=== PATIENT | female | born 1935 | race Caucasian/White ===

== ENCOUNTER → 2017-09-21 | Outpatient (CLI) | payer MEDICARE, MEDICAID, SELFPAY | PROVIDERS: Visit Provider Internal Medicine | DX: R06.02 Shortness of breath (principal); R93.1 Abnormal findings on diagnostic imaging of heart and coronary circulation; I36.1 Nonrheumatic tricuspid (valve) insufficiency; I27.20 Pulmonary hypertension, unspecified; E11.9 Type 2 diabetes mellitus without complications; I10 Essential (primary) hypertension | CPT/HCPCS: 78452; 93017; A9502; J2785 ==

== ENCOUNTER 2017-09-26 12:00 | Inpatient (IN) | payer MEDICARE, MEDICAID, SELFPAY | END 2017-09-29 11:17 | disposition home or self-care (01) | DRG 243 | PROVIDERS: Admitting Provider Internal Medicine Adolescent Medicine; Emergency Provider Family Medicine; Family Provider Internal Medicine Adolescent Medicine; Visit Provider Internal Medicine Adolescent Medicine | DX: I49.5 Sick sinus syndrome (principal); N39.0 Urinary tract infection, site not specified; E11.22 Type 2 diabetes mellitus with diabetic chronic kidney disease; N18.3 Chronic kidney disease, stage 3 (moderate); I25.119 Atherosclerotic heart disease of native coronary artery with unspecified angina pectoris; B96.20 Unspecified Escherichia coli [E. coli] as the cause of diseases classified elsewhere; I12.9 Hypertensive chronic kidney disease with stage 1 through stage 4 chronic kidney disease, or unspecified chronic kidney disease; Z45.02 Encounter for adjustment and management of automatic implantable cardiac defibrillator; Z72.0 Tobacco use; Z79.4 Long term (current) use of insulin | CPT/HCPCS: 33208; 36415; 71010; 76000; 80048; 80053; 81001; 82550; 82553; 82962; 84436; 84443; 84479; 84484; 85025; 85347; 87086; 87088; 87186; 92928; 93005; 93041; 93458; 96365; 96367; 96375; 99152; 99285; C1725; C1769; C1785; C1876; C1898; C9600; J1644; J2405; Q9967 ==

== ENCOUNTER → 2018-01-03 12:51 | Outpatient (CLI) | payer MEDICARE, MEDICAID, SELFPAY ==
--- NOTE | 2018-01-03 13:06 | US_ITS ---
US Arterial Ankle Brachial Ind COMPARISON: None HISTORY: Hypertension breast pain both legs diabetes, claudication both legs TECHNIQUE: Segmental blood pressure evaluation and Doppler waveforms of both legs. FINDINGS: The blood pressure right arm is 168. Pressures right leg show the thigh be 177 calf to 10 posterior tibia 190 dorsalis pedis 166 and digital pressure 137. The right JAKY is 1.0. The left brachial pressure is 163. Pressures left leg show the thigh be to moderate calf 227 posterior tibial noncompressible dorsalis pedis 160 and digital pressure 144. The left JAKY is 0.95. IMPRESSION: Essentially normal ABIs bilaterally borderline low digital pressures and noncompressible left posterior tibial likely due to significant arterial sclerotic calcification compatible with patient's known diabetes
== END ==
PROVIDERS: PCP Internal Medicine Adolescent Medicine; Visit Provider Internal Medicine
DX: M79.604 Pain in right leg (principal); M79.605 Pain in left leg; I70.213 Atherosclerosis of native arteries of extremities with intermittent claudication, bilateral legs
CPT/HCPCS: 93922

== ENCOUNTER 2019-02-04 15:17 | Emergency (ER) | payer MEDICARE, MEDICAID, SELFPAY ==
[2019-02-04 15:17] VITALS: BP 82/47; PULSE 72; RESP 18; TEMP 36.6; O2SAT 99; BMI 26.5
--- NOTE | 2019-02-04 15:28 | CT_ITS ---
CT head/brain wo con HISTORY: ITS.REASON: sudden onset of dizziness ORDERING PHYSICIAN: Mark Magaña MD PATIENT AGE: 83 years COMPARISON: None TECHNIQUE: Axial images obtained without contrast. Brain and bone windows reviewed. All CT scans at the facility use one or more dose reduction, viz: automated exposure control, ma/kV adjustment per patient size (including targeted exams where dose is matched to indication, i.e. head), or iterative reconstruction technique. FINDINGS: No midline shift, mass effect, intracranial hemorrhage, hydrocephalus, or extra-axial fluid collection is evident. There is prominence of the supravermian cistern. There is a cavum septa pellucida present as a normal variant There are mild periventricular ischemic gliotic changes. The calvarium has an unremarkable appearance. No mastoid effusion. No sinus air-fluid levels.. IMPRESSION: No change with no acute intracranial findings. Please see above for details
--- NOTE | 2019-02-04 15:28 | XR_ITS ---
XR acute abdomen series HISTORY: ITS.REASON: dizzy and nausea ORDERING PHYSICIAN: Mark Magaña MD PATIENT AGE: 83 years COMPARISON: None TECHNIQUE: Upright view of the chest is performed along with upright and supine views of the abdomen and pelvis. FINDINGS: An upright view of the chest shows no acute cardiac or pulmonary pathology. The lungs are clear. Cardiac pacemaker is present from left subclavian approach. Nonspecific nonobstructive bowel gas pattern multiple calcifications are present in the left upper quadrant and in the left aspect pelvis. No free air. IMPRESSION: No acute finding
--- NOTE | 2019-02-04 15:30 | HMH.EDDIZZ ---
ED Disposition Clinical Impression: Pre-syncope, Coronary artery disease, Diabetes, Cardiogenic shock, Acute renal insufficiency, Anemia Disposition: Xfer Short-Term Hosp Condition on Discharge: Fair Referrals: Alexy Rivera MD [Primary Care Provider] - Forms: Transfer Record - ED - Critical Care Critical Care Time: No Attestation: On 02/04/19, the high probability of a clinically significant, sudden or life threatening deterioration of the following system(s) required my full and direct attention, intervention and personal management. The time I documented below is in addition to time spent performing reported procedures but includes the following listed in this critical care notation. Medical Decision Making - Thomas Inquiry Pt receiving controlled substance: No Thomas was queried for this patient: No Vital Signs: 02/04/19 15:17 02/04/19 16:17 02/04/19 16:30 Temperature 97.8 F Temperature Source Oral Pulse Rate [Left Radial] 72 70 65 Respiratory Rate 18 20 Blood Pressure [Right Arm] 82/47 L 69/41 L 73/39 L Blood Pressure Mean [Right Arm] 58 50 50 Blood Pressure Source [Right Arm] Automatic Cuff Automatic Cuff Blood Pressure Position [Right Arm] Sitting Sitting 02 Sat by Pulse Oximetry 99 99 93 L Oxygen Delivery Method Room Air Room Air 02/04/19 17:24 Temperature Temperature Source Pulse Rate [Left Radial] 70 Respiratory Rate Blood Pressure [Right Arm] 69/40 L Blood Pressure Mean [Right Arm] 49 Blood Pressure Source [Right Arm] Automatic Cuff Blood Pressure Position [Right Arm] Sitting 02 Sat by Pulse Oximetry 100 Oxygen Delivery Method Room Air - Lab Data Lab Results 02/04/19 15:23: WBC 9.3, RBC 3.60 L, Hgb 10.1 L, Hct 30.4 L, MCV 84.4, MCH 28.1, MCHC 33.3, RDW 14.7, Plt Count 216, MPV 7.3 L, Neut % (Auto) 69.6, Lymph % (Auto) 24.4, [place] % (Auto) 3.5, Eos % (Auto) 2.3, Baso % (Auto) 0.2, Neut # (Auto) 6.5, Lymph # (Auto) 2.3, [place] # (Auto) 0.3, Eos # (Auto) 0.2, Baso # (Auto) 0.0 02/04/19 15:23: Sodium 132 L, Potassium 4.6, Chloride 99, Carbon Dioxide 17 L, Anion Gap 20.6 H, BUN 43 H, Creatinine 2.32 H, Estimated Creat Clear 20, Estimated GFR 20 L, Est GFR ( Amer) 24 L, Glucose 225 H, Calcium 8.5, Magnesium 1.0 L, Total Bilirubin 0.2, AST 11 L, ALT 17, Alkaline Phosphatase 77, Total Creatine Kinase 32, CK-MB (CK-2) < 0.5, CK-MB (CK-2) Rel Index 1.6, Troponin I < 0.02, Total Protein 7.1, Albumin 3.5, Globulin 3.6 H, Albumin/Globulin Ratio 1.0 L, Lipase 21 L 02/04/19 15:23: B-Natriuretic Peptide 164 H 02/04/19 15:45: Urine Color Yellow, Urine Appearance Clear, Urine pH 5.5, Ur Specific [place] 1.020, Urine Protein Trace, Urine Glucose (UA) Negative, Urine Ketones Negative, Urine Blood Negative, Urine Nitrate Negative, Urine Bilirubin Negative, Urine Urobilinogen 0.2, Ur Leukocyte Esterase Trace, Urine WBC 10-20, Ur Squamous Epith Cells 3-5, Amorphous Sediment 1+, Urine Bacteria 2+ Result diagrams: 02/04/19 15:23 02/04/19 15:23 Orders (Tests/Meds): ED MEDICATIONS Generic Name Dose Route Start Last Admin Trade Name Freq PRN Reason Stop Dose Admin Sodium Chloride 1,000 mls @ 999 mls/hr 02/04/19 15:45 02/04/19 15:52 Sod Chlor 0.9% 1000ml Bag IV 02/04/19 16:45 999 mls/hr .Q1H1M VALENTINA Administration Sodium Chloride 1,000 mls @ 150 mls/hr 02/04/19 16:45 02/04/19 16:34 Sod Chlor 0.9% 1000ml Bag IV 03/06/19 16:44 150 mls/hr .Q6H40M VALENTINA Administration Sodium Chloride 1,000 mls @ 150 mls/hr 02/04/19 16:45 Sod Chlor 0.9% 1000ml Bag IV 03/06/19 16:44 .Q6H40M VALENTINA Norepinephrine Bitartrate 8 mg 258 mls @ 3.87 mls/hr 02/04/19 18:00 02/04/19 17:50 / Dextrose IV 03/06/19 17:59 2 mcg/min .Q24H VALENTINA 3.87 mls/hr Administration Protocol 2 MCG/MIN Magnesium Oxide 400 mg 02/04/19 21:00 Mag-Ox 400mg Tab PO 03/06/19 20:59 BID VALENTINA Discontinued Medications Generic Name Dose Route Start Last Admin Trade Name Freq PRN Reason
--- NOTE | 2019-02-04 15:33 | ED_ITS ---
ED Disposition Clinical Impression: Pre-syncope, Coronary artery disease, Diabetes, Cardiogenic shock, Acute renal insufficiency, Anemia Disposition: Xfer Short-Term Hosp Condition on Discharge: Fair Referrals: Alexy Rivera MD [Primary Care Provider] - Forms: Transfer Record - ED - Critical Care Critical Care Time: No Attestation: On 02/04/19, the high probability of a clinically significant, sudden or life threatening deterioration of the following system(s) required my full and direct attention, intervention and personal management. The time I documented below is in addition to time spent performing reported procedures but includes the following listed in this critical care notation. Medical Decision Making - Thomas Inquiry Pt receiving controlled substance: No Thomas was queried for this patient: No Vital Signs: 02/04/19 15:17 02/04/19 16:17 02/04/19 16:30 Temperature 97.8 F Temperature Source Oral Pulse Rate [Left Radial] 72 70 65 Respiratory Rate 18 20 Blood Pressure [Right Arm] 82/47 L 69/41 L 73/39 L Blood Pressure Mean [Right Arm] 58 50 50 Blood Pressure Source [Right Arm] Automatic Cuff Automatic Cuff Blood Pressure Position [Right Arm] Sitting Sitting 02 Sat by Pulse Oximetry 99 99 93 L Oxygen Delivery Method Room Air Room Air 02/04/19 17:24 Temperature Temperature Source Pulse Rate [Left Radial] 70 Respiratory Rate Blood Pressure [Right Arm] 69/40 L Blood Pressure Mean [Right Arm] 49 Blood Pressure Source [Right Arm] Automatic Cuff Blood Pressure Position [Right Arm] Sitting 02 Sat by Pulse Oximetry 100 Oxygen Delivery Method Room Air - Lab Data Lab Results 02/04/19 15:23: WBC 9.3, RBC 3.60 L, Hgb 10.1 L, Hct 30.4 L, MCV 84.4, MCH 28.1, MCHC 33.3, RDW 14.7, Plt Count 216, MPV 7.3 L, Neut % (Auto) 69.6, Lymph % (Auto) 24.4, [place] % (Auto) 3.5, Eos % (Auto) 2.3, Baso % (Auto) 0.2, Neut # (Auto) 6.5, Lymph # (Auto) 2.3, [place] # (Auto) 0.3, Eos # (Auto) 0.2, Baso # (Auto) 0.0 02/04/19 15:23: Sodium 132 L, Potassium 4.6, Chloride 99, Carbon Dioxide 17 L, Anion Gap 20.6 H, BUN 43 H, Creatinine 2.32 H, Estimated Creat Clear 20, Estimated GFR 20 L, Est GFR ( Amer) 24 L, Glucose 225 H, Calcium 8.5, Magnesium 1.0 L, Total Bilirubin 0.2, AST 11 L, ALT 17, Alkaline Phosphatase 77, Total Creatine Kinase 32, CK-MB (CK-2) < 0.5, CK-MB (CK-2) Rel Index 1.6, Troponin I < 0.02, Total Protein 7.1, Albumin 3.5, Globulin 3.6 H, Albumin/Globulin Ratio 1.0 L, Lipase 21 L 02/04/19 15:23: B-Natriuretic Peptide 164 H 02/04/19 15:45: Urine Color Yellow, Urine Appearance Clear, Urine pH 5.5, Ur Specific [place] 1.020, Urine Protein Trace, Urine Glucose (UA) Negative, Urine Ketones Negative, Urine Blood Negative, Urine Nitrate Negative, Urine Bilirubin Negative, Urine Urobilinogen 0.2, Ur Leukocyte Esterase Trace, Urine WBC 10-20, Ur Squamous Epith Cells 3-5, Amorphous Sediment 1+, Urine Bacteria 2+ Result diagrams: 02/04/19 15:23 02/04/19 15:23 Orders (Tests/Meds): ED MEDICATIONS Generic Name Dose Route Start Last Admin Trade Name Freq PRN Reason Stop Dose Admin Sodium Chloride 1,000 mls @ 999 mls/hr 02/04/19 15:45 02/04/19 15:52 Sod Chlor 0.9% 1000ml Bag IV 05
--- NOTE | 2019-02-04 15:34 | PC.NURSE ---
notified of pt having neck pain
--- NOTE | 2019-02-04 15:39 | CT_ITS ---
CT CERVICAL SPINE WITHOUT CONTRAST CT RECONSTRUCTIONS HISTORY:Dizziness and neck pain ORDERING PHYSICIAN: Mark Magaña MD PATIENT AGE: 83 years COMPARISON: None Technique: All CT scans at the facility use one or more dose reduction, viz: automated exposure control, ma/kV adjustment per patient size (including targeted exams where dose is matched to indication, i.e. head), or iterative reconstruction technique PROCEDURE: Axial spiral CT scanning performed of the cervical spine beginning at the base of the skull and continuing to the upper T-spine. 3-D multiplanar reconstruction with 3-D manipulation of volumetric data set in image rendering was completed by the radiologist and/or technologist with the supervision of the radiologist on independent workstation. FINDINGS: Normal alignment. No fracture or dislocation. C2-C3: Unremarkable. C3-C4: Degenerative disc disease. C4-C5: Degenerative disc. C5-C6: Degenerative disc disease with uncovertebral hypertrophic change with left foraminal narrowing. C6-C7: Unremarkable. C7-T1: Mild anterolisthesis of C7 with mild changes disease. There is slight decrease in height anteriorly at T1 and T3 unchanged from 09/14/18. There are fibrotic changes in the lung apices. IMPRESSION: Multilevel cervical spondylosis with degenerative changes as detailed above. No acute fracture.
[2019-02-04 15:44] LABS: Basophils % 0.2 % (0.1-2.0); Eosinophils # 0.2 K/mm3 (0.0-0.4); Eosinophils % 2.3 % (0.1-12.0); Hematocrit 30.4 % (37.0-47.0); Hemoglobin 10.1 g/dL (12.2-16.2); Lymphocytes # 2.3 K/mm3 (0.7-4.5); Lymphocytes % 24.4 % (10-50); Mean Corpuscular HGB Conc 33.3 g/dL (31.8-35.4); Mean Corpuscular Hemoglobin 28.1 pg (27.0-31.2); Mean Corpuscular Volume 84.4 fl (81-99); Mean Platelet Volume 7.3 fl (7.4-10.4); Monocytes # 0.3 K/mm3 (0.1-1.0); Monocytes % 3.5 % (1.7-9.3); Neutrophils # 6.5 K/mm3 (1.8-7.8); Neutrophils % 69.6 % (37.0-80.0); Platelet Count 216 K/mm3 (142-424); Red Cell Distribution Width 14.7 % (11.5-17.5); White Blood Count 9.3 K/mm3 (4.8-10.8)
[2019-02-04 15:50] LABS: Microscopic, Urine URINE MICROSCOPIC (MICROSCOPIC)
[2019-02-04 15:51] LABS: Appearance,Urine CLEAR (Clear); Bilirubin,Urine Negative (Negative); Blood, Urine Negative (Negative); Color,Urine YELLOW (Yellow); Glucose,Urine (UA) Negative (Negative); Ketones,Urine Negative (Negative); Leukocyte Esterase,Urine TRACE (Negative); Nitrate,Urine Negative (Negative); PH,Urine 5.5 (5.0-8.5); Protein,Urine TRACE (Negative); Urobilinogen,Urine 0.2 EU/dl (0.2)
[2019-02-04 16:02] LABS: Amorphous Sediment,Urine 1+ /lpf; Bacteria,Urine 2+ /lpf
[2019-02-04 16:06] LABS: Alanine Aminotransferase 17 U/L (12-78); Albumin Level 3.5 gm/dL (3.4-5.0); Alkaline Phosphatase 77 U/L (46-116); Anion Gap 20.6 mEq/L (5-15); Aspartate Amino Transferase 11 U/L (15-37); Bilirubin,Total 0.2 mg/dL (0.2-1.0); Blood Urea Nitrogen 43 mg/dL (7-18); Calcium 8.5 mg/dL (8.5-10.1); Carbon Dioxide 17 mmol/L (21.0-32.0); Chloride 99 mmol/L (98-107); Creatine Kinase 32 U/L (26-192); Creatinine Clearance Estimated 20 mL/min (50-200); Creatinine,Serum 2.32 mg/dL (0.55-1.02); Estimated Glomerular Filt Rate 20 ml/min (>60); GFR (African American) 24 ML/MIN (>60); Globulin 3.6 gm/dl (1.3-3.2); Glucose 225 mg/dL (74-106); Lipase 21 u/L (73-393); Potassium 4.6 mmoL/L (3.5-5.1); Sodium 132 mmol/L (136-145); Total Protein,Serum 7.1 gm/dL (6.4-8.2); Troponin I < 0.02 ng/ml (0.00-0.06)
[2019-02-04 16:07] LABS: CKMB Relative Index 1.6 U/L (0-4.0); Creatine Kinase MB < 0.5 ng/ml (0.0-3.6)
--- NOTE | 2019-02-04 16:08 | PC.NURSE ---
Pt returned from radiology.
--- NOTE | 2019-02-04 16:12 | PC.NURSE ---
aware of mag result
[2019-02-04 16:17] VITALS: BP 69/41; PULSE 70; RESP 20; O2SAT 99
[2019-02-04 16:30] VITALS: BP 73/39; PULSE 65; O2SAT 93
--- NOTE | 2019-02-04 16:39 | PC.NURSE ---
Dr. Magaña on phone with Dr. Keith.
--- NOTE | 2019-02-04 16:54 | PC.NURSE ---
Dr. Magaña is speaking to a MD at [facility].
--- NOTE | 2019-02-04 16:54 | PC.NURSE ---
Called [employer] to try to fly the patient. [place] the flight at 16[place]. [place] declined at 1653. RN aware. ER aware.
--- NOTE | 2019-02-04 16:59 | PC.NURSE ---
Called [employer] to try to transfer the patient. They declined.
--- NOTE | 2019-02-04 17:06 | PC.NURSE ---
Cassie notified to transfer patient to ER.
--- NOTE | 2019-02-04 17:08 | PC.NURSE ---
Called to try to transfer the patient. They declined the flight.
[2019-02-04 17:24] VITALS: BP 69/40; PULSE 70; O2SAT 100
--- NOTE | 2019-02-04 17:39 | PC.NURSE ---
ems at bedside for transfer. 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 pt is alert, responsive to voice, complaintof nausea and continued right neck pain and discomfort
--- NOTE | 2019-02-04 17:40 | PC.NURSE ---
Pt left with Fantasma URIBE and Bernice RN
--- NOTE | 2019-02-04 17:49 | PC.NURSE ---
MAgnesium unable to give due to pt vomiting
--- NOTE | 2019-02-04 18:03 | PC.NURSE ---
Dopamine drip increased by Zach HS to 27 ml hour.
[2019-02-04 18:06] VITALS: BP 72/36; PULSE 65; RESP 20; TEMP 36.6; O2SAT 98
[2019-02-08 15:20] LABS: POC Glucose,Bedside 235 (70-110)
== END 2019-02-04 18:09 | disposition short-term general hospital (02) ==
PROVIDERS: Emergency Provider Emergency Medicine; PCP Internal Medicine Adolescent Medicine
DX: R55 Syncope and collapse (principal); I25.10 Atherosclerotic heart disease of native coronary artery without angina pectoris; E11.9 Type 2 diabetes mellitus without complications; Z79.84 Long term (current) use of oral hypoglycemic drugs; N28.9 Disorder of kidney and ureter, unspecified; D64.9 Anemia, unspecified; E78.5 Hyperlipidemia, unspecified; I10 Essential (primary) hypertension; Z51.81 Encounter for therapeutic drug level monitoring; K21.9 Gastro-esophageal reflux disease without esophagitis
CPT/HCPCS: 70450; 72125; 74021; 80053; 81001; 82550; 82553; 82962; 83690; 83735; 83880; 84484; 85025; 87086; 93005; 96365; 96366; 96367; 96372; 96375; 99284; J2405

== ENCOUNTER → 2019-06-12 09:47 | Outpatient (CLI) | payer MEDICARE, MEDICAID, SELFPAY ==
--- NOTE | 2019-06-12 09:53 | US_ITS ---
APPROVED REPORT Exam Type: Lower Extremity Segmental Pressures Gerontological Nurse Practitioner: Lora Virk RDCS Indications Claudication: Rest Pain: Risk Factors Hypertension Hyperlipidemia Diabetes Pressures/Indices Right Indices Left Indices Brachial 154.00 mmHg Brachial 151.00 mmHg Low Thigh 186.00 mmHg 1.21 Low Thigh 164.00 mmHg 1.06 Calf 0.00 mmHg 0.00 Calf 198.00 mmHg 1.29 Ankle(PT) 175.00 mmHg 1.14 Ankle(PT) 244.00 mmHg 1.58 Ankle(DP) 173.00 mmHg 1.12 Ankle(DP) 214.00 mmHg 1.39 Digit 121.00 mmHg 0.79 Digit 139.00 mmHg 0.90 Findings R JAKY 1.14 L JAKY 1.6 R TBI .8 L TBI .9 WAVEFORMS NORMAL PULSES NORMAL RIGHT CALF NON COMPRESSABLE >254 Conclusion Elevated Left JAKY consistent with non compliant vessels Normal Rt JAKY Electronically signed by : Chalo Oh MD 06/16/2019 17:23:12
== END ==
PROVIDERS: PCP Internal Medicine Adolescent Medicine; Visit Provider Internal Medicine Critical Care Medicine
DX: I70.211 Atherosclerosis of native arteries of extremities with intermittent claudication, right leg (principal)
CPT/HCPCS: 93923

== ENCOUNTER 2020-11-09 18:03 | Emergency (ER) | payer MEDICARE, MEDICAID, SELFPAY ==
[2020-11-09 18:18] VITALS: BP 143/109; PULSE 119; RESP 18; TEMP 36.4; O2SAT 99; BMI 27.4
[2020-11-09 18:20] VITALS: BP 143/109; PULSE 119; RESP 18; TEMP 36.4; O2SAT 99; BMI 27.4
--- NOTE | 2020-11-09 18:21 | XR_ITS ---
PROCEDURE: XR SHOULDER RT MIN 2V Referring Doctor: Bill Aruna Patient Age:85Y CLINICAL INDICATION: pain right shoulder for several days COMPARISON: No exams were available for comparison FINDINGS: Right shoulder3 view: AP internal and external rotation along with Y-view performed. No acute fracture or dislocation at right shoulder. The humeral head and neck are intact. Satisfactory glenohumeral relationships. No dislocation. AC joint intact little if any degenerative change but diffuse demineralization noted. [place] right lung clear. Right scapula unremarkable. Degenerative changes the lower C-spine noted IMPRESSION: Right shoulder intact with no acute findings. Only question scant degenerative changes AC joint Incidental degenerative changes throughout lower C-spine noted Dictated by: Sandip Ruff MD 11/10/2020 09:15 Sandip Ruff MD in [place] 11/10/2020 09:15
--- NOTE | 2020-11-09 18:56 | HMH.EDUTC ---
[facility] [place] Impression: Right shoulder pain Qualifiers: Chronicity: acute Qualified Code(s): M25.511 - Pain in right shoulder Disposition: Home, Self-Care Condition on Discharge: Good Instructions: DI for Shoulder Pain Prescriptions: methylPREDNISolone [Medrol 4mg tab] 4 mg PO DIRECTED #21 tab Transmission Status: Pending to [facility] Tizanidine HCl [Zanaflex 4mg tablet] 4 mg PO TID PRN 10 Days #30 tab PRN Reason: Muscle Pain Transmission Status: Pending to [facility] Referrals: Alexy Rivera MD [Primary Care Provider] - Time of Disposition: 19:00 Medical Decision Making - Thomas Inquiry Pt receiving controlled substance: No Vital Signs: 11/09/20 18:18 11/09/20 18:20 Temperature 97.6 F 97.6 F Temperature Source Oral Oral Pulse Rate [Left Radial] 119 H 119 H Respiratory Rate 18 18 Blood Pressure [Left Arm] 143/109 H 143/109 H Blood Pressure Mean [Left Arm] 120 120 Blood Pressure Source [Left Arm] Automatic Cuff Automatic Cuff Blood Pressure Position [Left Arm] Sitting Sitting 02 Sat by Pulse Oximetry 99 99 Oxygen Delivery Method Room Air Room Air Orders (Tests/Meds): ED MEDICATIONS Discontinued Medications Generic Name Dose Route Start Last Admin Trade Name Freq PRN Reason Stop Dose Admin Methylprednisolone Acetate 40 mg 11/09/20 18:53 Methylprednisolone Acetate 40mg/Ml Vial IM 11/09/20 18:54 ONCE ONE Orphenadrine Citrate 30 mg 11/09/20 18:54 Orphenadrine Citrate 60mg/2ml Vial IM 11/09/20 18:55 ONCE ONE ORDERS Category Date Time Status XR shoulder RT min 2V Stat Exams 11/09/20 18:21 Taken - Radiology Data #1 Image(s): Shoulder Image Reviewed: Yes I reviewed the patient's radiology image Preliminary Findings: No Fracture [place] [facility] [place] - General Stated complaint: right shoulder pain Time Seen by Provider: 11/09/20 18:56 Mode of Arrival: Ambulatory Source of Information: Patient Limitations: No Limitations Description of Symptoms (Recalled from Triage Doc. by RN): Pt c/o R shoulder pain for approx 1 week. Pt denies injury. Pt reports has seen her pcp for pain twice with no improvement. HEENT Symptoms (Recalled from RN notes): No Resp Symptoms (Recalled from RN notes): No Skin Symptoms (Recalled from RN notes): No MS Symptoms (Recalled from RN notes): Yes Functional Status (Recalled from RN notes): WNL - History of Present Illness Provider Complaint: Patient complains of right shoulder pain. It has hurt for about 2 weeks. No injury. She states it feels like a toothache. If she squeezes it hard, she has increased pain but then the pain subsides. If she lets to, it hurts again. No numbness or tingling down her arm. Has tried Tylenol, NSAIDs, topical creams without relief. Onset (ago): week(s) (2) Location: right, upper extremity Quality: stabbing, aching Exacerbating factors: movement Associated symptoms: denies other symptoms Treatments prior to arrival: NSAID - Related Data Home Medications Medication Instructions Recorded Confirmed aspirin 81 mg tablet,delayed 81 mg PO QDAY 10/05/17 11/05/20 release atorvastatin 10 mg tablet 10 mg PO QDAY 10/05/17 11/05/20 bupropion HCl 150 mg 24 hr tablet, 150 mg PO QAM 10/05/17 11/05/20 extended release esomeprazole magnesium 40 mg 44.6 mg PO QDAY cap 10/05/17 11/05/20 capsule,delayed release gabapentin 100 mg capsule 100 mg PO QDAY 10/05/17 11/05/20 insulin aspart U-100 100 unit/mL 4 unit SUB-Q QDAY ml 10/05/17 11/05/20 subcutaneous solution insulin glargine 100 unit/mL (3 12 unit SUB-Q QDAY 10/05/17 11/05/20 mL) subcutaneous pen levothyroxine 25 mcg capsule 25 mcg PO QDAY cap 10/05/17 11/05/20 metformin 1,000 mg tablet 1,000 mg PO BID 10/05/17 11/05/20 oxybutynin chloride 5 mg tablet 5 mg PO DAILY tab 10/05/17 11/05/20 sertraline 100 mg tablet 100 mg PO QDAY 10/05/17 11/05/20 Docusate Sodium [Colace] 100 mg PO QDAY 05/25/1811/05
[2020-11-09 19:17] VITALS: BP 143/109; PULSE 119; RESP 18; TEMP 36.4; O2SAT 99
== END 2020-11-09 19:30 | disposition home or self-care (01) ==
PROVIDERS: Emergency Provider Physician Assistant; PCP Internal Medicine Adolescent Medicine
DX: M25.511 Pain in right shoulder (principal); K08.89 Other specified disorders of teeth and supporting structures; I25.10 Atherosclerotic heart disease of native coronary artery without angina pectoris; K21.9 Gastro-esophageal reflux disease without esophagitis; I10 Essential (primary) hypertension; I73.9 Peripheral vascular disease, unspecified; I48.91 Unspecified atrial fibrillation; Z79.899 Other long term (current) drug therapy
CPT/HCPCS: G0463; 73030; 96372; 99202; J1030

== ENCOUNTER → 2020-11-12 13:22 | Outpatient (CLI) | payer MEDICARE, MEDICAID, SELFPAY ==
--- NOTE | 2020-11-12 13:25 | CA_ITS ---
APPROVED REPORT EXAM: Comprehensive 2D, Doppler, and color-flow Echocardiogram Dump Truck Driver Off Highway: Jasmin Coates RT(R) Ht: 5 ft 3 in Wt: 156lbs BSA: 1.74 BP: 146/95 mmHg Indications: SOB, DM, HTN, hyperlipidemia, AFIB, CAD, PHTN, PAD, GERD 2D Dimensions LVOT 1.86 cm (M/F) 1.5-2.5 M-Mode Dimensions RVDd 3.23 cm (0.9-2.6) LA Diam 4.20 cm (1.9-4.0) LVDd 3.79 cm (3.5-5.7) Ao Diam 2.95 cm (2.0-3.7) LVDs 2.95 cm (3.5-5.7) IVSd 1.13 cm (0.6-1.1) PWd 0.81 cm (0.6-1.1) EF (Teich) 45.50% FS 22.20% EDV (Teich) 61.60 mL ESV (Teich) 33.60 mL Tricuspid Valve TR P. Velocity 215.00 cm/s RAP Estimate 15.00 mmHg RVSP 33.50 mmHg Left Ventricle Technically difficult study because of the patient fact in poor acoustic windows. Left atrium is moderately enlarged, left ventricle is mildly dilated, there is reduced left ventricular systolic function, visually estimated ejection fraction 40%, left ventricle is globally hypokinetic, Doppler evidence of raise left ventricular end-diastolic pressure. Right Ventricle Right atrium and right ventricle moderately enlarged, contractility of the right ventricle appears to be normal. Aortic Valve Aortic valve is minimally thickened and fibrosed. There is no aortic stenosis or aortic insufficiency. Mitral Valve Mitral valve leaflets are minimally thickened, there is no mitral stenosis, there is mild mitral regurgitation. Tricuspid Valve Tricuspid valve is grossly normal, there is moderate to severe tricuspid regurgitation, tricuspid regurgitation jet velocity is inadequate for calculation of the right ventricular systolic pressure. Pulmonic Valve Pulmonic valve is poorly visualized. Great Vessels Aortic root is normal size. Pericardium There is small pericardial effusion noted. Conclusion 1. Biatrial enlargement, normal left ventricular size, reduced left ventricular systolic function, visually estimated ejection fraction 40% left ventricle is globally hypokinetic, Doppler evidence of raise left ventricular end-diastolic pressure. 2. Moderately enlarged right ventricle with normal contractility. 3. Mild mitral and moderate to severe tricuspid regurgitation, tricuspid regurgitation jet velocity is inadequate for calculation of the right ventricular systolic pressure. 4. Small pericardial effusion noted. Electronically signed by : Luis Wylie, 11/12/2020 20:56:10
== END ==
PROVIDERS: PCP Internal Medicine Adolescent Medicine; Visit Provider Urology
DX: I10 Essential (primary) hypertension; I25.10 Atherosclerotic heart disease of native coronary artery without angina pectoris; I27.20 Pulmonary hypertension, unspecified; I48.91 Unspecified atrial fibrillation; I73.9 Peripheral vascular disease, unspecified; Z95.0 Presence of cardiac pacemaker; E78.49 Other hyperlipidemia
CPT/HCPCS: 93306

== ENCOUNTER 2020-11-18 10:13 | Observation (INO) | payer MEDICARE, MEDICAID, SELFPAY ==
[2020-11-18] VITALS (22 sets, daily range): BP systolic 116–182; BP diastolic 62–124; PULSE 80–137; RESP 19–26; TEMP 36.7–37.1; O2SAT 95–100; BMI 28.8
--- NOTE | 2020-11-18 10:20 | PC.NURSE ---
patient arrived to floor by wheelchair
--- NOTE | 2020-11-18 10:46 | HMH.PHAVTE ---
[facility] Pharmacy VTE Monitoring - Patient Demographics Admission date: 11/18/20 Report Date: 11/18/20 Time: 10:46 Allergies/Adverse Reactions: Patient Allergies No Known Allergies Allergy (Verified 11/18/20 09:32) Height: 1.6 m Weight: 73.737 kg - Prophylaxis VTE Prophylaxis Ordered?: Yes Types of VTE Prophylaxis: TEDS Knee High Location of Applied Device: Bilateral Lower Extremeties
--- NOTE | 2020-11-18 11:04 | CT_ITS ---
PROCEDURE: CT ANGIO CHEST CLINCIAL INDICATION: soa, rule out PE COMPARISON: CT CHESTWO CT chest wo con from 09/14/2018 TECHNIQUE: IV Contrast: 70ML Isovue 370 Axial images obtained with sagittal and coronal reformats. All CT scans at the facility use one or more dose reduction, viz: automated exposure control, ma/kV adjustment per patient size (including targeted exams where dose is matched to indication, i.e. head), or iterative reconstruction technique. FINDINGS: Pleural effusion and atelectasis at the inferior aspect of the right lower lobe. There is irregular thickening of the midportion right major fissure which could represent atelectasis, small amount of pleural fluid however follow-up imaging to confirm resolution is recommended. The remaining right and left lung loredo are clear. There is no pulmonary embolus. There is no suspicious of mediastinal adenopathy. There is reflux of contrast into the hepatic veins which can be associated with right heart failure. There is a small hiatal hernia. There is a moderate amount of free fluid in the upper abdomen. There is extensive edema in the upper abdominal superficial fat findings suggest anasarca. There are cystic lesions in the left kidney. There is complete fatty replacement of the pancreas. There is scattered atherosclerosis. There is exaggerated kyphosis of the upper spine and mild compression deformity of an upper thoracic vertebrae, old IMPRESSION: One. Negative for pulmonary embolus. Two. Moderate right pleural effusion with atelectasis, follow up to ensure resolution recommended. Three. Ascites/free fluid. Four. Suspected congestive heart failure and suggestive of anasarca. Dictated by: Rose Mallory MD 11/18/2020 15:53 Rose Mallory MD in [place] 11/18/2020 15:53
--- NOTE | 2020-11-18 11:23 | HMH.PNCARD ---
Subjective Date: 11/18/20 Time: 11:23 Principal diagnosis: afib with RVR, SOB Interval history: The patient was seen in cardiology clinic today. Note as follows Pt here for follow up on afib and echo. ECHO showed: 1. Biatrial enlargement, normal left ventricular size, reduced left ventricular systolic function, visually estimated ejection fraction 40% left ventricle is globally hypokinetic, Doppler evidence of raise left ventricular end-diastolic pressure. 2. Moderately enlarged right ventricle with normal contractility. 3. Mild mitral and moderate to severe tricuspid regurgitation, tricuspid regurgitation jet velocity is inadequate for calculation of the right ventricular systolic pressure. 4. Small pericardial effusion noted. CAD is present. [facility] 2018 Denies cp and pressure since last visit states that she feels her heart racing in her neck, she also complaints of neck and shoulder pain on the R side. She states her HR has not gotten any better since her last visit. She states she took her last bisoprolol last night and needs a refill. she states increasing the dose did not help with her palps and tachcyardia. SOB is present and worse since last visit, she is very sob with talking. she is unable to talk in complete sentences due to her SOB. this is worse with exertion. improves some with rest but does not completely resolve. BP is high today. Weight is stable. A-fib with RVR is present today. A/C with Eliquis. PPM in place and last D/L 11/05/2020 showed high v-rates. Battery 5-7 years.Pt had not had PPM checked for almost 2 years. PAD is present. LDL goal is < 55, LDL is not on file. Managed by PCP. pt is on a statin. EKG is Atrial fibrillation with rapid ventrciular response, rightward axis, low voltage QRS, cannot rule out anterior infarct, age undetermined, ST and T wave abnormality, consider inferolateral ischemia or digitalis effect, rate is 129 bpm. Due to her atrial fibrillation with RVR and severe dyspnea with minimal exertion and rest, will get her admitted today to the hospital with plans for rate control of afib with RVR with a cardizem drip. Discussed this with Dr. Keith, he recommends a cardizem drip and states she should tolerate this well even with EF 40% Will also obtain CTA of the chest to rule out a PE. Will get labs and serial troponins. Dr. Rivera aggreed to admit patient. RTC 1 week after hospital stay. Exam I & O for Last 24 hours: Intake & Output 11/15/20 11/16/20 11/17/20 11/18/20 23:59 23:59 23:59 23:59 Weight 162 lb 9 oz - Constitutional no acute distress, average body habitus - *Routine HEENT Exam Head: Present: normocephalic, atraumatic Eye: Present: EOMI, PERRL ENT: Present: mucous membranes moist - *Routine Neck Exam Present: supple, full ROM, normal carotid upstroke. Absent: JVD, carotid bruit, lymphadenopathy - *Routine Respiratory Exam Present: CTA bilaterally, other (labored breathing and tachypneic) - *Routine Cardiovascular Exam Present: Normal S1, Normal S2, tachycardia, irregularly irregular. Absent: murmur - *Routine Abdominal Exam Present: soft, normoactive bowel sounds. Absent: tenderness, distended - *Routine Extremities Exam Present: full ROM, pulses intact, normal capillary refill. Absent: cyanosis, clubbing, edema - *Routine Skin Exam Present: intact, warm. Absent: erythema, rash - *Routine Neurological Exam Present: alert, oriented X3, CN II-XII intact. Absent: sensory deficit, motor deficit - Routine Psychiatric Exam Present: normal affect, normal thought process Progress Note: A&P (1) Atrial fibrillation with RVR Status: Acute (2) SOB (shortness of breath) on exertion Status: Acute (3) HLD (hyperlipidemia) Status: Chronic (4) Cardiac pacemaker in situ Status: Chronic (5) HTN (hypertension) Status: Chronic (6) Pulmonary HTN Status: Chronic (7) Coronary artery disease Status: Chronic (8) Cardiomyopath
[2020-11-18 13:27] LABS: Basophils % 0.2 % (0.1-2.0); Eosinophils # 0.1 K/mm3 (0.0-0.4); Eosinophils % 0.5 % (0.1-12.0); Hematocrit 32.1 % (37.0-47.0); Hemoglobin 10.8 g/dL (12.2-16.2); Lymphocytes # 1.8 K/mm3 (0.7-4.5); Lymphocytes % 15.5 % (10-50); Mean Corpuscular HGB Conc 33.7 g/dL (31.8-35.4); Mean Corpuscular Hemoglobin 29.6 pg (27.0-31.2); Mean Corpuscular Volume 87.8 fl (81-99); Mean Platelet Volume 7.7 fl (7.4-10.4); Monocytes # 0.7 K/mm3 (0.1-1.0); Monocytes % 6.3 % (1.7-9.3); Neutrophils % 77.6 % (37.0-80.0); Platelet Count 218 K/mm3 (142-424); Red Blood Count 3.66 M/mm3 (4.20-5.40); Red Cell Distribution Width 15.6 % (11.5-17.5); White Blood Count 11.6 K/mm3 (4.8-10.8)
[2020-11-18 13:28] LABS: Chloride 109 mmol/L (98-107); Potassium 3.9 mmoL/L (3.5-5.1); Sodium 139 mmol/L (136-145)
[2020-11-18 13:30] LABS: Blood Urea Nitrogen 23 mg/dl (7-17); Creatinine Clearance Estimated 41 mL/min (50-200); Estimated Glomerular Filt Rate 43 ml/min (>60); GFR (African American) 52 ML/MIN (>60)
[2020-11-18 13:31] LABS: Alanine Aminotransferase 12 U/L (12-78); Albumin Level 3.7 g/dl (3.5-5.0); Alkaline Phosphatase 92 U/L (38-126); Anion Gap 10.9 mEq/L (5-15); Aspartate Amino Transferase 24 U/L (14-36); Bilirubin,Direct 0.3 mg/dl (0.0-0.4); Bilirubin,Indirect 0.9 mg/dL (0.0-0.9); Bilirubin,Total 1.2 mg/dl (0.2-1.3); Bilirubin,Unconjugated 0.9 mg/dL (0.0-1.1); Calcium 9.4 mg/dl (8.4-10.2); Carbon Dioxide 23 mmol/L (22.0-30.0); Glucose 82 mg/dl (74-100); Total Protein,Serum 6.6 g/dl (6.3-8.2)
[2020-11-18 13:32] LABS: Magnesium 1.4 mg/dl (1.6-2.3)
[2020-11-18 13:44] LABS: Troponin I < 0.01 ng/ml (0.00-0.034)
--- NOTE | 2020-11-18 13:58 | HMH.PHAINT ---
HOME MEDICATION LIST COMPLETED USING LISTS FROM HER HOME PHARMACY, CARDIOLOGY OFFICE AND DR SALES'S OFFICE. NURSE IS ALSO GOING TO CONFIRM WITH FAMILY.
[2020-11-18 14:02] LABS: Thyroid Stimulating Hormone 5.13 uIU/mL (0.465-4.68)
[2020-11-18 14:07] LABS: Free T4 (Free Thyroxine) 1.81 ng/dl (0.78-2.19)
--- NOTE | 2020-11-18 14:25 | PC.NURSE ---
1312 - J Victor Manuel notified that pt's HR continues to be in 120's. BP 148/107 Orders received to increased cardizem gtt to 20 mg/hr. Gtt titrated per orders.
--- NOTE | 2020-11-18 14:26 | PC.NURSE ---
CTA pushed back d/t not having IV access in AC. S BRANDYN Aaron obtained #20g in R upper forearm, verified w/ Niesha in CT that IV is acceptable for test @ 8554.
--- NOTE | 2020-11-18 15:04 | HMH.HP ---
*Admission Date: 11/18/20 *History of present illness: Chief Complaint: No weight change Here for test f/u Denies cp and pressure since last visit but states that she feels her heart racing in her neck, she also complaints of neck and shoulder pain on the R side. Denies dizziness and lightheadedness SOB is unchanged, she states that this is getting worse since last visit Denies swelling and numbness Daytime fatigue and weakness are present, she states that is very weak and tired, her energy level is low. She states that is not sleeping at night due to being so dyspnea. Above note per cardiology clinic, cardiology called me and asked to admit to my service. Plan will be to admit for Carolynn neff given her atrial fibrillation. Given her dyspnea we will also work-up for PE. Patient states that she feels better now that she is been admitted to hospital. [facility] History I have reviewed the patient's past medical history: Yes Medical History: Reports:: Coronary Artery Disease, Diabetes Mellitus Type 2, Gastroesophageal Reflux Disease(GERD), Hyperlipidemia, Hypertension, Internal Pacemaker Denies:: Cancer, Diabetes Mellitus Type 1, MRSA, Seizures *Have you ever received a pneumonia vaccine?: Yes *Have you received a flu vaccine this season?: Yes Other Medical History: Reports: Other. Denies: Blood Transfusion Reaction Other Surgeries: Yes: Cardiac Catheterization (01/28/18 1 stent), Pacemaker, Other Amputation: No Fractures: No - *Social History Smoking Status: Never smoker Alcohol Intake: never Alcohol Intake Frequency:: other *Occupational Status:: other Housing: house Household Members: spouse *Travel in the last 8 weeks: None Family Hx:: Heart Attack, Hypertension Review of Systems - Review of Systems Review of systems:: pertinent systems reviewed and negative unless documented below No GI or symptoms. Tachypnea, tachycardia noted. Meds Home Medications Medication Instructions Recorded Confirmed Type aspirin 81 mg tablet,delayed 81 mg PO DAILY 10/05/17 11/18/20 History release atorvastatin 10 mg tablet 10 mg PO HS 10/05/17 11/18/20 History bupropion HCl 150 mg 24 hr tablet, 150 mg PO DAILY 10/05/17 11/18/20 History extended release gabapentin 100 mg capsule 100 mg PO DAILY 10/05/17 11/18/20 History insulin aspart U-100 100 unit/mL 4 unit SUB-Q QDAY ml 10/05/17 11/18/20 History subcutaneous solution insulin glargine 100 unit/mL (3 15 unit SQ DAILY 10/05/17 11/18/20 History mL) subcutaneous pen metformin 1,000 mg tablet 1,000 mg PO BID 10/05/17 11/18/20 History oxybutynin chloride 5 mg tablet 5 mg PO DAILY tab 10/05/17 11/18/20 History sertraline 100 mg tablet 50 mg PO DAILY 10/05/17 11/18/20 History Docusate Sodium [Colace] 100 mg PO DAILY 05/25/18 11/18/20 History lisinopril 10 1 tab PO DAILY #90 tab 10/24/18 11/18/20 Rx mg-hydrochlorothiazide 12.5 mg tablet verapamil 240 mg 24 hr 240 mg PO DAILY cap 11/05/20 11/18/20 History capsule,extended release Tizanidine HCl [Zanaflex 4mg 4 mg PO TID PRN 10 Days #30 tab 11/09/20 11/18/20 Rx tablet] Apixaban [Eliquis] 5 mg PO BID 11/18/20 11/18/20 History Cetirizine HCl 5 mg PO DAILY 11/18/20 11/18/20 History Ferrous Sulfate [Ferrous Sulfate 325 mg PO DAILY 11/18/20 11/18/20 History 325mg Tab] Isosorbide Mononitrate [Imdur 30mg 30 mg PO DAILY 11/18/20 11/18/20 History ER tablet] Levothyroxine Sodium 50 mcg PO DAILY 11/18/20 11/18/20 History [Levothyroxine 50mcg (0.05mg) Tab] Mirabegron [Myrbetriq] 25 mg PO DAILY 11/18/20 11/18/20 History Mirtazapine 7.5 mg PO HS 11/18/20 11/18/20 History Omeprazole [Omeprazole 20mg 20 mg PO DAILY 11/18/20 11/18/20 History Capsule] bisoproloL fumarate [Bisoprolol 5 mg PO DAILY 11/18/20 11/18/20 History Fumarate] Allergies Allergy/AdvReac Type Severity Reaction Status Date / Time No Known Allergies Allergy Verified 11/18/20 09:32 Exam Vital signs and Labs for Last 24 Hour
[2020-11-18 18:08] LABS: Troponin I < 0.01 ng/ml (0.00-0.034)
--- NOTE | 2020-11-18 19:31 | PC.NURSE ---
Pt's HR consistently < 100, cardizem gtt titrated over time to 5 mls/hr. Pt made comment that her breathing is improved. Is currently on room air. Is A&O x4. Calls out appropriately. Lungs CTA. Abdomen soft, non-tender w/ active BS. Stress bladder incontinence noted. Skin clean, intact. Call baeza w/in reach.
[2020-11-18 23:53] LABS: Troponin I < 0.01 ng/ml (0.00-0.034)
[2020-11-19] VITALS (49 sets, daily range): BP systolic 64–149; BP diastolic 00–90; PULSE 70–102; RESP 14–22; TEMP 35.2–36.6; O2SAT 94–98; BMI 29.0
[2020-11-19 06:27] LABS: Basophils % 0.3 % (0.1-2.0); Eosinophils # 0.1 K/mm3 (0.0-0.4); Eosinophils % 1.5 % (0.1-12.0); Hematocrit 31.6 % (37.0-47.0); Hemoglobin 9.8 g/dL (12.2-16.2); Lymphocytes % 17.8 % (10-50); Mean Corpuscular HGB Conc 30.9 g/dL (31.8-35.4); Mean Corpuscular Hemoglobin 27.7 pg (27.0-31.2); Mean Corpuscular Volume 89.8 fl (81-99); Mean Platelet Volume 7.8 fl (7.4-10.4); Monocytes # 0.5 K/mm3 (0.1-1.0); Neutrophils # 3.8 K/mm3 (1.8-7.8); Neutrophils % 71.4 % (37.0-80.0); Platelet Count 155 K/mm3 (142-424); Red Blood Count 3.53 M/mm3 (4.20-5.40); Red Cell Distribution Width 15.6 % (11.5-17.5); White Blood Count 5.4 K/mm3 (4.8-10.8)
[2020-11-19 06:31] LABS: Chloride 110 mmol/L (98-107); Potassium 4.6 mmoL/L (3.5-5.1); Sodium 138 mmol/L (136-145)
[2020-11-19 06:34] LABS: Anion Gap 10.6 mEq/L (5-15); Blood Urea Nitrogen 23 mg/dl (7-17); Calcium 8.6 mg/dl (8.4-10.2); Carbon Dioxide 22 mmol/L (22.0-30.0); Cholesterol 87 mg/dl (140-200); Creatinine Clearance Estimated 38 mL/min (50-200); Estimated Glomerular Filt Rate 39 ml/min (>60); GFR (African American) 47 ML/MIN (>60); Glucose 201 mg/dl (74-100); Triglycerides 67 mg/dl (30-150); VLDL Cholesterol 13 mg/dL (0-40)
[2020-11-19 06:35] LABS: Chol/HDL Ratio 2.4 (1-3.5); HDL Cholesterol 36 mg/dl (40-60)
[2020-11-19 06:45] LABS: Direct LDL Cholesterol 36.01 mg/dL (100-129)
[2020-11-19 06:48] LABS: Troponin I < 0.01 ng/ml (0.00-0.034)
--- NOTE | 2020-11-19 07:23 | PC.NURSE ---
pT IS a&oX4 AND HAS AMBULATED TO THE BR 2X THIS SHIFT AND STAFF SBA AND TOLERATED WELL. PT IS ON ROOM AIR WITH SATS >94%. PT DENIES ANY SOA OR DYSPNEA. PT DID C/O SHOULDER PAIN THAT WAS PINPOINT TO TOP OF SHOULDER BLADE, MEDICATED WITH TYLENOL, KPAD AND NEW ORDER FOR ZANAFLEX THAT OFFERED GREAT RELIEF TO PT. ABD IS SOFT, NON-TENDER, WITH ACTIVE BS AND PT HAD LARGE BM AT THE BEGINNING OF THE SHIFT VIA BEDPAN.
--- NOTE | 2020-11-19 07:35 | HMH.PNCARD ---
Subjective Date: 11/19/20 Time: 07:35 Principal diagnosis: afib with RVR, SOB Interval history: 85-year-old white female sitting up in bed eating breakfast in no acute distress. States she feels significantly better than she did yesterday. Diltiazem drip has been weaned down to 5 mg/h overnight after additional bisoprolol given yesterday evening. Heart rate is now in the 80s with intermittent pacemaker capture as needed. CT of the chest was negative for pulmonary embolism but did show evidence of right pleural effusion, possible free fluid/anasarca and congestive heart failure. Troponins overnight were normal x4. Exam Vital signs and Labs for Last 24 Hours: Temp Pulse Resp BP Pulse Ox 97.9 F 72 18 111/80 96 11/19/20 00:00 11/19/20 06:30 11/19/20 06:00 11/19/20 06:30 11/19/20 06:30 Laboratory Results - last 24 hr 11/18/20 12:56: WBC 11.6 H, RBC 3.66 L, Hgb 10.8 L, Hct 32.1 L, MCV 87.8, MCH 29.6, MCHC 33.7, RDW 15.6, Plt Count 218, MPV 7.7, Neut % (Auto) 77.6, Lymph % (Auto) 15.5, [place] % (Auto) 6.3, Eos % (Auto) 0.5, Baso % (Auto) 0.2, Neut # (Auto) 9.0 H, Lymph # (Auto) 1.8, [place] # (Auto) 0.7, Eos # (Auto) 0.1, Baso # (Auto) 0.0 11/18/20 12:56: Sodium 139, Potassium 3.9, Chloride 109 H, Carbon Dioxide 23, Anion Gap 10.9, BUN 23 H, Creatinine 1.20 H, Estimated Creat Clear 41, Estimated GFR 43 L, Est GFR ( Amer) 52 L, Glucose 82, Calcium 9.4, Total Bilirubin 1.2, Direct Bilirubin 0.3, Conjugated Bilirubin 0.0, Indirect Bilirubin 0.9, Unconjugated Bilirubin 0.9, AST 24, ALT 12, Alkaline Phosphatase 92, Troponin I < 0.01, Total Protein 6.6, Albumin 3.7, TSH 5.13 H 11/18/20 12:56: Magnesium 1.4 L 11/18/20 12:56: Free T4 1.81 11/18/20 17:10: Troponin I < 0.01 11/18/20 23:14: Troponin I < 0.01 11/19/20 05:47: WBC 5.4 D, RBC 3.53 L, Hgb 9.8 L, Hct 31.6 L, MCV 89.8, MCH 27.7, MCHC 30.9 L, RDW 15.6, Plt Count 155 D, MPV 7.8, Neut % (Auto) 71.4, Lymph % (Auto) 17.8, [place] % (Auto) 9.0, Eos % (Auto) 1.5, Baso % (Auto) 0.3, Neut # (Auto) 3.8, Lymph # (Auto) 1.0, [place] # (Auto) 0.5, Eos # (Auto) 0.1, Baso # (Auto) 0.0 11/19/20 05:47: Sodium 138, Potassium 4.6, Chloride 110 H, Carbon Dioxide 22, Anion Gap 10.6, BUN 23 H, Creatinine 1.30 H, Estimated Creat Clear 38, Estimated GFR 39 L, Est GFR ( Amer) 47 L, Glucose 201 H D, Calcium 8.6, Troponin I < 0.01, Triglycerides 67, Cholesterol 87 L, LDL Cholesterol Direct 36.01 L, VLDL Cholesterol 13, HDL Cholesterol 36 L, Cholesterol/HDL Ratio 2.4 I & O for Last 24 hours: Intake & Output 11/16/20 11/17/20 11/18/20 11/19/20 11:59 11:59 11:59 11:59 Intake Total 940 / 940 Balance 940 / 940 Weight 162 lb 9 oz Microbiology Reports for the Last 24 Hours: Microbiology 11/18/20 10:50 Nasopharyngeal Coronavirus COVID-19 PCR - Final - *Routine Respiratory Exam Present: CTA bilaterally - *Routine Cardiovascular Exam Present: RRR Progress Note: A&P (1) Atrial fibrillation with RVR Status: Acute Assessment and plan: Patient appears to converted back to a sinus rhythm overnight. We will get an EKG to confirm. She has intermittent pacing noted. This atrial fibrillation was a relatively new diagnosis in the last month. Her [id number] score is at least 5 therefore she will need long-term anticoagulation. We will switch her to Xarelto 15 mg daily based on her lab work this admission. Will discontinue diltiazem drip and restart home medication verapamil but at a lower dose of 180 mg daily. Continue the increased dose of bisoprolol (5 mg twice daily). (2) SOB (shortness of breath) on exertion Status: Acute (3) HLD (hyperlipidemia) Status: Chronic (4) Cardiac pacemaker in situ Status: Chronic (5) HTN (hypertension) Status: Chronic (6) Pulmonary HTN Status: Chronic (7) Coronary artery disease Status: Chronic Assessment and plan: Cardiac cath from [address] Keith. No significant macrovascular disease noted.
--- NOTE | 2020-11-19 07:39 | ECG_ITS ---
APPROVED REPORT Exam: Resting ECG HR:80 bpm ECG Measurements Heart Rate 80 AXES QRSd 142 QRS -86 QT 458 T 96 QTc 528 Conclusion AV sequential or dual chamber electronic pacemaker Electronically signed by : Alexy Rivera, 11/19/2020 13:15:39
--- NOTE | 2020-11-19 08:20 | HMH.DCSUM ---
General - General Admission date:: 11/18/20 Discharge date: 11/19/20 HPI HPI: Chief Complaint: No weight change Here for test f/u Denies cp and pressure since last visit but states that she feels her heart racing in her neck, she also complaints of neck and shoulder pain on the R side. Denies dizziness and lightheadedness SOB is unchanged, she states that this is getting worse since last visit Denies swelling and numbness Daytime fatigue and weakness are present, she states that is very weak and tired, her energy level is low. She states that is not sleeping at night due to being so dyspnea. Above note per cardiology clinic, cardiology called me and asked to admit to my service. Plan will be to admit for Carolynn neff given her atrial fibrillation. Given her dyspnea we will also work-up for PE. Patient states that she feels better now that she is been admitted to hospital. Objective Vital signs: Temp Pulse Resp BP Pulse Ox 97.9 F 87 15 101/70 L 97 11/19/20 00:00 11/19/20 07:00 11/19/20 07:00 11/19/20 07:00 11/19/20 07:00 Results Labs on day of discharge: Labs from last 24 hours 11/19/20 11/19/20 11/18/20 05:47 05:47 23:14 WBC 5.4 D RBC 3.53 L Hgb 9.8 L Hct 31.6 L MCV 89.8 MCH 27.7 MCHC 30.9 L RDW 15.6 Plt Count 155 D MPV 7.8 Neut % (Auto) 71.4 Lymph % (Auto) 17.8 [place] % (Auto) 9.0 Eos % (Auto) 1.5 Baso % (Auto) 0.3 Neut # (Auto) 3.8 Lymph # (Auto) 1.0 [place] # (Auto) 0.5 Eos # (Auto) 0.1 Baso # (Auto) 0.0 Sodium 138 Potassium 4.6 Chloride 110 H Carbon Dioxide 22 Anion Gap 10.6 BUN 23 H Creatinine 1.30 H Estimated Creat Clear 38 Estimated GFR 39 L Est GFR ( Amer) 47 L Glucose 201 H D Calcium 8.6 Magnesium Total Bilirubin Direct Bilirubin Conjugated Bilirubin Indirect Bilirubin Unconjugated Bilirubin AST ALT Alkaline Phosphatase Troponin I < 0.01 < 0.01 Total Protein Albumin Triglycerides 67 Cholesterol 87 L LDL Cholesterol Direct 36.01 L VLDL Cholesterol 13 HDL Cholesterol 36 L Cholesterol/HDL Ratio 2.4 TSH Free T4 11/18/20 11/18/20 11/18/20 17:10 12:56 12:56 WBC RBC Hgb Hct MCV MCH MCHC RDW Plt Count MPV Neut % (Auto) Lymph % (Auto) [place] % (Auto) Eos % (Auto) Baso % (Auto) Neut # (Auto) Lymph # (Auto) [place] # (Auto) Eos # (Auto) Baso # (Auto) Sodium Potassium Chloride Carbon Dioxide Anion Gap BUN Creatinine Estimated Creat Clear Estimated GFR Est GFR ( Amer) Glucose Calcium Magnesium 1.4 L Total Bilirubin Direct Bilirubin Conjugated Bilirubin Indirect Bilirubin Unconjugated Bilirubin AST ALT Alkaline Phosphatase Troponin I < 0.01 Total Protein Albumin Triglycerides Cholesterol LDL Cholesterol Direct VLDL Cholesterol HDL Cholesterol Cholesterol/HDL Ratio TSH Free T4 1.81 11/18/20 11/18/20 12:56 12:56 WBC 11.6 H RBC 3.66 L Hgb 10.8 L Hct 32.1 L MCV 87.8 MCH 29.6 MCHC 33.7 RDW 15.6 Plt Count 218 MPV 7.7 Neut % (Auto) 77.6 Lymph % (Auto) 15.5 [place] % (Auto) 6.3 Eos % (Auto) 0.5 Baso % (Auto) 0.2 Neut # (Auto) 9.0 H Lymph # (Auto) 1.8 [place] # (Auto) 0.7 Eos # (Auto) 0.1 Baso # (Auto) 0.0 Sodium 139 Potassium 3.9 Chloride 109 H Carbon Dioxide 23 Anion Gap 10.9 BUN 23 H Creatinine 1.20 H Estimated Creat Clear 41 Estimated GFR 43 L Est GFR ( Amer) 52 L Glucose 82 Calcium 9.4 Magnesium Total Bilirubin 1.2 Direct Bilirubin 0.3 Conjugated Bilirubin 0.0 Indirect Bilirubin 0.9 Unconjugated Bilirubin 0.9 AST 24 ALT 12 Alkaline Phosphatase 92 Troponin I < 0.01 Total Protein 6.6 Albumin
--- NOTE | 2020-11-19 16:47 | HMH.ACPN2 ---
Internal Medicine - PN: Subj *Date: 11/19/20 *Time: 16:50 Interval history: Patient initially appeared well this morning. Was alert and oriented. Denied significant shortness of breath or chest pain. Continued to complain of right shoulder pain however that is quite bothersome to her and her daughter. Most prominent posterior right shoulder and right trapezius. Otherwise hemodynamically stable on rounds this morning, afebrile, tolerating oral medication regimen. Initially plan for discharge home until patient had event of significant hypotension about an hour and a half after receiving morning medications including verapamil and bisoprolol. Patient subsequently required 500 cc bolus of normal saline and maintenance fluids initiated 100 cc an hour. Blood pressure remained low with systolics in the 70s and 80s. Initiated on phenylephrine drip with significant improvement by mid afternoon. Patient's mentation back to normal. Currently in a paced rhythm on telemetry. Given improvement in mentation and stability in blood pressure, decision made to move forward with right shoulder injection as discussed on morning rounds. Daughter at bedside through multiple visits with the patient today Exam Vital signs and Labs for Last 24 Hours: Temp Pulse Resp BP Pulse Ox 97.9 F 70 16 92/60 L 96 11/19/20 00:00 11/19/20 16:00 11/19/20 12:00 11/19/20 12:00 11/19/20 12:00 Laboratory Results - last 24 hr 11/18/20 17:10: Troponin I < 0.01 11/18/20 23:14: Troponin I < 0.01 11/19/20 05:47: WBC 5.4 D, RBC 3.53 L, Hgb 9.8 L, Hct 31.6 L, MCV 89.8, MCH 27.7, MCHC 30.9 L, RDW 15.6, Plt Count 155 D, MPV 7.8, Neut % (Auto) 71.4, Lymph % (Auto) 17.8, [place] % (Auto) 9.0, Eos % (Auto) 1.5, Baso % (Auto) 0.3, Neut # (Auto) 3.8, Lymph # (Auto) 1.0, [place] # (Auto) 0.5, Eos # (Auto) 0.1, Baso # (Auto) 0.0 11/19/20 05:47: Sodium 138, Potassium 4.6, Chloride 110 H, Carbon Dioxide 22, Anion Gap 10.6, BUN 23 H, Creatinine 1.30 H, Estimated Creat Clear 38, Estimated GFR 39 L, Est GFR ( Amer) 47 L, Glucose 201 H D, Calcium 8.6, Troponin I < 0.01, Triglycerides 67, Cholesterol 87 L, LDL Cholesterol Direct 36.01 L, VLDL Cholesterol 13, HDL Cholesterol 36 L, Cholesterol/HDL Ratio 2.4 I & O for Last 24 hours: Intake & Output 11/16/20 11/17/20 11/18/20 11/19/20 23:59 23:59 23:59 23:59 Intake Total 940 / 940 240 / 240 Balance 940 / 940 240 / 240 Weight 73.737 kg 74.5 kg Microbiology Reports for the Last 24 Hours: Microbiology 11/18/20 10:50 Nasopharyngeal Coronavirus COVID-19 PCR - Final - Constitutional no acute distress, chronically ill appearing - *Routine HEENT Exam Head: Present: normocephalic Eye: Present: EOMI, PERRL ENT: Present: mucous membranes moist - *Routine Neck Exam Present: supple. Absent: lymphadenopathy - *Routine Respiratory Exam Present: CTA bilaterally. Absent: wheezes - *Routine Cardiovascular Exam Present: RRR Comments: Paced rhythm - *Routine Abdominal Exam Present: soft, normoactive bowel sounds, tenderness (Diffuse nonfocal) - *Routine Extremities Exam Present: edema (Trace bilateral lower extremity to knees). Absent: cyanosis, clubbing Comments: Right shoulder with positive empty can test, mild pain with external rotation of right shoulder. Tender to palpation with muscle spasm in right upper trapezius. - *Routine Skin Exam Present: warm. Absent: rash - *Routine Neurological Exam Present: alert, oriented X3 Assessment and Plan (1) Atrial fibrillation with RVR Status: Acute Category: Medical Code(s): I48.91 - Unspecified atrial fibrillation (2) SOB (shortness of breath) on exertion Status: Acute Category: Medical Code(s): R06.02 - Shortness of breath (3) HLD (hyperlipidemia) Status: Chronic Qualifiers: Hyperlipidemia type: mixed hyperlipidemia Qualified Code(s): E78.2 - Mixed hyperlipidemia Category: Medical Code(s): E78.5 - Hyperli
--- NOTE | 2020-11-19 16:47 | P.PCN_ITS ---
[facility] Procedure Note Procedure Note:: 85-year-old female with right shoulder pain secondary to arthritis and rotator cuff arthropathy. Verbal consent obtained for procedure. Discussed risks and benefits including infection, bleeding, pain. Improvement in pain, improve function/use of arm and shoulder. Posterior shoulder cleaned in usual sterile fashion with Betadine solution. Topical anesthetic using cold spray/ethyl chloride. Shoulder joint entered 1 cm below angle of acromion posterior right shoulder. Injected 40 mg triamcinolone with 3 cc 1% lidocaine without epinephrine into subacromion space. Patient tolerated the procedure well without any bleeding or other adverse events. Dressed with sterile bandage
--- NOTE | 2020-11-19 17:29 | PC.NURSE ---
around [id number] noticed that patient bp was starting to drip systolic was occasional 70-80s. notified yovani becerra and he instructed to give a 250ml bolus at that time. crystal rounded about 1345 and he instructed to give another bolus of 250ml ns and start a rate of 100ml/hr for maintenance. at 1500 bp started dropping even more and systolic got down to 60s systolic. at about 1530 it was 64/doppler. rectal temp at that time 96.2. and started vomiting patient a little more drowsy then earlier but still responsive. contacted yovani becerra instructed to give a phenylephrine 100mcg/min bolus to patient and then start the drip to maintain a systolic >100. earlier in shift new iv was placed 20 in l forearm and house placed a 20 in r ej. after giving the 100mcg for about 10 minutes bp increased to 80s. was able to currently have drip at 90mcg/minute. systolic is about [address] rojas rounded and checked on patient he did give a lidocaine/steroid shot in patient r shoulder. also stated patient could have zofran 4mg q8hr as needed for nausea. patient is now more awake and in good spirits. states to not give zanaflex and hold anything bp related. dr rojas also stated he was happy with a systolic greater than 65.
--- NOTE | 2020-11-19 18:25 | PC.NURSE ---
patient has been paced with no signs of afib since about 1100. has remained on room air. no shortness of breath except with pain. pain in shoulder has improved since injection from md. britany remains at 90mcg/min. will decrease as bp allows.
[2020-11-19 18:26] LABS: POC Glucose,Bedside 352 (70-110)
--- NOTE | 2020-11-19 18:54 | PC.NURSE ---
decreased phenylephrine to 80mcg/min
[2020-11-19 22:46] LABS: POC Glucose,Bedside 347 (70-110)
[2020-11-20] VITALS (34 sets, daily range): BP systolic 108–142; BP diastolic 60–94; PULSE 75–97; RESP 16–20; TEMP 36.2–37.3; O2SAT 94–100; BMI 29.2
[2020-11-20 06:13] LABS: Basophils % 0.3 % (0.1-2.0); Eosinophils # 0.1 K/mm3 (0.0-0.4); Eosinophils % 1.3 % (0.1-12.0); Hematocrit 33.5 % (37.0-47.0); Hemoglobin 10.3 g/dL (12.2-16.2); Lymphocytes # 1.2 K/mm3 (0.7-4.5); Mean Corpuscular HGB Conc 30.7 g/dL (31.8-35.4); Mean Corpuscular Hemoglobin 27.9 pg (27.0-31.2); Mean Corpuscular Volume 90.7 fl (81-99); Mean Platelet Volume 8.1 fl (7.4-10.4); Monocytes # 0.5 K/mm3 (0.1-1.0); Monocytes % 6.1 % (1.7-9.3); Neutrophils # 6.5 K/mm3 (1.8-7.8); Neutrophils % 78.3 % (37.0-80.0); Platelet Count 151 K/mm3 (142-424); Red Cell Distribution Width 15.5 % (11.5-17.5); White Blood Count 8.3 K/mm3 (4.8-10.8)
[2020-11-20 06:22] LABS: Chloride 110 mmol/L (98-107); Potassium 4.7 mmoL/L (3.5-5.1); Sodium 137 mmol/L (136-145)
[2020-11-20 06:24] LABS: Blood Urea Nitrogen 29 mg/dl (7-17); Creatinine Clearance Estimated 28 mL/min (50-200); Estimated Glomerular Filt Rate 27 ml/min (>60); GFR (African American) 33 ML/MIN (>60)
[2020-11-20 06:25] LABS: Anion Gap 14.7 mEq/L (5-15); Calcium 8.2 mg/dl (8.4-10.2); Carbon Dioxide 17 mmol/L (22.0-30.0); Glucose 210 mg/dl (74-100); Magnesium 1.4 mg/dl (1.6-2.3)
--- NOTE | 2020-11-20 06:38 | PC.NURSE ---
Late Entry- Phenylephrie gtt titration times as follows: 11/19/20 @1915 down to 70mcg/min (105ml/hr) @2000 down to 60mcg/mi (90ml/hr) @2100 down to 50mcg/min (75ml/hr) @2200 down to 40mcg/min (60ml/hr) 11/20/20 @0100 down to 30mcg/min (45ml/hr) @0300 down to 20mcg/min (30ml/hr) @0400 down to 10mcg/min (15ml/hr) Stopped gtt @ 0445 - ok'ed per Dr. Hylton, bonded structures repairer for Dr. Rivera. Also, if pt continues to have stable BP may be taken out of step-down status.
--- NOTE | 2020-11-20 06:44 | PC.NURSE ---
Pt has been A&Ox4 and has been up to side of bed and to the chair this shift. Pt's temp decreased as low as 94.7 and hypothermic measures were taken. Pt placed on ward paws and rectal temp re-checked q1 hr until pt reached goal temp of 98.6. Lungs CTA, continues on room air with sats >94%. BP has been elevated since phenylephrie gtt was d/c'ed and pt moved to sit in chair. IVF were also stopped as per Cardiology. Paced in tele with HR <100 t/o shift. TEDS in place to BLE. Call light within reach.
[2020-11-20 07:50] LABS: POC Glucose,Bedside 196 (70-110)
--- NOTE | 2020-11-20 08:36 | HMH.PNCARD ---
Subjective Date: 11/20/20 Time: 08:00 Principal diagnosis: afib with RVR, SOB Interval history: 85-year-old female admitted to [facility] with atrial fibrillation with RVR and hypertension. Patient does have PPM in place. Patient is resting quietly in bed. Patient stated she did get up to go to the restroom without any difficulty. Patient complains of right shoulder pain in which this is chronic. PCP did give patient an injection in the right shoulder last p.m. Patient stated pain had been resolved, until this morning. Will defer this pain to PCP. Patient is cardiac stable at this time patient noted to be in sinus rhythm with intermittent paced beats. Heart rate 80-100bpm. Patient had been on a Marlon drip yesterday due to sudden hypotension. Neodrip has been stopped. BP this morning 137/94. Patient has not had any blood pressure medications this a.m. Due to her ejection fraction of 40%, low-dose diuretics were started for acute congestive heart failure. Patient is placed on Xarelto 15 mg due to atrial fibrillation. Patient denies any bleeding noted. Creatinine noted to be elevated at 1.80 which is up from 1.30 yesterday. Discussed plan of care with Dr. Keith and Dr. Rivera. Recommend starting patient on calcium channel selam such as verapamil 180 mg once a day. Low-dose beta-selam such as bisoprolol to better control heart rate and blood pressure. Will have patient follow-up in cardiology clinic in 1 week or sooner if symptoms persist or become worse. Exam Vital signs and Labs for Last 24 Hours: Temp Pulse Resp BP Pulse Ox 98.4 F 97 H 17 137/94 H 95 11/20/20 06:00 11/20/20 08:00 11/20/20 06:00 11/20/20 06:30 11/20/20 06:30 Laboratory Results - last 24 hr 11/19/20 17:06: POC Glucose 352 H* 11/19/20 22:13: POC Glucose 347 H* 11/20/20 05:55: WBC 8.3 D, RBC 3.70 L, Hgb 10.3 L, Hct 33.5 L, MCV 90.7, MCH 27.9, MCHC 30.7 L, RDW 15.5, Plt Count 151, MPV 8.1, Neut % (Auto) 78.3, Lymph % (Auto) 14.0, Orange % (Auto) 6.1, Eos % (Auto) 1.3, Baso % (Auto) 0.3, Neut # (Auto) 6.5, Lymph # (Auto) 1.2, Orange # (Auto) 0.5, Eos # (Auto) 0.1, Baso # (Auto) 0.0 11/20/20 05:55: Sodium 137, Potassium 4.7, Chloride 110 H, Carbon Dioxide 17 L D, Anion Gap 14.7, BUN 29 H D, Creatinine 1.80 H D, Estimated Creat Clear 28, Estimated GFR 27 L, Est GFR ( Amer) 33 L D, Glucose 210 H, Calcium 8.2 L, Magnesium 1.4 L 11/20/20 07:42: POC Glucose 196 H I & O for Last 24 hours: Intake & Output 11/17/20 11/18/20 11/19/20 11/20/20 23:59 23:59 23:59 23:59 Intake Total 940 / 940 360 / 360 480 / 480 Balance 940 / 940 360 / 360 480 / 480 Weight 162 lb 9 oz 164 lb 3.91 oz - Constitutional no acute distress, average body habitus, cooperative - *Routine HEENT Exam Head: Present: normocephalic ENT: Present: mucous membranes moist - *Routine Neck Exam Present: supple, full ROM, normal carotid upstroke. Absent: JVD, carotid bruit, lymphadenopathy - Routine Chest/Breast/Axilla Exam Chest wall: Present: tenderness. Absent: mass, pacemaker - *Routine Respiratory Exam Present: accessory muscle use, CTA bilaterally. Absent: wheezes, crackles - *Routine Cardiovascular Exam Present: RRR, Normal S1, Normal S2. Absent: murmur, bradycardia, tachycardia - *Routine Abdominal Exam Present: soft, normoactive bowel sounds, tenderness. Absent: guarding, firm - *Routine Extremities Exam Present: full ROM, pulses intact, normal capillary refill. Absent: edema - *Routine Skin Exam Present: intact, dry, warm. Absent: erythema, lesions - *Routine Neurological Exam Present: alert, oriented X3, CN II-XII intact, moving all extremities, normal speech - Routine Psychiatric Exam Present: normal affect, normal thought process Progress Note: A&P (1) Atrial fibrillation with RVR Status: Acute (2) SOB (shortness of breath) on exertion Status: Acute (3) HLD (hyperlipidemia) Status: Chronic (4) Cardiac pacemaker
--- NOTE | 2020-11-20 08:50 | HMH.ACPN2 ---
Internal Medicine - PN: Subj *Date: 11/20/20 *Time: 08:50 Interval history: Patient feels patient felt well overnight, is off Marlon-Synephrine drip, blood pressure has been well controlled. She is awake, alert and pleasant. Shoulder is much better. Exam Vital signs and Labs for Last 24 Hours: Temp Pulse Resp BP Pulse Ox 98.4 F 97 H 17 137/94 H 95 11/20/20 06:00 11/20/20 08:00 11/20/20 06:00 11/20/20 06:30 11/20/20 06:30 Laboratory Results - last 24 hr 11/19/20 17:06: POC Glucose 352 H* 11/19/20 22:13: POC Glucose 347 H* 11/20/20 05:55: WBC 8.3 D, RBC 3.70 L, Hgb 10.3 L, Hct 33.5 L, MCV 90.7, MCH 27.9, MCHC 30.7 L, RDW 15.5, Plt Count 151, MPV 8.1, Neut % (Auto) 78.3, Lymph % (Auto) 14.0, [place] % (Auto) 6.1, Eos % (Auto) 1.3, Baso % (Auto) 0.3, Neut # (Auto) 6.5, Lymph # (Auto) 1.2, [place] # (Auto) 0.5, Eos # (Auto) 0.1, Baso # (Auto) 0.0 11/20/20 05:55: Sodium 137, Potassium 4.7, Chloride 110 H, Carbon Dioxide 17 L D, Anion Gap 14.7, BUN 29 H D, Creatinine 1.80 H D, Estimated Creat Clear 28, Estimated GFR 27 L, Est GFR ( Amer) 33 L D, Glucose 210 H, Calcium 8.2 L, Magnesium 1.4 L 11/20/20 07:42: POC Glucose 196 H I & O for Last 24 hours: Intake & Output 11/17/20 11/18/20 11/19/20 11/20/20 11:59 11:59 11:59 11:59 Intake Total 1180 / 1180 600 / 600 Balance 1180 / 1180 600 / 600 Weight 162 lb 9 oz 164 lb 3.91 oz Narrative: Patient's heart rate in slow A. fib with the low 80s. Blood pressure well controlled, she is alert, pleasant. Lungs clear, no murmurs. Abdomen soft and nontender. No ankle edema. Assessment and Plan (1) Atrial fibrillation with RVR Status: Acute Category: Medical Code(s): I48.91 - Unspecified atrial fibrillation (2) SOB (shortness of breath) on exertion Status: Acute Category: Medical Code(s): R06.02 - Shortness of breath (3) HLD (hyperlipidemia) Status: Chronic Qualifiers: Qualified Code(s): E78.2 - Mixed hyperlipidemia Category: Medical Code(s): E78.5 - Hyperlipidemia, unspecified (4) Cardiac pacemaker in situ Status: Chronic Category: Medical Code(s): Z95.0 - Presence of cardiac pacemaker (5) HTN (hypertension) Status: Chronic Qualifiers: Qualified Code(s): I10 - Essential (primary) hypertension Category: Medical Code(s): I10 - Essential (primary) hypertension (6) Pulmonary HTN Status: Chronic Category: Medical Code(s): I27.20 - Pulmonary hypertension, unspecified (7) Coronary artery disease Status: Chronic Qualifiers: Qualified Code(s): I25.10 - Atherosclerotic heart disease of [place] coronary artery without angina pectoris Category: Medical Code(s): I25.10 - Atherosclerotic heart disease of [place] coronary artery without angina pectoris (8) Cardiomyopathy Status: Acute Qualifiers: Qualified Code(s): I42.9 - Cardiomyopathy, unspecified Category: Medical Code(s): I42.9 - Cardiomyopathy, unspecified (9) CHF (congestive heart failure) Status: Acute Category: Medical Code(s): I50.9 - Heart failure, unspecified (10) Primary osteoarthritis of right shoulder Status: Acute Category: Medical Code(s): M19.011 - Primary osteoarthritis, right shoulder - Assessment and plan all Dx Assessment and Plan for all problems:: Patient responded well to IV Lasix and drip through the day yesterday. However has developed a slight acute kidney injury. Therefore, I will give her very modest fluids throughout the day today, start back on modified recommendations from cardiology with bisoprolol, verapamil and I will add digoxin. I feel that going back to the previous dose of bisoprolol which produced hypotension in this fragile female is probably not the best option and digoxin will give us some rate control without the potential for hypotension. However I would like her to stay today and watch her creatinine tomorrow, she will need to go home with home health.
[2020-11-20 11:30] LABS: POC Glucose,Bedside 178 (70-110)
--- NOTE | 2020-11-20 18:54 | PC.NURSE ---
No acute changes since taking over care for pt at 1500 approx.
--- NOTE | 2020-11-20 18:55 | PC.NURSE ---
VSS and pt transferred to room 212.
--- NOTE | 2020-11-20 19:09 | PC.NURSE ---
Did also update Betzy Castillo, at [facility] of status today.
[2020-11-20 20:44] LABS: POC Glucose,Bedside 226 (70-110)
[2020-11-21] VITALS (7 sets, daily range): BP systolic 148–158; BP diastolic 83–94; PULSE 60–105; RESP 16–20; TEMP 36.5–36.7; O2SAT 96–98; BMI 29.5
[2020-11-21 01:19] LABS: POC Glucose,Bedside 200 (70-110)
--- NOTE | 2020-11-21 02:47 | PC.NURSE ---
A&OX4. PT HAS TOLERATED RA WELL THROUGHOUT SHIFT. RESPIRATIONS REGULAR AND UNLABORED. LUNG SOUNDS BILATERALLY CLEAR. NO COUGH NOTED. ACTIVE BOWEL SOUNDS HEARD IN ALL 4 QUADRANTS. SOFT AND TENDER ABDOMEN. PT STATES IT IS NORMAL FOR HER ABDOMEN TO BE TENDER. NO BM NOTED THUS FAR. HAND OUTER DIAMETER GRINDER TOOL EQUAL. +2 PULSES NOTED THROUGHOUT. NO EDEMA NOTED. PT VOIDS PER BATHROOM WITH STANDBY ASSISTANCE. CLEAR YELLOW URINE NOTED.NO REPORTS OF PAIN THUS FAR. NO REPORTS OF NAUSEA. NS INFUSING AT 50ML/HR. PT MOVES INDEPENDENTLY IN THE BED. CALL LIGHT WITHIN REACH. BED IN LOWEST POSITION. VSS. WILL CONTINUE TO MONITOR.
[2020-11-21 05:15] LABS: POC Glucose,Bedside 193 (70-110)
--- NOTE | 2020-11-21 08:22 | P.PN_ITS ---
Subjective Date: 11/21/20 Time: 08:22 Principal diagnosis: afib with RVR, SOB Interval history: 85-year-old white female sitting in bedside chair in no acute distress. She is asking about going home. She denies any chest pain, pressure or tightness. Telemetry shows sinus rhythm with intermittent pacing. Exam Vital signs and Labs for Last 24 Hours: Temp Pulse Resp BP Pulse Ox 97.7 F 100 H 20 158/94 H 96 11/21/20 07:35 11/21/20 07:35 11/21/20 07:35 11/21/20 07:35 11/21/20 07:35 Laboratory Results - last 24 hr 11/20/20 11:19: POC Glucose 178 H 11/20/20 17:11: POC Glucose 200 H 11/20/20 20:02: POC Glucose 226 H 11/21/20 05:06: POC Glucose 193 H I & O for Last 24 hours: Intake & Output 11/18/20 11/19/20 11/20/20 11/21/20 11:59 11:59 11:59 11:59 Intake Total 1180 / 1180 600 / 600 2328 / 2328 Balance 1180 / 1180 600 / 600 2328 / 2328 Weight 162 lb 9 oz 164 lb 3.91 oz 165 lb 5.547 oz 166 lb 4 oz - Constitutional no acute distress - *Routine HEENT Exam Head: Present: normocephalic Eye: Present: EOMI, PERRL ENT: Present: mucous membranes moist - *Routine Neck Exam Present: supple. Absent: lymphadenopathy - *Routine Respiratory Exam Present: CTA bilaterally - *Routine Cardiovascular Exam Present: RRR - *Routine Abdominal Exam Present: soft, normoactive bowel sounds. Absent: tenderness - *Routine Extremities Exam Absent: cyanosis, clubbing, edema - *Routine Skin Exam Present: warm. Absent: rash - *Routine Neurological Exam Present: alert, oriented X3 Progress Note: A&P (1) Atrial fibrillation with RVR Status: Acute (2) SOB (shortness of breath) on exertion Status: Acute (3) HLD (hyperlipidemia) Status: Chronic (4) Cardiac pacemaker in situ Status: Chronic (5) HTN (hypertension) Status: Chronic (6) Pulmonary HTN Status: Chronic (7) Coronary artery disease Status: Chronic (8) Cardiomyopathy Status: Acute (9) CHF (congestive heart failure) Status: Acute (10) Primary osteoarthritis of right shoulder Status: Acute Assessment and Plan for All Diagnoses:: Cardiac status stable. Patient be discharged home with outpatient follow-up in 1 to 2 weeks. Agree with current regimen of bisoprolol 2.5 mg daily, verapamil 240 mg daily and digoxin 0.125 mg daily. She is on Xarelto 15 mg daily due to paroxysmal A. fib. Addition of Lasix and spironolactone for mild congestive heart failure and cardiomyopathy with EF of 40% felt likely due to the atrial fi brillation. Consider follow-up echocardiogram in 4 to 6 weeks.
[2020-11-21 11:17] LABS: POC Glucose,Bedside 189 (70-110)
[2020-11-21 11:19] LABS: Chloride 110 mmol/L (98-107); Sodium 136 mmol/L (136-145)
[2020-11-21 11:21] LABS: Potassium 5.2 mmoL/L (3.5-5.1)
[2020-11-21 11:22] LABS: Anion Gap 13.2 mEq/L (5-15); Blood Urea Nitrogen 35 mg/dl (7-17); Calcium 8.6 mg/dl (8.4-10.2); Carbon Dioxide 18 mmol/L (22.0-30.0); Creatinine Clearance Estimated 30 mL/min (50-200); Estimated Glomerular Filt Rate 29 ml/min (>60); GFR (African American) 35 ML/MIN (>60); Glucose 210 mg/dl (74-100)
--- NOTE | 2020-11-21 12:58 | HMH.DCSUM ---
General - General Admission date:: 11/18/20 Discharge date: 11/21/20 HPI HPI: *History of present illness: Chief Complaint: No weight change Here for test f/u Denies cp and pressure since last visit but states that she feels her heart racing in her neck, she also complaints of neck and shoulder pain on the R side. Denies dizziness and lightheadedness SOB is unchanged, she states that this is getting worse since last visit Denies swelling and numbness Daytime fatigue and weakness are present, she states that is very weak and tired, her energy level is low. She states that is not sleeping at night due to being so dyspnea. Above note per cardiology clinic, cardiology called me and asked to admit to my service. Plan will be to admit for Cardizem drip given her atrial fibrillation. Given her dyspnea we will also work-up for PE. Patient states that she feels better now that she is been admitted to hospital. Hospital Course Hospital Course: The patient was admitted to hospital, rate control was achieved with diltiazem drip and she was transitioned off of this without event, cardiology place her on higher dose beta selam and verapamil which unfortunately resulted in significant hypertension requiring a phenylephrine drip. This resolved her hypotension issues, and patient felt much better, and this was able to be weaned off yesterday morning. After reviewing her significant response to beta blockers I felt that increasing beta selam back to this dose would be unwise because of her overall frailty and I elected to pursue lower dose beta selam, lower dose for abdominal and digoxin for rate control. We held her over one day because of minimal creatinine elevation, this resolved today and patient felt great, normal vital signs, and was able to go home. We did recommend home health because of her frailty. I performed a [id number] encounter with this patient today that meets mandated requirements for home health certification for the medical conditions listed in the progress note above. This patient is homebound based on multiple medical problems including frequent falls, chronic pain and immobility. They require home health services for PT/OT evaluation, nursing care, medication management and further physician orders as indicated. The patient will be discharged home today. I will see her in one week, new prescriptions as noted, Objective Vital signs: Temp Pulse Resp BP Pulse Ox 97.8 F 105 H 20 154/90 H 96 11/21/20 10:39 11/21/20 10:39 11/21/20 10:39 11/21/20 10:39 11/21/20 10:39 no acute distress, chronically ill appearing - *Routine HEENT Exam Head: Present: normocephalic Eye: Present: EOMI, PERRL ENT: Present: mucous membranes moist - *Routine Neck Exam Present: supple - *Routine Respiratory Exam Present: CTA bilaterally - *Routine Cardiovascular Exam Present: Normal S1, irregular rhythm - *Routine Abdominal Exam Present: soft, normoactive bowel sounds. Absent: tenderness - *Routine Extremities Exam Absent: cyanosis, clubbing, edema - *Routine Skin Exam Present: warm. Absent: rash - Detailed Eye Exam Eyelids: Bilateral normal inspection Results Labs on day of discharge: Labs from last 24 hours 11/21/20 11/21/20 11/21/20 10:53 10:48 05:06 Sodium 136 Potassium 5.2 H Chloride 110 H Carbon Dioxide 18 L Anion Gap 13.2 BUN 35 H Creatinine 1.70 H Estimated Creat Clear 30 Estimated GFR 29 L Est GFR ( Amer) 35 L Glucose 210 H POC Glucose 189 H 193 H Calcium 8.6 11/20/20 11/20/20 20:02 17:11 Sodium Potassium Chloride Carbon Dioxide Anion Gap BUN Creatinine Estimated Creat Clear Estimated GFR Est GFR ( Amer) Glucose POC Glucose 226 H 200 H Calcium DS: Diagnosis - Discharge Diagnosis (1) Atrial fibrillation with RVR Status: Resolved (2) SOB (shortness of harmony
--- NOTE | 2020-11-21 13:48 | SW/DCPLANNER ---
SET UP HOME HEALTH SERVICES FOR THIS PATIENT: MS MORELOS CHOSE [facility] SINCE SHE HAS USED THEIR SERVICES IN THE PAST... SHE IS DISCHARGING HOME TODAY AND WILL BE FOLLOWED BY [facility].. DAUGHTER STATED SHE WILL BE STAYING WITH HER UNTIL SHE IS WELL ENOUGH TO STAY WITH HER SON ALONE...SHE WILL RECEIVE PT/OT USP AND MEDICATION MANAGEMENT...
--- NOTE | 2020-11-21 15:49 | PC.NURSE ---
THIS RN PROVIDED D/C INSTRUCTIONS TO PATIENT AND DAUGHTER. THIS RN EDUCATED PATIENT THE IMPORTANCE OF BLEEDING PRECAUTIONS AND EDUCATION ABOUT A-FIB. PATIENT AND DAUGHTER VERBALIZED AN UNDERSTANDING. NO NEW CONCERNS NOTED.
== END 2020-11-21 15:34 | disposition home health service (06) ==
PROVIDERS: Internal Medicine Adolescent Medicine; Nurse Practitioner Family; Admitting Provider Internal Medicine Adolescent Medicine; PCP Internal Medicine Adolescent Medicine; Visit Provider Internal Medicine Adolescent Medicine
DX: I48.91 Unspecified atrial fibrillation (principal); Z79.4 Long term (current) use of insulin; E11.9 Type 2 diabetes mellitus without complications; I25.10 Atherosclerotic heart disease of native coronary artery without angina pectoris; Z95.0 Presence of cardiac pacemaker; I27.20 Pulmonary hypertension, unspecified; I42.9 Cardiomyopathy, unspecified; I50.9 Heart failure, unspecified; M19.011 Primary osteoarthritis, right shoulder; I11.0 Hypertensive heart disease with heart failure
CPT/HCPCS: G0379; 20610; 36415; 71275; 80048; 80061; 80076; 82962; 83735; 84439; 84443; 84484; 85025; 93005; G0378; Q9967; U0003

== ENCOUNTER → 2020-11-25 14:03 | Outpatient (CLI) | payer MEDICARE, MEDICAID, SELFPAY ==
[2020-11-25 14:26] LABS: Hemoglobin A1C 7.6 % (4.0-6.0)
== END ==
PROVIDERS: Visit Provider Internal Medicine Adolescent Medicine
DX: I48.91 Unspecified atrial fibrillation (principal); E11.9 Type 2 diabetes mellitus without complications; Z79.4 Long term (current) use of insulin
CPT/HCPCS: 83036

== ENCOUNTER → 2020-12-30 17:40 | Outpatient (CLI) | payer MEDICARE, MEDICAID, SELFPAY ==
[2020-12-30 18:06] LABS: Basophils % 0.3 % (0.1-2.0); Eosinophils # 0.1 K/mm3 (0.0-0.4); Eosinophils % 0.8 % (0.1-12.0); Hematocrit 36.2 % (37.0-47.0); Hemoglobin 11.5 g/dL (12.2-16.2); Lymphocytes # 1.9 K/mm3 (0.7-4.5); Mean Corpuscular HGB Conc 31.7 g/dL (31.8-35.4); Mean Corpuscular Hemoglobin 28.2 pg (27.0-31.2); Mean Corpuscular Volume 88.8 fl (81-99); Mean Platelet Volume 8.8 fl (7.4-10.4); Monocytes # 0.5 K/mm3 (0.1-1.0); Monocytes % 5.5 % (1.7-9.3); Neutrophils # 6.5 K/mm3 (1.8-7.8); Neutrophils % 72.5 % (37.0-80.0); Platelet Count 142 K/mm3 (142-424); Red Blood Count 4.08 M/mm3 (4.20-5.40); Red Cell Distribution Width 16.6 % (11.5-17.5)
[2020-12-30 18:17] LABS: Alanine Aminotransferase 18 U/L (12-78); Albumin Level 4.1 g/dl (3.5-5.0); Albumin/Globulin Ratio 1.7 (1.1-1.8); Alkaline Phosphatase 123 U/L (38-126); Anion Gap 21.9 mEq/L (5-15); Aspartate Amino Transferase 24 U/L (14-36); Bilirubin,Total 0.5 mg/dl (0.2-1.3); Blood Urea Nitrogen 35 mg/dl (7-17); Calcium 9.7 mg/dl (8.4-10.2); Carbon Dioxide 16 mmol/L (22.0-30.0); Chloride 105 mmol/L (98-107); Estimated Glomerular Filt Rate 43 ml/min (>60); GFR (African American) 52 ML/MIN (>60); Globulin 2.4 g/dL (1.3-3.2); Glucose 125 mg/dl (74-100); Potassium 4.9 mmoL/L (3.5-5.1); Sodium 138 mmol/L (136-145); Total Protein,Serum 6.5 g/dl (6.3-8.2)
[2020-12-30 18:33] LABS: Free T4 (Free Thyroxine) 1.53 ng/dl (0.78-2.19)
[2020-12-30 18:47] LABS: Thyroid Stimulating Hormone 1.37 uIU/mL (0.465-4.68)
== END ==
PROVIDERS: Visit Provider Emergency Medicine
DX: E11.9 Type 2 diabetes mellitus without complications (principal); R55 Syncope and collapse; Z79.84 Long term (current) use of oral hypoglycemic drugs
CPT/HCPCS: 36415; 80053; 80162; 84439; 84443; 85025

== ENCOUNTER → 2021-01-20 17:21 | Outpatient (CLI) | payer MEDICARE, MEDICAID, SELFPAY ==
[2021-01-21 08:37] LABS: Chloride 105 mmol/L (98-107); Sodium 138 mmol/L (136-145)
[2021-01-21 08:38] LABS: Potassium 4.9 mmoL/L (3.5-5.1)
[2021-01-21 08:40] LABS: Blood Urea Nitrogen 21 mg/dl (7-17); Estimated Glomerular Filt Rate 47 ml/min (>60); GFR (African American) 57 ML/MIN (>60)
[2021-01-21 08:41] LABS: Anion Gap 13.9 mEq/L (5-15); Carbon Dioxide 24 mmol/L (22.0-30.0); Glucose 259 mg/dl (74-100)
== END ==
PROVIDERS: Visit Provider Emergency Medicine
DX: N28.9 Disorder of kidney and ureter, unspecified (principal)
CPT/HCPCS: 80048

== ENCOUNTER → 2021-02-12 12:45 | Outpatient (CLI) | payer MEDICARE, MEDICAID, SELFPAY ==
[2021-02-12 13:11] LABS: Basophils % 0.4 % (0.1-2.0); Eosinophils # 0.2 K/mm3 (0.0-0.4); Eosinophils % 2.4 % (0.1-12.0); Hematocrit 37.5 % (37.0-47.0); Hemoglobin 11.5 g/dL (12.2-16.2); Lymphocytes # 1.4 K/mm3 (0.7-4.5); Lymphocytes % 17.2 % (10-50); Mean Corpuscular HGB Conc 30.7 g/dL (31.8-35.4); Mean Corpuscular Hemoglobin 26.9 pg (27.0-31.2); Mean Corpuscular Volume 87.5 fl (81-99); Mean Platelet Volume 8.6 fl (7.4-10.4); Monocytes # 0.4 K/mm3 (0.1-1.0); Monocytes % 4.5 % (1.7-9.3); Neutrophils # 5.9 K/mm3 (1.8-7.8); Neutrophils % 75.5 % (37.0-80.0); Platelet Count 197 K/mm3 (142-424); Red Blood Count 4.29 M/mm3 (4.20-5.40); Red Cell Distribution Width 16.5 % (11.5-17.5); White Blood Count 7.9 K/mm3 (4.8-10.8)
[2021-02-12 13:34] LABS: Chloride 102 mmol/L (98-107); Potassium 4.2 mmoL/L (3.5-5.1); Sodium 136 mmol/L (136-145)
[2021-02-12 13:37] LABS: Anion Gap 16.2 mEq/L (5-15); Blood Urea Nitrogen 10 mg/dl (7-17); Calcium 9.3 mg/dl (8.4-10.2); Carbon Dioxide 22 mmol/L (22.0-30.0); Estimated Glomerular Filt Rate 60 ml/min (>60); GFR (African American) 72 ML/MIN (>60); Glucose 274 mg/dl (74-100)
== END ==
PROVIDERS: Urology; Visit Provider Nurse Practitioner Family
DX: I50.9 Heart failure, unspecified (principal); R06.00 Dyspnea, unspecified; R60.9 Edema, unspecified; I11.0 Hypertensive heart disease with heart failure; I25.10 Atherosclerotic heart disease of native coronary artery without angina pectoris; I73.9 Peripheral vascular disease, unspecified; I27.20 Pulmonary hypertension, unspecified; Z95.0 Presence of cardiac pacemaker; E78.5 Hyperlipidemia, unspecified
CPT/HCPCS: 36415; 80048; 85025

== ENCOUNTER 2021-02-23 12:57 | Observation (INO) | payer MEDICARE, MEDICAID, SELFPAY ==
[2021-02-23] VITALS (19 sets, daily range): BP systolic 121–149; BP diastolic 59–112; PULSE 85–132; RESP 18–22; TEMP 36.4–36.8; O2SAT 92–99; BMI 25.6; BMI 25.7; BMI 24.8
--- NOTE | 2021-02-23 13:08 | XR_ITS ---
PROCEDURE INFORMATION: Exam: XR Chest Exam date and time: 02/23/2021 1:08 PM Age: 85 years old Clinical indication: Cough; Prior surgery TECHNIQUE: Imaging protocol: XR of the chest. Views: 4 or more views. COMPARISON: CT ANGIO CHEST 02/23/2021 2:25 PM FINDINGS: Tubes, catheters and devices: Pacemaker with the generator on the left. Lungs: Unremarkable. No consolidation. Pleural spaces: Unremarkable. No pleural effusion. No pneumothorax. Heart/Mediastinum: Unremarkable. No cardiomegaly. Bones/joints: Unremarkable. IMPRESSION: No acute cardiopulmonary disease.
--- NOTE | 2021-02-23 13:08 | PC.NURSE ---
pt to CT
--- NOTE | 2021-02-23 13:09 | CT_ITS ---
PROCEDURE INFORMATION: Exam: CT Head Without Contrast Exam date and time: 02/23/2021 1:09 PM Age: 85 years old Clinical indication: Weakness, facial; Additional info: L facial droop, stroke protocol TECHNIQUE: Imaging protocol: Computed tomography of the head without contrast. 3D rendering (Not supervised by radiologist): MIP and/or 3D reconstructed images were created by the technologist. Radiation optimization: All CT scans at this facility use at least one of these dose optimization techniques: automated exposure control; mA and/or kV adjustment per patient size (includes targeted exams where dose is matched to clinical indication); or iterative reconstruction. Other technique: STROKE PROTOCOL was implemented. COMPARISON: HEADWO CT head/brain wo con 02/04/2019 3:48 PM FINDINGS: Brain: No acute changes. No hemorrhage or evidence of acute ischemia. No edema. No mass or mass effect. The sulci are again noted to be prominent over the convexities. Cerebral ventricles: Mild prominence of the ventricular system secondary to volume loss is again noted. Again noted is a cavum septum pellucidum and cavum vergae. Otherwise, no acute change. Bones/joints: Unremarkable. No acute fracture. Paranasal sinuses: Visualized sinuses are unremarkable. No fluid levels. Mastoid air cells: Visualized mastoid air cells are well aerated. Soft tissues: Unremarkable. IMPRESSION: 1. No acute intracranial changes. 2. Generalized cerebral atrophy. ASSESSMENT: ASPECTS ([place] Stroke Program Early CT Score) is 10.
--- NOTE | 2021-02-23 13:10 | CT_ITS ---
PROCEDURE INFORMATION: Exam: CTA Chest With Contrast Exam date and time: 02/23/2021 1:10 PM Age: 85 years old Clinical indication: Cough; Prior surgery TECHNIQUE: Imaging protocol: Computed tomographic angiography of the chest with contrast. 3D rendering (Not supervised by radiologist): MIP and/or 3D reconstructed images were created by the technologist. Radiation optimization: All CT scans at this facility use at least one of these dose optimization techniques: automated exposure control; mA and/or kV adjustment per patient size (includes targeted exams where dose is matched to clinical indication); or iterative reconstruction. Contrast material: ISOVUE; Contrast volume: 70 ml; Contrast route: INTRAVENOUS (IV); COMPARISON: CT ANGIO CHEST 11/18/2020 3:03 PM FINDINGS: Pulmonary arteries: Normal. No pulmonary emboli. Aorta: Unremarkable. No aortic aneurysm. No aortic dissection. Lungs: Unremarkable. No consolidation. No masses. Pleural spaces: Small right pleural effusion which is smaller compared to the prior study. Heart: Unremarkable. No cardiomegaly. No pericardial effusion. Lymph nodes: Unremarkable. No enlarged lymph nodes. Bones/joints: Unremarkable. No acute fracture. Soft tissues: Unremarkable. IMPRESSION: 1. Small right pleural effusion. 2. No other acute cardiopulmonary disease. No pulmonary embolus.
--- NOTE | 2021-02-23 13:22 | PC.NURSE ---
pt return from CT
--- NOTE | 2021-02-23 13:27 | PC.NURSE ---
Dr Solano speaking with AD.
--- NOTE | 2021-02-23 13:29 | HMH.EDGENADL ---
ED Disposition Clinical Impression: Hyperglycemia due to diabetes mellitus, Lactic acidosis, Viral gastroenteritis Disposition: Admitted As Inpatient Condition on Discharge: Fair - Critical Care Critical Care Time: No Attestation: On 02/23/21, the high probability of a clinically significant, sudden or life threatening deterioration of the following system(s) required my full and direct attention, intervention and personal management. The time I documented below is in addition to time spent performing reported procedures but includes the following listed in this critical care notation. Medical Decision Making - Medical Records Medical records reviewed: Yes: I reviewed the patient's medical records. - Thomas Inquiry Pt receiving controlled substance: Yes Thomas was queried for this patient: Yes Risks and benefits of using a controlled substance: were not discussed with pt by me Vital Signs: 02/23/21 12:59 02/23/21 13:37 02/23/21 15:01 Pulse Rate 85 118 H Pulse Rate [Left Radial] 97 H Respiratory Rate 22 18 Blood Pressure 130/82 148/75 H Blood Pressure [Left Arm] 135/59 L Blood Pressure Mean [Left Arm] 84 Blood Pressure Source Automatic Cuff Blood Pressure Source [Left Arm] Automatic Cuff Blood Pressure Position Sitting Sitting Blood Pressure Position [Left Arm] Sitting 02 Sat by Pulse Oximetry 99 97 96 Oxygen Delivery Method Room Air Room Air Room Air 02/23/21 15:31 02/23/21 16:01 02/23/21 16:34 Pulse Rate 100 H 110 H 120 H Pulse Rate [Left Radial] Respiratory Rate 20 Blood Pressure 131/99 H 149/91 H 146/99 H Blood Pressure [Left Arm] Blood Pressure Mean [Left Arm] Blood Pressure Source Blood Pressure Source [Left Arm] Blood Pressure Position Blood Pressure Position [Left Arm] 02 Sat by Pulse Oximetry 94 L 95 Oxygen Delivery Method Room Air Room Air - Lab Data Lab results reviewed: Yes: I reviewed the patient's lab results. Lab Results 02/23/21 13:43: WBC 13.6 H, RBC 5.04, Hgb 13.4, Hct 42.3, MCV 84.0, MCH 26.5 L, MCHC 31.6 L, RDW 16.2, Plt Count 207, MPV 8.0, Neut % (Auto) 76.3, Lymph % (Auto) 18.0, Gray % (Auto) 3.5, Eos % (Auto) 1.4, Baso % (Auto) 0.8, Neut # (Auto) 10.4 H, Lymph # (Auto) 2.5, Gray # (Auto) 0.5, Eos # (Auto) 0.2, Baso # (Auto) 0.1 02/23/21 13:43: PT 11.9, INR 1.01 02/23/21 13:43: Sodium 132 L, Potassium 4.5, Chloride 97 L, Carbon Dioxide 16 L, Anion Gap 23.5 H, BUN 18 H, Creatinine 0.90, Estimated Creat Clear 46, Estimated GFR 60, Est GFR ( Amer) 72, Glucose 487 H*, Calcium 9.2, Total Bilirubin 1.2, AST 37 H, ALT 24, Alkaline Phosphatase 146 H, Total Protein 6.8, Albumin 4.1, Globulin 2.7, Albumin/Globulin Ratio 1.5, Lipase 11 L 02/23/21 13:43: Lactate 6.9 H 02/23/21 15:14: VBG pH 7.37, VBG pCO2 32.9 L, VBG pO2 65.9 H, VBG HCO3 18.5 L, VBG Total CO2 19.6 L, VBG O2 Saturation 92.0 H, VBG Base Excess -6.8 L 02/23/21 16:20: POC Glucose 460 H* Result diagrams: 02/23/21 13:43 02/23/21 13:43 Orders (Tests/Meds): ED MEDICATIONS Generic Name Dose Route Start Last Admin Trade Name Freq PRN Reason Stop Dose Admin Sodium Chloride 1,000 mls @ 999 mls/hr 02/23/21 16:30 Sod Chlor 0.9% 1000ml Bag IV 02/23/21 17:30 .Q1H1M VALENTINA Morphine Sulfate 4 mg 02/23/21 13:37 02/23/21 14:23 Morphine 4mg/Ml Syringe IV 03/25/21 13:36 4 mg Q2HP PRN Administration Moderate Pain Discontinued Medications Generic Name Dose Route Start Last Admin Trade Name Freq PRN Reason Stop Dose Admin Sodium Chloride 1,000 mls @ 999 mls/hr 02/23/21 14:15 02/23/21 14:32 Sod Chlor 0.9% 1000ml Bag IV 02/23/21 15:15 999 mls/hr .Q1H1M VALENTINA Administration Insulin Human Lispro 10 unit 02/23/21 16:41 02/23/21 16:46 Humalog 100 Units/Ml 3ml Vial (Ssi) SQ 02/23/21 16:42 10 unit ONCE ONE Administration Insulin Lispro Protam/Lispro Human 10 unit 02/23/21 16:30 Humalog Mix 75/25 3ml Flexpen SQ 02/23/21 16:31 ONCE ONE
[2021-02-23 13:54] LABS: Basophils # 0.1 K/mm3 (0-0.2); Basophils % 0.8 % (0.1-2.0); Eosinophils # 0.2 K/mm3 (0.0-0.4); Eosinophils % 1.4 % (0.1-12.0); Hematocrit 42.3 % (37.0-47.0); Hemoglobin 13.4 g/dL (12.2-16.2); Lymphocytes # 2.5 K/mm3 (0.7-4.5); Mean Corpuscular HGB Conc 31.6 g/dL (31.8-35.4); Mean Corpuscular Hemoglobin 26.5 pg (27.0-31.2); Monocytes # 0.5 K/mm3 (0.1-1.0); Monocytes % 3.5 % (1.7-9.3); Neutrophils # 10.4 K/mm3 (1.8-7.8); Neutrophils % 76.3 % (37.0-80.0); Platelet Count 207 K/mm3 (142-424); Red Blood Count 5.04 M/mm3 (4.20-5.40); Red Cell Distribution Width 16.2 % (11.5-17.5); White Blood Count 13.6 K/mm3 (4.8-10.8)
[2021-02-23 13:58] LABS: Chloride 97 mmol/L (98-107)
[2021-02-23 13:59] LABS: Potassium 4.5 mmoL/L (3.5-5.1); Sodium 132 mmol/L (136-145)
[2021-02-23 14:01] LABS: Alanine Aminotransferase 24 U/L (12-78); Alkaline Phosphatase 146 U/L (38-126); Anion Gap 23.5 mEq/L (5-15); Aspartate Amino Transferase 37 U/L (14-36); Bilirubin,Total 1.2 mg/dl (0.2-1.3); Blood Urea Nitrogen 18 mg/dl (7-17); Calcium 9.2 mg/dl (8.4-10.2); Carbon Dioxide 16 mmol/L (22.0-30.0); Creatinine Clearance Estimated 46 mL/min (50-200); Estimated Glomerular Filt Rate 60 ml/min (>60); GFR (African American) 72 ML/MIN (>60); Lipase 11 U/L (23-300)
[2021-02-23 14:02] LABS: Albumin Level 4.1 g/dl (3.5-5.0); Albumin/Globulin Ratio 1.5 (1.1-1.8); Globulin 2.7 g/dL (1.3-3.2); Glucose 487 mg/dl (74-100); Total Protein,Serum 6.8 g/dl (6.3-8.2)
[2021-02-23 14:03] LABS: Lactic Acid 6.9 mmol/L (0.7-2.1)
--- NOTE | 2021-02-23 14:05 | PC.NURSE ---
notified ER of critical lactic and glucose levels
--- NOTE | 2021-02-23 14:06 | ECG_ITS ---
APPROVED REPORT Exam: Resting ECG HR:83 bpm ECG Measurements Heart Rate 83 AXES QRSd 78 QRS 62 QT 404 T 243 QTc 474 Conclusion Demand pacemaker, interpretation is based on intrinsic rhythm Atrial fibrillation with premature ventricular or aberrantly conducted complexes ST & T wave abnormality, old changes Prolonged QT Abnormal ECG Electronically signed by : Alexy Rivera, 03/01/2021 07:41:47
[2021-02-23 14:21] LABS: INR 1.01 (0.9-1.1); Prothrombin Time 11.9 seconds (10.1-12.5)
--- NOTE | 2021-02-23 14:22 | PC.NURSE ---
pt to CT
--- NOTE | 2021-02-23 15:00 | CT_ITS ---
PROCEDURE INFORMATION: Exam: CT Abdomen And Pelvis With Contrast Exam date and time: 02/23/2021 1:08 PM Age: 85 years old Clinical indication: Nausea and vomiting and other: Diarrhea; Generalized; Patient HX: Severe abdominal pain, nausea, vomiting, and diarrhea. Acute onset around 9am this morning. ; Additional info: Left sided weakness, abd pain TECHNIQUE: Imaging protocol: Computed tomography of the abdomen and pelvis with contrast. Radiation optimization: All CT scans at this facility use at least one of these dose optimization techniques: automated exposure control; mA and/or kV adjustment per patient size (includes targeted exams where dose is matched to clinical indication); or iterative reconstruction. Contrast material: ISOVUE; Contrast volume: 75 ml; Contrast route: IV; COMPARISON: CR AAS XR acute abdomen series 02/04/2019 4:07 PM FINDINGS: Pleural spaces: Small right pleural effusion. Liver: Mild diffuse fatty infiltration. No focal lesions. Gallbladder and bile ducts: Normal. No calcified stones. No ductal dilation. Pancreas: Normal. No ductal dilation. Spleen: Normal. No splenomegaly. Adrenal glands: Normal. No mass. Kidneys and ureters: Simple renal cortical cysts measuring up to 3 cm. Otherwise, unremarkable. No stones or hydronephrosis. Stomach and bowel: Diverticula of the descending and sigmoid colon. No associated inflammatory changes. The remaining intestine is unremarkable. No other inflammatory change. No obstruction. Appendix: No evidence of appendicitis. Intraperitoneal space: Unremarkable. No free air. No significant fluid collection. 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 Lymph nodes: Unremarkable. No enlarged lymph nodes. Urinary bladder: Unremarkable as visualized. Reproductive: Unremarkable as visualized. Bones/joints: Unremarkable. No acute fracture. Soft tissues: Unremarkable. IMPRESSION: 1. Colonic diverticular disease without diverticulitis. 2. No other acute findings in the abdomen or pelvis. 3. Small right pleural effusion. COMMENTS: Consistent with the [employer]'s Incidental Findings Committee white paper (J Am Laura Radiol 2018): Any incidental renal lesion less than 1 cm or classified as too small to characterize, or any incidental cystic renal lesion characterized as simple-appearing, is likely benign. No follow-up imaging is recommended for these lesions per consensus recommendations based on imaging criteria.
[2021-02-23 15:26] LABS: VBG Base Excess -6.8 mmol/L (-2.4-2.3); VBG HCO3 18.5 mmol/L (23-30); VBG PCO2 32.9 mmol/L (35-51); VBG PH 7.37 mmol/L (7.31-7.41); VBG PO2 65.9 mmol/L (28-40); VBG Total CO2 19.6 mmol/L (23-27)
--- NOTE | 2021-02-23 15:45 | PC.NURSE ---
per radiology they area having difficulty getting pts ct scans sent to [facility], states she is working on it and will keep us updated on getting them sent and resulted. ER MD is aware of delay
[2021-02-23 15:58] LABS: Adenovirus,PCR Not Detected (NotDetected); Bordetella Pertussis Not Detected (NotDetected); Chlamydophila Pneumoniae, PCR Not Detected (NotDetected); Coronavirus 19, PCR Not Detected (NotDetected); Coronavirus 229E Not Detected (NotDetected); Coronavirus NL63 Not Detected (NotDetected); Coronavirus OC43 Not Detected (NotDetected); Coronovirus HKU1,PCR Not Detected (NotDetected); Human Metapneumovirus Not Detected (NotDetected); Influenza A, PCR Not Detected (NotDetected); Influenza AH1, 2009 Not Detected (NotDetected); Influenza AH1, PCR Not Detected (NotDetected); Influenza AH3,PCR Not Detected (NotDetected); Influenza B, PCR Not Detected (NotDetected); Mycoplasma Pneumoniae, PCR Not Detected (NotDetected); Parainfluenza 1, PCR Not Detected (NotDetected); Parainfluenza 2, PCR Not Detected (NotDetected); Parainfluenza 3, PCR Not Detected (NotDetected); Parainfluenza 4, PCR Not Detected (NotDetected); Respiratory Syncytial Virus Not Detected (NotDetected); Rhinovirus/Enterovirus Not Detected (NotDetected)
--- NOTE | 2021-02-23 16:17 | PC.NURSE ---
batching operator paging dr. pastor who is loss control consultant for dr. aviles
--- NOTE | 2021-02-23 16:18 | PC.NURSE ---
BRENNEN ZAYAS speaking with Dr Corbett
--- NOTE | 2021-02-23 16:22 | PC.NURSE ---
fsbs 460
[2021-02-23 16:30] LABS: POC Glucose,Bedside 460 (70-110)
--- NOTE | 2021-02-23 17:05 | PC.NURSE ---
pt eating ice chips at this time
--- NOTE | 2021-02-23 17:21 | PC.NURSE ---
report called to BRANDYN Pugh on second floor
--- NOTE | 2021-02-23 17:33 | ECG_ITS ---
APPROVED REPORT Exam: Resting ECG HR:131 bpm ECG Measurements Heart Rate 131 AXES QRSd 94 QRS 40 QT 368 T 239 QTc 543 Conclusion Atrial fibrillation with rapid ventricular response Late r wave progression ST & T wave abnormality, unchanged from prior Abnormal ECG Electronically signed by : Alexy Rivera, 03/01/2021 07:41:18
[2021-02-23 17:38] LABS: POC Glucose,Bedside 453 (70-110)
--- NOTE | 2021-02-23 17:38 | PC.NURSE ---
notified ER MD of pt heart rate 110-130s, bp 149/102, EKG obtained per ER MD order
[2021-02-23 17:46] LABS: Reflex Lactic Add Lactic Reflex
--- NOTE | 2021-02-23 18:04 | PC.NURSE ---
Pt placed on O2 @ 2L per NC r/t SaO2 87% on RA sat pt up in bed instructed pt to take deep breaths SaO2 92% on 2L per NC ER gave verbal order for portable chest xray-notified rad of xray order
--- NOTE | 2021-02-23 18:05 | XR_ITS ---
PROCEDURE INFORMATION: Exam: XR Chest Exam date and time: 02/23/2021 6:05 PM Age: 85 years old Clinical indication: Shortness of breath; Prior surgery; Surgery date: 6+ months; Surgery type: Pacemaker; Patient HX: Low o2; Additional info: Low sao2 TECHNIQUE: Imaging protocol: XR of the chest. Views: 1 view. COMPARISON: CR XR CHEST AP 02/23/2021 2:41 PM FINDINGS: Tubes, catheters and devices: Dual chamber cardiac pacemaker in place. Lungs: Chronic appearing interstitial lung markings bilaterally. No acute airspace consolidation. Pleural spaces: Unremarkable. No pleural effusion. No pneumothorax. Heart/Mediastinum: Unremarkable. No cardiomegaly. Bones/joints: Unremarkable. IMPRESSION: No acute findings.
--- NOTE | 2021-02-23 18:31 | PC.NURSE ---
ER gave verbal order for Metoprolol 5mg IV ER at speaking with pt
[2021-02-23 18:46] LABS: Lactic Acid Follow Up (RFLX 1) 4.5 mmol/L (0.7-2.1)
--- NOTE | 2021-02-23 18:48 | PC.NURSE ---
updated report given to Lexy,RN on second floor, notified her pt is ready to be transferred to second floor now. I have placed an order in computer for secured entrance monitor for pt for admission orders. Notified Lexy of this secured entrance monitor order.
[2021-02-23 19:05] LABS: Acetone, Serum (Rapid) None Detected (None Detect)
--- NOTE | 2021-02-23 19:49 | PC.NURSE ---
pt arrived to floor via stretcher
--- NOTE | 2021-02-23 20:26 | PC.NURSE ---
pt unable to identify medications. states she uses clinic pharmacy.
[2021-02-23 20:28] LABS: Reflex Lactic (2 hrs) Add Lactic Reflex
[2021-02-23 21:21] LABS: Lactic Acid Follow up (RFLX 2) 3.8 mmol/L (0.7-2.1)
[2021-02-23 21:43] LABS: Microscopic, Urine URINE MICROSCOPIC (MICROSCOPIC)
[2021-02-23 21:45] LABS: Appearance,Urine SL CLOUDY (Clear); Bilirubin,Urine Negative (Negative); Blood, Urine 3+ (Negative); Color,Urine YELLOW (Yellow); Glucose,Urine (UA) 3+ (Negative); Ketones,Urine TRACE (Negative); Leukocyte Esterase,Urine TRACE (Negative); Nitrate,Urine Negative (Negative); Protein,Urine 1+ (Negative)
[2021-02-23 21:51] LABS: Bacteria,Urine Trace /lpf; RBC,Urine TNTC #/hpf (0-3); WBC,Urine 20-50 #/hpf (0-3)
[2021-02-24] VITALS (10 sets, daily range): BP systolic 91–123; BP diastolic 56–69; PULSE 60–120; RESP 16–20; TEMP 36.4–37; O2SAT 93–97; BMI 25.0
--- NOTE | 2021-02-24 03:19 | PC.NURSE ---
pt admitted with hyperglycemia and lactic acidosis. pt has a diarrhea panel ordered but has had no bm since arrival to floor. incontinent of urine. alert and oriented. iv patent. telemetry in place and reads uncontrolled afib with frequent PVC's ( at time 3-4 beat runs). pt is asymptomatic and sleeping at this time. pt ate dinner on arrival to floor without difficulty. family at bedside. no complaints voiced. call light in reach. will continue to monitor
[2021-02-24 03:56] LABS: POC Glucose,Bedside 330 (70-110)
--- NOTE | 2021-02-24 04:00 | PC.NURSE ---
pt alert and oriented. afib with pacer on telemetry. 2LNC in use. slept intermittently this shift. family at bedside. pt ate dinner on arrival to floor and had no difficulty or complaints. no n/v/d. diarrhea panel ordered but has not had a bm since arrival to floor. call light in reach. will continue to monitor pt condition
[2021-02-24 05:47] LABS: Lactic Acid 1.5 mmol/L (0.7-2.1)
[2021-02-24 05:48] LABS: Alanine Aminotransferase 17 U/L (12-78); Albumin Level 3.2 g/dl (3.5-5.0); Albumin/Globulin Ratio 1.3 (1.1-1.8); Alkaline Phosphatase 93 U/L (38-126); Anion Gap 11.5 mEq/L (5-15); Aspartate Amino Transferase 48 U/L (14-36); Bilirubin,Total 0.9 mg/dl (0.2-1.3); Blood Urea Nitrogen 19 mg/dl (7-17); Carbon Dioxide 20 mmol/L (22.0-30.0); Chloride 104 mmol/L (98-107); Creatinine Clearance Estimated 43 mL/min (50-200); Estimated Glomerular Filt Rate 69 ml/min (>60); GFR (African American) 83 ML/MIN (>60); Globulin 2.5 g/dL (1.3-3.2); Glucose 265 mg/dl (74-100); Potassium 4.5 mmoL/L (3.5-5.1); Sodium 131 mmol/L (136-145); Total Protein,Serum 5.7 g/dl (6.3-8.2)
[2021-02-24 05:54] LABS: Calcium 7.9 mg/dl (8.4-10.2)
[2021-02-24 05:56] LABS: Basophils % 0.4 % (0.1-2.0); Eosinophils % 0.4 % (0.1-12.0); Hematocrit 35.9 % (37.0-47.0); Lymphocytes # 1.1 K/mm3 (0.7-4.5); Lymphocytes % 12.7 % (10-50); Mean Corpuscular HGB Conc 32.1 g/dL (31.8-35.4); Mean Corpuscular Hemoglobin 26.8 pg (27.0-31.2); Mean Corpuscular Volume 83.4 fl (81-99); Monocytes # 0.5 K/mm3 (0.1-1.0); Monocytes % 5.2 % (1.7-9.3); Neutrophils # 7.1 K/mm3 (1.8-7.8); Neutrophils % 81.3 % (37.0-80.0); Platelet Count 122 K/mm3 (142-424); Red Blood Count 4.31 M/mm3 (4.20-5.40); Red Cell Distribution Width 16.2 % (11.5-17.5); White Blood Count 8.8 K/mm3 (4.8-10.8)
[2021-02-24 05:58] LABS: POC Glucose,Bedside 267 (70-110)
[2021-02-24 06:00] LABS: Hemoglobin 11.5 g/dL (12.2-16.2)
--- NOTE | 2021-02-24 06:35 | PC.NURSE ---
pt states she doesn't use home o2. room air obtained and o2 sat 90%. removed o2 at this time
--- NOTE | 2021-02-24 07:51 | HMH.PHAVTE ---
[facility] Pharmacy VTE Monitoring - Patient Demographics Admission date: 02/23/21 Report Date: 02/24/21 Time: 07:51 Allergies/Adverse Reactions: Patient Allergies No Known Allergies Allergy (Verified 02/18/21 10:39) Height: 1.6 m Weight: 64.212 kg Patient Problems: Current Active Problems Hyperglycemia due to diabetes mellitus (Acute) Lactic acidosis (Acute) Viral gastroenteritis (Acute) - VTE Risk Labs: VTE Related Lab Results Hgb 11.5 g/dL (12.2-16.2) L D 02/24/21 05:33 Hct 35.9 % (37.0-47.0) L 02/24/21 05:33 Plt Count 122 K/mm3 (142-424) L D 02/24/21 05:33 PT 11.9 seconds (10.1-12.5) 02/23/21 13:43 INR 1.01 (0.9-1.1) 02/23/21 13:43 BUN 19 mg/dl (7-17) H 02/24/21 05:33 Creatinine 0.80 mg/dl (0.52-1.04) 02/24/21 05:33 Estimated Creat Clear 43 mL/min (50-200) 02/24/21 05:33 Was VTE Risk Assessment Performed: Yes VTE Score: 2 VTE Risk Level: Very Low Risk - Prophylaxis VTE Prophylaxis Ordered?: Yes Types of VTE Prophylaxis: TEDS Knee High Location of Applied Device: Bilateral Lower Extremeties
--- NOTE | 2021-02-24 09:09 | HMH.HP ---
*Admission Date: 02/23/21 *Chief complaint: abd pain *History of present illness: 85 yr old female Patient was brought in by her son via PV for headache, nausea, vomiting, left-sided facial droop. Patient states that yesterday she called son to inform him she had a horrible headache. Patient states she was vomiting with the headache and then noticed a left-sided facial droop which is different from usual. Patient states abdominal tenderness. Patient admitted for further work up, elevated lactic acid,glucose. Pt ct head and abd neg. will monitor mental status and labs. [facility] History I have reviewed the patient's past medical history: Yes Medical History: Reports:: Atrial Fibrillation, Cardiomyopathy, Congestive Heart Failure, Coronary Artery Disease, Gastroesophageal Reflux Disease(GERD), Hyperlipidemia, Hypertension, Internal Pacemaker, Peripheral Artery Disease Denies:: Cancer, Diabetes Mellitus Type 1, Diabetes Mellitus Type 2, MRSA, Seizures *Have you ever received a pneumonia vaccine?: Yes *Have you received a flu vaccine this season?: Yes Other Medical History: Reports: Anemia, Arthritis, Other. Denies: Blood Transfusion Reaction Laterality Cases: Bilateral: Tonsillectomy Other Surgeries: Yes: Appendectomy, Cardiac Catheterization (01/28/18 1 stent), Cholecystectomy, Colonoscopy, Hysterectomy-Total, Pacemaker, Other Amputation: No Fractures: Yes (l ankle) - *Social History Smoking Status: Never smoker Alcohol Intake: never Alcohol Intake Frequency:: other *Occupational Status:: retired Housing: house Household Members: children *Travel in the last 8 weeks: None Family Hx:: No significant family history Review of Systems - Review of Systems Review of systems:: pertinent systems reviewed and negative unless documented below - Constitutional Reports fatigue, Reports lack of energy, Denies body ache(s), Denies fever(s) - Eyes Denies blurry vision - ENT Denies bleeding gums - *Cardiovascular Denies chest pain with activity, Denies generalized swelling - *Respiratory Reports cough, Denies chest congestion, Denies excessive phlegm production - *Gastrointestinal Reports abdominal pain, Reports nausea, Reports vomiting, Denies bloating, Denies loose stools - *Genitourinary Denies urinary incontinence - *Musculoskeletal Denies joint pain - Integumentary/Breasts Denies change in hair, Denies rash - *Neurologic Reports headache(s), Denies abnormal movements, Denies dizziness - Psychiatric Denies anxiety - Endocrine Denies excessive sweating - Hematologic/Lymphatic Denies easy bruising - Allergic/Immunologic Denies itchy eyes Meds Home Medications Medication Instructions Recorded Confirmed Type aspirin 81 mg tablet,delayed 81 mg PO DAILY 10/05/17 02/18/21 History release atorvastatin 10 mg tablet 10 mg PO HS 10/05/17 02/18/21 History sertraline 100 mg tablet 50 mg PO DAILY 10/05/17 02/18/21 History Docusate Sodium [Colace] 100 mg PO DAILY 05/25/18 02/18/21 History Cetirizine HCl 5 mg PO DAILY 11/18/20 02/18/21 History Ferrous Sulfate [Ferrous Sulfate 325 mg PO DAILY 11/18/20 02/18/21 History 325mg Tablet] Isosorbide Mononitrate [Imdur 30mg 30 mg PO DAILY 11/18/20 02/18/21 History ER tablet] Levothyroxine Sodium 50 mcg PO DAILY 11/18/20 02/18/21 History [Levothyroxine 50mcg (0.05mg) Tab] Mirabegron [Myrbetriq] 25 mg PO DAILY 11/18/20 02/18/21 History Mirtazapine 7.5 mg PO HS 11/18/20 02/18/21 History Omeprazole [Omeprazole 20mg 20 mg PO DAILY 11/18/20 02/18/21 History Capsule] buPROPion HCL [Wellbutrin XL] 150 mg PO DAILY 11/19/20 02/18/21 History Digoxin [Digoxin 0.125mg Tablet] 125 mcg PO DAILY #30 tab 11/21/20 02/18/21 Rx Rivaroxaban [Xarelto 15mg tablet] 15 mg PO QPMWM 1 Days #30 tab 11/21/20 02/18/21 Rx bisoprolol fumarate 5 mg tablet 2.5 mg PO DAILY tab 12/30/20 02/18/21 History insulin glargine 100 unit/mL (3 15 unit SQ HS ml 12/30/20 02/18/21 History mL) subcutan
--- NOTE | 2021-02-24 09:22 | HMH.PHAINT ---
MEDICATION RECONCILIATION COMPLETED ON PATIENT USING EXTERNAL FILL HISTORY FROM PHARMACY, LIST FROM CARDIOLOGY OFFICE, AND PHONE CALL TO CLINIC PHARMACY. -PINO RIBERAD
[2021-02-24 10:59] LABS: POC Glucose,Bedside 221 (70-110)
--- NOTE | 2021-02-24 15:17 | PC.NURSE ---
No acute changes. Remains on room air. Paced on tely. Mehran assist to bathroom, has been continent of B&B this shift. Pt reports having a BM this AM. Voiding w/o difficulty. Family remain @ bedside. Encouraged to sit up in chair today. No complaints voiced. Call felisha w/in reach.
[2021-02-24 16:58] LABS: POC Glucose,Bedside 221 (70-110)
[2021-02-24 20:27] LABS: POC Glucose,Bedside 229 (70-110)
[2021-02-25] VITALS: PULSE 70
[2021-02-25 04:00] VITALS: BP 98/48; PULSE 70; PULSE 74; RESP 17; TEMP 36.4; O2SAT 94
--- NOTE | 2021-02-25 04:21 | PC.NURSE ---
alert and oriented. sat up in chair at start of shift. had a shower. iv patent. vss. pt states no complaints. bed alarm set at this time. standby assist with ambulation. will continue to monitor
[2021-02-25 04:59] VITALS: BMI 25.0
[2021-02-25 06:08] LABS: POC Glucose,Bedside 147 (70-110)
[2021-02-25 06:30] LABS: Basophils % 0.4 % (0.1-2.0); Eosinophils # 0.1 K/mm3 (0.0-0.4); Eosinophils % 1.2 % (0.1-12.0); Hematocrit 37.6 % (37.0-47.0); Hemoglobin 11.9 g/dL (12.2-16.2); Lymphocytes # 1.7 K/mm3 (0.7-4.5); Lymphocytes % 20.1 % (10-50); Mean Corpuscular HGB Conc 31.6 g/dL (31.8-35.4); Mean Corpuscular Volume 85.6 fl (81-99); Mean Platelet Volume 8.5 fl (7.4-10.4); Monocytes # 0.4 K/mm3 (0.1-1.0); Monocytes % 4.9 % (1.7-9.3); Neutrophils # 6.1 K/mm3 (1.8-7.8); Neutrophils % 73.4 % (37.0-80.0); Platelet Count 115 K/mm3 (142-424); Red Blood Count 4.39 M/mm3 (4.20-5.40); Red Cell Distribution Width 16.8 % (11.5-17.5); White Blood Count 8.2 K/mm3 (4.8-10.8)
[2021-02-25 06:37] LABS: Anion Gap 12.7 mEq/L (5-15); Blood Urea Nitrogen 27 mg/dl (7-17); Calcium 8.5 mg/dl (8.4-10.2); Carbon Dioxide 22 mmol/L (22.0-30.0); Chloride 105 mmol/L (98-107); Creatinine Clearance Estimated 36 mL/min (50-200); Estimated Glomerular Filt Rate 43 ml/min (>60); GFR (African American) 52 ML/MIN (>60); Glucose 141 mg/dl (74-100); Potassium 4.7 mmoL/L (3.5-5.1); Sodium 135 mmol/L (136-145)
[2021-02-25 07:56] VITALS: BP 111/66; PULSE 85; RESP 18; TEMP 36.6; O2SAT 95
[2021-02-25 08:00] VITALS: PULSE 80
[2021-02-25 08:29] VITALS: PULSE 85
--- NOTE | 2021-02-25 08:51 | P.PN_ITS ---
Internal Medicine - PN: Subj *Date: 02/25/21 *Time: 08:51 Exam Vital signs and Labs for Last 24 Hours: Temp Pulse Resp BP Pulse Ox 97.8 F 85 18 111/66 95 02/25/21 07:56 02/25/21 08:29 02/25/21 07:56 02/25/21 07:56 02/25/21 07:56 Laboratory Results - last 24 hr 02/24/21 10:38: POC Glucose 221 H 02/24/21 16:43: POC Glucose 221 H 02/24/21 20:05: POC Glucose 229 H 02/25/21 05:51: POC Glucose 147 H 02/25/21 05:54: WBC 8.2, RBC 4.39, Hgb 11.9 L, Hct 37.6, MCV 85.6, MCH 27.0, MCHC 31.6 L, RDW 16.8, Plt Count 115 L, MPV 8.5, Neut % (Auto) 73.4, Lymph % ( Auto) 20.1, [place] % (Auto) 4.9, Eos % (Auto) 1.2, Baso % (Auto) 0.4, Neut # (Auto) 6.1, Lymph # (Auto) 1.7, [place] # (Auto) 0.4, Eos # (Auto) 0.1, Baso # (Auto) 0.0 02/25/21 05:54: Sodium 135 L, Potassium 4.7, Chloride 105, Carbon Dioxide 22, Anion Gap 12.7, BUN 27 H D, Creatinine 1.20 H D, Estimated Creat Clear 36, Estimated GFR 43 L, Est GFR ( Amer) 52 L D, Glucose 141 H, Calcium 8.5 I & O for Last 24 hours: Intake & Output 02/22/21 02/23/21 02/24/21 02/25/21 23:59 23:59 23:59 23:59 Intake Total 420 / 540 1330 / 1330 360 / 360 Balance 420 / 540 1330 / 1330 360 / 360 Weight 140 lb 3 oz 141 lb 1.533 oz 141 lb 8 oz Microbiology Reports for the Last 24 Hours: Microbiology 02/23/21 21:30 Urine,Catheterized Urine Culture - Preliminary NO GROWTH AFTER 24 HOURS Assessment and Plan (1) Hyperglycemia due to diabetes mellitus Status: Acute Category: Medical Code(s): E11.65 - Type 2 diabetes mellitus with hyperglycemia (2) Lactic acidosis Status: Acute Category: Medical Code(s): E87.2 - Acidosis (3) Viral gastroenteritis Status: Acute Category: Medical Code(s): A08.4 - Viral intestinal infection, unspecified (4) Acute renal insufficiency Status: Acute Category: Medical Code(s): N28.9 - Disorder of kidney and ureter, unspecified
--- NOTE | 2021-02-25 09:44 | CA_ITS ---
APPROVED REPORT EXAM: Comprehensive 2D, Doppler, and color-flow Echocardiogram Silverware Cleaner: Aleja Short, RCS, RVS Ht: 5 ft 3 in Wt: 141lbs BSA: 1.67 BP: 111/66 mmHg Indications: SOA, CAD, severe TR ,HTN, HLD, murmurs 2D Dimensions IVSd 1.10 cm LVEF (Visual) 68.90 % PWd 0.89 cm LA Volume 53.40 mL LVDd 4.25 cm LA Volume Index 32.00 mL/m2 (M/F) 16-34 LVDs 2.62 cm LVOT 1.72 cm (M/F) 1.5-2.5 M-Mode Dimensions RVDd 4.10 cm (0.9-2.6) LA Diam 4.31 cm (1.9-4.0) LVDd 4.22 cm (3.5-5.7) Ao Diam 3.03 cm (2.0-3.7) LVDs 2.85 cm (3.5-5.7) IVSd 0.91 cm (0.6-1.1) PWd 0.80 cm (0.6-1.1) EF (Teich) 56.90% EPSs 0.69 cm FS 29.50% EDV (Teich) 71.70 mL TAPSE 2.04 (<1.7) ESV (Teich) 30.90 mL LV Diastology E Decel Time 177.00 (160-240 msec) E/A Ratio 5.05 MED E' 16.30 (< 7 cm/sec) E'/MED E' Ratio 5.09 (>14) LAT E' 11.70 (<10 cm/sec) LAT A' 2.80 cm/s E/LAT E' Ratio 7.09 (>14) Aortic Valve LVOT Max 65.00 (70-110 cm/s) LVOT VTI 9.99 cm AoV Peak Baljit. 93.00 (50-130 cm/s) AO Peak GR. 3.50 mmHg AO Mean GR. 2.00 (<5 mmHg) AO VTI 17.44 (18-25 cm) [place] (VTI) 1.33 (2.5-4.5 cm2) Mitral Valve MV A Velocity 16.00 (40-130 cm/s) E/A Ratio 5.05 MV Decel. Time 177.00 (160-240 ms) Pulmonary Valve PV Peak Velocity 61.00 (50-150 cm/s) Tricuspid Valve TR P. Velocity 246.00 cm/s RAP Estimate 10.00 mmHg RVSP 34.20 mmHg Left Ventricle Left atrium is moderately enlarged, left ventricle is mildly dilated, there is severe his left ventricular systolic function, visually estimated ejection fraction approximately 30%, there is marked hypokinesis involving the mid to distal septum, anterior, and anterior apical wall. Diastolic parameters are inconclusive. Right Ventricle Right atrium and right ventricle are moderately enlarged, contractility of the right ventricle is normal. Aortic Valve Aortic valve is minimally thickened and fibrosed, there is no aortic stenosis or aortic insufficiency. Mitral Valve Mitral valve leaflets are minimally thickened, there is no mitral stenosis, there is mild mitral regurgitation. Tricuspid Valve Tricuspid annulus is dilated, tricuspid valve leaflets are minimally thickened, there is moderate to severe tricuspid regurgitation, calculated right ventricular systolic pressure is 34 mmHg. Pulmonic Valve Pulmonic valve is poorly visualized. Great Vessels Aortic root is normal size. Pericardium No significant pericardial effusion noted. Conclusion 1. Moderate biatrial enlargement, mildly dilated left ventricle, severe reduced left ventricular systolic function, visually estimated ejection fraction 30% with multiple segmental wall motion abnormality described above, diastolic parameters are inconclusive. 2. Moderately enlarged right ventricle with normal contractility. 3. Mild mitral and moderate to severe tricuspid regurgitation, calculated right ventricular systolic pressure 34 mmHg. 4. No significant pericardial effusion noted, inferior vena cava is not well visualized. Electronically signed by : Luis Wylie, 02/25/2021 19:16:55
[2021-02-25 11:46] LABS: POC Glucose,Bedside 215 (70-110)
[2021-02-25 12:00] VITALS: BP 94/60; PULSE 76; PULSE 80; RESP 19; O2SAT 94
[2021-02-25 12:29] LABS: POC Glucose,Bedside 204 (70-110)
--- NOTE | 2021-02-25 14:12 | HMH.DCSUM ---
General - General Admission date:: 02/23/21 Discharge date: 02/25/21 HPI HPI: 85 yr old female Patient was brought in by her son via PV for headache, nausea, vomiting, left-sided facial droop. Patient states that yesterday she called son to inform him she had a horrible headache. Patient states she was vomiting with the headache and then noticed a left-sided facial droop which is different from usual. Patient states abdominal tenderness. Patient admitted for further work up, elevated lactic acid,glucose. Pt ct head and abd neg. will monitor mental status and labs. Hospital Course Hospital Course: 85 yr old female Patient was brought in by her son via PV for headache, nausea, vomiting, left-sided facial droop. Patient states that yesterday she called son to inform him she had a horrible headache. Patient states she was vomiting with the headache and then noticed a left-sided facial droop which is different from usual. Patient states abdominal tenderness. Patient admitted for further work up, elevated lactic acid,glucose. Head CT: FINDINGS: Brain: No acute changes. No hemorrhage or evidence of acute ischemia. No edema. No mass or mass effect. The sulci are again noted to be prominent over the convexities. Cerebral ventricles: Mild prominence of the ventricular system secondary to volume loss is again noted. Again noted is a cavum septum pellucidum and cavum vergae. Otherwise, no acute change. Bones/joints: Unremarkable. No acute fracture. Paranasal sinuses: Visualized sinuses are unremarkable. No fluid levels. Mastoid air cells: Visualized mastoid air cells are well aerated. Soft tissues: Unremarkable. IMPRESSION: 1. No acute intracranial changes. 2. Generalized cerebral atrophy. ASSESSMENT: ASPECTS ([place] Stroke Program Early CT Score) is 10. Electronically signed by Armando Warner MD 02/23/21 Chest CTA: FINDINGS: Pulmonary arteries: Normal. No pulmonary emboli. Aorta: Unremarkable. No aortic aneurysm. No aortic dissection. Lungs: Unremarkable. No consolidation. No masses. Pleural spaces: Small right pleural effusion which is smaller compared to the prior study. Heart: Unremarkable. No cardiomegaly. No pericardial effusion. Lymph nodes: Unremarkable. No enlarged lymph nodes. Bones/joints: Unremarkable. No acute fracture. Soft tissues: Unremarkable. IMPRESSION: 1. Small right pleural effusion. 2. No other acute cardiopulmonary disease. No pulmonary embolus. Electronically signed by Armando Warner MD 02/23/21 Abd/Pelvis CTA: FINDINGS: Pleural spaces: Small right pleural effusion. Liver: Mild diffuse fatty infiltration. No focal lesions. Gallbladder and bile ducts: Normal. No calcified stones. No ductal dilation. Pancreas: Normal. No ductal dilation. Spleen: Normal. No splenomegaly. Adrenal glands: Normal. No mass. Kidneys and ureters: Simple renal cortical cysts measuring up to 3 cm. Otherwise, unremarkable. No stones or hydronephrosis. Stomach and bowel: Diverticula of the descending and sigmoid colon. No associated inflammatory changes. The remaining intestine is unremarkable. No other inflammatory change. No obstruction. Appendix: No evidence of appendicitis. Intraperitoneal space: Unremarkable. No free air. No significant fluid collection. 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 Lymph nodes: Unremarkable. No enlarged lymph nodes. Urinary bladder: Unremarkable as visualized. Reproductive: Unremarkable as visualized. Bones/joints: Unremarkable. No acute fracture. Soft tissues: Unremarkable. IMPRESSION: 1. Colonic diverticular disease without diverticulitis. 2. No other acute findings in the abdomen or pelvis. 3. Small right pleural effusion. Electronically signed by Armando Warner MD 02/25/21 ECHO: Conclusion 1. Moderate biatrial enlargement, mildly dilated left ventricle,
[2021-03-17 11:50] LABS: POC Glucose,Bedside 434 (70-110)
== END 2021-02-25 15:38 | disposition home or self-care (01) ==
LOC: ER 13:19 → 2ND 17:10
PROVIDERS: Nurse Practitioner Family; Admitting Provider Family Medicine; Emergency Provider Emergency Medicine; PCP Emergency Medicine; Visit Provider Emergency Medicine
DX: E11.65 Type 2 diabetes mellitus with hyperglycemia (principal); E87.2 Acidosis; A08.4 Viral intestinal infection, unspecified; N28.9 Disorder of kidney and ureter, unspecified; Z79.4 Long term (current) use of insulin; Z79.82 Long term (current) use of aspirin; I25.10 Atherosclerotic heart disease of native coronary artery without angina pectoris; Z95.5 Presence of coronary angioplasty implant and graft; M19.90 Unspecified osteoarthritis, unspecified site; E78.5 Hyperlipidemia, unspecified; K21.9 Gastro-esophageal reflux disease without esophagitis; I11.0 Hypertensive heart disease with heart failure; I50.9 Heart failure, unspecified; R29.810 Facial weakness; Z95.0 Presence of cardiac pacemaker; R51.9 Headache, unspecified
CPT/HCPCS: 36415; 70450; 71045; 71275; 74177; 80048; 80053; 81001; 82009; 82803; 82962; 83605; 83690; 85025; 85610; 87086; 87581; 87633; 87798; 93005; 93306; 96365; 96366; 96375; 96376; 97161; 99284; G0378; J2405; Q9967

== ENCOUNTER 2021-04-22 19:54 | Observation (INO) | payer MEDICARE, MEDICAID, SELFPAY ==
[2021-04-22 20:01] VITALS: BP 116/70; PULSE 71; RESP 18; TEMP 37.1; O2SAT 99
--- NOTE | 2021-04-22 20:06 | ECG_ITS ---
APPROVED REPORT Exam: Resting ECG HR:70 bpm ECG Measurements Heart Rate 70 AXES OH 160 P 92 QRSd 54 QRS 0 QT 304 T 97 QTc 328 Conclusion Electronic atrial pacemaker Abnormal ECG Electronically signed by : Alexy Rivera, 04/24/2021 14:30:53
--- NOTE | 2021-04-22 20:06 | CT_ITS ---
PROCEDURE INFORMATION: Exam: CT Abdomen And Pelvis With Contrast Exam date and time: 04/22/2021 8:06 PM Age: 85 years old Clinical indication: Nausea; Prior surgery; Additional info: Acute incontinence of bowel and bladder TECHNIQUE: Imaging protocol: Computed tomography of the abdomen and pelvis with contrast. Radiation optimization: All CT scans at this facility use at least one of these dose optimization techniques: automated exposure control; mA and/or kV adjustment per patient size (includes targeted exams where dose is matched to clinical indication); or iterative reconstruction. Contrast material: ISOVUE; Contrast volume: 75 ml; Contrast route: IV; COMPARISON: CT ANGIO CHEST 02/23/2021 2:25 PM FINDINGS: Pleural spaces: Moderate right and trace left pleural effusions with associated streaky basilar airspace opacities. Heart: Mild cardiomegaly. 8 mm pericardial effusion best appreciated on coronal projection. Partially visualized cardiac pacing wires. Mediastinal space: Small hiatal hernia. Liver: Normal. No mass. Gallbladder and bile ducts: Gallbladder is not visualized. Pancreas: Fatty atrophy of the pancreas. Spleen: No splenomegaly. Adrenal glands: No mass. Kidneys and ureters: Renal cysts measuring up to 3.1 cm. No hydronephrosis. Stomach and bowel: Diffuse wall thickening of the colon with adjacent inflammatory stranding. Diverticulosis coli. Appendix: No evidence of appendicitis. Intraperitoneal space: No free air. Trace ascites. Vasculature: Calcified atherosclerosis. No aneurysm. Lymph nodes: No enlarged lymph nodes. Urinary bladder: No acute abnormality. Reproductive: 17 mm hyperdense structure within the region of the left adnexa. Bones/joints: Degenerative changes of the spine. No fracture. Soft tissues: No soft tissue swelling. IMPRESSION: 1. Diffuse wall thickening of the colon with adjacent inflammatory stranding compatible with colitis. 2. 17 mm hyperdense structure within the region of the left adnexa which is indeterminate but may be residual ovarian tissue. Correlation. 3. Diverticulosis coli. 4. Moderate right and trace left pleural effusions with associated streaky basilar airspace opacities which may be on the basis atelectasis or pneumonia. 5. Mild cardiomegaly with small pericardial effusion. 6. Small hiatal hernia. COMMENTS: Consistent with the [employer]'s Incidental Findings Committee white paper (J Am Laura Radiol 2018): Any incidental renal lesion less than 1 cm or classified as too small to characterize, or any incidental cystic renal lesion characterized as simple-appearing, is likely benign. No follow-up imaging is recommended for these lesions per consensus recommendations based on imaging criteria.
--- NOTE | 2021-04-22 20:06 | XR_ITS ---
PROCEDURE INFORMATION: Exam: XR Chest Exam date and time: 04/22/2021 8:06 PM Age: 85 years old Clinical indication: Other: Weakness; Prior surgery; Additional info: Change in continence TECHNIQUE: Imaging protocol: XR of the chest. Views: 2 views. COMPARISON: CR XR CHEST PORTABLE 02/23/2021 6:12 PM FINDINGS: Tubes, catheters and devices: Cardiac pacing device in the left chest wall. Lungs: Streaky basilar airspace opacities. Interstitial coarsening. No lobar consolidation. Pleural spaces: Moderate right and trace left pleural effusions. Heart/Mediastinum: Stable cardiomegaly. Bones/joints: Degenerative changes of the shoulders. IMPRESSION: Cardiomegaly with effusions and streaky basilar airspace opacities and mild interstitial coarsening. Follow-up to radiographic clearance is recommended.
--- NOTE | 2021-04-22 20:15 | HMH.EDNVD ---
ED Disposition Clinical Impression: Colitis, Cardiac pacemaker in situ CHF (congestive heart failure) Qualifiers: Heart failure type: unspecified Heart failure chronicity: acute on chronic Qualified Code(s): I50.9 - Heart failure, unspecified Disposition: Admitted as Observation Condition on Discharge: Good Instructions: DI for Acute Abdominal Pain Referrals: Marcel Hylton MD [Primary Care Provider] - - Critical Care Critical Care Time: No Attestation: On 04/22/21, the high probability of a clinically significant, sudden or life threatening deterioration of the following system(s) required my full and direct attention, intervention and personal management. The time I documented below is in addition to time spent performing reported procedures but includes the following listed in this critical care notation. Medical Decision Making - Medical Records Medical records reviewed: Yes: I reviewed the patient's medical records. - Thomas Inquiry Pt receiving controlled substance: No Vital Signs: 04/22/21 20:01 Temperature 98.7 F Temperature Source Oral Pulse Rate [Right Brachial] 71 Respiratory Rate 18 Blood Pressure [Right Arm] 116/70 Blood Pressure Mean [Right Arm] 85 Blood Pressure Source [Right Arm] Automatic Cuff Blood Pressure Position [Right Arm] Sitting 02 Sat by Pulse Oximetry 99 Oxygen Delivery Method Room Air - Lab Data Lab results reviewed: Yes: I reviewed the patient's lab results. Lab Results 04/22/21 20:12: WBC 12.5 H, RBC 4.68, Hgb 13.0, Hct 39.8, MCV 85.2, MCH 27.8, MCHC 32.6, RDW 17.4, Plt Count 175, MPV 8.2, Neut % (Auto) 85.0 H, Lymph % (Auto) 9.4 L, [place] % (Auto) 3.9, Eos % (Auto) 1.2, Baso % (Auto) 0.4, Neut # (Auto) 10.6 H, Lymph # (Auto) 1.2, [place] # (Auto) 0.5, Eos # (Auto) 0.2, Baso # (Auto) 0.1 04/22/21 20:12: Sodium 137, Potassium 3.5, Chloride 94 L, Carbon Dioxide 30, Anion Gap 16.5 H, BUN 15, Creatinine 0.90, Estimated Creat Clear 53, Estimated GFR 60, Est GFR ( Amer) 72, Glucose 172 H, Calcium 8.7, Total Bilirubin 1.4 H, AST 28, ALT 18, Alkaline Phosphatase 112, Troponin I 0.03, Total Protein 6.9, Albumin 3.9, Globulin 3.0, Albumin/Globulin Ratio 1.3, Amylase 33, Lipase < 10 L 04/22/21 20:12: C-Reactive Protein 37.9 H, NT-Pro-B Natriuret Pep 8290 H 04/22/21 20:12: ESR 21 04/22/21 20:12: Procalcitonin 0.089 04/22/21 20:41: SARS-CoV-2 (PCR) Not detected, Influenza A Untype (PCR) Not detected, Influenza Type B (PCR) Not detected Result diagrams: 04/22/21 20:12 04/22/21 20:12 Orders (Tests/Meds): ED MEDICATIONS Generic Name Dose Route Start Last Admin Trade Name Freq PRN Reason Stop Dose Admin Sodium Chloride 1,000 mls @ 999 mls/hr 04/22/21 20:45 04/22/21 20:45 Sod Chlor 0.9% 1000ml Bag IV 04/22/21 21:45 999 mls/hr .Q1H1M VALENTINA Administration Discontinued Medications Generic Name Dose Route Start Last Admin Trade Name Freq PRN Reason Stop Dose Admin Iopamidol 75 ml 04/22/21 21:15 04/22/21 21:16 Iopamidol-370 (76%);100ml Bottle IV 04/22/21 21:16 75 ml ONCE ONE Administration Sodium Chloride 10 ml 04/22/21 21:15 04/22/21 21:16 Sodium Chloride 0.9% 10ml Syr (Rad Only) IV 04/22/21 21:16 10 ml ONCE ONE Administration ORDERS Category Date Time Status Complete Blood Count Auto Diff Stat Lab 04/22/21 20:12 Results Diarrhea 6-11 Panel, Cdiff PCR Stat Lab 04/22/21 20:09 Ordered Troponin I Q3H Lab 04/22/21 23:15 Ordered Troponin I Q3H Lab 04/23/21 02:15 Ordered Urinalysis and Microscopic Stat Lab 04/22/21 20:09 Ordered - Radiology Data #1 Image(s): Chest Image Reviewed: Yes I reviewed the patient's radiology image Preliminary Findings: Abnormal (see report ) - CT Data CT Scan: Abdomen, Pelvis Time Received: 21:[address] Reviewed: Yes: I have viewed the radiologist's interpretation Preliminary Findings: Abnormal (colitis ) - ECG Data Tracing #1 Arrhythmias present: other (pacemaker ) [employer] [facility]
[2021-04-22 20:21] LABS: Basophils # 0.1 K/mm3 (0-0.2); Basophils % 0.4 % (0.1-2.0); Eosinophils # 0.2 K/mm3 (0.0-0.4); Eosinophils % 1.2 % (0.1-12.0); Hematocrit 39.8 % (37.0-47.0); Lymphocytes # 1.2 K/mm3 (0.7-4.5); Lymphocytes % 9.4 % (10-50); Mean Corpuscular HGB Conc 32.6 g/dL (31.8-35.4); Mean Corpuscular Hemoglobin 27.8 pg (27.0-31.2); Mean Corpuscular Volume 85.2 fl (81-99); Mean Platelet Volume 8.2 fl (7.4-10.4); Monocytes # 0.5 K/mm3 (0.1-1.0); Monocytes % 3.9 % (1.7-9.3); Neutrophils # 10.6 K/mm3 (1.8-7.8); Platelet Count 175 K/mm3 (142-424); Red Blood Count 4.68 M/mm3 (4.20-5.40); Red Cell Distribution Width 17.4 % (11.5-17.5); White Blood Count 12.5 K/mm3 (4.8-10.8)
[2021-04-22 20:25] LABS: MANUAL DIFFERENTIAL MANUAL DIFFERENTIAL (MANUAL DIFF)
[2021-04-22 20:30] LABS: Alanine Aminotransferase 18 U/L (12-78); Albumin Level 3.9 g/dl (3.5-5.0); Albumin/Globulin Ratio 1.3 (1.1-1.8); Alkaline Phosphatase 112 U/L (38-126); Amylase 33 U/L (30-110); Anion Gap 16.5 mEq/L (5-15); Aspartate Amino Transferase 28 U/L (14-36); Bilirubin,Total 1.4 mg/dl (0.2-1.3); Blood Urea Nitrogen 15 mg/dl (7-17); Calcium 8.7 mg/dl (8.4-10.2); Carbon Dioxide 30 mmol/L (22.0-30.0); Chloride 94 mmol/L (98-107); Creatinine Clearance Estimated 53 mL/min (50-200); Estimated Glomerular Filt Rate 60 ml/min (>60); GFR (African American) 72 ML/MIN (>60); Glucose 172 mg/dl (74-100); Potassium 3.5 mmoL/L (3.5-5.1); Sodium 137 mmol/L (136-145); Total Protein,Serum 6.9 g/dl (6.3-8.2)
[2021-04-22 20:32] LABS: Lipase < 10 U/L (23-300)
[2021-04-22 20:35] LABS: C-Reactive Protein 37.9 mg/L (0-4)
[2021-04-22 20:39] LABS: NT Pro Brain Natriuretic Pep. 8290 pg/mL (0-450)
[2021-04-22 20:42] LABS: Troponin I 0.03 ng/ml (0.00-0.034)
[2021-04-22 20:44] LABS: Coronavirus 19, PCR Not Detected (NotDetected); Influenza A, PCR Not Detected (NotDetected); Influenza B, PCR Not Detected (NotDetected)
[2021-04-22 20:49] LABS: Procalcitonin 0.089 ng/mL (0.0-2.0)
[2021-04-22 21:06] LABS: Erythrocyte Sedimentation Rate 21 mm/hr (0-30)
[2021-04-22 21:59] LABS: Eosinophils % 1 % (0-3); Hypochromasia 1+; Lymphocytes % 6 % (10-50); Monocytes % 7 % (2-9); Neutrophils % 86 % (42-76); Platelet Estimate Normal; Total Cells Counted 100
[2021-04-22 22:31] VITALS: BP 132/81; PULSE 115; RESP 18; TEMP 36.6; O2SAT 98
--- NOTE | 2021-04-22 22:45 | PC.NURSE ---
patient up to floor via wheelchair
[2021-04-22 23:17] VITALS: BP 136/74; PULSE 65; RESP 20; TEMP 37; O2SAT 98
[2021-04-22 23:18] VITALS: BMI 24.6
[2021-04-22 23:34] LABS: Microscopic, Urine URINE MICROSCOPIC (MICROSCOPIC)
[2021-04-22 23:35] LABS: Appearance,Urine CLEAR (Clear); Bilirubin,Urine Negative (Negative); Blood, Urine Negative (Negative); Color,Urine YELLOW (Yellow); Glucose,Urine (UA) Negative (Negative); Ketones,Urine Negative (Negative); Leukocyte Esterase,Urine Negative (Negative); Nitrate,Urine Negative (Negative); Protein,Urine Negative (Negative); Urobilinogen,Urine 0.2 EU/dl (0.2)
[2021-04-22 23:46] LABS: Troponin I 0.03 ng/ml (0.00-0.034)
[2021-04-22 23:46] LABS: Squamous Epithelial Cell,Urine Occasional #/hpf (0-5)
[2021-04-23] VITALS (8 sets, daily range): BP systolic 121–142; BP diastolic 63–78; PULSE 70–72; RESP 16–18; TEMP 36.4–37; O2SAT 95–97; BMI 25.1; BMI 25.2
[2021-04-23 02:45] LABS: Troponin I 0.03 ng/ml (0.00-0.034)
--- NOTE | 2021-04-23 04:30 | PC.NURSE ---
patient having difficulty sleeping this shift. Only 1 episode of uncontrolled bowel movement upon arrival to room from ED. Call light within reach, bed at lowest level for safety, no s/s of acute distress noted at this time; will continue to monitor.
[2021-04-23 06:09] LABS: POC Glucose,Bedside 127 (70-110)
[2021-04-23 07:10] LABS: Blood Urea Nitrogen 13 mg/dl (7-17); Carbon Dioxide 32 mmol/L (22.0-30.0); Chloride 99 mmol/L (98-107); Creatinine Clearance Estimated 45 mL/min (50-200); Estimated Glomerular Filt Rate 69 ml/min (>60); GFR (African American) 83 ML/MIN (>60); Glucose 116 mg/dl (74-100); Magnesium 1.1 mg/dl (1.6-2.3); Sodium 137 mmol/L (136-145)
[2021-04-23 07:21] LABS: Basophils % 0.3 % (0.1-2.0); Eosinophils # 0.1 K/mm3 (0.0-0.4); Eosinophils % 1.2 % (0.1-12.0); Hematocrit 35.6 % (37.0-47.0); Lymphocytes % 14.1 % (10-50); Mean Corpuscular HGB Conc 32.5 g/dL (31.8-35.4); Mean Corpuscular Hemoglobin 27.4 pg (27.0-31.2); Mean Corpuscular Volume 84.1 fl (81-99); Mean Platelet Volume 8.1 fl (7.4-10.4); Monocytes # 0.4 K/mm3 (0.1-1.0); Neutrophils # 5.4 K/mm3 (1.8-7.8); Neutrophils % 78.4 % (37.0-80.0); Platelet Count 109 K/mm3 (142-424); Red Blood Count 4.23 M/mm3 (4.20-5.40); Red Cell Distribution Width 17.2 % (11.5-17.5); White Blood Count 6.9 K/mm3 (4.8-10.8)
--- NOTE | 2021-04-23 07:31 | HMH.PHAVTE ---
[facility] Pharmacy VTE Monitoring - Patient Demographics Admission date: 04/22/21 Report Date: 04/23/21 Time: 07:31 Allergies/Adverse Reactions: Patient Allergies No Known Allergies Allergy (Verified 03/28/21 15:24) Height: 1.63 m Weight: 66.706 kg Patient Problems: Current Active Problems CHF (congestive heart failure) (Chronic) Colitis (Acute) Cardiac pacemaker in situ (Chronic) - VTE Risk Labs: VTE Related Lab Results Hgb 13.0 g/dL (12.2-16.2) 04/22/21 20:12 Hct 35.6 % (37.0-47.0) L 04/23/21 05:29 Plt Count 109 K/mm3 (142-424) L D 04/23/21 05:29 BUN 13 mg/dl (7-17) 04/23/21 05:29 Creatinine 0.80 mg/dl (0.52-1.04) 04/23/21 05:29 Estimated Creat Clear 45 mL/min (50-200) 04/23/21 05:29 Was VTE Risk Assessment Performed: Yes VTE Score: 4 VTE Risk Level: Low Risk - Prophylaxis VTE Prophylaxis Ordered?: Yes Types of VTE Prophylaxis: TEDS Knee High Location of Applied Device: Bilateral Lower Extremeties
[2021-04-23 07:36] LABS: Hemoglobin 11.4 g/dL (12.2-16.2)
[2021-04-23 07:37] LABS: Calcium 7.7 mg/dl (8.4-10.2)
--- NOTE | 2021-04-23 08:00 | CA_ITS ---
APPROVED REPORT EXAM: Comprehensive 2D, Doppler, and color-flow Echocardiogram Advanced Developer: Pretty Mcguire CRT Ht: 5 ft 4 in Wt: 147lbs BSA: 1.72 BP: 116/70 mmHg Indications: Pacer, colitis, afib, CM, CAD, GERD, PAD, stent, CHF, SOB 2D Dimensions LVOT 1.67 cm (M/F) 1.5-2.5 M-Mode Dimensions RVDd 3.97 cm (0.9-2.6) LA Diam 3.95 cm (1.9-4.0) LVDd 3.86 cm (3.5-5.7) Ao Diam 3.52 cm (2.0-3.7) LVDs 2.59 cm (3.5-5.7) IVSd 1.36 cm (0.6-1.1) PWd 0.90 cm (0.6-1.1) EF (Teich) 62.10% FS 32.90% EDV (Teich) 64.30 mL ESV (Teich) 24.40 mL Tricuspid Valve TR P. Velocity 261.00 cm/s RAP Estimate 10.00 mmHg RVSP 37.20 mmHg Left Ventricle Left atrium is moderately enlarged, left ventricle is normal size, mild concentric left ventricular hypertrophy, visually estimated ejection fraction 55% with no regional wall motion abnormality. Diastolic parameters are inconclusive. Right Ventricle Right atrium and right ventricle moderately enlarged with normal contractility. Aortic Valve Aortic valve is minimally thickened and fibrosed, there is no aortic stenosis or aortic insufficiency. Mitral Valve Mitral valve leaflets are minimally thickened, there is mild mitral regurgitation. Tricuspid Valve Tricuspid valve grossly normal, there is moderate tricuspid regurgitation, calculated right ventricular systolic pressure 37 mmHg. Pulmonic Valve Pulmonic valve is poorly visualized. Great Vessels Aortic root is normal size. Inferior vena cava is mildly dilated without significant inspiratory collapse. Pericardium No significant pericardial effusion noted. Conclusion 1. Biatrial enlargement, normal left ventricular size, mild concentric left ventricular hypertrophy, visually estimated ejection fraction 55% with no regional wall motion abnormality, diastolic parameters are inconclusive. 2. Moderately enlarged right ventricle with normal contractility. 3. Mild mitral and moderate tricuspid regurgitation, calculated right ventricular systolic pressure 37 mmHg. 4. No significant pericardial effusion noted, inferior vena cava is mildly dilated without significant inspiratory collapse. Electronically signed by : Luis Wylie, 04/24/2021 13:59:09
--- NOTE | 2021-04-23 08:27 | HMH.ACPN2 ---
Internal Medicine - PN: Subj *Date: 04/23/21 *Time: 08:27 Interval history: pt presents with urinary urgency/incontinent episodes that are just there before I can stop them and states her stool is like water and just comes out regardless of trying to make it to the bathroom. slightly nauseated, no other significant complaints. pt with episodes of urinary incont and loose stool w/o blood or fever - no rash - does have abd pain -diffuse nausea, diarrhea, abdominal pain Exam Vital signs and Labs for Last 24 Hours: Temp Pulse Resp BP Pulse Ox 97.8 F 71 18 127/63 96 04/23/21 04:01 04/23/21 04:01 04/23/21 04:01 04/23/21 04:01 04/23/21 04:01 Laboratory Results - last 24 hr 04/22/21 20:12: WBC 12.5 H, RBC 4.68, Hgb 13.0, Hct 39.8, MCV 85.2, MCH 27.8, MCHC 32.6, RDW 17.4, Plt Count 175, MPV 8.2, Neut % (Auto) 85.0 H, Lymph % (Auto) 9.4 L, [place] % (Auto) 3.9, Eos % (Auto) 1.2, Baso % (Auto) 0.4, Neut # (Auto) 10.6 H, Lymph # (Auto) 1.2, [place] # (Auto) 0.5, Eos # (Auto) 0.2, Baso # (Auto) 0.1, Total Counted 100, Neutrophils % (Manual) 86 H, Lymphocytes % (Manual) 6 L, Monocytes % (Manual) 7, Eosinophils % (Manual) 1, Platelet Estimate Normal, Hypochromasia 1+ 04/22/21 20:12: Sodium 137, Potassium 3.5, Chloride 94 L, Carbon Dioxide 30, Anion Gap 16.5 H, BUN 15, Creatinine 0.90, Estimated Creat Clear 53, Estimated GFR 60, Est GFR ( Amer) 72, Glucose 172 H, Calcium 8.7, Total Bilirubin 1.4 H, AST 28, ALT 18, Alkaline Phosphatase 112, Troponin I 0.03, Total Protein 6.9, Albumin 3.9, Globulin 3.0, Albumin/Globulin Ratio 1.3, Amylase 33, Lipase < 10 L 04/22/21 20:12: C-Reactive Protein 37.9 H, NT-Pro-B Natriuret Pep 8290 H 04/22/21 20:12: ESR 21 04/22/21 20:12: Procalcitonin 0.089 04/22/21 20:21: Digoxin 2.10 H* 04/22/21 20:41: SARS-CoV-2 (PCR) Not detected, Influenza A Untype (PCR) Not detected, Influenza Type B (PCR) Not detected 04/22/21 23:15: Troponin I 0.03 04/22/21 23:25: Urine Color Yellow, Urine Appearance Clear, Urine pH 8.0, Ur Specific [place] 1.010, Urine Protein Negative, Urine Glucose (UA) Negative, Urine Ketones Negative, Urine Blood Negative, Urine Nitrate Negative, Urine Bilirubin Negative, Urine Urobilinogen 0.2, Ur Leukocyte Esterase Negative, Urine RBC None, Urine WBC None, Ur Squamous Epith Cells Occasional, Urine Bacteria None 04/23/21 02:15: Troponin I 0.03 04/23/21 05:29: WBC 6.9 D, RBC 4.23, Hgb 11.4 L D, Hct 35.6 L, MCV 84.1, MCH 27.4, MCHC 32.5, RDW 17.2, Plt Count 109 L D, MPV 8.1, Neut % (Auto) 78.4, Lymph % (Auto) 14.1, [place] % (Auto) 6.0, Eos % (Auto) 1.2, Baso % (Auto) 0.3, Neut # (Auto) 5.4, Lymph # (Auto) 1.0, [place] # (Auto) 0.4, Eos # (Auto) 0.1, Baso # (Auto) 0.0 04/23/21 05:29: Sodium 137, Potassium 3.0 L, Chloride 99, Carbon Dioxide 32 H, Anion Gap 9.0, BUN 13, Creatinine 0.80, Estimated Creat Clear 45, Estimated GFR 69, Est GFR ( Amer) 83, Glucose 116 H D, Calcium 7.7 L D, Magnesium 1.1 L 04/23/21 05:50: POC Glucose 127 H I & O for Last 24 hours: Intake & Output 04/20/21 04/21/21 04/22/21 04/23/21 23:59 23:59 23:59 23:59 Intake Total 600 / 600 Output Total 550 / 550 Balance 50 / 50 Weight 144 lb 8 oz 147 lb 1 oz - Constitutional no acute distress - *Routine HEENT Exam Head: Present: normocephalic Eye: Present: EOMI ENT: Present: mucous membranes moist - *Routine Neck Exam Present: trachea midline. Absent: tracheal deviation - *Routine Respiratory Exam Present: CTA bilaterally. Absent: accessory muscle use - *Routine Cardiovascular Exam Present: RRR - *Routine Abdominal Exam Present: soft, normoactive bowel sounds, tenderness. Absent: firm - *Routine Extremities Exam Present: full ROM, pulses intact. Absent: cyanosis, clubbing, edema, calf tenderness - *Routine Skin Exam Present: intact, dry, warm. Absent: cyanosis, erythema - *Routine Neurological Exam Present: alert, oriented X3. Absent: motor deficit, pronator drift - [place]
--- NOTE | 2021-04-23 08:36 | HMH.HP ---
*Admission Date: 04/22/21 *Chief complaint: Abdominal Pain *History of present illness: 85-year-old female patient presented to the [facility] ED with complaints of liquid watery-like stools, nausea and diffuse abdominal pain. She reports for several days she has had an increased number of stools Lab work in the emergency department revealed white blood cell count 12.5, hemoglobin and hematocrit stable Electrolytes are within normal CRP 37.9, ESR 21 BNP 8290 04/22/21 CXR: IMPRESSION: Cardiomegaly with effusions and streaky basilar airspace opacities and mild interstitial coarsening. Follow-up to radiographic clearance is recommended. Electronically signed by Elvin Lizarraga MD 04/22/21 Abd/Pelvis CT: FINDINGS: Pleural spaces: Moderate right and trace left pleural effusions with associated streaky basilar airspace opacities. Heart: Mild cardiomegaly. 8 mm pericardial effusion best appreciated on coronal projection. Partially visualized cardiac pacing wires. Mediastinal space: Small hiatal hernia. Liver: Normal. No mass. Gallbladder and bile ducts: Gallbladder is not visualized. Pancreas: Fatty atrophy of the pancreas. Spleen: No splenomegaly. Adrenal glands: No mass. Kidneys and ureters: Renal cysts measuring up to 3.1 cm. No hydronephrosis. Stomach and bowel: Diffuse wall thickening of the colon with adjacent inflammatory stranding. Diverticulosis coli. Appendix: No evidence of appendicitis. Intraperitoneal space: No free air. Trace ascites. Vasculature: Calcified atherosclerosis. No aneurysm. Lymph nodes: No enlarged lymph nodes. Urinary bladder: No acute abnormality. Reproductive: 17 mm hyperdense structure within the region of the left adnexa. Bones/joints: Degenerative changes of the spine. No fracture. Soft tissues: No soft tissue swelling. IMPRESSION: 1. Diffuse wall thickening of the colon with adjacent inflammatory stranding compatible with colitis. 2. 17 mm hyperdense structure within the region of the left adnexa which is indeterminate but may be residual ovarian tissue. Correlation. 3. Diverticulosis coli. 4. Moderate right and trace left pleural effusions with associated streaky basilar airspace opacities which may be on the basis atelectasis or pneumonia. 5. Mild cardiomegaly with small pericardial effusion. 6. Small hiatal hernia. [facility] History I have reviewed the patient's past medical history: Yes Medical History: Reports:: Atrial Fibrillation, Cardiomyopathy, Congestive Heart Failure, Coronary Artery Disease, Diabetes Mellitus Type 2, Gastroesophageal Reflux Disease(GERD), Hyperlipidemia, Hypertension, Internal Pacemaker, Peripheral Artery Disease Denies:: Cancer, Diabetes Mellitus Type 1, MRSA, Seizures *Have you ever received a pneumonia vaccine?: No *Have you received a flu vaccine this season?: Yes Other Medical History: Reports: Anemia, Arthritis, Cataracts (Eddie. cataract sx.), Other. Denies: Blood Transfusion Reaction Laterality Cases: Bilateral: Tonsillectomy Other Surgeries: Yes: Appendectomy, Cardiac Catheterization (01/28/18 1 stent), Cholecystectomy, Colonoscopy, Hysterectomy-Total, Pacemaker, Other Amputation: No Fractures: No - *Social History Last grade of school completed: 7th or 8th Smoking Status: Never smoker Alcohol Intake: never Alcohol Intake Frequency:: other *Occupational Status:: retired Housing: house Household Members: children *Travel in the last 8 weeks: None Family Hx:: Cancer Review of Systems - Review of Systems Review of systems:: pertinent systems reviewed and negative unless documented below - Constitutional Reports fatigue, Reports weakness, Denies weight gain - Eyes Denies blurry vision, Denies double vision - ENT Denies abnormal hearing, Denies facial pain - *Cardiovascular Denies chest pain, Denies shortness of breath - *Respiratory Denies chest congestion,
--- NOTE | 2021-04-23 10:03 | HMH.CNCARD ---
History of Present Illness Consult date: 04/23/21 Requesting physician: Marcel Hylton Consult reason: congestive heart failure Chief complaint: diarrhea History of present illness: This is an 85-year-old white female who presented to the emergency department with complaints of diarrhea, nausea and diffuse abdominal pain. The patient states that her symptoms started about 2 or 3 days ago. She states that she had an increased number of stools and then they turned to a liquid watery stool. This was associated with nausea and severe, diffuse abdominal pain. She states that she is also had some urinary urgency and incontinence as well. She states that she just has the urge to urinate before she can even stop it. She states that her biggest issue has been the diarrhea. She states that her diarrhea bowel movements would just not stop and that is why she decided to come into the emergency department. She denies any chest pain or pressure. She states that she does have shortness of breath especially with exertion. This is probably a little bit worse than normal. It is associated with bilateral lower extremity edema. She denies any fever, chills, vomiting. Her shortness of breath is associated with orthopnea at times. [facility] History I have reviewed the patient's past medical history: Yes Medical History: Reports:: Atrial Fibrillation, Cardiomyopathy, Congestive Heart Failure, Coronary Artery Disease, Diabetes Mellitus Type 2, Gastroesophageal Reflux Disease(GERD), Hyperlipidemia, Hypertension, Internal Pacemaker, Peripheral Artery Disease Denies:: Cancer, Diabetes Mellitus Type 1, MRSA, Seizures *Have you ever received a pneumonia vaccine?: No *Have you received a flu vaccine this season?: Yes Other Medical History: Reports: Anemia, Arthritis, Cataracts (Eddie. cataract sx.), Other. Denies: Blood Transfusion Reaction Laterality Cases: Bilateral: Tonsillectomy Other Surgeries: Yes: Appendectomy, Cardiac Catheterization (01/28/18 1 stent), Cholecystectomy, Colonoscopy, Hysterectomy-Total, Pacemaker, Other Amputation: No Fractures: No - *Social History Last grade of school completed: 7th or 8th Smoking Status: Never smoker Alcohol Intake: never Alcohol Intake Frequency:: other *Occupational Status:: retired Housing: house Household Members: children *Travel in the last 8 weeks: None Family Hx:: Cancer Meds Home Medications Medication Instructions Recorded Confirmed Type aspirin 81 mg tablet,delayed 81 mg PO DAILY 10/05/17 04/22/21 History release atorvastatin 10 mg tablet 10 mg PO HS 10/05/17 04/22/21 History sertraline 100 mg tablet 50 mg PO DAILY 10/05/17 04/22/21 History Cetirizine HCl 5 mg PO DAILY 11/18/20 04/22/21 History Ferrous Sulfate [Ferrous Sulfate 325 mg PO DAILY 11/18/20 04/22/21 History 325mg Tablet] Isosorbide Mononitrate [Imdur 30mg 30 mg PO DAILY 11/18/20 04/22/21 History ER tablet] Levothyroxine Sodium 50 mcg PO DAILY 11/18/20 04/22/21 History [Levothyroxine 50mcg (0.05mg) Tab] Mirabegron [Myrbetriq] 25 mg PO DAILY 11/18/20 04/22/21 History Mirtazapine 7.5 mg PO HS 11/18/20 04/22/21 History insulin glargine 100 unit/mL (3 15 unit SQ HS ml 12/30/20 04/22/21 History mL) subcutaneous pen Digoxin [Digoxin 0.125mg Tablet] 125 mcg PO DAILY 02/24/21 04/22/21 History Furosemide [Furosemide 40MG tAB*] 40 mg PO DAILY 02/24/21 04/22/21 History Rivaroxaban [Xarelto 15mg tablet] 15 mg PO HS 02/24/21 04/22/21 History Verapamil HCl [Verapamil Sr] 180 mg PO DAILY 02/24/21 04/22/21 History bisoproloL fumarate [Bisoprolol 5 mg PO DAILY 02/24/21 04/22/21 History Fumarate] ondansetron HCL [Zofran 4mg Tab*] 4 mg PO TIDP PRN #20 tab 02/25/21 03/28/21 Rx metformin 500 mg tablet 500 mg PO DAILY 30 Days #30 tab 03/24/21 04/22/21 Rx ondansetron 4 mg disintegrating 4 mg PO Q8H #30 tab 04/01/21 04/22/21 Rx tablet Allergies Allergy/AdvReac Type Severity Reaction Status Date / Time No Known Allergies Allergy Verifi
--- NOTE | 2021-04-23 10:46 | HMH.PHAINT ---
MEDICATION RECONCILIATION COMPLETED ON PATIENT USING EXTERNAL FILL HISTORY FROM PHARMACY AND LIST FORM PCP OFFICE. -PINO RIBERAD
[2021-04-23 11:19] LABS: POC Glucose,Bedside 126 (70-110)
--- NOTE | 2021-04-23 12:49 | PC.NURSE ---
PT IS SITTING UP IN THE CHAIR. PT IS ABLE TO AMBULATE TO THE BATHROOM WITH 1 ASSIST. TOLERATED TAKING A SHOWER THIS SHIFT WITH MINIMAL ASSISTANCE. PT HAS TOLERATED CLEAR LIQUIDS. DIET ADVANCED TO FULL LIQUID. LUNG SOUNDS CLEAR. ABDOMEN SOFT/TENDERNESS NOTED IN THE LLQ. SKIN C/D/I. PURWICK IN PLACE. VSS. WILL CONTINUE TO MONITOR.
[2021-04-23 13:22] LABS: Adenovirus F 40/41, stool Not Detected (NotDetected); Astrovirus Not Detected (NotDetected); Campylobacter Not Detected (NotDetected); Clostridium Difficile A/B, PCR Not Detected (NotDetected); Cryptosporidium Not Detected (NotDetected); Cyclospora Cayetanesis Not Detected (NotDetected); Entamoeba histolytica Not Detected (NotDetected); Enteroaggregative E coli Not Detected (NotDetected); Enteropathogenic E coli Not Detected (NotDetected); Giardia lamblia Not Detected (NotDetected); Norovirus Not Detected (NotDetected); Plesimonas Shigalloides, PCR Not Detected (NotDetected); Rotavirus A Not Detected (NotDetected); Salmonella, PCR Not Detected (NotDetected); Sapovirus Not Detected (NotDetected); Shigella Enterovasive E coli Not Detected (NotDetected); Vibrio Cholerae Not Detected (NotDetected); Vibrio, PCR Not Detected (NotDetected); Yersinia Entercolitica, PCR Not Detected (NotDetected)
--- NOTE | 2021-04-23 13:44 | DIET.NUTRFU ---
Addendum entered by Leonor Grullon 04/28/21 14:46: PO intakes 50%, no edema noted, BG slightly increased over past couple days- avg. 200. Diarrhea continues, slightly worsened, K low. Glucerna removed from diet order as it may worsen diarrhea, bland low fiber diet encouraged. She continues on cardiac diet. Addendum entered by Leonor Grullon 04/25/21 14:22: Pt doing okay nutritionally, PO intakes 50%. BG moderate- avg. 160, weight stable, K low. She states she is still just scared to eat too much at once, states she did this this morning and got sick after breakfast. She likes glucerna, increased to BID and snacks between meals (small frequent meals) encouraged. She continues with diarrhea with blood. Diet edu/counseling for N/V/D provided, bland low fat/fiber diet encouraged. She continues on cardiac diet with sugar free beverages/desserts and soft modifications. Original Note: Pt states she is feeling moderately better than admission. She tolerated clears well and advanced to fulls for dinner. Glucerna on diet order daily, pt may also have Breeze by request/RN offer if BG<200. She has not had diarrhea today, was having severe diarrhea prior to admission. BUN and Electrolytes are WNL. She is receiving cautious fluids and being cautiously diuresed. She does have 2-3+ edema. Pt with moderately controlled DM with last A1C 7.6. Will continue full liquid diet without sugar/cho restrictions at this time dt poor intakes, diarrhea, and BG moderate- avg. 125. Will advance to ADA/low sodium diet as tolerated. Pt has been provided diet edu/counseling for colitis, diverticulosis, hiatal hernia, DM, and CHF. Will continue to monitor and provide MNT t/o stay.
[2021-04-23 15:36] LABS: Enterotoxigenic E coli Detected (NotDetected); Shiga-like toxin E coli Detected (NotDetected)
[2021-04-23 16:46] LABS: POC Glucose,Bedside 163 (70-110)
[2021-04-23 21:15] LABS: POC Glucose,Bedside 133 (70-110)
[2021-04-24] VITALS (9 sets, daily range): BP systolic 111–128; BP diastolic 54–70; PULSE 69–94; RESP 16–18; TEMP 36.4–36.8; O2SAT 95–98; BMI 24.9
--- NOTE | 2021-04-24 05:10 | PC.NURSE ---
Patient had an uneventful night. Call light within reach, bed at lowest level for safety, no s/s of acute distress noted at this time; will continue to monitor.
[2021-04-24 06:37] LABS: Basophils # 0.1 K/mm3 (0-0.2); Basophils % 0.9 % (0.1-2.0); Eosinophils # 0.1 K/mm3 (0.0-0.4); Eosinophils % 1.1 % (0.1-12.0); Hematocrit 36.7 % (37.0-47.0); Lymphocytes # 0.8 K/mm3 (0.7-4.5); Lymphocytes % 8.5 % (10-50); Mean Corpuscular HGB Conc 32.6 g/dL (31.8-35.4); Mean Corpuscular Hemoglobin 27.9 pg (27.0-31.2); Mean Corpuscular Volume 85.6 fl (81-99); Mean Platelet Volume 8.3 fl (7.4-10.4); Monocytes # 0.7 K/mm3 (0.1-1.0); Monocytes % 7.4 % (1.7-9.3); Neutrophils # 7.4 K/mm3 (1.8-7.8); Neutrophils % 82.1 % (37.0-80.0); Platelet Count 120 K/mm3 (142-424); Red Blood Count 4.29 M/mm3 (4.20-5.40); Red Cell Distribution Width 17.5 % (11.5-17.5)
[2021-04-24 06:46] LABS: POC Glucose,Bedside 160 (70-110)
[2021-04-24 06:52] LABS: Chol/HDL Ratio 3.4 (1-3.5); Cholesterol 67 mg/dl (140-200); HDL Cholesterol 20 mg/dl (40-60); Triglycerides 76 mg/dl (30-150); VLDL Cholesterol 15 mg/dL (0-40)
[2021-04-24 06:55] LABS: Anion Gap 12.1 mEq/L (5-15); Blood Urea Nitrogen 13 mg/dl (7-17); Calcium 7.3 mg/dl (8.4-10.2); Carbon Dioxide 27 mmol/L (22.0-30.0); Chloride 101 mmol/L (98-107); Creatinine Clearance Estimated 45 mL/min (50-200); Estimated Glomerular Filt Rate 69 ml/min (>60); GFR (African American) 83 ML/MIN (>60); Glucose 140 mg/dl (74-100); Potassium 3.1 mmoL/L (3.5-5.1); Sodium 137 mmol/L (136-145)
[2021-04-24 07:03] LABS: Direct LDL Cholesterol 30.63 mg/dL (100-129)
--- NOTE | 2021-04-24 09:23 | HMH.PNCARD ---
Subjective Date: 04/24/21 Time: 09:20 Principal diagnosis: chf Interval history: This is an 85-year-old white female who presented to the emergency department with complaints of diarrhea, nausea and diffuse abdominal pain. The patient was found to have colitis and continues to have diarrhea but she states that this has improved somewhat. She was also complaining of shortness of breath and lower extremity edema which she states has been going on for quite some time. The patient was in an acute exacerbation of congestive heart failure. Her preliminary echocardiogram shows she has a normal ejection fraction. This morning she states that her edema has resolved since getting Lasix yesterday. She states her shortness of breath has essentially resolved as well and she is feeling much better. She denies any fever, chills, nausea, vomiting, PND or orthopnea. She denies any chest pain or pressure. Exam Vital signs and Labs for Last 24 Hours: Temp Pulse Resp BP Pulse Ox 97.6 F 70 17 112/54 L 97 04/24/21 07:44 04/24/21 07:44 04/24/21 07:44 04/24/21 07:44 04/24/21 07:44 Laboratory Results - last 24 hr 04/23/21 10:49: POC Glucose 126 H 04/23/21 13:04: Stl Aeromonas (PCR) Not detected, Stl C. cayetanensis PCR Not detected, Stool Rotavirus (PCR) Not detected, Stl Adenov F 40/41 PCR Not detected, Stool Astrovirus (PCR) Not detected, Stool Campylobacter PCR Not detected, Stl C.difficile Tox PCR Not detected, Stool Cryptosporidium PCR Not detected, Stl E.coli Shiga Tox PCR Detected A, Stool E coli O157 PCR Not detected, Stl Enterotoxigenic E PCR Detected A, Stool EPEC (PCR) Not detected, Stool EAEC (PCR) Not detected, Stl E. histolytica PCR Not detected, Stool Giardia Lamblia PCR Not detected, Stool Salmonella PCR Not detected, Stool Sapovirus (PCR) Not detected, Stl P. shigelloides PCR Not detected, Stl Shigella/EIEC PCR Not detected, St Y.enterocolitica PCR Not detected, Stool Vibrio (PCR) Not detected, Stl Vibrio cholerae PCR Not detected, Stl Norovirus GI/GII PCR Not detected 04/23/21 16:27: POC Glucose 163 H 04/23/21 20:30: POC Glucose 133 H 04/24/21 05:49: WBC 9.0 D, RBC 4.29, Hgb 12.0 L, Hct 36.7 L, MCV 85.6, MCH 27.9, MCHC 32.6, RDW 17.5, Plt Count 120 L, MPV 8.3, Neut % (Auto) 82.1 H, Lymph % (Auto) 8.5 L, [place] % (Auto) 7.4, Eos % (Auto) 1.1, Baso % (Auto) 0.9, Neut # (Auto) 7.4, Lymph # (Auto) 0.8, [place] # (Auto) 0.7, Eos # (Auto) 0.1, Baso # (Auto) 0.1 04/24/21 05:49: Sodium 137, Potassium 3.1 L, Chloride 101, Carbon Dioxide 27, Anion Gap 12.1, BUN 13, Creatinine 0.80, Estimated Creat Clear 45, Estimated GFR 69, Est GFR ( Amer) 83, Glucose 140 H, Calcium 7.3 L 04/24/21 05:49: Triglycerides 76, Cholesterol 67 L, LDL Cholesterol Direct 30.63 L, VLDL Cholesterol 15, HDL Cholesterol 20 L, Cholesterol/HDL Ratio 3.4 04/24/21 06:30: POC Glucose 160 H I & O for Last 24 hours: Intake & Output 04/21/21 04/22/21 04/23/21 04/24/21 23:59 23:59 23:59 23:59 Intake Total 1080 / 1080 360 / 360 Output Total 1550 / 1550 400 / 400 Balance -470 / -470 -40 / -40 Weight 144 lb 8 oz 147 lb 11.355 oz 146 lb Narrative: Telemetry strip is V pacing with a rate of 70. - Constitutional no acute distress, average body habitus - *Routine HEENT Exam Head: Present: normocephalic, atraumatic Eye: Present: EOMI, PERRL ENT: Present: mucous membranes moist - *Routine Neck Exam Present: supple, full ROM, normal carotid upstroke. Absent: JVD, carotid bruit, lymphadenopathy - *Routine Respiratory Exam Present: CTA bilaterally - *Routine Cardiovascular Exam Present: RRR, Normal S1, Normal S2, murmur - *Routine Abdominal Exam Present: soft, normoactive bowel sounds, tenderness. Absent: distended, rebound - *Routine Extremities Exam Present: full ROM, pulses intact, normal capillary refill. Absent: cyanosis, clubbing, edema - *Routine Skin Exam Present: intact, warm. Absent: erythema, rash - *Routine Neurological Exam Present: a
[2021-04-24 11:33] LABS: POC Glucose,Bedside 159 (70-110)
--- NOTE | 2021-04-24 13:29 | HMH.ACPN2 ---
Internal Medicine - PN: Subj *Date: 04/24/21 *Time: 08:00 Interval history: pt sitting up in chair stating she feels hungry and wants to eat. Pt states she is feeling better Exam Vital signs and Labs for Last 24 Hours: Temp Pulse Resp BP Pulse Ox 97.5 F L 94 H 18 111/63 97 04/24/21 11:38 04/24/21 11:38 04/24/21 11:38 04/24/21 11:38 04/24/21 11:38 Laboratory Results - last 24 hr 04/23/21 13:04: Stl Aeromonas (PCR) Not detected, Stl C. cayetanensis PCR Not detected, Stool Rotavirus (PCR) Not detected, Stl Adenov F 40/41 PCR Not detected, Stool Astrovirus (PCR) Not detected, Stool Campylobacter PCR Not detected, Stl C.difficile Tox PCR Not detected, Stool Cryptosporidium PCR Not detected, Stl E.coli Shiga Tox PCR Detected A, Stool E coli O157 PCR Not detected, Stl Enterotoxigenic E PCR Detected A, Stool EPEC (PCR) Not detected, Stool EAEC (PCR) Not detected, Stl E. histolytica PCR Not detected, Stool Giardia Lamblia PCR Not detected, Stool Salmonella PCR Not detected, Stool Sapovirus (PCR) Not detected, Stl P. shigelloides PCR Not detected, Stl Shigella/EIEC PCR Not detected, St Y.enterocolitica PCR Not detected, Stool Vibrio (PCR) Not detected, Stl Vibrio cholerae PCR Not detected, Stl Norovirus GI/GII PCR Not detected 04/23/21 16:27: POC Glucose 163 H 04/23/21 20:30: POC Glucose 133 H 04/24/21 05:49: WBC 9.0 D, RBC 4.29, Hgb 12.0 L, Hct 36.7 L, MCV 85.6, MCH 27.9, MCHC 32.6, RDW 17.5, Plt Count 120 L, MPV 8.3, Neut % (Auto) 82.1 H, Lymph % (Auto) 8.5 L, [place] % (Auto) 7.4, Eos % (Auto) 1.1, Baso % (Auto) 0.9, Neut # (Auto) 7.4, Lymph # (Auto) 0.8, [place] # (Auto) 0.7, Eos # (Auto) 0.1, Baso # (Auto) 0.1 04/24/21 05:49: Sodium 137, Potassium 3.1 L, Chloride 101, Carbon Dioxide 27, Anion Gap 12.1, BUN 13, Creatinine 0.80, Estimated Creat Clear 45, Estimated GFR 69, Est GFR ( Amer) 83, Glucose 140 H, Calcium 7.3 L 04/24/21 05:49: Triglycerides 76, Cholesterol 67 L, LDL Cholesterol Direct 30.63 L, VLDL Cholesterol 15, HDL Cholesterol 20 L, Cholesterol/HDL Ratio 3.4 04/24/21 06:30: POC Glucose 160 H 04/24/21 11:26: POC Glucose 159 H I & O for Last 24 hours: Intake & Output 04/22/21 04/23/21 04/24/21 04/25/21 11:59 11:59 11:59 11:59 Intake Total 600 / 600 840 / 840 Output Total 550 / 550 1400 / 1400 Balance 50 / 50 -560 / -560 Weight 147 lb 1 oz 146 lb - Constitutional no acute distress - *Routine HEENT Exam Head: Present: normocephalic Eye: Present: PERRL ENT: Present: mucous membranes moist - *Routine Neck Exam Present: supple. Absent: lymphadenopathy - *Routine Respiratory Exam Present: CTA bilaterally - *Routine Cardiovascular Exam Present: RRR - *Routine Abdominal Exam Present: soft, normoactive bowel sounds, tenderness - *Routine Extremities Exam Absent: cyanosis, clubbing, edema - *Routine Skin Exam Present: warm. Absent: rash - *Routine Neurological Exam Present: alert, oriented X3 - Routine Psychiatric Exam Present: normal affect Assessment and Plan (1) CHF (congestive heart failure) Status: Chronic Qualifiers: Heart failure type: diastolic Heart failure chronicity: acute on chronic Qualified Code(s): I50.33 - Acute on chronic diastolic (congestive) heart failure Category: Medical Code(s): I50.9 - Heart failure, unspecified (2) Digitalis toxicity Status: Acute Category: Medical Code(s): T46.0X1A - Poisoning by cardiac-stimulant glycosides and drugs of similar action, accidental (unintentional), initial encounter (3) Edema Status: Acute Category: Medical Code(s): R60.9 - Edema, unspecified (4) SOB (shortness of breath) Status: Acute Category: Medical Code(s): R06.02 - Shortness of breath (5) Colitis Status: Acute Category: Medical Code(s): K52.9 - Noninfective gastroenteritis and colitis, unspecified (6) HLD (hyperlipidemia) Status: Chronic Qualifiers: Category: Medical Code(s): E78.5 - Hyperlipidemia,
--- NOTE | 2021-04-24 17:29 | PC.NURSE ---
PT IS RESTING IN BED. NO COMPLAINTS OF DISCOMFORT. PT HAS BEEN AMBULATING TO THE BATHROOM WITH 1 ASSIST. TOLERATED SHOWER THIS SHIFT WITH MINIMAL ASSISTANCE. LUNG SOUNDS CLEAR. ABDOMEN SOFT WITH MINIMAL TENDERNESS. ACTIVE BOWEL SOUNDS. PT CONTINUES TO HAVE LOOSE STOOLS. VSS. WILL CONTINUE TO MONITOR.
[2021-04-24 18:22] LABS: POC Glucose,Bedside 192 (70-110)
[2021-04-24 20:55] LABS: POC Glucose,Bedside 157 (70-110)
[2021-04-25] VITALS (8 sets, daily range): BP systolic 117–131; BP diastolic 53–69; PULSE 70–82; RESP 16–18; TEMP 36.5–36.8; O2SAT 92–98; BMI 24.2
--- NOTE | 2021-04-25 03:31 | PC.NURSE ---
Patient is A&Ox4. NO complaints of pain but is restless. Multiple loose bowel movements this shift. Small amount of bright red blood noted, but pt states she has a hx of hemorrhoids and is irritated from multiple loose stools. VSS. Blood sugars elevated, sliding scale insulin administered. No further concerns voiced to RN.
[2021-04-25 05:43] LABS: Basophils % 0.3 % (0.1-2.0); Eosinophils # 0.1 K/mm3 (0.0-0.4); Eosinophils % 0.8 % (0.1-12.0); Hematocrit 38.9 % (37.0-47.0); Hemoglobin 12.6 g/dL (12.2-16.2); Lymphocytes # 1.2 K/mm3 (0.7-4.5); Lymphocytes % 10.3 % (10-50); Mean Corpuscular HGB Conc 32.4 g/dL (31.8-35.4); Mean Corpuscular Hemoglobin 27.7 pg (27.0-31.2); Mean Corpuscular Volume 85.6 fl (81-99); Mean Platelet Volume 8.1 fl (7.4-10.4); Monocytes # 0.6 K/mm3 (0.1-1.0); Monocytes % 5.4 % (1.7-9.3); Neutrophils # 9.3 K/mm3 (1.8-7.8); Neutrophils % 83.3 % (37.0-80.0); Platelet Count 137 K/mm3 (142-424); Red Blood Count 4.55 M/mm3 (4.20-5.40); Red Cell Distribution Width 17.4 % (11.5-17.5); White Blood Count 11.1 K/mm3 (4.8-10.8)
[2021-04-25 05:46] LABS: Chloride 102 mmol/L (98-107); Sodium 136 mmol/L (136-145)
[2021-04-25 05:46] LABS: POC Glucose,Bedside 194 (70-110)
[2021-04-25 05:49] LABS: Anion Gap 11.5 mEq/L (5-15); Blood Urea Nitrogen 14 mg/dl (7-17); Carbon Dioxide 25 mmol/L (22.0-30.0); Creatinine Clearance Estimated 45 mL/min (50-200); Estimated Glomerular Filt Rate 60 ml/min (>60); GFR (African American) 72 ML/MIN (>60)
[2021-04-25 05:50] LABS: Calcium 7.6 mg/dl (8.4-10.2); Glucose 168 mg/dl (74-100)
[2021-04-25 05:53] LABS: Potassium 2.5 mmoL/L (3.5-5.1)
[2021-04-25 11:38] LABS: POC Glucose,Bedside 140 (70-110)
--- NOTE | 2021-04-25 13:55 | HMH.ACPN2 ---
Internal Medicine - PN: Subj *Date: 04/25/21 *Time: 09:15 Interval history: pt laying in bed states she is feeling better, last pm had 5 diarrhea stools was able to eat and drink and tolerate well but not to long after eating she had to go to bathroom. low K+,increase wbc Exam Vital signs and Labs for Last 24 Hours: Temp Pulse Resp BP Pulse Ox 97.9 F 71 16 129/69 98 04/25/21 12:00 04/25/21 12:00 04/25/21 12:00 04/25/21 12:00 04/25/21 12:00 Laboratory Results - last 24 hr 04/24/21 16:14: POC Glucose 192 H 04/24/21 20:41: POC Glucose 157 H 04/25/21 05:20: WBC 11.1 H, RBC 4.55, Hgb 12.6, Hct 38.9, MCV 85.6, MCH 27.7, MCHC 32.4, RDW 17.4, Plt Count 137 L, MPV 8.1, Neut % (Auto) 83.3 H, Lymph % (Auto) 10.3, [place] % (Auto) 5.4, Eos % (Auto) 0.8, Baso % (Auto) 0.3, Neut # (Auto) 9.3 H, Lymph # (Auto) 1.2, [place] # (Auto) 0.6, Eos # (Auto) 0.1, Baso # (Auto) 0.0 04/25/21 05:20: Sodium 136, Potassium 2.5 L*, Chloride 102, Carbon Dioxide 25, Anion Gap 11.5, BUN 14, Creatinine 0.90, Estimated Creat Clear 45, Estimated GFR 60, Est GFR ( Amer) 72, Glucose 168 H, Calcium 7.6 L 04/25/21 05:25: POC Glucose 194 H 04/25/21 11:28: POC Glucose 140 H I & O for Last 24 hours: Intake & Output 04/23/21 04/24/21 04/25/21 04/26/21 11:59 11:59 11:59 11:59 Intake Total 600 / 600 840 / 840 720 / 720 120 / 120 Output Total 550 / 550 1400 / 1400 654 / 654 Balance 50 / 50 -560 / -560 66 / 66 120 / 120 Weight 147 lb 1 oz 146 lb 142 lb - Constitutional no acute distress - *Routine HEENT Exam Head: Present: normocephalic Eye: Present: PERRL ENT: Present: mucous membranes moist - *Routine Neck Exam Present: supple. Absent: lymphadenopathy - *Routine Respiratory Exam Present: CTA bilaterally - *Routine Cardiovascular Exam Present: RRR - *Routine Abdominal Exam Present: soft, normoactive bowel sounds. Absent: tenderness - *Routine Extremities Exam Present: normal capillary refill. Absent: cyanosis, clubbing, edema - *Routine Skin Exam Present: warm. Absent: rash - *Routine Neurological Exam Present: alert, oriented X3 - Routine Psychiatric Exam Present: normal affect Assessment and Plan (1) CHF (congestive heart failure) Status: Chronic Qualifiers: Heart failure type: diastolic Heart failure chronicity: acute on chronic Qualified Code(s): I50.33 - Acute on chronic diastolic (congestive) heart failure Category: Medical Code(s): I50.9 - Heart failure, unspecified (2) Digitalis toxicity Status: Acute Category: Medical Code(s): T46.0X1A - Poisoning by cardiac-stimulant glycosides and drugs of similar action, accidental (unintentional), initial encounter (3) Edema Status: Acute Category: Medical Code(s): R60.9 - Edema, unspecified (4) SOB (shortness of breath) Status: Acute Category: Medical Code(s): R06.02 - Shortness of breath (5) Colitis Status: Acute Category: Medical Code(s): K52.9 - Noninfective gastroenteritis and colitis, unspecified (6) HLD (hyperlipidemia) Status: Chronic Qualifiers: Category: Medical Code(s): E78.5 - Hyperlipidemia, unspecified (7) Cardiac pacemaker in situ Status: Chronic Category: Medical Code(s): Z95.0 - Presence of cardiac pacemaker (8) HTN (hypertension) Status: Chronic Category: Medical Code(s): I10 - Essential (primary) hypertension (9) Pulmonary HTN Status: Chronic Category: Medical Code(s): I27.20 - Pulmonary hypertension, unspecified (10) Coronary artery disease Status: Chronic Qualifiers: Category: Medical Code(s): I25.10 - Atherosclerotic heart disease of [place] coronary artery without angina pectoris (11) Leukocytosis Status: Acute Category: Medical Code(s): D72.829 - Elevated white blood cell count, unspecified (12) Diabetes Status: Acute Qualifiers: Category: Medical Code(s): E11.9 - Type 2 diabetes mellitus without complications
[2021-04-25 17:01] LABS: POC Glucose,Bedside 160 (70-110)
--- NOTE | 2021-04-25 17:14 | PC.NURSE ---
Pt has been pleasant and cooperative this shift. A&O X4. No complaints of pain. Pt has complained of nausea X1 today and received Zofran per MAR with favorable results. No vomiting. Appetite is fair and pt eats about half of every meal. Pt is on room air with sats. >90%. Lungs CTA. No edema noted. Skin is C/D/I. Pt ambulates with stand-by assistance to/from the BSC and throughout the room. Abdomen is soft and non-tender. Pt voids clear, yellow urine without issue. Pt has had 6 moderate, loose, brown stools this shift with blood noted. FSBS results have been 140 and 160. 20 G peripheral IV in the RT AC is patent and SL. VSS. Call light within reach. Will continue to monitor.
[2021-04-25 22:27] LABS: POC Glucose,Bedside 204 (70-110)
[2021-04-26] VITALS (7 sets, daily range): BP systolic 99–116; BP diastolic 53–66; PULSE 70–73; RESP 14–17; TEMP 36.4–36.8; O2SAT 93–97; BMI 24.0
[2021-04-26 06:01] LABS: POC Glucose,Bedside 163 (70-110)
--- NOTE | 2021-04-26 06:22 | PC.NURSE ---
Patient had an uneventful night this shift. No s/s of acute distress noted at this time, call light within reach, bed at lowest level for safety; will continue to monitor.
[2021-04-26 06:48] LABS: Basophils % 0.3 % (0.1-2.0); Eosinophils # 0.1 K/mm3 (0.0-0.4); Eosinophils % 0.9 % (0.1-12.0); Hematocrit 36.2 % (37.0-47.0); Hemoglobin 11.8 g/dL (12.2-16.2); Lymphocytes # 1.2 K/mm3 (0.7-4.5); Lymphocytes % 14.4 % (10-50); Mean Corpuscular HGB Conc 32.6 g/dL (31.8-35.4); Mean Corpuscular Hemoglobin 27.9 pg (27.0-31.2); Mean Corpuscular Volume 85.5 fl (81-99); Mean Platelet Volume 8.1 fl (7.4-10.4); Monocytes # 0.4 K/mm3 (0.1-1.0); Neutrophils # 6.4 K/mm3 (1.8-7.8); Neutrophils % 79.4 % (37.0-80.0); Platelet Count 116 K/mm3 (142-424); Red Blood Count 4.23 M/mm3 (4.20-5.40); Red Cell Distribution Width 17.3 % (11.5-17.5); White Blood Count 8.1 K/mm3 (4.8-10.8)
[2021-04-26 06:55] LABS: Anion Gap 11.6 mEq/L (5-15); Blood Urea Nitrogen 17 mg/dl (7-17); Calcium 7.6 mg/dl (8.4-10.2); Carbon Dioxide 26 mmol/L (22.0-30.0); Chloride 104 mmol/L (98-107); Creatinine Clearance Estimated 43 mL/min (50-200); Estimated Glomerular Filt Rate 53 ml/min (>60); GFR (African American) 64 ML/MIN (>60); Glucose 143 mg/dl (74-100); Sodium 139 mmol/L (136-145)
[2021-04-26 07:00] LABS: Potassium 2.6 mmoL/L (3.5-5.1)
--- NOTE | 2021-04-26 10:32 | HMH.ACPN ---
Internal Medicine - PN: Subj *Date: 04/26/21 *Time: 10:32 Exam Vital signs and Labs for Last 24 Hours: Temp Pulse Resp BP Pulse Ox 97.6 F 70 16 109/53 L 93 L 04/26/21 08:00 04/26/21 08:00 04/26/21 08:00 04/26/21 08:00 04/26/21 08:00 Laboratory Results - last 24 hr 04/25/21 11:28: POC Glucose 140 H 04/25/21 16:48: POC Glucose 160 H 04/25/21 20:48: POC Glucose 204 H 04/26/21 05:39: POC Glucose 163 H 04/26/21 06:28: WBC 8.1 D, RBC 4.23, Hgb 11.8 L, Hct 36.2 L, MCV 85.5, MCH 27.9, MCHC 32.6, RDW 17.3, Plt Count 116 L, MPV 8.1, Neut % (Auto) 79.4, Lymph % (Auto) 14.4, [place] % (Auto) 5.0, Eos % (Auto) 0.9, Baso % (Auto) 0.3, Neut # (Auto) 6.4, Lymph # (Auto) 1.2, [place] # (Auto) 0.4, Eos # (Auto) 0.1, Baso # (Auto) 0.0 04/26/21 06:28: Sodium 139, Potassium 2.6 L*, Chloride 104, Carbon Dioxide 26, Anion Gap 11.6, BUN 17, Creatinine 1.00, Estimated Creat Clear 43, Estimated GFR 53 L, Est GFR ( Amer) 64, Glucose 143 H, Calcium 7.6 L I & O for Last 24 hours: Intake & Output 04/23/21 04/24/21 04/25/21 04/26/21 23:59 23:59 23:59 23:59 Intake Total 1080 / 1080 840 / 840 700 / 700 120 / 120 Output Total 1550 / 1550 1052 / 1052 2 / 2 Balance -470 / -470 -212 / -212 698 / 698 120 / 120 Weight 67 kg 66.224 kg 64.41 kg 63.701 kg Assessment and Plan (1) CHF (congestive heart failure) Status: Chronic Qualifiers: Heart failure type: diastolic Heart failure chronicity: acute on chronic Qualified Code(s): I50.33 - Acute on chronic diastolic (congestive) heart failure Category: Medical Code(s): I50.9 - Heart failure, unspecified (2) Digitalis toxicity Status: Acute Category: Medical Code(s): T46.0X1A - Poisoning by cardiac-stimulant glycosides and drugs of similar action, accidental (unintentional), initial encounter (3) Edema Status: Acute Category: Medical Code(s): R60.9 - Edema, unspecified (4) SOB (shortness of breath) Status: Acute Category: Medical Code(s): R06.02 - Shortness of breath (5) Colitis Status: Acute Category: Medical Code(s): K52.9 - Noninfective gastroenteritis and colitis, unspecified (6) HLD (hyperlipidemia) Status: Chronic Qualifiers: Category: Medical Code(s): E78.5 - Hyperlipidemia, unspecified (7) Cardiac pacemaker in situ Status: Chronic Category: Medical Code(s): Z95.0 - Presence of cardiac pacemaker (8) HTN (hypertension) Status: Chronic Category: Medical Code(s): I10 - Essential (primary) hypertension (9) Pulmonary HTN Status: Chronic Category: Medical Code(s): I27.20 - Pulmonary hypertension, unspecified (10) Coronary artery disease Status: Chronic Qualifiers: Category: Medical Code(s): I25.10 - Atherosclerotic heart disease of [place] coronary artery without angina pectoris (11) Leukocytosis Status: Acute Category: Medical Code(s): D72.829 - Elevated white blood cell count, unspecified (12) Diabetes Status: Acute Qualifiers: Category: Medical Code(s): E11.9 - Type 2 diabetes mellitus without complications (13) Hypokalemia Status: Acute Category: Medical Code(s): E87.6 - Hypokalemia (14) 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otoxigenic Escherichia coli infection Status: Acute Category: Medical Code(s): A04.1 - Enterotoxigenic Escherichia coli infection The patient's infection will respond to the chosen ABx?: Yes Is the patient receiving the right drug, dose, and route?: Yes Could a more targeted ABx be ordered?: No (CONT ABX. DIARRHEA CONT. WBC DECREASED.)
--- NOTE | 2021-04-26 10:44 | HMH.ACPN2 ---
Internal Medicine - PN: Subj *Date: 04/26/21 *Time: 08:30 Interval history: pt states still having numerous stools. K+ still low this am. Exam Vital signs and Labs for Last 24 Hours: Temp Pulse Resp BP Pulse Ox 97.6 F 70 16 109/53 L 93 L 04/26/21 08:00 04/26/21 08:00 04/26/21 08:00 04/26/21 08:00 04/26/21 08:00 Laboratory Results - last 24 hr 04/25/21 11:28: POC Glucose 140 H 04/25/21 16:48: POC Glucose 160 H 04/25/21 20:48: POC Glucose 204 H 04/26/21 05:39: POC Glucose 163 H 04/26/21 06:28: WBC 8.1 D, RBC 4.23, Hgb 11.8 L, Hct 36.2 L, MCV 85.5, MCH 27.9, MCHC 32.6, RDW 17.3, Plt Count 116 L, MPV 8.1, Neut % (Auto) 79.4, Lymph % (Auto) 14.4, [place] % (Auto) 5.0, Eos % (Auto) 0.9, Baso % (Auto) 0.3, Neut # (Auto) 6.4, Lymph # (Auto) 1.2, [place] # (Auto) 0.4, Eos # (Auto) 0.1, Baso # (Auto) 0.0 04/26/21 06:28: Sodium 139, Potassium 2.6 L*, Chloride 104, Carbon Dioxide 26, Anion Gap 11.6, BUN 17, Creatinine 1.00, Estimated Creat Clear 43, Estimated GFR 53 L, Est GFR ( Amer) 64, Glucose 143 H, Calcium 7.6 L I & O for Last 24 hours: Intake & Output 04/23/21 04/24/21 04/25/21 04/26/21 11:59 11:59 11:59 11:59 Intake Total 600 / 600 840 / 840 720 / 720 580 / 580 Output Total 550 / 550 1400 / 1400 654 / 654 Balance 50 / 50 -560 / -560 66 / 66 580 / 580 Weight 147 lb 1 oz 146 lb 142 lb 140 lb 7 oz - Constitutional no acute distress - *Routine HEENT Exam Head: Present: normocephalic Eye: Present: PERRL ENT: Present: mucous membranes moist - *Routine Neck Exam Present: supple. Absent: lymphadenopathy - *Routine Respiratory Exam Present: CTA bilaterally - *Routine Cardiovascular Exam Present: RRR - *Routine Abdominal Exam Present: soft, normoactive bowel sounds. Absent: tenderness - *Routine Extremities Exam Present: normal capillary refill. Absent: cyanosis, clubbing, edema - *Routine Skin Exam Present: warm. Absent: rash - *Routine Neurological Exam Present: alert, oriented X3 - Routine Psychiatric Exam Present: normal affect Assessment and Plan (1) CHF (congestive heart failure) Status: Chronic Qualifiers: Heart failure type: diastolic Heart failure chronicity: acute on chronic Qualified Code(s): I50.33 - Acute on chronic diastolic (congestive) heart failure Category: Medical Code(s): I50.9 - Heart failure, unspecified (2) Digitalis toxicity Status: Acute Category: Medical Code(s): T46.0X1A - Poisoning by cardiac-stimulant glycosides and drugs of similar action, accidental (unintentional), initial encounter (3) Edema Status: Acute Category: Medical Code(s): R60.9 - Edema, unspecified (4) SOB (shortness of breath) Status: Acute Category: Medical Code(s): R06.02 - Shortness of breath (5) Colitis Status: Acute Category: Medical Code(s): K52.9 - Noninfective gastroenteritis and colitis, unspecified (6) HLD (hyperlipidemia) Status: Chronic Qualifiers: Category: Medical Code(s): E78.5 - Hyperlipidemia, unspecified (7) Cardiac pacemaker in situ Status: Chronic Category: Medical Code(s): Z95.0 - Presence of cardiac pacemaker (8) HTN (hypertension) Status: Chronic Category: Medical Code(s): I10 - Essential (primary) hypertension (9) Pulmonary HTN Status: Chronic Category: Medical Code(s): I27.20 - Pulmonary hypertension, unspecified (10) Coronary artery disease Status: Chronic Qualifiers: Category: Medical Code(s): I25.10 - Atherosclerotic heart disease of [place] coronary artery without angina pectoris (11) Leukocytosis Status: Acute Category: Medical Code(s): D72.829 - Elevated white blood cell count, unspecified (12) Diabetes Status: Acute Qualifiers: Category: Medical Code(s): E11.9 - Type 2 diabetes mellitus without complications (13) Hypokalemia Status: Acute Category: Medical Code(s): E87.6 - Hypokalemia (14) 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 with confirmat
[2021-04-26 11:47] LABS: POC Glucose,Bedside 167 (70-110)
[2021-04-26 17:41] LABS: POC Glucose,Bedside 170 (70-110)
--- NOTE | 2021-04-26 18:33 | PC.NURSE ---
Pt has been pleasant and cooperative this shift. A&O X4. No complaints of pain. No N/V. Appetite is good and pt eats about 75% of every meal. Pt is on room air with sats. >90%. Lungs CTA. No edema noted. Telemetry reveals a Paced rhythm. Skin is C/D/I. Pt ambulates with stand-by assistance to/from the bathroom and throughout the room. Abdomen is soft and non-tender. Pt voids clear, yellow urine without issue. Pt has had 3 small, loose, brown stools this shift. FSBS results have been 167 and 170. 20 G peripheral IV in the RT AC is patent and SL. VSS. Call light within reach. Will continue to monitor.
[2021-04-26 21:31] LABS: POC Glucose,Bedside 224 (70-110)
[2021-04-27] VITALS (7 sets, daily range): BP systolic 105–129; BP diastolic 59–76; PULSE 64–80; RESP 15–17; TEMP 36.3–36.8; O2SAT 96–97; BMI 23.9
--- NOTE | 2021-04-27 03:28 | PC.NURSE ---
Pt A&O. no acute changes overnight. Lungs CTA, on room air. Bowel sounds x4, abd soft and nontender. Pt has had 3 loose stool this shift. IV patent, SL. VSS, call light in reach, no concerns at this time.
[2021-04-27 05:45] LABS: POC Glucose,Bedside 196 (70-110)
[2021-04-27 06:57] LABS: Basophils % 0.3 % (0.1-2.0); Eosinophils # 0.1 K/mm3 (0.0-0.4); Eosinophils % 0.9 % (0.1-12.0); Hematocrit 35.3 % (37.0-47.0); Hemoglobin 11.5 g/dL (12.2-16.2); Lymphocytes # 1.1 K/mm3 (0.7-4.5); Lymphocytes % 16.2 % (10-50); Mean Corpuscular HGB Conc 32.6 g/dL (31.8-35.4); Mean Corpuscular Hemoglobin 27.5 pg (27.0-31.2); Mean Corpuscular Volume 84.4 fl (81-99); Mean Platelet Volume 8.3 fl (7.4-10.4); Monocytes # 0.4 K/mm3 (0.1-1.0); Monocytes % 5.1 % (1.7-9.3); Neutrophils # 5.3 K/mm3 (1.8-7.8); Neutrophils % 77.5 % (37.0-80.0); Platelet Count 122 K/mm3 (142-424); Red Blood Count 4.18 M/mm3 (4.20-5.40); Red Cell Distribution Width 17.2 % (11.5-17.5); White Blood Count 6.8 K/mm3 (4.8-10.8)
[2021-04-27 07:08] LABS: Anion Gap 11.4 mEq/L (5-15); Blood Urea Nitrogen 17 mg/dl (7-17); Calcium 7.9 mg/dl (8.4-10.2); Carbon Dioxide 24 mmol/L (22.0-30.0); Chloride 106 mmol/L (98-107); Creatinine Clearance Estimated 43 mL/min (50-200); Estimated Glomerular Filt Rate 53 ml/min (>60); GFR (African American) 64 ML/MIN (>60); Glucose 142 mg/dl (74-100); Sodium 139 mmol/L (136-145)
[2021-04-27 07:11] LABS: Potassium 2.4 mmoL/L (3.5-5.1)
--- NOTE | 2021-04-27 10:22 | HMH.ACPN2 ---
Internal Medicine - PN: Subj *Date: 04/28/21 *Time: 08:59 Interval history: doing better with diarrhea - low k Exam Vital signs and Labs for Last 24 Hours: Temp Pulse Resp BP Pulse Ox 97.9 F 69 16 111/64 97 04/27/21 08:00 04/27/21 08:00 04/27/21 08:00 04/27/21 08:00 04/27/21 08:00 Laboratory Results - last 24 hr 04/26/21 11:28: POC Glucose 167 H 04/26/21 17:30: POC Glucose 170 H 04/26/21 21:13: POC Glucose 224 H 04/27/21 05:30: POC Glucose 196 H 04/27/21 06:35: WBC 6.8, RBC 4.18 L, Hgb 11.5 L, Hct 35.3 L, MCV 84.4, MCH 27.5, MCHC 32.6, RDW 17.2, Plt Count 122 L, MPV 8.3, Neut % (Auto) 77.5, Lymph % (Auto) 16.2, Cook % (Auto) 5.1, Eos % (Auto) 0.9, Baso % (Auto) 0.3, Neut # (Auto) 5.3, Lymph # (Auto) 1.1, Cook # (Auto) 0.4, Eos # (Auto) 0.1, Baso # (Auto) 0.0 04/27/21 06:35: Sodium 139, Potassium 2.4 L*, Chloride 106, Carbon Dioxide 24, Anion Gap 11.4, BUN 17, Creatinine 1.00, Estimated Creat Clear 43, Estimated GFR 53 L, Est GFR ( Amer) 64, Glucose 142 H, Calcium 7.9 L I & O for Last 24 hours: Intake & Output 04/24/21 04/25/21 04/26/21 04/27/21 11:59 11:59 11:59 11:59 Intake Total 840 / 840 720 / 720 580 / 580 600 / 600 Output Total 1400 / 1400 654 / 654 Balance -560 / -560 66 / 66 580 / 580 600 / 600 Weight 146 lb 142 lb 140 lb 7 oz 140 lb 2 oz - Constitutional no acute distress - *Routine HEENT Exam Head: Present: normocephalic Eye: Present: EOMI, PERRL ENT: Present: mucous membranes dry - *Routine Neck Exam Absent: JVD - *Routine Respiratory Exam Present: decreased breath sounds - *Routine Cardiovascular Exam Present: RRR - *Routine Abdominal Exam Present: soft - *Routine Extremities Exam Absent: calf tenderness - *Routine Skin Exam Present: intact - *Routine Neurological Exam Present: alert, CN II-XII intact - Routine Psychiatric Exam Present: normal affect Assessment and Plan (1) CHF (congestive heart failure) Status: Chronic Qualifiers: Heart failure type: diastolic Heart failure chronicity: acute on chronic Qualified Code(s): I50.33 - Acute on chronic diastolic (congestive) heart failure Category: Medical Code(s): I50.9 - Heart failure, unspecified (2) Digitalis toxicity Status: Acute Category: Medical Code(s): T46.0X1A - Poisoning by cardiac-stimulant glycosides and drugs of similar action, accidental (unintentional), initial encounter (3) Edema Status: Acute Category: Medical Code(s): R60.9 - Edema, unspecified (4) SOB (shortness of breath) Status: Acute Category: Medical Code(s): R06.02 - Shortness of breath (5) Colitis Status: Acute Category: Medical Code(s): K52.9 - Noninfective gastroenteritis and colitis, unspecified (6) HLD (hyperlipidemia) Status: Chronic Qualifiers: Category: Medical Code(s): E78.5 - Hyperlipidemia, unspecified (7) Cardiac pacemaker in situ Status: Chronic Category: Medical Code(s): Z95.0 - Presence of cardiac pacemaker (8) HTN (hypertension) Status: Chronic Category: Medical Code(s): I10 - Essential (primary) hypertension (9) Pulmonary HTN Status: Chronic Category: Medical Code(s): I27.20 - Pulmonary hypertension, unspecified (10) Coronary artery disease Status: Chronic Qualifiers: Category: Medical Code(s): I25.10 - Atherosclerotic heart disease of [place] coronary artery without angina pectoris (11) Leukocytosis Status: Acute Category: Medical Code(s): D72.829 - Elevated white blood cell count, unspecified (12) Diabetes Status: Acute Qualifiers: Category: Medical Code(s): E11.9 - Type 2 diabetes mellitus without complications (13) Hypokalemia Status: Acute Category: Medical Code(s): E87.6 - Hypokalemia (14) 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
[2021-04-27 11:51] LABS: POC Glucose,Bedside 162 (70-110)
--- NOTE | 2021-04-27 16:48 | PC.NURSE ---
Pt has been pleasant and cooperative this shift. A&O X4. No complaints of pain. No N/V. Appetite is good and pt eats about 75% of every meal. Pt is on room air with sats. >90%. Lungs CTA. No edema noted. Telemetry reveals a Paced rhythm. Skin is C/D/I. Pt ambulates with stand-by assistance to/from the bathroom and throughout the room. Abdomen is soft and non-tender. Pt voids clear, yellow urine without issue. Pt has had 1 small, loose, brown stool this shift. FSBS results have been 162 and 231. 20 G peripheral IV in the RT AC is patent and SL. VSS. Call light within reach. Will continue to monitor.
[2021-04-27 16:49] LABS: POC Glucose,Bedside 231 (70-110)
[2021-04-27 20:45] LABS: POC Glucose,Bedside 234 (70-110)
[2021-04-28] VITALS: BP 105/68; PULSE 64; PULSE 72; RESP 16; TEMP 36.7; O2SAT 96
--- NOTE | 2021-04-28 03:46 | PC.NURSE ---
No acute changes overnight. A&O x4, no c/o pain this shift. Pt has had 5 loose bowel movements. PT c/o nausea once through the night, zofran given per mar with desired effect. IV patent. VSS, call light in reach, no concerns at this time.
[2021-04-28 04:00] VITALS: BP 105/63; PULSE 73; RESP 17; TEMP 36.6; O2SAT 99
[2021-04-28 06:02] LABS: POC Glucose,Bedside 256 (70-110)
[2021-04-28 06:03] VITALS: BMI 23.7
[2021-04-28 06:16] LABS: Basophils % 0.2 % (0.1-2.0); Eosinophils # 0.1 K/mm3 (0.0-0.4); Eosinophils % 0.8 % (0.1-12.0); Hematocrit 36.8 % (37.0-47.0); Hemoglobin 11.3 g/dL (12.2-16.2); Lymphocytes # 0.9 K/mm3 (0.7-4.5); Lymphocytes % 12.4 % (10-50); Mean Corpuscular HGB Conc 30.7 g/dL (31.8-35.4); Mean Corpuscular Hemoglobin 26.8 pg (27.0-31.2); Mean Corpuscular Volume 87.3 fl (81-99); Mean Platelet Volume 8.3 fl (7.4-10.4); Monocytes # 0.5 K/mm3 (0.1-1.0); Monocytes % 6.9 % (1.7-9.3); Neutrophils # 5.4 K/mm3 (1.8-7.8); Neutrophils % 79.7 % (37.0-80.0); Platelet Count 112 K/mm3 (142-424); Red Blood Count 4.22 M/mm3 (4.20-5.40); Red Cell Distribution Width 16.8 % (11.5-17.5); White Blood Count 6.8 K/mm3 (4.8-10.8)
[2021-04-28 06:58] LABS: Anion Gap 13.3 mEq/L (5-15); Blood Urea Nitrogen 19 mg/dl (7-17); Calcium 7.8 mg/dl (8.4-10.2); Carbon Dioxide 20 mmol/L (22.0-30.0); Chloride 109 mmol/L (98-107); Creatinine Clearance Estimated 42 mL/min (50-200); Estimated Glomerular Filt Rate 53 ml/min (>60); GFR (African American) 64 ML/MIN (>60); Glucose 241 mg/dl (74-100); Potassium 3.3 mmoL/L (3.5-5.1); Sodium 139 mmol/L (136-145)
[2021-04-28 08:00] VITALS: BP 110/69; PULSE 74; RESP 15; TEMP 36.8; O2SAT 97
--- NOTE | 2021-04-28 10:44 | SW/DCPLANNER ---
Addendum entered by Marycruz Clancy 04/29/21 11:18: Noa with [facility] has confirmed that patient information/order has been reviewed and services will begin this week. Original Note: I spoke with this patient this morning regarding discharge plans. Patient stated that she resides at home with her child. Patient stated that her family is with her 26/04. Patient stated that she has used home health services from [facility] in the past. Patient plans to return home at time of discharge: not interested in placement at time of discharge. Patient is willing to have home health services ordered at time of discharge. I will continue to follow up with patient until medically stable for discharge.
[2021-04-28 16:00] VITALS: BP 151/56; PULSE 79; RESP 16; TEMP 36.4; O2SAT 100
--- NOTE | 2021-04-28 16:12 | HMH.OTEV ---
OT Inpatient Evaluation Rehab OT IP Evaluation Start: 04/28/21 13:39 Freq: ONCE Status: Complete Protocol: Document 04/28/21 15:40 PRACHI (Rec: 04/28/21 16:09 PRACHI [id number]) Rehab OT IP Assessment Subjective History Admission Date: 04/22/21 *Chief complaint: Abdominal Pain *History of present illness: 85-year-old female patient presented to the [facility] ED with complaints of liquid watery- like stools, nausea and diffuse abdominal pain. She reports for several days she has had an increased number of stools Lab work in the emergency department revealed white blood cell count 12.5, hemoglobin and hematocrit stable. PMH: Atrial Fibrillation, Cardiomyopathy, Congestive Heart Failure, Coronary Artery Disease, Diabetes Mellitus Type 2, Gastroesophageal Reflux Disease(GERD), Hyperlipidemia, Hypertension, Internal Pacemaker, Peripheral Artery Disease Electrolytes are within normal Pelvic CT scan 1. Diffuse wall thickening of the colon with adjacent inflammatory stranding compatible with colitis. 2. 17 mm hyperdense structure within the region of the left adnexa which is indeterminate but may be residual ovarian tissue. Correlation. 3. Diverticulosis coli. 4. Moderate right and trace left pleural effusions with associated streaky basilar airspace opacities which may be on the basis atelectasis or
--- NOTE | 2021-04-28 16:24 | HMH.ACPN2 ---
Internal Medicine - PN: Subj *Date: 04/28/21 *Time: 21:19 Interval history: improved and has better k - Exam Vital signs and Labs for Last 24 Hours: Temp Pulse Resp BP Pulse Ox 97.5 F L 79 16 151/56 H 100 04/28/21 16:00 04/28/21 16:00 04/28/21 16:00 04/28/21 16:00 04/28/21 16:00 Laboratory Results - last 24 hr 04/27/21 16:38: POC Glucose 231 H 04/27/21 19:42: POC Glucose 234 H 04/28/21 05:47: WBC 6.8, RBC 4.22, Hgb 11.3 L, Hct 36.8 L, MCV 87.3, MCH 26.8 L, MCHC 30.7 L, RDW 16.8, Plt Count 112 L, MPV 8.3, Neut % (Auto) 79.7, Lymph % (Auto) 12.4, Bond % (Auto) 6.9, Eos % (Auto) 0.8, Baso % (Auto) 0.2, Neut # (Auto) 5.4, Lymph # (Auto) 0.9, Bond # (Auto) 0.5, Eos # (Auto) 0.1, Baso # (Auto) 0.0 04/28/21 05:47: Sodium 139, Potassium 3.3 L D, Chloride 109 H, Carbon Dioxide 20 L, Anion Gap 13.3, BUN 19 H, Creatinine 1.00, Estimated Creat Clear 42, Estimated GFR 53 L, Est GFR ( Amer) 64, Glucose 241 H D, Calcium 7.8 L 04/28/21 05:49: POC Glucose 256 H I & O for Last 24 hours: Intake & Output 04/26/21 04/27/21 04/28/21 04/29/21 11:59 11:59 11:59 11:59 Intake Total 580 / 580 600 / 600 1080 / 1080 240 / 240 Balance 580 / 580 600 / 600 1080 / 1080 240 / 240 Weight 140 lb 7 oz 140 lb 2 oz 138 lb 12.8 oz - Constitutional no acute distress - *Routine HEENT Exam Head: Present: normocephalic Eye: Present: EOMI, PERRL ENT: Present: mucous membranes dry - *Routine Neck Exam Present: supple. Absent: JVD - *Routine Respiratory Exam Present: CTA bilaterally - *Routine Cardiovascular Exam Present: RRR, murmur - *Routine Abdominal Exam Present: soft. Absent: tenderness - *Routine Extremities Exam Absent: calf tenderness - *Routine Skin Exam Present: intact - *Routine Neurological Exam Present: alert, CN II-XII intact - Routine Psychiatric Exam Present: normal affect Assessment and Plan (1) CHF (congestive heart failure) Status: Chronic Qualifiers: Heart failure type: diastolic Heart failure chronicity: acute on chronic Qualified Code(s): I50.33 - Acute on chronic diastolic (congestive) heart failure Category: Medical Code(s): I50.9 - Heart failure, unspecified (2) Digitalis toxicity Status: Acute Category: Medical Code(s): T46.0X1A - Poisoning by cardiac-stimulant glycosides and drugs of similar action, accidental (unintentional), initial encounter (3) Edema Status: Acute Category: Medical Code(s): R60.9 - Edema, unspecified (4) SOB (shortness of breath) Status: Acute Category: Medical Code(s): R06.02 - Shortness of breath (5) Colitis Status: Acute Category: Medical Code(s): K52.9 - Noninfective gastroenteritis and colitis, unspecified (6) HLD (hyperlipidemia) Status: Chronic Qualifiers: Category: Medical Code(s): E78.5 - Hyperlipidemia, unspecified (7) Cardiac pacemaker in situ Status: Chronic Category: Medical Code(s): Z95.0 - Presence of cardiac pacemaker (8) HTN (hypertension) Status: Chronic Category: Medical Code(s): I10 - Essential (primary) hypertension (9) Pulmonary HTN Status: Chronic Category: Medical Code(s): I27.20 - Pulmonary hypertension, unspecified (10) Coronary artery disease Status: Chronic Qualifiers: Category: Medical Code(s): I25.10 - Atherosclerotic heart disease of [place] coronary artery without angina pectoris (11) Leukocytosis Status: Acute Category: Medical Code(s): D72.829 - Elevated white blood cell count, unspecified (12) Diabetes Status: Acute Qualifiers: Category: Medical Code(s): E11.9 - Type 2 diabetes mellitus without complications (13) Hypokalemia Status: Acute Category: Medical Code(s): E87.6 - Hypokalemia (14) 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
--- NOTE | 2021-04-28 16:34 | PC.NURSE ---
PT IS SITTING UP IN THE CHAIR. NO COMPLAINTS OF DISCOMFORT. AMBULATED TO THE BATHROOM WITH 1 ASSIST. PT/OT EVAL THIS SHIFT. EATING AND DRINKING WELL. LUNG SOUNDS CLEAR. ABDOMEN SOFT/NON TENDER WITH ACTIVE BOWEL SOUNDS. MILD SWELLING NOTED TO BLE. NEW IV ACCESS TO THE LFA. VSS. WILL CONTINUE TO MONITOR.
[2021-04-28 17:37] LABS: POC Glucose,Bedside 200 (70-110)
[2021-04-28 17:48] LABS: POC Glucose,Bedside 273 (70-110)
[2021-04-28 19:50] VITALS: BP 117/70; PULSE 73; RESP 18; TEMP 36.3; O2SAT 97
[2021-04-29 01:00] LABS: POC Glucose,Bedside 192 (70-110)
[2021-04-29 03:30] VITALS: BP 106/50; PULSE 70; RESP 18; TEMP 36.4; O2SAT 98
--- NOTE | 2021-04-29 03:47 | PC.NURSE ---
No acute changes overnight. Pt rested well this shift. on room air. Able to ambulate to BR with walker and stand by assist. VSS. call light in reach, no concerns at this time.
[2021-04-29 05:13] VITALS: BMI 23.4
[2021-04-29 06:37] LABS: POC Glucose,Bedside 152 (70-110)
[2021-04-29 07:31] LABS: Basophils % 0.3 % (0.1-2.0); Eosinophils # 0.1 K/mm3 (0.0-0.4); Eosinophils % 0.9 % (0.1-12.0); Hematocrit 38.8 % (37.0-47.0); Hemoglobin 11.5 g/dL (12.2-16.2); Lymphocytes # 1.1 K/mm3 (0.7-4.5); Lymphocytes % 17.9 % (10-50); Mean Corpuscular HGB Conc 29.6 g/dL (31.8-35.4); Mean Corpuscular Hemoglobin 26.5 pg (27.0-31.2); Mean Corpuscular Volume 89.6 fl (81-99); Mean Platelet Volume 7.9 fl (7.4-10.4); Monocytes # 0.4 K/mm3 (0.1-1.0); Monocytes % 5.8 % (1.7-9.3); Neutrophils # 4.8 K/mm3 (1.8-7.8); Neutrophils % 75.2 % (37.0-80.0); Platelet Count 101 K/mm3 (142-424); Red Blood Count 4.33 M/mm3 (4.20-5.40); White Blood Count 6.3 K/mm3 (4.8-10.8)
[2021-04-29 08:00] VITALS: BP 125/67; PULSE 82; PULSE 87; RESP 19; TEMP 36.7; O2SAT 99
[2021-04-29 08:03] LABS: Blood Urea Nitrogen 20 mg/dl (7-17); Carbon Dioxide 21 mmol/L (22.0-30.0); Chloride 110 mmol/L (98-107); Creatinine Clearance Estimated 42 mL/min (50-200); Estimated Glomerular Filt Rate 53 ml/min (>60); GFR (African American) 64 ML/MIN (>60); Glucose 144 mg/dl (74-100); Sodium 142 mmol/L (136-145)
--- NOTE | 2021-04-29 08:34 | HMH.PTEV ---
Physical Therapy Evaluation Rehab PT IP Evaluation Start: 04/28/21 13:39 Freq: ONCE Status: Active Protocol: Document 04/29/21 08:31 KI (Rec: 04/29/21 08:33 PHOMARSHA [id number]) Subjective/History History History 85 yowf adm to [facility] with colitis. She reports she lives with family, 4 steps to enter the home, and is independent with all mobility using her RW . Subjective Subjective Pt has no c/o this am. Rehab PT IP Eval Objective Appearance Patient Behavior Appropriate Patient Orientation Person,Place,Time Difficulty following instructions none Speech Pattern Clear Ambulation Patient Able to Ambulate Yes Ambulation Observation IP General Gait Pattern Observation No Deviations/Normal Ambulation Distance (feet) 75 Ambulation Assistive Device Rolling Walker Ambulation Ability Supervision/Stand by Balance Ability to Arise Able, uses arms to help Sitting Balance Steady, safe Standing Balance Steady, wide stance Dynamic Sitting Balance Ability Good Dynamic Standing Balance Ability Good Transfers Bed Transfer Ability Supervision/Stand by Chair Transfer Ability Supervision/Stand by Sit to Stand Bed Transfer Ability Supervision/Stand by Sit to Stand Chair Transfer Ability Supervision/Stand by ROM All Extremities PT ROM Status WFL MMT All Extremities PT MMT WFL Rehab PT IP prob,goals,plan Problems Date of Evaluation: 04/29/21 Discharge Plan PT Discharge Plan Pt presents at baseline for all mobility at this time, no current inpatient therapy needs. Recommend home health therapy once medically ready for D/C. G -code Required No Eval Complexity Eval Charge Codes 84015 - Moderate Complexity PHYSICIAN CERTIFICATION: I certify the specified therapy services for Kareen Mallory are required, authorized, and reviewed every 30 days.
--- NOTE | 2021-04-29 11:17 | HMH.DCSUM ---
General - General Admission date:: 04/22/21 Discharge date: 04/29/21 HPI HPI: 85-year-old female patient presented to the [facility] ED with complaints of liquid watery-like stools, nausea and diffuse abdominal pain. She reports for several days she has had an increased number of stools Lab work in the emergency department revealed white blood cell count 12.5, hemoglobin and hematocrit stable Electrolytes are within normal CRP 37.9, ESR 21 BNP 8290 04/22/21 CXR: IMPRESSION: Cardiomegaly with effusions and streaky basilar airspace opacities and mild interstitial coarsening. Follow-up to radiographic clearance is recommended. Electronically signed by Elvin Lizarraga MD 04/22/21 Abd/Pelvis CT: FINDINGS: Pleural spaces: Moderate right and trace left pleural effusions with associated streaky basilar airspace opacities. Heart: Mild cardiomegaly. 8 mm pericardial effusion best appreciated on coronal projection. Partially visualized cardiac pacing wires. Mediastinal space: Small hiatal hernia. Liver: Normal. No mass. Gallbladder and bile ducts: Gallbladder is not visualized. Pancreas: Fatty atrophy of the pancreas. Spleen: No splenomegaly. Adrenal glands: No mass. Kidneys and ureters: Renal cysts measuring up to 3.1 cm. No hydronephrosis. Stomach and bowel: Diffuse wall thickening of the colon with adjacent inflammatory stranding. Diverticulosis coli. Appendix: No evidence of appendicitis. Intraperitoneal space: No free air. Trace ascites. Vasculature: Calcified atherosclerosis. No aneurysm. Lymph nodes: No enlarged lymph nodes. Urinary bladder: No acute abnormality. Reproductive: 17 mm hyperdense structure within the region of the left adnexa. Bones/joints: Degenerative changes of the spine. No fracture. Soft tissues: No soft tissue swelling. IMPRESSION: 1. Diffuse wall thickening of the colon with adjacent inflammatory stranding compatible with colitis. 2. 17 mm hyperdense structure within the region of the left adnexa which is indeterminate but may be residual ovarian tissue. Correlation. 3. Diverticulosis coli. 4. Moderate right and trace left pleural effusions with associated streaky basilar airspace opacities which may be on the basis atelectasis or pneumonia. 5. Mild cardiomegaly with small pericardial effusion. 6. Small hiatal hernia. Hospital Course Hospital Course: 85-year-old female patient presented to the [facility] ED with complaints of liquid watery-like stools, nausea and diffuse abdominal pain. She reports for several days she has had an increased number of stools Lab work in the emergency department revealed white blood cell count 12.5, hemoglobin and hematocrit stable Electrolytes are within normal CRP 37.9, ESR 21 BNP 8290 04/22/21 CXR:
== END 2021-04-29 12:00 | disposition home or self-care (01) ==
LOC: ER 22:02 → 2ND 22:11
PROVIDERS: Nurse Practitioner Family; Admitting Provider Emergency Medicine; Emergency Provider Emergency Medicine; PCP Emergency Medicine; Visit Provider Emergency Medicine
DX: K52.9 Noninfective gastroenteritis and colitis, unspecified (principal); Z20.822 Contact with and (suspected) exposure to COVID-19; E87.6 Hypokalemia; I27.20 Pulmonary hypertension, unspecified; I25.10 Atherosclerotic heart disease of native coronary artery without angina pectoris; E11.51 Type 2 diabetes mellitus with diabetic peripheral angiopathy without gangrene; E78.5 Hyperlipidemia, unspecified; M19.90 Unspecified osteoarthritis, unspecified site; T46.0X5A Adverse effect of cardiac-stimulant glycosides and drugs of similar action, initial encounter; Z95.0 Presence of cardiac pacemaker; I48.91 Unspecified atrial fibrillation; D72.829 Elevated white blood cell count, unspecified; B96.20 Unspecified Escherichia coli [E. coli] as the cause of diseases classified elsewhere; D61.818 Other pancytopenia; I11.0 Hypertensive heart disease with heart failure; I50.33 Acute on chronic diastolic (congestive) heart failure
CPT/HCPCS: 36415; 71046; 74177; 80048; 80053; 80061; 80162; 81001; 82150; 82962; 83690; 83735; 83880; 84145; 84484; 85007; 85025; 85651; 86140; 87506; 93005; 93308; 96365; 97110; 97162; 97165; 99283; G0378; J1956; J2405; Q9967; U0003

== ENCOUNTER → 2021-05-14 18:12 | Outpatient (CLI) | payer MEDICARE, MEDICAID, SELFPAY | PROVIDERS: Visit Provider Emergency Medicine | DX: R82.90 Unspecified abnormal findings in urine (principal) | CPT/HCPCS: 87086 ==

== ENCOUNTER 2021-05-24 19:20 | Emergency (ER) | payer MEDICARE, MEDICAID, SELFPAY ==
[2021-05-24 19:32] VITALS: BP 116/73; PULSE 79; RESP 16; TEMP 36.7; O2SAT 99; BMI 23.2
[2021-05-24 20:00] VITALS: BP 116/73; PULSE 79; RESP 16; TEMP 36.7; O2SAT 99; BMI 23.2
[2021-05-24 20:18] LABS: Adenovirus,PCR Not Detected (NotDetected); Bordetella Pertussis Not Detected (NotDetected); Chlamydophila Pneumoniae, PCR Not Detected (NotDetected); Coronavirus 19, PCR Not Detected (NotDetected); Coronavirus 229E Not Detected (NotDetected); Coronavirus NL63 Not Detected (NotDetected); Coronavirus OC43 Not Detected (NotDetected); Coronovirus HKU1,PCR Not Detected (NotDetected); Human Metapneumovirus Not Detected (NotDetected); Influenza A, PCR Not Detected (NotDetected); Influenza AH1, 2009 Not Detected (NotDetected); Influenza AH1, PCR Not Detected (NotDetected); Influenza AH3,PCR Not Detected (NotDetected); Influenza B, PCR Not Detected (NotDetected); Mycoplasma Pneumoniae, PCR Not Detected (NotDetected); Parainfluenza 1, PCR Not Detected (NotDetected); Parainfluenza 2, PCR Not Detected (NotDetected); Parainfluenza 3, PCR Not Detected (NotDetected); Parainfluenza 4, PCR Not Detected (NotDetected); Rhinovirus/Enterovirus Not Detected (NotDetected)
--- NOTE | 2021-05-24 20:27 | HMH.EDUTC ---
[facility] Disposition Clinical Impression: Strep throat Disposition: Home, Self-Care Condition on Discharge: Good Instructions: Strep Throat, DI for Strep Throat, DI for Constipation Additional Instructions: *Monitor Temp, Over the counter Motrin or Tylenol as directed/as needed Tylenol every 4 hours and Motrin every 6 hours (as long as your family doctor has told you that you can take it) for fever or pain. and straight to ER if unable to lower temp less than 101.0 after medication given *Warm salt water gargles may help to soothe the throat *Throat Lozenges *Warm fluids like tea with honey may help to soothe the throat *Sleep elevated *Humidifier/Vaporizer *If you did not take Penicillin shot or was unable to, start taking antibiotic immediately and make sure that you take it for the FULL length of time although you should start to feel better in 24-48 hours *change toothbrush and toothpaste 24-48 hours after starting to take antibiotics so you do not reinfect yourself Monitor Temp. Tylenol and/or Ibuprofen as needed. ER if fever is no less than 101 despite alternating Tylenol and Ibuprofen * Encourage fluids, water, Gatorade, powerade, pedialyte if infant/toddler/or child *Cold fluids, popsicles and ice cream may feel good on his throat Follow up IMMEDIATELY for new or worsening symptoms or no Noticeable improvement over the next 48-72 hours. 911 for difficulty breathing or swallowing You were tested for today for COVID19 your test result should be back in the next 24-48 hours, you may call to the [facility] to see if your test results are back in the next 48 hours [phone] [facility] hours are 9am-9pm You was given a handout with instructions for Self Quarantine and Self isolation for while you wait on test results and what to do if they are positive If you are positive the Health Dept will be contacting you also Make sure to take your Vitamins Vit. C Vit D and Zinc if you can take them Prescriptions: Amoxicillin [Amoxicillin 500mg Cap] 500 mg PO BID 10 Days #20 cap Transmission Status: Received by [facility] Referrals: Marcel Hylton MD [Primary Care Provider] - As needed Time of Disposition: 21:10 Medical Decision Making - Thomas Inquiry Pt receiving controlled substance: No Thomas was queried for this patient: No Vital Signs: 05/24/21 19:32 05/24/21 20:00 05/24/21 21:03 Temperature 98.1 F 98.1 F 98.1 F Temperature Source Oral Oral Pulse Rate 79 Pulse Rate [Right] 79 79 Respiratory Rate 16 16 16 Blood Pressure 116/73 Blood Pressure [Right Arm] 116/73 116/73 Blood Pressure Mean [Right Arm] 87 87 Blood Pressure Source [Right Arm] Automatic Cuff Blood Pressure Position [Right Arm] Sitting 02 Sat by Pulse Oximetry 99 99 Oxygen Delivery Method Room Air - Lab Data Lab results reviewed: Yes: I reviewed the patient's lab results. Lab Results 05/24/21 20:43: Strep Scn Rapid Clinic Positive A Orders (Tests/Meds): ED MEDICATIONS Discontinued Medications Generic Name Dose Route Start Last Admin Trade Name Freq PRN Reason Stop Dose Admin Amoxicillin 500 mg 05/24/21 21:10 Amoxicillin 500mg Capsule PO 05/24/21 21:11 ONCE ONE ORDERS Category Date Time Status Full Resp Panel w/COVID ([facility]) Routine Lab 05/24/21 20:16 Received Medical Decision Narrative: Ordered KUB to check for constipation and Radiology advised it would be a little while that was tied up and patient declined state that she didnt want to wait for it Due to patient age discussed medications with pharmacy due to patient age and H and patient and daughter state that she has taken Amoxicillin in the past without reaction or complications [facility] HPI - General Stated complaint: congested, cough, stomach, sore throat, Time Seen by Provider: 05/24/21 20:20 Mode of Arrival: Ambulatory Source of Information: Patient, Relative Limitations: No Limitations Description of Symptoms (Recalled from [facility]
[2021-05-24 20:58] LABS: UTC Strep Screen (Rapid) Positive (Negative)
[2021-05-24 21:03] VITALS: BP 116/73; PULSE 79; RESP 16; TEMP 36.7; O2SAT 99
[2021-05-25 00:43] LABS: Respiratory Syncytial Virus Detected (NotDetected)
== END 2021-05-24 21:20 | disposition home or self-care (01) ==
PROVIDERS: Emergency Provider Nurse Practitioner; PCP Emergency Medicine
DX: J02.0 Streptococcal pharyngitis (principal)
CPT/HCPCS: 87581; 87633; 87798; 87880; 99203; G0463

== ENCOUNTER → 2021-05-26 09:07 | Outpatient (CLI) | payer MEDICARE, MEDICAID, SELFPAY ==
--- NOTE | 2021-05-26 09:07 | FL_ITS ---
PROCEDURE: FL UPPER GI SMALL BOWEL CLINICAL INDICATION: colitis COMPARISON: CT CT ABDOMEN PELVIS W CON from 04/22/2021 FINDINGS: Fluoroscopy time: 1.39 minutes. 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 There is a wide-mouth mid esophageal diverticulum. Small hiatal hernia noted. The stomach and duodenum have an unremarkable appearance. No mass or ulcer is evident. Small bowel has an unremarkable appearance. No obstructing lesions or mucosal abnormalities. Terminal ileum is unremarkable. IMPRESSION: 1. Midesophageal diverticulum. 2. Small hiatal hernia 3. Otherwise unremarkable upper GI and small-bowel follow-through Dictated by: Chalo Oh MD 05/26/2021 12:05 Chalo Oh MD in [place] 05/26/2021 12:05
== END ==
PROVIDERS: PCP Emergency Medicine; Visit Provider Emergency Medicine
DX: K52.9 Noninfective gastroenteritis and colitis, unspecified (principal)
CPT/HCPCS: 74246; 74248

== ENCOUNTER → 2021-07-16 13:44 | Outpatient (CLI) | payer MEDICARE, MEDICAID, SELFPAY | PROVIDERS: Visit Provider Nurse Practitioner Family | DX: N39.0 Urinary tract infection, site not specified (principal); R57.0 Cardiogenic shock; B96.20 Unspecified Escherichia coli [E. coli] as the cause of diseases classified elsewhere | CPT/HCPCS: 87086; 87088; 87186 ==

== ENCOUNTER → 2021-08-01 13:19 | Outpatient (CLI) | payer MEDICARE, MEDICAID, SELFPAY ==
[2021-08-01 14:50] LABS: Chloride 93 mmol/L (98-107); Sodium 132 mmol/L (136-145)
[2021-08-01 14:53] LABS: Blood Urea Nitrogen 36 mg/dl (7-17); Estimated Glomerular Filt Rate 43 ml/min (>60); GFR (African American) 52 ML/MIN (>60)
[2021-08-01 14:54] LABS: Calcium 9.5 mg/dl (8.4-10.2); Carbon Dioxide 28 mmol/L (22.0-30.0)
[2021-08-01 15:53] LABS: Glucose 424 mg/dl (74-100)
== END ==
PROVIDERS: Visit Provider Emergency Medicine
DX: R82.90 Unspecified abnormal findings in urine (principal); N28.9 Disorder of kidney and ureter, unspecified; B96.20 Unspecified Escherichia coli [E. coli] as the cause of diseases classified elsewhere
CPT/HCPCS: 80048; 87086; 87088; 87186

== ENCOUNTER 2021-08-18 12:28 | Observation (INO) | payer MEDICARE, MEDICAID, SELFPAY ==
[2021-08-18] VITALS (10 sets, daily range): BP systolic 109–159; BP diastolic 63–84; PULSE 70–72; RESP 15–18; TEMP 36.5–37.1; O2SAT 95–99; BMI 21.7; BMI 20.9
--- NOTE | 2021-08-18 12:49 | ECG_ITS ---
APPROVED REPORT Exam: Resting ECG HR:70 bpm ECG Measurements Heart Rate 70 AXES QRSd 174 QRS -85 QT 404 T 100 QTc 436 Conclusion AV sequential or dual chamber electronic pacemaker Electronically signed by : Alexy Rivera MD 08/19/2021 22:11:21
--- NOTE | 2021-08-18 13:19 | XR_ITS ---
PROCEDURE: XR CHEST PORTABLE CLINICAL HISTORY: cough COMPARISON: CT CT ANGIO CHEST from 02/23/2021 CR XR CHEST PORTABLE from 02/23/2021 CR XR CHEST AP from 02/23/2021 CR XR CHEST 2V from 04/22/2021 FINDINGS: Normal heart size. Bipolar pacemaker is present from left subclavian approach. The lungs are clear without infiltrates, suspicious nodules, or pleural effusions. No acute bony abnormalities. IMPRESSION: No acute findings. Dictated by: Chalo Oh MD 08/18/2021 15:13 Chalo Oh MD in OV 08/18/2021 15:13
--- NOTE | 2021-08-18 13:19 | HMH.EDWEAK ---
ED Disposition Clinical Impression: Hyperkalemia, Acute kidney injury DKA (diabetic ketoacidosis) Qualifiers: Diabetes mellitus type: type 1 Diabetes mellitus complication detail: without coma Qualified Code(s): E10.10 - Type 1 diabetes mellitus with ketoacidosis without coma Disposition: Admitted As Inpatient Condition on Discharge: Fair Referrals: Marcel Hylton MD [Primary Care Provider] - - Critical Care Critical Care Time: No Attestation: On 08/18/21, the high probability of a clinically significant, sudden or life threatening deterioration of the following system(s) required my full and direct attention, intervention and personal management. The time I documented below is in addition to time spent performing reported procedures but includes the following listed in this critical care notation. Medical Decision Making - Medical Records Medical records reviewed: Yes: I reviewed the patient's medical records. - Thomas Inquiry Pt receiving controlled substance: No Vital Signs: 08/18/21 12:30 08/18/21 13:01 08/18/21 13:30 Temperature 98.7 F Temperature Source Oral Pulse Rate 70 70 Pulse Rate [Left Radial] 70 Respiratory Rate 18 Blood Pressure 112/65 121/69 Blood Pressure [Right Arm] 132/67 Blood Pressure Mean 79 86 Blood Pressure Mean [Right Arm] 88 Blood Pressure Source [Right Arm] Automatic Cuff Blood Pressure Position [Right Arm] Sitting 02 Sat by Pulse Oximetry 97 96 95 Oxygen Delivery Method Room Air - Lab Data Lab Results 08/18/21 12:57: WBC 13.3 H, RBC 4.75, Hgb 12.7, Hct 40.2, MCV 84.7, MCH 26.7 L, MCHC 31.5 L, RDW 16.1, Plt Count 240, MPV 8.0, Neut % (Auto) 80.7 H, Lymph % (Auto) 14.0, [place] % (Auto) 4.7, Eos % (Auto) 0.3, Baso % (Auto) 0.3, Neut # (Auto) 10.8 H, Lymph # (Auto) 1.9, [place] # (Auto) 0.6, Eos # (Auto) 0.0, Baso # (Auto) 0.0 08/18/21 12:57: Sodium 124 L, Potassium 6.7 H*, Chloride 89 L, Carbon Dioxide 24, Anion Gap 17.7 H, BUN 72 H, Creatinine 1.30 H, Estimated Creat Clear 28, Estimated GFR 39 L, Est GFR ( Amer) 47 L, Glucose 624 H*, Calcium 10.1, Total Bilirubin 0.6, AST 36, ALT 22, Alkaline Phosphatase 139 H, Troponin I 0.02, Total Protein 7.5, Albumin 4.3, Globulin 3.2, Albumin/Globulin Ratio 1.3, Lipase 28, TSH 2.87 08/18/21 12:57: Acetone Level None detected 08/18/21 14:03: VBG pH 7.34, VBG pCO2 43.8, VBG pO2 44.1 H, VBG HCO3 22.9 L, VBG Total CO2 24.2, VBG O2 Saturation 76.3 H, VBG Base Excess -2.9 L 08/18/21 14:04: Urine Color Yellow, Urine Appearance Clear, Urine pH 6.0, Ur Specific Leigh 1.015, Urine Protein Negative, Urine Glucose (UA) 3+, Urine Ketones Negative, Urine Blood Trace-i, Urine Nitrate Negative, Urine Bilirubin Negative, Urine Urobilinogen 0.2, Ur Leukocyte Esterase 1+ A Result diagrams: 08/18/21 12:57 08/18/21 12:57 Orders (Tests/Meds): ED MEDICATIONS Generic Name Dose Route Start Last Admin Trade Name Freq PRN Reason Stop Dose Admin Sodium Chloride 1,000 mls @ 999 mls/hr 08/18/21 14:15 08/18/21 14:27 Sod Chlor 0.9% 1000ml Bag IV 08/18/21 15:15 999 mls/hr .Q1H1M VALENTINA Administration Discontinued Medications Generic Name Dose Route Start Last Admin Trade Name Freq PRN Reason Stop Dose Admin Calcium Gluconate 1,000 mg/ 35 mls @ 100 mls/hr 08/18/21 14:04 08/18/21 14:25 Sodium Chloride IV 08/18/21 14:24 100 mls/hr ONCE ONE Administration Insulin Human Regular 10 unit 08/18/21 14:04 08/18/21 14:28 Insulin Human Regular 100 Units/Ml 10ml Vial IVP 08/18/21 14:05 10 unit ONCE ONE Administration ORDERS Category Date Time Status XR chest portable Stat Exams 08/18/21 13:19 Taken Rapid PCR Covid and Flu A/B Stat Lab 08/18/21 14:42 Received Troponin I Q3H Lab 08/18/21 16:30 Ordered Troponin I Q3H Lab 08/18/21 19:30 Ordered Urinalysis and Microscopic Stat Lab 08/18/21 14:04 Results Urine Culture Stat Micro 08/18/21 14:04 Received - Radiology Data #1 Image(s): Gonzalez
[2021-08-18 13:39] LABS: Basophils % 0.3 % (0.1-2.0); Eosinophils % 0.3 % (0.1-12.0); Hematocrit 40.2 % (37.0-47.0); Hemoglobin 12.7 g/dL (12.2-16.2); Lymphocytes # 1.9 K/mm3 (0.7-4.5); Mean Corpuscular HGB Conc 31.5 g/dL (31.8-35.4); Mean Corpuscular Hemoglobin 26.7 pg (27.0-31.2); Mean Corpuscular Volume 84.7 fl (81-99); Monocytes # 0.6 K/mm3 (0.1-1.0); Monocytes % 4.7 % (1.7-9.3); Neutrophils # 10.8 K/mm3 (1.8-7.8); Neutrophils % 80.7 % (37.0-80.0); Platelet Count 240 K/mm3 (142-424); Red Blood Count 4.75 M/mm3 (4.20-5.40); Red Cell Distribution Width 16.1 % (11.5-17.5); White Blood Count 13.3 K/mm3 (4.8-10.8)
[2021-08-18 13:44] LABS: Chloride 89 mmol/L (98-107); Sodium 124 mmol/L (136-145)
[2021-08-18 13:46] LABS: Alanine Aminotransferase 22 U/L (12-78); Aspartate Amino Transferase 36 U/L (14-36); Blood Urea Nitrogen 72 mg/dl (7-17); Creatinine Clearance Estimated 28 mL/min (50-200); Estimated Glomerular Filt Rate 39 ml/min (>60); GFR (African American) 47 ML/MIN (>60)
[2021-08-18 13:47] LABS: Albumin Level 4.3 g/dl (3.5-5.0); Albumin/Globulin Ratio 1.3 (1.1-1.8); Alkaline Phosphatase 139 U/L (38-126); Anion Gap 17.7 mEq/L (5-15); Bilirubin,Total 0.6 mg/dl (0.2-1.3); Calcium 10.1 mg/dl (8.4-10.2); Carbon Dioxide 24 mmol/L (22.0-30.0); Globulin 3.2 g/dL (1.3-3.2); Lipase 28 U/L (23-300); Total Protein,Serum 7.5 g/dl (6.3-8.2)
[2021-08-18 13:58] LABS: Potassium 6.7 mmoL/L (3.5-5.1)
[2021-08-18 13:59] LABS: Glucose 624 mg/dl (74-100); Troponin I 0.02 ng/ml (0.00-0.034)
--- NOTE | 2021-08-18 13:59 | PC.NURSE ---
Leslie from lab called criticals on patient. Verified and repeated back of Potassium 6.7 and glucose 624
[2021-08-18 14:15] LABS: VBG Base Excess -2.9 mmol/L (-2.4-2.3); VBG HCO3 22.9 mmol/L (23-30); VBG Oxygen Saturation 76.3 % (50-70); VBG PCO2 43.8 mmol/L (35-51); VBG PH 7.34 mmol/L (7.31-7.41); VBG PO2 44.1 mmol/L (28-40); VBG Total CO2 24.2 mmol/L (23-27)
[2021-08-18 14:16] LABS: Microscopic, Urine URINE MICROSCOPIC (MICROSCOPIC)
[2021-08-18 14:17] LABS: Acetone, Serum (Rapid) None Detected (None Detect)
[2021-08-18 14:18] LABS: Thyroid Stimulating Hormone 2.87 uIU/mL (0.465-4.68)
[2021-08-18 14:42] LABS: Appearance,Urine CLEAR (Clear); Bilirubin,Urine Negative (Negative); Blood, Urine TRACE-I (Negative); Color,Urine YELLOW (Yellow); Glucose,Urine (UA) 3+ (Negative); Ketones,Urine Negative (Negative); Leukocyte Esterase,Urine 1+ (Negative); Nitrate,Urine Negative (Negative); Protein,Urine Negative (Negative); Specific Gravity, Urine 1.015 (1.005-1.030); Urobilinogen,Urine 0.2 EU/dl (0.2)
[2021-08-18 14:45] LABS: Coronavirus 19, PCR Not Detected (NotDetected); Influenza A, PCR Not Detected (NotDetected); Influenza B, PCR Not Detected (NotDetected)
[2021-08-18 15:05] LABS: Bacteria,Urine 1+ /lpf; WBC,Urine 20-50 #/hpf (0-3); Yeast,Urine 3+ /lpf
--- NOTE | 2021-08-18 15:36 | HMH.PHAVTE ---
[facility] VTE Monitoring - Patient Demographics Admission date: 08/18/21 Report Date: 08/18/21 Time: 15:36 Allergies/Adverse Reactions: Patient Allergies No Known Allergies Allergy (Verified 08/08/21 13:06) Height: 1.6 m Weight: 55.792 kg Patient Problems: Current Active Problems DKA (diabetic ketoacidosis) (Acute) Acute kidney injury (Acute) Hyperkalemia (Acute) - VTE Risk Labs: VTE Related Lab Results Hgb 12.7 g/dL (12.2-16.2) 08/18/21 12:57 Hct 40.2 % (37.0-47.0) 08/18/21 12:57 Plt Count 240 K/mm3 (142-424) 08/18/21 12:57 BUN 72 mg/dl (7-17) H 08/18/21 12:57 Creatinine 1.30 mg/dl (0.52-1.04) H 08/18/21 12:57 Estimated Creat Clear 28 mL/min (50-200) 08/18/21 12:57 - Prophylaxis VTE Prophylaxis Ordered?: Yes Types of VTE Prophylaxis: TEDS Knee High, Pharmacological Pharmacologic Type: Other (XARELTO)
--- NOTE | 2021-08-18 15:36 | PC.NURSE ---
report called to Ana AHUMADA
[2021-08-18 15:51] LABS: Chloride 95 mmol/L (98-107); Sodium 128 mmol/L (136-145)
[2021-08-18 15:54] LABS: Blood Urea Nitrogen 67 mg/dl (7-17); Creatinine Clearance Estimated 34 mL/min (50-200); Estimated Glomerular Filt Rate 47 ml/min (>60); GFR (African American) 57 ML/MIN (>60)
[2021-08-18 15:55] LABS: Calcium 9.6 mg/dl (8.4-10.2); Carbon Dioxide 23 mmol/L (22.0-30.0); Glucose 357 mg/dl (74-100); Glucose,Random 357 mg/dL (74-100)
[2021-08-18 17:13] LABS: Troponin I 0.02 ng/ml (0.00-0.034)
[2021-08-18 17:56] LABS: POC Glucose,Bedside 340 (70-110)
[2021-08-18 17:56] LABS: POC Glucose,Bedside 385 (70-110)
--- NOTE | 2021-08-18 19:02 | PC.NURSE ---
Pt is alert and oriented x4. Lungs are clear, bowel sounds active x4. She has scattered bruising and small scabs to body. Pt says this is normal for her. Insulin gtt started and verified w/Ana Brenner RN. She remains on RA. Teds to BLE. She is paced on telemetry. She has no questions or concerns at this time.
[2021-08-18 19:05] LABS: POC Glucose,Bedside 227 (70-110)
[2021-08-18 19:05] LABS: POC Glucose,Bedside 337 (70-110)
[2021-08-18 19:39] LABS: Chloride 96 mmol/L (98-107); Potassium 5.2 mmoL/L (3.5-5.1); Sodium 129 mmol/L (136-145)
[2021-08-18 19:42] LABS: Blood Urea Nitrogen 64 mg/dl (7-17); Creatinine Clearance Estimated 32 mL/min (50-200); Estimated Glomerular Filt Rate 47 ml/min (>60); GFR (African American) 57 ML/MIN (>60)
[2021-08-18 19:43] LABS: Anion Gap 16.2 mEq/L (5-15); Calcium 9.7 mg/dl (8.4-10.2); Carbon Dioxide 22 mmol/L (22.0-30.0); Glucose 193 mg/dl (74-100)
[2021-08-18 19:59] LABS: Troponin I 0.02 ng/ml (0.00-0.034)
[2021-08-19] VITALS (9 sets, daily range): BP systolic 104–132; BP diastolic 54–70; PULSE 70–72; RESP 15–24; TEMP 36.2–36.9; O2SAT 96–98; BMI 21.8
[2021-08-19 00:07] LABS: POC Glucose,Bedside 232 (70-110)
[2021-08-19 00:13] LABS: Chloride 98 mmol/L (98-107); Sodium 129 mmol/L (136-145)
[2021-08-19 00:16] LABS: Blood Urea Nitrogen 65 mg/dl (7-17); Carbon Dioxide 20 mmol/L (22.0-30.0); Creatinine Clearance Estimated 35 mL/min (50-200); Estimated Glomerular Filt Rate 53 ml/min (>60); GFR (African American) 64 ML/MIN (>60)
[2021-08-19 00:17] LABS: Calcium 9.2 mg/dl (8.4-10.2); Glucose 217 mg/dl (74-100)
--- NOTE | 2021-08-19 03:13 | PC.NURSE ---
MD Corbett notified at beginning of shift that fsbs was 143.Current labs notified including, no acetone detected, Kt level, BUN, creatinine, anion gap. New orders received. DC Insulin gtt. NS 0.9% NS @ 100. Lantus 10 units once. Low intensity SS ACHS. MD Pimentel called for update on pt at 2010. Updated him on pt condition and New orders placed by MD Corbett. Pt has rested well and states she feels better. Pt ate some soup early in shift. No complaints voiced. Pt turned and repositioned. Bed bath given. Purewick in place due to incontinence. Will continue to monitor.
[2021-08-19 05:09] LABS: POC Glucose,Bedside 192 (70-110)
[2021-08-19 06:25] LABS: Basophils # 0.1 K/mm3 (0-0.2); Basophils % 0.5 % (0.1-2.0); Eosinophils # 0.1 K/mm3 (0.0-0.4); Eosinophils % 0.5 % (0.1-12.0); Hematocrit 33.4 % (37.0-47.0); Mean Corpuscular HGB Conc 32.9 g/dL (31.8-35.4); Mean Corpuscular Hemoglobin 26.8 pg (27.0-31.2); Mean Corpuscular Volume 81.4 fl (81-99); Mean Platelet Volume 7.8 fl (7.4-10.4); Monocytes # 0.5 K/mm3 (0.1-1.0); Monocytes % 4.8 % (1.7-9.3); Neutrophils # 7.8 K/mm3 (1.8-7.8); Neutrophils % 75.1 % (37.0-80.0); Platelet Count 169 K/mm3 (142-424); Red Cell Distribution Width 16.5 % (11.5-17.5); White Blood Count 10.4 K/mm3 (4.8-10.8)
[2021-08-19 06:34] LABS: Alanine Aminotransferase 20 U/L (12-78); Albumin Level 3.5 g/dl (3.5-5.0); Albumin/Globulin Ratio 1.2 (1.1-1.8); Alkaline Phosphatase 93 U/L (38-126); Anion Gap 10.2 mEq/L (5-15); Aspartate Amino Transferase 39 U/L (14-36); Bilirubin,Total 0.4 mg/dl (0.2-1.3); Blood Urea Nitrogen 59 mg/dl (7-17); Calcium 9.1 mg/dl (8.4-10.2); Carbon Dioxide 25 mmol/L (22.0-30.0); Chloride 101 mmol/L (98-107); Creatinine Clearance Estimated 37 mL/min (50-200); Estimated Glomerular Filt Rate 53 ml/min (>60); GFR (African American) 64 ML/MIN (>60); Globulin 2.9 g/dL (1.3-3.2); Glucose 172 mg/dl (74-100); Potassium 5.2 mmoL/L (3.5-5.1); Sodium 131 mmol/L (136-145); Total Protein,Serum 6.4 g/dl (6.3-8.2)
--- NOTE | 2021-08-19 09:37 | HMH.PHAINT ---
MEDICATION RECONCILIATION COMPLETED ON PATIENT USING EXTERNAL FILL HISTORY FROM PHARMACY AND LIST FROM PCP OFFICE. -PINO RIBERAD
--- NOTE | 2021-08-19 10:00 | HMH.HP ---
*Admission Date: 08/18/21 *Chief complaint: Weakness *History of present illness: 86-year-old female presented to the emergency department with some generalized weakness. The patient is accompanied by family member who provides history. Apparently the patient has just had some generalized weakness for the last week or so. She has been treated for a urinary tract infection. However she feels like she just has no energy. She is having difficulty getting out of bed. She complains of some fatigue and full body myalgias. Patient is not having any associated headache or change in vision. No focal weakness. No chest pain or difficulty breathing. Denies abdominal pain or vomiting. No diarrhea. No fevers or chills. The emergency room lab work revealed white blood cell count 13.3 Blood glucose 624, Sodium 129, potassium 6.0, UA revealed 1+ leukocytes and 1+ bacteria Insulin gtt started 08/18/21 CXR: IMPRESSION: No acute findings Dictated by: Chalo Oh MD Insulin gtt stopped during night, no acetone detected This morning white blood cell count 10.4 Sodium 131, potassium 5.2, blood glucose is 172 She will be started on Rocephin IV [facility] History I have reviewed the patient's past medical history: Yes Medical History: Reports:: Arrhythmia, Atrial Fibrillation, Cardiomyopathy, Congestive Heart Failure, Coronary Artery Disease, Diabetes Mellitus Type 2, Gastroesophageal Reflux Disease(GERD), Hyperlipidemia, Hypertension, Internal Pacemaker, Peripheral Artery Disease Denies:: Cancer, Diabetes Mellitus Type 1, MRSA, Seizures *Have you ever received a pneumonia vaccine?: Yes *Have you received a flu vaccine this season?: Yes Other Medical History: Reports: Anemia, Arthritis, Cataracts, Other. Denies: Blood Transfusion Reaction Laterality Cases: Bilateral: Tonsillectomy Other Surgeries: Yes: Appendectomy, Cardiac Catheterization (01/28/18 1 stent), Cholecystectomy, Colonoscopy, EGD, Hysterectomy-Total, Pacemaker, Other Amputation: No Fractures: No - *Social History Smoking Status: Never smoker Alcohol Intake: never Alcohol Intake Frequency:: other *Occupational Status:: retired Housing: house Household Members: children *Travel in the last 8 weeks: None Family Hx:: Cancer Review of Systems - Review of Systems Review of systems:: pertinent systems reviewed and negative unless documented below - Constitutional Reports fatigue, Reports weakness, Denies increased appetite - Eyes Denies itchy eyes - ENT Denies change in voice, Denies sore throat - *Cardiovascular Denies chest pain, Denies chest pain with activity, Denies shortness of breath - *Respiratory Denies change in phlegm color, Denies shortness of breath - *Gastrointestinal Denies abdominal pain, Denies change in bowel habits - *Musculoskeletal Reports abnormal walking, Reports muscle weakness - Integumentary/Breasts Denies change in hair, Denies yellowing of the skin - *Neurologic Reports weakness, Denies abnormal speech, Denies headache(s) - Psychiatric Denies anxiety, Denies difficulty concentrating - Endocrine Denies heat intolerance, Denies increased thirst - Hematologic/Lymphatic Denies easy bruising, Denies enlarged lymph nodes - Allergic/Immunologic Denies itchy eyes, Denies tongue swelling Meds Home Medications Medication Instructions Recorded Confirmed Type aspirin 81 mg tablet,delayed 81 mg PO HS 10/05/17 08/18/21 History release atorvastatin 10 mg tablet 10 mg PO HS 10/05/17 08/18/21 History sertraline 100 mg tablet 50 mg PO DAILY 10/05/17 08/18/21 History Mirabegron [Myrbetriq] 25 mg PO HS 11/18/20 08/18/21 History Mirtazapine 7.5 mg PO HS 11/18/20 08/18/21 History Digoxin [Digoxin 0.125mg Tablet] 125 mcg PO DAILY 02/24/21 08/18/21 History Rivaroxaban [Xarelto 15mg tablet] 15 mg PO QPMWITHMEAL 02/24/21 08/18/21 History verapamil 180 mg 24 hr 180 mg PO DAILY #90 cap 07/17/21 08/18/21 Rx capsule,ext
--- NOTE | 2021-08-19 11:07 | HMH.PTEV ---
Physical Therapy Evaluation Rehab PT IP Evaluation Start: 08/19/21 09:40 Freq: ONCE Status: Active Protocol: Document 08/19/21 10:51 PWNEELAM (Rec: 08/19/21 11:06 PWNEELAM [id number]) Subjective/History History History This is the initial evaluation for Kareen Mallory. Pt is an 86 y /o female admitted to [facility] for progressive generalized weakness and possibility for DKA. Pt was supine in bed upon arrival. - note done by Yajaira Quinn, SPT Subjective Subjective Pt reports that she was living at home in a house with her son before this current admission to [facility]. Pt reports that her daughter watches her during the day and her son watches her during the evenings. She states she used a walker to get around small distances. Pt reports last fall occured in April 2021 but has not fallen since. Pt states her family members cook , clean, and help her get to the bathroom most days. Rehab PT IP Eval Objective Appearance Patient Behavior Appropriate,Cooperative Patient Orientation Situation Difficulty following instructions none Speech Pattern Clear,Appropriate,Coherent Ambulation Patient Able to Ambulate No Balance Ability to Arise Able, uses arms to help Sitting Balance Steady, safe Standing Balance Narrow stance w/o support Dynamic Sitting Balance Ability Fair Dynamic Standing Balance Ability Poor Transfers Bed Transfer Ability Moderate x 2 (50% assist) Sit to Stand Bed Transfer Ability Moderate x 2 (50% assist) Rehab PT IP prob,goals,plan Problems Date of Evaluation: 08/19/21 PT IP Problems Bed Mobility,Transfers,Gait, Balance,Self care,Safety Rehab Potential Rehab Potential Fair Equipment Needs Assistive Devices Rolling / Wheeled Walker Plan PT Intervention Plan Bed Mobility,Transfers,Gait, Balance,Self care,Safety, Therapeutic Exercise PT Plan Frequency BID Duration LOS Discharge Goals Bed Transfer Ability Moderate x 2 (50% assist) Sit to Stand Chair Tra
--- NOTE | 2021-08-19 11:27 | HMH.OTEV ---
OT Inpatient Evaluation Rehab OT IP Evaluation Start: 08/19/21 09:40 Freq: ONCE Status: Complete Protocol: Document 08/19/21 11:20 [facility] (Rec: 08/19/21 11:27 [facility] [id number]) Rehab OT IP Assessment Subjective History Pt oriented x 2 on arrival. Pt was admitted via ED on via ED due to hyperkalemia (Acute kidney injury). Pt has a past medical history of Arrhythmia, Atrial Fibrillation, Cardiomyopathy, Congestive Heart Failure, Coronary Artery Disease, Diabetes Mellitus Type 2, Gastroesophageal Reflux Disease(GERD), Hyperlipidemia, Hypertension, Internal Pacemaker, Peripheral Artery Disease. Pt reports prior to being in the hospital she lived with her son. Her daughter would assist her all day every day and her son would assist her at night. She required assistance with lower body dressing and bathing. Pt also was dependent upon family to complete cleaning and cooking (IADLS). Pt did use walker in order to do short transfers. Subjective I want to go back home. Pt required mod assist x 2 to complete bed mobility to go from supine to sitting at eob. Pt stood from eob with mod assist x 2 with significant posterior lean. Pt required mod assist x 2 to complete bed mobility and go from sitting to supine. Objective Patient Orientation Person,Birthday Upper Extremity Gross ROM Min Limitation <25% Shoulder ROM Limitations Muscle Weakness Elbow ROM Limitations Muscle Weakness Wrist Limitations of Range of Motion Muscle Weakness Bed Mobility bed mobility-scooting,bed mobility - supine/sit,bed mobility - rolling Assist Level Moderate x 2 (50% assist) Rehab OT IP prob,goals,plan Problems Date of Evaluation:
--- NOTE | 2021-08-19 11:54 | SW/DCPLANNER ---
Addendum entered by Marycruz Clancy 08/21/21 11:09: Romelia with [facility] has stated that services will begin tomorrow for this patient. Addendum entered by Marycruz Clancy 08/21/21 09:31: This patient will discharge home today. I will set patient up with home health services thru [facility]. I will follow up w/ Romelia from [facility] once patient information is reviewed. Original Note: I spoke with this patient and her daughter regarding discharge plans. Daughter stated that someone is with patient /7. I spoke with patient/family regarding PT/OT evaluation and recommendation for short term placement once medically stable for discharge. Daughter stated they would prefer to return home with 24/7 care and home health services. I will continue to follow up with this patient regarding discharge plans. Patient was previously established with [facility]. Discharge date is unknown at this time.
[2021-08-19 12:18] LABS: POC Glucose,Bedside 247 (70-110)
[2021-08-19 17:27] LABS: POC Glucose,Bedside 333 (70-110)
[2021-08-19 19:12] LABS: Chloride 96 mmol/L (98-107); Sodium 128 mmol/L (136-145)
[2021-08-19 19:16] LABS: Blood Urea Nitrogen 54 mg/dl (7-17); Calcium 8.9 mg/dl (8.4-10.2); Carbon Dioxide 21 mmol/L (22.0-30.0); Creatinine Clearance Estimated 34 mL/min (50-200); Estimated Glomerular Filt Rate 47 ml/min (>60); GFR (African American) 57 ML/MIN (>60); Glucose 351 mg/dl (74-100)
[2021-08-19 20:34] LABS: POC Glucose,Bedside 341 (70-110)
[2021-08-20] VITALS (7 sets, daily range): BP systolic 101–126; BP diastolic 53–81; PULSE 70–77; RESP 14–18; TEMP 36.7–36.9; O2SAT 98–100; BMI 21.8; BMI 21.9
[2021-08-20 07:20] LABS: Basophils % 0.4 % (0.1-2.0); Eosinophils # 0.1 K/mm3 (0.0-0.4); Eosinophils % 1.1 % (0.1-12.0); Hematocrit 34.4 % (37.0-47.0); Hemoglobin 11.1 g/dL (12.2-16.2); Lymphocytes # 2.4 K/mm3 (0.7-4.5); Lymphocytes % 23.9 % (10-50); Mean Corpuscular HGB Conc 32.3 g/dL (31.8-35.4); Mean Corpuscular Hemoglobin 26.4 pg (27.0-31.2); Mean Corpuscular Volume 81.6 fl (81-99); Mean Platelet Volume 8.4 fl (7.4-10.4); Monocytes # 0.5 K/mm3 (0.1-1.0); Monocytes % 5.2 % (1.7-9.3); Neutrophils % 69.4 % (37.0-80.0); Platelet Count 153 K/mm3 (142-424); Red Blood Count 4.21 M/mm3 (4.20-5.40); Red Cell Distribution Width 16.2 % (11.5-17.5); White Blood Count 10.1 K/mm3 (4.8-10.8)
--- NOTE | 2021-08-20 09:37 | HMH.CNCARD ---
History of Present Illness Consult date: 08/20/21 Requesting physician: Marcel Hylton Consult reason: known to you Chief complaint: Weakness, Hyperkalemia, UTI Additional Medical History:: 1. CAD A. [facility], 09/23/2017, [place] to Circ. Hyperdynamic EF. Normal LVEDP. Mild to moderate CAD of remaining vessels. B. [facility], 01/2018, ANGIOGRAPHIC RESULTS: 1. The left main artery has a distal smooth 10% stenosis 2. The left anterior descending artery has proximal 20% stenosis followed by 50% stenoses after the first septal twister frame tender and first diagonal artery. This extends throughout most of the mid segment. The first septal twister frame tender is a large vessel and has an ostial 80-90% stenosis while the first diagonal artery is 2 mm in diameter and has an ostial 80-90% stenosis. The second diagonal artery is 2 mm in diameter and has an ostial 90% stenosis 3. The circumflex artery is a dominant vessel and has proximal 30 and 40% stenoses followed by mid vessel stent which is widely patent with excellent distal and proximal transitioning. 4. The right coronary artery is a codominant vessel and has proximal 10-20% stenoses with mild diffuse vascular ectasia. The posterior descending artery has proximal 30% and mid vessel 20% stenoses 5. The BARTON ventriculogram reveals normal 65% 6. The left ventricular end-diastolic pressure 10 mmHg\ 7. The suprarenal and infrarenal abdominal aorta is mildly calcified with no stenosis greater than 10%. The mesenteric and renal arteries are normal 8. The bilateral common internal and external iliac arteries are normal. The bilateral common femoral arteries are normal. The bilateral profunda femoris arteries are normal. The bilateral superficial femoral arteries have mild 10% stenoses and bilateral 20% stenoses in the proximal popliteal artery. 9. The right distal vessels have three-vessel runoff 10. The left anterior posterior tibialis arteries are patent while the peroneal artery appears to be physiologically occluded in its proximal third IMPRESSION: 1. Coronary artery disease as described above 2. Normal ejection fraction 3. Normal left ventricular end-diastolic pressure 4. Peripheral artery disease as described above PLAN: 1. At this time I recommend medical management for the LAD disease and diagonal disease. 2. Aggressive factor modification LDL less than 55 3. Standard therapy for ischemic heart disease 4. Medical management for peripheral artery disease Dictated By:Elvin Keith MD 2. HTN A. Echo, 04/2021, 1. Biatrial enlargement, normal left ventricular size, mild concentric left ventricular hypertrophy, visually estimated ejection fraction 55% with no regional wall motion abnormality, diastolic parameters are inconclusive. 2. Moderately enlarged right ventricle with normal contractility. 3. Mild mitral and moderate tricuspid regurgitation, calculated right ventricular systolic pressure 37 mmHg. 4. No significant pericardial effusion noted, inferior vena cava is mildly dilated without significant inspiratory collapse. Electronically signed by : Luis Wylie, 04/24/2021 13:59:09 3. IDDM 4. History of CVA 5. Hypothyroidism, on replacement 6. UTI with Hyperkalemia and DKA, 08/19/2021 7. History of syncope with bradycardia, 09/2017 A. [place] dual-chamber pacemaker implanted 09/28/2017 8. Hyperlipidemia A. LDL 30, 04/2021 9. GERD 10. PAF, 11/2020 A. CHADS-VASC score of 5 B. Xarelto therapy C. Cardiomyopathy with EF of 30-40% by echo which improved to 55% with maintenance of NSR. History of present illness: 86-year-old female presented to the emergency department with some generalized weakness. The patient is accompanied by family member who provides history. Apparently the patient has just had some generalized weakness for the last week or so. She has been treated for a urinary tract infection. However she feels l
--- NOTE | 2021-08-20 09:41 | P.PN_ITS ---
Internal Medicine - PN: Subj *Date: 08/20/21 *Time: 08:40 Interval history: pt laying in bed states doing better Exam Vital signs and Labs for Last 24 Hours: Temp Pulse Resp BP Pulse Ox 98.1 F 70 16 126/81 98 08/20/21 08:00 08/20/21 08:15 08/20/21 08:00 08/20/21 08:00 08/20/21 08:00 Laboratory Results - last 24 hr 08/19/21 11:41: POC Glucose 247 H 08/19/21 17:17: POC Glucose 333 H* 08/19/21 18:15: Sodium 128 L, Potassium 5.0, Chloride 96 L, Carbon Dioxide 21 L, Anion Gap 16.0 H, BUN 54 H, Creatinine 1.10 H, Estimated Creat Clear 34, Estimated GFR 47 L, Est GFR ( Amer) 57 L, Glucose 351 H D, Calcium 8.9 08/19/21 20:26: POC Glucose 341 H* 08/20/21 06:53: WBC 10.1, RBC 4.21, Hgb 11.1 L, Hct 34.4 L, MCV 81.6, MCH 26.4 L , MCHC 32.3, RDW 16.2, Plt Count 153, MPV 8.4, Neut % (Auto) 69.4, Lymph % (Auto) 23.9, [place] % (Auto) 5.2, Eos % (Auto) 1.1, Baso % (Auto) 0.4, Neut # (Auto) 7.0, Lymph # (Auto) 2.4, [place] # (Auto) 0.5, Eos # (Auto) 0.1, Baso # (Auto) 0.0 I & O for Last 24 hours: Intake & Output 08/17/21 08/18/21 08/19/21 08/20/21 11:59 11:59 11:59 11:59 Intake Total 480 / 480 480 / 480 Output Total 600 / 600 2049 Balance -120 / -120 -1570 / -1570 Weight 123 lb 3 oz 123 lb 2 oz Microbiology Reports for the Last 24 Hours: Microbiology 08/18/21 14:04 Urine,Clean Catch Urine Culture - Preliminary NO GROWTH AFTER 24 HOURS - Constitutional no acute distress - *Routine HEENT Exam Head: Present: normocephalic Eye: Present: PERRL ENT: Present: mucous membranes moist - *Routine Neck Exam Present: supple. Absent: lymphadenopathy - *Routine Respiratory Exam Present: decreased breath sounds, rhonchi - *Routine Cardiovascular Exam Present: RRR, murmur - *Routine Abdominal Exam Present: soft, normoactive bowel sounds. Absent: tenderness - *Routine Extremities Exam Present: normal capillary refill. Absent: cyanosis, clubbing, edema - *Routine Skin Exam Present: warm. Absent: rash - *Routine Neurological Exam Present: alert, oriented X3 Assessment and Plan (1) DKA (diabetic ketoacidosis) Status: Acute Qualifiers: Qualified Code(s): E10.10 - Type 1 diabetes mellitus with ketoacidosis without coma Category: Medical Code(s): E11.10 - Type 2 diabetes mellitus with ketoacidosis without coma (2) Hyperkalemia Status: Acute Category: Medical Code(s): E87.5 - Hyperkalemia (3) Acute renal insufficiency Status: Acute Category: Medical Code(s): N28.9 - Disorder of kidney and ureter, unspecified (4) Lactic acidosis Status: Acute Category: Medical Code(s): E87.2 - Acidosis (5) Urinary tract infection Status: Acute Qualifiers: Qualified Code(s): N30.00 - Acute cystitis without hematuria Category: Medical Code(s): N39.0 - Urinary tract infection, site not specified - Assessment and plan all Dx Assessment and Plan for all problems:: rounded with dr aviles all orders per dr aviles add 70/30 insulin and have nursing educate pt cardiology consult- due to elevated bun
[2021-08-20 09:46] LABS: Anion Gap 13.2 mEq/L (5-15); Blood Urea Nitrogen 53 mg/dl (7-17); Calcium 8.8 mg/dl (8.4-10.2); Carbon Dioxide 22 mmol/L (22.0-30.0); Chloride 100 mmol/L (98-107); Creatinine Clearance Estimated 34 mL/min (50-200); Estimated Glomerular Filt Rate 47 ml/min (>60); GFR (African American) 57 ML/MIN (>60); Glucose 271 mg/dl (74-100); Potassium 5.2 mmoL/L (3.5-5.1); Sodium 130 mmol/L (136-145)
[2021-08-20 11:05] LABS: POC Glucose,Bedside 332 (70-110)
[2021-08-21 04:00] VITALS: BP 108/64; PULSE 71; TEMP 36.7; O2SAT 99
--- NOTE | 2021-08-21 04:22 | PC.NURSE ---
PATIENT HAS BEEN PLEASANT THIS SHIFT. NO ACUTE CHANGES. DENIES S/S OF HYPERGLYCEMIA. STAGE 2 PRESSURE AREA ON LEFT BUTTOCKS UNCHANGED SINCE PREVIOUS ASSESSMENT. MEASURES APPROXIMATELY 20MM IN DIAMETER. NO DRAINAGE NOTED. BARRIER CREAM IN PLACE. PT TURNED Q2H OR AT REQUEST IF MORE FREQUENT. HOURLY CHECKS FOR VOIDS/BOWEL MOVEMENT SINCE PT IS INCONTINENT. PT REPORTS NO PAIN. PT DECLINED TO HAVE DRESSING ON THE IV IN HER LEFT A/C CHANGED STATING THAT SHE DID NOT WANT TO HAVE TO BE STUCK AGAIN IF IV CAME OUT. IV REMAINS PATENT BUT DOES HAVE SOME BLOOD PRESENT UNDER DRESSING. CALL LIGHT IN REACH. PATIENT IS CLEAN AND DRY AND TURNED TO LEFT HIP.
[2021-08-21 06:53] LABS: POC Glucose,Bedside 389 (70-110)
[2021-08-21 06:53] LABS: POC Glucose,Bedside 208 (70-110)
[2021-08-21 06:53] LABS: POC Glucose,Bedside 436 (70-110)
[2021-08-21 07:46] LABS: Basophils % 0.4 % (0.1-2.0); Eosinophils # 0.1 K/mm3 (0.0-0.4); Eosinophils % 1.6 % (0.1-12.0); Hematocrit 33.4 % (37.0-47.0); Hemoglobin 10.6 g/dL (12.2-16.2); Lymphocytes # 1.9 K/mm3 (0.7-4.5); Lymphocytes % 21.5 % (10-50); Mean Corpuscular HGB Conc 31.9 g/dL (31.8-35.4); Mean Corpuscular Hemoglobin 26.6 pg (27.0-31.2); Mean Corpuscular Volume 83.6 fl (81-99); Mean Platelet Volume 7.8 fl (7.4-10.4); Monocytes # 0.4 K/mm3 (0.1-1.0); Monocytes % 4.5 % (1.7-9.3); Neutrophils # 6.4 K/mm3 (1.8-7.8); Neutrophils % 71.9 % (37.0-80.0); Platelet Count 160 K/mm3 (142-424); Red Blood Count 3.99 M/mm3 (4.20-5.40); Red Cell Distribution Width 16.5 % (11.5-17.5); White Blood Count 8.8 K/mm3 (4.8-10.8)
[2021-08-21 08:15] LABS: Anion Gap 12.6 mEq/L (5-15); Blood Urea Nitrogen 37 mg/dl (7-17); Calcium 8.7 mg/dl (8.4-10.2); Carbon Dioxide 22 mmol/L (22.0-30.0); Chloride 105 mmol/L (98-107); Creatinine Clearance Estimated 37 mL/min (50-200); Estimated Glomerular Filt Rate 60 ml/min (>60); GFR (African American) 72 ML/MIN (>60); Glucose 181 mg/dl (74-100); Potassium 4.6 mmoL/L (3.5-5.1); Sodium 135 mmol/L (136-145)
--- NOTE | 2021-08-21 08:25 | PC.NURSE ---
Pt's daughter called to check on her status. States she will be up here later to visit.
[2021-08-21 08:30] VITALS: BP 117/62; PULSE 69; RESP 17; TEMP 36.5; O2SAT 97
--- NOTE | 2021-08-21 08:53 | PC.NURSE ---
Physical Therapy at [facility] to see pt.
[2021-08-21 09:00] VITALS: O2SAT 97
[2021-08-21 09:13] VITALS: PULSE 69
--- NOTE | 2021-08-21 09:13 | HMH.DCSUM ---
General - General Admission date:: 08/18/21 Discharge date: 08/21/21 HPI HPI: 86-year-old female presented to the emergency department with some generalized weakness. The patient is accompanied by family member who provides history. Apparently the patient has just had some generalized weakness for the last week or so. She has been treated for a urinary tract infection. However she feels like she just has no energy. She is having difficulty getting out of bed. She complains of some fatigue and full body myalgias. Patient is not having any associated headache or change in vision. No focal weakness. No chest pain or difficulty breathing. Denies abdominal pain or vomiting. No diarrhea. No fevers or chills. The emergency room lab work revealed white blood cell count 13.3 Blood glucose 624, Sodium 129, potassium 6.0, UA revealed 1+ leukocytes and 1+ bacteria Insulin gtt started 08/18/21 CXR: IMPRESSION: No acute findings Dictated by: Chalo Oh MD Insulin gtt stopped during night, no acetone detected This morning white blood cell count 10.4 Sodium 131, potassium 5.2, blood glucose is 172 She will be started on Rocephin IV Hospital Course Hospital Course: 86-year-old female presented to the emergency department with some generalized weakness. The patient is accompanied by family member who provides history. Apparently the patient has just had some generalized weakness for the last week or so. She has been treated for a urinary tract infection. However she feels like she just has no energy. She is having difficulty getting out of bed. She complains of some fatigue and full body myalgias. Patient is not having any associated headache or change in vision. No focal weakness. No chest pain or difficulty breathing. Denies abdominal pain or vomiting. No diarrhea. No fevers or chills. The emergency room lab work revealed white blood cell count 13.3 Blood glucose 624, Sodium 129, potassium 6.0, UA revealed 1+ leukocytes and 1+ bacteria Insulin gtt started 08/18/21 CXR: IMPRESSION: No acute findings Dictated by: Chalo Oh MD Insulin gtt stopped during night night of admission, no acetone detected she was restarted on her home regimen for her diabetes and insulin 70/30 was added she was educated on proper use. Blood sugar has decreased she denies any nausea/vomiting. Cardiology has seen and recommends: 1. Weakness related to UTI/DKA with associated hyperkalemia noted on admission labs. Potassium this AM has returned to normal. Patient is being treated for UTI. We will reduce her spironolactone from 50 mg twice daily to 25 mg once daily. She will need a BMP one week after discharge home. 2. Coronary artery disease, clinically stable 3. Paced rhythm with pacemaker download last month showing battery life of 5-7 years. 4. Peripheral arterial disease, continue medical therapy 5. Hypertension, controlled 6. Hyperlipidemia, continue statin therapy 7. Mild hyponatremia likely secondary to dilution effect 8. History of CHF secondary to cardiomyopathy related to atrial fibrillation. Most recent echocardiogram in April of this year showed EF of 55%. Troponins are normal this admission and chest x-ray shows no evidence of congestive heart failure. 9. History of paroxysmal atrial fibrillation, currently AV pacing and patient is on Xarelto therapy. Continue bisoprolol, verapamil and digoxin therapy. 86-year-old female patient sitting up in bed tolerating breast fist without any difficulties. She reports she feels good during the night blood glucose this morning is 181 she was educated on the use of insulin 70/30 pens and family will be educated as well upon discharge. Discharge home was discussed with patient she is anxious to return home and reports she has multiple family members to care for her at home. PLAN: 1. We will discharge home today 2. Received instru
[2021-08-22 15:36] LABS: POC Glucose,Bedside 265 (70-110)
== END 2021-08-21 11:40 | disposition home or self-care (01) ==
LOC: ER 14:56 → 2ND 15:24 → OB 08-20 16:08
PROVIDERS: Nurse Practitioner Family; Admitting Provider Family Medicine; Emergency Provider Emergency Medicine; PCP Emergency Medicine; Visit Provider Family Medicine
DX: E11.10 Type 2 diabetes mellitus with ketoacidosis without coma (principal); Z20.822 Contact with and (suspected) exposure to COVID-19; N39.0 Urinary tract infection, site not specified; E87.5 Hyperkalemia; I48.0 Paroxysmal atrial fibrillation; Z79.01 Long term (current) use of anticoagulants; I42.9 Cardiomyopathy, unspecified; I50.9 Heart failure, unspecified; I11.0 Hypertensive heart disease with heart failure; Z95.5 Presence of coronary angioplasty implant and graft; Z79.4 Long term (current) use of insulin
CPT/HCPCS: G0378; 36415; 71045; 80048; 80053; 80162; 81001; 82009; 82803; 82947; 82962; 83690; 84443; 84484; 85025; 87086; 93005; 96365; 96367; 96375; 97110; 97161; 97166; 97530; 97535; 99284; C9803; U0003; U0005

== ENCOUNTER 2021-08-25 22:15 | Observation (INO) | payer MEDICARE, MEDICAID, SELFPAY ==
[2021-08-25 22:16] VITALS: BP 126/59; PULSE 71; RESP 18; TEMP 36.7; O2SAT 99; BMI 20.9
[2021-08-25 22:39] LABS: Basophils # 0.1 K/mm3 (0-0.2); Basophils % 0.6 % (0.1-2.0); Eosinophils # 0.2 K/mm3 (0.0-0.4); Eosinophils % 1.4 % (0.1-12.0); Hematocrit 35.4 % (37.0-47.0); Hemoglobin 11.5 g/dL (12.2-16.2); Lymphocytes # 2.4 K/mm3 (0.7-4.5); Lymphocytes % 21.6 % (10-50); Mean Corpuscular HGB Conc 32.3 g/dL (31.8-35.4); Mean Corpuscular Hemoglobin 26.5 pg (27.0-31.2); Mean Corpuscular Volume 81.9 fl (81-99); Mean Platelet Volume 8.1 fl (7.4-10.4); Monocytes # 0.5 K/mm3 (0.1-1.0); Monocytes % 4.1 % (1.7-9.3); Neutrophils % 72.3 % (37.0-80.0); Platelet Count 250 K/mm3 (142-424); Red Blood Count 4.32 M/mm3 (4.20-5.40); Red Cell Distribution Width 16.8 % (11.5-17.5); White Blood Count 11.1 K/mm3 (4.8-10.8)
[2021-08-25 22:48] LABS: Chloride 92 mmol/L (98-107); Sodium 127 mmol/L (136-145)
[2021-08-25 22:51] LABS: Alanine Aminotransferase 26 U/L (12-78); Alkaline Phosphatase 144 U/L (38-126); Anion Gap 18.2 mEq/L (5-15); Aspartate Amino Transferase 47 U/L (14-36); Bilirubin,Total 0.3 mg/dl (0.2-1.3); Blood Urea Nitrogen 49 mg/dl (7-17); Carbon Dioxide 23 mmol/L (22.0-30.0); Creatinine Clearance Estimated 24 mL/min (50-200); Estimated Glomerular Filt Rate 33 ml/min (>60); GFR (African American) 40 ML/MIN (>60)
[2021-08-25 22:52] LABS: Albumin Level 4.3 g/dl (3.5-5.0); Albumin/Globulin Ratio 1.4 (1.1-1.8); Calcium 9.9 mg/dl (8.4-10.2); Glucose 369 mg/dl (74-100); Total Protein,Serum 7.3 g/dl (6.3-8.2)
[2021-08-25 22:54] LABS: Acetone, Serum (Rapid) None Detected (None Detect)
[2021-08-25 22:55] LABS: Potassium 6.2 mmoL/L (3.5-5.1)
--- NOTE | 2021-08-25 22:56 | HMH.EDGENADL ---
ED Disposition Clinical Impression: Acute kidney injury, Hyperglycemia due to diabetes mellitus, Hyperglycemia without ketosis, Hyperkalemia Atrial fibrillation Qualifiers: Atrial fibrillation type: unspecified chronic Qualified Code(s): I48.20 - Chronic atrial fibrillation, unspecified Disposition: Admitted as Observation Condition on Discharge: Good - Critical Care Critical Care Time: No Attestation: On 08/25/21, the high probability of a clinically significant, sudden or life threatening deterioration of the following system(s) required my full and direct attention, intervention and personal management. The time I documented below is in addition to time spent performing reported procedures but includes the following listed in this critical care notation. Medical Decision Making - Medical Records Medical records reviewed: Yes: I reviewed the patient's medical records. - Thomas Inquiry Pt receiving controlled substance: No Vital Signs: 08/25/21 22:16 08/25/21 23:00 Temperature 98.0 F Temperature Source Oral Pulse Rate 70 Pulse Rate [Right] 71 Respiratory Rate 18 Blood Pressure 126/61 Blood Pressure [Right Arm] 126/59 L Blood Pressure Mean [Right Arm] 81 02 Sat by Pulse Oximetry 99 98 Oxygen Delivery Method Room Air - Lab Data Lab results reviewed: Yes: I reviewed the patient's lab results. Lab Results 08/25/21 22:30: WBC 11.1 H, RBC 4.32, Hgb 11.5 L, Hct 35.4 L, MCV 81.9, MCH 26.5 L, MCHC 32.3, RDW 16.8, Plt Count 250, MPV 8.1, Neut % (Auto) 72.3, Lymph % (Auto) 21.6, [place] % (Auto) 4.1, Eos % (Auto) 1.4, Baso % (Auto) 0.6, Neut # (Auto) 8.0 H, Lymph # (Auto) 2.4, [place] # (Auto) 0.5, Eos # (Auto) 0.2, Baso # (Auto) 0.1, ESR 75 H 08/25/21 22:30: Sodium 127 L, Potassium 6.2 H*, Chloride 92 L, Carbon Dioxide 23, Anion Gap 18.2 H, BUN 49 H, Creatinine 1.50 H, Estimated Creat Clear 24, Estimated GFR 33 L, Est GFR ( Amer) 40 L, Glucose 369 H, Calcium 9.9, Total Bilirubin 0.3, AST 47 H, ALT 26, Alkaline Phosphatase 144 H, C-Reactive Protein 2.8, Total Protein 7.3, Albumin 4.3, Globulin 3.0, Albumin/Globulin Ratio 1.4 08/25/21 22:30: Acetone Level None detected 08/25/21 22:58: Urine Color Yellow, Urine Appearance Clear, Urine pH 6.0, Ur Specific [place] 1.015, Urine Protein Negative, Urine Glucose (UA) 2+, Urine Ketones Negative, Urine Blood 2+, Urine Nitrate Negative, Urine Bilirubin Negative, Urine Urobilinogen 0.2, Ur Leukocyte Esterase Trace, Urine RBC 3-5, Urine WBC 3-5, Urine Bacteria 1+, Urine Mucus 1+ 08/25/21 23:00: Lactate 1.9 08/25/21 23:00: Potassium 5.7 H Result diagrams: 08/25/21 22:30 08/25/21 23:00 Orders (Tests/Meds): ED MEDICATIONS Generic Name Dose Route Start Last Admin Trade Name Rufino PRN Reason Stop Dose Admin Sodium Chloride 1,000 mls @ 999 mls/hr 08/25/21 22:45 08/25/21 22:33 Sod Chlor 0.9% 1000ml Bag IV 08/25/21 23:45 999 mls/hr .[id number] VALENTINA Administration ORDERS Category Date Time Status DIG [Digoxin] Stat Lab 08/25/21 23:00 Received Rapid PCR Covid and Flu A/B Stat Lab 08/25/21 23:56 Received Blood Culture Stat Micro 08/25/21 23:00 Received Medical Decision Narrative: will admit for ivf and adjust meds and treat hyperkalemia General Adult HPI - General Chief complaint: Hyper/Hypoglycemia Stated complaint: sugar high Time Seen by Provider: 08/25/21 22:56 Mode of Arrival: Ambulatory Source of Information: Patient, Medical Record Limitations: No Limitations Description of Symptoms (Recalled from ER Triage Doc. by RN): pt c/o high blood sugar and blurry vision that started today - History of Present Illness HPI narrative: elevated glu and not feeling well - no fever or chest pain Onset (ago): hour(s) Severity: moderate Associated symptoms: weakness Treatments prior to arrival: none - Related Data Home Medications Medication Instructions Recorded Confirmed aspirin 81 mg tablet,delayed 81 mg PO HS 10/05/17 08/25/21 rel
[2021-08-25 22:57] LABS: C-Reactive Protein 2.8 mg/L (0-4)
--- NOTE | 2021-08-25 22:57 | PC.NURSE ---
notified stefan of critical potassium 6.2
[2021-08-25 23:00] VITALS: BP 126/61; PULSE 70; O2SAT 98
[2021-08-25 23:04] LABS: Microscopic, Urine URINE MICROSCOPIC (MICROSCOPIC)
[2021-08-25 23:09] LABS: Appearance,Urine CLEAR (Clear); Bilirubin,Urine Negative (Negative); Blood, Urine 2+ (Negative); Color,Urine YELLOW (Yellow); Glucose,Urine (UA) 2+ (Negative); Ketones,Urine Negative (Negative); Leukocyte Esterase,Urine TRACE (Negative); Nitrate,Urine Negative (Negative); Protein,Urine Negative (Negative); Specific Gravity, Urine 1.015 (1.005-1.030); Urobilinogen,Urine 0.2 EU/dl (0.2)
[2021-08-25 23:10] LABS: Erythrocyte Sedimentation Rate 75 mm/hr (0-30)
[2021-08-25 23:20] LABS: Potassium 5.7 mmoL/L (3.5-5.1)
[2021-08-25 23:24] LABS: Lactic Acid 1.9 mmol/L (0.7-2.1)
[2021-08-25 23:25] LABS: Bacteria,Urine 1+ /lpf; Mucus,Urine 1+ /lpf
[2021-08-25 23:30] VITALS: BP 119/79; PULSE 70; O2SAT 97
--- NOTE | 2021-08-25 23:55 | PC.NURSE ---
House notified of need for bed assignment at this time
[2021-08-26] VITALS: BP 112/59; PULSE 70; O2SAT 97
[2021-08-26 00:01] VITALS: BMI 20.8
[2021-08-26 00:01] LABS: Coronavirus 19, PCR Not Detected (NotDetected); Influenza A, PCR Not Detected (NotDetected); Influenza B, PCR Not Detected (NotDetected)
--- NOTE | 2021-08-26 00:26 | ECG_ITS ---
APPROVED REPORT Exam: Resting ECG HR:70 bpm ECG Measurements Heart Rate 70 AXES QRSd 84 QRS 19 QT 338 T -80 QTc 365 Conclusion Electronic atrial pacemaker Abnormal ECG Electronically signed by : Alexy Rivera MD 08/26/2021 20:03:28
[2021-08-26 00:31] VITALS: BP 117/60; PULSE 63; O2SAT 100
[2021-08-26 00:56] VITALS: BP 117/60; PULSE 63; RESP 18; TEMP 36.7; O2SAT 100
--- NOTE | 2021-08-26 01:11 | PC.NURSE ---
pt arrived to floor via wheelchair
[2021-08-26 01:27] VITALS: PULSE 70
[2021-08-26 04:00] VITALS: PULSE 70
[2021-08-26 07:21] LABS: Eosinophils # 0.1 K/mm3 (0.0-0.4); Red Cell Distribution Width 16.8 % (11.5-17.5)
--- NOTE | 2021-08-26 07:35 | HMH.PHAVTE ---
[facility] Pharmacy VTE Monitoring - Patient Demographics Admission date: 08/25/21 Report Date: 08/26/21 Time: 07:35 Allergies/Adverse Reactions: Patient Allergies No Known Allergies Allergy (Verified 08/08/21 13:06) Height: 1.6 m Weight: 53.3 kg Patient Problems: Current Active Problems Acute kidney injury (Acute) Hyperglycemia without ketosis (Acute) Hyperkalemia (Acute) Hyperglycemia due to diabetes mellitus (Acute) Atrial fibrillation (Chronic) - VTE Risk Labs: VTE Related Lab Results Hgb 11.5 g/dL (12.2-16.2) L 08/25/21 22:30 Hct 35.4 % (37.0-47.0) L 08/25/21 22:30 Plt Count 250 K/mm3 (142-424) 08/25/21 22:30 BUN 49 mg/dl (7-17) H 08/25/21 22:30 Creatinine 1.50 mg/dl (0.52-1.04) H 08/25/21 22:30 Estimated Creat Clear 24 mL/min (50-200) 08/25/21 22:30 Was VTE Risk Assessment Performed: No VTE Score: 1 VTE Risk Level: Very Low Risk Clinical Trial Participant: No - Prophylaxis VTE Prophylaxis Ordered?: Yes Types of VTE Prophylaxis: TEDS Knee High, Pharmacological (XARELTO)
[2021-08-26 07:38] LABS: Anion Gap 8.3 mEq/L (5-15); Blood Urea Nitrogen 37 mg/dl (7-17); Calcium 8.4 mg/dl (8.4-10.2); Carbon Dioxide 25 mmol/L (22.0-30.0); Chloride 104 mmol/L (98-107); Creatinine Clearance Estimated 35 mL/min (50-200); Estimated Glomerular Filt Rate 53 ml/min (>60); GFR (African American) 64 ML/MIN (>60); Glucose 185 mg/dl (74-100); Magnesium 1.4 mg/dl (1.6-2.3); Potassium 4.3 mmoL/L (3.5-5.1); Sodium 133 mmol/L (136-145)
[2021-08-26 07:41] LABS: Basophils % 0.4 % (0.1-2.0); Eosinophils % 1.6 % (0.1-12.0); Hematocrit 28.6 % (37.0-47.0); Lymphocytes # 1.6 K/mm3 (0.7-4.5); Lymphocytes % 25.1 % (10-50); Mean Corpuscular HGB Conc 32.9 g/dL (31.8-35.4); Mean Corpuscular Hemoglobin 26.9 pg (27.0-31.2); Mean Corpuscular Volume 81.8 fl (81-99); Mean Platelet Volume 8.1 fl (7.4-10.4); Monocytes # 0.4 K/mm3 (0.1-1.0); Monocytes % 5.9 % (1.7-9.3); Neutrophils # 4.4 K/mm3 (1.8-7.8); Platelet Count 184 K/mm3 (142-424); White Blood Count 6.5 K/mm3 (4.8-10.8)
[2021-08-26 07:43] LABS: Hemoglobin 9.4 g/dL (12.2-16.2)
[2021-08-26 08:00] VITALS: BP 100/51; PULSE 70; RESP 16; TEMP 36.4; O2SAT 98
--- NOTE | 2021-08-26 08:34 | HMH.HPDC ---
General - General Admission date:: 08/26/21 Discharge date: 08/26/21 *Admission Date: 08/25/21 *Chief complaint: Elevated BG and Blurry Vision *History of present illness: 86-year-old female patient presented to the [facility] emergency department with reports of high blood sugar and blurry vision started earlier in the day. Patient recently admitted for DKA and discharged with changes to her insulin medication which she reports she has been using instruction. Her medication was also adjusted for CHF. Lab work in the emergency room revealed sodium 127, potassium 5.7, BUN 49, creatinine 1.5 and blood glucose of 369 In the emergency department she did receive 1 L of normal saline and was admitted to the floor for observation [facility] History I have reviewed the patient's past medical history: Yes Medical History: Reports:: Arrhythmia, Atrial Fibrillation, Cardiomyopathy, Congestive Heart Failure, Coronary Artery Disease, Diabetes Mellitus Type 2, Gastroesophageal Reflux Disease(GERD), Hyperlipidemia, Hypertension, Internal Pacemaker, Peripheral Artery Disease Denies:: Cancer, Diabetes Mellitus Type 1, MRSA, Seizures *Have you ever received a pneumonia vaccine?: Yes *Have you received a flu vaccine this season?: Yes Other Medical History: Reports: Anemia, Arthritis, Cataracts, Other. Denies: Blood Transfusion Reaction Laterality Cases: Bilateral: Tonsillectomy Other Surgeries: Yes: Appendectomy, Cardiac Catheterization (01/28/18 1 stent), Cholecystectomy, Colonoscopy, EGD, Hysterectomy-Total, Pacemaker, Other Amputation: No Fractures: No - *Social History Smoking Status: Never smoker Alcohol Intake: never Alcohol Intake Frequency:: other *Occupational Status:: retired Housing: house Household Members: children *Travel in the last 8 weeks: None Family Hx:: No significant family history Review of Systems - Review of Systems Review of systems:: pertinent systems reviewed and negative unless documented below - Constitutional Reports lack of energy, Denies fever(s) - Eyes Reports blurry vision, Reports change in vision, Denies discharge - ENT Reports hearing loss, Denies dizziness, Denies difficulty swallowing - *Cardiovascular Denies chest pain, Denies shortness of breath - *Respiratory Denies chest congestion, Denies cough - *Gastrointestinal Denies abdominal pain, Denies change in stools - *Neurologic Reports weakness, Denies headache(s), Denies seizure-like activity - Psychiatric Denies anxiety - Endocrine Denies cold intolerance, Denies rapid, pounding, or irregular heartbeat - Hematologic/Lymphatic Denies easy bleeding, Denies enlarged lymph nodes - Allergic/Immunologic Denies GI upset with certain foods, Denies throat swelling Exam Vital signs and Labs for Last 24 Hours: Temp Pulse Resp BP Pulse Ox 97.5 F L 70 16 100/51 L 98 08/26/21 08:00 08/26/21 08:00 08/26/21 08:00 08/26/21 08:00 08/26/21 08:00 Laboratory Results - last 24 hr 08/25/21 22:30: WBC 11.1 H, RBC 4.32, Hgb 11.5 L, Hct 35.4 L, MCV 81.9, MCH 26.5 L, MCHC 32.3, RDW 16.8, Plt Count 250, MPV 8.1, Neut % (Auto) 72.3, Lymph % (Auto) 21.6, [place] % (Auto) 4.1, Eos % (Auto) 1.4, Baso % (Auto) 0.6, Neut # (Auto) 8.0 H, Lymph # (Auto) 2.4, [place] # (Auto) 0.5, Eos # (Auto) 0.2, Baso # (Auto) 0.1, ESR 75 H 08/25/21 22:30: Sodium 127 L, Potassium 6.2 H*, Chloride 92 L, Carbon Dioxide 23, Anion Gap 18.2 H, BUN 49 H, Creatinine 1.50 H, Estimated Creat Clear 24, Estimated GFR 33 L, Est GFR ( Amer) 40 L, Glucose 369 H, Calcium 9.9, Total Bilirubin 0.3, AST 47 H, ALT 26, Alkaline Phosphatase 144 H, C-Reactive Protein 2.8, Total Protein 7.3, Albumin 4.3, Globulin 3.0, Albumin/Globulin Ratio 1.4 08/25/21 22:30: Acetone Level None detected 08/25/21 22:58: Urine Color Yellow, Urine Appearance Clear, Urine pH 6.0, Ur Specific [place] 1.015, Urine Protein Negative, Urine Glucose (UA) 2+, Urine Ketones Negative, Urine Blo
--- NOTE | 2021-08-26 10:04 | SW/DCPLANNER ---
I have attempted to contact this patient regarding discharge plans: no answer at this time. Patient recently discharged from hospital and home health services were set up.
--- NOTE | 2021-08-26 10:25 | PC.NURSE ---
Patient ready for discharge to home.
[2021-08-27 05:03] LABS: POC Glucose,Bedside 293 (70-110)
[2021-08-29 05:30] LABS: POC Glucose,Bedside 386 (70-110)
== END 2021-08-26 11:25 | disposition home or self-care (01) ==
LOC: ER 22:32 → 2ND 08-26 00:24
PROVIDERS: Admitting Provider Emergency Medicine; Emergency Provider Emergency Medicine; PCP Emergency Medicine; Visit Provider Emergency Medicine
DX: E87.5 Hyperkalemia (principal); N17.9 Acute kidney failure, unspecified; Z20.822 Contact with and (suspected) exposure to COVID-19; E11.9 Type 2 diabetes mellitus without complications; I48.91 Unspecified atrial fibrillation; I42.9 Cardiomyopathy, unspecified; I50.9 Heart failure, unspecified; I11.0 Hypertensive heart disease with heart failure; I25.10 Atherosclerotic heart disease of native coronary artery without angina pectoris; Z95.0 Presence of cardiac pacemaker; Z79.899 Other long term (current) drug therapy; Z79.4 Long term (current) use of insulin
CPT/HCPCS: G0378; 36415; 80048; 80053; 80162; 81001; 82009; 82962; 83605; 83735; 84132; 85025; 85651; 86140; 87040; 93005; 96365; 96366; 99285; C9803; U0003; U0005

== ENCOUNTER → 2021-09-02 10:25 | Outpatient (CLI) | payer MEDICARE, SELFPAY ==
[2021-09-02 14:00] LABS: Hemoglobin A1C 12.4 % (4.0-6.0)
== END ==
PROVIDERS: Visit Provider Emergency Medicine
DX: E11.9 Type 2 diabetes mellitus without complications (principal); Z79.4 Long term (current) use of insulin
CPT/HCPCS: 36415; 83036

== ENCOUNTER 2021-09-19 23:02 | Emergency (ER) | payer MEDICARE, SELFPAY ==
[2021-09-19 23:01] VITALS: BP 136/60; PULSE 70; RESP 18; TEMP 37.1; O2SAT 99; BMI 20.9
--- NOTE | 2021-09-19 23:02 | ECG_ITS ---
APPROVED REPORT Exam: Resting ECG HR:70 bpm ECG Measurements Heart Rate 70 AXES QRSd 88 QRS 19 QT 342 T -59 QTc 369 Conclusion Electronic atrial pacemaker Nonspecific T wave abnormality Abnormal ECG Electronically signed by : Alexy Rivera MD 09/20/2021 06:12:27
--- NOTE | 2021-09-19 23:12 | XR_ITS ---
PROCEDURE INFORMATION: Exam: XR Chest Exam date and time: 09/19/2021 11:12 PM Age: 86 years old Clinical indication: Patient HX: Slight chest pain, left arm pain starting tonight , lasted 30 minutes TECHNIQUE: Imaging protocol: XR of the chest. Views: 2 views. COMPARISON: CR XR CHEST PORTABLE 08/18/2021 1:30 PM FINDINGS: Tubes, catheters and devices: There is a left dual lead transvenous pacer with distal leads in the right atrium and right ventricle. Lungs: Unremarkable. No consolidation. Pleural spaces: Unremarkable. No pleural effusion. No pneumothorax. Heart/Mediastinum: Unremarkable. No cardiomegaly. Bones/joints: There are degenerative changes noted within the thoracic spine. No evidence of occult fracture. Levoconvex lumbar scoliosis. There is osteopenia of visualized bones. IMPRESSION: No evidence of acute intrathoracic disease.
[2021-09-19 23:21] LABS: Basophils % 0.4 % (0.1-2.0); Eosinophils # 0.5 K/mm3 (0.0-0.4); Eosinophils % 4.9 % (0.1-12.0); Lymphocytes % 21.3 % (10-50); Mean Corpuscular HGB Conc 32.8 g/dL (31.8-35.4); Mean Corpuscular Hemoglobin 25.5 pg (27.0-31.2); Mean Corpuscular Volume 77.8 fl (81-99); Monocytes # 0.5 K/mm3 (0.1-1.0); Monocytes % 5.3 % (1.7-9.3); Neutrophils # 6.5 K/mm3 (1.8-7.8); Neutrophils % 68.1 % (37.0-80.0); Platelet Count 332 K/mm3 (142-424); Red Blood Count 3.52 M/mm3 (4.20-5.40); Red Cell Distribution Width 16.2 % (11.5-17.5); White Blood Count 9.5 K/mm3 (4.8-10.8)
[2021-09-19 23:22] LABS: Hematocrit 27.3 % (37.0-47.0)
[2021-09-19 23:29] LABS: Alanine Aminotransferase 19 U/L (12-78); Albumin Level 3.8 g/dl (3.5-5.0); Alkaline Phosphatase 140 U/L (38-126); Anion Gap 13.6 mEq/L (5-15); Aspartate Amino Transferase 32 U/L (14-36); Bilirubin,Direct 0.2 mg/dl (0.0-0.4); Bilirubin,Indirect 0.1 mg/dL (0.0-0.9); Bilirubin,Total 0.3 mg/dl (0.2-1.3); Bilirubin,Unconjugated 0.1 mg/dL (0.0-1.1); Blood Urea Nitrogen 25 mg/dl (7-17); Calcium 9.5 mg/dl (8.4-10.2); Carbon Dioxide 29 mmol/L (22.0-30.0); Chloride 94 mmol/L (98-107); Creatinine Clearance Estimated 35 mL/min (50-200); Estimated Glomerular Filt Rate 60 ml/min (>60); GFR (African American) 72 ML/MIN (>60); Glucose 301 mg/dl (74-100); Potassium 4.6 mmoL/L (3.5-5.1); Sodium 132 mmol/L (136-145); Total Protein,Serum 6.7 g/dl (6.3-8.2)
[2021-09-19 23:30] VITALS: BP 115/51; PULSE 70; RESP 13; O2SAT 96
[2021-09-19 23:48] LABS: Troponin I < 0.01 ng/ml (0.00-0.034)
[2021-09-20] VITALS (9 sets, daily range): BP systolic 113–122; BP diastolic 47–53; PULSE 69–71; RESP 11–18; TEMP 36.6; O2SAT 94–98
--- NOTE | 2021-09-20 00:33 | HMH.EDGENADL ---
ED Disposition Clinical Impression: Angina at rest, Hyperglycemia due to diabetes mellitus Disposition: Home, Self-Care Condition on Discharge: Good Instructions: DI for Chest Pain Additional Instructions: resume meds and see card wednesday Referrals: Marcel Hylton MD [Primary Care Provider] - - Critical Care Critical Care Time: No Attestation: On 09/19/21, the high probability of a clinically significant, sudden or life threatening deterioration of the following system(s) required my full and direct attention, intervention and personal management. The time I documented below is in addition to time spent performing reported procedures but includes the following listed in this critical care notation. Medical Decision Making - Medical Records Medical records reviewed: Yes: I reviewed the patient's medical records. - Thomas Inquiry Pt receiving controlled substance: No Vital Signs: 09/19/21 23:01 09/19/21 23:30 09/20/21 00:00 Temperature 98.7 F Temperature Source Oral Pulse Rate 70 70 Pulse Rate [Right Radial] 70 Respiratory Rate 18 13 13 Blood Pressure 115/51 L 117/52 L Blood Pressure [Right Arm] 136/60 Blood Pressure Mean [Right Arm] 85 Blood Pressure Source [Right Arm] Automatic Cuff Blood Pressure Position [Right Arm] Sitting 02 Sat by Pulse Oximetry 99 96 96 Oxygen Delivery Method Room Air Room Air Room Air 09/20/21 00:30 09/20/21 01:00 09/20/21 02:00 Temperature Temperature Source Pulse Rate 70 69 70 Pulse Rate [Right Radial] Respiratory Rate 11 L 12 14 Blood Pressure 115/48 L 115/47 L 116/51 L Blood Pressure [Right Arm] Blood Pressure Mean [Right Arm] Blood Pressure Source [Right Arm] Blood Pressure Position [Right Arm] 02 Sat by Pulse Oximetry 96 97 94 L Oxygen Delivery Method Room Air Room Air 09/20/21 02:30 09/20/21 03:00 09/20/21 03:30 Temperature Temperature Source Pulse Rate 70 70 70 Pulse Rate [Right Radial] Respiratory Rate 15 15 14 Blood Pressure 116/51 L 113/49 L 115/49 L Blood Pressure [Right Arm] Blood Pressure Mean [Right Arm] Blood Pressure Source [Right Arm] Blood Pressure Position [Right Arm] 02 Sat by Pulse Oximetry 96 98 97 Oxygen Delivery Method 09/20/21 04:00 Temperature Temperature Source Pulse Rate 71 Pulse Rate [Right Radial] Respiratory Rate 14 Blood Pressure 117/49 L Blood Pressure [Right Arm] Blood Pressure Mean [Right Arm] Blood Pressure Source [Right Arm] Blood Pressure Position [Right Arm] 02 Sat by Pulse Oximetry 97 Oxygen Delivery Method - Lab Data Lab results reviewed: Yes: I reviewed the patient's lab results. Lab Results 09/19/21 23:13: WBC 9.5, RBC 3.52 L, Hgb 9.0 L, Hct 27.3 L, MCV 77.8 L, MCH 25.5 L, MCHC 32.8, RDW 16.2, Plt Count 332, MPV 8.0, Neut % (Auto) 68.1, Lymph % (Auto) 21.3, [place] % (Auto) 5.3, Eos % (Auto) 4.9, Baso % (Auto) 0.4, Neut # (Auto) 6.5, Lymph # (Auto) 2.0, [place] # (Auto) 0.5, Eos # (Auto) 0.5 H, Baso # (Auto) 0.0 09/19/21 23:13: Sodium 132 L, Potassium 4.6, Chloride 94 L, Carbon Dioxide 29, Anion Gap 13.6, BUN 25 H, Creatinine 0.90, Estimated Creat Clear 35, Estimated GFR 60, Est GFR ( Amer) 72, Glucose 301 H, Calcium 9.5, Total Bilirubin 0.3, Direct Bilirubin 0.2, Conjugated Bilirubin 0.0, Indirect Bilirubin 0.1, Unconjugated Bilirubin 0.1, AST 32, ALT 19, Alkaline Phosphatase 140 H, Troponin I < 0.01, Total Protein 6.7, Albumin 3.8 09/20/21 01:55: Troponin I < 0.01 Result diagrams: 09/19/21 23:13 09/19/21 23:13 Orders (Tests/Meds): ORDERS Category Date Time Status Digoxin Stat Lab 09/20/21 04:47 Ordered Troponin I Q3H Lab 09/20/21 05:15 Ordered - Radiology Data #1 Image(s): Chest Image Reviewed: Yes I have reviewed radiologist's interpretation Preliminary Findings: Normal/NAD - ECG Data Tracing #1 Normal Sinus Rhythm: Yes Ischemic changes: non-specific ST-T wave changes Medical Decision Narra
[2021-09-20 02:25] LABS: Troponin I < 0.01 ng/ml (0.00-0.034)
== END 2021-09-20 05:21 | disposition home or self-care (01) ==
PROVIDERS: Emergency Provider Emergency Medicine; PCP Emergency Medicine
DX: I20.8 Other forms of angina pectoris (principal); E11.65 Type 2 diabetes mellitus with hyperglycemia; E78.5 Hyperlipidemia, unspecified; I10 Essential (primary) hypertension; I25.10 Atherosclerotic heart disease of native coronary artery without angina pectoris; I50.9 Heart failure, unspecified; I48.91 Unspecified atrial fibrillation; K21.9 Gastro-esophageal reflux disease without esophagitis
CPT/HCPCS: 71046; 80048; 80076; 80162; 84484; 85025; 93005; 99283

== ENCOUNTER → 2021-09-24 17:17 | Outpatient (CLI) | payer MEDICARE, SELFPAY | PROVIDERS: Visit Provider Emergency Medicine | DX: E11.10 Type 2 diabetes mellitus with ketoacidosis without coma (principal); Z79.4 Long term (current) use of insulin; B96.20 Unspecified Escherichia coli [E. coli] as the cause of diseases classified elsewhere | CPT/HCPCS: 87086; 87088; 87186 ==

== ENCOUNTER 2021-09-27 15:58 | Emergency (ER) | payer MEDICARE, SELFPAY ==
[2021-09-27] VITALS (11 sets, daily range): BP systolic 116–125; BP diastolic 50–53; PULSE 68–80; RESP 16–22; TEMP 36.8–37.1; O2SAT 89–100; BMI 20.9
--- NOTE | 2021-09-27 16:34 | XR_ITS ---
PROCEDURE INFORMATION: Exam: XR Chest Exam date and time: 09/27/2021 4:34 PM Age: 86 years old Clinical indication: Shortness of breath; Additional info: SOB TECHNIQUE: Imaging protocol: XR of the chest. Views: 1 view. COMPARISON: CR XR CHEST 2V 09/19/2021 11:30 PM FINDINGS: Tubes, catheters and devices: Dual chamber pacemaker/cardioverter in appropriate position with lead tips in the right atrium and right ventricle. Airway: Patent Lungs: COPD/emphysema is appreciated. Prominence of the pulmonary vasculature. No acute interstitial or airspace disease. Pleural spaces: Unremarkable. No pleural effusion. No pneumothorax. Heart/Mediastinum: The heart is mildly enlarged. Bones/joints: No acute skeletal abnormality or aggressive osseous lesion. IMPRESSION: NEGATIVE FOR ACUTE THORACIC PATHOLOGY.
[2021-09-27 16:45] LABS: POC Glucose,Bedside 480 (70-110)
[2021-09-27 17:08] LABS: Coronavirus 19, PCR Not Detected (NotDetected); Influenza A, PCR Not Detected (NotDetected); Influenza B, PCR Not Detected (NotDetected)
[2021-09-27 17:17] LABS: Alanine Aminotransferase 17 U/L (12-78); Albumin Level 3.7 g/dl (3.5-5.0); Albumin/Globulin Ratio 1.3 (1.1-1.8); Alkaline Phosphatase 128 U/L (38-126); Anion Gap 12.7 mEq/L (5-15); Aspartate Amino Transferase 29 U/L (14-36); Basophils # 0.1 K/mm3 (0-0.2); Basophils % 0.6 % (0.1-2.0); Bilirubin,Total 0.5 mg/dl (0.2-1.3); Blood Urea Nitrogen 30 mg/dl (7-17); Calcium 9.3 mg/dl (8.4-10.2); Carbon Dioxide 26 mmol/L (22.0-30.0); Chloride 98 mmol/L (98-107); Creatinine Clearance Estimated 27 mL/min (50-200); Eosinophils # 0.4 K/mm3 (0.0-0.4); Eosinophils % 4.2 % (0.1-12.0); Estimated Glomerular Filt Rate 39 ml/min (>60); GFR (African American) 47 ML/MIN (>60); Globulin 2.8 g/dL (1.3-3.2); Hematocrit 26.5 % (37.0-47.0); Lymphocytes # 1.3 K/mm3 (0.7-4.5); Lymphocytes % 14.4 % (10-50); Mean Corpuscular HGB Conc 30.4 g/dL (31.8-35.4); Mean Corpuscular Hemoglobin 24.8 pg (27.0-31.2); Mean Corpuscular Volume 81.5 fl (81-99); Monocytes # 0.5 K/mm3 (0.1-1.0); Monocytes % 5.2 % (1.7-9.3); Neutrophils # 6.7 K/mm3 (1.8-7.8); Neutrophils % 75.5 % (37.0-80.0); Platelet Count 298 K/mm3 (142-424); Potassium 4.7 mmoL/L (3.5-5.1); Red Blood Count 3.25 M/mm3 (4.20-5.40); Red Cell Distribution Width 17.6 % (11.5-17.5); Sodium 132 mmol/L (136-145); Total Protein,Serum 6.5 g/dl (6.3-8.2); White Blood Count 8.9 K/mm3 (4.8-10.8)
[2021-09-27 17:19] LABS: VBG Base Excess -2.8 mmol/L (-2.4-2.3); VBG HCO3 22.3 mmol/L (23-30); VBG Oxygen Saturation 74.8 % (50-70); VBG PCO2 38.9 mmol/L (35-51); VBG PH 7.38 mmol/L (7.31-7.41); VBG Total CO2 23.5 mmol/L (23-27)
[2021-09-27 17:21] LABS: Glucose 446 mg/dl (74-100)
[2021-09-27 17:27] LABS: Lactic Acid 2.6 mmol/L (0.7-2.1)
[2021-09-27 17:36] LABS: Acetone, Serum (Rapid) None Detected (None Detect)
--- NOTE | 2021-09-27 18:24 | HMH.EDGENADL ---
ED Disposition Clinical Impression: Hyperglycemia Urinary tract infection Qualifiers: Urinary tract infection type: acute cystitis Hematuria presence: with hematuria Qualified Code(s): N30.01 - Acute cystitis with hematuria Disposition: Home, Self-Care Condition on Discharge: Good Instructions: DI for Hyperglycemia -- Adult, DI for Urinary Tract Infection (UTI) Additional Instructions: Stop taking Levaquin. Start taking Omnicef tomorrow. Call Dr. Hylton's office on Wednesday morning to report on your condition and arrange follow-up. Return to the emergency department if worsening. Prescriptions: Cefdinir [Omnicef 300mg Capsule] 300 mg PO BID #20 cap Transmission Status: Pending to [facility] Referrals: Marcel Hylton MD [Primary Care Provider] - - Critical Care Critical Care Time: No Attestation: On 09/27/21, the high probability of a clinically significant, sudden or life threatening deterioration of the following system(s) required my full and direct attention, intervention and personal management. The time I documented below is in addition to time spent performing reported procedures but includes the following listed in this critical care notation. Medical Decision Making - Medical Records Medical records reviewed: Yes: I reviewed the patient's medical records. MR Comment: Seen in ER on 09/19/2021 for angina and hyperglycemia. Emergency note reviewed. Follow-up with primary care provider on 09/24/2021 in the office. Note reviewed. She had a urine analysis done and treated for UTI. Culture sent. Culture results showed gram-negative rods 10-20,000 colonies on preliminary result. - Thomas Inquiry Pt receiving controlled substance: No Vital Signs: 09/27/21 15:59 09/27/21 16:30 09/27/21 17:30 Temperature 98.7 F Temperature Source Oral Pulse Rate Pulse Rate [Radial] 68 70 70 Respiratory Rate 16 20 Blood Pressure Blood Pressure [Right Arm] 125/50 L 125/50 L Blood Pressure Mean Blood Pressure Mean [Right Arm] 75 75 Blood Pressure Source [Right Arm] Automatic Cuff Blood Pressure Position [Right Arm] Sitting Supine 02 Sat by Pulse Oximetry 98 100 96 Oxygen Delivery Method Room Air Room Air Room Air 09/27/21 18:07 09/27/21 18:15 09/27/21 18:30 Temperature Temperature Source Pulse Rate 70 70 Pulse Rate [Radial] 70 Respiratory Rate Blood Pressure Blood Pressure [Right Arm] Blood Pressure Mean Blood Pressure Mean [Right Arm] Blood Pressure Source [Right Arm] Blood Pressure Position [Right Arm] 02 Sat by Pulse Oximetry 96 97 95 Oxygen Delivery Method Room Air 09/27/21 18:42 09/27/21 18:49 Temperature Temperature Source Pulse Rate 70 80 Pulse Rate [Radial] Respiratory Rate Blood Pressure 120/53 L Blood Pressure [Right Arm] Blood Pressure Mean 93 Blood Pressure Mean [Right Arm] Blood Pressure Source [Right Arm] Blood Pressure Position [Right Arm] 02 Sat by Pulse Oximetry 98 89 L Oxygen Delivery Method - Lab Data Lab Results 09/27/21 16:34: VBG pH 7.38, VBG pCO2 38.9, VBG pO2 42.0 H, VBG HCO3 22.3 L, VBG Total CO2 23.5, VBG O2 Saturation 74.8 H, VBG Base Excess -2.8 L 09/27/21 16:38: POC Glucose 480 H* 09/27/21 16:56: WBC 8.9, RBC 3.25 L, Hgb 8.0 L, Hct 26.5 L, MCV 81.5, MCH 24.8 L, MCHC 30.4 L, RDW 17.6 H, Plt Count 298, MPV 9.0, Neut % (Auto) 75.5, Lymph % (Auto) 14.4, [place] % (Auto) 5.2, Eos % (Auto) 4.2, Baso % (Auto) 0.6, Neut # (Auto) 6.7, Lymph # (Auto) 1.3, [place] # (Auto) 0.5, Eos # (Auto) 0.4, Baso # (Auto) 0.1 09/27/21 16:56: Sodium 132 L, Potassium 4.7, Chloride 98, Carbon Dioxide 26, Anion Gap 12.7, BUN 30 H, Creatinine 1.30 H, Estimated Creat Clear 27, Estimated GFR 39 L, Est GFR ( Amer) 47 L, Glucose 446 H*, Calcium 9.3, Total Bilirubin 0.5, AST 29, ALT 17, Alkaline Phosphatase 128 H, Total Protein 6.5, Albumin 3.7, Globulin 2.8, Albumin/Globulin Ratio 1.3 09/27/21 16:56: Acetone Level No
[2021-09-27 18:45] LABS: POC Glucose,Bedside 396 (70-110)
[2021-09-27 18:59] LABS: Microscopic, Urine URINE MICROSCOPIC (MICROSCOPIC)
[2021-09-27 19:06] LABS: Appearance,Urine SL CLOUDY (Clear); Bilirubin,Urine Negative (Negative); Blood, Urine 1+ (Negative); Color,Urine YELLOW (Yellow); Glucose,Urine (UA) 3+ (Negative); Ketones,Urine Negative (Negative); Leukocyte Esterase,Urine 2+ (Negative); Nitrate,Urine Negative (Negative); Protein,Urine Negative (Negative); Urobilinogen,Urine 0.2 EU/dl (0.2)
[2021-09-27 19:19] LABS: Bacteria,Urine 1+ /lpf; Squamous Epithelial Cell,Urine Occasional #/hpf (0-5); WBC,Urine 50-100 #/hpf (0-3)
[2021-09-27 20:32] LABS: POC Glucose,Bedside 269 (70-110)
[2021-09-27 21:10] LABS: Reflex Lactic Add Lactic Reflex
[2021-09-27 21:55] LABS: Lactic Acid Follow Up (RFLX 1) 1.3 mmol/L (0.7-2.1)
== END 2021-09-27 21:52 | disposition home or self-care (01) ==
PROVIDERS: Emergency Provider Emergency Medicine; PCP Emergency Medicine
DX: N30.01 Acute cystitis with hematuria (principal); E11.65 Type 2 diabetes mellitus with hyperglycemia; K21.9 Gastro-esophageal reflux disease without esophagitis; E78.5 Hyperlipidemia, unspecified; I10 Essential (primary) hypertension; Z95.0 Presence of cardiac pacemaker; Z79.899 Other long term (current) drug therapy
CPT/HCPCS: 36415; 71045; 80053; 81001; 82009; 82803; 82962; 83605; 85025; 87086; 96367; 96374; 96375; 99282; C9803; U0003; U0005

== ENCOUNTER 2021-11-01 15:42 | Inpatient (IN) | payer MEDICARE, MEDICAID, SELFPAY ==
[2021-11-01] VITALS (29 sets, daily range): BP systolic 106–135; BP diastolic 45–71; PULSE 68–78; RESP 12–19; TEMP 36.5–37.3; O2SAT 94–100; BMI 20.9; BMI 22.8
--- NOTE | 2021-11-01 15:46 | XR_ITS ---
PROCEDURE INFORMATION: Exam: XR Chest Exam date and time: 11/01/2021 3:46 PM Age: 86 years old Clinical indication: Cough TECHNIQUE: Imaging protocol: XR of the chest. Views: 1 view. COMPARISON: CR XR CHEST PORTABLE 09/27/2021 4:43 PM FINDINGS: Tubes, catheters and devices: Transvenous pacemaker leads in the heart Lungs: Hyperexpanded lung loredo consistent with COPD Pleural spaces: Unremarkable. No pleural effusion. No pneumothorax. Heart/Mediastinum: Unremarkable. No cardiomegaly. Bones/joints: Unremarkable. IMPRESSION: Hyperexpanded lung [place] consistent with COPD
[2021-11-01 16:02] LABS: Eosinophils # 0.1 K/mm3 (0.0-0.4); Lymphocytes # 1.5 K/mm3 (0.7-4.5); Monocytes # 0.4 K/mm3 (0.1-1.0)
[2021-11-01 16:05] LABS: Chloride 99 mmol/L (98-107); Potassium 4.9 mmoL/L (3.5-5.1); Sodium 132 mmol/L (136-145)
[2021-11-01 16:05] LABS: VBG Base Excess -5.7 mmol/L (-2.4-2.3); VBG HCO3 19.2 mmol/L (23-30); VBG Oxygen Saturation 97.3 % (50-70); VBG PCO2 32.3 mmol/L (35-51); VBG PH 7.39 mmol/L (7.31-7.41); VBG PO2 121.6 mmol/L (28-40); VBG Total CO2 20.2 mmol/L (23-27)
[2021-11-01 16:08] LABS: Alanine Aminotransferase 19 U/L (12-78); Albumin Level 3.8 g/dl (3.5-5.0); Albumin/Globulin Ratio 1.4 (1.1-1.8); Alkaline Phosphatase 111 U/L (38-126); Anion Gap 16.9 mEq/L (5-15); Aspartate Amino Transferase 28 U/L (14-36); Bilirubin,Total 0.5 mg/dl (0.2-1.3); Blood Urea Nitrogen 39 mg/dl (7-17); Calcium 8.8 mg/dl (8.4-10.2); Carbon Dioxide 21 mmol/L (22.0-30.0); Creatinine Clearance Estimated 27 mL/min (50-200); Estimated Glomerular Filt Rate 39 ml/min (>60); GFR (African American) 47 ML/MIN (>60); Globulin 2.8 g/dL (1.3-3.2); Glucose 395 mg/dl (74-100); Total Protein,Serum 6.6 g/dl (6.3-8.2)
[2021-11-01 16:09] LABS: Basophils % 0.5 % (0.1-2.0); Eosinophils % 0.9 % (0.1-12.0); Lymphocytes % 16.1 % (10-50); Mean Corpuscular HGB Conc 30.5 g/dL (31.8-35.4); Mean Corpuscular Hemoglobin 21.3 pg (27.0-31.2); Mean Corpuscular Volume 69.7 fl (81-99); Mean Platelet Volume 9.9 fl (7.4-10.4); Monocytes % 4.1 % (1.7-9.3); Neutrophils # 7.3 K/mm3 (1.8-7.8); Neutrophils % 78.4 % (37.0-80.0); Platelet Count 287 K/mm3 (142-424); Red Blood Count 2.05 M/mm3 (4.20-5.40); Red Cell Distribution Width 18.9 % (11.5-17.5); White Blood Count 9.3 K/mm3 (4.8-10.8)
[2021-11-01 16:10] LABS: Hemoglobin 4.4 g/dL (12.2-16.2)
[2021-11-01 16:11] LABS: Hematocrit 14.3 % (37.0-47.0)
--- NOTE | 2021-11-01 16:11 | PC.NURSE ---
Hayden called from lab to inform of Hgb of 4.4 and Hct of 14.3. notified.
[2021-11-01 16:14] LABS: Lactic Acid 3.8 mmol/L (0.7-2.1)
--- NOTE | 2021-11-01 16:19 | CT_ITS ---
PROCEDURE INFORMATION: Exam: CT Abdomen And Pelvis With Contrast Exam date and time: 11/01/2021 4:19 PM Age: 86 years old Clinical indication: Abdominal pain; Tenderness; Lower; Prior surgery; Surgery date: 6+ months; Surgery type: Hysterectomy, appendectomy, cholecysectomy TECHNIQUE: Imaging protocol: Computed tomography of the abdomen and pelvis with contrast. Radiation optimization: All CT scans at this facility use at least one of these dose optimization techniques: automated exposure control; mA and/or kV adjustment per patient size (includes targeted exams where dose is matched to clinical indication); or iterative reconstruction. Contrast material: ISOVUE; Contrast volume: 75 ml; Contrast route: IV; COMPARISON: CT ABDOMEN PELVIS W CON 04/22/2021 8:52 PM FINDINGS: Tubes, catheters and devices: Transvenous pacemaker lead in the right ventricle Lungs: Bibasilar atelectasis Pleural spaces: Moderate right pleural effusion. Liver: Normal. No mass. Gallbladder and bile ducts: Cholecystectomy. Mild Intra hepatic ductal dilatation The common duct is prominent. It measures 12 millimeters. This may be due to post cholecystectomy state and elderly status. However, if biliary obstruction is suspected clinically, recommend further evaluation Pancreas: Pancreatic atrophy Spleen: Normal. No splenomegaly. Adrenal glands: Normal. No mass. Kidneys and ureters: Multiple simple cysts in the left kidney. . No follow-up imaging recommended . Stomach and bowel: Diverticulosis of the rectosigmoid. No diverticulitis. Appendix: Appendectomy Intraperitoneal space: Unremarkable. No free air. No significant fluid collection. Vasculature: Unremarkable. No abdominal aortic aneurysm. Lymph nodes: Unremarkable. No enlarged lymph nodes. Urinary bladder: Unremarkable as visualized. Reproductive: Surgical resection of the uterus Bones/joints: Unremarkable. No acute fracture. Soft tissues: Unremarkable. IMPRESSION: Moderate right pleural effusion COMMENTS: Consistent with the [employer]'s Incidental Findings Committee white paper (J Am Laura Radiol 2018): Any incidental renal lesion less than 1 cm or classified as too small to characterize, or any incidental cystic renal lesion characterized as simple-appearing, is likely benign. No follow-up imaging is recommended for these lesions per consensus recommendations based on imaging criteria. The all
[2021-11-01 16:44] LABS: Microscopic, Urine URINE MICROSCOPIC (MICROSCOPIC)
[2021-11-01 16:48] LABS: Appearance,Urine SL CLOUDY (Clear); Bilirubin,Urine Negative (Negative); Blood, Urine Negative (Negative); Color,Urine YELLOW (Yellow); Glucose,Urine (UA) TRACE (Negative); Ketones,Urine Negative (Negative); Leukocyte Esterase,Urine 1+ (Negative); Nitrate,Urine Negative (Negative); Protein,Urine Negative (Negative); Specific Gravity, Urine 1.015 (1.005-1.030); Urobilinogen,Urine 0.2 EU/dl (0.2)
[2021-11-01 16:55] LABS: Bacteria,Urine 1+ /lpf; WBC,Urine 20-50 #/hpf (0-3)
--- NOTE | 2021-11-01 17:22 | PC.NURSE ---
has been paged
--- NOTE | 2021-11-01 17:24 | PC.NURSE ---
on the phone with .
--- NOTE | 2021-11-01 17:27 | PC.NURSE ---
House was called for admission.
--- NOTE | 2021-11-01 17:32 | HMH.EDGENADL ---
ED Disposition Clinical Impression: Anemia Disposition: Home, Self-Care Condition on Discharge: Good Referrals: Marcel Hylton MD [Primary Care Provider] - - Critical Care Critical Care Time: No Attestation: On 11/01/21, the high probability of a clinically significant, sudden or life threatening deterioration of the following system(s) required my full and direct attention, intervention and personal management. The time I documented below is in addition to time spent performing reported procedures but includes the following listed in this critical care notation. Medical Decision Making - Medical Records Medical records reviewed: Yes: I reviewed the patient's medical records. - Thomas Inquiry Pt receiving controlled substance: No Thomas was queried for this patient: No Vital Signs: 11/01/21 15:43 11/01/21 16:30 11/01/21 17:00 Temperature 98.9 F Temperature Source Oral Pulse Rate 70 70 Pulse Rate [Radial] 70 Respiratory Rate 16 19 15 Blood Pressure 106/45 L 122/52 L Blood Pressure [Right Arm] 107/52 L Blood Pressure Mean 72 75 Blood Pressure Mean [Right Arm] 70 Blood Pressure Position [Right Arm] Sitting 02 Sat by Pulse Oximetry 98 100 100 Oxygen Delivery Method Room Air - Lab Data Lab results reviewed: Yes: I reviewed the patient's lab results. Lab Results 11/01/21 15:45: VBG pH 7.39, VBG pCO2 32.3 L, VBG pO2 121.6 H, VBG HCO3 19.2 L, VBG Total CO2 20.2 L, VBG O2 Saturation 97.3 H, VBG Base Excess -5.7 L 11/01/21 15:50: WBC 9.3, RBC 2.05 L, Hgb 4.4 L*, Hct 14.3 L*, MCV 69.7 L, MCH 21.3 L, MCHC 30.5 L, RDW 18.9 H, Plt Count 287, MPV 9.9, Neut % (Auto) 78.4, Lymph % (Auto) 16.1, [place] % (Auto) 4.1, Eos % (Auto) 0.9, Baso % (Auto) 0.5, Neut # (Auto) 7.3, Lymph # (Auto) 1.5, [place] # (Auto) 0.4, Eos # (Auto) 0.1, Baso # (Auto) 0.0 11/01/21 15:50: Sodium 132 L, Potassium 4.9, Chloride 99, Carbon Dioxide 21 L, Anion Gap 16.9 H, BUN 39 H, Creatinine 1.30 H, Estimated Creat Clear 27, Estimated GFR 39 L, Est GFR ( Amer) 47 L, Glucose 395 H, Calcium 8.8, Total Bilirubin 0.5, AST 28, ALT 19, Alkaline Phosphatase 111, Total Protein 6.6, Albumin 3.8, Globulin 2.8, Albumin/Globulin Ratio 1.4 11/01/21 15:50: Lactate 3.8 H 11/01/21 16:28: Blood Type O Positive, Antibody Screen Negative, Crossmatch (AHG) See Detail 11/01/21 16:38: Urine Color Yellow, Urine Appearance Sl cloudy, Urine pH 6.0, Ur Specific [place] 1.015, Urine Protein Negative, Urine Glucose (UA) Trace, Urine Ketones Negative, Urine Blood Negative, Urine Nitrate Negative, Urine Bilirubin Negative, Urine Urobilinogen 0.2, Ur Leukocyte Esterase 1+ A, Urine WBC 20-50, Ur Squamous Epith Cells 3-5, Urine Bacteria 1+ Result diagrams: 11/01/21 15:50 11/01/21 15:50 Orders (Tests/Meds): ED MEDICATIONS Generic Name Dose Route Start Last Admin Trade Name Rufino PRN Reason Stop Dose Admin Acetaminophen 650 mg 11/01/21 17:27 Acetaminophen 325mg Tab PO 12/01/21 17:26 Q4HP PRN Fever or Mild Pain Hydrocodone Bitart/Acetaminophen 1 tab 11/01/21 17:27 Hydrocodone/Apap 5/325 Mg Tablet PO 12/01/21 17:26 Q4HP PRN Mild to Moderate Pain Sodium Chloride 250 mls @ 25 mls/hr 11/01/21 16:15 Sod Chlor 0.9% 250ml Bag IV 11/02/21 16:14 .Q10H VALENTINA Lactated Ringer's 1,000 mls @ 999 mls/hr 11/01/21 16:30 11/01/21 16:31 Lactated Ringer's 1000 Ml Bag IV 11/01/21 17:30 999 mls/hr .Q1H1M VALENTINA Administration Ceftriaxone Sodium 1 gm/ 50 mls @ 100 mls/hr 11/01/21 17:30 Sodium Chloride IV 11/15/21 17:29 Q24H VALENTINA Insulin Human Lispro 0 unit 11/01/21 17:30 Humalog 100 Units/Ml 3ml Vial (Ssi) SQ 12/01/21 17:29 Q6H VALENTINA Protocol Sodium Chloride 10 ml 11/01/21 16:56 11/01/21 16:57 Sodium Chloride 0.9% 10ml Syr (Rad Only) IV 12/01/21 16:55 10 ml NEEDED PRN Administration Maintain IV Site Discontinued Medications Generic Name Dose Route Start Last Admin Trade
[2021-11-01 17:46] LABS: Acetone, Serum (Rapid) None Detected (None Detect)
[2021-11-01 17:48] LABS: Coronavirus 19, PCR Not Detected (NotDetected); Influenza A, PCR Not Detected (NotDetected); Influenza B, PCR Not Detected (NotDetected)
--- NOTE | 2021-11-01 18:00 | PC.NURSE ---
pt's family updated on plan of care
[2021-11-01 18:15] LABS: Lactic Acid 3.1 mmol/L (0.7-2.1)
--- NOTE | 2021-11-01 18:37 | PC.NURSE ---
report called to floor
[2021-11-01 18:47] LABS: POC Glucose,Bedside 320 (70-110)
--- NOTE | 2021-11-01 19:26 | PC.NURSE ---
patient up to floor via stretcher @ this time
[2021-11-01 22:08] LABS: Reflex Lactic Add Lactic Reflex
[2021-11-01 22:56] LABS: Hemoglobin 7.7 g/dL (12.2-16.2); Lactic Acid Follow Up (RFLX 1) 1.8 mmol/L (0.7-2.1)
[2021-11-01 22:57] LABS: Hematocrit 24.2 % (37.0-47.0)
[2021-11-02] VITALS (15 sets, daily range): BP systolic 105–127; BP diastolic 42–65; PULSE 69–74; RESP 16–19; TEMP 36.3–36.9; O2SAT 93–96; BMI 22.8
[2021-11-02 00:10] LABS: POC Glucose,Bedside 276 (70-110)
--- NOTE | 2021-11-02 03:30 | PC.NURSE ---
[address] aviles in ER to clarify blood order, states to give 3rd unit of prbc's, stated goal is for hgb above 8
[2021-11-02 06:12] LABS: Basophils % 0.5 % (0.1-2.0); Eosinophils # 0.1 K/mm3 (0.0-0.4); Hemoglobin 8.9 g/dL (12.2-16.2); Lymphocytes # 1.4 K/mm3 (0.7-4.5); Lymphocytes % 19.7 % (10-50); Mean Corpuscular HGB Conc 32.3 g/dL (31.8-35.4); Mean Corpuscular Volume 77.5 fl (81-99); Mean Platelet Volume 9.9 fl (7.4-10.4); Monocytes # 0.5 K/mm3 (0.1-1.0); Monocytes % 6.5 % (1.7-9.3); Neutrophils # 5.2 K/mm3 (1.8-7.8); Neutrophils % 71.4 % (37.0-80.0); Platelet Count 210 K/mm3 (142-424); Red Blood Count 3.57 M/mm3 (4.20-5.40); Red Cell Distribution Width 20.2 % (11.5-17.5); White Blood Count 7.3 K/mm3 (4.8-10.8)
[2021-11-02 06:13] LABS: Hematocrit 27.6 % (37.0-47.0)
[2021-11-02 06:18] LABS: POC Glucose,Bedside 279 (70-110)
--- NOTE | 2021-11-02 08:26 | HMH.PHAINT ---
verified pt home meds with fill hx from pharmacy
--- NOTE | 2021-11-02 09:15 | HMH.HP ---
*Admission Date: 11/01/21 *Chief complaint: weakness *History of present illness: this patient presented to the ed - per squad with c/o generalized weakness, states blood sugar at home was over 500. pt's family called squad. pt denies any nausea, vomiting, diarrhea Patient is a 86-year-old female with past medical history of Atrial fibrillation, PAD, CHF, insulin-dependent diabetes presenting to the ED with hyperglycemia. Patient states that for the past 2 days she has been feeling unwell. Patient states that she has been feeling very weak, has not been able to get around as much. Family has been checking her blood sugars which have been elevated. Today fingerstick at home was in the 500s and EMS was called. With EMS fingerstick was very high and patient was brought to the ED for further care. Patient states that other than weakness she has not been having any other symptoms. She denies any abdominal pain, nausea, vomiting. She denies any blood in her stool, dark tarry stool. She denies any chest pain, shortness of breath. pt is 86-year-old with past medical history of insulin-dependent diabetes, PD, CHF, atrial fibrillation with a pacemaker presenting to the ED with hyperglycemia. Patient is awake, alert, not in acute distress. Patient is medically stable, afebrile. Patient's fingerstick is 432 here. Physical exam is remarkable for suprapubic tenderness with guarding. Differential includes but is not limited to ischemia, DKA, cystitis, pyelonephritis, diverticulosis, diverticulitis. Given this a CBC, CMP, VBG, lactate, UA, CT abdomen pelvis, chest x-ray is performed. Patient's lab work is remarkable for hemoglobin of 4.4, hematocrit of 14. CMP remarkable for a blood glucose of 398, anion gap of 16, creatinine of 1.3. Patient is hyperglycemic but anion gas is not significantly elevated. She is given 1 L IV fluids, as point I do not believe the patient needs to be started on the DKA protocol. Patient is typed and crossed for 2 units of packed red blood cells. She is given 1 unit of packed red blood cells. Her CT abdomen pelvis is remarkable for diverticulosis. Her UA is remarkable for leukocyte esterase, white blood cells, bacteria. She is treated with ceftriaxone. She is discussed with the admitting team and admitted to the hospital for further care and management. [facility] History I have reviewed the patient's past medical history: Yes Medical History: Reports:: Arrhythmia, Atrial Fibrillation, Cardiomyopathy, Congestive Heart Failure, Coronary Artery Disease, Diabetes Mellitus Type 2, Gastroesophageal Reflux Disease(GERD), Hyperlipidemia, Hypertension, Internal Pacemaker, Peripheral Artery Disease Denies:: Cancer, Diabetes Mellitus Type 1, MRSA, Seizures *Have you ever received a pneumonia vaccine?: No *Have you received a flu vaccine this season?: Yes Other Medical History: Reports: Anemia, Arthritis, Cataracts, Other. Denies: Blood Transfusion Reaction Laterality Cases: Bilateral: Tonsillectomy Other Surgeries: Yes: Appendectomy, Cardiac Catheterization (01/28/18 1 stent), Cholecystectomy, Colonoscopy, EGD, Hysterectomy-Total, Pacemaker, Other Amputation: No Fractures: No - *Social History Smoking Status: Never smoker Alcohol Intake: never Alcohol Intake Frequency:: other *Occupational Status:: retired Housing: house Household Members: children *Travel in the last 8 weeks: None Family Hx:: No significant family history Review of Systems - Review of Systems Review of systems:: pertinent systems reviewed and negative unless documented below - Constitutional Reports weakness, Denies fever(s) - Eyes Denies change in vision - ENT Reports dry mouth - *Cardiovascular Reports shortness of breath, Denies chest pain at rest - *Respiratory Denies cough - *Gastrointestinal Denies abdominal pain, Denies bright, red blood in stools, Denies black, tarry stools - *Genitourinary Denies blood in urine - *Musculoskeletal Denie
--- NOTE | 2021-11-02 10:08 | P.CONPHA_ITS ---
[facility] Pharmacy VTE Monitoring - Patient Demographics Admission date: 11/01/21 Report Date: 11/02/21 Time: 10:09 Allergies/Adverse Reactions: Patient Allergies No Known Allergies Allergy (Verified 09/24/21 15:25) Height: 1.6 m Weight: 58.423 kg Patient Problems: Current Active Problems Anemia (Acute) - VTE Risk Labs: VTE Related Lab Results Hgb 8.9 g/dL (12.2-16.2) L D 11/02/21 05:59 Hct 27.6 % (37.0-47.0) L 11/02/21 05:59 Plt Count 210 K/mm3 (142-424) D 11/02/21 05:59 BUN 39 mg/dl (7-17) H 11/01/21 15:50 Creatinine 1.30 mg/dl (0.52-1.04) H 11/01/21 15:50 Estimated Creat Clear 27 mL/min (50-200) 11/01/21 15:50 Was VTE Risk Assessment Performed: Yes VTE Score: 3 VTE Risk Level: Low Risk - Prophylaxis VTE Prophylaxis Ordered?: Yes Types of VTE Prophylaxis: TEDS Knee High Location of Applied Device: Bilateral Lower Extremeties
[2021-11-02 19:13] LABS: POC Glucose,Bedside 379 (70-110)
[2021-11-02 22:44] LABS: POC Glucose,Bedside 383 (70-110)
[2021-11-03] VITALS (7 sets, daily range): BP systolic 126–137; BP diastolic 58–77; PULSE 69–75; RESP 12–19; TEMP 36.4–37.1; O2SAT 96–97; BMI 24.1
[2021-11-03 00:37] LABS: POC Glucose,Bedside 258 (70-110)
[2021-11-03 06:40] LABS: POC Glucose,Bedside 335 (70-110)
[2021-11-03 08:56] LABS: Basophils # 0.1 K/mm3 (0-0.2); Basophils % 0.7 % (0.1-2.0); Eosinophils # 0.3 K/mm3 (0.0-0.4); Eosinophils % 3.5 % (0.1-12.0); Hematocrit 30.6 % (37.0-47.0); Hemoglobin 9.6 g/dL (12.2-16.2); Lymphocytes # 1.4 K/mm3 (0.7-4.5); Lymphocytes % 15.9 % (10-50); Mean Corpuscular HGB Conc 31.4 g/dL (31.8-35.4); Mean Corpuscular Hemoglobin 24.7 pg (27.0-31.2); Mean Corpuscular Volume 78.8 fl (81-99); Mean Platelet Volume 8.4 fl (7.4-10.4); Monocytes # 0.4 K/mm3 (0.1-1.0); Monocytes % 4.4 % (1.7-9.3); Neutrophils # 6.4 K/mm3 (1.8-7.8); Neutrophils % 75.6 % (37.0-80.0); Platelet Count 230 K/mm3 (142-424); Red Blood Count 3.88 M/mm3 (4.20-5.40); Red Cell Distribution Width 20.3 % (11.5-17.5); White Blood Count 8.5 K/mm3 (4.8-10.8)
[2021-11-03 09:10] LABS: Anion Gap 12.2 mEq/L (5-15); Blood Urea Nitrogen 23 mg/dl (7-17); Calcium 8.6 mg/dl (8.4-10.2); Carbon Dioxide 24 mmol/L (22.0-30.0); Chloride 105 mmol/L (98-107); Creatinine Clearance Estimated 37 mL/min (50-200); Estimated Glomerular Filt Rate 47 ml/min (>60); GFR (African American) 57 ML/MIN (>60); Glucose 260 mg/dl (74-100); Potassium 4.2 mmoL/L (3.5-5.1); Sodium 137 mmol/L (136-145)
--- NOTE | 2021-11-03 09:15 | HMH.ACPN2 ---
Internal Medicine - PN: Subj *Date: 11/03/21 *Time: 08:45 Interval history: pt states she feels good today, states she has not noticed any bleeding Exam Vital signs and Labs for Last 24 Hours: Temp Pulse Resp BP Pulse Ox 97.5 F L 75 16 137/61 97 11/03/21 07:48 11/03/21 07:48 11/03/21 07:48 11/03/21 07:48 11/03/21 07:48 Laboratory Results - last 24 hr 11/02/21 11:49: POC Glucose 258 H 11/02/21 16:32: POC Glucose 379 H* 11/02/21 21:30: POC Glucose 383 H* 11/03/21 06:25: POC Glucose 335 H* 11/03/21 08:45: WBC 8.5, RBC 3.88 L, Hgb 9.6 L, Hct 30.6 L, MCV 78.8 L, MCH 24.7 L, MCHC 31.4 L, RDW 20.3 H, Plt Count 230, MPV 8.4, Neut % (Auto) 75.6, Lymph % (Auto) 15.9, [place] % (Auto) 4.4, Eos % (Auto) 3.5, Baso % (Auto) 0.7, Neut # (Auto) 6.4, Lymph # (Auto) 1.4, [place] # (Auto) 0.4, Eos # (Auto) 0.3, Baso # (Auto) 0.1 I & O for Last 24 hours: Intake & Output 10/31/21 11/01/21 11/02/21 11/03/21 11:59 11:59 11:59 11:59 Intake Total 1030 / 1030 420 / 420 Output Total 300 / 300 1200 / 1200 Balance 730 / 730 -780 / -780 Weight 128 lb 12.8 oz 136 lb 4.8 oz Microbiology Reports for the Last 24 Hours: Microbiology 11/01/21 16:38 Urine,Clean Catch Urine Culture - Preliminary - Constitutional no acute distress, thin - *Routine HEENT Exam Head: Present: normocephalic Eye: Present: PERRL ENT: Present: mucous membranes moist - *Routine Neck Exam Present: supple. Absent: lymphadenopathy - *Routine Respiratory Exam Present: CTA bilaterally - *Routine Cardiovascular Exam Present: RRR - *Routine Abdominal Exam Present: soft, normoactive bowel sounds. Absent: tenderness - *Routine Extremities Exam Present: normal capillary refill. Absent: cyanosis, clubbing, edema - *Routine Skin Exam Present: warm. Absent: rash - *Routine Neurological Exam Present: alert, oriented X3 Assessment and Plan (1) Acute blood loss anemia (ABLA) Status: Acute Category: Medical Code(s): D62 - Acute posthemorrhagic anemia (2) Diabetes Status: Acute Qualifiers: Diabetes mellitus type: type 2 Diabetes mellitus extermination supervisor insulin use: with fpc use Diabetes mellitus complication status: with other specified complication Qualified Code(s): E11.69 - Type 2 diabetes mellitus with other specified complication; Z79.4 - extermination supervisor (current) use of insulin Category: Medical Code(s): E11.9 - Type 2 diabetes mellitus without complications (3) Urinary tract infection Status: Acute Qualifiers: Urinary tract infection type: acute cystitis Hematuria presence: with hematuria Qualified Code(s): N30.01 - Acute cystitis with hematuria Category: Medical Code(s): N39.0 - Urinary tract infection, site not specified (4) Renal insufficiency Status: Acute Category: Medical Code(s): N28.9 - Disorder of kidney and ureter, unspecified - Assessment and plan all Dx Assessment and Plan for all problems:: rounded with dr aviles all orders per dr aviles surgery consult for poss egd and colonoscopy
--- NOTE | 2021-11-03 10:58 | HMH.GSCON ---
*Admission Date: 11/01/21 *Reason for consult:: Anemia *History of present illness: Patient is an 86-year-old female with multiple medical conditions including, but not limited to, chronic renal insufficiency, diabetes mellitus, history of cardiogenic shock, congestive heart failure, coronary artery disease, atrial fibrillation, sick sinus syndrome with cardiac pacemaker, pulmonary hypertension on Xarelto. She had been having some generalized weakness and elevated blood sugars at home. She was brought to the emergency department a couple days ago by EMS with weakness and elevated blood glucose. She denied blood in her stool or symptoms consistent with melena. Physical examination in the emergency department revealed some suprapubic tenderness. Blood work revealed hemoglobin of 4.4 with hematocrit of 14. Patient was admitted for inpatient management a couple days ago. She did have a CT scan done which was remarkable for diverticulosis and moderate-sized right pleural effusion. She had been transfused 3 units packed red blood cells with most recent hemoglobin of 9.6. Surgical consultation was ordered today. Of note, I had seen the patient in the office a few months ago for possible colonoscopy. Due to the fact that the patient had enterotoxigenic E. coli in April I had plan for repeat stool diarrhea panel and possible colonoscopy. She did not follow-up at that time. She did have colonoscopy [place] [address] Christiano Beverly which revealed 15 mm polyp and diverticulosis. Dr. Beverly did repeat colonoscopy in 2001 when she had a couple polyps and diverticulosis. Dr. Golden did a colonoscopy in 2004 for rectal bleeding which reportedly only revealed diverticulosis. Patient denies symptoms of hematochezia or melena. Of note, the patient previously had laryngoscopy with esophageal dilatation by Dr. Mcginnis in 2004 and 2005. She states that based on what she was told she could not undergo another esophagoscopy interestingly. Review of Systems - Review of Systems Review of systems:: pertinent systems reviewed and negative unless documented below - *Neurologic Reports weakness, Denies seizure-like activity [facility] History I have reviewed the patient's past medical history: Yes Medical History: Reports:: Arrhythmia, Atrial Fibrillation, Cardiomyopathy, Congestive Heart Failure, Coronary Artery Disease, Diabetes Mellitus Type 2, Gastroesophageal Reflux Disease(GERD), Hyperlipidemia, Hypertension, Internal Pacemaker, Peripheral Artery Disease Denies:: Cancer, Diabetes Mellitus Type 1, MRSA, Seizures *Have you ever received a pneumonia vaccine?: No *Have you received a flu vaccine this season?: Yes Other Medical History: Reports: Anemia, Arthritis, Cataracts, Other. Denies: Blood Transfusion Reaction Laterality Cases: Bilateral: Tonsillectomy Other Surgeries: Yes: Appendectomy, Cardiac Catheterization (01/28/18 1 stent), Cholecystectomy, Colonoscopy, EGD, Hysterectomy-Total, Pacemaker, Other Amputation: No Fractures: No - *Social History Smoking Status: Never smoker Alcohol Intake: never Alcohol Intake Frequency:: other *Occupational Status:: retired Housing: house Household Members: children *Travel in the last 8 weeks: None Family Hx:: No significant family history Meds Home Medications Medication Instructions Recorded Confirmed Type aspirin 81 mg tablet,delayed 81 mg PO HS 10/05/17 11/01/21 History release atorvastatin 10 mg tablet 10 mg PO HS 10/05/17 11/01/21 History sertraline 100 mg tablet 50 mg PO DAILY 10/05/17 11/01/21 History Mirabegron [Myrbetriq] 25 mg PO HS 11/18/20 11/01/21 History Mirtazapine 7.5 mg PO HS 11/18/20 11/01/21 History Rivaroxaban [Xarelto 15mg tablet] 15 mg PO QPMWITHMEAL 02/24/21 11/01/21 History isosorbide mononitrate 30 mg 30 mg PO DAILY 07/29/21 11/01/21 History tablet,extended release 24 hr Cyanocobalamin (Vitamin B-12) 2,500 mcg SL BID 08/18/21 11/01/21 History [Vitamin B-12] Multivitamin/Iron/Folic Ac
[2021-11-03 16:39] LABS: POC Glucose,Bedside 302 (70-110)
--- NOTE | 2021-11-03 17:16 | PC.NURSE ---
1716-Shift Re-assessment: pt resting in bed at this time, pt recieved bed bath on bsc and jasper well, vss, pt has had no c/o pain or soa t/o shift, pt voiding w/out difficulty, pt has not had BM this shift to collect specimen as ordered, LS CTA, hrr, bs+x4, pt appetite been adequate this shift, IV x2 to left AC and hand-both saline locked-flushes easily, pt a&ox4 t/o shift, vss, pt stable-will continue to monitor
[2021-11-04 02:50] LABS: POC Glucose,Bedside 466 (70-110)
[2021-11-04 02:50] LABS: POC Glucose,Bedside 276 (70-110)
[2021-11-04 02:50] LABS: POC Glucose,Bedside 286 (70-110)
[2021-11-04 03:01] LABS: Occult Blood,Stool Positive (Negative)
[2021-11-04 05:00] VITALS: BP 112/58; PULSE 70; RESP 14; TEMP 36.8; O2SAT 96; BMI 23.3
--- NOTE | 2021-11-04 06:38 | HMH.GSPN ---
Subjective Narrative: Patient without complaints. Bowels did move last night. Patient unsure if there was blood in bowels or melena. Stool occult positive. Progress Note: A&P (1) Acute blood loss anemia (ABLA) Status: Acute (2) Diabetes Status: Acute (3) Urinary tract infection Status: Acute (4) Renal insufficiency Status: Acute Assessment and Plan for All Diagnoses:: Patient has stated that she had previously been told she could not undergo endoscopy. Upper GI ordered. This is unable to be done until tomorrow. If hemoglobin stable patient may actually be able to undergo outpatient work-up for anemia including hernandez endoscopy. Exam Vital signs and Labs for Last 24 Hours: Temp Pulse Resp BP Pulse Ox 98.3 F 70 14 112/58 L 96 11/04/21 05:00 11/04/21 05:00 11/04/21 05:00 11/04/21 05:00 11/04/21 05:00 Laboratory Results - last 24 hr 11/03/21 06:25: POC Glucose 335 H* 11/03/21 08:45: WBC 8.5, RBC 3.88 L, Hgb 9.6 L, Hct 30.6 L, MCV 78.8 L, MCH 24.7 L, MCHC 31.4 L, RDW 20.3 H, Plt Count 230, MPV 8.4, Neut % (Auto) 75.6, Lymph % (Auto) 15.9, [place] % (Auto) 4.4, Eos % (Auto) 3.5, Baso % (Auto) 0.7, Neut # (Auto) 6.4, Lymph # (Auto) 1.4, [place] # (Auto) 0.4, Eos # (Auto) 0.3, Baso # (Auto) 0.1 11/03/21 08:45: Sodium 137, Potassium 4.2, Chloride 105, Carbon Dioxide 24, Anion Gap 12.2, BUN 23 H D, Creatinine 1.10 H, Estimated Creat Clear 37, Estimated GFR 47 L, Est GFR ( Amer) 57 L D, Glucose 260 H, Calcium 8.6 11/03/21 11:51: POC Glucose 302 H* 11/03/21 19:16: POC Glucose 466 H* 11/03/21 21:32: POC Glucose 286 H 11/03/21 23:00: POC Glucose 276 H 11/04/21 01:57: Stool Occult Blood Positive A I & O for Last 24 hours: Intake & Output 11/01/21 11/02/21 11/03/21 11/04/21 11:59 11:59 11:59 11:59 Intake Total 1030 / 1030 420 / 420 360 / 360 Output Total 300 / 300 1200 / 1200 1002 / 1002 Balance 730 / 730 -780 / -780 -642 / -642 Weight 128 lb 12.8 oz 136 lb 4.8 oz 131 lb 12.8 oz Microbiology Reports for the Last 24 Hours: Microbiology 11/01/21 16:38 Urine,Clean Catch Urine Culture - Preliminary - *Routine Abdominal Exam Present: soft
[2021-11-04 07:23] LABS: POC Glucose,Bedside 231 (70-110)
[2021-11-04 07:56] LABS: Basophils % 0.3 % (0.1-2.0); Eosinophils # 0.3 K/mm3 (0.0-0.4); Eosinophils % 4.5 % (0.1-12.0); Hematocrit 28.8 % (37.0-47.0); Hemoglobin 9.1 g/dL (12.2-16.2); Lymphocytes # 1.5 K/mm3 (0.7-4.5); Lymphocytes % 20.2 % (10-50); Mean Corpuscular HGB Conc 31.5 g/dL (31.8-35.4); Mean Corpuscular Hemoglobin 24.7 pg (27.0-31.2); Mean Corpuscular Volume 78.3 fl (81-99); Mean Platelet Volume 8.6 fl (7.4-10.4); Monocytes # 0.3 K/mm3 (0.1-1.0); Monocytes % 4.2 % (1.7-9.3); Neutrophils # 5.4 K/mm3 (1.8-7.8); Neutrophils % 70.7 % (37.0-80.0); Platelet Count 246 K/mm3 (142-424); Red Blood Count 3.67 M/mm3 (4.20-5.40); Red Cell Distribution Width 20.9 % (11.5-17.5); White Blood Count 7.6 K/mm3 (4.8-10.8)
[2021-11-04 08:00] VITALS: BP 129/53; PULSE 70; RESP 18; TEMP 36.8; O2SAT 98
[2021-11-04 08:05] LABS: Chloride 105 mmol/L (98-107); Sodium 136 mmol/L (136-145)
[2021-11-04 08:06] LABS: Potassium 4.2 mmoL/L (3.5-5.1)
[2021-11-04 08:08] LABS: Blood Urea Nitrogen 22 mg/dl (7-17); Creatinine Clearance Estimated 36 mL/min (50-200); Estimated Glomerular Filt Rate 47 ml/min (>60); GFR (African American) 57 ML/MIN (>60)
[2021-11-04 08:09] LABS: Anion Gap 11.2 mEq/L (5-15); Calcium 8.8 mg/dl (8.4-10.2); Carbon Dioxide 24 mmol/L (22.0-30.0); Glucose 179 mg/dl (74-100)
[2021-11-04 08:24] VITALS: PULSE 70
--- NOTE | 2021-11-04 09:50 | SW/DCPLANNER ---
I spoke with this patient this AM regarding discharge plans. Patient stated that she resides at home with her daughter and family is present 26/04. I explained the option of setting up home health at discharge: patient stated that she has used home health in the past and does not feel like she needs their services at this time. Patient could potentially discharge later today.
--- NOTE | 2021-11-04 11:33 | HMH.PTEV ---
Physical Therapy Evaluation Rehab PT IP Evaluation Start: 11/04/21 08:44 Freq: .once Status: Active Protocol: Document 11/04/21 11:31 PHOMARSHA (Rec: 11/04/21 11:33 PHORASHVIN [id number]) Subjective/History History History 86 yowf adm to [facility] with anemia , now S/P transfusion. She reports she has 24 hr assist at home and is independent with all mobility using her RW , no steps to enter the home. Subjective Subjective Pt with no c/o this am. Rehab PT IP Eval Objective Appearance Patient Behavior Appropriate Patient Orientation Person,Place,Time Difficulty following instructions none Speech Pattern Clear Ambulation Patient Able to Ambulate Yes Ambulation Observation IP General Gait Pattern Observation No Deviations/Normal Ambulation Distance (feet) 40 Ambulation Assistive Device Rolling Walker Ambulation Ability Independent Balance Ability to Arise Able, uses arms to help Sitting Balance Steady, safe Standing Balance Steady, wide stance Dynamic Sitting Balance Ability Normal Dynamic Standing Balance Ability Good Transfers Bed Transfer Ability Independent Chair Transfer Ability Independent Sit to Stand Bed Transfer Ability Independent Sit to Stand Chair Transfer Ability Independent Rehab PT IP prob,goals,plan Problems Date of Evaluation: 11/04/21 Discharge Plan PT Discharge Plan Pt is currently at baseline for all mobility and has no inpatient therapy needs at this time. She is appropriate to return home once medically stable. G -code Required No Eval Complexity Eval Charge Codes 44379 - Moderate Complexity PHYSICIAN CERTIFICATION: I certify the specified therapy services for Kareen Mallory are required, authorized, and reviewed every 30 days.
--- NOTE | 2021-11-04 12:00 | PC.NURSE ---
1200-pt up to chair at this time, family at beside, pt jasper well
--- NOTE | 2021-11-04 12:06 | PC.NURSE ---
late entry: 1113-Redd, physical therapy at bedside
--- NOTE | 2021-11-04 13:45 | HMH.OTEV ---
OT Inpatient Evaluation Rehab OT IP Evaluation Start: 11/04/21 08:45 Freq: ONCE Status: Complete Protocol: [facility] (Rec: 11/04/21 13:45 [facility] [id number]) Rehab OT IP Assessment Subjective History Pt oriented x 3 on arrival. Pt agreeable to engage in therapy evaluation. Pt was admitted via ED on 11/01/21 due to Anemia/weakness. The following information was copied from history and physical report by physician: this patient presented to the ed - per squad with c/o generalized weakness, states blood sugar at home was over 500. pt's family called squad. pt denies any nausea, vomiting, diarrhea Patient is a 86-year-old female with past medical history of Atrial fibrillation , PAD, CHF, insulin-dependent diabetes presenting to the ED with hyperglycemia. Patient states that for the past 2 days she has been feeling unwell. Patient states that she has been feeling very weak , has not been able to get around as much. Family has been checking her blood sugars which have been elevated. Today fingerstick at home was in the 500s and EMS was called . With EMS fingerstick was very high and patient was brought to the ED for further care. Patient states that other than weakness she has not been having any other symptoms. She denies any abdominal pain, nausea, vomiting. She denies any blood in her stool, dark tarry stool. She denies any chest pain, shortness of breath. pt is 86-year-old with past medical history of insulin- dependent diabetes, PD, CHF,
--- NOTE | 2021-11-04 14:31 | HMH.DCSUM ---
General - General Admission date:: 11/01/21 Discharge date: 11/04/21 HPI HPI: this patient presented to the ed - per squad with c/o generalized weakness, states blood sugar at home was over 500. pt's family called squad. pt denies any nausea, vomiting, diarrhea Patient is a 86-year-old female with past medical history of Atrial fibrillation, PAD, CHF, insulin-dependent diabetes presenting to the ED with hyperglycemia. Patient states that for the past 2 days she has been feeling unwell. Patient states that she has been feeling very weak, has not been able to get around as much. Family has been checking her blood sugars which have been elevated. Today fingerstick at home was in the 500s and EMS was called. With EMS fingerstick was very high and patient was brought to the ED for further care. Patient states that other than weakness she has not been having any other symptoms. She denies any abdominal pain, nausea, vomiting. She denies any blood in her stool, dark tarry stool. She denies any chest pain, shortness of breath. pt is 86-year-old with past medical history of insulin-dependent diabetes, PD, CHF, atrial fibrillation with a pacemaker presenting to the ED with hyperglycemia. Patient is awake, alert, not in acute distress. Patient is medically stable, afebrile. Patient's fingerstick is 432 here. Physical exam is remarkable for suprapubic tenderness with guarding. Differential includes but is not limited to ischemia, DKA, cystitis, pyelonephritis, diverticulosis, diverticulitis. Given this a CBC, CMP, VBG, lactate, UA, CT abdomen pelvis, chest x-ray is performed. Patient's lab work is remarkable for hemoglobin of 4.4, hematocrit of 14. CMP remarkable for a blood glucose of 398, anion gap of 16, creatinine of 1.3. Patient is hyperglycemic but anion gas is not significantly elevated. She is given 1 L IV fluids, as point I do not believe the patient needs to be started on the DKA protocol. Patient is typed and crossed for 2 units of packed red blood cells. She is given 1 unit of packed red blood cells. Her CT abdomen pelvis is remarkable for diverticulosis. Her UA is remarkable for leukocyte esterase, white blood cells, bacteria. She is treated with ceftriaxone. She is discussed with the admitting team and admitted to the hospital for further care and management. Hospital Course Hospital Course: Abnormal Lab Results 11/03/21 11:51: POC Glucose 302 H* 11/03/21 19:16: POC Glucose 466 H* 11/03/21 21:32: POC Glucose 286 H 11/03/21 23:00: POC Glucose 276 H 11/04/21 01:57: Stool Occult Blood Positive A 11/04/21 06:23: POC Glucose 231 H 11/04/21 06:44: RBC 3.67 L, Hgb 9.1 L, Hct 28.8 L, MCV 78.3 L, MCH 24.7 L, MCHC 31.5 L, RDW 20.9 H 11/04/21 06:44: BUN 22 H, Creatinine 1.10 H, Estimated GFR 47 L, Est GFR ( Amer) 57 L, Glucose 179 H D Microbiology 11/01/21 16:38 Urine,Clean Catch Urine Culture - Final Multiple organisms, suggests contamination. Ordering Physician: Regan Salguero MD Date of Service: 11/01/21 Procedure(s): XR chest portable Accession Number(s): [id number] cc: Deisy Gama MD; Marcel Hylton MD~ PROCEDURE INFORMATION: Exam: XR Chest Exam date and time: 11/01/2021 3:46 PM Age: 86 years old Clinical indication: Cough TECHNIQUE: Imaging protocol: XR of the chest. Views: 1 view. COMPARISON: CR XR CHEST PORTABLE 09/27/2021 4:43 PM FINDINGS: Tubes, catheters and devices: Transvenous pacemaker leads in the heart Lungs: Hyperexpanded lung loredo consistent with COPD Pleural spaces: Unremarkable. No pleural effusion. No pneumothorax. Heart/Mediastinum: Unremarkable. No cardiomegaly. Bones/joints: Unremarkable. IMPRESSION: Hyperexpanded lung [place] consistent with COPD Ordering Physician: Regan Salguero MD Date of Service: 11/01/21 Procedure(s): CT abdomen pelvis w con Accession Number(s): [id number] cc: Deisy Gama
--- NOTE | 2021-11-04 15:19 | PC.NURSE ---
[id number] Miguel contacted at this time regarding how long patient needs to hold Xarelto for upon discharge. Myriam ordered for the patient to hold Xarelto until 11/13/21 when she will see Dr. Bermudez for follow up appointment, notified & instructed pt of orders at this time
--- NOTE | 2021-11-04 16:13 | HMH.PHAINT ---
DISCHARGE COUNSELING PROVIDED. PT IS DIRECTED TO HOLD XARELTO UNTIL APPOINTMENT WITH DR BYRD (SURGEON) ON 11/13/21 PER PETE LIPSCOMB APRN
[2021-11-05 12:06] LABS: POC Glucose,Bedside 262 (70-110)
[2021-12-22 13:45] LABS: POC Glucose,Bedside 439 (70-110)
== END 2021-11-04 15:30 | disposition home or self-care (01) | DRG 812 ==
LOC: ER 15:55 → 2ND 17:38
PROVIDERS: Nurse Practitioner Family; Admitting Provider Internal Medicine Adolescent Medicine; Emergency Provider Emergency Medicine; PCP Emergency Medicine; Visit Provider Emergency Medicine
DX: D62 Acute posthemorrhagic anemia (principal); I42.9 Cardiomyopathy, unspecified; E11.65 Type 2 diabetes mellitus with hyperglycemia; I48.91 Unspecified atrial fibrillation; I11.0 Hypertensive heart disease with heart failure; I50.9 Heart failure, unspecified; I25.10 Atherosclerotic heart disease of native coronary artery without angina pectoris; Z95.0 Presence of cardiac pacemaker; K21.9 Gastro-esophageal reflux disease without esophagitis; E11.51 Type 2 diabetes mellitus with diabetic peripheral angiopathy without gangrene; Z95.5 Presence of coronary angioplasty implant and graft; Z79.4 Long term (current) use of insulin; E78.5 Hyperlipidemia, unspecified; Z20.822 Contact with and (suspected) exposure to COVID-19
CPT/HCPCS: 36415; 71045; 74177; 80048; 80053; 81001; 82009; 82272; 82803; 82962; 83605; 85014; 85018; 85025; 86850; 87086; 96365; 96375; 97162; 97166; 99284; C9803; G0328; J0696; P9016; Q9967; U0003; U0005

== ENCOUNTER → 2021-11-05 08:24 | Outpatient (CLI) | payer MEDICARE, MEDICAID, SELFPAY ==
--- NOTE | 2021-11-05 08:56 | FL_ITS ---
FINAL REPORT CLINICAL HISTORY: . FINDINGS: UPPER GI WITH SBFT HISTORY: Anemia PROCEDURE: The patient ingested barium. Effervescent crystals were also administered. Spot and overhead films were obtained. Additional barium was administered for a SBFT. Fluoroscopy time: 1.02 minutes. 20 radiographs were obtained. FINDINGS: No esophageal stricture is identified. There is a small Zenker's diverticulum. There is a moderate sized traction diverticulum of the midesophagus. There is a small hiatal hernia. Gastroesophageal reflux was demonstrated to the thoracic inlet. The stomach has a normal appearance. The stomach empties appropriately. Duodenum is unremarkable. Small bowel loops are normal in caliber. There is normal transition time to the colon. No mucosal abnormality is identified of the bowel. IMPRESSION: Esophageal diverticuli as above. Small sliding-type hiatal hernia with gastroesophageal reflux. Normal small bowel follow-through. Films reviewed , interpreted and dictated by Dr. Gutierrez. Transcribed by Sandip Riddle PA-C. Reviewed, Interpreted and Dictated by Jerod Gutierrez III, MD Transcribed by RENNY Wolfe Authenticated by Jerod Gutierrez III, MD on 11/05/2021 12:38:13 PM [facility]
== END ==
PROVIDERS: PCP Emergency Medicine; Visit Provider Surgery
DX: D64.9 Anemia, unspecified (principal)
CPT/HCPCS: 74246; 74248

== ENCOUNTER → 2021-11-17 13:51 | Outpatient (CLI) | payer MEDICARE, MEDICAID, SELFPAY ==
[2021-11-17 14:17] LABS: Hematocrit 30.2 % (37.0-47.0); Hemoglobin 9.4 g/dL (12.2-16.2)
== END ==
PROVIDERS: PCP Emergency Medicine; Visit Provider Surgery
DX: D64.9 Anemia, unspecified (principal)
CPT/HCPCS: 36415; 85014; 85018

== ENCOUNTER → 2021-12-02 07:15 | Outpatient (CLI) | payer MEDICARE, MEDICAID, SELFPAY ==
--- NOTE | 2021-12-02 | CA_ITS ---
APPROVED REPORT Exam: Pharmacologic Technologist: Abril Meek Ht: 5 ft 3 in Wt: 126 lbs BSA: 1.59 m2 HR: 70 bpm BP: 142/65 mmHg Indications: CArdiac CLEARANCE Medical History Medications: Omeprazole,,,,, Levothyroxine,,,,, Aspirin,,,,, Verapamil,,,,, Lasix,,,,, Zoloft,,,,, INSULIN,,,,, Lipitor,,,,, Digoxin,,,,, BisOPROLOL,,,,, Imdur,,,,, Mirtazapine,,,,, Stress Test Details Test: LEXISCAN HR Resting HR: 80 bpm Max Heart Rate (APMHR): 136.070590 bpm Max HR Achieved: 80 bpm Target HR (85% APMHR): 115.587791 bpm % of APMHR: 58.82 Recovery HR: 70 bpm BP Resting BP: 142.0/65.0 mmHg Max BP: 142.0/65.0 mmHg Recovery BP: 132.0/48.0 mmHg ECG Resting ECG: A-V sequential paced rhythm with occassional [place] QRS complex Clinical Exercise duration: 04:00 min Highest Stage Achieved: Stress ECG Conclusion Symptoms: Mild shortness of air and malaise. No chest pain. Arrhythmias/Ectopy: Periods of her [place] rhythm during and after Lexiscan stress. ST-T Changes: No significant changes. Conclusion: Non-diagnostic Lexiscan stress. Myoview images reported separately. Test Summary RECOVERY 05:00 . . 70 . 132/ 48 . . REST 04:16 . . 80 . 142/ 65 . . Stage 1 . . . . . . . Myoview Injected Stage 1 01:00 . . 70 . . . . Stage 2 01:00 . . 73 . . . . Stage 3 01:00 . . 70 . 131/ 52 . . Stage 4 01:00 . . 72 . 128/ 50 . Stop exercise at 04:00 RECOVERY 01:00 . . 70 . 125/ 51 . . RECOVERY 02:00 . . 70 . 117/ 56 . . RECOVERY 03:00 . . 70 . 117/ 56 . . RECOVERY 04:00 . . 70 . 132/ 51 . . RECOVERY 05:00 . . 70 . 132/ 48 . . RECOVERY 05:14 . . 70 . 132/ 48 . . Electronically signed by : Luis Wylie MD 12/02/2021 19:21:13
--- NOTE | 2021-12-02 07:16 | NM_ITS ---
APPROVED REPORT Exam: Nuclear Stress Test Indication: CAD, Chest pain, SOB, Fatigue, Pacemaker, HTN, DM Patient Location: Outpatient Stress Tech: Abril Meek NM Tech:Hannah Reid, ARRT, RT (R)(N) Ht: 5 ft 3 in Wt: 126 lbs Bra Size: B HR: 80 bpm BP: 142/65 mmHg BSA: 1.59 m2 BMI: 22.3 History: CAD, Chest pain, SOB, Fatigue, Pacemaker, HTN, DM Procedure: Patient received a 0.4 mg of intravenous Lexiscan, resting heart rate 80 bpm, resting blood pressure 142/65 mmHg, with Lexiscan maximum heart rate achived was 80 bpm which is Less than 85 % of the maximum predicted heart rate and blood pressure was 142/65 mmHg. With Lexiscan, patient denied any complaint of chest pain. Electrocardiogram Resting electrocardiogram showed electronically paced rhythm, with Lexiscan there is less than 1.[address] segment depression noted from the baseline EKG. The EKG portion of the Lexiscan is nondiagnostic. Cardiac Stress and Resting SPECT Images: Cardiac Stress and Resting SPECT images were obtained using technetium 99m Myoview 32.8 mCi stress and 10.49 mCi at rest. Patient unable to lay on stomach for prone images. Gated SPECT for analysis of segmental wall motion and calculation of the ejection fraction also done. Cardiac stress and resting SPECT images show uniform myocardial activity without segmental perfusion abnormality, computer derived ejection fraction is 63% with no regional wall motion abnormality, right ventricle is mildly enlarged with normal contractility. Conclusion: 1. The EKG portion of the Lexiscan is nondiagnostic. 2. No scintigraphic evidence of reversible ischemia seen, compared right ejection fraction 63% with no regional wall motion abnormality, right ventricle is mildly enlarged with normal contractility. 3. Normal Lexiscan Myoview study. Electronically signed by : Luis Wylie MD 12/02/2021 19:32:50
--- NOTE | 2021-12-02 08:28 | HMH.ITSHM ---
Current Home Medications as stated by this patient Kareen Mallory or housing management representative. []SERTRALINE ONDANSETRON ISOSORBIDE INSULIN DOCUSATE BISOPROLOL ATORVASTATIN ASA VERAPAMIL XARELTO OMEPRAZOLE MULTIVITAMIN MIRTAZAPINE MIRABEGRON LEVOTHYROXINE FUROSEMIDE FLUTICASONE DIGOXIN VITAMIN B12 CETIRIZINE
== END ==
PROVIDERS: PCP Emergency Medicine; Visit Provider Nurse Practitioner Family
DX: E78.2 Mixed hyperlipidemia (principal); I11.0 Hypertensive heart disease with heart failure; I25.10 Atherosclerotic heart disease of native coronary artery without angina pectoris; I27.20 Pulmonary hypertension, unspecified; I42.9 Cardiomyopathy, unspecified; I48.20 Chronic atrial fibrillation, unspecified; I50.32 Chronic diastolic (congestive) heart failure
CPT/HCPCS: 78452; 93017; A9502; J2785

== ENCOUNTER → 2021-12-31 11:49 | Outpatient (CLI) | payer MEDICARE, MEDICAID, SELFPAY ==
[2021-12-31 12:26] LABS: Basophils % 0.5 % (0.1-2.0); Eosinophils # 0.4 K/mm3 (0.0-0.4); Eosinophils % 5.9 % (0.1-12.0); Hematocrit 31.5 % (37.0-47.0); Hemoglobin 10.4 g/dL (12.2-16.2); Lymphocytes # 1.3 K/mm3 (0.7-4.5); Lymphocytes % 18.2 % (10-50); Mean Corpuscular Hemoglobin 24.3 pg (27.0-31.2); Mean Corpuscular Volume 73.8 fl (81-99); Mean Platelet Volume 9.4 fl (7.4-10.4); Monocytes # 0.3 K/mm3 (0.1-1.0); Monocytes % 3.9 % (1.7-9.3); Neutrophils # 5.3 K/mm3 (1.8-7.8); Neutrophils % 71.4 % (37.0-80.0); Platelet Count 246 K/mm3 (142-424); Red Blood Count 4.27 M/mm3 (4.20-5.40); Red Cell Distribution Width 20.8 % (11.5-17.5); White Blood Count 7.4 K/mm3 (4.8-10.8)
== END ==
PROVIDERS: PCP Emergency Medicine; Visit Provider Emergency Medicine
DX: E11.10 Type 2 diabetes mellitus with ketoacidosis without coma (principal); R19.5 Other fecal abnormalities; Z01.812 Encounter for preprocedural laboratory examination; Z11.52 Encounter for screening for COVID-19; Z12.11 Encounter for screening for malignant neoplasm of colon; Z79.4 Long term (current) use of insulin
CPT/HCPCS: 36415; 85025; C9803; U0003; U0005

== ENCOUNTER 2022-01-02 09:11 | Day surgery (SDC) | payer MEDICARE, MEDICAID, SELFPAY ==
[2021-12-30 09:24] VITALS: BMI 22.3
[2022-01-02] VITALS (8 sets, daily range): BP systolic 114–138; BP diastolic 57–78; PULSE 65–71; RESP 18; TEMP 36.4–36.6; O2SAT 99–100
--- NOTE | 2022-01-02 10:11 | HMH.GSHP ---
HPI HPI: Patient is an 86-year-old female who presents for colonoscopy. She had a recent inpatient hospitalization and surgical consultation. She has multiple medical conditions including, but not limited to, chronic renal insufficiency, diabetes mellitus, history of cardiogenic shock, congestive heart failure, coronary artery disease, atrial fibrillation, sick sinus syndrome with cardiac pacemaker, pulmonary hypertension on Xarelto. She had been having some generalized weakness and elevated blood sugars at home. She was brought to the emergency department on 11/01/21 by EMS with weakness and elevated blood glucose. She denied blood in her stool or symptoms consistent with melena. Physical examination in the emergency department revealed some suprapubic tenderness. Blood work revealed hemoglobin of 4.4 with hematocrit of 14. She did have a CT scan done which was remarkable for diverticulosis and moderate-sized right pleural effusion. She had been transfused 3 units packed red blood cells. Of note, I had seen the patient in the office a few months ago for possible colonoscopy. Due to the fact that the patient had enterotoxigenic E. coli in April I had plan for repeat stool diarrhea panel and possible colonoscopy. She did not follow-up at that time. She did have colon[place] [address] Christiano Beverly which revealed 15 mm polyp and diverticulosis. Dr. Beverly did repeat colonoscopy in 2001 when she had a couple polyps and diverticulosis. Dr. Golden did a colonoscopy in 2004 for rectal bleeding which reportedly only revealed diverticulosis. Patient denies symptoms of hematochezia or melena. Of note, the patient previously had laryngoscopy with esophageal dilatation by Dr. Mcginnis in 2004 and 2005. She states that based on what she was told she could not undergo another esophagoscopy interestingly. I had her undergo an upper GI with small bowel follow-through as an inpatient. This reveals Zenker's diverticulum and mid esophageal traction diverticulum with a small hiatal hernia. [facility] History I have reviewed the patient's past medical history: Yes Medical History: Reports:: Arrhythmia, Atrial Fibrillation, Cardiomyopathy, Congestive Heart Failure, Coronary Artery Disease, Diabetes Mellitus Type 2, Gastroesophageal Reflux Disease(GERD), Hyperlipidemia, Hypertension, Internal Pacemaker, Peripheral Artery Disease Denies:: Cancer, Diabetes Mellitus Type 1, MRSA, Seizures *Have you ever received a pneumonia vaccine?: No *Have you received a flu vaccine this season?: Yes Other Medical History: Reports: Anemia, Arthritis, Cataracts, Other. Denies: Blood Transfusion Reaction Laterality Cases: Bilateral: Cataract, Tonsillectomy Other Surgeries: Yes: Appendectomy, Cardiac Catheterization (01/28/18 1 stent), Cholecystectomy, Colonoscopy, EGD, Hysterectomy-Total, Pacemaker, Other Amputation: No Fractures: No - *Social History Last grade of school completed: 7th or 8th Smoking Status: Never smoker Alcohol Intake: never Alcohol Intake Frequency:: other *Occupational Status:: disabled Housing: house Household Members: family *Travel in the last 8 weeks: None Family Hx:: Cancer, Diabetes Review of Systems - Review of Systems Review of systems:: pertinent systems reviewed and negative unless documented below Meds Home Medications Medication Instructions Recorded Confirmed Type aspirin 81 mg tablet,delayed 81 mg PO HS 10/05/17 01/02/22 History release atorvastatin 10 mg tablet 10 mg PO HS 10/05/17 01/02/22 History sertraline 100 mg tablet 50 mg PO DAILY 10/05/17 01/02/22 History Mirabegron [Myrbetriq] 25 mg PO HS 11/18/20 01/02/22 History Mirtazapine 7.5 mg PO HS 11/18/20 01/02/22 History isosorbide mononitrate 30 mg 30 mg PO DAILY 07/29/21 01/02/22 History tablet,extended release 24 hr Cyanocobalamin (Vitamin B-12) 2,500 mcg SL BID 08/18/21 01/02/22 History [Vitamin B-12] Multivitamin/Iron/Folic Acid 1 each PO DAILY 08/18/21 01/02/22 H
--- NOTE | 2022-01-02 10:20 | P.PN_ITS ---
[facility] Anesthesia Checklist - Patient Identification Patient Identification: Arm Band, Verbal (Name & ) - Structural Data Admitted From: Home Planned Operative Procedure/s: Colonoscopy Consent for Planned Operative Procedure(s) Verified: Yes Verified Documents: Surgical Consent - Additional verifications Anesthesia Reactions: No Hx Blood Transfusions: Yes Blood Transfusion Reaction: No - Airway Assessment C-Spine Mobility Assessed: Yes TMJ Mobility Assessed: Yes Dentition: Dentures-good fit - Neurological Assessment Level of Consciousness: Awake, Alert, Appropriate - Anesthesia Plan Anesthesia Risk discussed: Yes ASA Class: III Anesthesia Type: MAC [facility] History I have reviewed the patient's past medical history: Yes Medical History: Reports:: Arrhythmia, Atrial Fibrillation, Cardiomyopathy, Congestive Heart Failure, Coronary Artery Disease, Diabetes Mellitus Type 2, Gastroesophageal Reflux Disease(GERD), Hyperlipidemia, Hypertension, Internal Pacemaker, Peripheral Artery Disease Denies:: Cancer, Diabetes Mellitus Type 1, MRSA, Seizures *Have you ever received a pneumonia vaccine?: No *Have you received a flu vaccine this season?: Yes Other Medical History: Reports: Anemia, Arthritis, Cataracts, Other. Denies: Blood Transfusion Reaction Anesthesia experience/problems:: none Laterality Cases: Bilateral: Cataract, Tonsillectomy Other Surgeries: Yes: Appendectomy, Cardiac Catheterization (01/28/18 1 stent), Cholecystectomy, Colonoscopy, EGD, Hysterectomy-Total, Pacemaker, Other Amputation: No Fractures: No - *Social History Last grade of school completed: 7th or 8th Smoking Status: Never smoker Alcohol Intake: never Alcohol Intake Frequency:: other Substance Use Type: denies use *Occupational Status:: disabled Housing: house Household Members: family *Travel in the last 8 weeks: None Family Hx:: Cancer, Diabetes
--- NOTE | 2022-01-02 11:55 | HMH.SCOPE ---
- Procedure: Date: 01/02/22 Patient Date of :: 1935 Procedure Performed:: Total colonoscopy with numerous polypectomy using snare, and biopsy forceps Indications:: Patient is an 86-year-old female who presents for colonoscopy. She had a recent inpatient hospitalization and surgical consultation. She has multiple medical conditions including, but not limited to, chronic renal insufficiency, diabetes mellitus, history of cardiogenic shock, congestive heart failure, coronary artery disease, atrial fibrillation, sick sinus syndrome with cardiac pacemaker, pulmonary hypertension on Xarelto. She had been having some generalized weakness and elevated blood sugars at home. She was brought to the emergency department on 11/01/21 by EMS with weakness and elevated blood glucose. She denied blood in her stool or symptoms consistent with melena. Physical examination in the emergency department revealed some suprapubic tenderness. Blood work revealed hemoglobin of 4.4 with hematocrit of 14. She did have a CT scan done which was remarkable for diverticulosis and moderate-sized right pleural effusion. She had been transfused 3 units packed red blood cells. Of note, I had seen the patient in the office a few months ago for possible colonoscopy. Due to the fact that the patient had enterotoxigenic E. coli in April I had plan for repeat stool diarrhea panel and possible colonoscopy. She did not follow-up at that time. She did have colonoscopy in [address] Christiano Beverly which revealed 15 mm polyp and diverticulosis. Dr. Beverly did repeat colonoscopy in 2001 when she had a couple polyps and diverticulosis. Dr. Golden did a colonoscopy in 2004 for rectal bleeding which reportedly only revealed diverticulosis. Patient denies symptoms of hematochezia or melena. Of note, the patient previously had laryngoscopy with esophageal dilatation by Dr. Mcginnis in 2004 and 2005. She states that based on what she was told she could not undergo another esophagoscopy interestingly. I had her undergo an upper GI with small bowel follow-through as an inpatient. This reveals Zenker's diverticulum and mid esophageal traction diverticulum with a small hiatal hernia. Of note, her recent hemoglobin was 10.4. She has been eating a healthier iron rich diet. Performing Provider:: Jerdo Bermudez MD Referring Provider:: Elmer Hylton MD Sedation:: MAC sedation Procedure:: Patient was taken to endoscopy procedure room. She was positioned in lateral decubitus position. Adequate intravenous sedation was achieved with anesthesia titration of propofol. Variable stiffness Olympus colonoscope was inserted via the anus. It was advanced to the cecum with some minor difficulty due to significant redundancy and floppiness of the colon. Ileocecal valve and appendiceal orifice were identified. There was a nonbleeding AVM in the cecum. Please note that upon advancement of the colonoscope there was a small polyp removed with cold snare at the hepatic flexure. In the cecum there was a tiny diminutive polyp in the periappendiceal location removed with biopsy forceps. There was additional flat sessile polyp within the cecum removed with cutting snare. In the ascending colon there was a couple of moderate-sized polyps removed with biopsy and cold snare. There was some minor oozing from the snare polypectomy site and residual polyp was removed with hot biopsy and Hemoclip x2 was deployed for hemostasis. In the proximal transverse colon there were a couple of moderate sized polyps removed with hot snare. In the mid transverse colon there were 3 moderate-sized polyps removed with hot snare. Hemoclip x2 was placed at the polypectomy site that revealed some minor oozing. In the descending colon there was a tiny polyp removed with biopsy forceps. Proximal sigmoid colon there was a moderate polyp removed with hot snare. In the distal sigmoid colon there is a small polyp removed wi
[2022-07-02 10:58] LABS: POC Glucose,Bedside 90 (70-110)
== END 2022-01-02 13:40 | disposition home or self-care (01) ==
LOC: OUTP 09:14
PROVIDERS: PCP Emergency Medicine; Visit Provider Surgery
PROC: 0DJD8ZZ Inspection of Lower Intestinal Tract, Via Natural or Artificial Opening Endoscopic (ICD-10-PCS; principal; 2022-01-02 10:30)
DX: Q27.39 Arteriovenous malformation, other site (principal); Z86.010 Personal history of colon polyps; K63.5 Polyp of colon; K57.30 Diverticulosis of large intestine without perforation or abscess without bleeding; D64.9 Anemia, unspecified; I73.9 Peripheral vascular disease, unspecified; E78.5 Hyperlipidemia, unspecified; I11.0 Hypertensive heart disease with heart failure; I48.91 Unspecified atrial fibrillation; I42.9 Cardiomyopathy, unspecified; I50.9 Heart failure, unspecified; I25.10 Atherosclerotic heart disease of native coronary artery without angina pectoris; E11.9 Type 2 diabetes mellitus without complications; K21.9 Gastro-esophageal reflux disease without esophagitis
CPT/HCPCS: 45380; 45385; 82962; 88305; J2704

== ENCOUNTER → 2022-01-20 11:55 | Outpatient (CLI) | payer MEDICARE, MEDICAID, SELFPAY ==
[2022-01-20 18:49] LABS: Basophils # 0.1 K/mm3 (0-0.2); Basophils % 0.6 % (0.1-2.0); Eosinophils # 0.5 K/mm3 (0.0-0.4); Eosinophils % 5.6 % (0.1-12.0); Hematocrit 33.3 % (37.0-47.0); Hemoglobin 10.7 g/dL (12.2-16.2); Lymphocytes # 1.5 K/mm3 (0.7-4.5); Lymphocytes % 17.8 % (10-50); Mean Corpuscular HGB Conc 32.2 g/dL (31.8-35.4); Mean Corpuscular Hemoglobin 24.8 pg (27.0-31.2); Mean Corpuscular Volume 76.8 fl (81-99); Mean Platelet Volume 8.5 fl (7.4-10.4); Monocytes # 0.4 K/mm3 (0.1-1.0); Monocytes % 4.9 % (1.7-9.3); Neutrophils # 6.2 K/mm3 (1.8-7.8); Platelet Count 274 K/mm3 (142-424); Red Blood Count 4.33 M/mm3 (4.20-5.40); Red Cell Distribution Width 20.6 % (11.5-17.5); White Blood Count 8.7 K/mm3 (4.8-10.8)
[2022-01-20 19:20] LABS: Anion Gap 17.4 mEq/L (5-15); Blood Urea Nitrogen 22 mg/dl (7-17); Calcium 10.1 mg/dl (8.4-10.2); Carbon Dioxide 27 mmol/L (22.0-30.0); Chloride 102 mmol/L (98-107); Estimated Glomerular Filt Rate 39 ml/min (>60); GFR (African American) 47 ML/MIN (>60); Glucose 158 mg/dl (74-100); Potassium 5.4 mmoL/L (3.5-5.1); Sodium 141 mmol/L (136-145)
== END ==
PROVIDERS: PCP Emergency Medicine; Visit Provider Emergency Medicine
DX: R42 Dizziness and giddiness (principal)
CPT/HCPCS: 80048; 85025

== ENCOUNTER → 2022-01-22 16:34 | Outpatient (CLI) | payer MEDICARE, MEDICAID, SELFPAY | PROVIDERS: PCP Emergency Medicine; Visit Provider Emergency Medicine | DX: R53.83 Other fatigue (principal) | CPT/HCPCS: 87086 ==

== ENCOUNTER → 2022-04-22 06:18 | Outpatient (CLI) | payer MEDICARE, MEDICAID, SELFPAY ==
[2022-04-21 20:34] LABS: Basophils % 0.5 % (0.1-2.0); Eosinophils # 0.3 K/mm3 (0.0-0.4); Eosinophils % 4.1 % (0.1-12.0); Hematocrit 31.1 % (37.0-47.0); Hemoglobin 10.1 g/dL (12.2-16.2); Lymphocytes # 1.3 K/mm3 (0.7-4.5); Lymphocytes % 17.1 % (10-50); Mean Corpuscular HGB Conc 32.6 g/dL (31.8-35.4); Mean Corpuscular Volume 76.7 fl (81-99); Mean Platelet Volume 7.8 fl (7.4-10.4); Monocytes # 0.4 K/mm3 (0.1-1.0); Monocytes % 5.3 % (1.7-9.3); Neutrophils # 5.6 K/mm3 (1.8-7.8); Neutrophils % 72.9 % (37.0-80.0); Platelet Count 226 K/mm3 (142-424); Red Blood Count 4.05 M/mm3 (4.20-5.40); Red Cell Distribution Width 15.4 % (11.5-17.5); White Blood Count 7.7 K/mm3 (4.8-10.8)
[2022-04-21 20:35] LABS: Amphetamine/Metha Screen,Urine Negative ng/ml (<1000); Barbiturates Screen,Urine Negative ng/ml (<200)
[2022-04-21 20:36] LABS: Benzodiazepines Screen,Urine Negative ng/ml (<200)
[2022-04-21 20:37] LABS: Cannabinoid Screen,Urine Negative ng/ml (<50); Cocaine Screen,Urine Negative ng/ml (<300)
[2022-04-21 20:38] LABS: Methadone Screen,Urine Negative ng/ml (<300)
[2022-04-21 20:39] LABS: Opiate Screen,Urine Negative ng/ml (<300); Phencyclidine Screen,Urine Negative ng/ml (<25)
[2022-04-21 21:02] LABS: Alanine Aminotransferase 20 U/L (12-78); Albumin/Globulin Ratio 1.3 (1.1-1.8); Alkaline Phosphatase 128 U/L (38-126); Anion Gap 14.7 mEq/L (5-15); Aspartate Amino Transferase 33 U/L (14-36); Bilirubin,Total 0.3 mg/dl (0.2-1.3); Blood Urea Nitrogen 20 mg/dl (7-17); Calcium 9.6 mg/dl (8.4-10.2); Carbon Dioxide 28 mmol/L (22.0-30.0); Chloride 101 mmol/L (98-107); Chol/HDL Ratio 3.3 (1-3.5); Cholesterol 111 mg/dl (140-200); Estimated Glomerular Filt Rate 47 ml/min (>60); GFR (African American) 57 ML/MIN (>60); Glucose 196 mg/dl (74-100); HDL Cholesterol 34 mg/dl (40-60); Potassium 4.7 mmoL/L (3.5-5.1); Sodium 139 mmol/L (136-145); Triglycerides 129 mg/dl (30-150); VLDL Cholesterol 26 mg/dL (0-40)
[2022-04-21 21:14] LABS: Direct LDL Cholesterol 50.13 mg/dL (100-129)
[2022-04-21 21:17] LABS: Free T4 (Free Thyroxine) 1.43 ng/dl (0.78-2.19)
[2022-04-21 21:18] LABS: Hemoglobin A1C 9.5 % (4.0-6.0)
[2022-04-30 02:25] LABS: 1,25 Dihydroxy Vitamin D 26 pg/mL (.); 1,25-Dihydroxy, Vitamin D-2 <10 pg/mL (.); 1,25-Dihydroxy, Vitamin D-3 25 pg/mL (.)
== END ==
PROVIDERS: PCP Emergency Medicine; Visit Provider Emergency Medicine
DX: N28.9 Disorder of kidney and ureter, unspecified (principal); R35.0 Frequency of micturition; E11.10 Type 2 diabetes mellitus with ketoacidosis without coma; R82.90 Unspecified abnormal findings in urine; M25.511 Pain in right shoulder; Z79.4 Long term (current) use of insulin
CPT/HCPCS: 80053; 80061; 80305; 82652; 83036; 84439; 84443; 85025; 87086

== ENCOUNTER 2022-06-05 21:24 | Observation (INO) | payer MEDICARE, MEDICAID, SELFPAY ==
[2022-06-05 21:24] VITALS: BP 118/64; PULSE 70; RESP 18; TEMP 36.9; O2SAT 100; BMI 21.6
--- NOTE | 2022-06-05 21:33 | CT_ITS ---
PROCEDURE INFORMATION: Exam: CT Abdomen And Pelvis With Contrast Exam date and time: 06/05/2022 10:10 PM Age: 86 years old Clinical indication: Abdominal pain; Generalized TECHNIQUE: Imaging protocol: Computed tomography of the abdomen and pelvis with contrast. Radiation optimization: All CT scans at this facility use at least one of these dose optimization techniques: automated exposure control; mA and/or kV adjustment per patient size (includes targeted exams where dose is matched to clinical indication); or iterative reconstruction. Contrast material: ISOVUE; Contrast volume: 75 ml; Contrast route: IV; COMPARISON: CT ABDOMEN PELVIS W CON 11/01/2021 4:44 PM FINDINGS: Diaphragm: Small hiatal hernia. Liver: Normal. No mass. Gallbladder and bile ducts: No calcified stones. No ductal dilation. Pancreas: Atrophic pancreas. Spleen: No splenomegaly. Adrenal glands: No mass. Kidneys and ureters: Renal cysts measuring up to 2.8 cm. No hydronephrosis. Stomach and bowel: Diverticulosis coli without evidence for diverticulitis. Suspect mild rectal wall thickening. Appendix: No evidence of appendicitis. Intraperitoneal space: No free air. No significant fluid collection. Vasculature: Calcified atherosclerosis. No aneurysm. Lymph nodes: No enlarged lymph nodes. Urinary bladder: No acute abnormality. Reproductive: No acute abnormality. Bones/joints: S shaped curvature of the spine. No fracture. Soft tissues: No soft tissue swelling. IMPRESSION: 1. Small hiatal hernia. 2. Diverticulosis coli without evidence for diverticulitis. 3. Suspect mild rectal wall thickening which is nonspecific and may be infectious/inflammatory however malignancy should be clinically excluded. 4. Other chronic and incidental findings described above.
[2022-06-05 21:41] LABS: Coronavirus 19, PCR Not Detected (NotDetected); Influenza A, PCR Not Detected (NotDetected); Influenza B, PCR Not Detected (NotDetected)
[2022-06-05 21:41] LABS: Basophils % 0.2 % (0.1-2.0); Eosinophils # 0.1 K/mm3 (0.0-0.4); Eosinophils % 0.6 % (0.1-12.0); Hematocrit 31.3 % (37.0-47.0); Lymphocytes # 0.9 K/mm3 (0.7-4.5); Lymphocytes % 6.4 % (10-50); Mean Corpuscular HGB Conc 31.8 g/dL (31.8-35.4); Mean Corpuscular Hemoglobin 25.3 pg (27.0-31.2); Mean Corpuscular Volume 79.5 fl (81-99); Mean Platelet Volume 7.6 fl (7.4-10.4); Monocytes # 0.4 K/mm3 (0.1-1.0); Monocytes % 2.7 % (1.7-9.3); Neutrophils # 13.2 K/mm3 (1.8-7.8); Neutrophils % 90.1 % (37.0-80.0); Platelet Count 251 K/mm3 (142-424); Red Blood Count 3.94 M/mm3 (4.20-5.40); Red Cell Distribution Width 16.7 % (11.5-17.5); White Blood Count 14.7 K/mm3 (4.8-10.8)
--- NOTE | 2022-06-05 21:44 | HMH.EDABDPAI ---
Discharge Plan Disposition Patient Disposition: Admitted as Observation Chief Complaint: Abdominal Pain Prescriptions Prescriptions: No Action aspirin [Adult Low Dose Aspirin] 81 mg tablet,delayed release (DR/EC) 81 mg PO HS atorvastatin 10 mg tablet 10 mg PO HS levofloxacin 500 mg tablet 500 mg PO DAILY 5 Days Qty: 5 0RF cetirizine 10 mg tablet See Rx Instructions .Route .COMPLEX 90 Days Qty: 90 0RF Rx Instructions: TAKE ONE TABLET BY MOUTH EVERY DAY AT BEDTIME digoxin 125 mcg (0.125 mg) tablet 125 mcg PO DAILY Qty: 90 0RF Rx Instructions: 125 mcg PO; docusate sodium 100 mg capsule 100 mg PO HS Qty: 30 3RF fluticasone propionate 50 mcg/actuation spray,suspension 1 spray INTRANASAL DAILY Qty: 16 0RF Rx Instructions: administer into each nostril furosemide 40 mg tablet See Rx Instructions .ROUTE .COMPLEX Qty: 30 5RF Dose Instruction: TAKE 1/2 TABLET BY MOUTH DAILY Rx Instructions: TAKE 1/2 TABLET BY MOUTH DAILY isosorbide mononitrate 30 mg tablet extended release 24 hr See Rx Instructions .ROUTE .COMPLEX Qty: 90 3RF Dose Instruction: TAKE ONE TABLET BY MOUTH EVERY MORNING FOR heart Rx Instructions: TAKE ONE TABLET BY MOUTH EVERY MORNING FOR heart levothyroxine 50 mcg tablet 50 mcg PO DAILY Qty: 90 0RF Rx Instructions: TAKE ONE TABLET BY MOUTH EVERY DAY FOR THYROID omeprazole 40 mg capsule,delayed release(DR/EC) 40 mg PO DAILY 90 Days Qty: 90 0RF Rx Instructions: TAKE ONE CAPSULE BY MOUTH EVERY DAY ondansetron HCl 4 mg tablet 4 mg PO TID PRN (Reason: Nausea/vomiting) 90 Days Qty: 270 0RF verapamil 180 mg capsule,ext rel. pellets 24 hr See Rx Instructions .ROUTE .COMPLEX Qty: 90 1RF Dose Instruction: TAKE ONE CAPSULE BY MOUTH EVERY DAY FOR heart rate Rx Instructions: TAKE ONE CAPSULE BY MOUTH EVERY DAY FOR heart rate (DME) Easy Touch Test Strip Strip See Rx Instructions .Route Qty: 100 2RF Rx Instructions: Check sugar twice daily or As directed insulin glargine 100 unit/mL (3 mL) insulin pen 32 unit SQ HS Qty: 15 3RF insulin lispro protamin-lispro 100 unit/mL (75-25) insulin pen 12 unit SQ BID Qty: 15 3RF (DME) pen needle, diabetic [Advocate Pen Needle] 31 gauge x 3/16 needle See Rx Instructions .ROUTE .COMPLEX Qty: 100 12RF Dose Instruction: USE FOR insulin injection THREE TIMES DAILY DIRECTED Rx Instructions: USE FOR insulin injection THREE TIMES DAILY DIRECTED sertraline 100 mg tablet See Rx Instructions .ROUTE .COMPLEX Qty: 90 0RF Dose Instruction: TAKE 1/2 TABLET BY MOUTH EVERY DAY FOR mood Rx Instructions: TAKE 1/2 TABLET BY MOUTH EVERY DAY FOR mood mirtazapine 7.5 mg tablet See Rx Instructions .ROUTE .COMPLEX Qty: 90 0RF Dose Instruction: TAKE ONE TABLET BY MOUTH EVERY DAY AT BEDTIME FOR SLEEP Rx Instructions: TAKE ONE TABLET BY MOUTH EVERY DAY AT BEDTIME FOR SLEEP mirabegron 25 MG tablet extended release 24 hr 25 mg PO HS Label Comments: TAKE ONE TABLET BY MOUTH EVERY DAY cyanocobalamin (vitamin B-12) 2,500 MCG tablet, sublingual 2,500 mcg SL BID [id number] acid 1 EACH tablet 1 each PO DAILY bisoprolol fumarate 5 MG tablet 5 mg PO DAILY peg 3350-electrolytes 4,000 ML recon soln 240 ml PO Q10M Rx Instructions: until fecal effluent is clear Discharge ED Provider: Marcel Hylton Abdominal Pain HPI General Chief Complaint: Abdominal Pain Stated Complaint: abd pain Time Seen by Provider: 06/05/22 21:44 Mode of Arrival: EMS Source of Information: Patient, Relative and Medical Record Limitations: No Limitations Description of Symptoms (Recalled from ER Triage Doc. by RN): Pt reports abdominal pain and N/V starting today not long after eating [employer] today. She describes abd pain as a cramping . Last BM was this
[2022-06-05 21:45] LABS: MANUAL DIFFERENTIAL MANUAL DIFFERENTIAL (MANUAL DIFF)
[2022-06-05 21:46] LABS: Chloride 102 mmol/L (98-107)
[2022-06-05 21:47] LABS: Potassium 3.9 mmoL/L (3.5-5.1); Sodium 140 mmol/L (136-145)
[2022-06-05 21:50] LABS: Alanine Aminotransferase 25 U/L (12-78); Albumin Level 4.2 g/dl (3.5-5.0); Albumin/Globulin Ratio 1.3 (1.1-1.8); Alkaline Phosphatase 147 U/L (38-126); Amylase 54 U/L (30-110); Anion Gap 15.9 mEq/L (5-15); Aspartate Amino Transferase 41 U/L (14-36); Blood Urea Nitrogen 27 mg/dl (7-17); Calcium 9.6 mg/dl (8.4-10.2); Carbon Dioxide 26 mmol/L (22.0-30.0); Creatinine Clearance Estimated 30 mL/min (50-200); Estimated Glomerular Filt Rate 43 ml/min (>60); GFR (African American) 52 ML/MIN (>60); Globulin 3.3 g/dL (1.3-3.2); Glucose 179 mg/dl (74-100); Total Protein,Serum 7.5 g/dl (6.3-8.2)
[2022-06-05 22:00] LABS: Anisocytosis 1+; Hypochromasia 1+; Lymphocytes % 7 % (10-50); Microcytosis 2+; Monocytes % 1 % (2-9); Neutrophils % 83 % (42-76); Platelet Estimate Normal; Total Cells Counted 100
[2022-06-05 22:02] LABS: Bilirubin,Total 0.1 mg/dl (0.2-1.3); Lipase < 10 U/L (23-300)
[2022-06-05 22:04] LABS: C-Reactive Protein 4.3 mg/L (0-4)
[2022-06-05 22:09] LABS: Erythrocyte Sedimentation Rate 103 mm/hr (0-30)
[2022-06-05 22:13] LABS: Microscopic, Urine URINE MICROSCOPIC (MICROSCOPIC)
[2022-06-05 22:15] LABS: Appearance,Urine CLEAR (Clear); Bilirubin,Urine Negative (Negative); Blood, Urine Negative (Negative); Color,Urine YELLOW (Yellow); Glucose,Urine (UA) Negative (Negative); Ketones,Urine Negative (Negative); Leukocyte Esterase,Urine 1+ (Negative); Nitrate,Urine Negative (Negative); PH,Urine 5.5 (5.0-8.5); Protein,Urine Negative (Negative); Specific Gravity, Urine 1.015 (1.005-1.030); Urobilinogen,Urine 0.2 EU/dl (0.2)
[2022-06-05 22:35] LABS: Bacteria,Urine 3+ /lpf; RBC,Urine Occasional #/hpf (0-3)
[2022-06-05 22:43] LABS: Procalcitonin 0.108 ng/mL (0.0-2.0)
--- NOTE | 2022-06-06 00:17 | PC.NURSE ---
PATIENT ADMITTED OBSERVATION TO [address] HANLEY WITH DX OF GASTROENTERITIS.
[2022-06-06 00:29] LABS: Acetone, Serum (Rapid) None Detected (None Detect)
[2022-06-06 00:30] VITALS: BP 140/70; PULSE 81; O2SAT 99
[2022-06-06 01:14] VITALS: BP 140/70; PULSE 79; RESP 18; TEMP 36.6; O2SAT 98
[2022-06-06 01:33] VITALS: O2SAT 96
--- NOTE | 2022-06-06 01:33 | PC.NURSE ---
PT ARRIVED TO FLOOR VIA W/C @ [id number]
[2022-06-06 01:44] VITALS: BP 136/58; PULSE 83; RESP 20; TEMP 37.7; O2SAT 96; BMI 21.8
[2022-06-06 04:00] VITALS: BP 102/62; PULSE 73; RESP 18; TEMP 36.8; O2SAT 95
--- NOTE | 2022-06-06 04:12 | PC.NURSE ---
Addendum entered by Anne-Marie Neely, RNA 06/06/22 04:30: Pt is RONY FS, first check at 0600. Original Note: Pt is alert and oriented x4, pt has had no complaints since arriving to floor. Pt has had no nausea or vomiting, no bowel movement this shift. Pt used BSC with 2 assist and roberto care was provided. Pt O2 sat >90% on RA, lung sounds clear, abdomen soft and nontender, bowel sounds active. Pt daughter was at bedside for admission, and left after getting pt comfortable. Pt is NPO, tolerating well. Bed alarm is on, call light in reach and functioning.
[2022-06-06 06:27] LABS: POC Glucose,Bedside 209 (70-110)
[2022-06-06 07:57] LABS: Chloride 106 mmol/L (98-107); Potassium 3.6 mmoL/L (3.5-5.1); Sodium 140 mmol/L (136-145)
[2022-06-06 07:59] VITALS: BP 109/48; PULSE 73; RESP 16; TEMP 36.6; O2SAT 100
[2022-06-06 08:00] LABS: Anion Gap 12.6 mEq/L (5-15); Basophils % 0.2 % (0.1-2.0); Blood Urea Nitrogen 22 mg/dl (7-17); Carbon Dioxide 25 mmol/L (22.0-30.0); Creatinine Clearance Estimated 37 mL/min (50-200); Eosinophils % 0.2 % (0.1-12.0); Estimated Glomerular Filt Rate 53 ml/min (>60); GFR (African American) 64 ML/MIN (>60); Glucose 190 mg/dl (74-100); Hematocrit 24.2 % (37.0-47.0); Lymphocytes # 1.2 K/mm3 (0.7-4.5); Lymphocytes % 13.3 % (10-50); Mean Corpuscular HGB Conc 31.4 g/dL (31.8-35.4); Mean Corpuscular Volume 79.7 fl (81-99); Mean Platelet Volume 8.2 fl (7.4-10.4); Monocytes # 0.3 K/mm3 (0.1-1.0); Monocytes % 3.4 % (1.7-9.3); Neutrophils # 7.7 K/mm3 (1.8-7.8); Neutrophils % 82.9 % (37.0-80.0); Platelet Count 162 K/mm3 (142-424); Red Blood Count 3.04 M/mm3 (4.20-5.40); Red Cell Distribution Width 16.8 % (11.5-17.5); White Blood Count 9.3 K/mm3 (4.8-10.8)
[2022-06-06 08:02] LABS: Hemoglobin 7.6 g/dL (12.2-16.2)
[2022-06-06 08:03] LABS: Lipase < 10 U/L (23-300)
--- NOTE | 2022-06-06 09:57 | HMH.PHAINT1 ---
Pharmacy Intervention Comments: MEDICATION RECONCILIATION COMPLETE USING LIST FROM MOST RECENT MD OFFICE VISIT (05/2022) AND EXTERNAL PHARMACY FILL HISTORY.
--- NOTE | 2022-06-06 10:02 | P.CONPHA_ITS ---
[facility] Pharmacy VTE Monitoring Patient Demographics Admission date: 06/06/22 Report Date: 06/06/22 Time: 10:03 Patient Allergies methylprednisolone Allergy (Mild, Verified 04/21/22 12:53) Elevated glucose Height: 1.6 m Weight: 55.973 kg Current Active Problems (Updated 06/06/22 @ 02:18 by NEHA Rao) Gastritis (Acute) VTE Risk Labs: VTE Related Lab Results Hgb 7.6 g/dL (12.2-16.2) L D 06/06/22 06:41 Hct 24.2 % (37.0-47.0) L 06/06/22 06:41 Plt Count 162 K/mm3 (142-424) D 06/06/22 06:41 BUN 22 mg/dl (7-17) H 06/06/22 06:41 Creatinine 1.00 mg/dl (0.52-1.04) 06/06/22 06:41 Estimated Creat Clear 37 mL/min (50-200) 06/06/22 06:41 Was VTE Risk Assessment Performed: Yes VTE Score: 9 VTE Risk Level: Moderate Risk Clinical Trial Participant: No Prophylaxis VTE Prophylaxis Ordered?: Yes Types of VTE Prophylaxis: TEDS Knee High Location of Applied Device: Bilateral Lower Extremeties
--- NOTE | 2022-06-06 10:09 | PC.NURSE ---
paged electronic installer regarding pt lab work
[2022-06-06 11:49] LABS: POC Glucose,Bedside 178 (70-110)
--- NOTE | 2022-06-06 12:41 | EXP.HPDC ---
General Admission date:: 06/06/22 Discharge date: 06/06/22 *Admission Date: 06/06/22 *Chief complaint: gastroenteritis *History of present illness: Patient is an 86-year-old white female, admitted for observation through the emergency room with gastroenteritis. She relays eating at the [facility] with GI features arising subsequently. Her work-up included labs and CT of the abdomen. No acute findings were noted. Patient has had fairly recent EGD and colonoscopy. Equivocal changes in the rectal wall were noted. Patient has had no symptoms of bleeding by upper or lower sources. [facility] Medical History (Updated 06/06/22 @ 12:49 by Trevor Pimentel MD) Arrhythmia Arthritis Atrial fibrillation Atrial fibrillation with RVR Diabetes mellitus, type 2 Dyspnea Fatigue History of anemia History of cataract History of gastroesophageal reflux (GERD) History of left heart catheterization (LHC) History of pacemaker SOB (shortness of breath) on exertion Surgical History (Updated 06/06/22 @ 02:18 by NEHA Rao) History of appendectomy History of cholecystectomy History of colonoscopy History of esophagogastroduodenoscopy (EGD) History of hysterectomy Hx of tonsillectomy Family History (Updated 06/06/22 @ 02:18 by NEHA Rao) Other No significant family history Social History (Updated 06/06/22 @ 02:18 by NEHA Rao) Smoking Status: Never smoker second hand exposure: No alcohol intake: never substance use type: denies use current occupational status: disabled Travel in the last 8 weeks: None household members: family housing: house caffeine: No Review of Systems Constitutional Constitutional: Reports lethargy Eyes Eyes: Reports other ENT Ears, Nose, Mouth, and Throat: Reports system reviewed and no additional complaints, except as documented *Cardiovascular Cardiovascular: Reports system reviewed and no additional complaints, except as documented *Respiratory Respiratory: Reports system reviewed and no additional complaints, except as documented *Gastrointestinal Gastrointestinal: Reports belching, Reports bloating, Denies coffee ground emesis, Reports cramping, Denies hematemesis, Denies hematochezia, Denies melena, Reports nausea and Denies tenesmus *Genitourinary Genitourinary: Reports system reviewed and no additional complaints, except as documented and Reports other Comments: history of uti *Musculoskeletal Musculoskeletal: Reports system reviewed and no additional complaints, except as documented Integumentary/Breasts Skin/Breast: Reports system reviewed and no additional complaints, except as documented *Neurologic Neurologic: Reports system reviewed and no additional complaints, except as documented Psychiatric Psychiatric: Reports system reviewed and no additional complaints, except as documented Endocrine Endocrine: Reports system reviewed and no additional complaints, except as documented Exam Data for Last 24 hours Vital signs and Labs for Last 24 Hours: Temp Pulse Resp BP Pulse Ox 97.8 F 73 16 109/48 L 100 06/06/22 07:59 06/06/22 07:59 06/06/22 07:59 06/06/22 07:59 06/06/22 07:59 Laboratory Results - last 24 hr 06/05/22 21:30: WBC 14.7 H, RBC 3.94 L, Hgb 10.0 L, Hct 31.3 L, MCV 79.5 L, MCH 25.3 L, MCHC 31.8, RDW 16.7, Plt Count 251, MPV 7.6, Neut % (Auto) 90.1 H, Lymph % (Auto) 6.4 L, [place] % (Auto) 2.7, Eos % (Auto) 0.6, Baso % (Auto) 0.2, Neut # (Auto) 13.2 H, Lymph # (Auto) 0.9, [place] # (Auto) 0.4, Eos # (Auto) 0.1, Baso # (Auto) 0.0, Total Counted 100, Neutrophils % (Manual) 83 H, Band Neutrophils % 9.0 H, Lymphocytes % (Manual) 7 L, Monocytes % (Manual) 1 L, Platelet Estimate Normal, Hypochromasia 1+, Anisocytosis 1+, Microcytosis 2+, ESR 103 H 06/05/22 21:30: Sodium 140, Potassium 3.9, Chloride 102, Carbon Dioxide 26, Anion Gap 15.9 H, BUN 27 H, Creatinine 1.20 H, Estimated Creat Clear 30, Estimated GFR 43 L, Est GFR ( Am
--- NOTE | 2022-06-06 13:39 | HMH.PHAINT1 ---
Pharmacy Intervention Comments: DISCHARGE MEDICATION COUNSELING PROVIDED. DISCUSSED BACTRIM AND ZOFRAN PRESCRIPTIONS. WATCH FOR N/V/D, ELEVATED BLOOD POTASSIUM, RASH, SUN SENSITIVITY WITH BACTRIM. DISCUSSED THE NEW PRESCRIPTION FOR ZOFRAN. PATIENT VERBALIZED NO QUESTIONS AT THIS TIME.
[2022-06-06 14:50] LABS: Adenovirus F 40/41, stool Not Detected (NotDetected); Astrovirus Not Detected (NotDetected); Campylobacter Not Detected (NotDetected); Clostridium Difficile A/B, PCR Not Detected (NotDetected); Cryptosporidium Not Detected (NotDetected); Cyclospora Cayetanesis Not Detected (NotDetected); Entamoeba histolytica Not Detected (NotDetected); Enteroaggregative E coli Not Detected (NotDetected); Enteropathogenic E coli Not Detected (NotDetected); Enterotoxigenic E coli Not Detected (NotDetected); Giardia lamblia Not Detected (NotDetected); Norovirus Not Detected (NotDetected); Plesimonas Shigalloides, PCR Not Detected (NotDetected); Rotavirus A Not Detected (NotDetected); Salmonella, PCR Not Detected (NotDetected); Sapovirus Not Detected (NotDetected); Shiga-like toxin E coli Not Detected (NotDetected); Shigella Enterovasive E coli Not Detected (NotDetected); Vibrio Cholerae Not Detected (NotDetected); Vibrio, PCR Not Detected (NotDetected); Yersinia Entercolitica, PCR Not Detected (NotDetected)
--- NOTE | 2022-06-06 16:09 | PC.NURSE ---
pt prescriptions called in to [facility] for package pick up due to clinic being closed.
--- NOTE | 2022-06-06 16:27 | PC.NURSE ---
pt is being discahrged from [facility] via private car. IV was discontinued. pt took all belongings with her. voiced understanding of discharge educaiton as well as follow up appts. has tolerated po intake well. no c/o pain ,diarrhea, or vomiting.
--- NOTE | 2022-06-10 14:22 | CARE MANAGER ---
Attempted to contact patient related to hospital discharge. Unable to reach patient and no VM option.
== END 2022-06-06 16:35 | disposition home or self-care (01) ==
LOC: ER 21:30 → 2ND 06-06 00:20
PROVIDERS: Admitting Provider Emergency Medicine; Emergency Provider Emergency Medicine; PCP Emergency Medicine; Visit Provider Emergency Medicine
DX: K52.9 Noninfective gastroenteritis and colitis, unspecified (principal); N30.01 Acute cystitis with hematuria; I25.118 Atherosclerotic heart disease of native coronary artery with other forms of angina pectoris; I10 Essential (primary) hypertension; Z95.0 Presence of cardiac pacemaker; E11.69 Type 2 diabetes mellitus with other specified complication; Z79.4 Long term (current) use of insulin; D64.9 Anemia, unspecified; A08.4 Viral intestinal infection, unspecified; R53.83 Other fatigue; Z79.899 Other long term (current) drug therapy; I48.91 Unspecified atrial fibrillation; Z20.822 Contact with and (suspected) exposure to COVID-19
CPT/HCPCS: G0378; 36415; 74177; 80048; 80053; 81001; 82009; 82150; 82962; 83690; 84145; 85007; 85025; 85651; 86140; 87086; 87507; 99285; C9803; J0696; J2405; Q9967; U0003; U0005

== ENCOUNTER → 2022-06-15 07:01 | Outpatient (CLI) | payer MEDICARE, MEDICAID, SELFPAY ==
[2022-06-15 19:20] LABS: Basophils # 0.1 K/mm3 (0-0.2); Basophils % 0.7 % (0.1-2.0); Eosinophils # 0.1 K/mm3 (0.0-0.4); Eosinophils % 1.3 % (0.1-12.0); Hematocrit 32.5 % (37.0-47.0); Hemoglobin 10.4 g/dL (12.2-16.2); Lymphocytes # 1.8 K/mm3 (0.7-4.5); Lymphocytes % 17.5 % (10-50); Mean Corpuscular HGB Conc 32.1 g/dL (31.8-35.4); Mean Corpuscular Hemoglobin 25.5 pg (27.0-31.2); Mean Corpuscular Volume 79.5 fl (81-99); Mean Platelet Volume 8.2 fl (7.4-10.4); Monocytes # 0.5 K/mm3 (0.1-1.0); Monocytes % 4.6 % (1.7-9.3); Neutrophils # 7.9 K/mm3 (1.8-7.8); Neutrophils % 75.9 % (37.0-80.0); Platelet Count 324 K/mm3 (142-424); Red Blood Count 4.09 M/mm3 (4.20-5.40); Red Cell Distribution Width 16.7 % (11.5-17.5); White Blood Count 10.4 K/mm3 (4.8-10.8)
== END ==
PROVIDERS: PCP Emergency Medicine; Visit Provider Emergency Medicine
DX: R53.1 Weakness (principal)
CPT/HCPCS: 85025

== ENCOUNTER → 2022-09-11 18:19 | Outpatient (CLI) | payer MEDICARE, MEDICAID, SELFPAY | PROVIDERS: PCP Emergency Medicine; Visit Provider Emergency Medicine | DX: R82.90 Unspecified abnormal findings in urine (principal) | CPT/HCPCS: 87086 ==

== ENCOUNTER → 2022-10-12 13:59 | Outpatient (CLI) | payer MEDICARE, MEDICAID, SELFPAY ==
[2022-10-12 15:56] LABS: Basophils % 0.3 % (0.1-2.0); Eosinophils # 0.3 K/mm3 (0.0-0.4); Eosinophils % 3.2 % (0.1-12.0); Hematocrit 29.5 % (37.0-47.0); Hemoglobin 9.5 g/dL (12.2-16.2); Lymphocytes # 1.5 K/mm3 (0.7-4.5); Lymphocytes % 14.9 % (10-50); Mean Corpuscular HGB Conc 32.2 g/dL (31.8-35.4); Mean Corpuscular Volume 77.7 fl (81-99); Mean Platelet Volume 7.7 fl (7.4-10.4); Monocytes # 0.4 K/mm3 (0.1-1.0); Monocytes % 4.1 % (1.7-9.3); Neutrophils # 7.7 K/mm3 (1.8-7.8); Neutrophils % 77.5 % (37.0-80.0); Platelet Count 230 K/mm3 (142-424); Red Cell Distribution Width 17.2 % (11.5-17.5); White Blood Count 9.9 K/mm3 (4.8-10.8)
[2022-10-12 16:29] LABS: Alanine Aminotransferase 24 U/L (12-78); Albumin Level 4.1 g/dl (3.5-5.0); Albumin/Globulin Ratio 1.4 (1.1-1.8); Alkaline Phosphatase 114 U/L (38-126); Anion Gap 16.8 mEq/L (5-15); Aspartate Amino Transferase 30 U/L (14-36); Bilirubin,Total 0.5 mg/dl (0.2-1.3); Blood Urea Nitrogen 30 mg/dl (7-17); Calcium 9.2 mg/dl (8.4-10.2); Carbon Dioxide 26 mmol/L (22.0-30.0); Chloride 98 mmol/L (98-107); Estimated Glomerular Filt Rate 43 ml/min (>60); GFR (African American) 52 ML/MIN (>60); Glucose 385 mg/dl (74-100); Potassium 4.8 mmoL/L (3.5-5.1); Sodium 136 mmol/L (136-145); Total Protein,Serum 7.1 g/dl (6.3-8.2)
== END ==
PROVIDERS: PCP Emergency Medicine; Visit Provider Emergency Medicine
DX: R53.83 Other fatigue (principal)
CPT/HCPCS: 80053; 85025; 87086

== ENCOUNTER → 2023-01-04 17:57 | Outpatient (CLI) | payer MEDICARE, MEDICAID, SELFPAY ==
[2023-01-04 18:29] LABS: Anion Gap 16.7 mEq/L (5-15); Calcium 9.4 mg/dl (8.4-10.2); Carbon Dioxide 27 mmol/L (22.0-30.0); Chloride 100 mmol/L (98-107); Glucose 174 mg/dl (74-100); Potassium 4.7 mmoL/L (3.5-5.1); Sodium 139 mmol/L (136-145)
[2023-01-04 18:49] LABS: Basophils % 0.4 % (0.1-2.0); Eosinophils # 0.4 K/mm3 (0.0-0.4); Hematocrit 32.4 % (37.0-47.0); Hemoglobin 9.7 g/dL (12.2-16.2); Lymphocytes # 1.4 K/mm3 (0.7-4.5); Lymphocytes % 16.1 % (10-50); Mean Corpuscular Hemoglobin 22.9 pg (27.0-31.2); Mean Corpuscular Volume 76.4 fl (81-99); Mean Platelet Volume 6.8 fl (7.4-10.4); Monocytes # 0.4 K/mm3 (0.1-1.0); Monocytes % 4.8 % (1.7-9.3); Neutrophils # 6.7 K/mm3 (1.8-7.8); Neutrophils % 74.8 % (37.0-80.0); Platelet Count 239 K/mm3 (142-424); Red Blood Count 4.23 M/mm3 (4.20-5.40); Red Cell Distribution Width 16.3 % (11.5-17.5)
[2023-01-04 21:15] LABS: Blood Urea Nitrogen 30 mg/dl (7-17); Estimated Glomerular Filt Rate 43 ml/min (>60); GFR (African American) 52 ML/MIN (>60)
== END ==
PROVIDERS: PCP Emergency Medicine; Visit Provider Emergency Medicine
DX: I25.118 Atherosclerotic heart disease of native coronary artery with other forms of angina pectoris (principal); R53.83 Other fatigue
CPT/HCPCS: 80048; 85025; 87086

== ENCOUNTER → 2023-07-27 11:14 | Outpatient (CLI) | payer MEDICARE, MEDICAID, SELFPAY | PROVIDERS: PCP Emergency Medicine; Visit Provider Emergency Medicine | DX: R53.83 Other fatigue (principal) ==

== ENCOUNTER → 2023-07-27 16:50 | Outpatient (CLI) | payer MEDICARE, MEDICAID, SELFPAY ==
[2023-07-27 19:07] LABS: Basophils % 0.2 % (0.1-2.0); Eosinophils # 0.3 K/mm3 (0.0-0.4); Eosinophils % 2.7 % (0.1-12.0); Hemoglobin 10.3 g/dL (12.2-16.2); Lymphocytes # 1.7 K/mm3 (0.7-4.5); Lymphocytes % 16.8 % (10-50); Mean Corpuscular HGB Conc 33.2 g/dL (31.8-35.4); Mean Corpuscular Hemoglobin 25.3 pg (27.0-31.2); Mean Corpuscular Volume 76.3 fl (81-99); Monocytes # 0.4 K/mm3 (0.1-1.0); Monocytes % 4.3 % (1.7-9.3); Neutrophils # 7.6 K/mm3 (1.8-7.8); Platelet Count 256 K/mm3 (142-424); Red Blood Count 4.06 M/mm3 (4.20-5.40); Red Cell Distribution Width 16.3 % (11.5-17.5)
[2023-07-27 19:16] LABS: Alanine Aminotransferase 20 U/L (12-78); Albumin Level 4.3 g/dl (3.5-5.0); Albumin/Globulin Ratio 1.4 (1.1-1.8); Alkaline Phosphatase 127 U/L (38-126); Anion Gap 17.9 mEq/L (5-15); Aspartate Amino Transferase 35 U/L (14-36); Bilirubin,Total 0.4 mg/dl (0.2-1.3); Blood Urea Nitrogen 25 mg/dl (7-17); Calcium 9.7 mg/dl (8.4-10.2); Carbon Dioxide 27 mmol/L (22.0-30.0); Chloride 100 mmol/L (98-107); Estimated Glomerular Filt Rate 43 ml/min (>60); GFR (African American) 52 ML/MIN (>60); Globulin 3.1 g/dL (1.3-3.2); Glucose 127 mg/dl (74-100); Potassium 4.9 mmoL/L (3.5-5.1); Sodium 140 mmol/L (136-145); Total Protein,Serum 7.4 g/dl (6.3-8.2)
[2023-07-27 20:55] LABS: Hemoglobin A1C 9.2 % (4.0-6.0)
== END ==
PROVIDERS: PCP Emergency Medicine; Visit Provider Emergency Medicine
DX: R53.83 Other fatigue (principal); I25.118 Atherosclerotic heart disease of native coronary artery with other forms of angina pectoris; E11.69 Type 2 diabetes mellitus with other specified complication; Z79.4 Long term (current) use of insulin
CPT/HCPCS: 80053; 83036; 85025; 87086

== ENCOUNTER → 2023-08-23 08:37 | Outpatient (CLI) | payer MEDICARE, MEDICAID, SELFPAY ==
[2023-08-23 18:51] LABS: Basophils % 0.2 % (0.1-2.0); Eosinophils # 0.2 K/mm3 (0.0-0.4); Eosinophils % 2.5 % (0.1-12.0); Hematocrit 32.9 % (37.0-47.0); Hemoglobin 10.9 g/dL (12.2-16.2); Lymphocytes # 1.5 K/mm3 (0.7-4.5); Lymphocytes % 15.8 % (10-50); Mean Corpuscular HGB Conc 33.1 g/dL (31.8-35.4); Mean Corpuscular Hemoglobin 25.3 pg (27.0-31.2); Mean Corpuscular Volume 76.4 fl (81-99); Mean Platelet Volume 8.5 fl (7.4-10.4); Monocytes # 0.4 K/mm3 (0.1-1.0); Neutrophils # 7.6 K/mm3 (1.8-7.8); Neutrophils % 77.5 % (37.0-80.0); Platelet Count 220 K/mm3 (142-424); Red Cell Distribution Width 16.6 % (11.5-17.5); White Blood Count 9.8 K/mm3 (4.8-10.8)
[2023-08-23 18:54] LABS: Alanine Aminotransferase 23 U/L (12-78); Albumin Level 4.4 g/dl (3.5-5.0); Albumin/Globulin Ratio 1.4 (1.1-1.8); Alkaline Phosphatase 136 U/L (38-126); Anion Gap 20.3 mEq/L (5-15); Aspartate Amino Transferase 31 U/L (14-36); Bilirubin,Total 0.5 mg/dl (0.2-1.3); Blood Urea Nitrogen 30 mg/dl (7-17); Calcium 9.8 mg/dl (8.4-10.2); Carbon Dioxide 25 mmol/L (22.0-30.0); Chloride 98 mmol/L (98-107); Estimated Glomerular Filt Rate 43 ml/min (>60); GFR (African American) 52 ML/MIN (>60); Globulin 3.1 g/dL (1.3-3.2); Glucose 211 mg/dl (74-100); Potassium 5.3 mmoL/L (3.5-5.1); Sodium 138 mmol/L (136-145); Total Protein,Serum 7.5 g/dl (6.3-8.2)
[2023-08-23 19:25] LABS: Thyroid Stimulating Hormone 2.59 uIU/mL (0.465-4.68)
== END ==
PROVIDERS: PCP Emergency Medicine; Visit Provider Emergency Medicine
DX: R53.83 Other fatigue (principal); E11.69 Type 2 diabetes mellitus with other specified complication; Z79.4 Long term (current) use of insulin; B96.89 Other specified bacterial agents as the cause of diseases classified elsewhere
CPT/HCPCS: 80053; 83036; 84443; 85025; 87086

== ENCOUNTER 2023-09-02 08:35 | Emergency (ER) | payer MEDICARE, MEDICAID, SELFPAY ==
[2023-09-02] VITALS (7 sets, daily range): BP systolic 108–131; BP diastolic 53–62; PULSE 70–78; RESP 16–20; TEMP 36.5; O2SAT 94–98; BMI 23.9
--- NOTE | 2023-09-02 08:39 | CT_ITS ---
FINAL REPORT TECHNIQUE: After the administration of intravenous contrast, axial images were obtained through the abdomen and pelvis by computed tomography. The study was performed with techniques to keep radiation dose as low as reasonably achievable, (ALARA). Individual dose reduction techniques using automated exposure control or adjustment of mA and/or kV according to the patient's size were employed. CLINICAL HISTORY: lower abd pain, nvd FINDINGS: Abdomen: There are mild chronic changes at the bases. The liver parenchyma is homogeneous. There is borderline splenomegaly. The pancreas is atrophic. The adrenals appear unremarkable. There is a benign-appearing cyst in the left kidney measuring 3.1 cm. The aorta is normal in caliber. There is no free fluid or adenopathy. Pelvis: The appendix is not identified. Fluid is seen throughout loops of large and small bowel. Fluid is seen in the colon. There is extensive proximal sigmoid diverticulosis. The urinary bladder is unremarkable. There is no free fluid or adenopathy. IMPRESSION: Fluid-filled loops of large and small bowel, may be related to underlying enteritis. Extensive sigmoid diverticulosis. Reviewed, Interpreted and Dictated by Tremayne Morelos MD Transcribed by Neda Francisco Authenticated and [facility]
--- NOTE | 2023-09-02 08:41 | HMH.EDGENADL ---
Discharge Plan Disposition Patient Disposition: Home, Self-Care Prescriptions Prescriptions: New ondansetron 4 mg tablet,disintegrating 4 mg PO Q6H PRN (Reason: nausea and vomiting) 5 Days Qty: 20 0RF No Action aspirin [Adult Low Dose Aspirin] 81 mg tablet,delayed release (DR/EC) 81 mg PO HS verapamil 120 mg capsule,ext rel. pellets 24 hr 120 mg PO DAILY Qty: 30 2RF loratadine [Claritin] 10 mg tablet 10 mg PO DAILY Qty: 10 0RF insulin glargine [Lantus Solostar U-100 Insulin] 100 unit/mL (3 mL) insulin pen 16 unit SQ HS insulin lispro protamin-lispro 100 unit/mL (75-25) insulin pen 18 unit SQ BID diclofenac sodium 3 % gel 1 applic topical BID Qty: 100 0RF omeprazole 40 mg capsule,delayed release(DR/EC) See Rx Instructions .ROUTE .COMPLEX Qty: 90 2RF Dose Instruction: TAKE ONE CAPSULE BY MOUTH EVERY DAY Rx Instructions: TAKE ONE CAPSULE BY MOUTH EVERY DAY levothyroxine 50 mcg tablet See Rx Instructions .ROUTE .COMPLEX Qty: 90 2RF Dose Instruction: TAKE ONE TABLET BY MOUTH EVERY DAY Rx Instructions: TAKE ONE TABLET BY MOUTH EVERY DAY Myrbetriq 25 mg tablet extended release 24 hr See Rx Instructions .ROUTE .COMPLEX Qty: 60 3RF Dose Instruction: TAKE ONE TABLET BY MOUTH EVERY DAY FOR BLADDER Rx Instructions: TAKE ONE TABLET BY MOUTH EVERY DAY FOR BLADDER atorvastatin 10 mg tablet See Rx Instructions .ROUTE .COMPLEX Qty: 90 1RF Dose Instruction: TAKE ONE TABLET BY MOUTH EVERY DAY FOR CHOLESTEROL Rx Instructions: TAKE ONE TABLET BY MOUTH EVERY DAY FOR CHOLESTEROL fluticasone propionate 50 mcg/actuation spray,suspension 1 spray INTRANASAL DAILY Qty: 16 2RF bisoprolol fumarate 5 mg tablet See Rx Instructions .ROUTE .COMPLEX Qty: 90 1RF Dose Instruction: TAKE ONE TABLET BY MOUTH EVERY DAY FOR high blood pressure Rx Instructions: TAKE ONE TABLET BY MOUTH EVERY DAY FOR high blood pressure digoxin 125 mcg (0.125 mg) tablet See Rx Instructions .ROUTE .COMPLEX Qty: 90 0RF Dose Instruction: TAKE ONE TABLET BY MOUTH EVERY DAY FOR heart rhythm Rx Instructions: TAKE ONE TABLET BY MOUTH EVERY DAY FOR heart rhythm (DME) FreeStyle Kai 2 [place] Misc See Rx Instructions .Route Qty: 1 3RF Rx Instructions: As directed or BID (DME) FreeStyle Kai 2 Sensor Kit See Rx Instructions .ROUTE .COMPLEX Qty: 1 0RF Dose Instruction: USE DIRECTED Rx Instructions: USE DIRECTED (DME) FreeStyle Precision Marlon Strips Strip See Rx Instructions .Route Qty: 50 2RF Rx Instructions: As directed or bid docusate sodium 100 mg capsule See Rx Instructions .ROUTE .COMPLEX Qty: 90 0RF Dose Instruction: TAKE ONE CAPSULE BY MOUTH EVERY DAY AT BEDTIME FOR constipation Rx Instructions: TAKE ONE CAPSULE BY MOUTH EVERY DAY AT BEDTIME FOR constipation (DME) FreeStyle Test Strip See Rx Instructions .Route Qty: 100 1RF Rx Instructions: As directed Xarelto 15 mg tablet See Rx Instructions .ROUTE .COMPLEX Qty: 90 0RF Dose Instruction: TAKE ONE TABLET BY MOUTH EVERY DAY IN THE EVENING --TAKE WITH FOOD-- Rx Instructions: TAKE ONE TABLET BY MOUTH EVERY DAY IN THE EVENING --TAKE WITH FOOD-- sertraline 100 mg tablet See Rx Instructions .ROUTE .COMPLEX Qty: 90 2RF Dose Instruction: TAKE 1/2 TABLET BY MOUTH EVERY DAY FOR mood Rx Instructions: TAKE 1 TABLET BY MOUTH EVERY DAY FOR mood (DME) pen needle, diabetic [Advocate Pen Needle] 31 gauge x 3/16 needle See Rx Instructions .ROUTE .COMPLEX Qty: 100 1RF Dose Instruction: USE FOR insulin injections THREE TIMES DAILY OR DIRECTED Rx Instructions: USE FOR insulin injections THREE TIMES DAILY OR DIRECTED cetirizine 10 mg tablet See Rx Instructions .ROUTE .COMPLEX Qty: 90 0RF Dose Instruction: TAKE ONE TABLET BY MOUTH
[2023-09-02 08:59] LABS: Basophils % 0.1 % (0.1-2.0); Eosinophils # 0.2 K/mm3 (0.0-0.4); Eosinophils % 1.4 % (0.1-12.0); Hematocrit 35.7 % (37.0-47.0); Hemoglobin 11.5 g/dL (12.2-16.2); Lymphocytes # 1.1 K/mm3 (0.7-4.5); Lymphocytes % 9.8 % (10-50); Mean Corpuscular HGB Conc 32.3 g/dL (31.8-35.4); Mean Corpuscular Volume 77.6 fl (81-99); Mean Platelet Volume 7.8 fl (7.4-10.4); Monocytes # 0.5 K/mm3 (0.1-1.0); Monocytes % 4.1 % (1.7-9.3); Neutrophils # 9.2 K/mm3 (1.8-7.8); Neutrophils % 84.6 % (37.0-80.0); Platelet Count 233 K/mm3 (142-424); Red Blood Count 4.59 M/mm3 (4.20-5.40); Red Cell Distribution Width 16.9 % (11.5-17.5); White Blood Count 10.9 K/mm3 (4.8-10.8)
[2023-09-02 08:59] LABS: Coronavirus 19, PCR Not Detected (NotDetected); Influenza A, PCR Not Detected (NotDetected); Influenza B, PCR Not Detected (NotDetected)
[2023-09-02 09:21] LABS: Alanine Aminotransferase 34 U/L (12-78); Albumin Level 4.6 g/dl (3.5-5.0); Albumin/Globulin Ratio 1.3 (1.1-1.8); Alkaline Phosphatase 135 U/L (38-126); Anion Gap 17.1 mEq/L (5-15); Aspartate Amino Transferase 54 U/L (14-36); Bilirubin,Total 0.6 mg/dl (0.2-1.3); Blood Urea Nitrogen 36 mg/dl (7-17); Calcium 9.3 mg/dl (8.4-10.2); Carbon Dioxide 23 mmol/L (22.0-30.0); Chloride 100 mmol/L (98-107); Creatinine Clearance Estimated 28 mL/min (50-200); Estimated Glomerular Filt Rate 36 ml/min (>60); GFR (African American) 43 ML/MIN (>60); Globulin 3.6 g/dL (1.3-3.2); Glucose 320 mg/dl (74-100); Potassium 5.1 mmoL/L (3.5-5.1); Sodium 135 mmol/L (136-145); Total Protein,Serum 8.2 g/dl (6.3-8.2)
[2023-09-02 10:40] LABS: Magnesium 1.6 mg/dl (1.6-2.3); Phosphorous 3.5 mg/dl (2.5-4.5)
== END 2023-09-02 11:49 | disposition home or self-care (01) ==
PROVIDERS: Emergency Provider Student in an Organized Health Care Education/Training Program
DX: R11.2 Nausea with vomiting, unspecified (principal); R19.7 Diarrhea, unspecified; E11.9 Type 2 diabetes mellitus without complications; I48.0 Paroxysmal atrial fibrillation; N18.9 Chronic kidney disease, unspecified; Z95.0 Presence of cardiac pacemaker; Z79.4 Long term (current) use of insulin; Z79.01 Long term (current) use of anticoagulants; I25.119 Atherosclerotic heart disease of native coronary artery with unspecified angina pectoris; I11.9 Hypertensive heart disease without heart failure; R10.817 Generalized abdominal tenderness
CPT/HCPCS: 74177; 80053; 83735; 84100; 85025; 87636; 96374; 99284; J2405; Q9967

== ENCOUNTER → 2023-09-17 11:43 | Outpatient (CLI) | payer MEDICARE, MEDICAID, SELFPAY ==
--- NOTE | 2023-09-17 | CA_ITS ---
APPROVED REPORT Exam: Pharmacologic Technologist: Ibis Ruby, Ht: 5 ft 3 in Wt: 125 lbs BSA: 1.58 m2 HR: 70 bpm BP: 136/58 mmHg Rhythm: NSR and intermittent V-paced rhythm Medical History Medical History: Hyperlipidemia, Diabetes Medications: Omeprazole,,,,, Aspirin,,,,, Atorvastatin,,,,, Flonase,,,,, Digoxin,,,,, LoraTADINE,,,,, BisOPROLOL Fumarate,,,,, Vit B12,,,,, Sertraline,,,,, CetIRIZINE,,,,, DOcusate Sodium,,,,, RIvaROXABAN,,,,, Allergies: METHYLPREDNISOLONE Cardiac Risk Factors: Hyperlipidemia, Diabetes Stress Test Details Test: LEXISCAN HR Resting HR: 72 bpm Max Heart Rate (APMHR): 134 bpm Max HR Achieved: 80 bpm Target HR (85% APMHR): 114 bpm % of APMHR: 60 Recovery HR: 70 bpm BP Resting BP: 136/58 mmHg Max BP: 136/58 mmHg Recovery BP: 136.0/53.0 mmHg ECG Resting ECG: NSR with T-wave changes in inferolateral leads, intermittently V-paced Stress ECG: No significant ST changes Arrhythmia: None Clinical Exercise duration: 04:02 min Highest Stage Achieved: Exercise capacity: 1.0 METs Stress ECG Conclusion PT HAD MILD HEAD AND STOMACH DISCOMFORT NO CP NO SIGNIFICANT ST CHANGES NON-DIAGNOSTIC LEXISCAN STRESS DUE TO INTERMITTENT V. PACED RHYTHM MYOVIEW IMAGES REPORTED SEPARATELY Test Summary REST 08:17 . . 72 . 136/ 58 . . Stage 1 01:00 . . 70 . . . . Stage 2 01:00 . . 70 . . . . Stage 3 01:00 . . 70 . 131/ 51 . . Stage 4 01:00 . . 70 . 130/ 55 . . Stage 4 01:02 . . 70 . 130/ 55 . Stop exercise at 04:02 RECOVERY 01:00 . . 70 . . . . RECOVERY 02:00 . . 70 . 126/ 54 . . RECOVERY 03:00 . . 70 . 135/ 53 . . RECOVERY 03:29 . . 70 . 135/ 53 . . Electronically signed by : Erica Harris MD 09/19/2023 19:58:34
--- NOTE | 2023-09-17 11:44 | NM_ITS ---
APPROVED REPORT Exam: Nuclear Stress Test Indication: chest pain..soa..fatigue Patient Location: Outpatient Stress Tech: Maria Elena CARLOS Tech:Nancy HansenABIODUN RT(R)(N) Ht: 5 ft 3 in Wt: 125 lbs Bra Size: medium HR: 72 bpm BP: 136/58 mmHg BSA: 1.58 m2 TID: 1.09 BMI: 22.1 History: chest pain..soa..fatigue Procedure: Patient received 0.4 mg of intravenous Lexiscan, resting heart rate 72 bpm, resting blood pressure 136/58 mmHg, with Lexiscan maximum heart rate achieved was 80 bpm which is 85 % of the maximum predicted heart rate and blood pressure was 136/58 mmHg. With Lexiscan, patient denied any complaint of chest pain. The patient was not able to lay on her abdomen for prone images. Cardiac Stress and Resting SPECT Images: Cardiac Stress and Resting SPECT images were obtained using technetium 99m Myoview 31.8 mCi stress and 10.50 mCi at rest. The patient was unable to lie on her abdomen. Therefore, prone stress imaging could not be performed. This may affect the diagnostic interpretation of the study findings. Resting and stress imaging in supine positions demonstrate a large-sized, moderate, reversible perfusion defect in the inferior LV wall from the base and extending distaslly towards the inferoapical LV wall. The LV apex is also involved. Gated imaging demonstrates normal global LV systolic function. There is mild hypokinesis of the LV apex. LVEF is calculated at 64%. Conclusion: Large-sized, moderate, reversible perfusion defect in the inferior LV wall from the base and extending distaslly towards the inferoapical LV wall. The LV apex is also involved. Findings are suggestive of reversible ischemia. Gated imaging demonstrates normal global LV systolic function. There is mild hypokinesis of the LV apex. LVEF is calculated at 64%. Electronically signed by : Erica Harris MD 09/19/2023 20:01:17
--- NOTE | 2023-09-17 14:18 | CA_ITS ---
APPROVED REPORT EXAM: Comprehensive 2D, Doppler, and color-flow Echocardiogram Business Solutions Architect: Jasmin Coates RT(R) Ht: 5 ft 3 in Wt: 125lbs BSA: 1.58 BP: 107/54 mmHg Indications: AFIB, CAD, pacemaker, CM, CHF, HTN, fatigue, HLD 2D Dimensions Left Atrium 3.93 cm F: 2.7 - 3.8 LVEF (Drew's) 59.60 % F: 54 - 74 LVOT 1.86 cm (M/F) 1.5-2.5 LV Volume 63.40 mL F: 46 - 106 LV Volume Index 39.9 mL/m2 F: 29 - 61 LA Volume 31.50 mL LA Volume Index 19.81 mL/m2 (M/F) 16-34 EF AP4 48.40 % EF AP2 67.9 % EF BP 59.6 % GL Strain -13.3 % M-Mode Dimensions RVDd 2.75 cm (0.9-2.6) LVDd 4.58 cm (3.5-5.7) Ao Diam 2.71 cm (2.0-3.7) LVDs 3.58 cm (3.5-5.7) IVSd 0.57 cm (0.6-1.1) PWd 0.64 cm (0.6-1.1) EF (Teich) 44.20% FS 21.80% EDV (Teich) 96.30 mL ESV (Teich) 53.70 mL LV Diastology E Decel Time 150 (160-240 msec) E/A Ratio 1.7 MED E' 10.0 (>= 7 cm/sec) E'/MED E' Ratio 9.45 (<= 14) LAT E' 8.3 (>= 10 cm/sec) E/LAT E' Ratio 11.39 (<= 14) Mitral Valve MV E Max Baljit. 95.0 (40-130 cm/s) MV A Velocity 57.0 (40-130 cm/s) E/A Ratio 1.66 MV Decel. Time 150 (160-240 ms) Tricuspid Valve TR P. Velocity 305.00 cm/s RAP Estimate 10.00 mmHg RVSP 47.30 mmHg Left Ventricle The left ventricle is normal size. The left ventricular systolic function is normal. The left ventricular ejection fraction is within the normal range. There is normal left ventricular wall thickness. There is normal LV segmental wall motion. Grade 2 diastolic dysfunction is present. LVEF is 60%. Right Ventricle Right ventricle is mild to moderately dilated. The right ventricular systolic function is normal. A device lead is present in the right ventricle. Atria Left atrium is mildly dilated. Right atrium is mildly dilated. There is no Doppler evidence of interatrial shunt. Aortic Valve The aortic valve is mildly thickened. There is no aortic valvular stenosis. Trace aortic regurgitation. Mitral Valve The mitral valve leaflets are mildly thickened. No evidence of mitral valve stenosis. Mild mitral regurgitation. Tricuspid Valve The tricuspid valve leaflets are thin and pliable. There is no tricuspid valve stenosis. Moderate to severe tricuspid regurgitation. RVSP is 35-40 mmHg. Pulmonic Valve The pulmonary valve is normal in structure. Trace pulmonic regurgitation. Great Vessels The aortic root is normal in size. The ascending aorta is normal in size. IVC is normal in size and collapses >50% with inspiration. Pericardium There is no pericardial effusion. Other Information Study Quality: Fair Conclusion Normal biventricular systolic function. Grade 2 diastolic dysfunction. Mild to moderate RV dilation. Mild biatrial dilation. Mild MR. Moderate to severe TR. Elevated RVSP 35-40 mmHg. Electronically signed by : Erica Harris MD 09/19/2023 19:24:36
== END ==
PROVIDERS: Visit Provider Nurse Practitioner
DX: I25.10 Atherosclerotic heart disease of native coronary artery without angina pectoris (principal); I42.9 Cardiomyopathy, unspecified; I48.0 Paroxysmal atrial fibrillation; I50.9 Heart failure, unspecified; I73.9 Peripheral vascular disease, unspecified; R07.89 Other chest pain; R53.83 Other fatigue; Z95.0 Presence of cardiac pacemaker; E78.5 Hyperlipidemia, unspecified
CPT/HCPCS: 78452; 93017; 93018; 93306; A9502; J2785

== ENCOUNTER 2023-09-22 13:45 | Observation (INO) | payer MEDICARE, MEDICAID, SELFPAY ==
[2023-09-22] VITALS (18 sets, daily range): BP systolic 116–149; BP diastolic 52–71; PULSE 70–75; RESP 13–20; O2SAT 90–97; BMI 22.1
--- NOTE | 2023-09-22 07:12 | IR_ITS ---
APPROVED REPORT Patient Location: Outpatient Mgmt Consultant: ABIODUN Gonzalez RT (R) PROCEDURES Selective coronary angiogram Drug-eluting stent deployment to the ostial proximal dominant right coronary Intravascular lithotripsy to the distal right coronary artery Intravascular lithotripsy to the posterior descending artery Drug-eluting stent deployment to the posterior descending artery INDICATION Coronary artery disease, Angina pectoris, Abnormal Myoview with inferior ischemia, Calcified coronary artery, Informed consent was obtained prior to the procedure. COMPLICATIONS NONE Estimated Blood Loss: LESS THAN 10 ML TECHNIQUE One percent lidocaine used to anesthetize the right anterior aspect of the wrist. The right radial artery was accessed via the Seldinger technique. A 6 Polish sheath was placed in the right radial artery. 2.5 mg of Verapamil, 800 mcg of nitroglycerin, 1mg Lidocaine and 5000 U Heparin were given through the arterial sheath. The papa catheter was also used to perform left heart catheterization, left ventriculogram and selective coronary angiogram. At the end the diagnostic angiogram therapeutic heparin was administered giving a therapeutic ACT and the catheter was used to intubate the right coronary artery followed by Choice PT extra-support wire placed into the posterior descending artery. A 4 mm x 26 mm Cecilio frontier stent was placed in the ostial segment and proximal segment and deployed at 18 [place]. A 4.5 x 20 mm balloon was deployed at 20 and 24 [place] to post dilate. A 2 mm compliant balloon was used to predilate the posterior descending artery followed by 2.5 x 12 mm noncompliant balloon used to predilate the calcified posterior descending artery. Shockwave balloon was finally advanced only after there was dilatation with the above balloons due to inability to deliver the shockwave. The shockwave balloon was deployed at 4, 5 and 8 [place] and all 80 pulsations were delivered to the distal right coronary artery and posterior descending artery. Following this a 2.5 x 22 mm [place] frontier stent was deployed in the distal right coronary extending in the posterior descending artery and deployed at 24 [place]. FARTUN-3 flow was present before and after the procedure. After achieving excellent angiographic results the apparatus was removed the sheath was removed hemostasis was achieved using TR banding patient was transferred to the postop putting in stable condition ANGIOGRAPHIC RESULTS The left main artery Is an ostial proximal 20% stenosis The left anterior descending artery Has proximal calcified 60% stenosis with long mid vessel 50% stenoses. The LAD is a small caliber vessel. First diagonal artery has proximal 50% calcified stenosis The circumflex artery Is nondominant yet still large and has proximal 30% calcified stenoses and gives rise to 2 large obtuse marginal arteries The right coronary artery Is a large dominant vessel and has ostial eccentric 60% stenosis with mid vessel 40 to 50% stenoses distal 30% stenosis and a calcified concentric 90% stenosis in the proximal large posterior sending artery The [place] ventriculogram reveals Was not performed The left ventricular end-diastolic pressure Not measured IMPRESSION Critical calcific disease in the proximal posterior descending artery with successful intravascular lithotripsy followed by drug-eluting stenting Severe disease in an ostial proximal dominant right coronary with successful stenting reducing the stenosis to 0% with 1 drug-eluting stent Persistent moderate stenosis throughout the proximal and mid small caliber LAD PLAN 1. Dual antiplatelet therapy 2. Risk factor modification 3. Cardiac rehabilitation 4. Avoidance of tobacco products 5. LDL less than 55 to be achieved with high intensity statin Electronically signed by : Elvin Keith MD 09/22/2023 12:59:43
[2023-09-22 09:40] LABS: Chloride 101 mmol/L (98-107); Potassium 4.8 mmoL/L (3.5-5.1); Sodium 139 mmol/L (136-145)
[2023-09-22 09:43] LABS: Anion Gap 16.8 mEq/L (5-15); Blood Urea Nitrogen 27 mg/dl (7-17); Carbon Dioxide 26 mmol/L (22.0-30.0); Creatinine Clearance Estimated 30 mL/min (50-200); Estimated Glomerular Filt Rate 43 ml/min (>60); GFR (African American) 52 ML/MIN (>60)
[2023-09-22 09:44] LABS: Calcium 9.5 mg/dl (8.4-10.2); Glucose 232 mg/dl (74-100)
[2023-09-22 10:06] LABS: Basophils % 0.2 % (0.1-2.0); Eosinophils # 0.3 K/mm3 (0.0-0.4); Eosinophils % 3.9 % (0.1-12.0); Hematocrit 32.6 % (37.0-47.0); Hemoglobin 10.8 g/dL (12.2-16.2); Lymphocytes # 1.5 K/mm3 (0.7-4.5); Lymphocytes % 18.3 % (10-50); Mean Corpuscular HGB Conc 33.1 g/dL (31.8-35.4); Mean Corpuscular Hemoglobin 25.5 pg (27.0-31.2); Mean Platelet Volume 7.2 fl (7.4-10.4); Monocytes # 0.3 K/mm3 (0.1-1.0); Monocytes % 4.1 % (1.7-9.3); Neutrophils # 5.9 K/mm3 (1.8-7.8); Neutrophils % 73.5 % (37.0-80.0); Platelet Count 187 K/mm3 (142-424); Red Blood Count 4.24 M/mm3 (4.20-5.40); Red Cell Distribution Width 16.4 % (11.5-17.5)
[2023-09-22] MEDS: HEPARIN 1,000 UNITS/ML 10ML VIAL (CATH LAB) 10000 UNIT IV (11:55)
[2023-09-22] MEDS: VERAPAMIL 2.5MG/ML 2ML VIAL 2.5 MG IV (11:55)
[2023-09-22] MEDS: NITROGLYCERIN 800MCG/8ML SYR (CATH LAB) 800 MCG IA (11:55)
[2023-09-22] MEDS: diphenhydrAMINE 50MG/ML VIAL 50 MG IV (11:55)
[2023-09-22] MEDS: 0.9 % SODIUM CHLORIDE 500 ML 25 ML IV (11:56)
[2023-09-22] MEDS: LIDOCAINE 1% 10ML MDV 20 ML IJ (11:56)
[2023-09-22] MEDS: HEPARIN 1,000 UNITS/500ML NS (CATH LAB) 3000 UNIT IV (11:56)
[2023-09-22] MEDS: MIDAZOLAM HCL 1MG/1ML 5ML VIAL 1 MG IV (12:02)
[2023-09-22] MEDS: FENTANYL 100MCG/2ML VIAL 50 MCG IV (12:02)
[2023-09-22 13:23] LABS: CATHL Activated Clotting Time 227 SEC (74-125)
[2023-09-22] MEDS: IOPAMIDOL-370 (76%);100ML BOTTLE 150 ML IV (13:27)
--- NOTE | 2023-09-22 14:29 | PC.NURSE ---
arrived by jameser from [employer]
--- NOTE | 2023-09-22 17:58 | EXP.HP ---
History of Present Illness *Admission Date: 09/22/23 *Reason for visit:: Cardiac cath *History of present illness: Patient is a 88-year-old female with past medical history of CAD hypertension sick sinus syndrome paroxysmal atrial fibrillation who presented to hospital for cardiac cath procedure on elective basis. Patient was admitted to hospital for observation. At time of my evaluation patient denies chest pain shortness of breath nausea vomiting diarrhea constipation dysuria fevers chills dizziness lightheadedness. [facility] Disclaimer: The information contained in this section may have been updated after the patient was seen, as this information can be updated by other users. 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 antigen is unknown, or is not H7 Edema Enterotoxigenic Escherichia coli infection Fatigue Gastritis History of anemia History of cataract History of gastroesophageal reflux (GERD) History of left heart catheterization (LHC) History of pacemaker Hyperkalemia Hypokalemia Hypotension Lactic acidosis Leg pain, bilateral Leukocytosis Palpitations Pancytopenia Pre-syncope Renal insufficiency Right shoulder pain SOB (shortness of breath) SOB (shortness of breath) on exertion Strep throat Surgical History History of appendectomy History of cholecystectomy History of colonoscopy History of esophagogastroduodenoscopy (EGD) History of hysterectomy Hx of tonsillectomy Family History Other No significant family history Social History (Updated 09/22/23 @ 14:18 by Shelly Oneal RN) Smoking Status: Never smoker second hand exposure: No alcohol intake: never substance use type: denies use current occupational status: disabled Travel in the last 8 weeks: Inside the [place] household members: family housing: house caffeine: No Review of Systems Review of Systems Review of systems (narrative): as per [facility] Meds Home Medications and Allergies Home Medications Medication Instructions Recorded Confirmed Type aspirin 81 mg tablet,delayed 81 mg PO HS CAD 10/05/17 09/20/23 History release (Adult Low Dose Aspirin) cyanocobalamin (vitamin B-12) 2,500 mcg sublingual BID Supplement 08/18/21 09/20/23 History 2,500 mcg sublingual tablet multivitamin-ferrous 1 each PO DAILY Supplement 08/18/21 09/20/23 History fumarate-folic acid 18 mg-400 mcg tablet levothyroxine 50 mcg tablet See Rx Instructions .Route 10/26/22 09/20/23 Rx .COMPLEX #90 tabs omeprazole 40 mg capsule,delayed See Rx Instructions .Route 10/26/22 09/20/23 Rx release .COMPLEX #90 caps atorvastatin 10 mg tablet See Rx Instructions .Route 05/18/23 09/20/23 Rx .COMPLEX #90 tabs fluticasone propionate 50 1 spray intranasal DAILY Allergy 07/10/23 09/20/23 Rx mcg/actuation nasal symptoms #16 grams spray,suspension bisoprolol fumarate 5 mg tablet See Rx Instructions .Route 07/19/23 09/20/23 Rx .COMPLEX #90 tabs digoxin 125 mcg (0.125 mg) tablet See Rx Instructions .Route 07/21/23 09/20/23 Rx .COMPLEX #90 tabs loratadine 10 mg tablet (Claritin) 10 mg PO DAILY #10 tabs 07/27/23 09/20/23 Rx verapamil 120 mg 24 hr 120 mg PO DAILY #30 caps 07/27/23 09/20/23 Rx capsule,extended release blood sugar diagnostic (FreeStyle #50 ea 08/18/23 09/20/23 Rx Precision Marlon Strips) docusate sodium 100 mg capsule See Rx Instructions .Route 08/18/23 09/20/23 Rx .COMPLEX constipation #90 caps blood sugar diagnostic (FreeStyle #100 ea 08/19/23 09/20/23 Rx Test strips) insulin lispro protamine-lispro 18 unit SQ BID 08/23/23 09/20/23 History 100 unit/mL (75-25) subcutaneous pen cetirizine 10 mg tablet See Rx Instructions .Route 08/31/23 09/20/23 Rx .COMPLEX #90 tabs pen needle, diabetic 31 gauge x #100 ea 08/31/23 09/20/23 Rx 3/16 (Advocate Pen Needle) rivaroxaban 15 mg tablet (Xarelto) See Rx Instructions .Route 08/31/23 09/20/23 Rx .COMPLEX #90 tabs sertraline 100 mg tablet See Rx Instructions .Route 08/31/23 09/20/23 Rx .COMPLEX #90 tabs ondansetron 4 mg disintegrating 4 mg PO Q6H PRN nausea and 09/02/23 09/20/23 Rx tablet vomiting 5 days #20 tabs diclofenac sodium 3 % topical gel 1 applic topical BID #100 grams 09/17/23 09/20/23 Rx flash glucose scanning reader #1 ea 09/17/23 09/20/23 Rx (FreeStyle Kai 2 [place]) flash glucose sensor (FreeStyle #1 kit 09/17/23 09/20/23 Rx Kai 2 Sensor kit) insulin glargine 100 unit/mL (3 See Rx Instructions .Route 09/17/23 09/20/23 Rx mL) subcutaneous pen (Lantus .COMPLEX #15 mL Solostar U-100 Insulin) mirabegron 25 mg tablet,extended See Rx Instructions .Route 09/17/23 09/20/23 Rx release 24 hr (Myrbetriq) .COMPLEX #60 tabs empagliflozin 10 mg tablet 10 mg PO DAILY #30 tabs 09/20/23 09/20/23 Rx (Jardiance) clopidogrel 75 mg tablet (Plavix) 75 mg PO DAILY #30 tabs 09/22/23 Rx New Prescriptions to Start Prescriptions: clopidogrel [Plavix] Elvin Keith Allergies Allergy/AdvReac Type Severity Reaction Status Date / Time methylprednisolone Allergy Mild Elevated Verified 09/20/23 14:01 glucose Exam Data for Last 24 hours Vital signs and Labs for Last 24 Hours: Pulse Resp BP Pulse Ox O2 Del Method 70 20 127/64 95 Room Air 09/22/23 16:00 09/22/23 14:00 09/22/23 14:00 09/22/23 14:00 09/22/23 14:00 Laboratory Results - last 24 hr 09/22/23 09:30: WBC 8.0, RBC 4.24, Hgb 10.8 L, Hct 32.6 L, MCV 77.0 L, MCH 25.5 L, MCHC 33.1, RDW 16.4, Plt Count 187, MPV 7.2 L, Neut % (Auto) 73.5, Lymph % (Auto) 18.3, [place] % (Auto) 4.1, Eos % (Auto) 3.9, Baso % (Auto) 0.2, Neut # (Auto) 5.9, Lymph # (Auto) 1.5, [place] # (Auto) 0.3, Eos # (Auto) 0.3, Baso # (Auto) 0.0, Sodium 139, Potassium 4.8, Chloride 101, Carbon Dioxide 26, Anion Gap 16.8 H, BUN 27 H, Creatinine 1.20 H, Estimated Creat Clear 30, Estimated GFR 43 L, Est GFR ( Amer) 52 L, Glucose 232 H, Calcium 9.5 09/22/23 13:20: Activated Clotting Time 227 H* I & O for Last 24 hours: Intake & Output 09/19/23 09/20/23 09/21/23 09/22/23 23:59 23:59 23:59 23:59 Intake Total 240 / 240 Balance 240 / 240 Weight 56.699 kg Constitutional Constitutional: no acute distress *Routine HEENT Exam Head: Present normocephalic Eye: Present EOMI and PERRL ENT: Present mucous membranes moist *Routine Neck Exam Neck: Present supple; Absent lymphadenopathy *Routine Respiratory Exam Respiratory: Present CTA bilaterally *Routine Cardiovascular Exam Cardiovascular: Present RRR *Routine Abdominal Exam Abdominal: Present soft and normoactive bowel sounds; Absent tenderness *Routine Rectal Exam Rectal:: deferred *Routine Genitalia Exam Genitalia:: deferred *Routine Extremities Exam Extremities: Absent cyanosis, clubbing or edema *Routine Skin Exam Skin: Present warm; Absent rash *Routine Neurological Exam Neurological: Present alert and oriented X3 Assessment and Plan *Assessment and plan (1) Coronary artery disease: Status: Chronic Qualifiers: Coronary Disease-Associated Artery/Lesion type: [place] artery [place] vs. transplanted heart: [place] heart Associated angina: with other forms of angina Qualified Code(s): I25.118 - Atherosclerotic heart disease of [place] coronary artery with other forms of angina pectoris Category: Medical Code(s): I25.10 - Atherosclerotic heart disease of [place] coronary artery without angina pectoris (2) HTN (hypertension): Status: Chronic Qualifiers: Hypertension type: primary hypertension Qualified Code(s): I10 - Essential (primary) hypertension Category: Medical Code(s): I10 - Essential (primary) hypertension (3) HLD (hyperlipidemia): Status: Chronic Qualifiers: Hyperlipidemia type: mixed hyperlipidemia Qualified Code(s): E78.2 - Mixed hyperlipidemia Category: Medical Code(s): E78.5 - Hyperlipidemia, unspecified (4) Diabetes: Status: Acute Qualifiers: Diabetes mellitus complication status: with other specified complication Diabetes mellitus usp insulin use: with intermodal customer service use Diabetes mellitus type: type 2 Qualified Code(s): E11.69 - Type 2 diabetes mellitus with other specified complication; Z79.4 - alf (current) use of insulin Category: Medical Code(s): E11.9 - Type 2 diabetes mellitus without complications Plan Patient is a 88-year-old female with past medical history of CAD hypertension sick sinus syndrome paroxysmal atrial fibrillation who presented to hospital for cardiac cath procedure on elective basis. Patient was admitted to hospital for observation. At time of my evaluation patient denies chest pain shortness of breath nausea vomiting diarrhea constipation dysuria fevers chills dizziness lightheadedness. Assessment CAD s/p cardiac cath Hypertension Hyperlipidemia Paroxysmal atrial fibrillation Diabetes mellitus Plan Monitor on cardiac telemetry restart aspirin, Plavix Consult cardiology Insulin sliding scale Resume home Xarelto, verapamil DVT prophylaxis-on Xarelto
--- NOTE | 2023-09-22 18:57 | PC.NURSE ---
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 Patient A&Ox4 VSS and has no c/o chest pain at this time.
[2023-09-22 20:47] LABS: POC Glucose,Bedside 241 (70-110)
[2023-09-22] MEDS: humaLOG 100 UNITS/ML 3ML VIAL (SSI) SQ (21:04)
[2023-09-22] MEDS: INSULIN GLARGINE 100 UNITS/ML 10ML VIAL 10 UNIT SQ (21:05)
[2023-09-23] VITALS: BP 122/51; PULSE 70; RESP 18; TEMP 36.7; O2SAT 93
[2023-09-23 04:00] VITALS: BP 103/60; PULSE 70; RESP 18; TEMP 36.7; O2SAT 96; BMI 23.6
[2023-09-23 05:28] LABS: POC Glucose,Bedside 306 (70-110)
[2023-09-23 06:10] LABS: Basophils % 0.2 % (0.1-2.0); Eosinophils # 0.2 K/mm3 (0.0-0.4); Eosinophils % 2.6 % (0.1-12.0); Hematocrit 29.4 % (37.0-47.0); Lymphocytes # 1.6 K/mm3 (0.7-4.5); Lymphocytes % 21.3 % (10-50); Mean Corpuscular Hemoglobin 25.1 pg (27.0-31.2); Mean Platelet Volume 7.9 fl (7.4-10.4); Monocytes # 0.3 K/mm3 (0.1-1.0); Monocytes % 4.2 % (1.7-9.3); Neutrophils # 5.2 K/mm3 (1.8-7.8); Neutrophils % 71.6 % (37.0-80.0); Platelet Count 177 K/mm3 (142-424); Red Blood Count 3.87 M/mm3 (4.20-5.40); Red Cell Distribution Width 17.3 % (11.5-17.5); White Blood Count 7.3 K/mm3 (4.8-10.8)
[2023-09-23 06:14] LABS: Chloride 103 mmol/L (98-107); Potassium 4.2 mmoL/L (3.5-5.1); Sodium 137 mmol/L (136-145)
[2023-09-23 06:17] LABS: Blood Urea Nitrogen 26 mg/dl (7-17); Creatinine Clearance Estimated 26 mL/min (50-200); Estimated Glomerular Filt Rate 33 ml/min (>60); GFR (African American) 40 ML/MIN (>60)
[2023-09-23 06:18] LABS: Anion Gap 12.2 mEq/L (5-15); Calcium 8.6 mg/dl (8.4-10.2); Carbon Dioxide 26 mmol/L (22.0-30.0); Glucose 183 mg/dl (74-100)
[2023-09-23 06:19] LABS: Hemoglobin 9.7 g/dL (12.2-16.2)
[2023-09-23] MEDS: humaLOG 100 UNITS/ML 3ML VIAL (SSI) SQ ×2 (06:40→11:51)
[2023-09-23 08:00] VITALS: BP 124/63; PULSE 70; RESP 18; TEMP 36.4; O2SAT 95; O2SAT 96
[2023-09-23] MEDS: ASPIRIN EC 81MG TABLET 81 MG PO (08:04)
--- NOTE | 2023-09-23 10:26 | HMH.PHAINT1 ---
Pharmacy Intervention Comments: Verified home med list with patient and patient's daughter at bedside and with external pharmacy list.
[2023-09-23 11:35] VITALS: BP 130/57; PULSE 71; RESP 18; TEMP 36.6; O2SAT 96
[2023-09-23 11:35] LABS: POC Glucose,Bedside 187 (70-110)
[2023-09-23 12:00] VITALS: PULSE 70
[2023-09-23] MEDS: 0.9 % SODIUM CHLORIDE 1000ML 500 ML 250 ML IV (12:49)
--- NOTE | 2023-09-23 14:58 | EXP.CARD.CON ---
History of Present Illness History of Present Illness Consult date: 09/23/23 Requesting physician: Pauline Bruce Consult reason: known to you Chief complaint: renal monitoring post LHC History of present illness: 88-year-old white female with known CAD. Recent abnormal stress imaging and chest pain. Left heart cath yesterday with successful stenting of PDA and RCA. Extensive contrast so she was kept overnight for observation for contrast-induced nephropathy. Baseline creatinine 1.2, elevated to 1.5. Today she reports no symptoms and feels at her baseline. [facility] Disclaimer: The information contained in this section may have been updated after the patient was seen, as this information can be updated by other users. 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 antigen is unknown, or is not H7 Edema Enterotoxigenic Escherichia coli infection Fatigue Gastritis History of anemia History of cataract History of gastroesophageal reflux (GERD) History of left heart catheterization (LHC) History of pacemaker Hyperkalemia Hypokalemia Hypotension Lactic acidosis Leg pain, bilateral Leukocytosis Palpitations Pancytopenia Pre-syncope Renal insufficiency Right shoulder pain SOB (shortness of breath) SOB (shortness of breath) on exertion Strep throat Surgical History History of appendectomy History of cholecystectomy History of colonoscopy History of esophagogastroduodenoscopy (EGD) History of hysterectomy Hx of tonsillectomy Family History Other No significant family history Social History Smoking Status: Never smoker second hand exposure: No alcohol intake: never substance use type: denies use current occupational status: disabled Travel in the last 8 weeks: [place] the [place] household members: family housing: house caffeine: No Review of Systems Constitutional Constitutional: Denies fatigue and Denies weakness Eyes Eyes: Denies loss of vision ENT Ears, Nose, Mouth, and Throat: Denies hearing loss and Denies vertigo *Cardiovascular Cardiovascular: Denies chest pain, Denies dyspnea and Denies syncope *Respiratory Respiratory: Denies cough and Denies dyspnea *Gastrointestinal Gastrointestinal: Denies change in stool character, Denies nausea and Denies vomiting *Musculoskeletal Musculoskeletal: Denies muscle weakness Integumentary/Breasts Skin/Breast: Denies changing lesions *Neurologic Neurologic: Denies loss of vision, Denies syncope, Denies vertigo and Denies weakness Endocrine Endocrine: Denies fatigue Exam Data for Last 24 hours Vital signs and Labs for Last 24 Hours: Temp Pulse Resp BP Pulse Ox O2 Del Method 97.8 F 70 18 130/57 L 96 Room Air 09/23/23 11:35 09/23/23 12:00 09/23/23 11:35 09/23/23 11:35 09/23/23 11:35 09/23/23 14:49 Laboratory Results - last 24 hr 09/22/23 20:33: POC Glucose 241 H 09/23/23 05:22: POC Glucose 306 H* 09/23/23 05:50: WBC 7.3, RBC 3.87 L, Hgb 9.7 L D, Hct 29.4 L, MCV 76.0 L, MCH 25.1 L, MCHC 33.0, RDW 17.3, Plt Count 177, MPV 7.9, Neut % (Auto) 71.6, Lymph % (Auto) 21.3, [place] % (Auto) 4.2, Eos % (Auto) 2.6, Baso % (Auto) 0.2, Neut # (Auto) 5.2, Lymph # (Auto) 1.6, [place] # (Auto) 0.3, Eos # (Auto) 0.2, Baso # (Auto) 0.0, Sodium 137, Potassium 4.2, Chloride 103, Carbon Dioxide 26, Anion Gap 12.2, BUN 26 H, Creatinine 1.50 H D, Estimated Creat Clear 26, Estimated GFR 33 L, Est GFR ( Amer) 40 L D, Glucose 183 H D, Calcium 8.6 09/23/23 11:24: POC Glucose 187 H I & O for Last 24 hours: Intake & Output 09/20/23 09/21/23 09/22/23 09/23/23 23:59 23:59 23:59 23:59 Intake Total 240 / 240 630 / 630 Output Total 0 / 0 0 / 0 Balance 240 / 240 630 / 630 Weight 125 lb 133 lb 9 oz Constitutional Constitutional: no acute distress and cooperative *Routine HEENT Exam Eye: Present PERRL *Routine Respiratory Exam Respiratory: Present CTA bilaterally; Absent accessory muscle use, wheezes or crackles *Routine Cardiovascular Exam Cardiovascular: Present RRR, Normal S1 and Normal S2; Absent murmur, gallop or rubs Comments: Right radial access site normal on inspection and palpation *Routine Abdominal Exam Abdominal: Present soft; Absent tenderness *Routine Extremities Exam Extremities: Present pulses intact; Absent cyanosis or edema *Routine Skin Exam Skin: Present intact; Absent erythema or wounds *Routine Neurological Exam Neurological: Present alert and oriented X3 Routine Psychiatric Exam Psychiatric: Present cooperative Meds Home Medications and Allergies Home Medications Medication Instructions Recorded Confirmed Type cyanocobalamin (vitamin B-12) 2,500 mcg sublingual BID Supplement 08/18/21 09/23/23 History 2,500 mcg sublingual tablet multivitamin-ferrous 1 each PO DAILY Supplement 08/18/21 09/23/23 History fumarate-folic acid 18 mg-400 mcg tablet fluticasone propionate 50 1 spray intranasal DAILY Allergy 07/10/23 09/23/23 Rx mcg/actuation nasal symptoms #16 grams spray,suspension insulin lispro protamine-lispro 15 unit SQ BID Diabetes 08/23/23 09/23/23 History 100 unit/mL (75-25) subcutaneous pen isosorbide mononitrate 30 mg 15 mg PO ONCE Chest Pain 09/22/23 09/23/23 History tablet,extended release 24 hr aspirin 81 mg tablet,delayed 81 mg PO HS CAD 30 days #0 tabs 09/23/23 09/23/23 Rx release (Adult Low Dose Aspirin) atorvastatin 40 mg tablet 40 mg PO DAILY #30 tabs 09/23/23 Rx bisoprolol fumarate 5 mg tablet 5 mg PO DAILY High Blood Pressure 09/23/23 09/23/23 History cetirizine 10 mg tablet 10 mg PO DAILY Allergy Symptoms 09/23/23 09/23/23 History clopidogrel 75 mg tablet (Plavix) 75 mg PO DAILY #30 tabs 09/23/23 Rx digoxin 125 mcg (0.125 mg) tablet 125 mcg PO DAILY Heart Rhythm 09/23/23 09/23/23 History docusate sodium 100 mg capsule 100 mg PO DAILY Constipation 09/23/23 09/23/23 History empagliflozin 10 mg tablet 10 mg PO DAILY Heart Disease 09/23/23 09/23/23 History (Jardiance) insulin glargine 100 unit/mL (3 33 unit SQ DAILY Diabetes 09/23/23 09/23/23 History mL) subcutaneous pen (Lantus Solostar U-100 Insulin) levothyroxine 50 mcg tablet 50 mcg PO DAILY HYPOTHYROIDISM 09/23/23 09/23/23 History mirabegron 25 mg tablet,extended 25 mg PO DAILY URINARY SYMPTOMS 09/23/23 09/23/23 History release 24 hr (Myrbetriq) omeprazole 40 mg capsule,delayed 40 mg PO DAILY Acid Reflux 09/23/23 09/23/23 History release ondansetron 4 mg disintegrating 4 mg PO Q6H PRN Nausea And Vomiting 09/23/23 09/23/23 History tablet rivaroxaban 15 mg tablet (Xarelto) 15 mg PO QPMWITHMEAL Blood Thinner 09/23/23 09/23/23 History sertraline 100 mg tablet 100 mg PO DAILY mood 09/23/23 09/23/23 History verapamil 120 mg 24 hr 120 mg PO DAILY High Blood Pressure 09/23/23 09/23/23 History capsule,extended release New Prescriptions to Start Prescriptions: atorvastatin Teo,Irfan clopidogrel [Plavix] TeoIrfan Allergies Allergy/AdvReac Type Severity Reaction Status Date / Time methylprednisolone Allergy Mild Elevated Verified 09/20/23 14:01 glucose Assessment and Plan *Assessment and plan (1) Coronary artery disease: Status: Chronic Qualifiers: Coronary Disease-Associated Artery/Lesion type: [place] artery [place] vs. transplanted heart: [place] heart Associated angina: with other forms of angina Qualified Code(s): I25.118 - Atherosclerotic heart disease of [place] coronary artery with other forms of angina pectoris Category: Medical Code(s): I25.10 - Atherosclerotic heart disease of [place] coronary artery without angina pectoris (2) CKD (chronic kidney disease) stage 3, GFR 30-59 ml/min: Status: Acute Category: Medical Code(s): N18.30 - Chronic kidney disease, stage 3 unspecified (3) PAF (paroxysmal atrial fibrillation): Status: Acute Category: Medical Code(s): I48.0 - Paroxysmal atrial fibrillation Plan CAD s/p successful PCI to PDA, RCA 09/22 - CCS = 0 - Cont DAPT, BB, Statin CKD-3 - baseline 1.2, elevated to 1.5 today - give 500mL NS over 2 hours then ok to DC home. Repeat labs 1 week PAF - SR here - cont home meds CV stable for DC after fluids
--- NOTE | 2023-09-24 11:36 | CARE MANAGER ---
Contacted patient related to hospital discharge. She states she is doing well. She denies questions or concerns. She is aware of her follow up appointments but is going to call [facility] to reschedule her appt with Dana and I transferred her to cardiology to reschedule her cardiology appt. She has her new medications. BRANDYN Lockett
--- NOTE | 2023-10-07 19:20 | P.DS_ITS ---
General Admission date:: 09/22/23 Discharge date: 09/23/23 HPI HPI HPI: Patient is a 88-year-old female with past medical history of CAD hypertension sick sinus syndrome paroxysmal atrial fibrillation who presented to hospital for cardiac cath procedure on elective basis. Patient was admitted to hospital for observation. At time of my evaluation patient denies chest pain shortness of breath nausea vomiting diarrhea constipation dysuria fevers chills dizziness lightheadedness. Hospital Course Hospital Course Hospital Course: Patient was seen and evaluated at the bedside on the day of discharge. Patient is stable for discharge. Patient wishes to be discharged. All patient questions were answered and patient was given time to ask questions. Patient was discharged in stable condition. Patient understands that she can return to ER in case of any sudden changes in health. Total time spent on DC - 38 mins Patient is a 88-year-old female with past medical history of CAD hypertension sick sinus syndrome paroxysmal atrial fibrillation who presented to hospital for cardiac cath procedure on elective basis. Patient was admitted to hospital for observation. At time of my evaluation patient denies chest pain shortness of breath nausea vomiting diarrhea constipation dysuria fevers chills dizziness lightheadedness. Assessment CAD s/p cardiac cath Hypertension Hyperlipidemia Paroxysmal atrial fibrillation Diabetes mellitus ok to dc per cardiology, prescriptions sent Exam Data for Last 24 hours Vital signs and Labs for Last 24 Hours: Temp Pulse Resp BP Pulse Ox O2 Del Method 97.8 F 70 18 130/57 L 96 Room Air 09/23/23 11:35 09/23/23 12:00 09/23/23 11:35 09/23/23 11:35 09/23/23 11:35 09/23/23 14:49 I & O for Last 24 hours: Intake & Output 09/20/23 09/21/23 09/22/23 09/23/23 23:59 23:59 23:59 23:59 Intake Total 240 / 240 630 / 630 Output Total 0 / 0 0 / 0 Balance 240 / 240 630 / 630 Weight 125 lb 133 lb 9 oz Constitutional Constitutional: no acute distress and cooperative *Routine HEENT Exam Eye: Present PERRL *Routine Respiratory Exam Respiratory: Present CTA bilaterally; Absent accessory muscle use, wheezes or crackles *Routine Cardiovascular Exam Cardiovascular: Present RRR, Normal S1 and Normal S2; Absent murmur, gallop or rubs *Routine Abdominal Exam Abdominal: Present soft; Absent tenderness *Routine Extremities Exam Extremities: Present pulses intact; Absent cyanosis or edema *Routine Skin Exam Skin: Present intact; Absent erythema or wounds *Routine Neurological Exam Neurological: Present alert and oriented X3 Routine Psychiatric Exam Psychiatric: Present cooperative DS: Diagnosis Discharge Diagnosis (1) Coronary artery disease: Status: Chronic Code(s): I25.10 - Atherosclerotic heart disease of [place] coronary artery without angina pectoris Qualifiers: Associated angina: with other forms of angina Coronary Disease- Associated Artery/Lesion type: [place] artery [place] vs. transplanted heart: [place] heart Qualified Code(s): I25.118 - Atherosclerotic heart disease of [place] coronary artery with other forms of angina pectoris (2) CKD (chronic kidney disease) stage 3, GFR 30-59 ml/min: Status: Acute Code(s): N18.30 - Chronic kidney disease, stage 3 unspecified (3) PAF (paroxysmal atrial fibrillation): Status: Acute Code(s): I48.0 - Paroxysmal atrial fibrillation Meds Home Medications and Allergies Home Medications Medication Instructions Recorded Confirmed Type cyanocobalamin (vitamin B-12) 2,500 mcg sublingual BID Supplement 08/18/21 10/06/23 History 2,500 mcg sublingual tablet multivitamin-ferrous 1 each PO DAILY Supplement 08/18/21 10/06/23 History fumarate-folic acid 18 mg-400 mcg tablet fluticasone propionate 50 1 spray intranasal DAILY Allergy 07/10/23 10/06/23 Rx mcg/actuation nasal symptoms #16 grams spray,suspension insulin lispro protamine-lispro 15 unit SQ BID Diabetes 08/23/23 10/06/23 History 100 unit/mL (75-25) subcutaneous pen isosorbide mononitrate 30 mg 15 mg PO ONCE Chest Pain 09/22/23 10/06/23 History tablet,extended release 24 hr cetirizine 10 mg tablet 10 mg PO DAILY Allergy Symptoms 09/23/23 10/06/23 History digoxin 125 mcg (0.125 mg) tablet 125 mcg PO DAILY Heart Rhythm 09/23/23 10/06/23 History docusate sodium 100 mg capsule 100 mg PO DAILY Constipation 09/23/23 10/06/23 History insulin glargine 100 unit/mL (3 33 unit SQ DAILY Diabetes 09/23/23 10/06/23 History mL) subcutaneous pen (Lantus Solostar U-100 Insulin) levothyroxine 50 mcg tablet 50 mcg PO DAILY HYPOTHYROIDISM 09/23/23 10/06/23 History mirabegron 25 mg tablet,extended 25 mg PO DAILY URINARY SYMPTOMS 09/23/23 10/06/23 History release 24 hr (Myrbetriq) rivaroxaban 15 mg tablet (Xarelto) 15 mg PO QPMWITHMEAL Blood Thinner 09/23/23 10/06/23 History sertraline 100 mg tablet 100 mg PO DAILY mood 09/23/23 10/06/23 History verapamil 120 mg 24 hr 120 mg PO DAILY High Blood Pressure 09/23/23 10/06/23 History capsule,extended release aspirin 81 mg tablet,delayed 81 mg PO HS CAD 30 days #90 tabs 10/06/23 10/06/23 Rx release (Adult Low Dose Aspirin) atorvastatin 40 mg tablet 40 mg PO DAILY #30 tabs 10/06/23 10/06/23 Rx bisoprolol fumarate 5 mg tablet 5 mg PO DAILY High Blood Pressure 10/06/23 10/06/23 Rx #90 tabs clopidogrel 75 mg tablet (Plavix) 75 mg PO DAILY #30 tabs 10/06/23 10/06/23 Rx empagliflozin 10 mg tablet 10 mg PO DAILY Heart Disease #90 10/06/23 10/06/23 Rx (Jardiance) tabs omeprazole 40 mg capsule,delayed 40 mg PO DAILY Acid Reflux #90 caps 10/06/23 Rx release ondansetron 4 mg disintegrating 4 mg PO Q6H PRN Nausea And 10/06/23 Rx tablet Vomiting #30 tabs ranolazine 500 mg tablet,extended 500 mg PO BID #60 tabs 10/06/23 10/06/23 Rx release,12 hr New Prescriptions to Start Prescriptions: Allergies Allergy/AdvReac Type Severity Reaction Status Date / Time methylprednisolone Allergy Mild Elevated Verified 10/06/23 13:36 glucose Discharge Plan Disposition Patient Disposition: Home, Self-Care Condition: Good Follow up Plan Follow up with: Dana Munoz APRN [Nurse Practitioner] - 09/30/23 9:45 am Elvin Keith MD [Staff Physician] - 10/06/23 10:15 am Prescriptions/Medication Reconciliation: Continued insulin lispro protamin-lispro 100 unit/mL (75-25) insulin pen 15 unit SQ BID fluticasone propionate 50 mcg/actuation spray,suspension 1 spray INTRANASAL DAILY Qty: 16 2RF cyanocobalamin (vitamin B-12) 2,500 MCG tablet, sublingual 2,500 mcg SL BID sdvtxqicisjc-ebre-prtpl acid 1 EACH tablet 1 each PO DAILY isosorbide mononitrate 30 mg tablet extended release 24 hr 15 mg PO ONCE Patient Comments: TAKE ONE TABLET BY MOUTH EVERY DAY FOR CHEST pain cetirizine 10 mg tablet 10 mg PO DAILY sertraline 100 mg tablet 100 mg PO DAILY Rx Instructions: TAKE 1 TABLET BY MOUTH EVERY DAY FOR mood levothyroxine 50 mcg tablet 50 mcg PO DAILY docusate sodium 100 mg capsule 100 mg PO DAILY digoxin 125 mcg (0.125 mg) tablet 125 mcg PO DAILY insulin glargine [Lantus Solostar U-100 Insulin] 100 unit/mL (3 mL) insulin pen 33 unit SQ DAILY Rx Instructions: INJECT 33 UNITS SUBCUTANEOUSLY EVERY DAY AT BEDTIME FOR DIABETES Xarelto 15 mg tablet 15 mg PO QPMWITHMEAL Myrbetriq 25 mg tablet extended release 24 hr 25 mg PO DAILY verapamil 120 mg capsule,ext rel. pellets 24 hr 120 mg PO DAILY Discontinued aspirin [Adult Low Dose Aspirin] 81 mg tablet,delayed release (DR/EC) 81 mg PO HS atorvastatin 10 mg tablet 10 mg PO DAILY No Action aspirin [Adult Low Dose Aspirin] 81 mg tablet,delayed release (DR/EC) 81 mg PO HS 30 Days Qty: 90 4RF atorvastatin 40 mg tablet 40 mg PO DAILY Qty: 30 0RF bisoprolol fumarate 5 mg tablet 5 mg PO DAILY Qty: 90 4RF clopidogrel [Plavix] 75 mg tablet 75 mg PO DAILY Qty: 30 0RF Jardiance 10 mg tablet 10 mg PO DAILY Qty: 90 0RF ranolazine 500 mg tablet extended release 12 hr 500 mg PO BID Qty: 60 2RF omeprazole 40 mg capsule,delayed release(DR/EC) 40 mg PO DAILY Qty: 90 0RF ondansetron 4 mg tablet,disintegrating 4 mg PO Q6H PRN (Reason: Nausea And Vomiting) Qty: 30 0RF Problem Reconciliation Problems Reviewed?: Yes Patient Discharge Instructions Patient Instructions: DI for Cardiac Catheterization, DI for Surgical Site Infection, DI for Moderate Sedation, DI for Post-Surgical Bleeding Providers Primary Care Provider: Richard Gutiérrezit Provider: Pauline Bruce Attending Provider: Pauline Bruce
== END 2023-09-23 15:20 | disposition home or self-care (01) ==
LOC: 2ND 13:45
PROVIDERS: Internal Medicine; Admitting Provider Internal Medicine; PCP Internal Medicine; Visit Provider Internal Medicine
DX: E78.5 Hyperlipidemia, unspecified (principal); I42.9 Cardiomyopathy, unspecified; I48.0 Paroxysmal atrial fibrillation; I50.9 Heart failure, unspecified; I73.9 Peripheral vascular disease, unspecified; R53.83 Other fatigue; R94.39 Abnormal result of other cardiovascular function study; Z95.0 Presence of cardiac pacemaker; I25.118 Atherosclerotic heart disease of native coronary artery with other forms of angina pectoris; I13.0 Hypertensive heart and chronic kidney disease with heart failure and stage 1 through stage 4 chronic kidney disease, or unspecified chronic kidney disease; E78.2 Mixed hyperlipidemia; E11.22 Type 2 diabetes mellitus with diabetic chronic kidney disease; Z79.4 Long term (current) use of insulin; N18.30 Chronic kidney disease, stage 3 unspecified; I49.5 Sick sinus syndrome; Z79.01 Long term (current) use of anticoagulants
CPT/HCPCS: 36415; 80048; 82962; 85025; 85347; 92928; 92972; 99152; 99153; C1725; C1761; C1769; C1874; C1876; C9600; G0378; J1644; Q9967

== ENCOUNTER 2023-10-11 23:28 | Outpatient (CLI) | payer MEDICARE, MEDICAID, SELFPAY ==
[2023-10-11 19:45] LABS: Basophils % 0.2 % (0.1-2.0); Eosinophils # 0.2 K/mm3 (0.0-0.4); Eosinophils % 1.6 % (0.1-12.0); Hematocrit 32.7 % (37.0-47.0); Hemoglobin 10.5 g/dL (12.2-16.2); Lymphocytes # 1.5 K/mm3 (0.7-4.5); Lymphocytes % 14.3 % (10-50); Mean Corpuscular HGB Conc 32.1 g/dL (31.8-35.4); Mean Corpuscular Hemoglobin 24.5 pg (27.0-31.2); Mean Corpuscular Volume 76.4 fl (81-99); Mean Platelet Volume 8.4 fl (7.4-10.4); Monocytes # 0.4 K/mm3 (0.1-1.0); Monocytes % 3.7 % (1.7-9.3); Neutrophils # 8.2 K/mm3 (1.8-7.8); Neutrophils % 80.2 % (37.0-80.0); Platelet Count 216 K/mm3 (142-424); Red Blood Count 4.28 M/mm3 (4.20-5.40); Red Cell Distribution Width 17.3 % (11.5-17.5); White Blood Count 10.2 K/mm3 (4.8-10.8)
[2023-10-11 21:16] LABS: Folate > 20.00 ng/mL; Vitamin B12 > 1000 pg/mL (239-931)
[2023-10-11 21:57] LABS: Ferritin 9.54 ng/ml (11.1-264)
[2023-10-13 18:21] LABS: Peripheral Smear Review Scanned Result
== END 2023-10-11 23:59 ==
LOC: LAB.DROPOF 23:30
PROVIDERS: PCP Internal Medicine; Visit Provider Internal Medicine
DX: D64.9 Anemia, unspecified (principal); R53.1 Weakness
CPT/HCPCS: 82607; 82728; 82746; 85025

== ENCOUNTER 2023-11-26 12:18 | Emergency (ER) | payer MEDICARE, MEDICAID, SELFPAY ==
[2023-11-26 12:19] VITALS: BP 139/65; PULSE 70; RESP 18; TEMP 36.8; O2SAT 96; BMI 22.3
--- NOTE | 2023-11-26 12:29 | ECG_ITS ---
APPROVED REPORT Exam: Resting ECG HR:69 bpm ECG Measurements Heart Rate 69 AXES IA 277 P -51 QRSd 116 QRS 67 QT 401 T 45 QTc 421 Conclusion ELECTRONIC ATRIAL PACEMAKER MODERATE INTRAVENTRICULAR CONDUCTION DELAY [110+ ms QRS DURATION] ABNORMAL RHYTHM ECG UNCONFIRMED REPORT Electronically signed by : Alexy Rivera MD 11/27/2023 12:37:00
[2023-11-26 12:47] LABS: Coronavirus 19, PCR Not Detected (NotDetected); Influenza A, PCR Not Detected (NotDetected); Influenza B, PCR Not Detected (NotDetected)
[2023-11-26 13:00] VITALS: BP 135/63; PULSE 70; O2SAT 97
[2023-11-26] MEDS: OXYMETAZOLINE NASAL SPRAY 0.05% 15ML NS (13:12)
[2023-11-26 13:30] VITALS: BP 132/62; PULSE 70; RESP 16; O2SAT 96
--- NOTE | 2023-11-26 13:34 | ED_ITS ---
Discharge Plan Disposition Patient Disposition: Home, Self-Care Condition: Good Prescriptions Prescriptions: New epfcvjsglkuwwbr-cpfzwsptn-AV [Bromfed DM] 2-30-10 mg/5 mL syrup 5 ml PO Q6H PRN (Reason: cold symptoms) Qty: 118 0RF No Action aspirin [Adult Low Dose Aspirin] 81 mg tablet,delayed release (DR/EC) 81 mg PO HS 30 Days Qty: 90 4RF Jardiance 10 mg tablet 20 mg PO DAILY 30 Days Qty: 60 2RF ranolazine 1,000 mg tablet extended release 12 hr 1,000 mg PO BID 90 Days Qty: 180 2RF fluticasone propionate 50 mcg/actuation spray,suspension 1 spray INTRANASAL DAILY Qty: 16 2RF omeprazole 40 mg capsule,delayed release(DR/EC) 40 mg PO DAILY Qty: 90 0RF ondansetron 4 mg tablet,disintegrating 4 mg PO Q6H PRN (Reason: Nausea And Vomiting) Qty: 30 0RF (DME) FreeStyle Kai 14 Day Sensor Kit See Rx Instructions .Route Qty: 2 4RF Rx Instructions: As directed or bid insulin lispro protamin-lispro 100 unit/mL (75-25) insulin pen 15 unit SQ DAILY Qty: 15 0RF levothyroxine 50 mcg tablet See Rx Instructions .ROUTE .COMPLEX Qty: 90 2RF Dose Instruction: TAKE ONE TABLET BY MOUTH EVERY DAY Rx Instructions: TAKE ONE TABLET BY MOUTH EVERY DAY verapamil 120 mg capsule,ext rel. pellets 24 hr 120 mg PO DAILY Qty: 90 0RF insulin glargine [Lantus Solostar U-100 Insulin] 100 unit/mL (3 mL) insulin pen See Rx Instructions .ROUTE .COMPLEX Qty: 15 0RF Dose Instruction: INJECT 38 UNITS SUBCUTANEOUSLY EVERY DAY AT BEDTIME FOR DIABETES Rx Instructions: INJECT 38 UNITS SUBCUTANEOUSLY EVERY DAY AT BEDTIME FOR DIABETES clopidogrel [Plavix] 75 mg tablet 75 mg PO DAILY Qty: 30 0RF docusate sodium 100 mg capsule 100 mg PO DAILY Qty: 90 0RF atorvastatin 40 mg tablet 40 mg PO DAILY Qty: 30 0RF ferrous gluconate 324 mg (38 mg iron) tablet 324 mg PO DAILY 60 Days Qty: 60 2RF cetirizine 10 mg tablet See Rx Instructions .ROUTE .COMPLEX Qty: 90 0RF Dose Instruction: TAKE ONE TABLET BY MOUTH EVERY DAY AT BEDTIME FOR ALLERGIES Rx Instructions: TAKE ONE TABLET BY MOUTH EVERY DAY AT BEDTIME FOR ALLERGIES Xarelto 15 mg tablet See Rx Instructions .ROUTE .COMPLEX Qty: 90 0RF Dose Instruction: TAKE ONE TABLET BY MOUTH EVERY EVENING --TAKE WITH FOOD-- Rx Instructions: TAKE ONE TABLET BY MOUTH EVERY EVENING --TAKE WITH FOOD-- cyanocobalamin (vitamin B-12) 2,500 MCG tablet, sublingual 2,500 mcg SL BID twwjbcloijvm-jgxc-boyzi acid 1 EACH tablet 1 each PO DAILY isosorbide mononitrate 30 mg tablet extended release 24 hr 15 mg PO ONCE Patient Comments: TAKE ONE TABLET BY MOUTH EVERY DAY FOR CHEST pain Myrbetriq 25 mg tablet extended release 24 hr 25 mg PO DAILY Referrals Follow up/Referrals: Richard Gutiérrez DO [Primary Care Provider] - See instructions Activity Restrictions/Add. Instructions Additional Instructions/Restrictions: You were evaluated in the emergency department today. I recommend using Afrin in the setting of acute bleeding. Humidify your air with a vaporizer at home, and also I recommend using Vaseline to moisten your nose. Follow-up closely with your primary care provider. You may also benefit from follow-up with ENT. Clinical Impressions Clinical Impression: Viral URI with cough, Epistaxis Instructions Patient Instructions: DI for Viral Upper Respiratory Infection -- Adult, DI for Nosebleed Discharge ED Provider: Miley Mccallum General Adult HPI General Chief complaint: Upper Respiratory Infection Stated complaint: bloody nose, congestion Time Seen by Provider: 11/26/23 12:45 Mode of Arrival: Wheelchair Source of Information: Patient Limitations: No Limitations Description of Symptoms (Recalled from ER Triage Doc. by RN): PT REPORTS NONPRODUCTIVE COUGH, CONGESTION, AND NOSEBLEEDS FOR THE LAST 2-3 DAYS, BLEEDING IS CONTROLLED AT THIS TIME IN HER NOSE, DENIES SOB, CP, FEVER. OR ANY OTHER SYM PTOMS History of Present Illness HPI narrative: This patient is an 88-year-old female with a history of atrial fibrillation on Xarelto, CKD, type 2 diabetes, anemia, and hypothyroidism presenting to the emergency department for evaluation with concern for intermittent epistaxis from both sides of the nose, cough, and congestion for the last 2 to 3 days. She is not currently having any bleeding at this time. She denies any other concerns, such as fevers, chills, chest pain, shortness of breath, vision changes, or other concerns. She has been checking her blood pressure at home and it has been fine. Related Data Home Medications Medication Instructions Recorded Confirmed cyanocobalamin (vitamin B-12) 2,500 mcg sublingual BID Supplement 08/18/21 11/18/23 2,500 mcg sublingual tablet multivitamin-ferrous 1 each PO DAILY Supplement 08/18/21 11/18/23 fumarate-folic acid 18 mg-400 mcg tablet isosorbide mononitrate 30 mg 15 mg PO ONCE Chest Pain 09/22/23 11/18/23 tablet,extended release 24 hr mirabegron 25 mg tablet,extended 25 mg PO DAILY URINARY SYMPTOMS 09/23/23 11/18/23 release 24 hr (Myrbetriq) Previous Rx's Medication Instructions Recorded fluticasone propionate 50 1 spray intranasal DAILY Allergy 07/10/23 mcg/actuation nasal symptoms #16 grams spray,suspension aspirin 81 mg tablet,delayed 81 mg PO HS CAD 30 days #90 tabs 10/06/23 release (Adult Low Dose Aspirin) omeprazole 40 mg capsule,delayed 40 mg PO DAILY Acid Reflux #90 caps 10/06/23 release ondansetron 4 mg disintegrating 4 mg PO Q6H PRN Nausea And 10/06/23 tablet Vomiting #30 tabs flash glucose sensor (FreeStyle #2 ea 10/11/23 Kai 14 Day Sensor kit) empagliflozin 10 mg tablet 20 mg PO DAILY Heart Disease 30 10/13/23 (Jardiance) days #60 tabs insulin lispro protamine-lispro 15 unit (0.15 mL) SQ DAILY #15 mL 10/14/23 100 unit/mL (75-25) subcutaneous pen levothyroxine 50 mcg tablet See Rx Instructions .Route 10/18/23 .COMPLEX #90 tabs verapamil 120 mg 24 hr 120 mg PO DAILY High Blood 10/20/23 capsule,extended release Pressure #90 caps insulin glargine 100 unit/mL (3 See Rx Instructions .Route 10/26/23 mL) subcutaneous pen (Lantus .COMPLEX #15 mL Solostar U-100 Insulin) atorvastatin 40 mg tablet 40 mg PO DAILY #30 tabs 11/08/23 clopidogrel 75 mg tablet (Plavix) 75 mg PO DAILY #30 tabs 11/08/23 docusate sodium 100 mg capsule 100 mg PO DAILY Constipation #90 11/08/23 caps ferrous gluconate 324 mg (38 mg 324 mg PO DAILY 60 days #60 tabs 11/08/23 iron) tablet cetirizine 10 mg tablet See Rx Instructions .Route 11/17/23 .COMPLEX #90 tabs rivaroxaban 15 mg tablet (Xarelto) See Rx Instructions .Route 11/17/23 .COMPLEX #90 tabs ranolazine 1,000 mg 1,000 mg PO BID 90 days #180 tabs 11/18/23 tablet,extended release,12 hr kogkmztprniubmv-yhrkdckofukahaq-MD 5 ml PO Q6H PRN cold symptoms #118 11/26/23 2 mg-30 mg-10 mg/5 mL oral syrup mL (Bromfed DM) Allergies Allergy/AdvReac Type Severity Reaction Status Date / Time methylprednisolone Allergy Mild Elevated Verified 11/26/23 12:34 glucose [facility] Disclaimer: The information contained in this section may have been updated after the patie nt was seen, as this information can be updated by other users. 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 antigen is unknown, or is not H7 Edema Enterotoxigenic Escherichia coli infection Fatigue Fatigue Gastritis Gastroenteritis History of anemia History of cataract History of gastroesophageal reflux (GERD) History of left heart catheterization (LHC) History of pacemaker HLD (hyperlipidemia) HTN (hypertension) Hyperglycemia Hyperglycemia due to diabetes mellitus Hyperglycemia without ketosis Hyperkalemia Hypokalemia Hypotension Lactic acidosis Lactose intolerance Leg pain, bilateral Leukocytosis Nausea vomiting and diarrhea PAF (paroxysmal atrial fibrillation) Palpitations Pancytopenia Peripheral arterial disease Pre-syncope Primary osteoarthritis of right shoulder Pulmonary HTN Renal insufficiency Right shoulder pain SOB (shortness of breath) SOB (shortness of breath) on exertion SSS (sick sinus syndrome) Strep throat Urinary tract infection Viral gastroenteritis Surgical History History of appendectomy History of cholecystectomy History of colonoscopy History of esophagogastroduodenoscopy (EGD) History of hysterectomy Hx of tonsillectomy Family History Other No significant family history Social History Smoking Status: Never smoker second hand exposure: No alcohol intake: never substance use type: denies use current occupational status: disabled Travel in the last 8 weeks: Inside the [place] household members: family housing: house caffeine: No ROS Obtained: Yes All systems reviewed & no additional complaints except as documented Physical Exam General General appearance: alert and in no apparent distress Head Head exam: atraumatic and normocephalic Eye Eye exam: Present normal appearance, PERRL and EOMI ENT ENT exam: Present normal oropharynx, mucous membranes moist, normal external ear exam and other (dried blood both nares) Neck Neck exam: Present normal inspection, full ROM and trachea midline; Absent tenderness Chest Chest inspection: Present normal inspection and symmetric chest wall rise; Absent tenderness Respiratory Respiratory exam: Present normal lung sounds bilaterally; Absent respiratory distress, wheezes, stridor or accessory muscle use Cardiovascular Cardiovascular exam: Present regular rate and normal rhythm Abdominal Exam Abdominal exam: Present soft; Absent distention, tenderness or guarding Extremities Exam Extremities exam: Present normal inspection, full ROM and normal capillary refill; Absent tenderness or edema Back Exam Back exam: Present normal inspection and full ROM; Absent tenderness Neurological Exam Neurological exam: Present alert, oriented X3, CN II-XII intact and normal gait; Absent motor sensory deficit Psychiatric Psychiatric exam: Present normal affect and normal mood Skin Skin exam: Present warm and dry Medical Decision Making Medical Records Medical records reviewed: Yes I reviewed the patient's medical records. Thomas Inquiry Pt receiving controlled substance: No Vital Signs: 11/26/23 12:19 11/26/23 13:00 11/26/23 13:30 Temperature 98.3 F Temperature Source Oral Pulse Rate 70 70 Pulse Rate [Left Radial] 70 Respiratory Rate 18 16 Blood Pressure 135/63 132/62 Blood Pressure [Right Arm] 139/65 Blood Pressure Mean 103 Blood Pressure Mean [Right Arm] 89 Blood Pressure Source Blood Pressure Source [Right Arm] Automatic Cuff Blood Pressure Position Blood Pressure Position [Right Arm] Sitting 02 Sat by Pulse Oximetry 96 97 96 Oxygen Delivery Method Room Air Room Air 11/26/23 14:04 11/26/23 14:30 11/26/23 15:12 Temperature 97.9 F Temperature Source Oral Pulse Rate 70 70 70 Pulse Rate [Left Radial] Respiratory Rate 18 16 Blood Pressure 127/56 L 128/63 117/77 Blood Pressure [Right Arm] Blood Pressure Mean 93 Blood Pressure Mean [Right Arm] Blood Pressure Source Automatic Cuff Blood Pressure Source [Right Arm] Blood Pressure Position Sitting Blood Pressure Position [Right Arm] 02 Sat by Pulse Oximetry 95 94 L Oxygen Delivery Method Room Air Room Air Lab Data Lab results reviewed: Yes I reviewed the patient's lab results. Lab Results 11/26/23 12:32: SARS-CoV-2 (PCR) Not detected, Influenza A Untype (PCR) Not dete cted, Influenza Type B (PCR) Not detected 11/26/23 13:25: WBC 6.1, RBC 3.88 L, Hgb 10.5 L, Hct 33.7 L, MCV 86.9, MCH 27.1, MCHC 31.2 L, RDW 18.7 H, Plt Count 195, MPV 8.3, Neut % (Auto) 71.0, Lymph % (Auto) 21.8, [place] % (Auto) 4.6, Eos % (Auto) 2.4, Baso % (Auto) 0.1, Neut # (Auto) 4.4, Lymph # (Auto) 1.3, [place] # (Auto) 0.3, Eos # (Auto) 0.2, Baso # (Auto) 0.0, PT 16.9 H, INR 1.61 H, APTT 34.1 H, Sodium 137, Potassium 4.9, Chloride 106, Carbon Dioxide 27, Anion Gap 8.9, BUN 31 H, Creatinine 1.30 H, Estimated Creat Clear 28, Estimated GFR 39 L, Est GFR ( Amer) 47 L, Glucose 134 H, Calcium 9.1, Total Bilirubin 0.6, AST 43 H, ALT 17, Alkaline Phosphatase 81, Total Protein 7.1, Albumin 4.0, Globulin 3.1, Albumin/Globulin Ratio 1.3 11/26/23 13:25 11/26/23 13:25 Orders (Tests/Meds): ED MEDICATIONS Discontinued Medications Generic Name Dose Route Start Last Admin Trade Name Rufino PRN Reason Stop Dose Admin Oxymetazoline HCl 1 ml 11/26/23 13:00 11/26/23 13:12 Oxymetazoline Nasal [place] 0.05% 15ml NS 11/26/23 13:01 1 ml ONCE ONE Administration ORDERS Category Date Time Status Activated Partial Thrombo Time Stat Lab 11/26/23 13:25 Completed Complete Blood Count Auto Diff Stat Lab 11/26/23 13:25 Completed Comprehensive Metabolic Panel Stat Lab 11/26/23 13:25 Completed Prothrombin Time INR Stat Lab 11/26/23 13:25 Completed Rapid PCR Covid and Flu A/B Stat Lab 11/26/23 12:32 Completed ECG initial [place] Routine Y 11/26/23 12:29 Completed ECG Data Tracing #1: I reviewed this ECG and interpreted as documented below: Atrially paced rhythm at [address] changes concerning for ischemia. Intraventricular conduction delay noted. ECG initial impression date: 11/26/23 ECG initial impression time: 12:31 Medical Decision Narrative: In summary, this patient is a 88-year-old female presenting to the Emergency Department for evaluation of epistaxis, cough, congestion. Differential diagnoses considered include but are not limited to viral syndrome, allergic rhinitis, sinusitis, posterior nosebleed, anterior nosebleed, nasal polyp coagulopathy, hypertensive urgency. Ruling out the most morbid conditions drove assessment. On exam, the patient is well-appearing with reassuring vital signs on cardiac telemetry. blood pressure slightly elevated but not acutely concerning. She is not having bleeding at this time, and cardiopulmonary exam is normal. Workup included CBC, CMP, and coags. Patient was provided with Afrin to use at home as needed for epistaxis. She is also given instructions for humidification as well as lubrication with Vaseline. On reassessment, patient is resting comfortably. She has had no recurrence of epistaxis. Labs do not demonstrate any acutely concerning abnormalities. Given this, feel that she is appropriate for discharge with instructions for outpatient follow-up and supportive management. She was given prescription for Bromfed for URI symptoms, and she was discharged in stable condition after all questions were answered. Critical Care Critical Care Time Critical Care Time: No
[2023-11-26 13:39] LABS: Basophils % 0.1 % (0.1-2.0); Eosinophils # 0.2 K/mm3 (0.0-0.4); Eosinophils % 2.4 % (0.1-12.0); Hematocrit 33.7 % (37.0-47.0); Hemoglobin 10.5 g/dL (12.2-16.2); Lymphocytes # 1.3 K/mm3 (0.7-4.5); Lymphocytes % 21.8 % (10-50); Mean Corpuscular HGB Conc 31.2 g/dL (31.8-35.4); Mean Corpuscular Hemoglobin 27.1 pg (27.0-31.2); Mean Corpuscular Volume 86.9 fl (81-99); Mean Platelet Volume 8.3 fl (7.4-10.4); Monocytes # 0.3 K/mm3 (0.1-1.0); Monocytes % 4.6 % (1.7-9.3); Neutrophils # 4.4 K/mm3 (1.8-7.8); Platelet Count 195 K/mm3 (142-424); Red Blood Count 3.88 M/mm3 (4.20-5.40); Red Cell Distribution Width 18.7 % (11.5-17.5); White Blood Count 6.1 K/mm3 (4.8-10.8)
[2023-11-26 13:41] LABS: Chloride 106 mmol/L (98-107); Potassium 4.9 mmoL/L (3.5-5.1); Sodium 137 mmol/L (136-145)
[2023-11-26 13:43] LABS: Blood Urea Nitrogen 31 mg/dl (7-17); Creatinine Clearance Estimated 28 mL/min (50-200); Estimated Glomerular Filt Rate 39 ml/min (>60); GFR (African American) 47 ML/MIN (>60)
[2023-11-26 13:44] LABS: Alanine Aminotransferase 17 U/L (12-78); Albumin/Globulin Ratio 1.3 (1.1-1.8); Alkaline Phosphatase 81 U/L (38-126); Anion Gap 8.9 mEq/L (5-15); Aspartate Amino Transferase 43 U/L (14-36); Bilirubin,Total 0.6 mg/dl (0.2-1.3); Calcium 9.1 mg/dl (8.4-10.2); Carbon Dioxide 27 mmol/L (22.0-30.0); Globulin 3.1 g/dL (1.3-3.2); Glucose 134 mg/dl (74-100); Total Protein,Serum 7.1 g/dl (6.3-8.2)
[2023-11-26 14:04] VITALS: BP 127/56; PULSE 70; O2SAT 95
[2023-11-26 14:30] VITALS: BP 128/63; PULSE 70; RESP 18; O2SAT 94
[2023-11-26 14:45] LABS: Activated Partial Thrombo Time 34.1 seconds (22.8-30.6); INR 1.61 (0.9-1.1); Prothrombin Time 16.9 seconds (10.1-12.5)
[2023-11-26 15:12] VITALS: BP 117/77; PULSE 70; RESP 16; TEMP 36.6; O2SAT 97
== END 2023-11-26 15:22 | disposition home or self-care (01) ==
PROVIDERS: Emergency Provider Emergency Medicine; PCP Internal Medicine
DX: J06.9 Acute upper respiratory infection, unspecified (principal); R04.0 Epistaxis; R05.9 Cough, unspecified; R09.81 Nasal congestion; I48.91 Unspecified atrial fibrillation; E11.22 Type 2 diabetes mellitus with diabetic chronic kidney disease; N18.30 Chronic kidney disease, stage 3 unspecified; E03.9 Hypothyroidism, unspecified; I25.119 Atherosclerotic heart disease of native coronary artery with unspecified angina pectoris; I42.9 Cardiomyopathy, unspecified; I13.0 Hypertensive heart and chronic kidney disease with heart failure and stage 1 through stage 4 chronic kidney disease, or unspecified chronic kidney disease; I50.9 Heart failure, unspecified; E78.5 Hyperlipidemia, unspecified; E11.51 Type 2 diabetes mellitus with diabetic peripheral angiopathy without gangrene; Z95.0 Presence of cardiac pacemaker
CPT/HCPCS: 80053; 85025; 85610; 85730; 87636; 93005; 99285

== ENCOUNTER 2023-11-30 18:32 | Outpatient (CLI) | payer MEDICARE, MEDICAID, SELFPAY | END 2023-11-30 23:59 | LOC: LAB.DROPOF 18:32 | PROVIDERS: PCP Physician Assistant; Visit Provider Physician Assistant | DX: N39.0 Urinary tract infection, site not specified (principal); B96.29 Other Escherichia coli [E. coli] as the cause of diseases classified elsewhere; B96.89 Other specified bacterial agents as the cause of diseases classified elsewhere | CPT/HCPCS: 87086 ==

== ENCOUNTER 2024-01-23 16:44 | Emergency (ER) | payer MEDICARE, MEDICAID, SELFPAY ==
[2024-01-23 16:45] VITALS: BP 119/76; PULSE 106; RESP 18; TEMP 36.8; O2SAT 95; BMI 23.9
--- NOTE | 2024-01-23 17:05 | ED_ITS ---
<Statement entered by Clarence Hanks MD - 01/24/24 00:39> I was consulted by the MARIANN, and we discussed the complexity of the problems being addressed. I approved the treatment and management plan for this patient's care in the emergency department, thus performing a substantive portion of the medical decision making. Clarence Hanks MD Discharge Plan Disposition Patient Disposition: Home, Self-Care Condition: Good Prescriptions Prescriptions: No Action aspirin [Adult Low Dose Aspirin] 81 mg tablet,delayed release (DR/EC) 81 mg PO HS 30 Days Qty: 90 4RF promethazine-DM 6.25-15 mg/5 mL syrup 2.5 ml PO Q6H PRN (Reason: cough) Qty: 120 0RF Jardiance 10 mg tablet 20 mg PO DAILY 30 Days Qty: 60 2RF nitroglycerin 0.4 mg tablet, sublingual 0.4 mg sublingual Q5M PRN (Reason: chest pain) Qty: 30 3RF Rx Instructions: do not exceed 3 doses per episode insulin glargine [Lantus Solostar U-100 Insulin] 100 unit/mL (3 mL) insulin pen 15 unit SQ BID 60 Days Qty: 18 4RF bisoprolol fumarate 5 mg tablet 2.5 mg PO DAILY Qty: 30 2RF ondansetron 4 mg tablet,disintegrating 4 mg PO Q6H PRN (Reason: Nausea And Vomiting) Qty: 30 0RF levothyroxine 50 mcg tablet See Rx Instructions .ROUTE .COMPLEX Qty: 90 2RF Dose Instruction: TAKE ONE TABLET BY MOUTH EVERY DAY Rx Instructions: TAKE ONE TABLET BY MOUTH EVERY DAY docusate sodium 100 mg capsule 100 mg PO DAILY Qty: 90 0RF ferrous gluconate 324 mg (38 mg iron) tablet 324 mg PO DAILY 60 Days Qty: 60 2RF cetirizine 10 mg tablet See Rx Instructions .ROUTE .COMPLEX Qty: 90 0RF Dose Instruction: TAKE ONE TABLET BY MOUTH EVERY DAY AT BEDTIME FOR ALLERGIES Rx Instructions: TAKE ONE TABLET BY MOUTH EVERY DAY AT BEDTIME FOR ALLERGIES Xarelto 15 mg tablet See Rx Instructions .ROUTE .COMPLEX Qty: 90 0RF Dose Instruction: TAKE ONE TABLET BY MOUTH EVERY EVENING --TAKE WITH FOOD-- Rx Instructions: TAKE ONE TABLET BY MOUTH EVERY EVENING --TAKE WITH FOOD-- (DME) FreeStyle Kai 14 Day Sensor Kit See Rx Instructions .Route Qty: 2 4RF Rx Instructions: As directed atorvastatin 40 mg tablet See Rx Instructions .ROUTE .COMPLEX Qty: 90 0RF Dose Instruction: TAKE ONE TABLET BY MOUTH EVERY DAY Rx Instructions: TAKE ONE TABLET BY MOUTH EVERY DAY furosemide 20 mg tablet 20 mg PO Q OTHER DAY Qty: 30 4RF fluticasone propionate 50 mcg/actuation spray,suspension See Rx Instructions .ROUTE .COMPLEX Qty: 16 2RF Dose Instruction: instill 1 SPRAY IN EACH NOSTRIL DAILY FOR ALLERGY symptoms Rx Instructions: instill 1 SPRAY IN EACH NOSTRIL DAILY FOR ALLERGY symptoms clopidogrel 75 mg tablet See Rx Instructions .ROUTE .COMPLEX Qty: 30 0RF Dose Instruction: TAKE ONE TABLET BY MOUTH EVERY DAY Rx Instructions: TAKE ONE TABLET BY MOUTH EVERY DAY verapamil 120 mg capsule,ext rel. pellets 24 hr 120 mg PO DAILY Qty: 90 0RF omeprazole 40 mg capsule,delayed release(DR/EC) 40 mg PO DAILY Qty: 90 0RF sertraline 100 mg tablet 100 mg PO DAILY Qty: 90 0RF cyanocobalamin (vitamin B-12) 2,500 MCG tablet, sublingual 2,500 mcg SL BID hfasngvozjph-boxd-dbwcd acid 1 EACH tablet 1 each PO DAILY azbhgoxckrcsvgj-iqefeetpw-SB [Bromfed DM] 2-30-10 mg/5 mL syrup 5 ml PO Q6H PRN (Reason: cold symptoms) Qty: 118 0RF Myrbetriq 25 mg tablet extended release 24 hr 25 mg PO DAILY Referrals Follow up/Referrals: Gonzalo Rendon DO [Staff Physician] - See instructions Richard Gutiérrez DO [Primary Care Provider] - See instructions Activity Restrictions/Add. Instructions Additional Instructions/Restrictions: Follow-up with your PCP in 1 week or as needed. I have referred you to orthopedics, please call in the morning to make an appointment. Return to ER for any worsening signs and symptoms as needed Clinical Impressions Clinical Impression: Acute shoulder pain Qualifiers: Laterality: right Qualified Code(s): M25.511 - Pain in right shoulder Discharge ED Provider: Clarence Hanks General Adult HPI General Chief complaint: Extremity Injury, Upper Stated complaint: RT shoulder Time Seen by Provider: 01/23/24 17:05 Mode of Arrival: Wheelchair Source of Information: Patient Limitations: No Limitations Description of Symptoms (Recalled from ER Triage Doc. by RN): Patient reports right shoulder pain that started last night. No injury. States she took tylenol last night with no relief. History of Present Illness HPI narrative: Patient presents for evaluation of right shoulder pain. Patient states that she has had shoulder pain since last night that began suddenly and is unchanged and nonradiating. She points to the AC area as the locus of her pain. She denies trauma or injury. It began before she went to sleep. She denies chest pain shortness of breath fever chills hemoptysis hematochezia melena nausea vomiting diarrhea. Related Data Home Medications Medication Instructions Recorded Confirmed cyanocobalamin (vitamin B-12) 2,500 mcg sublingual BID Supplement 08/18/21 01/20/24 2,500 mcg sublingual tablet multivitamin-ferrous 1 each PO DAILY Supplement 08/18/21 01/20/24 fumarate-folic acid 18 mg-400 mcg tablet mirabegron 25 mg tablet,extended 25 mg PO DAILY URINARY SYMPTOMS 09/23/23 01/20/24 release 24 hr (Myrbetriq) Previous Rx's Medication Instructions Recorded aspirin 81 mg tablet,delayed 81 mg PO HS CAD 30 days #90 tabs 10/06/23 release (Adult Low Dose Aspirin) ondansetron 4 mg disintegrating 4 mg PO Q6H PRN Nausea And 10/06/23 tablet Vomiting #30 tabs empagliflozin 10 mg tablet 20 mg (2 x 10 mg) PO DAILY Heart 10/13/23 (Jardiance) Disease 30 days #60 tabs levothyroxine 50 mcg tablet See Rx Instructions .Route 10/18/23 .COMPLEX #90 tabs docusate sodium 100 mg capsule 100 mg PO DAILY Constipation #90 11/08/23 caps ferrous gluconate 324 mg (38 mg 324 mg PO DAILY 60 days #60 tabs 11/08/23 iron) tablet cetirizine 10 mg tablet See Rx Instructions .Route 11/17/23 .COMPLEX #90 tabs rivaroxaban 15 mg tablet (Xarelto) See Rx Instructions .Route 11/17/23 .COMPLEX #90 tabs zijrzzwqynldowt-gowoipdievyueia-KC 5 ml PO Q6H PRN cold symptoms #118 11/26/23 2 mg-30 mg-10 mg/5 mL oral syrup mL (Bromfed DM) promethazine-DM 6.25 mg-15 mg/5 mL 2.5 ml PO Q6H PRN cough #120 mL 11/30/23 oral syrup flash glucose sensor (FreeStyle #2 ea 12/06/23 Kai 14 Day Sensor kit) atorvastatin 40 mg tablet See Rx Instructions .Route 12/13/23 .COMPLEX #90 tabs nitroglycerin 0.4 mg sublingual 0.4 mg sublingual Q5M PRN chest 12/20/23 tablet pain #30 tabs furosemide 20 mg tablet 20 mg PO Q OTHER DAY #30 tabs 12/22/23 insulin glargine 100 unit/mL (3 15 unit (0.15 mL) SQ BID 60 days 12/24/23 mL) subcutaneous pen (Lantus #18 mL Solostar U-100 Insulin) clopidogrel 75 mg tablet See Rx Instructions .Route 01/13/24 .COMPLEX #30 tabs fluticasone propionate 50 See Rx Instructions .Route 01/13/24 mcg/actuation nasal .COMPLEX #16 grams spray,suspension omeprazole 40 mg capsule,delayed 40 mg PO DAILY Acid Reflux #90 caps 01/13/24 release verapamil 120 mg 24 hr 120 mg PO DAILY High Blood 01/13/24 capsule,extended release Pressure #90 caps sertraline 100 mg tablet 100 mg PO DAILY depressed #90 tabs 01/14/24 bisoprolol fumarate 5 mg tablet 2.5 mg (1/2 x 5 mg) PO DAILY #30 01/20/24 tabs Allergies Allergy/AdvReac Type Severity Reaction Status Date / Time methylprednisolone Allergy Mild Elevated Verified 01/20/24 13:54 glucose [facility] Disclaimer: The information contained in this section may have been updated after the patient was seen, as this information can be updated by other users. Medical History HLD (hyperlipidemia) Will continue with current therapy. Coronary artery disease Patient follows with cardiology on a regular basis. CKD (chronic kidney disease) stage 3, GFR 30-59 ml/min Atypical angina Abnormal cardiovascular stress test Nausea vomiting and diarrhea Atypical chest pain Fatigue Gastroenteritis Arthritis History of anemia History of gastroesophageal reflux (GERD) Diabetes mellitus, type 2 History of cataract Arrhythmia History of pacemaker History of left heart catheterization (LHC) Gastritis Acute blood loss anemia (ABLA) Hyperglycemia Angina at rest Hyperglycemia without ketosis PAF (paroxysmal atrial fibrillation) Acute kidney injury DKA (diabetic ketoacidosis) Dyspnea Lactose intolerance Strep throat Pancytopenia 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 Patient is following with cardiology. Hyperkalemia Renal insufficiency Urinary tract infection Anemia We need to check a CBC at her next visit. Acute renal insufficiency Cardiogenic shock Diabetes Pre-syncope Contusion of sternum Fatigue SOB (shortness of breath) on exertion Leg pain, bilateral Angina pectoris Cardiac pacemaker in situ will check labs SSS (sick sinus syndrome) HTN (hypertension) Pulmonary HTN Chest wall pain following surgery Report soreness r/t post op pacemaker Surgical History History of esophagogastroduodenoscopy (EGD) Hx of tonsillectomy History of colonoscopy History of hysterectomy History of appendectomy History of cholecystectomy Family History Other No significant family history Social History Smoking Status: Never smoker second hand exposure: No alcohol intake: never substance use type: denies use current occupational status: disabled Travel in the last 8 weeks: Inside the [place] household members: family housing: house caffeine: No ROS Obtained: Yes Systems reviewed as appropriate & no additional complaints except as documented Physical Exam General General appearance: alert and in no apparent distress Head Head exam: atraumatic and normal inspection Eye Eye exam: Present normal appearance and EOMI ENT ENT exam: Present normal exam and normal oropharynx Neck Neck exam: Present normal inspection and full ROM; Absent tenderness Respiratory Respiratory exam: Present normal lung sounds bilaterally Cardiovascular Cardiovascular exam: Present regular rate and normal rhythm Neurological Exam Neurological exam: Present alert and oriented X3 Other Other exam information: Patient has full range of motion in all 4 extremities and they are all intact grossly to exam. In the right upper extremity specifically patient has no crepitus about the shoulder joint and again has full range of motion without pain being able to be elicited on palpation. Patient is neurovascularly intact distally in the right upper extremity. It is tender to palpation underneath the acromioclavicular joint. There is no crepitus deformity edema fluctuance noted. Medical Decision Making Medical Records Medical records reviewed: Yes I reviewed the patient's medical records. Thomas Inquiry Pt receiving controlled substance: No Vital Signs: 01/23/24 16:45 01/23/24 18:00 Temperature 98.2 F Temperature Source Oral Pulse Rate 107 H Pulse Rate [Radial] 106 H Respiratory Rate 18 Blood Pressure 116/77 Blood Pressure [Right Arm] 119/76 Blood Pressure Mean [Right Arm] 90 Blood Pressure Source [Right Arm] Automatic Cuff Blood Pressure Position [Right Arm] Sitting 02 Sat by Pulse Oximetry 95 98 Oxygen Delivery Method Room Air Room Air Orders (Tests/Meds): ED MEDICATIONS Discontinued Medications Generic Name Dose Route Start Last Admin Trade Name Freq PRN Reason Stop Dose Admin Acetaminophen 1,000 mg 01/23/24 17:15 01/23/24 17:24 Acetaminophen 500mg Tab PO 01/23/24 17:16 1,000 mg ONCE ONE Administration Ketorolac Tromethamine 30 mg 01/23/24 17:15 01/23/24 17:25 Ketorolac 30mg/Ml Vial IM 01/23/24 17:16 30 mg ONCE ONE Administration Lidocaine 1 each 01/23/24 17:15 01/23/24 17:24 Lidocaine 5% Transdermal Patch TP 01/23/24 17:16 1 each ONCE ONE Administration ORDERS Category Date Time Status Shoulder XR right miminum 2 views [XR shoulder RT min Exams 01/23/24 17:08 Completed 2V] Stat Medical Decision Narrative: In summary patient is a 88-year-old female who presents to the emergency department for evaluation of right shoulder pain. Patient is hemodynamically stable upon arrival, febrile. Physical exam is remarkable for tenderness to palpation at the acromioclavicular joint of the right shoulder. There is no crepitus no reduction in range of motion and patient is neurovascularly intact distally in the right upper extremity.. Differential diagnosis includes impingement syndrome, bursitis, osteoarthritis, labrum tear etc.,. Initial wor kup will be conducted with plain film x-rays. Initial interventions include Toradol Tylenol. Initial workup reviewed by me shows no acute processes on her plain film x-rays via my informal interpretation. Upon repeat evaluation patient had acceptable resolution of her symptoms and thus he is appropriate for discharge with follow-up with Dr. Rendon. [facility] Critical Care Critical Care Time Critical Care Time: No
--- NOTE | 2024-01-23 17:08 | XR_ITS ---
PROCEDURE INFORMATION: Exam: XR Right Shoulder Exam date and time: 01/23/2024 5:20 PM Age: 88 years old Clinical indication: Pain; Shoulder; Right; Additional info: Acute right shoulder pain, no known injury TECHNIQUE: Imaging protocol: Radiologic exam of the right shoulder. Views: 2 or more views. COMPARISON: CR XR SHOULDER RT MIN 2V 11/09/2020 6:26 PM FINDINGS: Bones/joints: There is no evidence of acute fracture or dislocation. Mild degenerative changes involve the AC joint with mild joint space narrowing. Soft tissues: No significant soft tissue edema. No subcutaneous emphysema or radiopaque foreign bodies. The thoracic spine demonstrates mild degenerative changes at multiple levels. IMPRESSION: No acute posttraumatic osseous injury.
[2024-01-23] MEDS: ACETAMINOPHEN 500MG TAB 1000 MG PO (17:24)
[2024-01-23] MEDS: LIDOCAINE 5% TRANSDERMAL PATCH 1 EACH TP (17:24)
[2024-01-23] MEDS: KETOROLAC 30MG/ML VIAL 30 MG IM (17:25)
--- NOTE | 2024-01-23 17:28 | PC.NURSE ---
GONE FOR XRAYS
[2024-01-23 18:00] VITALS: BP 116/77; PULSE 107; O2SAT 98
--- NOTE | 2024-01-23 18:35 | PC.NURSE ---
DR JARAMILLO AT BEDSIDE
[2024-01-23 18:47] VITALS: BP 110/70; PULSE 70; RESP 20; TEMP 36.7; O2SAT 98
== END 2024-01-23 18:49 | disposition home or self-care (01) ==
PROVIDERS: Emergency Provider Emergency Medicine; PCP Internal Medicine
DX: M25.511 Pain in right shoulder (principal)
CPT/HCPCS: 73030; 96372; 99283

== ENCOUNTER 2024-01-24 16:55 | Observation (INO) | payer MEDICARE, MEDICAID, SELFPAY ==
[2024-01-24] VITALS (12 sets, daily range): BP systolic 123–140; BP diastolic 76–97; PULSE 75–94; RESP 12–19; TEMP 36.8; O2SAT 95–100; BMI 23.9; BMI 25.1
[2024-01-24] MEDS: ACETAMINOPHEN 500MG TAB 1000 MG PO (17:12)
[2024-01-24] MEDS: METHOCARBAMOL 500MG TABLET 500 MG PO (17:12)
[2024-01-24] MEDS: KETOROLAC 30MG/ML VIAL 30 MG IM (17:13)
[2024-01-24] MEDS: LIDOCAINE 5% TRANSDERMAL PATCH 1 EACH TP (17:13)
--- NOTE | 2024-01-24 17:38 | CT_ITS ---
PROCEDURE INFORMATION: Exam: CTA Chest With Contrast Exam date and time: 01/24/2024 7:21 PM Age: 88 years old Clinical indication: Chest wall pain; Additional info: Severe R upper back/neck/shoulder pain, no trauma TECHNIQUE: Imaging protocol: Computed tomographic angiography of the chest with contrast. Exam focused on the arteries. 3D rendering (Not supervised by radiologist): MIP and/or 3D reconstructed images were created by the technologist. Radiation optimization: All CT scans at this facility use at least one of these dose optimization techniques: automated exposure control; mA and/or kV adjustment per patient size (includes targeted exams where dose is matched to clinical indication); or iterative reconstruction. Contrast material: ISOVUE 370; Contrast volume: 80 ml; Contrast route: INTRAVENOUS (IV); COMPARISON: CT ANGIO CHEST 02/23/2021 2:25 PM FINDINGS: Tubes, catheters and devices: Cardiac pacemaker in place. Pulmonary arteries: Normal. No pulmonary emboli. Aorta: Unremarkable. No aortic aneurysm. No aortic dissection. Lungs: Unremarkable. No consolidation. No masses. Pleural spaces: Small right pleural effusion. No pneumothorax. Heart: Reflux of contrast into the IVC and hepatic veins as well as right atrial enlargement compatible with right heart failure. Lymph nodes: Small calcified bilateral hilar and right paratracheal mediastinal lymph nodes. Bones/joints: Moderate degenerative disc changes and multilevel anterior osteophyte formation throughout the thoracic spine. Accentuated kyphosis of the upper thoracic spine. No vertebral body compression or acute fracture. Soft tissues: Unremarkable. IMPRESSION: 1. No evidence of pulmonary embolus, aortic aneurysm or dissection. 2. Right adrenal enlargement with signs of the right heart failure. 3. Small right pleural effusion. No active pulmonary infiltrate.
--- NOTE | 2024-01-24 17:38 | CT_ITS ---
PROCEDURE INFORMATION: Exam: CT Cervical Spine Without Contrast Exam date and time: 01/24/2024 7:15 PM Age: 88 years old Clinical indication: Neck pain; Additional info: Pain from neck rad to R shoulder, neg XR TECHNIQUE: Imaging protocol: Computed tomography of the cervical spine without contrast. Radiation optimization: All CT scans at this facility use at least one of these dose optimization techniques: automated exposure control; mA and/or kV adjustment per patient size (includes targeted exams where dose is matched to clinical indication); or iterative reconstruction. COMPARISON: CT ANGIO CHEST 02/23/2021 2:25 PM FINDINGS: Bones/joints: Osseous alignment is normal. No acute fracture or subluxation. Significant degenerative changes of the atlantodental joint. Severe multilevel bilateral facet arthropathy. Moderate multilevel degenerative disc changes. Lungs: Lung apices are normal. Vasculature: Moderate atherosclerotic calcification in the right carotid arteries. Soft tissues: Unremarkable. IMPRESSION: No acute fracture. Degenerative changes as noted.
--- NOTE | 2024-01-24 17:38 | CT_ITS ---
PROCEDURE INFORMATION: Exam: CT Thoracic Spine Without Contrast Exam date and time: 01/24/2024 7:18 PM Age: 88 years old Clinical indication: Pain in thoracic spine; Additional info: Pain from neck rad to R shoulder, neg XR TECHNIQUE: Imaging protocol: Computed tomography of the thoracic spine without contrast. Radiation optimization: All CT scans at this facility use at least one of these dose optimization techniques: automated exposure control; mA and/or kV adjustment per patient size (includes targeted exams where dose is matched to clinical indication); or iterative reconstruction. COMPARISON: CT CERVICAL SPINE WO CON 01/24/2024 7:15 PM FINDINGS: Bones/joints: Accentuated kyphosis of the upper thoracic spine. Moderate multilevel degenerative disc changes and anterior osteophyte formation. No vertebral body compression or acute fracture. Mild rightward convexity of the thoracic spine. Soft tissues: Unremarkable. Pleural spaces: Small right pleural effusion. IMPRESSION: No acute abnormality of the thoracic spine. Degenerative changes as noted.
--- NOTE | 2024-01-24 17:40 | HMH.EDGENADL ---
Discharge Plan Disposition Patient Disposition: Admitted Condition: Fair Clinical Impressions Clinical Impression: THANH (acute kidney injury), Acute hyperkalemia, Pleural effusion, Acute exacerbation of CHF (congestive heart failure), Aneurysm of splenic artery Discharge ED Provider: Miley Mccallum General Adult HPI General Chief complaint: PAIN Stated complaint: RT shoulder pain Time Seen by Provider: 01/24/24 16:59 Mode of Arrival: Wheelchair Source of Information: Patient and Relative Limitations: No Limitations Description of Symptoms (Recalled from ER Triage Doc. by RN): pt presents to ED with c/o continued right shoulder pain. pt was seen in ED yesterday and had follow up appoitment with pcp for right shoulder pain. referral was made to ortho for pt but she has not yet made appt with them. pt reports pain is continued and she just need some relief . History of Present Illness HPI narrative: This patient is a 88-year-old female with history of left shoulder pain that resolved after cortisone injections presenting with right shoulder pain. Patient also has history of CAD, hypertension, hyperlipidemia, CKD, and type 2 diabetes. She notes that she has had atraumatic shoulder pain for the last few days. It came on suddenly and she had severe pain in her right upper back/shoulder/neck. She cannot think of any injuries or sleeping on it wrong. It does not change with any sort of movement or positioning, she states it is just always there. She is evaluated here yesterday for similar symptoms and x-rays were obtained which were negative. Patient was discharged home with instructions for supportive management after pain had improved with Toradol, Tylenol, and a lidocaine patch. She followed up with her primary care provider as well who noted they were going to send her to physical therapy, MRI, and referred to Ortho. She presents now because the pain is still severe. Related Data Home Medications Medication Instructions Recorded Confirmed cyanocobalamin (vitamin B-12) 5,000 mcg sublingual DAILY 08/18/21 01/24/24 2,500 mcg sublingual tablet Supplement multivitamin-ferrous 1 each PO DAILY Supplement 08/18/21 01/24/24 fumarate-folic acid 18 mg-400 mcg tablet mirabegron 25 mg tablet,extended 25 mg PO HS URINARY SYMPTOMS 09/23/23 01/24/24 release 24 hr (Myrbetriq) atorvastatin 40 mg tablet 40 mg PO HS 01/24/24 01/24/24 bisoprolol fumarate 5 mg tablet 2.5 mg PO HS 01/24/24 01/24/24 urkxuhtghqwiavr-vfqwupsewavfnpp-GD 5 ml PO Q6 PRN Cold Symptoms 01/24/24 01/24/24 2 mg-30 mg-10 mg/5 mL oral syrup (Bromfed DM) cetirizine 10 mg tablet 10 mg PO HS 01/24/24 01/24/24 clopidogrel 75 mg tablet 75 mg PO DAILY 01/24/24 01/24/24 docusate sodium 100 mg capsule 100 mg PO HS Constipation 01/24/24 01/24/24 fluticasone propionate 50 1 spray intranasal DAILY 01/24/24 01/24/24 mcg/actuation nasal spray,suspension levothyroxine 50 mcg tablet 50 mcg PO HS 01/24/24 01/24/24 meloxicam 7.5 mg tablet 7.5 mg PO DAILY 01/24/24 01/24/24 meloxicam 7.5 mg tablet 7.5 mg PO DAILY shoulder pain 01/24/24 01/24/24 rivaroxaban 15 mg tablet (Xarelto) 15 mg PO HS 01/24/24 01/24/24 verapamil 120 mg 24 hr 120 mg PO HS High Blood Pressure 01/24/24 01/24/24 capsule,extended release Previous Rx's Medication Instructions Recorded aspirin 81 mg tablet,delayed 81 mg PO HS CAD 30 days #90 tabs 10/06/23 release (Adult Low Dose Aspirin) ondansetron 4 mg disintegrating 4 mg PO Q6H PRN Nausea And 10/06/23 tablet Vomiting #30 tabs empagliflozin 10 mg tablet 20 mg (2 x 10 mg) PO DAILY Heart 10/13/23 (Jardiance) Disease 30 days #60 tabs ferrous gluconate 324 mg (38 mg 324 mg PO DAILY 60 days #60 tabs 11/08/23 iron) tablet promethazine-DM 6.25 mg-15 mg/5 mL 2.5 ml PO Q6H PRN cough #120 mL 11/30/23 oral syrup flash glucose sensor (FreeStyle #2 ea 12/06/23 Kai 14 Day Sensor kit) nitroglycerin 0.4 mg sublingual 0.4 mg sublingual Q5M PRN chest 12/20/23 tablet pain #30 tabs furosemide 20 mg tablet 20 mg PO Q OTHER DAY #30 tabs 12/22/23 insulin glargine 100 unit/mL (3 15 unit (0.15 mL) SQ BID 60 days 12/24/23 mL) subcutaneous pen (Lantus #18 mL Solostar U-100 Insulin) omeprazole 40 mg capsule,delayed 40 mg PO DAILY Acid Reflux #90 caps 01/13/24 release sertraline 100 mg tablet 100 mg PO DAILY depressed #90 tabs 01/14/24 Allergies Allergy/AdvReac Type Severity Reaction Status Date / Time methylprednisolone Allergy Mild Elevated Verified 01/24/24 10:54 glucose [facility] Disclaimer: The information contained in this section may have been updated after the patient was seen, as this information can be updated by other users. Medical History (Updated 01/24/24 @ 21:45 by Kierra Reveles RN) Seasonal allergies Hyperlipemia Hypertension CKD (chronic kidney disease) stage 3, GFR 30-59 ml/min Atypical angina Abnormal cardiovascular stress test Nausea vomiting and diarrhea Atypical chest pain Fatigue Gastroenteritis Arthritis History of anemia History of gastroesophageal reflux (GERD) Diabetes mellitus, type 2 History of cataract Arrhythmia History of pacemaker History of left heart catheterization (LHC) Gastritis Acute blood loss anemia (ABLA) Hyperglycemia Angina at rest Hyperglycemia without ketosis PAF (paroxysmal atrial fibrillation) Acute kidney injury DKA (diabetic ketoacidosis) Dyspnea Lactose intolerance Strep throat Pancytopenia 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 antigen is unknown, or is not H7 Hypokalemia Hypotension Digitalis toxicity Edema SOB (shortness of breath) Leukocytosis Colitis Viral gastroenteritis Lactic acidosis Hyperglycemia due to diabetes mellitus Palpitations Primary osteoarthritis of right shoulder CHF (congestive heart failure) Cardiomyopathy Atrial fibrillation with RVR Right shoulder pain Peripheral arterial disease Atrial fibrillation Hyperkalemia Renal insufficiency Urinary tract infection Anemia Acute renal insufficiency Cardiogenic shock Diabetes Pre-syncope Contusion of sternum Fatigue SOB (shortness of breath) on exertion Leg pain, bilateral HLD (hyperlipidemia) Angina pectoris Cardiac pacemaker in situ SSS (sick sinus syndrome) HTN (hypertension) Pulmonary HTN Chest wall pain following surgery Coronary artery disease Surgical History History of esophagogastroduodenoscopy (EGD) Hx of tonsillectomy History of colonoscopy History of hysterectomy History of appendectomy History of cholecystectomy Family History Other No significant family history Social History Smoking Status: Never smoker second hand exposure: No alcohol intake: never substance use type: denies use current occupational status: disabled Travel in the last 8 weeks: Inside the [place] household members: family housing: house caffeine: No ROS Obtained: Yes All systems reviewed & no additional complaints except as documented Physical Exam General General appearance: alert and in no apparent distress Head Head exam: atraumatic and normocephalic Eye Eye exam: Present normal appearance, PERRL and EOMI ENT ENT exam: Present normal exam, normal oropharynx, mucous membranes moist and normal external ear exam Neck Neck exam: Present normal inspection, full ROM and trachea midline; Absent tenderness Chest Chest inspection: Present normal inspection and symmetric chest wall rise; Absent tenderness Respiratory Respiratory exam: Present normal lung sounds bilaterally; Absent respiratory distress, wheezes, stridor or accessory muscle use Cardiovascular Cardiovascular exam: Present regular rate and normal rhythm Abdominal Exam Abdominal exam: Present soft; Absent distention, tenderness or guarding Extremities Exam Extremities exam: Present normal inspection, full ROM and normal capillary refill; Absent tenderness or edema Back Exam Back exam: Present normal inspection and full ROM; Absent tenderness Neurological Exam Neurological exam: Present alert, oriented X3, CN II-XII intact and normal gait; Absent motor sensory deficit Psychiatric Psychiatric exam: Present normal affect and normal mood Skin Skin exam: Present warm and dry Medical Decision Making Medical Records Medical records reviewed: Yes I reviewed the patient's medical records. Thomas Inquiry Pt receiving controlled substance: No Vital Signs: 01/24/24 16:56 01/24/24 17:01 01/24/24 17:19 Temperature 98.2 F Temperature Source Oral Pulse Rate 88 88 Pulse Rate [Left Radial] 88 Respiratory Rate 13 Blood Pressure 128/88 124/78 Blood Pressure [Right Arm] 128/88 Blood Pressure Mean Blood Pressure Mean [Right Arm] 101 Blood Pressure Source Blood Pressure Source [Right Arm] Blood Pressure Position 02 Sat by Pulse Oximetry 98 98 97 Oxygen Delivery Method Room Air 01/24/24 17:50 01/24/24 18:00 01/24/24 18:46 Temperature Temperature Source Pulse Rate 86 84 75 Pulse Rate [Left Radial] Respiratory Rate 19 13 18 Blood Pressure 132/77 130/82 123/78 Blood Pressure [Right Arm] Blood Pressure Mean Blood Pressure Mean [Right Arm] Blood Pressure Source Blood Pressure Source [Right Arm] Blood Pressure Position 02 Sat by Pulse Oximetry 96 97 95 Oxygen Delivery Method Room Air Room Air 01/24/24 19:00 01/24/24 19:30 01/24/24 20:00 Temperature Temperature Source Pulse Rate 81 85 77 Pulse Rate [Left Radial] Respiratory Rate 12 14 14 Blood Pressure 129/76 140/90 140/91 H Blood Pressure [Right Arm] Blood Pressure Mean 88 106 99 Blood Pressure Mean [Right Arm] Blood Pressure Source Blood Pressure Source [Right Arm] Blood Pressure Position 02 Sat by Pulse Oximetry 98 96 98 Oxygen Delivery Method Room Air Room Air Room Air 01/24/24 20:30 01/24/24 21:00 01/24/24 21:00 Temperature 98.3 F Temperature Source Oral Pulse Rate 88 86 Pulse Rate [Left Radial] 94 H Respiratory Rate 16 14 17 Blood Pressure 135/97 H 128/88 Blood Pressure [Right Arm] 135/90 Blood Pressure Mean 108 98 Blood Pressure Mean [Right Arm] 105 Blood Pressure Source Blood Pressure Source [Right Arm] Automatic Cuff Blood Pressure Position 02 Sat by Pulse Oximetry 98 99 96 Oxygen Delivery Method Room Air Room Air 01/24/24 21:05 Temperature 98.2 F Temperature Source Oral Pulse Rate 84 Pulse Rate [Left Radial] Respiratory Rate 16 Blood Pressure 135/97 H Blood Pressure [Right Arm] Blood Pressure Mean Blood Pressure Mean [Right Arm] Blood Pressure Source Automatic Cuff Blood Pressure Source [Right Arm] Blood Pressure Position Sitting 02 Sat by Pulse Oximetry Oxygen Delivery Method Room Air Lab Data Lab results reviewed: Yes I reviewed the patient's lab results. Lab Results 01/24/24 17:50: WBC 6.6, RBC 4.02 L, Hgb 11.6 L, Hct 37.5, MCV 93.3, MCH 28.7, MCHC 30.8 L, RDW 15.6, Plt Count 142, MPV 9.1, Neut % (Auto) 90.8 H, Lymph % (Auto) 6.9 L, [place] % (Auto) 1.3 L, Eos % (Auto) 0.9, Baso % (Auto) 0.1, Neut # (Auto) 6.0, Lymph # (Auto) 0.5 L, [place] # (Auto) 0.1, Eos # (Auto) 0.1, Baso # (Auto) 0.0, Total Counted 100, Neutrophils % (Manual) 91 H, Lymphocytes % (Manual) 9 L, Platelet Estimate Normal, Hypochromasia 1+, Acanthocytes (Spur) 1+, Sodium 133 L, Potassium 6.3 H*, Chloride 101, Carbon Dioxide 23, Anion Gap 15.3 H, BUN 70 H, Creatinine 1.90 H, Estimated Creat Clear 21, Estimated GFR 25 L, Est GFR ( Amer) 30 L, Glucose 383 H, Calcium 8.8, Total Bilirubin 0.6, AST 43 H, ALT 37, Alkaline Phosphatase 154 H, Troponin I < 0.01, NT-Pro-B Natriuret Pep 5500 H, Total Protein 6.4, Albumin 3.8, Globulin 2.6, Albumin/Globulin Ratio 1.5, Lipase 20 L 01/24/24 19:45: Urine Color Yellow, Urine Appearance Clear, Urine pH 6.0, Ur Specific [place] 1.010, Urine Protein Negative, Urine Glucose (UA) 3+, Urine Ketones Negative, Urine Blood Negative, Urine Nitrate Negative, Urine Bilirubin Negative, Urine Urobilinogen 0.2, Ur Leukocyte Esterase Negative, Urine RBC None, Urine WBC Occasional, Ur Squamous Epith Cells 5-10, Urine Bacteria None 01/24/24 20:50: Troponin I < 0.01 01/24/24 17:50 01/24/24 22:44 Orders (Tests/Meds): ED MEDICATIONS Generic Name Dose Route Start Last Admin Trade Name Javierq PRN Reason Stop Dose Admin Acetaminophen 650 mg 01/24/24 20:59 Acetaminophen 325mg Tab PO 02/23/24 20:58 Q4HP PRN Fever or Mild Pain (1-3) Al Hydrox/Mg Hydrox/Simethicone 30 ml 01/24/24 20:59 Aluminum/Magnesium/Simethicone 30ml Udc PO 02/23/24 20:58 QIDP PRN Dyspepsia Aspirin 81 mg 01/24/24 23:00 Aspirin Ec 81mg Tablet PO 02/23/24 22:59 HS [facility] Atorvastatin Calcium 40 mg 01/24/24 23:00 Atorvastatin 40mg Tablet PO 02/23/24 22:59 HS [facility] Bisoprolol Fumarate 2.5 mg 01/24/24 23:15 Bisoprolol 5mg Tablet PO 02/23/24 23:14 HS [facility] Clopidogrel Bisulfate 75 mg 01/25/24 09:00 Clopidogrel 75mg Tab PO 02/24/24 08:59 DAILY [facility] Docusate Sodium 100 mg 01/24/24 23:15 Docusate Sodium 100 Mg Capsule PO 02/23/24 23:14 HS [facility] Fluticasone Propionate 1 spray 01/25/24 09:00 Fluticasone Prop 50mcg Nasal [place] 16gm NS 02/24/24 08:59 DAILY [facility] Furosemide 20 mg 01/24/24 22:45 Furosemide 20mg Tablet PO 02/23/24 22:44 Q OTHER DAY [facility] Furosemide 40 mg 01/24/24 22:40 Furosemide 40mg/4ml Vial IV 01/24/24 22:41 ONCE ONE Insulin Glargine 15 unit 01/24/24 22:45 Insulin Glargine 100 Units/Ml 3ml Flexpen SQ 02/23/24 22:44 BID [facility] Levothyroxine Sodium 50 mcg 01/24/24 23:15 Levothyroxine 50mcg (0.05mg) Tab PO 02/23/24 23:14 HS [facility] Lidocaine 1 each 01/24/24 21:15 Lidocaine 5% Transdermal Patch TP 02/23/24 21:14 Q24H [facility] Morphine Sulfate 2 mg 01/24/24 20:59 Morphine 2mg/Ml Syringe IV 02/23/24 20:58 Q2HP PRN Severe Pain (7-10) Non-Formulary Medication 25 mg 01/25/24 21:00 Mirabegron [Myrbetriq] PO 02/24/24 20:59 HS [facility] Ondansetron HCl 4 mg 01/24/24 20:59 Ondansetron 4mg/2ml Vial IV 02/23/24 20:58 Q8HP PRN Nausea Pantoprazole Sodium 40 mg 01/24/24 21:00 Pantoprazole 40mg Tablet PO 02/23/24 20:59 DAILY [facility] Rivaroxaban 15 mg 01/24/24 23:15 Rivaroxaban 15mg Tablet PO 02/23/24 23:14 HS [facility] Sertraline HCl 100 mg 01/25/24 09:00 Sertraline 100mg Tablet PO 02/24/24 08:59 DAILY [facility] Verapamil HCl 120 mg 01/24/24 23:15 Verapamil Sr 120mg Tablet PO 02/23/24 23:14 HS [facility] Discontinued Medications Generic Name Dose Route Start Last Admin Trade Name Rufino PRN Reason Stop Dose Admin Acetaminophen 1,000 mg 01/24/24 17:08 01/24/24 17:12 Acetaminophen 500mg Tab PO 01/24/24 17:09 1,000 mg ONCE ONE Administration Lactated Ringer's 1,000 mls @ 999 mls/hr 01/24/24 19:03 01/24/24 19:10 Lactated Ringer's 1000 Ml Bag IV 01/24/24 20:03 999 mls/hr .Q1H1M ONE Administration Lactated Ringer's 1,000 mls @ 999 mls/hr 01/24/24 19:06 01/24/24 19:12 Lactated Ringer's 1000 Ml Bag IV 01/24/24 20:06 Not Given .Q1H1M ONE Iopamidol 80 ml 01/24/24 19:22 01/24/24 19:29 Iopamidol-370 (76%);100ml Bottle IV 01/24/24 19:23 80 ml ONCE ONE Administration Ketorolac Tromethamine 30 mg 01/24/24 17:08 01/24/24 17:13 Ketorolac 30mg/Ml Vial IM 01/24/24 17:09 30 mg ONCE ONE Administration Lidocaine 1 each 01/24/24 17:08 01/24/24 17:13 Lidocaine 5% Transdermal Patch TP 01/24/24 17:09 1 each ONCE ONE Administration Methocarbamol 500 mg 01/24/24 17:08 01/24/24 17:12 Methocarbamol 500mg Tablet PO 01/24/24 17:09 500 mg ONCE ONE Administration Morphine Sulfate 4 mg 01/24/24 20:42 01/24/24 20:49 Morphine 4mg/Ml Syringe IV 01/24/24 20:43 4 mg ONCE ONE Administration Sodium Chloride 10 ml 01/24/24 19:22 01/24/24 19:29 Sodium Chloride 0.9% 10ml Syr (Rad Only) IV 01/24/24 19:23 10 ml ONCE ONE Administration Sodium Chloride 50 ml 01/24/24 19:22 01/24/24 19:29 0.9 % Sodium Chloride 50 Ml Vial IV 01/24/24 19:23 50 ml ONCE ONE Administration ORDERS Category Date Time Status CT angio abdomen pelvis Stat Cat Scan 01/24/24 19:[address] angio chest PE protocol Stat Cat Scan 01/24/24 17:[address] cervical spine wo con Stat Cat Scan 01/24/24 17:[address] thoracic spine wo con Stat Cat Scan 01/24/24 17:38 Completed Complete Blood Count Auto Diff AMLAB Lab 01/25/24 06:00 Ordered Complete Blood Count Auto Diff Stat Lab 01/24/24 17:50 Completed Comprehensive Metabolic Panel AMLAB Lab 01/25/24 06:00 Ordered Comprehensive Metabolic Panel Stat Lab 01/24/24 17:50 Completed Lipase Stat Lab 01/24/24 17:50 Completed Magnesium AMLAB Lab 01/25/24 06:00 Ordered NT Pro Brain Natriuretic Pep. Stat Lab 01/24/24 17:50 Completed Troponin I Q3H Lab 01/24/24 20:50 Completed Troponin I Q3H Lab 01/24/24 22:44 Received Troponin I Stat Lab 01/24/24 17:50 Completed UA [Urinalysis and Microscopic] Stat Lab 01/24/24 19:45 Completed ECG Data Tracing #1: I reviewed this ECG and interpreted as documented below: Atrial fibrillation with a ventricular rate of 83 bpm. PVC noted. No acute ST changes concerning for ischemia. Nonspecific ST/T wave changes. ECG initial impression date: 01/24/24 ECG initial impression time: 17:50 Medical Decision Narrative: In summary, this patient is a 88-year-old female presenting to the Emergency Department for evaluation of atraumatic right upper back/shoulder pain. Differential diagnoses considered include but are not limited to musculoskeletal strain/sprain, osteoarthritis, rotator cuff injury, cervical radiculopathy, thoracic referred pain, atypical presentation of ACS, vascular pathology. Ruling out the most morbid conditions drove assessment. It should be noted patient's history includes extensive cardiac disease which may not be at goal therapy. This complicates all aspects of care by increasing patient's risk for morbidity. I reviewed patient's past medical records and noted evaluation here yesterday for similar symptoms, at which point x-rays of the right shoulder were negative. On exam, the patient is nontoxic-appearing with reassuring vital signs on cardiac telemetry. Her upper extremity is neurovascularly intact and she has no appreciable bony tenderness. Her pain does not change with any sort of range of motion, and she does have intact range of motion of her right shoulder. She does not have any abdominal pain/tenderness that would suggest that this is referred pain, however she continues to have severe pain despite Intermatic management as an outpatient and multiple evaluations both in the ED and by her primary care. Workup included CBC, CMP, lipase, troponin, EKG, CT C/T-spine, CTA of the chest. She was given IM Toradol, oral Tylenol, oral Robaxin, and a topical Lidoderm patch for symptomatic improvement. Please demonstrate that the patient has an THANH with hyperkalemia. No significant EKG changes related to hyperkalemia. Bolus of IV fluids was ordered to help minimize risk of contrast-induced nephropathy in the setting of THANH, as I feel contrasted scans are important to rule out vascular pathology. Given her THANH as well as the pain, which could actually be referred pain from kidney if it is causing diaphragmatic irritation potentially, CT abdomen/pelvis was also added as well as UA. I independently interpreted CT scans prior to the radiologist read and noted no effusion as well as ascites. Patient has a stable splenic artery aneurysm without change. Please see their read for final interpretation. On reassessment, patient has continued pain that is uncontrolled. Given this, she was given a dose of IV morphine. It is still possible that this pain could be musculoskeletal, however could be referred pain from her pleural effusion, which is likely due to CHF in the setting of her cardiac dysfunction in the past. Given her lab derangements, I feel that she would benefit from admission for further evaluation and management. Patient was admitted after interactive discussion with the hospitalist. Critical Care Critical Care Time Critical Care Time: No
--- NOTE | 2024-01-24 17:47 | ECG_ITS ---
APPROVED REPORT Exam: Resting ECG HR:83 bpm ECG Measurements Heart Rate 83 AXES QRSd 102 QRS 91 QT 390 T -17 QTc 430 Conclusion ATRIAL FIBRILLATION BORDERLINE RIGHT AXIS DEVIATION [QRS AXIS > 90] LOW QRS VOLTAGE IN PRECORDIAL LEADS [QRS DEFLECTION < 1.0 mV IN CHEST LEADS] MINIMAL ST DEPRESSION [0.025+ mV ST DEPRESSION] ABNORMAL QRS-T ANGLE [QRS-T AXIS DIFFERENCE > 60] Electronically signed by : JENNYFER DICKSON, 01/24/2024 23:54:34
[2024-01-24 18:01] LABS: Basophils % 0.1 % (0.1-2.0); Eosinophils # 0.1 K/mm3 (0.0-0.4); Eosinophils % 0.9 % (0.1-12.0); Hematocrit 37.5 % (37.0-47.0); Hemoglobin 11.6 g/dL (12.2-16.2); Lymphocytes # 0.5 K/mm3 (0.7-4.5); Lymphocytes % 6.9 % (10-50); Mean Corpuscular HGB Conc 30.8 g/dL (31.8-35.4); Mean Corpuscular Hemoglobin 28.7 pg (27.0-31.2); Mean Corpuscular Volume 93.3 fl (81-99); Mean Platelet Volume 9.1 fl (7.4-10.4); Monocytes # 0.1 K/mm3 (0.1-1.0); Monocytes % 1.3 % (1.7-9.3); Neutrophils % 90.8 % (37.0-80.0); Platelet Count 142 K/mm3 (142-424); Red Blood Count 4.02 M/mm3 (4.20-5.40); Red Cell Distribution Width 15.6 % (11.5-17.5); White Blood Count 6.6 K/mm3 (4.8-10.8)
[2024-01-24 18:05] LABS: Chloride 101 mmol/L (98-107); Sodium 133 mmol/L (136-145)
[2024-01-24 18:08] LABS: Alanine Aminotransferase 37 U/L (12-78); Albumin Level 3.8 g/dl (3.5-5.0); Albumin/Globulin Ratio 1.5 (1.1-1.8); Alkaline Phosphatase 154 U/L (38-126); Aspartate Amino Transferase 43 U/L (14-36); Bilirubin,Total 0.6 mg/dl (0.2-1.3); Blood Urea Nitrogen 70 mg/dl (7-17); Calcium 8.8 mg/dl (8.4-10.2); Carbon Dioxide 23 mmol/L (22.0-30.0); Creatinine Clearance Estimated 21 mL/min (50-200); Estimated Glomerular Filt Rate 25 ml/min (>60); GFR (African American) 30 ML/MIN (>60); Globulin 2.6 g/dL (1.3-3.2); Glucose 383 mg/dl (74-100); Lipase 20 U/L (23-300); Total Protein,Serum 6.4 g/dl (6.3-8.2)
--- NOTE | 2024-01-24 18:47 | PC.NURSE ---
ROUNDED ON PT. WARM BLANKET PROVIDED. CALL LIGHT REMAINS WITHIN REACH
[2024-01-24 18:51] LABS: MANUAL DIFFERENTIAL MANUAL DIFFERENTIAL (MANUAL DIFF)
--- NOTE | 2024-01-24 18:51 | PC.NURSE ---
CT SCANS DELAYED DUE TO WAITING ON LAB RESULTS
[2024-01-24 18:57] LABS: Anion Gap 15.3 mEq/L (5-15); Troponin I < 0.01 ng/ml (0.00-0.034)
[2024-01-24 18:58] LABS: Potassium 6.3 mmoL/L (3.5-5.1)
--- NOTE | 2024-01-24 19:00 | PC.NURSE ---
Soraida from the lab called a Critical lab value for the pt. Potassium level is 6.3. and RN notified. CR
--- NOTE | 2024-01-24 19:05 | CT_ITS ---
PROCEDURE INFORMATION: Exam: CTA Abdomen and Pelvis With Contrast Exam date and time: 01/24/2024 7:21 PM Age: 88 years old Clinical indication: Abdominal pain; Generalized; Additional info: R shoulder pain, severe back pain TECHNIQUE: Imaging protocol: Computed tomographic angiography of the abdomen and pelvis with contrast. Exam focused on the arteries. 3D rendering (Not supervised by radiologist): MIP and/or 3D reconstructed images were created by the technologist. Radiation optimization: All CT scans at this facility use at least one of these dose optimization techniques: automated exposure control; mA and/or kV adjustment per patient size (includes targeted exams where dose is matched to clinical indication); or iterative reconstruction. Contrast material: ISOVUE 370; Contrast volume: 80 ml; Contrast route: INTRAVENOUS (IV); COMPARISON: CT ABDOMEN PELVIS W CON 09/02/2023 10:35 AM FINDINGS: Aorta: Dense atherosclerotic calcification throughout the aorta and its branches. No evidence of aneurysm or dissection. Celiac trunk and mesenteric arteries: No occlusion or significant stenosis. Stable 14 mm splenic artery aneurysm. Renal arteries: No occlusion or significant stenosis. Right iliac arteries: No occlusion or significant stenosis. Left iliac arteries: No occlusion or significant stenosis. Veins: Retroaortic left renal vein. Liver: No mass. Diffuse fatty change of the liver noted. Reflux of contrast into the IVC and hepatic veins compatible with an element of right heart failure. Gallbladder and bile ducts: Gallbladder is not visualized, possibly surgically absent. Pancreas: Unremarkable. No mass. No ductal dilation. Spleen: Unremarkable. No splenomegaly. Adrenal glands: Unremarkable. No mass. Kidneys and ureters: Stable 3.5 cm cortical cyst of the left kidney. Right kidney appears normal. No urolithiasis or hydronephrosis. Stomach and bowel: Significant diverticulosis throughout the distal colon. No bowel wall thickening or evidence of bowel obstruction. Mild diffuse bowel wall edema. Appendix: No evidence of appendicitis. Intraperitoneal space: Mild diffuse mesenteric/omental edema. Minimal scattered free fluid throughout the abdomen and pelvis. No free air. Lymph nodes: Unremarkable. No enlarged lymph nodes. Urinary bladder: Unremarkable. No mass. Reproductive: Uterus is surgically absent. No adnexal abnormality. Bones/joints: No acute fracture. Soft tissues: Unremarkable. IMPRESSION: 1. No evidence of aortic aneurysm or dissection. Significant atherosclerotic changes noted and stable 14 mm splenic artery aneurysm noted. 2. Mild findings of anasarca including minimal ascites, diffuse bowel wall edema and mild diffuse mesenteric/omental edema. This may be due to underlying liver disease and/or congestive heart failure
[2024-01-24] MEDS: LACTATED RINGERS 1000ML 1,000 ML 999 ML IV (19:10)
[2024-01-24 19:11] LABS: Lymphocytes % 9 % (10-50); Neutrophils % 91 % (42-76); Platelet Estimate Normal; Total Cells Counted 100
[2024-01-24 19:12] LABS: Acanthocytes 1+; Hypochromasia 1+
--- NOTE | 2024-01-24 19:15 | PC.NURSE ---
Pt transported to CT
[2024-01-24] MEDS: IOPAMIDOL-370 (76%);100ML BOTTLE 80 ML IV (19:29)
[2024-01-24] MEDS: 0.9 % SODIUM CHLORIDE 50 ML VIAL IV (19:29)
[2024-01-24] MEDS: SODIUM CHLORIDE 0.9% 10ML SYR (RAD ONLY) 10 ML IV (19:29)
--- NOTE | 2024-01-24 19:31 | HMH.ITSTN ---
GFR results were overrode for the use of contrast media by the Physician on a risk vs. benefit situation with this patient.
--- NOTE | 2024-01-24 19:45 | PC.NURSE ---
pt assisted to BSC, UA obtained, pillow blanket provided, family at bedside no other needs at this time
[2024-01-24 19:46] LABS: Microscopic, Urine URINE MICROSCOPIC (MICROSCOPIC)
[2024-01-24 19:54] LABS: Appearance,Urine CLEAR (Clear); Bilirubin,Urine Negative (Negative); Blood, Urine Negative (Negative); Color,Urine YELLOW (Yellow); Glucose,Urine (UA) 3+ (Negative); Ketones,Urine Negative (Negative); Leukocyte Esterase,Urine Negative (Negative); Nitrate,Urine Negative (Negative); Protein,Urine Negative (Negative); Urobilinogen,Urine 0.2 EU/dl (0.2)
[2024-01-24 20:05] LABS: WBC,Urine Occasional #/hpf (0-3)
--- NOTE | 2024-01-24 20:47 | PC.NURSE ---
Patient assigned room 210.
[2024-01-24] MEDS: MORPHINE 4MG/ML SYRINGE 4 MG IV (20:49)
[2024-01-24 20:56] LABS: NT Pro Brain Natriuretic Pep. 5500 pg/mL (0-450)
--- NOTE | 2024-01-24 20:58 | EXP.HP ---
History of Present Illness *Admission Date: 01/24/24 *Reason for visit:: Right shoulder pain *History of present illness: This is a 88-year-old female with PMHx of IDDM, CKD, CAD, Afib, pacemaker in situ, Grade II diastolic dysfunction and left shoulder pain that resolved after cortisone injections presented with right shoulder pain. She noted that pain started on Wednesday, no history of trauma. ED evaluation at that time included negative xray. Pain came on suddenly and she had severe pain in her right upper back/shoulder/neck Patient was discharged home with instructions for supportive management after pain had improved with Toradol, Tylenol, and a lidocaine patch. She followed up with her primary care provider as well who noted they were going to send her to physical therapy, MRI, and referred to Ortho. and started pn meloxican. She presents now because the pain is still severe. admitted for further treatment. [facility] Disclaimer: The information contained in this section may have been updated after the patient was seen, as this information can be updated by other users. Medical History (Updated 01/25/24 @ 03:13 by Adonis Downey APRN) CKD (chronic kidney disease) stage 3, GFR 30-59 ml/min Seasonal allergies Hyperlipemia Hypertension Atypical angina Abnormal cardiovascular stress test Nausea vomiting and diarrhea Atypical chest pain Fatigue Gastroenteritis Arthritis History of anemia History of gastroesophageal reflux (GERD) Diabetes mellitus, type 2 History of cataract Arrhythmia History of pacemaker History of left heart catheterization (LHC) Gastritis Acute blood loss anemia (ABLA) Hyperglycemia Angina at rest Hyperglycemia without ketosis PAF (paroxysmal atrial fibrillation) Acute kidney injury DKA (diabetic ketoacidosis) Dyspnea Lactose intolerance Strep throat Pancytopenia 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 antigen is unknown, or is not H7 Hypokalemia Hypotension Digitalis toxicity Edema SOB (shortness of breath) Leukocytosis Colitis Viral gastroenteritis Lactic acidosis Hyperglycemia due to diabetes mellitus Palpitations Primary osteoarthritis of right shoulder CHF (congestive heart failure) Cardiomyopathy Atrial fibrillation with RVR Right shoulder pain Peripheral arterial disease Atrial fibrillation Hyperkalemia Renal insufficiency Urinary tract infection Anemia Acute renal insufficiency Cardiogenic shock Diabetes Pre-syncope Contusion of sternum Fatigue SOB (shortness of breath) on exertion Leg pain, bilateral HLD (hyperlipidemia) Angina pectoris Cardiac pacemaker in situ SSS (sick sinus syndrome) HTN (hypertension) Pulmonary HTN Chest wall pain following surgery Coronary artery disease Surgical History History of esophagogastroduodenoscopy (EGD) Hx of tonsillectomy History of colonoscopy History of hysterectomy History of appendectomy History of cholecystectomy Family History Other No significant family history Social History Smoking Status: Never smoker second hand exposure: No alcohol intake: never substance use type: denies use current occupational status: disabled Travel in the last 8 weeks: Inside the [place] household members: family housing: house caffeine: No Review of Systems Review of Systems Review of systems:: pertinent systems reviewed and negative unless documented below Meds Home Medications and Allergies Home Medications Medication Instructions Recorded Confirmed Type cyanocobalamin (vitamin B-12) 2,500 mcg sublingual BID 08/18/21 01/25/24 History 2,500 mcg sublingual tablet multivitamin-ferrous 1 each PO DAILY Supplement 08/18/21 01/24/24 History fumarate-folic acid 18 mg-400 mcg tablet mirabegron 25 mg tablet,extended 25 mg PO HS 09/23/23 01/24/24 History release 24 hr (Myrbetriq) ondansetron 4 mg disintegrating 4 mg PO Q6H PRN Nausea And 10/06/23 01/24/24 Rx tablet Vomiting #30 tabs ferrous gluconate 324 mg (38 mg 324 mg PO DAILY 60 days #60 tabs 11/08/23 01/24/24 Rx iron) tablet flash glucose sensor (FreeStyle #2 ea 12/06/23 01/24/24 Rx Kia 14 Day Sensor kit) nitroglycerin 0.4 mg sublingual 0.4 mg sublingual Q5M PRN chest 12/20/23 01/24/24 Rx tablet pain #30 tabs furosemide 20 mg tablet 20 mg PO Q OTHER DAY #30 tabs 12/22/23 01/24/24 Rx insulin glargine 100 unit/mL (3 15 unit (0.15 mL) SQ BID 60 days 12/24/23 01/25/24 Rx mL) subcutaneous pen (Lantus #18 mL Solostar U-100 Insulin) omeprazole 40 mg capsule,delayed 40 mg PO DAILY Acid Reflux #90 caps 01/13/24 01/24/24 Rx release sertraline 100 mg tablet 100 mg PO DAILY depressed #90 tabs 01/14/24 01/24/24 Rx atorvastatin 40 mg tablet 40 mg PO HS 01/24/24 01/24/24 History bisoprolol fumarate 5 mg tablet 2.5 mg PO HS 01/24/24 01/24/24 History cetirizine 10 mg tablet 10 mg PO HS 01/24/24 01/24/24 History clopidogrel 75 mg tablet 75 mg PO DAILY 01/24/24 01/24/24 History docusate sodium 100 mg capsule 100 mg PO HS Constipation 01/24/24 01/24/24 History fluticasone propionate 50 1 spray intranasal DAILY 01/24/24 01/24/24 History mcg/actuation nasal spray,suspension levothyroxine 50 mcg tablet 50 mcg PO HS 01/24/24 01/24/24 History rivaroxaban 15 mg tablet (Xarelto) 15 mg PO HS 01/24/24 01/24/24 History verapamil 120 mg 24 hr 120 mg PO HS 01/24/24 01/24/24 History capsule,extended release aspirin 81 mg tablet,delayed 81 mg PO HS 01/25/24 01/25/24 History release empagliflozin 10 mg tablet 20 mg PO DAILY 01/25/24 01/24/24 History (Jardiance) isosorbide mononitrate 30 mg 15 mg PO DAILY 01/25/24 01/25/24 History tablet,extended release 24 hr New Prescriptions to Start Prescriptions: Allergies Allergy/AdvReac Type Severity Reaction Status Date / Time methylprednisolone Allergy Mild Elevated Verified 01/24/24 10:54 glucose Exam Data for Last 24 hours Vital signs and Labs for Last 24 Hours: Temp Pulse Resp BP Pulse Ox O2 Del Method 98.2 F 75 18 123/78 95 Room Air 01/24/24 16:56 01/24/24 18:46 01/24/24 18:46 01/24/24 18:46 01/24/24 18:46 01/24/24 18:46 Laboratory Results - last 24 hr 01/24/24 17:50: WBC 6.6, RBC 4.02 L, Hgb 11.6 L, Hct 37.5, MCV 93.3, MCH 28.7, MCHC 30.8 L, RDW 15.6, Plt Count 142, MPV 9.1, Neut % (Auto) 90.8 H, Lymph % (Auto) 6.9 L, [place] % (Auto) 1.3 L, Eos % (Auto) 0.9, Baso % (Auto) 0.1, Neut # (Auto) 6.0, Lymph # (Auto) 0.5 L, [place]ion # (Auto) 0.1, Eos # (Auto) 0.1, Baso # (Auto) 0.0, Total Counted 100, Neutrophils % (Manual) 91 H, Lymphocytes % (Manual) 9 L, Platelet Estimate Normal, Hypochromasia 1+, Acanthocytes (Spur) 1+, Sodium 133 L, Potassium 6.3 H*, Chloride 101, Carbon Dioxide 23, Anion Gap 15.3 H, BUN 70 H, Creatinine 1.90 H, Estimated Creat Clear 21, Estimated GFR 25 L, Est GFR ( Amer) 30 L, Glucose 383 H, Calcium 8.8, Total Bilirubin 0.6, AST 43 H, ALT 37, Alkaline Phosphatase 154 H, Troponin I < 0.01, Total Protein 6.4, Albumin 3.8, Globulin 2.6, Albumin/Globulin Ratio 1.5, Lipase 20 L 01/24/24 19:45: Urine Color Yellow, Urine Appearance Clear, Urine pH 6.0, Ur Specific Harmony 1.010, Urine Protein Negative, Urine Glucose (UA) 3+, Urine Ketones Negative, Urine Blood Negative, Urine Nitrate Negative, Urine Bilirubin Negative, Urine Urobilinogen 0.2, Ur Leukocyte Esterase Negative, Urine RBC None, Urine WBC Occasional, Ur Squamous Epith Cells 5-10, Urine Bacteria None Pulse Resp BP Pulse Ox O2 Del Method 70 20 127/64 95 Room Air 09/22/23 16:00 09/22/23 14:00 09/22/23 14:00 09/22/23 14:00 09/22/23 14:00 Laboratory Results - last 24 hr 09/22/23 09:30: WBC 8.0, RBC 4.24, Hgb 10.8 L, Hct 32.6 L, MCV 77.0 L, MCH 25.5 L, MCHC 33.1, RDW 16.4, Plt Count 187, MPV 7.2 L, Neut % (Auto) 73.5, Lymph % (Auto) 18.3, Irion % (Auto) 4.1, Eos % (Auto) 3.9, Baso % (Auto) 0.2, Neut # (Auto) 5.9, Lymph # (Auto) 1.5, Irion # (Auto) 0.3, Eos # (Auto) 0.3, Baso # (Auto) 0.0, Sodium 139, Potassium 4.8, Chloride 101, Carbon Dioxide 26, Anion Gap 16.8 H, BUN 27 H, Creatinine 1.20 H, Estimated Creat Clear 30, Estimated GFR 43 L, Est GFR ( Amer) 52 L, Glucose 232 H, Calcium 9.5 09/22/23 13:20: Activated Clotting Time 227 H* I & O for Last 24 hours: Intake & Output 01/21/24 01/22/24 01/23/24 01/24/24 23:59 23:59 23:59 23:59 Weight 61.235 kg Intake & Output 09/19/23 09/20/23 09/21/23 09/22/23 23:59 23:59 23:59 23:59 Intake Total 240 / 240 Balance 240 / 240 Weight 56.699 kg Constitutional Constitutional: no acute distress *Routine HEENT Exam Head: Present normocephalic Eye: Present EOMI and PERRL ENT: Present mucous membranes moist *Routine Neck Exam Neck: Present supple; Absent lymphadenopathy *Routine Respiratory Exam Respiratory: Present CTA bilaterally *Routine Cardiovascular Exam Cardiovascular: Present RRR *Routine Abdominal Exam Abdominal: Present soft and normoactive bowel sounds; Absent tenderness *Routine Rectal Exam Rectal:: deferred *Routine Genitalia Exam Genitalia:: deferred *Routine Extremities Exam Extremities: Absent cyanosis, clubbing or edema *Routine Skin Exam Skin: Present warm; Absent rash *Routine Neurological Exam Neurological: Present alert and oriented X3 H&P: Result Imaging and Cardiology EKG: Status: image reviewed by me, Preliminary report and final report CT scan - abdomen: Status: image reviewed by me, Preliminary report and final report CT scan - chest: Status: image reviewed by me, Preliminary report and final report Shoulder X ray : Status: image reviewed by me, Preliminary report and final report Assessment and Plan *Assessment and plan (1) THANH (acute kidney injury): Status: Acute Category: Medical Code(s): N17.9 - Acute kidney failure, unspecified (2) Acute hyperkalemia: Status: Acute Category: Medical Code(s): E87.5 - Hyperkalemia (3) Left shoulder pain: Status: Acute Qualifiers: Chronicity: acute Qualified Code(s): M25.512 - Pain in left shoulder Category: Medical Code(s): M25.512 - Pain in left shoulder (4) Pleural effusion: Status: Acute Category: Medical Code(s): J90 - Pleural effusion, not elsewhere classified (5) Acute exacerbation of CHF (congestive heart failure): Status: Acute Qualifiers: Heart failure type: right-sided Qualified Code(s): I50.813 - Acute on chronic right heart failure Category: Medical Code(s): I50.9 - Heart failure, unspecified (6) Aneurysm of splenic artery: Status: Acute Category: Medical Code(s): I72.8 - Aneurysm of other specified arteries (7) CKD (chronic kidney disease) stage 3, GFR 30-59 ml/min: Status: Acute Qualifiers: Chronic kidney disease stage 3 subtype: stage 3a (GFR 45-59) Qualified Code(s): N18.31 - Chronic kidney disease, stage 3a Category: Medical Code(s): N18.30 - Chronic kidney disease, stage 3 unspecified (8) Coronary artery disease: Problem Comment: Patient follows with cardiology on a regular basis. Status: Acute Qualifiers: Associated angina: with other forms of angina Coronary Disease-Associated Artery/Lesion type: [place] artery [place] vs. transplanted heart: [place] heart Qualified Code(s): I25.118 - Atherosclerotic heart disease of [place] coronary artery with other forms of angina pectoris Category: Medical Code(s): I25.10 - Atherosclerotic heart disease of [place] coronary artery without angina pectoris (9) Atrial fibrillation: Problem Comment: Patient was regular rate and rhythm today. Patient is following with cardiology. Status: Acute Qualifiers: Atrial fibrillation type: unspecified chronic Qualified Code(s): I48.20 - Chronic atrial fibrillation, unspecified Category: Medical Code(s): I48.91 - Unspecified atrial fibrillation (10) Diabetes mellitus type 2 in nonobese: Problem Comment: Changes to be made in her insulin last visit seem to work quite well. Will check an A1c today although its only been a month. I do not expect it to have changed that much however in discussions with both Kareen and her daughter it was agreed that we should not seek tight control of her blood sugars at this time. Status: Acute Category: Medical Code(s): E11.9 - Type 2 diabetes mellitus without complications Plan 88-year-old female with PMHx of IDDM, CKD, CAD, Afib, pacemaker in situ, Grade II diastolic dysfunction and left shoulder pain that resolved after cortisone injections presented with right shoulder pain. on arrival patient presented with non toxic appearance, labs work showed increased creatinine above her baseline, with hyperkalemia. No EKG changes, CT of abdomnen concern for ascites and right pleural effusion. discretional bolus given. tylenol, robaxin and toradol given. Discussed with ED. Agreed for admission. Plan: -Acute on chronic kidney injury, prerenal likely secondary to NSAID treatment for rigth shoulder pain: Hyperkalemia: Intractable right shoulder pain: Admit patient start cardiac monitoring monitor renal output Gentle IV hydration. @50ml/hr 2L boluses given at ED. lasix 40mg one time given Avoid nephrotoxic medication. NSAID pain management tylenol lidocaine topical and morphine repeat CMP to assess K - Suspected worsened CHF. right pleural effusion: ascites: Cardiology consulted ECHO ordered. Last back on 2022 showed grade II diastolic dysfunction with preserved EF lasix 20mg BID patient on home lasix 20mg was every other day. with eGFR less than 30, higher dose may be required. -Aneurism of the splenic: incidental findings. patient does not c/o abdominal pain. does not seen to be correlated with right shoulder pain. continue monitoring Optimize BP Afib, and CAD, Pacemaker: resume home regimen IDDM: accucheck before meal home lantus 15U BID last A1c 8.3. may need adjust sliding scale On Plavix and Xarelto. On protonix Full code Rounded on patient after nurse practitioner. Personally examined and interviewed patient. Agree with exam findings and care plan as documented.
[2024-01-24 21:52] LABS: Troponin I < 0.01 ng/ml (0.00-0.034)
[2024-01-24 23:13] LABS: Alanine Aminotransferase 47 U/L (12-78); Albumin Level 3.6 g/dl (3.5-5.0); Albumin/Globulin Ratio 1.3 (1.1-1.8); Alkaline Phosphatase 146 U/L (38-126); Anion Gap 13.9 mEq/L (5-15); Aspartate Amino Transferase 69 U/L (14-36); Bilirubin,Total 0.5 mg/dl (0.2-1.3); Blood Urea Nitrogen 61 mg/dl (7-17); Calcium 8.9 mg/dl (8.4-10.2); Carbon Dioxide 22 mmol/L (22.0-30.0); Chloride 104 mmol/L (98-107); Creatinine Clearance Estimated 21 mL/min (50-200); Estimated Glomerular Filt Rate 24 ml/min (>60); GFR (African American) 29 ML/MIN (>60); Globulin 2.7 g/dL (1.3-3.2); Glucose 260 mg/dl (74-100); Potassium 5.9 mmoL/L (3.5-5.1); Sodium 134 mmol/L (136-145); Total Protein,Serum 6.3 g/dl (6.3-8.2)
[2024-01-24] MEDS: VERAPAMIL SR 120MG TABLET 120 MG PO (23:49)
[2024-01-24] MEDS: DOCUSATE SODIUM 100 MG CAPSULE PO (23:50)
[2024-01-24] MEDS: BISOPROLOL 5MG TABLET 2.5 MG PO (23:50)
[2024-01-24] MEDS: PANTOPRAZOLE 40MG TABLET 40 MG PO (23:50)
[2024-01-24] MEDS: RIVAROXABAN 15MG TABLET 15 MG PO (23:51)
[2024-01-24] MEDS: ASPIRIN EC 81MG TABLET 81 MG PO (23:51)
[2024-01-24] MEDS: LEVOTHYROXINE 50MCG (0.05MG) TAB 50 MCG PO (23:51)
[2024-01-24] MEDS: ATORVASTATIN 40MG TABLET 40 MG PO (23:51)
[2024-01-24 23:52] LABS: Troponin I < 0.01 ng/ml (0.00-0.034)
[2024-01-24] MEDS: FUROSEMIDE 40MG/4ML VIAL 40 MG IV (23:52)
[2024-01-24] MEDS: INSULIN GLARGINE 100 UNITS/ML 3ML FLEXPEN 15 UNIT SQ (23:56)
[2024-01-25] VITALS (9 sets, daily range): BP systolic 101–121; BP diastolic 53–69; PULSE 70–104; RESP 16–18; TEMP 36.3–36.8; O2SAT 93–99; BMI 25.1
--- NOTE | 2024-01-25 03:07 | CA_ITS ---
APPROVED REPORT EXAM: Comprehensive 2D, Doppler, and color-flow Echocardiogram Presser Hand: Aleja Short, IRAM, RVS Ht: 5 ft 2 in Wt: 141lbs BSA: 1.65 BP: 123/78 mmHg Indications: heart failure,Afib, CM,Pacer, Murmur,phtn 2D Dimensions Left Atrium 3.70 cm LA Volume 62.10 mL LA Volume Index 37.035580 mL/m2 (M/F) 16-34 M-Mode Dimensions RVDd 4.01 cm (0.9-2.6) LA Diam 4.23 cm (1.9-4.0) LVDd 3.50 cm (3.5-5.7) LVDs 2.61 cm (3.5-5.7) IVSd 0.79 cm (0.6-1.1) PWd 0.93 cm (0.6-1.1) EF (Teich) 57.90% EPSs 0.72 cm FS 29.80% EDV (Teich) 58.90 mL TAPSE 1.51 (<1.7) ESV (Teich) 24.80 mL LV Diastology E Decel Time 217 (160-240 msec) E/A Ratio 4.05 MED A' 2.90 cm/s LAT A' 2.80 cm/s Aortic Valve [place] Index 0.37 cm2/m2 AoV Peak Baljit. 153.0 (50-130 cm/s) AO Peak GR. 9.40 mmHg AO Mean GR. 4.70 (<5 mmHg) AO VTI 35.9 (18-25 cm) [place] (VTI) 0.62 (2.5-4.5 cm2) Mitral Valve MV A Velocity 23.0 (40-130 cm/s) E/A Ratio 4.05 MV Mean Gr. 1.20 (<2mmHg) Pulmonary Valve TN End VMAX 147.0 cm/s Tricuspid Valve TR P. Velocity 208.00 cm/s RAP Estimate 15.00 mmHg RVSP 32.30 mmHg Left Ventricle The left ventricle is normal size. The left ventricular systolic function is normal. The left ventricular ejection fraction is within the normal range. There is normal left ventricular wall thickness. The septum is asynchronous. Diastolic function is indeterminate. LVEF is 55%. Right Ventricle The right ventricle is severely dilated. Right ventricle is mildly hypokinetic. Atria Left atrium is moderately dilated. Right atrium is severely dilated. There is no Doppler evidence of interatrial shunt. Aortic Valve Aortic valve is mildly thickened. There is no aortic valvular stenosis. Trace aortic regurgitation. Mitral Valve The mitral valve leaflets are mildly thickened. No evidence of mitral valve stenosis. Mild mitral regurgitation. Tricuspid Valve The tricuspid valve leaflets are thin and pliable. Severe tricuspid regurgitation. RVSP is inaccurate in the setting of severe TR. Pulmonic Valve The pulmonary valve is normal in structure. Mild pulmonic regurgitation. Great Vessels The aortic root is normal in size. The ascending aorta is not well-visualized. IVC is normal in size and collapses >50% with inspiration. Pericardium There is no pericardial effusion. Other Information Study Quality: Fair Conclusion Normal LV systolic function. Asynchronous septum. Severe RV dilation with mild reduction in RV function. Biatrial dilation. Mild MR. Severe TR. Electronically signed by : Erica Harris MD 01/26/2024 11:35:29
[2024-01-25 06:38] LABS: Chloride 105 mmol/L (98-107)
[2024-01-25 06:39] LABS: Sodium 136 mmol/L (136-145)
[2024-01-25 06:41] LABS: Alanine Aminotransferase 55 U/L (12-78); Alkaline Phosphatase 128 U/L (38-126); Aspartate Amino Transferase 78 U/L (14-36); Bilirubin,Total 0.5 mg/dl (0.2-1.3); Blood Urea Nitrogen 63 mg/dl (7-17); Carbon Dioxide 25 mmol/L (22.0-30.0); Creatinine Clearance Estimated 21 mL/min (50-200); Estimated Glomerular Filt Rate 24 ml/min (>60); GFR (African American) 29 ML/MIN (>60)
[2024-01-25 06:42] LABS: Albumin Level 3.4 g/dl (3.5-5.0); Albumin/Globulin Ratio 1.4 (1.1-1.8); Calcium 8.8 mg/dl (8.4-10.2); Globulin 2.5 g/dL (1.3-3.2); Glucose 208 mg/dl (74-100); Magnesium 2.1 mg/dl (1.6-2.3); Total Protein,Serum 5.9 g/dl (6.3-8.2)
[2024-01-25 06:43] LABS: Basophils % 0.2 % (0.1-2.0); Eosinophils % 0.2 % (0.1-12.0); Hematocrit 34.2 % (37.0-47.0); Hemoglobin 10.6 g/dL (12.2-16.2); Lymphocytes # 0.8 K/mm3 (0.7-4.5); Lymphocytes % 12.6 % (10-50); Mean Corpuscular HGB Conc 31.1 g/dL (31.8-35.4); Mean Corpuscular Hemoglobin 27.6 pg (27.0-31.2); Mean Corpuscular Volume 88.8 fl (81-99); Mean Platelet Volume 8.4 fl (7.4-10.4); Monocytes # 0.3 K/mm3 (0.1-1.0); Monocytes % 4.9 % (1.7-9.3); Neutrophils # 5.5 K/mm3 (1.8-7.8); Neutrophils % 82.1 % (37.0-80.0); Platelet Count 136 K/mm3 (142-424); Red Blood Count 3.85 M/mm3 (4.20-5.40); Red Cell Distribution Width 15.7 % (11.5-17.5); White Blood Count 6.7 K/mm3 (4.8-10.8)
--- NOTE | 2024-01-25 08:07 | HMH.PHAINT1 ---
Pharmacy Intervention Comments: HOME MEDICATION LIST VERIFIED VIA CLINIC PHARMACY AND PHYSICAN NOTES
[2024-01-25] MEDS: CLOPIDOGREL 75MG TAB 75 MG PO (08:12)
[2024-01-25] MEDS: FLUTICASONE PROP 50MCG NASAL SPRAY 16GM 1 SPRAY NS (08:12)
[2024-01-25] MEDS: FUROSEMIDE 20MG TABLET 20 MG PO (08:12)
[2024-01-25] MEDS: SERTRALINE 100MG TABLET 100 MG PO (08:12)
[2024-01-25] MEDS: INSULIN GLARGINE 100 UNITS/ML 3ML FLEXPEN 15 UNIT SQ ×2 (08:19→17:52)
[2024-01-25 08:30] LABS: POC Glucose,Bedside 206 (70-110)
--- NOTE | 2024-01-25 10:19 | P.CONCA_ITS ---
History of Present Illness History of Present Illness Consult date: 01/25/24 Requesting physician: Armando Greer Consult reason: congestive heart failure and known to you Chief complaint: right shoulder pain, HFpEF, CKD Additional Medical History:: 1. CAD A. SIERRA to circumflex, 09/2017 B. LHC and LE runoff, 01/28/2018, moderate LAD and severe disease of 2 mm first and second diagonal arteries, medical therapy recommended. Lower extremity runoff with mild disease only. C. Lexiscan Myoview 08/2023, large size moderate reversible perfusion defect in the inferior LV wall. EF 64% D. LHC, 09/22/2023, Lithotripsy with 2 SIERRA placed to RCA and PDA. Persistent moderate proximal to mid LAD stenosis relegated to medical therapy 2. Pulmonary hypertension 3. Hypertension A. Echocardiogram, 08/2023, normal BiV systolic function, grade 2 DD, mild to moderate RV dilatation, mild biatrial dilatation, mild MR, moderate to severe TR, RVSP 35-40 mmHg. 4. Pacemaker in situ for sick sinus syndrome, 09/28/2017 5. Atrial fibrillation, newly diagnosed 11/2020 A. anticoagulation started for [id number] score of 5 6. Cardiomyopathy A. Echocardiogram, 11/2020, EF 40% with global hypokinesis. Moderate RV e nlargement with normal contractility. Mild MR and moderate to severe TR. B. Echo, 04/2021, EF 55%, mild conc LVH, mod RV enlargement, mild MR, mod TR, RVSP 37 mm Hg 7. HFpEF A. Hospitalized in 2020 8. IDDM 9. History of CVA 10. Hypothyroidism, on replacement 11. Hyperlipidemia 12. GERD A. History of laryngoscopy with esophageal dilatation, Dr. Mcginnis, 2004 and 2005 13. History of melena with hemoglobin of 4.4, 11/2021 A. Colonoscopy 01/2022, Dr. Bermudez, 13 polyps removed some greater than 1 cm in size. Nonbleeding AVM in the cecum. Pandiverticulosis most pronounced in the sigmoid colon. 14. PAD by lower extremity angiogram, 2017 15. Right shoulder discomfort, recurrent 16. 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 She noted that pain started on Wednesday, no history of trauma. ED evaluation at that time included negative xray. Pain came on suddenly and she had severe pain in her right upper back/shoulder/neck Patient was discharged home with instructions for supportive management after pain had improved with Toradol, Tylenol, and a lidocaine patch. She followed up with her primary care provider as well who noted they were going to send her to physical therapy, MRI, and referred to Ortho. and started pn meloxican. She presents now because the pain is still severe. admitted for further treatment. The above per Elbert Downey APRN for the hospitalist service Cardiology consulted for commenting on possible exacerbation of HFpEF and worse enrique CKD. Patient denies any chest pain, pressure or tightness. No significant shortness of breath or lower extremity edema. Her main complaint is right shoulder discomfort as noted above. BNP noted to be 5500 CTA of the chest was negative for pulmonary embolus, aortic aneurysm or dissection. Right atrium enlargement with signs of right heart failure. Small right pleural effusion noted. No active pulmonary infiltrate noted. CTA of abdomen pelvis, 01/24/2024, no evidence of aortic aneurysm or dissection. 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 Findings of anasarca including minimal ascites, diffuse bowel edema and mild diffuse mesenteric/omental edema noted possibly due to underlying liver disease and/or CHF Patient's renal function/creatinine has recently increased from 1.3-2.0 without identifiable cause. Patient denies any significant antibiotic use or NSAID use outside of what is referenced above. [facility] Disclaimer: The information contained in this section may have been updated after the patient was seen, as this information can be updated by other users. Medical History (Updated 01/25/24 @ 03:13 by Adonis Downey APRN) CKD (chronic kidney disease) stage 3, GFR 30-59 ml/min Seasonal allergies Hyperlipemia Hypertension Atypical angina Abnormal cardiovascular stress test Nausea vomiting and diarrhea Atypical chest pain Fatigue Gastroenteritis Arthritis History of anemia History of gastroesophageal reflux (GERD) Diabetes mellitus, type 2 History of cataract Arrhythmia History of pacemaker History of left heart catheterization (LHC) Gastritis Acute blood loss anemia (ABLA) Hyperglycemia Angina at rest Hyperglycemia without ketosis PAF (paroxysmal atrial fibrillation) Acute kidney injury DKA (diabetic ketoacidosis) Dyspnea Lactose intolerance Strep throat Pancytopenia 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 antigen is unknown, or is not H7 Hypokalemia Hypotension Digitalis toxicity Edema SOB (shortness of breath) Leukocytosis Colitis Viral gastroenteritis Lactic acidosis Hyperglycemia due to diabetes mellitus Palpitations Primary osteoarthritis of right shoulder CHF (congestive heart failure) Cardiomyopathy Atrial fibrillation with RVR Right shoulder pain Peripheral arterial disease Atrial fibrillation Hyperkalemia Renal insufficiency Urinary tract infection Anemia Acute renal insufficiency Cardiogenic shock Diabetes Pre-syncope Contusion of sternum Fatigue SOB (shortness of breath) on exertion Leg pain, bilateral HLD (hyperlipidemia) Angina pectoris Cardiac pacemaker in situ SSS (sick sinus syndrome) HTN (hypertension) Pulmonary HTN Chest wall pain following surgery Coronary artery disease Surgical History History of esophagogastroduodenoscopy (EGD) Hx of tonsillectomy History of colonoscopy History of hysterectomy History of appendectomy History of cholecystectomy Family History Other No significant family history Social History Smoking Status: Never smoker second hand exposure: No alcohol intake: never substance use type: denies use current occupational status: disabled Travel in the last 8 weeks: Inside the [place] household members: family housing: house caffeine: No Review of Systems Review of Systems Review of systems:: pertinent systems reviewed and negative unless documented below *Cardiovascular Cardiovascular: Denies chest pain and Denies dyspnea *Respiratory Respiratory: Denies dyspnea *Musculoskeletal Musculoskeletal: Reports arthralgias Exam Data for Last 24 hours Vital signs and Labs for Last 24 Hours: Temp Pulse Resp BP Pulse Ox O2 Del Method 97.4 F L 82 18 102/54 L 98 Room Air 01/25/24 08:00 01/25/24 08:00 01/25/24 08:00 01/25/24 08:00 01/25/24 08:00 01/25/24 09:00 Laboratory Results - last 24 hr 01/24/24 17:50: WBC 6.6, RBC 4.02 L, Hgb 11.6 L, Hct 37.5, MCV 93.3, MCH 28.7, MCHC 30.8 L, RDW 15.6, Plt Count 142, MPV 9.1, Neut % (Auto) 90.8 H, Lymph % (Auto) 6.9 L, Har[place] % (Auto) 1.3 L, Eos % (Auto) 0.9, Baso % (Auto) 0.1, Neut # (Auto) 6.0, Lymph # (Auto) 0.5 L, [place]ney # (Auto) 0.1, Eos # (Auto) 0.1, Baso # (Auto) 0.0, Total Counted 100, Neutrophils % (Manual) 91 H, Lymphocytes % (Manual) 9 L, Platelet Estimate Normal, Hypochromasia 1+, Acanthocytes (Spur) 1+, Sodium 133 L, Potassium 6.3 H*, Chloride 101, Carbon Dioxide 23, Anion Gap 15.3 H, BUN 70 H, Creatinine 1.90 H, Estimated Creat Clear 21, Estimated GFR 25 L, Est GFR ( Amer) 30 L, Glucose 383 H, Calcium 8.8, Total Bilirubin 0.6, AST 43 H, ALT 37, Alkaline Phosphatase 154 H, Troponin I < 0.01, NT-Pro-B Natriuret Pep 5500 H, Total Protein 6.4, Albumin 3.8, Globulin 2.6, Albumin/Globulin Ratio 1.5, Lipase 20 L 01/24/24 19:45: Urine Color Yellow, Urine Appearance Clear, Urine pH 6.0, Ur Specific [place] 1.010, Urine Protein Negative, Urine Glucose (UA) 3+, Urine Ketones Negative, Urine Blood Negative, Urine Nitrate Negative, Urine Bilirubin Negative, Urine Urobilinogen 0.2, Ur Leukocyte Esterase Negative, Urine RBC None, Urine WBC Occasional, Ur Squamous Epith Cells 5-10, Urine Bacteria None 01/24/24 20:50: Troponin I < 0.01 01/24/24 22:44: Sodium 134 L, Potassium 5.9 H, Chloride 104, Carbon Dioxide 22, Anion Gap 13.9, BUN 61 H, Creatinine 2.00 H, Estimated Creat Clear 21, Estimated GFR 24 L, Est GFR ( Amer) 29 L, Glucose 260 H D, Calcium 8.9, Total Bilirubin 0.5, AST 69 H D, ALT 47 D, Alkaline Phosphatase 146 H, Troponin I < 0.01, Total Protein 6.3, Albumin 3.6, Globulin 2.7, Albumin/Globulin Ratio 1.3 01/25/24 05:48: WBC 6.7, RBC 3.85 L, Hgb 10.6 L, Hct 34.2 L, MCV 88.8, MCH 27.6, MCHC 31.1 L, RDW 15.7, Plt Count 136 L, MPV 8.4, Neut % (Auto) 82.1 H, Lymph % (Auto) 12.6, [place] % (Auto) 4.9, Eos % (Auto) 0.2, Baso % (Auto) 0.2, Neut # (Aut o) 5.5, Lymph # (Auto) 0.8, Harney # (Auto) 0.3, Eos # (Auto) 0.0, Baso # (Auto) 0.0, Sodium 136, Potassium 5.0, Chloride 105, Carbon Dioxide 25, Anion Gap 11.0, BUN 63 H, Creatinine 2.00 H, Estimated Creat Clear 21, Estimated GFR 24 L, Est GFR ( Amer) 29 L, Glucose 208 H, Calcium 8.8, Magnesium 2.1, Total Bilirubin 0.5, AST 78 H, ALT 55, Alkaline Phosphatase 128 H, Total Protein 5.9 L , Albumin 3.4 L, Globulin 2.5, Albumin/Globulin Ratio 1.4 01/25/24 08:10: POC Glucose 206 H I & O for Last 24 hours: Intake & Output 01/22/24 01/23/24 01/24/24 01/25/24 11:59 11:59 11:59 11:59 Intake Total 340 / 340 Output Total 500 / 500 Balance -160 / -160 Weight 141 lb 14.4 oz Constitutional Constitutional: no acute distress *Routine Respiratory Exam Respiratory: Present CTA bilaterally *Routine Cardiovascular Exam Cardiovascular: Present RRR and murmur; Absent gallop or rubs *Routine Extremities Exam Extremities: Absent edema *Routine Neurological Exam Neurological: Present alert, oriented X3 and CN II-XII intact Meds Home Medications and Allergies Home Medications Medication Instructions Recorded Confirmed Type cyanocobalamin (vitamin B-12) 2,500 mcg sublingual BID 08/18/21 01/25/24 History 2,500 mcg sublingual tablet multivitamin-ferrous 1 each PO DAILY Supplement 08/18/21 01/24/24 History fumarate-folic acid 18 mg-400 mcg tablet mirabegron 25 mg tablet,extended 25 mg PO HS 09/23/23 01/24/24 History release 24 hr (Myrbetriq) ondansetron 4 mg disintegrating 4 mg PO Q6H PRN Nausea And 10/06/23 01/24/24 Rx tablet Vomiting #30 tabs ferrous gluconate 324 mg (38 mg 324 mg PO DAILY 60 days #60 tabs 11/08/23 01/24/24 Rx iron) tablet flash glucose sensor (FreeStyle #2 ea 12/06/23 01/24/24 Rx Kai 14 Day Sensor kit) nitroglycerin 0.4 mg sublingual 0.4 mg sublingual Q5M PRN chest 12/20/23 01/24/24 Rx tablet pain #30 tabs furosemide 20 mg tablet 20 mg PO Q OTHER DAY #30 tabs 12/22/23 01/24/24 Rx insulin glargine 100 unit/mL (3 15 unit (0.15 mL) SQ BID 60 days 12/24/23 01/25/24 Rx mL) subcutaneous pen (Lantus #18 mL Solostar U-100 Insulin) omeprazole 40 mg capsule,delayed 40 mg PO DAILY Acid Reflux #90 caps 01/13/24 01/24/24 Rx release sertraline 100 mg tablet 100 mg PO DAILY depressed #90 tabs 01/14/24 01/24/24 Rx atorvastatin 40 mg tablet 40 mg PO HS 01/24/24 01/24/24 History bisoprolol fumarate 5 mg tablet 2.5 mg PO HS 01/24/24 01/24/24 History cetirizine 10 mg tablet 10 mg PO HS 01/24/24 01/24/24 History clopidogrel 75 mg tablet 75 mg PO DAILY 01/24/24 01/24/24 History docusate sodium 100 mg capsule 100 mg PO HS Constipation 01/24/24 01/24/24 History fluticasone propionate 50 1 spray intranasal DAILY 01/24/24 01/24/24 History mcg/actuation nasal spray,suspension levothyroxine 50 mcg tablet 50 mcg PO HS 01/24/24 01/24/24 History rivaroxaban 15 mg tablet (Xarelto) 15 mg PO HS 01/24/24 01/24/24 History verapamil 120 mg 24 hr 120 mg PO HS 01/24/24 01/24/24 History capsule,extended release aspirin 81 mg tablet,delayed 81 mg PO HS 01/25/24 01/25/24 History release empagliflozin 10 mg tablet 20 mg PO DAILY 01/25/24 01/24/24 History (Jardiance) isosorbide mononitrate 30 mg 15 mg PO DAILY 01/25/24 01/25/24 History tablet,extended release 24 hr New Prescriptions to Start Prescriptions: Allergies Allergy/AdvReac Type Severity Reaction Status Date / Time methylprednisolone Allergy Mild Elevated Verified 01/24/24 10:54 glucose Assessment and Plan *Assessment and plan (1) Right shoulder pain: Status: Acute Qualifiers: Chronicity: acute Qualified Code(s): M25.511 - Pain in right shoulder Category: Medical Code(s): M25.511 - Pain in right shoulder (2) Anemia: Problem Comment: We need to check a CBC at her next visit. Status: Acute Qualifiers: Anemia type: unspecified type Qualified Code(s): D64.9 - Anemia, unspecified Category: Medical Code(s): D64.9 - Anemia, unspecified (3) Coronary artery disease: Problem Comment: Patient follows with cardiology on a regular basis. Status: Acute Qualifiers: Associated angina: with other forms of angina Coronary Disease- Associated Artery/Lesion type: [place] artery [place] vs. transplanted heart: [place] heart Qualified Code(s): I25.118 - Atherosclerotic heart disease of [place] coronary artery with other forms of angina pectoris Category: Medical Code(s): I25.10 - Atherosclerotic heart disease of [place] coronary artery without angina pectoris (4) HLD (hyperlipidemia): Problem Comment: Will continue with current therapy. Status: Acute Qualifiers: Hyperlipidemia type: mixed hyperlipidemia Qualified Code(s): E78.2 - Mixed hyperlipidemia Category: Medical Code(s): E78.5 - Hyperlipidemia, unspecified (5) History of coronary artery stent placement: Status: Acute Category: Surgical Code(s): Z95.5 - Presence of coronary angioplasty implant and graft Plan 1. Right shoulder pain -defer to Ortho as outpatient -OK to hold Xarelto for 2 days in order to have injection 2. Acute on chronic CKD -hold diuretics -outpatient referral to Nephrology 3. HFpEF -clinically stable -echo pending -continue bisoprolol, jardiance and verapamil -hold diuretics due to worsening CKD 4. CAD, clinically stable -stop ASA -continue plavix 5. SSS/Pacer in situ -continue Xarelto -EKG shows atrial fibrillation with controlled ventricular response with intermittent pacing capture 6. Chronic anemia -Continue PPI therapy -Hemoglobin stable around 10.5 7. Hypothyroidism -Continue replacement 8. Diabetes mellitus -Defer to hospital Clinically stable from a cardiac standpoint. Monitor renal status possibly discharge home later today or tomorrow Home medication recommendations: Plavix 75 mg daily Bisoprolol 2.5 mg daily Xarelto 15 mg daily Verapamil 120 mg Atorvastatin 40 mg Jardiance 20 mg daily Hold Lasix for 1 week Stop aspirin and isosorbide Follow-up in our office next week with BMP We will arrange for outpatient nephrology referral
[2024-01-25 12:21] LABS: POC Glucose,Bedside 188 (70-110)
[2024-01-25] MEDS: MORPHINE 2MG/ML SYRINGE 2 MG IV ×2 (13:23→17:55)
--- NOTE | 2024-01-25 13:45 | HMH.PTEV ---
Physical Therapy Evaluation Rehab PT IP Evaluation Start: 01/25/24 10:59 Freq: ONCE Status: Active Protocol: Document 01/25/24 13:30 MARTHA (Rec: 01/25/24 13:35 MARTHA [email or web address]) Subjective/History History History Per H&P: This is a 88-year-old female with PMHx of IDDM, CKD, CAD, Afib, pacemaker in situ, Grade II diastolic dysfunction and left shoulder pain that resolved after cortisone injections presented with right shoulder pain. She noted that pain started on Wednesday, no history of trauma. ED evaluation at that time included negative xray. Pain came on suddenly and she had severe pain in her right upper back/shoulder/neck Patient was discharged home with instructions for supportive management after pain had improved with Toradol, Tylenol , and a lidocaine patch. She followed up with her primary care provider as well who noted they were going to send her to physical therapy, MRI, and referred to Ortho. and started pn meloxican. She presents now because the pain is still severe. admitted for further treatment. Subjective Subjective PLOF per pt report: Lives with children who rotate care so pt can have 24 hour support. Lives in single story home with no steps. Uses rollator for modified IND ambulation. New diagnosis of cancer in past 12 No months? Rehab PT IP Eval Objective Appearance Patient Behavior Appropriate,Cooperative Patient Orientation Person,Place,Birthday, Situation Difficulty following instructions none Speech Pattern Clear Ambulation Patient Able to Ambulate Yes Ambulation Observation IP General Gait Pattern Observation Wide Based Gait Ambulation Distance (feet) 8 Ambulation Assistive Device None Ambulation Ability Contact Guard/Hand Hold, Minimal x 1 (25% assist) Balance Ability to Arise Able, uses arms to help Sitting Balance Steady, safe Standing Balance Unsteady Transfers Bed Transfer Ability Minimal x 1 (25% assist) Sit to Stand Bed Transfer Ability Contact Guard/Hand Hold Rehab PT IP prob,goals,plan Problems Date of Evaluation: 01/25/24 PT IP Problems Bed Mobility,Transfers,Gait, Balance,Safety Rehab Potential Rehab Potential Good Equipment Needs Assistive Devices Rolling / Wheeled Walker Plan PT Intervention Plan Transfers,Gait,Balance,Safety, Therapeutic Exercise Other Intervention Plan 1-2 times PT Plan Frequency Daily Duration LOS Discharge Goals Bed Transfer Ability Supervision/Stand by Sit to Stand Chair Transfer Ability Supervision/Stand by Ambulation Assistive Device Rolling Walker Ambulation Distance (feet) 20 Discharge Plan PT Discharge Plan Initial physical therapy evaluation performed. Patient presents below baseline at this time in functional mobility, transfers, gait, and strength. Pt would benefit from skilled PT while at [facility] to prevent further functional decline and maximize safety with mobility. Pt safe to d/c home when deemed medically necessary with care by family d/t current level of mobility, home set-up, and family support. PT recommending home health PT services to address deficits. If family is unable to provide 24 hour care like pt reports, pt would benefit from short term rehab placement. Eval Complexity Eval Charge Codes 41943 - Moderate Complexity PHYSICIAN CERTIFICATION: I certify the specified therapy services for Kareen Mallory are required, authorized, and reviewed every 30 days.
--- NOTE | 2024-01-25 13:47 | HMH.OTEV ---
OT Inpatient Evaluation Rehab OT IP Evaluation Start: 01/25/24 10:59 Freq: ONCE Status: Active Protocol: Document 01/25/24 13:33 [facility] (Rec: 01/25/24 13:46 [facility] [email or web address]) Rehab OT IP Assessment Subjective History Pt is oriented x 3 on arrival. Pt agreeable to engage in therapy evaluation; daugther present and supportive. Pt admitted on 01/24/24 due to THANH , shoulder pain, hyperkalemia, and new heart failure. History and physical: This is a 88-year-old female with PMHx of IDDM, CKD, CAD, Afib, pacemaker in situ, Grade II diastolic dysfunction and left shoulder pain that resolved after cortisone injections presented with right shoulder pain. She noted that pain started on Wednesday, no history of trauma. ED evaluation at that time included negative xray. Pain came on suddenly and she had severe pain in her right upper back/shoulder/neck Patient was discharged home with instructions for supportive management after pain had improved with Toradol, Tylenol , and a lidocaine patch. She followed up with her primary care provider as well who noted they were going to send her to physical therapy, MRI, and referred to Ortho. and started pn meloxican. She presents now because the pain is still severe. admitted for further treatment. Subjective My family helps me. Prior to being in the hospital , pt lived at home. Pt claims normally her son stays every night with her and her two daugthers come to sit with her throughout the day. Pt reports she is normally independent with dressing, sponge bathing, and feeding. However, she is dependent upon family for completion of all IADLs. Pt does use a rollator during functional transfers; no steps in her home. Objective Patient Orientation Person,Place,Birthday Right Upper Extremity Gross ROM WFL Left Upper Extremity Gross ROM WFL Bed Mobility bed mobility-scooting,bed mobility - supine/sit Assist Level Minimal x 1 (25% assist) Transfer Training Sit/Stand Transfer Assist Level Minimal x 2 (25% assist) Rehab OT IP prob,goals,plan Problems Date of Evaluation: 01/25/24 OT IP Problems Bed Mobility,Transfers,Balance ,Self care,Safety Rehab Potential Rehab Potential Good Equipment Needs Assistive Devices Rolling / Wheeled Walker Plan OT intervention Plan Bed Mobility,Transfers,Balance ,Self care,Safety,Therapeutic Exercise OT Plan Frequency Daily Duration LOS Discharge Goals Bed Mobility Ability Standby Assistance Sit to Stand Chair Transfer Ability Minimal x 1 (25% assist) Chair Transfer Ability Minimal x 1 (25% assist) Chair Transfer Technique Sit to/from Ambulatory Chair Transfer Assistive Devices Rolling Walker Feeding Ability Assist with Tray Set Up Lower Body Dressing Ability Minimal Assistance Upper Body Dressing Ability Standby Assistance Bathing Ability Minimal Assistance Performing Toilet Hygiene Ability Minimal Assistance Overall Commode/Toilet Transfer Ability Contact Guard Commode/Toilet Transfer Technique Sit to/from Ambulatory Commode/Toilet Transfer Assistive Grab Bars Devices Oral Care Assist Standby Assistance Decrease in Endurance No Discharge Plan OT Discharge Plan Pt will continue to be seen for OT services while at [facility]. Pt appears to be close to her baseline with functional transfers and ADL independence . Pt can return home with family if they are able to provide 24/7 assist temporarily. If she returns home, therapist recommends OT evaluation. If family is unable to provide 24/7 care, pt would benefit from short term rehab at [facility] for continued skilled therapy. Eval Complexity Eval Charge Codes 70872 - Moderate Complexity PHYSICIAN CERTIFICATION: I certify the specified therapy services for Kareen Mallory are required, authorized, and reviewed every 30 days.
--- NOTE | 2024-01-25 16:14 | PC.NURSE ---
no acute changes since previous assessment. medicated x1 for shoulder pain per mar with good effectiveness.
[2024-01-25 19:43] LABS: Blood Urea Nitrogen 66 mg/dl (7-17); Carbon Dioxide 26 mmol/L (22.0-30.0); Chloride 103 mmol/L (98-107); Creatinine Clearance Estimated 20 mL/min (50-200); Sodium 137 mmol/L (136-145)
[2024-01-25 19:44] LABS: Calcium 8.9 mg/dl (8.4-10.2); Estimated Glomerular Filt Rate 22 ml/min (>60); GFR (African American) 27 ML/MIN (>60); Glucose 257 mg/dl (74-100)
[2024-01-25] MEDS: PAT OWN MED ***ATORVASTATIN 40MG 40 MG PO (20:44)
[2024-01-25] MEDS: BISOPROLOL 5 MG 2.5 MG PO (20:45)
[2024-01-25] MEDS: DOCUSATE SODIUM 100 MG PO (20:45)
[2024-01-25] MEDS: PAT OWN MED ***LEVOTHYROXINE 50MCG 50 MCG PO (20:46)
[2024-01-25] MEDS: MIRABEGRON 25 MG 25 EACH PO (20:46)
[2024-01-25] MEDS: PANTOPRAZOLE 40MG TABLET 40 MG PO (20:56)
[2024-01-25 21:06] LABS: POC Glucose,Bedside 218 (70-110)
--- NOTE | 2024-01-25 21:40 | EXP.ACUTE.PN ---
Subjective *Date: 01/25/24 *Time: 21:41 Interval history: Continues to complain of shoulder pain. Denies any chest pain, shortness of breath, nausea or vomiting. Stable on room air. Kidney function still abnormal on morning labs. Family at bedside. Medical Exam Vital signs and Labs for Last 24 Hours: Vital Signs Temp Pulse Pulse Resp BP Pulse Ox O2 Del Method 01/25/24 21:03 Room Air 01/25/24 20:50 104 H 101/58 L Room Air 01/25/24 20:00 98.1 F 70 16 109/69 L 99 Room Air 01/25/24 18:58 Room Air 01/25/24 17:00 Room Air 01/25/24 16:00 80 01/25/24 16:00 97.9 F 96 H 16 113/58 L 98 Room Air 01/25/24 15:00 Room Air 01/25/24 13:00 Room Air 01/25/24 12:00 80 01/25/24 11:52 97.8 F 95 H 18 113/53 L 93 L Room Air 01/25/24 11:00 Room Air 01/25/24 09:00 Room Air 01/25/24 08:00 80 01/25/24 08:00 Room Air 01/25/24 08:00 97.4 F L 82 18 102/54 L 98 Room Air 01/25/24 07:00 Room Air 01/25/24 05:00 Room Air 01/25/24 04:00 92 H 01/25/24 04:00 97.6 F 83 16 105/58 L 97 Room Air 01/25/24 03:00 Room Air 01/25/24 01:00 Room Air 01/25/24 00:03 90 121/67 01/25/24 00:00 80 01/25/24 00:00 98.3 F 90 16 120/58 L 98 01/24/24 23:00 Room Air 01/24/24 23:00 Room Air Intake and Output 01/25/24 01/25/24 01/25/24 07:59 15:59 23:59 Intake Total 220 / 1170 290 / 1170 660 / 1170 Output Total 500 / 1550 0 / 1550 1050 / 1550 Balance -280 / -380 290 / -380 -390 / -380 Intake: Intake, Oral Amount 220 / 1170 290 / 1170 660 / 1170 Output: Output, Urine Amount 500 / 1550 0 / 1550 1050 / 1550 Other: Number of Unmeasured Voids 0 0 0 Weight 64.365 kg Patient Weight 01/25/24 23:59 Weight 64.365 kg Laboratory Results - last 24 hr 01/24/24 20:50: Troponin I < 0.01 01/24/24 22:44: Sodium 134 L, Potassium 5.9 H, Chloride 104, Carbon Dioxide 22, Anion Gap 13.9, BUN 61 H, Creatinine 2.00 H, Estimated Creat Clear 21, Estimated GFR 24 L, Est GFR ( Amer) 29 L, Glucose 260 H D, Calcium 8.9, Total Bilirubin 0.5, AST 69 H D, ALT 47 D, Alkaline Phosphatase 146 H, Troponin I < 0.01, Total Protein 6.3, Albumin 3.6, Globulin 2.7, Albumin/Globulin Ratio 1.3 01/25/24 05:48: WBC 6.7, RBC 3.85 L, Hgb 10.6 L, Hct 34.2 L, MCV 88.8, MCH 27.6, MCHC 31.1 L, RDW 15.7, Plt Count 136 L, MPV 8.4, Neut % (Auto) 82.1 H, Lymph % (Auto) 12.6, [place] % (Auto) 4.9, Eos % (Auto) 0.2, Baso % (Auto) 0.2, Neut # (Auto) 5.5, Lymph # (Auto) 0.8, [place] # (Auto) 0.3, Eos # (Auto) 0.0, Baso # (Auto) 0.0, Sodium 136, Potassium 5.0, Chloride 105, Carbon Dioxide 25, Anion Gap 11.0, BUN 63 H, Creatinine 2.00 H, Estimated Creat Clear 21, Estimated GFR 24 L, Est GFR ( Amer) 29 L, Glucose 208 H, Calcium 8.8, Magnesium 2.1, Total Bilirubin 0.5, AST 78 H, ALT 55, Alkaline Phosphatase 128 H, Total Protein 5.9 L, Albumin 3.4 L, Globulin 2.5, Albumin/Globulin Ratio 1.4 01/25/24 08:10: POC Glucose 206 H 01/25/24 12:14: POC Glucose 188 H 01/25/24 19:18: Sodium 137, Potassium 5.0, Chloride 103, Carbon Dioxide 26, Anion Gap 13.0, BUN 66 H, Creatinine 2.10 H, Estimated Creat Clear 20, Estimated GFR 22 L, Est GFR ( Amer) 27 L, Glucose 257 H D, Calcium 8.9 01/25/24 20:39: POC Glucose 218 H I & O for Labs for Last 24 Hours: Intake & Output 01/22/24 01/23/24 01/24/24 01/25/24 23:59 23:59 23:59 23:59 Intake Total 1170 / 1170 Output Total 1550 / 1550 Balance -380 / -380 Weight 64.365 kg 64.365 kg Constitutional: Present no acute distress, average body habitus, chronically ill appearing and cooperative Head: Present atraumatic and normocephalic ENT: Present normal exam Neck: Present normal inspection Respiratory: Present normal respiratory effort; Absent rhonchi, wheezes or crackles Cardiac: Present Reg Rate and Rhythm GI: Present soft and normal bowel sounds; Absent distention or tenderness Extremities: Present normal inspection and full ROM; Absent edema Skin: Present intact; Absent erythema Neuro: Present Grossly Intact, alert, awake and moves all extremities Assessment and Plan *Assessment and plan (1) THANH (acute kidney injury): Status: Acute Category: Medical Code(s): N17.9 - Acute kidney failure, unspecified (2) Acute hyperkalemia: Status: Acute Category: Medical Code(s): E87.5 - Hyperkalemia (3) Left shoulder pain: Status: Acute Qualifiers: Chronicity: acute Qualified Code(s): M25.512 - Pain in left shoulder Category: Medical Code(s): M25.512 - Pain in left shoulder (4) Pleural effusion: Status: Acute Category: Medical Code(s): J90 - Pleural effusion, not elsewhere classified (5) Acute exacerbation of CHF (congestive heart failure): Status: Acute Qualifiers: Heart failure type: right-sided Qualified Code(s): I50.813 - Acute on chronic right heart failure Category: Medical Code(s): I50.9 - Heart failure, unspecified (6) Aneurysm of splenic artery: Status: Acute Category: Medical Code(s): I72.8 - Aneurysm of other specified arteries (7) CKD (chronic kidney disease) stage 3, GFR 30-59 ml/min: Status: Acute Qualifiers: Chronic kidney disease stage 3 subtype: stage 3a (GFR 45-59) Qualified Code(s): N18.31 - Chronic kidney disease, stage 3a Category: Medical Code(s): N18.30 - Chronic kidney disease, stage 3 unspecified (8) Coronary artery disease: Problem Comment: Patient follows with cardiology on a regular basis. Status: Acute Qualifiers: Coronary Disease-Associated Artery/Lesion type: [place] artery [place] vs. transplanted heart: [place] heart Associated angina: with other forms of angina Qualified Code(s): I25.118 - Atherosclerotic heart disease of [place] coronary artery with other forms of angina pectoris Category: Medical Code(s): I25.10 - Atherosclerotic heart disease of [place] coronary artery without angina pectoris (9) Atrial fibrillation: Problem Comment: Patient was regular rate and rhythm today. Patient is following with cardiology. Status: Acute Qualifiers: Atrial fibrillation type: unspecified chronic Qualified Code(s): I48.20 - Chronic atrial fibrillation, unspecified Category: Medical Code(s): I48.91 - Unspecified atrial fibrillation (10) Diabetes mellitus type 2 in nonobese: Problem Comment: Changes to be made in her insulin last visit seem to work quite well. Will check an A1c today although its only been a month. I do not expect it to have changed that much however in discussions with both Kareen and her daughter it was agreed that we should not seek tight control of her blood sugars at this time. Status: Acute Category: Medical Code(s): E11.9 - Type 2 diabetes mellitus without complications Plan 88-year-old female with PMHx of IDDM, CKD, CAD, Afib, pacemaker in situ, Grade II diastolic dysfunction and left shoulder pain that resolved after cortisone injections presented with right shoulder pain. on arrival patient presented with non toxic appearance, labs work showed increased creatinine above her baseline, with hyperkalemia. No EKG changes, CT of abdomnen concern for ascites and right pleural effusion. Patient received bolus in the ER. Subsequently received diuresis. Kidney function remains abnormal this morning on labs. Cardiology consulted and assisting with care. Continues to require inpatient management for monitoring of improvement in kidney function. Unable to inject right shoulder today as she is on triple therapy with aspirin, Plavix, and Xarelto. Has appointment later this week with her PCP. Will hold Xarelto. Problems addressed as follows: -Acute on chronic kidney injury, prerenal likely secondary to NSAID treatment for right shoulder pain: Hyperkalemia: Potassium improved in the morning around 5. Magnesium 2.1. Kidney function still abnormal with BUN 63, creatinine 2. Baseline 3. Repeat BMP this afternoon. Repeat CMP, CBC, magnesium ordered for the morning. Avoiding NSAIDs. Chart review shows she received multiple doses of Toradol over the past few days as IM or IV for her shoulder pain Discontinue Lasix Tolerating p.o. fluids Intractable right shoulder pain: Continue Tylenol, lidocaine patch. Discussed injection, holding at this time due to triple therapy with aspirin, Plavix, Xarelto. Defer to appointment with PCP later this week - Suspected worsened CHF. right pleural effusion: ascites: Cardiology consulted, discussed case this morning, appreciate their recommendations. Hold Lasix in the setting of THANH ECHO ordered. Last back on 2022 showed grade II diastolic dysfunction with preserved EF Appears clinically dry on exam -Aneurism of the splenic Aa: incidental findings. patient does not c/o abdominal pain. does not seem to be correlated with right shoulder pain. continue monitoring Optimize BP A-fib Hyperlipidemia CAD - continue Plavix 75 mg daily. Discontinue aspirin. Holding Xarelto at this time upcoming joint injection. Resume after injection - Continue bisoprolol 2.5 mg nightly -Continue Jardiance 20 mg daily, continue isosorbide 15 mg daily -Continue Lipitor 40 mg nightly IDDM: accucheck before meal home lantus 15U BID last A1c 8.3. Goal A1c less than 8 sliding scale On Plavix and Xarelto On protonix Full code
[2024-01-25] MEDS: LACTATED RINGERS 100 ML IV (22:26)
[2024-01-26] VITALS (10 sets, daily range): BP systolic 96–111; BP diastolic 51–65; PULSE 79–114; RESP 16–18; TEMP 36.5–37; O2SAT 96–98; BMI 25.9
[2024-01-26 01:59] LABS: POC Glucose,Bedside 190 (70-110)
[2024-01-26 06:43] LABS: Chloride 107 mmol/L (98-107); Potassium 4.4 mmoL/L (3.5-5.1); Sodium 141 mmol/L (136-145)
[2024-01-26 06:45] LABS: Alanine Aminotransferase 43 U/L (12-78); Aspartate Amino Transferase 46 U/L (14-36); Blood Urea Nitrogen 64 mg/dl (7-17); Creatinine Clearance Estimated 22 mL/min (50-200); Estimated Glomerular Filt Rate 25 ml/min (>60); GFR (African American) 30 ML/MIN (>60)
[2024-01-26 06:46] LABS: Albumin Level 3.3 g/dl (3.5-5.0); Albumin/Globulin Ratio 1.3 (1.1-1.8); Alkaline Phosphatase 111 U/L (38-126); Anion Gap 10.4 mEq/L (5-15); Bilirubin,Total 0.4 mg/dl (0.2-1.3); Calcium 8.9 mg/dl (8.4-10.2); Carbon Dioxide 28 mmol/L (22.0-30.0); Globulin 2.5 g/dL (1.3-3.2); Glucose 79 mg/dl (74-100); Total Protein,Serum 5.8 g/dl (6.3-8.2)
[2024-01-26 06:49] LABS: POC Glucose,Bedside 78 (70-110)
[2024-01-26 06:53] LABS: Basophils % 0.6 % (0.1-2.0); Eosinophils # 0.1 K/mm3 (0.0-0.4); Eosinophils % 1.3 % (0.1-12.0); Hemoglobin 10.8 g/dL (12.2-16.2); Lymphocytes # 1.6 K/mm3 (0.7-4.5); Lymphocytes % 28.4 % (10-50); Mean Corpuscular HGB Conc 31.8 g/dL (31.8-35.4); Mean Corpuscular Hemoglobin 28.3 pg (27.0-31.2); Mean Corpuscular Volume 88.8 fl (81-99); Mean Platelet Volume 7.9 fl (7.4-10.4); Monocytes # 0.3 K/mm3 (0.1-1.0); Monocytes % 4.9 % (1.7-9.3); Neutrophils # 3.7 K/mm3 (1.8-7.8); Neutrophils % 64.8 % (37.0-80.0); Platelet Count 149 K/mm3 (142-424); Red Blood Count 3.83 M/mm3 (4.20-5.40); Red Cell Distribution Width 15.8 % (11.5-17.5); White Blood Count 5.7 K/mm3 (4.8-10.8)
[2024-01-26] MEDS: MORPHINE 2MG/ML SYRINGE 2 MG IV ×3 (07:57→22:17)
[2024-01-26] MEDS: PAT OWN MED ***CLOPIDOGREL 75MG 75 MG PO (08:02)
[2024-01-26] MEDS: SERTRALINE 100 MG PO (08:03)
[2024-01-26] MEDS: FLUTICASONE PROP 50MCG NASAL SPRAY 16GM 1 SPRAY NS (08:03)
[2024-01-26] MEDS: INSULIN GLARGINE 100 UNITS/ML 3ML FLEXPEN 15 UNIT SQ ×2 (08:04→18:03)
[2024-01-26] MEDS: LORATADINE 10MG TABLET 10 MG PO (08:07)
[2024-01-26 08:18] LABS: POC Glucose,Bedside 110 (70-110)
--- NOTE | 2024-01-26 08:54 | P.PN_ITS ---
Subjective Subjective Date: 01/26/24 Time: 08:54 Principal diagnosis: Right shoulder pain, HFpEF Interval history: 88-year-old white female in bed. Still complains of right shoulder discomfort. Denies any chest pain. Relates some abdominal swelling and constipation. Exam Data for Last 24 hours Vital signs and Labs for Last 24 Hours: Temp Pulse Resp BP Pulse Ox O2 Del Method 98.1 F 93 H 18 111/59 L 98 Room Air 01/26/24 07:31 01/26/24 07:31 01/26/24 07:31 01/26/24 07:31 01/26/24 07:31 01/26/24 07:31 Laboratory Results - last 24 hr 01/25/24 12:14: POC Glucose 188 H 01/25/24 16:35: POC Glucose 190 H 01/25/24 19:18: Sodium 137, Potassium 5.0, Chloride 103, Carbon Dioxide 26, Anion Gap 13.0, BUN 66 H, Creatinine 2.10 H, Estimated Creat Clear 20, Estimated GFR 22 L, Est GFR ( Amer) 27 L, Glucose 257 H D, Calcium 8.9 01/25/24 20:39: POC Glucose 218 H 01/26/24 05:42: WBC 5.7, RBC 3.83 L, Hgb 10.8 L, Hct 34.0 L, MCV 88.8, MCH 28.3, MCHC 31.8, RDW 15.8, Plt Count 149, MPV 7.9, Neut % (Auto) 64.8, Lymph % (Auto) 28.4, [place] % (Auto) 4.9, Eos % (Auto) 1.3, Baso % (Auto) 0.6, Neut # (Auto) 3.7, Lymph # (Auto) 1.6, [place] # (Auto) 0.3, Eos # (Auto) 0.1, Baso # (Auto) 0.0, Sodium 141, Potassium 4.4, Chloride 107, Carbon Dioxide 28, Anion Gap 10.4, BUN 64 H, Creatinine 1.90 H, Estimated Creat Clear 22, Estimated GFR 25 L, Est GFR ( Amer) 30 L, Glucose 79 D, Calcium 8.9, Magnesium 2.0, Total Bilirubin 0.4, AST 46 H D, ALT 43, Alkaline Phosphatase 111, Total Protein 5.8 L, Albumin 3.3 L, Globulin 2.5, Albumin/Globulin Ratio 1.3 01/26/24 06:36: POC Glucose 78 01/26/24 08:00: POC Glucose 110 I & O for Last 24 hours: Intake & Output 01/23/24 01/24/24 01/25/24 01/26/24 11:59 11:59 11:59 11:59 Intake Total 340 / 340 2160 / 2160 Output Total 500 / 500 1850 / 1850 Balance -160 / -160 310 / 310 Weight 141 lb 14.4 oz 146 lb 6.4 oz *Routine Cardiovascular Exam Cardiovascular: Present irregularly irregular *Routine Abdominal Exam Abdominal: Present distended Progress Note: A&P Assessment and plan (1) Right shoulder pain: Status: Acute (2) THANH (acute kidney injury): Status: Acute (3) Acute hyperkalemia: Status: Acute (4) Pleural effusion: Status: Acute (5) Acute exacerbation of CHF (congestive heart failure): Status: Acute (6) Aneurysm of splenic artery: Status: Acute (7) CKD (chronic kidney disease) stage 3, GFR 30-59 ml/min: Status: Acute (8) Coronary artery disease: Problem details: Patient follows with cardiology on a regular basis. Status: Acute (9) Atrial fibrillation: Problem details: Patient was regular rate and rhythm today. Patient is following with cardiology. Status: Acute (10) Diabetes mellitus type 2 in nonobese: Problem details: Changes to be made in her insulin last visit seem to work quite well. Will check an A1c today although its only been a month. I do not expect it to have changed that much however in discussions with both Kareen and her daughter it was agreed that we should not seek tight control of her blood sugars at this time. Status: Acute Assessment and Plan Assessment and Plan for All Diagnoses:: 1. Right shoulder pain -defer to Ortho as outpatient -OK to hold Xarelto for 2 days in order to have injection 2. Acute on chronic CKD -hold diuretics -outpatient referral to Nephrology -Creatinine mildly improved down to 1.9 with BUN of 64 and GFR 25 3. HFpEF -clinically stable -echo pending -continue bisoprolol, jardiance and verapamil -hold diuretics due to worsening CKD 4. CAD, clinically stable -stop ASA -continue plavix 5. SSS/Pacer in situ -continue Xarelto -EKG shows atrial fibrillation with controlled ventricular response with intermittent pacing capture 6. Chronic anemia -Continue PPI therapy -Hemoglobin stable around 10.5 7. Hypothyroidism -Continue replacement 8. Diabetes mellitus -Defer to hospital Clinically stable from a cardiac standpoint. Home medication recommendations: Plavix 75 mg daily Bisoprolol 2.5 mg daily Xarelto 15 mg daily Verapamil 120 mg Atorvastatin 40 mg Jardiance 20 mg daily Hold Lasix for 1 week Stop aspirin and isosorbide Follow-up in our office next week with BMP We will arrange for outpatient nephrology referral
[2024-01-26] MEDS: SENNOSIDES 8.6MG/DOCUSATE 50MG TABLET 1 TAB PO ×2 (11:15→20:44)
[2024-01-26 11:26] LABS: POC Glucose,Bedside 125 (70-110)
[2024-01-26 14:41] LABS: Anion Gap 12.3 mEq/L (5-15); Blood Urea Nitrogen 60 mg/dl (7-17); Calcium 8.9 mg/dl (8.4-10.2); Carbon Dioxide 26 mmol/L (22.0-30.0); Chloride 106 mmol/L (98-107); Creatinine Clearance Estimated 19 mL/min (50-200); Estimated Glomerular Filt Rate 21 ml/min (>60); GFR (African American) 26 ML/MIN (>60); Glucose 156 mg/dl (74-100); Potassium 4.3 mmoL/L (3.5-5.1); Sodium 140 mmol/L (136-145)
--- NOTE | 2024-01-26 16:32 | CARE MANAGER ---
Addendum entered by Tess Lang RN 01/27/24 12:09: Patient discharging today, Tania with [facility] notified. Addendum entered by Marycruz Clancy 01/27/24 10:32: Patient information/order will be faxed to [facility] today. Patient will discharge this afternoon. Original Note: Spoke with patient regarding discharge planning. Patient and family requested services. Patient Choice signed for [facility]. Referral faxed and per Tania, services will start tomorrow.
[2024-01-26 18:11] LABS: POC Glucose,Bedside 227 (70-110)
--- NOTE | 2024-01-26 18:39 | EXP.ACUTE.PN ---
Subjective *Date: 01/26/24 *Time: 23:02 Interval history: Patient tolerating p.o. intake. Complaints not having had a bowel movement this morning. Has not had a bowel movement in a couple days. Stable on room air. No fever overnight. Making good urine. Denies any dysuria. Denies any chest pain or shortness of breath. Continues to complain of right shoulder pain. Medical Exam Vital signs and Labs for Last 24 Hours: Vital Signs Temp Pulse Pulse Resp BP Pulse Ox O2 Del Method 01/26/24 18:15 Room Air 01/26/24 17:00 Room Air 01/26/24 16:00 80 01/26/24 16:00 97.8 F 114 H 17 96/64 L 98 Room Air 01/26/24 15:00 Room Air 01/26/24 13:00 Room Air 01/26/24 12:00 100 H 01/26/24 11:22 97.9 F 89 16 106/65 L 98 Room Air 01/26/24 11:00 Room Air 01/26/24 09:00 Room Air 01/26/24 08:00 100 H 01/26/24 08:00 Room Air 01/26/24 07:31 98.1 F 93 H 18 111/59 L 98 Room Air 01/26/24 07:00 Room Air 01/26/24 05:00 Room Air 01/26/24 04:00 79 01/26/24 04:00 98.6 F 93 H 16 96/56 L 97 Room Air 01/26/24 03:00 Room Air 01/26/24 01:00 Room Air 01/26/24 00:00 97.7 F 87 16 102/53 L 96 Room Air 01/26/24 00:00 97 H 01/25/24 23:00 Room Air 01/25/24 21:03 Room Air 01/25/24 21:00 Room Air 01/25/24 20:50 104 H 101/58 L Room Air 01/25/24 20:00 104 H 01/25/24 20:00 98.1 F 70 16 109/69 L 99 Room Air 01/25/24 18:58 Room Air Intake and Output 01/26/24 01/26/24 01/26/24 07:59 15:59 23:59 Intake Total 970 / 1330 360 / 1330 Output Total 800 / 800 0 / 800 Balance 170 / 530 360 / 530 Intake: Intake, Oral Amount 220 / 580 360 / 580 Intake, Total IV Amount 750 / 750 Lactated Ringers 1000ML 750 ml 750 / 750 @ 100 mls/hr IV .[id number] [facility] Rx# :[id number] Output: Output, Urine Amount 800 / 800 0 / 800 Other: Number of Unmeasured Voids 0 0 Weight 66.406 kg Patient Weight 01/26/24 23:59 Weight 66.406 kg Laboratory Results - last 24 hr 01/25/24 16:35: POC Glucose 190 H 01/25/24 19:18: Sodium 137, Potassium 5.0, Chloride 103, Carbon Dioxide 26, Anion Gap 13.0, BUN 66 H, Creatinine 2.10 H, Estimated Creat Clear 20, Estimated GFR 22 L, Est GFR ( Amer) 27 L, Glucose 257 H D, Calcium 8.9 01/25/24 20:39: POC Glucose 218 H 01/26/24 05:42: WBC 5.7, RBC 3.83 L, Hgb 10.8 L, Hct 34.0 L, MCV 88.8, MCH 28.3, MCHC 31.8, RDW 15.8, Plt Count 149, MPV 7.9, Neut % (Auto) 64.8, Lymph % (Auto) 28.4, [place] % (Auto) 4.9, Eos % (Auto) 1.3, Baso % (Auto) 0.6, Neut # (Auto) 3.7, Lymph # (Auto) 1.6, [place] # (Auto) 0.3, Eos # (Auto) 0.1, Baso # (Auto) 0.0, Sodium 141, Potassium 4.4, Chloride 107, Carbon Dioxide 28, Anion Gap 10.4, BUN 64 H, Creatinine 1.90 H, Estimated Creat Clear 22, Estimated GFR 25 L, Est GFR ( Amer) 30 L, Glucose 79 D, Calcium 8.9, Magnesium 2.0, Total Bilirubin 0.4, AST 46 H D, ALT 43, Alkaline Phosphatase 111, Total Protein 5.8 L, Albumin 3.3 L, Globulin 2.5, Albumin/Globulin Ratio 1.3 01/26/24 06:36: POC Glucose 78 01/26/24 08:00: POC Glucose 110 01/26/24 11:17: POC Glucose 125 H 01/26/24 14:20: Sodium 140, Potassium 4.3, Chloride 106, Carbon Dioxide 26, Anion Gap 12.3, BUN 60 H, Creatinine 2.20 H, Estimated Creat Clear 19, Estimated GFR 21 L, Est GFR ( Amer) 26 L, Glucose 156 H D, Calcium 8.9 01/26/24 18:02: POC Glucose 227 H I & O for Labs for Last 24 Hours: Intake & Output 01/23/24 01/24/24 01/25/24 01/26/24 23:59 23:59 23:59 23:59 Intake Total 1170 / 1170 1330 / 1330 Output Total 1550 / 1550 800 / 800 Balance -380 / -380 530 / 530 Weight 64.365 kg 64.365 kg 66.406 kg Constitutional: Present no acute distress, average body habitus, chronically ill appearing and cooperative Head: Present atraumatic and normocephalic ENT: Present normal exam Neck: Present normal inspection Respiratory: Present normal respiratory effort; Absent rhonchi, wheezes or crackles Cardiac: Present Reg Rate and Rhythm GI: Present soft and normal bowel sounds; Absent distention or tenderness Extremities: Present normal inspection and full ROM; Absent edema Skin: Present intact; Absent erythema Neuro: Present Grossly Intact, alert, awake and moves all extremities Assessment and Plan *Assessment and plan (1) THANH (acute kidney injury): Status: Acute Category: Medical Code(s): N17.9 - Acute kidney failure, unspecified (2) Acute hyperkalemia: Status: Acute Category: Medical Code(s): E87.5 - Hyperkalemia (3) Pleural effusion: Status: Acute Category: Medical Code(s): J90 - Pleural effusion, not elsewhere classified (4) Right shoulder pain: Status: Acute Qualifiers: Chronicity: acute Qualified Code(s): M25.511 - Pain in right shoulder Category: Medical Code(s): M25.511 - Pain in right shoulder (5) Acute exacerbation of CHF (congestive heart failure): Status: Acute Qualifiers: Heart failure type: right-sided Qualified Code(s): I50.813 - Acute on chronic right heart failure Category: Medical Code(s): I50.9 - Heart failure, unspecified (6) Aneurysm of splenic artery: Status: Acute Category: Medical Code(s): I72.8 - Aneurysm of other specified arteries (7) CKD (chronic kidney disease) stage 3, GFR 30-59 ml/min: Status: Acute Qualifiers: Chronic kidney disease stage 3 subtype: stage 3a (GFR 45-59) Qualified Code(s): N18.31 - Chronic kidney disease, stage 3a Category: Medical Code(s): N18.30 - Chronic kidney disease, stage 3 unspecified (8) Coronary artery disease: Problem Comment: Patient follows with cardiology on a regular basis. Status: Acute Qualifiers: Coronary Disease-Associated Artery/Lesion type: [place] artery [place] vs. transplanted heart: [place] heart Associated angina: with other forms of angina Qualified Code(s): I25.118 - Atherosclerotic heart disease of [place] coronary artery with other forms of angina pectoris Category: Medical Code(s): I25.10 - Atherosclerotic heart disease of [place] coronary artery without angina pectoris (9) Atrial fibrillation: Problem Comment: Patient was regular rate and rhythm today. Patient is following with cardiology. Status: Acute Qualifiers: Atrial fibrillation type: unspecified chronic Qualified Code(s): I48.20 - Chronic atrial fibrillation, unspecified Category: Medical Code(s): I48.91 - Unspecified atrial fibrillation (10) Diabetes mellitus type 2 in nonobese: Problem Comment: Changes to be made in her insulin last visit seem to work quite well. Will check an A1c today although its only been a month. I do not expect it to have changed that much however in discussions with both Kareen and her daughter it was agreed that we should not seek tight control of her blood sugars at this time. Status: Acute Category: Medical Code(s): E11.9 - Type 2 diabetes mellitus without complications Plan 88-year-old female with PMHx of IDDM, CKD, CAD, Afib, pacemaker in situ, Grade II diastolic dysfunction and left shoulder pain that resolved after cortisone injections presented with right shoulder pain. on arrival patient presented with non toxic appearance, labs work showed increased creatinine above her baseline, with hyperkalemia. No EKG changes, CT of abdomnen concern for ascites and right pleural effusion. Patient received bolus in the ER. Subsequently received diuresis. Kidney function remains abnormal this morning on labs. Cardiology consulted and assisting with care. Continues to require inpatient management for monitoring of improvement in kidney function. Unable to inject right shoulder today as she is on triple therapy with aspirin, Plavix, and Xarelto. Has appointment later this week with her PCP. Continue holding Xarelto. Kidney function better today. Monitor for 24 hours. Making adequate urine however. Problems addressed as follows: -Acute on chronic kidney injury, prerenal likely secondary to NSAID treatment for right shoulder pain: Hyperkalemia: Potassium normal at 4.4. Magnesium 2.0. BUN 64 and creatinine 1.9 on morning labs. Repeat BMP this afternoon. Repeat CMP, CBC, magnesium ordered for the morning. Avoiding NSAIDs. Chart review shows she received multiple doses of Toradol over the past few days as IM or IV for her shoulder pain We will administer an additional liter of LR today Tolerating p.o. fluids Intractable right shoulder pain: Continue Tylenol, lidocaine patch. Discussed injection, holding at this time due to triple therapy with aspirin, Plavix, Xarelto. Defer to appointment with PCP later this week - Suspected worsened CHF. right pleural effusion: ascites: Cardiology consulted, discussed case this morning, appreciate their recommendations. Hold Lasix in the setting of THANH ECHO ordered. Last back on 2022 showed grade II diastolic dysfunction with preserved EF Appears euvolemic on exam -Aneurism of the splenic Aa: incidental findings. patient does not c/o abdominal pain. does not seem to be correlated with right shoulder pain. continue monitoring Optimize BP A-fib Hyperlipidemia CAD - continue Plavix 75 mg daily. Discontinue aspirin. Holding Xarelto at this time upcoming joint injection. Resume after injection - Continue bisoprolol 2.5 mg nightly -Continue Jardiance 20 mg daily, continue isosorbide 15 mg daily -Continue Lipitor 40 mg nightly IDDM: accucheck before meal home lantus 15U BID last A1c 8.3. Goal A1c less than 8 sliding scale On Plavix and Xarelto On protonix Full code
[2024-01-26] MEDS: LACTATED RINGERS 1000ML 1,000 ML 125 ML IV (20:40)
[2024-01-26] MEDS: MIRABEGRON 25 MG 25 EACH PO (20:42)
[2024-01-26] MEDS: PANTOPRAZOLE 40MG TABLET 40 MG PO (20:43)
[2024-01-26] MEDS: DOCUSATE SODIUM 100 MG PO (20:43)
[2024-01-26] MEDS: PAT OWN MED ***ATORVASTATIN 40MG 40 MG PO (20:43)
[2024-01-26] MEDS: PAT OWN MED ***LEVOTHYROXINE 50MCG 50 MCG PO (20:44)
[2024-01-26] MEDS: MINERAL OIL ENEMA 133ML 133 ML RC (20:47)
[2024-01-26 21:26] LABS: POC Glucose,Bedside 213 (70-110)
[2024-01-26] MEDS: BISOPROLOL 5 MG 2.5 MG PO (22:17)
[2024-01-27] VITALS: BP 88/55; PULSE 104; PULSE 85; RESP 18; TEMP 36.7; O2SAT 96
[2024-01-27 02:01] VITALS: BP 100/58; PULSE 108
[2024-01-27 04:00] VITALS: BMI 26.2
[2024-01-27 04:10] VITALS: PULSE 99
[2024-01-27 04:18] VITALS: BP 108/52; PULSE 100
[2024-01-27] MEDS: MORPHINE 2MG/ML SYRINGE 2 MG IV ×2 (04:19→08:44)
[2024-01-27 05:52] LABS: POC Glucose,Bedside 71 (70-110)
[2024-01-27 07:32] LABS: Basophils % 0.2 % (0.1-2.0); Eosinophils # 0.1 K/mm3 (0.0-0.4); Eosinophils % 1.4 % (0.1-12.0); Hematocrit 36.2 % (37.0-47.0); Hemoglobin 11.1 g/dL (12.2-16.2); Lymphocytes # 0.9 K/mm3 (0.7-4.5); Lymphocytes % 16.6 % (10-50); Mean Corpuscular HGB Conc 30.6 g/dL (31.8-35.4); Mean Corpuscular Volume 91.8 fl (81-99); Mean Platelet Volume 8.8 fl (7.4-10.4); Monocytes # 0.3 K/mm3 (0.1-1.0); Monocytes % 6.1 % (1.7-9.3); Neutrophils # 4.2 K/mm3 (1.8-7.8); Neutrophils % 75.6 % (37.0-80.0); Platelet Count 106 K/mm3 (142-424); Red Blood Count 3.95 M/mm3 (4.20-5.40); Red Cell Distribution Width 15.7 % (11.5-17.5); White Blood Count 5.5 K/mm3 (4.8-10.8)
[2024-01-27 07:47] VITALS: BP 117/68; PULSE 95; RESP 18; TEMP 36.7; O2SAT 99
[2024-01-27] MEDS: INSULIN GLARGINE 100 UNITS/ML 3ML FLEXPEN 15 UNIT SQ (08:42)
[2024-01-27] MEDS: FLUTICASONE PROP 50MCG NASAL SPRAY 16GM 1 SPRAY NS (08:50)
[2024-01-27] MEDS: PAT OWN MED ***CLOPIDOGREL 75MG 75 MG PO (08:50)
[2024-01-27] MEDS: SERTRALINE 100 MG PO (08:51)
[2024-01-27 08:55] LABS: Chloride 113 mmol/L (98-107); Potassium 4.3 mmoL/L (3.5-5.1); Sodium 142 mmol/L (136-145)
[2024-01-27] MEDS: SENNOSIDES 8.6MG/DOCUSATE 50MG TABLET 1 TAB PO (08:55)
[2024-01-27] MEDS: LORATADINE 10MG TABLET 10 MG PO (08:55)
[2024-01-27 08:58] LABS: Alanine Aminotransferase 35 U/L (12-78); Albumin Level 3.5 g/dl (3.5-5.0); Albumin/Globulin Ratio 1.4 (1.1-1.8); Alkaline Phosphatase 109 U/L (38-126); Anion Gap 11.3 mEq/L (5-15); Aspartate Amino Transferase 38 U/L (14-36); Bilirubin,Total 0.4 mg/dl (0.2-1.3); Blood Urea Nitrogen 52 mg/dl (7-17); Calcium 8.8 mg/dl (8.4-10.2); Carbon Dioxide 22 mmol/L (22.0-30.0); Creatinine Clearance Estimated 27 mL/min (50-200); Estimated Glomerular Filt Rate 31 ml/min (>60); GFR (African American) 37 ML/MIN (>60); Globulin 2.5 g/dL (1.3-3.2); Glucose 66 mg/dl (74-100)
[2024-01-27 09:51] VITALS: BMI 26.2
--- NOTE | 2024-01-27 13:50 | EXP.DC.SUM ---
General Admission date:: 01/24/24 Discharge date: 01/27/24 HPI HPI HPI: This is a 88-year-old female with PMHx of IDDM, CKD, CAD, Afib, pacemaker in situ, Grade II diastolic dysfunction and left shoulder pain that resolved after cortisone injections presented with right shoulder pain. She noted that pain started on Wednesday, no history of trauma. ED evaluation at that time included negative xray. Pain came on suddenly and she had severe pain in her right upper back/shoulder/neck Patient was discharged home with instructions for supportive management after pain had improved with Toradol, Tylenol, and a lidocaine patch. She followed up with her primary care provider as well who noted they were going to send her to physical therapy, MRI, and referred to Ortho. and started pn meloxican. She presents now because the pain is still severe. admitted for further treatment. Hospital Course Hospital Course Hospital Course: 88-year-old female with PMHx of IDDM, CKD, CAD, Afib, pacemaker in situ, Grade II diastolic dysfunction and left shoulder pain that resolved after cortisone injections presented with right shoulder pain. on arrival patient presented with non toxic appearance, labs work showed increased creatinine above her baseline, with hyperkalemia. No EKG changes, CT of abdomnen concern for ascites and right pleural effusion. Patient received bolus in the ER. Subsequently received diuresis. Kidney function remains abnormal this morning on labs. Cardiology consulted and assisting with care. Continues to require inpatient management for monitoring of improvement in kidney function. Unable to inject right shoulder today as she is on triple therapy with aspirin, Plavix, and Xarelto. Has appointment later this week with her PCP. Continue holding Xarelto. Slow improvement in kidney function. Improving by day of discharge. Making adequate urine. Stable to discharge home. Problems addressed as follows: -Acute on chronic kidney injury, prerenal likely secondary to NSAID treatment for right shoulder pain: Hyperkalemia: Presented with elevated creatinine and abnormal electrolytes. Creatinine showed gradual improvement with gentle IV and p.o. fluids. BUN 52 and creatinine 1.6 on morning of discharge. Improved from peak of 2.3. Electrolytes normalized by day of discharge. Recommend avoiding NSAIDs. Would avoid Toradol in the future. Recommend repeat labs in 1 week to monitor for normalization of kidney function. Intractable right shoulder pain: Continue Tylenol, lidocaine patch. Discussed injection, holding at this time due to triple therapy with aspirin, Plavix, Xarelto. Defer to appointment with PCP - Suspected worsened CHF. right pleural effusion: ascites: Cardiology consulted, recommended holding Lasix in setting of THANH. Echo ordered as appears to show preserved ejection fraction. Consistent with previous echo showing diastolic dysfunction. Patient euvolemic during stay. 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 patient does not c/o abdominal pain. Recommend repeat imaging in 3 to 6 months. Optimize BP A-fib Hyperlipidemia CAD - continue Plavix 75 mg daily. Discontinue aspirin. Holding Xarelto at this time upcoming joint injection. Resume after injection. Continue bisoprolol 2.5 mg nightly. Continue Jardiance 20 mg daily, continue isosorbide 15 mg daily. Continue Lipitor 40 mg nightly IDDM: last A1c 8.3. Goal A1c less than 8. Continue home diabetes regimen. Glucose control during admission. Exam Data for Last 24 hours Vital signs and Labs for Last 24 Hours: Temp Pulse Resp BP Pulse Ox O2 Del Method 97.9 F 89 16 106/65 L 98 Room Air 01/26/24 11:22 01/26/24 11:22 01/26/24 11:22 01/26/24 11:22 01/26/24 11:22 01/26/24 11:22 Laboratory Results - last 24 hr 01/25/24 12:14: POC Glucose 188 H 01/25/24 16:35: POC Glucose 190 H 01/25/24 19:18: Sodium 137, Potassium 5.0, Chloride 103, Carbon Dioxide 26, Anion Gap 13.0, BUN 66 H, Creatinine 2.10 H, Estimated Creat Clear 20, Estimated GFR 22 L, Est GFR ( Amer) 27 L, Glucose 257 H D, Calcium 8.9 01/25/24 20:39: POC Glucose 218 H 01/26/24 05:42: WBC 5.7, RBC 3.83 L, Hgb 10.8 L, Hct 34.0 L, MCV 88.8, MCH 28.3, MCHC 31.8, RDW 15.8, Plt Count 149, MPV 7.9, Neut % (Auto) 64.8, Lymph % (Auto) 28.4, [place] % (Auto) 4.9, Eos % (Auto) 1.3, Baso % (Auto) 0.6, Neut # (Auto) 3.7, Lymph # (Auto) 1.6, Winston # (Auto) 0.3, Eos # (Auto) 0.1, Baso # (Auto) 0.0, Sodium 141, Potassium 4.4, Chloride 107, Carbon Dioxide 28, Anion Gap 10.4, BUN 64 H, Creatinine 1.90 H, Estimated Creat Clear 22, Estimated GFR 25 L, Est GFR ( Amer) 30 L, Glucose 79 D, Calcium 8.9, Magnesium 2.0, Total Bilirubin 0.4, AST 46 H D, ALT 43, Alkaline Phosphatase 111, Total Protein 5.8 L, Albumin 3.3 L, Globulin 2.5, Albumin/Globulin Ratio 1.3 01/26/24 06:36: POC Glucose 78 01/26/24 08:00: POC Glucose 110 01/26/24 11:17: POC Glucose 125 H I & O for Last 24 hours: Intake & Output 01/23/24 01/24/24 01/25/24 01/26/24 23:59 23:59 23:59 23:59 Intake Total 1170 / 1170 1330 / 1330 Output Total 1550 / 1550 800 / 800 Balance -380 / -380 530 / 530 Weight 64.365 kg 64.365 kg 66.406 kg Constitutional Constitutional: no acute distress, average body habitus, chronically ill appearing and cooperative *Routine HEENT Exam Head: Present normocephalic Eye: Present EOMI and PERRL ENT: Present mucous membranes moist Comments: nystagmus *Routine Neck Exam Neck: Present supple; Absent lymphadenopathy *Routine Respiratory Exam Respiratory: Present CTA bilaterally; Absent rhonchi, wheezes or crackles *Routine Cardiovascular Exam Cardiovascular: Present RRR *Routine Abdominal Exam Abdominal: Present soft, normoactive bowel sounds and distended (mild); Absent tenderness *Routine Rectal Exam Patient deferred: visual exam *Routine Exam Patient deferred: external exam *Routine Extremities Exam Extremities: Absent cyanosis, clubbing or edema Comments: right shoulder pain with Movement *Routine Skin Exam Skin: Present warm; Absent rash *Routine Neurological Exam Neurological: Present alert, oriented X3 and moving all extremities; Absent altered mental status Results Data Completed and Pending Labs on day of discharge: Labs from last 24 hours 01/26/24 01/26/2401/25/24 11:17 08:00 06:36 WBC RBC Hgb Hct MCV MCH MCHC RDW Plt Count MPV Neut % (Auto) Lymph % (Auto) Winston % (Auto) Eos % (Auto) Baso % (Auto) Neut # (Auto) Lymph # (Auto) Winston # (Auto) Eos # (Auto) Baso # (Auto) Sodium Potassium Chloride Carbon Dioxide Anion Gap BUN Creatinine Estimated Creat Clear Estimated GFR Est GFR ( Amer) Glucose POC Glucose 125 H 110 78 Calcium Magnesium Total Bilirubin AST ALT Alkaline Phosphatase Total Protein Albumin Globulin Albumin/Globulin Ratio 01/26/24 01/25/24 01/25/24 05:42 20:39 19:18 WBC 5.7 RBC 3.83 L Hgb 10.8 L Hct 34.0 L MCV 88.8 MCH 28.3 MCHC 31.8 RDW 15.8 Plt Count 149 MPV 7.9 Neut % (Auto) 64.8 Lymph % (Auto) 28.4 Winston % (Auto) 4.9 Eos % (Auto) 1.3 Baso % (Auto) 0.6 Neut # (Auto) 3.7 Lymph # (Auto) 1.6 Winston # (Auto) 0.3 Eos # (Auto) 0.1 Baso # (Auto) 0.0 Sodium 141 137 Potassium 4.4 5.0 Chloride 107 103 Carbon Dioxide 28 26 Anion Gap 10.4 13.0 BUN 64 H 66 H Creatinine 1.90 H 2.10 H Estimated Creat Clear 22 20 Estimated GFR 25 L 22 L Est GFR ( Amer) 30 L 27 L Glucose 79 D 257 H D POC Glucose 218 H Calcium 8.9 8.9 Magnesium 2.0 Total Bilirubin 0.4 AST 46 H D ALT 43 Alkaline Phosphatase 111 Total Protein 5.8 L Albumin 3.3 L Globulin 2.5 Albumin/Globulin Ratio 1.3 01/25/24 01/25/24 16:35 12:14 WBC RBC Hgb Hct MCV MCH MCHC RDW Plt Count MPV Neut % (Auto) Lymph % (Auto) Winston % (Auto) Eos % (Auto) Baso % (Auto) Neut # (Auto) Lymph # (Auto) Winston # (Auto) Eos # (Auto) Baso # (Auto) Sodium Potassium Chloride Carbon Dioxide Anion Gap BUN Creatinine Estimated Creat Clear Estimated GFR Est GFR ( Amer) Glucose POC Glucose 190 H 188 H Calcium Magnesium Total Bilirubin AST ALT Alkaline Phosphatase Total Protein Albumin Globulin Albumin/Globulin Ratio DS: Diagnosis Discharge Diagnosis (1) Right shoulder pain: Status: Acute Code(s): M25.511 - Pain in right shoulder Qualifiers: Chronicity: acute Qualified Code(s): M25.511 - Pain in right shoulder (2) THANH (acute kidney injury): Status: Acute Code(s): N17.9 - Acute kidney failure, unspecified (3) Acute hyperkalemia: Status: Acute Code(s): E87.5 - Hyperkalemia (4) Pleural effusion: Status: Acute Code(s): J90 - Pleural effusion, not elsewhere classified (5) Acute exacerbation of CHF (congestive heart failure): Status: Acute Code(s): I50.9 - Heart failure, unspecified Qualifiers: Heart failure type: right-sided Qualified Code(s): I50.813 - Acute on chronic right heart failure (6) Aneurysm of splenic artery: Status: Acute Code(s): I72.8 - Aneurysm of other specified arteries (7) CKD (chronic kidney disease) stage 3, GFR 30-59 ml/min: Status: Acute Code(s): N18.30 - Chronic kidney disease, stage 3 unspecified Qualifiers: Chronic kidney disease stage 3 subtype: stage 3a (GFR 45-59) Qualified Code(s): N18.31 - Chronic kidney disease, stage 3a (8) Coronary artery disease: Status: Acute Code(s): I25.10 - Atherosclerotic heart disease of [place] coronary artery without angina pectoris Qualifiers: Associated angina: with other forms of angina Coronary Disease-Associated Artery/Lesion type: [place] artery [place] vs. transplanted heart: [place] heart Qualified Code(s): I25.118 - Atherosclerotic heart disease of [place] coronary artery with other forms of angina pectoris Problem details: Patient follows with cardiology on a regular basis. (9) Atrial fibrillation: Status: Acute Code(s): I48.91 - Unspecified atrial fibrillation Qualifiers: Atrial fibrillation type: unspecified chronic Qualified Code(s): I48.20 - Chronic atrial fibrillation, unspecified Problem details: Patient was regular rate and rhythm today. Patient is following with cardiology. (10) Diabetes mellitus type 2 in nonobese: Status: Acute Code(s): E11.9 - Type 2 diabetes mellitus without complications Problem details: Changes to be made in her insulin last visit seem to work quite well. Will check an A1c today although its only been a month. I do not expect it to have changed that much however in discussions with both Kareen and her daughter it was agreed that we should not seek tight control of her blood sugars at this time. Meds Home Medications and Allergies Home Medications Medication Instructions Recorded Confirmed Type cyanocobalamin (vitamin B-12) 2,500 mcg sublingual BID 08/18/21 01/27/24 History 2,500 mcg sublingual tablet multivitamin-ferrous 1 each PO DAILY Supplement 08/18/21 01/27/24 History fumarate-folic acid 18 mg-400 mcg tablet mirabegron 25 mg tablet,extended 25 mg PO HS 09/23/23 01/27/24 History release 24 hr (Myrbetriq) ondansetron 4 mg disintegrating 4 mg PO Q6H PRN Nausea And 10/06/23 01/27/24 Rx tablet Vomiting #30 tabs ferrous gluconate 324 mg (38 mg 324 mg PO DAILY 60 days #60 tabs 11/08/23 01/27/24 Rx iron) tablet flash glucose sensor (FreeStyle #2 ea 12/06/23 01/27/24 Rx Kai 14 Day Sensor kit) nitroglycerin 0.4 mg sublingual 0.4 mg sublingual Q5M PRN chest 12/20/23 01/27/24 Rx tablet pain #30 tabs insulin glargine 100 unit/mL (3 15 unit (0.15 mL) SQ BID 60 days 12/24/23 01/27/24 Rx mL) subcutaneous pen (Lantus #18 mL Solostar U-100 Insulin) omeprazole 40 mg capsule,delayed 40 mg PO DAILY Acid Reflux #90 caps 01/13/24 01/27/24 Rx release sertraline 100 mg tablet 100 mg PO DAILY depressed #90 tabs 01/14/24 01/27/24 Rx atorvastatin 40 mg tablet 40 mg PO HS 01/24/24 01/27/24 History bisoprolol fumarate 5 mg tablet 2.5 mg PO HS 01/24/24 01/27/24 History cetirizine 10 mg tablet 10 mg PO HS 01/24/24 01/27/24 History clopidogrel 75 mg tablet 75 mg PO DAILY 01/24/24 01/27/24 History fluticasone propionate 50 1 spray intranasal DAILY 01/24/24 01/27/24 History mcg/actuation nasal spray,suspension levothyroxine 50 mcg tablet 50 mcg PO HS 01/24/24 01/27/24 History rivaroxaban 15 mg tablet (Xarelto) 15 mg PO HS 01/24/24 01/27/24 History verapamil 120 mg 24 hr 120 mg PO HS 01/24/24 01/27/24 History capsule,extended release empagliflozin 10 mg tablet 20 mg PO DAILY 01/25/24 01/27/24 History (Jardiance) isosorbide mononitrate 30 mg 15 mg PO DAILY 01/25/24 01/27/24 History tablet,extended release 24 hr lidocaine 5 % topical patch 1 patch topical Q24H 30 days #30 ea 01/26/24 01/27/24 Rx sennosides 8.6 mg-docusate sodium 1 tab PO BID PRN Constipation 10 01/26/24 01/27/24 Rx 50 mg tablet (Stimulant Laxative days #20 tabs Plus) docusate sodium 100 mg capsule 100 mg PO DAILY 01/27/24 01/27/24 History meloxicam 7.5 mg tablet 7.5 mg PO DAILY 01/27/24 01/27/24 History New Prescriptions to Start Prescriptions: Armando Rodriguez sennosides-docusate sodium [Stimulant Laxative Plus] Armando Greer Allergies Allergy/AdvReac Type Severity Reaction Status Date / Time methylprednisolone Allergy Mild Elevated Verified 01/27/24 13:26 glucose Discharge Plan Disposition Patient Disposition: Home Health Service Condition: Fair Discharge Order Discharge Orders: Discharge Order (Routine); Ordered 01/27/24 Ordered By: Armando Greer Follow up Plan Follow up with: Miguel Diamond MD [Referring] - 05/04/24 2:00 pm Richard Gutiérrez DO [Primary Care Provider] - 01/27/24 1:15 pm Prescriptions/Medication Reconciliation: New lidocaine 5 % Adhesive Patch,Medicated 1 patch topical Q24H 30 Days Qty: 30 0RF sennosides-docusate sodium [Stimulant Laxative Plus] 8.6-50 mg Tablet 1 tab PO BID PRN (Reason: Constipation) 10 Days Qty: 20 0RF Continued nitroglycerin 0.4 mg tablet, sublingual 0.4 mg sublingual Q5M PRN (Reason: chest pain) Qty: 30 3RF Rx Instructions: do not exceed 3 doses per episode insulin glargine [Lantus Solostar U-100 Insulin] 100 unit/mL (3 mL) insulin pen 15 unit SQ BID 60 Days Qty: 18 4RF ondansetron 4 mg tablet,disintegrating 4 mg PO Q6H PRN (Reason: Nausea And Vomiting) Qty: 30 0RF ferrous gluconate 324 mg (38 mg iron) tablet 324 mg PO DAILY 60 Days Qty: 60 2RF omeprazole 40 mg capsule,delayed release(DR/EC) 40 mg PO DAILY Qty: 90 0RF sertraline 100 mg tablet 100 mg PO DAILY Qty: 90 0RF cyanocobalamin (vitamin B-12) 2,500 MCG tablet, sublingual 2,500 mcg sublingual BID [id number] acid 1 EACH tablet 1 each PO DAILY cetirizine 10 mg Tablet 10 mg PO HS atorvastatin 40 mg tablet 40 mg PO HS Rx Instructions: TAKE ONE TABLET BY MOUTH EVERY DAY bisoprolol fumarate 5 mg tablet 2.5 mg PO HS levothyroxine 50 mcg tablet 50 mcg PO HS Rx Instructions: PATIENT TAKES AT BEDTIME AT HOME. fluticasone propionate 50 mcg/actuation spray,suspension 1 spray intranasal DAILY Rx Instructions: instill 1 SPRAY IN EACH NOSTRIL DAILY FOR ALLERGY symptoms verapamil 120 mg capsule,ext rel. pellets 24 hr 120 mg PO HS clopidogrel 75 mg tablet 75 mg PO DAILY Rx Instructions: TAKE ONE TABLET BY MOUTH EVERY DAY isosorbide mononitrate 30 mg tablet extended release 24 hr 15 mg PO DAILY Patient Comments: TAKE 1/2 TABLET BY MOUTH EVERY DAY FOR CHEST pain Jardiance 10 mg tablet 20 mg PO DAILY Myrbetriq 25 mg tablet extended release 24 hr 25 mg PO HS Held Xarelto 15 mg tablet 15 mg PO HS Hold Instructions: resume after shoulder injection Rx Instructions: TAKE ONE TABLET BY MOUTH EVERY EVENING --TAKE WITH FOOD-- Discontinued furosemide 20 mg tablet 20 mg PO Q OTHER DAY Qty: 30 4RF docusate sodium 100 mg capsule 100 mg PO HS aspirin 81 mg tablet,delayed release (DR/EC) 81 mg PO HS Patient Comments: TAKE ONE TABLET BY MOUTH EVERY DAY AT BEDTIME No Action meloxicam 7.5 mg tablet 7.5 mg PO DAILY Patient Comments: TAKE ONE TABLET BY MOUTH EVERY DAY NEEDED FOR shoulder pain --TAKE WITH FOOD-- docusate sodium 100 mg capsule 100 mg PO DAILY Patient Comments: TAKE ONE CAPSULE BY MOUTH EVERY DAY FOR CONSTIPATION (DME) FreeStyle Kai 14 Day Sensor Kit See Rx Instructions .Route Qty: 2 4RF Rx Instructions: As directed Problem Reconciliation Problems Reviewed?: Yes Patient Discharge Instructions ACTIVITY: Ambulate as tolerated DIET: continue same diet Patient Instructions: Carbohydrate-Counting Diet, DI for Heart Failure, DI for Hyperkalemia, DI for Acute Kidney Injury Providers Primary Care Provider: Richard Gutiérrez Admit Provider: Pauline Bruce Attending Provider: Pauline Bruce
== END 2024-01-27 12:57 | disposition home health service (06) ==
LOC: ER 21:43 → 2ND 21:55
PROVIDERS: Internal Medicine Adolescent Medicine; Nurse Practitioner Family; Admitting Provider Internal Medicine; Emergency Provider Emergency Medicine; PCP Internal Medicine; Visit Provider Internal Medicine
DX: N17.9 Acute kidney failure, unspecified (principal); E87.5 Hyperkalemia; M25.512 Pain in left shoulder; J90 Pleural effusion, not elsewhere classified; I50.813 Acute on chronic right heart failure; I72.8 Aneurysm of other specified arteries; N18.31 Chronic kidney disease, stage 3a; I25.118 Atherosclerotic heart disease of native coronary artery with other forms of angina pectoris; I48.20 Chronic atrial fibrillation, unspecified; M25.511 Pain in right shoulder; D64.9 Anemia, unspecified; E78.2 Mixed hyperlipidemia; Z95.5 Presence of coronary angioplasty implant and graft; Z95.0 Presence of cardiac pacemaker; E11.22 Type 2 diabetes mellitus with diabetic chronic kidney disease; I12.9 Hypertensive chronic kidney disease with stage 1 through stage 4 chronic kidney disease, or unspecified chronic kidney disease; N18.9 Chronic kidney disease, unspecified; M19.90 Unspecified osteoarthritis, unspecified site; I27.20 Pulmonary hypertension, unspecified
CPT/HCPCS: 36415; 71275; 72125; 72128; 74174; 80048; 80053; 81001; 82962; 83690; 83735; 83880; 84484; 85007; 85025; 93005; 93306; 97110; 97116; 97162; 97166; 97530; 99285; G0378; Q9967

== ENCOUNTER 2024-01-29 20:02 | Emergency (ER) | payer MEDICARE, MEDICAID, SELFPAY ==
[2024-01-29 20:04] VITALS: BP 114/78; PULSE 109; RESP 20; TEMP 36.9; O2SAT 98; BMI 27.3
--- NOTE | 2024-01-29 20:21 | ECG_ITS ---
APPROVED REPORT Exam: Resting ECG HR:98 bpm ECG Measurements Heart Rate 98 AXES QRSd 94 QRS 84 QT 348 T -41 QTc 403 Conclusion ATRIAL FIBRILLATION LOW QRS VOLTAGE [QRS DEFLECTION < 0.5/1.0 mV IN LIMB/CHEST LEADS] MINIMAL ST DEPRESSION [0.025+ mV ST DEPRESSION] ABNORMAL QRS-T ANGLE [QRS-T AXIS DIFFERENCE > 60] No significant changes noted from prior EKG Electronically signed by : JENNYFER DICKSON, 01/30/2024 00:02:33
--- NOTE | 2024-01-29 20:21 | XR_ITS ---
PROCEDURE INFORMATION: Exam: XR Chest Exam date and time: 01/29/2024 8:19 PM Age: 88 years old Clinical indication: Shortness of breath; Additional info: R shoulder pain, swelling TECHNIQUE: Imaging protocol: Radiologic exam of the chest. Views: 1 view. COMPARISON: CT ANGIO CHEST PE PROTOCOL 01/24/2024 7:21 PM FINDINGS: Tubes, catheters and devices: Dual lead pacemaker device is identified. Lungs: The lungs are clear. Pleural spaces: There is no evidence for pneumothorax. Heart/Mediastinum: Unremarkable. No cardiomegaly. Bones/joints: Unremarkable. IMPRESSION: 1. The lungs are clear. 2. There is no evidence for pneumothorax.
[2024-01-29 20:30] VITALS: BP 126/84; PULSE 103; RESP 16; O2SAT 98
[2024-01-29 20:45] LABS: Basophils # 0.1 K/mm3 (0-0.2); Basophils % 0.9 % (0.1-2.0); Eosinophils # 0.2 K/mm3 (0.0-0.4); Eosinophils % 2.9 % (0.1-12.0); Hematocrit 33.7 % (37.0-47.0); Hemoglobin 10.8 g/dL (12.2-16.2); Lymphocytes # 1.3 K/mm3 (0.7-4.5); Lymphocytes % 21.6 % (10-50); Mean Corpuscular Hemoglobin 28.7 pg (27.0-31.2); Mean Corpuscular Volume 89.9 fl (81-99); Mean Platelet Volume 8.4 fl (7.4-10.4); Monocytes # 0.3 K/mm3 (0.1-1.0); Monocytes % 5.1 % (1.7-9.3); Neutrophils # 4.1 K/mm3 (1.8-7.8); Neutrophils % 69.4 % (37.0-80.0); Platelet Count 163 K/mm3 (142-424); Red Blood Count 3.75 M/mm3 (4.20-5.40); Red Cell Distribution Width 15.6 % (11.5-17.5); White Blood Count 5.9 K/mm3 (4.8-10.8)
[2024-01-29 20:46] LABS: Chloride 107 mmol/L (98-107); Potassium 4.8 mmoL/L (3.5-5.1); Sodium 137 mmol/L (136-145)
[2024-01-29 20:49] LABS: Alanine Aminotransferase 28 U/L (12-78); Albumin Level 3.5 g/dl (3.5-5.0); Albumin/Globulin Ratio 1.4 (1.1-1.8); Alkaline Phosphatase 113 U/L (38-126); Anion Gap 9.8 mEq/L (5-15); Aspartate Amino Transferase 32 U/L (14-36); Bilirubin,Total 0.4 mg/dl (0.2-1.3); Blood Urea Nitrogen 42 mg/dl (7-17); Calcium 8.8 mg/dl (8.4-10.2); Carbon Dioxide 25 mmol/L (22.0-30.0); Creatinine Clearance Estimated 30 mL/min (50-200); Estimated Glomerular Filt Rate 33 ml/min (>60); GFR (African American) 40 ML/MIN (>60); Globulin 2.5 g/dL (1.3-3.2); Glucose 193 mg/dl (74-100)
[2024-01-29 20:59] LABS: NT Pro Brain Natriuretic Pep. 4250 pg/mL (0-450)
[2024-01-29 21:00] VITALS: BP 110/74; PULSE 88; RESP 14; O2SAT 99
--- NOTE | 2024-01-29 21:01 | ED_ITS ---
Discharge Plan Disposition Patient Disposition: Home, Self-Care Condition: Good Prescriptions Prescriptions: No Action meloxicam 7.5 mg tablet 7.5 mg PO DAILY Patient Comments: TAKE ONE TABLET BY MOUTH EVERY DAY NEEDED FOR shoulder pain --TAKE WITH FOOD-- docusate sodium 100 mg capsule 100 mg PO DAILY Patient Comments: TAKE ONE CAPSULE BY MOUTH EVERY DAY FOR CONSTIPATION nitroglycerin 0.4 mg tablet, sublingual 0.4 mg sublingual Q5M PRN (Reason: chest pain) Qty: 30 3RF Rx Instructions: do not exceed 3 doses per episode insulin glargine [Lantus Solostar U-100 Insulin] 100 unit/mL (3 mL) insulin pen 15 unit SQ BID 60 Days Qty: 18 4RF ondansetron 4 mg tablet,disintegrating 4 mg PO Q6H PRN (Reason: Nausea And Vomiting) Qty: 30 0RF ferrous gluconate 324 mg (38 mg iron) tablet 324 mg PO DAILY 60 Days Qty: 60 2RF (DME) FreeStyle Kai 14 Day Sensor Kit See Rx Instructions .Route Qty: 2 4RF Rx Instructions: As directed omeprazole 40 mg capsule,delayed release(DR/EC) 40 mg PO DAILY Qty: 90 0RF sertraline 100 mg tablet 100 mg PO DAILY Qty: 90 0RF cyanocobalamin (vitamin B-12) 2,500 MCG tablet, sublingual 2,500 mcg sublingual BID [id number] acid 1 EACH tablet 1 each PO DAILY cetirizine 10 mg Tablet 10 mg PO HS atorvastatin 40 mg tablet 40 mg PO HS Rx Instructions: TAKE ONE TABLET BY MOUTH EVERY DAY bisoprolol fumarate 5 mg tablet 2.5 mg PO HS levothyroxine 50 mcg tablet 50 mcg PO HS Rx Instructions: PATIENT TAKES AT BEDTIME AT HOME. fluticasone propionate 50 mcg/actuation spray,suspension 1 spray intranasal DAILY Rx Instructions: instill 1 SPRAY IN EACH NOSTRIL DAILY FOR ALLERGY symptoms verapamil 120 mg capsule,ext rel. pellets 24 hr 120 mg PO HS Xarelto 15 mg tablet 15 mg PO HS Hold Instructions: resume after shoulder injection Rx Instructions: TAKE ONE TABLET BY MOUTH EVERY EVENING --TAKE WITH FOOD-- clopidogrel 75 mg tablet 75 mg PO DAILY Rx Instructions: TAKE ONE TABLET BY MOUTH EVERY DAY isosorbide mononitrate 30 mg tablet extended release 24 hr 15 mg PO DAILY Patient Comments: TAKE 1/2 TABLET BY MOUTH EVERY DAY FOR CHEST pain Jardiance 10 mg tablet 20 mg PO DAILY lidocaine 5 % Adhesive Patch,Medicated 1 patch topical Q24H 30 Days Qty: 30 0RF sennosides-docusate sodium [Stimulant Laxative Plus] 8.6-50 mg Tablet 1 tab PO BID PRN (Reason: Constipation) 10 Days Qty: 20 0RF Myrbetriq 25 mg tablet extended release 24 hr 25 mg PO HS Referrals Follow up/Referrals: Richard Gutiérrez DO [Primary Care Provider] - See instructions Activity Restrictions/Add. Instructions Additional Instructions/Restrictions: You were evaluated in the emergency department today. Continue taking your fluid pill at home as instructed by cardiology. Continue taking Tylenol and using her lidocaine patches at home. Follow-up closely with your primary care provider as well as your microbiology lab manager and orthopedist. Return to the emergency department for new or worsening symptoms. Clinical Impressions Clinical Impression: Bilateral leg edema, Chronic pain in right shoulder Instructions Patient Instructions: DI for Shoulder Pain, DI for Peripheral Edema -- Bilateral Discharge ED Provider: Miley Mccallum General Adult HPI General Chief complaint: Extremity Problem,Nontraumatic Stated complaint: Swelling and fluid in feet and legs Time Seen by Provider: 01/29/24 20:08 Mode of Arrival: Wheelchair Source of Information: Patient Limitations: No Limitations Description of Symptoms (Recalled from ER Triage Doc. by RN): 88 F presents from home with her son who reports she was dc from [facility] on . Since she has been home she has noted increased swelling to her BLE up to her abdomen. Her son reports her belly looks like she's . Patient reports chronic pain issues, no fever, chills, chest pain or shortness of breath. Patient has 4+ Edema to BLE and noted swelling to her abdomen. History of Present Illness HPI narrative: This patient is an 88-year-old female with a history of CAD status post stenting, hypertension, hyperlipidemia, atrial fibrillation, CHF, CKD, and recent admission for volume overload and chronic right shoulder pain presenting with concern for continued right shoulder pain, lower extremity edema, and abdominal wall edema. Patient reports that she was discharged home on and was not discharged on any diuretics, as they were holding that because of her poor kidney function. She called her microbiology lab manager and noted that she is having increased welling, so they stated that she should restart her diuresis. She has taken 1 Lasix at home, but she still swollen. She also complains that her right shoulder has still been hurting. She has already received an injection by her primary care provider and is scheduled to follow-up outpatient with orthopedics, but her shoulder is still bothering her. She has had negative x-ray and CT scan of the shoulder thus far in the ED. Related Data Home Medications Medication Instructions Recorded Confirmed cyanocobalamin (vitamin B-12) 2,500 mcg sublingual BID 08/18/21 01/29/24 2,500 mcg sublingual tablet multivitamin-ferrous 1 each PO DAILY Supplement 08/18/21 01/29/24 fumarate-folic acid 18 mg-400 mcg tablet mirabegron 25 mg tablet,extended 25 mg PO HS 09/23/23 01/29/24 release 24 hr (Myrbetriq) atorvastatin 40 mg tablet 40 mg PO HS 01/24/24 01/29/24 bisoprolol fumarate 5 mg tablet 2.5 mg PO HS 01/24/24 01/29/24 cetirizine 10 mg tablet 10 mg PO HS 01/24/24 01/29/24 clopidogrel 75 mg tablet 75 mg PO DAILY 01/24/24 01/29/24 fluticasone propionate 50 1 spray intranasal DAILY 01/24/24 01/29/24 mcg/actuation nasal spray,suspension levothyroxine 50 mcg tablet 50 mcg PO HS 01/24/24 01/29/24 rivaroxaban 15 mg tablet (Xarelto) 15 mg PO HS 01/24/24 01/29/24 verapamil 120 mg 24 hr 120 mg PO HS 01/24/24 01/29/24 capsule,extended release empagliflozin 10 mg tablet 20 mg PO DAILY 01/25/24 01/29/24 (Jardiance) isosorbide mononitrate 30 mg 15 mg PO DAILY 01/25/24 01/29/24 tablet,extended release 24 hr docusate sodium 100 mg capsule 100 mg PO DAILY 01/27/24 01/29/24 meloxicam 7.5 mg tablet 7.5 mg PO DAILY 01/27/24 01/29/24 Previous Rx's Medication Instructions Recorded ondansetron 4 mg disintegrating 4 mg PO Q6H PRN Nausea And 10/06/23 tablet Vomiting #30 tabs ferrous gluconate 324 mg (38 mg 324 mg PO DAILY 60 days #60 tabs 11/08/23 iron) tablet flash glucose sensor (FreeStyle #2 ea 12/06/23 Kai 14 Day Sensor kit) nitroglycerin 0.4 mg sublingual 0.4 mg sublingual Q5M PRN chest 12/20/23 tablet pain #30 tabs insulin glargine 100 unit/mL (3 15 unit (0.15 mL) SQ BID 60 days 12/24/23 mL) subcutaneous pen (Lantus #18 mL Solostar U-100 Insulin) omeprazole 40 mg capsule,delayed 40 mg PO DAILY Acid Reflux #90 caps 01/13/24 release sertraline 100 mg tablet 100 mg PO DAILY depressed #90 tabs 01/14/24 lidocaine 5 % topical patch 1 patch topical Q24H 30 days #30 ea 01/26/24 sennosides 8.6 mg-docusate sodium 1 tab PO BID PRN Constipation 10 01/26/24 50 mg tablet (Stimulant Laxative days #20 tabs Plus) Allergies Allergy/AdvReac Type Severity Reaction Status Date / Time methylprednisolone Allergy Mild Elevated Verified 01/27/24 13:26 glucose [facility] Disclaimer: The information contained in this section may have been updated after the patient was seen, as this information can be updated by other users. Medical History CKD (chronic kidney disease) stage 3, GFR 30-59 ml/min Seasonal allergies Hyperlipemia Hypertension Atypical angina Abnormal cardiovascular stress test Nausea vomiting and diarrhea Atypical chest pain Fatigue Gastroenteritis Arthritis History of anemia History of gastroesophageal reflux (GERD) Diabetes mellitus, type 2 History of cataract Arrhythmia History of pacemaker History of left heart catheterization (LHC) Gastritis Acute blood loss anemia (ABLA) Hyperglycemia Angina at rest Hyperglycemia without ketosis PAF (paroxysmal atrial fibrillation) Acute kidney injury DKA (diabetic ketoacidosis) Dyspnea Lactose intolerance Strep throat Pancytopenia 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 Patient is following with cardiology. Hyperkalemia Renal insufficiency Urinary tract infection Anemia We need to check a CBC at her next visit. Acute renal insufficiency Cardiogenic shock Diabetes Pre-syncope Contusion of sternum Fatigue SOB (shortness of breath) on exertion Leg pain, bilateral HLD (hyperlipidemia) Will continue with current therapy. Angina pectoris Cardiac pacemaker in situ will check labs SSS (sick sinus syndrome) HTN (hypertension) Pulmonary HTN Chest wall pain following surgery Report soreness r/t post op pacemaker Coronary artery disease Patient follows with cardiology on a regular basis. Surgical History History of esophagogastroduodenoscopy (EGD) Hx of tonsillectomy History of colonoscopy History of hysterectomy History of appendectomy History of cholecystectomy Family History Other No significant family history Social History Smoking Status: Never smoker second hand exposure: No alcohol intake: never substance use type: denies use current occupational status: disabled Travel in the last 8 weeks: Inside the [place] household members: family housing: house caffeine: No ROS Obtained: Yes All systems reviewed & no additional complaints except as documented Physical Exam General General appearance: alert and in no apparent distress Head Head exam: atraumatic and normocephalic Eye Eye exam: Present normal appearance, PERRL and EOMI ENT ENT exam: Present normal exam, normal oropharynx, mucous membranes moist and normal external ear exam Neck Neck exam: Present normal inspection, full ROM and trachea midline; Absent tenderness Chest Chest inspection: Present normal inspection and symmetric chest wall rise; Absent tenderness Respiratory Respiratory exam: Present normal lung sounds bilaterally; Absent respiratory distress, wheezes, stridor or accessory muscle use Cardiovascular Cardiovascular exam: Present regular rate and normal rhythm Abdominal Exam Abdominal exam: Present soft; Absent distention, tenderness or guarding Extremities Exam Extremities exam: Present full ROM, normal capillary refill and edema; Absent tenderness Back Exam Back exam: Present normal inspection and full ROM; Absent tenderness Neurological Exam Neurological exam: Present alert, oriented X3, CN II-XII intact and normal gait; Absent motor sensory deficit Psychiatric Psychiatric exam: Present normal affect and normal mood Skin Skin exam: Present warm and dry Medical Decision Making Medical Records Medical records reviewed: Yes I reviewed the patient's medical records. Thomas Inquiry Pt receiving controlled substance: No Vital Signs: 01/29/24 20:04 01/29/24 20:30 01/29/24 21:00 Temperature 98.4 F Temperature Source Oral Pulse Rate 103 H 88 Pulse Rate [Apical] 109 H Respiratory Rate 20 16 14 Blood Pressure 126/84 110/74 Blood Pressure [Right Arm] 114/78 Blood Pressure Mean 97 Blood Pressure Mean [Right Arm] 90 Blood Pressure Source Blood Pressure Source [Right Arm] Automatic Cuff Blood Pressure Position Blood Pressure Position [Right Arm] Sitting 02 Sat by Pulse Oximetry 98 98 99 Oxygen Delivery Method Room Air Room Air Room Air 01/29/24 21:57 Temperature 98.3 F Temperature Source Oral Pulse Rate 92 H Pulse Rate [Apical] Respiratory Rate 16 Blood Pressure 111/74 Blood Pressure [Right Arm] Blood Pressure Mean Blood Pressure Mean [Right Arm] Blood Pressure Source Automatic Cuff Blood Pressure Source [Right Arm] Blood Pressure Position Sitting Blood Pressure Position [Right Arm] 02 Sat by Pulse Oximetry Oxygen Delivery Method Room Air Lab Data Lab results reviewed: Yes I reviewed the patient's lab results. Lab Results 01/29/24 20:31: WBC 5.9, RBC 3.75 L, Hgb 10.8 L, Hct 33.7 L, MCV 89.9, MCH 28.7, MCHC 32.0, RDW 15.6, Plt Count 163 D, MPV 8.4, Neut % (Auto) 69.4, Lymph % (Auto) 21.6, White % (Auto) 5.1, Eos % (Auto) 2.9, Baso % (Auto) 0.9, Neut # (Auto) 4.1, Lymph # (Auto) 1.3, White # (Auto) 0.3, Eos # (Auto) 0.2, Baso # (Auto) 0.1, Sodium 137, Potassium 4.8, Chloride 107, Carbon Dioxide 25, Anion Gap 9.8, BUN 42 H, Creatinine 1.50 H, Estimated Creat Clear 30, Estimated GFR 33 L, Est GFR ( Amer) 40 L, Glucose 193 H, Calcium 8.8, Total Bilirubin 0.4, AST 32, ALT 28, Alkaline Phosphatase 113, NT-Pro-B Natriuret Pep 4250 H, Total Protein 6.0 L, Albumin 3.5, Globulin 2.5, Albumin/Globulin Ratio 1.4 01/29/24 20:31 01/29/24 20:31 Orders (Tests/Meds): ED MEDICATIONS Discontinued Medications Generic Name Dose Route Start Last Admin Trade Name Javierq PRN Reason Stop Dose Admin Oxycodone HCl 5 mg 01/29/24 21:39 01/29/24 21:43 Oxycodone 5mg Immediate Release Tablet PO 01/29/24 21:40 5 mg ONCE ONE Administration ORDERS Category Date Time Status XR chest portable Stat Exams 01/29/24 20:21 Completed Complete Blood Count Auto Diff Stat Lab 01/29/24 20:31 Completed Comprehensive Metabolic Panel Stat Lab 01/29/24 20:31 Completed NT Pro Brain Natriuretic Pep. Stat Lab 01/29/24 20:31 Completed ECG Data Tracing #1: I reviewed this ECG and interpreted as documented below: Atrial fibrillation with a ventricular rate of [address] changes concerning for ischemia. PVC noted. No significant changes noted from prior EKG. ECG initial impression date: 01/29/24 ECG initial impression time: 20:36 Medical Decision Narrative: In summary, this patient is a 88-year-old female presenting to the Emergency Department for evaluation of chronic right shoulder pain as well as bilateral lower extremity edema. Differential diagnoses considered include but are not limited to acute on chronic CHF, THANH, shoulder osteoarthritis, worsening pleural effusion. Ruling out the most morbid conditions drove assessment. I reviewed patient's past medical records and noted previous admission as per HPI. I actually admitted her at that time. Workup included CBC, CMP, BNP, chest x-ray, EKG. She was given oral oxycodone for symptomatic improvement of her shoulder pain. I independently interpreted x-ray prior to the radiologist read and noted no significant changes noted with no obvious volume overload. Please see their read for final interpretation. Labs were obtained that demonstrated improvement in her kidney function as well as improvement in her BNP.. On reassessment, patient is resting company with reassuring vital signs on cardiac telemetry. She actually is looking better than she was when she was recently admitted, and her labs are much better. Given this, I do not see a reason to admit her in the hospital today. Advised that they continue with close outpatient follow-up and gave strict return precautions. They expressed understanding and agreement. The patient was discharged after all questions were answered with very strict return precautions and instructions for close outpatient follow-up. Critical Care Critical Care Time Critical Care Time: No
[2024-01-29] MEDS: OXYCODONE 5MG IMMEDIATE RELEASE TABLET 5 MG PO (21:43)
[2024-01-29 21:57] VITALS: BP 111/74; PULSE 92; RESP 16; TEMP 36.8; O2SAT 97
== END 2024-01-29 21:57 | disposition home or self-care (01) ==
PROVIDERS: Emergency Provider Emergency Medicine; PCP Internal Medicine
DX: R60.0 Localized edema (principal); M25.511 Pain in right shoulder; G89.29 Other chronic pain; Z95.5 Presence of coronary angioplasty implant and graft; Z79.01 Long term (current) use of anticoagulants; I48.0 Paroxysmal atrial fibrillation; N18.30 Chronic kidney disease, stage 3 unspecified; I11.0 Hypertensive heart disease with heart failure; I50.9 Heart failure, unspecified; K21.9 Gastro-esophageal reflux disease without esophagitis; E11.22 Type 2 diabetes mellitus with diabetic chronic kidney disease; I25.119 Atherosclerotic heart disease of native coronary artery with unspecified angina pectoris; Z79.4 Long term (current) use of insulin; Z79.84 Long term (current) use of oral hypoglycemic drugs
CPT/HCPCS: 71045; 80053; 83880; 85025; 93005; 99284

== ENCOUNTER 2024-02-09 15:44 | Outpatient (CLI) | payer MEDICARE, MEDICAID, SELFPAY ==
[2024-02-09 16:08] LABS: Chloride 103 mmol/L (98-107); Sodium 139 mmol/L (136-145)
[2024-02-09 16:11] LABS: Alanine Aminotransferase 22 U/L (12-78); Albumin Level 3.7 g/dl (3.5-5.0); Albumin/Globulin Ratio 1.5 (1.1-1.8); Alkaline Phosphatase 98 U/L (38-126); Aspartate Amino Transferase 32 U/L (14-36); Bilirubin,Total 0.7 mg/dl (0.2-1.3); Blood Urea Nitrogen 38 mg/dl (7-17); Carbon Dioxide 27 mmol/L (22.0-30.0); Estimated Glomerular Filt Rate 28 ml/min (>60); GFR (African American) 34 ML/MIN (>60); Globulin 2.5 g/dL (1.3-3.2); Total Protein,Serum 6.2 g/dl (6.3-8.2)
[2024-02-09 16:12] LABS: Calcium 8.9 mg/dl (8.4-10.2); Glucose 222 mg/dl (74-100)
[2024-02-09 16:21] LABS: NT Pro Brain Natriuretic Pep. 2720 pg/mL (0-450)
== END 2024-02-09 23:59 | disposition home or self-care (01) ==
LOC: RAD 15:46
PROVIDERS: PCP Internal Medicine; Visit Provider Family Medicine
DX: I50.9 Heart failure, unspecified (principal); R79.89 Other specified abnormal findings of blood chemistry
CPT/HCPCS: 36415; 80053; 83880

== ENCOUNTER 2024-02-11 18:00 | Outpatient (CLI) | payer MEDICARE, MEDICAID, SELFPAY ==
[2024-02-11 18:34] LABS: Basophils % 0.4 % (0.1-2.0); Eosinophils # 0.1 K/mm3 (0.0-0.4); Hematocrit 35.6 % (37.0-47.0); Hemoglobin 10.7 g/dL (12.2-16.2); Lymphocytes % 15.9 % (10-50); Mean Corpuscular Hemoglobin 27.6 pg (27.0-31.2); Mean Corpuscular Volume 92.1 fl (81-99); Monocytes # 0.3 K/mm3 (0.1-1.0); Monocytes % 4.4 % (1.7-9.3); Neutrophils # 5.1 K/mm3 (1.8-7.8); Neutrophils % 77.3 % (37.0-80.0); Platelet Count 143 K/mm3 (142-424); Red Blood Count 3.87 M/mm3 (4.20-5.40); Red Cell Distribution Width 16.5 % (11.5-17.5); White Blood Count 6.6 K/mm3 (4.8-10.8)
[2024-02-11 18:48] LABS: Alanine Aminotransferase 19 U/L (12-78); Albumin/Globulin Ratio 1.5 (1.1-1.8); Alkaline Phosphatase 99 U/L (38-126); Anion Gap 15.6 mEq/L (5-15); Aspartate Amino Transferase 32 U/L (14-36); Bilirubin,Direct 0.3 mg/dl (0.0-0.4); Bilirubin,Indirect 0.4 mg/dL (0.0-0.9); Bilirubin,Total 0.7 mg/dl (0.2-1.3); Bilirubin,Unconjugated 0.4 mg/dL (0.0-1.1); Blood Urea Nitrogen 39 mg/dl (7-17); Calcium 9.1 mg/dl (8.4-10.2); Carbon Dioxide 30 mmol/L (22.0-30.0); Chloride 98 mmol/L (98-107); Estimated Glomerular Filt Rate 31 ml/min (>60); GFR (African American) 37 ML/MIN (>60); Globulin 2.6 g/dL (1.3-3.2); Glucose 133 mg/dl (74-100); Potassium 4.6 mmoL/L (3.5-5.1); Sodium 139 mmol/L (136-145); Total Protein,Serum 6.6 g/dl (6.3-8.2)
[2024-02-11 18:59] LABS: NT Pro Brain Natriuretic Pep. 2390 pg/mL (0-450)
== END 2024-02-11 23:59 | disposition home or self-care (01) ==
LOC: LAB.DROPOF 02-12 09:00
PROVIDERS: PCP Family Medicine; Visit Provider Family Medicine
DX: N18.31 Chronic kidney disease, stage 3a (principal); I50.9 Heart failure, unspecified; I25.10 Atherosclerotic heart disease of native coronary artery without angina pectoris; R06.02 Shortness of breath
CPT/HCPCS: 80053; 80076; 83880; 85025

== ENCOUNTER 2024-02-14 10:09 | Outpatient (CLI) | payer MEDICARE, MEDICAID, SELFPAY ==
--- NOTE | 2024-02-14 10:10 | US_ITS ---
FINAL REPORT CLINICAL HISTORY: ascites COMPARISON: None FINDINGS: Sonographic images of the abdomen were obtained. The liver has a nodular contour and a coarse appearance consistent with cirrhosis. The gallbladder has been surgically resected. Mild ascites is present. The common hepatic duct measures 9 mm, which is likely secondary to post cholecystectomy change. The pancreas is poorly seen secondary to overlying bowel gas. The spleen is at the upper limits of normal measuring 12.7 cm in craniocaudal dimension. The right kidney measures 9.6 in length. The left kidney measures 10.6 in length. There are 2 cysts present in the left kidney, the largest measuring 3.6 cm. There is no evidence of hydronephrosis. The aorta has an unremarkable appearance. Limited images of the inferior vena cava are unremarkable. The portal vein is within normal limits measuring 13 mm in diameter. IMPRESSION: Nodular contour and coarsened appearance of the liver consistent with cirrhosis. Mild ascites. Spleen at the upper limits of normal measuring 12.7 cm. Reviewed, Interpreted and Dictated by Jerod Gutierrez III, MD Transcribed by Ora Brunson Authenticated and . [facility]
== END 2024-02-14 23:59 | disposition home or self-care (01) ==
LOC: RAD 10:10
PROVIDERS: PCP Family Medicine; Visit Provider Family Medicine
DX: R18.8 Other ascites (principal)
CPT/HCPCS: 76700

== ENCOUNTER 2024-02-17 09:59 | Outpatient (CLI) | payer MEDICARE, MEDICAID, SELFPAY | END 2024-02-17 23:59 | disposition home or self-care (01) | LOC: LAB.DROPOF 09:59 | PROVIDERS: PCP Internal Medicine; Visit Provider Internal Medicine | DX: N39.0 Urinary tract infection, site not specified (principal) | CPT/HCPCS: 87086 ==

== ENCOUNTER 2024-03-30 15:02 | Observation (INO) | payer MEDICARE, MEDICAID, SELFPAY ==
[2024-03-30] VITALS (9 sets, daily range): BP systolic 105–125; BP diastolic 67–81; PULSE 88–111; RESP 15–20; TEMP 36.4–36.7; O2SAT 96–100; BMI 25.8; BMI 26.5
--- NOTE | 2024-03-30 15:05 | ED_ITS ---
<Statement entered by Zion Ramos MD - 03/30/24 23:00> I was consulted by the MARIANN, and we discussed the complexity of the problems being addressed. I approved the treatment and management plan for this patient's care in the emergency department, thus performing a substantive portion of the medical decision making. Zion Ramos MD, [place], FACEP Discharge Plan Disposition Patient Disposition: Admitted Condition: Fair Prescriptions Prescriptions: No Action docusate sodium 100 mg capsule 100 mg PO DAILY Patient Comments: TAKE ONE CAPSULE BY MOUTH EVERY DAY FOR CONSTIPATION bumetanide 1 mg tablet 1 mg PO DAILY Qty: 30 2RF (DME) pen needle, diabetic [BD Ultra-Fine Mini Pen Needle] 31 gauge x 3/16 needle See Rx Instructions .ROUTE .MEDSUPPLY Qty: 1200 Patient Comments: USE as directed TWICE DAILY with insulin Rx Instructions: As directed oxycodone 5 mg tablet 2.5 mg PO Q8H PRN (Reason: pain in shoulder) Qty: 30 0RF nitroglycerin 0.4 mg tablet, sublingual 0.4 mg sublingual Q5M PRN (Reason: chest pain) Qty: 30 3RF Rx Instructions: do not exceed 3 doses per episode insulin glargine [Lantus Solostar U-100 Insulin] 100 unit/mL (3 mL) insulin pen 15 unit SQ BID 60 Days Qty: 18 4RF Xarelto 15 mg tablet 15 mg PO HS Qty: 30 3RF Hold Instructions: resume after shoulder injection Rx Instructions: TAKE ONE TABLET BY MOUTH EVERY EVENING --TAKE WITH FOOD-- ondansetron 4 mg tablet,disintegrating See Rx Instructions .ROUTE .COMPLEX Qty: 30 0RF Dose Instruction: DISSOLVE ONE TABLET in MOUTH EVERY 6 HOURS NEEDED FOR NAUSEA AND VOMITING Rx Instructions: DISSOLVE ONE TABLET in MOUTH EVERY 6 HOURS NEEDED FOR NAUSEA AND VOMITING ferrous gluconate 324 mg (38 mg iron) tablet 324 mg PO DAILY 60 Days Qty: 60 2RF (DME) FreeStyle Kai 14 Day Sensor Kit See Rx Instructions .Route Qty: 2 4RF Rx Instructions: As directed omeprazole 40 mg capsule,delayed release(DR/EC) 40 mg PO DAILY Qty: 90 0RF sertraline 100 mg tablet 100 mg PO DAILY Qty: 90 0RF clopidogrel 75 mg tablet See Rx Instructions .ROUTE .COMPLEX Qty: 30 0RF Dose Instruction: TAKE ONE TABLET BY MOUTH EVERY DAY Rx Instructions: TAKE ONE TABLET BY MOUTH EVERY DAY cetirizine 10 mg tablet See Rx Instructions .ROUTE .COMPLEX Qty: 90 0RF Dose Instruction: TAKE ONE TABLET BY MOUTH EVERY DAY AT BEDTIME FOR ALLERGIES Rx Instructions: TAKE ONE TABLET BY MOUTH EVERY DAY AT BEDTIME FOR ALLERGIES Jardiance 10 mg tablet See Rx Instructions .ROUTE .COMPLEX Qty: 60 0RF Dose Instruction: TAKE TWO TABLETS BY MOUTH EVERY DAY FOR heart disease Rx Instructions: TAKE TWO TABLETS BY MOUTH EVERY DAY FOR heart disease atorvastatin 40 mg tablet See Rx Instructions .ROUTE .COMPLEX Qty: 90 0RF Dose Instruction: TAKE ONE TABLET BY MOUTH EVERY DAY Rx Instructions: TAKE ONE TABLET BY MOUTH EVERY DAY (DME) pen needle, diabetic [BD Ultra-Fine Short Pen Needle] 31 gauge x 5/16 needle See Rx Instructions .ROUTE Rx Instructions: As directed or bid No. 5 cyanocobalamin (vitamin B-12) 2,500 MCG tablet, sublingual 2,500 mcg sublingual BID lhnygvqjcehd-ianf-qrdov acid 1 EACH tablet 1 each PO DAILY bisoprolol fumarate 5 mg tablet 2.5 mg PO HS levothyroxine 50 mcg tablet 50 mcg PO HS Rx Instructions: PATIENT TAKES AT BEDTIME AT HOME. fluticasone propionate 50 mcg/actuation spray,suspension 1 spray intranasal DAILY Rx Instructions: instill 1 SPRAY IN EACH NOSTRIL DAILY FOR ALLERGY symptoms verapamil 120 mg capsule,ext rel. pellets 24 hr 120 mg PO HS isosorbide mononitrate 30 mg tablet extended release 24 hr 15 mg PO DAILY Patient Comments: TAKE 1/2 TABLET BY MOUTH EVERY DAY FOR CHEST pain lidocaine 5 % Adhesive Patch,Medicated 1 patch topical Q24H 30 Days Qty: 30 0RF Myrbetriq 25 mg tablet extended release 24 hr 25 mg PO HS Referrals Follow up/Referrals: Richard Gutiérrez DO [Primary Care Provider] - See instructions Clinical Impressions Clinical Impression: Acute on chronic congestive heart failure, Pleural effusion, Abdominal ascites, Anasarca Discharge ED Provider: Zion Ramos General Adult HPI General Chief complaint: Shortness of Breath/Dyspnea Stated complaint: Brock refferal for fluid on stomach Time Seen by Provider: 03/30/24 15:05 History of Present Illness HPI narrative: Patient presents at the behest of her PCP for fluid on my belly . Patient has a working diagnosis of cirrhosis with ascites most recently diagnosed in January of this year because of ascites and anasarca. Patient has had 1 paracentesis with minimal drainage according to the patient. That happened during an admission in January however patient has not been referred to hepatology for further characterization of her liver disease. Last labs done by her PCP were in February. Patient states that she has exercise intolerance, dyspnea on exertion even at rest, orthopnea, and feels like that she cannot breathe at the moment due to how tight my belly is. They called her PCP who told her to come to the emergency department for evaluation. Patient currently denies chest pain fever chills hemoptysis hematochezia melena nausea vomiting diarrhea. She does not know how much she weighs or if she is gaining weight recently. Related Data Home Medications Medication Instructions Recorded Confirmed cyanocobalamin (vitamin B-12) 2,500 mcg sublingual BID 08/18/21 03/01/24 2,500 mcg sublingual tablet multivitamin-ferrous 1 each PO DAILY Supplement 08/18/21 03/01/24 fumarate-folic acid 18 mg-400 mcg tablet mirabegron 25 mg tablet,extended 25 mg PO HS 09/23/23 03/01/24 release 24 hr (Myrbetriq) bisoprolol fumarate 5 mg tablet 2.5 mg PO HS 01/24/24 03/01/24 fluticasone propionate 50 1 spray intranasal DAILY 01/24/24 03/01/24 mcg/actuation nasal spray,suspension levothyroxine 50 mcg tablet 50 mcg PO HS 01/24/24 03/01/24 verapamil 120 mg 24 hr 120 mg PO HS 01/24/24 03/01/24 capsule,extended release isosorbide mononitrate 30 mg 15 mg PO DAILY 01/25/24 03/01/24 tablet,extended release 24 hr docusate sodium 100 mg capsule 100 mg PO DAILY 01/27/24 03/01/24 pen needle, diabetic 31 gauge x 03/17/2402/16 (BD Ultra-Fine Short Pen Needle) pen needle, diabetic 31 gauge x #1,200 ea 03/22/24 03/22/2412/17 (BD Ultra-Fine Mini Pen Needle) Previous Rx's Medication Instructions Recorded ferrous gluconate 324 mg (38 mg 324 mg PO DAILY 60 days #60 tabs 11/08/23 iron) tablet flash glucose sensor (FreeStyle #2 ea 12/06/23 Kai 14 Day Sensor kit) nitroglycerin 0.4 mg sublingual 0.4 mg sublingual Q5M PRN chest 12/20/23 tablet pain #30 tabs insulin glargine 100 unit/mL (3 15 unit (0.15 mL) SQ BID 60 days 12/24/23 mL) subcutaneous pen (Lantus #18 mL Solostar U-100 Insulin) omeprazole 40 mg capsule,delayed 40 mg PO DAILY Acid Reflux #90 caps 01/13/24 release sertraline 100 mg tablet 100 mg PO DAILY depressed #90 tabs 01/14/24 lidocaine 5 % topical patch 1 patch topical Q24H 30 days #30 ea 01/26/24 rivaroxaban 15 mg tablet (Xarelto) 15 mg PO HS #30 tabs 02/11/24 clopidogrel 75 mg tablet See Rx Instructions .Route 02/14/24 .COMPLEX #30 tabs bumetanide 1 mg tablet 1 mg PO DAILY #30 tabs 02/16/24 ondansetron 4 mg disintegrating See Rx Instructions .Route 03/01/24 tablet .COMPLEX #30 tabs cetirizine 10 mg tablet See Rx Instructions .Route 03/02/24 .COMPLEX #90 tabs empagliflozin 10 mg tablet See Rx Instructions .Route 03/06/24 (Jardiance) .COMPLEX #60 tabs atorvastatin 40 mg tablet See Rx Instructions .Route 03/07/24 .COMPLEX #90 tabs oxycodone 5 mg tablet 2.5 mg (1/2 x 5 mg) PO Q8H PRN 03/22/24 pain in shoulder #30 tabs Allergies Allergy/AdvReac Type Severity Reaction Status Date / Time methylprednisolone Allergy Mild Elevated Verified 03/22/24 13:17 glucose [facility] Disclaimer: The information contained in this section may have been updated after the patient was seen, as this information can be updated by other users. Medical History Seasonal allergies Hyperlipemia Hypertension Atypical angina Abnormal cardiovascular stress test Nausea vomiting and diarrhea Atypical chest pain Fatigue Gastroenteritis Arthritis History of anemia History of gastroesophageal reflux (GERD) Diabetes mellitus, type 2 History of cataract Arrhythmia History of pacemaker History of left heart catheterization (LHC) Gastritis Acute blood loss anemia (ABLA) Hyperglycemia Angina at rest Hyperglycemia without ketosis PAF (paroxysmal atrial fibrillation) Acute kidney injury DKA (diabetic ketoacidosis) Dyspnea Lactose intolerance Strep throat Pancytopenia 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 Patient is following with cardiology. Hyperkalemia Renal insufficiency Urinary tract infection Anemia We need to check a CBC at her next visit. Acute renal insufficiency Cardiogenic shock Diabetes Pre-syncope Contusion of sternum Fatigue SOB (shortness of breath) on exertion Leg pain, bilateral HLD (hyperlipidemia) Will continue with current therapy for now. Angina pectoris Cardiac pacemaker in situ will check labs SSS (sick sinus syndrome) HTN (hypertension) Pulmonary HTN Chest wall pain following surgery Report soreness r/t post op pacemaker Coronary artery disease Patient follows with cardiology on a regular basis. Surgical History History of esophagogastroduodenoscopy (EGD) Hx of tonsillectomy History of colonoscopy History of hysterectomy History of appendectomy History of cholecystectomy Family History Other No significant family history Social History Smoking Status: Never smoker second hand exposure: No alcohol intake: never substance use type: denies use current occupational status: disabled Travel in the last 8 weeks: Inside the [place] household members: family housing: house caffeine: No ROS Obtained: Yes Systems reviewed as appropriate & no additional complaints except as documented Physical Exam General General appearance: alert and in no apparent distress Respiratory Respiratory exam: Absent normal lung sounds bilaterally (Diminished breath sounds in the right base), respiratory distress, wheezes, stridor or accessory muscle use Cardiovascular Cardiovascular exam: Present tachycardia and +S2 Abdominal Exam Abdominal exam: Present distention (Patient's abdomen is taut and tender to palpation diffusely but no rebound or guarding or rigidity. Bowel sounds are normal active.), tenderness and normal bowel sounds; Absent guarding, rebound or rigidity Extremities Exam Extremities exam: Present normal inspection, full ROM and edema (Trace bilateral lower extremity edema) Neurological Exam Neurological exam: Present alert, oriented X3 and CN II-XII intact Skin Skin exam: Present warm, dry and other (Patient has several areas of ecchymosis from her insulin shots) Medical Decision Making Medical Records Medical records reviewed: Yes I reviewed the patient's medical records. Thomas Inquiry Pt receiving controlled substance: No Vital Signs: 03/30/24 15:03 03/30/24 15:07 03/30/24 15:30 Temperature 97.6 F Temperature Source Oral Pulse Rate 88 88 Pulse Rate [Left Radial] 111 H Respiratory Rate 15 Blood Pressure 117/81 124/68 Blood Pressure [Right Arm] 117/81 Blood Pressure Mean [Right Arm] 93 02 Sat by Pulse Oximetry 99 96 97 Oxygen Delivery Method Room Air Room Air Room Air Lab Data Lab results reviewed: Yes I reviewed the patient's lab results. Lab Results 03/30/24 15:15: WBC 5.8, RBC 4.08 L, Hgb 11.1 L, Hct 35.5 L, MCV 87.0, MCH 27.2, MCHC 31.3 L, RDW 16.2, Plt Count 134 L, MPV 7.8, Neut % (Auto) 74.1, Lymph % (Auto) 17.9, [place] % (Auto) 5.7, Eos % (Auto) 2.0, Baso % (Auto) 0.3, Neut # (Auto) 4.3, Lymph # (Auto) 1.0, [place] # (Auto) 0.3, Eos # (Auto) 0.1, Baso # (Auto) 0.0, PT 16.7 H, INR 1.56 H, Sodium 140, Potassium 4.0, Chloride 98, C arbon Dioxide 31 H, Anion Gap 15.0, BUN 29 H, Creatinine 1.60 H, Estimated Creat Clear 26, Estimated GFR 31 L, Est GFR ( Amer) 37 L, Glucose 148 H, Calcium 9.0, Magnesium 1.9, Total Bilirubin 1.0, AST 44 H, ALT 30, Alkaline Phosphatase 110, Ammonia < 9 L, NT-Pro-B Natriuret Pep 2620 H, Total Protein 7.0, Albumin 4.1, Globulin 2.9, Albumin/Globulin Ratio 1.4, Lipase 21 L 03/30/24 15:19: VBG pH 7.36, VBG pCO2 48.4, VBG pO2 35.9, VBG HCO3 26.9, VBG Total CO2 28.4 H, VBG O2 Saturation 61.0, VBG Base Excess 1.5, VBG Lactic Acid 2.7 H 03/30/24 15:25: Blood Type O Positive, Antibody Screen Negative 03/30/24 15:15 03/30/24 15:15 Orders (Tests/Meds): ORDERS Category Date Time Status Type and Screen Stat BBK 03/30/24 15:[address] abdomen pelvis wo con Stat Cat Scan 03/30/24 15:[address] chest wo con Stat Cat Scan 03/30/24 15:34 Taken POCUS Point of Care (ER Only) Stat Exams 03/30/24 15:18 Ordered Ammonia Stat Lab 03/30/24 15:15 Completed BNP [NT Pro Brain Natriuretic Pep.] Stat Lab 03/30/24 15:15 Completed CBC w/Auto Diff [Complete Blood Count Auto Diff] Stat Lab 03/30/24 15:15 Completed CMP [Comprehensive Metabolic Panel] Stat Lab 03/30/24 15:15 Completed INR [Prothrombin Time INR] Stat Lab 03/30/24 15:15 Completed Lipase Stat Lab 03/30/24 15:15 Completed Magnesium Stat Lab 03/30/24 15:15 Completed UA [Urinalysis and Microscopic] Stat Lab 03/30/24 16:07 Received VBG [Venous Blood Gas] Stat RT 03/30/24 15:19 Completed Medical Decision Narrative: In summary patient is a 88-year-old female who presents to the emergency department for evaluation of fluid on my belly . Patient is normotensive tachycardic with an O2 sat of 99 on room air breathing 15 times a minute upon arrival, afebrile. Physical exam is remarkable for diminished breath sounds on the right with no respiratory distress or accessory muscle use, a taut diffusely tender abdomen to palpation but normal bowel sounds and bilateral lower extremity trace edema. Differential diagnosis includes CHF exacerbation versus decompensated liver disease versus pleural effusion versus renal failure etc. Initial workup will be conducted with POCUS, hematologic labs, urinalysis, CT scan chest abdomen pelvis. Initial interventions include push dose of Lasix 80. Initial workup reviewed by me and my informal interpretation of her imaging shows a significant right-sided pleural effusion minimal ascites and anasarca prior to radiology read. Hematologic labs show an elevated NT proBNP and INR of 1.5 lactic acid of 2.7 creatinine 1.6 which appears to be her baseline with a GFR of 31 which also appears to be her baseline and NT proBNP of 2620 and the remainder of her hematologic labs are nonactionable. Upon repeat evaluation had an interactive discussion with the patient about being admitted to the hospital for which she was agreeable.. Given this I had interactive discussion with hospital medicine who is agreed for admission and further evaluation and care Critical Care Critical Care Time Critical Care Time: No
[2024-03-30 15:24] LABS: Lactate Venous 2.7 mmol/L (0.4-2.0); VBG Base Excess 1.5 mmol/L (-2.4-2.3); VBG HCO3 26.9 mmol/L (23-30); VBG PCO2 48.4 mmol/L (35-51); VBG PH 7.36 mmol/L (7.31-7.41); VBG PO2 35.9 mmol/L (28-40); VBG Total CO2 28.4 mmol/L (23-27)
[2024-03-30 15:30] LABS: Basophils % 0.3 % (0.1-2.0); Eosinophils # 0.1 K/mm3 (0.0-0.4); Hematocrit 35.5 % (37.0-47.0); Hemoglobin 11.1 g/dL (12.2-16.2); Lymphocytes % 17.9 % (10-50); Mean Corpuscular HGB Conc 31.3 g/dL (31.8-35.4); Mean Corpuscular Hemoglobin 27.2 pg (27.0-31.2); Mean Platelet Volume 7.8 fl (7.4-10.4); Monocytes # 0.3 K/mm3 (0.1-1.0); Monocytes % 5.7 % (1.7-9.3); Neutrophils # 4.3 K/mm3 (1.8-7.8); Neutrophils % 74.1 % (37.0-80.0); Platelet Count 134 K/mm3 (142-424); Red Blood Count 4.08 M/mm3 (4.20-5.40); Red Cell Distribution Width 16.2 % (11.5-17.5); White Blood Count 5.8 K/mm3 (4.8-10.8)
[2024-03-30 15:32] LABS: Chloride 98 mmol/L (98-107); Sodium 140 mmol/L (136-145)
--- NOTE | 2024-03-30 15:34 | CT_ITS ---
FINAL REPORT TECHNIQUE: Axial images through the chest were performed by computed tomography. This study was performed with techniques to keep radiation doses as low as reasonably achievable, (ALARA). Individualized dose reduction techniques using automated exposure control or adjustment of mA and/or kV according to the patient's size were employed. CLINICAL HISTORY: pyrexia, lung cancer COMPARISON: CTA of the chest 01/24/2024 FINDINGS: CT CHEST without contrast COMPARISON: CTA of the chest 01/24/2024 FINDINGS: There is severe right lower lobe atelectasis. The left lung is unremarkable. There is a moderate right effusion which contributes to the severe right lower lobe atelectasis. No adenopathy or mass lesion is present . IMPRESSION: Severe right lower lobe atelectasis with a moderate right pleural effusion contributing to the atelectasis. The left lung is unremarkable. Reviewed, Interpreted and Dictated by Alessandro Burrell MD Transcribed by Ora Brunson Authenticated and [facility]
--- NOTE | 2024-03-30 15:34 | CT_ITS ---
FINAL REPORT TECHNIQUE: Noncontrast CT exam of the abdomen and pelvis. This study was performed with techniques to keep radiation doses as low as reasonably achievable (ALARA). Individualized dose reduction techniques using automated exposure control or adjustment of mA and/or kV according to the patient''s size were employed. CLINICAL HISTORY: acute abd pain COMPARISON: CTA of the abdomen and pelvis dated 01/24/2024 FINDINGS: Abdomen: Severe right lower lobe atelectasis and a moderate right pleural effusion are present, as described on the chest CT of the same date. Liver, pancreas and adrenal glands have a normal CT appearance in their limited unenhanced state. 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 There is extrahepatic mild biliary ductal dilatation, and would correlate with LFTs. A small amount of ascites is present in the upper quadrants bilaterally. There is no evidence of obstruction or free air in the abdomen. The kidneys show no stone disease or obstruction. There is a hypodense left renal mass, likely a renal cyst. No ureteral stones are present. Pelvis: No distal ureteral stones are seen. Mild ascites is present in the pelvis. There is mild fecal impaction in the rectal vault. Severe sigmoid diverticulosis is present. Bladder is mildly distended. No fluid collection or adenopathy is seen. IMPRESSION: Small amount of ascites is present in the pelvis and abdomen. No evidence of obstruction or free air is seen. Reviewed, Interpreted and Dictated by Alessandro Burrell MD Transcribed by Ora Brunson Authenticated and [facility]
[2024-03-30 15:35] LABS: Alanine Aminotransferase 30 U/L (12-78); Albumin Level 4.1 g/dl (3.5-5.0); Albumin/Globulin Ratio 1.4 (1.1-1.8); Alkaline Phosphatase 110 U/L (38-126); Aspartate Amino Transferase 44 U/L (14-36); Blood Urea Nitrogen 29 mg/dl (7-17); Carbon Dioxide 31 mmol/L (22.0-30.0); Creatinine Clearance Estimated 26 mL/min (50-200); Estimated Glomerular Filt Rate 31 ml/min (>60); GFR (African American) 37 ML/MIN (>60); Globulin 2.9 g/dL (1.3-3.2); Glucose 148 mg/dl (74-100); Lipase 21 U/L (23-300)
[2024-03-30 15:36] LABS: INR 1.56 (0.9-1.1); Magnesium 1.9 mg/dl (1.6-2.3); Prothrombin Time 16.7 seconds (10.1-12.5)
[2024-03-30 15:44] LABS: Ammonia < 9 umol/L (9-30)
[2024-03-30 16:02] LABS: NT Pro Brain Natriuretic Pep. 2620 pg/mL (0-450)
[2024-03-30 16:12] LABS: Microscopic, Urine URINE MICROSCOPIC (MICROSCOPIC)
--- NOTE | 2024-03-30 16:20 | PC.NURSE ---
speaking to hospitalist
--- NOTE | 2024-03-30 16:28 | PC.NURSE ---
GENOVEVA PEREZ SPEAKING WITH DR MCKEON
[2024-03-30 16:31] LABS: Appearance,Urine CLEAR (Clear); Bilirubin,Urine Negative (Negative); Blood, Urine Negative (Negative); Color,Urine YELLOW (Yellow); Glucose,Urine (UA) 3+ (Negative); Ketones,Urine Negative (Negative); Leukocyte Esterase,Urine TRACE (Negative); Nitrate,Urine Negative (Negative); PH,Urine 6.5 (5.0-8.5); Protein,Urine Negative (Negative); Urobilinogen,Urine 0.2 EU/dl (0.2)
[2024-03-30] MEDS: FUROSEMIDE 100MG/10ML VIAL 80 MG IV (16:42)
[2024-03-30 16:43] LABS: Squamous Epithelial Cell,Urine Occasional #/hpf (0-5); WBC,Urine Occasional #/hpf (0-3)
--- NOTE | 2024-03-30 16:55 | PC.NURSE ---
report called to parker on second floor
[2024-03-30 19:24] LABS: Reflex Lactic Add Lactic Reflex
[2024-03-30 20:21] LABS: Lactic Acid Follow Up (RFLX 1) 1.2 mmol/L (0.7-2.1)
[2024-03-30 20:48] LABS: POC Glucose,Bedside 120 (70-110)
--- NOTE | 2024-03-30 21:55 | EXP.HP ---
History of Present Illness *Admission Date: 03/30/24 *History of present illness: This is a 88-year-old female with PMHx of IDDM, CKD, CAD, Afib, pacemaker in situ, Grade II diastolic dysfunction, with recent diagnosis of cirrhosis with ascites and anasarca back in January of this year. Patient was referred by PCP for evaluation. Patient has had 1 paracentesis with minimal drainage according to the patient. That happened during an admission in January however patient has not been referred to hepatology for further characterization of her liver disease. Last labs done by her PCP were in February. Patient states that she has exercise intolerance, dyspnea on exertion even at rest, orthopnea, and feels like that she cannot breathe at the moment due to how tight my belly is. History also obtained form daughter at bedside. They called her PCP who told her to come to the emergency department for evaluation. Patient currently denies chest pain fever chills hemoptysis hematochezia melena nausea vomiting diarrhea. She does not know how much she weighs or if she is gaining weight recently. Admitted for further management. [facility] Disclaimer: The information contained in this section may have been updated after the patient was seen, as this information can be updated by other users. Medical History Seasonal allergies Hyperlipemia Hypertension Atypical angina Abnormal cardiovascular stress test Nausea vomiting and diarrhea Atypical chest pain Fatigue Gastroenteritis Arthritis History of anemia History of gastroesophageal reflux (GERD) Diabetes mellitus, type 2 History of cataract Arrhythmia History of pacemaker History of left heart catheterization (LHC) Gastritis Acute blood loss anemia (ABLA) Hyperglycemia Angina at rest Hyperglycemia without ketosis PAF (paroxysmal atrial fibrillation) Acute kidney injury DKA (diabetic ketoacidosis) Dyspnea Lactose intolerance Strep throat Pancytopenia 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 Patient is following with cardiology. Hyperkalemia Renal insufficiency Urinary tract infection Anemia We need to check a CBC at her next visit. Acute renal insufficiency Cardiogenic shock Diabetes Pre-syncope Contusion of sternum Fatigue SOB (shortness of breath) on exertion Leg pain, bilateral HLD (hyperlipidemia) Will continue with current therapy for now. Angina pectoris Cardiac pacemaker in situ will check labs SSS (sick sinus syndrome) HTN (hypertension) Pulmonary HTN Chest wall pain following surgery Report soreness r/t post op pacemaker Coronary artery disease Patient follows with cardiology on a regular basis. Surgical History History of esophagogastroduodenoscopy (EGD) Hx of tonsillectomy History of colonoscopy History of hysterectomy History of appendectomy History of cholecystectomy Family History Other No significant family history Social History (Updated 03/30/24 @ 18:41 by Mauricio Alonso RN) Smoking Status: Never smoker second hand exposure: No alcohol intake: never substance use type: denies use current occupational status: disabled Travel in the last 8 weeks: Inside the [place] household members: family housing: house caffeine: No Review of Systems Review of Systems Review of systems:: pertinent systems reviewed and negative unless documented below Meds Home Medications and Allergies Home Medications Medication Instructions Recorded Confirmed Type cyanocobalamin (vitamin B-12) 2,500 mcg sublingual BID 08/18/21 03/30/24 History 2,500 mcg sublingual tablet multivitamin-ferrous 1 each PO DAILY Supplement 08/18/21 03/30/24 History fumarate-folic acid 18 mg-400 mcg tablet mirabegron 25 mg tablet,extended 25 mg PO HS 09/23/23 03/30/24 History release 24 hr (Myrbetriq) ferrous gluconate 324 mg (38 mg 324 mg PO DAILY 60 days #60 tabs 11/08/23 03/30/24 Rx iron) tablet flash glucose sensor (FreeStyle #2 ea 12/06/23 03/30/24 Rx Kai 14 Day Sensor kit) nitroglycerin 0.4 mg sublingual 0.4 mg sublingual Q5M PRN chest 12/20/23 03/30/24 Rx tablet pain #30 tabs insulin glargine 100 unit/mL (3 15 unit (0.15 mL) SQ BID 60 days 12/24/23 03/30/24 Rx mL) subcutaneous pen (Lantus #18 mL Solostar U-100 Insulin) sertraline 100 mg tablet 100 mg PO DAILY depressed #90 tabs 01/14/24 03/30/24 Rx bisoprolol fumarate 5 mg tablet 2.5 mg PO HS 01/24/24 03/30/24 History fluticasone propionate 50 1 spray intranasal DAILY 01/24/24 03/30/24 History mcg/actuation nasal spray,suspension levothyroxine 50 mcg tablet 50 mcg PO HS 01/24/24 03/30/24 History verapamil 120 mg 24 hr 120 mg PO HS 01/24/24 03/30/24 History capsule,extended release isosorbide mononitrate 30 mg 15 mg PO DAILY 01/25/24 03/30/24 History tablet,extended release 24 hr lidocaine 5 % topical patch 1 patch topical Q24H 30 days #30 ea 01/26/24 03/30/24 Rx docusate sodium 100 mg capsule 100 mg PO DAILY 01/27/24 03/30/24 History rivaroxaban 15 mg tablet (Xarelto) 15 mg PO HS #30 tabs 02/11/24 03/30/24 Rx clopidogrel 75 mg tablet See Rx Instructions .Route 02/14/24 03/30/24 Rx .COMPLEX #30 tabs bumetanide 1 mg tablet 1 mg PO DAILY #30 tabs 02/16/24 03/30/24 Rx cetirizine 10 mg tablet See Rx Instructions .Route 03/02/24 03/30/24 Rx .COMPLEX #90 tabs empagliflozin 10 mg tablet See Rx Instructions .Route 03/06/24 03/30/24 Rx (Jardiance) .COMPLEX #60 tabs atorvastatin 40 mg tablet See Rx Instructions .Route 03/07/24 03/30/24 Rx .COMPLEX #90 tabs pen needle, diabetic 31 gauge x 03/17/24 03/30/24 History 5/16 (BD Ultra-Fine Short Pen Needle) oxycodone 5 mg tablet 2.5 mg (1/2 x 5 mg) PO Q8H PRN 03/22/24 03/30/24 Rx pain in shoulder #30 tabs pen needle, diabetic 31 gauge x #1,200 ea 03/22/24 03/30/24 History 3/16 (BD Ultra-Fine Mini Pen Needle) omeprazole 40 mg capsule,delayed 40 mg PO DAILY 03/30/24 03/30/24 History release New Prescriptions to Start Prescriptions: Allergies Allergy/AdvReac Type Severity Reaction Status Date / Time methylprednisolone Allergy Mild Elevated Verified 03/22/24 13:17 glucose Exam Data for Last 24 hours Vital signs and Labs for Last 24 Hours: Temp Pulse Resp BP Pulse Ox O2 Del Method 97.9 F 110 H 16 105/67 L 96 Room Air 03/30/24 19:57 03/30/24 19:57 03/30/24 19:57 03/30/24 19:57 03/30/24 19:57 03/30/24 19:57 Laboratory Results - last 24 hr 03/30/24 15:15: WBC 5.8, RBC 4.08 L, Hgb 11.1 L, Hct 35.5 L, MCV 87.0, MCH 27.2, MCHC 31.3 L, RDW 16.2, Plt Count 134 L, MPV 7.8, Neut % (Auto) 74.1, Lymph % (Auto) 17.9, [place] % (Auto) 5.7, Eos % (Auto) 2.0, Baso % (Auto) 0.3, Neut # (Auto) 4.3, Lymph # (Auto) 1.0, [place] # (Auto) 0.3, Eos # (Auto) 0.1, Baso # (Auto) 0.0, PT 16.7 H, INR 1.56 H, Sodium 140, Potassium 4.0, Chloride 98, Carbon Dioxide 31 H, Anion Gap 15.0, BUN 29 H, Creatinine 1.60 H, Estimated Creat Clear 26, Estimated GFR 31 L, Est GFR ( Amer) 37 L, Glucose 148 H, Calcium 9.0, Magnesium 1.9, Total Bilirubin 1.0, AST 44 H, ALT 30, Alkaline Phosphatase 110, Ammonia < 9 L, NT-Pro-B Natriuret Pep 2620 H, Total Protein 7.0, Albumin 4.1, Globulin 2.9, Albumin/Globulin Ratio 1.4, Lipase 21 L 03/30/24 15:19: VBG pH 7.36, VBG pCO2 48.4, VBG pO2 35.9, VBG HCO3 26.9, VBG Total CO2 28.4 H, VBG O2 Saturation 61.0, VBG Base Excess 1.5, VBG Lactic Acid 2.7 H 03/30/24 15:25: Blood Type O Positive, Antibody Screen Negative 03/30/24 16:07: Urine Color Yellow, Urine Appearance Clear, Urine pH 6.5, Ur Specific [place] 1.010, Urine Protein Negative, Urine Glucose (UA) 3+, Urine Ketones Negative, Urine Blood Negative, Urine Nitrate Negative, Urine Bilirubin Negative, Urine Urobilinogen 0.2, Ur Leukocyte Esterase Trace, Urine RBC None, Urine WBC Occasional, Ur Squamous Epith Cells Occasional, Urine Bacteria None 03/30/24 19:39: Lactate 1.2 03/30/24 20:31: POC Glucose 120 H Pulse Resp BP Pulse Ox O2 Del Method 70 20 127/64 95 Room Air 09/22/23 16:00 09/22/23 14:00 09/22/23 14:00 09/22/23 14:00 09/22/23 14:00 Laboratory Results - last 24 hr 09/22/23 09:30: WBC 8.0, RBC 4.24, Hgb 10.8 L, Hct 32.6 L, MCV 77.0 L, MCH 25.5 L, MCHC 33.1, RDW 16.4, Plt Count 187, MPV 7.2 L, Neut % (Auto) 73.5, Lymph % (Auto) 18.3, [place] % (Auto) 4.1, Eos % (Auto) 3.9, Baso % (Auto) 0.2, Neut # (Auto) 5.9, Lymph # (Auto) 1.5, [place] # (Auto) 0.3, Eos # (Auto) 0.3, Baso # (Auto) 0.0, Sodium 139, Potassium 4.8, Chloride 101, Carbon Dioxide 26, Anion Gap 16.8 H, BUN 27 H, Creatinine 1.20 H, Estimated Creat Clear 30, Estimated GFR 43 L, Est GFR ( Amer) 52 L, Glucose 232 H, Calcium 9.5 09/22/23 13:20: Activated Clotting Time 227 H* I & O for Last 24 hours: Intake & Output 03/27/24 03/28/24 03/29/24 03/30/24 23:59 23:59 23:59 23:59 Intake Total 360 / 360 Output Total 0 / 0 Balance 360 / 360 Weight 68.039 kg Intake & Output 09/19/23 09/20/23 09/21/23 09/22/23 23:59 23:59 23:59 23:59 Intake Total 240 / 240 Balance 240 / 240 Weight 56.699 kg Constitutional Constitutional: no acute distress *Routine HEENT Exam Head: Present normocephalic Eye: Present EOMI and PERRL ENT: Present mucous membranes moist *Routine Neck Exam Neck: Present supple; Absent lymphadenopathy *Routine Respiratory Exam Respiratory: Present CTA bilaterally *Routine Cardiovascular Exam Cardiovascular: Present RRR *Routine Abdominal Exam Abdominal: Present soft and normoactive bowel sounds; Absent tenderness *Routine Rectal Exam Rectal:: deferred *Routine Genitalia Exam Genitalia:: deferred *Routine Extremities Exam Extremities: Absent cyanosis, clubbing or edema *Routine Skin Exam Skin: Present warm; Absent rash *Routine Neurological Exam Neurological: Present alert and oriented X3 H&P: Result Imaging and Cardiology EKG: Status: image reviewed by me, Preliminary report and final report CT scan - abdomen: Status: image reviewed by me, Preliminary report and final report CT scan - chest: Status: image reviewed by me, Preliminary report and final report CT scan - pelvis: Status: image reviewed by me, Preliminary report and final report Assessment and Plan *Assessment and plan (1) Acute on chronic congestive heart failure: Status: Acute Qualifiers: Heart failure type: unspecified Qualified Code(s): I50.9 - Heart failure, unspecified Category: Medical Code(s): I50.9 - Heart failure, unspecified (2) Pleural effusion: Status: Acute Category: Medical Code(s): J90 - Pleural effusion, not elsewhere classified (3) Abdominal ascites: Status: Acute Qualifiers: Ascites type: other type Qualified Code(s): R18.8 - Other ascites Category: Medical Code(s): R18.8 - Other ascites (4) Cirrhosis of liver: Status: Acute Qualifiers: Ascites presence: unspecified Hepatic cirrhosis type: unspecified hepatic cirrhosis Qualified Code(s): K74.60 - Unspecified cirrhosis of liver Category: Medical Code(s): K74.60 - Unspecified cirrhosis of liver (5) CKD (chronic kidney disease) stage 3, GFR 30-59 ml/min: Status: Deleted Qualifiers: Chronic kidney disease stage 3 subtype: stage 3a (GFR 45-59) Qualified Code(s): N18.31 - Chronic kidney disease, stage 3a Category: Medical Code(s): N18.30 - Chronic kidney disease, stage 3 unspecified (6) Aneurysm of splenic artery: Status: Acute Category: Medical Code(s): I72.8 - Aneurysm of other specified arteries (7) Coronary artery disease: Problem Comment: Patient follows with cardiology on a regular basis. Status: Acute Qualifiers: Associated angina: with other forms of angina Coronary Disease-Associated Artery/Lesion type: [place] artery [place] vs. transplanted heart: [place] heart Qualified Code(s): I25.118 - Atherosclerotic heart disease of [place] coronary artery with other forms of angina pectoris Category: Medical Code(s): I25.10 - Atherosclerotic heart disease of [place] coronary artery without angina pectoris (8) Atrial fibrillation: Status: Acute Qualifiers: Atrial fibrillation type: unspecified chronic Qualified Code(s): I48.20 - Chronic atrial fibrillation, unspecified Category: Medical Code(s): I48.91 - Unspecified atrial fibrillation (9) Diabetes mellitus type 2 in nonobese: Status: Acute Category: Medical Code(s): E11.9 - Type 2 diabetes mellitus without complications Plan 88-year-old female with PMHx of IDDM, CKD, CAD, Afib, pacemaker in situ, Grade II diastolic dysfunction, with recent diagnosis of cirrhosis with ascites and anasarca back in January of this year. Patient was referred by PCP for evaluation. On arrival patient visible in respiratory difficult. IV Lasix [address] of the chest shows for right pleural effusion. There is of the labs was reviewed. Discussed with the ED for admission. I agree for inpatient management. Plan as follow: - Suspected worsened CHF. right pleural effusion: ascites: Cardiology consulted, appreciate their recommendations. 80 mg IVP lasix given at ED. patient has been irregularly on and off diuretic due to kidneys functions ECHO showed grade II diastolic dysfunction with preserved EF Appears euvolemic on exam. Breathing ok on RA monitor strict I/Os -Cirrhosis of the liver? was only radiologically diagnosed (US of the abdomen) Aneurism of the splenic: continue monitoring mild ascitis found on pelvis and upper quadrant Condition to rule out worsening decompensation of the Cirrhosis of the liver with hepatopulmonar syndrome. CT of the abdomen reviewed. concerned for constipation and non infected diverticulitis on bowel regimen Docusate BID patient might need out patient f/u with GI for cirrhosis work up A-fib Hyperlipidemia CAD - continue Plavix 75 mg daily. - Continue bisoprolol 2.5 mg nightly -Continue Jardiance 20 mg daily, continue isosorbide 15 mg daily -Continue Lipitor 40 mg nightly IDDM: accucheck before meal home lantus 15U BID last A1c 8.3. Goal A1c less than 8 sliding scale On Plavix and Xarelto On protonix Full code
[2024-03-30] MEDS: OXYCODONE 5MG IMMEDIATE RELEASE TABLET 2.5 MG PO (23:16)
[2024-03-30] MEDS: INSULIN GLARGINE 100 UNITS/ML 3ML FLEXPEN 15 UNIT SQ (23:18)
--- NOTE | 2024-03-31 03:59 | PC.NURSE ---
A/O X 4. PATIENT HAS RESTED WELL AFTER PAIN MED FOR CHRONIC RIGHT SHOULDER PAIN AT 2316. FAMILY MEMBER AT BEDSIDE. 02 SAT 96% ON ROOM AIR. PATIENT REPORTS SOA WITH EXERTION . HOB ELEVATED 35 DEGREES FOR COMFORT. HR IRREG-IRREG (PMH A FIB). 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 BREATH SOUNDS DIMINISHED. NO COUGH NOTED. HAS PACEMAKER. HOME MEDS LOCKED IN DRAWER.
[2024-03-31 04:00] VITALS: BP 98/60; PULSE 76; RESP 16; TEMP 36.6; O2SAT 98; BMI 26.2
[2024-03-31 05:44] LABS: POC Glucose,Bedside 82 (70-110)
[2024-03-31 06:52] LABS: Chloride 99 mmol/L (98-107); Sodium 139 mmol/L (136-145)
[2024-03-31 06:55] LABS: Anion Gap 11.9 mEq/L (5-15); Blood Urea Nitrogen 27 mg/dl (7-17); Carbon Dioxide 31 mmol/L (22.0-30.0); Creatinine Clearance Estimated 31 mL/min (50-200); Estimated Glomerular Filt Rate 36 ml/min (>60); GFR (African American) 43 ML/MIN (>60)
[2024-03-31 06:56] LABS: Calcium 8.6 mg/dl (8.4-10.2); Glucose 70 mg/dl (74-100)
[2024-03-31 07:03] LABS: Potassium 2.9 mmoL/L (3.5-5.1)
--- NOTE | 2024-03-31 07:44 | HMH.PHAINT1 ---
Pharmacy Intervention Comments: HOME MEDICATION LIST VERIFIED USING LIST FROM OUTPATIENT PHARMACY
[2024-03-31 07:57] VITALS: BP 103/53; PULSE 74; RESP 16; TEMP 36.5; O2SAT 99
[2024-03-31] MEDS: ISOSORBIDE MONO 30MG TAB.ER.24H 15 MG PO (08:25)
[2024-03-31] MEDS: FLUTICASONE PROP 50MCG NASAL SPRAY 16GM 1 SPRAY NS (08:25)
[2024-03-31] MEDS: SERTRALINE 100MG TABLET 100 MG PO (08:26)
[2024-03-31] MEDS: DOCUSATE SODIUM 100 MG CAPSULE PO (08:26)
[2024-03-31] MEDS: EMPAGLIFLOZIN 10MG TABLET 20 MG PO (08:26)
[2024-03-31] MEDS: CLOPIDOGREL 75MG TAB 75 MG PO (08:26)
[2024-03-31] MEDS: LEVOTHYROXINE 50MCG (0.05MG) TAB 50 MCG PO (08:26)
[2024-03-31] MEDS: FERROUS SULFATE 325MG TABLET 325 MG PO (08:26)
[2024-03-31 09:23] LABS: POC Glucose,Bedside 199 (70-110)
[2024-03-31] MEDS: INSULIN GLARGINE 100 UNITS/ML 3ML FLEXPEN 15 UNIT SQ ×2 (09:30→20:45)
[2024-03-31 09:37] LABS: Basophils % 0.4 % (0.1-2.0); Eosinophils # 0.1 K/mm3 (0.0-0.4); Eosinophils % 1.9 % (0.1-12.0); Hematocrit 32.2 % (37.0-47.0); Hemoglobin 10.1 g/dL (12.2-16.2); Lymphocytes # 1.2 K/mm3 (0.7-4.5); Lymphocytes % 24.1 % (10-50); Mean Corpuscular HGB Conc 31.4 g/dL (31.8-35.4); Mean Platelet Volume 7.7 fl (7.4-10.4); Monocytes # 0.3 K/mm3 (0.1-1.0); Monocytes % 6.4 % (1.7-9.3); Neutrophils # 3.3 K/mm3 (1.8-7.8); Neutrophils % 67.2 % (37.0-80.0); Platelet Count 114 K/mm3 (142-424); Red Blood Count 3.74 M/mm3 (4.20-5.40); Red Cell Distribution Width 16.2 % (11.5-17.5); White Blood Count 4.9 K/mm3 (4.8-10.8)
--- NOTE | 2024-03-31 10:20 | EXP.CARD.CON ---
History of Present Illness History of Present Illness Consult date: 03/31/24 Requesting physician: Pauline Bruce Chief complaint: edema History of present illness: This is an 88-year-old white female who presented to the emergency department as directed by her primary care provider for evaluation. She has a past medical history of coronary artery disease, atrial fibrillation, chronic kidney disease, diabetes mellitus, and HFpEF. The patient states that she had been having worsening abdominal edema and shortness of breath. Her shortness of breath was associated with orthopnea. She states that she felt like her belly was really tight. She denied any chest pain or pressure. She denied any lower extremity edema. She denies any fever, chills, nausea, vomiting, diarrhea. The patient reports that she called her primary care provider's office to tell her about the worsening shortness of breath and tightness in her belly, and she was instructed to go to the emergency department. The patient was admitted to the hospital due to a moderate right pleural effusion and elevated BNP. [facility] Disclaimer: The information contained in this section may have been updated after the patient was seen, as this information can be updated by other users. Medical History (Updated 03/31/24 @ 10:24 by Emily Lantigua APRN) Chronic Kidney Disease Acute on chronic heart failure with preserved ejection fraction (HFpEF) Seasonal allergies Hyperlipemia Hypertension Atypical angina Abnormal cardiovascular stress test Nausea vomiting and diarrhea Atypical chest pain Fatigue Gastroenteritis Arthritis History of anemia History of gastroesophageal reflux (GERD) Diabetes mellitus, type 2 History of cataract Arrhythmia History of pacemaker History of left heart catheterization (LHC) Gastritis Acute blood loss anemia (ABLA) Hyperglycemia Angina at rest Hyperglycemia without ketosis PAF (paroxysmal atrial fibrillation) Acute kidney injury DKA (diabetic ketoacidosis) Dyspnea Lactose intolerance Strep throat Pancytopenia 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 antigen is unknown, or is not H7 Hypokalemia Hypotension Digitalis toxicity Edema SOB (shortness of breath) Leukocytosis Colitis Viral gastroenteritis Lactic acidosis Hyperglycemia due to diabetes mellitus Palpitations Primary osteoarthritis of right shoulder CHF (congestive heart failure) Cardiomyopathy Atrial fibrillation with RVR Right shoulder pain Peripheral arterial disease Atrial fibrillation Hyperkalemia Renal insufficiency Urinary tract infection Anemia Acute renal insufficiency Cardiogenic shock Diabetes Pre-syncope Contusion of sternum Fatigue SOB (shortness of breath) on exertion Leg pain, bilateral HLD (hyperlipidemia) Angina pectoris Cardiac pacemaker in situ SSS (sick sinus syndrome) HTN (hypertension) Pulmonary HTN Chest wall pain following surgery Coronary artery disease Surgical History History of esophagogastroduodenoscopy (EGD) Hx of tonsillectomy History of colonoscopy History of hysterectomy History of appendectomy History of cholecystectomy Family History Other No significant family history Social History (Updated 03/30/24 @ 18:41 by Mauricio Alonso RN) Smoking Status: Never smoker second hand exposure: No alcohol intake: never substance use type: denies use current occupational status: disabled Travel in the last 8 weeks: Inside the [place] household members: family housing: house caffeine: No Review of Systems Review of Systems Review of systems:: pertinent systems reviewed and negative unless documented below Constitutional Constitutional: Reports system reviewed and no additional complaints, except as documented Eyes Eyes: Reports system reviewed and no additional complaints, except as documented ENT Ears, Nose, Mouth, and Throat: Reports system reviewed and no additional complaints, except as documented *Cardiovascular Cardiovascular: Reports system reviewed and no additional complaints, except as documented, Denies chest pain, Reports dyspnea, Reports dyspnea on exertion and Reports orthopnea *Respiratory Respiratory: Reports system reviewed and no additional complaints, except as documented, Reports cough, Reports dyspnea and Reports dyspnea on exertion *Gastrointestinal Gastrointestinal: Reports system reviewed and no additional complaints, except as documented *Genitourinary Genitourinary: Reports system reviewed and no additional complaints, except as documented *Musculoskeletal Musculoskeletal: Reports system reviewed and no additional complaints, except as documented Integumentary/Breasts Skin/Breast: Reports system reviewed and no additional complaints, except as documented *Neurologic Neurologic: Reports system reviewed and no additional complaints, except as documented Psychiatric Psychiatric: Reports system reviewed and no additional complaints, except as documented Endocrine Endocrine: Reports system reviewed and no additional complaints, except as documented Hematologic/Lymphatic Hematologic/Lymphatic: Reports system reviewed and no additional complaints, except as documented Allergic/Immunologic Allergic/Immunologic: Reports system reviewed and no additional complaints, except as documented Exam Data for Last 24 hours Vital signs and Labs for Last 24 Hours: Temp Pulse Resp BP Pulse Ox O2 Del Method 97.7 F 74 16 103/53 L 99 Room Air 03/31/24 07:57 03/31/24 07:57 03/31/24 07:57 03/31/24 07:57 03/31/24 07:57 03/31/24 09:38 Laboratory Results - last 24 hr 03/30/24 15:15: WBC 5.8, RBC 4.08 L, Hgb 11.1 L, Hct 35.5 L, MCV 87.0, MCH 27.2, MCHC 31.3 L, RDW 16.2, Plt Count 134 L, MPV 7.8, Neut % (Auto) 74.1, Lymph % (Auto) 17.9, [place] % (Auto) 5.7, Eos % (Auto) 2.0, Baso % (Auto) 0.3, Neut # (Auto) 4.3, Lymph # (Auto) 1.0, [place] # (Auto) 0.3, Eos # (Auto) 0.1, Baso # (Auto) 0.0, PT 16.7 H, INR 1.56 H, Sodium 140, Potassium 4.0, Chloride 98, Carbon Dioxide 31 H, Anion Gap 15.0, BUN 29 H, Creatinine 1.60 H, Estimated Creat Clear 26, Estimated GFR 31 L, Est GFR ( Amer) 37 L, Glucose 148 H, Calcium 9.0, Magnesium 1.9, Total Bilirubin 1.0, AST 44 H, ALT 30, Alkaline Phosphatase 110, Ammonia < 9 L, NT-Pro-B Natriuret Pep 2620 H, Total Protein 7.0, Albumin 4.1, Globulin 2.9, Albumin/Globulin Ratio 1.4, Lipase 21 L 03/30/24 15:19: VBG pH 7.36, VBG pCO2 48.4, VBG pO2 35.9, VBG HCO3 26.9, VBG Total CO2 28.4 H, VBG O2 Saturation 61.0, VBG Base Excess 1.5, VBG Lactic Acid 2.7 H 03/30/24 15:25: Blood Type O Positive, Antibody Screen Negative 03/30/24 16:07: Urine Color Yellow, Urine Appearance Clear, Urine pH 6.5, Ur Specific [place] 1.010, Urine Protein Negative, Urine Glucose (UA) 3+, Urine Ketones Negative, Urine Blood Negative, Urine Nitrate Negative, Urine Bilirubin Negative, Urine Urobilinogen 0.2, Ur Leukocyte Esterase Trace, Urine RBC None, Urine WBC Occasional, Ur Squamous Epith Cells Occasional, Urine Bacteria None 03/30/24 19:39: Lactate 1.2 03/30/24 20:31: POC Glucose 120 H 03/31/24 05:36: POC Glucose 82 03/31/24 05:53: WBC 4.9, RBC 3.74 L, Hgb 10.1 L, Hct 32.2 L, MCV 86.0, MCH 27.0, MCHC 31.4 L, RDW 16.2, Plt Count 114 L, MPV 7.7, Neut % (Auto) 67.2, Lymph % (Auto) 24.1, [place] % (Auto) 6.4, Eos % (Auto) 1.9, Baso % (Auto) 0.4, Neut # (Auto) 3.3, Lymph # (Auto) 1.2, [place] # (Auto) 0.3, Eos # (Auto) 0.1, Baso # (Auto) 0.0, Sodium 139, Potassium 2.9 L* D, Chloride 99, Carbon Dioxide 31 H, Anion Gap 11.9, BUN 27 H, Creatinine 1.40 H, Estimated Creat Clear 31, Estimated GFR 36 L, Est GFR ( Amer) 43 L, Glucose 70 L D, Calcium 8.6 03/31/24 09:16: POC Glucose 199 H I & O for Last 24 hours: Intake & Output 03/28/24 03/29/24 03/30/24 03/31/24 23:59 23:59 23:59 23:59 Intake Total 360 / 804 924 / 924 Output Total 0 / 0 600 / 600 Balance 360 / 804 324 / 324 Weight 150 lb 147 lb 12.8 oz Constitutional Constitutional: no acute distress and average body habitus *Routine HEENT Exam Head: Present normocephalic and atraumatic ENT: Present mucous membranes moist *Routine Neck Exam Neck: Present supple, full ROM and normal carotid upstroke; Absent JVD, carotid bruit or lymphadenopathy *Routine Respiratory Exam Respiratory: Present wheezes, normal respiratory effort, able to speak in complete sentences and symmetric chest movement *Routine Cardiovascular Exam Cardiovascular: Present RRR, Normal S1 and Normal S2; Absent murmur or gallop *Routine Abdominal Exam Abdominal: Present soft, normoactive bowel sounds and distended; Absent tenderness or organomegaly *Routine Extremities Exam Extremities: Present full ROM, pulses intact and normal capillary refill; Absent cyanosis, clubbing or edema *Routine Skin Exam Skin: Present intact and warm; Absent erythema *Routine Neurological Exam Neurological: Present alert, oriented X3 and CN II-XII intact; Absent sensory deficit or motor deficit Routine Psychiatric Exam Psychiatric: Present normal affect Meds Home Medications and Allergies Home Medications Medication Instructions Recorded Confirmed Type cyanocobalamin (vitamin B-12) 2,500 mcg sublingual BID 08/18/21 03/30/24 History 2,500 mcg sublingual tablet multivitamin-ferrous 1 each PO DAILY Supplement 08/18/21 03/30/24 History fumarate-folic acid 18 mg-400 mcg tablet mirabegron 25 mg tablet,extended 25 mg PO HS 09/23/23 03/30/24 History release 24 hr (Myrbetriq) ferrous gluconate 324 mg (38 mg 324 mg PO DAILY 60 days #60 tabs 11/08/23 03/30/24 Rx iron) tablet flash glucose sensor (FreeStyle #2 ea 12/06/23 03/30/24 Rx Kai 14 Day Sensor kit) nitroglycerin 0.4 mg sublingual 0.4 mg sublingual Q5M PRN chest 12/20/23 03/30/24 Rx tablet pain #30 tabs insulin glargine 100 unit/mL (3 15 unit (0.15 mL) SQ BID 60 days 12/24/23 03/30/24 Rx mL) subcutaneous pen (Lantus #18 mL Solostar U-100 Insulin) sertraline 100 mg tablet 100 mg PO DAILY depressed #90 tabs 01/14/24 03/30/24 Rx bisoprolol fumarate 5 mg tablet 2.5 mg PO HS 01/24/24 03/30/24 History fluticasone propionate 50 1 spray intranasal DAILY 01/24/24 03/30/24 History mcg/actuation nasal spray,suspension levothyroxine 50 mcg tablet 50 mcg PO HS 01/24/24 03/30/24 History verapamil 120 mg 24 hr 120 mg PO HS 01/24/24 03/30/24 History capsule,extended release isosorbide mononitrate 30 mg 15 mg PO DAILY 01/25/24 03/30/24 History tablet,extended release 24 hr lidocaine 5 % topical patch 1 patch topical Q24H 30 days #30 ea 01/26/24 03/30/24 Rx docusate sodium 100 mg capsule 100 mg PO DAILY 01/27/24 03/30/24 History rivaroxaban 15 mg tablet (Xarelto) 15 mg PO HS #30 tabs 02/11/24 03/30/24 Rx bumetanide 1 mg tablet 1 mg PO DAILY #30 tabs 02/16/24 03/30/24 Rx pen needle, diabetic 31 gauge x 03/17/24 03/30/24 History 5/16 (BD Ultra-Fine Short Pen Needle) oxycodone 5 mg tablet 2.5 mg (1/2 x 5 mg) PO Q8H PRN 03/22/24 03/30/24 Rx pain in shoulder #30 tabs pen needle, diabetic 31 gauge x #1,200 ea 03/22/24 03/30/24 History 3/16 (BD Ultra-Fine Mini Pen Needle) omeprazole 40 mg capsule,delayed 40 mg PO DAILY 03/30/24 03/30/24 History release atorvastatin 40 mg tablet 40 mg PO HS 03/31/24 03/31/24 History cetirizine 10 mg tablet 10 mg PO HS 03/31/24 03/31/24 History clopidogrel 75 mg tablet 75 mg PO DAILY 03/31/24 03/31/24 History empagliflozin 10 mg tablet 20 mg PO DAILY 03/31/24 03/31/24 History (Jardiance) New Prescriptions to Start Prescriptions: Allergies Allergy/AdvReac Type Severity Reaction Status Date / Time methylprednisolone Allergy Mild Elevated Verified 03/22/24 13:17 glucose Assessment and Plan *Assessment and plan (1) Anasarca: Status: Acute Category: Medical Code(s): R60.1 - Generalized edema (2) Abdominal ascites: Status: Acute Qualifiers: Ascites type: other type Qualified Code(s): R18.8 - Other ascites Category: Medical Code(s): R18.8 - Other ascites (3) Pleural effusion: Status: Acute Category: Medical Code(s): J90 - Pleural effusion, not elsewhere classified (4) Acute on chronic heart failure with preserved ejection fraction (HFpEF): Status: Acute Category: Medical Code(s): I50.33 - Acute on chronic diastolic (congestive) heart failure (5) Cirrhosis of liver: Status: Acute Qualifiers: Hepatic cirrhosis type: unspecified hepatic cirrhosis Ascites presence: unspecified Qualified Code(s): K74.60 - Unspecified cirrhosis of liver Category: Medical Code(s): K74.60 - Unspecified cirrhosis of liver (6) Splenomegaly: Status: Acute Category: Medical Code(s): R16.1 - Splenomegaly, not elsewhere classified (7) Aneurysm of splenic artery: Status: Acute Category: Medical Code(s): I72.8 - Aneurysm of other specified arteries (8) History of coronary artery stent placement: Status: Acute Category: Surgical Code(s): Z95.5 - Presence of coronary angioplasty implant and graft (9) Coronary artery disease: Problem Comment: Patient follows with cardiology on a regular basis. Status: Acute Qualifiers: Coronary Disease-Associated Artery/Lesion type: [place] artery [place] vs. transplanted heart: [place] heart Associated angina: with other forms of angina Qualified Code(s): I25.118 - Atherosclerotic heart disease of [place] coronary artery with other forms of angina pectoris Category: Medical Code(s): I25.10 - Atherosclerotic heart disease of [place] coronary artery without angina pectoris (10) HLD (hyperlipidemia): Status: Acute Qualifiers: Hyperlipidemia type: mixed hyperlipidemia Qualified Code(s): E78.2 - Mixed hyperlipidemia Category: Medical Code(s): E78.5 - Hyperlipidemia, unspecified (11) Diabetes mellitus type 2 in nonobese: Status: Acute Category: Medical Code(s): E11.9 - Type 2 diabetes mellitus without complications (12) Chronic Kidney Disease: Status: Acute Qualifiers: Chronic kidney disease stage: unspecified stage Qualified Code(s): N18.9 - Chronic kidney disease, unspecified Category: Medical Code(s): N18.9 - Chronic kidney disease, unspecified Plan Plan: 1. The patient was admitted to the hospital due to acute on chronic HFpEF. She was found to have right lower lobe atelectasis with moderate right pleural effusion. Will continue with IV diuresis with Bumex 1 mg IV twice daily. 2. The patient does have a history of anasarca and ascites from cirrhosis of the liver. She has not seen GI. She will need a GI referral on an outpatient basis for management of her cirrhosis of the liver and ascites. 3. Coronary artery disease is present. She does have a history of coronary stenting. Continue Plavix. Continue isosorbide. 4. Her blood pressure is well-controlled. Continue verapamil and metoprolol. 5. Her LDL goal is less than 55. She is on a statin. Will get a liver and lipid panel in the morning. 6. The patient does have a history of paroxysmal atrial fibrillation. Continue Xarelto for long-term anticoagulation. 7. The patient does have permanent pacemaker in place. This is followed in cardiology clinic. 8. The patient does have chronic kidney disease. Her creatinine is better and down to 1.4 today. Will continue to follow her renal function closely. 9. The patient is hypokalemic. She will need replacement of her potassium today. Will give her potassium chloride 40 mEq x 3 doses today. 10. Previous echo shows a normal ejection fraction with severe TR. As mentioned above she will need aggressive diuresis. 11. Continue Jardiance and bisoprolol for HFpEF. 11. Further recommendations will be made pending the patient's response to treatment. Thank you for the opportunity to participate in the care of this patient. All recommendations and orders are per Dr. Harris.
[2024-03-31] MEDS: BUMETANIDE 1MG/4ML VIAL 1 MG IV ×2 (10:51→16:28)
[2024-03-31] MEDS: POTASSIUM CHLORIDE 20MEQ TAB 40 MEQ PO ×2 (10:51→20:45)
[2024-03-31] MEDS: SPIRONOLACTONE 25MG TABLET 25 MG PO (10:52)
[2024-03-31] MEDS: KCl 10mEq/100ml 100 ML 100 MEQ IV ×3 (11:33→15:19)
[2024-03-31 12:10] VITALS: BMI 26.2
[2024-03-31 16:00] VITALS: BP 111/87; PULSE 114; RESP 16; TEMP 36.6; O2SAT 98
[2024-03-31] MEDS: RIVAROXABAN 15 MG PO (16:28)
[2024-03-31] MEDS: MULTIVITAMIN TABLET 1 EACH PO (16:28)
[2024-03-31 16:39] LABS: POC Glucose,Bedside 120 (70-110)
--- NOTE | 2024-03-31 17:02 | EXP.PN ---
Subjective *Date: 03/31/24 *Time: 17:02 Interval history: seen at bedside, breathing is better, denied CP, N/V, no SOB at rest Exam Data for Last 24 hours Vital signs and Labs for Last 24 Hours: Temp Pulse Resp BP Pulse Ox O2 Del Method 98 F 114 H 16 111/87 98 Room Air 03/31/24 16:00 03/31/24 16:00 03/31/24 16:00 03/31/24 16:00 03/31/24 16:00 03/31/24 16:35 Laboratory Results - last 24 hr 03/30/24 19:39: Lactate 1.2 03/30/24 20:31: POC Glucose 120 H 03/31/24 05:36: POC Glucose 82 03/31/24 05:53: WBC 4.9, RBC 3.74 L, Hgb 10.1 L, Hct 32.2 L, MCV 86.0, MCH 27.0, MCHC 31.4 L, RDW 16.2, Plt Count 114 L, MPV 7.7, Neut % (Auto) 67.2, Lymph % (Auto) 24.1, [place] % (Auto) 6.4, Eos % (Auto) 1.9, Baso % (Auto) 0.4, Neut # (Auto) 3.3, Lymph # (Auto) 1.2, [place] # (Auto) 0.3, Eos # (Auto) 0.1, Baso # (Auto) 0.0, Sodium 139, Potassium 2.9 L* D, Chloride 99, Carbon Dioxide 31 H, Anion Gap 11.9, BUN 27 H, Creatinine 1.40 H, Estimated Creat Clear 31, Estimated GFR 36 L, Est GFR ( Amer) 43 L, Glucose 70 L D, Calcium 8.6 03/31/24 09:16: POC Glucose 199 H 03/31/24 16:27: POC Glucose 120 H I & O for Last 24 hours: Intake & Output 03/28/24 03/29/24 03/30/24 03/31/24 23:59 23:59 23:59 23:59 Intake Total 360 / 804 1344 / 1344 Output Total 0 / 0 600 / 600 Balance 360 / 804 744 / 744 Weight 68.039 kg 67.04 kg Constitutional Constitutional: no acute distress *Routine HEENT Exam Head: Present normocephalic Eye: Present EOMI and PERRL ENT: Present mucous membranes moist *Routine Neck Exam Neck: Present supple; Absent lymphadenopathy *Routine Respiratory Exam Respiratory: Present CTA bilaterally *Routine Cardiovascular Exam Cardiovascular: Present RRR *Routine Abdominal Exam Abdominal: Present soft and normoactive bowel sounds; Absent tenderness *Routine Extremities Exam Extremities: Absent cyanosis, clubbing or edema *Routine Skin Exam Skin: Present warm; Absent rash *Routine Neurological Exam Neurological: Present alert and oriented X3 Assessment and Plan *Assessment and plan (1) Anasarca: Status: Acute Category: Medical Code(s): R60.1 - Generalized edema (2) Abdominal ascites: Status: Acute Qualifiers: Ascites type: other type Qualified Code(s): R18.8 - Other ascites Category: Medical Code(s): R18.8 - Other ascites (3) Pleural effusion: Status: Acute Category: Medical Code(s): J90 - Pleural effusion, not elsewhere classified (4) Acute on chronic heart failure with preserved ejection fraction (HFpEF): Status: Acute Category: Medical Code(s): I50.33 - Acute on chronic diastolic (congestive) heart failure (5) Cirrhosis of liver: Status: Acute Qualifiers: Hepatic cirrhosis type: unspecified hepatic cirrhosis Ascites presence: unspecified Qualified Code(s): K74.60 - Unspecified cirrhosis of liver Category: Medical Code(s): K74.60 - Unspecified cirrhosis of liver (6) Splenomegaly: Status: Acute Category: Medical Code(s): R16.1 - Splenomegaly, not elsewhere classified (7) Aneurysm of splenic artery: Status: Acute Category: Medical Code(s): I72.8 - Aneurysm of other specified arteries (8) History of coronary artery stent placement: Status: Acute Category: Surgical Code(s): Z95.5 - Presence of coronary angioplasty implant and graft (9) Coronary artery disease: Problem Comment: Patient follows with cardiology on a regular basis. Status: Acute Qualifiers: Coronary Disease-Associated Artery/Lesion type: [place] artery [place] vs. transplanted heart: [place] heart Associated angina: with other forms of angina Qualified Code(s): I25.118 - Atherosclerotic heart disease of [place] coronary artery with other forms of angina pectoris Category: Medical Code(s): I25.10 - Atherosclerotic heart disease of [place] coronary artery without angina pectoris (10) HLD (hyperlipidemia): Status: Acute Qualifiers: Hyperlipidemia type: mixed hyperlipidemia Qualified Code(s): E78.2 - Mixed hyperlipidemia Category: Medical Code(s): E78.5 - Hyperlipidemia, unspecified (11) Diabetes mellitus type 2 in nonobese: Status: Acute Category: Medical Code(s): E11.9 - Type 2 diabetes mellitus without complications (12) Chronic Kidney Disease: Status: Acute Qualifiers: Chronic kidney disease stage: unspecified stage Qualified Code(s): N18.9 - Chronic kidney disease, unspecified Category: Medical Code(s): N18.9 - Chronic kidney disease, unspecified (13) Acute on chronic congestive heart failure: Status: Acute Qualifiers: Heart failure type: unspecified Qualified Code(s): I50.9 - Heart failure, unspecified Category: Medical Code(s): I50.9 - Heart failure, unspecified (14) CKD (chronic kidney disease) stage 3, GFR 30-59 ml/min: Status: Deleted Qualifiers: Chronic kidney disease stage 3 subtype: stage 3a (GFR 45-59) Qualified Code(s): N18.31 - Chronic kidney disease, stage 3a Category: Medical Code(s): N18.30 - Chronic kidney disease, stage 3 unspecified (15) Atrial fibrillation: Status: Acute Qualifiers: Atrial fibrillation type: unspecified chronic Qualified Code(s): I48.20 - Chronic atrial fibrillation, unspecified Category: Medical Code(s): I48.91 - Unspecified atrial fibrillation Plan 88-year-old female with PMHx of IDDM, CKD, CAD, Afib, pacemaker in situ, Grade II diastolic dysfunction, with recent diagnosis of cirrhosis with ascites and anasarca back in January of this year. Patient was referred by PCP for evaluation. On arrival patient visible in respiratory difficult. IV Lasix [address] of the chest shows for right pleural effusion. There is of the labs was reviewed. Discussed with the ED for admission. I agree for inpatient management. Plan as follow: - Acute CHF, Anasarca, right pleural effusion, ascites: Cardiology consulted, appreciate their recommendations. continue IV Lasix Echo ordered daily weight and strict Is and O2s -Cirrhosis of the liver? was only radiologically diagnosed (US of the abdomen) Aneurism of the splenic: CT of the abdomen reviewed. concerned for constipation on bowel regimen Docusate BID patient might need out patient f/u with GI for cirrhosis work up A-fib Hyperlipidemia CAD - continue Plavix 75 mg daily. - Continue bisoprolol 2.5 mg nightly -Continue Jardiance 20 mg daily, continue isosorbide 15 mg daily -Continue Lipitor 40 mg nightly IDDM: accucheck before meal home lantus 15U BID sliding scale On Plavix and Xarelto On protonix Full code continue IV lasix, monitor BMP and Cr, daily weights, disucussed with cardiology and family at bedside, no plan for paracentesis for now
--- NOTE | 2024-03-31 17:06 | PC.NURSE ---
Aox 4, 90's on ra, up with assist times one, 3 runs of potassium today K of 2.9, 20g R AC sl.
[2024-03-31 20:00] VITALS: BP 107/69; PULSE 117; RESP 18; TEMP 36.6; O2SAT 96
[2024-03-31 20:08] LABS: POC Glucose,Bedside 181 (70-110)
[2024-03-31 20:10] VITALS: PULSE 111
--- NOTE | 2024-03-31 20:20 | PC.NURSE ---
PATIENTS HR IRREGULAR AND TACHYCARDIC AT 118/MIN. DENIES CHEST PAIN OR DISCOMFORT. DENIES SOA AT THIS TIME. ASH FRANCISCO APRN NOTIFIED. ORDER RECEIVED FOR 12 LEAD EKG AND CONTINOUS CARDIAC MONITORING.
--- NOTE | 2024-03-31 20:22 | ECG_ITS ---
APPROVED REPORT Exam: Resting ECG HR:105 bpm ECG Measurements Heart Rate 105 AXES QRSd 93 QRS -31 QT 333 T 143 QTc 394 Conclusion ATRIAL FIBRILLATION WITH RAPID VENTRICULAR RESPONSE LEFT AXIS DEVIATION [QRS AXIS < -30] ST DEVIATION AND MODERATE T-WAVE ABNORMALITY, CONSIDER LATERAL ISCHEMIA [-0.1+ mV T-WAVE IN I/aVL/V5/V6] ABNORMAL ECG UNCONFIRMED REPORT Electronically signed by : WENDI GRAHAM, 04/01/2024 06:50:15
[2024-03-31] MEDS: PAT OWN MED ***ATORVASTATIN 40MG 40 MG PO (20:43)
[2024-03-31] MEDS: BISOPROLOL 5 MG 2.5 MG PO (20:43)
[2024-03-31] MEDS: DOCUSATE SODIUM 100 MG PO (20:43)
[2024-03-31] MEDS: LIDOCAINE 5% TRANSDERMAL PATCH 1 EACH TP (21:31)
--- NOTE | 2024-03-31 23:22 | PC.NURSE ---
2320 PATIENT HAVING FREQUENT PVCs AND 6-8 BEAT RUNS OF V-TACH. ASYMPTOMATIC. E Q UICHACHA, AORN NOTIFIED AND CMP ORDERED STAT.
[2024-03-31 23:56] LABS: Alanine Aminotransferase 23 U/L (12-78); Albumin Level 3.5 g/dl (3.5-5.0); Albumin/Globulin Ratio 1.3 (1.1-1.8); Alkaline Phosphatase 102 U/L (38-126); Anion Gap 13.1 mEq/L (5-15); Aspartate Amino Transferase 42 U/L (14-36); Bilirubin,Total 0.7 mg/dl (0.2-1.3); Blood Urea Nitrogen 31 mg/dl (7-17); Calcium 8.6 mg/dl (8.4-10.2); Carbon Dioxide 29 mmol/L (22.0-30.0); Chloride 99 mmol/L (98-107); Creatinine Clearance Estimated 25 mL/min (50-200); Estimated Glomerular Filt Rate 28 ml/min (>60); GFR (African American) 34 ML/MIN (>60); Globulin 2.7 g/dL (1.3-3.2); Glucose 134 mg/dl (74-100); Magnesium 1.8 mg/dl (1.6-2.3); Potassium 4.1 mmoL/L (3.5-5.1); Sodium 137 mmol/L (136-145); Total Protein,Serum 6.2 g/dl (6.3-8.2)
[2024-04-01] VITALS: BP 105/68; PULSE 106; PULSE 108; RESP 16; TEMP 36.4; O2SAT 96
--- NOTE | 2024-04-01 00:14 | PC.NURSE ---
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 AFTER PACING SEQUENCE TURNED ON IT WAS FOUND THAT THE PVC s WERE ACTUALLY PACED BEATS.
[2024-04-01 04:00] VITALS: BP 100/51; PULSE 75; PULSE 85; RESP 16; TEMP 36.6; O2SAT 97; BMI 26.3
--- NOTE | 2024-04-01 05:14 | PC.NURSE ---
PATIENT CONTINUES TO HAVE AFIB INTERMITTANT WITH PACED BEATS. NO FURTHER EPISODES OF RVR. DENIES PAIN OR DISCOMFORT. FAMILY MEMBER AT BEDSIDE. VITAL SIGNS STABLE.
--- NOTE | 2024-04-01 05:38 | PC.NURSE ---
BLOOD SUGAR 78 PER PATIENTS GLUCOSE MONITOR JAYESH.
[2024-04-01] MEDS: PAT OWN MED ***LEVOTHYROXINE 50MCG 50 MCG PO (06:07)
[2024-04-01 06:57] LABS: Basophils % 0.4 % (0.1-2.0); Eosinophils # 0.1 K/mm3 (0.0-0.4); Eosinophils % 1.6 % (0.1-12.0); Hematocrit 34.4 % (37.0-47.0); Hemoglobin 10.6 g/dL (12.2-16.2); Lymphocytes # 0.9 K/mm3 (0.7-4.5); Lymphocytes % 17.7 % (10-50); Mean Corpuscular HGB Conc 30.9 g/dL (31.8-35.4); Mean Corpuscular Hemoglobin 26.7 pg (27.0-31.2); Mean Corpuscular Volume 86.4 fl (81-99); Mean Platelet Volume 8.5 fl (7.4-10.4); Monocytes # 0.3 K/mm3 (0.1-1.0); Monocytes % 5.9 % (1.7-9.3); Neutrophils # 3.9 K/mm3 (1.8-7.8); Neutrophils % 74.4 % (37.0-80.0); Platelet Count 126 K/mm3 (142-424); Red Blood Count 3.98 M/mm3 (4.20-5.40); Red Cell Distribution Width 16.7 % (11.5-17.5); White Blood Count 5.2 K/mm3 (4.8-10.8)
[2024-04-01 07:02] LABS: Chloride 102 mmol/L (98-107); Potassium 4.7 mmoL/L (3.5-5.1); Sodium 140 mmol/L (136-145)
[2024-04-01 07:05] LABS: Anion Gap 14.7 mEq/L (5-15); Blood Urea Nitrogen 28 mg/dl (7-17); Calcium 9.1 mg/dl (8.4-10.2); Carbon Dioxide 28 mmol/L (22.0-30.0); Creatinine Clearance Estimated 25 mL/min (50-200); Estimated Glomerular Filt Rate 28 ml/min (>60); GFR (African American) 34 ML/MIN (>60); Glucose 103 mg/dl (74-100)
[2024-04-01 07:14] LABS: Magnesium 1.8 mg/dl (1.6-2.3)
[2024-04-01 08:00] VITALS: BP 100/70; PULSE 70; PULSE 93; RESP 17; TEMP 36.5; O2SAT 99
[2024-04-01] MEDS: PAT OWN MED ***CLOPIDOGREL 75MG 75 MG PO (08:10)
[2024-04-01] MEDS: DOCUSATE SODIUM 100 MG PO (08:10)
[2024-04-01] MEDS: BUMETANIDE 1MG/4ML VIAL 1 MG IV (08:10)
[2024-04-01] MEDS: PAT OWN MED ***FERROUS SULFATE 325MG 325 MG PO (08:11)
[2024-04-01] MEDS: FLUTICASONE PROP 50MCG NASAL SPRAY 16GM 1 SPRAY NS (08:11)
[2024-04-01] MEDS: INSULIN GLARGINE 100 UNITS/ML 3ML FLEXPEN 15 UNIT SQ (08:11)
[2024-04-01] MEDS: ISOSORBIDE MONO 30MG TAB.ER.24H 15 MG PO (08:12)
[2024-04-01] MEDS: SPIRONOLACTONE 25MG TABLET 25 MG PO (08:12)
[2024-04-01] MEDS: POTASSIUM CHLORIDE 20MEQ TAB 40 MEQ PO (08:12)
[2024-04-01] MEDS: SERTRALINE 100 MG PO (08:12)
[2024-04-01 10:31] LABS: Alanine Aminotransferase 25 U/L (12-78); Albumin Level 3.8 g/dl (3.5-5.0); Alkaline Phosphatase 104 U/L (38-126); Aspartate Amino Transferase 42 U/L (14-36); Bilirubin,Direct 0.1 mg/dl (0.0-0.4); Bilirubin,Indirect 0.8 mg/dL (0.0-0.9); Bilirubin,Total 0.9 mg/dl (0.2-1.3); Bilirubin,Unconjugated 0.7 mg/dL (0.0-1.1); Chol/HDL Ratio 2.4 (1-3.5); Cholesterol 66 mg/dl (140-200); HDL Cholesterol 28 mg/dl (40-60); Total Protein,Serum 6.7 g/dl (6.3-8.2); Triglycerides 52 mg/dl (30-150); VLDL Cholesterol 10 mg/dL (0-40)
[2024-04-01 10:52] LABS: Direct LDL Cholesterol < 30.00 mg/dL (100-129)
[2024-04-01 11:46] VITALS: BP 101/55; PULSE 91; RESP 19; TEMP 36.6; O2SAT 97
--- NOTE | 2024-04-01 12:07 | P.DS_ITS ---
General Admission date:: 03/30/24 Discharge date: 04/01/24 HPI HPI HPI: This is a 88-year-old female with PMHx of IDDM, CKD, CAD, Afib, pacemaker in situ, Grade II diastolic dysfunction, with recent diagnosis of cirrhosis with ascites and anasarca back in January of this year. Patient was referred by PCP for evaluation. Patient has had 1 paracentesis with minimal drainage according to the patient. That happened during an admission in January however patient has not been referred to hepatology for further characterization of her liver disease. Last labs done by her PCP were in February. Patient states that she has exercise intolerance, dyspnea on exertion even at rest, orthopnea, and feels like that she cannot breathe at the moment due to how tight my belly is. History also obtained form daughter at bedside. They called her PCP who told her to come to the emergency department for evaluation. Patient currently denies chest pain fever chills hemoptysis hematochezia melena nausea vomiting diarrhea. She does not know how much she weighs or if she is gaining weight recently. Admitted for further management. Hospital Course Hospital Course Hospital Course: 88-year-old female with PMHx of IDDM, CKD, CAD, Afib, pacemaker in situ, Grade II diastolic dysfunction, with recent diagnosis of cirrhosis with ascites and anasarca back in January of this year. Patient was referred by PCP for evaluation. - Acute CHF, Anasarca, right pleural effusion, ascites: - improved after diuresis, plan is to switch to oral bumex and DC with follow up with cardiology -Cirrhosis of the liver? was only radiologically diagnosed (US of the abdomen) Aneurism of the splenic: CT of the abdomen reviewed. concerned for constipation on bowel regimen Docusate BID patient might need out patient f/u with GI for cirrhosis work up as outpatient On the date of discharge, the patient reported feeling stable. The patient was found not to be in any acute distress, and no new abnormalities on physical examination. Further, the patient expressed appropriate understanding of, and agreement with, the discharge recommendations, medications, and plan. Exam Data for Last 24 hours Vital signs and Labs for Last 24 Hours: Temp Pulse Resp BP Pulse Ox O2 Del Method 98 F 91 H 19 101/55 L 97 Room Air 04/01/24 11:46 04/01/24 11:46 04/01/24 11:46 04/01/24 11:46 04/01/24 11:46 04/01/24 11:46 Laboratory Results - last 24 hr 03/31/24 16:27: POC Glucose 120 H 03/31/24 19:55: POC Glucose 181 H 03/31/24 23:35: Sodium 137, Potassium 4.1 D, Chloride 99, Carbon Dioxide 29, Anion Gap 13.1, BUN 31 H, Creatinine 1.70 H D, Estimated Creat Clear 25, Estimated GFR 28 L, Est GFR ( Amer) 34 L D, Glucose 134 H D, Calcium 8.6, Magnesium 1.8, Total Bilirubin 0.7, AST 42 H, ALT 23, Alkaline Phosphatase 102, Total Protein 6.2 L, Albumin 3.5 D, Globulin 2.7, Albumin/Globulin Ratio 1.3 04/01/24 06:30: Total Bilirubin 0.9, Direct Bilirubin 0.1, Conjugated Bilirubin 0.0, Indirect Bilirubin 0.8, Unconjugated Bilirubin 0.7, AST 42 H, ALT 25, Alkaline Phosphatase 104, Total Protein 6.7, Albumin 3.8, Triglycerides 52, Cholesterol 66 L, LDL Cholesterol Direct < 30.00 L, VLDL Cholesterol 10, HDL Cholesterol 28 L, Cholesterol/HDL Ratio 2.4 04/01/24 06:35: WBC 5.2, RBC 3.98 L, Hgb 10.6 L, Hct 34.4 L, MCV 86.4, MCH 26.7 L, MCHC 30.9 L, RDW 16.7, Plt Count 126 L, MPV 8.5, Neut % (Auto) 74.4, Lymph % (Auto) 17.7, [place] % (Auto) 5.9, Eos % (Auto) 1.6, Baso % (Auto) 0.4, Neut # (Auto) 3.9, Lymph # (Auto) 0.9, [place] # (Auto) 0.3, Eos # (Auto) 0.1, Baso # (Auto) 0.0, Sodium 140, Potassium 4.7, Chloride 102, Carbon Dioxide 28, Anion Gap 14.7, BUN 28 H, Creatinine 1.70 H, Estimated Creat Clear 25, Estimated GFR 28 L, Est GFR ( Amer) 34 L, Glucose 103 H D, Calcium 9.1, Magnesium 1.8 I & O for Last 24 hours: Intake & Output 03/29/24 03/30/24 03/31/24 04/01/24 23:59 23:59 23:59 23:59 Intake Total 360 / 804 1704 / 2064 600 / 600 Output Total 0 / 0 2200 / 2200 950 / 950 Balance 360 / 804 -496 / -136 -350 / -350 Weight 68.039 kg 67.04 kg 67.358 kg Constitutional Constitutional: no acute distress *Routine HEENT Exam Head: Present normocephalic Eye: Present EOMI and PERRL ENT: Present mucous membranes moist *Routine Neck Exam Neck: Present supple; Absent lymphadenopathy *Routine Respiratory Exam Respiratory: Present CTA bilaterally *Routine Cardiovascular Exam Cardiovascular: Present RRR *Routine Abdominal Exam Abdominal: Present soft and normoactive bowel sounds; Absent tenderness *Routine Extremities Exam Extremities: Absent cyanosis, clubbing or edema *Routine Skin Exam Skin: Present warm; Absent rash *Routine Neurological Exam Neurological: Present alert and oriented X3 Results Data Completed and Pending Labs on day of discharge: Labs from last 24 hours 04/01/24 04/01/24 03/31/24 06:35 06:30 23:35 WBC 5.2 RBC 3.98 L Hgb 10.6 L Hct 34.4 L MCV 86.4 MCH 26.7 L MCHC 30.9 L RDW 16.7 Plt Count 126 L MPV 8.5 Neut % (Auto) 74.4 Lymph % (Auto) 17.7 [place] % (Auto) 5.9 Eos % (Auto) 1.6 Baso % (Auto) 0.4 Neut # (Auto) 3.9 Lymph # (Auto) 0.9 [place] # (Auto) 0.3 Eos # (Auto) 0.1 Baso # (Auto) 0.0 Sodium 140 137 Potassium 4.7 4.1 D Chloride 102 99 Carbon Dioxide 28 29 Anion Gap 14.7 13.1 BUN 28 H 31 H Creatinine 1.70 H 1.70 H D Estimated Creat Clear 25 25 Estimated GFR 28 L 28 L Est GFR ( Amer) 34 L 34 L D Glucose 103 H D 134 H D POC Glucose Calcium 9.1 8.6 Magnesium 1.8 1.8 Total Bilirubin 0.9 0.7 Direct Bilirubin 0.1 Conjugated Bilirubin 0.0 Indirect Bilirubin 0.8 Unconjugated Bilirubin 0.7 AST 42 H 42 H ALT 25 23 Alkaline Phosphatase 104 102 Total Protein 6.7 6.2 L Albumin 3.8 3.5 D Globulin 2.7 Albumin/Globulin Ratio 1.3 Triglycerides 52 Cholesterol 66 L LDL Cholesterol Direct < 30.00 L VLDL Cholesterol 10 HDL Cholesterol 28 L Cholesterol/HDL Ratio 2.4 03/31/24 03/31/24 19:55 16:27 WBC RBC Hgb Hct MCV MCH MCHC RDW Plt Count MPV Neut % (Auto) Lymph % (Auto) [place] % (Auto) Eos % (Auto) Baso % (Auto) Neut # (Auto) Lymph # (Auto) [place] # (Auto) Eos # (Auto) Baso # (Auto) Sodium Potassium Chloride Carbon Dioxide Anion Gap BUN Creatinine Estimated Creat Clear Estimated GFR Est GFR ( Amer) Glucose POC Glucose 181 H 120 H Calcium Magnesium Total Bilirubin Direct Bilirubin Conjugated Bilirubin Indirect Bilirubin Unconjugated Bilirubin AST ALT Alkaline Phosphatase Total Protein Albumin Globulin Albumin/Globulin Ratio Triglycerides Cholesterol LDL Cholesterol Direct VLDL Cholesterol HDL Cholesterol Cholesterol/HDL Ratio DS: Diagnosis Discharge Diagnosis (1) Anasarca: Status: Acute Code(s): R60.1 - Generalized edema (2) Abdominal ascites: Status: Acute Code(s): R18.8 - Other ascites Qualifiers: Ascites type: other type Qualified Code(s): R18.8 - Other ascites (3) Pleural effusion: Status: Acute Code(s): J90 - Pleural effusion, not elsewhere classified (4) Acute on chronic heart failure with preserved ejection fraction (HFpEF): Status: Acute Code(s): I50.33 - Acute on chronic diastolic (congestive) heart failure (5) Cirrhosis of liver: Status: Acute Code(s): K74.60 - Unspecified cirrhosis of liver Qualifiers: Ascites presence: unspecified Hepatic cirrhosis type: unspecified hepatic cirrhosis Qualified Code(s): K74.60 - Unspecified cirrhosis of liver (6) Splenomegaly: Status: Acute Code(s): R16.1 - Splenomegaly, not elsewhere classified (7) Aneurysm of splenic artery: Status: Acute Code(s): I72.8 - Aneurysm of other specified arteries (8) History of coronary artery stent placement: Status: Acute Code(s): Z95.5 - Presence of coronary angioplasty implant and graft (9) Coronary artery disease: Status: Acute Code(s): I25.10 - Atherosclerotic heart disease of [place] coronary artery without angina pectoris Qualifiers: Associated angina: with other forms of angina Coronary Disease- Associated Artery/Lesion type: [place] artery [place] vs. transplanted heart: [place] heart Qualified Code(s): I25.118 - Atherosclerotic heart disease of [place] coronary artery with other forms of angina pectoris Problem details: Patient follows with cardiology on a regular basis. (10) HLD (hyperlipidemia): Status: Acute Code(s): E78.5 - Hyperlipidemia, unspecified Qualifiers: Hyperlipidemia type: mixed hyperlipidemia Qualified Code(s): E78.2 - Mixed hyperlipidemia (11) Diabetes mellitus type 2 in nonobese: Status: Acute Code(s): E11.9 - Type 2 diabetes mellitus without complications (12) Chronic Kidney Disease: Status: Acute Code(s): N18.9 - Chronic kidney disease, unspecified Qualifiers: Chronic kidney disease stage: unspecified stage Qualified Code(s): N18.9 - Chronic kidney disease, unspecified (13) Acute on chronic congestive heart failure: Status: Acute Code(s): I50.9 - Heart failure, unspecified Qualifiers: Heart failure type: unspecified Qualified Code(s): I50.9 - Heart failure, unspecified (14) CKD (chronic kidney disease) stage 3, GFR 30-59 ml/min: Status: Deleted Code(s): N18.30 - Chronic kidney disease, stage 3 unspecified Qualifiers: Chronic kidney disease stage 3 subtype: stage 3a (GFR 45-59) Qualified Code(s): N18.31 - Chronic kidney disease, stage 3a (15) Atrial fibrillation: Status: Acute Code(s): I48.91 - Unspecified atrial fibrillation Qualifiers: Atrial fibrillation type: unspecified chronic Qualified Code(s): I48.20 - Chronic atrial fibrillation, unspecified Meds Home Medications and Allergies Home Medications Medication Instructions Recorded Confirmed Type cyanocobalamin (vitamin B-12) 2,500 mcg sublingual BID 08/18/21 03/30/24 History 2,500 mcg sublingual tablet multivitamin-ferrous 1 each PO DAILY Supplement 08/18/21 03/30/24 History fumarate-folic acid 18 mg-400 mcg tablet mirabegron 25 mg tablet,extended 25 mg PO HS 09/23/23 03/30/24 History release 24 hr (Myrbetriq) ferrous gluconate 324 mg (38 mg 324 mg PO DAILY 60 days #60 tabs 11/08/23 03/30/24 Rx iron) tablet flash glucose sensor (FreeStyle #2 ea 12/06/23 03/30/24 Rx Kai 14 Day Sensor kit) nitroglycerin 0.4 mg sublingual 0.4 mg sublingual Q5M PRN chest 12/20/23 03/30/24 Rx tablet pain #30 tabs insulin glargine 100 unit/mL (3 15 unit (0.15 mL) SQ BID 60 days 12/24/23 03/30/24 Rx mL) subcutaneous pen (Lantus #18 mL Solostar U-100 Insulin) sertraline 100 mg tablet 100 mg PO DAILY depressed #90 tabs 01/14/24 03/30/24 Rx bisoprolol fumarate 5 mg tablet 2.5 mg PO HS 01/24/24 03/30/24 History fluticasone propionate 50 1 spray intranasal DAILY 01/24/24 03/30/24 History mcg/actuation nasal spray,suspension levothyroxine 50 mcg tablet 50 mcg PO HS 01/24/24 03/30/24 History verapamil 120 mg 24 hr 120 mg PO HS 01/24/24 03/30/24 History capsule,extended release isosorbide mononitrate 30 mg 15 mg PO DAILY 01/25/24 03/30/24 History tablet,extended release 24 hr lidocaine 5 % topical patch 1 patch topical Q24H 30 days #30 ea 01/26/24 03/30/24 Rx docusate sodium 100 mg capsule 100 mg PO DAILY 01/27/24 03/30/24 History rivaroxaban 15 mg tablet (Xarelto) 15 mg PO HS #30 tabs 02/11/24 03/30/24 Rx bumetanide 1 mg tablet 1 mg PO DAILY #30 tabs 02/16/24 03/30/24 Rx pen needle, diabetic 31 gauge x 03/17/24 03/30/24 History 5/16 (BD Ultra-Fine Short Pen Needle) oxycodone 5 mg tablet 2.5 mg (1/2 x 5 mg) PO Q8H PRN 03/22/24 03/30/24 Rx pain in shoulder #30 tabs pen needle, diabetic 31 gauge x #1,200 ea 03/22/24 03/30/24 History 3/16 (BD Ultra-Fine Mini Pen Needle) omeprazole 40 mg capsule,delayed 40 mg PO DAILY 03/30/24 03/30/24 History release atorvastatin 40 mg tablet 40 mg PO HS 03/31/24 03/31/24 History cetirizine 10 mg tablet 10 mg PO HS 03/31/24 03/31/24 History clopidogrel 75 mg tablet 75 mg PO DAILY 03/31/24 03/31/24 History empagliflozin 10 mg tablet 20 mg PO DAILY 03/31/24 03/31/24 History (Jardiance) New Prescriptions to Start Prescriptions: Allergies Allergy/AdvReac Type Severity Reaction Status Date / Time methylprednisolone Allergy Mild Elevated Verified 03/22/24 13:17 glucose Discharge Plan Disposition Patient Disposition: Home, Self-Care Condition: Good Follow up Plan Follow up with: Richard Gutiérrez DO [Primary Care Provider] - 1 week Prescriptions/Medication Reconciliation: Continued docusate sodium 100 mg capsule 100 mg PO DAILY Patient Comments: TAKE ONE CAPSULE BY MOUTH EVERY DAY FOR CONSTIPATION bumetanide 1 mg tablet 1 mg PO DAILY Qty: 30 2RF (DME) pen needle, diabetic [BD Ultra-Fine Mini Pen Needle] 31 gauge x 3/16 needle See Rx Instructions .ROUTE .MEDSUPPLY Qty: 1200 Patient Comments: USE as directed TWICE DAILY with insulin Rx Instructions: As directed oxycodone 5 mg tablet 2.5 mg PO Q8H PRN (Reason: pain in shoulder) Qty: 30 0RF nitroglycerin 0.4 mg tablet, sublingual 0.4 mg sublingual Q5M PRN (Reason: chest pain) Qty: 30 3RF Rx Instructions: do not exceed 3 doses per episode insulin glargine [Lantus Solostar U-100 Insulin] 100 unit/mL (3 mL) insulin pen 15 unit SQ BID 60 Days Qty: 18 4RF Xarelto 15 mg tablet 15 mg PO HS Qty: 30 3RF Hold Instructions: resume after shoulder injection Rx Instructions: TAKE ONE TABLET BY MOUTH EVERY EVENING --TAKE WITH FOOD-- ferrous gluconate 324 mg (38 mg iron) tablet 324 mg PO DAILY 60 Days Qty: 60 2RF (DME) FreeStyle Kai 14 Day Sensor Kit See Rx Instructions .Route Qty: 2 4RF Rx Instructions: As directed sertraline 100 mg tablet 100 mg PO DAILY Qty: 90 0RF (DME) pen needle, diabetic [BD Ultra-Fine Short Pen Needle] 31 gauge x 5/16 needle See Rx Instructions .ROUTE Rx Instructions: As directed or bid No. 5 cyanocobalamin (vitamin B-12) 2,500 MCG tablet, sublingual 2,500 mcg sublingual BID [id number] acid 1 EACH tablet 1 each PO DAILY bisoprolol fumarate 5 mg tablet 2.5 mg PO HS levothyroxine 50 mcg tablet 50 mcg PO HS Rx Instructions: PATIENT TAKES AT BEDTIME AT HOME. fluticasone propionate 50 mcg/actuation spray,suspension 1 spray intranasal DAILY Rx Instructions: instill 1 SPRAY IN EACH NOSTRIL DAILY FOR ALLERGY symptoms verapamil 120 mg capsule,ext rel. pellets 24 hr 120 mg PO HS isosorbide mononitrate 30 mg tablet extended release 24 hr 15 mg PO DAILY Patient Comments: TAKE 1/2 TABLET BY MOUTH EVERY DAY FOR CHEST pain lidocaine 5 % Adhesive Patch,Medicated 1 patch topical Q24H 30 Days Qty: 30 0RF mirabegron [Myrbetriq] 25 mg tablet extended release 24 hr 25 mg PO HS omeprazole 40 mg Capsule,Delayed Release(Dr/Ec) 40 mg PO DAILY atorvastatin 40 mg tablet 40 mg PO HS Patient Comments: TAKE ONE TABLET BY MOUTH EVERY DAY clopidogrel 75 mg tablet 75 mg PO DAILY Jardiance 10 mg tablet 20 mg PO DAILY Patient Comments: TAKE TWO TABLETS BY MOUTH EVERY DAY FOR heart disease cetirizine 10 mg tablet 10 mg PO HS Rx Instructions: TAKE ONE TABLET BY MOUTH EVERY DAY AT BEDTIME FOR ALLERGIES Problem Reconciliation Problems Reviewed?: Yes Patient Discharge Instructions ACTIVITY: Ambulate as tolerated DIET: continue same diet and low salt diet Patient Instructions: DI for Heart Failure, DI for Pleural Effusion Providers Primary Care Provider: Richard Gutiérrez Admit Provider: Pauline Bruce Attending Provider: Pauline Bruce
--- NOTE | 2024-04-04 13:32 | CARE MANAGER ---
Contacted patient related to hospital discharge. She states she feels better. She denies any questions or concerns and has made her follow up appointments for next week. BRANDYN Duvall
== END 2024-04-01 12:55 | disposition home or self-care (01) ==
LOC: ER 16:21 → 2ND 16:38
PROVIDERS: Nurse Practitioner Family; Physician Assistant; Admitting Provider Internal Medicine; Emergency Provider Student in an Organized Health Care Education/Training Program; PCP Internal Medicine; Visit Provider Internal Medicine
DX: I13.0 Hypertensive heart and chronic kidney disease with heart failure and stage 1 through stage 4 chronic kidney disease, or unspecified chronic kidney disease; R18.8 Other ascites; K74.60 Unspecified cirrhosis of liver; N18.31 Chronic kidney disease, stage 3a; I72.8 Aneurysm of other specified arteries; I25.118 Atherosclerotic heart disease of native coronary artery with other forms of angina pectoris; I48.20 Chronic atrial fibrillation, unspecified; R60.1 Generalized edema; I50.33 Acute on chronic diastolic (congestive) heart failure; R16.1 Splenomegaly, not elsewhere classified; Z95.5 Presence of coronary angioplasty implant and graft; E78.2 Mixed hyperlipidemia; E11.22 Type 2 diabetes mellitus with diabetic chronic kidney disease; Z79.4 Long term (current) use of insulin; E78.5 Hyperlipidemia, unspecified; Z79.01 Long term (current) use of anticoagulants; Z95.0 Presence of cardiac pacemaker; I42.9 Cardiomyopathy, unspecified
CPT/HCPCS: 36415; 71250; 74176; 80048; 80053; 80061; 80076; 81001; 82140; 82803; 82962; 83605; 83690; 83735; 83880; 85025; 85610; 86850; 93005; 99285; G0378; J1940; J3480

== ENCOUNTER 2024-05-15 12:11 | Outpatient (CLI) | payer MEDICARE, MEDICAID, SELFPAY | END 2024-05-15 23:59 | disposition home or self-care (01) | LOC: LAB.DROPOF 05-16 14:56 | PROVIDERS: PCP Internal Medicine; Visit Provider Internal Medicine | DX: N39.0 Urinary tract infection, site not specified (principal) | CPT/HCPCS: 87086; 87186 ==

== ENCOUNTER 2024-05-24 19:00 | Emergency (ER) | payer MEDICARE, MEDICAID, SELFPAY ==
--- NOTE | 2024-05-24 | ECG_ITS ---
APPROVED REPORT Exam: Resting ECG HR:106 bpm ECG Measurements Heart Rate 106 AXES QRSd 98 QRS 114 QT 343 T -72 QTc 405 Conclusion A-fib RVR. T wave inversions V5, V6, 2, 3, aVF without reciprocal change Electronically signed by : MANUEL LUBIN, 05/26/2024 23:21:42
--- NOTE | 2024-05-24 19:11 | HMH.EDGENADL ---
Discharge Plan Disposition Patient Disposition: Home, Self-Care Condition: Good Prescriptions Prescriptions: No Action (DME) pen needle, diabetic [BD Ultra-Fine Mini Pen Needle] 31 gauge x 3/16 needle See Rx Instructions .ROUTE .MEDSUPPLY Qty: 1200 Patient Comments: USE as directed TWICE DAILY with insulin Rx Instructions: As directed oxycodone 5 mg tablet 2.5 mg PO Q8H PRN (Reason: pain in shoulder) Qty: 30 0RF sulfamethoxazole-trimethoprim [Bactrim] 400-80 mg tablet 1 tab PO BID 10 Days Qty: 20 0RF insulin glargine [Lantus Solostar U-100 Insulin] 100 unit/mL (3 mL) insulin pen 11 unit SQ BID 60 Days Qty: 13.2 4RF Rx Instructions: 13 IU sq in AM, then 11 IU sq in PM nitroglycerin 0.4 mg tablet, sublingual 0.4 mg sublingual Q5M PRN (Reason: chest pain) Qty: 30 3RF Rx Instructions: do not exceed 3 doses per episode Xarelto 15 mg tablet 15 mg PO HS Qty: 30 3RF Rx Instructions: TAKE ONE TABLET BY MOUTH EVERY EVENING --TAKE WITH FOOD-- ferrous gluconate 324 mg (38 mg iron) tablet 324 mg PO DAILY 60 Days Qty: 60 2RF (DME) pen needle, diabetic [BD Ultra-Fine Short Pen Needle] 31 gauge x 5/16 needle See Rx Instructions .Route Rx Instructions: As directed or bid No. 5 (DME) [facility] [place] [facility] [place] Instructions .ROUTE .COMPLEX Qty: 1 3RF Dose Instruction: USE DIRECTED FOR continuous glucose monitoring (OR TWICE DAILY) Rx Instructions: USE DIRECTED FOR continuous glucose monitoring (OR TWICE DAILY) omeprazole 40 mg capsule,delayed release(DR/EC) See Rx Instructions .ROUTE .COMPLEX Qty: 90 0RF Dose Instruction: TAKE ONE CAPSULE BY MOUTH EVERY DAY Rx Instructions: TAKE ONE CAPSULE BY MOUTH EVERY DAY verapamil 120 mg capsule,ext rel. pellets 24 hr See Rx Instructions .ROUTE .COMPLEX Qty: 90 0RF Dose Instruction: TAKE ONE CAPSULE BY MOUTH EVERY DAY Rx Instructions: TAKE ONE CAPSULE BY MOUTH EVERY DAY sertraline 100 mg tablet See Rx Instructions .ROUTE .COMPLEX Qty: 90 0RF Dose Instruction: TAKE ONE TABLET BY MOUTH EVERY DAY Rx Instructions: TAKE ONE TABLET BY MOUTH EVERY DAY docusate sodium 100 mg capsule See Rx Instructions .ROUTE .COMPLEX Qty: 90 1RF Dose Instruction: TAKE ONE CAPSULE BY MOUTH EVERY DAY FOR CONSTIPATION Rx Instructions: TAKE ONE CAPSULE BY MOUTH EVERY DAY FOR CONSTIPATION mirabegron [Myrbetriq] 25 mg tablet extended release 24 hr See Rx Instructions .ROUTE .COMPLEX Qty: 60 3RF Dose Instruction: TAKE ONE TABLET BY MOUTH EVERY DAY FOR BLADDER Rx Instructions: TAKE ONE TABLET BY MOUTH EVERY DAY FOR BLADDER mecobalamin (vitamin B12) 5,000 mcg tablet,chewable 5,000 mcg PO DAILY Qty: 90 0RF bumetanide 1 mg tablet See Rx Instructions .ROUTE .COMPLEX Qty: 90 2RF Dose Instruction: TAKE ONE TABLET BY MOUTH EVERY DAY Rx Instructions: TAKE ONE TABLET BY MOUTH EVERY DAY ondansetron 4 mg tablet,disintegrating See Rx Instructions .ROUTE .COMPLEX Qty: 120 0RF Dose Instruction: DISSOLVE ONE TABLET in MOUTH EVERY 6 HOURS FOR NAUSEA AND VOMITING Rx Instructions: DISSOLVE ONE TABLET in MOUTH EVERY 6 HOURS FOR NAUSEA AND VOMITING rcxencvixzqn-bdvy-cuukn acid 1 EACH tablet 1 each PO DAILY bisoprolol fumarate 5 mg tablet 2.5 mg PO HS levothyroxine 50 mcg tablet 50 mcg PO HS Rx Instructions: PATIENT TAKES AT BEDTIME AT HOME. fluticasone propionate 50 mcg/actuation spray,suspension 1 spray intranasal DAILY Rx Instructions: instill 1 SPRAY IN EACH NOSTRIL DAILY FOR ALLERGY symptoms isosorbide mononitrate 30 mg tablet extended release 24 hr 15 mg PO DAILY Patient Comments: TAKE 1/2 TABLET BY MOUTH EVERY DAY FOR CHEST pain lidocaine 5 % Adhesive Patch,Medicated 1 patch topical Q24H 30 Days Qty: 30 0RF atorvastatin 40 mg tablet 40 mg PO HS Patient Comments: TAKE ONE TABLET BY MOUTH EVERY DAY clopidogrel 75 mg tablet 75 mg PO DAILY Jardiance 10 mg tablet 20 mg PO DAILY Patient Comments: TAKE TWO TABLETS BY MOUTH EVERY DAY FOR heart disease cetirizine 10 mg tablet 10 mg PO HS Rx Instructions: TAKE ONE TABLET BY MOUTH EVERY DAY AT BEDTIME FOR ALLERGIES Referrals Follow up/Referrals: Jeremiah Olivares [Referring] - See instructions (Chronic and worsening ascites) Richard Gutiérrez DO [Primary Care Provider] - See instructions Connie Bates MD [Physician] - See instructions (Chronic right pleural effusion, evaluate for diagnostic thoracentesis.) Activity Restrictions/Add. Instructions Additional Instructions/Restrictions: Please follow-up with your PCP within 48 hours for recheck. I referred you both to pulmonology and gastroenterology. Please call in the morning to schedule an appointment. Return to ER for any worsening signs or symptoms as needed. Clinical Impressions Clinical Impression: Pleural effusion, Ascites Abdominal pain Qualifiers: Abdominal location: left upper quadrant Qualified Code(s): R10.12 - Left upper quadrant pain Instructions Patient Instructions: DI for Acute Abdominal Pain Print Language Print Language: Slovenian Discharge ED Provider: Steven Hernandez General Adult HPI <RENNY Harvey - Last Filed: 05/24/24 21:22> General Chief complaint: Abdominal Pain Stated complaint: left side pain Time Seen by Provider: 05/24/24 19:04 History of Present Illness HPI narrative: Patient presents for evaluation of left thoracicoabdominal pain. Patient has a past medical history of CHF with a known right pleural effusion, history of cirrhosis and ascites. Patient reports that she has had increasing pain under my rib cage on the left side has gotten worse acutely today. She denies any fever chills hemoptysis hematochezia melena nausea vomiting diarrhea. Related Data Home Medications ?Medication ?Instructions ?Recorded ?Confirmed multivitamin-ferrous 1 each PO DAILY Supplement 08/18/21 05/15/24 fumarate-folic acid 18 mg-400 mcg tablet bisoprolol fumarate 5 mg tablet 2.5 mg PO HS 01/24/24 05/15/24 fluticasone propionate 50 1 spray intranasal DAILY 01/24/24 05/15/24 mcg/actuation nasal spray,suspension levothyroxine 50 mcg tablet 50 mcg PO HS 01/24/24 05/15/24 isosorbide mononitrate 30 mg 15 mg PO DAILY 01/25/24 05/15/24 tablet,extended release 24 hr pen needle, diabetic 31 gauge x 03/17/24 05/15/2402/16 (BD Ultra-Fine Short Pen Needle) pen needle, diabetic 31 gauge x #1,200 ea 03/22/24 05/15/2412/17 (BD Ultra-Fine Mini Pen Needle) atorvastatin 40 mg tablet 40 mg PO HS 03/31/24 05/15/24 cetirizine 10 mg tablet 10 mg PO HS 06/28/24 08/12/24 clopidogrel 75 mg tablet 75 mg PO DAILY 03/31/24 05/15/24 empagliflozin 10 mg tablet 20 mg PO DAILY 03/31/24 05/15/24 (Jardiance) Previous Rx's ?Medication ?Instructions ?Recorded ferrous gluconate 324 mg (38 mg 324 mg PO DAILY 60 days #60 tabs 11/08/23 iron) tablet nitroglycerin 0.4 mg sublingual 0.4 mg sublingual Q5M PRN chest 12/20/23 tablet pain #30 tabs lidocaine 5 % topical patch 1 patch topical Q24H 30 days #30 ea 01/26/24 rivaroxaban 15 mg tablet (Xarelto) 15 mg PO HS #30 tabs 02/11/24 oxycodone 5 mg tablet 2.5 mg (1/2 x 5 mg) PO Q8H PRN 03/22/24 pain in shoulder #30 tabs flash glucose scanning reader #1 ea 04/03/24 (FreeBegunyle Kai 2 [place]) omeprazole 40 mg capsule,delayed See Rx Instructions .Route 04/10/24 release .COMPLEX #90 caps verapamil 120 mg 24 hr See Rx Instructions .Route 04/10/24 capsule,extended release .COMPLEX #90 caps sertraline 100 mg tablet See Rx Instructions .Route 04/14/24 .COMPLEX #90 tabs docusate sodium 100 mg capsule See Rx Instructions .Route 04/24/24 .COMPLEX #90 caps mirabegron 25 mg tablet,extended See Rx Instructions .Route 05/02/24 release 24 hr (Myrbetriq) .COMPLEX #60 tabs insulin glargine 100 unit/mL (3 11 unit (0.11 mL) SQ BID 60 days 05/15/24 mL) subcutaneous pen (Lantus #13.2 mL Solostar U-100 Insulin) sulfamethoxazole 400 1 tab PO BID 10 days #20 tabs 05/15/24 mg-trimethoprim 80 mg tablet (Bactrim) mecobalamin (vitamin B12) 5,000 5,000 mcg PO DAILY vitamin B12 05/18/24 mcg chewable tablet deficiency #90 tabs bumetanide 1 mg tablet See Rx Instructions .Route 05/22/24 .COMPLEX #90 tabs ondansetron 4 mg disintegrating See Rx Instructions .Route 05/23/24 tablet .COMPLEX #120 ea Allergies Allergy/AdvReac Type Severity Reaction Status Date / Time methylprednisolone Allergy Mild Elevated Verified 05/15/24 13:26 glucose [facility] <RENNY Harvey - Last Filed: 05/24/24 21:22> [facility] Disclaimer: The information contained in this section may have been updated after the patient was seen, as this information can be updated by other users. Medical History Chronic Kidney Disease Acute on chronic heart failure with preserved ejection fraction (HFpEF) Seasonal allergies Hyperlipemia Hypertension Atypical angina Abnormal cardiovascular stress test Nausea vomiting and diarrhea Atypical chest pain Fatigue Gastroenteritis Arthritis History of anemia History of gastroesophageal reflux (GERD) Diabetes mellitus, type 2 History of cataract Arrhythmia History of pacemaker History of left heart catheterization (LHC) Gastritis Acute blood loss anemia (ABLA) Hyperglycemia Angina at rest Hyperglycemia without ketosis PAF (paroxysmal atrial fibrillation) Acute kidney injury DKA (diabetic ketoacidosis) Dyspnea Lactose intolerance Strep throat Pancytopenia 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 Acute renal insufficiency Cardiogenic shock Diabetes Pre-syncope Contusion of sternum Fatigue SOB (shortness of breath) on exertion Leg pain, bilateral HLD (hyperlipidemia) Angina pectoris Cardiac pacemaker in situ will check labs SSS (sick sinus syndrome) HTN (hypertension) Pulmonary HTN Chest wall pain following surgery Report soreness r/t post op pacemaker Coronary artery disease Surgical History History of esophagogastroduodenoscopy (EGD) Hx of tonsillectomy History of colonoscopy History of hysterectomy History of appendectomy History of cholecystectomy Family History Other No significant family history Social History Smoking Status: Unknown if ever smoked second hand exposure: No alcohol intake: never substance use type: denies use current occupational status: disabled Travel in the last 8 weeks: Inside the [place] household members: family housing: house caffeine: No <RENNY Harvey - Last Filed: 05/24/24 21:22> ROS Obtained: Yes Systems reviewed as appropriate & no additional complaints except as documented Physical Exam <RENNY Harvey - Last Filed: 05/24/24 21:22> General General appearance: alert and in no apparent distress Head Head exam: atraumatic and normal inspection Eye Eye exam: Present normal appearance, PERRL and EOMI ENT ENT exam: Present normal exam, normal oropharynx and mucous membranes moist Neck Neck exam: Present normal inspection, full ROM and trachea midline; Absent lymphadenopathy Chest Chest inspection: Present normal inspection and symmetric chest wall rise Respiratory Respiratory exam: Present normal lung sounds bilaterally; Absent accessory muscle use Cardiovascular Cardiovascular exam: Present regular rate, normal rhythm, normal heart sounds, +S1 and +S2 Abdominal Exam Abdominal exam: Present soft and normal bowel sounds; Absent tenderness, guarding or rebound Extremities Exam Extremities exam: Present normal inspection and full ROM Neurological Exam Neurological exam: Present alert, oriented X3 and CN II-XII intact Psychiatric Psychiatric exam: Present normal affect and normal mood Skin Skin exam: Present warm, dry and normal color Lymphatic Lymphatic Findings: no adenopathy Medical Decision Making <RENNY Harvey - Last Filed: 05/24/24 21:22> Medical Records Medical records reviewed: Yes I reviewed the patient's medical records. Thomas Inquiry Pt receiving controlled substance: No Vital Signs: 05/24/24 19:14 05/24/24 19:30 05/24/24 21:35 Temperature 98.3 F 97.8 F Temperature Source Oral Pulse Rate 93 H 129 H Pulse Rate [Right Brachial] 100 H Respiratory Rate 20 14 18 Blood Pressure 129/90 131/84 Blood Pressure [Right Arm] 130/83 Blood Pressure Mean 102 Blood Pressure Mean [Right Arm] 98 Blood Pressure Source [Right Arm] Automatic Cuff Blood Pressure Position [Right Arm] Sitting 02 Sat by Pulse Oximetry 99 98 Oxygen Delivery Method Room Air Room Air Room Air Lab Data Lab results reviewed: Yes I reviewed the patient's lab results. Lab Results 05/24/24 19:27: WBC 5.8, RBC 4.22, Hgb 11.2 L, Hct 36.9 L, MCV 87.4, MCH 26.6 L, MCHC 30.4 L, RDW 17.6 H, Plt Count 140 L, MPV 7.9, Neut % (Auto) 72.8, Lymph % (Auto) 18.5, Bath % (Auto) 5.8, Eos % (Auto) 1.6, Baso % (Auto) 1.3, Neut # (Auto) 4.2, Lymph # (Auto) 1.1, Bath # (Auto) 0.3, Eos # (Auto) 0.1, Baso # (Auto) 0.1, PT 14.1 H, INR 1.29 H, Sodium 137, Potassium 4.5, Chloride 105, Carbon Dioxide 22, Anion Gap 14.5, BUN 36 H, Creatinine 1.60 H, Estimated Creat Clear 25, Estimated GFR 31 L, Est GFR ( Amer) 37 L, Glucose 168 H, Calcium 8.7, Magnesium 2.2, Total Bilirubin 0.8, AST 57 H, ALT 29, Alkaline Phosphatase 165 H, NT-Pro-B Natriuret Pep 4150 H, Total Protein 6.9, Albumin 4.1, Globulin 2.8, Albumin/Globulin Ratio 1.5, Lipase 26, Procalcitonin 0.054 05/24/24 19:27 05/24/24 19:27 Orders (Tests/Meds): ED MEDICATIONS Discontinued Medications Generic Name Dose Route Start Last Admin Trade Name Freq PRN Reason Stop Dose Admin Acetaminophen 1,000 mg 05/24/24 19:15 05/24/24 19:57 Acetaminophen 1,000mg/100ml Vial IV 05/24/24 19:16 1,000 mg ONCE ONE Administration Ketorolac Tromethamine 15 mg 05/24/24 19:15 05/24/24 19:57 Ketorolac 30mg/Ml Vial IV 05/24/24 19:16 15 mg ONCE ONE Administration ORDERS Category Date Time Status CT abdomen pelvis wo con Stat Cat Scan 05/24/24 19:[address] chest wo con Stat Cat Scan 05/24/24 19:16 Completed BNP [NT Pro Brain Natriuretic Pep.] Stat Lab 05/24/24 19:27 Completed CBC w/Auto Diff [Complete Blood Count Auto Diff] Stat Lab 05/24/24 19:27 Completed CMP [Comprehensive Metabolic Panel] Stat Lab 05/24/24 19:27 Completed INR [Prothrombin Time INR] Stat Lab 05/24/24 19:27 Completed Lipase Stat Lab 05/24/24 19:27 Completed Magnesium Stat Lab 05/24/24 19:27 Completed Procalcitonin Stat Lab 05/24/24 19:27 Completed Medical Decision Narrative: In summary patient is a 88-year-old female who presents to the emergency department for evaluation of left rectal abdominal pain. Patient is hemodynamically stable upon arrival, afebrile. Physical exam is remarkable for tenderness to palpation at the left lower costal border/left upper abdomen. No rebound or guarding or rigidity. Abdomen is slightly distended and tense but bowel sounds are normal active.. Differential diagnosis includes ascites versus pneumonia versus pleural effusion etc. Initial workup will be conducted with CT of the chest abdomen pelvis without contrast, hematologic labs.. Initial interventions include crystalloid bolus Tylenol Toradol only. Initial workup reviewed by me shows that her hematologic labs are stable and nonactionable. My informal interpretation of her CT scans shows slightly larger right pleural effusion but not significantly different than previous and significant ascites without any evidence of acute intra-abdominal pathology.. Upon repeat evaluation had complete resolution of her discomfort after initial intervention. Given this I had interactive discussion with patient and family members about options, inpatient versus outpatient management and the findings. Patient has never had a diagnostic thoracentesis or paracentesis. Via patient directed decision making and discharge patient will be discharged with close follow-up with her PCP and referral to both gastroenterology and pulmonology for further evaluation for possible diagnostic workup as it will have to be arranged that she is currently on Xarelto.. <Steven Hernandez MD - Last Filed: 05/24/24 21:44> Vital Signs: 05/24/24 19:14 05/24/24 19:30 05/24/24 21:35 Temperature 98.3 F 97.8 F Temperature Source Oral Pulse Rate 93 H 129 H Pulse Rate [Right Brachial] 100 H Respiratory Rate 20 14 18 Blood Pressure 129/90 131/84 Blood Pressure [Right Arm] 130/83 Blood Pressure Mean 102 Blood Pressure Mean [Right Arm] 98 Blood Pressure Source [Right Arm] Automatic Cuff Blood Pressure Position [Right Arm] Sitting 02 Sat by Pulse Oximetry 99 98 Oxygen Delivery Method Room Air Room Air Room Air Lab Data Lab Results 05/24/24 19:27: WBC 5.8, RBC 4.22, Hgb 11.2 L, Hct 36.9 L, MCV 87.4, MCH 26.6 L, MCHC 30.4 L, RDW 17.6 H, Plt Count 140 L, MPV 7.9, Neut % (Auto) 72.8, Lymph % (Auto) 18.5, Bath % (Auto) 5.8, Eos % (Auto) 1.6, Baso % (Auto) 1.3, Neut # (Auto) 4.2, Lymph # (Auto) 1.1, Bath # (Auto) 0.3, Eos # (Auto) 0.1, Baso # (Auto) 0.1, PT 14.1 H, INR 1.29 H, Sodium 137, Potassium 4.5, Chloride 105, Carbon Dioxide 22, Anion Gap 14.5, BUN 36 H, Creatinine 1.60 H, Estimated Creat Clear 25, Estimated GFR 31 L, Est GFR ( Amer) 37 L, Glucose 168 H, Calcium 8.7, Magnesium 2.2, Total Bilirubin 0.8, AST 57 H, ALT 29, Alkaline Phosphatase 165 H, NT-Pro-B Natriuret Pep 4150 H, Total Protein 6.9, Albumin 4.1, Globulin 2.8, Albumin/Globulin Ratio 1.5, Lipase 26, Procalcitonin 0.054 Orders (Tests/Meds): ED MEDICATIONS Discontinued Medications Generic Name Dose Route Start Last Admin Trade Name Freq PRN Reason Stop Dose Admin Acetaminophen 1,000 mg 05/24/24 19:15 05/24/24 19:57 Acetaminophen 1,000mg/100ml Vial IV 05/24/24 19:16 1,000 mg ONCE ONE Administration Ketorolac Tromethamine 15 mg 05/24/24 19:15 05/24/24 19:57 Ketorolac 30mg/Ml Vial IV 05/24/24 19:16 15 mg ONCE ONE Administration ORDERS Category Date Time Status CT abdomen pelvis wo con Stat Cat Scan 05/24/24 19:[address] chest wo con Stat Cat Scan 05/24/24 19:16 Completed BNP [NT Pro Brain Natriuretic Pep.] Stat Lab 05/24/24 19:27 Completed CBC w/Auto Diff [Complete Blood Count Auto Diff] Stat Lab 05/24/24 19:27 Completed CMP [Comprehensive Metabolic Panel] Stat Lab 05/24/24 19:27 Completed INR [Prothrombin Time INR] Stat Lab 05/24/24 19:27 Completed Lipase Stat Lab 05/24/24 19:27 Completed Magnesium Stat Lab 05/24/24 19:27 Completed Procalcitonin Stat Lab 05/24/24 19:27 Completed ECG Data Tracing #1: I reviewed this ECG and interpreted as documented below: (A-fib RVR 106 bpm. QRS 98, QTc 405. Patient does have T wave inversions in 2 3 aVF, these appear to be chronic on reevaluation of previous EKGs. No acute ischemic change.) Medical Decision Narrative: In summary patient is a 88-year-old female who presents to the emergency department for evaluation of left rectal abdominal pain. Patient is hemodynamically stable upon arrival, afebrile. Physical exam is remarkable for tenderness to palpation at the left lower costal border/left upper abdomen. No rebound or guarding or rigidity. Abdomen is slightly distended and tense but bowel sounds are normal active.. Differential diagnosis includes ascites versus pneumonia versus pleural effusion etc. Initial workup will be conducted with CT of the chest abdomen pelvis without contrast, hematologic labs.. Initial interventions include crystalloid bolus Tylenol Toradol only. Initial workup reviewed by me shows that her hematologic labs are stable and nonactionable. My informal interpretation of her CT scans shows slightly larger right pleural effusion but not significantly different than previous and significant ascites without any evidence of acute intra-abdominal pathology.. Upon repeat evaluation had complete resolution of her discomfort after initial intervention. Given this I had interactive discussion with patient and family members about options, inpatient versus outpatient management and the findings. Patient has never had a diagnostic thoracentesis or paracentesis. Via patient directed decision making and discharge patient will be discharged with close follow-up with her PCP and referral to both gastroenterology and pulmonology for further evaluation for possible diagnostic workup as it will have to be arranged that she is currently on Xarelto.. I was consulted by the MARIANN, and we discussed the complexity of the problems being addressed. I approved the treatment and management plan for this patient's care in the Emergency Department, thus performing a substantive portion of the medical decision making. Steven Hernandez MD Critical Care <RENNY Harvey - Last Filed: 05/24/24 21:22> Critical Care Time Critical Care Time: No
[2024-05-24 19:14] VITALS: BP 130/83; PULSE 100; RESP 20; TEMP 36.8; O2SAT 99; BMI 24.7
--- NOTE | 2024-05-24 19:15 | CT_ITS ---
PROCEDURE INFORMATION: Exam: CT Abdomen And Pelvis Without Contrast Exam date and time: 05/24/2024 8:09 PM Age: 88 years old Clinical indication: Abdominal pain; Acute; Additional info: Acute abd pain TECHNIQUE: Imaging protocol: Computed tomography of the abdomen and pelvis without contrast. Radiation optimization: All CT scans at this facility use at least one of these dose optimization techniques: automated exposure control; mA and/or kV adjustment per patient size (includes targeted exams where dose is matched to clinical indication); or iterative reconstruction. COMPARISON: CT ABDOMEN PELVIS WO CON 03/30/2024 3:57 PM FINDINGS: Diaphragm: Small hiatal hernia. Liver: Normal. No mass. Gallbladder and biliary ducts: Normal. No calcified stones. No ductal dilation. Pancreas: Severe pancreatic atrophy. Spleen: Calcified granulomas in the spleen. No splenomegaly. Adrenal glands: Normal. No mass. Kidneys and ureters: 3.5 cm cyst in the upper pole of the left kidney is unchanged. No urinary tract calculi or hydronephrosis. Stomach and bowel: Severe distal colonic diverticulosis. Moderate fecal material throughout the colon. No dilated bowel loops. Appendix: The appendix is not identified. Intraperitoneal space: Increased moderate ascites. Vasculature: Mild/moderate atherosclerotic disease. No abdominal aortic aneurysm. 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 Lymph nodes: Unremarkable. No enlarged lymph nodes. Urinary bladder: Unremarkable as visualized. Reproductive: Status post hysterectomy. No adnexal masses. Bones/joints: Mild lumbar spine levoscoliosis with mild multilevel degenerative change. Mild degenerative change of the bilateral hips and sacroiliac joints. Osteopenia. Soft tissues: Mild anasarca. IMPRESSION: 1. Increased moderate ascites. 2. Severe distal colonic diverticulosis.
--- NOTE | 2024-05-24 19:16 | CT_ITS ---
PROCEDURE INFORMATION: Exam: CT Chest Without Contrast; Diagnostic Exam date and time: 05/24/2024 8:06 PM Age: 88 years old Clinical indication: Pain; Chest pressure; Additional info: Left thoracicoabdominal pain, TECHNIQUE: Imaging protocol: Diagnostic computed tomography of the chest without contrast. Radiation optimization: All CT scans at this facility use at least one of these dose optimization techniques: automated exposure control; mA and/or kV adjustment per patient size (includes targeted exams where dose is matched to clinical indication); or iterative reconstruction. COMPARISON: CT CHEST WO CON 03/30/2024 3:57 PM FINDINGS: Tubes, catheters and devices: Left chest wall pacemaker in place. Lungs: Unchanged right lower lobe compressive atelectasis. Mild dependent atelectasis in the left lower lobe. Unchanged 5 mm noncalcified nodule in the lingula. Pleural spaces: Unchanged small/moderate right pleural effusion. No left pleural effusion. Heart: Mild cardiomegaly. Pacer leads terminate in the right atrium and right ventricle. Coronary arteries: Severe coronary artery calcification. Lymph nodes: Calcified mediastinal and bilateral hilar lymph nodes. No adenopathy. Vasculature: Mild thoracic aortic atherosclerotic disease without aneurysm. Bones/joints: Unchanged mild loss of height of T1, T2, T3, and T4 with upper thoracic spine kyphosis. Unchanged old sternal fracture. Soft tissues: Mild anasarca. IMPRESSION: 1. Unchanged small/moderate right pleural effusion with right lower lobe compressive atelectasis. 2. No new abnormality in the chest.
[2024-05-24 19:30] VITALS: BP 129/90; PULSE 93; RESP 14; O2SAT 98
[2024-05-24 19:42] LABS: Basophils # 0.1 K/mm3 (0-0.2); Basophils % 1.3 % (0.1-2.0); Eosinophils # 0.1 K/mm3 (0.0-0.4); Eosinophils % 1.6 % (0.1-12.0); Hematocrit 36.9 % (37.0-47.0); Hemoglobin 11.2 g/dL (12.2-16.2); Lymphocytes # 1.1 K/mm3 (0.7-4.5); Lymphocytes % 18.5 % (10-50); Mean Corpuscular HGB Conc 30.4 g/dL (31.8-35.4); Mean Corpuscular Hemoglobin 26.6 pg (27.0-31.2); Mean Corpuscular Volume 87.4 fl (81-99); Mean Platelet Volume 7.9 fl (7.4-10.4); Monocytes # 0.3 K/mm3 (0.1-1.0); Monocytes % 5.8 % (1.7-9.3); Neutrophils # 4.2 K/mm3 (1.8-7.8); Neutrophils % 72.8 % (37.0-80.0); Platelet Count 140 K/mm3 (142-424); Red Blood Count 4.22 M/mm3 (4.20-5.40); Red Cell Distribution Width 17.6 % (11.5-17.5); White Blood Count 5.8 K/mm3 (4.8-10.8)
[2024-05-24 19:47] LABS: INR 1.29 (0.9-1.1); Prothrombin Time 14.1 seconds (10.1-12.5)
[2024-05-24] MEDS: KETOROLAC 30MG/ML VIAL 15 MG IV (19:57)
[2024-05-24] MEDS: ACETAMINOPHEN 1,000MG/100ML VIAL 1000 MG IV (19:57)
[2024-05-24 20:03] LABS: Anion Gap 14.5 mEq/L (5-15); Blood Urea Nitrogen 36 mg/dl (7-17); Carbon Dioxide 22 mmol/L (22.0-30.0); Chloride 105 mmol/L (98-107); Creatinine Clearance Estimated 25 mL/min (50-200); Estimated Glomerular Filt Rate 31 ml/min (>60); GFR (African American) 37 ML/MIN (>60); Potassium 4.5 mmoL/L (3.5-5.1); Sodium 137 mmol/L (136-145)
[2024-05-24 20:04] LABS: Alanine Aminotransferase 29 U/L (12-78); Albumin Level 4.1 g/dl (3.5-5.0); Albumin/Globulin Ratio 1.5 (1.1-1.8); Alkaline Phosphatase 165 U/L (38-126); Aspartate Amino Transferase 57 U/L (14-36); Bilirubin,Total 0.8 mg/dl (0.2-1.3); Calcium 8.7 mg/dl (8.4-10.2); Globulin 2.8 g/dL (1.3-3.2); Glucose 168 mg/dl (74-100); Lipase 26 U/L (23-300); Magnesium 2.2 mg/dl (1.6-2.3); NT Pro Brain Natriuretic Pep. 4150 pg/mL (0-450); Total Protein,Serum 6.9 g/dl (6.3-8.2)
[2024-05-24 20:29] LABS: Procalcitonin 0.054 ng/mL (0.0-2.0)
[2024-05-24 21:35] VITALS: BP 131/84; PULSE 129; RESP 18; TEMP 36.6; O2SAT 98
== END 2024-05-24 21:36 | disposition home or self-care (01) ==
PROVIDERS: Physician Assistant; Emergency Provider Emergency Medicine; PCP Internal Medicine
DX: R10.12 Left upper quadrant pain (principal); J90 Pleural effusion, not elsewhere classified; R18.8 Other ascites; I11.0 Hypertensive heart disease with heart failure; I50.9 Heart failure, unspecified; E11.22 Type 2 diabetes mellitus with diabetic chronic kidney disease; I12.9 Hypertensive chronic kidney disease with stage 1 through stage 4 chronic kidney disease, or unspecified chronic kidney disease; N18.9 Chronic kidney disease, unspecified; Z79.4 Long term (current) use of insulin; Z79.84 Long term (current) use of oral hypoglycemic drugs
CPT/HCPCS: 71250; 74176; 80053; 83690; 83735; 83880; 84145; 85025; 85610; 93005; 96374; 96375; 99285; J0131; J1885

== ENCOUNTER 2024-06-07 10:30 | Outpatient (CLI) | payer MEDICARE, MEDICAID, SELFPAY ==
--- NOTE | 2024-06-07 10:31 | US_ITS ---
FINAL REPORT CLINICAL HISTORY: ASCITES - EMORY LAWSON - LT SIDE -- 1800 ML REMOVED FINDINGS: ULTRASOUND-GUIDED PARACENTESIS HISTORY: Ascites, cirrhosis. ATTENDING PHYSICIAN: Dr. Gutierrez PHYSICIAN COSTUMER: Soraida Mcneil PA-C TECHNIQUE: Informed consent was obtained from the patient. A time-out procedure was performed prior to beginning. Appropriate pocket was localized for drainage. The patient was prepped and draped in a routine sterile fashion. Local anesthesia was achieved with 1% lidocaine. Using imaging guidance with images acquired, an 18-gauge sheath needle was directed into the peritoneal fluid. Approximately 1.8 liters of clear yellow fluid was aspirated. 50 mL of fluid was sent to the lab for analysis. The patient tolerated the procedure well and left the department in good condition. Ultrasound guidance was utilized for this procedure. IMPRESSION: Successful ultrasound guided therapeutic paracentesis as above. Reviewed, Interpreted and Dictated by Jerod Gutierrez III, MD Transcribed by Soraida Mcneil PA-C Authenticated and [facility]
[2024-06-07 13:09] LABS: Alanine Aminotransferase 20 U/L (12-78); Albumin Level 3.7 g/dl (3.5-5.0); Albumin/Globulin Ratio 1.2 (1.1-1.8); Alkaline Phosphatase 91 U/L (38-126); Aspartate Amino Transferase 58 U/L (14-36); Bilirubin,Total 1.3 mg/dl (0.2-1.3); Blood Urea Nitrogen 27 mg/dl (7-17); Calcium 8.9 mg/dl (8.4-10.2); Carbon Dioxide 25 mmol/L (22.0-30.0); Chloride 103 mmol/L (98-107); Estimated Glomerular Filt Rate 43 ml/min (>60); GFR (African American) 52 ML/MIN (>60); Globulin 3.2 g/dL (1.3-3.2); Glucose 128 mg/dl (74-100); Lactate Dehydrogenase 413 U/L (313-618); Sodium 136 mmol/L (136-145); Total Protein,Serum 6.9 g/dl (6.3-8.2)
[2024-06-07 14:38] LABS: Appearance,Body Fld. Bloody; Source, Body Fld. Paracentesis Fluid; Volume,Body Fld. 1800 mL
[2024-06-07 14:39] LABS: Polynuclear WBC,Body Fluid 6 %; RBC,Body Fluid 20 cells/uL (< 10 X 10^3); TNC,Body Fluid 403 cells/uL (< 1000)
[2024-06-07 14:43] LABS: Mononuclear WBCs,Body Fluid 94 %
[2024-06-09 11:13] LABS: Albumin, Body Fluid 2.3 g/dL (Not Estab.); LD, Body Fluid 120 IU/L (.); Protein, Body Fluid 3.7 g/dL (.)
== END 2024-06-07 23:59 | disposition home or self-care (01) ==
LOC: RAD 10:31
PROVIDERS: PCP Internal Medicine; Visit Provider Internal Medicine Pulmonary Disease
DX: R18.8 Other ascites (principal); J90 Pleural effusion, not elsewhere classified
CPT/HCPCS: 36415; 49083; 80053; 82042; 83615; 84155; 87070; 87205; 88112; 88305; 89051

== ENCOUNTER 2024-06-12 10:02 | Outpatient (CLI) | payer MEDICARE, MEDICAID, SELFPAY ==
[2024-06-12 20:50] LABS: HIV (1&2) Antibody Rapid NONREACTIVE (NONREACTIVE)
[2024-06-14 05:10] LABS: HBsAg Screen Negative (Negative); HCV Ab Non Reactive (Non Reactive); Hep A Ab, IGM Negative (Negative); Hep B Core Ab, IgM Negative (Negative)
== END 2024-06-12 23:59 | disposition home or self-care (01) ==
LOC: LAB.DROPOF 06-13 10:03
PROVIDERS: PCP Internal Medicine; Visit Provider Internal Medicine
DX: K74.60 Unspecified cirrhosis of liver (principal)
CPT/HCPCS: 80074; 86803; 87389

== ENCOUNTER 2024-06-23 08:37 | Outpatient (CLI) | payer MEDICARE, MEDICAID, SELFPAY ==
--- NOTE | 2024-06-23 08:41 | US_ITS ---
FINAL REPORT CLINICAL HISTORY: ASCITES -- YEISON LAWSON -- PT DID NOT HAVE ENOUGH FLUID TO DRAIN TODAY FINDINGS: A single view of the abdomen was obtained. There is a small pocket of fluid noted in the left lower quadrant. IMPRESSION: Small pocket of fluid in the left lower quadrant. Reviewed, Interpreted and Dictated by Tremayne Morelos MD Transcribed by Niesha Horn Authenticated and [facility]
== END 2024-06-23 23:59 | disposition home or self-care (01) ==
LOC: RAD 08:37
PROVIDERS: PCP Internal Medicine; Visit Provider Nurse Practitioner
DX: R18.8 Other ascites (principal)
CPT/HCPCS: 76705

== ENCOUNTER 2024-07-28 08:43 | Outpatient (CLI) | payer MEDICARE, MEDICAID, SELFPAY ==
--- NOTE | 2024-07-28 08:46 | US_ITS ---
FINAL REPORT CLINICAL HISTORY: ACITIES-- LLQ-- 1600 ML-- FAIZAN LAWSON FINDINGS: ULTRASOUND-GUIDED PARACENTESIS HISTORY: Ascites ATTENDING PHYSICIAN: Dr. Gutierrez PHYSICIAN RETAIL ADVISOR: Faizan Lovelace PA-C FINDINGS: After informed consent was obtained and timeout procedure performed, fluid was localized in the left lower quadrant under ultrasound guidance and marked on the skin appropriately. The patient was then prepped and draped in the usual sterile fashion and the skin was anesthetized with 1% lidocaine. An ultrasound guided paracentesis was then performed using a Turkel needle. Approximately 1.6 liters of clear yellow fluid was removed. The patient tolerated the procedure well and there were no immediate complications. IMPRESSION: Ultrasound guided left lower quadrant paracentesis as discussed above. Films reviewed , interpreted and dictated by Dr. Gutierrez. Transcribed by Sandip Riddle PA-C. Reviewed, Interpreted and Dictated by Jerod Gutierrez III, MD Transcribed by RENNY Wolfe Authenticated and [facility]
== END 2024-07-28 23:59 | disposition home or self-care (01) ==
LOC: RAD 08:43
PROVIDERS: PCP Internal Medicine; Visit Provider Internal Medicine
DX: R18.8 Other ascites (principal); K74.60 Unspecified cirrhosis of liver
CPT/HCPCS: 49083

== ENCOUNTER 2024-08-13 00:12 | Emergency (ER) | payer MEDICARE, MEDICAID, SELFPAY ==
[2024-08-13 00:12] VITALS: BP 122/84; PULSE 81; RESP 18; TEMP 36.2; O2SAT 98; BMI 26.9
[2024-08-13 00:17] VITALS: PULSE 68; O2SAT 97
[2024-08-13] MEDS: OXYMETAZOLINE NASAL SPRAY 0.05% 15ML NS (00:25)
[2024-08-13 00:30] VITALS: BP 108/75; PULSE 74; O2SAT 98
[2024-08-13 00:49] LABS: Basophils # 0.1 K/mm3 (0-0.2); Basophils % 0.8 % (0.1-2.0); Eosinophils # 0.1 K/mm3 (0.0-0.4); Eosinophils % 2.4 % (0.1-12.0); Hematocrit 33.3 % (37.0-47.0); Hemoglobin 11.1 g/dL (12.2-16.2); Lymphocytes # 1.1 K/mm3 (0.7-4.5); Lymphocytes % 17.7 % (10-50); Mean Corpuscular HGB Conc 33.4 g/dL (31.8-35.4); Mean Corpuscular Hemoglobin 27.4 pg (27.0-31.2); Mean Corpuscular Volume 82.1 fl (81-99); Monocytes # 0.3 K/mm3 (0.1-1.0); Monocytes % 5.7 % (1.7-9.3); Neutrophils # 4.4 K/mm3 (1.8-7.8); Neutrophils % 73.4 % (37.0-80.0); Platelet Count 150 K/mm3 (142-424); Red Blood Count 4.06 M/mm3 (4.20-5.40); Red Cell Distribution Width 17.1 % (11.5-17.5)
--- NOTE | 2024-08-13 00:49 | ED_ITS ---
Discharge Plan Disposition Patient Disposition: Home, Self-Care Condition: Good Prescriptions Prescriptions: No Action (DME) pen needle, diabetic [BD Ultra-Fine Mini Pen Needle] 31 gauge x 3/16 needle See Rx Instructions .ROUTE .MEDSUPPLY Qty: 1200 Patient Comments: USE as directed TWICE DAILY with insulin Rx Instructions: As directed insulin glargine [Lantus Solostar U-100 Insulin] 100 unit/mL (3 mL) insulin pen 11 unit SQ BID 60 Days Qty: 13.2 4RF Rx Instructions: 13 IU sq in AM, then 11 IU sq in PM nitroglycerin 0.4 mg tablet, sublingual 0.4 mg sublingual Q5M PRN (Reason: chest pain) Qty: 30 3RF Rx Instructions: do not exceed 3 doses per episode ondansetron 4 mg tablet,disintegrating 16 mg PO Q6H PRN (Reason: nausea and vomiting) Qty: 120 3RF ferrous gluconate 324 mg (38 mg iron) tablet 324 mg PO DAILY 60 Days Qty: 60 2RF (DME) pen needle, diabetic [BD Ultra-Fine Short Pen Needle] 31 gauge x 5/16 needle See Rx Instructions .Route Rx Instructions: As directed or bid No. 5 mirabegron [Myrbetriq] 25 mg tablet extended release 24 hr See Rx Instructions .ROUTE .COMPLEX Qty: 60 3RF Dose Instruction: TAKE ONE TABLET BY MOUTH EVERY DAY FOR BLADDER Rx Instructions: TAKE ONE TABLET BY MOUTH EVERY DAY FOR BLADDER mecobalamin (vitamin B12) 5,000 mcg tablet,chewable 5,000 mcg PO DAILY Qty: 90 0RF bumetanide 1 mg tablet See Rx Instructions .ROUTE .COMPLEX Qty: 90 2RF Dose Instruction: TAKE ONE TABLET BY MOUTH EVERY DAY Rx Instructions: TAKE ONE TABLET BY MOUTH EVERY DAY cetirizine 10 mg tablet See Rx Instructions .ROUTE .COMPLEX Qty: 90 0RF Dose Instruction: TAKE ONE TABLET BY MOUTH EVERY DAY AT BEDTIME FOR ALLERGIES Rx Instructions: TAKE ONE TABLET BY MOUTH EVERY DAY AT BEDTIME FOR ALLERGIES Jardiance 10 mg tablet 20 mg PO DAILY 90 Days Qty: 180 0RF lactulose [Constulose] 10 gram/15 mL solution 10 g PO DAILY bisoprolol fumarate 5 mg tablet 2.5 mg PO HS Qty: 30 5RF omeprazole 40 mg capsule,delayed release(DR/EC) See Rx Instructions .ROUTE .COMPLEX Qty: 90 0RF Dose Instruction: TAKE ONE CAPSULE BY MOUTH EVERY DAY Rx Instructions: TAKE ONE CAPSULE BY MOUTH EVERY DAY verapamil 120 mg capsule,ext rel. pellets 24 hr See Rx Instructions .ROUTE .COMPLEX Qty: 90 0RF Dose Instruction: TAKE ONE CAPSULE BY MOUTH EVERY DAY Rx Instructions: TAKE ONE CAPSULE BY MOUTH EVERY DAY levothyroxine 50 mcg tablet See Rx Instructions .ROUTE .COMPLEX Qty: 90 0RF Dose Instruction: TAKE ONE TABLET BY MOUTH EVERY DAY Rx Instructions: TAKE ONE TABLET BY MOUTH EVERY DAY sertraline 100 mg tablet See Rx Instructions .ROUTE .COMPLEX Qty: 90 0RF Dose Instruction: TAKE ONE TABLET BY MOUTH EVERY DAY Rx Instructions: TAKE ONE TABLET BY MOUTH EVERY DAY clopidogrel 75 mg tablet 75 mg PO DAILY Qty: 90 0RF Xarelto 15 mg tablet See Rx Instructions .ROUTE .COMPLEX Qty: 90 3RF Dose Instruction: TAKE ONE TABLET BY MOUTH EVERY NIGHT AT BEDTIME --TAKE WITH FOOD-- Rx Instructions: TAKE ONE TABLET BY MOUTH EVERY NIGHT AT BEDTIME --TAKE WITH FOOD-- oxycodone 5 mg tablet 2.5 mg PO Q4-6H PRN (Reason: pain) Qty: 60 0RF ondansetron HCl 8 mg tablet See Rx Instructions .ROUTE .COMPLEX Qty: 20 0RF Dose Instruction: TAKE ONE TABLET BY MOUTH EVERY TWELVE HOURS NEEDED FOR NAUSEA AND VOMITING Rx Instructions: TAKE ONE TABLET BY MOUTH EVERY TWELVE HOURS NEEDED FOR NAUSEA AND VOMITING (DME) FreeStyle Kai 2 Sensor Kit See Rx Instructions .ROUTE .COMPLEX Qty: 1 2RF Dose Instruction: USE DIRECTED Rx Instructions: USE DIRECTED vfvbtotmzuah-xkew-utlqa acid 1 EACH tablet 1 each PO DAILY fluticasone propionate 50 mcg/actuation spray,suspension 1 spray intranasal DAILY Rx Instructions: instill 1 SPRAY IN EACH NOSTRIL DAILY FOR ALLERGY symptoms isosorbide mononitrate 30 mg tablet extended release 24 hr 15 mg PO DAILY Patient Comments: TAKE 1/2 TABLET BY MOUTH EVERY DAY FOR CHEST pain lidocaine 5 % Adhesive Patch,Medicated 1 patch topical Q24H 30 Days Qty: 30 0RF atorvastatin 40 mg tablet 40 mg PO HS Patient Comments: TAKE ONE TABLET BY MOUTH EVERY DAY Referrals Follow up/Referrals: Richard Gutiérrez DO [Primary Care Provider] - See instructions (Recheck for recent ER visit for epistaxis, re-check coag labs) Activity Restrictions/Add. Instructions Additional Instructions/Restrictions: You were evaluated in the ER and are appropriate for discharge at this time. Continue home medications as prescribed. If you have nosebleed again, blow your nose and to use the provided nasal decongestant spray (oxymetazoline) 1 spray in each nostril. Then hold pressure for 30 minutes. If this does not stop your bleeding, come to the ER. Do not use this medication more than 3 days in a row. I also recommend that you use an vyok-stm-wbfbigj saline nasal spray in the nose multiple times a day to keep the nose from cracking and bleeding. You can also try having a humidifier in your bedroom to prevent dry air. Follow-up with your primary care doctor for reevaluation in 2 to 3 days. Return to the ER with new, worsening, or otherwise concerning symptoms. Clinical Impressions Clinical Impression: Epistaxis Instructions Patient Instructions: DI for Nosebleed Print Language Print Language: Thai Discharge ED Provider: Juan C Lim General Adult HPI General Chief complaint: Epistaxis Stated complaint: Nose Bleed Time Seen by Provider: 08/13/24 00:21 Mode of Arrival: EMS Source of Information: Patient Limitations: No Limitations Description of Symptoms (Recalled from ER Triage Doc. by RN): Patient developed a nosebleed around 11:20pm tonight. States she is on xarelto and plavix. Denies injury, sneezing etc before nose began bleeding. History of Present Illness HPI narrative: 89-year-old female presents to the ER for epistaxis. Reportedly she developed nosebleed around 11:20 PM. Patient takes Xarelto and Plavix. Patient denies any injury or obvious cause of the bleeding. Patient does have a history of chronic pain, CKD, HFpEF, diabetes. She states she has never had a nosebleed like this before. She attempted holding pressure at home without success. EMS reports they held pressure for approximately 20 minutes and while the bleeding slowed, it did not stop. Patient presented to the ER for further evaluation. Patient states she has mild nausea but no other associated symptoms. She states she is nauseous from the blood that ran down her throat earlier. Patient denies vomiting or abdominal pain, no headache or dizziness, no numbness, tingling, weakness, or any other associated symptoms. No weakness or shortness of breath, no chest pain patient denies being ill recently. Related Data Home Medications ?Medication ?Instructions ?Recorded ?Confirmed multivitamin-ferrous 1 each PO DAILY Supplement 08/18/21 07/18/24 fumarate-folic acid 18 mg-400 mcg tablet fluticasone propionate 50 1 spray intranasal DAILY 01/24/24 07/18/24 mcg/actuation nasal spray,suspension isosorbide mononitrate 30 mg 15 mg PO DAILY 01/25/24 07/18/24 tablet,extended release 24 hr pen needle, diabetic 31 gauge x 03/17/24 07/18/2402/16 (BD Ultra-Fine Short Pen Needle) pen needle, diabetic 31 gauge x #1,200 ea 03/22/24 07/18/2412/17 (BD Ultra-Fine Mini Pen Needle) atorvastatin 40 mg tablet 40 mg PO HS 03/31/24 07/18/24 lactulose 10 gram/15 mL oral 10 g PO DAILY 06/27/24 07/18/24 solution (Constulose) Previous Rx's ?Medication ?Instructions ?Recorded ferrous gluconate 324 mg (38 mg 324 mg PO DAILY 60 days #60 tabs 11/08/23 iron) tablet nitroglycerin 0.4 mg sublingual 0.4 mg sublingual Q5M PRN chest 12/20/23 tablet pain #30 tabs lidocaine 5 % topical patch 1 patch topical Q24H 30 days #30 ea 01/26/24 mirabegron 25 mg tablet,extended See Rx Instructions .Route 05/02/24 release 24 hr (Myrbetriq) .COMPLEX #60 tabs insulin glargine 100 unit/mL (3 11 unit (0.11 mL) SQ BID 60 days 05/15/24 mL) subcutaneous pen (Lantus #13.2 mL Solostar U-100 Insulin) mecobalamin (vitamin B12) 5,000 5,000 mcg PO DAILY vitamin B12 05/18/24 mcg chewable tablet deficiency #90 tabs bumetanide 1 mg tablet See Rx Instructions .Route 05/22/24 .COMPLEX #90 tabs cetirizine 10 mg tablet See Rx Instructions .Route 05/29/24 .COMPLEX #90 tabs empagliflozin 10 mg tablet 20 mg (2 x 10 mg) PO DAILY 90 days 06/02/24 (Jardiance) #180 tabs ondansetron 4 mg disintegrating 16 mg (4 x 4 mg) PO Q6H PRN nausea 06/12/24 tablet and vomiting #120 ea bisoprolol fumarate 5 mg tablet 2.5 mg (1/2 x 5 mg) PO HS #30 tabs 06/29/24 levothyroxine 50 mcg tablet See Rx Instructions .Route 07/07/24 .COMPLEX #90 tabs omeprazole 40 mg capsule,delayed See Rx Instructions .Route 07/07/24 release .COMPLEX #90 caps verapamil 120 mg 24 hr See Rx Instructions .Route 07/07/24 capsule,extended release .COMPLEX #90 caps sertraline 100 mg tablet See Rx Instructions .Route 07/13/24 .COMPLEX #90 tabs clopidogrel 75 mg tablet 75 mg PO DAILY heart stents #90 07/18/24 tabs rivaroxaban 15 mg tablet (Xarelto) See Rx Instructions .Route 07/28/24 .COMPLEX #90 tabs ondansetron HCl 8 mg tablet See Rx Instructions .Route 07/31/24 .COMPLEX #20 tabs oxycodone 5 mg tablet 2.5 mg (1/2 x 5 mg) PO Q4-6H PRN 07/31/24 pain #60 tabs flash glucose sensor (FreeStyle #1 kit 08/01/24 Kai 2 Sensor kit) Allergies Allergy/AdvReac Type Severity Reaction Status Date / Time methylprednisolone Allergy Mild Elevated Verified 07/18/24 13:12 glucose [facility] Disclaimer: The information contained in this section may have been updated after the patient was seen, as this information can be updated by other users. Medical History Chronic Kidney Disease Acute on chronic heart failure with preserved ejection fraction (HFpEF) Seasonal allergies Hyperlipemia Hypertension Atypical angina Abnormal cardiovascular stress test Nausea vomiting and diarrhea Atypical chest pain Fatigue Gastroenteritis Arthritis History of anemia History of gastroesophageal reflux (GERD) Diabetes mellitus, type 2 History of cataract Arrhythmia History of pacemaker History of left heart catheterization (LHC) Gastritis Acute blood loss anemia (ABLA) Hyperglycemia Angina at rest Hyperglycemia without ketosis PAF (paroxysmal atrial fibrillation) Acute kidney injury DKA (diabetic ketoacidosis) Dyspnea Lactose intolerance Strep throat Pancytopenia 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 antigen is unknown, or is not H7 Hypokalemia Hypotension Digitalis toxicity Edema SOB (shortness of breath) Leukocytosis Colitis Viral gastroenteritis Lactic acidosis Hyperglycemia due to diabetes mellitus Palpitations Primary osteoarthritis of right shoulder CHF (congestive heart failure) Cardiomyopathy Atrial fibrillation with RVR Right shoulder pain Peripheral arterial disease Atrial fibrillation Hyperkalemia Renal insufficiency Urinary tract infection Anemia Acute renal insufficiency Cardiogenic shock Diabetes Pre-syncope Contusion of sternum Fatigue SOB (shortness of breath) on exertion Leg pain, bilateral HLD (hyperlipidemia) Angina pectoris Cardiac pacemaker in situ will check labs SSS (sick sinus syndrome) HTN (hypertension) Pulmonary HTN Chest wall pain following surgery Report soreness r/t post op pacemaker Coronary artery disease Surgical History History of esophagogastroduodenoscopy (EGD) Hx of tonsillectomy History of colonoscopy History of hysterectomy History of appendectomy History of cholecystectomy Family History Other No significant family history Social History Smoking Status: Never smoker second hand exposure: No alcohol intake: never substance use type: denies use current occupational status: disabled Travel in the last 8 weeks: None household members: family housing: house caffeine: No Other Medical History Have you received the Flu Vaccine for this season: No Have you received the Pneumonia Vaccine: Yes ROS Obtained: Yes Systems reviewed as appropriate & no additional complaints except as documented ROS per HPI Physical Exam General General appearance: alert and in no apparent distress Head Head exam: atraumatic and normocephalic Eye Eye exam: Present PERRL and EOMI ENT ENT exam: Present mucous membranes moist and other (Patient has blood in bilateral naris as well as dried blood in the oropharynx, no active bleeding appreciated from the nares or down the back of the throat) Neck Neck exam: Present normal inspection and full ROM Chest Chest inspection: Present symmetric chest wall rise Respiratory Respiratory exam: Present normal lung sounds bilaterally; Absent respiratory distress, wheezes or stridor Cardiovascular Cardiovascular exam: Present regular rate and normal rhythm Abdominal Exam Abdominal exam: Present soft; Absent distention or tenderness Extremities Exam Extremities exam: Present full ROM Neurological Exam Neurological exam: Present alert and oriented X3; Absent motor sensory deficit Psychiatric Psychiatric exam: Present normal affect and normal mood Skin Skin exam: Present warm and dry Medical Decision Making Medical Records Screening: Per USPSTF and CDC recommendations, given the prevalence of disease in our region, it is our hospital?s policy to screen for HIV and viral Hepatitis for all patients aged 18 and over and those with ongoing risk factors. Thomas Inquiry Pt receiving controlled substance: No Vital Signs: 08/13/24 00:12 08/13/24 00:17 08/13/24 00:30 Temperature 97.2 F L Temperature Source Temporal Artery Scan Pulse Rate 68 74 Pulse Rate [Right Radial] 81 Respiratory Rate 18 Blood Pressure 108/75 L Blood Pressure [Right Arm] 122/84 Blood Pressure Mean [Right Arm] 96 Blood Pressure Source [Right Arm] Automatic Cuff Blood Pressure Position [Right Arm] Supine 02 Sat by Pulse Oximetry 98 97 98 Oxygen Delivery Method Room Air 08/13/24 01:00 Temperature Temperature Source Pulse Rate 80 Pulse Rate [Right Radial] Respiratory Rate Blood Pressure 108/54 L Blood Pressure [Right Arm] Blood Pressure Mean [Right Arm] Blood Pressure Source [Right Arm] Blood Pressure Position [Right Arm] 02 Sat by Pulse Oximetry 96 Oxygen Delivery Method Lab Data Lab Results 08/13/24 00:40: WBC 6.0, RBC 4.06 L, Hgb 11.1 L, Hct 33.3 L, MCV 82.1, MCH 27.4, MCHC 33.4, RDW 17.1, Plt Count 150, MPV 9.0, Neut % (Auto) 73.4, Lymph % (Auto) 17.7, [place] % (Auto) 5.7, Eos % (Auto) 2.4, Baso % (Auto) 0.8, Neut # (Auto) 4.4, Lymph # (Auto) 1.1, [place] # (Auto) 0.3, Eos # (Auto) 0.1, Baso # (Auto) 0.1, PT 23.0 H, INR 2.22 H, APTT 43.6 H 08/13/24 00:40 Orders (Tests/Meds): ED MEDICATIONS Discontinued Medications Generic Name Dose Route Start Last Admin Trade Name Freq PRN Reason Stop Dose Admin Ondansetron HCl 4 mg 08/13/24 00:50 08/13/24 00:51 Ondansetron 4mg Odt SL 08/13/24 00:51 4 mg ONCE ONE Administration Oxymetazoline HCl 1 ml 08/13/24 00:22 08/13/24 00:25 Oxymetazoline Nasal Arabi 0.05% 15ml NS 08/13/24 00:23 1 ml ONCE ONE Administration ORDERS Category Date Time Status CBC w/Auto Diff [Complete Blood Count Auto Diff] Stat Lab 08/13/24 00:40 Completed PT INR [Prothrombin Time INR] Stat Lab 08/13/24 00:40 Completed PTT [Activated Partial Thrombo Time] Stat Lab 08/13/24 00:40 Completed Medical Decision Narrative: In summary, this 89-year-old female with comorbidities as described in HPI on Xarelto and Plavix presents to the emergency department today with nosebleed. On initial evaluation patient is hemodynamically stable, afebrile, on exam patient's bleeding has actually stopped, based on exam I believe it was likely an anterior nosebleed though on my differential was also posterior nosebleed, coagulopathy, anemia. Patient does not have any symptoms from being anemic, but likely has coagulopathy due to her dual anticoagulation. Patient received oxymetazoline administered by me in the bilateral naris to help with vasoconstriction and prevent any rebleeding. Basic hematologic labs were ordered. Labs were reviewed demonstrating mild anemia stable from prior based on my review of previous labs, PT/INR and APTT elevated likely related to anticoagulation use, however they are elevated above what they have been previously. This can be evaluated outpatient. Patient has not had any additional bleeding after monitoring in the ER for approximately 1 hour. She continues to be stable with no rebleeding and is appropriate for discharge. Oxymetazoline spray that was administered in the ER was provided to the patient with explicit instructions given verbally to her and her son at bedside as well as written in the discharge instructions for use if needed. Patient was given instructions on symptomatic management, follow up instructions, and return precautions for the emergency department. Patient indicated understanding and was discharged in stable condition. Critical Care Critical Care Time Critical Care Time: No
[2024-08-13] MEDS: ONDANSETRON 4MG ODT 4 MG SL (00:51)
[2024-08-13 01:00] VITALS: BP 108/54; PULSE 80; O2SAT 96
[2024-08-13 01:00] LABS: Activated Partial Thrombo Time 43.6 seconds (22.8-30.6); INR 2.22 (0.9-1.1)
[2024-08-13 01:39] VITALS: BP 108/72; PULSE 70; RESP 18; TEMP 36.6; O2SAT 98
== END 2024-08-13 01:41 | disposition home or self-care (01) ==
PROVIDERS: Emergency Provider Emergency Medicine; PCP Internal Medicine
DX: R04.0 Epistaxis (principal)
CPT/HCPCS: 85025; 85610; 85730; 99283; Q0162

== ENCOUNTER 2024-08-22 14:18 | Outpatient (CLI) | payer MEDICARE, MEDICAID, SELFPAY ==
[2024-08-22 15:00] LABS: Ammonia 20 umol/L (9-30)
[2024-08-23 08:21] LABS: AFP, Tumor Marker <1.8 ng/mL (0.0-8.7)
[2024-08-23 14:13] LABS: Anti-Centromere B Antibodies <0.2 AI (0.0-0.9); Anti-DNA (DS) Ab Qn <1 IU/mL (0-9); Anti-Jo-1 <0.2 AI (0.0-0.9); Anti-Smith Antibody <0.2 AI (0.0-0.9); Antichromatin Antibodies <0.2 AI (0.0-0.9); Antiscleroderma-70 Antibodies <0.2 AI (0.0-0.9); RNP Antibodies <0.2 AI (0.0-0.9); Sjogren's Anti-SS-A <0.2 AI (0.0-0.9); Sjogren's Anti-SS-B <0.2 AI (0.0-0.9)
[2024-08-23 15:33] LABS: Actin (Smooth Muscle) Antibody 6 Units (0-19); Mitochondrial (M2) Antibody <20.0 Units (0.0-20.0)
[2024-08-25 04:20] LABS: ALT (SGPT) P5P 13 IU/L (0-40); AST (SGOT) P5P 32 IU/L (0-40); Alpha 2-Macroglobulins, Qn 184 mg/dL (110-276); Apolipoprotein A-1 90 mg/dL (114-214); Bilirubin, Total 0.7 mg/dL (0.0-1.2); Cholesterol, Total 72 mg/dL (100-199); Fibrosis Score 0.52 (0.00-0.21); GGT 51 IU/L (0-60); Glucose 201 mg/dL (70-99); Haptoglobin 253 mg/dL (41-333); NASH Score 0.84 (0.00-0.25); Steatosis Score 0.86 (0.00-0.40); Triglycerides 97 mg/dL (0-149)
[2024-08-25 20:40] LABS: Alpha-1-Antitrypsin 248 mg/dL (101-187)
== END 2024-08-22 23:59 | disposition home or self-care (01) ==
LOC: LAB 14:19
PROVIDERS: PCP Internal Medicine; Visit Provider Internal Medicine Gastroenterology
DX: K74.60 Unspecified cirrhosis of liver (principal); R18.8 Other ascites; R94.5 Abnormal results of liver function studies; K72.10 Chronic hepatic failure without coma
CPT/HCPCS: 82103; 82104; 82105; 82140; 86225; 86235; 86255; 86256

== ENCOUNTER 2024-08-27 13:54 | Emergency (ER) | payer MEDICARE, MEDICAID, SELFPAY ==
[2024-08-27 13:54] VITALS: BP 134/83; PULSE 116; RESP 18; TEMP 36.9; O2SAT 98; BMI 28.0
--- NOTE | 2024-08-27 14:09 | CT_ITS ---
PROCEDURE INFORMATION: Exam: CT Head Without Contrast Exam date and time: 08/27/2024 2:19 PM Age: 89 years old Clinical indication: Injury or trauma; Additional info: Fall, hit head, on xarelto TECHNIQUE: Imaging protocol: Computed tomography of the head without contrast. Total images: 283 Radiation optimization: All CT scans at this facility use at least one of these dose optimization techniques: automated exposure control; mA and/or kV adjustment per patient size (includes targeted exams where dose is matched to clinical indication); or iterative reconstruction. COMPARISON: CT HEAD/BRAIN WO CON 02/23/2021 FINDINGS: Brain: Age-related atrophy and chronic white matter ischemic changes, with no evidence of an acute intracranial abnormality. Old lacunar infarctions noted within the right caudate nucleus and left thalamus. Cerebral ventricles: The ventricular system demonstrates mild diffuse enlargement. Paranasal sinuses: Visualized sinuses are unremarkable. No fluid levels. Mastoid air cells: Visualized mastoid air cells are well aerated. Nasal cavity: Septum variants are present. Bones: Unremarkable. No acute fracture. Soft tissues: Posterior soft tissue hematoma on the right. IMPRESSION: 1. Age-related atrophy and chronic white matter ischemic changes, with no evidence of an acute intracranial abnormality. 2. Posterior soft tissue hematoma on the right.
--- NOTE | 2024-08-27 14:09 | XR_ITS ---
PROCEDURE INFORMATION: Exam: XR Chest Exam date and time: 08/27/2024 2:18 PM Age: 89 years old Clinical indication: Injury or trauma; Fall; Blunt trauma (contusions or hematomas) TECHNIQUE: Imaging protocol: Radiologic exam of the chest. Views: 1 view. Total images: 1 COMPARISON: CT CHEST WO CON 05/24/2024 8:06 PM FINDINGS: Tubes, catheters and devices: A pacemaker device is present, its leads in appropriate position. Lungs: Bilateral hyperinflation is present. Atelectatic and/or early infiltrative changes noted within the right lower lobe. Pleural spaces: Unremarkable. No pleural effusion. No pneumothorax. Heart/Mediastinum: Heart demonstrates mild diffuse enlargement. Bones/joints: Unremarkable. IMPRESSION: 1. Mild cardiomegaly. 2. Bilateral hyperinflation is present. 3. Atelectatic and/or early infiltrative changes noted within the right lower lobe.
--- NOTE | 2024-08-27 14:09 | XR_ITS ---
PROCEDURE INFORMATION: Exam: XR Pelvis Exam date and time: 08/27/2024 2:18 PM Age: 89 years old Clinical indication: Injury or trauma; Fall; Blunt trauma (contusions or hematomas); Bilateral; Hip and pelvic region TECHNIQUE: Imaging protocol: Radiologic exam of the pelvis. Views: 1 or 2 view. Total images: 1 COMPARISON: CT ABDOMEN PELVIS WO CON 05/24/2024 8:09 PM FINDINGS: Bones/joints: Bones are osteopenic. Degenerative changes of both hips. No evidence of acute fracture or dislocation. Soft tissues: Unremarkable. Vasculature: Mild atherosclerotic disease. IMPRESSION: 1. Bones are osteopenic. 2. Degenerative changes of both hips. 3. No evidence of acute fracture or dislocation.
--- NOTE | 2024-08-27 14:09 | CT_ITS ---
PROCEDURE INFORMATION: Exam: CT Cervical Spine Without Contrast Exam date and time: 08/27/2024 2:19 PM Age: 89 years old Clinical indication: Injury or trauma; Additional info: Fall head injury TECHNIQUE: Imaging protocol: Computed tomography of the cervical spine without contrast. Total images: 326 Radiation optimization: All CT scans at this facility use at least one of these dose optimization techniques: automated exposure control; mA and/or kV adjustment per patient size (includes targeted exams where dose is matched to clinical indication); or iterative reconstruction. COMPARISON: CT CERVICAL SPINE WO CON 01/24/2024 7:15 PM FINDINGS: Bones: The cervical spine demonstrates mild degenerative changes at multiple levels. No evidence of acute fracture. Prevertebral and retropharyngeal spaces: Prevertebral soft tissues are within normal limits. Lungs: Lung apices are normal. Soft tissues: Unremarkable. IMPRESSION: 1. The cervical spine demonstrates mild degenerative changes at multiple levels. 2. No evidence of acute fracture. 3. Prevertebral soft tissues are within normal limits.
[2024-08-27 14:30] VITALS: BP 131/81; PULSE 102; O2SAT 96
[2024-08-27 15:00] VITALS: BP 117/76; PULSE 114; O2SAT 95
--- NOTE | 2024-08-27 15:18 | ED_ITS ---
<Statement entered by Zion Ramos MD - 08/28/24 14:39> I was consulted by the MARIANN, and we discussed the complexity of the problems being addressed. I approved the treatment and management plan for this patient's care in the emergency department, thus performing a substantive portion of the medical decision making. Zion Ramos MD, [place], FACEP Discharge Plan Prescriptions Prescriptions: No Action (DME) pen needle, diabetic [BD Ultra-Fine Mini Pen Needle] 31 gauge x 3/16 needle See Rx Instructions .ROUTE .MEDSUPPLY Qty: 1200 Patient Comments: USE as directed TWICE DAILY with insulin Rx Instructions: As directed insulin glargine [Lantus Solostar U-100 Insulin] 100 unit/mL (3 mL) insulin pen 11 unit SQ BID 60 Days Qty: 13.2 4RF Rx Instructions: 13 IU sq in AM, then 11 IU sq in PM spironolactone 50 mg tablet 50 mg PO DAILY Qty: 30 2RF Rx Instructions: Please take 1 tablet p.o. daily nitroglycerin 0.4 mg tablet, sublingual 0.4 mg sublingual Q5M PRN (Reason: chest pain) Qty: 30 3RF Rx Instructions: do not exceed 3 doses per episode ferrous gluconate 324 mg (38 mg iron) tablet 324 mg PO DAILY 60 Days Qty: 60 2RF (DME) pen needle, diabetic [BD Ultra-Fine Short Pen Needle] 31 gauge x 5/16 needle See Rx Instructions .Route Rx Instructions: As directed or bid No. 5 mirabegron [Myrbetriq] 25 mg tablet extended release 24 hr See Rx Instructions .ROUTE .COMPLEX Qty: 60 3RF Dose Instruction: TAKE ONE TABLET BY MOUTH EVERY DAY FOR BLADDER Rx Instructions: TAKE ONE TABLET BY MOUTH EVERY DAY FOR BLADDER mecobalamin (vitamin B12) 5,000 mcg tablet,chewable 5,000 mcg PO DAILY Qty: 90 0RF bumetanide 1 mg tablet See Rx Instructions .ROUTE .COMPLEX Qty: 90 2RF Dose Instruction: TAKE ONE TABLET BY MOUTH EVERY DAY Rx Instructions: TAKE ONE TABLET BY MOUTH EVERY DAY cetirizine 10 mg tablet See Rx Instructions .ROUTE .COMPLEX Qty: 90 0RF Dose Instruction: TAKE ONE TABLET BY MOUTH EVERY DAY AT BEDTIME FOR ALLERGIES Rx Instructions: TAKE ONE TABLET BY MOUTH EVERY DAY AT BEDTIME FOR ALLERGIES Jardiance 10 mg tablet 20 mg PO DAILY 90 Days Qty: 180 0RF lactulose [Constulose] 10 gram/15 mL solution 10 g PO DAILY bisoprolol fumarate 5 mg tablet 2.5 mg PO HS Qty: 30 5RF verapamil 120 mg capsule,ext rel. pellets 24 hr See Rx Instructions .ROUTE .COMPLEX Qty: 90 0RF Dose Instruction: TAKE ONE CAPSULE BY MOUTH EVERY DAY Rx Instructions: TAKE ONE CAPSULE BY MOUTH EVERY DAY levothyroxine 50 mcg tablet See Rx Instructions .ROUTE .COMPLEX Qty: 90 0RF Dose Instruction: TAKE ONE TABLET BY MOUTH EVERY DAY Rx Instructions: TAKE ONE TABLET BY MOUTH EVERY DAY sertraline 100 mg tablet See Rx Instructions .ROUTE .COMPLEX Qty: 90 0RF Dose Instruction: TAKE ONE TABLET BY MOUTH EVERY DAY Rx Instructions: TAKE ONE TABLET BY MOUTH EVERY DAY clopidogrel 75 mg tablet 75 mg PO DAILY Qty: 90 0RF Xarelto 15 mg tablet See Rx Instructions .ROUTE .COMPLEX Qty: 90 3RF Dose Instruction: TAKE ONE TABLET BY MOUTH EVERY NIGHT AT BEDTIME --TAKE WITH FOOD-- Rx Instructions: TAKE ONE TABLET BY MOUTH EVERY NIGHT AT BEDTIME --TAKE WITH FOOD-- oxycodone 5 mg tablet 2.5 mg PO Q4-6H PRN (Reason: pain) Qty: 60 0RF (DME) FreeStyle Kai 2 Sensor Kit See Rx Instructions .ROUTE .COMPLEX Qty: 1 2RF Dose Instruction: USE DIRECTED Rx Instructions: USE DIRECTED omeprazole 40 mg capsule,delayed release(DR/EC) See Rx Instructions .ROUTE .COMPLEX Qty: 90 0RF Dose Instruction: TAKE ONE CAPSULE BY MOUTH EVERY DAY Rx Instructions: TAKE ONE CAPSULE BY MOUTH EVERY DAY ondansetron HCl 8 mg tablet See Rx Instructions .ROUTE .COMPLEX Qty: 90 0RF Dose Instruction: TAKE ONE TABLET BY MOUTH EVERY 12 HOURS NEEDED FOR NAUSEA/VOMITING Rx Instructions: TAKE ONE TABLET BY MOUTH EVERY 12 HOURS NEEDED FOR NAUSEA/VOMITING rvnxrlgihnap-ousv-mvljr acid 1 EACH tablet 1 each PO DAILY fluticasone propionate 50 mcg/actuation spray,suspension 1 spray intranasal DAILY Rx Instructions: instill 1 SPRAY IN EACH NOSTRIL DAILY FOR ALLERGY symptoms isosorbide mononitrate 30 mg tablet extended release 24 hr 15 mg PO DAILY Patient Comments: TAKE 1/2 TABLET BY MOUTH EVERY DAY FOR CHEST pain atorvastatin 40 mg tablet 40 mg PO HS Patient Comments: TAKE ONE TABLET BY MOUTH EVERY DAY Referrals Follow up/Referrals: Richard Gutiérrez DO [Primary Care Provider] - See instructions Activity Restrictions/Add. Instructions Additional Instructions/Restrictions: Follow up with your PCP this week. Return to ER for increase pain, confusion or vomiting. Clinical Impressions Clinical Impression: Fall, Contusion of head Instructions Patient Instructions: Closed Head Injury Print Language Print Language: Slovenian Discharge ED Provider: Zion Ramos General Adult HPI General Chief complaint: Fall Stated complaint: fall Time Seen by Provider: 08/27/24 13:57 Mode of Arrival: EMS Source of Information: Patient Limitations: No Limitations Description of Symptoms (Recalled from ER Triage Doc. by RN): pt fell hit back side of head. pt on blood thinners History of Present Illness HPI narrative: Patient presents after a fall. Patient reports that she turned to put the milk in the fridge and fell back hitting her head. Denies LOC/N/V. She does c/o headache. She does take Xarelto. Patient denies any hip or back pain. MD complaint: fall, headache Onset (ago): unknown (just prior to arrival ) Location: head Radiation: non-radiation Severity: moderate Consistency: constant Relieving factors: none Exacerbating factors: none Associated symptoms: denies other symptoms Treatments prior to arrival: none Related Data Home Medications ?Medication ?Instructions ?Recorded ?Confirmed multivitamin-ferrous 1 each PO DAILY Supplement 08/18/21 08/22/24 fumarate-folic acid 18 mg-400 mcg tablet fluticasone propionate 50 1 spray intranasal DAILY 01/24/24 08/22/24 mcg/actuation nasal spray,suspension isosorbide mononitrate 30 mg 15 mg PO DAILY 01/25/24 08/22/24 tablet,extended release 24 hr pen needle, diabetic 31 gauge x 03/17/24 08/22/24 5/16 (BD Ultra-Fine Short Pen Needle) pen needle, diabetic 31 gauge x #1,200 ea 03/22/24 08/22/24 3/16 (BD Ultra-Fine Mini Pen Needle) atorvastatin 40 mg tablet 40 mg PO HS 03/31/24 08/22/24 lactulose 10 gram/15 mL oral 10 g PO DAILY 06/27/24 08/22/24 solution (Constulose) Previous Rx's ?Medication ?Instructions ?Recorded ferrous gluconate 324 mg (38 mg 324 mg PO DAILY 60 days #60 tabs 11/08/23 iron) tablet nitroglycerin 0.4 mg sublingual 0.4 mg sublingual Q5M PRN chest 12/20/23 tablet pain #30 tabs mirabegron 25 mg tablet,extended See Rx Instructions .Route 05/02/24 release 24 hr (Myrbetriq) .COMPLEX #60 tabs insulin glargine 100 unit/mL (3 11 unit (0.11 mL) SQ BID 60 days 05/15/24 mL) subcutaneous pen (Lantus #13.2 mL Solostar U-100 Insulin) mecobalamin (vitamin B12) 5,000 5,000 mcg PO DAILY vitamin B12 05/18/24 mcg chewable tablet deficiency #90 tabs bumetanide 1 mg tablet See Rx Instructions .Route 05/22/24 .COMPLEX #90 tabs cetirizine 10 mg tablet See Rx Instructions .Route 05/29/24 .COMPLEX #90 tabs empagliflozin 10 mg tablet 20 mg (2 x 10 mg) PO DAILY 90 days 06/02/24 (Jardiance) #180 tabs bisoprolol fumarate 5 mg tablet 2.5 mg (1/2 x 5 mg) PO HS #30 tabs 06/29/24 levothyroxine 50 mcg tablet See Rx Instructions .Route 07/07/24 .COMPLEX #90 tabs verapamil 120 mg 24 hr See Rx Instructions .Route 07/07/24 capsule,extended release .COMPLEX #90 caps sertraline 100 mg tablet See Rx Instructions .Route 07/13/24 .COMPLEX #90 tabs clopidogrel 75 mg tablet 75 mg PO DAILY heart stents #90 07/18/24 tabs rivaroxaban 15 mg tablet (Xarelto) See Rx Instructions .Route 07/28/24 .COMPLEX #90 tabs oxycodone 5 mg tablet 2.5 mg (1/2 x 5 mg) PO Q4-6H PRN 07/31/24 pain #60 tabs flash glucose sensor (FreeStyle #1 kit 08/16/24 Kai 2 Sensor kit) omeprazole 40 mg capsule,delayed See Rx Instructions .Route 08/17/24 release .COMPLEX #90 caps spironolactone 50 mg tablet 50 mg PO DAILY #30 tabs 08/22/24 ondansetron HCl 8 mg tablet See Rx Instructions .Route 08/23/24 .COMPLEX nausea and vomiting #90 tabs Allergies Allergy/AdvReac Type Severity Reaction Status Date / Time methylprednisolone Allergy Mild Elevated Verified 08/22/24 12:58 glucose [facility] Disclaimer: The information contained in this section may have been updated after the patient was seen, as this information can be updated by other users. Medical History Chronic Kidney Disease Acute on chronic heart failure with preserved ejection fraction (HFpEF) Seasonal allergies Hyperlipemia Hypertension Atypical angina Abnormal cardiovascular stress test Nausea vomiting and diarrhea Atypical chest pain Fatigue Gastroenteritis Arthritis History of anemia History of gastroesophageal reflux (GERD) Diabetes mellitus, type 2 History of cataract Arrhythmia History of pacemaker History of left heart catheterization (LHC) Gastritis Acute blood loss anemia (ABLA) Hyperglycemia Angina at rest Hyperglycemia without ketosis PAF (paroxysmal atrial fibrillation) Acute kidney injury DKA (diabetic ketoacidosis) Dyspnea Lactose intolerance Strep throat Pancytopenia 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 antigen is unknown, or is not H7 Hypokalemia Hypotension Digitalis toxicity Edema SOB (shortness of breath) Leukocytosis Colitis Viral gastroenteritis Lactic acidosis Hyperglycemia due to diabetes mellitus Palpitations Primary osteoarthritis of right shoulder CHF (congestive heart failure) Cardiomyopathy Atrial fibrillation with RVR Right shoulder pain Peripheral arterial disease Atrial fibrillation Hyperkalemia Renal insufficiency Urinary tract infection Anemia Acute renal insufficiency Cardiogenic shock Diabetes Pre-syncope Contusion of sternum Fatigue SOB (shortness of breath) on exertion Leg pain, bilateral HLD (hyperlipidemia) Angina pectoris Cardiac pacemaker in situ will check labs SSS (sick sinus syndrome) HTN (hypertension) Pulmonary HTN Chest wall pain following surgery Report soreness r/t post op pacemaker Coronary artery disease Surgical History History of esophagogastroduodenoscopy (EGD) Hx of tonsillectomy History of colonoscopy History of hysterectomy History of appendectomy History of cholecystectomy Family History Other No significant family history Social History (Updated 08/27/24 @ 15:27 by RENNY Hernandez) Smoking Status: Unknown if ever smoked second hand exposure: No alcohol intake: never substance use type: denies use current occupational status: disabled Travel in the last 8 weeks: None household members: family housing: house caffeine: No Other Medical History Have you received the Flu Vaccine for this season: No Have you received the Pneumonia Vaccine: No ROS Obtained: Yes All systems reviewed & no additional complaints except as documented Physical Exam General General appearance: alert and in no apparent distress Head Head exam: atraumatic, normocephalic and other (contusion to occipital scalp ) Eye Eye exam: Present normal appearance and other (Chronic nystagmus, Left eye stays closed, 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 ) ENT ENT exam: Present TM's normal bilaterally Chest Chest inspection: Present symmetric chest wall rise Respiratory Respiratory exam: Present normal lung sounds bilaterally; Absent wheezes or stridor Cardiovascular Cardiovascular exam: Present regular rate and normal rhythm; Absent systolic murmur Abdominal Exam Abdominal exam: Present soft, normal bowel sounds and ascites; Absent guarding or rigidity Extremities Exam Extremities exam: Present full ROM Back Exam Comment: Right upper back contusion noted, no midline spine tenderness Neurological Exam Neurological exam: Present alert and oriented X3 Psychiatric Psychiatric exam: Present normal affect and normal mood Skin Skin exam: Present warm, dry and intact Medical Decision Making Medical Records Screening: Per USPSTF and CDC recommendations, given the prevalence of disease in our region, it is our hospital?s policy to screen for HIV and viral Hepatitis for all patients aged 18 and over and those with ongoing risk factors. Thomas Inquiry Pt receiving controlled substance: No Vital Signs: 08/27/24 13:54 08/27/24 14:30 08/27/24 15:00 Temperature 98.4 F Temperature Source Oral Pulse Rate 102 H 114 H Pulse Rate [Right Radial] 116 H Respiratory Rate 18 Blood Pressure 131/81 117/76 Blood Pressure [Right Arm] 134/83 Blood Pressure Mean [Right Arm] 100 Blood Pressure Source Blood Pressure Position 02 Sat by Pulse Oximetry 98 96 95 Oxygen Delivery Method Room Air Room Air Room Air 08/27/24 15:27 08/27/24 15:30 Temperature 98.5 F Temperature Source Oral Pulse Rate 103 H 87 Pulse Rate [Right Radial] Respiratory Rate 16 Blood Pressure 117/76 118/72 Blood Pressure [Right Arm] Blood Pressure Mean [Right Arm] Blood Pressure Source Automatic Cuff Blood Pressure Position Sitting 02 Sat by Pulse Oximetry 92 L Oxygen Delivery Method Room Air Room Air Orders (Tests/Meds): ORDERS Category Date Time Status CT cervical spine wo con Stat Cat Scan 08/27/24 14:[address] head/brain wo con Stat Cat Scan 08/27/24 14:09 Completed Chest XR -- portable [XR chest portable] Stat Exams 08/27/24 14:09 Completed XR pelvis 1-2V Stat Exams 08/27/24 14:09 Completed Radiology Data #1: Image(s): Chest (IMPRESSION: 1. Mild cardiomegaly. 2. Bilateral hyperinflation is present. 3. Atelectatic and/or early infiltrative changes noted within the right lower lobe. ) #2: Image(s): Pelvis (Negative for fracture ) CT Data CT Scan: Head (IMPRESSION: 1. Age-related atrophy and chronic white matter ischemic changes, with no evidence of an acute intracranial abnormality. 2. Posterior soft tissue hematoma on the right. ) and C-Spine (IMPRESSION: 1. The cervical spine demonstrates mild degenerative changes at multiple levels. 2. No evidence of acute fracture. 3. Prevertebral soft tissues are within normal limits. ) Time Received: 15:26 Medical Decision Narrative: Patient presents after a fall hitting her head. This was a mechanical fall. In summary patient is a 89-year-old who presents the emergency department for evaluation of fall with head injury. Patient is slightly tachycardic upon arrival, afebrile. Contusion noted to occipital scalp as well as right upper back. Differential diagnosis includes intracranial hemorrhage, cervical spine fracture, rib fracture, pneumothorax, scalp contusion, pelvic fracture. Initial workup will be conducted with CT brain and C-spine, chest x-ray, pelvic x-ray. Tachycardia resolved upon reevaluation. Given this patient is appropriate for discharge with strict return precautions. She is agreeable to plan. I informally interpreted the patient's chest x-ray and pelvic x-ray which were normal. Critical Care Critical Care Time Critical Care Time: No
[2024-08-27 15:27] VITALS: BP 117/76; PULSE 103; RESP 16; TEMP 36.9; O2SAT 99
[2024-08-27 15:30] VITALS: BP 118/72; PULSE 87; O2SAT 92
== END 2024-08-27 15:38 | disposition home or self-care (01) ==
PROVIDERS: Emergency Provider Student in an Organized Health Care Education/Training Program; PCP Internal Medicine
DX: S00.93XA Contusion of unspecified part of head, initial encounter (principal); R51.9 Headache, unspecified; S09.90XA Unspecified injury of head, initial encounter; W01.198A Fall on same level from slipping, tripping and stumbling with subsequent striking against other object, initial encounter; Y93.89 Activity, other specified; Y92.000 Kitchen of unspecified non-institutional (private) residence as the place of occurrence of the external cause
CPT/HCPCS: 70450; 71045; 72125; 72170; 99284

== ENCOUNTER 2024-09-05 09:35 | Outpatient (CLI) | payer MEDICARE, MEDICAID, SELFPAY ==
--- NOTE | 2024-09-05 09:38 | US_ITS ---
FINAL REPORT CLINICAL HISTORY: CIRRHOSIS OF LIVER/ASCITES - RT SIDE - FAIZAN LAWSON -- 3350 ML REMOVED FINDINGS: ULTRASOUND-GUIDED PARACENTESIS HISTORY:Ascites ATTENDING PHYSICIAN: Dr. Gutierrez PHYSICIAN ELECT[employer]ICAL EQUIPMENT ASSEMBLER: Faizan Lovelace PA-C FINDINGS: After informed consent was obtained and timeout procedure performed, fluid was localized in the right lower quadrant under ultrasound guidance and marked on the skin appropriately. The patient was then prepped and draped in the usual sterile fashion and the skin was anesthetized with 1% lidocaine. An ultrasound guided paracentesis was then performed using a Turkel needle. Approximately 3.35 liters of fluid was removed. No fluid was sent to lab. The patient tolerated the procedure well and there were no immediate complications. IMPRESSION: Ultrasound guided right lower quadrant paracentesis as discussed above. Films reviewed , interpreted and dictated by Dr. Gutierrez Transcribed by Faizan Lovelace PA-C. Reviewed, Interpreted and Dictated by Jerod Gutierrez III, MD Transcribed by RENNY Feng Authenticated and [facility]
== END 2024-09-05 23:59 | disposition home or self-care (01) ==
LOC: RAD 09:36
PROVIDERS: PCP Internal Medicine; Visit Provider Internal Medicine
DX: R18.8 Other ascites (principal); K74.60 Unspecified cirrhosis of liver
CPT/HCPCS: 49083

== ENCOUNTER 2024-10-12 15:18 | Inpatient (IN) | payer MEDICARE, MEDICAID, SELFPAY ==
[2024-10-12 15:14] VITALS: BP 105/67; PULSE 110; RESP 20; TEMP 36.6; O2SAT 93; BMI 24.2
--- NOTE | 2024-10-12 15:22 | XR_ITS ---
FINAL REPORT CLINICAL HISTORY: fall, left hip injury FINDINGS: Left hip Three views were obtained. There is an oblique intertrochanteric fracture of the proximal left femur with mild displacement. The femoral head is properly located. There is mild to moderate hip joint space narrowing. IMPRESSION: Fracture as above. Reviewed, Interpreted and Dictated by Tremayne Morelos MD Transcribed by Neda Francisco Authenticated and [facility]
--- NOTE | 2024-10-12 15:24 | HMH.EDGENADL ---
Discharge Plan Disposition Patient Disposition: Admitted Prescriptions Prescriptions: No Action spironolactone 50 mg tablet 50 mg PO DAILY Qty: 30 2RF Rx Instructions: Please take 1 tablet p.o. daily nitroglycerin 0.4 mg tablet, sublingual 0.4 mg sublingual Q5M PRN (Reason: chest pain) Qty: 30 3RF Rx Instructions: do not exceed 3 doses per episode bumetanide 1 mg tablet See Rx Instructions .ROUTE .COMPLEX Qty: 90 2RF Dose Instruction: TAKE ONE TABLET BY MOUTH EVERY DAY Rx Instructions: TAKE ONE TABLET BY MOUTH EVERY DAY Jardiance 10 mg tablet 20 mg PO DAILY 90 Days Qty: 180 3RF atorvastatin 40 mg tablet 40 mg PO HS 90 Days Qty: 90 3RF ondansetron HCl 8 mg tablet 8 mg PO Q8H PRN (Reason: nausea and vomiting) 60 Days Qty: 90 4RF oxycodone 5 mg tablet 2.5 mg PO Q4-6H PRN (Reason: pain) Qty: 90 0RF (DME) pen needle, diabetic [BD Ultra-Fine Short Pen Needle] 31 gauge x 5/16 needle See Rx Instructions .Route Rx Instructions: As directed or bid No. 5 mirabegron [Myrbetriq] 25 mg tablet extended release 24 hr See Rx Instructions .ROUTE .COMPLEX Qty: 60 3RF Dose Instruction: TAKE ONE TABLET BY MOUTH EVERY DAY FOR BLADDER Rx Instructions: TAKE ONE TABLET BY MOUTH EVERY DAY FOR BLADDER mecobalamin (vitamin B12) 5,000 mcg tablet,chewable 5,000 mcg PO DAILY Qty: 90 0RF bisoprolol fumarate 5 mg tablet 2.5 mg PO HS Qty: 30 5RF sertraline 100 mg tablet See Rx Instructions .ROUTE .COMPLEX Qty: 90 0RF Dose Instruction: TAKE ONE TABLET BY MOUTH EVERY DAY Rx Instructions: TAKE ONE TABLET BY MOUTH EVERY DAY clopidogrel 75 mg tablet 75 mg PO DAILY Qty: 90 0RF Xarelto 15 mg tablet See Rx Instructions .ROUTE .COMPLEX Qty: 90 3RF Dose Instruction: TAKE ONE TABLET BY MOUTH EVERY NIGHT AT BEDTIME --TAKE WITH FOOD-- Rx Instructions: TAKE ONE TABLET BY MOUTH EVERY NIGHT AT BEDTIME --TAKE WITH FOOD-- (DME) FreeStyle Kai 2 Sensor Kit See Rx Instructions .ROUTE .COMPLEX Qty: 1 2RF Dose Instruction: USE DIRECTED Rx Instructions: USE DIRECTED omeprazole 40 mg capsule,delayed release(DR/EC) See Rx Instructions .ROUTE .COMPLEX Qty: 90 0RF Dose Instruction: TAKE ONE CAPSULE BY MOUTH EVERY DAY Rx Instructions: TAKE ONE CAPSULE BY MOUTH EVERY DAY cetirizine 10 mg tablet See Rx Instructions .ROUTE .COMPLEX Qty: 90 0RF Dose Instruction: TAKE ONE TABLET BY MOUTH AT BEDTIME FOR ALLERGIES Rx Instructions: TAKE ONE TABLET BY MOUTH AT BEDTIME FOR ALLERGIES ferrous gluconate 324 mg (38 mg iron) tablet See Rx Instructions .ROUTE .COMPLEX Qty: 90 0RF Dose Instruction: TAKE ONE TABLET BY MOUTH ONCE A DAY Rx Instructions: TAKE ONE TABLET BY MOUTH ONCE A DAY docusate sodium 100 mg capsule See Rx Instructions .ROUTE .COMPLEX Qty: 90 0RF Dose Instruction: TAKE ONE CAPSULE BY MOUTH ONCE A DAY Rx Instructions: TAKE ONE CAPSULE BY MOUTH ONCE A DAY insulin glargine [Lantus Solostar U-100 Insulin] 100 unit/mL (3 mL) insulin pen 11 unit SQ BID 60 Days Qty: 13.2 4RF Rx Instructions: 13 IU sq in AM, then 11 IU sq in PM levothyroxine 50 mcg tablet See Rx Instructions .ROUTE .COMPLEX Qty: 90 0RF Dose Instruction: TAKE ONE TABLET BY MOUTH EVERY DAY Rx Instructions: TAKE ONE TABLET BY MOUTH EVERY DAY verapamil 120 mg capsule,ext rel. pellets 24 hr See Rx Instructions .ROUTE .COMPLEX Qty: 90 0RF Dose Instruction: TAKE ONE CAPSULE BY MOUTH EVERY DAY Rx Instructions: TAKE ONE CAPSULE BY MOUTH EVERY DAY (DME) pen needle, diabetic [BD Ultra-Fine Mini Pen Needle] 31 gauge x 3/16 needle See Rx Instructions .ROUTE .MEDSUPPLY Qty: 1200 3RF Patient Comments: USE as directed TWICE DAILY with insulin Rx Instructions: As directed [id number] acid 1 EACH tablet 1 each PO DAILY fluticasone propionate 50 mcg/actuation spray,suspension 1 spray intranasal DAILY Rx Instructions: instill 1 SPRAY IN EACH NOSTRIL DAILY FOR ALLERGY symptoms isosorbide mononitrate 30 mg tablet extended release 24 hr 15 mg PO DAILY Patient Comments: TAKE 1/2 TABLET BY MOUTH EVERY DAY FOR CHEST pain Referrals Follow up/Referrals: Provider,Referral, MD [Referring] - See instructions Clinical Impressions Clinical Impression: Closed fracture of left hip Print Language Print Language: Jamaican Discharge ED Provider: Zion Ramos General Adult HPI General Chief complaint: Fall Stated complaint: L hip pain Time Seen by Provider: 10/12/24 15:19 Mode of Arrival: EMS Source of Information: Patient and EMS Limitations: No Limitations Description of Symptoms (Recalled from ER Triage Doc. by RN): left hip from a fall. rotated. on blood thinner. History of Present Illness HPI narrative: Patient is an 89-year-old with numerous comorbidities who presents today with a left hip injury after mechanical fall. She states she did not have any syncopal episodes had no chest pain shortness of breath etc. Significant pain in her left hip has been unable to walk since that time. She received 100 mcg of fentanyl by EMS prehospital states she feels significantly better. She had no difficulty with movement or sensation injury. She denies injuries elsewhere she denies any head neck chest abdomen pelvis or other long bone pain. Related Data Home Medications ?Medication ?Instructions ?Recorded ?Confirmed multivitamin-ferrous 1 each PO DAILY Supplement 08/18/21 09/04/24 fumarate-folic acid 18 mg-400 mcg tablet fluticasone propionate 50 1 spray intranasal DAILY 01/24/24 09/04/24 mcg/actuation nasal spray,suspension isosorbide mononitrate 30 mg 15 mg PO DAILY 01/25/24 09/04/24 tablet,extended release 24 hr pen needle, diabetic 31 gauge x 03/17/24 09/04/2402/16 (BD Ultra-Fine Short Pen Needle) Previous Rx's ?Medication ?Instructions ?Recorded nitroglycerin 0.4 mg sublingual 0.4 mg sublingual Q5M PRN chest 12/20/23 tablet pain #30 tabs mirabegron 25 mg tablet,extended See Rx Instructions .Route 05/02/24 release 24 hr (Myrbetriq) .COMPLEX #60 tabs mecobalamin (vitamin B12) 5,000 5,000 mcg PO DAILY vitamin B12 05/18/24 mcg chewable tablet deficiency #90 tabs bisoprolol fumarate 5 mg tablet 2.5 mg (1/2 x 5 mg) PO HS #30 tabs 06/29/24 sertraline 100 mg tablet See Rx Instructions .Route 07/13/24 .COMPLEX #90 tabs clopidogrel 75 mg tablet 75 mg PO DAILY heart stents #90 07/18/24 tabs rivaroxaban 15 mg tablet (Xarelto) See Rx Instructions .Route 07/28/24 .COMPLEX #90 tabs flash glucose sensor (FreeStyle #1 kit 08/16/24 Kai 2 Sensor kit) spironolactone 50 mg tablet 50 mg PO DAILY #30 tabs 08/22/24 atorvastatin 40 mg tablet 40 mg PO HS 90 days #90 tabs 09/04/24 bumetanide 1 mg tablet See Rx Instructions .Route 09/04/24 .COMPLEX #90 tabs empagliflozin 10 mg tablet 20 mg (2 x 10 mg) PO DAILY 90 days 09/04/24 (Jardiance) #180 tabs ondansetron HCl 8 mg tablet 8 mg PO Q8H PRN nausea and 09/04/24 vomiting 60 days #90 tabs oxycodone 5 mg tablet 2.5 mg (1/2 x 5 mg) PO Q4-6H PRN 09/05/24 pain #90 tabs omeprazole 40 mg capsule,delayed See Rx Instructions .Route 10/02/24 release .COMPLEX #90 caps cetirizine 10 mg tablet See Rx Instructions .Route 10/05/24 .COMPLEX #90 tabs docusate sodium 100 mg capsule See Rx Instructions .Route 10/06/24 .COMPLEX #90 caps ferrous gluconate 324 mg (38 mg See Rx Instructions .Route 10/06/24 iron) tablet .COMPLEX #90 tabs insulin glargine 100 unit/mL (3 11 unit (0.11 mL) SQ BID 60 days 10/06/24 mL) subcutaneous pen (Lantus #13.2 mL Solostar U-100 Insulin) levothyroxine 50 mcg tablet See Rx Instructions .Route 10/06/24 .COMPLEX #90 tabs verapamil 120 mg 24 hr See Rx Instructions .Route 10/06/24 capsule,extended release .COMPLEX #90 caps pen needle, diabetic 31 gauge x #1,200 ea 10/09/24/16 (BD Ultra-Fine Mini Pen Needle) Allergies Allergy/AdvReac Type Severity Reaction Status Date / Time methylprednisolone Allergy Mild Elevated Verified 09/04/24 13:49 glucose [facility] Disclaimer: The information contained in this section may have been updated after the patient was seen, as this information can be updated by other users. Medical History Chronic Kidney Disease Acute on chronic heart failure with preserved ejection fraction (HFpEF) Seasonal allergies Hyperlipemia Hypertension Atypical angina Abnormal cardiovascular stress test Nausea vomiting and diarrhea Atypical chest pain Fatigue Gastroenteritis Arthritis History of anemia History of gastroesophageal reflux (GERD) Diabetes mellitus, type 2 History of cataract Arrhythmia History of pacemaker History of left heart catheterization (LHC) Gastritis Acute blood loss anemia (ABLA) Hyperglycemia Angina at rest Hyperglycemia without ketosis PAF (paroxysmal atrial fibrillation) Acute kidney injury DKA (diabetic ketoacidosis) Dyspnea Lactose intolerance Strep throat Pancytopenia 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 antigen is unknown, or is not H7 Hypokalemia Hypotension Digitalis toxicity Edema SOB (shortness of breath) Leukocytosis Colitis Viral gastroenteritis Lactic acidosis Hyperglycemia due to diabetes mellitus Palpitations Primary osteoarthritis of right shoulder CHF (congestive heart failure) Cardiomyopathy Atrial fibrillation with RVR Right shoulder pain Peripheral arterial disease Atrial fibrillation Hyperkalemia Renal insufficiency Urinary tract infection Anemia Acute renal insufficiency Cardiogenic shock Diabetes Pre-syncope Contusion of sternum Fatigue SOB (shortness of breath) on exertion Leg pain, bilateral HLD (hyperlipidemia) Angina pectoris Cardiac pacemaker in situ will check labs SSS (sick sinus syndrome) HTN (hypertension) Pulmonary HTN Chest wall pain following surgery Report soreness r/t post op pacemaker Coronary artery disease Surgical History History of esophagogastroduodenoscopy (EGD) Hx of tonsillectomy History of colonoscopy History of hysterectomy History of appendectomy History of cholecystectomy Family History Other No significant family history Social History Smoking Status: Never smoker second hand exposure: No alcohol intake: never substance use type: denies use current occupational status: disabled Travel in the last 8 weeks: None household members: family housing: house caffeine: No Have you lived/traveled outside [place] in past 30 days?: No Contact w/someone who lives/traveled outside US past 30 days?: No Exposure to someone with infectious disease in past 14 days?: No Do you have a fever (greater than 100.4 F or 38 C)?: No Have you tested positive for COVID-19: No Exposed to someone with COVID-19 in past 14 days?: No Do you have a sore throat?: No Do you have a cough?: No Do you have any weakness?: No Do you have any diarrhea?: No Are you experiencing any unusual bleeding?: No Do you have any muscle aches/pain?: No Do you have any abdominal pain?: No Are you experiencing loss of taste or smell?: No Other Medical History Have you received the Flu Vaccine for this season: No Have you received the Pneumonia Vaccine: Yes ROS Obtained: Yes All systems reviewed & no additional complaints except as documented Physical Exam General General appearance: alert and in no apparent distress Head Head exam: atraumatic and normocephalic Neck Neck exam: Present full ROM; Absent tenderness Chest Chest inspection: Present normal inspection; Absent tenderness Respiratory Respiratory exam: Present normal lung sounds bilaterally; Absent respiratory distress Cardiovascular Cardiovascular exam: Present regular rate and normal rhythm Abdominal Exam Abdominal exam: Present soft; Absent distention or tenderness Extremities Exam Extremities exam: Present other (Left hip shortened and externally rotated significant pain over the left greater trochanter region neurovascular intact distal to the injury) Neurological Exam Neurological exam: Present alert and oriented X3 Medical Decision Making Medical Records Screening: Per USPSTF and CDC recommendations, given the prevalence of disease in our region, it is our hospital?s policy to screen for HIV and viral Hepatitis for all patients aged 18 and over and those with ongoing risk factors. Thomas Inquiry Pt receiving controlled substance: No Vital Signs: 10/12/24 15:14 10/12/24 15:30 Temperature 97.9 F Temperature Source Oral Pulse Rate 89 Pulse Rate [Right] 110 H Respiratory Rate 20 20 Blood Pressure 114/70 Blood Pressure [Right Arm] 105/67 L Blood Pressure Mean 86 Blood Pressure Mean [Right Arm] 79 02 Sat by Pulse Oximetry 93 L 98 Oxygen Delivery Method Room Air Lab Data Lab results reviewed: Yes I reviewed the patient's lab results. Lab Results 10/12/24 15:18: WBC 8.4, RBC 3.45 L, Hgb 8.7 L, Hct 27.6 L, MCV 80.0 L, MCH 25.2 L, MCHC 31.5 L, RDW 16.8, Plt Count 198, MPV 10.6 H, Neut % (Auto) 70.6, Lymph % (Auto) 18.4, [place] % (Auto) 8.9, Eos % (Auto) 1.2, Baso % (Auto) 0.2, Neut # (Auto) 5.9, Lymph # (Auto) 1.5, [place] # (Auto) 0.7, Eos # (Auto) 0.1, Baso # (Auto) 0.0, PT 13.4 H, INR 1.22 H, APTT 26.7, Sodium 132 L, Potassium 5.8 H, Chloride 96 L, Carbon Dioxide 24, Anion Gap 17.8 H, BUN 77 H, Creatinine 1.60 H, Estimated Creat Clear 22, Estimated GFR 30 L, Est GFR ( Amer) 37 L, Glucose 298 H, Calcium 9.2, Total Bilirubin 0.8, AST 48 H, ALT 21, Alkaline Phosphatase 134 H, Total Protein 6.7, Albumin 4.2, Globulin 2.5, Albumin/Globulin Ratio 1.7 10/12/24 15:18 10/12/24 15:18 Orders (Tests/Meds): ED MEDICATIONS Discontinued Medications Generic Name Dose Route Start Last Admin Trade Name Javierq PRN Reason Stop Dose Admin Morphine Sulfate 4 mg 10/12/24 15:45 10/12/24 15:54 Morphine 4mg/Ml Syringe IV 10/12/24 15:46 4 mg ONCE ONE Administration ORDERS Category Date Time Status Hip XR left minimum 2 views [XR hip LT 2-3V w/pelvis] Exams 10/12/24 15:22 Taken Stat CBC w/Auto Diff [Complete Blood Count Auto Diff] Stat Lab 10/12/24 15:18 Completed CMP [Comprehensive Metabolic Panel] Stat Lab 10/12/24 15:18 Completed PT/PTT Stat Lab 10/12/24 15:18 Completed Medical Decision Narrative: 89-year-old with significant comorbidities presents today with what appears to be a hip fracture versus dislocation. Will get a plain from the pelvis and the left hip and reassess. Preoperative labs and EKG performed as well as anticipation of the operating room. She has a very high risk regardless of the healthcare system taking care of her. I will discuss the case with our orthopedic surgeon after initial plain films are performed. Left hip and pelvis x-ray performed which I personally interpreted which shows a left intertrochanteric hip fracture. She has extensive comorbidities including heart failure and is at baseline chronic kidney disease with a creatinine of 1.6 at its baseline she also has cirrhosis with no significant ascites. She is almost from a surgical standpoint. I discussed the case with Dr. Rendon as well as Dr. Greer who are all agreed to keep the patient here. Patient and family are aware of the risks of surgery and would like to proceed with surgical intervention. Patient was admitted to hospital medicine for further evaluation and management. Critical Care Critical Care Time Critical Care Time: Yes Attestation: On 10/12/24, the high probability of a clinically significant, sudden or life threatening deterioration of the following system(s) required my full and direct attention, intervention and personal management. The time I documented below is in addition to time spent performing reported procedures but includes the following listed in this critical care notation. Total Time Total Critical Care Time: 35
[2024-10-12 15:30] VITALS: BP 114/70; PULSE 89; RESP 20; O2SAT 98
[2024-10-12 15:31] LABS: Basophils % 0.2 % (0.1-2.0); Eosinophils # 0.1 K/mm3 (0.0-0.4); Eosinophils % 1.2 % (0.1-12.0); Hematocrit 27.6 % (37.0-47.0); Hemoglobin 8.7 g/dL (12.2-16.2); Lymphocytes # 1.5 K/mm3 (0.7-4.5); Lymphocytes % 18.4 % (10-50); Mean Corpuscular HGB Conc 31.5 g/dL (31.8-35.4); Mean Corpuscular Hemoglobin 25.2 pg (27.0-31.2); Mean Platelet Volume 10.6 fl (7.4-10.4); Monocytes # 0.7 K/mm3 (0.1-1.0); Monocytes % 8.9 % (1.7-9.3); Neutrophils # 5.9 K/mm3 (1.8-7.8); Neutrophils % 70.6 % (37.0-80.0); Platelet Count 198 K/mm3 (142-424); Red Blood Count 3.45 M/mm3 (4.20-5.40); Red Cell Distribution Width 16.8 % (11.5-17.5); White Blood Count 8.4 K/mm3 (4.8-10.8)
[2024-10-12 15:42] LABS: Activated Partial Thrombo Time 26.7 seconds (22.8-30.6); INR 1.22 (0.9-1.1); Prothrombin Time 13.4 seconds (10.1-12.5)
[2024-10-12 15:47] LABS: Chloride 96 mmol/L (98-107)
[2024-10-12 15:48] LABS: Albumin Level 4.2 g/dl (3.5-5.0); Potassium 5.8 mmoL/L (3.5-5.1); Sodium 132 mmol/L (136-145)
[2024-10-12 15:51] LABS: Alanine Aminotransferase 21 U/L (12-78); Albumin/Globulin Ratio 1.7 (1.1-1.8); Alkaline Phosphatase 134 U/L (38-126); Anion Gap 17.8 mEq/L (5-15); Aspartate Amino Transferase 48 U/L (14-36); Bilirubin,Total 0.8 mg/dl (0.2-1.3); Blood Urea Nitrogen 77 mg/dl (7-17); Carbon Dioxide 24 mmol/L (22.0-30.0); Creatinine Clearance Estimated 22 mL/min (50-200); Estimated Glomerular Filt Rate 30 ml/min (>60); GFR (African American) 37 ML/MIN (>60); Globulin 2.5 g/dL (1.3-3.2); Total Protein,Serum 6.7 g/dl (6.3-8.2)
[2024-10-12 15:52] LABS: Calcium 9.2 mg/dl (8.4-10.2); Glucose 298 mg/dl (74-100)
[2024-10-12] MEDS: MORPHINE 4MG/ML SYRINGE 4 MG IV (15:54)
--- NOTE | 2024-10-12 15:57 | ECG_ITS ---
APPROVED REPORT Exam: Resting ECG HR:95 bpm ECG Measurements Heart Rate 95 AXES QRSd 105 QRS 87 QT 355 T -76 QTc 408 Conclusion ATRIAL FIBRILLATION INDETERMINATE AXIS ST DEVIATION AND MODERATE T-WAVE ABNORMALITY, CONSIDER INFERIOR ISCHEMIA [-0.1+ mV T-WAVE IN II/aVF] ABNORMAL ECG UNCONFIRMED REPORT Electronically signed by : Armando Ramos, 10/12/2024 23:16:33
--- NOTE | 2024-10-12 16:19 | EXP.HP ---
History of Present Illness *Admission Date: 10/12/24 *Reason for visit:: Fall, left hip pain *History of present illness: Ms. Mallory is an 89-year-old female with past medical history of insulin-dependent diabetes, CKD 3, CAD, A-fib, pacemaker in situ, heart failure with preserved ejection fraction, cirrhosis with ascites, who presented after a mechanical fall from standing height at home today. States she did not pass out, hit her head, or lose consciousness. She said she was grabbing her blouse when she tripped and fell backwards. Had onset of left hip pain. Was brought to the ER via EMS due to inability to walk. Received fentanyl and transit prior to presentation to the hospital. Left leg shorter than right leg on presentation. Workup in the ER with stable chronic conditions but found to have left intertrochanteric fracture. Case discussed with orthopedics, recommends admission and holding of anticoagulation prior to surgery. Medicine consulted for admission and preoperative risk stratification. Upon arrival to the floor, patient is at baseline mentation. Family helps supplement history. Daughter and son at bedside. She denies fever, shortness of breath, chills, nausea or vomiting, diarrhea, confusion. Just complaining of pain in her hip. [facility] Disclaimer: The information contained in this section may have been updated after the patient was seen, as this information can be updated by other users. Medical History Chronic Kidney Disease Acute on chronic heart failure with preserved ejection fraction (HFpEF) Seasonal allergies Hyperlipemia Hypertension Atypical angina Abnormal cardiovascular stress test Nausea vomiting and diarrhea Atypical chest pain Fatigue Gastroenteritis Arthritis History of anemia History of gastroesophageal reflux (GERD) Diabetes mellitus, type 2 History of cataract Arrhythmia History of pacemaker History of left heart catheterization (LHC) Gastritis Acute blood loss anemia (ABLA) Hyperglycemia Angina at rest Hyperglycemia without ketosis PAF (paroxysmal atrial fibrillation) Acute kidney injury DKA (diabetic ketoacidosis) Dyspnea Lactose intolerance Strep throat Pancytopenia 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 antigen is unknown, or is not H7 Hypokalemia Hypotension Digitalis toxicity Edema SOB (shortness of breath) Leukocytosis Colitis Viral gastroenteritis Lactic acidosis Hyperglycemia due to diabetes mellitus Palpitations Primary osteoarthritis of right shoulder CHF (congestive heart failure) Cardiomyopathy Atrial fibrillation with RVR Right shoulder pain Peripheral arterial disease Atrial fibrillation Hyperkalemia Renal insufficiency Urinary tract infection Anemia Acute renal insufficiency Cardiogenic shock Diabetes Pre-syncope Contusion of sternum Fatigue SOB (shortness of breath) on exertion Leg pain, bilateral HLD (hyperlipidemia) Angina pectoris Cardiac pacemaker in situ SSS (sick sinus syndrome) HTN (hypertension) Pulmonary HTN Chest wall pain following surgery Coronary artery disease Surgical History History of esophagogastroduodenoscopy (EGD) Hx of tonsillectomy History of colonoscopy History of hysterectomy History of appendectomy History of cholecystectomy Family History Other Family history of cancer No significant family history Social History Smoking Status: Never smoker second hand exposure: No alcohol intake: never substance use type: denies use current occupational status: disabled Travel in the last 8 weeks: None household members: family housing: house caffeine: No Have you lived/traveled outside [place] in past 30 days?: No Contact w/someone who lives/traveled outside US past 30 days?: No Exposure to someone with infectious disease in past 14 days?: No Do you have a fever (greater than 100.4 F or 38 C)?: No Have you tested positive for COVID-19: No Exposed to someone with COVID-19 in past 14 days?: No Do you have a sore throat?: No Do you have a cough?: No Do you have any weakness?: No Do you have any diarrhea?: No Are you experiencing any unusual bleeding?: No Do you have any muscle aches/pain?: No Do you have any abdominal pain?: No Are you experiencing loss of taste or smell?: No Other Medical History Have you received the Flu Vaccine for this season: No Have you received the Pneumonia Vaccine: Yes Review of Systems Review of Systems Review of systems (narrative): 14 point review of systems performed, pertinent positives and negatives as per HPI Meds Home Medications and Allergies Home Medications ?Medication ?Instructions ?Recorded ?Confirmed ?Type multivitamin-ferrous 1 each PO DAILY Supplement 08/18/21 10/12/24 History fumarate-folic acid 18 mg-400 mcg tablet nitroglycerin 0.4 mg sublingual 0.4 mg sublingual Q5M PRN chest 12/20/23 10/12/24 Rx tablet pain #30 tabs fluticasone propionate 50 1 spray intranasal DAILY 01/24/24 10/12/24 History mcg/actuation nasal spray,suspension isosorbide mononitrate 30 mg 15 mg PO DAILY 01/25/24 10/12/24 History tablet,extended release 24 hr pen needle, diabetic 31 gauge x 03/17/24 09/04/24 History 5/16 (BD Ultra-Fine Short Pen Needle) mirabegron 25 mg tablet,extended See Rx Instructions .Route 05/02/24 10/12/24 Rx release 24 hr (Myrbetriq) .COMPLEX #60 tabs mecobalamin (vitamin B12) 5,000 5,000 mcg PO DAILY vitamin B12 05/18/24 10/12/24 Rx mcg chewable tablet deficiency #90 tabs bisoprolol fumarate 5 mg tablet 2.5 mg (1/2 x 5 mg) PO HS #30 tabs 06/29/24 10/12/24 Rx sertraline 100 mg tablet See Rx Instructions .Route 07/13/24 10/12/24 Rx .COMPLEX #90 tabs clopidogrel 75 mg tablet 75 mg PO DAILY heart stents #90 07/18/24 10/12/24 Rx tabs rivaroxaban 15 mg tablet (Xarelto) See Rx Instructions .Route 07/28/24 10/12/24 Rx .COMPLEX #90 tabs flash glucose sensor (FreeStyle #1 kit 08/16/24 09/04/24 Rx Kai 2 Sensor kit) spironolactone 50 mg tablet 50 mg PO DAILY #30 tabs 08/22/24 09/04/24 Rx atorvastatin 40 mg tablet 40 mg PO HS 90 days #90 tabs 09/04/24 10/12/24 Rx bumetanide 1 mg tablet See Rx Instructions .Route 09/04/24 10/12/24 Rx .COMPLEX #90 tabs empagliflozin 10 mg tablet 20 mg (2 x 10 mg) PO DAILY 90 days 09/04/24 10/12/24 Rx (Jardiance) #180 tabs ondansetron HCl 8 mg tablet 8 mg PO Q8H PRN nausea and 09/04/24 10/12/24 Rx vomiting 60 days #90 tabs oxycodone 5 mg tablet 2.5 mg (1/2 x 5 mg) PO Q4-6H PRN 09/05/24 10/12/24 Rx pain #90 tabs omeprazole 40 mg capsule,delayed See Rx Instructions .Route 10/02/24 10/12/24 Rx release .COMPLEX #90 caps cetirizine 10 mg tablet See Rx Instructions .Route 10/05/24 10/12/24 Rx .COMPLEX #90 tabs docusate sodium 100 mg capsule See Rx Instructions .Route 10/06/24 10/12/24 Rx .COMPLEX #90 caps ferrous gluconate 324 mg (38 mg See Rx Instructions .Route 10/06/24 10/12/24 Rx iron) tablet .COMPLEX #90 tabs insulin glargine 100 unit/mL (3 11 unit (0.11 mL) SQ BID 60 days 10/06/24 10/12/24 Rx mL) subcutaneous pen (Lantus #13.2 mL Solostar U-100 Insulin) levothyroxine 50 mcg tablet See Rx Instructions .Route 10/06/24 10/12/24 Rx .COMPLEX #90 tabs verapamil 120 mg 24 hr See Rx Instructions .Route 10/06/24 10/12/24 Rx capsule,extended release .COMPLEX #90 caps pen needle, diabetic 31 gauge x #1,200 ea 10/09/24 Rx 3/16 (BD Ultra-Fine Mini Pen Needle) lidocaine 5 % topical patch 1 patch topical DAILY 10/12/24 10/12/24 History New Prescriptions to Start Prescriptions: Allergies Allergy/AdvReac Type Severity Reaction Status Date / Time methylprednisolone Allergy Mild Elevated Verified 09/04/24 13:49 glucose Exam Data for Last 24 hours Vital signs and Labs for Last 24 Hours: Temp Pulse Resp BP Pulse Ox O2 Del Method 97.9 F 89 20 114/70 98 Room Air 10/12/24 15:14 10/12/24 15:30 10/12/24 15:30 10/12/24 15:30 10/12/24 15:30 10/12/24 15:14 Laboratory Results - last 24 hr 10/12/24 15:18: WBC 8.4, RBC 3.45 L, Hgb 8.7 L, Hct 27.6 L, MCV 80.0 L, MCH 25.2 L, MCHC 31.5 L, RDW 16.8, Plt Count 198, MPV 10.6 H, Neut % (Auto) 70.6, Lymph % (Auto) 18.4, Cass % (Auto) 8.9, Eos % (Auto) 1.2, Baso % (Auto) 0.2, Neut # (Auto) 5.9, Lymph # (Auto) 1.5, Cass # (Auto) 0.7, Eos # (Auto) 0.1, Baso # (Auto) 0.0, PT 13.4 H, INR 1.22 H, APTT 26.7, Sodium 132 L, Potassium 5.8 H, Chloride 96 L, Carbon Dioxide 24, Anion Gap 17.8 H, BUN 77 H, Creatinine 1.60 H, Estimated Creat Clear 22, Estimated GFR 30 L, Est GFR ( Amer) 37 L, Glucose 298 H, Calcium 9.2, Total Bilirubin 0.8, AST 48 H, ALT 21, Alkaline Phosphatase 134 H, Total Protein 6.7, Albumin 4.2, Globulin 2.5, Albumin/Globulin Ratio 1.7 I & O for Last 24 hours: Intake & Output 10/09/24 10/10/24 10/11/24 10/12/24 23:59 23:59 23:59 23:59 Weight 56.245 kg Constitutional Constitutional: no acute distress, average body habitus, chronically ill appearing and cooperative *Routine HEENT Exam Head: Present normocephalic Eye: Present EOMI ENT: Present mucous membranes moist Comments: Does not make eye contact, visually impaired *Routine Neck Exam Neck: Present supple; Absent lymphadenopathy *Routine Respiratory Exam Respiratory: Present CTA bilaterally; Absent rhonchi, wheezes or crackles *Routine Cardiovascular Exam Cardiovascular: Present irregularly irregular *Routine Abdominal Exam Abdominal: Present soft and normoactive bowel sounds; Absent tenderness *Routine Rectal Exam Rectal:: deferred *Routine Genitalia Exam Genitalia:: deferred *Routine Extremities Exam Extremities: Absent cyanosis, clubbing or edema Comments: Left leg shorter and externally rotated compared to right. Neurovascularly intact in feet *Routine Skin Exam Skin: Present intact and warm; Absent rash *Routine Neurological Exam Neurological: Present alert, oriented X3 and moving all extremities; Absent altered mental status Assessment and Plan *Assessment and plan (1) Intertrochanteric fracture of left hip: Status: Acute Qualifiers: Encounter type: initial encounter Fracture alignment: displaced Fracture type: closed Qualified Code(s): S72.142A - Displaced intertrochanteric fracture of left femur, initial encounter for closed fracture Category: Medical Code(s): S72.142A - Displaced intertrochanteric fracture of left femur, initial encounter for closed fracture (2) Closed fracture of left hip: Status: Acute Category: Medical Code(s): S72.002A - Fracture of unspecified part of neck of left femur, initial encounter for closed fracture (3) Fall: Status: Acute Category: Medical Code(s): W19.XXXA - Unspecified fall, initial encounter (4) Cirrhosis: Status: Acute Qualifiers: Ascites presence: with ascites Hepatic cirrhosis type: unspecified hepatic cirrhosis Qualified Code(s): K74.60 - Unspecified cirrhosis of liver; R18.8 - Other ascites Category: Medical Code(s): K74.60 - Unspecified cirrhosis of liver (5) Chronic Kidney Disease: Status: Acute Qualifiers: Chronic kidney disease stage: unspecified stage Qualified Code(s): N18.9 - Chronic kidney disease, unspecified Category: Medical Code(s): N18.9 - Chronic kidney disease, unspecified (6) Acute on chronic heart failure with preserved ejection fraction (HFpEF): Status: Acute Category: Medical Code(s): I50.33 - Acute on chronic diastolic (congestive) heart failure (7) Chronic kidney disease (CKD) stage G3b/A2, moderately decreased glomerular filtration rate (GFR) between 30-44 mL/min/1.73 square meter and albuminuria creatinine ratio between 30-299 mg/g: Status: Acute Category: Medical Code(s): N18.32 - Chronic kidney disease, stage 3b (8) Frail elderly: Status: Acute Category: Medical Code(s): R54 - Age-related physical debility (9) Diabetes mellitus type 2 in nonobese: Status: Acute Category: Medical Code(s): E11.9 - Type 2 diabetes mellitus without complications (10) Polypharmacy: Status: Acute Category: Medical Code(s): Z79.899 - 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 transplanted heart: [place] heart Qualified Code(s): I25.118 - Atherosclerotic heart disease of [place] coronary artery with other forms of angina pectoris Category: Medical Code(s): I25.10 - Atherosclerotic heart disease of [place] coronary artery without angina pectoris (12) Atrial fibrillation: Status: Acute Qualifiers: Atrial fibrillation type: unspecified chronic Qualified Code(s): I48.20 - Chronic atrial fibrillation, unspecified Category: Medical Code(s): I48.91 - Unspecified atrial fibrillation (13) Anemia: Status: Acute Qualifiers: Anemia type: unspecified type Qualified Code(s): D64.9 - Anemia, unspecified Category: Medical Code(s): D64.9 - Anemia, unspecified (14) Acute on chronic congestive heart failure: Status: Acute Qualifiers: Heart failure type: unspecified Qualified Code(s): I50.9 - Heart failure, unspecified Category: Medical Code(s): I50.9 - Heart failure, unspecified (15) Pleural effusion: Status: Acute Category: Medical Code(s): J90 - Pleural effusion, not elsewhere classified (16) Abdominal ascites: Status: Acute Qualifiers: Ascites type: other type Qualified Code(s): R18.8 - Other ascites Category: Medical Code(s): R18.8 - Other ascites (17) Cirrhosis of liver: Status: Acute Qualifiers: Hepatic cirrhosis type: unspecified hepatic cirrhosis Ascites presence: unspecified Qualified Code(s): K74.60 - Unspecified cirrhosis of liver Category: Medical Code(s): K74.60 - Unspecified cirrhosis of liver (18) CKD (chronic kidney disease) stage 3, GFR 30-59 ml/min: Status: Deleted Qualifiers: Chronic kidney disease stage 3 subtype: stage 3a (GFR 45-59) Qualified Code(s): N18.31 - Chronic kidney disease, stage 3a Category: Medical Code(s): N18.30 - Chronic kidney disease, stage 3 unspecified (19) Aneurysm of splenic artery: Status: Acute Category: Medical Code(s): I72.8 - Aneurysm of other specified arteries Plan 89-year-old female with PMHx of IDDM, CKD, CAD, Afib, pacemaker in situ, heart failure preserved ejection fraction, recent diagnosis of cirrhosis with ascites and anasarca 10 months ago. Presented to the ER after a fall. Found to have left hip fracture. Discussed case with ER physician, request admission for medical optimization and surgery. Orthopedics consulted. I agreed to admit for further care. Holding anticoagulation. Will need to wait 48 to 72 hours prior to surgery. Requiring inpatient management. Problems addressed as follows: Left intertrochanteric fracture of femur Hip pain Fall - Orthopedics consulted, discussed case with orthopedics, recommend surgery on Wednesday after holding anticoagulation for at least 48 to 72 hours - Patient is elevated risk for intermediate risk procedure (hip surgery). Without surgery, patient will be in constant pain and have no chance of meaningful recovery or ambulation. Family wants to take risk of surgery and give patient a chance for stable hip and ambulation again. Given her comorbidities, would benefit from epidural rather than general sedation due to lower risk. Will obtain preoperative EKG for baseline. -PT and OT consult for after surgery. Patient may necessitate placement. Further management pending their recommendations and surgical fixation of hip HFpEF Patient does not appear to be in exacerbation at this time. Last echo performed in January 2024. Shows normal LV function. Severe RV dilation with severe TR. ECHO showed grade II diastolic dysfunction with preserved EF Appears euvolemic on exam. Breathing ok on RA monitor strict I/Os Cirrhosis of the liver Aneurism of the splenic: Recurring ascites Most recent paracentesis performed 1 month ago on 09/06. Removed approximately 3-1/2 L of fluid. BUN elevated at 77, creatinine 1.6. Slight elevation from baseline with BUN in the 40s and creatinine 1.2-1.4. Bilirubin normal at 0.8, AST 48, ALT 21, alkaline phosphatase 134. Patient has SUMMERS score of F2-bridging fibrosis Child Krueger B on bowel regimen Docusate BID Follows with GI. A-fib Hyperlipidemia CAD -Holding Plavix and Xarelto. - Continue bisoprolol 2.5 mg nightly -Continue Jardiance 20 mg daily, continue isosorbide 15 mg daily -Holding Lipitor 40 mg nightly IDDM: accucheck before meal home lantus 11 units BID last A1c 7.9, 3 months ago. Goal A1c less than 8. Repeat A1c ordered sliding scale insulin with meals and at bedtime DNR/DNI Holding Xarelto and Plavix. Will reevaluate Lovenox in the morning Cardiac diet, n.p.o. Wednesday night pending surgery Wednesday
[2024-10-12 17:08] VITALS: BP 107/72; PULSE 103; RESP 18; TEMP 36.5; O2SAT 99
--- NOTE | 2024-10-12 17:09 | P.CONS_ITS ---
History of Present Illness *Admission Date: 10/12/24 *Reason for visit:: Head fracture *History of present illness: 89-year-old female with significant medical comorbidities suffered a fall resulting in left hip fracture admitted to hospitalist orthopedics consulted regarding definitive treatment options for hip fracture. Of note patient is on Xarelto [facility] Disclaimer: The information contained in this section may have been updated after the patient was seen, as this information can be updated by other users. Medical History Chronic Kidney Disease Acute on chronic heart failure with preserved ejection fraction (HFpEF) Seasonal allergies Hyperlipemia Hypertension Atypical angina Abnormal cardiovascular stress test Nausea vomiting and diarrhea Atypical chest pain Fatigue Gastroenteritis Arthritis History of anemia History of gastroesophageal reflux (GERD) Diabetes mellitus, type 2 History of cataract Arrhythmia History of pacemaker History of left heart catheterization (LHC) Gastritis Acute blood loss anemia (ABLA) Hyperglycemia Angina at rest Hyperglycemia without ketosis PAF (paroxysmal atrial fibrillation) Acute kidney injury DKA (diabetic ketoacidosis) Dyspnea Lactose intolerance Strep throat Pancytopenia 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 antigen is unknown, or is not H7 Hypokalemia Hypotension Digitalis toxicity Edema SOB (shortness of breath) Leukocytosis Colitis Viral gastroenteritis Lactic acidosis Hyperglycemia due to diabetes mellitus Palpitations Primary osteoarthritis of right shoulder CHF (congestive heart failure) Cardiomyopathy Atrial fibrillation with RVR Right shoulder pain Peripheral arterial disease Atrial fibrillation Hyperkalemia Renal insufficiency Urinary tract infection Anemia Acute renal insufficiency Cardiogenic shock Diabetes Pre-syncope Contusion of sternum Fatigue SOB (shortness of breath) on exertion Leg pain, bilateral HLD (hyperlipidemia) Angina pectoris Cardiac pacemaker in situ will check labs SSS (sick sinus syndrome) HTN (hypertension) Pulmonary HTN Chest wall pain following surgery Report soreness r/t post op pacemaker Coronary artery disease Surgical History History of esophagogastroduodenoscopy (EGD) Hx of tonsillectomy History of colonoscopy History of hysterectomy History of appendectomy History of cholecystectomy Family History Other No significant family history Social History Smoking Status: Never smoker second hand exposure: No alcohol intake: never substance use type: denies use current occupational status: disabled Travel in the last 8 weeks: None household members: family housing: house caffeine: No Have you lived/traveled outside [place] in past 30 days?: No Contact w/someone who lives/traveled outside US past 30 days?: No Exposure to someone with infectious disease in past 14 days?: No Do you have a fever (greater than 100.4 F or 38 C)?: No Have you tested positive for COVID-19: No Exposed to someone with COVID-19 in past 14 days?: No Do you have a sore throat?: No Do you have a cough?: No Do you have any weakness?: No Do you have any diarrhea?: No Are you experiencing any unusual bleeding?: No Do you have any muscle aches/pain?: No Do you have any abdominal pain?: No Are you experiencing loss of taste or smell?: No Meds Home Medications and Allergies Home Medications ?Medication ?Instructions ?Recorded ?Confirmed ?Type multivitamin-ferrous 1 each PO DAILY Supplement 08/18/21 09/04/24 History fumarate-folic acid 18 mg-400 mcg tablet nitroglycerin 0.4 mg sublingual 0.4 mg sublingual Q5M PRN chest 12/20/23 09/04/24 Rx tablet pain #30 tabs fluticasone propionate 50 1 spray intranasal DAILY 01/24/24 09/04/24 History mcg/actuation nasal spray,suspension isosorbide mononitrate 30 mg 15 mg PO DAILY 01/25/24 09/04/24 History tablet,extended release 24 hr pen needle, diabetic 31 gauge x 03/17/24 09/04/24 History 5/16 (BD Ultra-Fine Short Pen Needle) mirabegron 25 mg tablet,extended See Rx Instructions .Route 05/02/24 09/04/24 Rx release 24 hr (Myrbetriq) .COMPLEX #60 tabs mecobalamin (vitamin B12) 5,000 5,000 mcg PO DAILY vitamin B12 05/18/24 09/04/24 Rx mcg chewable tablet deficiency #90 tabs bisoprolol fumarate 5 mg tablet 2.5 mg (1/2 x 5 mg) PO HS #30 tabs 06/29/24 09/04/24 Rx sertraline 100 mg tablet See Rx Instructions .Route 07/13/24 09/04/24 Rx .COMPLEX #90 tabs clopidogrel 75 mg tablet 75 mg PO DAILY heart stents #90 07/18/24 09/04/24 Rx tabs rivaroxaban 15 mg tablet (Xarelto) See Rx Instructions .Route 07/28/24 09/04/24 Rx .COMPLEX #90 tabs flash glucose sensor (FreeStyle #1 kit 08/16/24 09/04/24 Rx Kai 2 Sensor kit) spironolactone 50 mg tablet 50 mg PO DAILY #30 tabs 08/22/24 09/04/24 Rx atorvastatin 40 mg tablet 40 mg PO HS 90 days #90 tabs 09/04/24 09/04/24 Rx bumetanide 1 mg tablet See Rx Instructions .Route 09/04/24 09/04/24 Rx .COMPLEX #90 tabs empagliflozin 10 mg tablet 20 mg (2 x 10 mg) PO DAILY 90 days 09/04/24 09/04/24 Rx (Jardiance) #180 tabs ondansetron HCl 8 mg tablet 8 mg PO Q8H PRN nausea and 09/04/24 09/04/24 Rx vomiting 60 days #90 tabs oxycodone 5 mg tablet 2.5 mg (1/2 x 5 mg) PO Q4-6H PRN 09/05/24 09/05/24 Rx pain #90 tabs omeprazole 40 mg capsule,delayed See Rx Instructions .Route 10/02/24 Rx release .COMPLEX #90 caps cetirizine 10 mg tablet See Rx Instructions .Route 10/05/24 Rx .COMPLEX #90 tabs docusate sodium 100 mg capsule See Rx Instructions .Route 10/06/24 Rx .COMPLEX #90 caps ferrous gluconate 324 mg (38 mg See Rx Instructions .Route 10/06/24 Rx iron) tablet .COMPLEX #90 tabs insulin glargine 100 unit/mL (3 11 unit (0.11 mL) SQ BID 60 days 10/06/24 Rx mL) subcutaneous pen (Lantus #13.2 mL Solostar U-100 Insulin) levothyroxine 50 mcg tablet See Rx Instructions .Route 10/06/24 Rx .COMPLEX #90 tabs verapamil 120 mg 24 hr See Rx Instructions .Route 10/06/24 Rx capsule,extended release .COMPLEX #90 caps pen needle, diabetic 31 gauge x #1,200 ea 10/09/24 Rx 3/16 (BD Ultra-Fine Mini Pen Needle) New Prescriptions to Start Prescriptions: Allergies Allergy/AdvReac Type Severity Reaction Status Date / Time methylprednisolone Allergy Mild Elevated Verified 09/04/24 13:49 glucose Ortho Exam (Inpt) Vital signs and Labs for Last 24 Hours: Temp Pulse Resp BP Pulse Ox O2 Del Method 97.7 F 103 H 18 107/72 L 98 Room Air 10/12/24 17:08 10/12/24 17:08 10/12/24 17:08 10/12/24 17:08 10/12/24 15:30 10/12/24 17:08 Laboratory Results - last 24 hr 10/12/24 15:18: WBC 8.4, RBC 3.45 L, Hgb 8.7 L, Hct 27.6 L, MCV 80.0 L, MCH 25.2 L, MCHC 31.5 L, RDW 16.8, Plt Count 198, MPV 10.6 H, Neut % (Auto) 70.6, Lymph % (Auto) 18.4, [place] % (Auto) 8.9, Eos % (Auto) 1.2, Baso % (Auto) 0.2, Neut # (Auto) 5.9, Lymph # (Auto) 1.5, [place] # (Auto) 0.7, Eos # (Auto) 0.1, Baso # (Auto) 0.0, PT 13.4 H, INR 1.22 H, APTT 26.7, Sodium 132 L, Potassium 5.8 H, C hloride 96 L, Carbon Dioxide 24, Anion Gap 17.8 H, BUN 77 H, Creatinine 1.60 H, Estimated Creat Clear 22, Estimated GFR 30 L, Est GFR ( Amer) 37 L, G lucose 298 H, Calcium 9.2, Total Bilirubin 0.8, AST 48 H, ALT 21, Alkaline Phosphatase 134 H, Total Protein 6.7, Albumin 4.2, Globulin 2.5, Albumin/Globulin Ratio 1.7 I & O for Labs for Last 24 Hours: Intake & Output 10/09/24 10/10/24 10/11/24 10/12/24 23:59 23:59 23:59 23:59 Weight 124 lb Additional findings:: Left hip: Slightly shortened and externally rotated. Pain with any attempt for active range of motion. Left hip x-rays reveal intertrochanteric hip fracture on the left side Results Labs 10/12/24 15:18 10/12/24 15:18 Labs: Abnormal lab results 10/12/24 Range/Units 15:18 RBC 3.45 L (4.20-5.40) M/mm3 Hgb 8.7 L (12.2-16.2) g/dL Hct 27.6 L (37.0-47.0) % MCV 80.0 L (81-99) fl MCH 25.2 L (27.0-31.2) pg MCHC 31.5 L (31.8-35.4) g/dL MPV 10.6 H (7.4-10.4) fl PT 13.4 H (10.1-12.5) seconds INR 1.22 H (0.9-1.1) Sodium 132 L (136-145) mmol/L Potassium 5.8 H (3.5-5.1) mmoL/L Chloride 96 L (98-107) mmol/L Anion Gap 17.8 H (5-15) mEq/L BUN 77 H (7-17) mg/dl Creatinine 1.60 H (0.52-1.04) mg/dl Estimated GFR 30 L (>60) ml/min Est GFR ( Amer) 37 L (>60) ML/MIN Glucose 298 H (74-100) mg/dl AST 48 H (14-36) U/L Alkaline Phosphatase 134 H (38-126) U/L H & H 10/12/24 Range/Units 15:18 Hgb 8.7 L (12.2-16.2) g/dL Hct 27.6 L (37.0-47.0) % Coagulation 10/12/24 Range/Units 15:18 INR 1.22 H (0.9-1.1) All other labs normal. Assessment and Plan *Assessment and plan (1) Intertrochanteric fracture of left hip: Status: Acute Qualifiers: Encounter type: initial encounter Fracture type: closed Fracture alignment: displaced Qualified Code(s): S72.142A - Displaced intertrochanteric fracture of left femur, initial encounter for closed fracture Category: Medical Code(s): S72.142A - Displaced intertrochanteric fracture of left femur, initial encounter for closed fracture Plan Had a discussion with the patient and her daughter. She has a intertrochanteric hip fracture and is on anticoagulants with Xarelto. We will admit her to the hospital team. Plan on surgical intervention on Wednesday which will allow her to be off Xarelto long enough which would allow for spinal anesthesia if indicated. Given patient's significant medical comorbidities we will allow the Xarelto to be out of the system prior to proceeding with surgery to decrease the chance of transfusion need and open the possibility of spinal anesthesia. PROPOSED SURGERY: Cephalomedullary nailing left proximal femur the risks and benefits of the proposed surgery were discussed in depth with the patient. Potential complications including inherent risk of anesthesia, infection, neurovascular damage, DVT, and rare but real potential loss of limb or life were all reviewed. Patient voices understanding and seems to understand to my satisfaction and wishes to proceed with surgery. I gave them adequate time to ask any questions they have pertaining to this surgery and answered all of them to the best of my ability. I gave them no guarantees in regards to outcomes of this surgery.
[2024-10-12 17:16] VITALS: BP 111/62; PULSE 94; RESP 16; TEMP 36.4; O2SAT 98; BMI 24.7
[2024-10-12] MEDS: OXYCODONE 5MG IMMEDIATE RELEASE TABLET 5 MG PO (19:36)
[2024-10-12] MEDS: humaLOG 100 UNITS/ML 10ML VIAL (SSI) SUBCUT (20:33)
[2024-10-12] MEDS: BISOPROLOL 5MG TABLET 2.5 MG PO (20:33)
[2024-10-12] MEDS: INSULIN GLARGINE 100 UNITS/ML 3ML FLEXPEN 11 UNIT SUBCUT (20:34)
[2024-10-12] MEDS: HYDROMORPHONE 2MG/ML SYRINGE 0.5 MG IV ×2 (20:43→23:50)
[2024-10-12 23:25] VITALS: BP 133/87; PULSE 99; RESP 16; TEMP 36.8; O2SAT 91
[2024-10-13 04:00] VITALS: BP 106/59; PULSE 111; RESP 16; TEMP 36.5; O2SAT 97; BMI 25.3
[2024-10-13] MEDS: HYDROMORPHONE 2MG/ML SYRINGE 0.5 MG IV ×5 (04:26→15:33)
--- NOTE | 2024-10-13 05:54 | PC.NURSE ---
Alert and oriented. Daughter at the bedside throughout night, so no bed alarm on due to patient being bedbound and able to call out. Patient complained of pain throughout night, treated per dec. PO medication did not relieve any pain for patient. Left hip tender, patient does not move much in bed. Room air. Purewick in place. Call light in reach.
[2024-10-13] MEDS: LEVOTHYROXINE 50MCG (0.05MG) TAB 50 MCG PO (06:11)
[2024-10-13] MEDS: humaLOG 100 UNITS/ML 10ML VIAL (SSI) SUBCUT ×4 (06:17→21:27)
[2024-10-13 06:33] LABS: Basophils % 0.3 % (0.1-2.0); Eosinophils # 0.1 K/mm3 (0.0-0.4); Eosinophils % 1.1 % (0.1-12.0); Hematocrit 28.3 % (37.0-47.0); Hemoglobin 8.9 g/dL (12.2-16.2); Lymphocytes # 1.3 K/mm3 (0.7-4.5); Mean Corpuscular HGB Conc 31.4 g/dL (31.8-35.4); Mean Corpuscular Hemoglobin 25.6 pg (27.0-31.2); Mean Corpuscular Volume 81.3 fl (81-99); Mean Platelet Volume 10.2 fl (7.4-10.4); Monocytes # 1.1 K/mm3 (0.1-1.0); Monocytes % 10.7 % (1.7-9.3); Neutrophils # 7.5 K/mm3 (1.8-7.8); Neutrophils % 74.5 % (37.0-80.0); Platelet Count 189 K/mm3 (142-424); Red Blood Count 3.48 M/mm3 (4.20-5.40); Red Cell Distribution Width 16.8 % (11.5-17.5)
[2024-10-13 06:49] LABS: Alanine Aminotransferase 21 U/L (12-78); Albumin Level 4.1 g/dl (3.5-5.0); Albumin/Globulin Ratio 1.4 (1.1-1.8); Alkaline Phosphatase 118 U/L (38-126); Anion Gap 13.7 mEq/L (5-15); Aspartate Amino Transferase 37 U/L (14-36); Bilirubin,Total 0.7 mg/dl (0.2-1.3); Blood Urea Nitrogen 72 mg/dl (7-17); Calcium 9.5 mg/dl (8.4-10.2); Carbon Dioxide 27 mmol/L (22.0-30.0); Chloride 98 mmol/L (98-107); Creatinine Clearance Estimated 20 mL/min (50-200); Estimated Glomerular Filt Rate 27 ml/min (>60); GFR (African American) 32 ML/MIN (>60); Globulin 2.9 g/dL (1.3-3.2); Glucose 119 mg/dl (74-100); Magnesium 2.2 mg/dl (1.6-2.3); Potassium 4.7 mmoL/L (3.5-5.1); Sodium 134 mmol/L (136-145)
[2024-10-13 07:49] LABS: 25-OH Vitamin D, Total 50.5 ng/mL (30-100)
[2024-10-13 08:00] VITALS: BP 109/46; PULSE 112; RESP 20; TEMP 36.4; O2SAT 94
[2024-10-13 08:52] LABS: Hemoglobin A1C 9.7 % (4.0-6.0)
--- NOTE | 2024-10-13 09:00 | HMH.PHAINT1 ---
Pharmacy Intervention Comments: VERIFIED MEDICATIONS WITH OUTPATIENT PHARMACY AND CONFIRMED WITH PATIENT.
[2024-10-13] MEDS: ERGOCALCIFEROL 50,000 UNITS (1.25MG) CAPSULE 50000 UNIT PO (09:56)
[2024-10-13] MEDS: BUMETANIDE 1 MG TABLET PO (09:56)
[2024-10-13] MEDS: EMPAGLIFLOZIN 10MG TABLET 20 MG PO (09:56)
[2024-10-13] MEDS: ISOSORBIDE MONO 30MG TAB.ER.24H 15 MG PO (09:57)
[2024-10-13] MEDS: ONDANSETRON 4MG/2ML VIAL 4 MG IV ×2 (09:57→11:27)
[2024-10-13] MEDS: SENNOSIDES 8.6MG/DOCUSATE 50MG TABLET 1 TAB PO (09:57)
[2024-10-13] MEDS: VERAPAMIL SR 120MG TABLET 120 MG PO (09:57)
[2024-10-13] MEDS: SERTRALINE 100MG TABLET 100 MG PO (09:57)
[2024-10-13] MEDS: INSULIN GLARGINE 100 UNITS/ML 3ML FLEXPEN 11 UNIT SUBCUT ×2 (09:58→21:26)
[2024-10-13 11:15] LABS: POC Glucose,Bedside 205 (70-110)
[2024-10-13 11:33] VITALS: BMI 25.1
--- NOTE | 2024-10-13 11:41 | P.PN_ITS ---
Subjective *Date: 10/13/24 *Time: 18:04 Interval history: Patient feeling okay this morning other than nausea. Resumed her Zofran regimen. Takes it 3 times a day at home scheduled. No bowel movement since admission. Requiring pain meds regularly due to hip pain. Afebrile. On room air. Medical Exam Vital signs and Labs for Last 24 Hours: Vital Signs Temp Pulse Pulse Resp BP BP Pulse Ox 10/13/24 08:00 97.6 F 112 H 20 109/46 L 94 L 10/13/24 06:50 10/13/24 04:37 10/13/24 04:00 97.7 F 111 H 16 106/59 L 97 10/13/24 03:00 10/13/24 00:49 10/12/24 23:25 98.2 F 99 H 16 133/87 91 L 10/12/24 23:00 10/12/24 21:00 10/12/24 20:00 10/12/24 18:54 10/12/24 17:16 97.6 F 94 H 16 111/62 98 10/12/24 17:08 97.7 F 103 H 18 107/72 L 10/12/24 17:00 10/12/24 16:43 10/12/24 15:30 89 20 114/70 98 10/12/24 15:14 97.9 F 110 H 20 105/67 L 93 L O2 Del Method 10/13/24 08:00 Room Air 10/13/24 06:50 Room Air 10/13/24 04:37 Room Air 10/13/24 04:00 Room Air 10/13/24 03:00 Room Air 10/13/24 00:49 Room Air 10/12/24 23:25 Room Air 10/12/24 23:00 Room Air 10/12/24 21:00 Room Air 10/12/24 20:00 Room Air 10/12/24 18:54 Room Air 10/12/24 17:16 Room Air 10/12/24 17:08 Room Air 10/12/24 17:00 Room Air 10/12/24 16:43 Room Air 10/12/24 15:30 10/12/24 15:14 Room Air Intake and Output 10/12/24 10/13/24 10/13/24 23:59 07:59 15:59 Intake Total 180 / 420 240 / 420 Output Total 0 / 0 600 / 1025 425 / 1025 Balance 0 / 180 -420 / -605 -185 / -605 Intake: Intake, Oral Amount 180 / 420 240 / 420 Output: Output, Urine Amount 0 / 0 600 / 1025 425 / 1025 Other: Number of Unmeasured Voids 0 0 Weight 57.153 kg 58.604 kg 58 kg Patient Weight 10/13/24 23:59 Weight 58 kg Laboratory Results - last 24 hr 10/12/24 15:18: WBC 8.4, RBC 3.45 L, Hgb 8.7 L, Hct 27.6 L, MCV 80.0 L, MCH 25.2 L, MCHC 31.5 L, RDW 16.8, Plt Count 198, MPV 10.6 H, Neut % (Auto) 70.6, Lymph % (Auto) 18.4, [place] % (Auto) 8.9, Eos % (Auto) 1.2, Baso % (Auto) 0.2, Neut # (Auto) 5.9, Lymph # (Auto) 1.5, [place] # (Auto) 0.7, Eos # (Auto) 0.1, Baso # (Auto) 0.0, PT 13.4 H, INR 1.22 H, APTT 26.7, Sodium 132 L, Potassium 5.8 H, Chloride 96 L, Carbon Dioxide 24, Anion Gap 17.8 H, BUN 77 H, Creatinine 1.60 H, Estimated Creat Clear 22, Estimated GFR 30 L, Est GFR ( Amer) 37 L, Glucose 298 H, Calcium 9.2, Total Bilirubin 0.8, AST 48 H, ALT 21, Alkaline Phosphatase 134 H, Total Protein 6.7, Albumin 4.2, Globulin 2.5, Albumin/Globulin Ratio 1.7 10/13/24 06:00: WBC 10.0, RBC 3.48 L, Hgb 8.9 L, Hct 28.3 L, MCV 81.3, MCH 25.6 L, MCHC 31.4 L, RDW 16.8, Plt Count 189, MPV 10.2, Neut % (Auto) 74.5, Lymph % (Auto) 13.0, [place] % (Auto) 10.7 H, Eos % (Auto) 1.1, Baso % (Auto) 0.3, Neut # (Auto) 7.5, Lymph # (Auto) 1.3, [place] # (Auto) 1.1 H, Eos # (Auto) 0.1, Baso # (Auto) 0.0, Sodium 134 L, Potassium 4.7, Chloride 98, Carbon Dioxide 27, Anion Gap 13.7, BUN 72 H, Creatinine 1.80 H, Estimated Creat Clear 20, Estimated GFR 27 L, Est GFR ( Amer) 32 L, Glucose 119 H D, Hemoglobin A1c 9.7 H, Calcium 9.5, Magnesium 2.2, Total Bilirubin 0.7, AST 37 H, ALT 21, Alkaline Phosphatase 118, Total Protein 7.0, Albumin 4.1, Globulin 2.9, Albumin/Globulin Ratio 1.4, 25-OH Vitamin D Total 50.5 10/13/24 11:05: POC Glucose 205 H I & O for Labs for Last 24 Hours: Intake & Output 10/10/24 10/11/24 10/12/24 10/13/24 23:59 23:59 23:59 23:59 Intake Total 420 / 420 Output Total 0 / 0 1025 / 1025 Balance 0 / 180 -605 / -605 Weight 57.153 kg 58 kg Constitutional: Present no acute distress, thin, chronically ill appearing and cooperative Head: Present atraumatic and normocephalic ENT: Present normal exam Neck: Present normal inspection Respiratory: Present normal respiratory effort; Absent rhonchi, wheezes or crackles Cardiac: Present Reg Rate and Rhythm GI: Present soft and normal bowel sounds; Absent distention or tenderness Extremities: Absent normal inspection, full ROM or edema Comment:: Left leg shorter and externally rotated compared to right Skin: Present intact; Absent erythema Neuro: Present Grossly Intact, alert, awake and moves all extremities Assessment and Plan *Assessment and plan (1) Intertrochanteric fracture of left hip: Status: Acute Qualifiers: Encounter type: initial encounter Fracture alignment: displaced Fracture type: closed Qualified Code(s): S72.142A - Displaced intertrochanteric fracture of left femur, initial encounter for closed fracture Category: Medical Code(s): S72.142A - Displaced intertrochanteric fracture of left femur, initial encounter for closed fracture (2) Closed fracture of left hip: Status: Acute Category: Medical Code(s): S72.002A - Fracture of unspecified part of neck of left femur, initial encounter for closed fracture (3) Fall: Status: Acute Category: Medical Code(s): W19.XXXA - Unspecified fall, initial encounter (4) Cirrhosis: Status: Acute Qualifiers: Ascites presence: with ascites Hepatic cirrhosis type: unspecified hepatic cirrhosis Qualified Code(s): K74.60 - Unspecified cirrhosis of liver; R18.8 - Other ascites Category: Medical Code(s): K74.60 - Unspecified cirrhosis of liver (5) Chronic Kidney Disease: Status: Acute Qualifiers: Chronic kidney disease stage: unspecified stage Qualified Code(s): N18.9 - Chronic kidney disease, unspecified Category: Medical Code(s): N18.9 - Chronic kidney disease, unspecified (6) Acute on chronic heart failure with preserved ejection fraction (HFpEF): Status: Acute Category: Medical Code(s): I50.33 - Acute on chronic diastolic (congestive) heart failure (7) Chronic kidney disease (CKD) stage G3b/A2, moderately decreased glomerular filtration rate (GFR) between 30-44 mL/min/1.73 square meter and albuminuria creatinine ratio between 30-299 mg/g: Status: Acute Category: Medical Code(s): N18.32 - Chronic kidney disease, stage 3b (8) Frail elderly: Status: Acute Category: Medical Code(s): R54 - Age-related physical debility (9) Diabetes mellitus type 2 in nonobese: Status: Acute Category: Medical Code(s): E11.9 - Type 2 diabetes mellitus without complications (10) Polypharmacy: Status: Acute Category: Medical Code(s): Z79.899 - Other director long term care (current) drug therapy (11) Coronary artery disease: Status: Acute Qualifiers: Associated angina: with other forms of angina Coronary Disease- Associated Artery/Lesion type: [place] artery [place] vs. transplanted heart: [place] heart Qualified Code(s): I25.118 - Atherosclerotic heart disease of [place] coronary artery with other forms of angina pectoris Category: Medical Code(s): I25.10 - Atherosclerotic heart disease of [place] coronary artery without angina pectoris (12) Atrial fibrillation: Status: Acute Qualifiers: Atrial fibrillation type: unspecified chronic Qualified Code(s): I48.20 - Chronic atrial fibrillation, unspecified Category: Medical Code(s): I48.91 - Unspecified atrial fibrillation (13) Anemia: Status: Acute Qualifiers: Anemia type: unspecified type Qualified Code(s): D64.9 - Anemia, unspecified Category: Medical Code(s): D64.9 - Anemia, unspecified (14) Acute on chronic congestive heart failure: Status: Acute Qualifiers: Heart failure type: unspecified Qualified Code(s): I50.9 - Heart failure, unspecified Category: Medical Code(s): I50.9 - Heart failure, unspecified (15) Pleural effusion: Status: Acute Category: Medical Code(s): J90 - Pleural effusion, not elsewhere classified (16) Abdominal ascites: Status: Acute Qualifiers: Ascites type: other type Qualified Code(s): R18.8 - Other ascites Category: Medical Code(s): R18.8 - Other ascites (17) Cirrhosis of liver: Status: Acute Qualifiers: Ascites presence: unspecified Hepatic cirrhosis type: unspecified hepatic cirrhosis Qualified Code(s): K74.60 - Unspecified cirrhosis of liver Category: Medical Code(s): K74.60 - Unspecified cirrhosis of liver (18) CKD (chronic kidney disease) stage 3, GFR 30-59 ml/min: Status: Deleted Qualifiers: Chronic kidney disease stage 3 subtype: stage 3a (GFR 45-59) Qualified Code(s): N18.31 - Chronic kidney disease, stage 3a Category: Medical Code(s): N18.30 - Chronic kidney disease, stage 3 unspecified (19) Aneurysm of splenic artery: Status: Acute Category: Medical Code(s): I72.8 - Aneurysm of other specified arteries Plan 89-year-old female with PMHx of IDDM, CKD, CAD, Afib, pacemaker in situ, heart failure preserved ejection fraction, recent diagnosis of cirrhosis with ascites and anasarca 10 months ago. Presented to the ER after a fall. Found to have left hip fracture. Discussed case with ER physician, request admission for medical optimization and surgery. Orthopedics consulted. I agreed to admit for further care. Holding anticoagulation. Will need to wait 48 to 72 hours prior to surgery. Requiring inpatient management. Stable today. Continues to await surgery on Wednesday. Having some nausea. Problems addressed as follows: Left intertrochanteric fracture of femur Hip pain Fall - Orthopedics consulted, discussed case with orthopedics, recommend surgery on Wednesday after holding anticoagulation for at least 72 hours - Patient is elevated risk for intermediate risk procedure (hip surgery). Without surgery, patient will be in constant pain and have no chance of meaningful recovery or ambulation. Family wants to take risk of surgery and give patient a chance for stable hip and ambulation again. Given her comorbidities, would benefit from epidural rather than general sedation due to lower risk. Will obtain preoperative EKG for baseline. -PT and OT consult for after surgery. Patient will likely necessitate placement. Further management pending their recommendations and surgical fixation of hip -Transition to oxycodone 7.5 milligrams every 4 hours. Encouraged to hold on Dilaudid. Having some confusion, concern for toxicity from opiates. High risk for decompensation and complications along with toxicity. Monitoring closely. -Zofran 8 mg every 6 hours as needed for nausea secondary to pain and pain meds along with chronic nausea -LR to 125 cc an hour for 1 L. Poor p.o. intake due to nausea HFpEF A-fib Hyperlipidemia CAD -Holding Plavix and Xarelto. - Patient does not appear to be in exacerbation at this time. Last echo performed in January 2024. Shows normal LV function. Severe RV dilation with severe TR. ECHO showed grade II diastolic dysfunction with preserved EF Continue bisoprolol 2.5 mg nightly, Bumex 1 mg daily, Jardiance 20 mg daily, isosorbide mononitrate 15 mg daily Cirrhosis of the liver Aneurism of the splenic: Recurring ascites Most recent paracentesis performed 1 month ago on 09/06. Removed approximately 3-1/2 L of fluid. BUN 72, creatinine 1.8. Slight elevation from baseline with BUN in the 40s and creatinine 1.2-1.4. Potassium 4.7, magnesium 2.2. Repeat CBC, CMP, magnesium ordered for the morning. Patient has SUMMERS score of F2-bridging fibrosis Child Krueger B on bowel regimen Docusate BID Follows with GI. IDDM: accucheck before meal Glucose 119 on morning labs home lantus 11 units BID last A1c 7.9, 3 months ago. Goal A1c less than 8. Repeat A1c 9.7 this morning. sliding scale insulin with meals and at bedtime DNR/DNI Holding Xarelto and Plavix. Will reevaluate Lovenox in the morning Cardiac diet, n.p.o. Wednesday night pending surgery Wednesday
[2024-10-13 16:00] VITALS: BP 88/58; PULSE 102; RESP 16; TEMP 36.6; O2SAT 93
[2024-10-13 16:49] LABS: POC Glucose,Bedside 235 (70-110)
[2024-10-13] MEDS: LACTATED RINGERS 1000ML 1,000 ML 125 ML IV (17:41)
[2024-10-13] MEDS: OXYCODONE 5MG IMMEDIATE RELEASE TABLET 7.5 MG PO (17:42)
[2024-10-13] MEDS: ONDANSETRON 4MG/2ML VIAL 8 MG IV (17:43)
[2024-10-13 18:12] LABS: Ammonia < 9 umol/L (9-30)
[2024-10-13 20:00] VITALS: BP 85/51; PULSE 82; RESP 16; TEMP 36.5; O2SAT 96
--- NOTE | 2024-10-13 20:45 | PC.NURSE ---
Raiza AHUMADA notified of vitals
[2024-10-13] MEDS: LACTULOSE 20GM/30ML UDC 10 GM PO (21:20)
[2024-10-13] MEDS: ACETAMINOPHEN 1,000MG/100ML VIAL 1000 MG IV (21:22)
[2024-10-13] MEDS: PANTOPRAZOLE 40MG TABLET 40 MG PO (21:22)
[2024-10-13] MEDS: PROCHLORPERAZINE 10MG/2ML VIAL 5 MG IV (21:34)
[2024-10-14] VITALS: BP 82/48; PULSE 81; RESP 16; TEMP 36.7; O2SAT 96
--- NOTE | 2024-10-14 00:15 | PC.NURSE ---
Zion Hernandez APRN notified regarding Pt BP remaining low (82/48). Daughter at bedside continues to use pt call light to inform staff that pt is in pain. Pt admits to pain upon waking up to allow this RN to assess her pain. This nurse did attempt to educate daughter and pt that we are using caution in giving excessive pain meds to pt in concerns for pt decreasing BP. Mary agreed to come to bedside and talk to pt and daughter.
[2024-10-14] MEDS: METHOCARBAMOL 500MG TABLET 500 MG PO (00:33)
[2024-10-14] MEDS: LACTATED RINGERS 1000ML 1,000 ML 125 ML IV (03:54)
[2024-10-14 04:00] VITALS: BP 98/53; PULSE 74; RESP 16; TEMP 36.6; O2SAT 98; BMI 26.4
[2024-10-14] MEDS: ACETAMINOPHEN 1,000MG/100ML VIAL 1000 MG IV (04:37)
[2024-10-14 04:45] LABS: POC Glucose,Bedside 276 (70-110)
[2024-10-14] MEDS: LIDOCAINE 5% TRANSDERMAL PATCH 1 EACH TP (05:08)
[2024-10-14] MEDS: humaLOG 100 UNITS/ML 10ML VIAL (SSI) SUBCUT ×4 (05:31→21:36)
[2024-10-14 05:35] LABS: POC Glucose,Bedside 281 (70-110)
[2024-10-14] MEDS: LEVOTHYROXINE 50MCG (0.05MG) TAB 50 MCG PO (06:46)
[2024-10-14 07:05] LABS: Basophils % 0.1 % (0.1-2.0); Hematocrit 24.6 % (37.0-47.0); Hemoglobin 7.7 g/dL (12.2-16.2); Lymphocytes # 1.2 K/mm3 (0.7-4.5); Lymphocytes % 11.2 % (10-50); Mean Corpuscular HGB Conc 31.3 g/dL (31.8-35.4); Mean Corpuscular Hemoglobin 25.7 pg (27.0-31.2); Mean Platelet Volume 9.9 fl (7.4-10.4); Monocytes # 0.9 K/mm3 (0.1-1.0); Monocytes % 9.1 % (1.7-9.3); Neutrophils # 8.1 K/mm3 (1.8-7.8); Platelet Count 156 K/mm3 (142-424); Red Cell Distribution Width 17.1 % (11.5-17.5); White Blood Count 10.3 K/mm3 (4.8-10.8)
[2024-10-14 07:27] LABS: Albumin Level 3.7 g/dl (3.5-5.0); Chloride 94 mmol/L (98-107)
[2024-10-14 07:28] LABS: Sodium 127 mmol/L (136-145)
[2024-10-14 07:30] LABS: Carbon Dioxide 21 mmol/L (22.0-30.0); Creatinine Clearance Estimated 17 mL/min (50-200); Estimated Glomerular Filt Rate 20 ml/min (>60); GFR (African American) 24 ML/MIN (>60)
[2024-10-14 07:31] LABS: Alanine Aminotransferase 31 U/L (12-78); Albumin/Globulin Ratio 1.4 (1.1-1.8); Alkaline Phosphatase 117 U/L (38-126); Aspartate Amino Transferase 51 U/L (14-36); Bilirubin,Total 0.9 mg/dl (0.2-1.3); Calcium 9.5 mg/dl (8.4-10.2); Globulin 2.6 g/dL (1.3-3.2); Glucose 176 mg/dl (74-100); Total Protein,Serum 6.3 g/dl (6.3-8.2)
[2024-10-14 07:45] LABS: Blood Urea Nitrogen 87 mg/dl (7-17)
--- NOTE | 2024-10-14 07:50 | ECG_ITS ---
APPROVED REPORT Exam: Resting ECG HR:77 bpm ECG Measurements Heart Rate 77 AXES QRSd 94 QRS 63 QT 366 T -54 QTc 398 Conclusion ATRIAL FIBRILLATION MINIMAL ST DEPRESSION [0.025+ mV ST DEPRESSION] ABNORMAL QRS-T ANGLE [QRS-T AXIS DIFFERENCE > 60] ABNORMAL ECG UNCONFIRMED REPORT Electronically signed by : Alexy Rivera MD 10/16/2024 13:39:19
[2024-10-14 08:00] VITALS: BP 87/54; PULSE 88; RESP 16; TEMP 36.4; O2SAT 91
[2024-10-14] MEDS: SERTRALINE 100MG TABLET 100 MG PO (08:58)
[2024-10-14] MEDS: ENOXAPARIN 30MG/0.3ML SYRINGE 30 MG SUBCUT (08:59)
[2024-10-14] MEDS: LACTULOSE 20GM/30ML UDC 10 GM PO ×4 (08:59→21:37)
[2024-10-14] MEDS: SENNOSIDES 8.6MG/DOCUSATE 50MG TABLET 1 TAB PO (08:59)
[2024-10-14] MEDS: INSULIN GLARGINE 100 UNITS/ML 3ML FLEXPEN 11 UNIT SUBCUT ×2 (09:04→21:37)
[2024-10-14] MEDS: OXYCODONE 5MG IMMEDIATE RELEASE TABLET 5 MG PO ×4 (10:29→22:12)
[2024-10-14 11:14] LABS: POC Glucose,Bedside 231 (70-110)
[2024-10-14 11:56] LABS: Potassium 6.1 mmoL/L (3.5-5.1)
[2024-10-14] MEDS: ONDANSETRON 4MG/2ML VIAL 8 MG IV (12:26)
--- NOTE | 2024-10-14 15:38 | XR_ITS ---
PROCEDURE INFORMATION: Exam: XR Chest Exam date and time: 10/14/2024 3:53 PM Age: 89 years old Clinical indication: Other: Eval for effusion TECHNIQUE: Imaging protocol: Radiologic exam of the chest. Views: 1 view. COMPARISON: CR XR CHEST PORTABLE 08/27/2024 2:18 PM FINDINGS: Tubes, catheters and devices: Left chest pacemaker device is demonstrated. Lungs: Linear density identified within bilateral lungs. The lungs appear otherwise clear. Pleural spaces: No pleural effusion. No pneumothorax. Heart/Mediastinum: Coronary arterial stent identified. Coronary arterial calcifications are demonstrated. The cardiac silhouette appears borderline prominent. Vasculature: Mild atherosclerotic calcification demonstrated within the aorta. Bones/joints: Diffusely decreased bone density. Generalized bony degenerative changes. IMPRESSION: 1. Linear bilateral chest pulmonary atelectasis, or scarring. 2. Borderline prominence of the cardiac silhouette. 3. Degenerative and postsurgical changes are demonstrated, as described above.
[2024-10-14 15:49] VITALS: BP 103/57; PULSE 79; RESP 17; TEMP 36.2; O2SAT 96
[2024-10-14] MEDS: MIDODRINE HCL 5 MG TABLET PO ×2 (15:58→21:37)
[2024-10-14 16:41] LABS: POC Glucose,Bedside 256 (70-110)
--- NOTE | 2024-10-14 17:19 | EXP.ACUTE.PN ---
Subjective *Date: 10/14/24 *Time: 20:36 Interval history: Patient's blood pressure soft overnight. Still having significant pain in left hip. Family at bedside, discussed goals with pain control. Explained difficulty in controlling pain/taking it away versus effect on blood pressure and keeping her alert and interactive. Patient states understanding. Goal is to decrease pain and keep it controlled but not take it away completely. Afebrile this morning. Alert and interactive on exam. Discussed possible side effects of pain meds including confusion and respiratory depression. Explained to patient that I would like to decrease risk for causing more problems than benefit. Will try nonpharmacologic modalities today including lidocaine and ice. Nausea improved today but still present. Medical Exam Vital signs and Labs for Last 24 Hours: Vital Signs Temp Pulse Resp BP Pulse Ox O2 Del Method 10/14/24 15:49 97.2 F L 79 17 103/57 L 96 Room Air 10/14/24 15:00 Room Air 10/14/24 13:00 Room Air 10/14/24 11:00 Room Air 10/14/24 09:00 Room Air 10/14/24 08:59 Room Air 10/14/24 08:00 97.6 F 88 16 87/54 L 91 L Room Air 10/14/24 05:00 Room Air 10/14/24 04:00 97.9 F 74 16 98/53 L 98 Room Air 10/14/24 03:00 Room Air 10/14/24 01:00 Room Air 10/14/24 00:00 98.1 F 81 16 82/48 L 96 Room Air 10/13/24 23:00 Room Air 10/13/24 21:00 Room Air 10/13/24 20:00 Room Air 10/13/24 20:00 97.7 F 82 16 85/51 L 96 Room Air 10/13/24 19:00 Room Air Intake and Output 10/14/24 10/14/24 10/14/24 07:59 15:59 23:59 Intake Total 2289 / 2889 600 / 2889 Output Total 125 / 125 Balance 2164 / 2764 600 / 2764 Intake: Intake, Oral Amount 240 / 840 600 / 840 Intake, Total IV Amount 2048 / 2048 Lactated Ringers 1000ML 1,000 2048 / 2048 ml @ 125 mls/hr IV .Q8H ONE Rx# :[id number] Output: Output, Urine Amount 125 / 125 Other: Weight 61.054 kg Patient Weight 10/14/24 23:59 Weight 61.054 kg Laboratory Results - last 24 hr 10/13/24 17:50: Ammonia < 9 L 10/13/24 21:26: POC Glucose 276 H 10/14/24 05:28: POC Glucose 281 H 10/14/24 06:31: WBC 10.3, RBC 3.00 L, Hgb 7.7 L, Hct 24.6 L, MCV 82.0, MCH 25.7 L, MCHC 31.3 L, RDW 17.1, Plt Count 156, MPV 9.9, Neut % (Auto) 79.0, Lymph % (Auto) 11.2, [place] % (Auto) 9.1, Eos % (Auto) 0.0 L, Baso % (Auto) 0.1, Neut # (Auto) 8.1 H, Lymph # (Auto) 1.2, [place] # (Auto) 0.9, Eos # (Auto) 0.0, Baso # (Auto) 0.0, Sodium 127 L, Potassium 6.0 H D, Chloride 94 L, Carbon Dioxide 21 L, Anion Gap 18.0 H, BUN 87 H, Creatinine 2.30 H D, Estimated Creat Clear 17, Estimated GFR 20 L, Est GFR ( Amer) 24 L D, Glucose 176 H, Calcium 9.5, Magnesium 2.0, Total Bilirubin 0.9, AST 51 H D, ALT 31 D, Alkaline Phosphatase 117, Total Protein 6.3, Albumin 3.7, Globulin 2.6, Albumin/Globulin Ratio 1.4 10/14/24 08:25: Blood Type O Positive, Antibody Screen Negative, Crossmatch (AHG) See Detail 10/14/24 10:51: POC Glucose 231 H 10/14/24 11:30: Potassium 6.1 H* 10/14/24 16:32: POC Glucose 256 H I & O for Labs for Last 24 Hours: Intake & Output 10/11/24 10/12/24 10/13/24 10/14/24 23:59 23:59 23:59 23:59 Intake Total 900 / 1815 2889 / 2889 Output Total 0 / 0 1475 / 1475 125 / 125 Balance 0 / 180 -575 / 340 2764 / 2764 Weight 57.153 kg 58 kg 61.054 kg Constitutional: Present no acute distress, thin, chronically ill appearing and cooperative Head: Present atraumatic and normocephalic ENT: Present normal exam Neck: Present normal inspection Respiratory: Present normal respiratory effort; Absent rhonchi, wheezes or crackles Cardiac: Present Reg Rate and Rhythm GI: Present soft and normal bowel sounds; Absent distention or tenderness Extremities: Absent normal inspection, full ROM or edema Comment:: Left leg shorter and externally rotated compared to right; bruising over left hip, tender to palpation Skin: Present intact; Absent erythema Neuro: Present Grossly Intact, alert, awake and moves all extremities Comment:: Oriented to self and place Assessment and Plan *Assessment and plan (1) Intertrochanteric fracture of left hip: Status: Acute Qualifiers: Encounter type: initial encounter Fracture alignment: displaced Fracture type: closed Qualified Code(s): S72.142A - Displaced intertrochanteric fracture of left femur, initial encounter for closed fracture Category: Medical Code(s): S72.142A - Displaced intertrochanteric fracture of left femur, initial encounter for closed fracture (2) Closed fracture of left hip: Status: Acute Category: Medical Code(s): S72.002A - Fracture of unspecified part of neck of left femur, initial encounter for closed fracture (3) Fall: Status: Acute Category: Medical Code(s): W19.XXXA - Unspecified fall, initial encounter (4) Cirrhosis: Status: Acute Qualifiers: Ascites presence: with ascites Hepatic cirrhosis type: unspecified hepatic cirrhosis Qualified Code(s): K74.60 - Unspecified cirrhosis of liver; R18.8 - Other ascites Category: Medical Code(s): K74.60 - Unspecified cirrhosis of liver (5) THANH (acute kidney injury): Status: Acute Category: Medical Code(s): N17.9 - Acute kidney failure, unspecified (6) Chronic Kidney Disease: Status: Acute Qualifiers: Chronic kidney disease stage: unspecified stage Qualified Code(s): N18.9 - Chronic kidney disease, unspecified Category: Medical Code(s): N18.9 - Chronic kidney disease, unspecified (7) Acute on chronic heart failure with preserved ejection fraction (HFpEF): Status: Acute Category: Medical Code(s): I50.33 - Acute on chronic diastolic (congestive) heart failure (8) Chronic kidney disease (CKD) stage G3b/A2, moderately decreased glomerular filtration rate (GFR) between 30-44 mL/min/1.73 square meter and albuminuria creatinine ratio between 30-299 mg/g: Status: Acute Category: Medical Code(s): N18.32 - Chronic kidney disease, stage 3b (9) Frail elderly: Status: Acute Category: Medical Code(s): R54 - Age-related physical debility (10) Diabetes mellitus type 2 in nonobese: Status: Acute Category: Medical Code(s): E11.9 - Type 2 diabetes mellitus without complications (11) Polypharmacy: Status: Acute Category: Medical Code(s): Z79.899 - Other immigration attorney (current) drug therapy (12) Coronary artery disease: Status: Acute Qualifiers: Associated angina: with other forms of angina Coronary Disease-Associated Artery/Lesion type: [place] artery [place] vs. transplanted heart: [place] heart Qualified Code(s): I25.118 - Atherosclerotic heart disease of [place] coronary artery with other forms of angina pectoris Category: Medical Code(s): I25.10 - Atherosclerotic heart disease of [place] coronary artery without angina pectoris (13) Atrial fibrillation: Status: Acute Qualifiers: Atrial fibrillation type: unspecified chronic Qualified Code(s): I48.20 - Chronic atrial fibrillation, unspecified Category: Medical Code(s): I48.91 - Unspecified atrial fibrillation (14) Anemia: Status: Acute Qualifiers: Anemia type: unspecified type Qualified Code(s): D64.9 - Anemia, unspecified Category: Medical Code(s): D64.9 - Anemia, unspecified (15) Acute on chronic congestive heart failure: Status: Acute Qualifiers: Heart failure type: unspecified Qualified Code(s): I50.9 - Heart failure, unspecified Category: Medical Code(s): I50.9 - Heart failure, unspecified (16) Pleural effusion: Status: Acute Category: Medical Code(s): J90 - Pleural effusion, not elsewhere classified (17) Abdominal ascites: Status: Acute Qualifiers: Ascites type: other type Qualified Code(s): R18.8 - Other ascites Category: Medical Code(s): R18.8 - Other ascites (18) Cirrhosis of liver: Status: Acute Qualifiers: Ascites presence: unspecified Hepatic cirrhosis type: unspecified hepatic cirrhosis Qualified Code(s): K74.60 - Unspecified cirrhosis of liver Category: Medical Code(s): K74.60 - Unspecified cirrhosis of liver (19) CKD (chronic kidney disease) stage 3, GFR 30-59 ml/min: Status: Deleted Qualifiers: Chronic kidney disease stage 3 subtype: stage 3a (GFR 45-59) Qualified Code(s): N18.31 - Chronic kidney disease, stage 3a Category: Medical Code(s): N18.30 - Chronic kidney disease, stage 3 unspecified (20) Aneurysm of splenic artery: Status: Acute Category: Medical Code(s): I72.8 - Aneurysm of other specified arteries Plan 89-year-old female with PMHx of IDDM, CKD, CAD, Afib, pacemaker in situ, heart failure preserved ejection fraction, recent diagnosis of cirrhosis with ascites and anasarca 10 months ago. Presented to the ER after a fall. Found to have left hip fracture. Discussed case with ER physician, request admission for medical optimization and surgery. Orthopedics consulted. I agreed to admit for further care. Holding anticoagulation. Will need to wait 48 to 72 hours prior to surgery. Requiring inpatient management. Blood pressure soft, initiated midodrine. Seeing negative trend in kidney function. Continuing to await surgery for Wednesday once patient is stable for nerve block. Nausea improved today. Problems addressed as follows: Left intertrochanteric fracture of femur Hip pain Fall - Orthopedics consulted, discussed case with orthopedics, continue to recommend surgery on Wednesday after holding anticoagulation for at least 72 hours - Patient is elevated risk for intermediate risk procedure (hip surgery). Without surgery, patient will be in constant pain and have no chance of meaningful recovery or ambulation, she would surely be a hospice patient. Family wants to take risk of surgery and give patient a chance for stable hip and ambulation again. Given her comorbidities, would benefit from epidural rather than general sedation due to lower risk. Will obtain preoperative EKG for baseline. -PT and OT consult for after surgery. Patient will likely necessitate placement. Further management pending their recommendations and surgical fixation of hip -Continue oxycodone 5 mg every 4 hours. Discontinue Dilaudid. Patient having some confusion. Counseled on expectations for pain control goals. Concern for some toxicity, continues to require close monitoring. -Zofran 8 mg every 6 hours as needed for nausea secondary to pain and pain meds along with chronic nausea HFpEF A-fib Hyperlipidemia CAD -Holding Plavix and Xarelto. - Patient does not appear to be in exacerbation at this time. Last echo performed in January 2024. Shows normal LV function. Severe RV dilation with severe TR. ECHO showed grade II diastolic dysfunction with preserved EF -Caution with fluids. Patient hypotensive however. Administering additional 500 cc of NS over 2 hours today. Initiate midodrine 5 mg 3 times a day to maintain MAP greater than 65. -Discontinue bisoprolol, Jardiance, isosorbide. Will hold on diuresis and consider again tomorrow Acute on chronic anemia. Hemoglobin dropped to 7.7, transfusion threshold hemoglobin less than 7. Typed and crossed for 2 units today given continued trickle down. Repeat H&H this afternoon to evaluate for possible transfusion today Cirrhosis of the liver Aneurism of the splenic: Recurring ascites Most recent paracentesis performed 1 month ago on 09/06. Removed approximately 3-1/2 L of fluid. BUN increased to 87, creatinine 2.3. Potassium up to 6. Monitoring closely with repeat level this afternoon. EKG obtained, no T wave abnormalities. Will hold on treatment as patient has not had a bowel movement in 2 days. Lokelma would be contraindicated right now. Repeat potassium level ordered for noon and again at 6 PM. Monitor for improvement with fluids. Repeat CBC, CMP, magnesium ordered for the morning. Patient has SUMMERS score of F2-bridging fibrosis Child Krueger B on bowel regimen Docusate BID Follows with GI. IDDM: accucheck before meal Glucose 176 on morning labs home lantus 11 units BID last A1c 7.9, 3 months ago. Goal A1c less than 8. Repeat A1c 9.7 this morning. sliding scale insulin with meals and at bedtime DNR/DNI Holding Xarelto and Plavix. Will reevaluate Lovenox in the morning Cardiac diet, n.p.o. Wednesday night pending surgery Wednesday
[2024-10-14 18:26] LABS: Hemoglobin 8.2 g/dL (12.2-16.2)
[2024-10-14 18:51] LABS: Anion Gap 18.7 mEq/L (5-15); Calcium 9.3 mg/dl (8.4-10.2); Carbon Dioxide 20 mmol/L (22.0-30.0); Chloride 92 mmol/L (98-107); Creatinine Clearance Estimated 15 mL/min (50-200); Estimated Glomerular Filt Rate 17 ml/min (>60); GFR (African American) 21 ML/MIN (>60); Glucose 215 mg/dl (74-100); Potassium 5.7 mmoL/L (3.5-5.1); Sodium 125 mmol/L (136-145)
[2024-10-14 18:53] LABS: Blood Urea Nitrogen 93 mg/dl (7-17)
[2024-10-14 20:00] VITALS: BP 107/46; PULSE 93; RESP 16; TEMP 36.3; O2SAT 100
[2024-10-14] MEDS: MINERAL OIL ENEMA 133ML 133 ML RC (20:17)
[2024-10-14] MEDS: 0.9 % SODIUM CHLORIDE 1000ML 500 ML 250 ML IV (20:18)
[2024-10-14] MEDS: PANTOPRAZOLE 40MG TABLET 40 MG PO (21:37)
[2024-10-15] MEDS: METHOCARBAMOL 500MG TABLET 500 MG PO ×2 (01:37→11:52)
[2024-10-15] MEDS: OXYCODONE 5MG IMMEDIATE RELEASE TABLET 5 MG PO ×4 (03:37→21:42)
[2024-10-15 04:00] VITALS: BP 105/57; PULSE 100; RESP 16; TEMP 36.6; O2SAT 98; BMI 26.2
--- NOTE | 2024-10-15 04:35 | PC.NURSE ---
89 yo fe pt is A/O X 3. She is bedfast and requires 2 assist with turning and repositioning. Pt continues to report high levels of pain but able to rest at times with use of oxycodone. Pt was given Mineral Oil Fleets enema with no results. Also administered 500 ml bolus of IVF per order. She has been able to tolerate diet. FSBS was 203 at 2100. Daughter has remained at bedside.
[2024-10-15] MEDS: LEVOTHYROXINE 50MCG (0.05MG) TAB 50 MCG PO (06:21)
[2024-10-15 06:26] LABS: POC Glucose,Bedside 137 (70-110)
[2024-10-15 07:56] VITALS: BP 130/71; PULSE 116; RESP 16; TEMP 37.2; O2SAT 100
[2024-10-15 08:17] LABS: Basophils % 0.1 % (0.1-2.0); Hematocrit 24.5 % (37.0-47.0); Hemoglobin 7.9 g/dL (12.2-16.2); Lymphocytes # 0.8 K/mm3 (0.7-4.5); Lymphocytes % 7.4 % (10-50); Mean Corpuscular HGB Conc 32.2 g/dL (31.8-35.4); Mean Corpuscular Hemoglobin 25.8 pg (27.0-31.2); Mean Corpuscular Volume 80.1 fl (81-99); Mean Platelet Volume 10.5 fl (7.4-10.4); Monocytes # 1.1 K/mm3 (0.1-1.0); Monocytes % 10.7 % (1.7-9.3); Neutrophils # 8.6 K/mm3 (1.8-7.8); Neutrophils % 81.2 % (37.0-80.0); Platelet Count 176 K/mm3 (142-424); Red Blood Count 3.06 M/mm3 (4.20-5.40); Red Cell Distribution Width 17.3 % (11.5-17.5); White Blood Count 10.6 K/mm3 (4.8-10.8)
[2024-10-15 08:31] LABS: Albumin Level 3.7 g/dl (3.5-5.0); Chloride 94 mmol/L (98-107); Potassium 5.2 mmoL/L (3.5-5.1); Sodium 126 mmol/L (136-145)
[2024-10-15 08:33] LABS: Creatinine Clearance Estimated 17 mL/min (50-200); Estimated Glomerular Filt Rate 21 ml/min (>60); GFR (African American) 26 ML/MIN (>60)
[2024-10-15 08:34] LABS: Alanine Aminotransferase 35 U/L (12-78); Albumin/Globulin Ratio 1.3 (1.1-1.8); Alkaline Phosphatase 127 U/L (38-126); Anion Gap 17.2 mEq/L (5-15); Aspartate Amino Transferase 61 U/L (14-36); Calcium 9.3 mg/dl (8.4-10.2); Carbon Dioxide 20 mmol/L (22.0-30.0); Globulin 2.8 g/dL (1.3-3.2); Glucose 108 mg/dl (74-100); Total Protein,Serum 6.5 g/dl (6.3-8.2)
[2024-10-15 08:50] LABS: Blood Urea Nitrogen 90 mg/dl (7-17)
[2024-10-15 09:14] LABS: Magnesium 2.2 mg/dl (1.6-2.3)
[2024-10-15] MEDS: MIDODRINE HCL 5 MG TABLET PO ×3 (09:18→21:12)
[2024-10-15] MEDS: LACTULOSE 20GM/30ML UDC 10 GM PO ×4 (09:18→21:11)
[2024-10-15] MEDS: SERTRALINE 100MG TABLET 100 MG PO (09:18)
[2024-10-15] MEDS: INSULIN GLARGINE 100 UNITS/ML 3ML FLEXPEN 11 UNIT SUBCUT ×2 (09:18→21:11)
[2024-10-15] MEDS: SENNOSIDES 8.6MG/DOCUSATE 50MG TABLET 1 TAB PO (09:18)
[2024-10-15] MEDS: LIDOCAINE 5% TRANSDERMAL PATCH 1 EACH TP (09:19)
[2024-10-15] MEDS: 0.9 % SODIUM CHLORIDE 1000ML 500 ML 250 ML IV (11:27)
[2024-10-15] MEDS: METOPROLOL TARTRATE 25MG TABLET 25 MG PO (11:41)
[2024-10-15] MEDS: BISACODYL 10MG SUPP 10 MG RC (11:42)
[2024-10-15 11:45] LABS: POC Glucose,Bedside 185 (70-110)
[2024-10-15] MEDS: humaLOG 100 UNITS/ML 10ML VIAL (SSI) SUBCUT ×3 (11:52→21:07)
[2024-10-15 12:00] VITALS: BP 93/64; PULSE 109; PULSE 110; RESP 17; TEMP 36.7; O2SAT 94
--- NOTE | 2024-10-15 15:54 | EXP.ACUTE.PN ---
Subjective *Date: 10/15/24 *Time: 16:09 Interval history: Appears comfortable this morning. Stable on room air. Denies any chest pain or shortness of breath. Heart rate increasing today. Has not had her bisoprolol or verapamil since admission due to low blood pressure. Somewhat better p.o. intake this morning. Still no bowel movement. Medical Exam Vital signs and Labs for Last 24 Hours: Vital Signs Temp Pulse Resp BP Pulse Ox O2 Del Method 10/15/24 15:00 Room Air 10/15/24 13:00 Room Air 10/15/24 12:00 98.1 F 109 H 17 93/64 L 94 L 10/15/24 11:00 Room Air 10/15/24 09:18 Room Air 10/15/24 09:00 Room Air 10/15/24 07:56 98.9 F 116 H 16 130/71 100 Room Air 10/15/24 06:47 Room Air 10/15/24 05:00 Room Air 10/15/24 04:00 97.8 F 100 H 16 105/57 L 98 Room Air 10/15/24 03:00 Room Air 10/15/24 01:00 Room Air 10/14/24 23:00 Room Air 10/14/24 21:00 Room Air 10/14/24 20:00 100 Room Air 10/14/24 20:00 97.3 F L 93 H 16 107/46 L 100 Room Air 10/14/24 18:31 Room Air 10/14/24 17:00 Room Air Intake and Output 10/14/24 10/15/24 10/15/24 23:59 07:59 15:59 Intake Total 480 / 3969 600 / 1050 450 / 1050 Output Total 550 / 550 Balance 480 / 3844 50 / 500 450 / 500 Intake: Intake, Oral Amount 480 / 1420 100 / 550 450 / 550 Intake, Total IV Amount 500 / 500 0.9 % Sodium Chloride 1000ML 500 / 500 500 ml @ 250 mls/hr IV .Q2H ONE Rx#:[id number] Output: Output, Urine Amount 550 / 550 Other: Weight 60.736 kg Patient Weight 10/15/24 23:59 Weight 60.736 kg Laboratory Results - last 24 hr 10/14/24 16:32: POC Glucose 256 H 10/14/24 18:05: Hgb 8.2 L, Hct 26.0 L, Sodium 125 L, Potassium 5.7 H, Chloride 92 L, Carbon Dioxide 20 L, Anion Gap 18.7 H, BUN 93 H, Creatinine 2.60 H, Estimated Creat Clear 15, Estimated GFR 17 L*, Est GFR ( Amer) 21 L, Glucose 215 H D, Calcium 9.3 10/15/24 06:18: POC Glucose 137 H 10/15/24 08:00: WBC 10.6, RBC 3.06 L, Hgb 7.9 L, Hct 24.5 L, MCV 80.1 L, MCH 25.8 L, MCHC 32.2, RDW 17.3, Plt Count 176, MPV 10.5 H, Neut % (Auto) 81.2 H, Lymph % (Auto) 7.4 L, [place] % (Auto) 10.7 H, Eos % (Auto) 0.0 L, Baso % (Auto) 0.1, Neut # (Auto) 8.6 H, Lymph # (Auto) 0.8, [place] # (Auto) 1.1 H, Eos # (Auto) 0.0, Baso # (Auto) 0.0, Sodium 126 L, Potassium 5.2 H, Chloride 94 L, Carbon Dioxide 20 L, Anion Gap 17.2 H, BUN 90 H, Creatinine 2.20 H, Estimated Creat Clear 17, Estimated GFR 21 L, Est GFR ( Amer) 26 L D, Glucose 108 H D, Calcium 9.3, Magnesium 2.2, Total Bilirubin 1.0, AST 61 H, ALT 35, Alkaline Phosphatase 127 H, Total Protein 6.5, Albumin 3.7, Globulin 2.8, Albumin/Globulin Ratio 1.3 10/15/24 11:33: POC Glucose 185 H I & O for Labs for Last 24 Hours: Intake & Output 10/12/24 10/13/24 10/14/24 10/15/24 23:59 23:59 23:59 23:59 Intake Total 900 / 1815 3369 / 3969 1050 / 1050 Output Total 0 / 0 1475 / 1475 125 / 125 550 / 550 Balance 0 / 180 -575 / 340 3244 / 3844 500 / 500 Weight 57.153 kg 58 kg 61.054 kg 60.736 kg Constitutional: Present no acute distress, thin, chronically ill appearing and cooperative Head: Present atraumatic and normocephalic ENT: Present normal exam Neck: Present normal inspection Respiratory: Present normal respiratory effort; Absent rhonchi, wheezes or crackles Cardiac: Present Reg Rate and Rhythm GI: Present soft and normal bowel sounds; Absent distention or tenderness Extremities: Absent normal inspection, full ROM or edema Comment:: Left leg shorter and externally rotated compared to right; bruising over left hip, tender to palpation Skin: Present intact; Absent erythema Neuro: Present Grossly Intact, alert, awake and moves all extremities Comment:: Oriented to self and place Assessment and Plan *Assessment and plan (1) Intertrochanteric fracture of left hip: Status: Acute Qualifiers: Encounter type: initial encounter Fracture alignment: displaced Fracture type: closed Qualified Code(s): S72.142A - Displaced intertrochanteric fracture of left femur, initial encounter for closed fracture Category: Medical Code(s): S72.142A - Displaced intertrochanteric fracture of left femur, initial encounter for closed fracture (2) Closed fracture of left hip: Status: Acute Category: Medical Code(s): S72.002A - Fracture of unspecified part of neck of left femur, initial encounter for closed fracture (3) Fall: Status: Acute Category: Medical Code(s): W19.XXXA - Unspecified fall, initial encounter (4) Cirrhosis: Status: Acute Qualifiers: Ascites presence: with ascites Hepatic cirrhosis type: unspecified hepatic cirrhosis Qualified Code(s): K74.60 - Unspecified cirrhosis of liver; R18.8 - Other ascites Category: Medical Code(s): K74.60 - Unspecified cirrhosis of liver (5) THANH (acute kidney injury): Status: Acute Category: Medical Code(s): N17.9 - Acute kidney failure, unspecified (6) Acute on chronic heart failure with preserved ejection fraction (HFpEF): Status: Acute Category: Medical Code(s): I50.33 - Acute on chronic diastolic (congestive) heart failure (7) Frail elderly: Status: Acute Category: Medical Code(s): R54 - Age-related physical debility (8) Diabetes mellitus type 2 in nonobese: Status: Acute Category: Medical Code(s): E11.9 - Type 2 diabetes mellitus without complications (9) Polypharmacy: Status: Acute Category: Medical Code(s): Z79.899 - Other usp (current) drug therapy (10) Coronary artery disease: Status: Acute Qualifiers: Associated angina: with other forms of angina Coronary Disease-Associated Artery/Lesion type: [place] artery [place] vs. transplanted heart: [place] heart Qualified Code(s): I25.118 - Atherosclerotic heart disease of [place] coronary artery with other forms of angina pectoris Category: Medical Code(s): I25.10 - Atherosclerotic heart disease of [place] coronary artery without angina pectoris (11) Atrial fibrillation: Status: Acute Qualifiers: Atrial fibrillation type: unspecified chronic Qualified Code(s): I48.20 - Chronic atrial fibrillation, unspecified Category: Medical Code(s): I48.91 - Unspecified atrial fibrillation (12) Anemia: Status: Acute Qualifiers: Anemia type: unspecified type Qualified Code(s): D64.9 - Anemia, unspecified Category: Medical Code(s): D64.9 - Anemia, unspecified (13) Pleural effusion: Status: Acute Category: Medical Code(s): J90 - Pleural effusion, not elsewhere classified (14) Abdominal ascites: Status: Acute Qualifiers: Ascites type: other type Qualified Code(s): R18.8 - Other ascites Category: Medical Code(s): R18.8 - Other ascites (15) CKD (chronic kidney disease) stage 3, GFR 30-59 ml/min: Status: Deleted Qualifiers: Chronic kidney disease stage 3 subtype: stage 3a (GFR 45-59) Qualified Code(s): N18.31 - Chronic kidney disease, stage 3a Category: Medical Code(s): N18.30 - Chronic kidney disease, stage 3 unspecified (16) Aneurysm of splenic artery: Status: Acute Category: Medical Code(s): I72.8 - Aneurysm of other specified arteries Plan 89-year-old female with PMHx of IDDM, CKD, CAD, Afib, pacemaker in situ, heart failure preserved ejection fraction, recent diagnosis of cirrhosis with ascites and anasarca 10 months ago. Presented to the ER after a fall. Found to have left hip fracture. Discussed case with ER physician, request admission for medical optimization and surgery. Orthopedics consulted. I agreed to admit for further care. Holding anticoagulation. Will need to wait 48 to 72 hours prior to surgery. Requiring inpatient management. Has had some improvement in blood pressure since initiating midodrine. Labs relatively stable today. Pain stable. Awaiting surgical intervention on Wednesday. Problems addressed as follows: Left intertrochanteric fracture of femur Hip pain Fall - Orthopedics consulted, surgery planned for tomorrow morning. - Patient is elevated risk for intermediate risk procedure (hip surgery). Without surgery, patient will be in constant pain and have no chance of meaningful recovery or ambulation, she would surely be a hospice patient. Family wants to take risk of surgery and give patient a chance for stable hip and ambulation again. Given her comorbidities, would benefit from epidural rather than general sedation due to lower risk. Will obtain preoperative EKG for baseline. -PT and OT consult for after surgery. Patient will likely necessitate placement. Further management pending their recommendations and surgical fixation of hip -Continue oxycodone 5 mg every 4 hours. Discontinue Dilaudid. Patient having some confusion. Counseled on expectations for pain control goals. Concern for some toxicity, continues to require close monitoring. -Zofran 8 mg every 6 hours as needed for nausea secondary to pain and pain meds along with chronic nausea HFpEF A-fib Hyperlipidemia CAD -Holding Plavix and Xarelto. - Patient does not appear to be in exacerbation at this time. Last echo performed in January 2024. Shows normal LV function. Severe RV dilation with severe TR. ECHO showed grade II diastolic dysfunction with preserved EF -Caution with fluids. Tolerating midodrine 5 mg 3 times a day with improvement in blood pressure. Administer additional 500 cc NS over 2 hours this morning. -Initiate metoprolol due to tachycardia. Given 25 mg tartrate this morning. Will increase to 50 mg metoprolol to tartrate this evenin -Discontinue bisoprolol, Jardiance, isosorbide. Will hold on diuresis and consider again tomorrow Acute on chronic anemia. - Hemoglobin stable at 7.9 today.infusion threshold hemoglobin less than 7. Typed and crossed for 2 units, repeat CBC in the morning Cirrhosis of the liver Aneurism of the splenic: Recurring ascites Most recent paracentesis performed 6wks ago on 09/06. Removed approximately 3-1/2 L of fluid. BUN 90. Creatinine stable at 2.2. Potassium better at 5.2. Magnesium 2.2. Repeat CBC, CMP, magnesium ordered for the morning. Patient has SUMMERS score of F2-bridging fibrosis; Child Krueger B Constipation: On bowel regimen Docusate BID, lactulose 4 times a day. Enema administered yesterday, suppository today. Patient still has not had a bowel movement IDDM: accucheck before meal Glucose 108 this morning. home lantus 11 units BID last A1c 7.9, 3 months ago. Goal A1c less than 8. Repeat A1c 9.7 this admission. sliding scale insulin with meals and at bedtime DNR/DNI Holding Xarelto and Plavix. Will reevaluate Lovenox in the morning Cardiac diet, n.p.o. Wednesday night pending surgery Wednesday
[2024-10-15 16:00] VITALS: BP 105/57; PULSE 110; PULSE 117; RESP 16; TEMP 36.6; O2SAT 97
[2024-10-15 16:25] LABS: POC Glucose,Bedside 197 (70-110)
[2024-10-15] MEDS: METOPROLOL TARTRATE 5MG/5ML VIAL 5 MG IV (16:25)
--- NOTE | 2024-10-15 17:15 | P.PN_ITS ---
Subjective Patient reports: no new complaints and still having pain Exam Data for Last 24 hours Vital signs and Labs for Last 24 Hours: Temp Pulse Resp BP Pulse Ox O2 Del Method 98 F 117 H 16 105/57 L 97 Room Air 10/15/24 16:00 10/15/24 16:00 10/15/24 16:00 10/15/24 16:00 10/15/24 16:00 10/15/24 16:00 Laboratory Results - last 24 hr 10/14/24 18:05: Hgb 8.2 L, Hct 26.0 L, Sodium 125 L, Potassium 5.7 H, Chloride 92 L, Carbon Dioxide 20 L, Anion Gap 18.7 H, BUN 93 H, Creatinine 2.60 H, Estimated Creat Clear 15, Estimated GFR 17 L*, Est GFR ( Amer) 21 L, Glucose 215 H D, Calcium 9.3 10/15/24 06:18: POC Glucose 137 H 10/15/24 08:00: WBC 10.6, RBC 3.06 L, Hgb 7.9 L, Hct 24.5 L, MCV 80.1 L, MCH 25.8 L, MCHC 32.2, RDW 17.3, Plt Count 176, MPV 10.5 H, Neut % (Auto) 81.2 H, Lymph % (Auto) 7.4 L, [place] % (Auto) 10.7 H, Eos % (Auto) 0.0 L, Baso % (Auto) 0.1, Neut # (Auto) 8.6 H, Lymph # (Auto) 0.8, [place] # (Auto) 1.1 H, Eos # (Auto) 0.0, Baso # (Auto) 0.0, Sodium 126 L, Potassium 5.2 H, Chloride 94 L, Carbon Dioxide 20 L, Anion Gap 17.2 H, BUN 90 H, Creatinine 2.20 H, Estimated Creat Clear 17, Estimated GFR 21 L, Est GFR ( Amer) 26 L D, Glucose 108 H D, Calcium 9.3, Magnesium 2.2, Total Bilirubin 1.0, AST 61 H, ALT 35, Alkaline Phosphatase 127 H, Total Protein 6.5, Albumin 3.7, Globulin 2.8, Albumin/Globulin Ratio 1.3 10/15/24 11:33: POC Glucose 185 H 10/15/24 16:16: POC Glucose 197 H I & O for Last 24 hours: Intake & Output 10/12/24 10/13/24 10/14/24 10/15/24 23:59 23:59 23:59 23:59 Intake Total 900 / 1815 3369 / 3969 1050 / 1050 Output Total 0 / 0 1475 / 1475 125 / 125 550 / 550 Balance 0 / 180 -575 / 340 3244 / 3844 500 / 500 Weight 57.153 kg 58 kg 61.054 kg 60.736 kg Detailed Lower Extremity Exam Comments: L hip: No erythema, ecchymosis. + Edema, thigh SNT. +NVID with +2 DP, SILT at 1st DWS/PA, + motor EHL/FHL/GS/TA. Calves SNT. Progress Note: A&P Assessment and plan (1) Intertrochanteric fracture of left hip: Status: Acute Assessment and plan: Patient to undergo L TFN on 10/16/24 as add-on with Dr. Rendon. NPO after MN ordered. T&S within 3 days. Ancef 1g cyber systems operations specialist to OR for 10/16/23 PM- weight <70kg. Pain control PRN. Ice to L hip PRN. Monitor NV status. FUrther care per medical team appreciated. (2) Closed fracture of left hip: Status: Acute (3) Fall: Status: Acute (4) Cirrhosis: Status: Acute (5) THANH (acute kidney injury): Status: Acute (6) Acute on chronic heart failure with preserved ejection fraction (HFpEF): Status: Acute (7) Frail elderly: Status: Acute (8) Diabetes mellitus type 2 in nonobese: Status: Acute (9) Polypharmacy: Status: Acute (10) Coronary artery disease: Status: Acute (11) Atrial fibrillation: Status: Acute (12) Anemia: Status: Acute (13) Pleural effusion: Status: Acute (14) Abdominal ascites: Status: Acute (15) CKD (chronic kidney disease) stage 3, GFR 30-59 ml/min: Status: Deleted (16) Aneurysm of splenic artery: Status: Acute
[2024-10-15 20:00] VITALS: BP 109/60; PULSE 110; PULSE 115; RESP 16; TEMP 36.4; O2SAT 97
[2024-10-15] MEDS: PANTOPRAZOLE 40MG TABLET 40 MG PO (21:12)
[2024-10-15] MEDS: METOPROLOL TARTRATE 50MG TABLET 50 MG PO (21:12)
[2024-10-15 21:27] LABS: POC Glucose,Bedside 215 (70-110)
[2024-10-16] VITALS (22 sets, daily range): BP systolic 91–117; BP diastolic 46–80; PULSE 65–121; RESP 14–19; TEMP 36.2–37.2; O2SAT 95–100; BMI 26.9
[2024-10-16] MEDS: OXYCODONE 5MG IMMEDIATE RELEASE TABLET 5 MG PO ×2 (02:26→18:26)
--- NOTE | 2024-10-16 05:35 | PC.NURSE ---
89 yo fe pt is A/O X 3. Daughter has remained at pts bedside throughout the night. pt continues to report pain to hip area but reports oxycodone as effective. Noted pt has been able to sleep some through the shift. Pt tolerating diet but has been NPO since MN with plans for hip repair . Pt has not had BM this shift but has good BS and is passing gas. FSBS was 215 at 9 pm. She is still in A fib per telemetry HR 100 at 4 am. She has denied any chest pain or SOA.
[2024-10-16] MEDS: humaLOG 100 UNITS/ML 10ML VIAL (SSI) SUBCUT ×4 (06:06→21:05)
[2024-10-16 06:17] LABS: POC Glucose,Bedside 171 (70-110)
[2024-10-16 06:44] LABS: Alanine Aminotransferase 34 U/L (12-78); Albumin Level 3.4 g/dl (3.5-5.0); Albumin/Globulin Ratio 1.2 (1.1-1.8); Alkaline Phosphatase 140 U/L (38-126); Anion Gap 17.9 mEq/L (5-15); Aspartate Amino Transferase 56 U/L (14-36); Bilirubin,Total 0.8 mg/dl (0.2-1.3); Calcium 8.9 mg/dl (8.4-10.2); Carbon Dioxide 19 mmol/L (22.0-30.0); Chloride 97 mmol/L (98-107); Creatinine Clearance Estimated 20 mL/min (50-200); Estimated Glomerular Filt Rate 25 ml/min (>60); GFR (African American) 30 ML/MIN (>60); Globulin 2.8 g/dL (1.3-3.2); Glucose 146 mg/dl (74-100); Potassium 4.9 mmoL/L (3.5-5.1); Sodium 129 mmol/L (136-145); Total Protein,Serum 6.2 g/dl (6.3-8.2)
[2024-10-16 06:45] LABS: Blood Urea Nitrogen 87 mg/dl (7-17)
[2024-10-16] MEDS: METOPROLOL TARTRATE 50MG TABLET 50 MG PO ×2 (08:45→21:05)
[2024-10-16] MEDS: MIDODRINE HCL 5 MG TABLET PO ×3 (08:45→21:05)
[2024-10-16] MEDS: SERTRALINE 100MG TABLET 100 MG PO (08:45)
--- NOTE | 2024-10-16 09:00 | P.PNANES_ITS ---
[facility] Disclaimer: The information contained in this section may have been updated after the patient was seen, as this information can be updated by other users. Medical History Chronic Kidney Disease Acute on chronic heart failure with preserved ejection fraction (HFpEF) Seasonal allergies Hyperlipemia Hypertension Atypical angina Abnormal cardiovascular stress test Nausea vomiting and diarrhea Atypical chest pain Fatigue Gastroenteritis Arthritis History of anemia History of gastroesophageal reflux (GERD) Diabetes mellitus, type 2 History of cataract Arrhythmia History of pacemaker History of left heart catheterization (LHC) Gastritis Acute blood loss anemia (ABLA) Hyperglycemia Angina at rest Hyperglycemia without ketosis PAF (paroxysmal atrial fibrillation) Acute kidney injury DKA (diabetic ketoacidosis) Dyspnea Lactose intolerance Strep throat Pancytopenia 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 antigen is unknown, or is not H7 Hypokalemia Hypotension Digitalis toxicity Edema SOB (shortness of breath) Leukocytosis Colitis Viral gastroenteritis Lactic acidosis Hyperglycemia due to diabetes mellitus Palpitations Primary osteoarthritis of right shoulder CHF (congestive heart failure) Cardiomyopathy Atrial fibrillation with RVR Right shoulder pain Peripheral arterial disease Atrial fibrillation Hyperkalemia Renal insufficiency Urinary tract infection Anemia Acute renal insufficiency Cardiogenic shock Diabetes Pre-syncope Contusion of sternum Fatigue SOB (shortness of breath) on exertion Leg pain, bilateral HLD (hyperlipidemia) Angina pectoris Cardiac pacemaker in situ SSS (sick sinus syndrome) HTN (hypertension) Pulmonary HTN Chest wall pain following surgery Coronary artery disease Surgical History History of esophagogastroduodenoscopy (EGD) Hx of tonsillectomy History of colonoscopy History of hysterectomy History of appendectomy History of cholecystectomy Family History Other Family history of cancer No significant family history Social History Smoking Status: Never smoker second hand exposure: No alcohol intake: never substance use type: denies use current occupational status: disabled Travel in the last 8 weeks: None household members: family housing: house caffeine: No Have you lived/traveled outside [place] in past 30 days?: No Contact w/someone who lives/traveled outside US past 30 days?: No Exposure to someone with infectious disease in past 14 days?: No Do you have a fever (greater than 100.4 F or 38 C)?: No Have you tested positive for COVID-19: No Exposed to someone with COVID-19 in past 14 days?: No Do you have a sore throat?: No Do you have a cough?: No Do you have any weakness?: No Do you have any diarrhea?: No Are you experiencing any unusual bleeding?: No Do you have any muscle aches/pain?: No Do you have any abdominal pain?: No Are you experiencing loss of taste or smell?: No [facility] Anesthesia Checklist Patient Identification Patient Identification: Arm Band and Verbal (Name & ) Structural Data Admitted From: Inpatient Planned Operative Procedure/s: TFN Consent for Planned Operative Procedure(s) Verified: Yes Verified Documents: Surgical Consent and History and Physical NPO Status Verified Time NPO: 00:00 Additional verifications Anesthesia Reactions: No Hx Blood Transfusions: Yes Blood Transfusion Reaction: No Airway Assessment Mallampati Score:: Class IV C-Spine Mobility Assessed: Yes TMJ Mobility Assessed: Yes Dentition: Edentulous Neurological Assessment Level of Consciousness: Awake Hx Seizures: No Numbness or tingling in extremities: No Anesthesia Plan Anesthesia Risk discussed: Yes Anesthesia Plan: Verified ASA Class: IV Anesthesia Type: MAC w/Spinal
[2024-10-16] MEDS: CEFAZOLIN SODIUM 1 GM in 0.9 % SODIUM CHLORIDE 50 ML IV (09:15)
--- NOTE | 2024-10-16 10:44 | EXP.OP.NOTE ---
Date of procedure: 10/16/24 Pre-op Diagnosis:: Left intertrochanteric hip fracture Post-op Diagnosis:: Same Procedure performed:: Cephalomedullary nailing left proximal femur Surgeon:: Gonzalo Rendon DO TAB CARD PRESS OPERATOR:: Armando Donnelly Anesthesia: spinal Estimated blood loss (mL): 50 Clinical Note:: [employer] TFN cephalomedullary nail 11 mm with 85 mm helical blade Operative findings:: See dictation Operative note:: Patient is identified preoperatively. Left hip was marked yes my initials. Then transferred operative suite. Given spinal anesthesia. Then placed on the fracture table. Within the fracture table the operative leg was placed inline traction with the fracture table opposite leg in the semilithotomy position but all bony prominences well-padded. X-ray was brought into identify the fracture intertrochanteric area of the hip. Using x-ray guidance reduction was performed through the fracture table with traction and internal rotation to allow for proper reduction of the hip. Once this reduction was performed the hip was prepped and draped in normal sterile fashion. Once prepped and draped final operative timeout performed to identify proper patient procedure and extremity. Everyone involved in the case agreed. There were no counter indications to beginning. She did receive preoperative antibiotics. Marking pen was used to maggie plan incision 2 fingerbreadths above the greater trochanter. Incision was made through skin IT band dissection was taken down to the tip of the greater trochanter which was palpated and the opening guidewire was placed on the tip of the greater trochanter. Using x-ray guidance the opening guidewire was placed down through the tip of the greater trochanter down through the canal of the femur. Once this was I identified on the x-ray the opening reamer with protective sleeve was utilized for opening reaming proximally followed by the short 11 mm TFN nail. This was placed over the guidewire and down into the femur. The x-ray was used to show proper depth of the nail. Guidewire was utilized for the guidance of the helical blade this was viewed on the AP and lateral views to be in the center center position it was drilled and the proper depth was utilized that measured 87 therefore a size 85 screw was selected. Lateral cortex reamer was used followed by the step reamer set at 85 mm. And then the helical blade was impacted into place under direct visualization. It was then locked into place and the jig was removed. Attention was then brought to the distal locking screw bicortical screw was drilled and visualized measured and placed then removed the guide took pictures in the AP lateral views to confirm proper reduction and placement of the nail. Once confirmed irrigation wound performed. IT band closed with 0 Vicryl. Subcutaneous with 0 Vicryl 2-0 Vicryl and surgical clips in the skin for closure. Patient waken anesthesia taken recovery stable condition Condition: stable Disposition: PACU Complications:: None apparent
--- NOTE | 2024-10-16 10:47 | XR_ITS ---
FINAL REPORT CLINICAL HISTORY: TFN- Cephalomedullary Nailing in OR 1.1 min 16.38 mGy FINDINGS: FLUOROSCOPY LESS THAN 1 HOUR HISTORY: Fluoroscopy guidance. Fluoroscopic guidance was provided for left hip cephalomedullary nailing in the OR. 3 spot films were obtained. A total of 1.1 minutes of fluoroscopy time were used. Total DAP: 16.38 mGy IMPRESSION: As above. Reviewed, Interpreted and Dictated by Alessandro Burrell MD Transcribed by Angela Post Authenticated and [facility]
--- NOTE | 2024-10-16 11:13 | EXP.ANES.I ---
[facility] Anesthesia Record Part I Anesthesia Record I Intake, IV Amount: 850 Hydration: Adequate Estimated blood loss (mL): 100 Urine output (mL): 300 Blood Products used (#): none Blood Pressure: 109/62 SaO2: 100 Pulse Rate: 80 Airway Patency: Patent Respiratory Rate: 16 Temperature: 97.2 F Patient is:: Drowsy and Stable Stable to PACU at:: 11:05
[2024-10-16 12:26] LABS: POC Glucose,Bedside 158 (70-110)
[2024-10-16] MEDS: LACTULOSE 20GM/30ML UDC 10 GM PO ×3 (12:34→21:05)
[2024-10-16] MEDS: SENNOSIDES 8.6MG/DOCUSATE 50MG TABLET 1 TAB PO (12:35)
[2024-10-16] MEDS: INSULIN GLARGINE 100 UNITS/ML 3ML FLEXPEN 11 UNIT SUBCUT ×2 (12:35→21:04)
--- NOTE | 2024-10-16 13:47 | HMH.PTEV ---
Physical Therapy Evaluation Rehab PT IP Evaluation Start: 10/16/24 10:50 Freq: ONCE Status: Active Protocol: Document 10/16/24 13:45 MARTHA (Rec: 10/16/24 13:47 MARTHA [id number]) Subjective/History History History Pt is an 89 y/o female who presents s/p cephalomedullary nailing left proximal femur . Subjective Subjective Pt and family provided hx. Pt was IND with short amb distances using rollator. Pt required some assistance with ADLs. Pt lives with her brother. New diagnosis of cancer in past 12 No months? Rehab PT IP Eval Objective Appearance Patient Behavior Appropriate,Cooperative Patient Orientation Person,Situation Difficulty following instructions mild Speech Pattern Clear Ambulation Patient Able to Ambulate No Balance Ability to Arise Unable Transfers Bed Transfer Ability Maximum x 2 (75% assist) Rehab PT IP prob,goals,plan Problems Date of Evaluation: 10/16/24 PT IP Problems Bed Mobility,Transfers,Gait, Balance,Self care,Safety Equipment Needs Assistive Devices Rolling / Wheeled Walker Plan PT Intervention Plan Bed Mobility,Transfers,Gait, Balance,Self care,Safety, Therapeutic Exercise Other Intervention Plan 1-2 times PT Plan Frequency Daily Duration LOS Discharge Goals Bed Transfer Ability Moderate x 1 (50% assist) Sit to Stand Chair Transfer Ability Moderate x 2 (50% assist) Discharge Plan PT Discharge Plan Initial physical therapy evaluation performed. Patient presents below baseline at this time in functional mobility, transfers, and strength. Pt not safe to return home at this time d/t current level of functional mobility. PT recommending short-term rehabilitation stay upon d/c from [facility]. Pt would benefit from skilled PT while at [facility] to prevent further functional decline and maximize safety with mobility. Eval Complexity Eval Charge Codes 88499 - Moderate Complexity PHYSICIAN CERTIFICATION: I certify the specified therapy services for Kareen Mallory are required, authorized, and reviewed every 30 days.
--- NOTE | 2024-10-16 13:56 | SW/DCPLANNER ---
Addendum entered by [facility] 10/18/24 10:40: Patient will discharge to [facility] level of care today. Addendum entered by [facility] 10/17/24 13:11: Per Remberto patient is approved for SNF level of care per insurance starting tomorrow 10/18/24. I will update MD and patient/family. Addendum entered by [facility] 10/17/24 11:39: Per Remberto patiño/ Syed Araujo precert will be started today. Addendum entered by [facility] 10/17/24 10:35: Remberto patiño/ Syed Araujo will be at bedside this AM to evaluate patient and speak w/ family. Addendum entered by [facility] 10/16/24 15:33: Tiff Araujo is currently reviewing patient information. Original Note: I spoke w/ this patient and her daughter regarding plans once medically stable for discharge. PT/OT evaluated patient today and recommended SNF level of care. Patient is agreeable to placement and prefers [facility]. I did discuss w/ patient and daughter other facilities in case [facility] can not accept. Per daughter she will discuss this w/ other family members. I will fax information to Tiff Araujo today. Discharge date is unknown at this time.
--- NOTE | 2024-10-16 14:05 | HMH.OTEV ---
OT Inpatient Evaluation Rehab OT IP Evaluation Start: 10/16/24 11:05 Freq: ONCE Status: Active Protocol: Document 10/16/24 14:00 [facility] (Rec: 10/16/24 14:05 [facility] [id number]) Rehab OT IP Assessment Subjective History Pt oriented x 1 on arrival. Pt agreeable to engage in therapy evaluation after MAX verbal prompts for encouragement. Family present . Pt admitted on 10/12/24 due to Left intertrochanteric hip fracture. Pt required a Cephalomedullary nailing left proximal femur on 10/16/24. History and physical report: Ms. Mallory is an 89-year-old female with past medical history of insulin-dependent diabetes, CKD 3, CAD, A-fib, pacemaker in situ, heart failure with preserved ejection fraction, cirrhosis with ascites, who presented after a mechanical fall from standing height at home today. States she did not pass out, hit her head, or lose consciousness. She said she was grabbing her blouse when she tripped and fell backwards . Had onset of left hip pain. Was brought to the ER via EMS due to inability to walk. Received fentanyl and transit prior to presentation to the hospital. Left leg shorter than right leg on presentation . Workup in the ER with stable chronic conditions but found to have left intertrochanteric fracture. Case discussed with orthopedics, recommends admission and holding of anticoagulation prior to surgery. Medicine consulted for admission and preoperative risk stratification. Subjective Pt and family provided hx. Pt was IND with short transfer distances using rollator. Pt was independent with dressing and feeding. She required assistance with bathing. Pt was dependent upon family for completion of all IADLS. Pt lives with her son. Objective Patient Orientation Person Right Upper Extremity Gross ROM Min Limitation <25% Left Upper Extremity Gross ROM Min Limitation <25% Shoulder ROM Limitations Muscle Weakness Elbow ROM Limitations Muscle Weakness Wrist Limitations of Range of Motion Muscle Weakness Bed Mobility bed mobility-scooting,bed mobility - supine/sit Assist Level Maximum x 2 (75% assist) Rehab OT IP prob,goals,plan Problems Date of Evaluation: 10/16/24 OT IP Problems Bed Mobility,Transfers,Balance ,Self care,Safety Rehab Potential Rehab Potential Good Equipment Needs Assistive Devices Rolling / Wheeled Walker Plan OT intervention Plan Bed Mobility,Transfers,Balance ,Self care,Safety,Therapeutic Exercise OT Plan Frequency Daily Duration LOS Discharge Goals Bed Mobility Ability Assistance x1 Sit to Stand Chair Transfer Ability Maximum x 1 (75% assist) Chair Transfer Ability Maximum x 1 (75% assist) Chair Transfer Technique Stand Pivot Chair Transfer Assistive Devices Rolling Walker Lower Body Dressing Ability Moderate Assistance Upper Body Dressing Ability Minimal Assistance Bathing Ability Maximum Assistance Performing Toilet Hygiene Ability Maximum Assistance Overall Commode/Toilet Transfer Ability Moderate Assistance,Maximum Assistance Commode/Toilet Transfer Technique Sit to/from Ambulatory Discharge Plan OT Discharge Plan Pt will continue to be seen for OT services while at [facility]. Pt would benefit most from short term rehab at SNF following hospital stay. Continued skilled therapy is important in order for patient to improve strength, safety, endurance, ADL independence, ad functional transfers to reach PLOF. Eval Complexity Eval Charge Codes 36812 - Moderate Complexity PHYSICIAN CERTIFICATION: I certify the specified therapy services for Kareen Mallory are required, authorized, and reviewed every 30 days.
--- NOTE | 2024-10-16 14:21 | P.PNANES_ITS ---
[facility] Anesthesia Record Part II Anesthesia Record Part II Discharge Time: 11:35 Destination: Medical Surgical Department PACU nurse assessment reviewed?: Yes Patient Condition:: Good Anesthesia Complications:: None Swallowing reflex intact?: Yes Airway Patency: Patent Cyanosis?: No Blood Pressure: 101/56 SaO2: 100 Respiratory Rate: 17 Pulse Rate: 86 Temperature: 99 F Mental Status: Alert & Oriented Pain level:: 0 Nausea and/or vomitting:: None Intake, IV Amount: 0 Hydration: Adequate
--- NOTE | 2024-10-16 14:33 | P.PNANES_ITS ---
[facility] Anesthesia Record Part I Anesthesia Record I Intake, IV Amount: 700 Hydration: Adequate Estimated blood loss (mL): 200 Urine output (mL): 300 Blood Products used (#): none Blood Pressure: 129/83 SaO2: 98 Pulse Rate: 78 Airway Patency: Patent Respiratory Rate: 16 Temperature: 98 F Patient is:: Drowsy and Stable Stable to PACU at:: 14:16
--- NOTE | 2024-10-16 14:48 | EXP.SURG.PN ---
Subjective Narrative: Patient seen, sitting comfrotably in bed. No complaints of pain, spinal still in effect. Exam Data for Last 24 hours Vital signs and Labs for Last 24 Hours: Temp Pulse Resp BP Pulse Ox O2 Del Method O2 Flow Rate 98 F 78 16 129/83 98 Room Air 2 10/16/24 14:35 10/16/24 14:35 10/16/24 14:35 10/16/24 14:35 10/16/24 11:45 10/16/24 11:45 10/16/24 04:00 Laboratory Results - last 24 hr 10/15/24 16:16: POC Glucose 197 H 10/15/24 21:05: POC Glucose 215 H 10/16/24 05:59: Sodium 129 L, Potassium 4.9, Chloride 97 L, Carbon Dioxide 19 L, Anion Gap 17.9 H, BUN 87 H, Creatinine 1.90 H, Estimated Creat Clear 20, Estimated GFR 25 L, Est GFR ( Amer) 30 L, Glucose 146 H D, Calcium 8.9, Total Bilirubin 0.8, AST 56 H, ALT 34, Alkaline Phosphatase 140 H, Total Protein 6.2 L, Albumin 3.4 L, Globulin 2.8, Albumin/Globulin Ratio 1.2 10/16/24 06:05: POC Glucose 171 H 10/16/24 11:49: POC Glucose 158 H I & O for Last 24 hours: Intake & Output 10/13/24 10/14/24 10/15/24 10/16/24 23:59 23:59 23:59 23:59 Intake Total 900 / 1815 3369 / 3969 1050 / 1050 1550 / 1550 Output Total 1475 / 1475 125 / 125 850 / 850 0 / 0 Balance -575 / 340 3244 / 3844 200 / 200 1550 / 1550 Weight 58 kg 61.054 kg 60.736 kg 62.233 kg Detailed Lower Extremity Exam Comments: L hip: Dressing C/D/I. + ecchy. + Edema, thigh SNT. +NVID with +2 DP. Spinal still in effect. Calves SNT. Progress Note: A&P Assessment and plan (1) Intertrochanteric fracture of left hip: Status: Acute Assessment and plan: Patient POD#0 s/p L TFN on 10/16/[address] Rendon. Pain control PRN. Ice to L hip PRN. PT OT: WBAT to LLE with RW. Monitor NV status. Ancef x 24h. FUrther care per medical team appreciated. (2) Closed fracture of left hip: Status: Acute (3) Fall: Status: Acute (4) Cirrhosis: Status: Acute (5) THANH (acute kidney injury): Status: Acute (6) Acute on chronic heart failure with preserved ejection fraction (HFpEF): Status: Acute (7) Frail elderly: Status: Acute (8) Diabetes mellitus type 2 in nonobese: Status: Acute (9) Polypharmacy: Status: Acute (10) Coronary artery disease: Status: Acute (11) Atrial fibrillation: Status: Acute (12) Anemia: Status: Acute (13) Pleural effusion: Status: Acute (14) Abdominal ascites: Status: Acute (15) CKD (chronic kidney disease) stage 3, GFR 30-59 ml/min: Status: Deleted (16) Aneurysm of splenic artery: Status: Acute
[2024-10-16] MEDS: HYDROCODONE/APAP 5/325 MG TABLET 1 TAB PO ×2 (14:50→23:16)
[2024-10-16 15:48] LABS: Microscopic,Cath URINE MICROSCOPIC (MICROSCOPIC)
[2024-10-16 15:57] LABS: Appearance,Urine/Cath CLEAR (Clear); Bilirubin,Cath Negative (Negative); Blood, Urine/Cath Negative (Negative); Color,Urine/Cath YELLOW (Yellow); Glucose,Urine/Cath (UA) 2+ (Negative); Ketones,Urine/Cath Negative (Negative); Leukocyte Esterase,Cath Negative (Negative); Nitrate,Cath Negative (Negative); Protein,Urine/Cath Negative (Negative); Specific Gravity, Urine/Cath 1.015 (1.005-1.030); Urobilinogen,Cath 0.2 EU/dl (0.2)
[2024-10-16 16:33] LABS: RBC,Urine/Cath Occasional # /hpf (0-3)
[2024-10-16 16:34] LABS: Bacteria,Urine/Cath TRACE /lpf
[2024-10-16 18:29] LABS: POC Glucose,Bedside 222 (70-110)
--- NOTE | 2024-10-16 19:13 | PC.NURSE ---
pt went to OR today. Pain is managed with PO medications
[2024-10-16] MEDS: PANTOPRAZOLE 40MG TABLET 40 MG PO (21:05)
[2024-10-16 21:07] LABS: POC Glucose,Bedside 219 (70-110)
--- NOTE | 2024-10-16 21:15 | EXP.ACUTE.PN ---
Subjective *Date: 10/16/24 *Time: 23:22 Interval history: Patient seen before surgery today, appears comfortable. Stable on room air. Finally had small bowel movement this morning. Medical Exam Vital signs and Labs for Last 24 Hours: Vital Signs Temp Pulse Pulse Resp BP BP Pulse Ox 10/16/24 20:00 98.0 F 94 H 19 101/63 L 98 10/16/24 18:30 65 16 96/75 L 99 10/16/24 17:30 95 H 16 98/60 L 99 10/16/24 16:30 105 H 18 92/65 L 98 10/16/24 16:00 80 10/16/24 15:30 115 H 16 117/80 99 10/16/24 14:30 110 H 16 102/57 L 98 10/16/24 14:22 17 10/16/24 14:00 99 H 14 91/57 L 100 10/16/24 13:30 98 H 14 96/53 L 100 10/16/24 13:00 106 H 18 96/63 L 100 10/16/24 12:30 121 H 14 117/51 L 99 10/16/24 12:15 100 H 16 98/57 L 99 10/16/24 12:00 88 18 96/51 L 97 10/16/24 12:00 90 10/16/24 11:45 99 F 79 16 96/56 L 98 10/16/24 11:35 86 17 101/56 L 100 10/16/24 11:25 85 17 91/47 L 99 10/16/24 11:15 97.2 F L 80 16 109/62 L 10/16/24 11:15 90 17 99/53 L 99 10/16/24 11:05 97.8 F 80 16 109/62 L 99 10/16/24 08:00 100 H 10/16/24 08:00 98.1 F 86 16 106/46 L 98 10/16/24 06:53 10/16/24 05:00 10/16/24 04:00 98.1 F 104 H 18 100/49 L 95 10/16/24 04:00 100 H 10/16/24 03:00 10/16/24 01:00 10/16/24 00:00 110 H 10/15/24 23:00 O2 Del Method O2 Flow Rate 10/16/24 20:00 Nasal Cannula 10/16/24 18:30 Room Air 10/16/24 17:30 Room Air 10/16/24 16:30 Room Air 10/16/24 16:00 10/16/24 15:30 Room Air 10/16/24 14:30 Room Air 10/16/24 14:22 10/16/24 14:00 Room Air 10/16/24 13:30 Room Air 10/16/24 13:00 Room Air 10/16/24 12:30 Room Air 10/16/24 12:15 Room Air 10/16/24 12:00 Room Air 10/16/24 12:00 10/16/24 11:45 Room Air 10/16/24 11:35 Room Air 10/16/24 11:25 Room Air 10/16/24 11:15 10/16/24 11:15 Room Air 10/16/24 11:05 Room Air 10/16/24 08:00 10/16/24 08:00 Room Air 10/16/24 06:53 Room Air 10/16/24 05:00 Room Air 10/16/24 04:00 Nasal Cannula 2 10/16/24 04:00 10/16/24 03:00 Room Air 10/16/24 01:00 Room Air 10/16/24 00:00 10/15/24 23:00 Room Air Intake and Output 10/16/24 10/16/24 10/16/24 07:59 15:59 23:59 Intake Total 970 / 1210 240 / 1210 Output Total 0 / 0 Balance 0 / 1210 970 / 1210 240 / 1210 Intake: Intake, Oral Amount 120 / 360 240 / 360 Intake, Total IV Amount 850 / 850 Output: Output, Urine Amount 0 / 0 Other: Number of Unmeasured Voids 1 Weight 62.233 kg Patient Weight 10/16/24 23:59 Weight 62.233 kg Laboratory Results - last 24 hr 10/15/24 21:05: POC Glucose 215 H 10/16/24 05:59: Sodium 129 L, Potassium 4.9, Chloride 97 L, Carbon Dioxide 19 L, Anion Gap 17.9 H, BUN 87 H, Creatinine 1.90 H, Estimated Creat Clear 20, Estimated GFR 25 L, Est GFR ( Amer) 30 L, Glucose 146 H D, Calcium 8.9, Total Bilirubin 0.8, AST 56 H, ALT 34, Alkaline Phosphatase 140 H, Total Protein 6.2 L, Albumin 3.4 L, Globulin 2.8, Albumin/Globulin Ratio 1.2 10/16/24 06:05: POC Glucose 171 H 10/16/24 09:40: Urine Color Yellow, Urine Appearance Clear, Urine pH 6.0, Ur Specific [place] 1.015, Urine Protein Negative, Urine Glucose (UA) 2+, Urine Ketones Negative, Urine Blood Negative, Urine Nitrate Negative, Urine Bilirubin Negative, Urine Urobilinogen 0.2, Ur Leukocyte Esterase Negative, Urine RBC Occasional, Urine WBC 3-5, Ur Squamous Epith Cells 3-5, Urine Bacteria Trace 10/16/24 11:49: POC Glucose 158 H 10/16/24 18:20: POC Glucose 222 H 10/16/24 20:58: POC Glucose 219 H I & O for Labs for Last 24 Hours: Intake & Output 10/13/24 10/14/24 10/15/24 10/16/24 23:59 23:59 23:59 23:59 Intake Total 900 / 1815 3369 / 3969 1050 / 1050 1210 / 1210 Output Total 1475 / 1475 125 / 125 850 / 850 0 / 0 Balance -575 / 340 3244 / 3844 200 / 200 1210 / 1210 Weight 58 kg 61.054 kg 60.736 kg 62.233 kg Constitutional: Present no acute distress, thin, chronically ill appearing and cooperative Head: Present atraumatic and normocephalic ENT: Present normal exam Neck: Present normal inspection Respiratory: Present normal respiratory effort; Absent rhonchi, wheezes or crackles Cardiac: Present Reg Rate and Rhythm GI: Present soft and normal bowel sounds; Absent distention or tenderness Extremities: Absent normal inspection, full ROM or edema Comment:: Left leg shorter and externally rotated compared to right; bruising over left hip, tender to palpation Skin: Present intact; Absent erythema Neuro: Present Grossly Intact, alert, awake and moves all extremities Comment:: Oriented to self and place Assessment and Plan *Assessment and plan (1) Intertrochanteric fracture of left hip: Status: Acute Qualifiers: Encounter type: initial encounter Fracture alignment: displaced Fracture type: closed Qualified Code(s): S72.142A - Displaced intertrochanteric fracture of left femur, initial encounter for closed fracture Category: Medical Code(s): S72.142A - Displaced intertrochanteric fracture of left femur, initial encounter for closed fracture (2) Closed fracture of left hip: Status: Acute Category: Medical Code(s): S72.002A - Fracture of unspecified part of neck of left femur, initial encounter for closed fracture (3) Fall: Status: Acute Category: Medical Code(s): W19.XXXA - Unspecified fall, initial encounter (4) Cirrhosis: Status: Acute Qualifiers: Ascites presence: with ascites Hepatic cirrhosis type: unspecified hepatic cirrhosis Qualified Code(s): K74.60 - Unspecified cirrhosis of liver; R18.8 - Other ascites Category: Medical Code(s): K74.60 - Unspecified cirrhosis of liver (5) THANH (acute kidney injury): Status: Acute Category: Medical Code(s): N17.9 - Acute kidney failure, unspecified (6) Acute on chronic heart failure with preserved ejection fraction (HFpEF): Status: Acute Category: Medical Code(s): I50.33 - Acute on chronic diastolic (congestive) heart failure (7) Frail elderly: Status: Acute Category: Medical Code(s): R54 - Age-related physical debility (8) Diabetes mellitus type 2 in nonobese: Status: Acute Category: Medical Code(s): E11.9 - Type 2 diabetes mellitus without complications (9) Polypharmacy: Status: Acute Category: Medical Code(s): Z79.899 - Other terminal makeup operator (current) drug therapy (10) Coronary artery disease: Status: Acute Qualifiers: Associated angina: with other forms of angina Coronary Disease-Associated Artery/Lesion type: [place] artery [place] vs. transplanted heart: [place] heart Qualified Code(s): I25.118 - Atherosclerotic heart disease of [place] coronary artery with other forms of angina pectoris Category: Medical Code(s): I25.10 - Atherosclerotic heart disease of [place] coronary artery without angina pectoris (11) Atrial fibrillation: Status: Acute Qualifiers: Atrial fibrillation type: unspecified chronic Qualified Code(s): I48.20 - Chronic atrial fibrillation, unspecified Category: Medical Code(s): I48.91 - Unspecified atrial fibrillation (12) Anemia: Status: Acute Qualifiers: Anemia type: unspecified type Qualified Code(s): D64.9 - Anemia, unspecified Category: Medical Code(s): D64.9 - Anemia, unspecified (13) Pleural effusion: Status: Acute Category: Medical Code(s): J90 - Pleural effusion, not elsewhere classified (14) Abdominal ascites: Status: Acute Qualifiers: Ascites type: other type Qualified Code(s): R18.8 - Other ascites Category: Medical Code(s): R18.8 - Other ascites (15) CKD (chronic kidney disease) stage 3, GFR 30-59 ml/min: Status: Deleted Qualifiers: Chronic kidney disease stage 3 subtype: stage 3a (GFR 45-59) Qualified Code(s): N18.31 - Chronic kidney disease, stage 3a Category: Medical Code(s): N18.30 - Chronic kidney disease, stage 3 unspecified (16) Aneurysm of splenic artery: Status: Acute Category: Medical Code(s): I72.8 - Aneurysm of other specified arteries (17) Severe protein-calorie malnutrition: Status: Acute Category: Medical Code(s): E43 - Unspecified severe protein-calorie malnutrition Plan 89-year-old female with PMHx of IDDM, CKD, CAD, Afib, pacemaker in situ, heart failure preserved ejection fraction, recent diagnosis of cirrhosis with ascites and anasarca 10 months ago. Presented to the ER after a fall. Found to have left hip fracture. Discussed case with ER physician, request admission for medical optimization and surgery. Orthopedics consulted. I agreed to admit for further care. Holding anticoagulation. Will need to wait 48 to 72 hours prior to surgery. Requiring inpatient management. Has had some improvement in blood pressure since initiating midodrine. Labs relatively stable today. Pain stable. Going for surgery today. Problems addressed as follows: Left intertrochanteric fracture of femur Hip pain Fall - Orthopedics consulted, after discussion today, decision made to proceed with elective major surgery With cephalomedullary nailing of left proximal femur. Patient has multiple risk factors including her heart failure, cirrhosis, CKD 4 -Orthopedics recommends weightbearing as tolerated. - Patient is elevated risk for intermediate risk procedure (hip surgery). Without surgery, patient will be in constant pain and have no chance of meaningful recovery or ambulation, she would surely be a hospice patient. Family wants to take risk of surgery and give patient a chance for stable hip and ambulation again. Given her comorbidities, would benefit from epidural rather than general sedation due to lower risk. Will obtain preoperative EKG for baseline. -PT and OT consult with recommendation for SNF. Case management to assist with placement. -Continue oxycodone 5 mg every 4 hours. Monitor for toxicity. Continue ice pack. -Zofran 8 mg every 6 hours as needed for nausea secondary to pain and pain meds along with chronic nausea HFpEF A-fib Hyperlipidemia CAD -Holding Plavix and Xarelto. - Patient does not appear to be in exacerbation at this time. Last echo performed in January 2024. Shows normal LV function. Severe RV dilation with severe TR. ECHO showed grade II diastolic dysfunction with preserved EF -Caution with fluids. Tolerating midodrine 5 mg 3 times a day with improvement in blood pressure. -Continue metoprolol tartrate 50 mg twice daily, rate better controlled -Discontinue bisoprolol, Jardiance, isosorbide. Will hold on diuresis and consider again tomorrow Acute on chronic anemia. - transfusion threshold hemoglobin less than 7. Typed and crossed for 2 units, repeat CBC in the morning Cirrhosis of the liver Aneurism of the splenic: Recurring ascites Most recent paracentesis performed 6wks ago on 09/06. Removed approximately 3-1/2 L of fluid. BUN 87, creatinine 1.9. Potassium 4.9. Sodium 129. Repeat CBC, CMP, magnesium ordered for the morning. Patient has SUMMERS score of F2-bridging fibrosis; Child Krueger B Constipation: On bowel regimen Docusate BID, lactulose 4 times a day. Enema administered yesterday, suppository today. Small bowel movement this morning. IDDM: accucheck before meal Glucose 146 this morning. home lantus 11 units BID last A1c 7.9, 3 months ago. Goal A1c less than 8. Repeat A1c 9.7 this admission. sliding scale insulin with meals and at bedtime DNR/DNI Holding Xarelto and Plavix. Cardiac diet
[2024-10-17] VITALS (7 sets, daily range): BP systolic 93–102; BP diastolic 45–66; PULSE 70–111; RESP 16–20; TEMP 35.8–36.7; O2SAT 91–99; BMI 27.1
[2024-10-17 06:02] LABS: POC Glucose,Bedside 141 (70-110)
[2024-10-17 06:16] LABS: Basophils % 0.2 % (0.1-2.0); Eosinophils # 0.1 K/mm3 (0.0-0.4); Eosinophils % 0.5 % (0.1-12.0); Hematocrit 23.8 % (37.0-47.0); Hemoglobin 7.7 g/dL (12.2-16.2); Lymphocytes # 0.9 K/mm3 (0.7-4.5); Mean Corpuscular HGB Conc 32.4 g/dL (31.8-35.4); Mean Corpuscular Hemoglobin 25.6 pg (27.0-31.2); Mean Corpuscular Volume 79.1 fl (81-99); Mean Platelet Volume 9.5 fl (7.4-10.4); Monocytes # 1.3 K/mm3 (0.1-1.0); Monocytes % 12.3 % (1.7-9.3); Neutrophils # 8.1 K/mm3 (1.8-7.8); Neutrophils % 77.4 % (37.0-80.0); Platelet Count 184 K/mm3 (142-424); Red Blood Count 3.01 M/mm3 (4.20-5.40); White Blood Count 10.5 K/mm3 (4.8-10.8)
[2024-10-17] MEDS: LEVOTHYROXINE 50MCG (0.05MG) TAB 50 MCG PO (06:16)
[2024-10-17] MEDS: HYDROCODONE/APAP 5/325 MG TABLET 1 TAB PO ×2 (06:16→13:14)
[2024-10-17 06:30] LABS: Alanine Aminotransferase 30 U/L (12-78); Albumin Level 3.2 g/dl (3.5-5.0); Albumin/Globulin Ratio 1.1 (1.1-1.8); Alkaline Phosphatase 140 U/L (38-126); Anion Gap 16.8 mEq/L (5-15); Aspartate Amino Transferase 54 U/L (14-36); Bilirubin,Total 0.9 mg/dl (0.2-1.3); Calcium 9.1 mg/dl (8.4-10.2); Carbon Dioxide 20 mmol/L (22.0-30.0); Chloride 99 mmol/L (98-107); Creatinine Clearance Estimated 22 mL/min (50-200); Estimated Glomerular Filt Rate 27 ml/min (>60); GFR (African American) 32 ML/MIN (>60); Globulin 2.8 g/dL (1.3-3.2); Glucose 110 mg/dl (74-100); Magnesium 2.6 mg/dl (1.6-2.3); Potassium 4.8 mmoL/L (3.5-5.1); Sodium 131 mmol/L (136-145)
[2024-10-17 07:50] LABS: Blood Urea Nitrogen 92 mg/dl (7-17)
[2024-10-17] MEDS: SERTRALINE 100MG TABLET 100 MG PO (08:49)
[2024-10-17] MEDS: INSULIN GLARGINE 100 UNITS/ML 3ML FLEXPEN 11 UNIT SUBCUT ×2 (08:49→21:50)
[2024-10-17] MEDS: SENNOSIDES 8.6MG/DOCUSATE 50MG TABLET 1 TAB PO (08:49)
[2024-10-17] MEDS: OXYCODONE 5MG IMMEDIATE RELEASE TABLET 5 MG PO ×3 (08:49→22:02)
[2024-10-17] MEDS: METOPROLOL TARTRATE 50MG TABLET 50 MG PO ×2 (08:49→21:00)
[2024-10-17] MEDS: MIDODRINE HCL 5 MG TABLET PO ×3 (08:49→21:00)
[2024-10-17] MEDS: LACTULOSE 20GM/30ML UDC 10 GM PO ×4 (08:50→21:00)
[2024-10-17] MEDS: ONDANSETRON 4MG/2ML VIAL 8 MG IV ×3 (09:21→21:51)
[2024-10-17] MEDS: humaLOG 100 UNITS/ML 10ML VIAL (SSI) SUBCUT ×3 (11:48→21:49)
[2024-10-17 11:51] LABS: POC Glucose,Bedside 192 (70-110)
--- NOTE | 2024-10-17 12:50 | EXP.SURG.PN ---
Subjective Narrative: Patient seen, sitting comfortably in bed. No complaints of pain while seated, but states it hurts too much to walk on it with PT. Exam Data for Last 24 hours Vital signs and Labs for Last 24 Hours: Temp Pulse Resp BP Pulse Ox O2 Del Method O2 Flow Rate 98.1 F 76 20 101/51 L 98 Room Air 2 10/17/24 12:00 10/17/24 12:00 10/17/24 12:00 10/17/24 12:00 10/17/24 12:00 10/17/24 12:00 10/16/24 04:00 Laboratory Results - last 24 hr 10/14/24 08:25: Crossmatch (AHG) See Detail 10/16/24 09:40: Urine Color Yellow, Urine Appearance Clear, Urine pH 6.0, Ur Specific [place] 1.015, Urine Protein Negative, Urine Glucose (UA) 2+, Urine Ketones Negative, Urine Blood Negative, Urine Nitrate Negative, Urine Bilirubin Negative, Urine Urobilinogen 0.2, Ur Leukocyte Esterase Negative, Urine RBC Occasional, Urine WBC 3-5, Ur Squamous Epith Cells 3-5, Urine Bacteria Trace 10/16/24 18:20: POC Glucose 222 H 10/16/24 20:58: POC Glucose 219 H 10/17/24 05:55: POC Glucose 141 H 10/17/24 06:06: WBC 10.5, RBC 3.01 L, Hgb 7.7 L, Hct 23.8 L, MCV 79.1 L, MCH 25.6 L, MCHC 32.4, RDW 17.0, Plt Count 184, MPV 9.5, Neut % (Auto) 77.4, Lymph % (Auto) 9.0 L, [place] % (Auto) 12.3 H, Eos % (Auto) 0.5, Baso % (Auto) 0.2, Neut # (Auto) 8.1 H, Lymph # (Auto) 0.9, [place] # (Auto) 1.3 H, Eos # (Auto) 0.1, Baso # (Auto) 0.0, Sodium 131 L, Potassium 4.8, Chloride 99, Carbon Dioxide 20 L, Anion Gap 16.8 H, BUN 92 H, Creatinine 1.80 H, Estimated Creat Clear 22, Estimated GFR 27 L, Est GFR ( Amer) 32 L, Glucose 110 H, Calcium 9.1, Magnesium 2.6 H D, Total Bilirubin 0.9, AST 54 H, ALT 30, Alkaline Phosphatase 140 H, Total Protein 6.0 L, Albumin 3.2 L, Globulin 2.8, Albumin/Globulin Ratio 1.1 10/17/24 11:38: POC Glucose 192 H I & O for Last 24 hours: Intake & Output 10/14/24 10/15/24 10/16/24 10/17/24 23:59 23:59 23:59 23:59 Intake Total 3369 / 3969 1050 / 1050 1210 / 1210 240 / 240 Output Total 125 / 125 850 / 850 800 / 800 Balance 3244 / 3844 200 / 200 410 / 410 240 / 240 Weight 61.054 kg 60.736 kg 62.233 kg 62.641 kg Detailed Lower Extremity Exam Comments: L hip: Dressing C/D/I. + ecchy. + Edema, thigh SNT. +NVID with +2 DP. SILT 1st DWS/PA. +EHL/FHL/GS/TA. Calves SNT. Progress Note: A&P Assessment and plan (1) Intertrochanteric fracture of left hip: Status: Acute Assessment and plan: Patient POD#1 s/p L TFN on 10/16/[address] Rendon. Pain control PRN. Ice to L hip PRN. PT OT: WBAT to LLE with RW. Monitor NV status. FUrther care per medical team appreciated. (2) Closed fracture of left hip: Status: Acute (3) Fall: Status: Acute (4) Cirrhosis: Status: Acute (5) THANH (acute kidney injury): Status: Acute (6) Acute on chronic heart failure with preserved ejection fraction (HFpEF): Status: Acute (7) Frail elderly: Status: Acute (8) Diabetes mellitus type 2 in nonobese: Status: Acute (9) Polypharmacy: Status: Acute (10) Coronary artery disease: Status: Acute (11) Atrial fibrillation: Status: Acute (12) Anemia: Status: Acute (13) Pleural effusion: Status: Acute (14) Abdominal ascites: Status: Acute (15) CKD (chronic kidney disease) stage 3, GFR 30-59 ml/min: Status: Deleted (16) Aneurysm of splenic artery: Status: Acute (17) Severe protein-calorie malnutrition: Status: Acute
--- NOTE | 2024-10-17 13:26 | EXP.ACUTE.PN ---
Subjective *Date: 10/17/24 *Time: 17:37 Interval history: Patient doing well this morning. Appears more comfortable than yesterday. Quite fatigued due to pain medications. Will discontinue muscle relaxer, no longer having spasms since hip has been fixed. Tolerating p.o. intake. No bowel movement today. Stable on room air. Complains of some mild nausea but no emesis. Medical Exam Vital signs and Labs for Last 24 Hours: Vital Signs Temp Pulse Pulse Resp BP Pulse Ox O2 Del Method 10/17/24 12:00 98.1 F 76 20 101/51 L 98 Room Air 10/17/24 08:00 90 10/17/24 08:00 97.9 F 87 18 93/53 L 98 Room Air 10/17/24 06:34 Room Air 10/17/24 05:00 Room Air 10/17/24 04:00 90 10/17/24 03:46 98.1 F 100 H 19 96/66 L 95 Room Air 10/17/24 03:00 Room Air 10/17/24 01:00 Room Air 10/17/24 00:00 90 10/17/24 00:00 98.1 F 111 H 17 102/45 L 91 L Room Air 10/16/24 23:00 Room Air 10/16/24 21:05 Room Air 10/16/24 21:00 Room Air 10/16/24 20:00 90 10/16/24 20:00 98.0 F 94 H 19 101/63 L 98 Nasal Cannula 10/16/24 18:30 65 16 96/75 L 99 Room Air 10/16/24 17:30 95 H 16 98/60 L 99 Room Air 10/16/24 16:30 105 H 18 92/65 L 98 Room Air 10/16/24 16:00 80 10/16/24 15:30 115 H 16 117/80 99 Room Air 10/16/24 14:30 110 H 16 102/57 L 98 Room Air 10/16/24 14:22 17 10/16/24 14:00 99 H 14 91/57 L 100 Room Air 10/16/24 13:30 98 H 14 96/53 L 100 Room Air Intake and Output 10/16/24 10/17/24 10/17/24 23:59 07:59 15:59 Intake Total 240 / 1210 240 / 240 Output Total 800 / 800 Balance -560 / 410 240 / 240 Intake: Intake, Oral Amount 240 / 360 240 / 240 Output: Output, Urine Amount 800 / 800 Other: Number of Unmeasured Voids 0 Number of Bowel Movements 2 Weight 62.641 kg Patient Weight 10/17/24 23:59 Weight 62.641 kg Laboratory Results - last 24 hr 10/14/24 08:25: Crossmatch (AHG) See Detail 10/16/24 09:40: Urine Color Yellow, Urine Appearance Clear, Urine pH 6.0, Ur Specific [place] 1.015, Urine Protein Negative, Urine Glucose (UA) 2+, Urine Ketones Negative, Urine Blood Negative, Urine Nitrate Negative, Urine Bilirubin Negative, Urine Urobilinogen 0.2, Ur Leukocyte Esterase Negative, Urine RBC Occasional, Urine WBC 3-5, Ur Squamous Epith Cells 3-5, Urine Bacteria Trace 10/16/24 18:20: POC Glucose 222 H 10/16/24 20:58: POC Glucose 219 H 10/17/24 05:55: POC Glucose 141 H 10/17/24 06:06: WBC 10.5, RBC 3.01 L, Hgb 7.7 L, Hct 23.8 L, MCV 79.1 L, MCH 25.6 L, MCHC 32.4, RDW 17.0, Plt Count 184, MPV 9.5, Neut % (Auto) 77.4, Lymph % (Auto) 9.0 L, [place] % (Auto) 12.3 H, Eos % (Auto) 0.5, Baso % (Auto) 0.2, Neut # (Auto) 8.1 H, Lymph # (Auto) 0.9, [place] # (Auto) 1.3 H, Eos # (Auto) 0.1, Baso # (Auto) 0.0, Sodium 131 L, Potassium 4.8, Chloride 99, Carbon Dioxide 20 L, Anion Gap 16.8 H, BUN 92 H, Creatinine 1.80 H, Estimated Creat Clear 22, Estimated GFR 27 L, Est GFR ( Amer) 32 L, Glucose 110 H, Calcium 9.1, Magnesium 2.6 H D, Total Bilirubin 0.9, AST 54 H, ALT 30, Alkaline Phosphatase 140 H, Total Protein 6.0 L, Albumin 3.2 L, Globulin 2.8, Albumin/Globulin Ratio 1.1 10/17/24 11:38: POC Glucose 192 H I & O for Labs for Last 24 Hours: Intake & Output 10/14/24 10/15/24 10/16/24 10/17/24 23:59 23:59 23:59 23:59 Intake Total 3369 / 3969 1050 / 1050 1210 / 1210 240 / 240 Output Total 125 / 125 850 / 850 800 / 800 Balance 3244 / 3844 200 / 200 410 / 410 240 / 240 Weight 61.054 kg 60.736 kg 62.233 kg 62.641 kg Constitutional: Present no acute distress, thin, chronically ill appearing and cooperative Head: Present atraumatic and normocephalic ENT: Present normal exam Neck: Present normal inspection Respiratory: Present normal respiratory effort; Absent rhonchi, wheezes or crackles Cardiac: Present Reg Rate and Rhythm GI: Present soft and normal bowel sounds; Absent distention or tenderness Extremities: Present normal inspection; Absent full ROM or edema Comment:: Legs equal length, bandage clean dry and intact over left hip. Skin: Present intact; Absent erythema Neuro: Present Grossly Intact, alert, awake and moves all extremities Comment:: Oriented to self and place Assessment and Plan *Assessment and plan (1) Intertrochanteric fracture of left hip: Status: Acute Qualifiers: Encounter type: initial encounter Fracture type: closed Fracture alignment: displaced Qualified Code(s): S72.142A - Displaced intertrochanteric fracture of left femur, initial encounter for closed fracture Category: Medical Code(s): S72.142A - Displaced intertrochanteric fracture of left femur, initial encounter for closed fracture (2) Closed fracture of left hip: Status: Acute Category: Medical Code(s): S72.002A - Fracture of unspecified part of neck of left femur, initial encounter for closed fracture (3) Fall: Status: Acute Category: Medical Code(s): W19.XXXA - Unspecified fall, initial encounter (4) Cirrhosis: Status: Acute Qualifiers: Hepatic cirrhosis type: unspecified hepatic cirrhosis Ascites presence: with ascites Qualified Code(s): K74.60 - Unspecified cirrhosis of liver; R18.8 - Other ascites Category: Medical Code(s): K74.60 - Unspecified cirrhosis of liver (5) THANH (acute kidney injury): Status: Acute Category: Medical Code(s): N17.9 - Acute kidney failure, unspecified (6) Acute on chronic heart failure with preserved ejection fraction (HFpEF): Status: Acute Category: Medical Code(s): I50.33 - Acute on chronic diastolic (congestive) heart failure (7) Frail elderly: Status: Acute Category: Medical Code(s): R54 - Age-related physical debility (8) Diabetes mellitus type 2 in nonobese: Status: Acute Category: Medical Code(s): E11.9 - Type 2 diabetes mellitus without complications (9) Polypharmacy: Status: Acute Category: Medical Code(s): Z79.899 - Other long winder tender (current) drug therapy (10) Coronary artery disease: Status: Acute Qualifiers: Coronary Disease-Associated Artery/Lesion type: [place] artery [place] vs. transplanted heart: [place] heart Associated angina: with other forms of angina Qualified Code(s): I25.118 - Atherosclerotic heart disease of [place] coronary artery with other forms of angina pectoris Category: Medical Code(s): I25.10 - Atherosclerotic heart disease of [place] coronary artery without angina pectoris (11) Atrial fibrillation: Status: Acute Qualifiers: Atrial fibrillation type: unspecified chronic Qualified Code(s): I48.20 - Chronic atrial fibrillation, unspecified Category: Medical Code(s): I48.91 - Unspecified atrial fibrillation (12) Anemia: Status: Acute Qualifiers: Anemia type: unspecified type Qualified Code(s): D64.9 - Anemia, unspecified Category: Medical Code(s): D64.9 - Anemia, unspecified (13) Pleural effusion: Status: Acute Category: Medical Code(s): J90 - Pleural effusion, not elsewhere classified (14) Abdominal ascites: Status: Acute Qualifiers: Ascites type: other type Qualified Code(s): R18.8 - Other ascites Category: Medical Code(s): R18.8 - Other ascites (15) CKD (chronic kidney disease) stage 3, GFR 30-59 ml/min: Status: Deleted Qualifiers: Chronic kidney disease stage 3 subtype: stage 3a (GFR 45-59) Qualified Code(s): N18.31 - Chronic kidney disease, stage 3a Category: Medical Code(s): N18.30 - Chronic kidney disease, stage 3 unspecified (16) Aneurysm of splenic artery: Status: Acute Category: Medical Code(s): I72.8 - Aneurysm of other specified arteries (17) Severe protein-calorie malnutrition: Status: Acute Category: Medical Code(s): E43 - Unspecified severe protein-calorie malnutrition Plan 89-year-old female with PMHx of IDDM, CKD, CAD, Afib, pacemaker in situ, heart failure preserved ejection fraction, recent diagnosis of cirrhosis with ascites and anasarca 10 months ago. Presented to the ER after a fall. Found to have left hip fracture. Discussed case with ER physician, request admission for medical optimization and surgery. Orthopedics consulted. I agreed to admit for further care. Taken for surgery yesterday. Tolerated well. Therapy evaluated, needs placement. Awaiting approval for rehab. Problems addressed as follows: Left intertrochanteric fracture of femur Hip pain Fall - Orthopedics consulted, patient tolerated procedure well. Taken for cephalomedullary nailing of left proximal femur yesterday, tolerated well. Okay to resume Xarelto and Plavix. -Orthopedics recommends weightbearing as tolerated. -PT and OT consult with recommendation for SNF. Accepted to [facility] for the morning. ase management to assist with placement. -Continue oxycodone 5 mg every 4 hours. Discontinue methocarbamol and Dilaudid. Continue ice pack. -Zofran 8 mg every 6 hours as needed for nausea secondary to pain and pain meds along with chronic nausea HFpEF A-fib Hyperlipidemia CAD -Okay to resume Plavix in the morning and Xarelto tonight. - Patient does not appear to be in exacerbation at this time. Last echo performed in January 2024. Shows normal LV function. Severe RV dilation with severe TR. ECHO showed grade II diastolic dysfunction with preserved EF -Caution with fluids. Tolerating midodrine 5 mg 3 times a day with improvement in blood pressure. -Continue metoprolol tartrate 50 mg twice daily, rate better controlled -Discontinued bisoprolol, Jardiance, isosorbide. Will hold on diuresis and consider again tomorrow Acute on chronic anemia. - transfusion threshold hemoglobin less than 7. Typed and crossed for 2 units, repeat CBC in the morning. Hemoglobin stable at 7.7 today, white count 10.5. Cirrhosis of the liver Aneurism of the splenic: Recurring ascites Most recent paracentesis performed 6wks ago on 09/06. Removed approximately 3-1/2 L of fluid. BUN 92, creatinine 1.8. Repeat CBC, CMP, magnesium ordered for the morning. Patient has SUMMERS score of F2-bridging fibrosis; Child Krueger B Constipation: On bowel regimen Docusate BID, lactulose 4 times a day. Small bowel movement yesterday. Will get patient up to bedside commode IDDM: accucheck before meal Glucose 110 this morning. home lantus 11 units BID last A1c 7.9, 3 months ago. Goal A1c less than 8. Repeat A1c 9.7 this admission. sliding scale insulin with meals and at bedtime DNR/DNI Resume Xarelto Cardiac diet
[2024-10-17 16:29] LABS: POC Glucose,Bedside 248 (70-110)
--- NOTE | 2024-10-17 17:27 | PC.NURSE ---
Patient's pain continues to be managed with po pain medication, arizmendi catheter removed this AM and patient able to void afterwards.
[2024-10-17] MEDS: RIVAROXABAN 15MG TABLET 15 MG PO (21:00)
[2024-10-17] MEDS: PANTOPRAZOLE 40MG TABLET 40 MG PO (21:00)
[2024-10-17 23:14] LABS: POC Glucose,Bedside 231 (70-110)
[2024-10-18] VITALS (17 sets, daily range): BP systolic 90–112; BP diastolic 50–72; PULSE 70–95; RESP 15–18; TEMP 36.2–37; O2SAT 95–100; BMI 26.9
--- NOTE | 2024-10-18 03:59 | PC.NURSE ---
Patient is alert and oriented. Patient was noticed to be quite fatigued and soft-spoken this shift. She was observed to have eyes closed, respirations even and unlabored on room air, and no apparent distress for the majority of the night. Her daughter has remained at the bedside this shift. During the beginning of the shift, the patient complained of feeling nauseous after receiving her scheduled medications. Zofran was given per DEC and relief was reported. Patient was also given oxycodone once per DEC thus far for severe, generalized pain. Upon palpation of her abdomen, it was firm but non-tender. Patient's skin has been slightly cool to the touch overall; warm blankets were supplied. Auscultation of her bowels were within normal findings, but patient has not had a bowel movement in days. Diminished lungs sounds and an irregular heart rate was heard during auscultation as well. Patient has been running afib on telemetry. A purewick has remained in place this shift; urine was emptied and documented accordingly. Urine appearance dark yellow and clear. Patient had a little bit of swelling in her bilateral lower extremities; both legs have remained elevated on pillows this shift. Patient has refused to be turned in bed; she stated that she just wants to rest and is comfortable in her current position (supine). Nystagmus of the eyes noted. Patient has remained in the bed this shift per weakness. ACHS glucose fingersticks performed. At this time, the patient is resting in bed without any further complaints. Call light within reach.
[2024-10-18] MEDS: OXYCODONE 5MG IMMEDIATE RELEASE TABLET 5 MG PO ×3 (05:25→19:56)
[2024-10-18 05:57] LABS: POC Glucose,Bedside 187 (70-110)
--- NOTE | 2024-10-18 06:41 | PC.NURSE ---
Patient had a large bowel movement this morning.
[2024-10-18] MEDS: LEVOTHYROXINE 50MCG (0.05MG) TAB 50 MCG PO (06:43)
[2024-10-18] MEDS: humaLOG 100 UNITS/ML 10ML VIAL (SSI) SUBCUT ×3 (06:43→16:21)
[2024-10-18] MEDS: ONDANSETRON 4MG/2ML VIAL 8 MG IV ×2 (07:05→14:19)
[2024-10-18 07:32] LABS: Basophils % 0.2 % (0.1-2.0); Eosinophils # 0.2 K/mm3 (0.0-0.4); Eosinophils % 1.4 % (0.1-12.0); Hematocrit 26.3 % (37.0-47.0); Mean Corpuscular HGB Conc 30.4 g/dL (31.8-35.4); Mean Corpuscular Hemoglobin 24.6 pg (27.0-31.2); Mean Corpuscular Volume 80.9 fl (81-99); Mean Platelet Volume 9.9 fl (7.4-10.4); Monocytes # 1.3 K/mm3 (0.1-1.0); Monocytes % 10.8 % (1.7-9.3); Neutrophils # 9.4 K/mm3 (1.8-7.8); Neutrophils % 78.7 % (37.0-80.0); Platelet Count 201 K/mm3 (142-424); Red Blood Count 3.25 M/mm3 (4.20-5.40); Red Cell Distribution Width 17.2 % (11.5-17.5); White Blood Count 11.9 K/mm3 (4.8-10.8)
[2024-10-18 07:51] LABS: Alanine Aminotransferase 32 U/L (12-78); Albumin Level 3.6 g/dl (3.5-5.0); Albumin/Globulin Ratio 1.3 (1.1-1.8); Alkaline Phosphatase 163 U/L (38-126); Anion Gap 17.2 mEq/L (5-15); Aspartate Amino Transferase 59 U/L (14-36); Bilirubin,Total 0.9 mg/dl (0.2-1.3); Calcium 9.2 mg/dl (8.4-10.2); Carbon Dioxide 19 mmol/L (22.0-30.0); Chloride 96 mmol/L (98-107); Creatinine Clearance Estimated 22 mL/min (50-200); Estimated Glomerular Filt Rate 27 ml/min (>60); GFR (African American) 32 ML/MIN (>60); Globulin 2.7 g/dL (1.3-3.2); Glucose 168 mg/dl (74-100); Potassium 5.2 mmoL/L (3.5-5.1); Sodium 127 mmol/L (136-145); Total Protein,Serum 6.3 g/dl (6.3-8.2)
[2024-10-18 08:03] LABS: Blood Urea Nitrogen 91 mg/dl (7-17)
[2024-10-18 08:05] LABS: Magnesium 2.5 mg/dl (1.6-2.3)
[2024-10-18] MEDS: HYDROCODONE/APAP 5/325 MG TABLET 1 TAB PO (09:52)
[2024-10-18] MEDS: MIDODRINE HCL 5 MG TABLET PO ×2 (09:53→12:56)
[2024-10-18] MEDS: METOPROLOL TARTRATE 50MG TABLET 50 MG PO (09:53)
[2024-10-18] MEDS: CLOPIDOGREL 75MG TAB 75 MG PO (09:53)
[2024-10-18] MEDS: SERTRALINE 100MG TABLET 100 MG PO (09:54)
[2024-10-18] MEDS: LACTULOSE 20GM/30ML UDC 10 GM PO ×2 (09:54→12:56)
[2024-10-18] MEDS: SENNOSIDES 8.6MG/DOCUSATE 50MG TABLET 1 TAB PO (09:54)
[2024-10-18] MEDS: LIDOCAINE 5% TRANSDERMAL PATCH 1 EACH TP (09:55)
[2024-10-18] MEDS: INSULIN GLARGINE 100 UNITS/ML 3ML FLEXPEN 11 UNIT SUBCUT (10:01)
[2024-10-18 10:08] LABS: POC Glucose,Bedside 202 (70-110)
[2024-10-18 12:08] LABS: POC Glucose,Bedside 234 (70-110)
[2024-10-18] MEDS: IRON SUCROSE COMPLEX 200 MG in 0.9 % SODIUM CHLORIDE 100 ML 220 MG IV (12:55)
--- NOTE | 2024-10-18 13:28 | EXP.DC.SUM ---
General Admission date:: 10/12/24 HPI HPI HPI: Ms. Mallory is an 89-year-old female with past medical history of insulin-dependent diabetes, CKD 3, CAD, A-fib, pacemaker in situ, heart failure with preserved ejection fraction, cirrhosis with ascites, who presented after a mechanical fall from standing height at home today. States she did not pass out, hit her head, or lose consciousness. She said she was grabbing her blouse when she tripped and fell backwards. Had onset of left hip pain. Was brought to the ER via EMS due to inability to walk. Received fentanyl and transit prior to presentation to the hospital. Left leg shorter than right leg on presentation. Workup in the ER with stable chronic conditions but found to have left intertrochanteric fracture. Case discussed with orthopedics, recommends admission and holding of anticoagulation prior to surgery. Medicine consulted for admission and preoperative risk stratification. Upon arrival to the floor, patient is at baseline mentation. Family helps supplement history. Daughter and son at bedside. She denies fever, shortness of breath, chills, nausea or vomiting, diarrhea, confusion. Just complaining of pain in her hip. Hospital Course Hospital Course Hospital Course: 89-year-old female with PMHx of IDDM, CKD, CAD, Afib, pacemaker in situ, heart failure preserved ejection fraction, recent diagnosis of cirrhosis with ascites and anasarca 10 months ago. Presented to the ER after a fall. Found to have left hip fracture. Discussed case with ER physician, request admission for medical optimization and surgery. Orthopedics consulted. I agreed to admit for further care. Taken for surgery yesterday. Tolerated well. Therapy evaluated, needs placement. Awaiting approval for rehab. Problems addressed as follows: Left intertrochanteric fracture of femur Hip pain Fall - Orthopedics consulted, patient tolerated procedure well. Taken for cephalomedullary nailing of left proximal femur yesterday, tolerated well. Okay to resume Xarelto and Plavix. - Orthopedics recommends weightbearing as tolerated. -PT and OT consult with recommendation for SNF. Graciously accepted to [facility]. - Continue oxycodone 5 mg every 4 hours. Discontinue methocarbamol and Dilaudid. Continue ice pack. - Zofran 8 mg every 6 hours as needed for nausea secondary to pain and pain meds along with chronic nausea HFpEF A-fib Hyperlipidemia CAD -Okay to resume Plavix in the morning and Xarelto. - Patient does not appear to be in exacerbation at this time. Last echo performed in January 2024. Shows normal LV function. Severe RV dilation with severe TR. ECHO showed grade II diastolic dysfunction with preserved EF -Caution with fluids. Tolerating midodrine 5 mg 3 times a day with improvement in blood pressure. -Continue metoprolol tartrate 50 mg twice daily, rate better controlled -Discontinued bisoprolol, Jardiance, isosorbide. Will hold on diuresis and consider again tomorrow. ? Resume Bumex as needed for leg edema. Acute on chronic anemia #Iron deficiency anemia #CKD stage IV - Hemoglobin 8.0 today. Given 1 unit PRBC with a history of CAD and soft pressures. No signs of bleeding. ? Started sodium bicarb 350mg twice daily for CKD. ? Started ferrous sulfate for iron deficiency anemia Cirrhosis of the liver Aneurism of the splenic: Recurring ascites Most recent paracentesis performed 6wks ago on 09/06. Removed approximately 3-1/2 L of fluid. BUN 92, creatinine 1.8. Patient has SUMMERS score of F2-bridging fibrosis; Child Krueger B Constipation: On bowel regimen Docusate BID, lactulose 4 times a day. Small bowel movement yesterday. Will get patient up to bedside commode IDDM: last A1c 7.9, 3 months ago. Goal A1c less than 8. Repeat A1c 9.7 this admission. Continue Lantus 20 units nightly Exam Data for Last 24 hours Vital signs and Labs for Last 24 Hours: Temp Pulse Resp BP Pulse Ox O2 Del Method O2 Flow Rate 97.6 F 95 H 15 95/61 L 96 Room Air 2 10/18/24 12:00 10/18/24 12:00 10/18/24 12:00 10/18/24 12:00 10/18/24 12:00 10/18/24 12:00 10/16/24 04:00 Laboratory Results - last 24 hr 10/17/24 16:21: POC Glucose 248 H 10/17/24 21:12: POC Glucose 231 H 10/18/24 05:30: POC Glucose 187 H 10/18/24 07:15: WBC 11.9 H, RBC 3.25 L, Hgb 8.0 L, Hct 26.3 L, MCV 80.9 L, MCH 24.6 L, MCHC 30.4 L, RDW 17.2, Plt Count 201, MPV 9.9, Neut % (Auto) 78.7, Lymph % (Auto) 8.0 L, Blount % (Auto) 10.8 H, Eos % (Auto) 1.4, Baso % (Auto) 0.2, Neut # (Auto) 9.4 H, Lymph # (Auto) 1.0, Blount # (Auto) 1.3 H, Eos # (Auto) 0.2, Baso # (Auto) 0.0, Sodium 127 L, Potassium 5.2 H, Chloride 96 L, Carbon Dioxide 19 L, Anion Gap 17.2 H, BUN 91 H, Creatinine 1.80 H, Estimated Creat Clear 22, Estimated GFR 27 L, Est GFR ( Amer) 32 L, Glucose 168 H, Calcium 9.2, Magnesium 2.5 H, Total Bilirubin 0.9, AST 59 H, ALT 32, Alkaline Phosphatase 163 H, Total Protein 6.3, Albumin 3.6 D, Globulin 2.7, Albumin/Globulin Ratio 1.3 10/18/24 09:56: POC Glucose 202 H 10/18/24 11:58: POC Glucose 234 H I & O for Last 24 hours: Intake & Output 10/15/24 10/16/24 10/17/24 10/18/24 23:59 23:59 23:59 23:59 Intake Total 1050 / 1050 1210 / 1210 720 / 960 240 / 240 Output Total 850 / 850 800 / 800 325 / 325 50 / 50 Balance 200 / 200 410 / 410 395 / 635 190 / 190 Weight 60.736 kg 62.233 kg 62.641 kg 62.369 kg Constitutional Comments: Constitutional: Present no acute distress, thin, chronically ill appearing and cooperative Head: Present atraumatic and normocephalic ENT: Present normal exam Neck: Present normal inspection Respiratory: Present normal respiratory effort; Absent rhonchi, wheezes or crackles Cardiac: Present Reg Rate and Rhythm GI: Present soft and normal bowel sounds; Absent distention or tenderness Extremities: Present normal inspection; Absent full ROM or edema Comment:: Legs equal length, bandage clean dry and intact over left hip. Skin: Present intact; Absent erythema Neuro: Present Grossly Intact, alert, awake and moves all extremities Comment:: Oriented to self and place Results Data Completed and Pending Labs on day of discharge: Labs from last 24 hours 10/18/24 10/18/24 10/18/24 11:58 09:56 07:15 WBC 11.9 H RBC 3.25 L Hgb 8.0 L Hct 26.3 L MCV 80.9 L MCH 24.6 L MCHC 30.4 L RDW 17.2 Plt Count 201 MPV 9.9 Neut % (Auto) 78.7 Lymph % (Auto) 8.0 L Blount % (Auto) 10.8 H Eos % (Auto) 1.4 Baso % (Auto) 0.2 Neut # (Auto) 9.4 H Lymph # (Auto) 1.0 Blount # (Auto) 1.3 H Eos # (Auto) 0.2 Baso # (Auto) 0.0 Sodium 127 L Potassium 5.2 H Chloride 96 L Carbon Dioxide 19 L Anion Gap 17.2 H BUN 91 H Creatinine 1.80 H Estimated Creat Clear 22 Estimated GFR 27 L Est GFR ( Amer) 32 L Glucose 168 H POC Glucose 234 H 202 H Calcium 9.2 Magnesium 2.5 H Total Bilirubin 0.9 AST 59 H ALT 32 Alkaline Phosphatase 163 H Total Protein 6.3 Albumin 3.6 D Globulin 2.7 Albumin/Globulin Ratio 1.3 10/18/24 10/17/24 10/17/24 05:30 21:12 16:21 WBC RBC Hgb Hct MCV MCH MCHC RDW Plt Count MPV Neut % (Auto) Lymph % (Auto) Blount % (Auto) Eos % (Auto) Baso % (Auto) Neut # (Auto) Lymph # (Auto) Blount # (Auto) Eos # (Auto) Baso # (Auto) Sodium Potassium Chloride Carbon Dioxide Anion Gap BUN Creatinine Estimated Creat Clear Estimated GFR Est GFR ( Amer) Glucose POC Glucose 187 H 231 H 248 H Calcium Magnesium Total Bilirubin AST ALT Alkaline Phosphatase Total Protein Albumin Globulin Albumin/Globulin Ratio DS: Diagnosis Discharge Diagnosis (1) Intertrochanteric fracture of left hip: Status: Acute Code(s): S72.142A - Displaced intertrochanteric fracture of left femur, initial encounter for closed fracture Qualifiers: Encounter type: initial encounter Fracture alignment: displaced Fracture type: closed Qualified Code(s): S72.142A - Displaced intertrochanteric fracture of left femur, initial encounter for closed fracture (2) Closed fracture of left hip: Status: Acute Code(s): S72.002A - Fracture of unspecified part of neck of left femur, initial encounter for closed fracture (3) Fall: Status: Acute Code(s): W19.XXXA - Unspecified fall, initial encounter (4) Cirrhosis: Status: Acute Code(s): K74.60 - Unspecified cirrhosis of liver Qualifiers: Ascites presence: with ascites Hepatic cirrhosis type: unspecified hepatic cirrhosis Qualified Code(s): K74.60 - Unspecified cirrhosis of liver; R18.8 - Other ascites (5) THANH (acute kidney injury): Status: Acute Code(s): N17.9 - Acute kidney failure, unspecified (6) Acute on chronic heart failure with preserved ejection fraction (HFpEF): Status: Acute Code(s): I50.33 - Acute on chronic diastolic (congestive) heart failure (7) Frail elderly: Status: Acute Code(s): R54 - Age-related physical debility (8) Diabetes mellitus type 2 in nonobese: Status: Acute Code(s): E11.9 - Type 2 diabetes mellitus without complications (9) Polypharmacy: Status: Acute Code(s): Z79.899 - Other intermodal customer service (current) drug therapy (10) Coronary artery disease: Status: Acute Code(s): I25.10 - Atherosclerotic heart disease of [place] coronary artery without angina pectoris Qualifiers: Associated angina: with other forms of angina Coronary Disease-Associated Artery/Lesion type: [place] artery [place] vs. transplanted heart: [place] heart Qualified Code(s): I25.118 - Atherosclerotic heart disease of [place] coronary artery with other forms of angina pectoris (11) Atrial fibrillation: Status: Acute Code(s): I48.91 - Unspecified atrial fibrillation Qualifiers: Atrial fibrillation type: unspecified chronic Qualified Code(s): I48.20 - Chronic atrial fibrillation, unspecified (12) Anemia: Status: Acute Code(s): D64.9 - Anemia, unspecified Qualifiers: Anemia type: unspecified type Qualified Code(s): D64.9 - Anemia, unspecified (13) Pleural effusion: Status: Acute Code(s): J90 - Pleural effusion, not elsewhere classified (14) Abdominal ascites: Status: Acute Code(s): R18.8 - Other ascites Qualifiers: Ascites type: other type Qualified Code(s): R18.8 - Other ascites (15) Aneurysm of splenic artery: Status: Acute Code(s): I72.8 - Aneurysm of other specified arteries (16) Severe protein-calorie malnutrition: Status: Acute Code(s): E43 - Unspecified severe protein-calorie malnutrition Meds Home Medications and Allergies Home Medications ?Medication ?Instructions ?Recorded ?Confirmed ?Type multivitamin-ferrous 1 each PO DAILY 08/18/21 10/18/24 History fumarate-folic acid 18 mg-400 mcg tablet nitroglycerin 0.4 mg sublingual 0.4 mg sublingual Q5M PRN chest 12/20/23 10/13/24 Rx tablet pain #30 tabs pen needle, diabetic 31 gauge x 03/17/24 10/13/24 History 5/16 (BD Ultra-Fine Short Pen Needle) mecobalamin (vitamin B12) 5,000 5,000 mcg PO DAILY vitamin B12 05/18/24 10/18/24 Rx mcg chewable tablet deficiency #90 tabs clopidogrel 75 mg tablet 75 mg PO DAILY heart stents #90 07/18/24 10/18/24 Rx tabs flash glucose sensor (FreeStyle #1 kit 08/16/24 10/13/24 Rx Kai 2 Sensor kit) atorvastatin 40 mg tablet 40 mg PO HS 90 days #90 tabs 09/04/24 10/13/24 Rx ondansetron HCl 8 mg tablet 8 mg PO Q8H PRN nausea and 09/04/24 10/13/24 Rx vomiting 60 days #90 tabs oxycodone 5 mg tablet 2.5 mg (1/2 x 5 mg) PO Q4-6H PRN 09/05/24 10/13/24 Rx pain #90 tabs pen needle, diabetic 31 gauge x #1,200 ea 10/09/24 10/13/24 Rx 3/16 (BD Ultra-Fine Mini Pen Needle) levothyroxine 50 mcg tablet 50 mcg PO DAILY 10/13/24 10/13/24 History mirabegron 25 mg tablet,extended 25 mg PO DAILY 10/13/24 10/13/24 History release 24 hr (Myrbetriq) omeprazole 40 mg capsule,delayed 40 mg PO DAILY 10/13/24 10/18/24 History release rivaroxaban 15 mg tablet (Xarelto) 15 mg PO HS 10/13/24 10/13/24 History sertraline 100 mg tablet 100 mg PO DAILY 10/13/24 10/13/24 History ferrous gluconate 324 mg (38 mg 324 mg PO BID 30 days #0 tabs 10/18/24 10/13/24 Rx iron) tablet hydrocodone 5 mg-acetaminophen 325 1 tab PO Q4HP PRN Moderate To 10/18/24 Rx mg tablet Severe Pain (4-10) 3 days #18 tabs insulin glargine 100 unit/mL (3 20 unit (0.2 mL) SQ DAILY 60 days 10/18/24 10/13/24 Rx mL) subcutaneous pen (Lantus #13.2 mL Solostar U-100 Insulin) lactulose 20 gram/30 mL oral 10 g (15 mL) PO BID 30 days #900 mL 10/18/24 Rx solution metoprolol tartrate 50 mg tablet 25 mg (1/2 x 50 mg) PO BID 30 days 10/18/24 Rx #30 tabs midodrine 5 mg tablet 5 mg PO TID 30 days #90 tabs 10/18/24 Rx polyethylene glycol 3350 17 17 g PO DAILY #510 grams 10/18/24 Rx gram/dose oral powder (Miralax) sodium bicarbonate 325 mg tablet 325 mg PO BID 30 days #60 tabs 10/18/24 Rx New Prescriptions to Start Prescriptions: hydrocodone-acetaminophen Richard Munoz lactulose Richard Munoz metoprolol tartrate Richard Munoz midodrine Richard Munoz polyethylene glycol 3350 [Miralax] Richard Munoz sodium bicarbonate Richard Munoz Allergies Allergy/AdvReac Type Severity Reaction Status Date / Time methylprednisolone Allergy Mild Elevated Verified 09/04/24 13:49 glucose Discharge Plan Disposition Patient Disposition: [facility]F Condition: Fair Discharge Order Discharge Orders: Discharge Order (Routine); Ordered 10/18/24 Ordered By: Richard Munoz Follow up Plan Follow up with: Gonzalo Rendon DO [Staff Physician] - 10/23/24 Prescriptions/Medication Reconciliation: New midodrine 5 mg Tablet 5 mg PO TID 30 Days Qty: 90 0RF lactulose 20 gram/30 mL Solution 10 g PO BID 30 Days Qty: 900 0RF metoprolol tartrate 50 mg Tablet 25 mg PO BID 30 Days Qty: 30 0RF polyethylene glycol 3350 [Miralax] 17 gram/dose powder 17 g PO DAILY Qty: 510 0RF sodium bicarbonate 325 mg tablet 325 mg PO BID 30 Days Qty: 60 0RF hydrocodone-acetaminophen 5-325 mg Tablet 1 tab PO Q4HP PRN (Reason: Moderate To Severe Pain (4-10)) 3 Days Qty: 18 0RF Continued nitroglycerin 0.4 mg tablet, sublingual 0.4 mg sublingual Q5M PRN (Reason: chest pain) Qty: 30 3RF Rx Instructions: do not exceed 3 doses per episode atorvastatin 40 mg tablet 40 mg PO HS 90 Days Qty: 90 3RF ondansetron HCl 8 mg tablet 8 mg PO Q8H PRN (Reason: nausea and vomiting) 60 Days Qty: 90 4RF oxycodone 5 mg tablet 2.5 mg PO Q4-6H PRN (Reason: pain) Qty: 90 0RF (DME) pen needle, diabetic [BD Ultra-Fine Short Pen Needle] 31 gauge x 5/16 needle See Rx Instructions .Route Rx Instructions: As directed or bid No. 5 mecobalamin (vitamin B12) 5,000 mcg tablet,chewable 5,000 mcg PO DAILY Qty: 90 0RF clopidogrel 75 mg tablet 75 mg PO DAILY Qty: 90 0RF (DME) FreeStyle Kai 2 Sensor Kit See Rx Instructions .ROUTE .COMPLEX Qty: 1 2RF Dose Instruction: USE DIRECTED Rx Instructions: USE DIRECTED (DME) pen needle, diabetic [BD Ultra-Fine Mini Pen Needle] 31 gauge x 3/16 needle See Rx Instructions .ROUTE .MEDSUPPLY Qty: 1200 3RF Patient Comments: USE as directed TWICE DAILY with insulin Rx Instructions: As directed lnpkqyakhmgb-wgqh-rohst acid 1 EACH tablet 1 each PO DAILY sertraline 100 mg tablet 100 mg PO DAILY Patient Comments: TAKE ONE TABLET BY MOUTH EVERY DAY omeprazole 40 mg capsule,delayed release(DR/EC) 40 mg PO DAILY Patient Comments: TAKE ONE CAPSULE BY MOUTH EVERY DAY levothyroxine 50 mcg tablet 50 mcg PO DAILY Xarelto 15 mg tablet 15 mg PO HS Patient Comments: TAKE ONE TABLET BY MOUTH EVERY NIGHT AT BEDTIME --TAKE WITH FOOD-- mirabegron [Myrbetriq] 25 mg tablet extended release 24 hr 25 mg PO DAILY Patient Comments: TAKE ONE TABLET BY MOUTH EVERY DAY FOR BLADDER Changed ferrous gluconate 324 mg (38 mg iron) tablet 324 mg PO BID 30 Days Qty: 0 0RF insulin glargine [Lantus Solostar U-100 Insulin] 100 unit/mL (3 mL) insulin pen 20 unit SQ DAILY 60 Days Qty: 13.2 4RF Rx Instructions: 13 IU sq in AM, then 11 IU sq in PM Discontinued spironolactone 50 mg tablet 50 mg PO DAILY Qty: 30 2RF Rx Instructions: Please take 1 tablet p.o. daily Jardiance 10 mg tablet 20 mg PO DAILY 90 Days Qty: 180 3RF bisoprolol fumarate 5 mg tablet 2.5 mg PO HS Qty: 30 5RF cetirizine 10 mg tablet 10 mg PO HS bumetanide 1 mg tablet 1 mg PO DAILY Patient Comments: TAKE ONE TABLET BY MOUTH EVERY DAY verapamil 120 mg capsule,ext rel. pellets 24 hr 120 mg PO DAILY docusate sodium 100 mg capsule 100 mg PO DAILY Problem Reconciliation Problems Reviewed?: Yes Patient Discharge Instructions Patient Instructions: High-Calorie, High-Protein Diet, DI for Hip Replacement, DI for Surgical Site Infection, Catheter-Associated Urinary Tract Infection, NCM High-Calorie High-Protein Diet, WM High Calorie High Protein Diet Recipes, High-Protein Diet Foods List Print Language: Jamaican Providers Primary Care Provider: Richard Gutiérrez Admit Provider: Armando Greer Attending Provider: Armando Greer
--- NOTE | 2024-10-18 14:15 | HMH.PHAINT1 ---
Pharmacy Intervention Comments: PATIENT UNABLE TO COMMUNICATE. DISCUSSED NEW MEDICATIONS, CHANGED MEDICATIONS, AND DISCONTINUED MEDICATIONS WITH PATIENT'S FAMILY PRIOR TO DISCHARGE. PROVIDED MEDICATION COUNSELING. PATIENT'S FAMILY VERBALIZED UNDERSTANDING.
[2024-10-18] MEDS: 0.9 % SODIUM CHLORIDE 1000ML 500 ML IV (15:14)
--- NOTE | 2024-10-18 16:41 | P.PN_ITS ---
Subjective *Date: 10/19/24 *Time: 08:54 Interval history: C/o pain, medicated with pain mes. Sleepy,but comfrtable appearng. No other complaints. Denies paresthesias, Cp, SOB. Ortho Exam (Inpt) Vital signs and Labs for Last 24 Hours: Temp Pulse Resp BP Pulse Ox O2 Del Method O2 Flow Rate 97.4 F L 77 18 98/55 L 96 Room Air 2 10/18/24 16:10 10/18/24 16:10 10/18/24 16:10 10/18/24 16:10 10/18/24 16:10 10/18/24 15:55 10/16/24 04:00 Laboratory Results - last 24 hr 10/17/24 21:12: POC Glucose 231 H 10/18/24 05:30: POC Glucose 187 H 10/18/24 07:15: WBC 11.9 H, RBC 3.25 L, Hgb 8.0 L, Hct 26.3 L, MCV 80.9 L, MCH 24.6 L, MCHC 30.4 L, RDW 17.2, Plt Count 201, MPV 9.9, Neut % (Auto) 78.7, Lymph % (Auto) 8.0 L, [place] % (Auto) 10.8 H, Eos % (Auto) 1.4, Baso % (Auto) 0.2, Neut # (Auto) 9.4 H, Lymph # (Auto) 1.0, [place] # (Auto) 1.3 H, Eos # (Auto) 0.2, Baso # (Auto) 0.0, Sodium 127 L, Potassium 5.2 H, Chloride 96 L, Carbon Dioxide 19 L, Anion Gap 17.2 H, BUN 91 H, Creatinine 1.80 H, Estimated Creat Clear 22, Estimated GFR 27 L, Est GFR ( Amer) 32 L, Glucose 168 H, Calcium 9.2, Magnesium 2.5 H, Total Bilirubin 0.9, AST 59 H, ALT 32, Alkaline Phosphatase 163 H, Total Protein 6.3, Albumin 3.6 D, Globulin 2.7, Albumin/Globulin Ratio 1.3 10/18/24 09:56: POC Glucose 202 H 10/18/24 11:58: POC Glucose 234 H 10/18/24 13:55: Blood Type O Positive, Antibody Screen Negative, Crossmatch (AHG) See Detail I & O for Labs for Last 24 Hours: Intake & Output 10/15/24 10/16/24 10/17/24 10/18/24 23:59 23:59 23:59 23:59 Intake Total 1050 / 1050 1210 / 1210 720 / 960 510 / 510 Output Total 850 / 850 800 / 800 325 / 325 50 / 50 Balance 200 / 200 410 / 410 395 / 635 460 / 460 Weight 60.736 kg 62.233 kg 62.641 kg 62.369 kg Additional findings:: L hip: Dressing C/D/I. NVID with <2 sec cap refill. + EHL/FHL/GS/TA. +SILT 1st DWS/PA. Calves and thigh SNT. Assessment and Plan *Assessment and plan (1) Intertrochanteric fracture of left hip: Status: Acute Qualifiers: Encounter type: initial encounter Fracture alignment: displaced Fracture type: closed Qualified Code(s): S72.142A - Displaced intertrochanteric fracture of left femur, initial encounter for closed fracture Category: Medical Code(s): S72.142A - Displaced intertrochanteric fracture of left femur, initial encounter for closed fracture Plan WBAT to LLE with RW for ambulation Pain control Ice to L hip PRN pain Further care per medical team appreciated. F/u in office 10/31/24 for erin out and post-op followup.
[2024-10-18 20:01] LABS: POC Glucose,Bedside 230 (70-110)
--- NOTE | 2024-10-18 20:23 | PC.NURSE ---
Pt D/C off floor via EMS to [place] @20:27
== END 2024-10-18 20:27 | DRG 480 ==
LOC: ER 16:16 → 2ND 16:31
PROVIDERS: Orthopaedic Surgery; Admitting Provider Internal Medicine Adolescent Medicine; Emergency Provider Student in an Organized Health Care Education/Training Program; PCP Internal Medicine; Visit Provider Internal Medicine Adolescent Medicine
PROC: 0QH736Z Insertion of Intramedullary Internal Fixation Device into Left Upper Femur, Percutaneous Approach (ICD-10-PCS; principal; 2024-10-16 09:00)
DX: S72.142A Displaced intertrochanteric fracture of left femur, initial encounter for closed fracture (principal); E43 Unspecified severe protein-calorie malnutrition; N18.4 Chronic kidney disease, stage 4 (severe); I48.20 Chronic atrial fibrillation, unspecified; I50.32 Chronic diastolic (congestive) heart failure; I13.0 Hypertensive heart and chronic kidney disease with heart failure and stage 1 through stage 4 chronic kidney disease, or unspecified chronic kidney disease; E11.22 Type 2 diabetes mellitus with diabetic chronic kidney disease; W01.0XXA Fall on same level from slipping, tripping and stumbling without subsequent striking against object, initial encounter; D63.1 Anemia in chronic kidney disease; K74.60 Unspecified cirrhosis of liver; I25.118 Atherosclerotic heart disease of native coronary artery with other forms of angina pectoris; Z79.4 Long term (current) use of insulin; Z79.01 Long term (current) use of anticoagulants; Z79.899 Other long term (current) drug therapy; Z95.0 Presence of cardiac pacemaker; Z68.27 Body mass index [BMI] 27.0-27.9, adult; I72.8 Aneurysm of other specified arteries
CPT/HCPCS: 36415; 71045; 73502; 76000; 80048; 80053; 81001; 82140; 82306; 82962; 83036; 83735; 84132; 85014; 85018; 85025; 85610; 85730; 86850; 93005; 97110; 97162; 97166; 97530; 99291; C1713; C1769; C1776; J0131; J0690; J0780; J1171; J1650; J1756; J2270; J2405; J7030; J7120; P9016

== ENCOUNTER 2024-10-31 09:10 | Outpatient (CLI) | payer MEDICARE, MEDICAID, SELFPAY ==
--- NOTE | 2024-10-31 09:14 | XR_ITS ---
FINAL REPORT CLINICAL HISTORY: lt hip pain COMPARISON: 10/12/2024 FINDINGS: LEFT HIP: 3 views of the left hip were obtained. There has been interval placement of an intramedullary zan in the proximal left femur. There is a compression screw securing an intertrochanteric fracture. The fracture fragments are in near anatomic alignment. The bones are osteopenic. IMPRESSION: Postsurgical changes as above. Osteopenia. Reviewed, Interpreted and Dictated by Tremayne Morelos MD Transcribed by Christina Cassidy Authenticated and [facility]
== END 2024-10-31 23:59 | disposition home or self-care (01) ==
LOC: RAD 09:11
PROVIDERS: PCP Internal Medicine; Visit Provider Orthopaedic Surgery
DX: M25.552 Pain in left hip (principal); S72.002A Fracture of unspecified part of neck of left femur, initial encounter for closed fracture
CPT/HCPCS: 73502

== ENCOUNTER 2024-12-19 11:31 | Outpatient (CLI) | payer OTHER, SELFPAY ==
--- NOTE | 2024-12-19 11:45 | XR_ITS ---
FINAL REPORT CLINICAL HISTORY: Left hip fx COMPARISON: 10/31/2024 FINDINGS: LEFT HIP 2 views of the left hip are obtained. There is no acute fracture or dislocation. There is ORIF of an intertrochanteric left femoral fracture. Dynamic compression screw and intramedullary zan are stable. Visualized joint spaces are normally aligned. There is no acute soft tissue abnormality. IMPRESSION: Stable, comminuted proximal left femoral fracture with ORIF changes. Reviewed, Interpreted and Dictated by Alessandro Burrell MD Transcribed by Niesha Horn Authenticated and [facility]
== END 2024-12-19 23:59 | disposition home or self-care (01) ==
LOC: RAD 11:41
PROVIDERS: PCP Internal Medicine; Visit Provider Orthopaedic Surgery
DX: M25.552 Pain in left hip (principal); S72.142A Displaced intertrochanteric fracture of left femur, initial encounter for closed fracture
CPT/HCPCS: 73502

== ENCOUNTER 2025-01-12 07:09 | Outpatient (CLI) | payer OTHER, SELFPAY ==
[2025-01-12 07:32] LABS: Chloride 99 mmol/L (98-107); Potassium 3.5 mmoL/L (3.5-5.1); Sodium 138 mmol/L (136-145)
[2025-01-12 07:33] LABS: Basophils % 0.4 % (0.1-2.0); Eosinophils # 0.2 K/mm3 (0.0-0.4); Eosinophils % 3.9 % (0.1-12.0); Hematocrit 30.2 % (37.0-47.0); Hemoglobin 9.4 g/dL (12.2-16.2); Lymphocytes # 0.7 K/mm3 (0.7-4.5); Lymphocytes % 15.8 % (10-50); Mean Corpuscular HGB Conc 31.1 g/dL (31.8-35.4); Mean Corpuscular Hemoglobin 26.1 pg (27.0-31.2); Mean Corpuscular Volume 83.9 fl (81-99); Mean Platelet Volume 10.3 fl (7.4-10.4); Monocytes # 0.5 K/mm3 (0.1-1.0); Monocytes % 11.6 % (1.7-9.3); Neutrophils # 3.1 K/mm3 (1.8-7.8); Neutrophils % 68.1 % (37.0-80.0); Nucleated Red Blood Cells # 0 10^3/uL; Nucleated Red Blood Cells % 0 %; Platelet Count 111 K/mm3 (142-424); Red Cell Distribution Width-SD 62.2 fL; White Blood Count 4.6 K/mm3 (4.8-10.8)
[2025-01-12 07:34] LABS: Blood Urea Nitrogen 29 mg/dl (7-17); Estimated Glomerular Filt Rate 47 ml/min (>60); GFR (African American) 57 ML/MIN (>60)
[2025-01-12 07:35] LABS: Alanine Aminotransferase 11 U/L (12-78); Albumin/Globulin Ratio 0.9 (1.1-1.8); Alkaline Phosphatase 139 U/L (38-126); Anion Gap 10.5 mEq/L (5-15); Aspartate Amino Transferase 30 U/L (14-36); Calcium 8.9 mg/dl (8.4-10.2); Carbon Dioxide 32 mmol/L (22.0-30.0); Globulin 3.2 g/dL (1.3-3.2); Glucose 84 mg/dl (74-100); Total Protein,Serum 6.2 g/dl (6.3-8.2)
== END 2025-01-12 23:59 | disposition home or self-care (01) ==
PROVIDERS: PCP Family Medicine; Visit Provider Family Medicine
DX: D64.9 Anemia, unspecified (principal); K74.60 Unspecified cirrhosis of liver
CPT/HCPCS: 36415; 80053; 85025

== ENCOUNTER 2025-01-17 08:38 | Observation (INO) | payer MEDICARE, SELFPAY ==
[2025-01-17] VITALS (14 sets, daily range): BP systolic 97–126; BP diastolic 61–82; PULSE 81–125; RESP 12–20; TEMP 36.6–36.9; O2SAT 90–99; BMI 25.4; BMI 25.9
--- NOTE | 2025-01-17 08:35 | ECG_ITS ---
APPROVED REPORT Exam: Resting ECG HR:108 bpm ECG Measurements Heart Rate 108 AXES QRSd 94 QRS 123 QT 324 T -26 QTc 388 Conclusion atrial fibrillation, T wave inversion III, AvF, PVC present, no MARYANN or STD Electronically signed by : Amaya Velasquez, 01/17/2025 09:52:28
--- NOTE | 2025-01-17 08:43 | ED_ITS ---
Discharge Plan Disposition Chief Complaint: Shortness of Breath/Dyspnea Prescriptions Prescriptions: No Action nitroglycerin 0.4 mg tablet, sublingual 0.4 mg sublingual Q5M PRN (Reason: chest pain) Qty: 30 3RF Rx Instructions: do not exceed 3 doses per episode atorvastatin 40 mg tablet 40 mg PO HS 90 Days Qty: 90 3RF ondansetron HCl 8 mg tablet 8 mg PO Q8H PRN (Reason: nausea and vomiting) 60 Days Qty: 90 4RF (DME) pen needle, diabetic [BD Ultra-Fine Short Pen Needle] 31 gauge x 5/16 needle See Rx Instructions .Route Rx Instructions: As directed or bid No. 5 mecobalamin (vitamin B12) 5,000 mcg tablet,chewable 5,000 mcg PO DAILY Qty: 90 0RF clopidogrel 75 mg tablet 75 mg PO DAILY Qty: 90 0RF (DME) FreeStyle Kai 2 Sensor Kit See Rx Instructions .ROUTE .COMPLEX Qty: 1 2RF Dose Instruction: USE DIRECTED Rx Instructions: USE DIRECTED (DME) pen needle, diabetic [BD Ultra-Fine Mini Pen Needle] 31 gauge x 3/16 needle See Rx Instructions .ROUTE .MEDSUPPLY Qty: 1200 3RF Patient Comments: USE as directed TWICE DAILY with insulin Rx Instructions: As directed insulin lispro [Humalog KwikPen Insulin] 100 unit/mL insulin pen 1 sliding scale dose SQ TID Qty: 15 4RF insulin glargine [Lantus Solostar U-100 Insulin] 100 unit/mL (3 mL) insulin pen 15 unit SQ BID 60 Days Qty: 18 4RF furosemide [Lasix] 40 mg tablet 40 mg PO DAILY Qty: 30 2RF metolazone 5 mg tablet 5 mg PO DAILY Qty: 30 3RF potassium chloride 20 mEq tablet extended release 20 meq PO DAILY Qty: 30 2RF ofloxacin 0.3 % drops 2 drp Eye-Left QID 7 Days Qty: 10 0RF dexamethasone 0.1 % drops,suspension 1 drp Eye-Left BID 3 Days Qty: 5 0RF hydrocodone-acetaminophen 7.5-325 mg tablet 1 tab PO QID PRN (Reason: pain) Qty: 120 0RF Breztri Aerosphere 160-9-4.8 mcg/actuation HFA aerosol inhaler 2 inh inhalation BID Qty: 10.7 2RF krkbptvapkno-drje-dbgav acid 1 EACH tablet 1 each PO DAILY sertraline 100 mg tablet 100 mg PO DAILY Patient Comments: TAKE ONE TABLET BY MOUTH EVERY DAY omeprazole 40 mg capsule,delayed release(DR/EC) 40 mg PO DAILY Patient Comments: TAKE ONE CAPSULE BY MOUTH EVERY DAY levothyroxine 50 mcg tablet 50 mcg PO DAILY Xarelto 15 mg tablet 15 mg PO HS Patient Comments: TAKE ONE TABLET BY MOUTH EVERY NIGHT AT BEDTIME --TAKE WITH FOOD-- mirabegron [Myrbetriq] 25 mg tablet extended release 24 hr 25 mg PO DAILY Patient Comments: TAKE ONE TABLET BY MOUTH EVERY DAY FOR BLADDER lactulose 20 gram/30 mL Solution 10 g PO BID 30 Days Qty: 900 0RF metoprolol tartrate 50 mg Tablet 25 mg PO BID 30 Days Qty: 30 0RF polyethylene glycol 3350 [Miralax] 17 gram/dose powder 17 g PO DAILY Qty: 510 0RF sodium bicarbonate 325 mg tablet 325 mg PO BID 30 Days Qty: 60 0RF ferrous gluconate 324 mg (38 mg iron) tablet 324 mg PO BID 30 Days Qty: 0 0RF Referrals Follow up/Referrals: Alexy Richardson MD [Primary Care Provider] - See instructions Print Language Print Language: Latvian Discharge ED Provider: Amaya Velasquez General Adult HPI General Chief complaint: Shortness of Breath/Dyspnea Stated complaint: SOA Time Seen by Provider: 01/17/25 08:43 Mode of Arrival: EMS Source of Information: Patient and EMS Description of Symptoms (Recalled from ER Triage Doc. by RN): Reports cough and shortness of breath for 3 days. [facility] Given an Albuterol neb treatment [facility] the [facility] and a duo neb enroute by EMS. History of Present Illness HPI narrative: Patient is a 89-year-old with past medical history significant for COPD cirrhosis CKD atrial fibrillation coronary artery disease hyperlipidemia and recent ORIF of the hip presents to the emergency department with difficulty breathing. Patient has had a nonproductive cough for the last 3 days with shortness of breath no chest pain. Positive orthopnea weight gain and increased swelling of her abdomen and lower extremities. Patient has been taking her Lasix daily. No chest pain or abdominal pain fevers or chills. Patient was saturating 84% at her rehabilitation facility does not wear oxygen at baseline. Of note patient has been off of her Xarelto for the last 3 days Related Data Home Medications ?Medication ?Instructions ?Recorded ?Confirmed multivitamin-ferrous 1 each PO DAILY 08/18/21 01/09/25 fumarate-folic acid 18 mg-400 mcg tablet pen needle, diabetic 31 gauge x 03/17/24 01/09/2502/16 (BD Ultra-Fine Short Pen Needle) levothyroxine 50 mcg tablet 50 mcg PO DAILY 10/13/24 01/09/25 mirabegron 25 mg tablet,extended 25 mg PO DAILY 10/13/24 01/09/25 release 24 hr (Myrbetriq) omeprazole 40 mg capsule,delayed 40 mg PO DAILY 10/13/24 01/09/25 release rivaroxaban 15 mg tablet (Xarelto) 15 mg PO HS 10/13/24 01/09/25 sertraline 100 mg tablet 100 mg PO DAILY 10/13/24 01/09/25 Previous Rx's ?Medication ?Instructions ?Recorded nitroglycerin 0.4 mg sublingual 0.4 mg sublingual Q5M PRN chest 12/20/23 tablet pain #30 tabs mecobalamin (vitamin B12) 5,000 5,000 mcg PO DAILY vitamin B12 05/18/24 mcg chewable tablet deficiency #90 tabs clopidogrel 75 mg tablet 75 mg PO DAILY heart stents #90 07/18/24 tabs flash glucose sensor (FreeStyle #1 kit 08/16/24 Kai 2 Sensor kit) atorvastatin 40 mg tablet 40 mg PO HS 90 days #90 tabs 09/04/24 ondansetron HCl 8 mg tablet 8 mg PO Q8H PRN nausea and 09/04/24 vomiting 60 days #90 tabs pen needle, diabetic 31 gauge x #1,200 ea 10/09/24 3 (BD Ultra-Fine Mini Pen Needle) ferrous gluconate 324 mg (38 mg 324 mg PO BID 30 days #0 tabs 10/18/24 iron) tablet lactulose 20 gram/30 mL oral 10 g (15 mL) PO BID 30 days #900 mL 10/18/24 solution metoprolol tartrate 50 mg tablet 25 mg (1/2 x 50 mg) PO BID 30 days 10/18/24 #30 tabs polyethylene glycol 3350 17 17 g PO DAILY #510 grams 10/18/24 gram/dose oral powder (Miralax) sodium bicarbonate 325 mg tablet 325 mg PO BID 30 days #60 tabs 10/18/24 insulin glargine 100 unit/mL (3 15 unit (0.15 mL) SQ BID 60 days 11/14/24 mL) subcutaneous pen (Lantus #18 mL Solostar U-100 Insulin) insulin lispro 100 unit/mL 1 sliding scale dose SQ TID #15 mL 11/14/24 subcutaneous pen (Humalog KwikPen (U-100) Insulin) furosemide 40 mg tablet (Lasix) 40 mg PO DAILY #30 tabs 11/21/24 metolazone 5 mg tablet 5 mg PO DAILY #30 tabs 11/21/24 potassium chloride 20 mEq 20 meq PO DAILY #30 tabs 11/21/24 tablet,extended release ofloxacin 0.3 % eye drops 2 drp Eye-Left QID 7 days #10 mL 11/28/24 dexamethasone 0.1 % eye 1 drp Eye-Left BID 3 days #5 mL 12/12/24 drops,suspension hydrocodone 7.5 mg-acetaminophen 1 tab PO QID PRN pain #120 tabs 12/18/24 325 mg tablet budesonide 160 mcg-glycopyr 9 2 inh inhalation BID #10.7 grams 01/16/25 mcg-formot 4.8 mcg/actuation HFA inhaler (Breztri Aerosphere) Allergies Allergy/AdvReac Type Severity Reaction Status Date / Time methylprednisolone Allergy Mild Elevated Verified 01/09/25 14:36 glucose [facility] Disclaimer: The information contained in this section may have been updated after the patient was seen, as this information can be updated by other users. 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 Anemia Cardiac pacemaker in situ SSS (sick sinus syndrome) Coronary artery disease Surgical History Closed intertrochanteric fracture of left hip (~10/2024) History of esophagogastroduodenoscopy (EGD) Hx of tonsillectomy History of colonoscopy History of hysterectomy History of appendectomy History of cholecystectomy Family History Other Family history of cancer No significant family history Social History Smoking Status: Unknown if ever smoked second hand exposure: No alcohol intake: never substance use type: denies use current occupational status: disabled Travel in the last 8 weeks: None household members: family housing: house caffeine: No Have you lived/traveled outside [place] in past 30 days?: No Contact w/someone who lives/traveled outside US past 30 days?: No Exposure to someone with infectious disease in past 14 days?: No Do you have a fever (greater than 100.4 F or 38 C)?: No Have you tested positive for COVID-19: No Exposed to someone with COVID-19 in past 14 days?: No Do you have a sore throat?: No Do you have a cough?: No Do you have any weakness?: No Do you have any diarrhea?: No Are you experiencing any unusual bleeding?: No Do you have any muscle aches/pain?: No Do you have any abdominal pain?: No Are you experiencing loss of taste or smell?: No Other Medical History Have you received the Flu Vaccine for this season: No Have you received the Pneumonia Vaccine: No ROS Obtained: Yes All systems reviewed & no additional complaints except as documented Physical Exam General General appearance: alert Eye Eye exam: Present normal appearance; Absent jaundice ENT ENT exam: Present normal oropharynx and mucous membranes moist Chest Chest inspection: Present normal inspection and symmetric chest wall rise Respiratory Respiratory exam: Present other (Crackles bilaterally); Absent respiratory distress or wheezes Cardiovascular Cardiovascular exam: Present tachycardia, irregular rhythm and other (Bilateral 3+ pitting edema to the knees) Abdominal Exam Abdominal exam: Present soft and distention; Absent tenderness Neurological Exam Neurological exam: Present alert and oriented X3 Medical Decision Making Medical Records Screening: Per USPSTF and CDC recommendations, given the prevalence of disease in our region, it is our hospital?s policy to screen for HIV and viral Hepatitis for all patients aged 18 and over and those with ongoing risk factors. Thomas Inquiry Pt receiving controlled substance: No Vital Signs: 01/17/25 08:38 01/17/25 09:00 01/17/25 09:31 Temperature 98.5 F Temperature Source Oral Pulse Rate 115 H 102 H Pulse Rate [Radial] 91 H Respiratory Rate 20 20 18 Blood Pressure 122/75 109/64 L Blood Pressure [Right Arm] 126/75 Blood Pressure Mean [Right Arm] 92 Blood Pressure Source [Right Arm] Automatic Cuff Blood Pressure Position [Right Arm] Sitting 02 Sat by Pulse Oximetry 97 96 94 L Oxygen Delivery Method Room Air Room Air Room Air 01/17/25 10:30 01/17/25 11:00 Temperature Temperature Source Pulse Rate 125 H 81 Pulse Rate [Radial] Respiratory Rate 17 12 Blood Pressure 114/76 97/61 L Blood Pressure [Right Arm] Blood Pressure Mean [Right Arm] Blood Pressure Source [Right Arm] Blood Pressure Position [Right Arm] 02 Sat by Pulse Oximetry 93 L 90 L Oxygen Delivery Method Room Air Room Air Lab Data Lab Results 01/17/25 08:40: WBC 8.4, RBC 4.00 L, Hgb 10.6 L, Hct 33.7 L, MCV 84.3, MCH 26.5 L, MCHC 31.5 L, RDW 19.8 H, Plt Count 124 L, MPV 9.3, Neut % (Auto) 78.8, Lymph % (Auto) 11.4, [place] % (Auto) 8.0, Eos % (Auto) 1.2, Baso % (Auto) 0.2, Neut # (Auto) 6.6, Lymph # (Auto) 1.0, [place] # (Auto) 0.7, Eos # (Auto) 0.1, Baso # (Auto) 0.0, PT 15.2 H, INR 1.40 H, Sodium 138, Potassium 4.3, Chloride 98, C arbon Dioxide 31 H, Anion Gap 13.3, BUN 32 H, Creatinine 1.20 H, Estimated Creat Clear 34, Estimated GFR 42 L, Est GFR ( Amer) 51 L, Glucose 118 H, Calcium 9.1, Magnesium 1.5 L, Total Bilirubin 1.7 H, AST 34, ALT 13, Alkaline Phosphatase 146 H, Troponin I < 0.01, Total Protein 7.5, Albumin 3.8, Globulin 3.7 H, Albumin/Globulin Ratio 1.0 L 01/17/25 08:49: NT-Pro-B Natriuret Pep 3490 H 01/17/25 08:40 01/17/25 08:40 Orders (Tests/Meds): ED MEDICATIONS Discontinued Medications Generic Name Dose Route Start Last Admin Trade Name Freq PRN Reason Stop Dose Admin Furosemide 40 mg 01/17/25 11:22 01/17/25 11:29 Furosemide 40mg/4ml Vial IV 01/17/25 11:23 40 mg ONCE ONE Administration Furosemide 80 mg 01/17/25 11:40 Furosemide 100mg/10ml Vial IV 01/17/25 11:41 ONCE ONE Magnesium Sulfate 2 gm in 50 mls @ 50 mls/hr 01/17/25 09:44 01/17/25 10:34 Magnesium Sulfate 2gm/50ml Premix IV 01/17/25 10:43 50 mls/hr ONCE ONE Administration Iopamidol 70 ml 01/17/25 10:08 01/17/25 10:09 Iopamidol-370 (76%);100ml Bottle IV 01/17/25 10:09 70 ml ONCE ONE Administration Sodium Chloride 40 ml 01/17/25 10:08 01/17/25 10:09 0.9 % Sodium Chloride 50 Ml Vial IV 01/17/25 10:09 40 ml ONCE ONE Administration Sodium Chloride 10 ml 01/17/25 10:08 01/17/25 10:09 Sodium Chloride 0.9% 10ml Syr (Rad Only) IV 01/17/25 10:09 10 ml ONCE ONE Administration ORDERS Category Date Time Status CT angio chest PE protocol Stat Cat Scan 01/17/25 08:48 Completed POCUS Point of Care (ER Only) Stat Exams 01/17/25 08:48 Completed XR chest portable Stat Exams 01/17/25 08:48 Completed Complete Blood Count Auto Diff AMLAB Lab 01/18/25 06:00 Ordered Complete Blood Count Auto Diff Stat Lab 01/17/25 08:40 Completed Comprehensive Metabolic Panel AMLAB Lab 01/18/25 06:00 Ordered Comprehensive Metabolic Panel Stat Lab 01/17/25 08:40 Completed Magnesium AMLAB Lab 01/18/25 06:00 Ordered Magnesium Stat Lab 01/17/25 08:40 Completed NT Pro Brain Natriuretic Pep. Stat Lab 01/17/25 08:49 Completed Procalcitonin Stat Lab 01/17/25 08:49 Received Prothrombin Time INR Stat Lab 01/17/25 08:40 Completed Troponin I Q3H Lab 01/17/25 12:00 Ordered Troponin I Q3H Lab 01/17/25 15:00 Ordered Troponin I Stat Lab 01/17/25 08:40 Completed Medical Decision Narrative: In summary, this 89-year-old female presents to the emergency department today with shortness of. On initial evaluation patient is tachycardic in A-fib RVR ranging from 100-120, normotensive, afebrile, saturating 95% on room air in no acute distress. Differential diagnosis includes but is not limited to heart failure exacerbation COPD exacerbation PE pneumonia viral syndrome decompensated cirrhosis. Based on these concerns, I ordered CBC CMP BNP troponin EKG viral respiratory panel chest x-ray CT PE procalcitonin magnesium PT/INR. ECG personally interpreted demonstrates atrial fibrillation rates of 110, PVC noted no ST elevation ST depressions, T wave inversions in leads III and aVF. Prior to arrival patient received DuoNeb and albuterol neb. Patient has no wheezing on exam more concern for pulmonary edema. Patient received 2 g magnseium and 40 IV lasix for treatment. Labs personally reviewed demonstrate stable anemia, hypomagnesemia, MELD 14, elevated BNP XR personally interpreted demonstrates bilateral pleural effusions and pulmonary edema. No cough or leukocytosis so lower suspicion for PNA. CT imaging personally interpreted demonstrate no saddle PE I had an interactive discussion with Hospital medicine with recommendations to admit to their service. On reassessment pt saturating 90% on RA, will begin diuresis. Procedures Limited Ultrasound Indication:: Shortness of breath Views:: Parasternal long parasternal short axis apical four-chamber Findings:: Limited Cardiac Ultrasound Indication: Shortness of breath Identified cardiac views: Parasternal long axis parasternal short axis apical four-chamber Findings: -Cardiac activity present -Gross wall motion abnormal -Pericardial effusion absent -Right heart strain absent Impression: - Right heart strain present decreased EF Images saved to permanent archive The study was technically adequate CPT: 22130 This study was performed by me, and I personally interpreted all images/videos. Based on my clinical judgement, these images were adequate and did necessitate further imaging. Critical Care Critical Care Time Critical Care Time: No
--- NOTE | 2025-01-17 08:48 | CT_ITS ---
FINAL REPORT TECHNIQUE: Axial imaging of the chest is obtained after the administration of contrast. 3-D MIP reformatted images were also obtained and reviewed per PE protocol. This study was performed with techniques to keep radiation doses as low as reasonably achievable (ALARA). Individualized dose reduction techniques using automated exposure control or adjustment of mA and/or kV according to the patient's size were employed. CLINICAL HISTORY: soa, recent surgery COMPARISON: CT chest 05/24/2024 FINDINGS: The pulmonary arteries are well filled. There is no evidence of pulmonary embolus. Timing of the contrast bolus precludes evaluation for aortic dissection. The heart size is enlarged, and has increased in size since the prior CT of 05/24/2024. There is no mediastinal, hilar, or axillary lymphadenopathy. There is worsening of posterior right upper lobe and right lower lobe airspace disease since the prior exam. Atelectasis is favored, however pneumonia is not excluded. There are several small nodules present in the right lung apex, which are stable, likely apical scarring. The right pleural effusion has increased in size since the prior CT. No left pleural effusion or significant pericardial effusion is identified. A small amount of ascites is noted in the upper abdomen, along with a previously described splenic artery aneurysm. There is diffuse body wall edema, consistent with worsening anasarca. No acute osseous abnormality. Several thoracic compression fractures are stable since the prior CT. IMPRESSION: No evidence of pulmonary embolism. This exam is nondiagnostic for aortic dissection. The heart size has enlarged, since the prior CT. The right pleural effusion has increased in size as well as diffuse body wall changes of anasarca. Worsening posterior right upper lobe and right lower lobe airspace disease. Atelectasis is favored, however pneumonia is not excluded. Reviewed, Interpreted and Dictated by Jacqueline Medina MD Transcribed by Ora Brunson Authenticated and [facility]
--- NOTE | 2025-01-17 08:48 | XR_ITS ---
FINAL REPORT CLINICAL HISTORY: soa COMPARISON: 10/14/2024 FINDINGS: A portable view of the chest was obtained. Cardiac and mediastinal silhouettes are within normal limits. There is no change in the left-sided pacemaker. There is new right basilar opacity and right effusion, favor pneumonia. There is no pneumothorax.. IMPRESSION: New right basilar opacity and effusion, favor pneumonia. Recommend continued follow-up to resolution. Reviewed, Interpreted and Dictated by Jacqueline Medina MD Transcribed by eNda Francisco Authenticated and [facility]
[2025-01-17 09:01] LABS: Basophils % 0.2 % (0.1-2.0); Eosinophils # 0.1 K/mm3 (0.0-0.4); Eosinophils % 1.2 % (0.1-12.0); Hematocrit 33.7 % (37.0-47.0); Hemoglobin 10.6 g/dL (12.2-16.2); Lymphocytes % 11.4 % (10-50); Mean Corpuscular HGB Conc 31.5 g/dL (31.8-35.4); Mean Corpuscular Hemoglobin 26.5 pg (27.0-31.2); Mean Corpuscular Volume 84.3 fl (81-99); Mean Platelet Volume 9.3 fl (7.4-10.4); Monocytes # 0.7 K/mm3 (0.1-1.0); Neutrophils # 6.6 K/mm3 (1.8-7.8); Neutrophils % 78.8 % (37.0-80.0); Nucleated Red Blood Cells # 0 10^3/uL; Nucleated Red Blood Cells % 0 %; Platelet Count 124 K/mm3 (142-424); Red Cell Distribution Width 19.8 % (11.5-17.5); Red Cell Distribution Width-SD 61.4 fL; White Blood Count 8.4 K/mm3 (4.8-10.8)
[2025-01-17 09:13] LABS: Prothrombin Time 15.2 seconds (10.1-12.5)
[2025-01-17 09:15] LABS: Albumin Level 3.8 g/dl (3.5-5.0); Chloride 98 mmol/L (98-107); Sodium 138 mmol/L (136-145)
[2025-01-17 09:16] LABS: Potassium 4.3 mmoL/L (3.5-5.1)
[2025-01-17 09:18] LABS: Alanine Aminotransferase 13 U/L (12-78); Alkaline Phosphatase 146 U/L (38-126); Anion Gap 13.3 mEq/L (5-15); Aspartate Amino Transferase 34 U/L (14-36); Bilirubin,Total 1.7 mg/dl (0.2-1.3); Blood Urea Nitrogen 32 mg/dl (7-17); Carbon Dioxide 31 mmol/L (22.0-30.0); Creatinine Clearance Estimated 34 mL/min (50-200); Estimated Glomerular Filt Rate 42 ml/min (>60); GFR (African American) 51 ML/MIN (>60)
[2025-01-17 09:19] LABS: Calcium 9.1 mg/dl (8.4-10.2); Globulin 3.7 g/dL (1.3-3.2); Glucose 118 mg/dl (74-100); Magnesium 1.5 mg/dl (1.6-2.3); Total Protein,Serum 7.5 g/dl (6.3-8.2)
[2025-01-17 09:40] LABS: Troponin I < 0.01 ng/ml (0.00-0.034)
--- NOTE | 2025-01-17 09:59 | PC.NURSE ---
PT GONE TO CT VIA STRETCHER
[2025-01-17] MEDS: SODIUM CHLORIDE 0.9% 10ML SYR (RAD ONLY) 10 ML IV (10:09)
[2025-01-17] MEDS: IOPAMIDOL-370 (76%);100ML BOTTLE 70 ML IV (10:09)
[2025-01-17] MEDS: 0.9 % SODIUM CHLORIDE 50 ML VIAL 40 ML IV (10:09)
--- NOTE | 2025-01-17 10:31 | PC.NURSE ---
purewick placed at this time
[2025-01-17] MEDS: MAGNESIUM SULFATE IN WATER 2 GM/50 ML PIGGYBACK IV ×2 (10:34→18:31)
--- NOTE | 2025-01-17 11:09 | PC.NURSE ---
I rounded on the pt. no new complaints at this time. no needs voiced. call baeza in reach.
[2025-01-17] MEDS: FUROSEMIDE 40MG/4ML VIAL 40 MG IV (11:29)
--- NOTE | 2025-01-17 11:33 | PC.NURSE ---
I rounded on the pt. Family is bedside with her. no needs voiced. no new complaints. call baeza in reach.
--- NOTE | 2025-01-17 11:41 | PC.NURSE ---
call made to housekeeping/laundry for admission
--- NOTE | 2025-01-17 11:42 | EXP.HP ---
History of Present Illness *Admission Date: 01/17/25 *Reason for visit:: Dyspnea *History of present illness: Ms. Mallory is an 89-year-old female with past medical history of insulin-dependent diabetes, CKD 3, CAD, A-fib, pacemaker in situ, heart failure with preserved ejection fraction, cirrhosis with ascites. He presented to the ED due to worsening shortness of breath. Has been residing at [facility] since October. Broke her hip in October after a fall, was at [facility] for short period of time and transition to [facility] for further care. Was recently resumed on her diuretics over the past week due to worsening edema. Has had adjustments to her fluid regimen over the past several months due to THANH and changing fluid status. Was satting 84% on room air at the longterm today. Brought to the ED and found to have respiratory distress. Chest imaging showing worsening right-sided effusion. Elevated BNP. Initiated on diuretics and medicine consulted for further management. On arrival to the floor, patient was evaluated and found to have mild respiratory distress but stable on room air at this time. Responding well to diuretics. Received a total of 120 mg IV Lasix in the ED. Family at bedside is very adamant that patient's medication regimen not be changed and expressed concern about previous adjustments at admissions over the past year. Seem to have limited understanding about patient's tenuous status and need to adjust medications occasionally. States she has been on a stable regimen but also reports that she has recently had diuretics resumed in the past week due to worsening volume status. Patient appears comfortable and is pleasant on exam. She is alert and oriented x 4. Denies any chest pain. Does complain of some mild abdominal discomfort but no nausea or vomiting. Family help supplement history [facility] Disclaimer: The information contained in this section may have been updated after the patient was seen, as this information can be updated by other users. Medical History (Updated 01/17/25 @ 18:00 by Armando Greer MD) Acute on chronic heart failure with preserved ejection fraction (HFpEF) COPD (chronic obstructive pulmonary disease) Major depressive disorder with single episode Heart failure Myocardial infarct, old Pacemaker Hypothyroid Fall Chronic Kidney Disease Splenomegaly Cirrhosis of liver Ascites Seasonal allergies Hyperlipemia Hypertension Aneurysm of splenic artery Acute hyperkalemia Arthritis History of gastroesophageal reflux (GERD) Diabetes mellitus, type 2 History of cataract History of left heart catheterization (LHC) Gastritis PAF (paroxysmal atrial fibrillation) DKA (diabetic ketoacidosis) Lactose intolerance 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 Anemia Cardiac pacemaker in situ SSS (sick sinus syndrome) Coronary artery disease Surgical History Hx of cardiac cath Closed intertrochanteric fracture of left hip (~10/2024) History of esophagogastroduodenoscopy (EGD) Hx of tonsillectomy History of colonoscopy History of hysterectomy History of appendectomy History of cholecystectomy Family History Other Family history of cancer Social History (Updated 01/17/25 @ 13:57 by Nga Kline RN) Smoking Status: Unknown if ever smoked second hand exposure: No alcohol intake: never substance use type: denies use current occupational status: disabled Travel in the last 8 weeks: None household members: family housing: house caffeine: No Have you lived/traveled outside US in past 30 days?: No Contact w/someone who lives/traveled outside US past 30 days?: No Exposure to someone with infectious disease in past 14 days?: No Do you have a fever (greater than 100.4 F or 38 C)?: No Have you tested positive for COVID-19: No Exposed to someone with COVID-19 in past 14 days?: No Do you have a sore throat?: No Do you have a cough?: No Do you have any weakness?: No Are you experiencing any nausea/vomitting?: No Do you have any diarrhea?: No Are you experiencing any unusual bleeding?: No Do you have any muscle aches/pain?: No Do you have any abdominal pain?: No Are you experiencing loss of taste or smell?: No Other Medical History Have you received the Flu Vaccine for this season: No Have you received the Pneumonia Vaccine: No Meds Home Medications and Allergies Home Medications ?Medication ?Instructions ?Recorded ?Confirmed ?Type multivitamin-ferrous 1 each PO DAILY 08/18/21 01/17/25 History fumarate-folic acid 18 mg-400 mcg tablet nitroglycerin 0.4 mg sublingual 0.4 mg sublingual Q5M PRN chest 12/20/23 01/17/25 Rx tablet pain #30 tabs atorvastatin 40 mg tablet 40 mg PO HS 90 days #90 tabs 09/04/24 01/17/25 Rx levothyroxine 50 mcg tablet 50 mcg PO DAILY 10/13/24 01/17/25 History mirabegron 25 mg tablet,extended 25 mg PO DAILY 10/13/24 01/17/25 History release 24 hr (Myrbetriq) omeprazole 40 mg capsule,delayed 40 mg PO DAILY 10/13/24 01/17/25 History release rivaroxaban 15 mg tablet (Xarelto) 15 mg PO HS 10/13/24 01/17/25 History sertraline 100 mg tablet 100 mg PO DAILY 10/13/24 01/17/25 History ferrous gluconate 324 mg (38 mg 324 mg PO BID 30 days #0 tabs 10/18/24 01/17/25 Rx iron) tablet lactulose 20 gram/30 mL oral 10 g (15 mL) PO BID 30 days #900 mL 10/18/24 01/17/25 Rx solution metoprolol tartrate 50 mg tablet 25 mg (1/2 x 50 mg) PO BID 30 days 10/18/24 01/17/25 Rx #30 tabs polyethylene glycol 3350 17 17 g PO DAILY #510 grams 10/18/24 01/17/25 Rx gram/dose oral powder (Miralax) sodium bicarbonate 325 mg tablet 325 mg PO BID 30 days #60 tabs 10/18/24 01/17/25 Rx insulin glargine 100 unit/mL (3 15 unit (0.15 mL) SQ BID 60 days 11/14/24 01/17/25 Rx mL) subcutaneous pen (Lantus #18 mL Solostar U-100 Insulin) furosemide 40 mg tablet (Lasix) 40 mg PO DAILY #30 tabs 11/21/24 01/17/25 Rx hydrocodone 7.5 mg-acetaminophen 1 tab PO QID PRN pain #120 tabs 12/18/24 01/17/25 Rx 325 mg tablet budesonide 160 mcg-glycopyr 9 2 inh inhalation BID #10.7 grams 01/16/25 01/17/25 Rx mcg-formot 4.8 mcg/actuation HFA inhaler (Breztri Aerosphere) artificial tears solution eye drops 1 drp ophthalmic (eye) TID 01/17/25 01/17/25 History clopidogrel 75 mg tablet 75 mg PO DAILY 01/17/25 01/17/25 History fluticasone propionate 50 1 spray intranasal DAILY 01/17/25 01/17/25 History mcg/actuation nasal spray,suspension insulin lispro 100 unit/mL 0 sliding scale dose SQ TID 01/17/25 01/17/25 History subcutaneous pen (Humalog KwikPen (U-100) Insulin) lidocaine 4 % topical patch 1 patch topical DAILY 01/17/25 01/17/25 History (Lidocaine Pain Relief) mecobalamin (vitamin B12) 5,000 5,000 mcg PO DAILY 01/17/25 01/17/25 History mcg chewable tablet metolazone 5 mg tablet 5 mg PO DAILY 01/17/25 01/17/25 History ondansetron HCl 4 mg tablet 4 mg PO Q6HP PRN Nausea And 01/17/25 01/17/25 History Vomiting potassium chloride 10 mEq 20 meq PO DAILY 01/17/25 01/17/25 History capsule,extended release spironolactone 25 mg tablet 25 mg PO DAILY 01/17/25 01/17/25 History New Prescriptions to Start Prescriptions: Allergies Allergy/AdvReac Type Severity Reaction Status Date / Time methylprednisolone AdvReac Mild Elevated Verified 01/17/25 14:07 glucose Exam Data for Last 24 hours Vital signs and Labs for Last 24 Hours: Temp Pulse Resp BP Pulse Ox O2 Del Method 98.5 F 81 12 97/61 L 90 L Room Air 01/17/25 08:38 01/17/25 11:00 01/17/25 11:00 01/17/25 11:00 01/17/25 11:00 01/17/25 11:00 Laboratory Results - last 24 hr 01/17/25 08:40: WBC 8.4, RBC 4.00 L, Hgb 10.6 L, Hct 33.7 L, MCV 84.3, MCH 26.5 L, MCHC 31.5 L, RDW 19.8 H, Plt Count 124 L, MPV 9.3, Neut % (Auto) 78.8, Lymph % (Auto) 11.4, Mills % (Auto) 8.0, Eos % (Auto) 1.2, Baso % (Auto) 0.2, Neut # (Auto) 6.6, Lymph # (Auto) 1.0, Mills # (Auto) 0.7, Eos # (Auto) 0.1, Baso # (Auto) 0.0, PT 15.2 H, INR 1.40 H, Sodium 138, Potassium 4.3, Chloride 98, Carbon Dioxide 31 H, Anion Gap 13.3, BUN 32 H, Creatinine 1.20 H, Estimated Creat Clear 34, Estimated GFR 42 L, Est GFR ( Amer) 51 L, Glucose 118 H, Calcium 9.1, Magnesium 1.5 L, Total Bilirubin 1.7 H, AST 34, ALT 13, Alkaline Phosphatase 146 H, Troponin I < 0.01, Total Protein 7.5, Albumin 3.8, Globulin 3.7 H, Albumin/Globulin Ratio 1.0 L I & O for Last 24 hours: Intake & Output 01/14/25 01/15/25 01/16/25 01/17/25 23:59 23:59 23:59 23:59 Weight 65.317 kg Constitutional Constitutional: mild distress, average body habitus, chronically ill appearing and cooperative *Routine HEENT Exam Head: Present normocephalic Eye: Present EOMI ENT: Present mucous membranes moist Comments: Does not make eye contact, visually impaired *Routine Neck Exam Neck: Present supple; Absent lymphadenopathy *Routine Respiratory Exam Respiratory: Present crackles (Bases bilaterally) and diminished air movement (worse on right.); Absent rhonchi or wheezes *Routine Cardiovascular Exam Cardiovascular: Present irregularly irregular *Routine Abdominal Exam Abdominal: Present soft, normoactive bowel sounds and distended (Mild, not tight); Absent tenderness, rebound or guarding *Routine Rectal Exam Rectal:: deferred *Routine Genitalia Exam Genitalia:: deferred *Routine Extremities Exam Extremities: Present edema (2+ to thigh); Absent cyanosis or clubbing *Routine Skin Exam Skin: Present intact and warm; Absent rash *Routine Neurological Exam Neurological: Present alert, oriented X3 and moving all extremities; Absent altered mental status Assessment and Plan *Assessment and plan (1) Acute on chronic heart failure with preserved ejection fraction (HFpEF): Status: Acute Category: Medical Code(s): I50.33 - Acute on chronic diastolic (congestive) heart failure (2) COPD (chronic obstructive pulmonary disease): Status: Acute Category: Medical Code(s): J44.9 - Chronic obstructive pulmonary disease, unspecified (3) Severe protein-calorie malnutrition: Status: Acute Category: Medical Code(s): E43 - Unspecified severe protein-calorie malnutrition (4) Cirrhosis: Status: Acute Qualifiers: Ascites presence: with ascites Hepatic cirrhosis type: unspecified hepatic cirrhosis Qualified Code(s): K74.60 - Unspecified cirrhosis of liver; R18.8 - Other ascites Category: Medical Code(s): K74.60 - Unspecified cirrhosis of liver (5) Ascites: Status: Acute Category: Medical Code(s): R18.8 - Other ascites (6) Pleural effusion: Status: Acute Category: Medical Code(s): J90 - Pleural effusion, not elsewhere classified (7) Atrial fibrillation: Status: Acute Qualifiers: Atrial fibrillation type: unspecified chronic Qualified Code(s): I48.20 - Chronic atrial fibrillation, unspecified Category: Medical Code(s): I48.91 - Unspecified atrial fibrillation (8) Diabetes mellitus, type 2: Status: Acute Category: Medical Code(s): E11.9 - Type 2 diabetes mellitus without complications Plan 89-year-old female with PMHx of IDDM, CKD, CAD, Afib, pacemaker in situ, heart failure preserved ejection fraction, cirrhosis with ascites and anasarca. She presented to the ER with worsening shortness of breath. Imaging concerning for volume overload with increased right sided effusion. Elevated BNP. Hypoxic initially on arrival. Discussed case with ER physician, request admission for diuresis and further management of acute on chronic HFpEF. I agreed to admit for further care. Family at bedside. Family very concerned about medication adjustments. Has not been placed in the past with adjustments to medications. Expressed their desire to address the problem at hand with her volume/fluid overload but not make any other changes. Explained that we would be very cautious about changes and communicate thoroughly before making changes. They stated comfort with this plan. Necessitating inpatient care. Close monitoring of output. Problems addressed as follows: Acute on chronic HFpEF A-fib Hyperlipidemia CAD -Aggressive diuresis. Received 120 mg Lasix in the ED. Having good urine output at this time. Strict ins and outs - Kidney function essentially baseline with BUN 32, creatinine 1.2. Potassium 4.3. Magnesium 1.5. Will replace per protocol. BNP elevated at 3490. -Transition Lasix to oral for the morning, 80 mg twice daily. Increase spironolactone to 50 mg daily - Repeat CBC, CMP, magnesium ordered for the morning - Review of chart with Last echo performed in January 2024. Shows normal LV function. Severe RV dilation with severe TR. ECHO showed grade II diastolic dysfunction with preserved EF - Continue metoprolol tartrate 25 mg twice daily for rate control. - Continue Xarelto 15 mg nightly Chronic anemia. - Hemoglobin better than previous at 10.6. Platelets 124. No indication for transfusion. Threshold hemoglobin less than 7 Cirrhosis of the liver Aneurism of the splenic: Recurring ascites - Intermittent paracenteses since last admission. -No indication for paracentesis at this time. Scheduled for outpatient ultrasound and possible paracentesis next week. Monitor for improvement with diuresis. - Patient has SUMMERS score of F2-bridging fibrosis; Child Krueger B Hypothyroid: Continue levothyroxine 50 mcg daily, repeat TSH ordered for the morning IDDM: accucheck before meal Continue home Lantus 15 units twice daily last A1c 9.7 in October, repeat ordered for the morning. sliding scale insulin with meals and at bedtime DNR/DNI Resume Xarelto Cardiac diet
[2025-01-17 11:47] LABS: NT Pro Brain Natriuretic Pep. 3490 pg/mL (0-450)
[2025-01-17 11:55] LABS: Procalcitonin 0.073 ng/mL (0.0-2.0)
[2025-01-17] MEDS: FUROSEMIDE 100MG/10ML VIAL 80 MG IV (11:55)
--- NOTE | 2025-01-17 12:00 | PC.NURSE ---
Pt tba, family updated on POC.
--- NOTE | 2025-01-17 12:21 | PC.NURSE ---
Report called to BRANDYN Luna @ [id number]. Room is being cleaned @ this time.
[2025-01-17 12:31] LABS: Troponin I < 0.01 ng/ml (0.00-0.034)
--- NOTE | 2025-01-17 12:57 | PC.NURSE ---
Called to check on the status of the pts room, it is drying at this time per Raiza.
--- NOTE | 2025-01-17 13:16 | PC.NURSE ---
Pt transported to floor via stretcher by med/surg staff @ this time
--- NOTE | 2025-01-17 13:16 | PC.NURSE ---
Pt transported to floor via stretcher by floor staff.
--- NOTE | 2025-01-17 13:19 | PC.NURSE ---
arrived by stretcher from ED
--- NOTE | 2025-01-17 14:52 | P.CONPHA_ITS ---
Pharmacy Intervention Comments: home medication list verified using list from senior care
--- NOTE | 2025-01-17 14:52 | HMH.PHAINT1 ---
Pharmacy Intervention Comments: home medication list verified using list from care home
[2025-01-17 16:05] LABS: Troponin I < 0.01 ng/ml (0.00-0.034)
--- NOTE | 2025-01-17 16:39 | ECG_ITS ---
APPROVED REPORT Exam: Resting ECG HR:104 bpm ECG Measurements Heart Rate 104 AXES QRSd 90 QRS 87 QT 323 T -45 QTc 383 Conclusion ATRIAL FIBRILLATION WITH RAPID VENTRICULAR RESPONSE MINIMAL ST DEPRESSION [0.025+ mV ST DEPRESSION] ABNORMAL QRS-T ANGLE [QRS-T AXIS DIFFERENCE > 60] ABNORMAL ECG UNCONFIRMED REPORT Electronically signed by : Alexy Rivera MD 01/18/2025 08:42:03
[2025-01-17] MEDS: MULTIVITAMIN TABLET 1 EACH PO (17:21)
[2025-01-17] MEDS: RIVAROXABAN 15MG TABLET 15 MG PO (17:21)
--- NOTE | 2025-01-17 17:46 | PC.NURSE ---
pt resting supine in bed with family at bedside. daughter very involved in patient care and POC decision making. pt tolerating RA with sats >90%. pt is a.fib rvr on tele- hospitalist aware. diuretics given per mar with increased output. see i &o. purewick in place. DNR signed and on the chart per pt wishes. pt has no complaints of pain at this time. no needs expressed. call light within reach. bed in low and locked position.
[2025-01-17] MEDS: PANTOPRAZOLE 40MG TABLET 40 MG PO (20:02)
[2025-01-17] MEDS: SODIUM BICARBONATE 650MG TABLET 325 MG PO (20:03)
[2025-01-17] MEDS: FERROUS SULFATE 325MG TABLET 325 MG PO (20:03)
[2025-01-17] MEDS: LACTULOSE 20GM/30ML UDC 10 GM PO (20:04)
[2025-01-17] MEDS: METOPROLOL TARTRATE 50MG TABLET 25 MG PO (20:08)
[2025-01-17] MEDS: INSULIN GLARGINE 100 UNITS/ML 3ML FLEXPEN 15 UNIT SUBCUT (20:09)
[2025-01-17] MEDS: ARTIFICIAL TEARS SOLN 15ML BOTTLE OP (20:09)
[2025-01-17] MEDS: ATORVASTATIN 40MG TABLET 40 MG PO (20:11)
[2025-01-17] MEDS: humaLOG 100 UNITS/ML 10ML VIAL (SSI) SUBCUT (20:11)
[2025-01-17 20:14] LABS: POC Glucose,Bedside 202 (70-110)
[2025-01-17] MEDS: LEVALBUTEROL 1.25MG/3ML NEB 1.25 MG IH (21:33)
[2025-01-18] VITALS (9 sets, daily range): BP systolic 96–156; BP diastolic 51–99; PULSE 100–134; RESP 16–20; TEMP 36.4–37.5; O2SAT 93–99; BMI 25.7
--- NOTE | 2025-01-18 02:29 | PC.NURSE ---
Pt AOx4. 97% on room air. Pt reported coughing and SOA earlier in shift, received one time breathing treatment. Pt resting in bed with eyes closed. Respirations even and unlabored. Continuous pulse ox. Bed is low, locked, and call light is in reach.
[2025-01-18 05:00] LABS: POC Glucose,Bedside 192 (70-110)
[2025-01-18] MEDS: humaLOG 100 UNITS/ML 10ML VIAL (SSI) SUBCUT ×3 (05:24→20:56)
[2025-01-18] MEDS: LEVOTHYROXINE 50MCG (0.05MG) TAB 50 MCG PO (06:06)
[2025-01-18 06:57] LABS: Basophils % 0.3 % (0.1-2.0); Eosinophils # 0.1 K/mm3 (0.0-0.4); Eosinophils % 0.8 % (0.1-12.0); Hematocrit 31.7 % (37.0-47.0); Lymphocytes # 0.6 K/mm3 (0.7-4.5); Mean Corpuscular HGB Conc 31.5 g/dL (31.8-35.4); Mean Corpuscular Hemoglobin 26.2 pg (27.0-31.2); Mean Platelet Volume 9.7 fl (7.4-10.4); Monocytes # 0.6 K/mm3 (0.1-1.0); Monocytes % 9.2 % (1.7-9.3); Neutrophils # 4.9 K/mm3 (1.8-7.8); Neutrophils % 79.4 % (37.0-80.0); Nucleated Red Blood Cells # 0 10^3/uL; Nucleated Red Blood Cells % 0 %; Platelet Count 112 K/mm3 (142-424); Red Blood Count 3.82 M/mm3 (4.20-5.40); Red Cell Distribution Width 19.9 % (11.5-17.5); Red Cell Distribution Width-SD 59.8 fL; White Blood Count 6.2 K/mm3 (4.8-10.8)
[2025-01-18 07:10] LABS: Albumin Level 3.6 g/dl (3.5-5.0); Chloride 94 mmol/L (98-107); Sodium 135 mmol/L (136-145)
[2025-01-18 07:11] LABS: Potassium 4.1 mmoL/L (3.5-5.1)
[2025-01-18 07:13] LABS: Alanine Aminotransferase 14 U/L (12-78); Alkaline Phosphatase 149 U/L (38-126); Anion Gap 17.1 mEq/L (5-15); Aspartate Amino Transferase 45 U/L (14-36); Bilirubin,Total 1.3 mg/dl (0.2-1.3); Blood Urea Nitrogen 33 mg/dl (7-17); Carbon Dioxide 28 mmol/L (22.0-30.0); Creatinine Clearance Estimated 38 mL/min (50-200); Estimated Glomerular Filt Rate 47 ml/min (>60); GFR (African American) 57 ML/MIN (>60); Globulin 3.6 g/dL (1.3-3.2); Total Protein,Serum 7.2 g/dl (6.3-8.2)
[2025-01-18 07:14] LABS: Calcium 8.9 mg/dl (8.4-10.2); Glucose 139 mg/dl (74-100); Magnesium 2.1 mg/dl (1.6-2.3)
[2025-01-18 07:43] LABS: Thyroid Stimulating Hormone 3.37 uIU/mL (0.465-4.68)
--- NOTE | 2025-01-18 07:57 | SW/DCPLANNER ---
Patient currently resides at [facility] level of care. I will continue to follow up w/ Trin[facility] until patient is medically stable for discharge. Discharge date is unknown at this time.
--- NOTE | 2025-01-18 08:41 | EXP.ACUTE.PN ---
Subjective *Date: 01/18/25 *Time: 18:26 Interval history: Showing good response to diuresis. -2 L since admitted. Stable on room air. No nausea or vomiting. Patient feels better. More alert today. Family at bedside and updated of plan. Continues to remain in A-fib, discussed increasing her metoprolol today. Patient family amenable. Medical Exam Vital signs and Labs for Last 24 Hours: Vital Signs Temp Pulse Pulse Resp BP BP Pulse Ox 01/18/25 06:25 01/18/25 05:00 01/18/25 04:00 98.3 F 125 H 18 156/99 H 98 01/18/25 04:00 100 H 01/18/25 03:00 01/18/25 01:00 01/18/25 00:00 100 H 01/18/25 00:00 97.9 F 116 H 17 107/66 L 93 L 01/17/25 23:00 01/17/25 21:34 105 H 01/17/25 21:34 106 H 01/17/25 21:00 01/17/25 20:00 110 H 01/17/25 20:00 98.3 F 124 H 18 107/70 L 97 01/17/25 20:00 01/17/25 18:42 01/17/25 17:00 01/17/25 16:47 90 01/17/25 16:00 97.8 F 118 H 18 116/72 99 01/17/25 15:00 01/17/25 13:18 98.0 F 98 H 20 118/61 93 L 01/17/25 13:14 98 F 97 H 19 118/61 01/17/25 13:00 01/17/25 12:30 120 H 20 105/64 L 96 01/17/25 12:22 01/17/25 12:01 102 H 17 120/82 95 01/17/25 11:30 93 H 12 100/62 L 94 L 01/17/25 11:00 81 12 97/61 L 90 L 01/17/25 10:30 125 H 17 114/76 93 L 01/17/25 09:31 102 H 18 109/64 L 94 L 01/17/25 09:00 115 H 20 122/75 96 O2 Del Method O2 Flow Rate 01/18/25 06:25 Room Air 01/18/25 05:00 Room Air 04/17/25 04:00 Room Air 01/18/25 04:00 01/18/25 03:00 Room Air 01/18/25 01:00 Room Air 01/18/25 00:00 01/18/25 00:00 Room Air 01/17/25 23:00 Room Air 01/17/25 21:34 01/17/25 21:34 01/17/25 21:00 Room Air 01/17/25 20:00 01/17/25 20:00 Room Air 01/17/25 20:00 Room Air 01/17/25 18:42 Room Air 01/17/25 17:00 Room Air 01/17/25 16:47 01/17/25 16:00 Room Air 01/17/25 15:00 Room Air 01/17/25 13:18 Room Air 01/17/25 13:14 Room Air 01/17/25 13:00 Nasal Cannula 2 01/17/25 12:30 Room Air 01/17/25 12:22 Room Air 01/17/25 12:01 Room Air 01/17/25 11:30 Room Air 01/17/25 11:00 Room Air 01/17/25 10:30 Room Air 01/17/25 09:31 Room Air 01/17/25 09:00 Room Air Intake and Output 01/17/25 01/18/25 01/18/25 23:59 07:59 15:59 Intake Total 270 / 750 Output Total 850 / 2300 1000 / 1000 Balance -580 / -1550 -1000 / -1000 Intake: Intake, Oral Amount 270 / 750 Output: Output, Urine Amount 850 / 2300 1000 / 1000 Other: Number of Unmeasured Voids 0 1 Weight 65.952 kg Patient Weight 01/18/25 23:59 Weight 65.952 kg Laboratory Results - last 24 hr 01/17/25 08:40: WBC 8.4, RBC 4.00 L, Hgb 10.6 L, Hct 33.7 L, MCV 84.3, MCH 26.5 L, MCHC 31.5 L, RDW 19.8 H, Plt Count 124 L, MPV 9.3, Neut % (Auto) 78.8, Lymph % (Auto) 11.4, [place] % (Auto) 8.0, Eos % (Auto) 1.2, Baso % (Auto) 0.2, Neut # (Auto) 6.6, Lymph # (Auto) 1.0, [place] # (Auto) 0.7, Eos # (Auto) 0.1, Baso # (Auto) 0.0, PT 15.2 H, INR 1.40 H, Sodium 138, Potassium 4.3, Chloride 98, Carbon Dioxide 31 H, Anion Gap 13.3, BUN 32 H, Creatinine 1.20 H, Estimated Creat Clear 34, Estimated GFR 42 L, Est GFR ( Amer) 51 L, Glucose 118 H, Calcium 9.1, Magnesium 1.5 L, Total Bilirubin 1.7 H, AST 34, ALT 13, Alkaline Phosphatase 146 H, Troponin I < 0.01, Total Protein 7.5, Albumin 3.8, Globulin 3.7 H, Albumin/Globulin Ratio 1.0 L 01/17/25 08:49: NT-Pro-B Natriuret Pep 3490 H, Procalcitonin 0.073 01/17/25 11:55: Troponin I < 0.01 01/17/25 15:05: Troponin I < 0.01 01/17/25 19:49: POC Glucose 202 H 01/18/25 04:54: POC Glucose 192 H 01/18/25 06:24: WBC 6.2 D, RBC 3.82 L, Hgb 10.0 L, Hct 31.7 L, MCV 83.0, MCH 26.2 L, MCHC 31.5 L, RDW 19.9 H, Plt Count 112 L, MPV 9.7, Neut % (Auto) 79.4, Lymph % (Auto) 10.0, [place] % (Auto) 9.2, Eos % (Auto) 0.8, Baso % (Auto) 0.3, Neut # (Auto) 4.9, Lymph # (Auto) 0.6 L, [place] # (Auto) 0.6, Eos # (Auto) 0.1, Baso # (Auto) 0.0, Sodium 135 L, Potassium 4.1, Chloride 94 L, Carbon Dioxide 28, Anion Gap 17.1 H, BUN 33 H, Creatinine 1.10 H, Estimated Creat Clear 38, Estimated GFR 47 L, Est GFR ( Amer) 57 L, Glucose 139 H, Calcium 8.9, Magnesium 2.1 D, Total Bilirubin 1.3, AST 45 H D, ALT 14, Alkaline Phosphatase 149 H, Total Protein 7.2, Albumin 3.6, Globulin 3.6 H, Albumin/Globulin Ratio 1.0 L, TSH 3.37 I & O for Labs for Last 24 Hours: Intake & Output 01/15/25 01/16/25 01/17/25 01/18/25 23:59 23:59 23:59 23:59 Intake Total 750 / 750 Output Total 1700 / 2300 1000 / 1000 Balance -950 / -1550 -1000 / -1000 Weight 66.366 kg 65.952 kg Constitutional: Present no acute distress, average body habitus, chronically ill appearing and cooperative Head: Present atraumatic and normocephalic ENT: Present normal exam Neck: Present normal inspection Respiratory: Present normal respiratory effort; Absent rhonchi, wheezes or crackles Cardiac: Present Tachycardia Comment:: Irregularly irregular GI: Present soft and normal bowel sounds; Absent distention or tenderness Extremities: Present normal inspection, full ROM and edema (1+ in bilateral lower extremities) Skin: Present intact; Absent erythema Neuro: Present Grossly Intact, alert, awake, oriented x 3 and moves all extremities Comment:: Vision impaired Assessment and Plan *Assessment and plan (1) Acute on chronic heart failure with preserved ejection fraction (HFpEF): Status: Acute Category: Medical Code(s): I50.33 - Acute on chronic diastolic (congestive) heart failure (2) COPD (chronic obstructive pulmonary disease): Status: Acute Category: Medical Code(s): J44.9 - Chronic obstructive pulmonary disease, unspecified (3) Severe protein-calorie malnutrition: Status: Acute Category: Medical Code(s): E43 - Unspecified severe protein-calorie malnutrition (4) Cirrhosis: Status: Acute Qualifiers: Hepatic cirrhosis type: unspecified hepatic cirrhosis Ascites presence: with ascites Qualified Code(s): K74.60 - Unspecified cirrhosis of liver; R18.8 - Other ascites Category: Medical Code(s): K74.60 - Unspecified cirrhosis of liver (5) Ascites: Status: Acute Category: Medical Code(s): R18.8 - Other ascites (6) Pleural effusion: Status: Acute Category: Medical Code(s): J90 - Pleural effusion, not elsewhere classified (7) Atrial fibrillation: Status: Acute Qualifiers: Atrial fibrillation type: unspecified chronic Qualified Code(s): I48.20 - Chronic atrial fibrillation, unspecified Category: Medical Code(s): I48.91 - Unspecified atrial fibrillation (8) Diabetes mellitus, type 2: Status: Acute Category: Medical Code(s): E11.9 - Type 2 diabetes mellitus without complications Plan 89-year-old female with PMHx of IDDM, CKD, CAD, Afib, pacemaker in situ, heart failure preserved ejection fraction, cirrhosis with ascites and anasarca. She presented to the ER with worsening shortness of breath. Imaging concerning for volume overload with increased right sided effusion. Elevated BNP. Hypoxic initially on arrival. Discussed case with ER physician, request admission for diuresis and further management of acute on chronic HFpEF. I agreed to admit for further care. Family at bedside. Family very concerned about medication adjustments. Has not been placed in the past with adjustments to medications. Expressed their desire to address the problem at hand with her volume/fluid overload but not make any other changes. Explained that we would be very cautious about changes and communicate thoroughly before making changes. They stated comfort with this plan. Necessitating inpatient care. Showing improvement with diuresis. -2 L since admission. Continue close monitoring. Anticipate discharge in the next day or 2. Problems addressed as follows: Acute on chronic HFpEF A-fib Hyperlipidemia CAD -Aggressive diuresis. Received 120 mg Lasix in the ED. Having good urine output at this time. Strict ins and outs - Continue Lasix 80 mg orally twice daily. Continue spironolactone 50mg daily -Kidney function remained stable with BUN 33, creatinine 1.1. Potassium 4.1, magnesium 2.1. Repeat CBC, CMP, magnesium ordered for the morning. -Stable on room air, goal sats greater 90%. - Review of chart with Last echo performed in January 2024. Shows normal LV function. Severe RV dilation with severe TR. ECHO showed grade II diastolic dysfunction with preserved EF - Increase metoprolol to tartrate to 37.5 mg twice daily due to heart rate in the 120s and 130s. - Continue Xarelto 15 mg nightly Chronic anemia. - Hemoglobin stable at 10. Platelets 112. No indication for transfusion. Threshold hemoglobin less than 7 Cirrhosis of the liver Aneurism of the splenic: Recurring ascites - Intermittent paracenteses since last admission. -No indication for paracentesis at this time. Scheduled for outpatient ultrasound and possible paracentesis next week. Monitor for improvement with diuresis. - Patient has SUMMERS score of F2-bridging fibrosis; Child Krueger B Hypothyroid: Continue levothyroxine 50 mcg daily, repeat TSH ordered for the morning IDDM: accucheck before meal; morning glucose 139 Continue home Lantus 15 units twice daily last A1c 9.7 in October, repeat ordered for the morning. sliding scale insulin with meals and at bedtime DNR/DNI Xarelto Cardiac diet
[2025-01-18] MEDS: FLUTICASONE PROP 50MCG NASAL SPRAY 16GM 1 SPRAY NS (08:45)
[2025-01-18] MEDS: FERROUS SULFATE 325MG TABLET 325 MG PO ×2 (08:45→20:57)
[2025-01-18] MEDS: CLOPIDOGREL 75MG TAB 75 MG PO (08:45)
[2025-01-18] MEDS: LACTULOSE 20GM/30ML UDC 10 GM PO ×2 (08:46→20:56)
[2025-01-18] MEDS: LIDOCAINE 5% TRANSDERMAL PATCH 1 EACH TD (08:46)
[2025-01-18] MEDS: INSULIN GLARGINE 100 UNITS/ML 3ML FLEXPEN 15 UNIT SUBCUT ×2 (08:46→20:56)
[2025-01-18] MEDS: METOPROLOL TARTRATE 50MG TABLET 25 MG PO (08:47)
[2025-01-18] MEDS: POLYETHYLENE GLYCOL 3350 238GM POWDER 17 GM PO (08:48)
[2025-01-18] MEDS: ARTIFICIAL TEARS SOLN 15ML BOTTLE OP ×3 (08:49→21:02)
[2025-01-18] MEDS: SODIUM BICARBONATE 650MG TABLET 325 MG PO ×2 (08:50→20:57)
[2025-01-18] MEDS: POTASSIUM CHLORIDE 10MEQ CAPSULE.ER 20 MEQ PO (08:50)
[2025-01-18] MEDS: SERTRALINE 100MG TABLET 100 MG PO (08:50)
[2025-01-18] MEDS: FUROSEMIDE 80 MG TABLET PO ×2 (08:51→17:06)
[2025-01-18] MEDS: SPIRONOLACTONE 25MG TABLET 50 MG PO (08:51)
[2025-01-18 09:14] LABS: Hemoglobin A1C 7.1 % (4.0-6.0)
[2025-01-18] MEDS: ONDANSETRON 4MG ODT 4 MG SL (09:59)
[2025-01-18 11:31] LABS: POC Glucose,Bedside 147 (70-110)
--- NOTE | 2025-01-18 12:00 | [facility]H.PTEV ---
Physical Therapy Evaluation Rehab PT IP Evaluation Start: 01/17/25 14:04 Freq: ONCE Status: Active Protocol: Document 01/18/25 09:10 KI (Rec: 01/18/25 12:00 KI [id number]) Subjective/History History History Ms. Mallory is an 89-year-old female with past medical history of insulin-dependent diabetes, CKD 3, CAD, A-fib, pacemaker in situ, heart failure with preserved ejection fraction, cirrhosis with ascites. Patient fell and broke her hip in October and has been residing at [facility] since. Pt was admitted to the hospital for diuresis and acute on chronic HFpEF. Prior to admission, patient has had limited ambulation mobility since her fall. Subjective Subjective Patient presented supine with nsg providing medication. Patient had a possible family member in the room. Patient was willing to participate in therapy to attempt ambulation. Patient was left seated in bedside chair with call light and personal items in reach. [facility] How much help from another person do you currently need... Turning from your back to your side A little while in a flat bed without using bedrails? Moving from lying on back to sitting on A little the side of a flat bed without using bedrails? Moving to and from a bed to a chair ( A little including a wheelchair)? Standing up from a chair using your arms A little ? (e.g., wheelchair, bedside chair) Walking in hospital room? A lot Climbing 3-5 steps with a railing? A lot Mobility Score 16 Mobility Level [facility] Mobility Calculator Mobility 5 Stand (1 or more minutes) Rehab PT IP Eval Objective Appearance Patient Behavior Appropriate,Cooperative Patient Orientation Person,Place,Time Difficulty following instructions none Speech Pattern Clear,Appropriate Ambulation Patient Able to Ambulate Yes Ambulation Observation IP General Gait Pattern Observation Shuffling Step Ambulation Distance (feet) 1 Ambulation Assistive Device Rolling Walker Ambulation Ability Minimal x 1 (25% assist) Balance Ability to Arise Able, uses arms to help Sitting Balance Steady, safe Standing Balance Steady, wide stance Dynamic Sitting Balance Ability Normal Dynamic Standing Balance Ability Good Transfers Bed Transfer Ability Moderate x 1 (50% assist) Chair Transfer Ability Minimal x 1 (25% assist) Sit to Stand Bed Transfer Ability Minimal x 1 (25% assist) Sit to Stand Chair Transfer Ability Minimal x 1 (25% assist) Rehab PT IP prob,goals,plan Problems Date of Evaluation: 01/18/25 PT IP Problems Bed Mobility,Transfers,Gait, Balance Rehab Potential Rehab Potential Good Equipment Needs Assistive Devices Rolling / Wheeled Walker Plan PT Intervention Plan Bed Mobility,Transfers,Gait, Balance,Therapeutic Exercise PT Plan Frequency Daily Duration LOS Discharge Goals Bed Transfer Ability Contact Guard/Hand Hold Sit to Stand Chair Transfer Ability Contact Guard/Hand Hold Ambulation Assistive Device Rolling Walker Ambulation Distance (feet) 5 Discharge Plan PT Discharge Plan Patient is currently most appropriate to discharge to a rehab facility in order to return to PLOF. Patient will benefit from skilled acute therapy in order to improve LE strength, mobility, and transfer ability in order to return pt to PLOF with walking household distances and all ADLs, and decrease caregiver burden. Eval Complexity Eval Charge Codes 21402 - High Complexity PHYSICIAN CERTIFICATION: I certify the specified therapy services for Kareen Mallory are required, authorized, and reviewed every 30 days.
--- NOTE | 2025-01-18 13:14 | PC.NURSE ---
canoe maker @ bedside
[2025-01-18] MEDS: IPRATROPIUM BROMIDE 0.5 MG/2.5ML SOLUTION IH ×2 (14:12→20:42)
[2025-01-18] MEDS: LEVALBUTEROL 1.25MG/3ML NEB 1.25 MG IH ×2 (14:12→20:42)
[2025-01-18 16:05] LABS: POC Glucose,Bedside 259 (70-110)
[2025-01-18] MEDS: MULTIVITAMIN TABLET 1 EACH PO (17:06)
[2025-01-18] MEDS: RIVAROXABAN 15MG TABLET 15 MG PO (17:06)
[2025-01-18 20:53] LABS: POC Glucose,Bedside 327 (70-110)
[2025-01-18] MEDS: ATORVASTATIN 40MG TABLET 40 MG PO (20:57)
[2025-01-18] MEDS: PANTOPRAZOLE 40MG TABLET 40 MG PO (20:57)
[2025-01-18] MEDS: METOPROLOL TARTRATE 25MG TABLET 37.5 MG PO (20:58)
[2025-01-19] VITALS: BP 103/50; PULSE 118; RESP 14; TEMP 36.9; O2SAT 94
[2025-01-19 04:00] VITALS: BP 109/60; PULSE 130; RESP 16; TEMP 36.8; O2SAT 93; BMI 25.0
--- NOTE | 2025-01-19 05:01 | PC.NURSE ---
Family at bedside. V/s ox4. Pt's HR monitored, and treated per MAR(a-fib RVR-provider aware). Blood glucose monitored. No acute events to report. Plan of care ongoing.
[2025-01-19] MEDS: IPRATROPIUM BROMIDE 0.5 MG/2.5ML SOLUTION IH ×2 (06:09→10:00)
[2025-01-19] MEDS: LEVALBUTEROL 1.25MG/3ML NEB 1.25 MG IH ×2 (06:09→10:00)
[2025-01-19 06:10] VITALS: PULSE 129; PULSE 132; O2SAT 90
[2025-01-19 06:32] LABS: POC Glucose,Bedside 186 (70-110)
[2025-01-19] MEDS: LEVOTHYROXINE 50MCG (0.05MG) TAB 50 MCG PO (06:39)
[2025-01-19] MEDS: humaLOG 100 UNITS/ML 10ML VIAL (SSI) SUBCUT ×2 (06:39→11:20)
[2025-01-19 06:48] LABS: Albumin Level 3.6 g/dl (3.5-5.0); Chloride 94 mmol/L (98-107)
[2025-01-19 06:49] LABS: Basophils % 0.3 % (0.1-2.0); Eosinophils # 0.1 K/mm3 (0.0-0.4); Hematocrit 30.9 % (37.0-47.0); Lymphocytes # 0.8 K/mm3 (0.7-4.5); Lymphocytes % 11.1 % (10-50); Mean Corpuscular HGB Conc 32.4 g/dL (31.8-35.4); Mean Corpuscular Hemoglobin 26.6 pg (27.0-31.2); Mean Corpuscular Volume 82.2 fl (81-99); Mean Platelet Volume 10.5 fl (7.4-10.4); Monocytes # 0.8 K/mm3 (0.1-1.0); Monocytes % 10.9 % (1.7-9.3); Neutrophils # 5.6 K/mm3 (1.8-7.8); Neutrophils % 76.4 % (37.0-80.0); Nucleated Red Blood Cells # 0 10^3/uL; Nucleated Red Blood Cells % 0 %; Platelet Count 149 K/mm3 (142-424); Potassium 4.1 mmoL/L (3.5-5.1); Red Blood Count 3.76 M/mm3 (4.20-5.40); Red Cell Distribution Width 19.7 % (11.5-17.5); Red Cell Distribution Width-SD 58.7 fL; Sodium 136 mmol/L (136-145); White Blood Count 7.3 K/mm3 (4.8-10.8)
[2025-01-19 06:51] LABS: Alanine Aminotransferase 14 U/L (12-78); Anion Gap 14.1 mEq/L (5-15); Aspartate Amino Transferase 39 U/L (14-36); Blood Urea Nitrogen 32 mg/dl (7-17); Carbon Dioxide 32 mmol/L (22.0-30.0); Creatinine Clearance Estimated 31 mL/min (50-200); Estimated Glomerular Filt Rate 39 ml/min (>60); GFR (African American) 47 ML/MIN (>60); Globulin 3.6 g/dL (1.3-3.2); Total Protein,Serum 7.2 g/dl (6.3-8.2)
[2025-01-19 06:52] LABS: Alkaline Phosphatase 170 U/L (38-126); Bilirubin,Total 1.2 mg/dl (0.2-1.3); Calcium 9.2 mg/dl (8.4-10.2); Glucose 146 mg/dl (74-100); Magnesium 1.8 mg/dl (1.6-2.3)
--- NOTE | 2025-01-19 07:12 | EXP.DC.SUM ---
General Admission date:: 01/17/25 Discharge date: 01/19/25 HPI HPI HPI: Ms. Mallory is an 89-year-old female with past medical history of insulin-dependent diabetes, CKD 3, CAD, A-fib, pacemaker in situ, heart failure with preserved ejection fraction, cirrhosis with ascites. He presented to the ED due to worsening shortness of breath. Has been residing at [facility] since October. Broke her hip in October after a fall, was at [facility] for short period of time and transition to [facility] for further care. Was recently resumed on her diuretics over the past week due to worsening edema. Has had adjustments to her fluid regimen over the past several months due to THANH and changing fluid status. Was satting 84% on room air at the group home today. Brought to the ED and found to have respiratory distress. Chest imaging showing worsening right-sided effusion. Elevated BNP. Initiated on diuretics and medicine consulted for further management. On arrival to the floor, patient was evaluated and found to have mild respiratory distress but stable on room air at this time. Responding well to diuretics. Received a total of 120 mg IV Lasix in the ED. Family at bedside is very adamant that patient's medication regimen not be changed and expressed concern about previous adjustments at admissions over the past year. Seem to have limited understanding about patient's tenuous status and need to adjust medications occasionally. States she has been on a stable regimen but also reports that she has recently had diuretics resumed in the past week due to worsening volume status. Patient appears comfortable and is pleasant on exam. She is alert and oriented x 4. Denies any chest pain. Does complain of some mild abdominal discomfort but no nausea or vomiting. Family help supplement history Hospital Course Hospital Course Hospital Course: 89-year-old female with PMHx of IDDM, CKD, CAD, Afib, pacemaker in situ, heart failure preserved ejection fraction, cirrhosis with ascites and anasarca. She presented to the ER with worsening shortness of breath. Imaging concerning for volume overload with increased right sided effusion. Elevated BNP. Hypoxic initially on arrival. Discussed case with ER physician, request admission for diuresis and further management of acute on chronic HFpEF. I agreed to admit for further care. Family at bedside. Family very concerned about medication adjustments. Has not been placed in the past with adjustments to medications. Expressed their desire to address the problem at hand with her volume/fluid overload but not make any other changes. Explained that we would be very cautious about changes and communicate thoroughly before making changes. They stated comfort with this plan. Necessitated ACQUISITION CONSULTANT care. Responded well to diuresis. Remained stable on room air. Adjustments made to diuretic regimen and rate controlling regimen. Stable at this time to discharge back to [facility] for further management. Problems addressed as follows: Acute on chronic HFpEF A-fib Hyperlipidemia CAD - Initiated on aggressive diuresis due to volume overload and effusion on chest imaging. Started on Lasix IV twice daily along with spironolactone. Had good response with negative over 2 L during admission. Transition to oral Lasix since lactic. Will can sinew to Lasix grams p.o. no twice daily, continue with low-salt 5 g, continue spironolactone 50 mg daily at discharge for edema and ascites management. Electrolytes remained stable with magnesium 1.8, potassium 4.1 on day of discharge. Kidney function at baseline BUN 32, creatinine 1.3. Needs repeat labs in 1 week with CBC, CMP, magnesium. - Review of chart with Last echo performed in January 2024. Shows normal LV function. Severe RV dilation with severe TR. ECHO showed grade II diastolic dysfunction with preserved EF - Rate uncontrolled during this visit. Heart rate up to the 130s and 140s at times. In A-fib. Increased metoprolol to 50 mg twice daily for improved rate control after discussion with family. Continue Xarelto 15 mg nightly for anticoagulation. Chronic anemia: Hemoglobin stable at 10. Platelets 149. No indication for transfusion. Threshold hemoglobin less than 7 Cirrhosis of the liver Aneurism of the splenic: Recurring ascites - Intermittent paracenteses since last admission. No indication for paracentesis at this time. Scheduled for outpatient ultrasound and possible paracentesis next week. Evaluated abdomen with bedside ultrasound on morning of discharge, has a small amount of ascites but no large pocket that would be safe to go after. Anticipate will have improved management of ascites and volume status with diuretics. Okay from my perspective to cancel appointment for next week for ultrasound and paracentesis. 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 Continue home Lantus 15 units twice daily. A1c 9.7 in October, better controlled this visit at 7.1. Currently tolerating regimen she is on. No adjustments Total time spent on discharge 40 minutes in counseling, documentation, chart review, and direct care with patient. Exam Data for Last 24 hours Vital signs and Labs for Last 24 Hours: Temp Pulse Resp BP Pulse Ox O2 Del Method O2 Flow Rate 98.2 F 129 H 16 109/60 L 90 L Room Air 2 01/19/25 04:00 01/19/25 06:10 01/19/25 04:00 01/19/25 04:00 01/19/25 06:10 01/19/25 06:33 01/17/25 13:00 Laboratory Results - last 24 hr 01/18/25 06:24: Sodium 135 L, Potassium 4.1, Chloride 94 L, Carbon Dioxide 28, Anion Gap 17.1 H, BUN 33 H, Creatinine 1.10 H, Estimated Creat Clear 38, Estimated GFR 47 L, Est GFR ( Amer) 57 L, Glucose 139 H, Hemoglobin A1c 7.1 H D, Calcium 8.9, Magnesium 2.1 D, Total Bilirubin 1.3, AST 45 H D, ALT 14, Alkaline Phosphatase 149 H, Total Protein 7.2, Albumin 3.6, Globulin 3.6 H, Albumin/Globulin Ratio 1.0 L, TSH 3.37 01/18/25 11:17: POC Glucose 147 H 01/18/25 15:56: POC Glucose 259 H 01/18/25 20:46: POC Glucose 327 H* 01/19/25 05:27: WBC 7.3, RBC 3.76 L, Hgb 10.0 L, Hct 30.9 L, MCV 82.2, MCH 26.6 L, MCHC 32.4, RDW 19.7 H, Plt Count 149 D, MPV 10.5 H, Neut % (Auto) 76.4, Lymph % (Auto) 11.1, [place] % (Auto) 10.9 H, Eos % (Auto) 1.0, Baso % (Auto) 0.3, Neut # (Auto) 5.6, Lymph # (Auto) 0.8, [place] # (Auto) 0.8, Eos # (Auto) 0.1, Baso # (Auto) 0.0, Sodium 136, Potassium 4.1, Chloride 94 L, Carbon Dioxide 32 H, Anion Gap 14.1, BUN 32 H, Creatinine 1.30 H, Estimated Creat Clear 31, Estimated GFR 39 L, Est GFR ( Amer) 47 L, Glucose 146 H, Calcium 9.2, Magnesium 1.8 D, Total Bilirubin 1.2, AST 39 H, ALT 14, Alkaline Phosphatase 170 H, Total Protein 7.2, Albumin 3.6, Globulin 3.6 H, Albumin/Globulin Ratio 1.0 L 01/19/25 06:17: POC Glucose 186 H I & O for Last 24 hours: Intake & Output 01/16/25 01/17/25 01/18/25 01/19/25 23:59 23:59 23:59 23:59 Intake Total 750 / 750 1480 / 1600 120 / 120 Output Total 1700 / 2300 1900 / 1900 650 / 650 Balance -950 / -1550 -420 / -300 -530 / -530 Weight 66.366 kg 65.95 kg 63.957 kg Constitutional Constitutional: no acute distress, average body habitus, chronically ill appearing and cooperative *Routine HEENT Exam Head: Present normocephalic Eye: Present EOMI and PERRL ENT: Present mucous membranes moist Comments: nystagmus *Routine Neck Exam Neck: Present supple; Absent lymphadenopathy *Routine Respiratory Exam Respiratory: Present CTA bilaterally and diminished air movement (in bases); Absent rhonchi, wheezes or crackles *Routine Cardiovascular Exam Cardiovascular: Present irregularly irregular *Routine Abdominal Exam Abdominal: Present soft, normoactive bowel sounds and distended (mild); Absent tenderness, rebound or guarding *Routine Rectal Exam Patient deferred: visual exam *Routine Exam Patient deferred: external exam *Routine Extremities Exam Extremities: Present edema (1+ in BLE); Absent cyanosis or clubbing *Routine Skin Exam Skin: Present intact and warm; Absent rash *Routine Neurological Exam Neurological: Present alert, oriented X3 and moving all extremities; Absent altered mental status Comments: visually impaired Results Data Completed and Pending Labs on day of discharge: Labs from last 24 hours 01/19/25 01/19/25 01/18/25 06:17 05:27 20:46 WBC 7.3 RBC 3.76 L Hgb 10.0 L Hct 30.9 L MCV 82.2 MCH 26.6 L MCHC 32.4 RDW 19.7 H Plt Count 149 D MPV 10.5 H Neut % (Auto) 76.4 Lymph % (Auto) 11.1 [place] % (Auto) 10.9 H Eos % (Auto) 1.0 Baso % (Auto) 0.3 Neut # (Auto) 5.6 Lymph # (Auto) 0.8 [place] # (Auto) 0.8 Eos # (Auto) 0.1 Baso # (Auto) 0.0 Sodium 136 Potassium 4.1 Chloride 94 L Carbon Dioxide 32 H Anion Gap 14.1 BUN 32 H Creatinine 1.30 H Estimated Creat Clear 31 Estimated GFR 39 L Est GFR ( Amer) 47 L Glucose 146 H POC Glucose 186 H 327 H* Hemoglobin A1c Calcium 9.2 Magnesium 1.8 D Total Bilirubin 1.2 AST 39 H ALT 14 Alkaline Phosphatase 170 H Total Protein 7.2 Albumin 3.6 Globulin 3.6 H Albumin/Globulin Ratio 1.0 L TSH 01/18/25 01/18/25 01/18/25 15:56 11:17 06:24 WBC RBC Hgb Hct MCV MCH MCHC RDW Plt Count MPV Neut % (Auto) Lymph % (Auto) [place] % (Auto) Eos % (Auto) Baso % (Auto) Neut # (Auto) Lymph # (Auto) [place] # (Auto) Eos # (Auto) Baso # (Auto) Sodium 135 L Potassium 4.1 Chloride 94 L Carbon Dioxide 28 Anion Gap 17.1 H BUN 33 H Creatinine 1.10 H Estimated Creat Clear 38 Estimated GFR 47 L Est GFR ( Amer) 57 L Glucose 139 H POC Glucose 259 H 147 H Hemoglobin A1c 7.1 H D Calcium 8.9 Magnesium 2.1 D Total Bilirubin 1.3 AST 45 H D ALT 14 Alkaline Phosphatase 149 H Total Protein 7.2 Albumin 3.6 Globulin 3.6 H Albumin/Globulin Ratio 1.0 L TSH 3.37 DS: Diagnosis Discharge Diagnosis (1) Acute on chronic heart failure with preserved ejection fraction (HFpEF): Status: Acute Code(s): I50.33 - Acute on chronic diastolic (congestive) heart failure (2) COPD (chronic obstructive pulmonary disease): Status: Acute Code(s): J44.9 - Chronic obstructive pulmonary disease, unspecified (3) Severe protein-calorie malnutrition: Status: Acute Code(s): E43 - Unspecified severe protein-calorie malnutrition (4) Cirrhosis: Status: Acute Code(s): K74.60 - Unspecified cirrhosis of liver Qualifiers: Ascites presence: with ascites Hepatic cirrhosis type: unspecified hepatic cirrhosis Qualified Code(s): K74.60 - Unspecified cirrhosis of liver; R18.8 - Other ascites (5) Ascites: Status: Acute Code(s): R18.8 - Other ascites (6) Pleural effusion: Status: Acute Code(s): J90 - Pleural effusion, not elsewhere classified (7) Atrial fibrillation: Status: Acute Code(s): I48.91 - Unspecified atrial fibrillation Qualifiers: Atrial fibrillation type: unspecified chronic Qualified Code(s): I48.20 - Chronic atrial fibrillation, unspecified (8) Diabetes mellitus, type 2: Status: Acute Code(s): E11.9 - Type 2 diabetes mellitus without complications Meds Home Medications and Allergies Home Medications ?Medication ?Instructions ?Recorded ?Confirmed ?Type multivitamin-ferrous 1 each PO DAILY 08/18/21 01/17/25 History fumarate-folic acid 18 mg-400 mcg tablet nitroglycerin 0.4 mg sublingual 0.4 mg sublingual Q5M PRN chest 12/20/23 01/17/25 Rx tablet pain #30 tabs atorvastatin 40 mg tablet 40 mg PO HS 90 days #90 tabs 09/04/24 01/17/25 Rx levothyroxine 50 mcg tablet 50 mcg PO DAILY 10/13/24 01/17/25 History mirabegron 25 mg tablet,extended 25 mg PO DAILY 10/13/24 01/17/25 History release 24 hr (Myrbetriq) omeprazole 40 mg capsule,delayed 40 mg PO DAILY 10/13/24 01/17/25 History release rivaroxaban 15 mg tablet (Xarelto) 15 mg PO HS 10/13/24 01/17/25 History sertraline 100 mg tablet 100 mg PO DAILY 10/13/24 01/17/25 History ferrous gluconate 324 mg (38 mg 324 mg PO BID 30 days #0 tabs 10/18/24 01/17/25 Rx iron) tablet lactulose 20 gram/30 mL oral 10 g (15 mL) PO BID 30 days #900 mL 10/18/24 01/17/25 Rx solution polyethylene glycol 3350 17 17 g PO DAILY #510 grams 10/18/24 01/17/25 Rx gram/dose oral powder (Miralax) sodium bicarbonate 325 mg tablet 325 mg PO BID 30 days #60 tabs 10/18/24 01/17/25 Rx insulin glargine 100 unit/mL (3 15 unit (0.15 mL) SQ BID 60 days 11/14/24 01/17/25 Rx mL) subcutaneous pen (Lantus #18 mL Solostar U-100 Insulin) hydrocodone 7.5 mg-acetaminophen 1 tab PO QID PRN pain #120 tabs 12/18/24 01/17/25 Rx 325 mg tablet budesonide 160 mcg-glycopyr 9 2 inh inhalation BID #10.7 grams 01/16/25 01/17/25 Rx mcg-formot 4.8 mcg/actuation HFA inhaler (Breztri Aerosphere) artificial tears solution eye drops 1 drp ophthalmic (eye) TID 01/17/25 01/17/25 History clopidogrel 75 mg tablet 75 mg PO DAILY 01/17/25 01/17/25 History fluticasone propionate 50 1 spray intranasal DAILY 01/17/25 01/17/25 History mcg/actuation nasal spray,suspension insulin lispro 100 unit/mL 0 sliding scale dose SQ TID 01/17/25 01/17/25 History subcutaneous pen (Humalog KwikPen (U-100) Insulin) lidocaine 4 % topical patch 1 patch topical DAILY 01/17/25 01/17/25 History (Lidocaine Pain Relief) mecobalamin (vitamin B12) 5,000 5,000 mcg PO DAILY 01/17/25 01/17/25 History mcg chewable tablet metolazone 5 mg tablet 5 mg PO DAILY 01/17/25 01/17/25 History ondansetron HCl 4 mg tablet 4 mg PO Q6HP PRN Nausea And 01/17/25 01/17/25 History Vomiting potassium chloride 10 mEq 20 meq PO DAILY 01/17/25 01/17/25 History capsule,extended release furosemide 40 mg tablet (Lasix) 40 mg PO BIDL 30 days #60 tabs 01/19/25 Rx metoprolol tartrate 50 mg tablet 50 mg PO BID 30 days #60 tabs 01/19/25 Rx spironolactone 25 mg tablet 50 mg (2 x 25 mg) PO DAILY 30 days 01/19/25 Rx #60 tabs New Prescriptions to Start Prescriptions: furosemide [Lasix] Armando Greer metoprolol tartrate Armando Greer spironolactone Armando Greer Allergies Allergy/AdvReac Type Severity Reaction Status Date / Time methylprednisolone AdvReac Mild Elevated Verified 01/17/25 14:07 glucose Discharge Plan Disposition Patient Disposition: Xfer Intermediate Care Fac Condition: Fair Discharge Order Discharge Orders: Discharge Order (Routine); Ordered 01/19/25 Ordered By: Armando Greer Follow up Plan Follow up with: Alexy Richardson MD [Primary Care Provider] - Enter time for follow up (will see at [facility]) Prescriptions/Medication Reconciliation: New spironolactone 25 mg Tablet 50 mg PO DAILY 30 Days Qty: 60 0RF metoprolol tartrate 50 mg tablet 50 mg PO BID 30 Days Qty: 60 0RF Continued nitroglycerin 0.4 mg tablet, sublingual 0.4 mg sublingual Q5M PRN (Reason: chest pain) Qty: 30 3RF Rx Instructions: do not exceed 3 doses per episode atorvastatin 40 mg tablet 40 mg PO HS 90 Days Qty: 90 3RF insulin glargine [Lantus Solostar U-100 Insulin] 100 unit/mL (3 mL) insulin pen 15 unit SQ BID 60 Days Qty: 18 4RF hydrocodone-acetaminophen 7.5-325 mg tablet 1 tab PO QID PRN (Reason: pain) Qty: 120 0RF Breztri Aerosphere 160-9-4.8 mcg/actuation HFA aerosol inhaler 2 inh inhalation BID Qty: 10.7 2RF euxzaagwzfgd-udld-ptepv acid 1 EACH tablet 1 each PO DAILY sertraline 100 mg tablet 100 mg PO DAILY Patient Comments: TAKE ONE TABLET BY MOUTH EVERY DAY omeprazole 40 mg capsule,delayed release(DR/EC) 40 mg PO DAILY Patient Comments: TAKE ONE CAPSULE BY MOUTH EVERY DAY levothyroxine 50 mcg tablet 50 mcg PO DAILY Xarelto 15 mg tablet 15 mg PO HS Patient Comments: TAKE ONE TABLET BY MOUTH EVERY NIGHT AT BEDTIME --TAKE WITH FOOD-- mirabegron [Myrbetriq] 25 mg tablet extended release 24 hr 25 mg PO DAILY Patient Comments: TAKE ONE TABLET BY MOUTH EVERY DAY FOR BLADDER lactulose 20 gram/30 mL Solution 10 g PO BID 30 Days Qty: 900 0RF polyethylene glycol 3350 [Miralax] 17 gram/dose powder 17 g PO DAILY Qty: 510 0RF sodium bicarbonate 325 mg tablet 325 mg PO BID 30 Days Qty: 60 0RF ferrous gluconate 324 mg (38 mg iron) tablet 324 mg PO BID 30 Days Qty: 0 0RF lidocaine [Lidocaine Pain Relief] 4 % Adhesive Patch,Medicated 1 patch TOPICAL DAILY artificial tears solution Drops 1 drp OPHTHALMIC (EYE) TID metolazone 5 mg Tablet 5 mg PO DAILY ondansetron HCl 4 mg tablet 4 mg PO Q6HP PRN (Reason: Nausea And Vomiting) fluticasone propionate 50 mcg/actuation spray,suspension 1 spray INTRANASAL DAILY potassium chloride 10 mEq capsule, extended release 20 meq PO DAILY clopidogrel 75 mg tablet 75 mg PO DAILY insulin lispro [Humalog KwikPen Insulin] 100 unit/mL insulin pen 0 sliding scale dose SQ TID mecobalamin (vitamin B12) 5,000 mcg tablet,chewable 5,000 mcg PO DAILY Changed furosemide [Lasix] 40 mg tablet 40 mg PO BIDL 30 Days Qty: 60 2RF Discontinued metoprolol tartrate 50 mg Tablet 25 mg PO BID 30 Days Qty: 30 0RF spironolactone 25 mg Tablet 25 mg PO DAILY Problem Reconciliation Problems Reviewed?: Yes Patient Discharge Instructions ACTIVITY: Continue current activity DIET: continue same diet Patient Instructions: Congestive Heart Failure (Alternative Therapy), Heart Failure, Ascites, DI for Heart Failure Exacerbations, Stop Light COPD, Stop Light Heart Failure Print Language: Kinyarwanda Providers Primary Care Provider: Alexy Richardson Admit Provider: Armando Greer Attending Provider: Armando Greer
[2025-01-19 08:00] VITALS: BP 122/74; PULSE 133; RESP 18; TEMP 36.8; O2SAT 94
[2025-01-19] MEDS: CLOPIDOGREL 75MG TAB 75 MG PO (09:03)
[2025-01-19] MEDS: FERROUS SULFATE 325MG TABLET 325 MG PO (09:04)
[2025-01-19] MEDS: FLUTICASONE PROP 50MCG NASAL SPRAY 16GM 1 SPRAY NS (09:04)
[2025-01-19] MEDS: INSULIN GLARGINE 100 UNITS/ML 3ML FLEXPEN 15 UNIT SUBCUT (09:07)
[2025-01-19] MEDS: FUROSEMIDE 80 MG TABLET PO (09:07)
[2025-01-19] MEDS: LIDOCAINE 5% TRANSDERMAL PATCH 1 EACH TD (09:08)
[2025-01-19] MEDS: METOPROLOL TARTRATE 25MG TABLET 50 MG PO (09:11)
[2025-01-19] MEDS: LACTULOSE 20GM/30ML UDC 10 GM PO (09:11)
[2025-01-19] MEDS: POLYETHYLENE GLYCOL 3350 17 GM PACKET PO (09:11)
[2025-01-19] MEDS: ARTIFICIAL TEARS SOLN 15ML BOTTLE OP (09:12)
[2025-01-19] MEDS: SERTRALINE 100MG TABLET 100 MG PO (09:12)
[2025-01-19] MEDS: SODIUM BICARBONATE 650MG TABLET 325 MG PO (09:13)
[2025-01-19] MEDS: SPIRONOLACTONE 25MG TABLET 50 MG PO (09:13)
[2025-01-19] MEDS: POTASSIUM CHLORIDE 10MEQ CAPSULE.ER 20 MEQ PO (09:13)
[2025-01-19 10:01] VITALS: PULSE 128; PULSE 130; O2SAT 96
--- NOTE | 2025-01-19 10:25 | PC.NURSE ---
Report called to Yesenia @ [facility] @ [id number]
--- NOTE | 2025-01-19 10:37 | PC.NURSE ---
EMS contacted for transportation @ 1030. One squad is currently out for a transfer @ this time, but will relay message about need.
--- NOTE | 2025-01-19 13:07 | PC.NURSE ---
Called EMS @ this time to get an update on status of transport. Staff states that the transport truck is still not back from [place], but should be soon. Family updated on POC.
== END 2025-01-19 13:26 ==
LOC: ER 08:52 → 2ND 12:16
PROVIDERS: Admitting Provider Internal Medicine Adolescent Medicine; Emergency Provider Student in an Organized Health Care Education/Training Program; PCP Family Medicine; Visit Provider Internal Medicine Adolescent Medicine
DX: I13.0 Hypertensive heart and chronic kidney disease with heart failure and stage 1 through stage 4 chronic kidney disease, or unspecified chronic kidney disease (principal); I50.33 Acute on chronic diastolic (congestive) heart failure; J44.9 Chronic obstructive pulmonary disease, unspecified; E43 Unspecified severe protein-calorie malnutrition; K74.60 Unspecified cirrhosis of liver; R18.8 Other ascites; J90 Pleural effusion, not elsewhere classified; I48.0 Paroxysmal atrial fibrillation; E11.22 Type 2 diabetes mellitus with diabetic chronic kidney disease; Z68.25 Body mass index [BMI] 25.0-25.9, adult; Z79.01 Long term (current) use of anticoagulants; Z79.4 Long term (current) use of insulin; Z88.8 Allergy status to other drugs, medicaments and biological substances; I49.5 Sick sinus syndrome; Z95.0 Presence of cardiac pacemaker; N18.30 Chronic kidney disease, stage 3 unspecified; E03.9 Hypothyroidism, unspecified; E78.5 Hyperlipidemia, unspecified; D64.9 Anemia, unspecified; Z87.81 Personal history of (healed) traumatic fracture
CPT/HCPCS: 36415; 71045; 71275; 80053; 82962; 83036; 83735; 83880; 84145; 84443; 84484; 85025; 85610; 93005; 94640; 97163; 99285; G0378; J1938; J3475; J7614; J7644; Q0162; Q9967

== ENCOUNTER 2025-01-29 07:48 | Outpatient (CLI) | payer MEDICARE, SELFPAY ==
[2025-01-29 09:25] LABS: Anion Gap 11.9 mEq/L (5-15); Blood Urea Nitrogen 43 mg/dl (7-17); Calcium 8.6 mg/dl (8.4-10.2); Carbon Dioxide 32 mmol/L (22.0-30.0); Chloride 98 mmol/L (98-107); Estimated Glomerular Filt Rate 33 ml/min (>60); GFR (African American) 40 ML/MIN (>60); Glucose 96 mg/dl (74-100); Potassium 3.9 mmoL/L (3.5-5.1); Sodium 138 mmol/L (136-145)
== END 2025-01-29 23:59 | disposition home or self-care (01) ==
PROVIDERS: PCP Family Medicine; Visit Provider Family Medicine
DX: I11.0 Hypertensive heart disease with heart failure (principal); I50.33 Acute on chronic diastolic (congestive) heart failure
CPT/HCPCS: 36415; 80048

== ENCOUNTER 2025-01-30 12:53 | Outpatient (CLI) | payer MEDICARE, SELFPAY ==
--- NOTE | 2025-01-30 12:57 | XR_ITS ---
FINAL REPORT CLINICAL HISTORY: LT hip pain COMPARISON: None FINDINGS: LEFT HIP: Two views of the left hip demonstrate an intramedullary zan and compression screw bridging the proximal left femur. The lesser trochanter exists as a free fragment and is mildly medially displaced. There is no acute fracture or dislocation. The joint spaces appear normal. No soft tissue abnormality is seen. IMPRESSION: No acute bony abnormality. Reviewed, Interpreted and Dictated by Tremayne Morelos MD Transcribed by Angela Post Authenticated and [facility]
== END 2025-01-30 23:59 | disposition home or self-care (01) ==
LOC: RAD 12:54
PROVIDERS: PCP Family Medicine; Visit Provider Orthopaedic Surgery
DX: M25.552 Pain in left hip (principal); S72.142A Displaced intertrochanteric fracture of left femur, initial encounter for closed fracture
CPT/HCPCS: 73502

== ENCOUNTER 2025-02-10 08:44 | Outpatient (CLI) | payer MEDICARE, SELFPAY ==
[2025-02-10 09:24] LABS: Basophils # 0.1 K/mm3 (0-0.2); Basophils % 0.8 % (0.1-2.0); Eosinophils # 0.3 Kmm3 (0.0-0.4); Eosinophils % 3.8 % (0.1-12.0); Hemoglobin 9.8 g/dL (12.2-16.2); Immature Granulocytes # 0.02 10^3uL; Immature Granulocytes % 0.3 %; Lymphocytes # 1.5 K/mm3 (0.7-4.5); Lymphocytes % 22.9 % (10-50); Mean Corpuscular HGB Conc 32.8 g/dL (31.8-35.4); Mean Corpuscular Hemoglobin 27.3 pg (27.0-31.2); Mean Corpuscular Volume 83.3 fl (81-99); Mean Platelet Volume 9.6 fl (7.4-10.4); Monocytes # 0.8 K/mm3 (0.1-1.0); Monocytes % 11.3 % (1.7-9.3); Neutrophils # 4.1 K/mm3 (1.8-7.8); Neutrophils % 60.9 % (37.0-80.0); Nucleated Red Blood Cells # 0 10^3/uL; Nucleated Red Blood Cells % 0 %; Platelet Count 142 K/mm3 (142-424); Red Blood Count 3.59 M/mm3 (4.20-5.40); Red Cell Distribution Width 18.9 % (11.5-17.5); Red Cell Distribution Width-SD 57.5 fL; White Blood Count 6.6 K/mm3 (4.8-10.8)
[2025-02-10 09:33] LABS: Hematocrit 29.9 % (37.0-47.0)
== END 2025-02-10 23:59 | disposition home or self-care (01) ==
LOC: LAB 08:46
PROVIDERS: PCP Family Medicine; Visit Provider Family Medicine
DX: D64.9 Anemia, unspecified (principal)
CPT/HCPCS: 85025

== ENCOUNTER 2025-02-12 07:15 | Outpatient (CLI) | payer MEDICARE, SELFPAY ==
[2025-02-12 07:18] LABS: MANUAL DIFFERENTIAL MANUAL DIFFERENTIAL (MANUAL DIFF)
[2025-02-12 07:46] LABS: Basophils % 0.6 % (0.1-2.0); Eosinophils # 0.3 Kmm3 (0.0-0.4); Eosinophils % 3.7 % (0.1-12.0); Hemoglobin 8.9 g/dL (12.2-16.2); Lymphocytes # 1.2 K/mm3 (0.7-4.5); Lymphocytes % 17.8 % (10-50); Mean Corpuscular HGB Conc 31.8 g/dL (31.8-35.4); Mean Corpuscular Volume 84.8 fl (81-99); Monocytes # 0.6 K/mm3 (0.1-1.0); Monocytes % 9.3 % (1.7-9.3); Neutrophils # 4.6 K/mm3 (1.8-7.8); Neutrophils % 68.3 % (37.0-80.0); Platelet Count 144 K/mm3 (142-424); Red Cell Distribution Width 18.9 % (11.5-17.5); White Blood Count 6.7 K/mm3 (4.8-10.8)
[2025-02-12 08:51] LABS: Hypochromasia 1+; Lymphocytes % 20 % (10-50); Monocytes % 10 % (2-9); Neutrophils % 70 % (42-76); Ovalocytes 1+; Platelet Estimate Normal; Total Cells Counted 100
== END 2025-02-12 23:59 | disposition home or self-care (01) ==
PROVIDERS: PCP Family Medicine; Visit Provider Nurse Practitioner Family
DX: D64.9 Anemia, unspecified (principal)
CPT/HCPCS: 36415; 85007; 85014; 85018; 85048; 85049

== ENCOUNTER 2025-02-21 07:11 | Outpatient (CLI) | payer MEDICARE, SELFPAY ==
[2025-02-21 07:16] LABS: Microscopic, Urine URINE MICROSCOPIC (MICROSCOPIC)
[2025-02-21 07:33] LABS: Appearance,Urine CLEAR (Clear); Bilirubin,Urine Negative (Negative); Blood, Urine Negative (Negative); Color,Urine YELLOW (Yellow); Glucose,Urine (UA) Negative (Negative); Ketones,Urine Negative (Negative); Leukocyte Esterase,Urine 1+ (Negative); Nitrate,Urine Negative (Negative); Protein,Urine Negative (Negative); Urobilinogen,Urine 0.2 EU/dl (0.2)
[2025-02-21 08:02] LABS: Bacteria,Urine Trace /lpf; Squamous Epithelial Cell,Urine Occasional #/hpf (0-5)
== END 2025-02-21 23:59 | disposition home or self-care (01) ==
PROVIDERS: PCP Nurse Practitioner Family; Visit Provider Nurse Practitioner Family
DX: N39.0 Urinary tract infection, site not specified (principal); B96.20 Unspecified Escherichia coli [E. coli] as the cause of diseases classified elsewhere
CPT/HCPCS: 81001; 87086; 87088; 87186

== ENCOUNTER 2025-03-10 03:53 | Outpatient (CLI) | payer MEDICARE, MEDICAID, SELFPAY ==
--- OUTSIDE RECORDS SUMMARY | 2025-03-10 03:56 | XMS_ITS ---
Author Name Auto Generated, Auto Generated Organization [facility] Address [address] [place] [address] [place] [address] Phone [phone] Care Team Providers Care Brass Polisher Name Role Phone Hu Miller Unavailable [phone] Functional Status No Results Mental Status No Results Allergies and Intolerances Name Onset Date Reaction Severity No Known Allergies (Allergy) WedOct 20 11:11:00 EST 2024 Encounters Program Name Primary Diagnosis Admission Date/Time Dis charge Date/Time null WedOct 17 19:00:00 EST 2024 Medications Medication Directions Start Date End Date oxyCODONE 5 mg tablet 1 Tablet Oral Ever y 4 Hours, PRN Indication: PAIN WedOct 19 00:00:00 EST 2024 Problems No Known Problems Social History Social History Observation Description Date Smoking Status Never smoked WedOct 18 00:00 :00 EST 2024 Sex Female WedJul 31 00:00 :00 EST 1934 Reason for Referral
--- OUTSIDE RECORDS SUMMARY | 2025-03-10 03:57 | XMS_ITS | Data Portability ---
Author Organization [facility] CRIS Elizabeth PUKWANA CLOSED Address [address] [place] [address] Care Team Providers Care Respiratory Therapy Assistant Name Role Phone [facility] Referring Provider [phone] Assessment No assessment recorded. Plan of Treatment Reminders Order Date Submit Date Provider Last Modified By Organization Details Last Modified Time Details Appointments None recorded. Lab urinalysis panel, auto 2023 024 [email or web address] [facility] [address], [facility] [address], [place], [address], 09:37:00 Referral None recorded. Procedures None recorded. Surgeries None recorded. Imaging None recorded. Medication Orders None recorded. Patient TargetsNo targets recorded. Patient Instructions Encounter Date Encounter Id Patient Instructions Last Modified By Organization Details Last Modified Time 03/02/2024 [id number] From the best I can tell Mrs. Mallory was sent related to her CKD. Her daughter informs me that recent imaging revealed no evidence of obstruction. Her urine today is clear. She does not have any voiding complaints. Her daughter also tells me a recent creatinine during hospitalization was 1.6 which was slightly down from previous. I have told them I would notify Dr. Gutiérrez of our encounter today and if there is is a another issue pertinent to urology I would be glad to see her again otherwise we will see her back as needed only. [email or web address] Not available 03/02/2024 14:09:17 Reason for Referral None Reported. Results Created Date Observation Date Name Description Value Unit Range Abnormal Flag Note LastModifiedBy Organization Detail LastModifiedTime 03/02/20 24 03/02/2024 urina lysis panel , auto Unknown Analyte Clean Catch Not Available [facility] [facility], [place], [address], 03/02/2024 13:52:45 03/02/20 24 03/02/2024 urina lysis panel , auto Unknown Analyte Yellow Not Available [facility] [address] [facility], [place], [address], 03/02/2024 13:52:45 03/02/20 24 03/02/2024 urina lysis panel , auto Unknown Analyte Clear Not Available [facility] [address] [facility], [place], [address], 03/02/2024 13:52:45 03/02/20 24 03/02/2024 urina lysis panel , auto Unknown Analyte 1.010 Not Available [facility] [address] [facility], [place], [address], 03/02/2024 13:52:45 03/02/20 24 03/02/2024 urina lysis panel , auto Unknown Analyte 6.0 Not Available [facility] [address] [facility], [place], [address], 03/02/2024 13:52:45 03/02/20 24 03/02/2024 urina lysis panel , auto Unknown Analyte Negati ve Not Available [facility] [facility], [place], [address], 03/02/2024 13:52:45 03/02/20 24 03/02/2024 urina lysis panel , auto Unknown Analyte Negati ve Not Available [facility] [place], [address], 03/02/2024 13:52:45 03/02/20 24 03/02/2024 urina lysis panel , auto Unknown Analyte Negati ve Not Available [facility] [address] [facility], [place], [address], 03/02/2024 13:52:45 03/02/20 24 03/02/2024 urina lysis panel , auto Unknown Analyte 250 mg/dl Not Available [facility] [address] [place], [address], 03/02/2024 13:52:45 03/02/20 24 03/02/2024 urina lysis panel , auto Unknown Analyte Negati ve Not Available [facility] [address] [place], [address], 03/02/2024 13:52:45 03/02/20 24 03/02/2024 urina lysis panel , auto Unknown Analyte Normal Not Available [facility] [address] [place], [address], 03/02/2024 13:52:45 03/02/20 24 03/02/2024 urina lysis panel , auto Unknown Analyte Negati ve Not Available [facility] [place], [address], 03/02/2024 13:52:45 03/02/20 24 03/02/2024 urina lysis panel , auto Unknown Analyte Negati ve Not Available [facility] [address] [place], [address], 03/02/2024 13:52:45 Result Notes None recorded. Medical Equipment None Reported. Allergies Allergen ID Allergen Name Allergen Category Reaction Reaction Severity Criticality Documentation Date Start Date Code Code System Note Provider Name and Address Organization Details Recorded Time [id number] meloxicam medicatio n Not available Not available Not available 03/02/2024 83123 RxNorm Mariana MARCELINA Cotter [facility] 13:34:08 204432 aspirin medicatio n Not available Not available Not available 03/02/2024 1191 RxNorm Mariana Lee [facility] 4 13:34:12 [id number] ibuprofen medicatio n Not available Not available Not available 03/02/2024 5640 RxNorm Mariana Lee [facility] 4 13:34:17 Medications Name Sig Start Date Stop Date Status Note LastModified by Organization Details LastModified Time furosemide 40 mg tablet TAKE 1/2 TABLET BY MOUTH EVERY DAY active Not Available Not Available No t Available atorvastatin 40 mg tablet TAKE ONE TABLET BY MOUTH EVERY DAY active Not Available Not Available No t Available promethazine -DM 6.25 mg-15 mg/5 mL oral syrup Take 2.5ml by MOUTH every 6 hours as needed FOR cough MAY CAUSE DROWSINESS active Not Available Not Available N ot Available bumetanide 2 mg tablet TAKE ONE TABLET BY MOUTH EVERY DAY active Not Available Not Available No t Available cetirizine 10 mg tablet TAKE ONE TABLET BY MOUTH EVERY DAY AT BEDTIME FOR ALLERGIES active Not Available Not Available No t Available atorvastatin 10 mg tablet TAKE ONE TABLET BY MOUTH EVERY DAY FOR cholesterol active Not Available Not Available Not Available FreeStyle Test strips USE TO test blood sugar TWICE DAILY OR DIRECTED active Not Available Not Available No t Available isosorbide mononitrate ER 30 mg tablet,exten ded release 24 hr TAKE 1/2 TABLET BY MOUTH EVERY DAY FOR CHEST pain active Not Available Not Available N ot Available sertraline 100 mg tablet TAKE ONE TABLET BY MOUTH EVERY DAY active Not Available Not Available No t Available clopidogrel 75 mg tablet TAKE ONE TABLET BY MOUTH EVERY DAY FOR BLOOD THINNER active Not Available Not Available No t Available omeprazole 40 mg capsule,nakul yed release TAKE ONE CAPSULE BY MOUTH EVERY DAY active Not Available Not Available No t Available aspirin 81 mg tablet,delay ed release TAKE ONE TABLET BY MOUTH EVERY DAY AT BEDTIME active Not Available Not Available No t Available bisoprolol fumarate 5 mg tablet TAKE 1/2 TABLET BY MOUTH EVERY DAY active Not Available Not Available No t Available meloxicam 7.5 mg tablet TAKE ONE TABLET BY MOUTH EVERY DAY NEEDED FOR shoulder pain --TAKE WITH FOOD-- active Not Available Not Available Not Available verapamil ER 180 mg 24 hr capsule,exte nded release TAKE ONE CAPSULE BY MOUTH EVERY DAY FOR heart rate active Not Available Not Available N ot Available levothyroxin e 50 mcg tablet TAKE ONE TABLET BY MOUTH EVERY DAY active Not Available Not Available No t Available cephalexin 500 mg capsule TAKE ONE CAPSULE BY MOUTH THREE TIMES DAILY FOR 7 DAYS -- FINISH ALL MEDICINE -- active Not Available Not Available Not Available nitroglyceri n 0.[address] 1 TABLET UNDER TONGUE EVERY 5 MINUTES IF NEEDED FOR CHEST PAIN; MAY REPEAT 2 TIMES; IF NO RELIEF AFTER 3 DOSES CALL 911 OR GO TO ER active Not Available Not Available No t Available docusate sodium 100 mg capsule TAKE ONE CAPSULE BY MOUTH EVERY DAY FOR CONSTIPATIO N active Not Available Not Available No t Available bumetanide 1 mg tablet TAKE ONE TABLET BY MOUTH EVERY DAY active Not Available Not Available No t Available digoxin 125 mcg (0.125 mg) tablet TAKE ONE TABLET BY MOUTH EVERY DAY FOR heart rhythm active Not Available Not Available No t Available furosemide 20 mg tablet TAKE ONE TABLET BY MOUTH EVERY OTHER DAY active Not Available Not Available No t Available levofloxacin 500 mg tablet TAKE ONE TABLET EVERY 24 HOURS FOR 7 DAYS active Not Available Not Available No t Available brompheniram ine-pseudoep hedrine-DM 2 mg-30 mg-10 mg/5 mL oral syrup TAKE 5ML BY MOUTH EVERY 6 HOURS NEEDED FOR COLD SYMPTOMS active Not Available Not Available No t Available ondansetron 4 mg disintegrati ng tablet DISSOLVE ONE TABLET in MOUTH EVERY 6 HOURS NEEDED FOR NAUSEA AND VOMITING active Not Available Not Available No t Available fluticasone propionate 50 mcg/actuatio n nasal spray,suspen mary instill 1 SPRAY IN EACH NOSTRIL DAILY FOR ALLERGY symptoms active Not Available Not Available No t Available sertraline 50 mg tablet TAKE ONE TABLET BY MOUTH EVERY DAY FOR 7 DAYS active Not Available Not Available No t Available loratadine 10 mg tablet TAKE ONE TABLET BY MOUTH EVERY DAY active Not Available Not Available No t Available verapamil ER 120 mg 24 hr capsule,exte nded release TAKE ONE CAPSULE BY MOUTH EVERY DAY active Not Available Not Available No t Available oxycodone 5 mg tablet active Not Available Not Available No t Available insulin lispro protamine-li spro 100 unit/mL (75-25) subcutaneous pen INJECT 20 units SUBCUTANEOU SLY TWICE DAILY FOR diabetes (ONCE open discard EACH pen 10 DAYS AFTER first USE) active Not Available Not Available N ot Available mirtazapine 7.5 mg tablet TAKE ONE TABLET BY MOUTH EVERY DAY AT BEDTIME FOR SLEEP active Not Available Not Available No t Available ranolazine ER 500 mg tablet,exten ded release,12 hr TAKE ONE TABLET BY MOUTH TWICE DAILY active Not Available Not Available No t Available ferrous gluconate 324 mg (38 mg iron) tablet TAKE ONE TABLET BY MOUTH DAILY active Not Available Not Available Not Available Lantus Solostar U-100 Insulin 100 unit/mL (3 mL) subcutaneous pen INJECT 38 UNITS SUBCUTANEOU SLY EVERY DAY AT BEDTIME FOR DIABETES active Not Available Not Available No t Available ranolazine ER 1,000 mg tablet,exten ded release,12 hr TAKE ONE TABLET BY MOUTH TWICE DAILY active Not Available Not Available No t Available Xarelto 15 mg tablet TAKE ONE TABLET BY MOUTH EVERY NIGHT AT BEDTIME --TAKE WITH FOOD-- active Not Available Not Available No t Available Advocate Pen Needle 31 gauge x 3/16 USE FOR INSULIN INJECTIONS THREE TIMES DAILY OR DIRECTED active Not Available Not Available No t Available Myrbetriq 25 mg tablet,exten ded release TAKE ONE TABLET BY MOUTH EVERY DAY FOR BLADDER active Not Available Not Available No t Available Stimulant Laxative Plus 8.6 mg-50 mg tablet TAKE ONE TABLET BY MOUTH TWICE DAILY NEEDED FOR constipatio n active Not Available Not Available No t Available Jardiance 10 mg tablet TAKE TWO TABLETS BY MOUTH EVERY DAY FOR heart disease active Not Available Not Available No t Available BD Ultra-Fine Micro Pen Needle 32 gauge x 1/4 USE DIRECTED active Not Available Not Available No t Available FreeStyle Kai 2 Sensor kit USE DIRECTED active Not Available Not Available No t Available FreeStyle Kai 2 [place] USE DIRECTED FOR continuous glucose monitoring active Not Available Not Available N ot Available insulin glargine-yfg n (U-100) 100 unit/mL (3 mL) subcutaneous pen INJECT 15 UNITS SUBCUTANEOU SLY TWICE DAILY active Not Available Not Available No t Available Vitals Date Recorded Body height Body mass index (BMI) Body weight Provider Name and Address Organization Details Last Updated DateTime 03/02/2024 160.02 cm 25.3 kg/m2 19236.71 g Mariana Lee [facility] 03/02/2024 13:34:01 Social History Question Answer Notes LastModified by Organizat ion Details LastModified Time What Is Your Relationship Status? Information not available 03/02/2024 Has Tobacco Cessation Counseling Been Provided? No Information not available 03/02/2024 Sex: Unknown Functional Status Question Answer Note LastModified by Organizat ion Details LastModified Time Do you use any illicit or recreational drugs? No Information not available 03/02/2024 Do you or have you ever used any other forms of tobacco or nicotine? No Information not available 03/02/2024 Are you currently employed? No Information not available 03/02/2024 Mental Status None recorded. Family History Relationship Description Onset Age of this Age Resolved Age Notes LastModified by Organization Details LastModified Time Father No current problems or disability Not available 03/02 13:34:24 Mother No current problems or disability Not available 03/02 13:34:24 Medical History Condition Response Pacemaker Y Liver Disease Y Kidney Disease Y Anemia Y Diabetes Y Thyroid Disorder Y Heart Disease Y Hypertension Y Gynecological HistoryNo gynecological history recorded. Obstetrics History GPAL:G 0 P 0 0 0 0 Past Encounters Encounter ID Performer Location Encounter Start Date Encounter Closed Date Diagnosis/Indication Diagnosis SNOMED-CT Code Diagnosis ICD10 Code Diagnosis Note [id number] RAND WHITLOCK [facility] [address] [facility] [address] [place] [address] 03/02/2024 13:12:03 03/02/2024 14:09:22 Dysuria 03887425 R30.0 Health Concerns Section Related Observation LastModified by Organization Detai ls LastModified Time None Recorded Concern Status LastModified by Organization Details LastModified Time None Recorded Advance Directives Directive None Recorded Payers Insurance Date Sequence Insurance Name Policy Number Policy Foster Covered Member ID Foster Member ID Guarantor Name 03/07/2024 1 [place] (MEDICARE REPLACEMENT HMO) [id number] Kareen Mallory [id number] Kareen Mallory 03/08/2024 2 [place] CHO[place] - FFS/TRADITIONA L Kareen Mallory [id number] Kareen Mallory Notes Date Note Type Note Provider Name and Address Organization Details Recorded Time 03/02/2024 text/html 88 yo new female is here for her h/o of kidney disease, referred by Dr. gutiérrez. RAND WHITLOCK MD [address] [place] [address], [address], [facility] 03/06/2024 09:37:28 OBGyn Episode No OBEpisode recorded.
--- OUTSIDE RECORDS SUMMARY | 2025-03-10 03:57 | XMS_ITS | Data Portability ---
Author Organization [facility] - [facility] SALINA Marcial ADMIN Address [address] [place] [id number] Assessment No assessment recorded. Plan of Treatment Reminders Order Date Submit Date Provider Last Modified By Organization Details Last Modified Time Details Appointments None recorded. Lab cytology, peritoneal fluid [address] (Scheduling), [address] [place] [address] [address], [place], [address], 4 15:48:33 cell count w/ diff, body fluid [address] (Scheduling), [address] [place] [address] [address], [place], [address], 4 15:48:33 Referral None recorded. Procedures abdominal paracentesi s; with imaging guidance (PROC) - Standing order for paracentesi s. See fluid orders. Standing order for cell ct w/diff with every subsequent paracentesi s. Cytology just with the first. 2023 024 [email or web address] [facility] Scheduling, [address] [place] [address] [address], [place], [address], 4 14:39:19 Surgeries None recorded. Imaging None recorded. Medication Orders Xifaxan 550 mg tablet 2023 024 [facility], [address] [place] [address] [address], [place], [id number], 4 14:28:23 Patient TargetsNo targets recorded. Patient Instructions Encounter Date Encounter Id Patient Instructions Last Modified By Organization Details Last Modified Time 06/19/2024 [id number] Follow up as planned with Dr. Beverly. Return to clinic as needed. [email or web address] Not available 06/19/2024 16:53:35 Reason for Referral None Reported. Results Created Date Observation Date Name Description Value Unit Range Abnormal Flag Note LastModifiedBy Organization Detail LastModifiedTime 06/23/20 24 06/23/2024 US, abdom en No observ ation record ed. [email or web address], [place], [address], 06/23/2024 14:23:48 08/27/20 24 08/27/2024 CT, head + brain , w/o contr ast No observ ation record ed. [facility] [address], [place], [address], 09/06/2024 16:53:12 08/27/20 24 08/27/2024 CT, cervi rj spine , w/o contr ast No observ ation record ed. [facility] [address], [place], [address], 09/06/2024 16:53:33 08/27/20 24 08/27/2024 XR, chest , 2 view No observ ation record ed. [facility] [address], [place], [address], 09/06/2024 16:54:44 08/27/20 24 08/27/2024 CT, abdom en + pelvi s, w/o contr ast No observ ation record ed. [facility] [address], [place], [address], 09/06/2024 16:54:29 Result Notes None recorded. Medical Equipment None Reported. Medications Name Sig Start Date Stop Date Status Note LastModified by Organization Details LastModified Time Prescription - Prior Authorizatio n Request active Not Available Not Available No t [...] active Not Available Not Available Not Available sulfamethoxa zole 400 mg-trimethop rim 80 mg tablet TAKE ONE TABLET BY MOUTH TWICE DAILY FOR 10 DAYS -- FINISH ALL MEDICINE -- active [...] Available Not Available No t Available ondansetron 8 mg disintegrati ng tablet DISSOLVE ONE TABLET UNDER THE TONGUE EVERY 6 HOURS FOR NAUSEA AND VOMITING active Not Available Not Available No t Available bisoprolol fumarate 5 mg tablet TAKE ONE TABLET BY MOUTH EVERY DAY FOR HIGH BLOOD PRESSURE active Not Available Not Available No t [...] ONE TABLET in MOUTH EVERY 6 HOURS FOR NAUSEA AND VOMITING active Not Available [...] No t Available oxycodone 5 mg tablet TAKE 1/2 TABLET BY MOUTH EVERY 6 HOURS NEEDED FOR shoulder pain MAY CAUSE DROWSINESS active Not Available Not Available N ot Available insulin lispro protamine-li spro 100 unit/mL (75-25) subcutaneous pen INJECT 20 units SUBCUTANEOU SLY TWICE DAILY FOR diabetes (ONCE open discard EACH pen 10 DAYS AFTER first USE) active Not Available Not Available N ot Available mirtazapine 7.5 mg tablet TAKE ONE TABLET BY MOUTH EVERY DAY AT BEDTIME FOR SLEEP active Not Available Not Available No t Available BD Ultra-Fine Mini Pen Needle 31 gauge x /16 USE as directed TWICE DAILY with insulin active Not Available Not Available No t Available Constulose 10 gram/15 mL oral solution take 30-45 ML by MOUTH 3 TO 4 times daily. adjust DOSE TO produce 2-3 sOFT stOOLS PER DAY active Not Available Not Available No t Available ranolazine ER 500 mg tablet,exten ded release,12 hr TAKE ONE TABLET BY MOUTH TWICE DAILY active Not Available Not Available No t Available ferrous gluconate 324 mg (38 mg iron) tablet TAKE ONE TABLET BY MOUTH EVERY DAY active Not Available Not Available No t Available Lantus Solostar U-100 Insulin 100 unit/mL (3 mL) subcutaneous pen INJECT 13 UNITS SUBCUTANEOU SLY IN THE MORNING AND 11 UNITS IN THE EVENING active Not Available Not Available Not Available ranolazine ER 1,000 mg tablet,exten ded release,12 hr TAKE ONE TABLET BY MOUTH TWICE DAILY active Not Available Not Available No t Available Xifaxan 550 mg tablet active Not Available Not Available No t Available Vitamin B-12 5,[address] 1 TABLET UNDER THE TONGUE DAILY active Not Available Not Available No [...] TAKE TWO TABLETS BY MOUTH EVERY DAY active Not Available Not Available No t Available BD Ultra-Fine Micro Pen Needle 32 gauge x 1/4 USE DIRECTED active Not Available Not Available No t Available FreeStyle Kai 2 Sensor kit USE DIRECTED active Not Available Not Available No t Available FreeStyle Kai 2 [place] USE DIRECTED FOR continuous glucose monitoring (OR TWICE DAILY) active Not Available Not Available No t Available insulin glargine-yfg n (U-100) 100 unit/mL (3 mL) subcutaneous pen INJECT 15 UNITS SUBCUTANEOU SLY TWICE DAILY active Not Available Not Available No t Available Vitals Date Recorded Body weight Body mass index (BMI) Body height Body temperature Oxygen saturation Oxygen saturation in Arterial blood by Pulse oximetry Heart rate Heart rate Systolic blood pressure Diastolic blood pressure Provider Name and Address Organization Details Last Updated DateTime 4 61888.7 4 g 25.6 kg/m2 160.02 cm 97.2 [degF] 96 % 96 % 110 /min 110 /min 133 mm[Hg] 75 mm[Hg] Tamia Gonzales [place] - [facility] - [place] & [place] 4 14:25:40 Social History None recorded. Functional Status None recorded. Mental Status None recorded. Family History Nothing Reported. Medical History No medical history recorded. Gynecological HistoryNo gynecological history recorded. 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 I have reservatio ns changing diuretics with kidney function. Hepatic encephalopathy 76256922 K76.82 Start xifaxan as ordered. If not covered, consider lactulose. Health Concerns Section Related Observation LastModified by Organization Detai ls LastModified Time None Recorded Concern Status LastModified by Organization Details LastModified Time None Recorded Advance Directives Directive None Recorded Payers Insurance Date Sequence Insurance Name Policy Number Policy Foster Covered Member ID Foster Member ID Guarantor Name 06/19/2024 1 [place]MEDICARE REPLACEMENT HMO) [id number] Kareen Mallory [id number] Kareen Mallory Notes Date Note Type Note Provider Name and Address Organization Details Recorded Time 06/19/2024 text/html Kareen Mallory is an 88-year-old female here today for evaluation of cirrhosis, abdominal ascites.She has an extensive history including CKD, CHF, afib, cardiomyopathy, pacemaker, etc. Her daughter is present with her today and offers most of Kareen's history. She reports that diagnosis of cirrhosis was made earlier this year by a physician at [facility]. The majority of Kareen's health care providers are within [facility]. She says Kareen used alcohol heavily when she was younger, does not drink alcohol now. She was seen in the ED at [facility] on 05/24/[address] scan showed pleural effusion and ascites. It was recommended she follow up with pulmonary and GI outpatient. On 06/07/24 she underwent paracentesis where 1800 ml was removed. Fluid recurred two days later. She is currently taking Bumex 1 mg daily and Furosemide 20 mg daily. If she has an increase in BLE swelling she will take 2 mg Bumex. Her creatinine on 05/24/24 was 1.6. Urine is clear/yellow. She does not have a track service person. Her BNP was 4150. Cardiology at [facility] is following. She had a pacemaker placed in 2016, stents placed in October 2022. She is on Xarelto. PT/INR elevated. She denies symptoms of GI bleed, no jaundice or pruritus. Her daughter has noticed cognitive impairment recently, stating Kareen has been more forgetful. She has an appointment with Dr. Beverly at [facility] on 07/25/24. Her PCP recommended she be seen at our clinic today. She has been seen by Dr. Beverly in the past. MELLISA YEE, WALLY [address], [place], [address], [facility] - [place] - [place] & [place] 06/19/2024 16:53:55 OBGyn Episode No OBEpisode recorded.
--- OUTSIDE RECORDS SUMMARY | 2025-03-10 03:57 | XMS_ITS | Clinical Summary ---
Author Organization Healthcare Address [address] [id number] Care Team Providers Care Apparel Manager Name Role Phone Alexy Rivera MD Primary Care Provider [phone] Allergies No known active allergies Medications atorvastatin (Lipitor) 40 MG tablet Take 1 tablet (40 mg) by mouth 1 (one) time each day. 12/13/19 24 Active bisoprolol (Zebeta) 5 MG tablet Take 0.5 tablets (2.5 mg) by mouth 1 (one) time each day. Active cetirizine (ZyrTEC) 10 MG tablet TAKE ONE TABLET BY MOUTH EVERY DAY AT BEDTIME FOR ALLERGIES 12/06/19 24 Active clopidogrel (Plavix) 75 MG tablet Take 1 tablet (75 mg) by mouth 1 (one) time each day. 01/13/20 24 Active docusate sodium (Colace) 100 MG capsule TAKE ONE CAPSULE BY MOUTH EVERY DAY FOR CONSTIPATION 01/24/20 24 Active Jardiance 10 MG TAKE TWO TABLETS BY MOUTH EVERY DAY FOR heart disease 01/13/20 24 Active ferrous gluconate (Fergon) 324 (38 Fe) MG tablet Take 1 tablet (324 mg) by mouth 1 (one) time each day with breakfast. 01/13/20 24 Active Continuous Glucose Sensor (FreeStyle Kai 2 Sensor) [facility] USE DIRECTED 01/24/20 24 Active fluticasone (Flonase) 50 MCG/ACT nasal spray instill 1 SPRAY IN EACH NOSTRIL DAILY FOR ALLERGY symptoms 01/13/20 24 Active insulin glargine-yfgn (Semglee) 100 UNIT/ML injection pen INJECT 15 UNITS SUBCUTANEOUSLY TWICE DAILY 12/24/19 24 Active isosorbide mononitrate ER (Imdur) 30 MG 24 hr tablet TAKE 1/2 TABLET BY MOUTH EVERY DAY FOR CHEST pain Active levothyroxine (Synthroid, Levoxyl) 50 MCG tablet Take 1 tablet (50 mcg) by mouth 1 (one) time each day. 01/13/20 24 Active meloxicam (Mobic) 7.5 MG tablet TAKE ONE TABLET BY MOUTH EVERY DAY NEEDED FOR shoulder pain --TAKE WITH FOOD-- 01/24/20 24 Active Myrbetriq 25 MG tablet TAKE ONE TABLET BY MOUTH EVERY DAY FOR BLADDER 12/08/19 24 Active nitroglycerin (Nitrostat) 0.[address] 1 TABLET UNDER TONGUE EVERY 5 MINUTES IF NEEDED FOR CHEST PAIN; MAY REPEAT 2 TIMES; IF NO RELIEF AFTER 3 DOSES CALL 911 OR GO TO ER 12/20/19 24 Active omeprazole (PriLOSEC) [address] capsule Take 1 capsule (40 mg) by mouth 1 (one) time each day. 01/13/20 24 Active ondansetron ODT (Zofran-ODT) 4 MG disintegrating tablet DISSOLVE ONE TABLET in MOUTH EVERY 6 HOURS NEEDED FOR NAUSEA AND VOMITING 10/06/19 24 Active sertraline (Zoloft) 100 MG tablet Take 1 tablet (100 mg) by mouth 1 (one) time each day. Active verapamil ER (Veralan PM) 120 MG 24 hr capsule Take 1 capsule (120 mg) by mouth every night. Active Xarelto 15 MG tablet TAKE ONE TABLET BY MOUTH EVERY EVENING --TAKE WITH FOOD-- 11/17/19 24 Active Immunizations Immunization Administration Dates Next Due Influenza, high-dose, quadrivalent 08/23/2023,,08/01/2021 Influenza, injectable, quadrivalent 06/17/2018 Pneumococcal Conjugate PCV 13 01/11/2017 Pneumococcal Polysaccharide PPV23 08/01/2012 Family History Medical History Relation Name Comments Diabetes Mother Relation Name Status Comments Mother Social History Tobacco Use Types Packs/Day Years Used Date Smoking Tobacco: Never Passive Smoke Exposure: Never Smokeless Tobacco: Never Tobacco Cessation:Counseling Given: Not Answered Alcohol Use Standard Drinks/Week Comments No 0 (1 standard drink = 0.6 oz pur e alcohol) Comments Unknown Sex and Gender Information Value Date Recorded Sex Assigned at Not on file Legal Sex Female 6:55 PM EDT Gender Identity Not on file Sexual Orientation Not on file Last Filed Vital Signs Vital Sign Reading Time Taken Comments Blood Pressure 110/72 02/01/2024 2:46 PM EDT Pulse 82 02/01/2024 2:46 PM EDT Temperature 36.5 C (97.7 F) 02/01/2024 12:04 PM EDT Respiratory Rate 18 02/01/2024 2:46 PM EDT Oxygen Saturation 97% 02/01/2024 2:46 PM EDT Inhaled Oxygen Concentration - - Weight 63.1 kg (139 lb 1.8 oz) 06/28/2019 1:11 P M EDT Height 160 cm (5' 3 ) 06/28/2019 1:11 PM EDT Body Mass Index 24.64 06/28/2019 1:11 PM EDT Plan of Treatment Health Maintenance Due Date Last Done Comments [facility]-Bone Density Scan 1937 [facility]-Depression Screening 1937 [facility]-Medicare Annual Wellness (AWV) 1937 [facility]-Infant/Child/Adol SDOH Screenings 1937 EGI-DCKVM-43 Vaccine (#1) 1942 [facility]- SDOH Screenings 1955 [facility]-Adult SDOH Screenings 1955 [facility]-DTaP,Tdap,and Td Vaccines (1 - Tdap) 1956 [facility]Y-Zoster Vaccines (1 of 2) 1987 [facility]-RSV Vaccine: 60+ Years or (1 - 1-dose 75+ series) 2012 [facility]-Influenza Vaccine (Season Ended) 2025 08/23/2023, 09/11/2022, 08/01/2021, Additional history exists [facility]-Pneumococcal Vaccine: 50+ Years Completed 01/11/2017, 08/01/2012 HPV Vaccines Aged Out No longer eligi ble based on patient's age to complete this topic [facility]-HIB Vaccines Aged Out No longer e ligible based on patient's age to complete this topic [facility]Y-Hepatitis A Vaccines Aged Out No longer eligible based on patient's age to complete this topic UKY-IPV Vaccines Aged Out No longer e ligible based on patient's age to complete this topic UKY-Rotavirus Vaccines Aged Out No lo nger eligible based on patient's age to complete this topic Insurance [place] Care Teams Apparel Manager Relationship Specialty Start Date End Date Alexy Rivera MD [address] [place] [address] PCP - General 02/14/21
--- OUTSIDE RECORDS SUMMARY | 2025-03-10 04:57 | XMS_ITS | CCD ---
Author Organization Unknown Care Team Providers Care Legal Analyst Name Role Phone Unavailable Primary Care Provider Unavailabl e Unavailable Chronic Care Management Unavaila ble Summary Purpose DataExchange Insurance Providers Payer name Policy type / Coverage type Covered alliance party ID Effective Begin Date Effective End Date [facility] [id number] Unknown Unknown Family History Family History data not found Medication Administered No Medication Administered data Reason For Visit No Reason For Visit data Medical Equipment No Medical Equipment data Advance Directives No Advance Directive data
== END 2025-03-10 23:59 | disposition home or self-care (01) ==
LOC: LAB.DROPOF 03:55
PROVIDERS: PCP Nurse Practitioner Family; Visit Provider Family Medicine
DX: N18.4 Chronic kidney disease, stage 4 (severe) (principal)
CPT/HCPCS: 87086

== ENCOUNTER 2025-03-12 10:58 | Outpatient (CLI) | payer MEDICARE, MEDICAID, SELFPAY ==
--- OUTSIDE RECORDS SUMMARY | 2025-03-12 10:59 | XMS_ITS ---
Author Name Auto Generated, Auto Generated Organization [facility] Address [address] [place] [address] Phone [phone] Care Team Providers Care Physics Department Chair Name Role Phone Adamnayeli Hu Unavailable [phone] Functional Status Mental Status Allergies and Intolerances Encounters Medications Problems No Known Problems Social History Reason for Referral
--- OUTSIDE RECORDS SUMMARY | 2025-03-12 11:05 | XMS_ITS | Clinical Summary ---
Author Organization Healthcare Address [address] [id number] Care Team Providers Care Ship Officer Name Role Phone Alexy Rivera MD Primary Care Provider [phone] Allergies No known active allergies Medications atorvastatin [...] Continuous Glucose Sensor (FreeStyle Kai 2 Sensor) [facility] [place] USE DIRECTED 01/24/20 24 Active fluticasone (Flonase) [...] Wellness (AWV) 1937 [facility]-Infant/Child/Adol SDOH Screenings 1937 [id number] Vaccine (#1) 1942 [facility]- SDOH Screenings 1955 [...] topic Insurance [place] Care Teams Ship Officer Relationship Specialty Start Date End Date Alexy Rivera MD [address] [place] [address] PCP - General 02/14/21
--- OUTSIDE RECORDS SUMMARY | 2025-03-12 11:05 | XMS_ITS | Data Portability ---
Author Organization [facility]IS [facility] [place] CLOS[facility] Address [address] [facility] [address] [place] [address] Care Team Providers Care Sports Nutritionist Name Role Phone [facility] Referring Provider Assessment No assessment recorded. Plan of Treatment Reminders Order Date Submit Date Provider Last Modified By Organization Details Last Modified Time Details Appointments None recorded. Lab urinalysis panel, auto 2023 024 [email or web address] [facility] [address] [facility] [address], [place], [address], 09:37:00 Referral None recorded. Procedures None recorded. Surgeries None recorded. Imaging None recorded. Medication Orders None recorded. Patient TargetsNo targets recorded. Patient Instructions Encounter Date Encounter Id Patient Instructions Last Modified By Organization Details Last Modified Time 03/02/2024 [id number] From the best I can tell Mrs. [...] Clean Catch Not Available [facility] [address] [facility], [place], [address], 03/02/2024 13:52:45 03/02/20 24 03/02/2024 urina lysis panel , auto Unknown Analyte Yellow Not Available [facility] [address] [facility], [place], [address], 03/02/2024 13:52:45 03/02/20 24 03/02/2024 urina lysis panel , auto Unknown Analyte Clear Not Available [facility] [address] [facility], [place], [address], 03/02/2024 13:52:45 03/02/20 24 03/02/2024 urina lysis panel , auto Unknown Analyte 1.010 Not Available [facility] [address] [facility], [place], [address], 03/02/2024 13:52:45 03/02/20 24 03/02/2024 urina lysis panel , auto Unknown Analyte 6.0 Not Available [facility] [address] [facility], [place], [address], 03/02/2024 13:52:45 03/02/20 24 03/02/2024 urina lysis panel , auto Unknown Analyte Negati ve Not Available [facility] [facility], [place], [address], 03/02/2024 13:52:45 03/02/20 24 03/02/2024 urina lysis panel , auto Unknown Analyte Negati ve Not Available [facility] [place], [address], 03/02/2024 13:52:45 03/02/20 24 03/02/2024 urina lysis panel , auto Unknown Analyte Negati ve Not Available [facility] [facility], [place], [address], 03/02/2024 13:52:45 03/02/20 24 03/02/2024 urina lysis panel , auto Unknown Analyte 250 mg/dl Not Available [facility] [place], [address], 03/02/2024 13:52:45 03/02/20 24 03/02/2024 urina lysis panel , auto Unknown Analyte Negati ve Not Available [facility] [address] [place], [address], 03/02/2024 13:52:45 03/02/20 24 03/02/2024 urina lysis panel , auto Unknown Analyte Normal Not Available [facility] [address] [place], [address], 03/02/2024 13:52:45 03/02/20 24 03/02/2024 urina lysis panel , auto Unknown Analyte Negati ve Not Available [facility] [place], [address], 03/02/2024 13:52:45 03/02/20 24 03/02/2024 urina lysis panel , auto Unknown Analyte Negati ve Not Available [facility] [place], [address], 03/02/2024 13:52:45 Result Notes None recorded. Medical Equipment None Reported. Allergies Allergen ID Allergen Name Allergen Category Reaction Reaction Severity Criticality Documentation Date Start Date Code Code System Note Provider Name and Address Organization Details Recorded Time 675345 meloxicam medicatio n Not available Not available Not available 03/02/2024 95415 RxNorm Mariana MARCELINA Cotter [facility] 13:34:08 732711 aspirin medicatio n Not available Not available Not available 03/02/2024 1191 RxNorm Mariana Lee [facility] 4 13:34:12 041429 ibuprofen medicatio n Not available Not available Not available 03/02/2024 5640 RxNorm Mariana Lee [facility] 4 13:34:17 Medications Name Sig Start Date [...] Available No t Available FreeStyle Kai 2 [place] USE DIRECTED FOR continuous glucose monitoring active [...] Updated DateTime 03/02/2024 160.02 cm 25.3 kg/m2 71683.71 g Mariana [facility] 03/02/2024 13:34:01 Social History Question Answer [...] available 03/02 13:34:24 Medical History Condition Response Kidney Disease Y Thyroid Disorder Y Pacemaker Y Liver Disease Y Anemia Y Diabetes Y Heart Disease Y Hypertension Y Gynecological HistoryNo gynecological history recorded. Obstetrics History GPAL:G 0 P 0 0 0 0 Past Encounters Encounter ID Performer Location Encounter Start Date Encounter Closed Date Diagnosis/Indication Diagnosis SNOMED-CT Code Diagnosis ICD10 Code Diagnosis Note [id number] RAND WHITLOCK [facility] [address] [facility] [address] [address] 03/02/2024 13:12:03 03/02/2024 14:09:22 Dysuria 34098654 R30.0 Health Concerns Section Related Observation LastModified by Organization Detai ls LastModified Time None Recorded Concern Status LastModified by Organization Details LastModified Time None Recorded Advance Directives Directive None Recorded Payers Insurance Date Sequence Insurance Name Policy Number Policy Foster Covered Member ID Foster Member ID Guarantor Name 03/07/2024 1 [place]MEDICARE REPLACEMENT HMO) [id number] Kareen Mallory [id number] Kareen Mallory 03/08/2024 2 MED[place]ID-[facility] CHOICES - FFS/TRADITIONA L Kareen Mallory [id number] Kareen Mallory Notes Date Note Type Note Provider Name and Address Organization Details Recorded Time 03/02/2024 text/html 88 yo new female is here for her h/o of kidney disease, referred by Dr. gutiérrez. RAND WHITLOCK MD [address] [place] [address], [address], [facility] 03/06/2024 09:37:28 OBGyn Episode No OBEpisode recorded.
--- NOTE | 2025-03-12 11:15 | CA_ITS ---
APPROVED REPORT EXAM: Comprehensive 2D, Doppler, and color-flow Echocardiogram Clerical Adjudicator: Pretty Mcguire CRT Ht: 5 ft 2 in Wt: 110lbs BSA: 1.48 BP: 123/78 mmHg Indications: heart failure 2D Dimensions LA Volume 65.70 mL LA Volume Index 44.39 mL/m2 (M/F) 16-34 M-Mode Dimensions RVDd 3.88 cm (0.9-2.6) LA Diam 3.91 cm (1.9-4.0) LVDd 4.19 cm (3.5-5.7) LVDs 2.62 cm (3.5-5.7) IVSd 1.08 cm (0.6-1.1) PWd 0.56 cm (0.6-1.1) EF (Teich) 67.90% FS 37.50% EDV (Teich) 78.10 mL TAPSE 1.61 (<1.7) ESV (Teich) 25.10 mL LV Diastology E Decel Time 127 (160-240 msec) E/A Ratio 3.6 MED A' 5.50 cm/s LAT A' 4.40 cm/s Aortic Valve AO Peak GR. 3.60 mmHg Mitral Valve MV E Max Baljit. 68.0 (40-130 cm/s) MV A Velocity 19.0 (40-130 cm/s) E/A Ratio 3.49 MV PHT 37.0 ms Pulmonary Valve PV Peak Velocity 159.0 (50-150 cm/s) Tricuspid Valve TR P. Velocity 258.00 cm/s RAP Estimate 10.00 mmHg RVSP 36.60 mmHg Left Ventricle The left ventricle is normal size. The left ventricular systolic function is normal. The left ventricular ejection fraction is within the normal range. There is increased LV wall thickness. There is septal flattening present, consistent with right-sided pressure/volume overload. Diastolic function is indeterminate. LVEF is 55%. Right Ventricle Right ventricle is severely dilated. Right ventricle is mildly hypokinetic. Atria Left atrium is moderately dilated. Right atrium is severely dilated. There is no Doppler evidence of interatrial shunt. Aortic Valve Aortic valve is mildly thickened. There is no aortic valvular stenosis. No aortic regurgitation is present. Mitral Valve The mitral valve is normal in structure. No evidence of mitral valve stenosis. Mild mitral regurgitation. Tricuspid Valve Tricuspid valve is grossly normal in structure and function. Severe tricuspid regurgitation. RVSP is 30-35 mmHg, but likely to be inaccurate in the setting of severe TR. Pulmonic Valve The pulmonary valve is normal in structure. Mild pulmonic regurgitation. Great Vessels The aortic root is normal in size. IVC is normal in size and collapses >50% with inspiration. Pericardium There is no pericardial effusion. Other Information Study Quality: Fair Conclusion Normal LV systolic function. Severe LV dilation with mild reduction in RV function. Biatrial dilation. Severe TR. Mild MR, mild PI. When directly compared to prior study from 01/25/2024, there are no significant changes. Electronically signed by : Erica Harris MD 03/19/2025 11:52:32
--- OUTSIDE RECORDS SUMMARY | 2025-03-12 12:05 | XMS_ITS | CCD ---
Author Organization Unknown Care Team Providers Care Box Toe Maker Name Role Phone Unavailable Primary Care Provider Unavailabl e Unavailable Chronic Care Management Unavaila ble Summary Purpose DataExchange Insurance Providers Payer name Policy type / Coverage type Covered constitution party ID Effective Begin Date Effective End Date [facility] [id number] Unknown Unknown Family History Family History data not found Medication Administered No Medication Administered data Reason For Visit No Reason For Visit data Medical Equipment No Medical Equipment data Advance Directives No Advance Directive data
--- OUTSIDE RECORDS SUMMARY | 2025-03-12 12:05 | XMS_ITS | CCD ---
Author Organization Unknown Care Team Providers Care Coating Operator Name Role Phone Unavailable Primary Care Provider Unavailabl e Unavailable Chronic Care Management Unavaila ble Summary Purpose DataExchange Insurance Providers Payer name Policy type / Coverage type Covered green party ID Effective Begin Date Effective End Date E[facility]ANCE [facility] [id number] Unknown Unknown Family History Family History data not found Medication Administered No Medication Administered data Reason For Visit No Reason For Visit data Medical Equipment No Medical Equipment data Advance Directives No Advance Directive data
== END 2025-03-12 23:59 | disposition home or self-care (01) ==
LOC: RT 10:58
PROVIDERS: PCP Family Medicine; Visit Provider Physician Assistant
DX: I08.8 Other rheumatic multiple valve diseases (principal); I50.33 Acute on chronic diastolic (congestive) heart failure; I25.10 Atherosclerotic heart disease of native coronary artery without angina pectoris; R93.1 Abnormal findings on diagnostic imaging of heart and coronary circulation
CPT/HCPCS: 93306

== ENCOUNTER 2025-03-16 07:12 | Outpatient (CLI) | payer MEDICARE, MEDICAID, SELFPAY ==
--- OUTSIDE RECORDS SUMMARY | 2025-03-16 07:13 | XMS_ITS ---
Author Name Auto Generated, Auto Generated Organization [facility] Address [address] [place] [address] [place] [address] Phone [phone] Care Team Providers Care Locomotive Operator Helper Name Role Phone Hu Miller Unavailable [phone] Functional Status No Results Mental Status No [...]
--- OUTSIDE RECORDS SUMMARY | 2025-03-16 07:13 | XMS_ITS ---
Author Name Auto Generated, Auto Generated Organization [facility] Address [address] [place] [address] [place] [address] Phone [phone] Care Team Providers Care Bowling Ball Marker Name Role Phone Hu Miller Unavailable [phone] Functional Status No Results Mental Status No [...]
--- OUTSIDE RECORDS SUMMARY | 2025-03-16 07:14 | XMS_ITS | Data Portability ---
Author Organization [facility] SALINA Marcial ADMIN Address [address] [place] [address] Assessment No assessment recorded. Plan of Treatment Reminders Order Date Submit Date Provider Last Modified By Organization Details Last Modified Time Details Appointments None recorded. Lab cytology, peritoneal fluid [address] (Scheduling), [address] [place] [address] [address], [place], [address], 4 15:48:33 cell count w/ diff, body fluid [address] (Scheduling), [address] [place] [address] [address], [place], [address], 4 15:48:33 Referral None recorded. Procedures abdominal paracentesi s; with imaging guidance (PROC) - Standing order for paracentesi s. See fluid orders. Standing order for cell ct w/diff with every subsequent paracentesi s. Cytology just with the first. 2023 024 [email or web address] [facility] Scheduling, [address] [place] [address] [address], [place], [address], 4 14:39:19 Surgeries None recorded. Imaging None recorded. Medication Orders Xifaxan 550 mg tablet 2023 024 [facility], [address] [place] [address] [address], [place], [id number], 4 14:28:23 Patient TargetsNo targets recorded. Patient Instructions Encounter Date Encounter Id Patient Instructions Last Modified By Organization Details Last Modified Time 06/19/2024 [id number] Follow up as planned with Dr. Beverly. Return to clinic as needed. Not available 06/19/2024 16:53:35 Reason for Referral None Reported. Results Created Date Observation Date Name Description Value Unit Range Abnormal Flag Note LastModifiedBy Organization Detail LastModifiedTime 06/23/20 24 06/23/2024 US, abdom en No observ ation record ed. [email or web address], [place], [address], 06/23/2024 14:23:48 08/27/20 24 08/27/2024 CT, head + brain , w/o contr ast No observ ation record ed. [facility] [address], [place], [address], 09/06/2024 16:53:12 08/27/20 24 08/27/2024 CT, cervi rj spine , w/o contr ast No observ ation record ed. [facility] [address], [place], [address], 09/06/2024 16:53:33 08/27/20 24 08/27/2024 XR, chest , 2 view No observ ation record ed. [facility] [address], [place], [address], 09/06/2024 16:54:44 08/27/20 24 08/27/2024 CT, abdom en + pelvi s, w/o contr ast No observ ation record ed. [facility] [address], [place], [address], 09/06/2024 16:54:29 Result Notes None recorded. Medical [...] Available No t Available FreeStyle Kai 2 [place] USE DIRECTED FOR continuous glucose monitoring (OR [...] Address Organization Details Last Updated DateTime 4 01833.7 4 g 25.6 kg/m2 160.02 cm 97.2 [degF] 96 % 96 % 110 /min 110 /min 133 mm[Hg] 75 mm[Hg] Tamia Gonzales [place] - [facility] - [place] & [place] 4 14:25:40 Social History None recorded. Functional Status None recorded. Mental Status None recorded. Family History Nothing Reported. Medical History No medical history recorded. Gynecological HistoryNo gynecological history recorded. Obstetrics History GPAL:G 0 P 0 0 0 0 Past Encounters Encounter ID Performer Location Encounter Start Date Encounter Closed Date Diagnosis/Indication Diagnosis SNOMED-CT Code Diagnosis ICD10 Code Diagnosis Note [id number] MELLISA YEE NP [facility] [address] [facility] [address] [place] [address] 06/19/2024 14:13:53 06/19/2024 15:23:14 Cirrhosis of liver 26198629 K74.60 # Cirrhosis, decompensa lm by ascites-ci [...] g per day-Avoid alcohol, avoid NSAIDs Ascites 675000961 R18.8 Orders for standing paracentes is placed.Con tinue current diuretics as ordered. I have reservatio ns changing diuretics with kidney function. Hepatic encephalopathy 43196357 K76.82 Start xifaxan as ordered. If not [...] PLUS (MEDICARE REPLACEMENT HMO) [id number] Kareen Mallory [id number] Kareen Mallory Notes Date Note Type [...] earlier this year by a physician at [facility]. The majority of Kareen's health care providers are within [facility]. She says Kareen used alcohol heavily when she was younger, does not drink alcohol now. She was seen in the ED at [facility] on 05/24/[address] scan [...] is clear/yellow. She does not have a nursing service director. Her BNP was 4150. Cardiology at [facility] is following. She had a pacemaker placed in 2016, stents placed in October 2022. She is on Xarelto. PT/INR elevated. She denies symptoms of GI bleed, no jaundice or pruritus. Her daughter has noticed cognitive impairment recently, stating Kareen has been more forgetful. She has an appointment with Dr. Beverly at [facility] on 07/25/24. Her PCP recommended she be seen at our clinic today. She has been seen by Dr. Beverly in the past. MELLISA YEE, WALLY [address], [place], [address], [facility] - [place] - [place] 06/19/2024 16:53:55 OBGyn Episode No OBEpisode recorded.
--- OUTSIDE RECORDS SUMMARY | 2025-03-16 07:15 | XMS_ITS | Clinical Summary ---
Author Organization Healthcare Address [address] [id number] Care Team Providers Care Ladies Attendant Name Role Phone Alexy Rivera MD Primary Care Provider [phone] Allergies No known active allergies Medications atorvastatin [...] Continuous Glucose Sensor (FreeStyle Kai 2 Sensor) [facility] USE DIRECTED 01/24/20 24 [...] Wellness (AWV) 1935 [facility]-Infant/Child/Adol SDOH Screenings 1935 [id number] Vaccine (#1) 1940 [facility]- SDOH Screenings 1955 [...] topic Insurance AN[place] MEDIC[place] Care Teams Ladies Attendant Relationship Specialty Start Date End Date Alexy Rivera MD [address] [place] [address] PCP - General 02/14/21
--- OUTSIDE RECORDS SUMMARY | 2025-03-16 07:15 | XMS_ITS | Data Portability ---
Author Organization [facility] Elizabeth [facility] Address [address] [facility] [address] [place] [address] Care Team Providers Care Hr Payroll Coordinator Name Role Phone [facility] Referring Provider Assessment No assessment recorded. Plan of Treatment Reminders Order Date Submit Date Provider Last Modified By Organization Details Last Modified Time Details Appointments None recorded. Lab urinalysis panel, auto 2023 024 [email or web address] [facility] [address], [facility] [address], [place], [address], 09:37:00 Referral None recorded. Procedures None recorded. Surgeries None recorded. Imaging None recorded. Medication Orders None recorded. Patient TargetsNo targets recorded. Patient Instructions Encounter Date Encounter Id Patient Instructions Last Modified By Organization Details Last Modified Time 03/02/2024 [id number] From the best I can tell Mrs. [...] Clean Catch Not Available Cu[facility]Lc [address] [facility], [place], [address], 03/02/2024 13:52:45 03/02/20 24 03/02/2024 urina lysis panel , auto Unknown Analyte Yellow Not Available [facility]Lc Urology [facility] [address] [facility], [place], [address], 03/02/2024 13:52:45 03/02/20 24 03/02/2024 urina lysis panel , auto Unknown Analyte Clear Not Available [facility]rology [facility] [address] [facility], [place], [address], 03/02/2024 13:52:45 03/02/20 24 03/02/2024 urina lysis panel , auto Unknown Analyte 1.010 Not Available [facility]Lc Urology [facility] [address] [facility], [place], [address], 03/02/2024 13:52:45 03/02/20 24 03/02/2024 urina lysis panel , auto Unknown Analyte 6.0 Not Available [facility]Lc Urology [facility] [address] [facility], [place], [address], 03/02/2024 13:52:45 03/02/20 24 03/02/2024 urina lysis panel , auto Unknown Analyte Negati ve Not Available Cu[facility]Lc [facility] [facility], [place], [address], 03/02/2024 13:52:45 03/02/20 24 03/02/2024 urina lysis panel , auto Unknown Analyte Negati ve Not Available Cu[facility]Lc [address] [place], [address], 03/02/2024 13:52:45 03/02/20 24 03/02/2024 urina lysis panel , auto Unknown Analyte Negati ve Not Available Cu[facility]Lc [facility] [facility], [place], [address], 03/02/2024 13:52:45 03/02/20 24 03/02/2024 urina lysis panel , auto Unknown Analyte 250 mg/dl Not Available [facility]Lc [address] [place], [address], 03/02/2024 13:52:45 03/02/20 24 03/02/2024 urina lysis panel , auto Unknown Analyte Negati ve Not Available [facility]Lc [address] [place], [address], 03/02/2024 13:52:45 03/02/20 24 03/02/2024 urina lysis panel , auto Unknown Analyte Normal Not Available Cu[facility]Lc Urology [facility] [address] [place], [address], 03/02/2024 13:52:45 03/02/20 24 03/02/2024 urina lysis panel , auto Unknown Analyte Negati ve Not Available [facility]Lc [address] [place], [address], 03/02/2024 13:52:45 03/02/20 24 03/02/2024 urina lysis panel , auto Unknown Analyte Negati ve Not Available [facility]Lc [address] [place], [address], 03/02/2024 13:52:45 Result Notes None recorded. Medical Equipment None Reported. Allergies Allergen ID Allergen Name Allergen Category Reaction Reaction Severity Criticality Documentation Date Start Date Code Code System Note Provider Name and Address Organization Details Recorded Time 862638 meloxicam medicatio n Not available Not available Not available 03/02/2024 05890 RxNorm Mariana MARCELINA Cotter [facility] 13:34:08 794129 aspirin medicatio n Not available Not available Not available 03/02/2024 1191 RxNorm Mariana Lee [facility] 4 13:34:12 150604 ibuprofen medicatio n Not available Not available Not available 03/02/2024 5640 RxNorm Mariana Lee [facility] 4 13:34:17 Medications Name Sig Start Date [...] Available No t Available FreeStyle Kai 2 [place] USE DIRECTED FOR continuous glucose monitoring active [...] Updated DateTime 03/02/2024 160.02 cm 25.3 kg/m2 77961.71 g Mariana Lee [facility] 03/02/2024 13:34:01 Social History Question Answer Notes [...] SNOMED-CT Code Diagnosis ICD10 Code Diagnosis Note [id number] RAND WHITLOCK MD [facility] [address] [facility] [place] [address] 03/02/2024 13:12:03 03/02/2024 14:09:22 Dysuria 58759067 R30.0 Health Concerns Section Related Observation LastModified by Organization Detai ls LastModified Time None Recorded Concern Status LastModified by Organization Details LastModified Time None Recorded Advance Directives Directive None Recorded Payers Insurance Date Sequence Insurance Name Policy Number Policy Foster Covered Member ID Foster Member ID Guarantor Name 03/07/2024 1 [place] (MEDICARE REPLACEMENT HMO) [id number] Kareen Mallory [id number] Kareen Mallory 03/08/2024 2 MEDICAID-[facility] CHOICES - FFS/TRADITIONA L Kareen Mallory [id number] Kareen Mallory Notes Date Note Type Note Provider Name and Address Organization Details Recorded Time 03/02/2024 text/html 88 yo new female is here for her h/o of kidney disease, referred by Dr. gutiérrez. RAND WHITLOCK MD [address] [place] [address], [address], [facility] 03/06/2024 09:37:28 OBGyn Episode No OBEpisode recorded.
--- OUTSIDE RECORDS SUMMARY | 2025-03-16 08:14 | XMS_ITS | CCD ---
Author Organization Unknown Care Team Providers Care Supervisor Gas Meter Repair Name Role Phone Unavailable Primary Care Provider Unavailabl e Unavailable Chronic Care Management Unavaila ble Summary Purpose DataExchange Insurance Providers Payer name Policy type / Coverage type Covered green party ID Effective Begin Date Effective End Date [facility] [id number] Unknown Unknown Family History Family History data not found Medication Administered No Medication Administered data Reason For Visit No Reason For Visit data Medical Equipment No Medical Equipment data Advance Directives No Advance Directive data
--- OUTSIDE RECORDS SUMMARY | 2025-03-16 08:14 | XMS_ITS | CCD ---
Author Organization Unknown Care Team Providers Care Nursery Manager Name Role Phone Unavailable Primary Care Provider Unavailabl e Unavailable Chronic Care Management Unavaila ble Summary Purpose DataExchange Insurance Providers Payer name Policy type / Coverage type Covered republican ID Effective Begin Date Effective End Date ELEVANCE [facility] [id number] Unknown Unknown Family History Family History data not found Medication Administered No Medication Administered data Reason For Visit No Reason For Visit data Medical Equipment No Medical Equipment data Advance Directives No Advance Directive data
[2025-03-16 08:24] LABS: Ammonia 46 umol/L (9-30)
== END 2025-03-16 23:59 | disposition home or self-care (01) ==
PROVIDERS: PCP Nurse Practitioner Family; Visit Provider Nurse Practitioner Family
DX: K74.69 Other cirrhosis of liver (principal)
CPT/HCPCS: 36415; 82140

== ENCOUNTER 2025-03-25 13:41 | Inpatient (IN) | payer MEDICARE, MEDICAID, SELFPAY ==
[2025-03-25] VITALS (11 sets, daily range): BP systolic 103–131; BP diastolic 53–68; PULSE 94–125; RESP 14–22; TEMP 36.6–37.2; O2SAT 95–98; BMI 23.3
--- NOTE | 2025-03-25 14:17 | ECG_ITS ---
APPROVED REPORT Exam: Resting ECG HR:85 bpm ECG Measurements Heart Rate 85 AXES QRSd 85 QRS 134 QT 358 T 269 QTc 401 Conclusion ATRIAL FIBRILLATION POSSIBLE RIGHT VENTRICULAR HYPERTROPHY [SOME/ALL OF: PROMINENT R IN V1, LATE TRANSITION, RAD, OPAL, SSS] ST DEVIATION AND MODERATE T-WAVE ABNORMALITY, CONSIDER LATERAL ISCHEMIA [-0.1+ mV T-WAVE IN I/aVL/V5/V6] ABNORMAL ECG UNCONFIRMED REPORT Electronically signed by : WENDI GRAHAM, 03/27/2025 06:35:54
--- OUTSIDE RECORDS SUMMARY | 2025-03-25 14:22 | XMS_ITS | Clinical Summary ---
Author Organization Healthcare Address [address] [id number] Care Team Providers Care Five Piece Expansion Maker Hand Name Role Phone Alexy Rivera MD Primary Care Provider [phone] Allergies No known active allergies Medications atorvastatin [...] Glucose Sensor (FreeStyle Kai 2 Sensor) [facility] USE DIRECTED 01/24/20 24 Active fluticasone (Flonase) [...] Wellness (AWV) 1935 [facility]-Infant/Child/Adol SDOH Screenings 1937 [id number] Vaccine (#1) 1942 [facility]- SDOH Screenings 1955 [...] topic Insurance [place] Care Teams Five Piece Expansion Maker Hand Relationship Specialty Start Date End Date Alexy Rivera MD [address] [place] [address] PCP - General 02/14/21
--- OUTSIDE RECORDS SUMMARY | 2025-03-25 14:22 | XMS_ITS | Data Portability ---
Author Organization [facility] - [facility]AR[facility] - [facility] SALINA Marcial ADMIN Address [address] [place] [id number] Assessment No assessment recorded. Plan of Treatment Reminders Order Date Submit Date Provider Last Modified By Organization Details Last Modified Time Details Appointments None recorded. Lab cytology, peritoneal fluid [address] (Scheduling), [address] [place] [address] [address], [place], [address], 4 15:48:33 cell count w/ diff, body fluid [address] (Scheduling), [address] [place] [address] 36 [address], [place], [address], 4 15:48:33 Referral None recorded. Procedures abdominal paracentesi s; with imaging guidance (PROC) - Standing order for paracentesi s. See fluid orders. Standing order for cell ct w/diff with every subsequent paracentesi s. Cytology just with the first. 2023 024 [email or web address] [facility] Scheduling, [address] [place] [address] 36 [address], [place], [address], 4 14:39:19 Surgeries None recorded. Imaging None recorded. Medication Orders Xifaxan 550 mg tablet 2023 024 [facility], [address] [place] [address] [address], [place], [id number], 4 14:28:23 Patient TargetsNo targets recorded. Patient Instructions Encounter Date Encounter Id Patient Instructions Last Modified By Organization Details Last Modified Time 06/19/2024 [id number] Follow up as planned with Dr. Beverly. Return to clinic as needed. [email or web address] Not available 06/19/2024 16:53:35 Reason for Referral None Reported. Results Created Date Observation Date Name Description Value Unit Range Abnormal Flag Note LastModifiedBy Organization Detail LastModifiedTime 06/23/20 24 06/23/2024 US, abdom en No observ ation record ed. [email or web address], [place], [address], 06/23/2024 14:23:48 08/27/20 24 08/27/2024 CT, head + brain , w/o contr ast No observ ation record ed. [facility] [address], [place], [address], 09/06/2024 16:53:12 08/27/20 24 08/27/2024 CT, cervi rj spine , w/o contr ast No observ ation record ed. [facility] [address], [place], [address], 09/06/2024 16:53:33 08/27/20 24 08/27/2024 XR, chest , 2 view No observ ation record ed. [facility] [address], [place], [address], 09/06/2024 16:54:44 08/27/20 24 08/27/2024 CT, abdom en + pelvi s, w/o contr ast No observ ation record ed. [facility] [address], [place], [address], 09/06/2024 16:54:29 Result Notes None recorded. Medical [...] Available No t Available FreeStyle Kai [address] [place] USE DIRECTED FOR continuous glucose monitoring (OR [...] Address Organization Details Last Updated DateTime 4 [address].7 4 g 25.6 kg/m2 160.02 cm 97.2 [degF] 96 % 96 % 110 /min 110 /min 133 mm[Hg] 75 mm[Hg] Tamia Gonzales [place] - [place]NT - [place] & [place] 4 14:25:40 Social History None recorded. Functional Status None recorded. Mental Status None recorded. Family History Nothing Reported. Medical History No medical history recorded. Gynecological HistoryNo gynecological history recorded. Obstetrics History GPAL:G 0 P 0 0 0 0 Past Encounters Encounter ID Performer Location Encounter Start Date Encounter Closed Date Diagnosis/Indication Diagnosis SNOMED-CT Code Diagnosis ICD10 Code Diagnosis Note [id number] MELLISA YEE NP [facility] [address] [place] [address] 06/19/2024 14:13:53 06/19/2024 15:23:14 Cirrhosis of liver 73318325 K74.60 # Cirrhosis, decompensa lm by ascites-ci [...] g per day-Avoid alcohol, avoid NSAIDs Ascites 994986079 R18.8 Orders for standing paracentes is placed.Con tinue current diuretics as ordered. I have reservatio ns changing diuretics with kidney function. Hepatic encephalopathy 89502002 K76.82 Start xifaxan as ordered. If not [...] PLUS (MEDICARE REPLACEMENT HMO) [id number] Kareen Mallory [id number] Kareen Mallory Notes Date Note Type [...] earlier this year by a physician at [facility]. The majority of Kareen's health care providers are within [facility]. She says Kareen used alcohol heavily when she was younger, does not drink alcohol now. She was seen in the ED at [facility] on 05/24/[address] [...] is clear/yellow. She does not have a financial systems director. Her BNP was 4150. Cardiology at [facility] is following. She had a pacemaker placed in 2016, stents placed in October 2022. She is on Xarelto. PT/INR elevated. She denies symptoms of GI bleed, no jaundice or pruritus. Her daughter has noticed cognitive impairment recently, stating Kareen has been more forgetful. She has an appointment with Dr. Beverly at [facility] on 07/25/24. Her PCP recommended she be seen at our clinic today. She has been seen by Dr. Beverly in the past. MELLISA YEE, WALLY [address], [place], [address], [facility], [place] - [place] - [place] & [place] 06/19/2024 16:53:55 OBGyn Episode No OBEpisode recorded.
--- OUTSIDE RECORDS SUMMARY | 2025-03-25 14:22 | XMS_ITS | Data Portability ---
Author Organization [facility] CRIS Elizabeth HANOVER CLOSED Address [address] [facility] [address] [place] [address] Care Team Providers Care Station Examiner Name Role Phone [facility] Referring Provider Assessment No assessment recorded. Plan of Treatment Reminders Order Date Submit Date Provider Last Modified By Organization Details Last Modified Time Details Appointments None recorded. Lab urinalysis panel, auto 2023 024 [email or web address] [facility] [address] [facility] [address], [place], [address], 09:37:00 Referral None recorded. Procedures None recorded. Surgeries None recorded. Imaging None recorded. Medication Orders None recorded. Patient TargetsNo targets recorded. Patient Instructions Encounter Date Encounter Id Patient Instructions Last Modified By Organization Details Last Modified Time 03/02/2024 [id number] From the best I can tell Mrs. [...] Clean Catch Not Available [facility] [facility], [place], [address], 03/02/2024 13:52:45 03/02/20 24 03/02/2024 urina lysis panel , auto Unknown Analyte Yellow Not Available [facility] [address] [facility], [place], [address], 03/02/2024 13:52:45 03/02/20 24 03/02/2024 urina lysis panel , auto Unknown Analyte Clear Not Available [facility] [address] [facility], [place], [address], 03/02/2024 13:52:45 03/02/20 24 03/02/2024 urina lysis panel , auto Unknown Analyte 1.010 Not Available [facility] [address] [facility], [place], [address], 03/02/2024 13:52:45 03/02/20 24 03/02/2024 urina lysis panel , auto Unknown Analyte 6.0 Not Available [facility] [address] [facility], [place], [address], 03/02/2024 13:52:45 03/02/20 24 03/02/2024 urina lysis panel , auto Unknown Analyte Negati ve Not Available [facility] [facility], [place], [address], 03/02/2024 13:52:45 03/02/20 24 03/02/2024 urina lysis panel , auto Unknown Analyte Negati ve Not Available [facility] [address] [place], [address], 03/02/2024 13:52:45 03/02/20 24 03/02/2024 urina lysis panel , auto Unknown Analyte Negati ve Not Available [facility] [facility], [place], [address], 03/02/2024 13:52:45 03/02/20 24 03/02/2024 urina lysis panel , auto Unknown Analyte 250 mg/dl Not Available [facility] [place], [address], 03/02/2024 13:52:45 03/02/20 24 03/02/2024 urina lysis panel , auto Unknown Analyte Negati ve Not Available [facility] [address] [place], [address], 03/02/2024 13:52:45 03/02/20 24 03/02/2024 urina lysis panel , auto Unknown Analyte Normal Not Available [facility] [address] [place], [address], 03/02/2024 13:52:45 03/02/20 24 03/02/2024 urina lysis panel , auto Unknown Analyte Negati ve Not Available [facility] [address] [place], [address], 03/02/2024 13:52:45 03/02/20 24 03/02/2024 urina lysis panel , auto Unknown Analyte Negati ve Not Available [facility] [place], [address], 03/02/2024 13:52:45 Result Notes None recorded. Medical Equipment None Reported. Allergies Allergen ID Allergen Name Allergen Category Reaction Reaction Severity Criticality Documentation Date Start Date Code Code System Note Provider Name and Address Organization Details Recorded Time 013980 meloxicam medicatio n Not available Not available Not available 03/02/2024 97006 RxNorm Mariana MARCELINA Cotter [facility] 13:34:08 671373 aspirin medicatio n Not available Not available Not available 03/02/2024 1191 RxNorm Mariana Lee [facility] 4 13:34:12 089799 ibuprofen medicatio n Not available Not available Not available 03/02/2024 5640 RxNorm Mariana Lee [facility] 4 13:34:17 Medications Name Sig Start [...] Available No t Available FreeStyle Kai [address] [place] USE DIRECTED FOR continuous glucose monitoring active [...] Updated DateTime 03/02/2024 160.02 cm 25.3 kg/m2 11691.71 g Mariana Lee [facility] 03/02/2024 13:34:01 Social History Question Answer [...] available 03/02 13:34:24 Medical History Condition Response Diabetes Y Pacemaker Y Anemia Y Thyroid Disorder Y Liver Disease Y Heart Disease Y Hypertension Y Kidney Disease Y Gynecological HistoryNo gynecological history recorded. Obstetrics History GPAL:G 0 P 0 0 0 0 Past Encounters Encounter ID Performer Location Encounter Start Date Encounter Closed Date Diagnosis/Indication Diagnosis SNOMED-CT Code Diagnosis ICD10 Code Diagnosis Note [id number] RAND WHITLOCK MD [facility] [address] [facility] [address] [address] [address] 03/02/2024 13:12:03 03/02/2024 14:09:22 Dysuria 80659972 R30.0 Health Concerns Section Related Observation LastModified by Organization Detai ls LastModified Time None Recorded Concern Status LastModified by Organization Details LastModified Time None Recorded Advance Directives Directive None Recorded Payers Insurance Date Sequence Insurance Name Policy Number Policy Foster Covered Member ID Foster Member ID Guarantor Name 03/07/2024 1 [place] (MEDICARE REPLACEMENT HMO) [id number] Kareen Mallory [id number] Kareen Mallory 03/08/2024 2 MEDICAID-[facility] CHOICES - FFS/TRADITIONA L Kareen Mallory [id number] Kareen Mallory Notes Date Note Type Note Provider Name and Address Organization Details Recorded Time 03/02/2024 text/html 88 yo new female is here for her h/o of kidney disease, referred by Dr. gutiérrez. RAND WHITLOCK MD [address] [place] [address], [address], [facility] 03/06/2024 09:37:28 OBGyn Episode No OBEpisode recorded.
--- NOTE | 2025-03-25 14:27 | PC.NURSE ---
Bia ZAYAS at bedside assessing patient
--- NOTE | 2025-03-25 14:31 | XR_ITS ---
PROCEDURE INFORMATION: Exam: XR Chest Exam date and time: 03/25/2025 2:36 PM Age: 89 years old Clinical indication: Shortness of breath; Additional info: SOA TECHNIQUE: Imaging protocol: Radiologic exam of the chest. Views: 1 view. COMPARISON: CR XR CHEST PORTABLE 01/17/2025 10:13 AM FINDINGS: Tubes, catheters and devices: Transvenous pacemaker leads to the heart Lungs: Unremarkable. No consolidation. Pleural spaces: Unremarkable. No pleural effusion. No pneumothorax. Heart/Mediastinum: Unremarkable. No cardiomegaly. Bones/joints: Degenerative changes in the glenohumeral joints IMPRESSION: No acute findings. No focal consolidation
--- NOTE | 2025-03-25 14:33 | HMH.EDGENADL ---
Discharge Plan Disposition Chief Complaint: Altered Mental Status Discharge ED Provider: Amaya Velasquez General Adult HPI General Chief complaint: Altered Mental Status Stated complaint: AMS Time Seen by Provider: 03/25/25 14:25 Mode of Arrival: Ambulatory Source of Information: Patient Description of Symptoms (Recalled from ER Triage Doc. by RN): Pt presents by ems from [facility]. Pt was sent for evaluation of altered mental status, lethargic and not feeling well . Up on EMS arrival ekg was obtained and pt was noted to be in A-Fib RVR. Initial BP was 113/60 and 20mg of cardizem was given. Last BP obtained by ems was 90/50s. O2 at 2L was applied for patient comfort. Pt noted to have a wet cough. History of Present Illness HPI narrative: Patient is an 89-year-old with past medical history significant for heart failure with preserved ejection fraction atrial fibrillation type 2 diabetes COPD presents to the emergency department with cough. Patient has been weaker than normal with fatigue and reported low-grade fever. EMS was called due to patient being lethargic and not feeling well . On EMS arrival EKG with A-fib RVR received 20 mg of Cardizem and blood pressure decreased to 90s over 50s. Related Data Home Medications ?Medication ?Instructions ?Recorded ?Confirmed levothyroxine 50 mcg tablet 50 mcg PO DAILY 10/13/24 02/27/25 mirabegron 25 mg tablet,extended 25 mg PO DAILY 10/13/24 02/27/25 release 24 hr (Myrbetriq) omeprazole 40 mg capsule,delayed 40 mg PO DAILY 10/13/24 02/27/25 release rivaroxaban 15 mg tablet (Xarelto) 15 mg PO HS 10/13/24 02/27/25 sertraline 100 mg tablet 100 mg PO DAILY 10/13/24 02/27/25 clopidogrel 75 mg tablet 75 mg PO DAILY 01/17/25 02/27/25 insulin lispro 100 unit/mL 0 sliding scale dose SQ TID 01/17/25 02/27/25 subcutaneous pen (Humalog KwikPen (U-100) Insulin) lidocaine 4 % topical patch 1 patch topical DAILY 01/17/25 02/27/25 (Lidocaine Pain Relief) mecobalamin (vitamin B12) 5,000 5,000 mcg PO DAILY 01/17/25 02/27/25 mcg chewable tablet metolazone 5 mg tablet 5 mg PO DAILY 01/17/25 02/27/25 potassium chloride 10 mEq 20 meq PO DAILY 01/17/25 02/27/25 capsule,extended release artificial 1 drp Eye-Left TID 02/27/25 02/27/25 tears(sravopr-qircihdo-getwpry) 0.1 %-0.3 %-0.2 % eye drops atorvastatin 40 mg tablet 40 mg PO HS 02/27/25 02/27/25 ferrous gluconate 324 mg (38 mg 324 mg PO BID 02/27/25 02/27/25 iron) tablet fluticasone propionate 50 1 spray intranasal DAILY 02/27/25 02/27/25 mcg/actuation nasal spray,suspension furosemide 40 mg tablet (Lasix) 40 mg PO BID 02/27/25 02/27/25 guaifenesin 100 mg/5 mL oral 200 mg PO TID 02/27/25 02/27/25 liquid (Daksha-Tussin) hydrocodone 7.5 mg-acetaminophen 1 tab PO QID PRN pain 02/27/25 02/27/25 325 mg tablet metoprolol tartrate 25 mg tablet 25 mg PO BID 02/27/25 02/27/25 Previous Rx's ?Medication ?Instructions ?Recorded nitroglycerin 0.4 mg sublingual 0.4 mg sublingual Q5M PRN chest 12/20/23 tablet pain #30 tabs lactulose 20 gram/30 mL oral 10 g (15 mL) PO BID 30 days #900 mL 10/18/24 solution polyethylene glycol 3350 17 17 g PO DAILY #510 grams 10/18/24 gram/dose oral powder (Miralax) sodium bicarbonate 325 mg tablet 325 mg PO BID 30 days #60 tabs 10/18/24 insulin glargine 100 unit/mL (3 15 unit (0.15 mL) SQ BID 60 days 11/14/24 mL) subcutaneous pen (Lantus #18 mL Solostar U-100 Insulin) budesonide 160 mcg-glycopyr 9 2 inh inhalation BID #10.7 grams 01/16/25 mcg-formot 4.8 mcg/actuation HFA inhaler (Breztri Aerosphere) spironolactone 25 mg tablet 50 mg (2 x 25 mg) PO DAILY 30 days 01/19/25 #60 tabs nitrofurantoin 100 mg PO Q12H 7 days #14 caps 02/23/25 monohydrate/macrocrystals 100 mg capsule (Macrobid) prochlorperazine maleate 5 mg 2.5 mg (1/2 x 5 mg) PO TID PRN 02/27/25 tablet (Compazine) nausea and vomiting #30 tabs Allergies Allergy/AdvReac Type Severity Reaction Status Date / Time methylprednisolone AdvReac Mild Elevated Verified 02/27/25 13:59 glucose PFSH [facility] Disclaimer: The information contained in this section may have been updated after the patient was seen, as this information can be updated by other users. Medical History (Updated 02/27/25 @ 14:15 by Shannon Fan APRN) Bilateral leg edema Acute on chronic heart failure with preserved ejection fraction (HFpEF) COPD (chronic obstructive pulmonary disease) Major depressive disorder with single episode Heart failure Myocardial infarct, old Pacemaker Hypothyroid Fall Chronic Kidney Disease Splenomegaly Cirrhosis of liver Ascites Seasonal allergies Hyperlipemia Hypertension Aneurysm of splenic artery Acute hyperkalemia Arthritis History of gastroesophageal reflux (GERD) Diabetes mellitus, type 2 History of cataract History of left heart catheterization (LHC) Gastritis PAF (paroxysmal atrial fibrillation) DKA (diabetic ketoacidosis) Lactose intolerance 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 Anemia Cardiac pacemaker in situ SSS (sick sinus syndrome) Coronary artery disease Surgical History Hx of cardiac cath Closed intertrochanteric fracture of left hip (~10/2024) History of esophagogastroduodenoscopy (EGD) Hx of tonsillectomy History of colonoscopy History of hysterectomy History of appendectomy History of cholecystectomy Family History Other Family history of cancer Social History Smoking Status: Never smoker second hand exposure: No alcohol intake: never substance use type: denies use current occupational status: disabled Travel in the last 8 weeks?: None household members: family housing: house caffeine: No Other Medical History Have you received the Flu Vaccine for this season: No Have you received the Pneumonia Vaccine: No ROS Obtained: Yes All systems reviewed & no additional complaints except as documented Physical Exam General General appearance: alert and lethargic Head Head exam: atraumatic Eye Eye exam: Present PERRL ENT ENT exam: Present mucous membranes dry Chest Chest inspection: Present normal inspection and symmetric chest wall rise Respiratory Respiratory exam: Present other (Bilateral rhonchi) Cardiovascular Cardiovascular exam: Present regular rate and irregular rhythm Abdominal Exam Abdominal exam: Present soft, distention and tenderness (non localized, no guarding) Extremities Exam Extremities exam: Present edema (Bilateral 1+ pitting edema) Back Exam Back exam: Present normal inspection; Absent CVA tenderness (R) or CVA tenderness (L) Neurological Exam Neurological exam: Present oriented X3 and other (Sleepy arousable to voice); Absent motor sensory deficit Skin Skin exam: Present warm Medical Decision Making Medical Records Screening: Per USPSTF and CDC recommendations, given the prevalence of disease in our region, it is our hospital?s policy to screen for HIV and viral Hepatitis for all patients aged 18 and over and those with ongoing risk factors. Thomas Inquiry Pt receiving controlled substance: No Vital Signs: 03/25/25 14:22 03/25/25 14:30 03/25/25 14:39 Temperature 98.2 F Temperature Source Oral Pulse Rate 94 H Pulse Rate [Right] 118 H Respiratory Rate 20 22 20 Blood Pressure 112/63 Blood Pressure [Right Arm] 103/56 L Blood Pressure Mean 70 Blood Pressure Mean [Right Arm] 71 Blood Pressure Source [Right Arm] Automatic Cuff Blood Pressure Position [Right Arm] Sitting 02 Sat by Pulse Oximetry 95 98 95 Oxygen Delivery Method Nasal Cannula Nasal Cannula Oxygen Flow Rate (LPM) 2 2 Lab Data Lab Results 03/25/25 14:12: WBC 11.7 H, RBC 3.61 L, Hgb 10.3 L, Hct 31.5 L, MCV 87.3, MCH 28.5, MCHC 32.7, RDW 16.9, Plt Count 117 L, MPV 10.1, Neut % (Auto) 87.7 H, Lymph % (Auto) 4.2 L, [place] % (Auto) 7.0, Eos % (Auto) 0.0 L, Baso % (Auto) 0.2, Neut # (Auto) 10.2 H, Lymph # (Auto) 0.5 L, [place] # (Auto) 0.8, Eos # (Auto) 0.0, Baso # (Auto) 0.0, Total Counted 100, Neutrophils % (Manual) 86 H, Lymphocytes % (Manual) 9 L, Monocytes % (Manual) 5, Platelet Estimate Slight decrease, RBC Morphology Normal, Sodium 133 L, Potassium 3.4 L, Chloride 88 L, Carbon Dioxide 30, Anion Gap 18.4 H, BUN 70 H, Creatinine 1.50 H, Estimated Creat Clear 25, Estimated GFR 33 L, Est GFR ( Amer) 40 L, Glucose 224 H, Calcium 9.6, Magnesium 1.8, Total Bilirubin 1.7 H, AST 43 H, ALT 26, Alkaline Phosphatase 107, Troponin I 0.02, NT-Pro-B Natriuret Pep 7270 H, Total Protein 7.7, Albumin 4.1, Globulin 3.6 H, Albumin/Globulin Ratio 1.1, Lipase < 10 L 03/25/25 14:38: SARS-CoV-2 (PCR) Not detected, Influenza A Untype (PCR) Not detected, Influenza Type B (PCR) Not detected 03/25/25 15:00: VBG pH 7.49 H, VBG pCO2 36.2, VBG pO2 46.2 H, VBG HCO3 27.0, VBG Total CO2 28.1 H, VBG O2 Saturation 81.8 H, VBG Base Excess 3.6 H, VBG Lactic Acid 3.4 H 03/25/25 15:10: Urine Color Yellow, Urine Appearance Clear, Urine pH 6.5, Ur Specific Nicolaus <= 1.005, Urine Protein Negative, Urine Glucose (UA) Negative, Urine Ketones Negative, Urine Blood Negative, Urine Nitrate Negative, Urine Bilirubin Negative, Urine Urobilinogen 1.0, Ur Leukocyte Esterase Negative, Urine RBC 3-5, Urine WBC Occasional, Ur Squamous Epith Cells Occasional, Amorphous Sediment Trace, Urine Bacteria Trace 03/25/25 14:12 03/25/25 14:12 Orders (Tests/Meds): ED MEDICATIONS Discontinued Medications Generic Name Dose Route Start Last Admin Trade Name Freq PRN Reason Stop Dose Admin Ondansetron HCl 4 mg 03/25/25 14:29 03/25/25 15:16 Ondansetron 4mg/2ml Vial IV 03/25/25 14:30 4 mg ONCE ONE Administration ORDERS Category Date Time Status XR chest portable Stat Exams 03/25/25 14:31 Taken Complete Blood Count Auto Diff Stat Lab 03/25/25 14:12 Completed Comprehensive Metabolic Panel Stat Lab 03/25/25 14:12 Completed Full Resp Panel w/COVID ([facility]) Routine Lab 03/25/25 14:38 Received Lipase Stat Lab 03/25/25 14:12 Completed Magnesium Stat Lab 03/25/25 14:12 Completed NT Pro Brain Natriuretic Pep. Stat Lab 03/25/25 14:12 Completed Rapid PCR Covid and Flu A/B Stat Lab 03/25/25 14:38 Completed Troponin I Q3H Lab 03/25/25 17:45 Ordered Troponin I Q3H Lab 03/25/25 20:45 Ordered Troponin I Stat Lab 03/25/25 14:12 Completed Urinalysis and Microscopic Stat Lab 03/25/25 15:10 Completed Venous Blood Gas Stat RT 03/25/25 15:00 Completed Medical Decision Narrative: In summary, this 89-year-old female presents to the emergency department today with altered mental status. On initial evaluation patient is rate controlled atrial fibrillation normotensive afebrile requiring 2 L nasal cannula. Differential diagnosis includes but is not limited to heart failure exacerbation pneumonia sepsis ACS arrhythmia HHS DKA. Based on these concerns, I ordered CBC CMP respiratory panel lipase magnesium BNP troponin UA VBG chest x-ray. ECG personally interpreted demonstrates rate controlled atrial fibrillation with PVCs noted no ST elevation ST depression concerning for acute ischemia. Labs personally reviewed demonstrate Hyperglycemia, leukocytosis elevated creatinine, stable anemia, elevated BNP elevated anion gap and elevated lactate XR personally interpreted demonstrates cardiomegaly no focal opacification I had an interactive discussion with hospital medicine agreeable to admit for atrial fibrillation RVR with heart failure exacerbation. Critical Care Critical Care Time Critical Care Time: No
--- NOTE | 2025-03-25 14:37 | PC.NURSE ---
family arrives to room 7. Bia ZAYAS to bedside to update family. HR noted to range from 90s-120 with occassional PVCs
--- NOTE | 2025-03-25 14:41 | PC.NURSE ---
Patients FSBS is 258
[2025-03-25 14:44] LABS: Albumin Level 4.1 g/dl (3.5-5.0); Chloride 88 mmol/L (98-107); Potassium 3.4 mmoL/L (3.5-5.1); Sodium 133 mmol/L (136-145)
[2025-03-25 14:45] LABS: Adenovirus,PCR Not Detected (NotDetected); Bordetella Pertussis Not Detected (NotDetected); Chlamydophila Pneumoniae, PCR Not Detected (NotDetected); Coronavirus 19, PCR Not Detected (NotDetected); Coronavirus 229E Not Detected (NotDetected); Coronavirus NL63 Not Detected (NotDetected); Coronavirus OC43 Not Detected (NotDetected); Coronovirus HKU1,PCR Not Detected (NotDetected); Human Metapneumovirus Not Detected (NotDetected); Influenza A, PCR Not Detected (NotDetected); Influenza AH1, 2009 Not Detected (NotDetected); Influenza AH1, PCR Not Detected (NotDetected); Influenza AH3,PCR Not Detected (NotDetected); Influenza B, PCR Not Detected (NotDetected); Mycoplasma Pneumoniae, PCR Not Detected (NotDetected); Parainfluenza 1, PCR Not Detected (NotDetected); Parainfluenza 2, PCR Not Detected (NotDetected); Parainfluenza 3, PCR Not Detected (NotDetected); Parainfluenza 4, PCR Not Detected (NotDetected); Respiratory Syncytial Virus Not Detected (NotDetected)
[2025-03-25 14:47] LABS: Alanine Aminotransferase 26 U/L (12-78); Albumin/Globulin Ratio 1.1 (1.1-1.8); Alkaline Phosphatase 107 U/L (38-126); Anion Gap 18.4 mEq/L (5-15); Aspartate Amino Transferase 43 U/L (14-36); Bilirubin,Total 1.7 mg/dl (0.2-1.3); Blood Urea Nitrogen 70 mg/dl (7-17); Calcium 9.6 mg/dl (8.4-10.2); Carbon Dioxide 30 mmol/L (22.0-30.0); Creatinine Clearance Estimated 25 mL/min (50-200); Estimated Glomerular Filt Rate 33 ml/min (>60); GFR (African American) 40 ML/MIN (>60); Globulin 3.6 g/dL (1.3-3.2); Glucose 224 mg/dl (74-100); Magnesium 1.8 mg/dl (1.6-2.3); Total Protein,Serum 7.7 g/dl (6.3-8.2)
[2025-03-25 14:50] LABS: Basophils % 0.2 % (0.1-2.0); Hematocrit 31.5 % (37.0-47.0); Hemoglobin 10.3 g/dL (12.2-16.2); Immature Granulocytes # 0.11 10^3uL; Immature Granulocytes % 0.9 %; Lymphocytes # 0.5 K/mm3 (0.7-4.5); Lymphocytes % 4.2 % (10-50); Mean Corpuscular HGB Conc 32.7 g/dL (31.8-35.4); Mean Corpuscular Hemoglobin 28.5 pg (27.0-31.2); Mean Corpuscular Volume 87.3 fl (81-99); Mean Platelet Volume 10.1 fl (7.4-10.4); Monocytes # 0.8 K/mm3 (0.1-1.0); Neutrophils # 10.2 K/mm3 (1.8-7.8); Neutrophils % 87.7 % (37.0-80.0); Nucleated Red Blood Cells # 0 10^3/uL; Nucleated Red Blood Cells % 0 %; Platelet Count 117 K/mm3 (142-424); Red Blood Count 3.61 M/mm3 (4.20-5.40); Red Cell Distribution Width 16.9 % (11.5-17.5); Red Cell Distribution Width-SD 54.6 fL; White Blood Count 11.7 K/mm3 (4.8-10.8)
[2025-03-25 14:55] LABS: MANUAL DIFFERENTIAL MANUAL DIFFERENTIAL (MANUAL DIFF)
[2025-03-25 14:57] LABS: Lipase < 10 U/L (23-300); NT Pro Brain Natriuretic Pep. 7270 pg/mL (0-450)
--- NOTE | 2025-03-25 14:58 | HMH.ITSTN ---
per Bia ZAYAS, pt does not need fluids for low gfr before CT scan with contrast
[2025-03-25 14:59] LABS: Troponin I 0.02 ng/ml (0.00-0.034)
[2025-03-25 15:03] LABS: Lymphocytes % 9 % (10-50); Monocytes % 5 % (2-9); Neutrophils % 86 % (42-76); Platelet Estimate Slight Decrease; RBC Morphology Normal; Total Cells Counted 100
[2025-03-25 15:06] LABS: VBG Base Excess 3.6 mmol/L (-2.4-2.3); VBG Oxygen Saturation 81.8 % (50-70); VBG PCO2 36.2 mmol/L (35-51); VBG PH 7.49 mmol/L (7.31-7.41); VBG PO2 46.2 mmol/L (28-40); VBG Total CO2 28.1 mmol/L (23-27)
[2025-03-25 15:09] LABS: Lactate Venous 3.4 mmol/L (0.4-2.0)
[2025-03-25 15:14] LABS: Microscopic, Urine URINE MICROSCOPIC (MICROSCOPIC)
[2025-03-25] MEDS: ONDANSETRON 4MG/2ML VIAL 4 MG IV (15:16)
[2025-03-25 15:21] LABS: Appearance,Urine CLEAR (Clear); Bilirubin,Urine Negative (Negative); Blood, Urine Negative (Negative); Color,Urine YELLOW (Yellow); Glucose,Urine (UA) Negative (Negative); Ketones,Urine Negative (Negative); Leukocyte Esterase,Urine Negative (Negative); Nitrate,Urine Negative (Negative); PH,Urine 6.5 (5.0-8.5); Protein,Urine Negative (Negative); Specific Gravity, Urine <= 1.005 (1.005-1.030)
--- OUTSIDE RECORDS SUMMARY | 2025-03-25 15:22 | XMS_ITS | CCD ---
Author Organization Unknown Care Team Providers Care Affiliate Marketing Specialist Name Role Phone Unavailable Primary Care Provider Unavailabl e Unavailable Chronic Care Management Unavaila ble Summary Purpose DataExchange Insurance Providers Payer name Policy type / Coverage type Covered constitution party ID Effective Begin Date Effective End Date [facility] [id number] Unknown Unknown Family History Family History data not found Medication Administered No Medication Administered data Reason For Visit No Reason For Visit data Medical Equipment No Medical Equipment data Advance Directives No Advance Directive data
--- OUTSIDE RECORDS SUMMARY | 2025-03-25 15:22 | XMS_ITS | CCD ---
Author Organization Unknown Care Team Providers Care Lodge Attendant Name Role Phone Unavailable Primary Care Provider Unavailabl e Unavailable Chronic Care Management Unavaila ble Summary Purpose DataExchange Insurance Providers Payer name Policy type / Coverage type Covered green party ID Effective Begin Date Effective End Date [facility] [id number] Unknown Unknown Family History Family History data not found Medication Administered No Medication Administered data Reason For Visit No Reason For Visit data Medical Equipment No Medical Equipment data Advance Directives No Advance Directive data
--- NOTE | 2025-03-25 15:23 | PC.NURSE ---
spoke with latasha garcia
[2025-03-25 15:28] LABS: Bacteria,Urine Trace /lpf; Squamous Epithelial Cell,Urine Occasional #/hpf (0-5); WBC,Urine Occasional #/hpf (0-3)
[2025-03-25 15:29] LABS: Amorphous Sediment,Urine Trace /lpf
--- NOTE | 2025-03-25 15:43 | PC.NURSE ---
report called to Cheryl
[2025-03-25] MEDS: humaLOG 100 UNITS/ML 10ML VIAL (SSI) SUBCUT ×2 (16:35→20:16)
[2025-03-25] MEDS: FUROSEMIDE 40MG/4ML VIAL 40 MG IV (16:35)
[2025-03-25 17:14] LABS: Rhinovirus/Enterovirus Detected (NotDetected)
--- NOTE | 2025-03-25 18:11 | PC.NURSE ---
med rec completed using external pharmacy and family/nurse at [facility]
[2025-03-25 18:27] LABS: Troponin I 0.02 ng/ml (0.00-0.034)
--- NOTE | 2025-03-25 18:47 | EXP.HP ---
History of Present Illness *Admission Date: 03/25/25 *Reason for visit:: Weakness *History of present illness: Kareen Mallory is an 89-year-old female with a medical history of HFpEF, Afib, COPD, SUMMERS cirrhosis, type 2 diabetes who presented from [facility] for progressive weakness. On route EMS found her to be in A-fib RVR and was given IV diltiazem 20 mg with improvement in heart rate. On my evaluation, patient appears weak. Daughters at bedside provided history. They states patient has been having productive cough for a few weeks, especially over the past week. [facility] without much improving in symptoms. Report low grade fevers this past week. Works up in ED significant for global weakness, normal WBC. BNP elevated to 7000 with mild pitting edema. Requiring 3L, new requirement. CXR without acute findings. HR rate controlled. Case discussed with ED provder and decision was made to admit patient for functional decline, and further workup of hypoxic respiratory failure, possible HFpEF exacerbation. [facility] Disclaimer: The information contained in this section may have been updated after the patient was seen, as this information can be updated by other users. Medical History (Updated 03/28/25 @ 11:09 by Connie Bates MD) Pneumonia Acute respiratory failure with hypoxia Bilateral leg edema Acute on chronic heart failure with preserved ejection fraction (HFpEF) COPD (chronic obstructive pulmonary disease) Major depressive disorder with single episode Heart failure Myocardial infarct, old Pacemaker Hypothyroid Fall Chronic Kidney Disease Splenomegaly Cirrhosis of liver Ascites Seasonal allergies Hyperlipemia Hypertension Aneurysm of splenic artery Acute hyperkalemia Arthritis History of gastroesophageal reflux (GERD) Diabetes mellitus, type 2 History of cataract History of left heart catheterization (LHC) Gastritis PAF (paroxysmal atrial fibrillation) DKA (diabetic ketoacidosis) Lactose intolerance 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 Anemia Cardiac pacemaker in situ SSS (sick sinus syndrome) Coronary artery disease Surgical History Hx of cardiac cath Closed intertrochanteric fracture of left hip (~10/2024) History of esophagogastroduodenoscopy (EGD) Hx of tonsillectomy History of colonoscopy History of hysterectomy History of appendectomy History of cholecystectomy Family History Other Family history of cancer Social History (Updated 03/25/25 @ 16:12 by Phuong Franz RN) Smoking Status: Never smoker second hand exposure: No alcohol intake: never substance use type: denies use current occupational status: disabled Travel in the last 8 weeks?: None household members: family housing: house caffeine: No Other Medical History Have you received the Flu Vaccine for this season: Yes Have you received the Pneumonia Vaccine: Yes Meds Home Medications and Allergies Home Medications ?Medication ?Instructions ?Recorded ?Confirmed ?Type levothyroxine 50 mcg tablet 50 mcg PO DAILY 10/13/24 03/25/25 History mirabegron 25 mg tablet,extended 25 mg PO DAILY 10/13/24 03/25/25 History release 24 hr (Myrbetriq) omeprazole 40 mg capsule,delayed 40 mg PO DAILY 10/13/24 03/25/25 History release rivaroxaban 15 mg tablet (Xarelto) 15 mg PO HS 10/13/24 03/25/25 History sertraline 100 mg tablet 100 mg PO DAILY 10/13/24 03/25/25 History lactulose 20 gram/30 mL oral 10 g (15 mL) PO BID 30 days #900 mL 10/18/24 03/25/25 Rx solution polyethylene glycol 3350 17 17 g PO DAILY #510 grams 10/18/24 03/25/25 Rx gram/dose oral powder (Miralax) sodium bicarbonate 325 mg tablet 325 mg PO BID 30 days #60 tabs 10/18/24 03/25/25 Rx insulin glargine 100 unit/mL (3 15 unit (0.15 mL) SQ BID 60 days 11/14/24 03/26/25 Rx mL) subcutaneous pen (Lantus #18 mL Solostar U-100 Insulin) budesonide 160 mcg-glycopyr 9 2 inh inhalation BID #10.7 grams 01/16/25 03/25/25 Rx mcg-formot 4.8 mcg/actuation HFA inhaler (Breztri Aerosphere) clopidogrel 75 mg tablet 75 mg PO DAILY 01/17/25 03/25/25 History insulin lispro 100 unit/mL 0 sliding scale dose SQ TID 01/17/25 03/26/25 History subcutaneous pen (Humalog KwikPen (U-100) Insulin) lidocaine 4 % topical patch 1 patch topical DAILY 01/17/25 03/25/25 History (Lidocaine Pain Relief) mecobalamin (vitamin B12) 5,000 5,000 mcg PO DAILY 01/17/25 03/25/25 History mcg chewable tablet metolazone 5 mg tablet 5 mg PO DAILY 01/17/25 03/25/25 History potassium chloride 10 mEq 20 meq PO DAILY 01/17/25 03/25/25 History capsule,extended release spironolactone 25 mg tablet 50 mg (2 x 25 mg) PO DAILY 30 days 01/19/25 03/25/25 Rx #60 tabs artificial 1 drp Eye-Left TID 02/27/25 03/25/25 History tears(wndwolp-xvrdvlix-qhdmpgm) 0.1 %-0.3 %-0.2 % eye drops atorvastatin 40 mg tablet 40 mg PO HS 02/27/25 03/25/25 History ferrous gluconate 324 mg (38 mg 324 mg PO BID 02/27/25 03/25/25 History iron) tablet fluticasone propionate 50 1 spray intranasal DAILY 02/27/25 03/25/25 History mcg/actuation nasal spray,suspension furosemide 40 mg tablet (Lasix) 40 mg PO BID 02/27/25 03/25/25 History guaifenesin 100 mg/5 mL oral 200 mg PO Q6 PRN Cough 02/27/25 03/25/25 History liquid (Dakhsa-Tussin) hydrocodone 7.5 mg-acetaminophen 1 tab PO QID PRN pain 02/27/25 03/25/25 History 325 mg tablet metoprolol tartrate 25 mg tablet 25 mg PO BID 02/27/25 03/25/25 History prochlorperazine maleate 5 mg 2.5 mg (1/2 x 5 mg) PO TID PRN 02/27/25 03/25/25 Rx tablet (Compazine) nausea and vomiting #30 tabs New Prescriptions to Start Prescriptions: Allergies Allergy/AdvReac Type Severity Reaction Status Date / Time methylprednisolone AdvReac Mild Elevated Verified 02/27/25 13:59 glucose Exam Data for Last 24 hours Vital signs and Labs for Last 24 Hours: Temp Pulse Resp BP Pulse Ox O2 Del Method O2 Flow Rate 98 F 121 H 18 114/63 97 Nasal Cannula 2 06/22/25 16:00 03/25/25 16:00 03/25/25 16:00 03/25/25 16:00 03/25/25 16:00 03/25/25 18:44 03/25/25 18:44 Laboratory Results - last 24 hr 03/25/25 14:12: WBC 11.7 H, RBC 3.61 L, Hgb 10.3 L, Hct 31.5 L, MCV 87.3, MCH 28.5, MCHC 32.7, RDW 16.9, Plt Count 117 L, MPV 10.1, Neut % (Auto) 87.7 H, Lymph % (Auto) 4.2 L, [place] % (Auto) 7.0, Eos % (Auto) 0.0 L, Baso % (Auto) 0.2, Neut # (Auto) 10.2 H, Lymph # (Auto) 0.5 L, [place] # (Auto) 0.8, Eos # (Auto) 0.0, Baso # (Auto) 0.0, Total Counted 100, Neutrophils % (Manual) 86 H, Lymphocytes % (Manual) 9 L, Monocytes % (Manual) 5, Platelet Estimate Slight decrease, RBC Morphology Normal, Sodium 133 L, Potassium 3.4 L, Chloride 88 L, Carbon Dioxide 30, Anion Gap 18.4 H, BUN 70 H, Creatinine 1.50 H, Estimated Creat Clear 25, Estimated GFR 33 L, Est GFR ( Amer) 40 L, Glucose 224 H, Calcium 9.6, Magnesium 1.8, Total Bilirubin 1.7 H, AST 43 H, ALT 26, Alkaline Phosphatase 107, Troponin I 0.02, NT-Pro-B Natriuret Pep 7270 H, Total Protein 7.7, Albumin 4.1, Globulin 3.6 H, Albumin/Globulin Ratio 1.1, Lipase < 10 L 03/25/25 14:38: Chlamy pneumoniae PCR Not detected, Adenovirus (PCR) Not detected, B. pertussis DNA (PCR) Not detected, Coronavirus OC43 (PCR) Not detected, Coronavirus HKU1 (PCR) Not detected, Coronavirus 229E (PCR) Not detected, SARS-CoV-2 (PCR) Not detected 03/25/25 14:38: SARS-CoV-2 (PCR) Not detected, Coronavirus NL63 (PCR) Not detected, Human Metapneumovir PCR Not detected, Influenza A (H1) PCR Not detected, Influ A (H1N1/09) PCR Not detected, Influenza A (H3) PCR Not detected, Influenza Type A (PCR) Not detected, Influenza A Untype (PCR) Not detected, Influenza Type B (PCR) Not detected 03/25/25 14:38: Influenza Type B (PCR) Not detected, M. pneumoniae (PCR) Not detected, Parainfluenza 1 (PCR) Not detected, Parainfluenza 2 (PCR) Not detected, Parainfluenza 3 (PCR) Not detected, Parainfluenza 4 (PCR) Not detected, RSV (PCR) Not detected, Entero/Rhino (PCR) Detected A 03/25/25 15:00: VBG pH 7.49 H, VBG pCO2 36.2, VBG pO2 46.2 H, VBG HCO3 27.0, VBG Total CO2 28.1 H, VBG O2 Saturation 81.8 H, VBG Base Excess 3.6 H, VBG Lactic Acid 3.4 H 03/25/25 15:10: Urine Color Yellow, Urine Appearance Clear, Urine pH 6.5, Ur Specific [place] <= 1.005, Urine Protein Negative, Urine Glucose (UA) Negative, Urine Ketones Negative, Urine Blood Negative, Urine Nitrate Negative, Urine Bilirubin Negative, Urine Urobilinogen 1.0, Ur Leukocyte Esterase Negative, Urine RBC 3-5, Urine WBC Occasional, Ur Squamous Epith Cells Occasional, Amorphous Sediment Trace, Urine Bacteria Trace 03/25/25 17:45: Troponin I 0.02 I & O for Last 24 hours: Intake & Output 03/22/25 03/23/25 03/24/25 03/25/25 23:59 23:59 23:59 23:59 Intake Total 120 / 120 Balance 120 / 120 Weight 59.874 kg Constitutional Constitutional: mild distress Comments: Globally weak. *Routine HEENT Exam Head: Present normocephalic Eye: Present EOMI and PERRL ENT: Present mucous membranes moist *Routine Neck Exam Neck: Present supple; Absent lymphadenopathy *Routine Respiratory Exam Respiratory: Present rhonchi; Absent CTA bilaterally *Routine Cardiovascular Exam Cardiovascular: Present RRR *Routine Abdominal Exam Abdominal: Present soft and normoactive bowel sounds; Absent tenderness *Routine Rectal Exam Rectal:: deferred *Routine Genitalia Exam Genitalia:: deferred *Routine Extremities Exam Extremities: Present edema; Absent cyanosis or clubbing *Routine Skin Exam Skin: Present warm; Absent rash *Routine Neurological Exam Neurological: Present alert Assessment and Plan *Assessment and plan (1) Heart failure: Status: Acute Category: Medical Code(s): I50.9 - Heart failure, unspecified (2) Rhinovirus infection: Status: Acute Category: Medical Code(s): B34.8 - Other viral infections of unspecified site Plan Kareen Mallory is an 89-year-old female with a medical history of HFpEF, Afib, COPD, SUMMERS cirrhosis, type 2 diabetes who presented from [facility] for progressive weakness. On route EMS found her to be in A-fib RVR and was given IV diltiazem 20 mg with improvement in heart rate. On my evaluation, patient appears weak. Daughters at bedside provided history. They states patient has been having productive cough for a few weeks, especially over the past week. [facility] without much improving in symptoms. Report low grade fevers this past week. Works up in ED significant for global weakness, normal WBC. BNP elevated to 7000 with mild pitting edema. Requiring 3L, new requirement. CXR without acute findings. HR rate controlled. Case discussed with ED provder and decision was made to admit patient for functional decline, and further workup of hypoxic respiratory failure, possible HFpEF exacerbation. #Acute viral syndrome #Rhinovirus #Weakness ? Patient and family complain of worsening productive cough over the past week, positive for rhinovirus on respiratory panel. ? Started levalbuterol, ipratropium every 6 hours. ? Follow-up sputum cultures. CXR without acute pneumonia or pulmonary edema. ? Daughter states she does not think that patient is able to inhale her Breztri properly at nursing facility, will plan to discharge with nebs. #HFpEF exacerbation #A-fib ? Given IV Lasix 40 mg once. Continue home p.o. Lasix 40 mg twice daily, spironolactone 50 mg, metolazone 5 mg. ? Continue metoprolol titrate 25 mg twice daily, Xarelto 15 mg. #SUMMERS cirrhosis ? Continue Lasix, spironolactone, lactulose. Stable at this time. ? Follow-up morning ammonia. #CAD with stents ? Continue Plavix, statin. #CKD stage III ? Creatinine 1.6, GFR 30. Stable at this time. #Hypothyroidism ? Continue home levothyroxine. Follow-up TFTs. #Anxiety/depression ? Continue home sertraline. Full code DVT prophylaxis: On Xarelto
[2025-03-25] MEDS: PROMETHAZINE HCL 25MG/ML 1ML VIAL 12.5 MG IV (18:53)
[2025-03-25 19:08] LABS: Reflex Lactic Add Lactic Reflex
[2025-03-25 19:19] LABS: Lactic Acid Follow Up (RFLX 1) 2.8 mmol/L (0.7-2.1)
[2025-03-25] MEDS: PANTOPRAZOLE 40MG TABLET 40 MG PO (20:07)
[2025-03-25] MEDS: FUROSEMIDE 40 MG TABLET PO (20:07)
[2025-03-25] MEDS: ATORVASTATIN 40MG TABLET 40 MG PO (20:07)
[2025-03-25] MEDS: LACTULOSE 10 EACH PO (20:07)
[2025-03-25] MEDS: POTASSIUM CHLORIDE 20MEQ TAB 40 MEQ PO (20:07)
[2025-03-25] MEDS: RIVAROXABAN 15MG TABLET 15 MG PO (20:07)
[2025-03-25] MEDS: METOPROLOL TARTRATE 25MG TABLET 25 MG PO (20:07)
[2025-03-25] MEDS: INSULIN GLARGINE 100 UNITS/ML 3ML FLEXPEN 15 UNIT SUBCUT (20:16)
[2025-03-25 20:21] LABS: POC Glucose,Bedside 187 (70-110)
[2025-03-25] MEDS: IPRATROPIUM BROMIDE 0.5 MG/2.5ML SOLUTION IH (22:58)
[2025-03-26] VITALS (11 sets, daily range): BP systolic 91–113; BP diastolic 51–65; PULSE 77–125; RESP 14–22; TEMP 36.7–38; O2SAT 93–100; BMI 25.2
[2025-03-26] MEDS: POTASSIUM CHLORIDE 20MEQ TAB 40 MEQ PO (00:18)
--- NOTE | 2025-03-26 04:00 | PC.NURSE ---
Patient is alert and oriented x4; no periods of confusion were noted during this shift. Her daughter has remained at the bedside. She was observed to have eyes closed, respirations even and unlabored on 2 L of oxygen via nasal cannula, and no apparent distress throughout the majority of the night. Orders for breathing treatments were obtained by Zion ERICKSON this shift due to audible wheezing and the patient's verbal statement of having difficulties with expelling her sputum. Upon auscultation of her lungs, diminished sounds were heard throughout. Aspiration precautions taken this shift (sitting patient upright 90 degrees during any kind of swallowing, chin-tuck technique encouraged, slow and thorough chewing/swallowing). Oral medications were administered in applesauce and vanilla pudding to aid with swallowing. Electrolyte replacement protocol was completed orally this shift due to low potassium value of 3.4 (resulted 03/25/25, 14:12). A female purewick is in place to monitor urinary output, measured and documented accordingly. Skin issues were documented as appropriately in this shift's nursing biophysical; skin tear on right elbow is dressed with a non-adherent pad and tegaderm. Abdomen appearance is distended and round, non-tender upon palpation. Trace, generalized edema noted for the patient. Elevated afib on telemetry. ACHS glucose checks performed. Patient requires at least x2 assistance during any ambulation and transfers. At this time, the patient is resting in bed without any further complaints. No new needs at this time. Call light within reach. Droplet precautions ongoing for Entero/Rhinovirus.
[2025-03-26 05:31] LABS: Basophils % 0.2 % (0.1-2.0); Hematocrit 29.4 % (37.0-47.0); Hemoglobin 9.4 g/dL (12.2-16.2); Immature Granulocytes # 0.08 10^3uL; Immature Granulocytes % 0.9 %; Lymphocytes # 0.4 K/mm3 (0.7-4.5); Lymphocytes % 4.8 % (10-50); Mean Corpuscular Hemoglobin 28.1 pg (27.0-31.2); Mean Corpuscular Volume 87.8 fl (81-99); Mean Platelet Volume 10.2 fl (7.4-10.4); Monocytes # 0.6 K/mm3 (0.1-1.0); Monocytes % 6.8 % (1.7-9.3); Neutrophils % 87.3 % (37.0-80.0); Nucleated Red Blood Cells # 0 10^3/uL; Nucleated Red Blood Cells % 0 %; Platelet Count 106 K/mm3 (142-424); Red Blood Count 3.35 M/mm3 (4.20-5.40); Red Cell Distribution Width 16.9 % (11.5-17.5); Red Cell Distribution Width-SD 54.2 fL; White Blood Count 9.1 K/mm3 (4.8-10.8)
[2025-03-26 05:32] LABS: MANUAL DIFFERENTIAL MANUAL DIFFERENTIAL (MANUAL DIFF)
[2025-03-26 05:34] LABS: Albumin Level 3.6 g/dl (3.5-5.0); Chloride 90 mmol/L (98-107); Sodium 131 mmol/L (136-145)
[2025-03-26 05:35] LABS: Potassium 3.8 mmoL/L (3.5-5.1)
[2025-03-26 05:37] LABS: Alanine Aminotransferase 17 U/L (12-78); Albumin/Globulin Ratio 1.1 (1.1-1.8); Alkaline Phosphatase 89 U/L (38-126); Anion Gap 15.8 mEq/L (5-15); Aspartate Amino Transferase 29 U/L (14-36); Blood Urea Nitrogen 74 mg/dl (7-17); Carbon Dioxide 29 mmol/L (22.0-30.0); Creatinine Clearance Estimated 25 mL/min (50-200); Estimated Glomerular Filt Rate 30 ml/min (>60); GFR (African American) 37 ML/MIN (>60); Globulin 3.3 g/dL (1.3-3.2); Total Protein,Serum 6.9 g/dl (6.3-8.2)
[2025-03-26 05:38] LABS: Calcium 9.2 mg/dl (8.4-10.2); Glucose 208 mg/dl (74-100); Magnesium 1.7 mg/dl (1.6-2.3)
[2025-03-26] MEDS: LEVOTHYROXINE 50MCG (0.05MG) TAB 50 MCG PO (06:25)
[2025-03-26] MEDS: ONDANSETRON 4MG/2ML VIAL 4 MG IV (06:35)
[2025-03-26 06:36] LABS: POC Glucose,Bedside 219 (70-110)
[2025-03-26] MEDS: humaLOG 100 UNITS/ML 10ML VIAL (SSI) SUBCUT ×4 (06:36→20:26)
[2025-03-26] MEDS: LEVALBUTEROL 1.25MG/3ML NEB 1.25 MG IH ×3 (06:38→18:38)
--- NOTE | 2025-03-26 07:52 | SW/DCPLANNER ---
Addendum entered by [facility] 03/30/25 10:57: I have updated Trinh w/ [place] [facility] that patient will return [facility] level [facility] care today. Addendum entered by [facility] 03/29/25 12:40: I have updated Trinh w/ [facility] that discharge has been pushed back till tomorrow 03/30. Addendum entered by [facility] 03/28/25 13:10: I have updated Trinh that plan is to return home tomorrow [facility] level [facility] care. Patient's family does agree with this plan. Addendum entered by [facility] 03/27/25 10:42: I have updated Trinh patiño/ [facility] that patient will be ready for discharge tomorrow pending no setbacks. Addendum entered by [facility] 03/26/25 14:33: I have updated Trinh that patient will not discharge today. Addendum entered by [facility] 03/26/25 12:31: I have updated Trinh that patient will return today. Original Note: Patient currently resides at [facility] level of care. I will continue to follow up w/ Trinh at [place] until patient is medically stable for discharge. Discharge date is unknown at this time.
[2025-03-26 08:36] LABS: Lymphocytes % 7 % (10-50); Monocytes % 4 % (2-9); Neutrophils % 89 % (42-76); Total Cells Counted 100
[2025-03-26 08:37] LABS: Platelet Estimate Slight Decrease; RBC Morphology Normal
[2025-03-26] MEDS: SPIRONOLACTONE 25MG TABLET 50 MG PO (09:25)
[2025-03-26] MEDS: SERTRALINE 100MG TABLET 100 MG PO (09:25)
[2025-03-26] MEDS: METOPROLOL TARTRATE 25MG TABLET 25 MG PO ×2 (09:25→20:25)
[2025-03-26] MEDS: ENOXAPARIN 30MG/0.3ML SYRINGE 30 MG SUBCUT (09:27)
[2025-03-26] MEDS: LACTULOSE 20GM/30ML UDC 10 GM PO ×2 (09:27→20:26)
[2025-03-26] MEDS: CLOPIDOGREL 75MG TAB 75 MG PO (09:28)
[2025-03-26] MEDS: POLYETHYLENE GLYCOL 3350 238GM POWDER 17 GM PO (09:32)
[2025-03-26] MEDS: INSULIN GLARGINE 100 UNITS/ML 3ML FLEXPEN 15 UNIT SUBCUT ×2 (09:43→20:27)
--- NOTE | 2025-03-26 09:59 | HMH.OTEV ---
OT Inpatient Evaluation Rehab OT IP Evaluation Start: 03/25/25 16:19 Freq: ONCE Status: Active Protocol: Document 03/26/25 09:52 BHUPINDER (Rec: 03/26/25 09:58 BHUPINDER [id number]) Rehab OT IP Assessment Subjective History Per H&P: Kareen Mallory is an 89-year-old female who presented from [facility] for progressive weakness. On route EMS found her to be in A-fib RVR and was given IV diltiazem 20 mg with improvement in heart rate. #Acute viral syndrome #Rhinovirus ? Patient complains of worsening productive cough over the past few weeks. ? Follow-up sputum cultures. CXR without acute pneumonia or pulmonary edema. ? Xopenex, ipratropium every 6 hours. Continue home Breztri. Subjective Thank you. Pt was supine in bed when therapy entered. pt agreed to sit up on EOB for nursing to give medication. Pt orient x3. Pt easy to wake but remained fatigued throughout. Pt's family member answered most history questions, pt does not drive and lives with son in single story home with no steps, needs assistance for ADLs/IADLs, has no shower chair but has grab bars. Pt has been at [facility] since November. Pt was making good progress with therapy but has recently declined in her mobility. Pt primarily uses a w/c and was ambulatory for small distances. Pt now has difficulty getting self up in bed and transferring. Pt was Mod A x2 to go from supine to EOB. Pt demo good static sitting balance for 1 minute while nursing attempted to mix medication. Pt reported they needed to lay back down. Pt went from EOB to supine in bed with Mod A x2. Pt left with nursing and call light within reach and family member present. Objective Patient Orientation Person,Place,Birthday Right Upper WFL Extremity Gross ROM Left Upper Extremity WFL Gross ROM Shoulder ROM Muscle Weakness Limitations Elbow ROM Muscle Weakness Limitations Bed Mobility bed mobility-scooting,bed mobility - supine/sit Assist Level Moderate x 2 (50% assist) Decrease in Yes Endurance Rehab OT IP prob,goals,plan Problems Date of Evaluation: 03/26/25 OT IP Problems Bed Mobility,Transfers,Balance,Self care,Safety Rehab Potential Rehab Potential Good Equipment Needs Assistive Devices Standard Walker,Wheelchair Plan OT intervention Plan Bed Mobility,Transfers,Balance,Self care,Safety, Therapeutic Exercise OT Plan Frequency Daily Duration LOS Discharge Goals Bed Mobility Ability Assistance x1 Sit to Stand Chair Moderate x 1 (50% assist) Transfer Ability Chair Transfer Moderate x 1 (50% assist) Ability Chair Transfer Sit to/from Ambulatory Technique Chair Transfer Standard Walker Assistive Devices Feeding Ability Assist with Tray Set Up Decrease in No Endurance Discharge Plan OT Discharge Plan At this time, pt would benefit from skilled acute OT services and interventions to address functional decline in occupational performance. Once DC from [facility], pt would benefit with rehab placement to further address functional limitations in occupational performance. Eval Complexity Eval Charge Codes 95213 - Moderate Complexity PHYSICIAN CERTIFICATION: I certify the specified therapy services for Kareen Mallory are required, authorized, and reviewed every 30 days.
[2025-03-26 10:00] LABS: POC Glucose,Bedside 307 (70-110)
--- NOTE | 2025-03-26 10:13 | HMH.PTEV ---
Physical Therapy Evaluation Rehab PT IP Evaluation Start: 03/25/25 16:19 Freq: .once Status: Active Protocol: Document 03/26/25 08:42 MARTHA (Rec: 03/26/25 08:50 MARTHA [id number]) Subjective/History History History Per H&P: Kareen Mallory is an 89-year-old female who presented from [facility] for progressive weakness. On route EMS found her to be in A-fib RVR and was given IV diltiazem 20 mg with improvement in heart rate. #Acute viral syndrome #Rhinovirus ? Patient complains of worsening productive cough over the past few weeks. ? Follow-up sputum cultures. CXR without acute pneumonia or pulmonary edema. ? Xopenex, ipratropium every 6 hours. Continue home Breztri. Subjective Subjective Pt asleep with family member in room. Pt easy to wake but remained fatigued throughout. Pt's family member answered most history questions. Pt has been at [facility] since November. Pt was making good progress with therapy but has recently declined in her mobility. Pt primarily uses a w/c and was ambulatory for small distances. Pt now has difficulty getting self up in bed and transferring. New diagnosis of No cancer in past 12 months? [facility] How much help from another person do you currently need... Turning from your A little back to your side while in a flat bed without using bedrails? Moving from lying on A lot back to sitting on the side of a flat bed without using bedrails? Moving to and from a A lot bed to a chair ( including a wheelchair)? Standing up from a A lot chair using your arms? (e.g., wheelchair, bedside chair) Walking in hospital A lot room? Climbing 3-5 steps A lot with a railing? Mobility Score 13 Mobility Level [facility] Mobility 4 Move to chair/commode Mobility Calculator Rehab PT IP Eval Objective Appearance Patient Behavior Appropriate,Cooperative Patient Orientation Person Difficulty following none instructions Speech Pattern Soft-Spoken Ambulation Patient Able to No Ambulate Balance Ability to Arise Able, uses arms to help Sitting Balance Leans or slides in chair Standing Balance Unsteady Transfers Bed Transfer Ability Moderate x 1 (50% assist) Rehab PT IP prob,goals,plan Problems Date of Evaluation: 03/26/25 PT IP Problems Bed Mobility,Transfers,Gait,Balance,Self care,Safety Rehab Potential Rehab Potential Good Plan PT Intervention Plan Bed Mobility,Transfers,Gait,Balance,Self care,Safety, Therapeutic Exercise Other Intervention 1-2 times Plan PT Plan Frequency Daily Duration LOS Discharge Goals Bed Transfer Ability Minimal x 1 (25% assist) Sit to Stand Chair Moderate x 1 (50% assist) Transfer Ability Discharge Plan PT Discharge Plan Pt presents below her baseline in functional mobility. Pt would benefit from skilled PT/rehabilitation while at [facility] to address her mobility deficits and maximize safety. Pt would benefit from skilled acute care PT while at [facility] to prevent further functional decline. Eval Complexity Eval Charge Codes 96533 - Moderate Complexity PHYSICIAN CERTIFICATION: I certify the specified therapy services for Kareen Mallory are required, authorized, and reviewed every 30 days.
--- NOTE | 2025-03-26 10:22 | PC.NURSE ---
notified MD of mag of 1.7 and creatinine clearance of 25, no mag given per MD.
[2025-03-26] MEDS: ACETAMINOPHEN 325MG TAB 650 MG PO (11:01)
[2025-03-26] MEDS: DOXYCYCLINE HYCL 100 MG TABLET PO ×2 (11:02→20:25)
[2025-03-26 11:19] LABS: POC Glucose,Bedside 304 (70-110)
[2025-03-26] MEDS: IPRATROPIUM BROMIDE 0.5 MG/2.5ML SOLUTION IH ×2 (11:49→18:38)
--- NOTE | 2025-03-26 12:11 | EXP.CARD.CON ---
Documented by User: RENNY Green 03/26/25 12:29 History of Present Illness History of Present Illness Consult date: 03/26/25 Requesting physician: Richard Munoz Consult reason: congestive heart failure Chief complaint: SOA, AMS, lethargy Additional Medical History:: CAD is present -[facility], 09/2023, Lithotripsy with SIERRA to ostial RCA and Prox PDA persistent moderate stenosis throughout the proximal and mid small caliber LAD -Hx of SIERRA to the circ in 09/2017. -On Plavix Hyperlipidemia -LDL goal is < 55 -LDL is 36. Managed by PCP, on statin. A-fib is pacing. -A/C with Xarelto. Denies bleeding issues. PPM in place-[facility], implanted 2016 -Download today, 04/13/2024, battery life 1.6 years, a paced 50%, V paced 36%. No ventricular arrhythmias. PAD is present,stable. HFimpEF -Echo, 03/2025, normal LV systolic function, severe RV dilation with mild reduction in RV function. Biatrial dilation with severe TR, mild MR/PI. No change from 01/2024 study. -EF 01/2024 is 55%, biatrial enlargement, severe TR with severe RV dilatation and mild RV function reduction -CHF is stable. DM is present -controlled per PCP. 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 Chest CT, 03/30/2024, severe right lower lobe atelectasis with moderate right pleural effusion. Left lung unremarkable History of present illness: 89-year-old white female patient well-known to us in the cardiology clinic presented to [facility] ER from [facility] for progressive weakness. She was noted to be in A-fib with RVR and route by EMS and was given IV diltiazem with improvement of heart rate. Subsequently since admission she is found to have acute viral syndrome with rhinovirus. She has been started on respiratory treatment with improvement in symptoms. Chest x-ray shows no acute pneumonia or pulmonary edema. She did receive a dose of IV Lasix this admission and then resumption of her home Lasix and spironolactone and metolazone doses. She has a history of ascites with prior paracentesis most recently 2 to 3 months ago. Cardiology was asked to see due to possible acute on chronic HFpEF. Echocardiogram earlier this month shows preserved ejection fraction with severe RV dilation and mildly reduced RV function with severe TR. Essentially unchanged from November 2023 study. Troponins this admission are normal. Chest x-ray did not show any focal consolidation. [facility] Disclaimer: The information contained in this section may have been updated after the patient was seen, as this information can be updated by other users. Medical History (Updated 03/26/25 @ 12:23 by RENNY Green) Bilateral leg edema Acute on chronic heart failure with preserved ejection fraction (HFpEF) COPD (chronic obstructive pulmonary disease) Major depressive disorder with single episode Heart failure Myocardial infarct, old Pacemaker Hypothyroid Fall Chronic Kidney Disease Splenomegaly Cirrhosis of liver Ascites Seasonal allergies Hyperlipemia Hypertension Aneurysm of splenic artery Acute hyperkalemia Arthritis History of gastroesophageal reflux (GERD) Diabetes mellitus, type 2 History of cataract History of left heart catheterization (LHC) Gastritis PAF (paroxysmal atrial fibrillation) DKA (diabetic ketoacidosis) Lactose intolerance 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 Anemia Cardiac pacemaker in situ SSS (sick sinus syndrome) Coronary artery disease Surgical History Hx of cardiac cath Closed intertrochanteric fracture of left hip (~10/2024) History of esophagogastroduodenoscopy (EGD) Hx of tonsillectomy History of colonoscopy History of hysterectomy History of appendectomy History of cholecystectomy Family History Other Family history of cancer Social History (Updated 03/25/25 @ 16:12 by Phuong Franz RN) Smoking Status: Never smoker second hand exposure: No alcohol intake: never substance use type: denies use current occupational status: disabled Travel in the last 8 weeks?: None household members: family housing: house caffeine: No Review of Systems Review of Systems Review of systems:: pertinent systems reviewed and negative unless documented below *Cardiovascular Cardiovascular: Denies chest pain and Reports dyspnea *Respiratory Respiratory: Reports dyspnea *Gastrointestinal Gastrointestinal: Denies nausea Exam Data for Last 24 hours Vital signs and Labs for Last 24 Hours: Temp Pulse Resp BP Pulse Ox O2 Del Method O2 Flow Rate 100.1 F H 80 18 113/55 L 97 Nasal Cannula 2.5 03/26/25 08:00 03/26/25 11:53 03/26/25 08:00 03/26/25 08:00 03/26/25 08:00 03/26/25 09:00 03/26/25 08:00 FiO2 28 03/25/25 23:03 Laboratory Results - last 24 hr 03/25/25 14:12: WBC 11.7 H, RBC 3.61 L, Hgb 10.3 L, Hct 31.5 L, MCV 87.3, MCH 28.5, MCHC 32.7, RDW 16.9, Plt Count 117 L, MPV 10.1, Neut % (Auto) 87.7 H, Lymph % (Auto) 4.2 L, Dickens % (Auto) 7.0, Eos % (Auto) 0.0 L, Baso % (Auto) 0.2, Neut # (Auto) 10.2 H, Lymph # (Auto) 0.5 L, Dickens # (Auto) 0.8, Eos # (Auto) 0.0, Baso # (Auto) 0.0, Total Counted 100, Neutrophils % (Manual) 86 H, Lymphocytes % (Manual) 9 L, Monocytes % (Manual) 5, Platelet Estimate Slight decrease, RBC Morphology Normal, Sodium 133 L, Potassium 3.4 L, Chloride 88 L, Carbon Dioxide 30, Anion Gap 18.4 H, BUN 70 H, Creatinine 1.50 H, Estimated Creat Clear 25, Estimated GFR 33 L, Est GFR ( Amer) 40 L, Glucose 224 H, Calcium 9.6, Magnesium 1.8, Total Bilirubin 1.7 H, AST 43 H, ALT 26, Alkaline Phosphatase 107, Troponin I 0.02, NT-Pro-B Natriuret Pep 7270 H, Total Protein 7.7, Albumin 4.1, Globulin 3.6 H, Albumin/Globulin Ratio 1.1, Lipase < 10 L 03/25/25 14:38: Chlamy pneumoniae PCR Not detected, Adenovirus (PCR) Not detected, B. pertussis DNA (PCR) Not detected, Coronavirus OC43 (PCR) Not detected, Coronavirus HKU1 (PCR) Not detected, Coronavirus 229E (PCR) Not detected, SARS-CoV-2 (PCR) Not detected 03/25/25 14:38: SARS-CoV-2 (PCR) Not detected, Coronavirus NL63 (PCR) Not detected, Human Metapneumovir PCR Not detected, Influenza A (H1) PCR Not detected, Influ A (H1N1/09) PCR Not detected, Influenza A (H3) PCR Not detected, Influenza Type A (PCR) Not detected, Influenza A Untype (PCR) Not detected, Influenza Type B (PCR) Not detected 03/25/25 14:38: Influenza Type B (PCR) Not detected, M. pneumoniae (PCR) Not detected, Parainfluenza 1 (PCR) Not detected, Parainfluenza 2 (PCR) Not detected, Parainfluenza 3 (PCR) Not detected, Parainfluenza 4 (PCR) Not detected, RSV (PCR) Not detected, Entero/Rhino (PCR) Detected A 03/25/25 15:00: VBG pH 7.49 H, VBG pCO2 36.2, VBG pO2 46.2 H, VBG HCO3 27.0, VBG Total CO2 28.1 H, VBG O2 Saturation 81.8 H, VBG Base Excess 3.6 H, VBG Lactic Acid 3.4 H 03/25/25 15:10: Urine Color Yellow, Urine Appearance Clear, Urine pH 6.5, Ur Specific [place] <= 1.005, Urine Protein Negative, Urine Glucose (UA) Negative, Urine Ketones Negative, Urine Blood Negative, Urine Nitrate Negative, Urine Bilirubin Negative, Urine Urobilinogen 1.0, Ur Leukocyte Esterase Negative, Urine RBC 3-5, Urine WBC Occasional, Ur Squamous Epith Cells Occasional, Amorphous Sediment Trace, Urine Bacteria Trace 03/25/25 17:45: Troponin I 0.02 03/25/25 18:40: Lactate 2.8 H 03/25/25 20:11: POC Glucose 187 H 03/26/25 05:10: WBC 9.1, RBC 3.35 L, Hgb 9.4 L, Hct 29.4 L, MCV 87.8, MCH 28.1, MCHC 32.0, RDW 16.9, Plt Count 106 L, MPV 10.2, Neut % (Auto) 87.3 H, Lymph % (Auto) 4.8 L, Dickens % (Auto) 6.8, Eos % (Auto) 0.0 L, Baso % (Auto) 0.2, Neut # (Auto) 8.0 H, Lymph # (Auto) 0.4 L, Dickens # (Auto) 0.6, Eos # (Auto) 0.0, Baso # (Auto) 0.0, Total Counted 100, Neutrophils % (Manual) 89 H, Lymphocytes % (Manual) 7 L, Monocytes % (Manual) 4, Platelet Estimate Slight decrease, RBC Morphology Normal, Sodium 131 L, Potassium 3.8, Chloride 90 L, Carbon Dioxide 29, Anion Gap 15.8 H, BUN 74 H, Creatinine 1.60 H, Estimated Creat Clear 25, Estimated GFR 30 L, Est GFR ( Amer) 37 L, Glucose 208 H, Calcium 9.2, Magnesium 1.7, Total Bilirubin 2.0 H, AST 29 D, ALT 17 D, Alkaline Phosphatase 89, Total Protein 6.9, Albumin 3.6 D, Globulin 3.3 H, Albumin/Globulin Ratio 1.1 03/26/25 06:28: POC Glucose 219 H 03/26/25 09:41: POC Glucose 307 H* 03/26/25 11:00: POC Glucose 304 H* I & O for Last 24 hours: Intake & Output 03/24/25 03/25/25 03/26/25 03/27/25 11:59 11:59 11:59 11:59 Intake Total 1264 / 1264 Output Total 900 / 900 Balance 364 / 364 Weight 142 lb 8 oz Constitutional Constitutional: no acute distress *Routine Respiratory Exam Respiratory: Present decreased breath sounds; Absent rhonchi or wheezes *Routine Cardiovascular Exam Cardiovascular: Present irregularly irregular *Routine Abdominal Exam Abdominal: Absent tenderness Meds Home Medications and Allergies Home Medications ?Medication ?Instructions ?Recorded ?Confirmed ?Type levothyroxine 50 mcg tablet 50 mcg PO DAILY 10/13/24 03/25/25 History mirabegron 25 mg tablet,extended 25 mg PO DAILY 10/13/24 03/25/25 History release 24 hr (Myrbetriq) omeprazole 40 mg capsule,delayed 40 mg PO DAILY 10/13/24 03/25/25 History release rivaroxaban 15 mg tablet (Xarelto) 15 mg PO HS 10/13/24 03/25/25 History sertraline 100 mg tablet 100 mg PO DAILY 10/13/24 03/25/25 History lactulose 20 gram/30 mL oral 10 g (15 mL) PO BID 30 days #900 mL 10/18/24 03/25/25 Rx solution polyethylene glycol 3350 17 17 g PO DAILY #510 grams 10/18/24 03/25/25 Rx gram/dose oral powder (Miralax) sodium bicarbonate 325 mg tablet 325 mg PO BID 30 days #60 tabs 10/18/24 03/25/25 Rx insulin glargine 100 unit/mL (3 15 unit (0.15 mL) SQ BID 60 days 11/14/24 03/26/25 Rx mL) subcutaneous pen (Lantus #18 mL Solostar U-100 Insulin) budesonide 160 mcg-glycopyr 9 2 inh inhalation BID #10.7 grams 01/16/25 03/25/25 Rx mcg-formot 4.8 mcg/actuation HFA inhaler (Breztri Aerosphere) clopidogrel 75 mg tablet 75 mg PO DAILY 01/17/25 03/25/25 History insulin lispro 100 unit/mL 0 sliding scale dose SQ TID 01/17/25 03/26/25 History subcutaneous pen (Humalog KwikPen (U-100) Insulin) lidocaine 4 % topical patch 1 patch topical DAILY 01/17/25 03/25/25 History (Lidocaine Pain Relief) mecobalamin (vitamin B12) 5,000 5,000 mcg PO DAILY 01/17/25 03/25/25 History mcg chewable tablet metolazone 5 mg tablet 5 mg PO DAILY 01/17/25 03/25/25 History potassium chloride 10 mEq 20 meq PO DAILY 01/17/25 03/25/25 History capsule,extended release spironolactone 25 mg tablet 50 mg (2 x 25 mg) PO DAILY 30 days 01/19/25 03/25/25 Rx #60 tabs artificial 1 drp Eye-Left TID 02/27/25 03/25/25 History tears(btxkrkg-[id number]-aabhkiq) 0.1 %-0.3 %-0.2 % eye drops atorvastatin 40 mg tablet 40 mg PO HS 02/27/25 03/25/25 History ferrous gluconate 324 mg (38 mg 324 mg PO BID 02/27/25 03/25/25 History iron) tablet fluticasone propionate 50 1 spray intranasal DAILY 02/27/25 03/25/25 History mcg/actuation nasal spray,suspension furosemide 40 mg tablet (Lasix) 40 mg PO BID 02/27/25 03/25/25 History guaifenesin 100 mg/5 mL oral 200 mg PO Q6 PRN Cough 02/27/25 03/25/25 History liquid (Daksha-Tussin) hydrocodone 7.5 mg-acetaminophen 1 tab PO QID PRN pain 02/27/25 03/25/25 History 325 mg tablet metoprolol tartrate 25 mg tablet 25 mg PO BID 02/27/25 03/25/25 History prochlorperazine maleate 5 mg 2.5 mg (1/2 x 5 mg) PO TID PRN 02/27/25 03/25/25 Rx tablet (Compazine) nausea and vomiting #30 tabs New Prescriptions to Start Prescriptions: Allergies Allergy/AdvReac Type Severity Reaction Status Date / Time methylprednisolone AdvReac Mild Elevated Verified 02/27/25 13:59 glucose Assessment and Plan *Assessment and plan (1) Rhinovirus infection: Status: Acute Category: Medical Code(s): B34.8 - Other viral infections of unspecified site (2) Altered awareness, transient: Status: Acute Category: Medical Code(s): R40.4 - Transient alteration of awareness (3) Lethargy: Status: Acute Category: Medical Code(s): R53.83 - Other fatigue (4) Acute on chronic heart failure with preserved ejection fraction (HFpEF): Status: Acute Category: Medical Code(s): I50.33 - Acute on chronic diastolic (congestive) heart failure (5) Cirrhosis: Status: Acute Qualifiers: Ascites presence: with ascites Hepatic cirrhosis type: unspecified hepatic cirrhosis Qualified Code(s): K74.60 - Unspecified cirrhosis of liver; R18.8 - Other ascites Category: Medical Code(s): K74.60 - Unspecified cirrhosis of liver (6) Ascites: Status: Acute Qualifiers: Ascites type: other type Qualified Code(s): R18.8 - Other ascites Category: Medical Code(s): R18.8 - Other ascites (7) Atrial fibrillation: Status: Acute Qualifiers: Atrial fibrillation type: unspecified chronic Qualified Code(s): I48.20 - Chronic atrial fibrillation, unspecified Category: Medical Code(s): I48.91 - Unspecified atrial fibrillation (8) Diabetes mellitus, type 2: Status: Acute Qualifiers: Diabetes mellitus complication detail: with other circulatory complications Diabetes mellitus complication status: with circulatory complication Diabetes mellitus hammer heater insulin use: with skilled nursing use Qualified Code(s): E11.59 - Type 2 diabetes mellitus with other circulatory complications; 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 AMS, lethargy in setting of rhinovirus infection -Improved 2. Acute on chronic HFpEF -Improved with IV Lasix and resumption of home diuretic therapy 3. SUMMERS with ascites -Recent paracentesis in the last 3 months per daughter 4. Diabetes mellitus type 2 5. Atrial fibrillation, chronic -On Xarelto therapy -On metoprolol 6. CAD with prior coronary stenting -Clinically stable on Plavix and statin therapy 7. CKD, stage III No plans for further testing. Clinically stable from a cardiac standpoint for discharge when ready. Resume home medications. Spironolactone 50 mg daily Xarelto 15 mg daily Plavix 75 mg daily Metoprolol tartrate 25 mg twice daily Lipitor 40 mg daily Lasix 40 mg twice daily Metolazone 5 mg daily Follow-up in our office as previously scheduled or sooner if needed. Documented by User: Maximo Harris MD 03/26/25 12:40 [facility] Medical History (Updated 03/26/25 @ 12:23 by RENNY Green) Bilateral leg edema Acute on chronic heart failure with preserved ejection fraction (HFpEF) COPD (chronic obstructive pulmonary disease) Major depressive disorder with single episode Heart failure Myocardial infarct, old Pacemaker Hypothyroid Fall Chronic Kidney Disease Splenomegaly Cirrhosis of liver Ascites Seasonal allergies Hyperlipemia Hypertension Aneurysm of splenic artery Acute hyperkalemia Arthritis History of gastroesophageal reflux (GERD) Diabetes mellitus, type 2 History of cataract History of left heart catheterization (LHC) Gastritis PAF (paroxysmal atrial fibrillation) DKA (diabetic ketoacidosis) Lactose intolerance 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 Anemia Cardiac pacemaker in situ SSS (sick sinus syndrome) Coronary artery disease Surgical History Hx of cardiac cath Closed intertrochanteric fracture of left hip (~10/2024) History of esophagogastroduodenoscopy (EGD) Hx of tonsillectomy History of colonoscopy History of hysterectomy History of appendectomy History of cholecystectomy Family History Other Family history of cancer Social History (Updated 03/25/25 @ 16:12 by Phuong Franz, BRANDYN) Smoking Status: Never smoker second hand exposure: No alcohol intake: never substance use type: denies use current occupational status: disabled Travel in the last 8 weeks?: None household members: family housing: house caffeine: No Meds Home Medications and Allergies Home Medications ?Medication ?Instructions ?Recorded ?Confirmed ?Type levothyroxine 50 mcg tablet 50 mcg PO DAILY 10/13/24 03/25/25 History mirabegron 25 mg tablet,extended 25 mg PO DAILY 10/13/24 03/25/25 History release 24 hr (Myrbetriq) omeprazole 40 mg capsule,delayed 40 mg PO DAILY 10/13/24 03/25/25 History release rivaroxaban 15 mg tablet (Xarelto) 15 mg PO HS 10/13/24 03/25/25 History sertraline 100 mg tablet 100 mg PO DAILY 10/13/24 03/25/25 History lactulose 20 gram/30 mL oral 10 g (15 mL) PO BID 30 days #900 mL 10/18/24 03/25/25 Rx solution polyethylene glycol 3350 17 17 g PO DAILY #510 grams 10/18/24 03/25/25 Rx gram/dose oral powder (Miralax) sodium bicarbonate 325 mg tablet 325 mg PO BID 30 days #60 tabs 10/18/24 03/25/25 Rx insulin glargine 100 unit/mL (3 15 unit (0.15 mL) SQ BID 60 days 11/14/24 03/26/25 Rx mL) subcutaneous pen (Lantus #18 mL Solostar U-100 Insulin) budesonide 160 mcg-glycopyr 9 2 inh inhalation BID #10.7 grams 01/16/25 03/25/25 Rx mcg-formot 4.8 mcg/actuation HFA inhaler (Breztri Aerosphere) clopidogrel 75 mg tablet 75 mg PO DAILY 01/17/25 03/25/25 History insulin lispro 100 unit/mL 0 sliding scale dose SQ TID 01/17/25 03/26/25 History subcutaneous pen (Humalog KwikPen (U-100) Insulin) lidocaine 4 % topical patch 1 patch topical DAILY 01/17/25 03/25/25 History (Lidocaine Pain Relief) mecobalamin (vitamin B12) 5,000 5,000 mcg PO DAILY 01/17/25 03/25/25 History mcg chewable tablet metolazone 5 mg tablet 5 mg PO DAILY 01/17/25 03/25/25 History potassium chloride 10 mEq 20 meq PO DAILY 01/17/25 03/25/25 History capsule,extended release spironolactone 25 mg tablet 50 mg (2 x 25 mg) PO DAILY 30 days 01/19/25 03/25/25 Rx #60 tabs artificial 1 drp Eye-Left TID 02/27/25 03/25/25 History tears(ehwwreu-rjzolzfi-rvwcmdb) 0.1 %-0.3 %-0.2 % eye drops atorvastatin 40 mg tablet 40 mg PO HS 02/27/25 03/25/25 History ferrous gluconate 324 mg (38 mg 324 mg PO BID 02/27/25 03/25/25 History iron) tablet fluticasone propionate 50 1 spray intranasal DAILY 02/27/25 03/25/25 History mcg/actuation nasal spray,suspension furosemide 40 mg tablet (Lasix) 40 mg PO BID 02/27/25 03/25/25 History guaifenesin 100 mg/5 mL oral 200 mg PO Q6 PRN Cough 02/27/25 03/25/25 History liquid (Daksha-Tussin) hydrocodone 7.5 mg-acetaminophen 1 tab PO QID PRN pain 02/27/25 03/25/25 History 325 mg tablet metoprolol tartrate 25 mg tablet 25 mg PO BID 02/27/25 03/25/25 History prochlorperazine maleate 5 mg 2.5 mg (1/2 x 5 mg) PO TID PRN 02/27/25 03/25/25 Rx tablet (Compazine) nausea and vomiting #30 tabs New Prescriptions to Start Prescriptions: Allergies Allergy/AdvReac Type Severity Reaction Status Date / Time methylprednisolone AdvReac Mild Elevated Verified 02/27/25 13:59 glucose Assessment and Plan *Assessment and plan (1) Rhinovirus infection: Status: Acute Category: Medical Code(s): B34.8 - Other viral infections of unspecified site (2) Altered awareness, transient: Status: Acute Category: Medical Code(s): R40.4 - Transient alteration of awareness (3) Lethargy: Status: Acute Category: Medical Code(s): R53.83 - Other fatigue (4) Acute on chronic heart failure with preserved ejection fraction (HFpEF): Status: Acute Category: Medical Code(s): I50.33 - Acute on chronic diastolic (congestive) heart failure (5) Cirrhosis: Status: Acute Qualifiers: Ascites presence: with ascites Hepatic cirrhosis type: unspecified hepatic cirrhosis Qualified Code(s): K74.60 - Unspecified cirrhosis of liver; R18.8 - Other ascites Category: Medical Code(s): K74.60 - Unspecified cirrhosis of liver (6) Ascites: Status: Acute Qualifiers: Ascites type: other type Qualified Code(s): R18.8 - Other ascites Category: Medical Code(s): R18.8 - Other ascites (7) Atrial fibrillation: Status: Acute Qualifiers: Atrial fibrillation type: unspecified chronic Qualified Code(s): I48.20 - Chronic atrial fibrillation, unspecified Category: Medical Code(s): I48.91 - Unspecified atrial fibrillation (8) Diabetes mellitus, type 2: Status: Acute Qualifiers: Diabetes mellitus complication detail: with other circulatory complications Diabetes mellitus complication status: with circulatory complication Diabetes mellitus hammer heater insulin use: with skilled nursing use Qualified Code(s): E11.59 - Type 2 diabetes mellitus with other circulatory complications; Z79.4 - 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 AMS, lethargy in setting of rhinovirus infection -Improved 2. Acute on chronic HFpEF -Improved with IV Lasix and resumption of home diuretic therapy 3. SUMMERS with ascites -Recent paracentesis in the last 3 months per daughter 4. Diabetes mellitus type 2 5. Atrial fibrillation, chronic -On Xarelto therapy -On metoprolol 6. CAD with prior coronary stenting -Clinically stable on Plavix and statin therapy 7. CKD, stage III No plans for further testing. Clinically stable from a cardiac standpoint for discharge when ready. On outpatient basis, she may be eligible for TriClip procedure. Resume home medications. Spironolactone 50 mg daily Xarelto 15 mg daily Plavix 75 mg daily Metoprolol tartrate 25 mg twice daily Lipitor 40 mg daily Lasix 40 mg twice daily Metolazone 5 mg daily Follow-up in our office as previously scheduled or sooner if needed.
[2025-03-26 14:59] LABS: POC Glucose,Bedside 321 (70-110)
--- NOTE | 2025-03-26 15:02 | PC.NURSE ---
patient is alert and oriented x4. patient appears fatigued this shift and has been resting for most of the shift. notified MD of hypotension (100s/60s) and HR >90. MD aware. treated patient temperature of 100.4 ax with PO tylenol, rechecked temp at 1130 and is was 99.5 orally. blankets removed and a sheet was placed on patient, cool wash cloth applied to patients forehead. FSBS elevated and treated per SSI. no c/o pain. family at bedside.
[2025-03-26 15:16] LABS: VBG Base Excess 3.4 mmol/L (-2.4-2.3); VBG HCO3 26.8 mmol/L (23-30); VBG Oxygen Saturation 98.6 % (50-70); VBG PCO2 36.6 mmol/L (35-51); VBG PH 7.48 mmol/L (7.31-7.41); VBG PO2 145.3 mmol/L (28-40)
[2025-03-26 15:19] LABS: Lactate Venous 2.9 mmol/L (0.4-2.0)
[2025-03-26 16:15] LABS: POC Glucose,Bedside 285 (70-110)
--- NOTE | 2025-03-26 17:17 | P.PN_ITS ---
Subjective *Date: 03/26/25 *Time: 17:17 Interval history: Patient's cough is better today, but quite drowsy today. In the setting of rhinovirus. Follow-up morning ammonia. Exam Data for Last 24 hours Vital signs and Labs for Last 24 Hours: Temp Pulse Resp BP Pulse Ox O2 Del Method O2 Flow Rate 99.5 F 100 H 16 102/62 L 97 Nasal Cannula 2.5 03/26/25 12:00 03/26/25 16:00 03/26/25 12:00 03/26/25 14:30 03/26/25 12:00 03/26/25 15:00 03/26/25 12:00 FiO2 28 03/25/25 23:03 Laboratory Results - last 24 hr 03/25/25 17:45: Troponin I 0.02 03/25/25 18:40: Lactate 2.8 H 03/25/25 20:11: POC Glucose 187 H 03/26/25 05:10: WBC 9.1, RBC 3.35 L, Hgb 9.4 L, Hct 29.4 L, MCV 87.8, MCH 28.1, MCHC 32.0, RDW 16.9, Plt Count 106 L, MPV 10.2, Neut % (Auto) 87.3 H, Lymph % (Auto) 4.8 L, [place] % (Auto) 6.8, Eos % (Auto) 0.0 L, Baso % (Auto) 0.2, Neut # (Auto) 8.0 H, Lymph # (Auto) 0.4 L, [place] # (Auto) 0.6, Eos # (Auto) 0.0, Baso # (Auto) 0.0, Total Counted 100, Neutrophils % (Manual) 89 H, Lymphocytes % (Manual) 7 L, Monocytes % (Manual) 4, Platelet Estimate Slight decrease, RBC Morphology Normal, Sodium 131 L, Potassium 3.8, Chloride 90 L, Carbon Dioxide 29, Anion Gap 15.8 H, BUN 74 H, Creatinine 1.60 H, Estimated Creat Clear 25, Estimated GFR 30 L, Est GFR ( Amer) 37 L, Glucose 208 H, Calcium 9.2, Magnesium 1.7, Total Bilirubin 2.0 H, AST 29 D, ALT 17 D, Alkaline Phosphatase 89, Total Protein 6.9, Albumin 3.6 D, Globulin 3.3 H, Albumin/Globulin Ratio 1.1 03/26/25 06:28: POC Glucose 219 H 03/26/25 09:41: POC Glucose 307 H* 03/26/25 11:00: POC Glucose 304 H* 03/26/25 13:35: POC Glucose 321 H* 03/26/25 14:55: VBG pH 7.48 H, VBG pCO2 36.6, VBG pO2 145.3 H, VBG HCO3 26.8, VBG Total CO2 28.0 H, VBG O2 Saturation 98.6 H, VBG Base Excess 3.4 H, VBG Lactic Acid 2.9 H 03/26/25 16:06: POC Glucose 285 H I & O for Last 24 hours: Intake & Output 03/23/25 03/24/25 03/25/25 03/26/25 23:59 23:59 23:59 23:59 Intake Total 120 / 564 1384 / 1384 Output Total 550 / 550 350 / 350 Balance -430 / 14 1034 / 1034 Weight 59.874 kg 64.637 kg Assessment and Plan *Assessment and plan (1) Rhinovirus infection: Status: Acute Category: Medical Code(s): B34.8 - Other viral infections of unspecified site Plan Kareen Mallory is an 89-year-old female who presented from [facility] for progressive weakness. On route EMS found her to be in A-fib RVR and was given IV diltiazem 20 mg with improvement in heart rate. #COPD exacerbation #Acute viral syndrome #Rhinovirus #Weakness ? Patient and family complain of worsening productive cough over the past week, positive for rhinovirus on respiratory panel. ? Continue levalbuterol, ipratropium every 6 hours. ? Will start prednisone 20 mg, doxycycline day 1/5. ? Cough improving today, the patient quite drowsy with fever up to 100.4. ? Follow-up sputum cultures. CXR without acute pneumonia or pulmonary edema. ? Daughter states she does not think that patient is able to inhale her Breztri properly at nursing facility, will plan to discharge with nebs. #HFpEF #A-fib ? Initially had slight volume overload, improved with IV diuresis yesterday. Reduced home Lasix to 40 mg daily as patient is not tolerating p.o. intake that well and holding home metolazone 5 mg. ? No signs of volume overload. A-fib intermittently in the 120s, likely in the setting of viral illness. ? Continue metoprolol titrate 25 mg twice daily, Xarelto 15 mg. #SUMMERS cirrhosis ? Continue Lasix, spironolactone, lactulose. Stable at this time. ? Follow-up morning ammonia. #CAD with stents ? Continue Plavix, statin. #CKD stage III ? Creatinine 1.6, GFR 30. Stable at this time. #Hypothyroidism ? Continue home levothyroxine. Follow-up TFTs. #Anxiety/depression ? Continue home sertraline. Full code DVT prophylaxis: On Xarelto
[2025-03-26] MEDS: predniSONE 20MG TAB 20 MG PO (17:49)
[2025-03-26 19:17] LABS: Reflex Lactic Add Lactic Reflex
[2025-03-26 19:55] LABS: POC Glucose,Bedside 284 (70-110)
[2025-03-26 20:10] LABS: Lactic Acid Follow Up (RFLX 1) 2.5 mmol/L (0.7-2.1)
[2025-03-26] MEDS: ATORVASTATIN 40MG TABLET 40 MG PO (20:25)
[2025-03-26] MEDS: PANTOPRAZOLE 40MG TABLET 40 MG PO (20:26)
[2025-03-26] MEDS: RIVAROXABAN 15MG TABLET 15 MG PO (20:26)
[2025-03-26 21:53] LABS: Reflex Lactic (2 hrs) Add Lactic Reflex
[2025-03-26 22:22] LABS: Lactic Acid Follow up (RFLX 2) 1.9 mmol/L (0.7-2.1)
[2025-03-27] VITALS (16 sets, daily range): BP systolic 92–121; BP diastolic 61–78; PULSE 77–134; RESP 18–24; TEMP 36.4–37.3; O2SAT 95–100; BMI 24.8
[2025-03-27] MEDS: IPRATROPIUM BROMIDE 0.5 MG/2.5ML SOLUTION IH ×5 (00:32→23:30)
[2025-03-27] MEDS: LEVALBUTEROL 1.25MG/3ML NEB 1.25 MG IH ×5 (00:32→23:30)
--- NOTE | 2025-03-27 03:51 | PC.NURSE ---
Pt AOx4, pleasant. Continually denies pain or any additional needs. Daughter at bedside. Pt currently resting in bed with eyes closed. On 2L NC. Respirations even and unlabored. Bed is low, locked, and call light is in reach.
[2025-03-27 06:05] LABS: POC Glucose,Bedside 273 (70-110)
[2025-03-27] MEDS: LEVOTHYROXINE 50MCG (0.05MG) TAB 50 MCG PO (06:09)
[2025-03-27] MEDS: humaLOG 100 UNITS/ML 10ML VIAL (SSI) SUBCUT ×4 (06:09→20:06)
[2025-03-27 06:30] LABS: Basophils % 0.3 % (0.1-2.0); Hematocrit 27.6 % (37.0-47.0); Hemoglobin 9.2 g/dL (12.2-16.2); Immature Granulocytes # 0.05 10^3uL; Immature Granulocytes % 0.7 %; Lymphocytes # 0.4 K/mm3 (0.7-4.5); Lymphocytes % 4.7 % (10-50); MANUAL DIFFERENTIAL MANUAL DIFFERENTIAL (MANUAL DIFF); Mean Corpuscular HGB Conc 33.3 g/dL (31.8-35.4); Mean Corpuscular Hemoglobin 28.6 pg (27.0-31.2); Mean Corpuscular Volume 85.7 fl (81-99); Mean Platelet Volume 10.6 fl (7.4-10.4); Monocytes # 0.5 K/mm3 (0.1-1.0); Monocytes % 6.6 % (1.7-9.3); Neutrophils # 6.5 K/mm3 (1.8-7.8); Neutrophils % 87.7 % (37.0-80.0); Nucleated Red Blood Cells # 0 10^3/uL; Nucleated Red Blood Cells % 0 %; Platelet Count 109 K/mm3 (142-424); Red Blood Count 3.22 M/mm3 (4.20-5.40); Red Cell Distribution Width 16.4 % (11.5-17.5); Red Cell Distribution Width-SD 51.9 fL; White Blood Count 7.4 K/mm3 (4.8-10.8)
--- NOTE | 2025-03-27 06:35 | PC.NURSE ---
0600 Pt had 50mL of output throughout shift. Notified provider and bladder scanned pt upon provider order. Pt holding 362mL of urine. Called provider and provider stated the pt needed to be straight cathed. With assistance from another RN and a FILTER CHANGER, attempted to straight cath pt via sterile technique. Upon attempt of insertion, pt strained and closed her legs, preventing the catheter from inserting. Pt requested RN to stop and the insertion attempt was stopped. Pt states that she will drink fluids and attempt to urinate via purewick. Hospitalist notified. Pt left in low, locked bed with call light in reach. 0644 Provider's daughter at bedside stepped out to notify RN that pt had urinated. Suction container holding around 200mL upon reassessment.
[2025-03-27 06:53] LABS: Albumin Level 3.5 g/dl (3.5-5.0); Ammonia 12 umol/L (9-30); Chloride 88 mmol/L (98-107); Sodium 129 mmol/L (136-145)
[2025-03-27 06:55] LABS: Creatinine Clearance Estimated 23 mL/min (50-200); Estimated Glomerular Filt Rate 28 ml/min (>60); GFR (African American) 34 ML/MIN (>60)
[2025-03-27 06:56] LABS: Alanine Aminotransferase 14 U/L (12-78); Albumin/Globulin Ratio 1.1 (1.1-1.8); Alkaline Phosphatase 98 U/L (38-126); Aspartate Amino Transferase 37 U/L (14-36); Bilirubin,Total 1.3 mg/dl (0.2-1.3); Calcium 9.2 mg/dl (8.4-10.2); Carbon Dioxide 27 mmol/L (22.0-30.0); Globulin 3.3 g/dL (1.3-3.2); Glucose 265 mg/dl (74-100); Magnesium 1.9 mg/dl (1.6-2.3); Total Protein,Serum 6.8 g/dl (6.3-8.2)
[2025-03-27 07:11] LABS: Lymphocytes % 8 % (10-50); Monocytes % 5 % (2-9); Neutrophils % 79 % (42-76); Total Cells Counted 100
[2025-03-27 07:13] LABS: Platelet Estimate Slight Decrease; RBC Morphology Normal
[2025-03-27 07:21] LABS: Blood Urea Nitrogen 90 mg/dl (7-17)
[2025-03-27 07:23] LABS: Thyroid Stimulating Hormone 1.24 uIU/mL (0.465-4.68)
[2025-03-27] MEDS: SERTRALINE 100MG TABLET 100 MG PO (08:50)
[2025-03-27] MEDS: METOPROLOL TARTRATE 25MG TABLET 25 MG PO ×2 (08:50→20:19)
[2025-03-27] MEDS: DOXYCYCLINE HYCL 100 MG TABLET PO ×2 (08:50→20:06)
[2025-03-27] MEDS: LACTULOSE 20GM/30ML UDC 10 GM PO ×2 (08:50→20:06)
[2025-03-27] MEDS: ENOXAPARIN 30MG/0.3ML SYRINGE 30 MG SUBCUT (08:50)
[2025-03-27] MEDS: CLOPIDOGREL 75MG TAB 75 MG PO (08:50)
[2025-03-27] MEDS: INSULIN GLARGINE 100 UNITS/ML 3ML FLEXPEN 15 UNIT SUBCUT ×2 (08:51→20:07)
[2025-03-27] MEDS: predniSONE 20MG TAB 20 MG PO (08:56)
[2025-03-27 08:57] LABS: POC Glucose,Bedside 338 (70-110)
[2025-03-27] MEDS: ONDANSETRON 4MG/2ML VIAL 4 MG IV (09:05)
[2025-03-27] MEDS: POLYETHYLENE GLYCOL 3350 17 GM PACKET PO (09:07)
--- NOTE | 2025-03-27 10:13 | CT_ITS ---
FINAL REPORT TECHNIQUE: Axial images through the abdomen and pelvis were performed without contrast.This study was performed with techniques to keep radiation doses as low as reasonably achievable, (ALARA). Individualized dose reduction techniques using automated exposure control or adjustment of mA and/or kV according to the patient's size were employed. CLINICAL HISTORY: Left sided abominal pain COMPARISON: 05/30/2024 FINDINGS: ABDOMEN: The lung bases demonstrate new left lower lobe consolidation consistent with pneumonia. There is a small left pleural effusion. The heart size is normal. Limited images of the liver are unremarkable. The spleen is normal. No adrenal mass is identified. The aorta is normal in caliber. There is no significant free fluid or adenopathy. There is no nephrolithiasis. There is no hydronephrosis. A stable left renal mass is present. 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 There has been interval resolution of previously seen ascites. Bowel is unremarkable. PELVIS: The appendix is not visualized. Patient is status post hysterectomy. There is mild fecal impaction of the distal colon. The urinary bladder is unremarkable. There is no significant free fluid or adenopathy. IMPRESSION: There is severe left lower lobe pneumonia. Resolved ascites. No evidence of bowel obstruction. Reviewed, Interpreted and Dictated by Alessandro Burrell MD Transcribed by Niesha Horn Authenticated and [facility]
--- NOTE | 2025-03-27 10:14 | XR_ITS ---
FINAL REPORT TECHNIQUE: Single view chest CLINICAL HISTORY: Persistent productive cough, fever COMPARISON: 03/25/2025 FINDINGS: A single view of the chest was obtained. A left pacemaker is in place. The heart and mediastinum are within normal limits. There is a retrocardiac density in the left lower lobe suspicious for pneumonia with a small left pleural effusion. The lungs are clear. There is no pneumothorax. IMPRESSION: Probable left lower lobe pneumonia with small left pleural effusion. Reviewed, Interpreted and Dictated by Alessandro Burrell MD Transcribed by Niesha Horn Authenticated and [facility]
--- NOTE | 2025-03-27 11:19 | PC.NURSE ---
went to radiology
[2025-03-27 11:35] LABS: POC Glucose,Bedside 323 (70-110)
--- NOTE | 2025-03-27 11:37 | PC.NURSE ---
back from radiology
[2025-03-27] MEDS: 0.9 % SODIUM CHLORIDE 1000ML 500 ML 250 ML IV (13:14)
[2025-03-27] MEDS: METOCLOPRAMIDE HCL 10MG/2ML VIAL 10 MG IVP ×2 (14:21→19:58)
--- OUTSIDE RECORDS SUMMARY | 2025-03-27 15:10 | XMS_ITS ---
Author Name Auto Generated, Auto Generated Organization [facility] Address [address] [place] [address] Phone [phone] Care Team Providers Care Educational Recruiter Name Role Phone Hu Miller Unavailable [phone] Functional Status No Results Mental Status No [...]
--- OUTSIDE RECORDS SUMMARY | 2025-03-27 15:12 | XMS_ITS | Data Portability ---
Author Organization [facility] CRIS Elizabeth [place] [facility] Address [address] [facility] [place] [address] Care Team Providers Care Design Intern Name Role Phone [facility] Referring Provider Assessment No assessment recorded. Plan of Treatment Reminders Order Date Submit Date Provider Last Modified By Organization Details Last Modified Time Details Appointments None recorded. Lab urinalysis panel, auto 2023 024 [email or web address] [facility] [address], [facility], [place], [address], 09:37:00 Referral None recorded. Procedures None recorded. Surgeries None recorded. Imaging None recorded. Medication Orders None recorded. Patient TargetsNo targets recorded. Patient Instructions Encounter Date Encounter Id Patient Instructions Last Modified By Organization Details Last Modified Time 03/02/2024 [id number] From the best I can tell Mrs. [...] will see her back as needed only. [email or web address] Not available 03/02/2024 14:09:17 Reason for Referral None Reported. Results Created Date Observation Date Name Description Value Unit Range Abnormal Flag Note LastModifiedBy Organization Detail LastModifiedTime 03/02/20 24 03/02/2024 urina lysis panel , auto Unknown Analyte Clean Catch Not Available [facility] [facility], [place], [address], 03/02/2024 13:52:45 03/02/20 24 03/02/2024 urina lysis panel , auto Unknown Analyte Yellow Not Available [facility] Urology [facility] [address] [place], [address], 03/02/2024 13:52:45 03/02/20 24 03/02/2024 urina lysis panel , auto Unknown Analyte Clear Not Available Cu[facility]Lc Urology [facility] [address] [place], [address], 03/02/2024 13:52:45 03/02/20 24 03/02/2024 urina lysis panel , auto Unknown Analyte 1.010 Not Available [facility] [address] [place], [address], 03/02/2024 13:52:45 03/02/20 24 03/02/2024 urina lysis panel , auto Unknown Analyte 6.0 Not Available [facility] [address] [facility], [place], [address], 03/02/2024 13:52:45 03/02/20 24 03/02/2024 urina lysis panel , auto Unknown Analyte Negati ve Not Available [facility] [place], [address], 03/02/2024 13:52:45 03/02/20 24 03/02/2024 urina lysis panel , auto Unknown Analyte Negati ve Not Available [facility] [place], [address], 03/02/2024 13:52:45 03/02/20 24 03/02/2024 urina lysis panel , auto Unknown Analyte Negati ve Not Available [facility] [place], [address], 03/02/2024 13:52:45 03/02/20 24 03/02/2024 urina lysis panel , auto Unknown Analyte 250 mg/dl Not Available [facility]rol[facility] [address] [place], [address], 03/02/2024 13:52:45 03/02/20 24 03/02/2024 urina lysis panel , auto Unknown Analyte Negati ve Not Available [facility] [place], [address], 03/02/2024 13:52:45 03/02/20 24 03/02/2024 urina lysis panel , auto Unknown Analyte Normal Not Available [facility] Urology [facility] [address] [place], [address], 03/02/2024 13:52:45 03/02/20 24 03/02/2024 urina lysis panel , auto Unknown Analyte Negati ve Not Available [facility] [place], [address], 03/02/2024 13:52:45 03/02/20 24 03/02/2024 urina lysis panel , auto Unknown Analyte Negati ve Not Available Cu/Lc Urolo gy [facility] [address] [place], [address], 03/02/2024 13:52:45 Result Notes None recorded. Medical Equipment None Reported. Allergies Allergen ID Allergen Name Allergen Category Reaction Reaction Severity Criticality Documentation Date Start Date Code Code System Note Provider Name and Address Organization Details Recorded Time 816644 meloxicam medicatio n Not available Not available Not available 03/02/2024 10646 RxNorm Mariana MARCELINA Cotter [facility] 13:34:08 121098 aspirin medicatio n Not available Not available Not available 03/02/2024 1191 RxNorm Mariana Lee [facility] 4 13:34:12 956827 ibuprofen medicatio n Not available Not available Not available 03/02/2024 5640 RxNorm Mariana Lee [facility] 4 13:34:17 Medications Name Sig [...] Available No t Available FreeStyle Kai 2 [place] USE DIRECTED FOR continuous glucose monitoring active [...] Updated DateTime 03/02/2024 160.02 cm 25.3 kg/m2 72055.71 g Mariana Lee [facility] 03/02/2024 [...] SNOMED-CT Code Diagnosis ICD10 Code Diagnosis Note [id number] RAND WHITLOCK MD UROLOGY [facility] [address] [facility] [place] [address] 03/02/2024 13:12:03 03/02/2024 14:09:22 Dysuria 95335179 R30.0 Health Concerns Section Related Observation LastModified by Organization Detai ls LastModified Time None Recorded Concern Status LastModified by Organization Details LastModified Time None Recorded Advance Directives Directive None Recorded Payers Insurance Date Sequence Insurance Name Policy Number Policy Foster Covered Member ID Foster Member ID Guarantor Name 03/07/2024 1 [place]MEDICARE REPLACEMENT HMO) [id number] Kareen Mallory [id number] Kareen Mallory 03/08/2024 2 [facility] CHOICES - FFS/TRADITIONA L Kareen Mallory [id number] Kareen Mallory Notes Date Note Type Note Provider Name and Address Organization Details Recorded Time 03/02/2024 text/html 88 yo new female is here for her h/o of kidney disease, referred by Dr. gutiérrez. RAND WHITLOCK MD [address] [place] [address], [address], [facility] 03/06/2024 09:37:28 OBGyn Episode No OBEpisode recorded.
--- OUTSIDE RECORDS SUMMARY | 2025-03-27 15:12 | XMS_ITS | Data Portability ---
Author Organization [facility] SALINA Marcial ADMIN Address [address] [place] [address] Assessment No assessment recorded. Plan of Treatment Reminders Order Date Submit Date Provider Last Modified By Organization Details Last Modified Time Details Appointments None recorded. Lab cytology, peritoneal fluid [address] (Scheduling), [address] [facility] [address], [place], [address], 4 15:48:33 cell count w/ diff, body fluid [address] (Scheduling), [address] [place] [address] [address], [place], [address], 4 15:48:33 Referral None recorded. Procedures abdominal paracentesi s; with imaging guidance (PROC) - Standing order for paracentesi s. See fluid orders. Standing order for cell ct w/diff with every subsequent paracentesi s. Cytology just with the first. 2023 024 [email or web address] [facility] Scheduling, [address] [facility] [address], [place], [address], 4 14:39:19 Surgeries None recorded. Imaging None recorded. Medication Orders Xifaxan [address] [facility], [address] [facility] [address], [place], [id number], 4 14:28:23 Patient TargetsNo targets recorded. Patient Instructions Encounter Date Encounter Id Patient Instructions Last Modified By Organization Details Last Modified Time 06/19/2024 [id number] Follow up as planned with Dr. Beverly. Return to clinic as needed. Not available 06/19/2024 16:53:35 Reason for Referral None Reported. Results Created Date Observation Date Name Description Value Unit Range Abnormal Flag Note LastModifiedBy Organization Detail LastModifiedTime 06/23/20 24 06/23/2024 US, abdom en No observ ation record ed. [email or web address], [place], [address], 06/23/2024 14:23:48 08/27/20 24 08/27/2024 CT, head + brain , w/o contr ast No observ ation record ed. [place] [id number] [facility] [address], [place], [address], 09/06/2024 16:53:12 08/27/20 24 08/27/2024 CT, cervi rj spine , w/o contr ast No observ ation record ed. [facility] [address], [place], [address], 09/06/2024 16:53:33 08/27/20 24 08/27/2024 XR, chest , 2 view No observ ation record ed. [facility] [address], [place], [address], 09/06/2024 16:54:44 08/27/20 24 08/27/2024 CT, abdom en + pelvi s, w/o contr ast No observ ation record ed. [facility] [address], [place], [address], 09/06/2024 16:54:29 Result Notes None recorded. Medical [...] Ultra-Fine Mini Pen Needle 31 gauge x 3/16 USE as directed TWICE DAILY with insulin [...] Available No t Available FreeStyle Kai 2 [place] USE DIRECTED FOR continuous glucose monitoring (OR [...] Address Organization Details Last Updated DateTime 4 [address].7 4 g 25.6 kg/m2 160.02 cm 97.2 [degF] 96 % 96 % 110 /min 110 /min 133 mm[Hg] 75 mm[Hg] Tamia Gonzales [place] - [facility] - [place] & [place] 4 14:25:40 Social History None recorded. Functional Status None recorded. Mental Status None recorded. Family History Nothing Reported. Medical History No medical history recorded. Gynecological HistoryNo gynecological history recorded. Obstetrics History GPAL:G 0 P 0 0 0 0 Past Encounters Encounter ID Performer Location Encounter Start Date Encounter Closed Date Diagnosis/Indication Diagnosis SNOMED-CT Code Diagnosis ICD10 Code Diagnosis Note [id number] MELLISA YEE NP [facility] [address] [facility] [address] [place] [address] 06/19/2024 14:13:53 06/19/2024 15:23:14 Cirrhosis of liver 62251244 K74.60 # Cirrhosis, decompensa lm by ascites-ci [...] g per day-Avoid alcohol, avoid NSAIDs Ascites 963462741 R18.8 Orders for standing paracentes is placed.Con tinue current diuretics as ordered. I have reservatio ns changing diuretics with kidney function. Hepatic encephalopathy 60333044 K76.82 Start xifaxan as ordered. If not [...] PLUS (MEDICARE REPLACEMENT HMO) [id number] Kareen Mallory [id number] Kareen Mallory Notes Date Note Type [...] earlier this year by a physician at [facility]. The majority of Kareen's health care providers are within [facility]. She says Kareen used alcohol heavily when she was younger, does not drink alcohol now. She was seen in the ED at [facility] on 05/24/[address] [...] is clear/yellow. 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 Her BNP was 4150. Cardiology at [facility] is following. She had a pacemaker placed in 2016, stents placed in October 2022. She is on Xarelto. PT/INR elevated. She denies symptoms of GI bleed, no jaundice or pruritus. Her daughter has noticed cognitive impairment recently, stating Kareen has been more forgetful. She has an appointment with Dr. Beverly at [facility] on 07/25/24. Her PCP recommended she be seen at our clinic today. She has been seen by Dr. Beverly in the past. MELLISA YEE, WALLY [address], [place], [address], [facility] - [place] 06/19/2024 16:53:55 OBGyn Episode No OBEpisode recorded.
--- OUTSIDE RECORDS SUMMARY | 2025-03-27 15:12 | XMS_ITS | Clinical Summary ---
Author Organization Healthcare Address [address] [id number] Care Team Providers Care Body Piercer Name Role Phone Alexy Rivera MD Primary Care Provider [phone] Allergies No known active allergies Medications atorvastatin [...] Continuous Glucose Sensor (FreeStyle Kai 2 Sensor) [facility] [place] DIRECTED 01/24/20 24 Active fluticasone (Flonase) [...] Wellness (AWV) 1935 [facility]-Infant/Child/Adol SDOH Screenings 1935 [id number] Vaccine (#1) 1942 [facility]- SDOH Screenings 1955 [...] topic Insurance [place] Care Teams Body Piercer Relationship Specialty Start Date End Date Alexy Rivera MD [address] [place] [address] PCP - General 02/14/21
[2025-03-27] MEDS: CEFEPIME HCL 2 GM in 0.9 % SODIUM CHLORIDE 100 ML IV (16:01)
--- OUTSIDE RECORDS SUMMARY | 2025-03-27 16:11 | XMS_ITS | CCD ---
Author Organization Unknown Care Team Providers Care Hemstitching Machine Operator Name Role Phone Unavailable Primary Care Provider Unavailabl e Unavailable Chronic Care Management Unavaila ble Summary Purpose DataExchange Insurance Providers Payer name Policy type / Coverage type Covered libertarian ID Effective Begin Date Effective End Date [facility] [id number] Unknown Unknown Family History Family History data not found Medication Administered No Medication Administered data Reason For Visit No Reason For Visit data Medical Equipment No Medical Equipment data Advance Directives No Advance Directive data
--- OUTSIDE RECORDS SUMMARY | 2025-03-27 16:12 | XMS_ITS | CCD ---
Author Organization Unknown Care Team Providers Care Skiver Counter Name Role Phone Unavailable Primary Care Provider Unavailabl e Unavailable Chronic Care Management Unavaila ble Summary Purpose DataExchange Insurance Providers Payer name Policy type / Coverage type Covered alliance party ID Effective Begin Date Effective End Date [facility] [id number] Unknown Unknown Family History Family History data not found Medication Administered No Medication Administered data Reason For Visit No Reason For Visit data Medical Equipment No Medical Equipment data Advance Directives No Advance Directive data
[2025-03-27] MEDS: GUAIFENESIN/DEXTROMETHORPHAN 200MG/20MG 10ML UDC 10 ML PO ×2 (17:08→23:49)
--- NOTE | 2025-03-27 17:50 | PC.NURSE ---
patient is a/ox4 and has been more awake this shift. remains on 2LNC. patient sat in chair this AM while eating breakfast. patient did c/o a non productive cough, MD notified, treated per DEC. patient also c/o nausea, treated per DEC. patient was a x2/max assist from chair to bed. bed low and locked, family at bedside call light within reach. PW remains in place.
[2025-03-27 18:42] LABS: Anion Gap 14.7 mEq/L (5-15); Calcium 9.6 mg/dl (8.4-10.2); Carbon Dioxide 27 mmol/L (22.0-30.0); Chloride 87 mmol/L (98-107); Creatinine Clearance Estimated 22 mL/min (50-200); Estimated Glomerular Filt Rate 27 ml/min (>60); GFR (African American) 32 ML/MIN (>60); Glucose 271 mg/dl (74-100); Potassium 4.7 mmoL/L (3.5-5.1); Sodium 124 mmol/L (136-145)
[2025-03-27 18:44] LABS: Blood Urea Nitrogen 91 mg/dl (7-17)
[2025-03-27] MEDS: 0.9 % SODIUM CHLORIDE 1000ML 500 ML IV (19:57)
[2025-03-27] MEDS: ATORVASTATIN 40MG TABLET 40 MG PO (20:06)
[2025-03-27] MEDS: RIVAROXABAN 15MG TABLET 15 MG PO (20:06)
[2025-03-27] MEDS: ACETAMINOPHEN 325MG TAB 650 MG PO (20:12)
[2025-03-27] MEDS: PANTOPRAZOLE 40MG TABLET 40 MG PO (20:30)
[2025-03-27] MEDS: SODIUM CHLORIDE 3% 15ML NEB 3 ML IH (23:30)
--- NOTE | 2025-03-27 23:44 | P.PN_ITS ---
Subjective *Date: 03/28/25 *Time: 00:11 Interval history: Patient is globally weak but having slight improvement. Eating better today, more alert today. Exam Data for Last 24 hours Vital signs and Labs for Last 24 Hours: Temp Pulse Resp BP Pulse Ox O2 Del Method O2 Flow Rate 98.7 F 120 H 24 121/78 100 Nasal Cannula 2 03/27/25 19:46 03/27/25 23:32 03/27/25 23:32 03/27/25 20:21 03/27/25 19:46 03/27/25 23:00 03/27/25 23:00 FiO2 28 03/25/25 23:03 Laboratory Results - last 24 hr 03/27/25 05:58: POC Glucose 273 H 03/27/25 06:14: WBC 7.4, RBC 3.22 L, Hgb 9.2 L, Hct 27.6 L, MCV 85.7, MCH 28.6, MCHC 33.3, RDW 16.4, Plt Count 109 L, MPV 10.6 H, Neut % (Auto) 87.7 H, Lymph % (Auto) 4.7 L, [place] % (Auto) 6.6, Eos % (Auto) 0.0 L, Baso % (Auto) 0.3, Neut # (Auto) 6.5, Lymph # (Auto) 0.4 L, [place] # (Auto) 0.5, Eos # (Auto) 0.0, Baso # (Auto) 0.0, Total Counted 100, Neutrophils % (Manual) 79 H, Band Neutrophils % 8.0, Lymphocytes % (Manual) 8 L, Monocytes % (Manual) 5, Platelet Estimate Slight decrease, RBC Morphology Normal, Sodium 129 L, Potassium 4.0, Chloride 88 L, Carbon Dioxide 27, Anion Gap 18.0 H, BUN 90 H, Creatinine 1.70 H, Estimated Creat Clear 23, Estimated GFR 28 L, Est GFR ( Amer) 34 L, Glucose 265 H, Calcium 9.2, Magnesium 1.9 D, Total Bilirubin 1.3, AST 37 H D, ALT 14, Alkaline Phosphatase 98, Ammonia 12, Total Protein 6.8, Albumin 3.5, Globulin 3.3 H, Albumin/Globulin Ratio 1.1, TSH 1.24 03/27/25 08:50: POC Glucose 338 H* 03/27/25 11:09: POC Glucose 323 H* 03/27/25 18:12: Sodium 124 L, Potassium 4.7, Chloride 87 L, Carbon Dioxide 27, Anion Gap 14.7, BUN 91 H, Creatinine 1.80 H, Estimated Creat Clear 22, Estimated GFR 27 L, Est GFR ( Amer) 32 L, Glucose 271 H, Calcium 9.6 I & O for Last 24 hours: Intake & Output 03/24/25 03/25/25 03/26/25 03/27/25 23:59 23:59 23:59 23:59 Intake Total 120 / 564 1744 / 1744 1600 / 1600 Output Total 550 / 550 950 / 950 200 / 200 Balance -430 / 14 794 / 794 1400 / 1400 Weight 59.874 kg 64.637 kg 63.673 kg Constitutional Constitutional: no acute distress Comments: Globally weak. *Routine HEENT Exam Head: Present normocephalic Eye: Present EOMI and PERRL ENT: Present mucous membranes moist *Routine Neck Exam Neck: Present supple; Absent lymphadenopathy *Routine Respiratory Exam Respiratory: Present rhonchi; Absent CTA bilaterally *Routine Cardiovascular Exam Cardiovascular: Present RRR *Routine Abdominal Exam Abdominal: Present soft and normoactive bowel sounds; Absent tenderness *Routine Extremities Exam Extremities: Absent cyanosis, clubbing or edema *Routine Skin Exam Skin: Present warm; Absent rash *Routine Neurological Exam Neurological: Present alert Assessment and Plan *Assessment and plan (1) Rhinovirus infection: Status: Acute Category: Medical Code(s): B34.8 - Other viral infections of unspecified site Plan Kareen Mallory is an 89-year-old female who presented from [facility] for progressive weakness. On route EMS found her to be in A-fib RVR and was given IV diltiazem 20 mg with improvement in heart rate. #Sepsis #Left lower lobe community-acquired pneumonia #COPD exacerbation #Rhinovirus #Weakness ? Patient and family complained of worsening productive cough over the past week, positive for rhinovirus on respiratory panel. ? Patient complaining of left flank pain today, CT abdomen shows severe left- sided pneumonia. Tachycardia with tachypnea. ? Started cefepime, continue doxycycline. ? Continue levalbuterol, ipratropium every 6 hours. ? Continue prednisone 20 mg day 2/5. ? Follow-up sputum cultures. ? Pulmonology consulted, pending further recommendations. ? Daughter states she does not think that patient is able to inhale her Breztri properly at nursing facility, will plan to discharge with nebs. #THANH on CKD stage III #Uremia ? Initial creatinine 1.5, bumped to 1.8. BUN 91, was in 30s to 40s in January. ? Creatinine worsened after both diuretics and fluid challenge. ? Patient overall looks dry on exam. Does have a history of HFpEF with elevated BNP and 7000's's this admission. But no signs of volume overload. Aggressive home diuretic regimen with Lasix 40 mg twice daily, metolazone 5 mg, spironolactone 50 mg. ? Will try another fluid challenge with 500 mL bolus, follow-up repeat BMP. #HFpEF #A-fib ? Holding home Lasix 40 mg twice daily, spironolactone 50 mg, metolazone 5 mg as there is suspicion of depletion. ? Continue metoprolol titrate 25 mg twice daily, Xarelto 15 mg. #SUMMERS cirrhosis ? Hold Lasix, spironolactone, lactulose as above. Stable at this time. ? Ammonia normal. #CAD with stents ? Continue Plavix, statin. #CKD stage III ? Creatinine 1.6, GFR 30. Stable at this time. #Hypothyroidism ? Continue home levothyroxine. TFTs normal. #Anxiety/depression ? Continue home sertraline. Full code DVT prophylaxis: On Xarelto
[2025-03-28] VITALS (14 sets, daily range): BP systolic 96–111; BP diastolic 60–73; PULSE 76–130; RESP 18–22; TEMP 36.5–36.9; O2SAT 96–100; BMI 25.4
[2025-03-28 01:12] LABS: Anion Gap 15.2 mEq/L (5-15); Calcium 9.6 mg/dl (8.4-10.2); Carbon Dioxide 26 mmol/L (22.0-30.0); Chloride 88 mmol/L (98-107); Creatinine Clearance Estimated 23 mL/min (50-200); Estimated Glomerular Filt Rate 28 ml/min (>60); GFR (African American) 34 ML/MIN (>60); Glucose 214 mg/dl (74-100); Potassium 4.2 mmoL/L (3.5-5.1); Sodium 125 mmol/L (136-145)
[2025-03-28 01:27] LABS: Blood Urea Nitrogen 86 mg/dl (7-17)
[2025-03-28] MEDS: METOCLOPRAMIDE HCL 10MG/2ML VIAL 10 MG IVP ×4 (01:27→20:27)
[2025-03-28] MEDS: 0.9 % SODIUM CHLORIDE 1000ML 1,000 ML 75 ML IV (02:28)
--- NOTE | 2025-03-28 05:18 | PC.NURSE ---
Pt A&Ox4. Pt is on 2L/NC. Pt Afib on telemetry. Pt complained of a cough, pt was medicated per DEC. Pt's BP was low, provider notified. Provider held her lasix and ordered a 500ml bolus. Pt has had no other significant changes. No further complaints at this time, family is at bedside. Pt resting well in bed, call light is within reach. Plan of care ongoing.
[2025-03-28] MEDS: LEVOTHYROXINE 50MCG (0.05MG) TAB 50 MCG PO (06:01)
[2025-03-28] MEDS: humaLOG 100 UNITS/ML 10ML VIAL (SSI) SUBCUT ×4 (06:01→20:29)
[2025-03-28] MEDS: GUAIFENESIN/DEXTROMETHORPHAN 200MG/20MG 10ML UDC 10 ML PO ×2 (06:05→14:50)
[2025-03-28] MEDS: LEVALBUTEROL 1.25MG/3ML NEB 1.25 MG IH ×4 (06:09→19:26)
[2025-03-28] MEDS: IPRATROPIUM BROMIDE 0.5 MG/2.5ML SOLUTION IH ×4 (06:10→19:26)
[2025-03-28 06:17] LABS: POC Glucose,Bedside 181 (70-110)
[2025-03-28 06:25] LABS: Albumin Level 3.4 g/dl (3.5-5.0); Chloride 91 mmol/L (98-107); Potassium 5.7 mmoL/L (3.5-5.1); Sodium 128 mmol/L (136-145)
[2025-03-28 06:26] LABS: Basophils % 0.2 % (0.1-2.0); Hematocrit 28.5 % (37.0-47.0); Immature Granulocytes # 0.04 10^3uL; Immature Granulocytes % 0.5 %; Lymphocytes # 0.6 K/mm3 (0.7-4.5); Lymphocytes % 7.5 % (10-50); Mean Corpuscular HGB Conc 31.6 g/dL (31.8-35.4); Mean Corpuscular Hemoglobin 27.4 pg (27.0-31.2); Mean Corpuscular Volume 86.9 fl (81-99); Mean Platelet Volume 10.4 fl (7.4-10.4); Monocytes # 0.6 K/mm3 (0.1-1.0); Monocytes % 7.1 % (1.7-9.3); Neutrophils # 6.8 K/mm3 (1.8-7.8); Neutrophils % 84.7 % (37.0-80.0); Nucleated Red Blood Cells # 0 10^3/uL; Nucleated Red Blood Cells % 0 %; Platelet Count 108 K/mm3 (142-424); Red Blood Count 3.28 M/mm3 (4.20-5.40); Red Cell Distribution Width 16.7 % (11.5-17.5); Red Cell Distribution Width-SD 53.6 fL
[2025-03-28 06:28] LABS: Alanine Aminotransferase 18 U/L (12-78); Albumin/Globulin Ratio 0.9 (1.1-1.8); Alkaline Phosphatase 94 U/L (38-126); Anion Gap 17.7 mEq/L (5-15); Aspartate Amino Transferase 66 U/L (14-36); Bilirubin,Total 1.5 mg/dl (0.2-1.3); Carbon Dioxide 25 mmol/L (22.0-30.0); Creatinine Clearance Estimated 27 mL/min (50-200); Estimated Glomerular Filt Rate 33 ml/min (>60); GFR (African American) 40 ML/MIN (>60); Globulin 3.6 g/dL (1.3-3.2); Glucose 157 mg/dl (74-100)
[2025-03-28 06:29] LABS: Magnesium 1.9 mg/dl (1.6-2.3)
[2025-03-28 08:03] LABS: Blood Urea Nitrogen 88 mg/dl (7-17)
[2025-03-28] MEDS: CLOPIDOGREL 75MG TAB 75 MG PO (08:21)
[2025-03-28] MEDS: SERTRALINE 100MG TABLET 100 MG PO (08:21)
[2025-03-28] MEDS: DOXYCYCLINE HYCL 100 MG TABLET PO ×2 (08:21→20:27)
[2025-03-28] MEDS: METOPROLOL TARTRATE 25MG TABLET 25 MG PO (08:21)
[2025-03-28] MEDS: predniSONE 20MG TAB 20 MG PO (08:21)
[2025-03-28] MEDS: ENOXAPARIN 30MG/0.3ML SYRINGE 30 MG SUBCUT (08:22)
[2025-03-28] MEDS: POLYETHYLENE GLYCOL 3350 17 GM PACKET PO (08:22)
[2025-03-28] MEDS: LACTULOSE 20GM/30ML UDC 10 GM PO ×2 (08:22→20:28)
[2025-03-28] MEDS: INSULIN GLARGINE 100 UNITS/ML 3ML FLEXPEN 15 UNIT SUBCUT ×2 (08:32→20:28)
--- NOTE | 2025-03-28 09:33 | EXP.PULM.CON ---
History of Present Illness History of present illness: Ms. Mallory is a 89-year-old never smoker, [place] [facility] resident presented today with worsening respiratory distress progressive weakness A-fib RVR viral pneumonia heart failure exacerbation found to have worsening respiratory distress and left lower lobe consolidative changes and pulmonary was called for further evaluation and management. [facility] Disclaimer: The information contained in this section may have been updated after the patient was seen, as this information can be updated by other users. Medical History (Updated 03/28/25 @ 11:09 by Connie Bates MD) Pneumonia Acute respiratory failure with hypoxia Bilateral leg edema Acute on chronic heart failure with preserved ejection fraction (HFpEF) COPD (chronic obstructive pulmonary disease) Major depressive disorder with single episode Heart failure Myocardial infarct, old Pacemaker Hypothyroid Fall Chronic Kidney Disease Splenomegaly Cirrhosis of liver Ascites Seasonal allergies Hyperlipemia Hypertension Aneurysm of splenic artery Acute hyperkalemia Arthritis History of gastroesophageal reflux (GERD) Diabetes mellitus, type 2 History of cataract History of left heart catheterization (LHC) Gastritis PAF (paroxysmal atrial fibrillation) DKA (diabetic ketoacidosis) Lactose intolerance 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 Anemia Cardiac pacemaker in situ SSS (sick sinus syndrome) Coronary artery disease Surgical History Hx of cardiac cath Closed intertrochanteric fracture of left hip (~10/2024) History of esophagogastroduodenoscopy (EGD) Hx of tonsillectomy History of colonoscopy History of hysterectomy History of appendectomy History of cholecystectomy Family History Other Family history of cancer Social History (Updated 03/25/25 @ 16:12 by Phuong Franz RN) Smoking Status: Never smoker second hand exposure: No alcohol intake: never substance use type: denies use current occupational status: disabled Travel in the last 8 weeks?: None household members: family housing: house caffeine: No Review of Systems Constitutional Constitutional: Reports anorexia, Reports body ache(s), Reports fatigue and Reports lethargy Eyes Eyes: Denies eye discharge, Denies dry eyes, Denies irritation and Denies itchy eyes ENT Ears, Nose, Mouth, and Throat: Denies epistaxis, Denies facial pain, Denies lip swelling and Denies throat swelling *Cardiovascular Cardiovascular: Reports dyspnea and Reports dyspnea on exertion *Respiratory Respiratory: Reports chest congestion, Reports cough, Reports dyspnea, Reports dyspnea on exertion and Reports excessive phlegm production *Gastrointestinal Gastrointestinal: Denies abdominal pain, Denies belching and Denies cramping *Musculoskeletal Musculoskeletal: Reports back pain, Reports myalgias and Reports other (No small joint swelling or Pain) Psychiatric Psychiatric: Denies homicidal ideation and Denies suicidal ideation Endocrine Endocrine: Reports fatigue and Denies heat intolerance Hematologic/Lymphatic Hematologic/Lymphatic: Denies easy bleeding and Denies lymphadenopathy Allergic/Immunologic Allergic/Immunologic: Denies itchy eyes, Denies lip swelling and Denies throat swelling Pulmonology Exam Inpatient Vital signs and Labs for Last 24 Hours: Temp Pulse Resp BP Pulse Ox O2 Del Method O2 Flow Rate 98.3 F 87 20 104/71 L 98 Nasal Cannula 1 03/28/25 07:38 03/28/25 09:17 03/28/25 07:38 03/28/25 07:38 03/28/25 07:38 03/28/25 07:38 03/28/25 07:38 FiO2 28 03/25/25 23:03 Laboratory Results - last 24 hr 03/27/25 11:09: POC Glucose 323 H* 03/27/25 18:12: Sodium 124 L, Potassium 4.7, Chloride 87 L, Carbon Dioxide 27, Anion Gap 14.7, BUN 91 H, Creatinine 1.80 H, Estimated Creat Clear 22, Estimated GFR 27 L, Est GFR ( Amer) 32 L, Glucose 271 H, Calcium 9.6 03/28/25 00:55: Sodium 125 L, Potassium 4.2, Chloride 88 L, Carbon Dioxide 26, Anion Gap 15.2 H, BUN 86 H, Creatinine 1.70 H, Estimated Creat Clear 23, Estimated GFR 28 L, Est GFR ( Amer) 34 L, Glucose 214 H D, Calcium 9.6 03/28/25 05:55: WBC 8.0, RBC 3.28 L, Hgb 9.0 L, Hct 28.5 L, MCV 86.9, MCH 27.4, MCHC 31.6 L, RDW 16.7, Plt Count 108 L, MPV 10.4, Neut % (Auto) 84.7 H, Lymph % (Auto) 7.5 L, [place] % (Auto) 7.1, Eos % (Auto) 0.0 L, Baso % (Auto) 0.2, Neut # (Auto) 6.8, Lymph # (Auto) 0.6 L, [place] # (Auto) 0.6, Eos # (Auto) 0.0, Baso # (Auto) 0.0, Sodium 128 L, Potassium 5.7 H D, Chloride 91 L, Carbon Dioxide 25, Anion Gap 17.7 H, BUN 88 H, Creatinine 1.50 H, Estimated Creat Clear 27, Estimated GFR 33 L, Est GFR ( Amer) 40 L, Glucose 157 H D, Calcium 9.0, Magnesium 1.9, Total Bilirubin 1.5 H, AST 66 H D, ALT 18 D, Alkaline Phosphatase 94, Total Protein 7.0, Albumin 3.4 L, Globulin 3.6 H, Albumin/Globulin Ratio 0.9 L 03/28/25 06:00: POC Glucose 181 H I & O for Labs for Last 24 Hours: Intake & Output 03/25/25 03/26/25 03/27/25 03/28/25 23:59 23:59 23:59 23:59 Intake Total 120 / 564 1744 / 1744 1600 / 1600 425 / 425 Output Total 550 / 550 950 / 950 200 / 200 400 / 400 Balance -430 / 14 794 / 794 1400 / 1400 Weight 132 lb 142 lb 8 oz 140 lb 6 oz 143 lb 12.8 oz Constitutional: Present moderate distress Head: Present normocephalic and atraumatic ENT: Present normal exam, normal oropharynx and mucous membranes moist Neck: Present normal inspection and full ROM Respiratory: Present respiratory distress, rhonchi, diminished air movement and able to speak in complete sentences; Absent prolonged expiratory phase Cardiac: Present S1/S2, Tachycardia and radial pulses present GI: Present soft and distention; Absent tenderness or guarding Rectal (female): Present deferred (female): Present deferred Skin: Present intact; Absent cyanosis or jaundice Neuro: Present alert and awake Extremities: Present normal inspection; Absent clubbing or cyanosis Psychiatric: Present unable to assess Meds Home Medications and Allergies Home Medications ?Medication ?Instructions ?Recorded ?Confirmed ?Type levothyroxine 50 mcg tablet 50 mcg PO DAILY 10/13/24 03/25/25 History mirabegron 25 mg tablet,extended 25 mg PO DAILY 10/13/24 03/25/25 History release 24 hr (Myrbetriq) omeprazole 40 mg capsule,delayed 40 mg PO DAILY 10/13/24 03/25/25 History release rivaroxaban 15 mg tablet (Xarelto) 15 mg PO HS 10/13/24 03/25/25 History sertraline 100 mg tablet 100 mg PO DAILY 10/13/24 03/25/25 History lactulose 20 gram/30 mL oral 10 g (15 mL) PO BID 30 days #900 mL 10/18/24 03/25/25 Rx solution polyethylene glycol 3350 17 17 g PO DAILY #510 grams 10/18/24 03/25/25 Rx gram/dose oral powder (Miralax) sodium bicarbonate 325 mg tablet 325 mg PO BID 30 days #60 tabs 10/18/24 03/25/25 Rx insulin glargine 100 unit/mL (3 15 unit (0.15 mL) SQ BID 60 days 11/14/24 03/26/25 Rx mL) subcutaneous pen (Lantus #18 mL Solostar U-100 Insulin) budesonide 160 mcg-glycopyr 9 2 inh inhalation BID #10.7 grams 01/16/25 03/25/25 Rx mcg-formot 4.8 mcg/actuation HFA inhaler (Breztri Aerosphere) clopidogrel 75 mg tablet 75 mg PO DAILY 01/17/25 03/25/25 History insulin lispro 100 unit/mL 0 sliding scale dose SQ TID 01/17/25 03/26/25 History subcutaneous pen (Humalog KwikPen (U-100) Insulin) lidocaine 4 % topical patch 1 patch topical DAILY 01/17/25 03/25/25 History (Lidocaine Pain Relief) mecobalamin (vitamin B12) 5,000 5,000 mcg PO DAILY 01/17/25 03/25/25 History mcg chewable tablet metolazone 5 mg tablet 5 mg PO DAILY 01/17/25 03/25/25 History potassium chloride 10 mEq 20 meq PO DAILY 01/17/25 03/25/25 History capsule,extended release spironolactone 25 mg tablet 50 mg (2 x 25 mg) PO DAILY 30 days 01/19/25 03/25/25 Rx #60 tabs artificial 1 drp Eye-Left TID 05/27/25 06/22/25 History tears(kvnalvy-kcfownzr-yydmaxp) 0.1 %-0.3 %-0.2 % eye drops atorvastatin 40 mg tablet 40 mg PO HS 02/27/25 03/25/25 History ferrous gluconate 324 mg (38 mg 324 mg PO BID 02/27/25 03/25/25 History iron) tablet fluticasone propionate 50 1 spray intranasal DAILY 02/27/25 03/25/25 History mcg/actuation nasal spray,suspension furosemide 40 mg tablet (Lasix) 40 mg PO BID 02/27/25 03/25/25 History guaifenesin 100 mg/5 mL oral 200 mg PO Q6 PRN Cough 02/27/25 03/25/25 History liquid (Daksha-Tussin) hydrocodone 7.5 mg-acetaminophen 1 tab PO QID PRN pain 02/27/25 03/25/25 History 325 mg tablet metoprolol tartrate 25 mg tablet 25 mg PO BID 02/27/25 03/25/25 History prochlorperazine maleate 5 mg 2.5 mg (1/2 x 5 mg) PO TID PRN 02/27/25 03/25/25 Rx tablet (Compazine) nausea and vomiting #30 tabs New Prescriptions to Start Prescriptions: Allergies Allergy/AdvReac Type Severity Reaction Status Date / Time methylprednisolone AdvReac Mild Elevated Verified 02/27/25 13:59 glucose Results Laboratory Findings 03/28/25 05:55 03/28/25 05:55 Abnormal lab findings: Abnormal Labs 03/25/25 03/25/25 03/25/25 14:12 14:38 15:00 WBC 11.7 H RBC 3.61 L Hgb 10.3 L Hct 31.5 L MCHC Plt Count 117 L MPV Neut % (Auto) 87.7 H Lymph % (Auto) 4.2 L Eos % (Auto) 0.0 L Neut # (Auto) 10.2 H Lymph # (Auto) 0.5 L Neutrophils % (Manual) 86 H Lymphocytes % (Manual) 9 L VBG pH 7.49 H VBG pO2 46.2 H VBG Total CO2 28.1 H VBG O2 Saturation 81.8 H VBG Base Excess 3.6 H VBG Lactic Acid 3.4 H Sodium 133 L Potassium 3.4 L Chloride 88 L Anion Gap 18.4 H BUN 70 H Creatinine 1.50 H Estimated GFR 33 L Est GFR ( Amer) 40 L Glucose 224 H POC Glucose Lactate Total Bilirubin 1.7 H AST 43 H NT-Pro-B Natriuret Pep 7270 H Albumin Globulin 3.6 H Albumin/Globulin Ratio Lipase < 10 L Entero/Rhino (PCR) Detected A 03/25/25 03/25/25 03/26/25 18:40 20:11 05:10 WBC RBC 3.35 L Hgb 9.4 L Hct 29.4 L MCHC Plt Count 106 L MPV Neut % (Auto) 87.3 H Lymph % (Auto) 4.8 L Eos % (Auto) 0.0 L Neut # (Auto) 8.0 H Lymph # (Auto) 0.4 L Neutrophils % (Manual) 89 H Lymphocytes % (Manual) 7 L VBG pH VBG pO2 VBG Total CO2 VBG O2 Saturation VBG Base Excess VBG Lactic Acid Sodium 131 L Potassium Chloride 90 L Anion Gap 15.8 H BUN 74 H Creatinine 1.60 H Estimated GFR 30 L Est GFR ( Amer) 37 L Glucose 208 H POC Glucose 187 H Lactate 2.8 H Total Bilirubin 2.0 H AST NT-Pro-B Natriuret Pep Albumin Globulin 3.3 H Albumin/Globulin Ratio Lipase Entero/Rhino (PCR) 03/26/25 03/26/25 03/26/25 06:28 09:41 11:00 WBC RBC Hgb Hct MCHC Plt Count MPV Neut % (Auto) Lymph % (Auto) Eos % (Auto) Neut # (Auto) Lymph # (Auto) Neutrophils % (Manual) Lymphocytes % (Manual) VBG pH VBG pO2 VBG Total CO2 VBG O2 Saturation VBG Base Excess VBG Lactic Acid Sodium Potassium Chloride Anion Gap BUN Creatinine Estimated GFR Est GFR ( Amer) Glucose POC Glucose 219 H 307 H* 304 H* Lactate Total Bilirubin AST NT-Pro-B Natriuret Pep Albumin Globulin Albumin/Globulin Ratio Lipase Entero/Rhino (PCR) 03/26/25 03/26/25 03/26/25 13:35 14:55 16:06 WBC RBC Hgb Hct MCHC Plt Count MPV Neut % (Auto) Lymph % (Auto) Eos % (Auto) Neut # (Auto) Lymph # (Auto) Neutrophils % (Manual) Lymphocytes % (Manual) VBG pH 7.48 H VBG pO2 145.3 H VBG Total CO2 28.0 H VBG O2 Saturation 98.6 H VBG Base Excess 3.4 H VBG Lactic Acid 2.9 H Sodium Potassium Chloride Anion Gap BUN Creatinine Estimated GFR Est GFR ( Amer) Glucose POC Glucose 321 H* 285 H Lactate Total Bilirubin AST NT-Pro-B Natriuret Pep Albumin Globulin Albumin/Globulin Ratio Lipase Entero/Rhino (PCR) 03/26/25 03/26/25 03/27/25 19:47 19:48 05:58 WBC RBC Hgb Hct MCHC Plt Count MPV Neut % (Auto) Lymph % (Auto) Eos % (Auto) Neut # (Auto) Lymph # (Auto) Neutrophils % (Manual) Lymphocytes % (Manual) VBG pH VBG pO2 VBG Total CO2 VBG O2 Saturation VBG Base Excess VBG Lactic Acid Sodium Potassium Chloride Anion Gap BUN Creatinine Estimated GFR Est GFR ( Amer) Glucose POC Glucose 284 H 273 H Lactate 2.5 H Total Bilirubin AST NT-Pro-B Natriuret Pep Albumin Globulin Albumin/Globulin Ratio Lipase Entero/Rhino (PCR) 03/27/25 03/27/25 03/27/25 06:14 08:50 11:09 WBC RBC 3.22 L Hgb 9.2 L Hct 27.6 L MCHC Plt Count 109 L MPV 10.6 H Neut % (Auto) 87.7 H Lymph % (Auto) 4.7 L Eos % (Auto) 0.0 L Neut # (Auto) Lymph # (Auto) 0.4 L Neutrophils % (Manual) 79 H Lymphocytes % (Manual) 8 L VBG pH VBG pO2 VBG Total CO2 VBG O2 Saturation VBG Base Excess VBG Lactic Acid Sodium 129 L Potassium Chloride 88 L Anion Gap 18.0 H BUN 90 H Creatinine 1.70 H Estimated GFR 28 L Est GFR ( Amer) 34 L Glucose 265 H POC Glucose 338 H* 323 H* Lactate Total Bilirubin AST 37 H D NT-Pro-B Natriuret Pep Albumin Globulin 3.3 H Albumin/Globulin Ratio Lipase Entero/Rhino (PCR) 03/27/25 03/28/25 03/28/25 18:12 00:55 05:55 WBC RBC 3.28 L Hgb 9.0 L Hct 28.5 L MCHC 31.6 L Plt Count 108 L MPV Neut % (Auto) 84.7 H Lymph % (Auto) 7.5 L Eos % (Auto) 0.0 L Neut # (Auto) Lymph # (Auto) 0.6 L Neutrophils % (Manual) Lymphocytes % (Manual) VBG pH VBG pO2 VBG Total CO2 VBG O2 Saturation VBG Base Excess VBG Lactic Acid Sodium 124 L 125 L 128 L Potassium 5.7 H D Chloride 87 L 88 L 91 L Anion Gap 15.2 H 17.7 H BUN 91 H 86 H 88 H Creatinine 1.80 H 1.70 H 1.50 H Estimated GFR 27 L 28 L 33 L Est GFR ( Amer) 32 L 34 L 40 L Glucose 271 H 214 H D 157 H D POC Glucose Lactate Total Bilirubin 1.5 H AST 66 H D NT-Pro-B Natriuret Pep Albumin 3.4 L Globulin 3.6 H Albumin/Globulin Ratio 0.9 L Lipase Entero/Rhino (PCR) 03/28/25 06:00 WBC RBC Hgb Hct MCHC Plt Count MPV Neut % (Auto) Lymph % (Auto) Eos % (Auto) Neut # (Auto) Lymph # (Auto) Neutrophils % (Manual) Lymphocytes % (Manual) VBG pH VBG pO2 VBG Total CO2 VBG O2 Saturation VBG Base Excess VBG Lactic Acid Sodium Potassium Chloride Anion Gap BUN Creatinine Estimated GFR Est GFR ( Amer) Glucose POC Glucose 181 H Lactate Total Bilirubin AST NT-Pro-B Natriuret Pep Albumin Globulin Albumin/Globulin Ratio Lipase Entero/Rhino (PCR) Assessment and Plan *Assessment and plan (1) Acute respiratory failure with hypoxia: Status: Acute Category: Medical Code(s): J96.01 - Acute respiratory failure with hypoxia (2) Pneumonia: Status: Acute Category: Medical Code(s): J18.9 - Pneumonia, unspecified organism Plan Ms. Mallory is a 89-year-old never smoker, [place] [facility] resident presented today with worsening respiratory distress progressive weakness A-fib RVR viral pneumonia heart failure exacerbation found to have worsening respiratory distress and left lower lobe consolidative changes and pulmonary was called for further evaluation and management. Patient last seen in pulmonary clinic June 2024 for large right-sided pleural effusion and large volume ascites status post paracentesis with a negative cytopathology for malignancy. Low-grade fevers upon admission. Neutrophilic predominant leukocytosis improving Patient being managed for COPD exacerbation with nebulization therapies and steroids. CTA December 2024 no significant emphysematous changes noted. Large right pleural effusion noted. CT Abdomen, dense LLL consolidation. Viral PCR entero/Rhino positive. No significant effusions noted on this admission on CT abdomen. Currently receiving cefepime initiated on 03/27/25 and prednisone. Patient remained afebrile with stable oxygen requirements throughout her hospital admission Plan: Continue oxygen supplementation to maintain O2 saturation of 90% and above. Weaned to 2 L this morning. Will follow. Xopenex and ipratropium 3 times daily along with Mucomyst 3 times daily and chest percussion therapy Discontinue prednisone Continue cefepime pending sputum culture results
--- NOTE | 2025-03-28 12:43 | P.PN_ITS ---
Subjective *Date: 03/28/25 *Time: 12:43 Interval history: Still complaining of significant cough and weakness. Requiring 1 to 2 L oxygen. No nausea or vomiting. Family at bedside, baseline mentation. Afebrile Medical Exam Vital signs and Labs for Last 24 Hours: Vital Signs Temp Pulse Pulse Resp BP Pulse Ox O2 Del Method 03/28/25 12:38 Nasal Cannula 03/28/25 11:55 97.7 F 126 H 18 111/69 100 Nasal Cannula 03/28/25 11:25 Nasal Cannula 03/28/25 09:42 Nasal Cannula 03/28/25 09:29 98 Nasal Cannula 03/28/25 09:17 87 03/28/25 09:17 77 03/28/25 08:00 Nasal Cannula 03/28/25 08:00 120 H 03/28/25 07:38 98.3 F 119 H 20 104/71 L 98 Nasal Cannula 03/28/25 06:47 Nasal Cannula 03/28/25 06:10 83 03/28/25 06:10 80 03/28/25 05:00 Nasal Cannula 03/28/25 04:00 90 03/28/25 04:00 98.2 F 107 H 20 96/73 L 98 Nasal Cannula 03/28/25 02:55 Nasal Cannula 03/28/25 00:51 Nasal Cannula 03/28/25 00:00 100 H 03/27/25 23:51 97.6 F 94 H 20 101/61 L 96 Nasal Cannula 03/27/25 23:32 120 H 24 03/27/25 23:30 115 H 03/27/25 23:30 120 H 03/27/25 23:00 Nasal Cannula 03/27/25 21:00 Nasal Cannula 03/27/25 20:21 121/78 03/27/25 20:00 125 H 03/27/25 20:00 Nasal Cannula 03/27/25 19:46 98.7 F 134 H 22 92/61 L 100 Nasal Cannula 03/27/25 18:36 Nasal Cannula 03/27/25 17:56 115 H 03/27/25 17:56 118 H 03/27/25 17:56 98 Nasal Cannula 03/27/25 16:54 Nasal Cannula 03/27/25 16:00 130 H 03/27/25 16:00 99.1 F 110 H 18 105/71 L 98 Nasal Cannula 03/27/25 15:00 Nasal Cannula 03/27/25 13:02 80 03/27/25 13:02 77 03/27/25 13:00 Nasal Cannula O2 Flow Rate 03/28/25 12:38 1 03/28/25 11:55 1 03/28/25 11:25 1 03/28/25 09:42 1 03/28/25 09:29 1 03/28/25 09:17 03/28/25 09:17 03/28/25 08:00 1 03/28/25 08:00 03/28/25 07:38 1 03/28/25 06:47 2 03/28/25 06:10 03/28/25 06:10 03/28/25 05:00 2 03/28/25 04:00 03/28/25 04:00 03/28/25 02:55 2 03/28/25 00:51 2 03/28/25 00:00 03/27/25 23:51 03/27/25 23:32 03/27/25 23:30 03/27/25 23:30 03/27/25 23:00 2 03/27/25 21:00 2 03/27/25 20:21 03/27/25 20:00 03/27/25 20:00 2 03/27/25 19:46 1 03/27/25 18:36 03/27/25 17:56 03/27/25 17:56 03/27/25 17:56 1 03/27/25 16:54 03/27/25 16:00 03/27/25 16:00 2 03/27/25 15:00 03/27/25 13:02 03/27/25 13:02 03/27/25 13:00 Intake and Output 03/27/25 03/28/25 03/28/25 23:59 07:59 15:59 Intake Total 680 / 1600 225 / 425 200 / 425 Output Total 0 / 200 400 / 400 Balance 680 / 1400 - 25 25 Intake: Intake, Oral Amount 180 / 1100 225 / 425 200 / 425 Intake, Total IV Amount 500 / 500 0.9 % Sodium Chloride 1000ML 500 / 500 500 ml @ 250 mls/hr IV .Q2H [facility] Rx#:[id number] Output: Output, Urine Amount 0 / 200 400 / 400 Other: Number of Unmeasured Voids 1 0 Number of Bowel Movements 1 Weight 65.227 kg Patient Weight 03/28/25 23:59 Weight 65.227 kg Laboratory Results - last 24 hr 03/27/25 18:12: Sodium 124 L, Potassium 4.7, Chloride 87 L, Carbon Dioxide 27, Anion Gap 14.7, BUN 91 H, Creatinine 1.80 H, Estimated Creat Clear 22, Estimated GFR 27 L, Est GFR ( Amer) 32 L, Glucose 271 H, Calcium 9.6 03/28/25 00:55: Sodium 125 L, Potassium 4.2, Chloride 88 L, Carbon Dioxide 26, Anion Gap 15.2 H, BUN 86 H, Creatinine 1.70 H, Estimated Creat Clear 23, Estimated GFR 28 L, Est GFR ( Amer) 34 L, Glucose 214 H D, Calcium 9.6 03/28/25 05:55: WBC 8.0, RBC 3.28 L, Hgb 9.0 L, Hct 28.5 L, MCV 86.9, MCH 27.4, MCHC 31.6 L, RDW 16.7, Plt Count 108 L, MPV 10.4, Neut % (Auto) 84.7 H, Lymph % (Auto) 7.5 L, [place] % (Auto) 7.1, Eos % (Auto) 0.0 L, Baso % (Auto) 0.2, Neut # (Auto) 6.8, Lymph # (Auto) 0.6 L, [place] # (Auto) 0.6, Eos # (Auto) 0.0, Baso # (Auto) 0.0, Sodium 128 L, Potassium 5.7 H D, Chloride 91 L, Carbon Dioxide 25, Anion Gap 17.7 H, BUN 88 H, Creatinine 1.50 H, Estimated Creat Clear 27, Estimated GFR 33 L, Est GFR ( Amer) 40 L, Glucose 157 H D, Calcium 9.0, Magnesium 1.9, Total Bilirubin 1.5 H, AST 66 H D, ALT 18 D, Alkaline Phosphatase 94, Total Protein 7.0, Albumin 3.4 L, Globulin 3.6 H, Albumin/Globulin Ratio 0.9 L 03/28/25 06:00: POC Glucose 181 H I & O for Labs for Last 24 Hours: Intake & Output 06/22/03/26/25 03/27/25 03/28/25 23:59 23:59 23:59 23:59 Intake Total 120 / 564 1744 / 1744 1600 / 1600 425 / 425 Output Total 550 / 550 950 / 950 200 / 200 400 / 400 Balance -430 / 14 794 / 794 1400 / 1400 Weight 59.874 kg 64.637 kg 63.673 kg 65.227 kg Constitutional: Present no acute distress, average body habitus, chronically ill appearing and cooperative Head: Present atraumatic and normocephalic ENT: Present normal exam Neck: Present normal inspection Respiratory: Present crackles and normal respiratory effort; Absent prolonged expiratory phase, rhonchi or wheezes Cardiac: Present Tachycardia Comment:: Irregularly irregular GI: Present soft and normal bowel sounds; Absent distention or tenderness Extremities: Present normal inspection and full ROM; Absent edema Skin: Present intact; Absent erythema Neuro: Present Grossly Intact, alert, awake, oriented x 3 and moves all extremities Comment:: Vision impaired Assessment and Plan *Assessment and plan (1) Acute respiratory failure with hypoxia: Status: Acute Category: Medical Code(s): J96.01 - Acute respiratory failure with hypoxia (2) Rhinovirus infection: Status: Acute Category: Medical Code(s): B34.8 - Other viral infections of unspecified site (3) Pneumonia: Status: Acute Category: Medical Code(s): J18.9 - Pneumonia, unspecified organism (4) Diabetes mellitus, type 2: Status: Acute Qualifiers: Diabetes mellitus terminal system operator insulin use: with terminal system operator use Diabetes mellitus complication status: with circulatory complication Diabetes mellitus complication detail: with other circulatory complications Qualified Code(s): E11.59 - Type 2 diabetes mellitus with other circulatory complications; Z79.4 - retirement (current) use of insulin Category: Medical Code(s): E11.9 - Type 2 diabetes mellitus without complications (5) Atrial fibrillation: Status: Acute Qualifiers: Atrial fibrillation type: unspecified chronic Qualified Code(s): I48.20 - Chronic atrial fibrillation, unspecified Category: Medical Code(s): I48.91 - Unspecified atrial fibrillation Plan Kareen Mallory is an 89-year-old female who presented from [facility] for progressive weakness. On route EMS found her to be in A-fib RVR and was given IV diltiazem 20 mg with improvement in heart rate. Also found to have respiratory failure with hypoxia secondary to rhinovirus. Showing slow improvement. Continue to require inpatient management. Anticipate discharge tomorrow. Problems addressed as follows: #Sepsis #Left lower lobe community-acquired pneumonia #COPD exacerbation #Rhinovirus #Weakness ? Patient and family complained of worsening productive cough over the past week, positive for rhinovirus on respiratory panel. ? Continue Cefepime 2 g IV daily and doxycycline 100 mg IV twice daily ? Continue steroids. Awaiting sputum culture results. - Discussed case with pulmonology, recommend no steroids as patient does not have clear history of COPD. Continue antibiotics as above. Will complete empiric course pending sputum cultures. - White count normal at 8, hemoglobin 9. Repeat CBC, CMP, magnesium ordered for the morning ? Daughter states she does not think that patient is able to inhale her Breztri properly at nursing facility, will plan to discharge with nebs. - Wean oxygen as tolerated, goal sats greater 90%. Currently on 1 L #THANH on CKD stage III #Uremia ? Initial creatinine 1.5, bumped to 1.8. BUN 91; showing improvement, BUN 88, creatinine 1.5. - Patient overall looks dry on exam. Does have a history of HFpEF with elevated BNP and 7000's's this admission. But no signs of volume overload. Aggressive home diuretic regimen with Lasix 40 mg twice daily, metolazone 5 mg, spironolactone 50 mg. - Continue oral hydration, holding on IV fluids #HFpEF #A-fib ? Holding home Lasix 40 mg twice daily, spironolactone 50 mg, metolazone 5 mg as there is suspicion of depletion. ? Continue metoprolol titrate 25 mg twice daily, Xarelto 15 mg. #SUMMERS cirrhosis ? Hold Lasix, spironolactone, lactulose as above. Stable at this time. ? Ammonia normal. #CAD with stents ? Continue Plavix, statin. #Hypothyroidism ? Continue home levothyroxine. TFTs normal. #Anxiety/depression ? Continue home sertraline. Full code DVT prophylaxis: On Xarelto
[2025-03-28] MEDS: ACETYLCYSTEINE 20% 4ML VIAL 1 ML IH ×2 (13:01→19:26)
[2025-03-28] MEDS: METOPROLOL TARTRATE 5MG/5ML VIAL 5 MG IV (14:19)
[2025-03-28] MEDS: CEFEPIME HCL 2 GM in 0.9 % SODIUM CHLORIDE 100 ML IV (16:28)
[2025-03-28] MEDS: APAP/HYDROCODONE 325MG/7.5MG TAB 1 TAB PO ×2 (16:30→22:40)
--- NOTE | 2025-03-28 16:53 | PC.NURSE ---
pt is A&Ox4. pt is a fib on the monitor and her heart rate has been elevated today up into the higher 130s(physician is aware). pt had chest physiotherapy done by RT earlier today. pt is currently awake and sitting in the chair with family at bedside. she complains of some pain in her back. Lung sounds diminshed and scattered rhonchi. Abdomen is firm, non-tender with hypoactive bowel sounds. Skin tears noted to bilateral upper extremity. Dressing in place. No other needs at this time. Call light within reach.
[2025-03-28 20:22] LABS: POC Glucose,Bedside 359 (70-110)
--- NOTE | 2025-03-28 20:23 | PC.NURSE ---
Spoke with Hospitalist about nighttime metoprolol. BP 98/68 and HR of 120. Ordered to hold dose at this time.
[2025-03-28] MEDS: RIVAROXABAN 15MG TABLET 15 MG PO (20:27)
[2025-03-28] MEDS: ATORVASTATIN 40MG TABLET 40 MG PO (20:27)
[2025-03-28] MEDS: PANTOPRAZOLE 40MG TABLET 40 MG PO (20:27)
[2025-03-29] VITALS (10 sets, daily range): BP systolic 101–122; BP diastolic 53–79; PULSE 70–120; RESP 14–22; TEMP 36.5–36.9; O2SAT 93–100; BMI 24.7
[2025-03-29] MEDS: METOCLOPRAMIDE HCL 10MG/2ML VIAL 10 MG IVP ×4 (00:59→20:30)
[2025-03-29] MEDS: IPRATROPIUM BROMIDE 0.5 MG/2.5ML SOLUTION IH ×3 (06:02→19:53)
[2025-03-29] MEDS: ACETYLCYSTEINE 20% 4ML VIAL 1 ML IH ×3 (06:02→19:53)
[2025-03-29] MEDS: LEVALBUTEROL 1.25MG/3ML NEB 1.25 MG IH ×3 (06:02→19:53)
[2025-03-29] MEDS: humaLOG 100 UNITS/ML 10ML VIAL (SSI) SUBCUT ×4 (06:15→20:38)
[2025-03-29] MEDS: LEVOTHYROXINE 50MCG (0.05MG) TAB 50 MCG PO (06:16)
[2025-03-29 06:28] LABS: POC Glucose,Bedside 219 (70-110)
[2025-03-29 06:55] LABS: Albumin Level 3.7 g/dl (3.5-5.0); Chloride 92 mmol/L (98-107); Potassium 4.9 mmoL/L (3.5-5.1); Sodium 130 mmol/L (136-145)
[2025-03-29 06:58] LABS: Alanine Aminotransferase 18 U/L (12-78); Albumin/Globulin Ratio 1.2 (1.1-1.8); Alkaline Phosphatase 131 U/L (38-126); Anion Gap 17.9 mEq/L (5-15); Aspartate Amino Transferase 43 U/L (14-36); Bilirubin,Total 1.3 mg/dl (0.2-1.3); Carbon Dioxide 25 mmol/L (22.0-30.0); Creatinine Clearance Estimated 28 mL/min (50-200); Estimated Glomerular Filt Rate 36 ml/min (>60); GFR (African American) 43 ML/MIN (>60); Globulin 3.2 g/dL (1.3-3.2); Total Protein,Serum 6.9 g/dl (6.3-8.2)
[2025-03-29 06:59] LABS: Calcium 9.4 mg/dl (8.4-10.2); Glucose 212 mg/dl (74-100)
[2025-03-29 07:21] LABS: Basophils % 0.1 % (0.1-2.0); Hematocrit 27.6 % (37.0-47.0); Hemoglobin 9.2 g/dL (12.2-16.2); Immature Granulocytes % 1.3 %; Lymphocytes # 0.6 K/mm3 (0.7-4.5); Lymphocytes % 7.1 % (10-50); Mean Corpuscular HGB Conc 33.3 g/dL (31.8-35.4); Mean Corpuscular Hemoglobin 28.3 pg (27.0-31.2); Mean Corpuscular Volume 84.9 fl (81-99); Monocytes # 0.8 K/mm3 (0.1-1.0); Neutrophils # 6.3 K/mm3 (1.8-7.8); Neutrophils % 81.5 % (37.0-80.0); Nucleated Red Blood Cells # 0.02 10^3/uL; Nucleated Red Blood Cells % 0.3 %; Platelet Count 128 K/mm3 (142-424); Red Blood Count 3.25 M/mm3 (4.20-5.40); Red Cell Distribution Width 16.9 % (11.5-17.5); Red Cell Distribution Width-SD 52.5 fL; White Blood Count 7.8 K/mm3 (4.8-10.8)
--- NOTE | 2025-03-29 07:38 | P.PN_ITS ---
Subjective *Date: 03/29/25 *Time: 07:38 Medical Exam Vital signs and Labs for Last 24 Hours: Vital Signs Temp Pulse Pulse Resp BP Pulse Ox O2 Del Method 03/29/25 07:35 Nasal Cannula 03/29/25 07:35 Nasal Cannula 03/29/25 06:42 Nasal Cannula 03/29/25 06:04 115 H 03/29/25 06:04 115 H 14 03/29/25 06:04 115 H 03/29/25 06:04 96 Nasal Cannula 03/29/25 05:00 Nasal Cannula 03/29/25 04:00 97.8 F 70 20 101/53 L 93 L Nasal Cannula 03/29/25 04:00 100 H 03/29/25 03:00 Nasal Cannula 03/29/25 01:00 Nasal Cannula 03/29/25 00:00 100 H 03/29/25 00:00 98.4 F 118 H 20 112/79 94 L Nasal Cannula 03/28/25 23:00 Nasal Cannula 03/28/25 21:00 Nasal Cannula 03/28/25 20:00 120 H 03/28/25 20:00 Nasal Cannula 03/28/25 19:58 97.9 F 120 H 22 98/68 L 99 Nasal Cannula 03/28/25 19:30 76 03/28/25 19:30 76 22 03/28/25 19:30 77 03/28/25 19:30 96 Nasal Cannula 03/28/25 18:44 Nasal Cannula 03/28/25 16:49 Nasal Cannula 03/28/25 16:00 96 Nasal Cannula 03/28/25 16:00 130 H 03/28/25 16:00 98.5 F 128 H 22 100/60 L 96 Nasal Cannula 03/28/25 14:55 Nasal Cannula 03/28/25 13:08 80 03/28/25 13:08 78 03/28/25 13:08 78 18 03/28/25 12:38 Nasal Cannula 03/28/25 12:00 110 H 03/28/25 11:55 97.7 F 126 H 18 111/69 100 Nasal Cannula 03/28/25 11:25 Nasal Cannula 03/28/25 09:42 Nasal Cannula 03/28/25 09:29 98 Nasal Cannula 03/28/25 09:17 87 03/28/25 09:17 77 03/28/25 08:00 Nasal Cannula 03/28/25 08:00 120 H O2 Flow Rate 03/29/25 07:35 1 03/29/25 07:35 1 03/29/25 06:42 1 03/29/25 06:04 03/29/25 06:04 03/29/25 06:04 03/29/25 06:04 2 03/29/25 05:00 2 03/29/25 04:00 03/29/25 04:00 03/29/25 03:00 2 03/29/25 01:00 2 03/29/25 00:00 03/29/25 00:00 2 03/28/25 23:00 2 03/28/25 21:00 2 03/28/25 20:00 03/28/25 20:00 2 03/28/25 19:58 2 03/28/25 19:30 03/28/25 19:30 03/28/25 19:30 03/28/25 19:30 1 03/28/25 18:44 1 03/28/25 16:49 1 03/28/25 16:00 1 03/28/25 16:00 03/28/25 16:00 1 03/28/25 14:55 1 03/28/25 13:08 03/28/25 13:08 03/28/25 13:08 03/28/25 12:38 1 03/28/25 12:00 03/28/25 11:55 1 03/28/25 11:25 1 03/28/25 09:42 1 03/28/25 09:29 1 03/28/25 09:17 03/28/25 09:17 03/28/25 08:00 1 03/28/25 08:00 Intake and Output 03/28/25 03/28/25 03/29/25 15:59 23:59 07:59 Intake Total 440 / 1085 370 / 1085 50 / 50 Output Total 300 / 1300 600 / 1300 200 / 200 Balance 140 / -215 -230 / -215 -150 / -150 Intake: Intake, Oral Amount 440 / 935 270 / 935 Intake, Total IV Amount 100 / 150 50 / 50 Cefepime HCl 2 gm In 0.9 % 100 / 150 50 / 50 Sodium Chloride 100 ml @ 200 mls/hr IV Q24H [facility] Rx#:[id number] Output: Output, Urine Amount 300 / 1300 600 / 1300 200 / 200 Other: Number of Unmeasured Voids 0 0 0 Number of Bowel Movements 1 Weight 65 kg 63.231 kg Patient Weight 03/29/25 23:59 Weight 63.231 kg Laboratory Results - last 24 hr 03/28/25 05:55: Sodium 128 L, Potassium 5.7 H D, Chloride 91 L, Carbon Dioxide 25, Anion Gap 17.7 H, BUN 88 H, Creatinine 1.50 H, Estimated Creat Clear 27, Estimated GFR 33 L, Est GFR ( Amer) 40 L, Glucose 157 H D, Calcium 9.0, Magnesium 1.9, Total Bilirubin 1.5 H, AST 66 H D, ALT 18 D, Alkaline Phosphatase 94, Total Protein 7.0, Albumin 3.4 L, Globulin 3.6 H, Albumin/Globulin Ratio 0.9 L 03/28/25 20:13: POC Glucose 359 H* 03/29/25 06:15: WBC 7.8, RBC 3.25 L, Hgb 9.2 L, Hct 27.6 L, MCV 84.9, MCH 28.3, MCHC 33.3, RDW 16.9, Plt Count 128 L, MPV 11.0 H, Neut % (Auto) 81.5 H, Lymph % (Auto) 7.1 L, [place] % (Auto) 10.0 H, Eos % (Auto) 0.0 L, Baso % (Auto) 0.1, Neut # (Auto) 6.3, Lymph # (Auto) 0.6 L, [place] # (Auto) 0.8, Eos # (Auto) 0.0, Baso # (Auto) 0.0, POC Glucose 219 H I & O for Labs for Last 24 Hours: Intake & Output 03/26/25 03/27/25 03/28/25 03/29/25 23:59 23:59 23:59 23:59 Intake Total 1744 / 1744 1600 / 1600 1035 / 1085 50 / 50 Output Total 950 / 950 200 / 200 1300 / 1300 200 / 200 Balance 794 / 794 1400 / 1400 -265 / -215 -150 / -150 Weight 64.637 kg 63.673 kg 65 kg 63.231 kg The patient's infection will respond to the chosen ABx?: Yes Is the patient receiving the right drug, dose, and route?: Yes Could a more targeted ABx be ordered?: No
[2025-03-29 07:41] LABS: Blood Urea Nitrogen 88 mg/dl (7-17)
[2025-03-29] MEDS: POLYETHYLENE GLYCOL 3350 17 GM PACKET PO (08:36)
[2025-03-29] MEDS: CLOPIDOGREL 75MG TAB 75 MG PO (08:37)
[2025-03-29] MEDS: SERTRALINE 100MG TABLET 100 MG PO (08:37)
[2025-03-29] MEDS: METOPROLOL TARTRATE 50MG TABLET 50 MG PO (08:37)
[2025-03-29] MEDS: ENOXAPARIN 30MG/0.3ML SYRINGE 30 MG SUBCUT (08:37)
[2025-03-29] MEDS: DOXYCYCLINE HYCL 100 MG TABLET PO ×2 (08:37→20:29)
[2025-03-29] MEDS: INSULIN GLARGINE 100 UNITS/ML 3ML FLEXPEN 15 UNIT SUBCUT ×2 (08:38→20:31)
[2025-03-29] MEDS: LACTULOSE 20GM/30ML UDC 10 GM PO ×2 (08:38→20:27)
[2025-03-29] MEDS: APAP/HYDROCODONE 325MG/7.5MG TAB 1 TAB PO ×2 (08:44→20:37)
--- NOTE | 2025-03-29 09:45 | P.PN_ITS ---
Subjective *Date: 03/29/25 *Time: 12:46 Interval history: No acute respiratory vents overnight. Patient denies any new respiratory complaints. She complains of progressively worsening weakness and inability to cough Pulmonology Exam Inpatient Vital signs and Labs for Last 24 Hours: Temp Pulse Resp BP Pulse Ox O2 Del Method O2 Flow Rate 98.1 F 115 H 18 122/78 96 Room Air 1 03/29/25 08:00 03/29/25 06:04 03/29/25 08:00 03/29/25 08:00 03/29/25 08:00 03/29/25 08:00 03/29/25 08:00 FiO2 28 03/25/25 23:03 Laboratory Results - last 24 hr 03/28/25 20:13: POC Glucose 359 H* 03/29/25 06:15: WBC 7.8, RBC 3.25 L, Hgb 9.2 L, Hct 27.6 L, MCV 84.9, MCH 28.3, MCHC 33.3, RDW 16.9, Plt Count 128 L, MPV 11.0 H, Neut % (Auto) 81.5 H, Lymph % (Auto) 7.1 L, [place] % (Auto) 10.0 H, Eos % (Auto) 0.0 L, Baso % (Auto) 0.1, Neut # (Auto) 6.3, Lymph # (Auto) 0.6 L, [place] # (Auto) 0.8, Eos # (Auto) 0.0, Baso # (Auto) 0.0, Sodium 130 L, Potassium 4.9, Chloride 92 L, Carbon Dioxide 25, Anion Gap 17.9 H, BUN 88 H, Creatinine 1.40 H, Estimated Creat Clear 28, Estimated GFR 36 L, Est GFR ( Amer) 43 L, Glucose 212 H, POC Glucose 219 H, Calcium 9.4, Magnesium 2.0, Total Bilirubin 1.3, AST 43 H D, ALT 18, Alkaline Phosphatase 131 H, Total Protein 6.9, Albumin 3.7, Globulin 3.2, Albumin/Globulin Ratio 1.2 Temp Pulse Resp BP Pulse Ox O2 Del Method O2 Flow Rate 98.3 F 87 20 104/71 L 98 Nasal Cannula 1 03/28/25 07:38 03/28/25 09:17 03/28/25 07:38 03/28/25 07:38 03/28/25 07:38 03/28/25 07:38 03/28/25 07:38 FiO2 28 03/25/25 23:03 Laboratory Results - last 24 hr 03/27/25 11:09: POC Glucose 323 H* 03/27/25 18:12: Sodium 124 L, Potassium 4.7, Chloride 87 L, Carbon Dioxide 27, Anion Gap 14.7, BUN 91 H, Creatinine 1.80 H, Estimated Creat Clear 22, Estimated GFR 27 L, Est GFR ( Amer) 32 L, Glucose 271 H, Calcium 9.6 03/28/25 00:55: Sodium 125 L, Potassium 4.2, Chloride 88 L, Carbon Dioxide 26, Anion Gap 15.2 H, BUN 86 H, Creatinine 1.70 H, Estimated Creat Clear 23, Estimated GFR 28 L, Est GFR ( Amer) 34 L, Glucose 214 H D, Calcium 9.6 03/28/25 05:55: WBC 8.0, RBC 3.28 L, Hgb 9.0 L, Hct 28.5 L, MCV 86.9, MCH 27.4, MCHC 31.6 L, RDW 16.7, Plt Count 108 L, MPV 10.4, Neut % (Auto) 84.7 H, Lymph % (Auto) 7.5 L, [place] % (Auto) 7.1, Eos % (Auto) 0.0 L, Baso % (Auto) 0.2, Neut # (Auto) 6.8, Lymph # (Auto) 0.6 L, [place] # (Auto) 0.6, Eos # (Auto) 0.0, Baso # (Auto) 0.0, Sodium 128 L, Potassium 5.7 H D, Chloride 91 L, Carbon Dioxide 25, Anion Gap 17.7 H, BUN 88 H, Creatinine 1.50 H, Estimated Creat Clear 27, Estimated GFR 33 L, Est GFR ( Amer) 40 L, Glucose 157 H D, Calcium 9.0, Magnesium 1.9, Total Bilirubin 1.5 H, AST 66 H D, ALT 18 D, Alkaline Phosphatase 94, Total Protein 7.0, Albumin 3.4 L, Globulin 3.6 H, Albumin/Globulin Ratio 0.9 L 03/28/25 06:00: POC Glucose 181 H I & O for Labs for Last 24 Hours: Intake & Output 03/26/25 03/27/25 03/28/25 03/29/25 23:59 23:59 23:59 23:59 Intake Total 1744 / 1744 1600 / 1600 1035 / 1085 320 / 320 Output Total 950 / 950 200 / 200 1300 / 1300 200 / 200 Balance 794 / 794 1400 / 1400 -265 / -215 120 / 120 Weight 142 lb 8 oz 140 lb 6 oz 143 lb 4.807 oz 139 lb 6.4 oz Intake & Output 03/25/25 03/26/25 03/27/25 03/28/25 23:59 23:59 23:59 23:59 Intake Total 120 / 564 1744 / 1744 1600 / 1600 425 / 425 Output Total 550 / 550 950 / 950 200 / 200 400 / 400 Balance -430 / 14 794 / 794 1400 / 1400 Weight 132 lb 142 lb 8 oz 140 lb 6 oz 143 lb 12.8 oz Constitutional: Present moderate distress Head: Present normocephalic and atraumatic ENT: Present normal exam, normal oropharynx and mucous membranes moist Neck: Present normal inspection and full ROM Respiratory: Present respiratory distress, rhonchi, diminished air movement and able to speak in complete sentences; Absent prolonged expiratory phase Cardiac: Present S1/S2, Tachycardia and radial pulses present GI: Present soft and distention; Absent tenderness or guarding Rectal (female): Present deferred (female): Present deferred Skin: Present intact; Absent cyanosis or jaundice Neuro: Present alert and awake Extremities: Present normal inspection; Absent clubbing or cyanosis Psychiatric: Present unable to assess Assessment and Plan *Assessment and plan (1) Acute respiratory failure with hypoxia: Status: Acute Category: Medical Code(s): J96.01 - Acute respiratory failure with hypoxia (2) Pneumonia: Status: Acute Category: Medical Code(s): J18.9 - Pneumonia, unspecified organism Plan Ms. Mallory is a 89-year-old never smoker, [place] [facility] resident presented today with worsening respiratory distress progressive weakness A-fib RVR viral pneumonia heart failure exacerbation found to have worsening res piratory distress and left lower lobe consolidative changes and pulmonary was called for further evaluation and management. Patient last seen in pulmonary clinic June 2024 for large right-sided pleural effusion and large volume ascites status post paracentesis with a negative cytopathology for malignancy. Low-grade fevers upon admission. Neutrophilic predominant leukocytosis improving Patient being managed for COPD exacerbation with nebulization therapies and steroids. CTA December 2024 no significant emphysematous changes noted. Large right pleural effusion noted. CT Abdomen, dense LLL consolidation. Viral PCR entero/Rhino positive. No significant effusions noted on this admission on CT abdomen. Currently receiving cefepime initiated on 03/27/25 and prednisone. Patient remained afebrile with stable oxygen requirements throughout her hospital admission. Interval update: No acute respiratory events overnight. No evidence of leukocytosis. Improving oxygen requirements, weaned to room air Continue to receive cefepime and Doxycycline Chest x-ray from this morning relatively stable with no significant worsening. Given patient's clinical significant oxygen, the plan was made to wean her antibiotics levofloxacin to complete a total of 7-day course. Patient will also need to continue incentive spirometer and flutter valve for sputum clearance. Plan: Antibiotics can be weaned to levofloxacin to complete a total of 7-day course. Obtain sputum sample, follow-up with cultures Continue Xopenex and ipratropium 3 times daily along with Mucomyst 3 times daily along with incentive spirometry and flutter Discontinue prednisone # Thank you for involving pulmonary in this patient care will follow patient in pulmonary clinic 1 to 2 weeks postdischarge with chest x-ray PA lateral prior to clinic
--- NOTE | 2025-03-29 09:59 | XR_ITS ---
FINAL REPORT CLINICAL HISTORY: LLL Pneumonia COMPARISON: 03/27/2025 FINDINGS: There is abnormal opacification in the left lower lobe suspicious for pneumonia. This is minimally improved since prior. The right lung is clear. Left-sided pacer is identified. Minimal left effusion is noted. There is no pneumothorax. Mediastinum is unremarkable. Heart size is normal. IMPRESSION: Mild improvement in the left basilar pneumonia. Reviewed, Interpreted and Dictated by Alessandro Burrell MD Transcribed by Neda Francisco Authenticated and [facility]
[2025-03-29] MEDS: METOPROLOL TARTRATE 5MG/5ML VIAL 5 MG IV (13:02)
[2025-03-29] MEDS: CEFEPIME HCL 2 GM in 0.9 % SODIUM CHLORIDE 100 ML IV (16:39)
--- NOTE | 2025-03-29 17:20 | PC.NURSE ---
PT IS RESTING IN BED. ALERT AND ORIENTED X3. EATING AN DRINKING FAIR. O2 SATURATION HAS MAINTAINED 90-95% ON RA THIS AFTERNOON. MEDICATED PER DEC FOR BACK DISCOMFORT. LUNG SOUNDS DIMINISHED WITH SCATTERED RHONCHI. ABDOMEN FIRM/NON TENDER WITH ACTIVE BOWEL SOUNDS. LARGE BOWEL MOVEMENT THIS SHIFT. SKIN TEARS NOTED TO BFA. SCATTERED BRUISING NOTED TO ABDOMEN AND BUE. AFIB ON TELEMETRY WITH HR MAINTAINING 110-125. PT TOLERATED SITTING UP IN THE CHAIR FOR 1 HOUR THIS SHIFT. WILL CONTINUE TO MONITOR.
--- NOTE | 2025-03-29 19:47 | P.PN_ITS ---
Subjective *Date: 03/29/25 *Time: 22:05 Interval history: Quite weak today. Tolerating wean of oxygen. On room air by the time of my evaluation today. Family at bedside concerned about patient's weakness. Showing some improvement. Poor p.o. intake today. No nausea or vomiting. Feels quite fatigued. Afebrile. Medical Exam Vital signs and Labs for Last 24 Hours: Vital Signs Temp Pulse Pulse Resp BP Pulse Ox O2 Del Method 03/29/25 18:30 Room Air 03/29/25 16:46 Room Air 03/29/25 16:00 102 H 03/29/25 15:00 Room Air 03/29/25 13:33 105 H 16 03/29/25 13:32 105 H 03/29/25 13:32 110 H 03/29/25 13:00 Nasal Cannula 03/29/25 12:00 90 03/29/25 12:00 97.7 F 115 H 18 116/77 95 Room Air 03/29/25 10:38 Nasal Cannula 03/29/25 08:00 110 H 03/29/25 08:00 Nasal Cannula 03/29/25 08:00 98.1 F 18 122/78 96 Room Air 03/29/25 07:35 Nasal Cannula 03/29/25 07:35 Nasal Cannula 03/29/25 06:42 Nasal Cannula 03/29/25 06:04 115 H 03/29/25 06:04 115 H 14 03/29/25 06:04 115 H 03/29/25 06:04 96 Nasal Cannula 03/29/25 05:00 Nasal Cannula 03/29/25 04:00 97.8 F 70 20 101/53 L 93 L Nasal Cannula 03/29/25 04:00 100 H 03/29/25 03:00 Nasal Cannula 03/29/25 01:00 Nasal Cannula 03/29/25 00:00 100 H 03/29/25 00:00 98.4 F 118 H 20 112/79 94 L Nasal Cannula 03/28/25 23:00 Nasal Cannula 03/28/25 21:00 Nasal Cannula 03/28/25 20:00 120 H 03/28/25 20:00 Nasal Cannula 03/28/25 19:58 97.9 F 120 H 22 98/68 L 99 Nasal Cannula O2 Flow Rate 03/29/25 18:30 03/29/25 16:46 03/29/25 16:00 03/29/25 15:00 03/29/25 13:33 03/29/25 13:32 03/29/25 13:32 03/29/25 13:00 1 03/29/25 12:00 03/29/25 12:00 03/29/25 10:38 1 03/29/25 08:00 03/29/25 08:00 1 03/29/25 08:00 1 03/29/25 07:35 1 03/29/25 07:35 1 03/29/25 06:42 1 03/29/25 06:04 03/29/25 06:04 03/29/25 06:04 03/29/25 06:04 2 03/29/25 05:00 2 03/29/25 04:00 03/29/25 04:00 03/29/25 03:00 2 03/29/25 01:00 2 03/29/25 00:00 03/29/25 00:00 2 03/28/25 23:00 2 03/28/25 21:00 2 03/28/25 20:00 03/28/25 20:00 2 03/28/25 19:58 2 Intake and Output 03/29/25 03/29/25 03/29/25 07:59 15:59 23:59 Intake Total 50 / 655 270 / 655 335 / 655 Output Total 200 / 650 450 / 650 Balance -150 / 5 270 / 5 -115 / 5 Intake: Intake, Oral Amount 270 / 510 240 / 510 Intake, Total IV Amount 50 / 145 95 / 145 Cefepime HCl 2 gm In 0.9 % 50 / 145 95 / 145 Sodium Chloride 100 ml @ 200 mls/hr IV Q24H [facility] Rx#:[id number] Output: Output, Urine Amount 200 / 650 450 / 650 Other: Number of Unmeasured Voids 0 0 Number of Bowel Movements 1 Weight 63.231 kg Patient Weight 03/29/25 23:59 Weight 63.231 kg Laboratory Results - last 24 hr 03/28/25 20:13: POC Glucose 359 H* 03/29/25 06:15: WBC 7.8, RBC 3.25 L, Hgb 9.2 L, Hct 27.6 L, MCV 84.9, MCH 28.3, MCHC 33.3, RDW 16.9, Plt Count 128 L, MPV 11.0 H, Neut % (Auto) 81.5 H, Lymph % (Auto) 7.1 L, [place] % (Auto) 10.0 H, Eos % (Auto) 0.0 L, Baso % (Auto) 0.1, Neut # (Auto) 6.3, Lymph # (Auto) 0.6 L, [place] # (Auto) 0.8, Eos # (Auto) 0.0, Baso # (Auto) 0.0, Sodium 130 L, Potassium 4.9, Chloride 92 L, Carbon Dioxide 25, Anion Gap 17.9 H, BUN 88 H, Creatinine 1.40 H, Estimated Creat Clear 28, Estimated GFR 36 L, Est GFR ( Amer) 43 L, Glucose 212 H, POC Glucose 219 H, Calcium 9.4, Magnesium 2.0, Total Bilirubin 1.3, AST 43 H D, ALT 18, Alkaline Phosphatase 131 H, Total Protein 6.9, Albumin 3.7, Globulin 3.2, Albumin/Globulin Ratio 1.2 I & O for Labs for Last 24 Hours: Intake & Output 03/26/25 03/27/25 03/28/25 03/29/25 23:59 23:59 23:59 23:59 Intake Total 1744 / 1744 1600 / 1600 1035 / 1085 655 / 655 Output Total 950 / 950 200 / 200 1300 / 1300 650 / 650 Balance 794 / 794 1400 / 1400 -265 / -215 Weight 64.637 kg 63.673 kg 65 kg 63.231 kg Microbiology Reports for the Last 24 Hours: Microbiology 03/29/25 11:55 Sputum - Expectorated Sputum Gram Stain - Final Constitutional: Present no acute distress, average body habitus, chronically ill appearing and cooperative Comment:: Fatigued but interactive Head: Present atraumatic and normocephalic ENT: Present normal exam Neck: Present normal inspection Respiratory: Present crackles (Improving) and normal respiratory effort; Absent prolonged expiratory phase, rhonchi or wheezes Cardiac: Present Tachycardia Comment:: Irregularly irregular GI: Present soft and normal bowel sounds; Absent distention or tenderness Extremities: Present normal inspection and full ROM; Absent edema Skin: Present intact; Absent erythema Neuro: Present Grossly Intact, alert, awake, oriented x 3 and moves all extremities Comment:: Vision impaired Assessment and Plan *Assessment and plan (1) Acute respiratory failure with hypoxia: Status: Acute Category: Medical Code(s): J96.01 - Acute respiratory failure with hypoxia (2) Rhinovirus infection: Status: Acute Category: Medical Code(s): B34.8 - Other viral infections of unspecified site (3) Pneumonia: Status: Acute Category: Medical Code(s): J18.9 - Pneumonia, unspecified organism (4) Diabetes mellitus, type 2: Status: Acute Qualifiers: Diabetes mellitus intermediate insulin use: with technician terminal and repeater use Diabetes mellitus complication status: with circulatory complication Diabetes mellitus complication detail: with other circulatory complications Qualified Code(s): E11.59 - Type 2 diabetes mellitus with other circulatory complications; Z79.4 - technician terminal and repeater (current) use of insulin Category: Medical Code(s): E11.9 - Type 2 diabetes mellitus without complications (5) Atrial fibrillation: Status: Acute Qualifiers: Atrial fibrillation type: unspecified chronic Qualified Code(s): I48.20 - Chronic atrial fibrillation, unspecified Category: Medical Code(s): I48.91 - Unspecified atrial fibrillation Plan Kareen Mallory is an 89-year-old female who presented from [facility] for progressive weakness. On route EMS found her to be in A-fib RVR and was given IV diltiazem 20 mg with improvement in heart rate. Also found to have respiratory failure with hypoxia secondary to rhinovirus. Showing slow improvement. Continue to require inpatient management. Anticipate discharge tomorrow. Problems addressed as follows: #Sepsis #Left lower lobe community-acquired pneumonia #COPD exacerbation #Rhinovirus #Weakness ? Patient and family complained of worsening productive cough over the past week, positive for rhinovirus on respiratory panel. ? Continue Cefepime 2 g IV daily and doxycycline 100 mg IV twice daily ? Continue steroids. Awaiting sputum culture results. - Discussed case with pulmonology, recommend no steroids as patient does not have clear history of COPD. Continue antibiotics as above. Will complete empiric course pending sputum cultures. - White count normal 7.8, weaned to room air. #THANH on CKD stage III #Uremia ? Initial creatinine 1.5, bumped to 1.8. BUN 91; BUN 88, creatinine 1.4. Potassium 4.9 with magnesium 2.0. -Repeat CBC, CMP, magnesium ordered for the morning - Continue oral hydration, holding on IV fluids #HFpEF #A-fib ? Holding home Lasix 40 mg twice daily, spironolactone 50 mg, metolazone 5 mg as there is suspicion of depletion. ? Continue metoprolol titrate 25 mg twice daily, Xarelto 15 mg. #SUMMERS cirrhosis ? Hold Lasix, spironolactone, lactulose as above. Stable at this time. ? Ammonia normal. #CAD with stents ? Continue Plavix, statin. #Hypothyroidism ? Continue home levothyroxine. TFTs normal. #Anxiety/depression ? Continue home sertraline. Full code DVT prophylaxis: On Xarelto
[2025-03-29] MEDS: PANTOPRAZOLE 40MG TABLET 40 MG PO (20:28)
[2025-03-29] MEDS: RIVAROXABAN 15MG TABLET 15 MG PO (20:29)
[2025-03-29] MEDS: ATORVASTATIN 40MG TABLET 40 MG PO (20:29)
[2025-03-29] MEDS: METOPROLOL TARTRATE 50MG TABLET 100 MG PO (20:30)
[2025-03-30] VITALS: BP 103/60; PULSE 100; PULSE 112; RESP 20; TEMP 36.5; O2SAT 96
[2025-03-30] MEDS: GUAIFENESIN/DEXTROMETHORPHAN 200MG/20MG 10ML UDC 10 ML PO (00:14)
[2025-03-30 00:26] LABS: POC Glucose,Bedside 228 (70-110)
[2025-03-30] MEDS: METOCLOPRAMIDE HCL 10MG/2ML VIAL 10 MG IVP ×2 (02:00→09:06)
[2025-03-30 04:00] VITALS: BP 94/58; PULSE 90; PULSE 92; RESP 18; TEMP 36.4; O2SAT 99; BMI 26.6
[2025-03-30] MEDS: LEVALBUTEROL 1.25MG/3ML NEB 1.25 MG IH ×2 (06:04→13:32)
[2025-03-30] MEDS: IPRATROPIUM BROMIDE 0.5 MG/2.5ML SOLUTION IH ×2 (06:05→13:32)
[2025-03-30] MEDS: ACETYLCYSTEINE 20% 4ML VIAL 1 ML IH ×2 (06:05→13:32)
[2025-03-30 06:12] VITALS: PULSE 118; PULSE 94; RESP 16; O2SAT 94
[2025-03-30 06:55] LABS: Albumin Level 3.5 g/dl (3.5-5.0); Basophils % 0.2 % (0.1-2.0); Chloride 95 mmol/L (98-107); Eosinophils % 0.3 % (0.1-12.0); Hematocrit 28.5 % (37.0-47.0); Hemoglobin 9.5 g/dL (12.2-16.2); Immature Granulocytes # 0.24 10^3uL; Immature Granulocytes % 2.3 %; Lymphocytes # 0.7 K/mm3 (0.7-4.5); Lymphocytes % 6.5 % (10-50); Mean Corpuscular HGB Conc 33.3 g/dL (31.8-35.4); Mean Corpuscular Hemoglobin 28.7 pg (27.0-31.2); Mean Corpuscular Volume 86.1 fl (81-99); Mean Platelet Volume 11.3 fl (7.4-10.4); Monocytes # 1.1 K/mm3 (0.1-1.0); Monocytes % 10.2 % (1.7-9.3); Neutrophils # 8.5 K/mm3 (1.8-7.8); Neutrophils % 80.5 % (37.0-80.0); Nucleated Red Blood Cells # 0.03 10^3/uL; Nucleated Red Blood Cells % 0.3 %; Platelet Count 141 K/mm3 (142-424); Red Blood Count 3.31 M/mm3 (4.20-5.40); Red Cell Distribution Width 17.2 % (11.5-17.5); Red Cell Distribution Width-SD 54.9 fL; White Blood Count 10.6 K/mm3 (4.8-10.8)
[2025-03-30 06:56] LABS: Sodium 131 mmol/L (136-145)
[2025-03-30 06:58] LABS: Alanine Aminotransferase 17 U/L (12-78); Aspartate Amino Transferase 42 U/L (14-36); Carbon Dioxide 22 mmol/L (22.0-30.0); Creatinine Clearance Estimated 31 mL/min (50-200); Estimated Glomerular Filt Rate 36 ml/min (>60); GFR (African American) 43 ML/MIN (>60)
[2025-03-30 06:59] LABS: Albumin/Globulin Ratio 1.1 (1.1-1.8); Alkaline Phosphatase 156 U/L (38-126); Bilirubin,Total 1.5 mg/dl (0.2-1.3); Calcium 9.1 mg/dl (8.4-10.2); Globulin 3.1 g/dL (1.3-3.2); Glucose 123 mg/dl (74-100); Total Protein,Serum 6.6 g/dl (6.3-8.2)
[2025-03-30 07:08] LABS: POC Glucose,Bedside 139 (70-110)
[2025-03-30 07:12] LABS: Blood Urea Nitrogen 89 mg/dl (7-17)
--- NOTE | 2025-03-30 07:32 | EXP.PHA.PN ---
Subjective *Date: 03/30/25 *Time: 07:32 Medical Exam Vital signs and Labs for Last 24 Hours: Vital Signs Temp Pulse Pulse Resp BP Pulse Ox O2 Del Method 03/30/25 06:12 94 H 03/30/25 06:12 118 H 16 03/30/25 06:12 118 H 03/30/25 06:12 94 L Room Air 03/30/25 05:00 Room Air 03/30/25 04:00 90 03/30/25 04:00 97.6 F 92 H 18 94/58 L 99 Nasal Cannula 03/30/25 03:00 Nasal Cannula 03/30/25 01:00 Nasal Cannula 03/30/25 00:00 97.7 F 112 H 20 103/60 L 96 Nasal Cannula 03/30/25 00:00 100 H 03/29/25 23:00 Nasal Cannula 03/29/25 21:00 Nasal Cannula 03/29/25 20:00 Nasal Cannula 03/29/25 20:00 110 H 03/29/25 20:00 98.4 F 105 H 20 106/74 L 100 Nasal Cannula 03/29/25 19:54 93 L Nasal Cannula 03/29/25 19:54 116 H 03/29/25 19:54 116 H 22 03/29/25 19:54 120 H 03/29/25 18:30 Room Air 03/29/25 16:46 Room Air 03/29/25 16:00 102 H 03/29/25 15:00 Room Air 03/29/25 13:33 105 H 16 03/29/25 13:32 105 H 03/29/25 13:32 110 H 03/29/25 13:00 Nasal Cannula 03/29/25 12:00 90 03/29/25 12:00 97.7 F 115 H 18 116/77 95 Room Air 03/29/25 10:38 Nasal Cannula 03/29/25 08:00 110 H 03/29/25 08:00 Nasal Cannula 03/29/25 08:00 98.1 F 18 122/78 96 Room Air 03/29/25 07:35 Nasal Cannula 03/29/25 07:35 Nasal Cannula O2 Flow Rate 03/30/25 06:12 03/30/25 06:12 03/30/25 06:12 03/30/25 06:12 03/30/25 05:00 03/30/25 04:00 03/30/25 04:00 1 03/30/25 03:00 1 03/30/25 01:00 1 03/30/25 00:00 1 03/30/25 00:00 03/29/25 23:00 1 03/29/25 21:00 1 03/29/25 20:00 1 03/29/25 20:00 03/29/25 20:00 1 03/29/25 19:54 1 03/29/25 19:54 03/29/25 19:54 03/29/25 19:54 03/29/25 18:30 03/29/25 16:46 03/29/25 16:00 03/29/25 15:00 03/29/25 13:33 03/29/25 13:32 03/29/25 13:32 03/29/25 13:00 1 03/29/25 12:00 03/29/25 12:00 03/29/25 10:38 1 03/29/25 08:00 03/29/25 08:00 1 03/29/25 08:00 1 03/29/25 07:35 1 03/29/25 07:35 1 Intake and Output 03/29/25 03/29/25 03/30/25 15:59 23:59 07:59 Intake Total 270 / 895 335 / 895 240 / 240 Output Total 750 / 950 150 / 150 Balance 270 / -55 -415 / -55 90 / 90 Intake: Intake, Oral Amount 270 / 750 240 / 750 240 / 240 Intake, Total IV Amount 95 / 145 Cefepime HCl 2 gm In 0.9 % 95 / 145 Sodium Chloride 100 ml @ 200 mls/hr IV Q24H [facility] Rx#:[id number] Output: Output, Urine Amount 750 / 950 150 / 150 Other: Number of Unmeasured Voids 0 0 Number of Bowel Movements 1 Weight 68.356 kg Patient Weight 03/30/25 23:59 Weight 68.356 kg Laboratory Results - last 24 hr 03/29/25 06:15: WBC 7.8, RBC 3.25 L, Hgb 9.2 L, Hct 27.6 L, MCV 84.9, MCH 28.3, MCHC 33.3, RDW 16.9, Plt Count 128 L, MPV 11.0 H, Neut % (Auto) 81.5 H, Lymph % (Auto) 7.1 L, [place] % (Auto) 10.0 H, Eos % (Auto) 0.0 L, Baso % (Auto) 0.1, Neut # (Auto) 6.3, Lymph # (Auto) 0.6 L, [place] # (Auto) 0.8, Eos # (Auto) 0.0, Baso # (Auto) 0.0, Sodium 130 L, Potassium 4.9, Chloride 92 L, Carbon Dioxide 25, Anion Gap 17.9 H, BUN 88 H, Creatinine 1.40 H, Estimated Creat Clear 28, Estimated GFR 36 L, Est GFR ( Amer) 43 L, Glucose 212 H, Calcium 9.4, Magnesium 2.0, Total Bilirubin 1.3, AST 43 H D, ALT 18, Alkaline Phosphatase 131 H, Total Protein 6.9, Albumin 3.7, Globulin 3.2, Albumin/Globulin Ratio 1.2 03/29/25 20:25: POC Glucose 228 H 03/30/25 06:17: WBC 10.6 D, RBC 3.31 L, Hgb 9.5 L, Hct 28.5 L, MCV 86.1, MCH 28.7, MCHC 33.3, RDW 17.2, Plt Count 141 L, MPV 11.3 H, Neut % (Auto) 80.5 H, Lymph % (Auto) 6.5 L, [place] % (Auto) 10.2 H, Eos % (Auto) 0.3, Baso % (Auto) 0.2, Neut # (Auto) 8.5 H, Lymph # (Auto) 0.7, [place] # (Auto) 1.1 H, Eos # (Auto) 0.0, Baso # (Auto) 0.0, Sodium 131 L, Potassium 5.0, Chloride 95 L, Carbon Dioxide 22, Anion Gap 19.0 H, BUN 89 H, Creatinine 1.40 H, Estimated Creat Clear 31, Estimated GFR 36 L, Est GFR ( Amer) 43 L, Glucose 123 H, Calcium 9.1, Magnesium 2.0, Total Bilirubin 1.5 H, AST 42 H, ALT 17, Alkaline Phosphatase 156 H, Total Protein 6.6, Albumin 3.5, Globulin 3.1, Albumin/Globulin Ratio 1.1 03/30/25 06:56: POC Glucose 139 H I & O for Labs for Last 24 Hours: Intake & Output 03/27/25 03/28/25 03/29/25 03/30/25 23:59 23:59 23:59 23:59 Intake Total 1600 / 1600 1035 / 1085 655 / 895 240 / 240 Output Total 200 / 200 1300 / 1300 950 / 950 150 / 150 Balance 1400 / 1400 -265 / -215 -295 / -55 90 / 90 Weight 63.673 kg 65 kg 63.231 kg 68.356 kg Microbiology Reports for the Last 24 Hours: Microbiology 03/29/25 11:55 Sputum - Expectorated Sputum Gram Stain - Final The patient's infection will respond to the chosen ABx?: Yes (sputum pending, afebrile over 24 hr, white count 10.6) Is the patient receiving the right drug, dose, and route?: Yes Could a more targeted ABx be ordered?: No How long ABx needed (days)?: 7 (sepsis/pneumonia)
[2025-03-30 07:57] VITALS: BP 104/53; PULSE 120; RESP 15; TEMP 36.6; O2SAT 98
[2025-03-30 08:14] LABS: POC Glucose,Bedside 236 (70-110)
[2025-03-30 08:14] LABS: POC Glucose,Bedside 183 (70-110)
[2025-03-30 08:17] LABS: POC Glucose,Bedside 407 (70-110)
[2025-03-30 08:18] LABS: POC Glucose,Bedside 194 (70-110)
[2025-03-30 08:19] LABS: POC Glucose,Bedside 298 (70-110)
[2025-03-30 08:19] LABS: POC Glucose,Bedside 206 (70-110)
[2025-03-30 08:21] LABS: POC Glucose,Bedside 275 (70-110)
[2025-03-30] MEDS: CEFEPIME HCL 2 GM in 0.9 % SODIUM CHLORIDE 100 ML IV (08:53)
[2025-03-30] MEDS: LEVOTHYROXINE 50MCG (0.05MG) TAB 50 MCG PO (08:54)
[2025-03-30] MEDS: SERTRALINE 100MG TABLET 100 MG PO (08:54)
[2025-03-30] MEDS: CLOPIDOGREL 75MG TAB 75 MG PO (08:54)
[2025-03-30] MEDS: DOXYCYCLINE HYCL 100 MG TABLET PO (08:54)
[2025-03-30] MEDS: METOPROLOL TARTRATE 50MG TABLET 100 MG PO (08:55)
[2025-03-30] MEDS: INSULIN GLARGINE 100 UNITS/ML 3ML FLEXPEN 15 UNIT SUBCUT (08:56)
[2025-03-30] MEDS: LACTULOSE 20GM/30ML UDC 10 GM PO (09:00)
[2025-03-30] MEDS: APAP/HYDROCODONE 325MG/7.5MG TAB 1 TAB PO (09:05)
[2025-03-30] MEDS: POLYETHYLENE GLYCOL 3350 17 GM PACKET PO (09:08)
[2025-03-30 09:19] LABS: POC Glucose,Bedside 205 (70-110)
--- NOTE | 2025-03-30 09:24 | P.PN_ITS ---
Subjective *Date: 03/30/25 *Time: 12:05 Interval history: No acute respiratory events overnight. Pulmonology Exam Inpatient Vital signs and Labs for Last 24 Hours: Temp Pulse Resp BP Pulse Ox O2 Del Method O2 Flow Rate 98 F 120 H 15 104/53 L 98 Nasal Cannula 1 03/30/25 07:57 03/30/25 07:57 03/30/25 07:57 03/30/25 07:57 03/30/25 07:57 03/30/25 07:57 03/30/25 04:00 FiO2 28 03/25/25 23:03 Laboratory Results - last 24 hr 03/25/25 16:22: POC Glucose 275 H 03/27/25 16:43: POC Glucose 206 H 03/27/25 19:56: POC Glucose 298 H 03/28/25 11:26: POC Glucose 194 H 03/28/25 16:27: POC Glucose 407 H* 03/29/25 11:42: POC Glucose 183 H 03/29/25 16:42: POC Glucose 236 H 03/29/25 20:25: POC Glucose 228 H 03/30/25 06:17: WBC 10.6 D, RBC 3.31 L, Hgb 9.5 L, Hct 28.5 L, MCV 86.1, MCH 28.7, MCHC 33.3, RDW 17.2, Plt Count 141 L, MPV 11.3 H, Neut % (Auto) 80.5 H, Lymph % (Auto) 6.5 L, [place] % (Auto) 10.2 H, Eos % (Auto) 0.3, Baso % (Auto) 0.2, Neut # (Auto) 8.5 H, Lymph # (Auto) 0.7, [place] # (Auto) 1.1 H, Eos # (Auto) 0.0, Baso # (Auto) 0.0, Sodium 131 L, Potassium 5.0, Chloride 95 L, Carbon Dioxide 22, Anion Gap 19.0 H, BUN 89 H, Creatinine 1.40 H, Estimated Creat Clear 31, Estimated GFR 36 L, Est GFR ( Amer) 43 L, Glucose 123 H, Calcium 9.1, Magnesium 2.0, Total Bilirubin 1.5 H, AST 42 H, ALT 17, Alkaline Phosphatase 156 H, Total Protein 6.6, Albumin 3.5, Globulin 3.1, Albumin/Globulin Ratio 1.1 03/30/25 06:56: POC Glucose 139 H 03/30/25 08:49: POC Glucose 205 H Temp Pulse Resp BP Pulse Ox O2 Del Method O2 Flow Rate 98.3 F 87 20 104/71 L 98 Nasal Cannula 1 03/28/25 07:38 03/28/25 09:17 03/28/25 07:38 03/28/25 07:38 03/28/25 07:38 03/28/25 07:38 03/28/25 07:38 FiO2 28 03/25/25 23:03 Laboratory Results - last 24 hr 03/27/25 11:09: POC Glucose 323 H* 03/27/25 18:12: Sodium 124 L, Potassium 4.7, Chloride 87 L, Carbon Dioxide 27, Anion Gap 14.7, BUN 91 H, Creatinine 1.80 H, Estimated Creat Clear 22, Estimated GFR 27 L, Est GFR ( Amer) 32 L, Glucose 271 H, Calcium 9.6 03/28/25 00:55: Sodium 125 L, Potassium 4.2, Chloride 88 L, Carbon Dioxide 26, Anion Gap 15.2 H, BUN 86 H, Creatinine 1.70 H, Estimated Creat Clear 23, Estimated GFR 28 L, Est GFR ( Amer) 34 L, Glucose 214 H D, Calcium 9.6 03/28/25 05:55: WBC 8.0, RBC 3.28 L, Hgb 9.0 L, Hct 28.5 L, MCV 86.9, MCH 27.4, MCHC 31.6 L, RDW 16.7, Plt Count 108 L, MPV 10.4, Neut % (Auto) 84.7 H, Lymph % (Auto) 7.5 L, [place] % (Auto) 7.1, Eos % (Auto) 0.0 L, Baso % (Auto) 0.2, Neut # (Auto) 6.8, Lymph # (Auto) 0.6 L, [place] # (Auto) 0.6, Eos # (Auto) 0.0, Baso # (Auto) 0.0, Sodium 128 L, Potassium 5.7 H D, Chloride 91 L, Carbon Dioxide 25, Anion Gap 17.7 H, BUN 88 H, Creatinine 1.50 H, Estimated Creat Clear 27, Estimated GFR 33 L, Est GFR ( Amer) 40 L, Glucose 157 H D, Calcium 9.0, Magnesium 1.9, Total Bilirubin 1.5 H, AST 66 H D, ALT 18 D, Alkaline Phosphatase 94, Total Protein 7.0, Albumin 3.4 L, Globulin 3.6 H, Albumin/Globulin Ratio 0.9 L 03/28/25 06:00: POC Glucose 181 H I & O for Labs for Last 24 Hours: Intake & Output 03/27/25 03/28/25 03/29/25 03/30/25 23:59 23:59 23:59 23:59 Intake Total 1600 / 1600 1035 / 1085 655 / 895 240 / 240 Output Total 200 / 200 1300 / 1300 950 / 950 150 / 150 Balance 1400 / 1400 -265 / -215 -295 / -55 90 / 90 Weight 140 lb 6 oz 143 lb 4.807 oz 139 lb 6.4 oz 150 lb 11.2 oz Intake & Output 03/25/25 03/26/25 03/27/25 03/28/25 23:59 23:59 23:59 23:59 Intake Total 120 / 564 1744 / 1744 1600 / 1600 425 / 425 Output Total 550 / 550 950 / 950 200 / 200 400 / 400 Balance -430 / 14 794 / 794 1400 / 1400 Weight 132 lb 142 lb 8 oz 140 lb 6 oz 143 lb 12.8 oz Microbiology Reports for the Last 24 Hours: Microbiology 03/29/25 11:55 Sputum - Expectorated Sputum Gram Stain - Final Constitutional: Present moderate distress Head: Present normocephalic and atraumatic ENT: Present normal exam, normal oropharynx and mucous membranes moist Neck: Present normal inspection and full ROM Respiratory: Present respiratory distress, rhonchi, diminished air movement and able to speak in complete sentences; Absent prolonged expiratory phase Cardiac: Present S1/S2, Tachycardia and radial pulses present GI: Present soft and distention; Absent tenderness or guarding Rectal (female): Present deferred (female): Present deferred Skin: Present intact; Absent cyanosis or jaundice Neuro: Present alert and awake Extremities: Present normal inspection; Absent clubbing or cyanosis Psychiatric: Present unable to assess Assessment and Plan *Assessment and plan (1) Acute respiratory failure with hypoxia: Status: Acute Category: Medical Code(s): J96.01 - Acute respiratory failure with hypoxia (2) Pneumonia: Status: Acute Category: Medical Code(s): J18.9 - Pneumonia, unspecified organism Plan Ms. Mallory is a 89-year-old never smoker, [facility] resident presented today with worsening respiratory distress progressive weakness A-fib RVR viral pneumonia heart failure exacerbation found to have worsening r espiratory distress and left lower lobe consolidative changes and pulmonary was called for further evaluation and management. Patient last seen in pulmonary clinic June 2024 for large right-sided pleural effusion and large volume ascites status post paracentesis with a negative cytopathology for malignancy. Low-grade fevers upon admission. Neutrophilic predominant leukocytosis improving Patient being managed for COPD exacerbation with nebulization therapies and steroids. CTA December 2024 no significant emphysematous changes noted. Large right pleural effusion noted. CT Abdomen, dense LLL consolidation. Viral PCR entero/Rhino positive. No significant effusions noted on this admission on CT abdomen. Currently receiving cefepime initiated on 03/27/25 and prednisone. Patient remained afebrile with stable oxygen requirements throughout her hospital admission. Chest x-ray from 03/29/2025 relatively stable with no significant worsening. Given patient's clinical significant oxygen, the plan was made to wean her antibiotics levofloxacin to complete a total of 7-day course. Interval update: No acute respiratory vents overnight. Stable oxygen quadrants. Antibiotics weaned to levofloxacin from cefepime and doxycycline given patient's continued clinical improvement and stable oxygen requirements. Slight worsening leukocytosis from 7-10. Pulm sputum stain no organisms seen. Less than 10 WBC. afebrile. Hemodynamically stable. Plan: Continue levofloxacin to complete a total of 7-day course. Follow with final sputum culture results Activity as tolerated Continue Xopenex and ipratropium twice daily, Mucomyst twice daily along with incentive spirometry and flutter # Thank you for involving pulmonary in this patient care will follow patient in pulmonary clinic 1 to 2 weeks postdischarge with chest x-ray PA lateral prior to clinic
--- NOTE | 2025-03-30 10:20 | EXP.DC.SUM ---
General Admission date:: 03/25/25 Discharge date: 03/30/25 HPI HPI HPI: Kareen Mallory is an 89-year-old female with a medical history of HFpEF, Afib, COPD, SUMMERS cirrhosis, type 2 diabetes who presented from [facility] for progressive weakness. On route EMS found her to be in A-fib RVR and was given IV diltiazem 20 mg with improvement in heart rate. On my evaluation, patient appears weak. Daughters at bedside provided history. They states patient has been having productive cough for a few weeks, especially over the past week. Had been getting cough syrup at [facility] without much improving in symptoms. Report low grade fevers this past week. Works up in ED significant for global weakness, normal WBC. BNP elevated to 7000 with mild pitting edema. Requiring 3L, new requirement. CXR without acute findings. HR rate controlled. Case discussed with ED provder and decision was made to admit patient for functional decline, and further workup of hypoxic respiratory failure, possible HFpEF exacerbation. Hospital Course Hospital Course Hospital Course: Kareen Mallory is an 89-year-old female who presented from [facility] for progressive weakness. On route EMS found her to be in A-fib RVR and was given IV diltiazem 20 mg with improvement in heart rate. Also found to have respiratory failure with hypoxia secondary to rhinovirus. Showing slow improvement. Stable on room air for 24 hours. Will discharge back to [facility] for further management. Problems addressed as follows: #Sepsis #Left lower lobe community-acquired pneumonia #COPD exacerbation #Rhinovirus #Weakness ? Patient and family complained of worsening productive cough over the past week prior to admission. Found to be positive for rhinovirus on respiratory panel. Sputum culture obtained and still pending at discharge. Initiated on cefepime and doxycycline during admission. Will transition to Levaquin to complete 7 days of antibiotics. Pulmonology consulted during admission. Recommend continuing flutter valve. White count remained stable between 8 and 10. #THANH on CKD stage III #Uremia ? Initial creatinine 1.5, bumped to 1.8. BUN 91; has improved somewhat, creatinine 1.4, BUN 81. Continues to remain elevated. Electrolytes stable with potassium 5. Needs repeat labs in 1 week to monitor kidney function including CBC, CMP, magnesium #HFpEF #A-fib ? Holding home Lasix 40 mg twice daily, spironolactone 50 mg, metolazone 5 mg as there is suspicion of depletion. Continue metoprolol tartrate increased to 100 mg twice daily for improved rate control. Xarelto 15 mg. #SUMMERS cirrhosis: Hold Lasix, spironolactone, lactulose as above. Stable at this time. Ammonia normal. Recommend using spironolactone as needed if develops lower extremity edema. #CAD with stents: Continue Plavix, statin. #Hypothyroidism: Continue home levothyroxine. TFTs normal. #Anxiety/depression: Continue home sertraline. Total time spent on discharge 32 minutes in counseling, documentation, chart review, and direct care with patient. Exam Data for Last 24 hours Vital signs and Labs for Last 24 Hours: Temp Pulse Resp BP Pulse Ox O2 Del Method O2 Flow Rate 98 F 120 H 15 104/53 L 98 Nasal Cannula 1 03/30/25 07:57 03/30/25 07:57 03/30/25 07:57 03/30/25 07:57 03/30/25 07:57 03/30/25 07:57 03/30/25 04:00 FiO2 28 03/25/25 23:03 Laboratory Results - last 24 hr 03/25/25 16:22: POC Glucose 275 H 03/27/25 16:43: POC Glucose 206 H 03/27/25 19:56: POC Glucose 298 H 03/28/25 11:26: POC Glucose 194 H 03/28/25 16:27: POC Glucose 407 H* 03/29/25 11:42: POC Glucose 183 H 03/29/25 16:42: POC Glucose 236 H 03/29/25 20:25: POC Glucose 228 H 03/30/25 06:17: WBC 10.6 D, RBC 3.31 L, Hgb 9.5 L, Hct 28.5 L, MCV 86.1, MCH 28.7, MCHC 33.3, RDW 17.2, Plt Count 141 L, MPV 11.3 H, Neut % (Auto) 80.5 H, Lymph % (Auto) 6.5 L, [place] % (Auto) 10.2 H, Eos % (Auto) 0.3, Baso % (Auto) 0.2, Neut # (Auto) 8.5 H, Lymph # (Auto) 0.7, [place] # (Auto) 1.1 H, Eos # (Auto) 0.0, Baso # (Auto) 0.0, Sodium 131 L, Potassium 5.0, Chloride 95 L, Carbon Dioxide 22, Anion Gap 19.0 H, BUN 89 H, Creatinine 1.40 H, Estimated Creat Clear 31, Estimated GFR 36 L, Est GFR ( Amer) 43 L, Glucose 123 H, Calcium 9.1, Magnesium 2.0, Total Bilirubin 1.5 H, AST 42 H, ALT 17, Alkaline Phosphatase 156 H, Total Protein 6.6, Albumin 3.5, Globulin 3.1, Albumin/Globulin Ratio 1.1 03/30/25 06:56: POC Glucose 139 H 03/30/25 08:49: POC Glucose 205 H I & O for Last 24 hours: Intake & Output 03/27/25 03/28/25 03/29/25 03/30/25 23:59 23:59 23:59 23:59 Intake Total 1600 / 1600 1035 / 1085 655 / 895 480 / 480 Output Total 200 / 200 1300 / 1300 950 / 950 150 / 150 Balance 1400 / 1400 -265 / -215 -295 / -55 330 / 330 Weight 63.673 kg 65 kg 63.231 kg 68.356 kg Microbiology Reports for the Last 24 Hours: Microbiology 03/29/25 11:55 Sputum - Expectorated Sputum Gram Stain - Final Constitutional Constitutional: no acute distress, average body habitus, chronically ill appearing and cooperative Comments: Globally weak *Routine HEENT Exam Head: Present normocephalic Eye: Present EOMI and PERRL ENT: Present mucous membranes moist Comments: nystagmus *Routine Neck Exam Neck: Present supple; Absent lymphadenopathy *Routine Respiratory Exam Respiratory: Present CTA bilaterally and diminished air movement (in bases); Absent rhonchi, wheezes or crackles *Routine Cardiovascular Exam Cardiovascular: Present irregularly irregular *Routine Abdominal Exam Abdominal: Present soft, normoactive bowel sounds and distended (mild); Absent tenderness, rebound or guarding *Routine Rectal Exam Patient deferred: visual exam *Routine Exam Patient deferred: external exam *Routine Extremities Exam Extremities: Absent cyanosis, clubbing or edema *Routine Skin Exam Skin: Present intact and warm; Absent rash *Routine Neurological Exam Neurological: Present alert, oriented X3 and moving all extremities; Absent altered mental status Comments: visually impaired Results Data Completed and Pending Labs on day of discharge: Labs from last 24 hours 03/30/25 03/30/25 03/30/25 08:49 06:56 06:17 WBC 10.6 D RBC 3.31 L Hgb 9.5 L Hct 28.5 L MCV 86.1 MCH 28.7 MCHC 33.3 RDW 17.2 Plt Count 141 L MPV 11.3 H Neut % (Auto) 80.5 H Lymph % (Auto) 6.5 L [place] % (Auto) 10.2 H Eos % (Auto) 0.3 Baso % (Auto) 0.2 Neut # (Auto) 8.5 H Lymph # (Auto) 0.7 [place] # (Auto) 1.1 H Eos # (Auto) 0.0 Baso # (Auto) 0.0 Sodium 131 L Potassium 5.0 Chloride 95 L Carbon Dioxide 22 Anion Gap 19.0 H BUN 89 H Creatinine 1.40 H Estimated Creat Clear 31 Estimated GFR 36 L Est GFR ( Amer) 43 L Glucose 123 H POC Glucose 205 H 139 H Calcium 9.1 Magnesium 2.0 Total Bilirubin 1.5 H AST 42 H ALT 17 Alkaline Phosphatase 156 H Total Protein 6.6 Albumin 3.5 Globulin 3.1 Albumin/Globulin Ratio 1.1 03/29/25 03/29/25 03/29/25 20:25 16:42 11:42 WBC RBC Hgb Hct MCV MCH MCHC RDW Plt Count MPV Neut % (Auto) Lymph % (Auto) [place] % (Auto) Eos % (Auto) Baso % (Auto) Neut # (Auto) Lymph # (Auto) [place] # (Auto) Eos # (Auto) Baso # (Auto) Sodium Potassium Chloride Carbon Dioxide Anion Gap BUN Creatinine Estimated Creat Clear Estimated GFR Est GFR ( Amer) Glucose POC Glucose 228 H 236 H 183 H Calcium Magnesium Total Bilirubin AST ALT Alkaline Phosphatase Total Protein Albumin Globulin Albumin/Globulin Ratio 03/28/25 03/28/25 03/27/25 16:27 11:26 19:56 WBC RBC Hgb Hct MCV MCH MCHC RDW Plt Count MPV Neut % (Auto) Lymph % (Auto) [place] % (Auto) Eos % (Auto) Baso % (Auto) Neut # (Auto) Lymph # (Auto) [place] # (Auto) Eos # (Auto) Baso # (Auto) Sodium Potassium Chloride Carbon Dioxide Anion Gap BUN Creatinine Estimated Creat Clear Estimated GFR Est GFR ( Amer) Glucose POC Glucose 407 H* 194 H 298 H Calcium Magnesium Total Bilirubin AST ALT Alkaline Phosphatase Total Protein Albumin Globulin Albumin/Globulin Ratio 03/27/25 03/25/25 16:43 16:22 WBC RBC Hgb Hct MCV MCH MCHC RDW Plt Count MPV Neut % (Auto) Lymph % (Auto) [place] % (Auto) Eos % (Auto) Baso % (Auto) Neut # (Auto) Lymph # (Auto) [place] # (Auto) Eos # (Auto) Baso # (Auto) Sodium Potassium Chloride Carbon Dioxide Anion Gap BUN Creatinine Estimated Creat Clear Estimated GFR Est GFR ( Amer) Glucose POC Glucose 206 H 275 H Calcium Magnesium Total Bilirubin AST ALT Alkaline Phosphatase Total Protein Albumin Globulin Albumin/Globulin Ratio DS: Diagnosis Discharge Diagnosis (1) Acute respiratory failure with hypoxia: Status: Acute Code(s): J96.01 - Acute respiratory failure with hypoxia (2) Pneumonia: Status: Acute Code(s): J18.9 - Pneumonia, unspecified organism Meds Home Medications and Allergies Home Medications ?Medication ?Instructions ?Recorded ?Confirmed ?Type levothyroxine 50 mcg tablet 50 mcg PO DAILY 10/13/24 03/25/25 History mirabegron 25 mg tablet,extended 25 mg PO DAILY 10/13/24 03/25/25 History release 24 hr (Myrbetriq) omeprazole 40 mg capsule,delayed 40 mg PO DAILY 10/13/24 03/25/25 History release rivaroxaban 15 mg tablet (Xarelto) 15 mg PO HS 10/13/24 03/25/25 History sertraline 100 mg tablet 100 mg PO DAILY 10/13/24 03/25/25 History lactulose 20 gram/30 mL oral 10 g (15 mL) PO BID 30 days #900 mL 10/18/24 03/25/25 Rx solution polyethylene glycol 3350 17 17 g PO DAILY #510 grams 10/18/24 03/25/25 Rx gram/dose oral powder (Miralax) sodium bicarbonate 325 mg tablet 325 mg PO BID 30 days #60 tabs 10/18/24 03/25/25 Rx insulin glargine 100 unit/mL (3 15 unit (0.15 mL) SQ BID 60 days 11/14/24 03/26/25 Rx mL) subcutaneous pen (Lantus #18 mL Solostar U-100 Insulin) budesonide 160 mcg-glycopyr 9 2 inh inhalation BID #10.7 grams 01/16/25 03/25/25 Rx mcg-formot 4.8 mcg/actuation HFA inhaler (Breztri Aerosphere) clopidogrel 75 mg tablet 75 mg PO DAILY 01/17/25 03/25/25 History insulin lispro 100 unit/mL 0 sliding scale dose SQ TID 01/17/25 03/26/25 History subcutaneous pen (Humalog KwikPen (U-100) Insulin) lidocaine 4 % topical patch 1 patch topical DAILY 01/17/25 03/25/25 History (Lidocaine Pain Relief) mecobalamin (vitamin B12) 5,000 5,000 mcg PO DAILY 01/17/25 03/25/25 History mcg chewable tablet metolazone 5 mg tablet 5 mg PO DAILY 01/17/25 03/25/25 History Held on 03/30/25. Instructions: Consider resuming if patient develops edema spironolactone 25 mg tablet 50 mg (2 x 25 mg) PO DAILY 30 days 01/19/25 03/25/25 Rx Held on 03/30/25. #60 tabs Instructions: Resume if develops edema artificial 1 drp Eye-Left TID 02/27/25 03/25/25 History tears(qblbucz-lxgzgciy-ceqajfd) 0.1 %-0.3 %-0.2 % eye drops atorvastatin 40 mg tablet 40 mg PO HS 02/27/25 03/25/25 History ferrous gluconate 324 mg (38 mg 324 mg PO BID 02/27/25 03/25/25 History iron) tablet fluticasone propionate 50 1 spray intranasal DAILY 02/27/25 03/25/25 History mcg/actuation nasal spray,suspension furosemide 40 mg tablet (Lasix) 40 mg PO BID 02/27/25 03/25/25 History Held on 03/30/25. Instructions: Resume if develops edema guaifenesin 100 mg/5 mL oral 200 mg PO Q6 PRN Cough 02/27/25 03/25/25 History liquid (Daksha-Tussin) hydrocodone 7.5 mg-acetaminophen 1 tab PO QID PRN pain 02/27/25 03/25/25 History 325 mg tablet prochlorperazine maleate 5 mg 2.5 mg (1/2 x 5 mg) PO TID PRN 02/27/25 03/25/25 Rx tablet (Compazine) nausea and vomiting #30 tabs levalbuterol HCl 1.25 mg/3 mL 1.25 mg (3 mL) inhalation BID 30 03/30/25 Rx solution for nebulization days #180 mL levofloxacin 750 mg tablet 750 mg PO DAILY 1 day #1 tab 03/30/25 Rx metoclopramide HCl 5 mg tablet 5 mg PO AC 30 days #90 tabs 03/30/25 Rx metoprolol tartrate 50 mg tablet 50 mg PO BID 30 days #60 tabs 03/30/25 Rx New Prescriptions to Start Prescriptions: levalbuterol HCl Percy,Armando levofloxacin Percy,Armando metoclopramide HCl Percy,Armando metoprolol tartrate Percy,Armando Allergies Allergy/AdvReac Type Severity Reaction Status Date / Time methylprednisolone AdvReac Mild Elevated Verified 02/27/25 13:59 glucose Discharge Plan Disposition Patient Disposition: [facility] Condition: Fair Discharge Order Discharge Orders: Discharge Order (Routine); Ordered 03/30/25 Ordered By: Armando Gerer Follow up Plan Follow up with: Connie Bates MD [Physician, Pulmonology] - 04/09/25 1:00 pm Prescriptions/Medication Reconciliation: New levalbuterol HCl 1.25 mg/3 mL Solution For Nebulization 1.25 mg inhalation BID 30 Days Qty: 180 0RF metoclopramide HCl 5 mg tablet 5 mg PO AC 30 Days Qty: 90 0RF metoprolol tartrate 50 mg Tablet 50 mg PO BID 30 Days Qty: 60 0RF levofloxacin 750 mg tablet 750 mg PO DAILY 1 Days Qty: 1 0RF Rx Instructions: due 04/01/25 Continued atorvastatin 40 mg tablet 40 mg PO HS hydrocodone-acetaminophen 7.5-325 mg tablet 1 tab PO QID PRN (Reason: pain) fluticasone propionate 50 mcg/actuation spray,suspension 1 spray intranasal DAILY Rx Instructions: administer into each nostril artificial tear(ccyvj-xqo-xyl) 0.1-0.3-0.2 % drops 1 drp Eye-Left TID ferrous gluconate 324 mg (38 mg iron) tablet 324 mg PO BID guaifenesin [Daksha-Tussin] 100 mg/5 mL liquid 200 mg PO Q6 PRN (Reason: Cough) prochlorperazine maleate [Compazine] 5 mg tablet 2.5 mg PO TID PRN (Reason: nausea and vomiting) Qty: 30 0RF insulin glargine [Lantus Solostar U-100 Insulin] 100 unit/mL (3 mL) insulin pen 15 unit SQ BID 60 Days Qty: 18 4RF Breztri Aerosphere 160-9-4.8 mcg/actuation HFA aerosol inhaler 2 inh inhalation BID Qty: 10.7 2RF sertraline 100 mg tablet 100 mg PO DAILY Patient Comments: TAKE ONE TABLET BY MOUTH EVERY DAY omeprazole 40 mg capsule,delayed release(DR/EC) 40 mg PO DAILY Patient Comments: TAKE ONE CAPSULE BY MOUTH EVERY DAY levothyroxine 50 mcg tablet 50 mcg PO DAILY Xarelto 15 mg tablet 15 mg PO HS Patient Comments: TAKE ONE TABLET BY MOUTH EVERY NIGHT AT BEDTIME --TAKE WITH FOOD-- mirabegron [Myrbetriq] 25 mg tablet extended release 24 hr 25 mg PO DAILY Patient Comments: TAKE ONE TABLET BY MOUTH EVERY DAY FOR BLADDER lactulose 20 gram/30 mL Solution 10 g PO BID 30 Days Qty: 900 0RF polyethylene glycol 3350 [Miralax] 17 gram/dose powder 17 g PO DAILY Qty: 510 0RF sodium bicarbonate 325 mg tablet 325 mg PO BID 30 Days Qty: 60 0RF lidocaine [Lidocaine Pain Relief] 4 % Adhesive Patch,Medicated 1 patch TOPICAL DAILY clopidogrel 75 mg tablet 75 mg PO DAILY insulin lispro [Humalog KwikPen Insulin] 100 unit/mL insulin pen 0 sliding scale dose SQ TID mecobalamin (vitamin B12) 5,000 mcg tablet,chewable 5,000 mcg PO DAILY Held furosemide [Lasix] 40 mg tablet 40 mg PO BID Hold Instructions: Resume if develops edema metolazone 5 mg Tablet 5 mg PO DAILY Hold Instructions: Consider resuming if patient develops edema spironolactone 25 mg Tablet 50 mg PO DAILY 30 Days Qty: 60 0RF Hold Instructions: Resume if develops edema Discontinued metoprolol tartrate 25 mg tablet 25 mg PO BID potassium chloride 10 mEq capsule, extended release 20 meq PO DAILY Problem Reconciliation Problems Reviewed?: Yes Patient Discharge Instructions ACTIVITY: Continue current activity DIET: continue same diet Patient Instructions: DI for Atrial Fibrillation, DI for Heart Failure Exacerbations, Stop Light Pneumonia, Stop Light COPD, Stop Light Heart Failure, Stop Light Infection Print Language: Spanish Providers Primary Care Provider: Alexy Richardson Provider: Richard Munoz Attending Provider: Richard Munoz
[2025-03-30] MEDS: humaLOG 100 UNITS/ML 10ML VIAL (SSI) SUBCUT (12:03)
[2025-03-30 12:16] LABS: POC Glucose,Bedside 223 (70-110)
[2025-03-30] MEDS: levoFLOXacin 750 MG TABLET PO (12:29)
[2025-03-30 13:33] VITALS: PULSE 108; PULSE 113; O2SAT 96
== END 2025-03-30 13:55 | DRG 190 ==
LOC: ER 14:29 → 2ND 15:34
PROVIDERS: Admitting Provider Student in an Organized Health Care Education/Training Program; Emergency Provider Student in an Organized Health Care Education/Training Program; PCP Family Medicine; Visit Provider Student in an Organized Health Care Education/Training Program
DX: J44.1 Chronic obstructive pulmonary disease with (acute) exacerbation (principal); A41.9 Sepsis, unspecified organism; I50.33 Acute on chronic diastolic (congestive) heart failure; J18.9 Pneumonia, unspecified organism; I48.20 Chronic atrial fibrillation, unspecified; I13.0 Hypertensive heart and chronic kidney disease with heart failure and stage 1 through stage 4 chronic kidney disease, or unspecified chronic kidney disease; N17.9 Acute kidney failure, unspecified; J44.0 Chronic obstructive pulmonary disease with (acute) lower respiratory infection; B34.8 Other viral infections of unspecified site; E73.9 Lactose intolerance, unspecified; I49.5 Sick sinus syndrome; I49.3 Ventricular premature depolarization; K75.81 Nonalcoholic steatohepatitis (NASH); F41.9 Anxiety disorder, unspecified; N18.30 Chronic kidney disease, stage 3 unspecified; E03.9 Hypothyroidism, unspecified; I25.10 Atherosclerotic heart disease of native coronary artery without angina pectoris; F32.9 Major depressive disorder, single episode, unspecified; I07.1 Rheumatic tricuspid insufficiency; M19.011 Primary osteoarthritis, right shoulder; E78.5 Hyperlipidemia, unspecified; E11.22 Type 2 diabetes mellitus with diabetic chronic kidney disease; I25.2 Old myocardial infarction; Z79.899 Other long term (current) drug therapy; Z79.01 Long term (current) use of anticoagulants; Z79.4 Long term (current) use of insulin; Z79.890 Hormone replacement therapy; Z79.02 Long term (current) use of antithrombotics/antiplatelets; Z88.8 Allergy status to other drugs, medicaments and biological substances; Z91.81 History of falling; Z95.0 Presence of cardiac pacemaker; Z90.89 Acquired absence of other organs; Z90.710 Acquired absence of both cervix and uterus; Z90.49 Acquired absence of other specified parts of digestive tract; Z80.9 Family history of malignant neoplasm, unspecified; Z95.5 Presence of coronary angioplasty implant and graft; Z91.09 Other allergy status, other than to drugs and biological substances
CPT/HCPCS: 36415; 71045; 74176; 80048; 80053; 81001; 82140; 82803; 82962; 83605; 83690; 83735; 83880; 84443; 84484; 85007; 85025; 87070; 87205; 87633; 87636; 93005; 94640; 94667; 94668; 94760; 94761; 97162; 97166; 97530; J0692; J1650; J1938; J2405; J2550; J2765; J7030; J7614

== ENCOUNTER 2025-04-07 20:31 | Inpatient (IN) | payer MEDICARE, MEDICAID, SELFPAY ==
--- OUTSIDE RECORDS SUMMARY | 2025-04-07 20:35 | XMS_ITS ---
Author Name Auto Generated, Auto Generated Organization [facility] Address [address] [place] [address] Phone [phone] Care Team Providers Care Php Lamp Developer Name Role Phone Hu Miller Unavailable [phone] Functional Status No Results Mental Status No [...]
--- OUTSIDE RECORDS SUMMARY | 2025-04-07 20:35 | XMS_ITS ---
Author Name Auto Generated, Auto Generated Organization [facility] Address [address] [place] [address] Phone [phone] Care Team Providers Care Business Segment Manager Name Role Phone Hu Miller Unavailable [phone] Functional Status No Results Mental Status No [...]
--- OUTSIDE RECORDS SUMMARY | 2025-04-07 20:36 | XMS_ITS | Data Portability ---
Author Organization [facility] CRIS Elizabeth SAUGATUCK CLOSED Address [address] [facility] [address] [place] [address] Care Team Providers Care Glaze Maker Name Role Phone [facility] Referring Provider Assessment No assessment recorded. Plan of Treatment Reminders Order Date Submit Date Provider Last Modified By Organization Details Last Modified Time Details Appointments None recorded. Lab urinalysis panel, auto 2023 024 [email or web address] [facility] [address] [facility], [place], [address], 09:37:00 Referral None recorded. Procedures None recorded. Surgeries None recorded. Imaging None recorded. Medication Orders None recorded. Patient TargetsNo targets recorded. Patient Instructions Encounter Date Encounter Id Patient Instructions Last Modified By Organization Details Last Modified Time 03/02/2024 [id number] From the best I can tell Mrs. [...] Clean Catch Not Available [facility] [address] [facility], [place], [address], 03/02/2024 13:52:45 03/02/20 24 03/02/2024 urina lysis panel , auto Unknown Analyte Yellow Not Available [facility] Urology [facility] [address] [place], [address], 03/02/2024 13:52:45 03/02/20 24 03/02/2024 urina lysis panel , auto Unknown Analyte Clear Not Available [facility] [address] [place], [address], 03/02/2024 13:52:45 03/02/20 24 03/02/2024 urina lysis panel , auto Unknown Analyte 1.010 Not Available [facility] [address] [place], [address], 03/02/2024 13:52:45 03/02/20 24 03/02/2024 urina lysis panel , auto Unknown Analyte 6.0 Not Available [facility] [address] [facility], [place], [address], 03/02/2024 13:52:45 03/02/20 24 03/02/2024 urina lysis panel , auto Unknown Analyte Negati ve Not Available [facility] [address] [place], [address], 03/02/2024 13:52:45 03/02/20 24 03/02/2024 urina lysis panel , auto Unknown Analyte Negati ve Not Available [facility] [address] [place], [address], 03/02/2024 13:52:45 03/02/20 24 03/02/2024 urina lysis panel , auto Unknown Analyte Negati ve Not Available [facility] [address] [place], [address], 03/02/2024 13:52:45 03/02/20 24 03/02/2024 urina lysis panel , auto Unknown Analyte 250 mg/dl Not Available [facility] [address] [place], [address], 03/02/2024 13:52:45 03/02/20 24 03/02/2024 urina lysis panel , auto Unknown Analyte Negati ve Not Available [facility] [address] [place], [address], 03/02/2024 13:52:45 03/02/20 24 03/02/2024 urina lysis panel , auto Unknown Analyte Normal Not Available [facility] [address] [place], [address], 03/02/2024 13:52:45 03/02/20 24 03/02/2024 urina lysis panel , auto Unknown Analyte Negati ve Not Available [facility] [address] [place], [address], 03/02/2024 13:52:45 03/02/20 24 03/02/2024 urina lysis panel , auto Unknown Analyte Negati ve Not Available [facility]rol[facility] [address] [place], [address], 03/02/2024 13:52:45 Result Notes None recorded. Medical Equipment None Reported. Allergies Allergen ID Allergen Name Allergen Category Reaction Reaction Severity Criticality Documentation Date Start Date Code Code System Note Provider Name and Address Organization Details Recorded Time 495232 meloxicam medicatio n Not available Not available Not available 03/02/2024 31433 RxNorm Mariana MARCELINA Cotter [facility] 13:34:08 [id number] aspirin medicatio n Not available Not available Not available 03/02/2024 1191 RxNorm Mariana Lee [facility] 4 13:34:12 [id number] ibuprofen medicatio n Not available Not available Not available 03/02/2024 5640 RxNorm Mariana Lee [facility] 4 13:34:17 Medications Name Sig Start [...] Available No t Available FreeStyle [facility] [address] [place] USE DIRECTED FOR continuous glucose monitoring active [...] Updated DateTime 03/02/2024 160.02 cm 25.3 kg/m2 17292.71 g Mariana Lee [facility] 03/02/2024 13:34:01 Social History Question [...] SNOMED-CT Code Diagnosis ICD10 Code Diagnosis Note [id number] RAND WHITLOCK MD UROLOGY [facility] [address] [place] [address] 03/02/2024 13:12:03 03/02/2024 14:09:22 Dysuria [id number] R30.0 Health Concerns Section Related Observation LastModified [...] PLUS (MEDICARE REPLACEMENT HMO) [id number] Kareen Mallory [id number] Kareen Mallory 03/08/2024 2 MED[place]ID-[place] CHOICES - FFS/TRADITIONA L Kareen Mallory [id number] Kareen Mallory Notes Date Note Type Note Provider Name and Address Organization Details Recorded Time 03/02/2024 text/html 88 yo new female is here for her h/o of kidney disease, referred by Dr. gutiérrez. RAND WHITLOCK MD [address] [place] [address], [address], [facility] 03/06/2024 09:37:28 OBGyn Episode No OBEpisode recorded.
--- OUTSIDE RECORDS SUMMARY | 2025-04-07 20:36 | XMS_ITS | Data Portability ---
Author Organization [facility] SALINA Marcial ADMIN Address [address] [place] [id number] Assessment No assessment recorded. Plan of Treatment Reminders Order Date Submit Date Provider Last Modified By Organization Details Last Modified Time Details Appointments None recorded. Lab cytology, peritoneal fluid [address] (Scheduling), [address] [facility] [address], [place], [address], 4 15:48:33 cell count w/ diff, body fluid [address] (Scheduling), [address] [place] [address] [address], [place], [address], 4 15:48:33 Referral None recorded. Procedures abdominal paracentesi s; with imaging guidance (PROC) - Standing order for paracentesi s. See fluid orders. Standing order for cell ct w/diff with every subsequent paracentesi s. Cytology just with the first. 2023 024 [email or web address] [facility] Scheduling, [address] [facility] [address], [place], [address], 4 14:39:19 Surgeries None recorded. Imaging None recorded. Medication Orders Xifaxan 550 mg tablet 2023 024 [facility], [address] [facility] [address], [place], [id number], 4 14:28:23 Patient TargetsNo targets recorded. Patient Instructions Encounter Date Encounter Id Patient Instructions Last Modified By Organization Details Last Modified Time 06/19/2024 [id number] Follow up as planned with Dr. Beverly. Return to clinic as needed. [email or web address] Not available 06/19/2024 16:53:35 Reason for Referral None Reported. Results Created Date Observation Date Name Description Value Unit Range Abnormal Flag Note LastModifiedBy Organization Detail LastModifiedTime 06/23/20 24 06/23/2024 US, abdom en No observ ation record ed. [email or web address], [place], [address], 06/23/2024 14:23:48 08/27/20 24 08/27/2024 CT, head + brain , w/o contr ast No observ ation record ed. [place] [id number] [facility] [address], [place], [address], 09/06/2024 16:53:12 08/27/20 24 08/27/2024 CT, cervi rj spine , w/o contr ast No observ ation record ed. [facility] [address], [place], [address], 09/06/2024 16:53:33 08/27/20 24 08/27/2024 XR, chest , 2 view No observ ation record ed. [facility] [address], [place], [address], 09/06/2024 16:54:44 08/27/20 24 08/27/2024 CT, abdom en + pelvi s, w/o contr ast No observ ation record ed. [facility] [address], [place], [id number], 09/06/2024 16:54:29 Result Notes None recorded. Medical [...] Available No t Available FreeStyle Kai 2 [place] USE DIRECTED FOR continuous glucose monitoring (OR [...] Pulse oximetry Heart rate Heart rate Systolic And Diastolic Provider Name and Address Organization Details Last Updated DateTime 4 [address]187.7 4 g 25.6 kg/m2 160.02 cm 97.2 [degF] 96 % 96 % 110 /min 110 /min 133/75 mm[Hg] Tamia Gonzales [place] - [facility] - [place] & [place] 4 14:25:40 Social History None recorded. Functional Status None recorded. Mental Status None recorded. Family History Nothing Reported. Medical History No medical history recorded. Gynecological HistoryNo gynecological history recorded. Obstetrics History GPAL:G 0 P 0 0 0 0 Past Encounters Encounter ID Performer Location Encounter Start Date Encounter Closed Date Diagnosis/Indication Diagnosis SNOMED-CT Code Diagnosis ICD10 Code Diagnosis Note [id number] MELLISA YEE NP [facility] [facility] [address] [place] [address] 06/19/2024 14:13:53 06/19/2024 15:23:14 Cirrhosis of liver 24201202 K74.60 # Cirrhosis, decompensa lm by ascites-ci [...] g per day-Avoid alcohol, avoid NSAIDs Ascites 770076898 R18.8 Orders for standing paracentes is placed.Con tinue current diuretics as ordered. I have reservatio ns changing diuretics with kidney function. Hepatic encephalopathy 72417883 K76.82 Start xifaxan as ordered. If not [...] PLUS (MEDICARE REPLACEMENT HMO) [id number] Kareen Mallory [id number] Kareen Mallory Notes Date Note Type [...] earlier this year by a physician at [facility]. The majority of Kareen's health care providers are within [facility]. She says Kareen used alcohol heavily when she was younger, does not drink alcohol now. She was seen in the ED at [facility] on 05/24/[address] scan [...] is clear/yellow. 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 Her BNP was 4150. Cardiology at [facility] is following. She had a pacemaker placed in 2016, stents placed in October 2022. She is on Xarelto. PT/INR elevated. She denies symptoms of GI bleed, no jaundice or pruritus. Her daughter has noticed cognitive impairment recently, stating Kareen has been more forgetful. She has an appointment with Dr. Beverly at [facility] on 07/25/24. Her PCP recommended she be seen at our clinic today. She has been seen by Dr. Beverly in the past. MELLISA YEE, [facility] [address], [place], [address], [facility] - [place] - [place] & [place] 06/19/2024 16:53:55 OBGyn Episode No OBEpisode recorded.
--- OUTSIDE RECORDS SUMMARY | 2025-04-07 20:37 | XMS_ITS | Clinical Summary ---
Author Organization Healthcare Address [address] [id number] Care Team Providers Care Athletic Team Physician Name Role Phone Alexy Rivera MD Primary Care Provider [phone] Allergies No known active allergies Medications atorvastatin [...] Continuous Glucose Sensor (FreeStyle Kai 2 Sensor) [facility] USE DIRECTED 01/24/20 24 Active fluticasone (Flonase) [...] Wellness (AWV) 1937 [facility]-Infant/Child/Adol SDOH Screenings 1937 [id number] Vaccine (#1) 1942 [facility]- SDOH Screenings 1955 [facility]-Adult SDOH Screenings 1955 [facility]-DTaP,Tdap,and Td Vaccines (1 - Tdap) 1956 [facility]-Zoster Vaccines (1 of 2) 1987 [facility]-RSV Vaccine: 60+ Years or (1 - 1-dose 75+ series) 2012 [facility]-Influenza Vaccine (#1) 06/04/202508/23, 09/11/2022, 08/01/2021, Additional history exists [facility]-Pneumococcal Vaccine: [...] topic Insurance [employer] [place] Care Teams Athletic Team Physician Relationship Specialty Start Date End Date Alexy Rivera MD [address] [place] [address] PCP - General 02/14/21
[2025-04-07 20:42] VITALS: BP 112/66; PULSE 108; RESP 17; TEMP 36.8; O2SAT 97; BMI 33.6
--- NOTE | 2025-04-07 20:51 | CT_ITS ---
PROCEDURE INFORMATION: Exam: CT Chest Without Contrast; Diagnostic Exam date and time: 04/07/2025 9:03 PM Age: 89 years old Clinical indication: Shortness of breath; Additional info: Worsening dyspnea, recent lll pna TECHNIQUE: Imaging protocol: Diagnostic computed tomography of the chest without contrast. Radiation optimization: All CT scans at this facility use at least one of these dose optimization techniques: automated exposure control; mA and/or kV adjustment per patient size (includes targeted exams where dose is matched to clinical indication); or iterative reconstruction. COMPARISON: CT ANGIO CHEST PE PROTOCOL 01/17/2025 10:03 AM FINDINGS: Tubes, catheters and devices: Cardiac pacemaker on the left chest. Lungs: 1.8 cm spiculated subpleural nodule in the right upper lobe. Large right pleural effusion with compressive atelectasis of the right lung. Small right pleural effusion with compressive atelectasis of the adjacent right lung base. Multiple patchy subpleural ground-glass opacities in the right upper lobe. Pleural spaces: See Lungs finding. Heart: Unremarkable. No cardiomegaly. No pericardial effusion. Coronary arteries: Extensive calcification of the coronary arteries. Lymph nodes: Calcified hilar and mediastinal lymph nodes. Vasculature: Mild calcification of the aorta. Bones/joints: Degenerative changes in the spine. There are multiple vertebral body endplate concavities, consistent with chronic insufficiency fractures. Soft tissues: Unremarkable. IMPRESSION: 1. Large right pleural effusion with compressive atelectasis of the right lung. 2. Small right pleural effusion with compressive atelectasis of the adjacent right lung base. 3. Multiple patchy subpleural ground-glass opacities in the right upper lobe. Nonspecific appearance, differential diagnosis includes pneumonia, pulmonary edema, acute interstitial pneumonia among other entities. Correlate clinically. 4. 1.8 cm spiculated subpleural nodule in the right upper lobe. For both low risk and high risk patients, consider CT Chest at 3 months, PET/CT, or biopsy (Reference: Elvira). References: Elvira Jiang, et al. Guidelines for Management of Incidental Pulmonary Nodules Detected on CT Images: From the Fleischner Society 2017. Radiology. 2017;284(1):228-243.
[2025-04-07 20:55] LABS: Lactate Venous 1.9 mmol/L (0.4-2.0); VBG HCO3 20.0 mmol/L (23-30); VBG PCO2 32.7 mmol/L (35-51); VBG PH 7.40 mmol/L (7.31-7.41); VBG PO2 92.5 mmol/L (28-40)
[2025-04-07 20:58] LABS: Hematocrit 28.9 % (37.0-47.0); Hemoglobin 9.3 g/dL (12.2-16.2); Immature Granulocytes % 0.7 %; Mean Corpuscular HGB Conc 32.2 g/dL (31.8-35.4); Mean Corpuscular Hemoglobin 28.4 pg (27.0-31.2); Mean Corpuscular Volume 88.4 fl (81-99); Nucleated Red Blood Cells % 0 %; Platelet Count 165 K/mm3 (142-424); Red Blood Count 3.27 M/mm3 (4.20-5.40); Red Cell Distribution Width-SD 57.2 fL; White Blood Count 11.7 K/mm3 (4.8-10.8)
--- NOTE | 2025-04-07 21:02 | HMH.EDGENADL ---
Discharge Plan Disposition Patient Disposition: Admitted Prescriptions Prescriptions: No Action atorvastatin 40 mg tablet 40 mg PO HS fluticasone propionate 50 mcg/actuation spray,suspension 1 spray intranasal DAILY Rx Instructions: administer into each nostril artificial tear(pvogv-nfy-ehl) 0.1-0.3-0.2 % drops 1 drp Eye-Left TID ferrous gluconate 324 mg (38 mg iron) tablet 324 mg PO BID furosemide [Lasix] 40 mg tablet 40 mg PO BID guaifenesin [Daksha-Tussin] 100 mg/5 mL liquid 200 mg PO Q6 PRN (Reason: Cough) prochlorperazine maleate [Compazine] 5 mg tablet 2.5 mg PO TID PRN (Reason: nausea and vomiting) Qty: 30 0RF insulin glargine [Lantus Solostar U-100 Insulin] 100 unit/mL (3 mL) insulin pen 15 unit SQ BID 60 Days Qty: 18 4RF Breztri Aerosphere 160-9-4.8 mcg/actuation HFA aerosol inhaler 2 inh inhalation BID Qty: 10.7 2RF hydrocodone-acetaminophen 7.5-325 mg tablet 1 tab PO QID Qty: 120 0RF sertraline 100 mg tablet 100 mg PO DAILY Patient Comments: TAKE ONE TABLET BY MOUTH EVERY DAY omeprazole 40 mg capsule,delayed release(DR/EC) 40 mg PO DAILY Patient Comments: TAKE ONE CAPSULE BY MOUTH EVERY DAY levothyroxine 50 mcg tablet 50 mcg PO DAILY Xarelto 15 mg tablet 15 mg PO HS Patient Comments: TAKE ONE TABLET BY MOUTH EVERY NIGHT AT BEDTIME --TAKE WITH FOOD-- mirabegron [Myrbetriq] 25 mg tablet extended release 24 hr 25 mg PO DAILY Patient Comments: TAKE ONE TABLET BY MOUTH EVERY DAY FOR BLADDER lactulose 20 gram/30 mL Solution 10 g PO BID 30 Days Qty: 900 0RF polyethylene glycol 3350 [Miralax] 17 gram/dose powder 17 g PO DAILY Qty: 510 0RF sodium bicarbonate 325 mg tablet 325 mg PO BID 30 Days Qty: 60 0RF lidocaine [Lidocaine Pain Relief] 4 % Adhesive Patch,Medicated 1 patch TOPICAL DAILY metolazone 5 mg Tablet 5 mg PO DAILY clopidogrel 75 mg tablet 75 mg PO DAILY insulin lispro [Humalog KwikPen Insulin] 100 unit/mL insulin pen 0 sliding scale dose SQ TID mecobalamin (vitamin B12) 5,000 mcg tablet,chewable 5,000 mcg PO DAILY spironolactone 25 mg Tablet 50 mg PO DAILY 30 Days Qty: 60 0RF levalbuterol HCl 1.25 mg/3 mL Solution For Nebulization 1.25 mg inhalation BID 30 Days Qty: 180 0RF metoclopramide HCl 5 mg tablet 5 mg PO AC 30 Days Qty: 90 0RF metoprolol tartrate 50 mg Tablet 50 mg PO BID 30 Days Qty: 60 0RF levofloxacin 750 mg tablet 750 mg PO DAILY 1 Days Qty: 1 0RF Rx Instructions: due 04/01/25 Clinical Impressions Clinical Impression: Dyspnea, Hypoxic respiratory failure, Parapneumonic effusion, LLL pneumonia Print Language Print Language: [place] Discharge ED Provider: Zion Ramos General Adult HPI General Chief complaint: Shortness of Breath/Dyspnea Stated complaint: SOA Time Seen by Provider: 04/07/25 20:38 Mode of Arrival: Ambulatory Source of Information: Patient Description of Symptoms (Recalled from ER Triage Doc. by RN): pt presents to the ED d/t soa, pt has hx of copd. pt given duoneb in route History of Present Illness HPI narrative: Patient is an 89-year-old female presents today with shortness of breath. She has recently been in the hospital discharged about 10 days ago she had a dense consolidation her left lower lobe was treated with IV antibiotics and transition to oral Levaquin. She subsequently went to [facility] and was not on home oxygen according to family members are at the bedside however she was getting breathing treatments. Patient states she has been having a very significant and worsening time breathing last several days. According to the family member Dr. Crowe has been keeping a close eye on her oxygen and it was dropping into the 80s and she has been intermittently [facility]. Patient states that she has been unable to breathe until she was placed on oxygen by EMS. [place] to EMS there was an initial oxygen saturation reportedly in the 70s prior to their evaluation and by the time they got her on 3 L her oxygen saturations were in the mid 90s she was also given a breathing treatment. Patient states she is breathing much better now. Also earlier in the day she states that she felt very warm and was having a drenching body sweat. No objective fever. Patient continues to have a cough. Completed antibiotic several days ago. Related Data Home Medications ?Medication ?Instructions ?Recorded ?Confirmed levothyroxine 50 mcg tablet 50 mcg PO DAILY 10/13/24 04/04/25 mirabegron 25 mg tablet,extended 25 mg PO DAILY 10/13/24 04/04/25 release 24 hr (Myrbetriq) omeprazole 40 mg capsule,delayed 40 mg PO DAILY 10/13/24 04/04/25 release rivaroxaban 15 mg tablet (Xarelto) 15 mg PO HS 10/13/24 04/04/25 sertraline 100 mg tablet 100 mg PO DAILY 10/13/24 04/04/25 clopidogrel 75 mg tablet 75 mg PO DAILY 01/17/25 04/04/25 insulin lispro 100 unit/mL 0 sliding scale dose SQ TID 01/17/25 04/04/25 subcutaneous pen (Humalog KwikPen (U-100) Insulin) lidocaine 4 % topical patch 1 patch topical DAILY 01/17/25 04/04/25 (Lidocaine Pain Relief) mecobalamin (vitamin B12) 5,000 5,000 mcg PO DAILY 01/17/25 04/04/25 mcg chewable tablet metolazone 5 mg tablet 5 mg PO DAILY 01/17/25 04/04/25 Held on 03/30/25. Instructions: Consider resuming if patient develops edema artificial 1 drp Eye-Left TID 02/27/25 04/04/25 tears(dpqnksh-yhfbiqrv-xqgeevi) 0.1 %-0.3 %-0.2 % eye drops atorvastatin 40 mg tablet 40 mg PO HS 02/27/25 04/04/25 ferrous gluconate 324 mg (38 mg 324 mg PO BID 02/27/25 04/04/25 iron) tablet fluticasone propionate 50 1 spray intranasal DAILY 02/27/25 04/04/25 mcg/actuation nasal spray,suspension furosemide 40 mg tablet (Lasix) 40 mg PO BID 02/27/25 04/04/25 Held on 03/30/25. Instructions: Resume if develops edema guaifenesin 100 mg/5 mL oral 200 mg PO Q6 PRN Cough 02/27/25 04/04/25 liquid (Daksha-Tussin) Previous Rx's ?Medication ?Instructions ?Recorded lactulose 20 gram/30 mL oral 10 g (15 mL) PO BID 30 days #900 mL 10/18/24 solution polyethylene glycol 3350 17 17 g PO DAILY #510 grams 10/18/24 gram/dose oral powder (Miralax) sodium bicarbonate 325 mg tablet 325 mg PO BID 30 days #60 tabs 10/18/24 insulin glargine 100 unit/mL (3 15 unit (0.15 mL) SQ BID 60 days 11/14/24 mL) subcutaneous pen (Lantus #18 mL Solostar U-100 Insulin) budesonide 160 mcg-glycopyr 9 2 inh inhalation BID #10.7 grams 01/16/25 mcg-formot 4.8 mcg/actuation HFA inhaler (Breztri Aerosphere) spironolactone 25 mg tablet 50 mg (2 x 25 mg) PO DAILY 30 days 01/19/25 Held on 03/30/25. #60 tabs Instructions: Resume if develops edema prochlorperazine maleate 5 mg 2.5 mg (1/2 x 5 mg) PO TID PRN 02/27/25 tablet (Compazine) nausea and vomiting #30 tabs levalbuterol HCl 1.25 mg/3 mL 1.25 mg (3 mL) inhalation BID 30 03/30/25 solution for nebulization days #180 mL levofloxacin 750 mg tablet 750 mg PO DAILY 1 day #1 tab 03/30/25 metoclopramide HCl 5 mg tablet 5 mg PO AC 30 days #90 tabs 03/30/25 metoprolol tartrate 50 mg tablet 50 mg PO BID 30 days #60 tabs 03/30/25 hydrocodone 7.5 mg-acetaminophen 1 tab PO QID pain #120 tabs 04/03/25 325 mg tablet Allergies Allergy/AdvReac Type Severity Reaction Status Date / Time methylprednisolone AdvReac Mild Elevated Verified 04/04/25 10:12 glucose [facility] Disclaimer: The information contained in this section may have been updated after the patient was seen, as this information can be updated by other users. Medical History Pneumonia Acute respiratory failure with hypoxia Bilateral leg edema Acute on chronic heart failure with preserved ejection fraction (HFpEF) COPD (chronic obstructive pulmonary disease) Major depressive disorder with single episode Heart failure Myocardial infarct, old Pacemaker Hypothyroid Fall Chronic Kidney Disease Splenomegaly Cirrhosis of liver Ascites Seasonal allergies Hyperlipemia Hypertension Aneurysm of splenic artery Acute hyperkalemia Arthritis History of gastroesophageal reflux (GERD) Diabetes mellitus, type 2 History of cataract History of left heart catheterization (LHC) Gastritis PAF (paroxysmal atrial fibrillation) DKA (diabetic ketoacidosis) Lactose intolerance 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 Anemia Cardiac pacemaker in situ SSS (sick sinus syndrome) Coronary artery disease Surgical History Hx of cardiac cath Closed intertrochanteric fracture of left hip (~10/2024) Status post cephalomedullary nailing left proximal femur History of esophagogastroduodenoscopy (EGD) Hx of tonsillectomy History of colonoscopy History of hysterectomy History of appendectomy History of cholecystectomy Family History Other Family history of cancer Social History Smoking Status: Unknown if ever smoked second hand exposure: No alcohol intake: never substance use type: denies use current occupational status: disabled Travel in the last 8 weeks?: None household members: family housing: house caffeine: No Have you lived/traveled outside [place] in past 30 days?: No Contact w/someone who lives/traveled outside US past 30 days?: No Exposure to someone with infectious disease in past 14 days?: No Do you have a fever (greater than 100.4 F or 38 C)?: No Have you tested positive for COVID-19?: No Exposed to someone with COVID-19 in past 14 days?: No Do you have a sore throat?: No Do you have a cough?: No Do you have any weakness?: No Do you have any diarrhea?: No Are you experiencing any unusual bleeding?: No Do you have any muscle aches/pain?: No Do you have any abdominal pain?: No Are you experiencing loss of taste or smell?: No Other Medical History Have you received the Flu Vaccine for this season: No Have you received the Pneumonia Vaccine: No ROS Obtained: Yes All systems reviewed & no additional complaints except as documented Physical Exam General General appearance: alert Respiratory Respiratory exam: Present normal lung sounds bilaterally and other (3 L nasal cannula ox saturations 95% on room air.); Absent respiratory distress Cardiovascular Cardiovascular exam: Present regular rate and normal rhythm Neurological Exam Neurological exam: Present alert and oriented X3 Medical Decision Making Medical Records Screening: Per USPSTF and CDC recommendations, given the prevalence of disease in our region, it is our hospital?s policy to screen for HIV and viral Hepatitis for all patients aged 18 and over and those with ongoing risk factors. Thomas Inquiry Pt receiving controlled substance: No Vital Signs: 04/07/25 20:42 Temperature 98.2 F Temperature Source Oral Pulse Rate [Right Radial] 108 H Respiratory Rate 17 Blood Pressure [Right Arm] 112/66 Blood Pressure Mean [Right Arm] 81 Blood Pressure Position [Right Arm] Supine 02 Sat by Pulse Oximetry 97 Oxygen Delivery Method Room Air Lab Data Lab results reviewed: Yes I reviewed the patient's lab results. Lab Results 04/07/25 20:30: Sodium 132 L, Potassium 5.3 H, Chloride 100, Carbon Dioxide 21 L, Anion Gap 16.3 H, BUN 55 H, Creatinine 1.10 H, Estimated Creat Clear 49, Estimated GFR 47 L, Est GFR ( Amer) 57 L, Glucose 198 H, Calcium 8.5, Total Bilirubin 1.1, AST 51 H, ALT 17, Alkaline Phosphatase 167 H, NT-Pro-B Natriuret Pep 5490 H, Total Protein 6.8, Albumin 3.4 L, Globulin 3.4 H, Albumin/Globulin Ratio 1.0 L 04/07/25 20:50: WBC 11.7 H, RBC 3.27 L, Hgb 9.3 L, Hct 28.9 L, MCV 88.4, MCH 28.4, MCHC 32.2, RDW 17.7 H, Plt Count 165, MPV 10.7 H, Neut % (Auto) 83.4 H, Lymph % (Auto) 8.0 L, [place] % (Auto) 6.8, Eos % (Auto) 0.8, Baso % (Auto) 0.3, Neut # (Auto) 9.7 H, Lymph # (Auto) 0.9, [place] # (Auto) 0.8, Eos # (Auto) 0.1, Baso # (Auto) 0.0 04/07/25 20:52: VBG pH 7.40, VBG pCO2 32.7 L, VBG pO2 92.5 H, VBG HCO3 20.0 L, VBG Total CO2 21.0 L, VBG O2 Saturation 96.6 H, VBG Base Excess -4.8 L, VBG Lactic Acid 1.9 04/07/25 20:50 04/07/25 20:30 Orders (Tests/Meds): ED MEDICATIONS Generic Name Dose Route Start Last Admin Trade Name Freq PRN Reason Stop Dose Admin Piperacillin Sod/Tazobactam 50 mls @ 100 mls/hr 04/07/25 21:39 Sod 3.375 gm/ Sodium Chloride IV 04/07/25 22:08 ONCE ONE Miscellaneous 1 each 04/07/25 21:45 Vancomycin Consult Request NOTAPPLIC 05/07/25 21:44 [facility] Discontinued Medications Generic Name Dose Route Start Last Admin Trade Name Freq PRN Reason Stop Dose Admin Acetaminophen 1,000 mg 04/07/25 20:58 04/07/25 21:08 Acetaminophen 1,000mg/100ml Vial IV 04/07/25 20:59 1,000 mg ONCE ONE Administration ORDERS Category Date Time Status CT chest wo con Stat Cat Scan 04/07/25 20:51 Taken POCUS Point of Care (ER Only) Stat Exams 04/07/25 21:09 Ordered BNP [NT Pro Brain Natriuretic Pep.] Stat Lab 04/07/25 20:30 Completed CBC w/Auto Diff [Complete Blood Count Auto Diff] Stat Lab 04/07/25 20:50 Completed CMP [Comprehensive Metabolic Panel] Stat Lab 04/07/25 20:30 Results Lactate Venous Stat Lab 04/07/25 20:51 Ordered Rapid PCR Covid and Flu A/B Stat Lab 04/07/25 20:55 Ordered Trop I [Troponin I] Stat Lab 04/07/25 20:30 Results Troponin I Q3H Lab 04/07/25 23:52 Ordered Troponin I Q3H Lab 04/08/25 02:52 Ordered Blood Culture Stat Micro 04/07/25 21:39 Received Venous Blood Gas Stat RT 04/07/25 20:52 Completed Medical Decision Narrative: 89-year-old with above history and physical. Quit in family members patient has a history of COPD heart failure and recent pneumonia. Given the fact that she had a dense consolidation on my personal review and interpretation of her recent CT scan I am concerned especially with worsening cough or ongoing cough and drenching sweats earlier today that she has a worsening of this condition. Will get a noncontrasted CT scan to look at her lung parenchyma further. Other things in the differential certainly include heart failure and pulmonary embolism and COPD. However patient's clinical exam is not consistent with COPD as she is not having any wheezing tightness etc. Also patient does not appear clinically to be volume overloaded. I will reassess after this initial workup is complete. Reassessment [address] scan was performed I personally interpreted which shows a large left-sided pleural effusion and a small right-sided pleural effusion there is also ongoing evidence of consolidation and atelectasis of the left lung. I subsequently did a ultrasound which shows a hypoechoic fluid collection around the consolidative or atelectatic lung. Will treat this as a worsening pneumonia possible parapneumonic effusion is possible that this is also associated with heart failure. Patient has a known history of effusions and ascites is and third spaces pretty regularly. She will need to be diuresed. Eric Serna have been initiated discussed the case and reviewed images with Dr. Singh who agreed to keep the patient here. Patient is very stable on 3 L not any distress no indication for any emergent thoracentesis at the moment or intubation. Dr. Moise will see the patient on Wednesday I subsequently spoke to Dr. Bruce who agreed to admit the patient for further evaluation and management. Family is aware of this and agreed with this plan. Procedures Miscellaneous Procedure Procedure Performed: Limited cardiac ultrasound Indication: Dyspnea Identified structures: The heart was visualized in the parasternal long axis, parastenal short axis, apical four chamber and subxyphiod views. The IVC was visualized in the short axis and long axis at its entry into the right atrium. Findings: Normal LVEF no significant or severe right heart strain no pericardial effusion noted Impression: Unremarkable limited ultrasound of the heart Images were saved to permanent archive The study was technically adequate CPT: 01450-49 This study was performed by me, and I personally interpreted all images/videos. Based on my clinical judgement, these images were adequate and did not necessitate further imaging. Limited lung ultrasound A focused ultrasound exam of the pleural spaces was performed to evaluate for pneumothorax, pulmonary edema, pleural effusion and/or consolidation. The ultrasound was performed with the following indications, as noted in the H&P: Dyspnea Identified structures: Right and left thoracic cavities were examined. Findings: Lung sliding present throughout there is a large left-sided pleural effusion pockets about 2 cm evidence of lung consolidation and collapse within this no dense debris noted within this there is a small right-sided pleural effusion Impression: Large left pleural effusion small right pleural effusion there is evidence of consolidation of left lung Images were saved to permanent archive The study was technically adequate CPT 27694-98 This study was performed by me, and I personally interpreted all images/videos. Based on my clinical judgement, these images were adequate and did not necessitate further imaging. Critical Care Critical Care Time Critical Care Time: Yes Attestation: On 04/07/25, the high probability of a clinically significant, sudden or life threatening deterioration of the following system(s) required my full and direct attention, intervention and personal management. The time I documented below is in addition to time spent performing reported procedures but includes the following listed in this critical care notation. Total Time Total Critical Care Time: 35
[2025-04-07] MEDS: ACETAMINOPHEN 1,000MG/100ML VIAL 1000 MG IV (21:08)
[2025-04-07 21:14] LABS: Alanine Aminotransferase 17 U/L (12-78); Albumin Level 3.4 g/dl (3.5-5.0); Albumin/Globulin Ratio 1.0 (1.1-1.8); Alkaline Phosphatase 167 U/L (38-126); Anion Gap 16.3 mEq/L (5-15); Aspartate Amino Transferase 51 U/L (14-36); Bilirubin,Total 1.1 mg/dl (0.2-1.3); Blood Urea Nitrogen 55 mg/dl (7-17); Calcium 8.5 mg/dl (8.4-10.2); Carbon Dioxide 21 mmol/L (22.0-30.0); Chloride 100 mmol/L (98-107); Creatinine Clearance Estimated 49 mL/min (50-200); Creatinine,Serum 1.10 mg/dl (0.52-1.04); Estimated Glomerular Filt Rate 47 ml/min (>60); GFR (African American) 57 ML/MIN (>60); Globulin 3.4 g/dL (1.3-3.2); Glucose 198 mg/dl (74-100); Potassium 5.3 mmoL/L (3.5-5.1); Sodium 132 mmol/L (136-145); Total Protein,Serum 6.8 g/dl (6.3-8.2)
[2025-04-07 21:22] LABS: NT Pro Brain Natriuretic Pep. 5490 pg/mL (0-450)
--- OUTSIDE RECORDS SUMMARY | 2025-04-07 21:36 | XMS_ITS | CCD ---
Author Organization Unknown Care Team Providers Care Clipper Machine Name Role Phone Unavailable Primary Care Provider Unavailabl e Unavailable Chronic Care Management Unavaila ble Summary Purpose DataExchange Insurance Providers Payer name Policy type / Coverage type Covered constitution party ID Effective Begin Date Effective End Date [facility] [id number] Unknown Unknown Family History Family History data not found Medication Administered No Medication Administered data Reason For Visit No Reason For Visit data Medical Equipment No Medical Equipment data Advance Directives No Advance Directive data
--- OUTSIDE RECORDS SUMMARY | 2025-04-07 21:36 | XMS_ITS | CCD ---
Author Organization Unknown Care Team Providers Care Stem Teacher Name Role Phone Unavailable Primary Care Provider Unavailabl e Unavailable Chronic Care Management Unavaila ble Summary Purpose DataExchange Insurance Providers Payer name Policy type / Coverage type Covered green party ID Effective Begin Date Effective End Date [facility] [id number] Unknown Unknown Family History Family History data not found Medication Administered No Medication Administered data Reason For Visit No Reason For Visit data Medical Equipment No Medical Equipment data Advance Directives No Advance Directive data
[2025-04-07] MEDS: VANCOMYCIN/WATER FOR INJ (PEG) 1.75 GM/350 ML PIGGYBACK IV (21:55)
[2025-04-07] MEDS: PIPERCILLIN/TAZO 3.375 GM in 0.9 % SODIUM CHLORIDE 50 ML IV (21:56)
[2025-04-07 22:00] VITALS: BP 105/65; PULSE 79; RESP 17; O2SAT 100
[2025-04-07 22:01] LABS: Troponin I < 0.01 ng/ml (0.00-0.034)
[2025-04-07 22:03] LABS: Coronavirus 19, PCR Not Detected (NotDetected); Influenza A, PCR Not Detected (NotDetected); Influenza B, PCR Not Detected (NotDetected)
--- NOTE | 2025-04-07 22:29 | P.HP_ITS ---
History of Present Illness *Admission Date: 04/08/25 *Reason for visit:: SOB *History of present illness: Patient is a 89-year-old female with past medical history of COPD GERD, diabetes mellitus, CKD, cirrhosis of liver, hypertension hyperlipidemia paroxysmal atrial fibrillation on Xarelto CAD who presents to the hospital due to complaint of shortness of breath. Patient currently lives at [facility] detention facility. Reportedly patient has been also utilizing oxygen at detention facility. [facility] Disclaimer: The information contained in this section may have been updated after the patient was seen, as this information can be updated by other users. Medical History Pneumonia Acute respiratory failure with hypoxia Bilateral leg edema Acute on chronic heart failure with preserved ejection fraction (HFpEF) COPD (chronic obstructive pulmonary disease) Major depressive disorder with single episode Heart failure Myocardial infarct, old Pacemaker Hypothyroid Fall Chronic Kidney Disease Splenomegaly Cirrhosis of liver Ascites Seasonal allergies Hyperlipemia Hypertension Aneurysm of splenic artery Acute hyperkalemia Arthritis History of gastroesophageal reflux (GERD) Diabetes mellitus, type 2 History of cataract History of left heart catheterization (LHC) Gastritis PAF (paroxysmal atrial fibrillation) DKA (diabetic ketoacidosis) Lactose intolerance 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 Anemia Cardiac pacemaker in situ SSS (sick sinus syndrome) Coronary artery disease Surgical History Hx of cardiac cath Closed intertrochanteric fracture of left hip (~10/2024) Status post cephalomedullary nailing left proximal femur History of esophagogastroduodenoscopy (EGD) Hx of tonsillectomy History of colonoscopy History of hysterectomy History of appendectomy History of cholecystectomy Family History Other Family history of cancer Social History Smoking Status: Unknown if ever smoked second hand exposure: No alcohol intake: never substance use type: denies use current occupational status: disabled Travel in the last 8 weeks?: None household members: family housing: house caffeine: No Have you lived/traveled outside [place] in past 30 days?: No Contact w/someone who lives/traveled outside US past 30 days?: No Exposure to someone with infectious disease in past 14 days?: No Do you have a fever (greater than 100.4 F or 38 C)?: No Have you tested positive for COVID-19?: No Exposed to someone with COVID-19 in past 14 days?: No Do you have a sore throat?: No Do you have a cough?: No Do you have any weakness?: No Do you have any diarrhea?: No Are you experiencing any unusual bleeding?: No Do you have any muscle aches/pain?: No Do you have any abdominal pain?: No Are you experiencing loss of taste or smell?: No Other Medical History Have you received the Flu Vaccine for this season: No Have you received the Pneumonia Vaccine: No Review of Systems Review of Systems Review of systems:: pertinent systems reviewed and negative unless documented below Meds Home Medications and Allergies Home Medications ?Medication ?Instructions ?Recorded ?Confirmed ?Type levothyroxine 50 mcg tablet 50 mcg PO DAILY 10/13/24 0 04/08/25 History mirabegron 25 mg tablet,extended 25 mg PO DAILY 04/08/25 History release 24 hr (Myrbetriq) omeprazole 40 mg capsule,delayed 40 mg PO DAILY 04/08/25 History release rivaroxaban 15 mg tablet (Xarelto) 15 mg PO HS 5 04/08/25 History sertraline 100 mg tablet 100 mg PO DAILY 10/13/2403/28 History lactulose 20 gram/30 mL oral 10 g (15 mL) PO BID 30 da ys #900 mL 10/18/24 04/04/25 Rx solution polyethylene glycol 3350 17 17 g PO DAILY #510 grams 0 10/18/24 04/08/25 Rx gram/dose oral powder (Miralax) sodium bicarbonate 325 mg tablet 325 mg PO BID 30 days #60 tabs 10/18/24 0 04/08/25 Rx insulin glargine 100 unit/mL (3 15 unit (0.15 mL) SQ B ID 60 days 11/14/24 04/08/25 Rx mL) subcutaneous pen (Lantus #18 mL Solostar U-100 Insulin) budesonide 160 mcg-glycopyr 9 2 inh inhalation BID #10 .7 grams 01/16/25 04/08/25 Rx mcg-formot 4.8 mcg/actuation HFA inhaler (Breztri Aerosphere) clopidogrel 75 mg tablet 75 mg PO DAILY 01/17/25 07/03/28 History insulin lispro 100 unit/mL 0 sliding scale dose SQ TID 01/17/25 04/08/25 History subcutaneous pen (Humalog KwikPen (U-100) Insulin) lidocaine 4 % topical patch 1 patch topical DAILY 01/0204/08/25 History (Lidocaine Pain Relief) mecobalamin (vitamin B12) 5,000 5,000 mcg PO DAILY 04/08/25 History mcg chewable tablet metolazone 5 mg tablet 5 mg PO DAILY 01/17/2504/04 History Held on 03/30/25. Instructions: Consider resuming if patient develops edema spironolactone 25 mg tablet 50 mg (2 x 25 mg) PO DAILY 30 days 01/19/25 04/08/25 Rx Held on 03/30/25. #60 tabs Instructions: Resume if develops edema artificial 1 drp Eye-Left TID 02/27/25 04/08/25 History tears(poxagkg-bkvfnvve-ltafcow) 0.1 %-0.3 %-0.2 % eye drops atorvastatin 40 mg tablet 40 mg PO HS 02/27/25 5 History ferrous gluconate 324 mg (38 mg 324 mg PO BID 02/27/25 04/08/25 History iron) tablet fluticasone propionate 50 1 spray intranasal DAILY 04/08/25 History mcg/actuation nasal spray,suspension furosemide 40 mg tablet (Lasix) 40 mg PO BID 02/27/25 04/04/25 History Held on 03/30/25. Instructions: Resume if develops edema guaifenesin 100 mg/5 mL oral 200 mg PO Q6 PRN Cough 04/08/25 History liquid (Daksha-Tussin) prochlorperazine maleate 5 mg 2.5 mg (1/2 x 5 mg) PO T ID PRN 02/27/25 04/08/25 Rx tablet (Compazine) nausea and vomiting #30 tabs levalbuterol HCl 1.25 mg/3 mL 1.25 mg (3 mL) inhalatio n BID 30 03/30/25 04/08/25 Rx solution for nebulization days #180 mL levofloxacin 750 mg tablet 750 mg PO DAILY 1 day #1 ta b 03/30/25 04/04/25 Rx metoclopramide HCl 5 mg tablet 5 mg PO AC 30 days #90 tabs 03/30/25 04/08/25 Rx metoprolol tartrate 50 mg tablet 50 mg PO BID 30 days #60 tabs 03/30/25 04/08/25 Rx hydrocodone 7.5 mg-acetaminophen 1 tab PO QID pain #12 0 tabs 04/03/25 04/08/25 Rx 325 mg tablet New Prescriptions to Start Prescriptions: Allergies Allergy/AdvReac Type Severity Reaction Status Date / Time methylprednisolone AdvReac Mild Elevated Verified 04/04/25 10:12 glucose Exam Data for Last 24 hours Vital signs and Labs for Last 24 Hours: Temp Pulse Resp BP Pulse Ox O2 Del Method 98.2 F 108 H 17 112/66 97 Room Air 04/07/25 20:42 04/07/25 20:42 04/07/25 20:42 04/07/25 20:42 04/07/25 20:42 04/07/25 20:42 Laboratory Results - last 24 hr 04/07/25 20:30: Sodium 132 L, Potassium 5.3 H, Chloride 100, Carbon Dioxide 21 L , Anion Gap 16.3 H, BUN 55 H, Creatinine 1.10 H, Estimated Creat Clear 49, Estimated GFR 47 L, Est GFR ( Amer) 57 L, Glucose 198 H, Calcium 8.5, Total Bilirubin 1.1, AST 51 H, ALT 17, Alkaline Phosphatase 167 H, Troponin I < 0.01, NT-Pro-B Natriuret Pep 5490 H, Total Protein 6.8, Albumin 3.4 L, Globulin 3.4 H, Albumin/Globulin Ratio 1.0 L 04/07/25 20:50: WBC 11.7 H, RBC 3.27 L, Hgb 9.3 L, Hct 28.9 L, MCV 88.4, MCH 28.4, MCHC 32.2, RDW 17.7 H, Plt Count 165, MPV 10.7 H, Neut % (Auto) 83.4 H, Lymph % (Auto) 8.0 L, [place] % (Auto) 6.8, Eos % (Auto) 0.8, Baso % (Auto) 0.3, Neut # (Auto) 9.7 H, Lymph # (Auto) 0.9, [place] # (Auto) 0.8, Eos # (Auto) 0.1, Baso # (Auto) 0.0 04/07/25 20:52: VBG pH 7.40, VBG pCO2 32.7 L, VBG pO2 92.5 H, VBG HCO3 20.0 L, VBG Total CO2 21.0 L, VBG O2 Saturation 96.6 H, VBG Base Excess -4.8 L, VBG Lactic Acid 1.9 I & O for Last 24 hours: Intake & Output 04/04/25 04/05/25 04/06/25 04/07/25 23:59 23:59 23:59 23:59 Weight 86.183 kg Constitutional Constitutional: no acute distress *Routine HEENT Exam Head: Present normocephalic Eye: Present EOMI and PERRL ENT: Present mucous membranes moist *Routine Neck Exam Neck: Present supple; Absent lymphadenopathy *Routine Respiratory Exam Respiratory: Present decreased breath sounds *Routine Cardiovascular Exam Cardiovascular: Present RRR *Routine Abdominal Exam Abdominal: Present soft and normoactive bowel sounds; Absent tenderness *Routine Rectal Exam Rectal:: deferred *Routine Genitalia Exam Genitalia:: deferred *Routine Extremities Exam Extremities: Absent cyanosis, clubbing or edema *Routine Skin Exam Skin: Present warm; Absent rash *Routine Neurological Exam Neurological: Present alert and oriented X3 Assessment and Plan *Assessment and plan (1) Pneumonia: Status: Acute Category: Medical Code(s): J18.9 - Pneumonia, unspecified organism (2) Acute respiratory failure with hypoxia: Status: Acute Category: Medical Code(s): J96.01 - Acute respiratory failure with hypoxia (3) COPD (chronic obstructive pulmonary disease): Status: Acute Category: Medical Code(s): J44.9 - Chronic obstructive pulmonary disease, unspecified (4) Diabetes mellitus, type 2: Status: Acute Qualifiers: Diabetes mellitus shelter insulin use: with terminal clerk use Diabetes mellitus complication status: with circulatory complication Diabetes mellitus complication detail: with other circulatory complications Qualified Code(s): E11.59 - Type 2 diabetes mellitus with other circulatory complications; Z79.4 - extermination supervisor (current) use of insulin Category: Medical Code(s): E11.9 - Type 2 diabetes mellitus without complications (5) Atrial fibrillation: Status: Acute Qualifiers: Atrial fibrillation type: unspecified chronic Qualified Code(s): I48.20 - Chronic atrial fibrillation, unspecified Category: Medical Code(s): I48.91 - Unspecified atrial fibrillation (6) HLD (hyperlipidemia): Status: Acute Qualifiers: Hyperlipidemia type: mixed hyperlipidemia Qualified Code(s): E78.2 - Mixed hyperlipidemia Category: Medical Code(s): E78.5 - Hyperlipidemia, unspecified Plan Patient is a 89-year-old female with past medical history of COPD GERD, diabetes mellitus, CKD, cirrhosis of liver, hypertension hyperlipidemia paroxysmal atrial fibrillation on Xarelto CAD who presents to the hospital due to complaint of shortness of breath. Patient currently lives at [facility] detention facility. Reportedly patient has been also utilizing oxygen at detention facility. Shortness of breath Acute hypoxic respiratory failure Suspect pneumonia Leukocytosis likely secondary to above CT chest does show large right pleural effusion with compressive atelectasis of the right lung Multiple patchy subpleural groundglass opacities in the right upper lobe 1.8 cm spiculated subpleural nodule in right upper lobe Start vancomycin, cefepime Check procalcitonin Check an MRSA nasal swab Check Legionella urine antigen Check urine strep antigen Continue oxygen supplementation Continue DuoNebs Pulmonary consulted from emergency department chronic medical medical conditions Diabetes mellitus-order insulin sliding scale Atrial fibrillation-resume home Xarelto Hypertension Hyperlipidemia -Resume home medications when able CKD- Monitor BMP DVT prophylaxis-Xarelto
[2025-04-07 22:30] VITALS: BP 104/60; PULSE 71; RESP 12; O2SAT 100
--- NOTE | 2025-04-07 22:50 | PC.NURSE ---
report called to Sandra AHUMADA
[2025-04-07 22:52] VITALS: BP 100/46; PULSE 83; RESP 19; O2SAT 100
--- NOTE | 2025-04-07 22:58 | PC.NURSE ---
Patient arrived to floor via stretcher from ED at 22:55.
[2025-04-07 23:01] VITALS: BP 100/96; PULSE 83; RESP 19; TEMP 36.7; O2SAT 100
[2025-04-07 23:33] VITALS: BP 101/57; PULSE 97; RESP 20; TEMP 36.8; O2SAT 97
[2025-04-08] VITALS (7 sets, daily range): BP systolic 97–112; BP diastolic 58–74; PULSE 68–102; RESP 12–18; TEMP 36.4–36.7; O2SAT 98–100; BMI 27.4
[2025-04-08] MEDS: VANCOMYCIN CONSULT REQUEST 1 EACH NOTAPPLIC (00:19)
[2025-04-08 01:08] LABS: Troponin I < 0.01 ng/ml (0.00-0.034)
--- NOTE | 2025-04-08 02:16 | PC.NURSE ---
Pt is new admit this shift. AOx4, pleasant. Currently on 3L O2. Diminished lung sounds. Skin c/d/i with some scattered bruising to BUE and abdomen. Daughter states that these bruises are from the pt's previous hospital stay around 2 weeks ago. VSS. Currently resting in bed with eyes closed. Respirations even and unlabored. Bed is low, locked, and call light is in reach.
[2025-04-08 04:32] LABS: Troponin I < 0.01 ng/ml (0.00-0.034)
[2025-04-08 05:45] LABS: POC Glucose,Bedside 324 (70-110)
[2025-04-08 06:29] LABS: Hematocrit 29.2 % (37.0-47.0); Hemoglobin 9.3 g/dL (12.2-16.2); Immature Granulocytes % 0.6 %; Mean Corpuscular HGB Conc 31.8 g/dL (31.8-35.4); Mean Corpuscular Hemoglobin 28.0 pg (27.0-31.2); Mean Corpuscular Volume 88.0 fl (81-99); Nucleated Red Blood Cells % 0 %; Platelet Count 139 K/mm3 (142-424); Red Blood Count 3.32 M/mm3 (4.20-5.40); Red Cell Distribution Width-SD 57.1 fL; White Blood Count 9.4 K/mm3 (4.8-10.8)
[2025-04-08] MEDS: CEFEPIME HCL 2 GM in 0.9 % SODIUM CHLORIDE 100 ML IV ×2 (06:30→19:40)
[2025-04-08 06:43] LABS: Anion Gap 16.6 mEq/L (5-15); Blood Urea Nitrogen 52 mg/dl (7-17); Calcium 8.8 mg/dl (8.4-10.2); Carbon Dioxide 23 mmol/L (22.0-30.0); Chloride 100 mmol/L (98-107); Creatinine Clearance Estimated 37 mL/min (50-200); Creatinine,Serum 1.20 mg/dl (0.52-1.04); Estimated Glomerular Filt Rate 42 ml/min (>60); GFR (African American) 51 ML/MIN (>60); Glucose 304 mg/dl (74-100); Potassium 4.6 mmoL/L (3.5-5.1); Sodium 135 mmol/L (136-145)
[2025-04-08] MEDS: humaLOG 100 UNITS/ML 10ML VIAL (SSI) SUBCUT ×3 (06:47→21:20)
[2025-04-08 07:26] LABS: Procalcitonin 0.111 ng/mL (0.0-2.0)
--- NOTE | 2025-04-08 08:20 | P.PN_ITS ---
Subjective *Date: 04/08/25 *Time: 21:15 Interval history: Patient on 3 to 4 L oxygen this morning. Has a rhonchorous cough. Alert and oriented x 3 but appears fatigued. Daughter at bedside. Extensive discussion about goals and treatment. Would like to pursue thoracentesis. Also wants to focus on comfort and quality. Strong concern patient's showing progressive decline over the past several months. Family would like to treat current condition if possible but is cautious about risk and wants to make sure that patient is comfortable and quality of life is being taken into consideration with decisions of treatment. - No nausea or vomiting today. Afebrile Medical Exam Vital signs and Labs for Last 24 Hours: Vital Signs Temp Pulse Pulse Resp BP BP Pulse Ox 04/08/25 06:39 04/08/25 05:00 04/08/25 04:00 98.0 F 102 H 17 107/58 L 99 04/08/25 03:00 04/08/25 01:00 04/07/25 23:33 98.2 F 97 H 20 101/57 L 97 04/07/25 23:01 98.0 F 83 19 100/96 L 04/07/25 23:00 04/07/25 22:52 83 19 100/46 L 100 04/07/25 22:30 71 12 104/60 L 100 04/07/25 22:18 04/07/25 22:00 79 17 105/65 L 100 04/07/25 20:42 98.2 F 108 H 17 112/66 97 O2 Del Method O2 Flow Rate 04/08/25 06:39 Nasal Cannula 3 04/08/25 05:00 Nasal Cannula 3 04/08/25 04:00 Nasal Cannula 04/08/25 03:00 Nasal Cannula 3 04/08/25 01:00 Nasal Cannula 2 04/07/25 23:33 Nasal Cannula 3 04/07/25 23:01 Room Air 04/07/25 23:00 Nasal Cannula 2 04/07/25 22:52 04/07/25 22:30 04/07/25 22:18 Nasal Cannula 2 04/07/25 22:00 04/07/25 20:42 Room Air Intake and Output 04/07/25 04/08/25 04/08/25 23:59 07:59 15:59 Output Total 300 / 300 Balance -300 / -300 Output: Output, Urine Amount 300 / 300 Other: Number of Unmeasured Voids 0 Weight 86.183 kg 70.216 kg Patient Weight 04/08/25 23:59 Weight 70.216 kg Laboratory Results - last 24 hr 04/07/25 00:13: Troponin I < 0.01 04/07/25 20:30: Sodium 132 L, Potassium 5.3 H, Chloride 100, Carbon Dioxide 21 L , Anion Gap 16.3 H, BUN 55 H, Creatinine 1.10 H, Estimated Creat Clear 49, Estimated GFR 47 L, Est GFR ( Amer) 57 L, Glucose 198 H, Calcium 8.5, Total Bilirubin 1.1, AST 51 H, ALT 17, Alkaline Phosphatase 167 H, Troponin I < 0.01, NT-Pro-B Natriuret Pep 5490 H, Total Protein 6.8, Albumin 3.4 L, Globulin 3.4 H, Albumin/Globulin Ratio 1.0 L 04/07/25 20:50: WBC 11.7 H, RBC 3.27 L, Hgb 9.3 L, Hct 28.9 L, MCV 88.4, MCH 28.4, MCHC 32.2, RDW 17.7 H, Plt Count 165, MPV 10.7 H, Neut % (Auto) 83.4 H, Lymph % (Auto) 8.0 L, [place] % (Auto) 6.8, Eos % (Auto) 0.8, Baso % (Auto) 0.3, Neut # (Auto) 9.7 H, Lymph # (Auto) 0.9, [place] # (Auto) 0.8, Eos # (Auto) 0.1, Baso # (Auto) 0.0 04/07/25 20:52: VBG pH 7.40, VBG pCO2 32.7 L, VBG pO2 92.5 H, VBG HCO3 20.0 L, VBG Total CO2 21.0 L, VBG O2 Saturation 96.6 H, VBG Base Excess -4.8 L, VBG Lactic Acid 1.9 04/07/25 22:00: SARS-CoV-2 (PCR) Not detected, Influenza A Untype (PCR) Not detected, Influenza Type B (PCR) Not detected 04/08/25 03:21: Troponin I < 0.01 04/08/25 05:38: POC Glucose 324 H* 04/08/25 06:20: WBC 9.4, RBC 3.32 L, Hgb 9.3 L, Hct 29.2 L, MCV 88.0, MCH 28.0, MCHC 31.8, RDW 17.9 H, Plt Count 139 L, MPV 9.5, Neut % (Auto) 84.2 H, Lymph % (Auto) 7.1 L, [place] % (Auto) 6.7, Eos % (Auto) 1.0, Baso % (Auto) 0.4, Neut # (Auto) 7.9 H, Lymph # (Auto) 0.7, [place] # (Auto) 0.6, Eos # (Auto) 0.1, Baso # (Auto) 0.0, Sodium 135 L, Potassium 4.6, Chloride 100, Carbon Dioxide 23, Anion Gap 16.6 H, BUN 52 H, Creatinine 1.20 H, Estimated Creat Clear 37, Estimated GFR 42 L, Est GFR ( Amer) 51 L, Glucose 304 H D, Calcium 8.8, Procalcitonin 0.111 I & O for Labs for Last 24 Hours: Intake & Output 04/05/25 04/06/25 04/07/25 04/08/25 23:59 23:59 23:59 23:59 Output Total 300 / 300 Balance -300 / -300 Weight 86.183 kg 70.216 kg Constitutional: Present mild distress, average body habitus, chronically ill appearing and cooperative Comment:: Fatigued but interactive Head: Present atraumatic and normocephalic ENT: Present normal exam Comment:: Nystagmus Respiratory: Present crackles (Right lung base) and normal respiratory effort; Absent prolonged expiratory phase, rhonchi or wheezes Comment:: Absent breath sounds in the left lung field. Egophony in left lung field Cardiac: Present Tachycardia Comment:: Irregularly irregular GI: Present soft and normal bowel sounds; Absent distention or tenderness Extremities: Present normal inspection, full ROM and edema (2+ to knees) Skin: Present intact; Absent erythema Neuro: Present Grossly Intact, alert, awake, oriented x 3 and moves all extremities Comment:: Vision impaired Assessment and Plan *Assessment and plan (1) Acute respiratory failure with hypoxia: Status: Acute Category: Medical Code(s): J96.01 - Acute respiratory failure with hypoxia (2) Rhinovirus infection: Status: Acute Category: Medical Code(s): B34.8 - Other viral infections of unspecified site (3) Pneumonia: Status: Acute Category: Medical Code(s): J18.9 - Pneumonia, unspecified organism (4) Diabetes mellitus, type 2: Status: Acute Qualifiers: Diabetes mellitus complication detail: with other circulatory complications Diabetes mellitus complication status: with circulatory complication Diabetes mellitus shelter insulin use: with shelter use Qualified Code(s): E11.59 - Type 2 diabetes mellitus with other circulatory complications; Z79.4 - terminal make up operator (current) use of insulin Category: Medical Code(s): E11.9 - Type 2 diabetes mellitus without complications (5) Atrial fibrillation: Status: Acute Qualifiers: Atrial fibrillation type: unspecified chronic Qualified Code(s): I48.20 - Chronic atrial fibrillation, unspecified Category: Medical Code(s): I48.91 - Unspecified atrial fibrillation (6) LLL pneumonia: Status: Acute Category: Medical Code(s): J18.9 - Pneumonia, unspecified organism (7) Parapneumonic effusion: Status: Acute Category: Medical Code(s): J18.9 - Pneumonia, unspecified organism; J91.8 - Pleural effusion in other conditions classified elsewhere (8) Hypoxic respiratory failure: Status: Acute Category: Medical Code(s): J96.91 - Respiratory failure, unspecified with hypoxia (9) COPD (chronic obstructive pulmonary disease): Status: Acute Category: Medical Code(s): J44.9 - Chronic obstructive pulmonary disease, unspecified (10) Severe protein-calorie malnutrition: Status: Acute Category: Medical Code(s): E43 - Unspecified severe protein-calorie malnutrition (11) Chronic Kidney Disease: Status: Acute Qualifiers: Chronic kidney disease stage: unspecified stage Qualified Code(s): N18.9 - Chronic kidney disease, unspecified Category: Medical Code(s): N18.9 - Chronic kidney disease, unspecified (12) Cirrhosis: Status: Acute Qualifiers: Ascites presence: with ascites Hepatic cirrhosis type: unspecified hepatic cirrhosis Qualified Code(s): K74.60 - Unspecified cirrhosis of liver; R18.8 - Other ascites Category: Medical Code(s): K74.60 - Unspecified cirrhosis of liver (13) Pacemaker: Status: Chronic Category: Medical Code(s): Z95.0 - Presence of cardiac pacemaker Plan Kareen Mallory is an 89-year-old female who presented from [facility] for worsening shortness of breath. Was just admitted and discharged a week ago with pneumonia secondary to rhinovirus. Imaging in the ER showed complete collapse of left lung with large pleural effusion. On 3 to 4 L oxygen at this time. Family at bedside. Continues to require inpatient management. Pulmonology to evaluate in the morning and discuss thoracentesis. Problems addressed as follows: #Sepsis #Left lower lobe community-acquired pneumonia #COPD exacerbation # Pleural effusion #Weakness ? Presented with increased shortness of breath. Per my review of CT he has large left-sided pleural effusion with near-total collapse of left lung. Differential includes parapneumonic, CHF, empyema. - Pulmonology consulted to evaluate patient in the morning. Anticipate thoracentesis in the morning - Continue cefepime 2 g twice daily and vancomycin IV. Monitor for toxicity with kidney function monitoring daily - White count improved to 9.4. Down from 11 on admission. Hemoglobin 9.3. Repeat CBC, CMP, magnesium ordered for the morning. - Pro-Haris 0.11 - Wean supplemental oxygen as needed for goal sats greater 90%. Currently on 3 to 4 L. #THANH on CKD stage III #Uremia ? Creatinine 1.2, BUN 52. Improved from recent admission a week ago. Potassium 4.6 #HFpEF #A-fib ? Administer Bumex 1 mg IV once today. Continue spironolactone 50 mg daily - BUN elevated at 5500 on admission. Troponins negative x 3 ? Continue metoprolol titrate 25 mg twice daily, Xarelto held, last dose on the evening of April 06 #SUMMERS cirrhosis? Stable at this time #CAD with stents? Continue Plavix, statin. #Hypothyroidism? Continue home levothyroxine. #Anxiety/depression? Continue home sertraline. Full code Holding anticoagulation in the setting of planned thoracentesis Cardiac diet
--- NOTE | 2025-04-08 08:44 | EXP.PHA.CONS ---
Pharmacy Consult Date: 04/08/25 Time: 08:44 Referring provider: DR. MCKEON Reason for Consult:: VANCOMYCIN DOSING Allergies Allergy/AdvReac Type Severity Reaction Status Date / Time methylprednisolone AdvReac Mild Elevated Verified 04/04/25 10:12 glucose Home Medications ?Medication ?Instructions ?Recorded ?Confirmed ?Type levothyroxine 50 mcg tablet 50 mcg PO DAILY 10/13/24 04/08/25 History mirabegron 25 mg tablet,extended 25 mg PO DAILY 10/13/24 04/08/25 History release 24 hr (Myrbetriq) omeprazole 40 mg capsule,delayed 40 mg PO DAILY 10/13/24 04/08/25 History release rivaroxaban 15 mg tablet (Xarelto) 15 mg PO HS 10/13/24 04/08/25 History sertraline 100 mg tablet 100 mg PO DAILY 10/13/24 04/08/25 History lactulose 20 gram/30 mL oral 10 g (15 mL) PO BID 30 days #900 mL 10/18/24 04/04/25 Rx solution polyethylene glycol 3350 17 17 g PO DAILY #510 grams 10/18/24 04/08/25 Rx gram/dose oral powder (Miralax) sodium bicarbonate 325 mg tablet 325 mg PO BID 30 days #60 tabs 10/18/24 04/08/25 Rx insulin glargine 100 unit/mL (3 15 unit (0.15 mL) SQ BID 60 days 11/14/24 04/08/25 Rx mL) subcutaneous pen (Lantus #18 mL Solostar U-100 Insulin) budesonide 160 mcg-glycopyr 9 2 inh inhalation BID #10.7 grams 01/16/25 04/08/25 Rx mcg-formot 4.8 mcg/actuation HFA inhaler (Breztri Aerosphere) clopidogrel 75 mg tablet 75 mg PO DAILY 01/17/25 04/08/25 History insulin lispro 100 unit/mL 0 sliding scale dose SQ TID 01/17/25 04/08/25 History subcutaneous pen (Humalog KwikPen (U-100) Insulin) lidocaine 4 % topical patch 1 patch topical DAILY 01/17/25 04/08/25 History (Lidocaine Pain Relief) mecobalamin (vitamin B12) 5,000 5,000 mcg PO DAILY 01/17/25 04/08/25 History mcg chewable tablet metolazone 5 mg tablet 5 mg PO DAILY 01/17/25 04/04/25 History Held on 03/30/25. Instructions: Consider resuming if patient develops edema spironolactone 25 mg tablet 50 mg (2 x 25 mg) PO DAILY 30 days 01/19/25 04/08/25 Rx Held on 03/30/25. #60 tabs Instructions: Resume if develops edema artificial 1 drp Eye-Left TID 02/27/25 04/08/25 History tears(hnmgthd-jcvpcxnl-ortbiet) 0.1 %-0.3 %-0.2 % eye drops atorvastatin 40 mg tablet 40 mg PO HS 02/27/25 04/08/25 History ferrous gluconate 324 mg (38 mg 324 mg PO BID 02/27/25 04/08/25 History iron) tablet fluticasone propionate 50 1 spray intranasal DAILY 02/27/25 04/08/25 History mcg/actuation nasal spray,suspension furosemide 40 mg tablet (Lasix) 40 mg PO BID 02/27/25 04/04/25 History Held on 03/30/25. Instructions: Resume if develops edema guaifenesin 100 mg/5 mL oral 200 mg PO Q6 PRN Cough 02/27/25 04/08/25 History liquid (Daksha-Tussin) prochlorperazine maleate 5 mg 2.5 mg (1/2 x 5 mg) PO TID PRN 02/27/25 04/08/25 Rx tablet (Compazine) nausea and vomiting #30 tabs levalbuterol HCl 1.25 mg/3 mL 1.25 mg (3 mL) inhalation BID 30 03/30/25 04/08/25 Rx solution for nebulization days #180 mL levofloxacin 750 mg tablet 750 mg PO DAILY 1 day #1 tab 03/30/25 04/04/25 Rx metoclopramide HCl 5 mg tablet 5 mg PO AC 30 days #90 tabs 03/30/25 04/08/25 Rx metoprolol tartrate 50 mg tablet 50 mg PO BID 30 days #60 tabs 03/30/25 04/08/25 Rx hydrocodone 7.5 mg-acetaminophen 1 tab PO QID pain #120 tabs 04/03/25 04/08/25 Rx 325 mg tablet New Prescriptions to Start Prescriptions: Height: 1.6 m Weight: 70.216 kg Laboratory Results:: Laboratory Results - last 24 hr 04/07/25 00:13: Troponin I < 0.01 04/07/25 20:30: Sodium 132 L, Potassium 5.3 H, Chloride 100, Carbon Dioxide 21 L, Anion Gap 16.3 H, BUN 55 H, Creatinine 1.10 H, Estimated Creat Clear 49, Estimated GFR 47 L, Est GFR ( Amer) 57 L, Glucose 198 H, Calcium 8.5, Total Bilirubin 1.1, AST 51 H, ALT 17, Alkaline Phosphatase 167 H, Troponin I < 0.01, NT-Pro-B Natriuret Pep 5490 H, Total Protein 6.8, Albumin 3.4 L, Globulin 3.4 H, Albumin/Globulin Ratio 1.0 L 04/07/25 20:50: WBC 11.7 H, RBC 3.27 L, Hgb 9.3 L, Hct 28.9 L, MCV 88.4, MCH 28.4, MCHC 32.2, RDW 17.7 H, Plt Count 165, MPV 10.7 H, Neut % (Auto) 83.4 H, Lymph % (Auto) 8.0 L, [place] % (Auto) 6.8, Eos % (Auto) 0.8, Baso % (Auto) 0.3, Neut # (Auto) 9.7 H, Lymph # (Auto) 0.9, [place] # (Auto) 0.8, Eos # (Auto) 0.1, Baso # (Auto) 0.0 04/07/25 20:52: VBG pH 7.40, VBG pCO2 32.7 L, VBG pO2 92.5 H, VBG HCO3 20.0 L, VBG Total CO2 21.0 L, VBG O2 Saturation 96.6 H, VBG Base Excess -4.8 L, VBG Lactic Acid 1.9 04/07/25 22:00: SARS-CoV-2 (PCR) Not detected, Influenza A Untype (PCR) Not detected, Influenza Type B (PCR) Not detected 04/08/25 03:21: Troponin I < 0.01 04/08/25 05:38: POC Glucose 324 H* 04/08/25 06:20: WBC 9.4, RBC 3.32 L, Hgb 9.3 L, Hct 29.2 L, MCV 88.0, MCH 28.0, MCHC 31.8, RDW 17.9 H, Plt Count 139 L, MPV 9.5, Neut % (Auto) 84.2 H, Lymph % (Auto) 7.1 L, [place] % (Auto) 6.7, Eos % (Auto) 1.0, Baso % (Auto) 0.4, Neut # (Auto) 7.9 H, Lymph # (Auto) 0.7, [place] # (Auto) 0.6, Eos # (Auto) 0.1, Baso # (Auto) 0.0, Sodium 135 L, Potassium 4.6, Chloride 100, Carbon Dioxide 23, Anion Gap 16.6 H, BUN 52 H, Creatinine 1.20 H, Estimated Creat Clear 37, Estimated GFR 42 L, Est GFR ( Amer) 51 L, Glucose 304 H D, Calcium 8.8, Procalcitonin 0.111 Medical History: Medical History (Updated 04/08/25 @ 08:21 by Armando Greer MD) Pneumonia Acute respiratory failure with hypoxia Bilateral leg edema Acute on chronic heart failure with preserved ejection fraction (HFpEF) COPD (chronic obstructive pulmonary disease) Major depressive disorder with single episode Heart failure Myocardial infarct, old Pacemaker Hypothyroid Fall Chronic Kidney Disease Splenomegaly Cirrhosis of liver Ascites Seasonal allergies Hyperlipemia Hypertension Aneurysm of splenic artery Acute hyperkalemia Arthritis History of gastroesophageal reflux (GERD) Diabetes mellitus, type 2 History of cataract History of left heart catheterization (LHC) Gastritis PAF (paroxysmal atrial fibrillation) DKA (diabetic ketoacidosis) Lactose intolerance 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 Drug selected: Vancomycin Loading dose (mg): Vd (liters): 56.2 (factor used: 0.8 L/kg) Dre (hr-1): 0.027 Half life (hrs): 25.67 CLvanco=?? 1.517 L/hr Recommended dose: 1250 mg Interval: 36 hrs Infusion time (hrs): 2.0 Predicted peak (mcg/mL): 34.8 Predicted trough (mcg/mL): 13.90 Total body weight is being used for vancomycin dosing. Recommendations: Give Vancomycin 1250 mg q 36 hrs with an expected Cpeak of 34.8 mcg/ml and an expected Ctrough of 13.90 mcg/ml AUC 0-24 /ZUHAIR Data: ZUHAIR 0.5 mcg/mL:?? AUC/ZUHAIR:? 1098.7 ZUHAIR 1.0 mcg/mL:?? AUC/ZUHAIR:? 549.3 --------- ZUHAIR 1.5 mcg/mL:?? AUC/ZUHAIR:? 366.2 ZUHAIR 2.0 mcg/mL:?? AUC/ZUHAIR:? 274.7 Thank you for the consult, will continue to follow. -PINO RIBERAD
[2025-04-08] MEDS: ARTIFICIAL TEARS SOLN 15ML BOTTLE OP ×3 (09:40→21:00)
[2025-04-08] MEDS: BUMETANIDE 1MG/4ML VIAL 1 MG IV (09:40)
[2025-04-08] MEDS: LEVOTHYROXINE 50MCG (0.05MG) TAB 50 MCG PO (09:41)
[2025-04-08] MEDS: FLUTICASONE PROP 50MCG NASAL SPRAY 16GM 1 SPRAY NS (09:41)
[2025-04-08] MEDS: CLOPIDOGREL 75MG TAB 75 MG PO (09:42)
[2025-04-08] MEDS: POLYETHYLENE GLYCOL 3350 17 GM PACKET PO (09:42)
[2025-04-08] MEDS: SPIRONOLACTONE 25MG TABLET 50 MG PO (09:42)
[2025-04-08] MEDS: SERTRALINE 100MG TABLET 100 MG PO (09:42)
[2025-04-08] MEDS: METOPROLOL TARTRATE 50MG TABLET 50 MG PO ×2 (09:42→21:00)
[2025-04-08] MEDS: SODIUM BICARBONATE 650MG TABLET 325 MG PO ×2 (09:43→21:00)
[2025-04-08] MEDS: INSULIN GLARGINE 100 UNITS/ML 3ML FLEXPEN 15 UNIT SUBCUT ×2 (09:49→21:20)
--- NOTE | 2025-04-08 11:15 | P.CONPHA_ITS ---
Pharmacy Intervention Comments: MEDICATION RECONCILIATION COMPLETED ON PATIENT USING [facility] AND DISCHARGE SUMMARY FROM PREVIOUS ADMISSION. -PINO RIBERAD
--- NOTE | 2025-04-08 11:15 | HMH.PHAINT1 ---
Pharmacy Intervention Comments: MEDICATION RECONCILIATION COMPLETED ON PATIENT USING [facility] ASSISTED AND DISCHARGE SUMMARY FROM PREVIOUS ADMISSION. -PINO RIBERAD
[2025-04-08] MEDS: APAP/HYDROCODONE 325MG/7.5MG TAB 1 TAB PO ×3 (11:18→21:00)
[2025-04-08] MEDS: LEVALBUTEROL 1.25MG/3ML NEB 1.25 MG IH ×2 (13:36→23:13)
[2025-04-08 14:50] LABS: POC Glucose,Bedside 185 (70-110)
[2025-04-08] MEDS: PANTOPRAZOLE 40MG TABLET 40 MG PO (21:00)
[2025-04-08] MEDS: ATORVASTATIN 40MG TABLET 40 MG PO (21:00)
[2025-04-08 21:23] LABS: POC Glucose,Bedside 211 (70-110)
[2025-04-09] VITALS (12 sets, daily range): BP systolic 90–110; BP diastolic 53–84; PULSE 72–124; RESP 14–21; TEMP 36.4–37.7; O2SAT 93–99; BMI 27.3
--- NOTE | 2025-04-09 04:15 | PC.NURSE ---
Patient is alert and oriented x4. She was observed to have eyes closed, respirations even and unlabored on 2 L of oxygen via nasal cannula, and no apparent distress throughout the majority of the night. Patient reports having a loose, nonproductive cough; despite receiving breathing treatments, the patient reports having difficulty with expelling sputum. Sputum sample remains uncollected thus far. Expiratory rhonchi and diminished lung sounds were heard upon auscultation. Oxygen saturations > 90%. Abdomen is round, non-tender, and ascitic. Aspiration precautions taken. Oral medications were given with vanilla pudding to aid in easier swallowing. Patient refused to be turned by nursing staff this shift, stating that she breathes better when lying supine; she has been positioned/adjusted upright according to her comfort level. Skin issues were documented appropriately in this shift's biophysical. Nystagmus noted to both eyes. Mild swelling noted to upper/lower extremities. Patient requires vast assistance during any transfers. A purewick remains in place to monitor urine output; a brief is in place for defecation needs. Dr Jil emanuel (despite diabetic education, the patient refused Diet sodas) and chicken noodle soup consumed by patient. [facility] glucose checks performed. At this time, the patient is resting in bed without any further complaints. No new needs thus far. Call light within reach.
[2025-04-09 05:52] LABS: POC Glucose,Bedside 114 (70-110)
[2025-04-09] MEDS: LEVALBUTEROL 1.25MG/3ML NEB 1.25 MG IH ×4 (06:30→23:51)
[2025-04-09] MEDS: CEFEPIME HCL 2 GM in 0.9 % SODIUM CHLORIDE 100 ML IV ×2 (06:39→18:15)
[2025-04-09] MEDS: LEVOTHYROXINE 50MCG (0.05MG) TAB 50 MCG PO (06:39)
[2025-04-09 07:53] LABS: Hematocrit 29.6 % (37.0-47.0); Hemoglobin 9.3 g/dL (12.2-16.2); Immature Granulocytes % 0.6 %; Mean Corpuscular HGB Conc 31.4 g/dL (31.8-35.4); Mean Corpuscular Hemoglobin 28.0 pg (27.0-31.2); Mean Corpuscular Volume 89.2 fl (81-99); Nucleated Red Blood Cells % 0 %; Platelet Count 130 K/mm3 (142-424); Red Blood Count 3.32 M/mm3 (4.20-5.40); Red Cell Distribution Width-SD 58.9 fL; White Blood Count 9.3 K/mm3 (4.8-10.8)
--- NOTE | 2025-04-09 08:05 | PC.NURSE ---
patient wants daughter to feed her at 0900, refused feeding from me.
--- NOTE | 2025-04-09 09:15 | HMH.OTEV ---
OT Inpatient Evaluation Rehab OT IP Evaluation Start: 04/08/25 08:17 Freq: ONCE Status: Active Protocol: Document 04/09/25 09:07 BHUPINDER (Rec: 04/09/25 09:14 BHUPINDER [id number]) Rehab OT IP Assessment Subjective History Per HPI narrative: Patient is an 89-year-old female presents today with shortness of breath. She has recently been in the hospital discharged about 10 days ago she had a dense consolidation her left lower lobe was treated with IV antibiotics and transition to oral Levaquin. She subsequently went to [facility] and was not on home oxygen according to family members are at the bedside however she was getting breathing treatments. Patient states she has been having a very significant and worsening time breathing last several days. According to the family member Dr. Crowe has been keeping a close eye on her oxygen and it was dropping into the 80s and she has been intermittently getting some supplemental oxygen at the prison. Patient states that she has been unable to breathe until she was placed on oxygen by EMS. [place] to EMS there was an initial oxygen saturation reportedly in the 70s prior to their evaluation and by the time they got her on 3 L her oxygen saturations were in the mid 90s she was also given a breathing treatment. Patient states she is breathing much better now. Also earlier in the day she states that she felt very warm and was having a drenching body sweat. No objective fever. Patient continues to have a cough. Completed antibiotic several days ago. Subjective I just want to go home. Pt supine in bed when therapy arrived. Pt agreed to participate in initial OT eval this morning. Pt orient x3. Pt reported they live in single story home with no steps. Pt reports they have a shower chair and family are putting grab bars in. pt reports son stays with her at night and 2 daughters take turn during days and is not alone at all times. pt reports they do not drive. pt reports not norm on O2 and is currently on 1 L O2. pt reports they are ind in ADLs and can complete IADLs, but family does assist. Pt agreeable to sit on EOB. Pt went from supine to EOB with Mod A x1. Pt able to tolerate sitting on EOB with CGA and hold static sitting balance for aprox 1 minute. Pt reported they would like to stay in bed. pt went from EOB to supine with Mod A x1. pt left with call light and all other needs within reach. Objective Patient Orientation Person,Place,Birthday Right Upper Min Limitation <25% Extremity Gross ROM Left Upper Extremity Min Limitation <25% Gross ROM Shoulder ROM Muscle Weakness Limitations Elbow ROM Muscle Weakness Limitations Bed Mobility bed mobility-scooting,bed mobility - supine/sit Assist Level Moderate x 1 (50% assist) Decrease in Yes Endurance Rehab OT IP prob,goals,plan Problems Date of Evaluation: 04/09/25 OT IP Problems Bed Mobility,Transfers,Balance,Self care,Safety Rehab Potential Rehab Potential Good Equipment Needs Assistive Devices Standard Walker,Rolling / Wheeled Walker Plan OT intervention Plan Bed Mobility,Transfers,Balance,Self care,Safety, Therapeutic Exercise OT Plan Frequency Daily Duration LOS Discharge Goals Bed Mobility Ability Standby Assistance Sit to Stand Chair Minimal x 1 (25% assist) Transfer Ability Chair Transfer Minimal x 1 (25% assist) Ability Chair Transfer Sit to/from Ambulatory Technique Chair Transfer Standard Walker,Rolling Walker Assistive Devices Feeding Ability Assist with Tray Set Up Commode/Toilet Raised Toilet Seat,Grab Bars Transfer Assistive Devices Decrease in No Endurance Discharge Plan OT Discharge Plan At this time, pt presents below baseline and would benefit from skilled acute OT services and interventions while admitted at [facility]. Pt would benefit from rehab placement once DC from [facility] for skilled OT services and interventions to further address functional decline. If pt improves significantly and has 24/7 care and assist, pt could go home with OT HH services and interventions. Eval Complexity Eval Charge Codes 53020 - Moderate Complexity PHYSICIAN CERTIFICATION: I certify the specified therapy services for Kareen Mallory are required, authorized, and reviewed every 30 days.
--- NOTE | 2025-04-09 09:24 | EXP.PULM.CON ---
History of Present Illness History of present illness: Ms. Mallory is a 89-year-old female recently seen in the hospital when admitted for A-fib RVR pneumonia heart failure exacerbation discharged to [facility] on levofloxacin presented to the hospital again today with worsening respiratory distress pulmonary was called for further evaluation. [facility] Disclaimer: The information contained in this section may have been updated after the patient was seen, as this information can be updated by other users. Medical History (Updated 04/09/25 @ 10:49 by Connie Bates MD) Pleural effusion, bilateral Pneumonia Acute respiratory failure with hypoxia Bilateral leg edema Acute on chronic heart failure with preserved ejection fraction (HFpEF) COPD (chronic obstructive pulmonary disease) Major depressive disorder with single episode Heart failure Myocardial infarct, old Pacemaker Hypothyroid Fall Chronic Kidney Disease Splenomegaly Cirrhosis of liver Ascites Seasonal allergies Hyperlipemia Hypertension Aneurysm of splenic artery Acute hyperkalemia Arthritis History of gastroesophageal reflux (GERD) Diabetes mellitus, type 2 History of cataract History of left heart catheterization (LHC) Gastritis PAF (paroxysmal atrial fibrillation) DKA (diabetic ketoacidosis) Lactose intolerance 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 Anemia Cardiac pacemaker in situ SSS (sick sinus syndrome) Coronary artery disease Surgical History Hx of cardiac cath Closed intertrochanteric fracture of left hip (~10/2024) History of esophagogastroduodenoscopy (EGD) Hx of tonsillectomy History of colonoscopy History of hysterectomy History of appendectomy History of cholecystectomy Family History Other Family history of cancer Social History Smoking Status: Unknown if ever smoked second hand exposure: No alcohol intake: never substance use type: denies use current occupational status: disabled Travel in the last 8 weeks?: None household members: family housing: house caffeine: No Have you lived/traveled outside [place] in past 30 days?: No Contact w/someone who lives/traveled outside US past 30 days?: No Exposure to someone with infectious disease in past 14 days?: No Do you have a fever (greater than 100.4 F or 38 C)?: No Have you tested positive for COVID-19?: No Exposed to someone with COVID-19 in past 14 days?: No Do you have a sore throat?: No Do you have a cough?: No Do you have any weakness?: No Do you have any diarrhea?: No Are you experiencing any unusual bleeding?: No Do you have any muscle aches/pain?: No Do you have any abdominal pain?: No Are you experiencing loss of taste or smell?: No Review of Systems Constitutional Constitutional: Reports anorexia, Reports body ache(s), Reports fatigue and Reports lethargy Eyes Eyes: Denies eye discharge, Denies dry eyes, Denies irritation and Denies itchy eyes ENT Ears, Nose, Mouth, and Throat: Denies epistaxis, Denies facial pain, Denies lip swelling and Denies throat swelling *Cardiovascular Cardiovascular: Reports dyspnea, Reports dyspnea on exertion, Reports leg edema and Reports orthopnea *Respiratory Respiratory: Denies change in phlegm color, Reports chest congestion, Reports cough, Reports dyspnea, Reports dyspnea on exertion, Denies excessive phlegm production, Denies hemoptysis, Denies pain on inspiration and Denies pain with cough *Gastrointestinal Gastrointestinal: Denies abdominal pain, Denies belching and Denies cramping *Musculoskeletal Musculoskeletal: Reports back pain, Reports myalgias and Reports other (No small joint swelling or Pain) Psychiatric Psychiatric: Denies homicidal ideation and Denies suicidal ideation Endocrine Endocrine: Reports fatigue and Denies heat intolerance Hematologic/Lymphatic Hematologic/Lymphatic: Denies easy bleeding and Denies lymphadenopathy Allergic/Immunologic Allergic/Immunologic: Denies itchy eyes, Denies lip swelling and Denies throat swelling Pulmonology Exam Inpatient Vital signs and Labs for Last 24 Hours: Temp Pulse Resp BP Pulse Ox O2 Del Method O2 Flow Rate 97.7 F 95 H 16 103/84 L 97 Nasal Cannula 1 04/09/25 08:00 04/09/25 08:00 04/09/25 08:00 04/09/25 08:00 04/09/25 08:00 04/09/25 08:00 04/09/25 07:58 Laboratory Results - last 24 hr 04/08/25 11:42: POC Glucose 185 H 04/08/25 21:14: POC Glucose 211 H 04/09/25 05:44: POC Glucose 114 H 04/09/25 07:45: WBC 9.3, RBC 3.32 L, Hgb 9.3 L, Hct 29.6 L, MCV 89.2, MCH 28.0, MCHC 31.4 L, RDW 18.2 H, Plt Count 130 L, MPV 9.6, Neut % (Auto) 83.6 H, Lymph % (Auto) 7.7 L, Rooks % (Auto) 6.5, Eos % (Auto) 1.2, Baso % (Auto) 0.4, Neut # (Auto) 7.8, Lymph # (Auto) 0.7, Rooks # (Auto) 0.6, Eos # (Auto) 0.1, Baso # (Auto) 0.0 I & O for Labs for Last 24 Hours: Intake & Output 04/06/25 04/07/25 04/08/25 04/09/25 23:59 23:59 23:59 23:59 Intake Total 370 / 810 440 / 440 Output Total 1225 / 1450 225 / 225 Balance -855 / -640 215 / 215 Weight 190 lb 154 lb 12.8 oz 154 lb 6.4 oz Microbiology Reports for the Last 24 Hours: Microbiology 04/07/25 21:39 Blood Blood Culture - Preliminary NO GROWTH AFTER 24 HOURS 04/07/25 21:29 Blood Blood Culture - Preliminary NO GROWTH AFTER 24 HOURS Constitutional: Present moderate distress Head: Present normocephalic and atraumatic ENT: Present normal exam, normal oropharynx and mucous membranes moist Neck: Present normal inspection and full ROM Respiratory: Present respiratory distress, rhonchi, distant breath sounds, diminished air movement and able to speak in complete sentences; Absent prolonged expiratory phase or wheezes Cardiac: Present S1/S2 and radial pulses present GI: Present soft and distention; Absent tenderness or guarding Rectal (female): Present deferred (female): Present deferred Skin: Present intact; Absent cyanosis or jaundice Neuro: Present alert and awake Extremities: Present normal inspection; Absent clubbing or cyanosis Psychiatric: Present unable to assess Meds Home Medications and Allergies Home Medications ?Medication ?Instructions ?Recorded ?Confirmed ?Type levothyroxine 50 mcg tablet 50 mcg PO DAILY 10/13/24 04/08/25 History mirabegron 25 mg tablet,extended 25 mg PO DAILY 10/13/24 04/08/25 History release 24 hr (Myrbetriq) omeprazole 40 mg capsule,delayed 40 mg PO DAILY 10/13/24 04/08/25 History release rivaroxaban 15 mg tablet (Xarelto) 15 mg PO HS 10/13/24 04/08/25 History sertraline 100 mg tablet 100 mg PO DAILY 10/13/24 04/08/25 History lactulose 20 gram/30 mL oral 10 g (15 mL) PO BID 30 days #900 mL 10/18/24 04/08/25 Rx solution polyethylene glycol 3350 17 17 g PO DAILY #510 grams 10/18/24 04/08/25 Rx gram/dose oral powder (Miralax) sodium bicarbonate 325 mg tablet 325 mg PO BID 30 days #60 tabs 10/18/24 04/08/25 Rx insulin glargine 100 unit/mL (3 15 unit (0.15 mL) SQ BID 60 days 11/14/24 04/08/25 Rx mL) subcutaneous pen (Lantus #18 mL Solostar U-100 Insulin) budesonide 160 mcg-glycopyr 9 2 inh inhalation BID #10.7 grams 01/16/25 04/08/25 Rx mcg-formot 4.8 mcg/actuation HFA inhaler (Breztri Aerosphere) clopidogrel 75 mg tablet 75 mg PO DAILY 01/17/25 04/08/25 History insulin lispro 100 unit/mL 0 sliding scale dose SQ TID 01/17/25 04/08/25 History subcutaneous pen (Humalog KwikPen (U-100) Insulin) lidocaine 4 % topical patch 1 patch topical DAILY 01/17/25 04/08/25 History (Lidocaine Pain Relief) mecobalamin (vitamin B12) 5,000 5,000 mcg PO DAILY 01/17/25 04/08/25 History mcg chewable tablet artificial 1 drp Eye-Left TID 02/27/25 04/08/25 History tears(ybmhnur-wlovaohl-bnqifkb) 0.1 %-0.3 %-0.2 % eye drops atorvastatin 40 mg tablet 40 mg PO HS 02/27/25 04/08/25 History ferrous gluconate 324 mg (38 mg 324 mg PO BID 02/27/25 04/08/25 History iron) tablet fluticasone propionate 50 1 spray intranasal DAILY 02/27/25 04/08/25 History mcg/actuation nasal spray,suspension guaifenesin 100 mg/5 mL oral 200 mg PO Q6HP PRN Cough 02/27/25 04/08/25 History liquid (Daksha-Tussin) prochlorperazine maleate 5 mg 2.5 mg (1/2 x 5 mg) PO TID PRN 02/27/25 04/08/25 Rx tablet (Compazine) nausea and vomiting #30 tabs levalbuterol HCl 1.25 mg/3 mL 1.25 mg (3 mL) inhalation BID 30 03/30/25 04/08/25 Rx solution for nebulization days #180 mL metoclopramide HCl 5 mg tablet 5 mg PO AC 30 days #90 tabs 03/30/25 04/08/25 Rx metoprolol tartrate 50 mg tablet 50 mg PO BID 30 days #60 tabs 03/30/25 04/08/25 Rx hydrocodone 7.5 mg-acetaminophen 1 tab PO QID pain #120 tabs 04/03/25 04/08/25 Rx 325 mg tablet New Prescriptions to Start Prescriptions: Allergies Allergy/AdvReac Type Severity Reaction Status Date / Time methylprednisolone AdvReac Mild Elevated Verified 04/04/25 10:12 glucose Results Laboratory Findings 04/09/25 07:45 04/09/25 07:45 Abnormal lab findings: Abnormal Labs 04/07/25 04/07/25 04/07/25 20:30 20:50 20:52 WBC 11.7 H RBC 3.27 L Hgb 9.3 L Hct 28.9 L MCHC RDW 17.7 H Plt Count MPV 10.7 H Neut % (Auto) 83.4 H Lymph % (Auto) 8.0 L Neut # (Auto) 9.7 H VBG pCO2 32.7 L VBG pO2 92.5 H VBG HCO3 20.0 L VBG Total CO2 21.0 L VBG O2 Saturation 96.6 H VBG Base Excess -4.8 L Sodium 132 L Potassium 5.3 H Carbon Dioxide 21 L Anion Gap 16.3 H BUN 55 H Creatinine 1.10 H Estimated GFR 47 L Est GFR ( Amer) 57 L Glucose 198 H POC Glucose AST 51 H Alkaline Phosphatase 167 H NT-Pro-B Natriuret Pep 5490 H Albumin 3.4 L Globulin 3.4 H Albumin/Globulin Ratio 1.0 L 04/08/25 04/08/25 04/08/25 05:38 06:20 11:42 WBC RBC 3.32 L Hgb 9.3 L Hct 29.2 L MCHC RDW 17.9 H Plt Count 139 L MPV Neut % (Auto) 84.2 H Lymph % (Auto) 7.1 L Neut # (Auto) 7.9 H VBG pCO2 VBG pO2 VBG HCO3 VBG Total CO2 VBG O2 Saturation VBG Base Excess Sodium 135 L Potassium Carbon Dioxide Anion Gap 16.6 H BUN 52 H Creatinine 1.20 H Estimated GFR 42 L Est GFR ( Amer) 51 L Glucose 304 H D POC Glucose 324 H* 185 H AST Alkaline Phosphatase NT-Pro-B Natriuret Pep Albumin Globulin Albumin/Globulin Ratio 04/08/25 04/09/25 04/09/25 21:14 05:44 07:45 WBC RBC 3.32 L Hgb 9.3 L Hct 29.6 L MCHC 31.4 L RDW 18.2 H Plt Count 130 L MPV Neut % (Auto) 83.6 H Lymph % (Auto) 7.7 L Neut # (Auto) VBG pCO2 VBG pO2 VBG HCO3 VBG Total CO2 VBG O2 Saturation VBG Base Excess Sodium Potassium Carbon Dioxide Anion Gap BUN Creatinine Estimated GFR Est GFR ( Amer) Glucose POC Glucose 211 H 114 H AST Alkaline Phosphatase NT-Pro-B Natriuret Pep Albumin Globulin Albumin/Globulin Ratio Assessment and Plan *Assessment and plan (1) Pacemaker: Status: Chronic Category: Medical Code(s): Z95.0 - Presence of cardiac pacemaker (2) Hypoxic respiratory failure: Status: Acute Category: Medical Code(s): J96.91 - Respiratory failure, unspecified with hypoxia (3) Pleural effusion, bilateral: Status: Acute Category: Medical Code(s): J90 - Pleural effusion, not elsewhere classified Plan Ms. Mallory is a 89-year-old female recently seen in the hospital when admitted for A-fib RVR pneumonia heart failure exacerbation discharged to [facility] on levofloxacin presented to the hospital again today with worsening respiratory distress pulmonary was called for further evaluation. Blood and sputum cultures from most recent admission no growth. CTA on this admission large left pleural effusion along with adjacent atelectasis. The previously noted left lower lobe consolidative changes again noted. Small right pleural effusion adjacent atelectasis also noted. Spiculated nodule along the right major fissure. The note noted effusions are not apparent on her CT abdomen from her most recent admission, did not see any ascites. The spiculated nodule not clearly visualized on her CT chest from January 2025 owing to large right pleural effusion. Prior history of large-volume paracentesis. CT abdomen from March 2024 did not reported any abnormal liver finding. Currently receiving vancomycin and cefepime for hospital-acquired pneumonia As examination moderate respiratory distress. On 1-2 L nasal cannula oxygen supplementation. Decreased breath sounds left lung loredo. Bilateral 3+ lower extremity edema. The noted bilateral pleural effusions are more likely likely from volume overload than from May parapneumonic effusion at this point of time. Plan: Scheduled for left-sided thoracentesis. Continue vancomycin and cefepime pending thoracentesis, culture results and MRSA PCR. Will wean antibiotics as tolerated. Leukocytosis improving. Continue Xopenex 4 times daily scheduled Continue oxygen supplementation to maintain O2 saturation goal of 90% and above
[2025-04-09] MEDS: POLYETHYLENE GLYCOL 3350 17 GM PACKET PO (09:26)
[2025-04-09] MEDS: VANCOMYCIN/WATER FOR INJ (PEG) 1.25 GM/250 ML PIGGYBACK IV (09:26)
[2025-04-09] MEDS: SPIRONOLACTONE 25MG TABLET 50 MG PO (09:27)
[2025-04-09] MEDS: FLUTICASONE PROP 50MCG NASAL SPRAY 16GM 1 SPRAY NS (09:27)
[2025-04-09] MEDS: METOPROLOL TARTRATE 50MG TABLET 50 MG PO ×2 (09:28→20:06)
[2025-04-09] MEDS: SODIUM BICARBONATE 650MG TABLET 325 MG PO ×2 (09:28→20:05)
[2025-04-09] MEDS: SERTRALINE 100MG TABLET 100 MG PO (09:28)
[2025-04-09] MEDS: CLOPIDOGREL 75MG TAB 75 MG PO (09:28)
[2025-04-09] MEDS: APAP/HYDROCODONE 325MG/7.5MG TAB 1 TAB PO ×4 (09:28→20:06)
[2025-04-09] MEDS: INSULIN GLARGINE 100 UNITS/ML 3ML FLEXPEN 15 UNIT SUBCUT ×2 (09:30→20:05)
[2025-04-09] MEDS: ARTIFICIAL TEARS SOLN 15ML BOTTLE OP ×3 (09:30→20:04)
[2025-04-09 09:36] LABS: Alanine Aminotransferase 13 U/L (12-78); Albumin Level 3.1 g/dl (3.5-5.0); Albumin/Globulin Ratio 1.0 (1.1-1.8); Alkaline Phosphatase 151 U/L (38-126); Anion Gap 16.8 mEq/L (5-15); Aspartate Amino Transferase 35 U/L (14-36); Bilirubin,Total 0.9 mg/dl (0.2-1.3); Blood Urea Nitrogen 49 mg/dl (7-17); Calcium 8.6 mg/dl (8.4-10.2); Carbon Dioxide 21 mmol/L (22.0-30.0); Chloride 103 mmol/L (98-107); Creatinine Clearance Estimated 40 mL/min (50-200); Creatinine,Serum 1.10 mg/dl (0.52-1.04); Estimated Glomerular Filt Rate 47 ml/min (>60); GFR (African American) 57 ML/MIN (>60); Globulin 3.0 g/dL (1.3-3.2); Glucose 124 mg/dl (74-100); Magnesium 1.7 mg/dl (1.6-2.3); Potassium 4.8 mmoL/L (3.5-5.1); Sodium 136 mmol/L (136-145); Total Protein,Serum 6.1 g/dl (6.3-8.2)
--- NOTE | 2025-04-09 09:57 | US_ITS ---
FINAL REPORT CLINICAL HISTORY: large Lt pleural effusion,diagnostic therapeutic -- lt thoracentesis -- mitch becerra -- 950 ml FINDINGS: ULTRASOUND-GUIDED THORACENTESIS HISTORY: Pleural effusion. ATTENDING PHYSICIAN: Dr. Morelos PHYSICIAN CAMP DIRECTOR: Mitch Lovelace PA-C TECHNIQUE: Informed consent was obtained from the patient. The indications and complications were discussed with the patient prior to beginning the procedure. This included, but was not limited to pain, bleeding, infection, and pneumothorax requiring chest tube placement. The left back was then prepped and draped in sterile fashion. 1% Lidocaine was used for local anesthesia. Utilizing sonographic guidance, a standard thoracentesis needle and sheath were inserted into the pleural space and approximately 950 mL of clear pleural fluid was successfully removed without complication. The patient tolerated the procedure well. IMPRESSION: Technically successful sonographic guided left-sided thoracentesis as above. Reviewed, Interpreted and Dictated by Tremayne Morelos MD Transcribed by RENNY Feng Authenticated and [facility]
--- NOTE | 2025-04-09 10:42 | PC.NURSE ---
Patient went down to radiology at 1024
--- NOTE | 2025-04-09 10:46 | HMH.PTEV ---
Physical Therapy Evaluation Rehab PT IP Evaluation Start: 04/08/25 08:17 Freq: ONCE Status: Active Protocol: Document 04/09/25 10:41 KI (Rec: 04/09/25 10:46 KI [id number]) Subjective/History History History 89-year-old female with past medical history of COPD GERD, diabetes mellitus, CKD, cirrhosis of liver, hypertension hyperlipidemia paroxysmal atrial fibrillation on Xarelto CAD who presents to the hospital due to complaint of shortness of breath. Patient currently lives at [facility] prison facility. Reportedly patient has been also utilizing oxygen at prison facility. Pt reports she lives at SNF and requires assistance for all mobility at baseline. She reports she has been non- ambulatory for years and generally requires a w/c for any mobility. Subjective Subjective Pt reports she feels tired and SOA with any exertion, but does agree to mobility assessment. [facility] How much help from another person do you currently need... Turning from your A little back to your side while in a flat bed without using bedrails? Moving from lying on A lot back to sitting on the side of a flat bed without using bedrails? Moving to and from a A lot bed to a chair ( including a wheelchair)? Standing up from a A lot chair using your arms? (e.g., wheelchair, bedside chair) Walking in hospital Total room? Climbing 3-5 steps Total with a railing? Mobility Score [address] [facility] Mobility 4 Move to chair/commode Mobility Calculator Rehab PT IP Eval Objective Appearance Patient Behavior Appropriate Patient Orientation Person,Place,Time Difficulty following none instructions Speech Pattern Clear Ambulation Patient Able to No Ambulate Balance Ability to Arise Able, uses arms to help Sitting Balance Leans or slides in chair Standing Balance Unsteady Dynamic Sitting Poor Balance Ability Dynamic Standing Poor Balance Ability Transfers Bed Transfer Ability Maximum x 1 (75% assist) Chair Transfer Maximum x 2 (75% assist) Ability Sit to Stand Bed Maximum x 1 (75% assist) Transfer Ability Sit to Stand Chair Maximum x 1 (75% assist) Transfer Ability Rehab PT IP prob,goals,plan Problems Date of Evaluation: 04/09/25 PT IP Problems Bed Mobility,Transfers Rehab Potential Rehab Potential Good Plan PT Intervention Plan Bed Mobility,Transfers,Therapeutic Exercise PT Plan Frequency Daily Duration LOS Discharge Goals Bed Transfer Ability Moderate x 1 (50% assist) Sit to Stand Chair Moderate x 2 (50% assist) Transfer Ability Discharge Plan PT Discharge Plan Pt is currently most appropriate for return to SNF for rehab once medically stable for d/c. Skilled acute therapy is indicated to increased strength and transfer ability in order to return pt to PLOF. Eval Complexity Eval Charge Codes 86823 - High Complexity PHYSICIAN CERTIFICATION: I certify the specified therapy services for Kareen Mallory are required, authorized, and reviewed every 30 days.
--- NOTE | 2025-04-09 11:15 | XR_ITS ---
FINAL REPORT CLINICAL HISTORY: POST THORA COMPARISON: 04/08/2025 FINDINGS: 2 views of the chest were obtained . The heart is enlarged. The pacemaker is in place. The mediastinum is within normal limits. There is a small left pleural effusion seen on the lateral view. Lungs are clear. There is no pneumothorax. Osseous structures are unremarkable. IMPRESSION: No pneumothorax. Small left pleural effusion. Reviewed, Interpreted and Dictated by Tremayne Morelos MD Transcribed by Niesha Horn Authenticated and [facility]
[2025-04-09] MEDS: humaLOG 100 UNITS/ML 10ML VIAL (SSI) SUBCUT ×3 (11:20→20:05)
[2025-04-09] MEDS: BUMETANIDE 1MG/4ML VIAL 1 MG IV ×3 (11:22→20:04)
[2025-04-09 11:34] LABS: POC Glucose,Bedside 241 (70-110)
[2025-04-09 12:07] LABS: Source, Body Fld. Pleural Fluid
[2025-04-09 12:08] LABS: Appearance,Body Fld. Bloody; RBC,Body Fluid 242000 cells/uL (< 10 X 10^3); TNC,Body Fluid 523 cells/uL (< 1000); Volume,Body Fld. 950 mL
--- NOTE | 2025-04-09 12:25 | P.PN_ITS ---
Subjective *Date: 04/09/25 *Time: 22:07 Interval history: Seen after her thoracentesis today. Presented with COVID-pneumonia. Afebrile. No nausea or vomiting. Denies chest pain. Does complain of posterior left rib pain however at site of insertion. Baseline mentation. Family at bedside. Medical Exam Vital signs and Labs for Last 24 Hours: Vital Signs Temp Pulse Pulse Pulse Resp BP Pulse Ox 04/09/25 12:00 100 F H 92 H 20 110/58 L 04/09/25 11:42 80 04/09/25 11:42 78 04/09/25 10:40 04/09/25 08:00 04/09/25 08:00 97.7 F 95 H 16 103/84 L 97 04/09/25 07:58 04/09/25 07:57 04/09/25 07:00 04/09/25 06:31 77 04/09/25 06:31 78 04/09/25 06:31 97 04/09/25 05:00 04/09/25 04:00 98.4 F 72 14 107/60 L 98 04/09/25 03:00 04/09/25 01:00 04/09/25 00:10 91 H 04/09/25 00:09 73 04/09/25 00:00 97.6 F 78 14 90/53 L 96 04/08/25 23:00 04/08/25 21:00 04/08/25 20:00 04/08/25 19:45 98.1 F 77 12 100/60 L 100 04/08/25 18:55 04/08/25 17:00 04/08/25 16:00 97.7 F 75 16 97/67 L 98 04/08/25 15:00 04/08/25 13:47 70 18 04/08/25 13:36 71 04/08/25 13:36 74 04/08/25 13:00 04/08/25 13:00 97.6 F 68 16 112/74 99 O2 Del Method O2 Flow Rate 04/09/25 12:00 Non-Rebreather 04/09/25 11:42 04/09/25 11:42 04/09/25 10:40 Nasal Cannula 1 04/09/25 08:00 Nasal Cannula 1 04/09/25 08:00 Nasal Cannula 04/09/25 07:58 Nasal Cannula 1 04/09/25 07:57 Nasal Cannula 1 04/09/25 07:00 Nasal Cannula 1 04/09/25 06:31 04/09/25 06:31 04/09/25 06:31 Nasal Cannula 2 04/09/25 05:00 Nasal Cannula 2 04/09/25 04:00 Nasal Cannula 2 04/09/25 03:00 Nasal Cannula 2 04/09/25 01:00 Nasal Cannula 2 04/09/25 00:10 04/09/25 00:09 04/09/25 00:00 Nasal Cannula 2 04/08/25 23:00 Nasal Cannula 2 04/08/25 21:00 Nasal Cannula 2 04/08/25 20:00 Nasal Cannula 2 04/08/25 19:45 Nasal Cannula 2 04/08/25 18:55 Nasal Cannula 2 04/08/25 17:00 Nasal Cannula 2 04/08/25 16:00 Nasal Cannula 2 04/08/25 15:00 Nasal Cannula 2 04/08/25 13:47 04/08/25 13:36 04/08/25 13:36 04/08/25 13:00 Nasal Cannula 2 04/08/25 13:00 Nasal Cannula 3 Intake and Output 04/08/25 04/09/25 04/09/25 23:59 07:59 15:59 Intake Total 100 / 810 440 / 650 210 / 650 Output Total 325 / 1450 225 / 225 0 / 225 Balance -225 / -640 215 / 425 210 / 425 Intake: Intake, Oral Amount 100 / 810 440 / 650 210 / 650 Output: Output, Urine Amount 325 / 1450 225 / 225 0 / 225 Other: Number of Unmeasured Voids 0 0 1 Weight 70.035 kg Patient Weight 04/09/25 23:59 Weight 70.035 kg Laboratory Results - last 24 hr 04/08/25 11:42: POC Glucose 185 H 04/08/25 21:14: POC Glucose 211 H 04/09/25 05:44: POC Glucose 114 H 04/09/25 07:45: WBC 9.3, RBC 3.32 L, Hgb 9.3 L, Hct 29.6 L, MCV 89.2, MCH 28.0, MCHC 31.4 L, RDW 18.2 H, Plt Count 130 L, MPV 9.6, Neut % (Auto) 83.6 H, Lymph % (Auto) 7.7 L, Hood % (Auto) 6.5, Eos % (Auto) 1.2, Baso % (Auto) 0.4, Neut # (Auto) 7.8, Lymph # (Auto) 0.7, Hood # (Auto) 0.6, Eos # (Auto) 0.1, Baso # (Auto) 0.0, Sodium 136, Potassium 4.8, Chloride 103, Carbon Dioxide 21 L, Anion Gap 16.8 H, BUN 49 H, Creatinine 1.10 H, Estimated Creat Clear 40, Estimated GFR 47 L, Est GFR ( Amer) 57 L, Glucose 124 H, Calcium 8.6, Magnesium 1.7, Total Bilirubin 0.9, AST 35 D, ALT 13, Alkaline Phosphatase 151 H, Total Protein 6.1 L, Albumin 3.1 L, Globulin 3.0, Albumin/Globulin Ratio 1.0 L 04/09/25 10:40: Fluid Source Pleural fluid, Fluid Volume 950, Fluid Appearance Bloody, Fluid RBC (Auto) 955733, Fld Tot Nucleated Cell 523 04/09/25 11:20: POC Glucose 241 H I & O for Labs for Last 24 Hours: Intake & Output 04/06/25 04/07/25 04/08/25 04/09/25 23:59 23:59 23:59 23:59 Intake Total 370 / 810 650 / 650 Output Total 1225 / 1450 225 / 225 Balance -855 / -640 425 / 425 Weight 86.183 kg 70.216 kg 70.035 kg Microbiology Reports for the Last 24 Hours: Microbiology 04/08/25 09:50 Sputum - Expectorated Sputum Gram Stain - Final 04/07/25 21:39 Blood Blood Culture - Preliminary NO GROWTH AFTER 24 HOURS 04/07/25 21:29 Blood Blood Culture - Preliminary NO GROWTH AFTER 24 HOURS Constitutional: Present mild distress, average body habitus, chronically ill appearing and cooperative Head: Present atraumatic and normocephalic ENT: Present normal exam Comment:: Nystagmus Respiratory: Present crackles (Left lung field) and normal respiratory effort; Absent prolonged expiratory phase, rhonchi or wheezes Comment:: Improved aeration on left side Cardiac: Present Tachycardia Comment:: Irregularly irregular GI: Present soft and normal bowel sounds; Absent distention or tenderness Extremities: Present normal inspection, full ROM and edema (2+ to lower thighs) Skin: Present intact; Absent erythema Neuro: Present Grossly Intact, alert, awake, oriented x 3 and moves all extremities Comment:: Vision impaired Assessment and Plan *Assessment and plan (1) Acute respiratory failure with hypoxia: Status: Acute Category: Medical Code(s): J96.01 - Acute respiratory failure with hypoxia (2) Pneumonia: Status: Acute Category: Medical Code(s): J18.9 - Pneumonia, unspecified organism (3) Diabetes mellitus, type 2: Status: Acute Qualifiers: Diabetes mellitus extermination supervisor insulin use: with extermination supervisor use Diabetes mellitus complication status: with circulatory complication Diabetes mellitus complication detail: with other circulatory complications Qualified Code(s): E11.59 - Type 2 diabetes mellitus with other circulatory complications; Z79.4 - intermission coordinator (current) use of insulin Category: Medical Code(s): E11.9 - Type 2 diabetes mellitus without complications (4) Atrial fibrillation: Status: Acute Qualifiers: Atrial fibrillation type: unspecified chronic Qualified Code(s): I48.20 - Chronic atrial fibrillation, unspecified Category: Medical Code(s): I48.91 - Unspecified atrial fibrillation (5) LLL pneumonia: Status: Acute Category: Medical Code(s): J18.9 - Pneumonia, unspecified organism (6) Parapneumonic effusion: Status: Acute Category: Medical Code(s): J18.9 - Pneumonia, unspecified organism; J91.8 - Pleural effusion in other conditions classified elsewhere (7) Hypoxic respiratory failure: Status: Acute Category: Medical Code(s): J96.91 - Respiratory failure, unspecified with hypoxia (8) COPD (chronic obstructive pulmonary disease): Status: Acute Category: Medical Code(s): J44.9 - Chronic obstructive pulmonary disease, unspecified (9) Severe protein-calorie malnutrition: Status: Acute Category: Medical Code(s): E43 - Unspecified severe protein-calorie malnutrition (10) Chronic Kidney Disease: Status: Acute Qualifiers: Chronic kidney disease stage: unspecified stage Qualified Code(s): N18.9 - Chronic kidney disease, unspecified Category: Medical Code(s): N18.9 - Chronic kidney disease, unspecified (11) Cirrhosis: Status: Acute Qualifiers: Hepatic cirrhosis type: unspecified hepatic cirrhosis Ascites presence: with ascites Qualified Code(s): K74.60 - Unspecified cirrhosis of liver; R18.8 - Other ascites Category: Medical Code(s): K74.60 - Unspecified cirrhosis of liver (12) Pacemaker: Status: Chronic Category: Medical Code(s): Z95.0 - Presence of cardiac pacemaker Plan Kareen Mallory is an 89-year-old female who presented from [facility] for worsening shortness of breath. Was just admitted and discharged a week ago with pneumonia secondary to rhinovirus. Imaging in the ER showed complete collapse of left lung with large pleural effusion. On 3 to 4 L oxygen at this time. Family at bedside. Continues to require inpatient management. Pulmonology to evaluate in the morning and discuss thoracentesis. Problems addressed as follows: #Sepsis #Left lower lobe community-acquired pneumonia #COPD exacerbation # Pleural effusion #Weakness ? Presented with increased shortness of breath. Per my review of CT he has large left-sided pleural effusion with near-total collapse of left lung. Differential includes parapneumonic, CHF, empyema. - Pulmonology evaluated today, discussed case. Recommend thoracentesis with IR. Continue Xopenex every 6 hours scheduled. - Continue supplemental oxygen as needed for goal sats greater 90%. Stable on 1 to 2 L with improved sensation of dyspnea after thoracentesis. - Continue cefepime 2 g twice daily and vancomycin IV. Monitor for toxicity with kidney function monitoring daily -White count normal at 9.3, hemoglobin 9.3. Repeat CBC, CMP, magnesium ordered for the morning. - Wean supplemental oxygen as needed for goal sats greater 90%. Currently on 1- 2L. #THANH on CKD stage III #Uremia ? Creatinine 1.1, BUN 49. Magnesium 1.7, potassium 4.8. Improved from recent admission a week ago #HFpEF #A-fib ? Continue spironolactone 50 mg daily - BUN elevated at 5500 on admission. Troponins negative x 3 ? Continue metoprolol titrate 25 mg twice daily, Xarelto held, last dose on the evening of April 06 - Administering Bumex 1 mg IV twice daily today. Has significant edema on exam. #SUMMERS cirrhosis? Stable at this time, identified on ultrasound from 02/14/2024 with nodularity of liver #CAD with stents? Continue Plavix, statin. #Hypothyroidism? Continue home levothyroxine. #Anxiety/depression? Continue home sertraline. Full code Holding anticoagulation in the setting of planned thoracentesis Cardiac diet
[2025-04-09 12:39] LABS: POC Glucose,Bedside 196 (70-110)
--- NOTE | 2025-04-09 12:40 | SW/DCPLANNER ---
Addendum entered by Tess Lang RN 04/13/25 16:38: Patient discharged home today with Hospice services. [facility] notified. Sariah with Hospice was notified prior to discharge. Addendum entered by Tess Lang RN 04/12/25 17:05: Patient is apparently not discharging home today r/t N/V and family concerns for possible increase in effusion. Should discharge home with hospice care soon. Addendum entered by Tess Lang RN 04/11/25 13:02: Spoke with patient and family today to discuss discharge planning needs. Patient stated that she would like to return home instead of going back to [facility], daughter is agreeable. They have both requested a hospice consult. Consult and clinical has been faxed to [facility]. CM will plan to meet with hospice and patient at bedside later this afternoon. Original Note: Patient is LTC at [facility]. Will send updates and continue to follow up until patient is ready for discharge.
[2025-04-09 13:21] LABS: Polynuclear WBC,Body Fluid 8 %
[2025-04-09 13:22] LABS: Mononuclear WBCs,Body Fluid 92 %
--- NOTE | 2025-04-09 14:48 | XR_ITS ---
FINAL REPORT CLINICAL HISTORY: increasedwheeze/rhonchi since thora COMPARISON: 03/29/2025 FINDINGS: The heart size is mildly enlarged. The mediastinum is normal. Patchy airspace opacity in the left upper and lower lobes is probably due to acute pneumonia. Chronic changes are noted. There are no pleural effusions. There is no pneumothorax. There is no osseous abnormality. IMPRESSION: Probable acute pneumonia. Reviewed, Interpreted and Dictated by Tremayne Morelos MD Transcribed by Angela Post Authenticated and [facility]
[2025-04-09] MEDS: IPRATROPIUM/ALBUTEROL 3 ML NEB IH (14:56)
[2025-04-09] MEDS: MORPHINE 2MG/ML SYRINGE 2 MG IV (15:10)
--- OUTSIDE RECORDS SUMMARY | 2025-04-09 16:10 | XMS_ITS ---
Author Name Auto Generated, Auto Generated Organization [facility] Address [address] [place] [id number] Phone [phone] Care Team Providers Care Claim Specialist Name Role Phone Hu Miller Unavailable [phone] Functional Status No Results Mental Status No [...]
--- OUTSIDE RECORDS SUMMARY | 2025-04-09 16:10 | XMS_ITS ---
Author Name Auto Generated, Auto Generated Organization [facility] Address [address] [place] [id number] Phone [phone] Care Team Providers Care Core Baker Name Role Phone AdamnayeliLizel Unavailable [phone] Functional Status Mental Status Allergies and Intolerances Encounters Medications Problems No Known Problems Social History Reason for Referral
--- OUTSIDE RECORDS SUMMARY | 2025-04-09 16:11 | XMS_ITS | Data Portability ---
Author Organization [facility] SALINA Marcial ADMIN Address [address] [place] [phone] Assessment No assessment recorded. Plan of Treatment Reminders Order Date Submit Date Provider Last Modified By Organization Details Last Modified Time Details Appointments None recorded. Lab cytology, peritoneal fluid [address] (Scheduling), [address] [facility] [address], [place], [address], 4 15:48:33 cell count w/ diff, body fluid [address] (Scheduling), [address] [place] [address] [address], [place], [address], 4 15:48:33 Referral None recorded. Procedures abdominal paracentesi s; with imaging guidance (PROC) - Standing order for paracentesi s. See fluid orders. Standing order for cell ct w/diff with every subsequent paracentesi s. Cytology just with the first. 2023 024 [email or web address] [facility] Scheduling, [address] [facility] [address], [place], [address], 4 14:39:19 Surgeries None recorded. Imaging None recorded. Medication Orders Xifaxan 550 mg tablet 2023 024 [facility], [address] [facility] [address], [place], [id number], 4 14:28:23 Patient TargetsNo targets recorded. Patient Instructions Encounter Date Encounter Id Patient Instructions Last Modified By Organization Details Last Modified Time 06/19/2024 [id number] Follow up as planned with Dr. Beverly. Return to clinic as needed. [email or web address] Not available 06/19/2024 16:53:35 Reason for Referral None Reported. Results Created Date Observation Date Name Description Value Unit Range Abnormal Flag Note LastModifiedBy Organization Detail LastModifiedTime 06/23/20 24 06/23/2024 US, abdom en No observ ation record ed. [email or web address], [place], [address], 06/23/2024 14:23:48 08/27/20 24 08/27/2024 CT, head + brain , w/o contr ast No observ ation record ed. [place] [id number] [facility], [place], [address], 09/06/2024 16:53:12 08/27/20 24 08/27/2024 CT, cervi rj spine , w/o contr ast No observ ation record ed. [facility] [address], [place], [address], 09/06/2024 16:53:33 08/27/20 24 08/27/2024 XR, chest , 2 view No observ ation record ed. [facility] [address], [place], [address], 09/06/2024 16:54:44 08/27/20 24 08/27/2024 CT, abdom en + pelvi s, w/o contr ast No observ ation record ed. [facility] [address], [place], [address], 09/06/2024 16:54:29 Result Notes None recorded. Medical [...] Available No t Available FreeStyle Kai 2 [place] USE DIRECTED FOR continuous glucose monitoring (OR [...] Address Organization Details Last Updated DateTime 4 [address].7 4 g 25.6 kg/m2 160.02 cm 97.2 [degF] 96 % 96 % 110 /min 110 /min 133/75 mm[Hg] Tamia Gonzales [place] - [facility] - [place] & [place] 4 14:25:40 Social History None recorded. Functional Status None recorded. Mental Status None recorded. Family History Nothing Reported. Medical History No medical history recorded. Gynecological HistoryNo gynecological history recorded. Obstetrics History GPAL:G 0 P 0 0 0 0 Past Encounters Encounter ID Performer Location Encounter Start Date Encounter Closed Date Diagnosis/Indication Diagnosis SNOMED-CT Code Diagnosis ICD10 Code Diagnosis Note [id number] MELLISA YEE NP [facility] [address] [facility] [address] [place] [address] 06/19/2024 14:13:53 06/19/2024 15:23:14 Cirrhosis of liver 61614402 K74.60 # Cirrhosis, decompensa lm by ascites-ci [...] g per day-Avoid alcohol, avoid NSAIDs Ascites 015811237 R18.8 Orders for standing paracentes is placed.Con tinue current diuretics as ordered. I have reservatio ns changing diuretics with kidney function. Hepatic encephalopathy 09793011 K76.82 Start xifaxan as ordered. If not [...] PLUS (MEDICARE REPLACEMENT HMO) [id number] Kareen Mallory [id number] Kareen Mallory Notes Date Note Type [...] year by a physician at [facility]. The majority of Kareen's health care providers are within [facility]. She says Kareen used alcohol heavily when she was younger, does not drink alcohol now. She was seen in the ED at [facility] on 05/24/24 for abdominal [...] is clear/yellow. 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 Her BNP was 4150. Cardiology at [facility] is following. She had a pacemaker placed in 2016, stents placed in October 2022. She is on Xarelto. PT/INR elevated. She denies symptoms of GI bleed, no jaundice or pruritus. Her daughter has noticed cognitive impairment recently, stating Kareen has been more forgetful. She has an appointment with Dr. Beverly at [facility] on 07/25/24. Her PCP recommended she be seen at our clinic today. She has been seen by Dr. Beverly in the past. MELLISA YEE, WALLY [address], [place], [address], [facility] - [place] - [place] & [place] 06/19/2024 16:53:55 OBGyn Episode No OBEpisode recorded.
--- OUTSIDE RECORDS SUMMARY | 2025-04-09 16:11 | XMS_ITS | Data Portability ---
Author Organization [facility] CRIS Elizabeth LOYALL CLOSED Address [address] [facility] [address] [place] [address] Care Team Providers Care Garden Labourer Name Role Phone [facility] Referring Provider Assessment No assessment recorded. Plan of Treatment Reminders Order Date Submit Date Provider Last Modified By Organization Details Last Modified Time Details Appointments None recorded. Lab urinalysis panel, auto 2023 0[email or web address] [facility] [address] [facility], [place], [address], 09:37:00 Referral None recorded. Procedures None recorded. Surgeries None recorded. Imaging None recorded. Medication Orders None recorded. Patient TargetsNo targets recorded. Patient Instructions Encounter Date Encounter Id Patient Instructions Last Modified By Organization Details Last Modified Time 03/02/2024 [id number] From the best I can tell Mrs. [...] Clean Catch Not Available [facility] [address] [address] [facility], [place], [address], 03/02/2024 13:52:45 03/02/20 24 03/02/2024 urina lysis panel , auto Unknown Analyte Yellow Not Available [facility] [address] [place], [address], 03/02/2024 13:52:45 03/02/20 24 03/02/2024 urina lysis panel , auto Unknown Analyte Clear Not Available [facility] [address] [place], [address], 03/02/2024 13:52:45 03/02/20 24 03/02/2024 urina lysis panel , auto Unknown Analyte 1.010 Not Available [facility] [address] [place], [address], 03/02/2024 13:52:45 03/02/20 24 03/02/2024 urina lysis panel , auto Unknown Analyte 6.0 Not Available [facility] [address] [facility], [place], [address], 03/02/2024 13:52:45 03/02/20 24 03/02/2024 urina lysis panel , auto Unknown Analyte Negati ve Not Available [facility] [address] [place], [address], 03/02/2024 13:52:45 03/02/20 24 03/02/2024 urina lysis panel , auto Unknown Analyte Negati ve Not Available [facility] [address] [place], [address], 03/02/2024 13:52:45 03/02/20 24 03/02/2024 urina lysis panel , auto Unknown Analyte Negati ve Not Available [facility] [address] [place], [address], 03/02/2024 13:52:45 03/02/20 24 03/02/2024 urina lysis panel , auto Unknown Analyte 250 mg/dl Not Available [facility] [address] [place], [address], 03/02/2024 13:52:45 03/02/20 24 03/02/2024 urina lysis panel , auto Unknown Analyte Negati ve Not Available [facility] [address] [place], [address], 03/02/2024 13:52:45 03/02/20 24 03/02/2024 urina lysis panel , auto Unknown Analyte Normal Not Available [facility] [address] [place], [address], 03/02/2024 13:52:45 03/02/20 24 03/02/2024 urina lysis panel , auto Unknown Analyte Negati ve Not Available [facility] [address] [place], [address], 03/02/2024 13:52:45 03/02/20 24 03/02/2024 urina lysis panel , auto Unknown Analyte Negati ve Not Available [facility] [address] [place], [address], 03/02/2024 13:52:45 Result Notes None recorded. Medical Equipment None Reported. Allergies Allergen ID Allergen Name Allergen Category Reaction Reaction Severity Criticality Documentation Date Start Date Code Code System Note Provider Name and Address Organization Details Recorded Time 582464 meloxicam medicatio n Not available Not available Not available 03/02/2024 66177 RxNorm Mariana MARCELINA Cotter [facility] 13:34:08 935297 aspirin medicatio n Not available Not available Not available 03/02/2024 1191 RxNorm Mariana Lee [facility] 4 13:34:12 175218 ibuprofen medicatio n Not available Not available Not available 03/02/2024 5640 RxNorm Mariana Lee [facility] 4 13:34:17 Medications Name Sig Start [...] Available No t Available FreeStyle Kai 2 [place] USE DIRECTED FOR continuous glucose monitoring active [...] Updated DateTime 03/02/2024 160.02 cm 25.3 kg/m2 15936.71 g Mariana Lee [facility] 03/02/2024 13:34:01 Social History Question Answer [...] 13:34:24 Medical History Condition Response Pacemaker Y Anemia Y Diabetes Y Thyroid Disorder Y Liver Disease Y Heart Disease Y Hypertension Y Kidney Disease Y Gynecological HistoryNo gynecological history recorded. Obstetrics History GPAL:G 0 P 0 0 0 0 Past Encounters Encounter ID Performer Location Encounter Start Date Encounter Closed Date Diagnosis/Indication Diagnosis SNOMED-CT Code Diagnosis ICD10 Code Diagnosis Note [id number] RAND WHITLOCK MD UROLOGY [facility] [address] [facility] [place] [address] 03/02/2024 13:12:03 03/02/2024 14:09:22 Dysuria 51828181 R30.0 Health Concerns Section Related Observation LastModified [...] PLUS (MEDICARE REPLACEMENT HMO) [id number] Kareen Mallory [id number] Kareen Mallory 03/08/2024 2 MEDICAID-[facility] CHOICES - FFS/TRADITIONA L Kareen Mallory [id number] Kareen Mallory Notes Date Note Type Note Provider Name and Address Organization Details Recorded Time 03/02/2024 text/html 88 yo new female is here for her h/o of kidney disease, referred by Dr. gutiérrez. RAND WHITLOCK MD [address] [place] [address], [address], [facility] 03/06/2024 09:37:28 OBGyn Episode No OBEpisode recorded.
--- OUTSIDE RECORDS SUMMARY | 2025-04-09 16:11 | XMS_ITS | Clinical Summary ---
Author Organization Healthcare Address [address] [id number] Care Team Providers Care Escort Patients Name Role Phone Alexy Rivera MD Primary Care Provider [phone] Allergies No known active allergies Medications atorvastatin [...] Continuous Glucose Sensor (FreeStyle Kai 2 Sensor) [facility] USE DIRECTED 01/24/20 24 Active fluticasone (Flonase) [...] Wellness (AWV) 1935 [facility]-Infant/Child/Adol SDOH Screenings 1935 [id number] Vaccine (#1) 1942 [facility]- SDOH Screenings 1955 [...] topic Insurance [place] MEDIC[place] Care Teams Escort Patients Relationship Specialty Start Date End Date Alexy Rivera MD [address] [place] [address] PCP - General 02/14/21
[2025-04-09 17:10] LABS: POC Glucose,Bedside 288 (70-110)
--- OUTSIDE RECORDS SUMMARY | 2025-04-09 17:11 | XMS_ITS | CCD ---
Author Organization Unknown Care Team Providers Care Pilates Instructor Name Role Phone Unavailable Primary Care Provider Unavailabl e Unavailable Chronic Care Management Unavaila ble Summary Purpose DataExchange Insurance Providers Payer name Policy type / Coverage type Covered libertarian ID Effective Begin Date Effective End Date [facility] [id number] Unknown Unknown Family History Family History data not found Medication Administered No Medication Administered data Reason For Visit No Reason For Visit data Medical Equipment No Medical Equipment data Advance Directives No Advance Directive data
--- OUTSIDE RECORDS SUMMARY | 2025-04-09 17:11 | XMS_ITS | CCD ---
Author Organization Unknown Care Team Providers Care Attending Radiologist Name Role Phone Unavailable Primary Care Provider Unavailabl e Unavailable Chronic Care Management Unavaila ble Summary Purpose DataExchange Insurance Providers Payer name Policy type / Coverage type Covered alliance party ID Effective Begin Date Effective End Date [facility] [id number] Unknown Unknown Family History Family History data not found Medication Administered No Medication Administered data Reason For Visit No Reason For Visit data Medical Equipment No Medical Equipment data Advance Directives No Advance Directive data
--- NOTE | 2025-04-09 17:19 | PC.NURSE ---
PT IS RESTING IN BED. ALERT AND ORIENTED X4. EATING AND DRINKING WELL. LUNG SOUNDS DIMINISHED WITH AUDIBLE WHEEZES. ABDOMEN SOFT WITH SOME LUQ TENDERNESS. ACTIVE BOWEL SOUNDS. 2-3+ GENERALIZED EDEMA NOTED. DIURESING FAIR. MEDICATED PER MAR FOR BACK AND LEFT RIB DISCOMFORT. WILL CONTINUE TO MONITOR.
[2025-04-09] MEDS: PANTOPRAZOLE 40MG TABLET 40 MG PO (20:06)
[2025-04-09] MEDS: ATORVASTATIN 40MG TABLET 40 MG PO (20:06)
[2025-04-10] VITALS (10 sets, daily range): BP systolic 94–109; BP diastolic 54–66; PULSE 70–105; RESP 16–20; TEMP 36.7–36.9; O2SAT 94–100; BMI 27.5
--- NOTE | 2025-04-10 04:07 | PC.NURSE ---
Addendum entered by Anne-Marie Neely RN 04/10/25 06:46: Patient has been incontinent, even with the purewick, bed soaked and had to be changed. No urine in the canister. Addendum entered by Anne-Marie Neely RN 04/10/25 06:42: Purewick on patient has not worked after several adjustments and reapplications. Original Note: Alert and oriented. Lungs sounds diminished, rhonchi noted. Generalized edema noted, 2+. 1L NC. Purewick in place. ACHS FS. Some abdominal tenderness. IV bumex given this shift. Has slept well. Call light in reach.
[2025-04-10] MEDS: LEVALBUTEROL 1.25MG/3ML NEB 1.25 MG IH ×4 (06:16→23:08)
[2025-04-10] MEDS: LEVOTHYROXINE 50MCG (0.05MG) TAB 50 MCG PO (06:26)
[2025-04-10] MEDS: CEFEPIME HCL 2 GM in 0.9 % SODIUM CHLORIDE 100 ML IV ×2 (06:26→18:02)
--- NOTE | 2025-04-10 06:40 | PC.NURSE ---
Took trash, linens, and filled water.
[2025-04-10 06:43] LABS: Hematocrit 28.0 % (37.0-47.0); Hemoglobin 9.0 g/dL (12.2-16.2); Immature Granulocytes % 0.7 %; Mean Corpuscular HGB Conc 32.1 g/dL (31.8-35.4); Mean Corpuscular Hemoglobin 28.3 pg (27.0-31.2); Mean Corpuscular Volume 88.1 fl (81-99); Nucleated Red Blood Cells % 0 %; Platelet Count 141 K/mm3 (142-424); Red Blood Count 3.18 M/mm3 (4.20-5.40); Red Cell Distribution Width-SD 57.6 fL; White Blood Count 10.2 K/mm3 (4.8-10.8)
[2025-04-10 07:36] LABS: Magnesium 1.5 mg/dl (1.6-2.3)
[2025-04-10 07:37] LABS: Alanine Aminotransferase 13 U/L (12-78); Albumin Level 3.1 g/dl (3.5-5.0); Albumin/Globulin Ratio 1.0 (1.1-1.8); Alkaline Phosphatase 124 U/L (38-126); Anion Gap 19.3 mEq/L (5-15); Aspartate Amino Transferase 47 U/L (14-36); Bilirubin,Total 1.2 mg/dl (0.2-1.3); Blood Urea Nitrogen 50 mg/dl (7-17); Calcium 8.4 mg/dl (8.4-10.2); Carbon Dioxide 22 mmol/L (22.0-30.0); Chloride 99 mmol/L (98-107); Creatinine Clearance Estimated 40 mL/min (50-200); Creatinine,Serum 1.10 mg/dl (0.52-1.04); Estimated Glomerular Filt Rate 47 ml/min (>60); GFR (African American) 57 ML/MIN (>60); Globulin 3.1 g/dL (1.3-3.2); Glucose 120 mg/dl (74-100); Potassium 5.3 mmoL/L (3.5-5.1); Sodium 135 mmol/L (136-145); Total Protein,Serum 6.2 g/dl (6.3-8.2)
[2025-04-10 08:51] LABS: POC Glucose,Bedside 223 (70-110)
[2025-04-10 08:51] LABS: POC Glucose,Bedside 129 (70-110)
--- NOTE | 2025-04-10 09:22 | P.PN_ITS ---
Subjective *Date: 04/10/25 *Time: 15:25 Interval history: No acute respiratory vents overnight. Patient admits worsening respiratory distress than yesterday. Pulmonology Exam Inpatient Vital signs and Labs for Last 24 Hours: Temp Pulse Resp BP Pulse Ox O2 Del Method O2 Flow Rate 98.3 F 77 16 94/56 L 97 Nasal Cannula 1 04/10/25 08:00 04/10/25 08:00 04/10/25 08:00 04/10/25 08:00 04/10/25 08:00 04/10/25 08:40 04/10/25 08:40 Laboratory Results - last 24 hr 04/08/25 16:52: POC Glucose 196 H 04/09/25 07:45: Sodium 136, Potassium 4.8, Chloride 103, Carbon Dioxide 21 L, Anion Gap 16.8 H, BUN 49 H, Creatinine 1.10 H, Estimated Creat Clear 40, Estimated GFR 47 L, Est GFR ( Amer) 57 L, Glucose 124 H, Calcium 8.6, Magnesium 1.7, Total Bilirubin 0.9, AST 35 D, ALT 13, Alkaline Phosphatase 151 H, Total Protein 6.1 L, Albumin 3.1 L, Globulin 3.0, Albumin/Globulin Ratio 1.0 L 04/09/25 10:40: Fluid Source Pleural fluid, Fluid Volume 950, Fluid Appearance Bloody, Fluid RBC (Auto) [id number], Fld Tot Nucleated Cell 523, Fld Polynuclear WBCs % 8, Fld Mononuclear WBCs % 92 04/09/25 11:20: POC Glucose 241 H 04/09/25 16:56: POC Glucose 288 H 04/09/25 19:37: POC Glucose 223 H 04/10/25 06:21: POC Glucose 129 H 04/10/25 06:27: WBC 10.2, RBC 3.18 L, Hgb 9.0 L, Hct 28.0 L, MCV 88.1, MCH 28.3, MCHC 32.1, RDW 17.7 H, Plt Count 141 L, MPV 10.5 H, Neut % (Auto) 81.9 H, Lymph % (Auto) 7.7 L, [place] % (Auto) 8.1, Eos % (Auto) 1.4, Baso % (Auto) 0.2, Neut # (Auto) 8.4 H, Lymph # (Auto) 0.8, [place] # (Auto) 0.8, Eos # (Auto) 0.1, Baso # (Auto) 0.0, Sodium 135 L, Potassium 5.3 H, Chloride 99, Carbon Dioxide 22, Anion Gap 19.3 H, BUN 50 H, Creatinine 1.10 H, Estimated Creat Clear 40, Estimated GFR 47 L, Est GFR ( Amer) 57 L, Glucose 120 H, Calcium 8.4, Magnesium 1.5 L D , Total Bilirubin 1.2, AST 47 H D, ALT 13, Alkaline Phosphatase 124, Total Protein 6.2 L, Albumin 3.1 L, Globulin 3.1, Albumin/Globulin Ratio 1.0 L Temp Pulse Resp BP Pulse Ox O2 Del Method O2 Flow Rate 97.7 F 95 H 16 103/84 L 97 Nasal Cannula 1 04/09/25 08:00 04/09/25 08:00 04/09/25 08:00 04/09/25 08:00 04/09/25 08:00 04/09/25 08:00 04/09/25 07:58 Laboratory Results - last 24 hr 04/08/25 11:42: POC Glucose 185 H 04/08/25 21:14: POC Glucose 211 H 04/09/25 05:44: POC Glucose 114 H 04/09/25 07:45: WBC 9.3, RBC 3.32 L, Hgb 9.3 L, Hct 29.6 L, MCV 89.2, MCH 28.0, MCHC 31.4 L, RDW 18.2 H, Plt Count 130 L, MPV 9.6, Neut % (Auto) 83.6 H, Lymph % (Auto) 7.7 L, [place] % (Auto) 6.5, Eos % (Auto) 1.2, Baso % (Auto) 0.4, Neut # (Auto) 7.8, Lymph # (Auto) 0.7, [place] # (Auto) 0.6, Eos # (Auto) 0.1, Baso # (Auto) 0.0 I & O for Labs for Last 24 Hours: Intake & Output 04/07/25 04/08/25 04/09/25 04/10/25 23:59 23:59 23:59 23:59 Intake Total 370 / 810 1245 / 1445 500 / 500 Output Total 1225 / 1450 775 / 775 0 / 0 Balance -855 / -640 470 / 670 500 / 500 Weight 190 lb 154 lb 12.8 oz 154 lb 6.4 oz 155 lb 3.2 oz Intake & Output 04/06/25 04/07/25 04/08/25 04/09/25 23:59 23:59 23:59 23:59 Intake Total 370 / 810 440 / 440 Output Total 1225 / 1450 225 / 225 Balance -855 / -640 215 / 215 Weight 190 lb 154 lb 12.8 oz 154 lb 6.4 oz Microbiology Reports for the Last 24 Hours: Microbiology 04/07/25 21:39 Blood Blood Culture - Preliminary NO GROWTH AFTER 48 HOURS 04/07/25 21:29 Blood Blood Culture - Preliminary NO GROWTH AFTER 48 HOURS 04/09/25 10:40 Pleural Fluid Gram Stain - Final 04/08/25 09:50 Sputum - Expectorated Sputum Gram Stain - Final Microbiology 04/07/25 21:39 Blood Blood Culture - Preliminary NO GROWTH AFTER 24 HOURS 04/07/25 21:29 Blood Blood Culture - Preliminary NO GROWTH AFTER 24 HOURS Constitutional: Present moderate distress Head: Present normocephalic and atraumatic ENT: Present normal exam, normal oropharynx and mucous membranes moist Neck: Present normal inspection and full ROM Respiratory: Present respiratory distress, rhonchi, distant breath sounds, diminished air movement and able to speak in complete sentences; Absent prolonged expiratory phase or wheezes Cardiac: Present S1/S2 and radial pulses present GI: Present soft and distention; Absent tenderness or guarding Rectal (female): Present deferred (female): Present deferred Skin: Present intact; Absent cyanosis or jaundice Neuro: Present alert and awake Extremities: Present normal inspection; Absent clubbing or cyanosis Psychiatric: Present unable to assess Assessment and Plan *Assessment and plan (1) Pacemaker: Status: Chronic Category: Medical Code(s): Z95.0 - Presence of cardiac pacemaker (2) Hypoxic respiratory failure: Status: Acute Category: Medical Code(s): J96.91 - Respiratory failure, unspecified with hypoxia (3) Pleural effusion, bilateral: Status: Acute Category: Medical Code(s): J90 - Pleural effusion, not elsewhere classified Plan Ms. Mallory is a 89-year-old female recently seen in the hospital when admitted for A-fib RVR pneumonia heart failure exacerbation discharged to [facility] on levofloxacin presented to the hospital again today with worsening respiratory distress pulmonary was called for further evaluation. Blood and sputum cultures from most recent admission no growth. CTA on this admission large left pleural effusion along with adjacent atelectasis. The previously noted left lower lobe consolidative changes again noted. Small right pleural effusion adjacent atelectasis also noted. Spicula lm nodule along the right major fissure. The note noted effusions are not apparent on her CT abdomen from her most recent admission, did not see any ascites. The spiculated nodule not clearly visualized on her CT chest from January 2025 owing to large right pleural effusion. Prior history of large-volume paracentesis. CT abdomen from March 2024 did not reported any abnormal liver finding. Currently receiving vancomycin and cefepime for hospital-acquired pneumonia On initial examination moderate respiratory distress. On 1-2 L nasal cannula oxygen supplementation. Decreased breath sounds left lung loredo. Bilateral 3+ lower extremity edema. Interval update: Status post left-sided thoracentesis, removed 950 cc fluid. Blood-tinged pleural fluid, not concerning for hemothorax at this point of time. Other pleural fluid studies pending. Stain no organisms seen. Chest x-ray postthoracentesis improving effusion, worsening left upper lobe infiltrates concerning for reexpansion pulmonary edema status post diuresis. Follow repeat chest x-ray. CT chest from today reviewed, continue to show predominant left upper lobe groundglass opacities. The previously noted left lower lobe airspace disease improving. She received 1 mg IV Bumex yesterday. Nasal MRSA PCR negative. Plan: Discontinue vancomycin. Continue cefepime x 7 days Continue Xopenex 4 times daily scheduled Continue oxygen supplementation to maintain O2 saturation goal of 90% and above
--- NOTE | 2025-04-10 09:29 | XR_ITS ---
FINAL REPORT TECHNIQUE: Single view chest CLINICAL HISTORY: SOB COMPARISON: 04/09/2025 FINDINGS: A single view of the chest was obtained. Pacemaker is in place. There is mild cardiomegaly. Left perihilar airspace opacity is new from prior exam and likely due to acute pneumonia. Chronic changes are seen at the right lung base. There is no pneumothorax. IMPRESSION: New left perihilar airspace opacity likely related to acute pneumonia. Reviewed, Interpreted and Dictated by Tremayne Morelos MD Transcribed by Niesha Horn Authenticated and [facility]
[2025-04-10] MEDS: SPIRONOLACTONE 25MG TABLET 50 MG PO (09:51)
[2025-04-10] MEDS: SODIUM BICARBONATE 650MG TABLET 325 MG PO ×2 (09:52→20:16)
[2025-04-10] MEDS: CLOPIDOGREL 75MG TAB 75 MG PO (09:53)
[2025-04-10] MEDS: METOPROLOL TARTRATE 50MG TABLET 50 MG PO ×2 (09:54→21:02)
[2025-04-10] MEDS: SERTRALINE 100MG TABLET 100 MG PO (09:54)
[2025-04-10] MEDS: ARTIFICIAL TEARS SOLN 15ML BOTTLE OP ×3 (09:56→20:28)
[2025-04-10] MEDS: FLUTICASONE PROP 50MCG NASAL SPRAY 16GM 1 SPRAY NS (09:56)
[2025-04-10] MEDS: INSULIN GLARGINE 100 UNITS/ML 3ML FLEXPEN 15 UNIT SUBCUT ×2 (09:57→20:17)
[2025-04-10] MEDS: POLYETHYLENE GLYCOL 3350 17 GM PACKET PO (09:57)
[2025-04-10] MEDS: APAP/HYDROCODONE 325MG/7.5MG TAB 1 TAB PO ×4 (09:58→20:27)
--- NOTE | 2025-04-10 10:20 | CT_ITS ---
FINAL REPORT TECHNIQUE: Axial imaging of the chest was obtained without contrast. Reformatted images were also obtained and reviewed.This study was performed with techniques to keep radiation doses as low as reasonably achievable, (ALARA). Individualized dose reduction technique using automated exposure control or adjustment of mA and/or kV according to the patient's size were employed. CLINICAL HISTORY: non resolving PNM COMPARISON: 04/08/2025 FINDINGS: There is streak artifact from left anterior chest wall pacemaker. Dense coronary artery calcifications are seen. There is no axillary adenopathy. There is no hilar or mediastinal mass or adenopathy. Heart size is normal. There are patchy bilateral airspace infiltrates, significantly more evident on the left than right with consolidation in the lower lobes. Small to moderate pleural effusions are seen. Left pleural effusion is significantly smaller than on prior exam. Left upper and lower lobe collapse has reexpanded. There is no pneumothorax. 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 IMPRESSION: Patchy bilateral airspace infiltrates with lower lobe consolidation. Small to moderate pleural effusions, significantly improved on the left. Reviewed, Interpreted and Dictated by Tremayne Morelos MD Transcribed by Niesha Horn Authenticated and [facility]
[2025-04-10] MEDS: humaLOG 100 UNITS/ML 10ML VIAL (SSI) SUBCUT ×2 (12:13→20:17)
[2025-04-10 12:32] LABS: POC Glucose,Bedside 324 (70-110)
[2025-04-10] MEDS: MAGNESIUM SULFATE IN WATER 2 GM/50 ML PIGGYBACK IV ×2 (14:10→15:21)
[2025-04-10] MEDS: BUMETANIDE 1 MG TABLET PO ×2 (14:17→18:02)
--- NOTE | 2025-04-10 16:11 | EXP.PN ---
Subjective *Date: 04/10/25 *Time: 16:11 Interval history: Patient looks much better than her last admission when I evaluated her. Continues to have intermittent pain at the thoracentesis site. Mentating well. Has significant lower extremity edema, worsening pulmonary edema. Started Bumex 1 mg twice daily, continue spironolactone. Will need volume optimization before dispo. Exam Data for Last 24 hours Vital signs and Labs for Last 24 Hours: Temp Pulse Resp BP Pulse Ox O2 Del Method O2 Flow Rate 98.5 F 93 H 18 101/54 L 96 Nasal Cannula 1 04/10/25 11:59 04/10/25 11:59 04/10/25 11:59 04/10/25 11:59 04/10/25 11:59 04/10/25 11:59 04/10/25 11:59 Laboratory Results - last 24 hr 04/09/25 16:56: POC Glucose 288 H 04/09/25 19:37: POC Glucose 223 H 04/10/25 06:21: POC Glucose 129 H 04/10/25 06:27: WBC 10.2, RBC 3.18 L, Hgb 9.0 L, Hct 28.0 L, MCV 88.1, MCH 28.3, MCHC 32.1, RDW 17.7 H, Plt Count 141 L, MPV 10.5 H, Neut % (Auto) 81.9 H, Lymph % (Auto) 7.7 L, [place] % (Auto) 8.1, Eos % (Auto) 1.4, Baso % (Auto) 0.2, Neut # (Auto) 8.4 H, Lymph # (Auto) 0.8, [place] # (Auto) 0.8, Eos # (Auto) 0.1, Baso # (Auto) 0.0, Sodium 135 L, Potassium 5.3 H, Chloride 99, Carbon Dioxide 22, Anion Gap 19.3 H, BUN 50 H, Creatinine 1.10 H, Estimated Creat Clear 40, Estimated GFR 47 L, Est GFR ( Amer) 57 L, Glucose 120 H, Calcium 8.4, Magnesium 1.5 L D, Total Bilirubin 1.2, AST 47 H D, ALT 13, Alkaline Phosphatase 124, Total Protein 6.2 L, Albumin 3.1 L, Globulin 3.1, Albumin/Globulin Ratio 1.0 L 04/10/25 12:11: POC Glucose 324 H* I & O for Last 24 hours: Intake & Output 04/07/25 04/08/25 04/09/25 04/10/25 23:59 23:59 23:59 23:59 Intake Total 370 / 810 1245 / 1445 860 / 860 Output Total 1225 / 1450 775 / 775 50 / 50 Balance -855 / -640 470 / 670 810 / 810 Weight 86.183 kg 70.216 kg 70.035 kg 70.398 kg Microbiology Reports for the Last 24 Hours: Microbiology 04/09/25 10:40 Pleural Fluid Gram Stain - Final 04/09/25 10:40 Pleural Fluid Body Fluid Culture - Preliminary NO GROWTH AFTER 24 HOURS 04/08/25 05:45 Nose MRSA Culture - Final Negative 04/08/25 09:50 Sputum - Expectorated Sputum Gram Stain - Final 04/08/25 09:50 Sputum - Expectorated Sputum Sputum Culture - Preliminary 04/07/25 21:39 Blood Blood Culture - Preliminary NO GROWTH AFTER 48 HOURS 04/07/25 21:29 Blood Blood Culture - Preliminary NO GROWTH AFTER 48 HOURS Constitutional Constitutional: no acute distress *Routine HEENT Exam Head: Present normocephalic Eye: Present EOMI and PERRL ENT: Present mucous membranes moist *Routine Neck Exam Neck: Present supple; Absent lymphadenopathy *Routine Respiratory Exam Respiratory: Present CTA bilaterally *Routine Cardiovascular Exam Cardiovascular: Present RRR *Routine Abdominal Exam Abdominal: Present soft and normoactive bowel sounds; Absent tenderness *Routine Extremities Exam Extremities: Present edema; Absent cyanosis or clubbing *Routine Skin Exam Skin: Present warm; Absent rash *Routine Neurological Exam Neurological: Present alert and oriented X3 Assessment and Plan *Assessment and plan (1) Acute respiratory failure with hypoxia: Status: Acute Category: Medical Code(s): J96.01 - Acute respiratory failure with hypoxia (2) Pneumonia: Status: Acute Category: Medical Code(s): J18.9 - Pneumonia, unspecified organism (3) Diabetes mellitus, type 2: Status: Acute Qualifiers: Diabetes mellitus 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 insulin use: with care home use Diabetes mellitus complication status: with circulatory complication Diabetes mellitus complication detail: with other circulatory complications Qualified Code(s): E11.59 - Type 2 diabetes mellitus with other circulatory complications; Z79.4 - shelter (current) use of insulin Category: Medical Code(s): E11.9 - Type 2 diabetes mellitus without complications (4) Atrial fibrillation: Status: Acute Qualifiers: Atrial fibrillation type: unspecified chronic Qualified Code(s): I48.20 - Chronic atrial fibrillation, unspecified Category: Medical Code(s): I48.91 - Unspecified atrial fibrillation (5) LLL pneumonia: Status: Acute Category: Medical Code(s): J18.9 - Pneumonia, unspecified organism (6) Parapneumonic effusion: Status: Acute Category: Medical Code(s): J18.9 - Pneumonia, unspecified organism; J91.8 - Pleural effusion in other conditions classified elsewhere (7) Hypoxic respiratory failure: Status: Acute Category: Medical Code(s): J96.91 - Respiratory failure, unspecified with hypoxia (8) COPD (chronic obstructive pulmonary disease): Status: Acute Category: Medical Code(s): J44.9 - Chronic obstructive pulmonary disease, unspecified (9) Severe protein-calorie malnutrition: Status: Acute Category: Medical Code(s): E43 - Unspecified severe protein-calorie malnutrition (10) Chronic Kidney Disease: Status: Acute Qualifiers: Chronic kidney disease stage: unspecified stage Qualified Code(s): N18.9 - Chronic kidney disease, unspecified Category: Medical Code(s): N18.9 - Chronic kidney disease, unspecified (11) Cirrhosis: Status: Acute Qualifiers: Hepatic cirrhosis type: unspecified hepatic cirrhosis Ascites presence: with ascites Qualified Code(s): K74.60 - Unspecified cirrhosis of liver; R18.8 - Other ascites Category: Medical Code(s): K74.60 - Unspecified cirrhosis of liver (12) Pacemaker: Status: Chronic Category: Medical Code(s): Z95.0 - Presence of cardiac pacemaker Plan Kareen Mallory is an 89-year-old female who presented from [facility] for worsening shortness of breath. Was just admitted and discharged a week ago with pneumonia secondary to rhinovirus. Imaging in the ER showed complete collapse of left lung with large pleural effusion. On 3 to 4 L oxygen at this time. Family at bedside. Continues to require inpatient management. Pulmonology to evaluate in the morning and discuss thoracentesis. Problems addressed as follows: #Sepsis #Left lower lobe community-acquired pneumonia #COPD exacerbation #Pleural effusion #Weakness ? Presented with increased shortness of breath. Per review of CT had large left-sided pleural effusion with near-total collapse of left lung. ? Pulmonology consulted, s/p thoracentesis with ~950 mL blood-tinged pleural fluid output. No evidence of pleural infection or empyema. ? Pulmonology followed up on CT chest today, shows worsening opacities which may actually represent pulmonary edema. Started daily Bumex, continue spironolactone. - Continue supplemental oxygen as needed for goal sats greater 90%. Stable on 1 to 2 L with improved sensation of dyspnea after thoracentesis. - Continue cefepime 2 g, pulmonology recommends discontinuing vancomycin. Recommend cefepime for total of 7 days. ? Follow-up respiratory culture, blood culture and pleural fluid NGTD. - WBC stable at 10.2. Continues to be intermittently tachypneic around 20, tachycardic. - Wean supplemental oxygen as needed for goal sats greater 90%. Currently on 1-2L. # Acute on chronic HFpEF #A-fib ? Started Bumex 1 mg twice daily, continue spironolactone 50 mg daily - BUN elevated at 5500 on admission. Troponins negative x 3 ? Continue metoprolol titrate 25 mg twice daily, Xarelto held, last dose on the evening of April 06. #CKD stage III #Uremia ? Creatinine 1.1, GFR 47. Stable. Significant improvement since last admission after weaning diuretics. #SUMMERS cirrhosis? Stable at this time, identified on ultrasound from 02/14/2024 with nodularity of liver. Continue home lactulose. #CAD with stents? Continue Plavix, statin. #Hypothyroidism? Continue home levothyroxine. #Anxiety/depression? Continue home sertraline. Full code Holding anticoagulation in the setting of planned thoracentesis Cardiac diet
[2025-04-10 16:30] LABS: Albumin, Body Fluid 1.5 g/dL (Not Estab.); Glucose, Body Fluid 140 mg/dL (.); LD, Body Fluid 125 IU/L (.)
[2025-04-10 18:24] LABS: POC Glucose,Bedside 178 (70-110)
[2025-04-10 20:16] LABS: POC Glucose,Bedside 240 (70-110)
[2025-04-10] MEDS: ATORVASTATIN 40MG TABLET 40 MG PO (20:16)
[2025-04-10] MEDS: PANTOPRAZOLE 40MG TABLET 40 MG PO (20:16)
[2025-04-10] MEDS: PHA TO NURSING INSTRUCTION 1 EACH NOTAPPLIC (21:41)
[2025-04-10 21:53] LABS: Vancomycin,Trough 16.4 ug/mL (5.0-10.0)
[2025-04-11] VITALS (10 sets, daily range): BP systolic 90–112; BP diastolic 47–66; PULSE 72–115; RESP 16–20; TEMP 36.4–36.9; O2SAT 91–100; BMI 29.5
--- NOTE | 2025-04-11 04:17 | PC.NURSE ---
Pt is A&Ox4. Pt is on 1L/NC. Pt has inspiratory & expiratory rhonchi upon lung sound assessment. Pt received 5 units of sliding scale at 2100 and 15 units of long acting insulin. Pt has had no significant changes and expresses no further concerns at this time. Pt resting with call light in reach. Plan of care ongoing.
[2025-04-11 05:46] LABS: POC Glucose,Bedside 169 (70-110)
[2025-04-11] MEDS: humaLOG 100 UNITS/ML 10ML VIAL (SSI) SUBCUT ×4 (06:01→20:55)
[2025-04-11] MEDS: CEFEPIME HCL 2 GM in 0.9 % SODIUM CHLORIDE 100 ML IV ×2 (06:01→17:17)
[2025-04-11] MEDS: LEVOTHYROXINE 50MCG (0.05MG) TAB 50 MCG PO (06:06)
[2025-04-11] MEDS: LEVALBUTEROL 1.25MG/3ML NEB 1.25 MG IH ×4 (06:24→23:57)
[2025-04-11 06:36] LABS: Hematocrit 27.1 % (37.0-47.0); Hemoglobin 8.6 g/dL (12.2-16.2); Immature Granulocytes % 0.6 %; Mean Corpuscular HGB Conc 31.7 g/dL (31.8-35.4); Mean Corpuscular Hemoglobin 27.8 pg (27.0-31.2); Mean Corpuscular Volume 87.7 fl (81-99); Nucleated Red Blood Cells % 0 %; Platelet Count 129 K/mm3 (142-424); Red Blood Count 3.09 M/mm3 (4.20-5.40); Red Cell Distribution Width-SD 55.9 fL; White Blood Count 9.0 K/mm3 (4.8-10.8)
[2025-04-11 06:45] LABS: Alanine Aminotransferase 14 U/L (12-78); Albumin Level 3.2 g/dl (3.5-5.0); Albumin/Globulin Ratio 1.0 (1.1-1.8); Alkaline Phosphatase 166 U/L (38-126); Anion Gap 20.4 mEq/L (5-15); Aspartate Amino Transferase 34 U/L (14-36); Bilirubin,Total 0.9 mg/dl (0.2-1.3); Blood Urea Nitrogen 50 mg/dl (7-17); Calcium 8.6 mg/dl (8.4-10.2); Carbon Dioxide 23 mmol/L (22.0-30.0); Chloride 97 mmol/L (98-107); Creatinine Clearance Estimated 36 mL/min (50-200); Creatinine,Serum 1.30 mg/dl (0.52-1.04); Estimated Glomerular Filt Rate 39 ml/min (>60); GFR (African American) 47 ML/MIN (>60); Globulin 3.2 g/dL (1.3-3.2); Glucose 158 mg/dl (74-100); Potassium 4.4 mmoL/L (3.5-5.1); Sodium 136 mmol/L (136-145); Total Protein,Serum 6.4 g/dl (6.3-8.2)
[2025-04-11 08:09] LABS: Magnesium 2.1 mg/dl (1.6-2.3)
[2025-04-11] MEDS: POLYETHYLENE GLYCOL 3350 17 GM PACKET PO (09:10)
[2025-04-11] MEDS: APAP/HYDROCODONE 325MG/7.5MG TAB 1 TAB PO ×4 (09:10→20:55)
[2025-04-11] MEDS: SODIUM BICARBONATE 650MG TABLET 325 MG PO ×2 (09:11→20:53)
[2025-04-11] MEDS: SPIRONOLACTONE 25MG TABLET 50 MG PO (09:12)
[2025-04-11] MEDS: CLOPIDOGREL 75MG TAB 75 MG PO (09:13)
[2025-04-11] MEDS: METOPROLOL TARTRATE 50MG TABLET 50 MG PO ×2 (09:13→20:51)
[2025-04-11] MEDS: SERTRALINE 100MG TABLET 100 MG PO (09:13)
[2025-04-11] MEDS: ARTIFICIAL TEARS SOLN 15ML BOTTLE OP ×3 (09:22→20:56)
[2025-04-11] MEDS: FLUTICASONE PROP 50MCG NASAL SPRAY 16GM 1 SPRAY NS (09:22)
--- NOTE | 2025-04-11 09:47 | P.PN_ITS ---
Subjective *Date: 04/11/25 *Time: 11:49 Interval history: No acute respiratory events overnight. Pulmonology Exam Inpatient Vital signs and Labs for Last 24 Hours: Temp Pulse Resp BP Pulse Ox O2 Del Method O2 Flow Rate 97.5 F L 115 H 18 94/55 L 100 Nasal Cannula 1 04/11/25 08:00 04/11/25 08:00 04/11/25 08:00 04/11/25 08:00 04/11/25 08:00 04/11/25 09:00 04/11/25 09:00 Laboratory Results - last 24 hr 04/09/25 10:40: Fluid Glucose 140, Fluid Albumin 1.5, Fluid LDH 125 04/10/25 12:11: POC Glucose 324 H* 04/10/25 18:06: POC Glucose 178 H 04/10/25 20:08: POC Glucose 240 H 04/10/25 21:06: Vancomycin Trough 16.4 H 04/11/25 05:39: POC Glucose 169 H 04/11/25 05:40: WBC 9.0, RBC 3.09 L, Hgb 8.6 L, Hct 27.1 L, MCV 87.7, MCH 27.8, MCHC 31.7 L, RDW 17.2, Plt Count 129 L, MPV 10.3, Neut % (Auto) 79.8, Lymph % (Auto) 6.9 L, [place] % (Auto) 10.5 H, Eos % (Auto) 1.8, Baso % (Auto) 0.4, Neut # (Auto) 7.2, Lymph # (Auto) 0.6 L, [place] # (Auto) 1.0, Eos # (Auto) 0.2, Baso # (Auto) 0.0, Sodium 136, Potassium 4.4, Chloride 97 L, Carbon Dioxide 23, Anion Gap 20.4 H, BUN 50 H, Creatinine 1.30 H, Estimated Creat Clear 36, Estimated GFR 39 L, Est GFR ( Amer) 47 L, Glucose 158 H D, Calcium 8.6, Magnesium 2.1 D, Total Bilirubin 0.9, AST 34 D, ALT 14, Alkaline Phosphatase 166 H, Total Protein 6.4, Albumin 3.2 L, Globulin 3.2, Albumin/Globulin Ratio 1.0 L Temp Pulse Resp BP Pulse Ox O2 Del Method O2 Flow Rate 97.7 F 95 H 16 103/84 L 97 Nasal Cannula 1 04/09/25 08:00 04/09/25 08:00 04/09/25 08:00 04/09/25 08:00 04/09/25 08:00 04/09/25 08:00 04/09/25 07:58 Laboratory Results - last 24 hr 04/08/25 11:42: POC Glucose 185 H 04/08/25 21:14: POC Glucose 211 H 04/09/25 05:44: POC Glucose 114 H 04/09/25 07:45: WBC 9.3, RBC 3.32 L, Hgb 9.3 L, Hct 29.6 L, MCV 89.2, MCH 28.0, MCHC 31.4 L, RDW 18.2 H, Plt Count 130 L, MPV 9.6, Neut % (Auto) 83.6 H, Lymph % (Auto) 7.7 L, [place] % (Auto) 6.5, Eos % (Auto) 1.2, Baso % (Auto) 0.4, Neut # (Auto) 7.8, Lymph # (Auto) 0.7, [place] # (Auto) 0.6, Eos # (Auto) 0.1, Baso # (Auto) 0.0 I & O for Labs for Last 24 Hours: Intake & Output 04/08/25 04/09/25 04/10/25 04/11/25 23:59 23:59 23:59 23:59 Intake Total 370 / 810 1245 / 1445 1060 / 1060 Output Total 1225 / 1450 775 / 775 500 / 500 550 / 550 Balance -855 / -640 470 / 670 560 / 560 -550 / -550 Weight 154 lb 12.8 oz 154 lb 6.4 oz 155 lb 3.2 oz 166 lb 11.2 oz Intake & Output 04/06/25 04/07/25 04/08/25 04/09/25 23:59 23:59 23:59 23:59 Intake Total 370 / 810 440 / 440 Output Total 1225 / 1450 225 / 225 Balance -855 / -640 215 / 215 Weight 190 lb 154 lb 12.8 oz 154 lb 6.4 oz Microbiology Reports for the Last 24 Hours: Microbiology 04/08/25 09:50 Sputum - Expectorated Sputum Gram Stain - Final 04/08/25 09:50 Sputum - Expectorated Sputum Sputum Culture - Preliminary 04/09/25 10:40 Pleural Fluid Gram Stain - Final 04/09/25 10:40 Pleural Fluid Body Fluid Culture - Preliminary NO GROWTH AFTER 24 HOURS 04/08/25 05:45 Nose MRSA Culture - Final Negative Microbiology 04/07/25 21:39 Blood Blood Culture - Preliminary NO GROWTH AFTER 24 HOURS 04/07/25 21:29 Blood Blood Culture - Preliminary NO GROWTH AFTER 24 HOURS Constitutional: Present moderate distress Head: Present normocephalic and atraumatic ENT: Present normal exam, normal oropharynx and mucous membranes moist Neck: Present normal inspection and full ROM Respiratory: Present respiratory distress, rhonchi, distant breath sounds and able to speak in complete sentences; Absent prolonged expiratory phase or wheezes Cardiac: Present S1/S2 and radial pulses present GI: Present soft and distention; Absent tenderness or guarding Rectal (female): Present deferred (female): Present deferred Skin: Present intact; Absent cyanosis or jaundice Neuro: Present alert and awake Extremities: Present normal inspection; Absent clubbing or cyanosis Psychiatric: Present unable to assess Assessment and Plan *Assessment and plan (1) Hypoxic respiratory failure: Status: Acute Category: Medical Code(s): J96.91 - Respiratory failure, unspecified with hypoxia (2) Pleural effusion, bilateral: Status: Acute Category: Medical Code(s): J90 - Pleural effusion, not elsewhere classified (3) LLL pneumonia: Status: Acute Category: Medical Code(s): J18.9 - Pneumonia, unspecified organism (4) Pneumonia: Status: Acute Category: Medical Code(s): J18.9 - Pneumonia, unspecified organism Plan Ms. Mallory is a 89-year-old female recently seen in the hospital when admitted for A-fib RVR pneumonia heart failure exacerbation discharged to [facility] on levofloxacin presented to the hospital again today with worsening respiratory distress pulmonary was called for further evaluation. Blood and sputum cultures from most recent admission no growth. CTA on this admission large left pleural effusion along with adjacent atelectasis. The previously noted left lower lobe consolidative changes again noted. Small right pleural effusion adjacent atelectasis also noted. Spiculated nodule along the right major fissure. The note noted effusions are not apparent on her CT abdomen from her most recent admission, did not see any ascites. The spiculated nodule not clearly visualized on her CT chest from January 2025 owing to large right pleural effusion. Prior history of large-volume paracentesis. CT abdomen from March 2024 did not reported any abnormal liver finding. Currently receiving vancomycin and cefepime for hospital-acquired pneumonia On initial examination moderate respiratory distress. On 1-2 L nasal cannula oxygen supplementation. Decreased breath sounds left lung l[place]. Bilateral 3+ lower extremity edema. Status post left-sided thoracentesis, removed 950 cc fluid. Blood-tinged pleural fluid, not concerning for hemothorax at this point of time. Other pleural fluid studies pending. Stain no organisms seen. Chest x-ray postthoracentesis improving effusion, worsening left upper lobe infiltrates concerning for reexpansion pulmonary edema status post diuresis. F ollow repeat chest x-ray. CT chest from today reviewed, continue to show predominant left upper lobe groundglass opacities. The previously noted left lower lobe airspace disease improving. She received 1 mg IV Bumex yesterday. Nasal MRSA PCR negative. Interval update: No acute respiratory vents overnight. Vancomycin discontinued yesterday. Continue to receive cefepime. Blood sputum and pleural fluid cultures no growth so far. Pleural fluid studies likely transudative effusion. Repeat chest x-ray from this morning improving left upper lobe pulmonary infiltrates Plan: Continue oxygen supplementation only as needed to maintain O2 saturation goal of 90% and above. Wean as tolerated. Continue cefepime x 7 days Continue Xopenex 4 times daily scheduled Continue oxygen supplementation to maintain O2 saturation goal of 90% and above Volume optimization as per primary team and cardiology Management of SUMMERS cirrhosis as per primary team. No ascitic fluid noted on this admission. Previously had large-volume paracentesis. # Thank you for involving pulmonary in this patient care. Will follow the patient in pulmonary clinic 2 weeks post discharge with a chest x-ray PA lateral.
--- NOTE | 2025-04-11 09:48 | XR_ITS ---
FINAL REPORT CLINICAL HISTORY: Shortness of breath COMPARISON: 04/10/2025 FINDINGS: The heart size is mildly enlarged. Left-sided pacer is present. The mediastinum is normal. The airspace infiltrate in the left perihilar region has significantly improved. There is a small left pleural effusion. Mild chronic changes are noted at the lung bases. There is no pneumothorax. There is no osseous abnormality. IMPRESSION: Improved left perihilar region airspace infiltrate. Small left pleural effusion. Reviewed, Interpreted and Dictated by Tremayne Morelos MD Transcribed by Angela Post Authenticated and [facility]
[2025-04-11 10:47] LABS: POC Glucose,Bedside 270 (70-110)
--- NOTE | 2025-04-11 12:47 | EXP.PHA.PN ---
Subjective *Date: 04/11/25 *Time: 12:47 Medical Exam Vital signs and Labs for Last 24 Hours: Vital Signs Temp Pulse Pulse Resp BP Pulse Ox O2 Del Method 04/11/25 12:19 Nasal Cannula 04/11/25 11:41 78 04/11/25 11:41 77 04/11/25 10:31 Nasal Cannula 04/11/25 09:00 Nasal Cannula 04/11/25 08:00 Nasal Cannula 04/11/25 08:00 97.5 F L 115 H 18 94/55 L 100 Nasal Cannula 04/11/25 06:41 Nasal Cannula 04/11/25 06:24 78 04/11/25 06:24 75 04/11/25 06:24 96 Nasal Cannula 04/11/25 05:00 Nasal Cannula 04/11/25 04:00 98.5 F 72 16 112/59 L 98 Nasal Cannula 04/11/25 03:00 Nasal Cannula 04/11/25 01:00 Nasal Cannula 04/11/25 00:00 97.5 F L 98 H 16 94/47 L 98 Nasal Cannula 04/10/25 23:09 95 H 04/10/25 23:09 97 H 04/10/25 23:00 Nasal Cannula 04/10/25 21:00 Nasal Cannula 04/10/25 20:00 Nasal Cannula 04/10/25 20:00 98.2 F 104 H 16 102/65 L 100 Nasal Cannula 04/10/25 19:00 Nasal Cannula 04/10/25 18:22 90 04/10/25 18:22 90 04/10/25 18:22 94 L Nasal Cannula 04/10/25 17:00 Nasal Cannula 04/10/25 16:00 98.1 F 104 H 20 97/54 L 97 Nasal Cannula 04/10/25 15:00 Nasal Cannula O2 Flow Rate 04/11/25 12:19 1 04/11/25 11:41 04/11/25 11:41 04/11/25 10:31 1 04/11/25 09:00 1 04/11/25 08:00 1 04/11/25 08:00 1 04/11/25 06:41 1 04/11/25 06:24 04/11/25 06:24 04/11/25 06:24 1 04/11/25 05:00 1 04/11/25 04:00 2 04/11/25 03:00 1 04/11/25 01:00 1 04/11/25 00:00 1 04/10/25 23:09 04/10/25 23:09 04/10/25 23:00 1 04/10/25 21:00 1 04/10/25 20:00 1 04/10/25 20:00 1 04/10/25 19:00 04/10/25 18:22 04/10/25 18:22 04/10/25 18:22 1 04/10/25 17:00 04/10/25 16:00 1 04/10/25 15:00 Intake and Output 04/10/25 04/11/25 04/11/25 23:59 07:59 15:59 Intake Total 200 / 1060 240 / 240 Output Total 450 / 500 550 / 700 150 / 700 Balance -250 / 560 -550 / -460 90 / -460 Intake: Intake, Oral Amount 200 / 860 240 / 240 Output: Output, Urine Amount 450 / 500 550 / 700 150 / 700 Other: Number of Voids 1 Number of Unmeasured Voids 0 Number of Bowel Movements 1 Weight 75.614 kg Patient Weight 04/11/25 23:59 Weight 75.614 kg Laboratory Results - last 24 hr 04/09/25 10:40: Fluid Glucose 140, Fluid Albumin 1.5, Fluid LDH 125 04/10/25 18:06: POC Glucose 178 H 04/10/25 20:08: POC Glucose 240 H 04/10/25 21:06: Vancomycin Trough 16.4 H 04/11/25 05:39: POC Glucose 169 H 04/11/25 05:40: WBC 9.0, RBC 3.09 L, Hgb 8.6 L, Hct 27.1 L, MCV 87.7, MCH 27.8, MCHC 31.7 L, RDW 17.2, Plt Count 129 L, MPV 10.3, Neut % (Auto) 79.8, Lymph % (Auto) 6.9 L, [place] % (Auto) 10.5 H, Eos % (Auto) 1.8, Baso % (Auto) 0.4, Neut # (Auto) 7.2, Lymph # (Auto) 0.6 L, [place] # (Auto) 1.0, Eos # (Auto) 0.2, Baso # (Auto) 0.0, Sodium 136, Potassium 4.4, Chloride 97 L, Carbon Dioxide 23, Anion Gap 20.4 H, BUN 50 H, Creatinine 1.30 H, Estimated Creat Clear 36, Estimated GFR 39 L, Est GFR ( Amer) 47 L, Glucose 158 H D, Calcium 8.6, Magnesium 2.1 D, Total Bilirubin 0.9, AST 34 D, ALT 14, Alkaline Phosphatase 166 H, Total Protein 6.4, Albumin 3.2 L, Globulin 3.2, Albumin/Globulin Ratio 1.0 L 04/11/25 10:40: POC Glucose 270 H I & O for Labs for Last 24 Hours: Intake & Output 04/08/25 04/09/25 04/10/25 04/11/25 23:59 23:59 23:59 23:59 Intake Total 370 / 810 1245 / 1445 1060 / 1060 240 / 240 Output Total 1225 / 1450 775 / 775 500 / 500 700 / 700 Balance -855 / -640 470 / 670 560 / 560 -460 / -460 Weight 70.216 kg 70.035 kg 70.398 kg 75.614 kg Microbiology Reports for the Last 24 Hours: Microbiology 04/09/25 10:40 Pleural Fluid Gram Stain - Final 04/09/25 10:40 Pleural Fluid Body Fluid Culture - Preliminary NO GROWTH AFTER 48 HOURS 04/08/25 09:50 Sputum - Expectorated Sputum Gram Stain - Final 04/08/25 09:50 Sputum - Expectorated Sputum Sputum Culture - Preliminary 04/08/25 05:45 Nose MRSA Culture - Final Negative The patient's infection will respond to the chosen ABx?: Yes Is the patient receiving the right drug, dose, and route?: Yes Could a more targeted ABx be ordered?: No (WBC WNL, AFEBRILE, NO GROWTH IN CULTURES.)
--- NOTE | 2025-04-11 14:48 | PC.NURSE ---
Aox 4, up with assistance times 2, bed alarm active, turn every two hours, meds crushed in pudding, PT AND OT following, purewick in place, fsbg achs, consult to pulmonary, CM, and hospice.
[2025-04-11 16:01] LABS: POC Glucose,Bedside 245 (70-110)
[2025-04-11 16:20] LABS: Body Fluid Culture, Sterile Not indicated. (.); Legionella pneumophila Urinary Negative (Negative); Specimen Source Urine (.)
[2025-04-11] MEDS: BUMETANIDE 1 MG TABLET PO (16:26)
[2025-04-11] MEDS: PANTOPRAZOLE 40MG TABLET 40 MG PO (20:52)
[2025-04-11] MEDS: ATORVASTATIN 40MG TABLET 40 MG PO (20:52)
[2025-04-11] MEDS: INSULIN GLARGINE 100 UNITS/ML 3ML FLEXPEN 15 UNIT SUBCUT (20:55)
[2025-04-11 21:04] LABS: POC Glucose,Bedside 218 (70-110)
--- NOTE | 2025-04-11 22:31 | EXP.PN ---
Subjective *Date: 04/11/25 *Time: 22:31 Interval history: Patient feeling much better today, best she has looked. Alert and oriented, very conversational. In very good spirits. Patient and family want to pursue hospice care, excited to take patient home. Hospice will be set up tomorrow by 12 PM at home. Discussed with pulmonology, will discharge with IM ertapenem for total of 7 days. Exam Data for Last 24 hours Vital signs and Labs for Last 24 Hours: Temp Pulse Resp BP Pulse Ox O2 Del Method O2 Flow Rate 98.1 F 73 18 90/54 L 91 L Nasal Cannula 1 04/11/25 20:00 04/11/25 20:00 04/11/25 20:00 04/11/25 20:00 04/11/25 20:00 04/11/25 21:00 04/11/25 21:00 Laboratory Results - last 24 hr 04/08/25 17:12: Fluid Culture Not indicated., Ur L.pneumophila Ag Negative, S. pneumoniae Antigen Negative, S. pneumoniae Ag Source Urine, Organism ID Not indicated. 04/11/25 05:39: POC Glucose 169 H 04/11/25 05:40: WBC 9.0, RBC 3.09 L, Hgb 8.6 L, Hct 27.1 L, MCV 87.7, MCH 27.8, MCHC 31.7 L, RDW 17.2, Plt Count 129 L, MPV 10.3, Neut % (Auto) 79.8, Lymph % (Auto) 6.9 L, [place] % (Auto) 10.5 H, Eos % (Auto) 1.8, Baso % (Auto) 0.4, Neut # (Auto) 7.2, Lymph # (Auto) 0.6 L, [place] # (Auto) 1.0, Eos # (Auto) 0.2, Baso # (Auto) 0.0, Sodium 136, Potassium 4.4, Chloride 97 L, Carbon Dioxide 23, Anion Gap 20.4 H, BUN 50 H, Creatinine 1.30 H, Estimated Creat Clear 36, Estimated GFR 39 L, Est GFR ( Amer) 47 L, Glucose 158 H D, Calcium 8.6, Magnesium 2.1 D, Total Bilirubin 0.9, AST 34 D, ALT 14, Alkaline Phosphatase 166 H, Total Protein 6.4, Albumin 3.2 L, Globulin 3.2, Albumin/Globulin Ratio 1.0 L 04/11/25 10:40: POC Glucose 270 H 04/11/25 15:54: POC Glucose 245 H 04/11/25 19:51: POC Glucose 218 H I & O for Last 24 hours: Intake & Output 04/08/25 04/09/25 04/10/25 04/11/25 23:59 23:59 23:59 23:59 Intake Total 370 / 810 1245 / 1445 1060 / 1060 820 / 820 Output Total 1225 / 1450 775 / 775 500 / 500 1100 / 1100 Balance -855 / -640 470 / 670 560 / 560 -280 / -280 Weight 70.216 kg 70.035 kg 70.398 kg 75.614 kg Microbiology Reports for the Last 24 Hours: Microbiology 04/07/25 21:39 Blood Blood Culture - Preliminary NO GROWTH AFTER 4 DAYS 04/07/25 21:29 Blood Blood Culture - Preliminary NO GROWTH AFTER 4 DAYS 04/09/25 10:40 Pleural Fluid Gram Stain - Final 04/09/25 10:40 Pleural Fluid Body Fluid Culture - Preliminary NO GROWTH AFTER 48 HOURS 04/08/25 09:50 Sputum - Expectorated Sputum Gram Stain - Final 04/08/25 09:50 Sputum - Expectorated Sputum Sputum Culture - Preliminary Assessment and Plan *Assessment and plan (1) Acute respiratory failure with hypoxia: Status: Acute Category: Medical Code(s): J96.01 - Acute respiratory failure with hypoxia (2) Pneumonia: Status: Acute Category: Medical Code(s): J18.9 - Pneumonia, unspecified organism (3) Diabetes mellitus, type 2: Status: Acute Qualifiers: Diabetes mellitus longwall machine operator helper insulin use: with longwall machine operator helper use Diabetes mellitus complication status: with circulatory complication Diabetes mellitus complication detail: with other circulatory complications Qualified Code(s): E11.59 - Type 2 diabetes mellitus with other circulatory complications; Z79.4 - jail (current) use of insulin Category: Medical Code(s): E11.9 - Type 2 diabetes mellitus without complications (4) Atrial fibrillation: Status: Acute Qualifiers: Atrial fibrillation type: unspecified chronic Qualified Code(s): I48.20 - Chronic atrial fibrillation, unspecified Category: Medical Code(s): I48.91 - Unspecified atrial fibrillation (5) LLL pneumonia: Status: Acute Category: Medical Code(s): J18.9 - Pneumonia, unspecified organism (6) Parapneumonic effusion: Status: Acute Category: Medical Code(s): J18.9 - Pneumonia, unspecified organism; J91.8 - Pleural effusion in other conditions classified elsewhere (7) Hypoxic respiratory failure: Status: Acute Category: Medical Code(s): J96.91 - Respiratory failure, unspecified with hypoxia (8) COPD (chronic obstructive pulmonary disease): Status: Acute Category: Medical Code(s): J44.9 - Chronic obstructive pulmonary disease, unspecified (9) Severe protein-calorie malnutrition: Status: Acute Category: Medical Code(s): E43 - Unspecified severe protein-calorie malnutrition (10) Chronic Kidney Disease: Status: Acute Qualifiers: Chronic kidney disease stage: unspecified stage Qualified Code(s): N18.9 - Chronic kidney disease, unspecified Category: Medical Code(s): N18.9 - Chronic kidney disease, unspecified (11) Cirrhosis: Status: Acute Qualifiers: Hepatic cirrhosis type: unspecified hepatic cirrhosis Ascites presence: with ascites Qualified Code(s): K74.60 - Unspecified cirrhosis of liver; R18.8 - Other ascites Category: Medical Code(s): K74.60 - Unspecified cirrhosis of liver (12) Pacemaker: Status: Chronic Category: Medical Code(s): Z95.0 - Presence of cardiac pacemaker Plan Kareen Mallory is an 89-year-old female who presented from [facility] for worsening shortness of breath. Was just admitted and discharged a week ago with pneumonia secondary to rhinovirus. Imaging in the ER showed complete collapse of left lung with large pleural effusion. On 3 to 4 L oxygen at this time. Family at bedside. Continues to require inpatient management. Pulmonology to evaluate in the morning and discuss thoracentesis. Problems addressed as follows: #Sepsis #Left lower lobe community-acquired pneumonia #COPD exacerbation #Pleural effusion #Weakness ? Presented with increased shortness of breath. Per review of CT had large left-sided pleural effusion with near-total collapse of left lung. ? Pulmonology consulted, s/p thoracentesis with ~950 mL blood-tinged pleural fluid output. No evidence of pleural infection or empyema. ? Pulmonology followed up on CT chest, shows worsening opacities which may actually represent pulmonary edema. Continue daily Bumex, continue spironolactone. - Continue supplemental oxygen as needed for goal sats greater 90%. Stable on 1 to 2 L with improved sensation of dyspnea after thoracentesis. - Continue cefepime 2 g, pulmonology recommends discontinuing vancomycin. Recommend cefepime for total of 7 days. ? Follow-up respiratory culture, blood culture and pleural fluid NGTD. - WBC stable at 10.2. Continues to be intermittently tachypneic around 20, tachycardic. - Wean supplemental oxygen as needed for goal sats greater 90%. Currently on 1-2L. # Acute on chronic HFpEF #A-fib ? Continue Bumex 1 mg twice daily, continue spironolactone 50 mg daily - BUN elevated at 5500 on admission. Troponins negative x 3 ? Continue metoprolol titrate 25 mg twice daily, Xarelto held, last dose on the evening of April 06. #CKD stage III #Uremia ? Creatinine 1.1, GFR 47. Stable. Significant improvement since last admission after weaning diuretics. #SUMMERS cirrhosis? Stable at this time, identified on ultrasound from 02/14/2024 with nodularity of liver. Continue home lactulose. #CAD with stents? Continue Plavix, statin. #Hypothyroidism? Continue home levothyroxine. #Anxiety/depression? Continue home sertraline. Full code Holding anticoagulation in the setting of planned thoracentesis Cardiac diet
[2025-04-12] VITALS (10 sets, daily range): BP systolic 92–138; BP diastolic 45–81; PULSE 84–111; RESP 14–21; TEMP 36.6–37.2; O2SAT 95–100; BMI 28.8
[2025-04-12] MEDS: LIDOCAINE 5% TRANSDERMAL PATCH 1 EACH TD ×2 (00:40→21:00)
--- NOTE | 2025-04-12 04:25 | PC.NURSE ---
Addendum entered by Juliana Mcdermott RN 04/12/25 06:17: A Tracy RT notified me that she is removing nasal cannula from patient. Oxygen saturation was 97% on 1 L. Patient is now on room air. Addendum entered by Juliana Mcdermott RN 04/12/25 05:32: Family Advocate notified me that the patient had an unmeasured emesis episode with belching after drinking plain water, offered by her this morning during lab draw. Zofran was administered per DEC for nausea/vomiting occurrence. Patient stated that she gets sick from drinking plain water. Pitcher with plain water removed from table, Dr Jil emanuel provided per patient's request. Original Note: Patient is alert and oriented x4. She was observed to have eyes closed, respirations even and unlabored on 1 L of oxygen via nasal cannula, and no apparent distress throughout the majority of the night. Diminished lung sounds were heard upon auscultation. Oxygen saturations > 90%. Patient's abdomen is round, firm to touch, and ascitic-appearing. Aspiration precautions ongoing. Oral medications were given with vanilla pudding to aid in easier swallowing. Patient was given a bed bath this shift. Lotion and cornstarch powder were applied to promote skin integrity. Bony prominence areas (buttocks, hips, heels, etc.) remain free of any redness or pressure injuries. Bruising on arms and abdomen documented accordingly; mild swelling noted to lower extremities. A band-aid is present on her left mid-scapula area over prior thoracentesis tap-site. A Lidocaine patch was applied underneath the patient's left breast for severe, sharp rib pain relief (new order obtained by Omero Vuong APRN this shift). [place] continues to be given as scheduled per DEC. SCDs in place for VTE prophylaxis. Patient requires vast assistance during transfers. A purewick remains in place to monitor urine output; a brief is in place for defecation needs. ACHS glucose checks performed. Soft blood pressures ongoing, Omero Vuong APRN aware. At this time, the patient is resting in bed without any further complaints. No new needs thus far. Call light within reach.
--- NOTE | 2025-04-12 04:54 | PC.NURSE ---
Ice water passed, trash and linens emptied, bedside table cleaned.
[2025-04-12] MEDS: ONDANSETRON 4MG/2ML VIAL 4 MG IV (05:30)
[2025-04-12 05:51] LABS: POC Glucose,Bedside 183 (70-110)
[2025-04-12 05:57] LABS: Hematocrit 29.9 % (37.0-47.0); Hemoglobin 9.3 g/dL (12.2-16.2); Immature Granulocytes % 0.6 %; Mean Corpuscular HGB Conc 31.1 g/dL (31.8-35.4); Mean Corpuscular Hemoglobin 27.5 pg (27.0-31.2); Mean Corpuscular Volume 88.5 fl (81-99); Nucleated Red Blood Cells % 0 %; Platelet Count 160 K/mm3 (142-424); Red Blood Count 3.38 M/mm3 (4.20-5.40); Red Cell Distribution Width-SD 56.5 fL; White Blood Count 11.0 K/mm3 (4.8-10.8)
[2025-04-12] MEDS: LEVALBUTEROL 1.25MG/3ML NEB 1.25 MG IH ×3 (06:11→18:32)
[2025-04-12] MEDS: CEFEPIME HCL 2 GM in 0.9 % SODIUM CHLORIDE 100 ML IV ×2 (06:22→18:38)
[2025-04-12] MEDS: humaLOG 100 UNITS/ML 10ML VIAL (SSI) SUBCUT ×3 (06:22→20:52)
[2025-04-12] MEDS: LEVOTHYROXINE 50MCG (0.05MG) TAB 50 MCG PO (06:22)
[2025-04-12 06:32] LABS: Alanine Aminotransferase 13 U/L (12-78); Albumin Level 3.0 g/dl (3.5-5.0); Albumin/Globulin Ratio 1.0 (1.1-1.8); Alkaline Phosphatase 166 U/L (38-126); Anion Gap 18.7 mEq/L (5-15); Aspartate Amino Transferase 30 U/L (14-36); Bilirubin,Total 0.9 mg/dl (0.2-1.3); Blood Urea Nitrogen 50 mg/dl (7-17); Calcium 8.5 mg/dl (8.4-10.2); Carbon Dioxide 23 mmol/L (22.0-30.0); Chloride 97 mmol/L (98-107); Creatinine Clearance Estimated 35 mL/min (50-200); Creatinine,Serum 1.30 mg/dl (0.52-1.04); Estimated Glomerular Filt Rate 39 ml/min (>60); GFR (African American) 47 ML/MIN (>60); Globulin 2.9 g/dL (1.3-3.2); Glucose 180 mg/dl (74-100); Potassium 4.7 mmoL/L (3.5-5.1); Sodium 134 mmol/L (136-145); Total Protein,Serum 5.9 g/dl (6.3-8.2)
--- NOTE | 2025-04-12 09:27 | EXP.PULM.PN ---
Subjective *Date: 04/12/25 *Time: 12:19 Interval history: No acute respiratory events overnight Pulmonology Exam Inpatient Vital signs and Labs for Last 24 Hours: Temp Pulse Resp BP Pulse Ox O2 Del Method O2 Flow Rate 98.1 F 109 H 16 92/45 L 95 Room Air 1 04/12/25 08:00 04/12/25 08:00 04/12/25 08:00 04/12/25 08:00 04/12/25 08:00 04/12/25 08:00 04/12/25 06:18 Laboratory Results - last 24 hr 04/08/25 17:12: Fluid Culture Not indicated., Ur L.pneumophila Ag Negative, S. pneumoniae Antigen Negative, S. pneumoniae Ag Source Urine, Organism ID Not indicated. 04/11/25 10:40: POC Glucose 270 H 04/11/25 15:54: POC Glucose 245 H 04/11/25 19:51: POC Glucose 218 H 04/12/25 05:40: POC Glucose 183 H 04/12/25 05:41: WBC 11.0 H, RBC 3.38 L, Hgb 9.3 L, Hct 29.9 L, MCV 88.5, MCH 27.5, MCHC 31.1 L, RDW 17.4, Plt Count 160, MPV 10.8 H, Neut % (Auto) 74.2, Lymph % (Auto) 11.5, [place] % (Auto) 11.8 H, Eos % (Auto) 1.5, Baso % (Auto) 0.4, Neut # (Auto) 8.2 H, Lymph # (Auto) 1.3, [place] # (Auto) 1.3 H, Eos # (Auto) 0.2, Baso # (Auto) 0.0, Sodium 134 L, Potassium 4.7, Chloride 97 L, Carbon Dioxide 23, Anion Gap 18.7 H, BUN 50 H, Creatinine 1.30 H, Estimated Creat Clear 35, Estimated GFR 39 L, Est GFR ( Amer) 47 L, Glucose 180 H, Calcium 8.5, Total Bilirubin 0.9, AST 30, ALT 13, Alkaline Phosphatase 166 H, Total Protein 5.9 L, Albumin 3.0 L, Globulin 2.9, Albumin/Globulin Ratio 1.0 L Temp Pulse Resp BP Pulse Ox O2 Del Method O2 Flow Rate 97.7 F 95 H 16 103/84 L 97 Nasal Cannula 1 04/09/25 08:00 04/09/25 08:00 04/09/25 08:00 04/09/25 08:00 04/09/25 08:00 04/09/25 08:00 04/09/25 07:58 Laboratory Results - last 24 hr 04/08/25 11:42: POC Glucose 185 H 04/08/25 21:14: POC Glucose 211 H 04/09/25 05:44: POC Glucose 114 H 04/09/25 07:45: WBC 9.3, RBC 3.32 L, Hgb 9.3 L, Hct 29.6 L, MCV 89.2, MCH 28.0, MCHC 31.4 L, RDW 18.2 H, Plt Count 130 L, MPV 9.6, Neut % (Auto) 83.6 H, Lymph % (Auto) 7.7 L, [place] % (Auto) 6.5, Eos % (Auto) 1.2, Baso % (Auto) 0.4, Neut # (Auto) 7.8, Lymph # (Auto) 0.7, [place] # (Auto) 0.6, Eos # (Auto) 0.1, Baso # (Auto) 0.0 I & O for Labs for Last 24 Hours: Intake & Output 04/09/25 04/10/25 04/11/25 04/12/25 23:59 23:59 23:59 23:59 Intake Total 1245 / 1445 1060 / 1060 820 / 1270 450 / 450 Output Total 775 / 775 500 / 500 1100 / 1700 775 / 775 Balance 470 / 670 560 / 560 -280 / -430 -325 / -325 Weight 154 lb 6.4 oz 155 lb 3.2 oz 166 lb 11.2 oz 162 lb 9.6 oz Intake & Output 04/06/25 04/07/25 04/08/25 04/09/25 23:59 23:59 23:59 23:59 Intake Total 370 / 810 440 / 440 Output Total 1225 / 1450 225 / 225 Balance -855 / -640 215 / 215 Weight 190 lb 154 lb 12.8 oz 154 lb 6.4 oz Microbiology Reports for the Last 24 Hours: Microbiology 04/07/25 21:39 Blood Blood Culture - Preliminary NO GROWTH AFTER 4 DAYS 04/07/25 21:29 Blood Blood Culture - Preliminary NO GROWTH AFTER 4 DAYS 04/09/25 10:40 Pleural Fluid Gram Stain - Final 04/09/25 10:40 Pleural Fluid Body Fluid Culture - Preliminary NO GROWTH AFTER 48 HOURS 04/08/25 09:50 Sputum - Expectorated Sputum Gram Stain - Final 04/08/25 09:50 Sputum - Expectorated Sputum Sputum Culture - Preliminary Microbiology 04/07/25 21:39 Blood Blood Culture - Preliminary NO GROWTH AFTER 24 HOURS 04/07/25 21:29 Blood Blood Culture - Preliminary NO GROWTH AFTER 24 HOURS Constitutional: Present moderate distress Head: Present normocephalic and atraumatic ENT: Present normal exam, normal oropharynx and mucous membranes moist Neck: Present normal inspection and full ROM Respiratory: Present respiratory distress, rhonchi, distant breath sounds and able to speak in complete sentences; Absent prolonged expiratory phase or wheezes Cardiac: Present S1/S2 and radial pulses present GI: Present soft and distention; Absent tenderness or guarding Rectal (female): Present deferred (female): Present deferred Skin: Present intact; Absent cyanosis or jaundice Neuro: Present alert and awake Extremities: Present normal inspection; Absent clubbing or cyanosis Psychiatric: Present unable to assess Assessment and Plan *Assessment and plan (1) Hypoxic respiratory failure: Status: Acute Category: Medical Code(s): J96.91 - Respiratory failure, unspecified with hypoxia (2) Pleural effusion, bilateral: Status: Acute Category: Medical Code(s): J90 - Pleural effusion, not elsewhere classified (3) LLL pneumonia: Status: Acute Category: Medical Code(s): J18.9 - Pneumonia, unspecified organism (4) Pneumonia: Status: Acute Category: Medical Code(s): J18.9 - Pneumonia, unspecified organism Plan Ms. Mallory is a 89-year-old female recently seen in the hospital when admitted for A-fib RVR pneumonia heart failure exacerbation discharged to [facility] on levofloxacin presented to the hospital again today with worsening respiratory distress pulmonary was called for further evaluation. Blood and sputum cultures from most recent admission no growth. CTA on this admission large left pleural effusion along with adjacent atelectasis. The previously noted left lower lobe consolidative changes again noted. Small right pleural effusion adjacent atelectasis also noted. Spiculated nodule along the right major fissure. The note noted effusions are not apparent on her CT abdomen from her most recent admission, did not see any ascites. The spiculated nodule not clearly visualized on her CT chest from January 2025 owing to large right pleural effusion. Prior history of large-volume paracentesis. CT abdomen from March 2024 did not reported any abnormal liver finding. Currently receiving vancomycin and cefepime for hospital-acquired pneumonia On initial examination moderate respiratory distress. On 1-2 L nasal cannula oxygen supplementation. Decreased breath sounds left lung loredo. Bilateral 3+ lower extremity edema. Status post left-sided thoracentesis, removed 950 cc fluid. Blood-tinged pleural fluid, not concerning for hemothorax at this point of time. Other pleural fluid studies pending. Stain no organisms seen. Chest x-ray postthoracentesis improving effusion, worsening left upper lobe infiltrates concerning for reexpansion pulmonary edema status post diuresis. Follow repeat chest x-ray. CT chest from today reviewed, continue to show predominant left upper lobe groundglass opacities. The previously noted left lower lobe airspace disease improving. She received 1 mg IV Bumex yesterday. Nasal MRSA PCR negative. Blood sputum and pleural fluid cultures no growth so far. Pleural fluid studies likely transudative effusion. Repeat chest x-ray from 04/11/25 improving left upper lobe pulmonary infiltrates Interval update: No acute respiratory vents overnight. Continue to receive cefepime to complete a total of 7-day course. Stable oxygen requirements. Plan: F/u VBG Continue oxygen supplementation only as needed to maintain O2 saturation goal of 90% and above. Wean as tolerated. Continue cefepime x 7 days, ca be weaned to Ertapenem upon discharge to facilitate hospice discharge process Continue Xopenex 4 times daily scheduled Continue oxygen supplementation to maintain O2 saturation goal of 90% and above Volume optimization as per primary team and cardiology Management of SUMMERS cirrhosis as per primary team. No ascitic fluid noted on this admission. Previously had large-volume paracentesis. # Thank you for involving pulmonary in this patient care. Will follow the patient in pulmonary clinic 2 weeks post discharge with a chest x-ray PA lateral.
[2025-04-12] MEDS: PROMETHAZINE HCL 25MG/ML 1ML VIAL 12.5 MG IV (10:16)
[2025-04-12] MEDS: SPIRONOLACTONE 25MG TABLET 50 MG PO (10:37)
[2025-04-12] MEDS: SERTRALINE 100MG TABLET 100 MG PO (10:38)
[2025-04-12] MEDS: SODIUM BICARBONATE 650MG TABLET 325 MG PO ×2 (10:38→21:02)
[2025-04-12] MEDS: CLOPIDOGREL 75MG TAB 75 MG PO (10:38)
[2025-04-12] MEDS: METOPROLOL TARTRATE 50MG TABLET 50 MG PO ×2 (10:39→21:01)
[2025-04-12] MEDS: ARTIFICIAL TEARS SOLN 15ML BOTTLE OP (10:39)
[2025-04-12] MEDS: FLUTICASONE PROP 50MCG NASAL SPRAY 16GM 1 SPRAY NS (10:41)
[2025-04-12] MEDS: BUMETANIDE 1 MG TABLET PO (10:43)
--- NOTE | 2025-04-12 16:30 | XR_ITS ---
PROCEDURE INFORMATION: Exam: XR Chest Exam date and time: 04/12/2025 4:27 PM Age: 89 years old Clinical indication: Shortness of breath; Additional info: md [place] order TECHNIQUE: Imaging protocol: Radiologic exam of the chest. Views: 1 view. COMPARISON: CR XR CHEST PORTABLE 04/11/2025 9:49 AM FINDINGS: Tubes, catheters and devices: Unchanged pacemaker leads. Lungs: Allowing for patient rotation and differences in imaging, the left lung and right upper lung opacities are most likely unchanged. The left upper lobe opacities appear mildly worse compared to prior study, but this is most likely due to rotation. The left lower lung opacities appear mildly worse, which could be increased airspace disease, atelectasis, rotation. Pleural spaces: Small pleural effusions. Heart/Mediastinum: Cardiomegaly. Vasculature: Vascular calcifications. Bones/joints: Unremarkable. IMPRESSION: 1. Allowing for patient rotation and differences in imaging, the left lung and right upper lung opacities are most likely unchanged. Mild interval worsening cannot be entirely excluded. 2. Small pleural effusions.
[2025-04-12 16:47] LABS: ABG HCO3 21.9 mmhg (22.0-26.0); ABG PCO2 33.3 mmhg (35.0-45.0); ABG PH 7.44 mmol/L (7.35-7.45); ABG PO2 94.4 mmhg (80-100); ABG TCO2 22.9 mmhg (23-27)
--- NOTE | 2025-04-12 18:10 | PC.NURSE ---
Addendum entered by Nicole Saldivar RN 04/12/25 19:04: reassed pt around 1830, pt doing well alert and oriented, awake and talking. pt asked if she could still go home tonight. vss. Original Note: pt was sleeping well on initial assessment this morning. once awake she told her daughter she was nauseous, notified md and treated with phenergan. pt was able to take her morning meds and then took a nap. around 1700 daughter came out in the [address] stating pt said she can not breath. pts face appeared flush, temp of 99.0, removed blankets off pts legs. other v/s were stable, 2l nc placed on pt at that time for comfort measures. notified. stat orders for ABG and chest xray. pt resting in bed and taking sips of dr. gómez. cb within reach, will continue to monitor.
--- NOTE | 2025-04-12 18:48 | EXP.PN ---
Subjective *Date: 04/12/25 *Time: 18:48 Interval history: Patient's somnolent, encephalopathic most of the day. Back to baseline later this afternoon. Hospital-acquired delirium, anticipate discharge home tomorrow with hospice. Exam Data for Last 24 hours Vital signs and Labs for Last 24 Hours: Temp Pulse Resp BP Pulse Ox O2 Del Method O2 Flow Rate 99.0 F 102 H 18 129/81 98 Nasal Cannula 1 04/12/25 16:00 04/12/25 18:32 04/12/25 16:00 04/12/25 16:00 04/12/25 18:32 04/12/25 18:32 04/12/25 18:32 Laboratory Results - last 24 hr 04/11/25 19:51: POC Glucose 218 H 04/12/25 05:40: POC Glucose 183 H 04/12/25 05:41: WBC 11.0 H, RBC 3.38 L, Hgb 9.3 L, Hct 29.9 L, MCV 88.5, MCH 27.5, MCHC 31.1 L, RDW 17.4, Plt Count 160, MPV 10.8 H, Neut % (Auto) 74.2, Lymph % (Auto) 11.5, [place] % (Auto) 11.8 H, Eos % (Auto) 1.5, Baso % (Auto) 0.4, Neut # (Auto) 8.2 H, Lymph # (Auto) 1.3, [place] # (Auto) 1.3 H, Eos # (Auto) 0.2, Baso # (Auto) 0.0, Sodium 134 L, Potassium 4.7, Chloride 97 L, Carbon Dioxide 23, Anion Gap 18.7 H, BUN 50 H, Creatinine 1.30 H, Estimated Creat Clear 35, Estimated GFR 39 L, Est GFR ( Amer) 47 L, Glucose 180 H, Calcium 8.5, Total Bilirubin 0.9, AST 30, ALT 13, Alkaline Phosphatase 166 H, Total Protein 5.9 L, Albumin 3.0 L, Globulin 2.9, Albumin/Globulin Ratio 1.0 L 04/12/25 16:30: ABG pH 7.44, ABG pCO2 33.3 L, ABG pO2 94.4, ABG HCO3 21.9 L, ABG Total CO2 22.9 L, ABG O2 Saturation 97, ABG Base Excess -2.3 I & O for Last 24 hours: Intake & Output 04/09/25 04/10/25 04/11/25 04/12/25 23:59 23:59 23:59 23:59 Intake Total 1245 / 1445 1060 / 1060 820 / 1270 570 / 570 Output Total 775 / 775 500 / 500 1100 / 1700 1625 / 1625 Balance 470 / 670 560 / 560 -280 / -430 -1055 / -1055 Weight 70.035 kg 70.398 kg 75.614 kg 73.754 kg Microbiology Reports for the Last 24 Hours: Microbiology 04/09/25 10:40 Pleural Fluid Gram Stain - Final 04/09/25 10:40 Pleural Fluid Body Fluid Culture - Preliminary NO GROWTH AFTER 72 HOURS 04/08/25 09:50 Sputum - Expectorated Sputum Gram Stain - Final 04/08/25 09:50 Sputum - Expectorated Sputum Sputum Culture - Final Yeast 04/07/25 21:39 Blood Blood Culture - Preliminary NO GROWTH AFTER 4 DAYS 04/07/25 21:29 Blood Blood Culture - Preliminary NO GROWTH AFTER 4 DAYS Constitutional Constitutional: no acute distress *Routine HEENT Exam Head: Present normocephalic Eye: Present EOMI and PERRL ENT: Present mucous membranes moist *Routine Neck Exam Neck: Present supple; Absent lymphadenopathy *Routine Respiratory Exam Respiratory: Present CTA bilaterally *Routine Cardiovascular Exam Cardiovascular: Present RRR *Routine Abdominal Exam Abdominal: Present soft and normoactive bowel sounds; Absent tenderness *Routine Extremities Exam Extremities: Present edema; Absent cyanosis or clubbing *Routine Skin Exam Skin: Present warm; Absent rash *Routine Neurological Exam Neurological: Present alert and oriented X3 Assessment and Plan *Assessment and plan (1) Acute respiratory failure with hypoxia: Status: Acute Category: Medical Code(s): J96.01 - Acute respiratory failure with hypoxia (2) Pneumonia: Status: Acute Category: Medical Code(s): J18.9 - Pneumonia, unspecified organism (3) Diabetes mellitus, type 2: Status: Acute Qualifiers: 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: with assisted use Diabetes mellitus complication status: with circulatory complication Diabetes mellitus complication detail: with other circulatory complications Qualified Code(s): E11.59 - Type 2 diabetes mellitus with other circulatory complications; 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 Category: Medical Code(s): E11.9 - Type 2 diabetes mellitus without complications (4) Atrial fibrillation: Status: Acute Qualifiers: Atrial fibrillation type: unspecified chronic Qualified Code(s): I48.20 - Chronic atrial fibrillation, unspecified Category: Medical Code(s): I48.91 - Unspecified atrial fibrillation (5) LLL pneumonia: Status: Acute Category: Medical Code(s): J18.9 - Pneumonia, unspecified organism (6) Parapneumonic effusion: Status: Acute Category: Medical Code(s): J18.9 - Pneumonia, unspecified organism; J91.8 - Pleural effusion in other conditions classified elsewhere (7) Hypoxic respiratory failure: Status: Acute Category: Medical Code(s): J96.91 - Respiratory failure, unspecified with hypoxia (8) COPD (chronic obstructive pulmonary disease): Status: Acute Category: Medical Code(s): J44.9 - Chronic obstructive pulmonary disease, unspecified (9) Severe protein-calorie malnutrition: Status: Acute Category: Medical Code(s): E43 - Unspecified severe protein-calorie malnutrition (10) Chronic Kidney Disease: Status: Acute Qualifiers: Chronic kidney disease stage: unspecified stage Qualified Code(s): N18.9 - Chronic kidney disease, unspecified Category: Medical Code(s): N18.9 - Chronic kidney disease, unspecified (11) Cirrhosis: Status: Acute Qualifiers: Hepatic cirrhosis type: unspecified hepatic cirrhosis Ascites presence: with ascites Qualified Code(s): K74.60 - Unspecified cirrhosis of liver; R18.8 - Other ascites Category: Medical Code(s): K74.60 - Unspecified cirrhosis of liver (12) Pacemaker: Status: Chronic Category: Medical Code(s): Z95.0 - Presence of cardiac pacemaker Plan Kareen Mallory is an 89-year-old female who presented from [facility] for worsening shortness of breath. Was just admitted and discharged a week ago with pneumonia secondary to rhinovirus. Imaging in the ER showed complete collapse of left lung with large pleural effusion. On 3 to 4 L oxygen at this time. Family at bedside. Continues to require inpatient management. Pulmonology to evaluate in the morning and discuss thoracentesis. Problems addressed as follows: #Sepsis #Left lower lobe community-acquired pneumonia #COPD exacerbation #Pleural effusion #Weakness ? Presented with increased shortness of breath. Per review of CT had large left-sided pleural effusion with near-total collapse of left lung. ? Pulmonology consulted, s/p thoracentesis with ~950 mL blood-tinged pleural fluid output. No evidence of pleural infection or empyema. ? Pulmonology followed up on CT chest, shows worsening opacities which may actually represent pulmonary edema. Continue daily Bumex, continue spironolactone. - Continue supplemental oxygen as needed for goal sats greater 90%. Stable on 1 to 2 L with improved sensation of dyspnea after thoracentesis. - Continue cefepime 2 g, pulmonology recommends discontinuing vancomycin. Recommend cefepime for total of 7 days, can be discharged with IM ertapenem upon discharge. ? Respiratory culture unremarkable, blood culture and pleural fluid NGTD. - WBC stable at 11.0. No signs of sepsis. - Wean supplemental oxygen as needed for goal sats greater 90%. Currently on 1-2L. #Hospital-acquired delirium ? Patient has been somnolent throughout the day, is now back to baseline this afternoon. ABG, CXR reassuring. ? Continue supportive therapy, anticipate discharge home to hospice to help reduce ongoing delirium. # Acute on chronic HFpEF #A-fib ? Continue Bumex 1 mg twice daily, continue spironolactone 50 mg daily - BUN elevated at 5500 on admission. Troponins negative x 3 ? Continue metoprolol titrate 25 mg twice daily, Xarelto. #CKD stage III #Uremia ? Creatinine 1.3, GFR 39. Stable. Significant improvement since last admission after weaning diuretics. #SUMMERS cirrhosis? Stable at this time, identified on ultrasound from 02/14/2024 with nodularity of liver. Continue home lactulose. No signs of ascitic fluid. #CAD with stents? Continue Plavix, statin. #Hypothyroidism? Continue home levothyroxine. #Anxiety/depression? Continue home sertraline. Full code Holding anticoagulation in the setting of planned thoracentesis Cardiac diet
[2025-04-12 20:51] LABS: POC Glucose,Bedside 293 (70-110)
[2025-04-12] MEDS: APAP/HYDROCODONE 325MG/7.5MG TAB 1 TAB PO (20:52)
[2025-04-12] MEDS: ATORVASTATIN 40MG TABLET 40 MG PO (20:52)
[2025-04-12] MEDS: INSULIN GLARGINE 100 UNITS/ML 3ML FLEXPEN 15 UNIT SUBCUT (20:53)
[2025-04-12] MEDS: PANTOPRAZOLE 40MG TABLET 40 MG PO (21:01)
[2025-04-13] VITALS: BP 112/54; PULSE 88; RESP 19; TEMP 37.1; O2SAT 96; O2SAT 97
[2025-04-13] MEDS: LEVALBUTEROL 1.25MG/3ML NEB 1.25 MG IH ×3 (00:17→11:16)
[2025-04-13] MEDS: MORPHINE 2MG/ML SYRINGE 2 MG IV (00:56)
[2025-04-13 04:00] VITALS: BP 120/70; PULSE 96; RESP 17; TEMP 36.7; O2SAT 94; BMI 28.5
[2025-04-13 05:23] LABS: POC Glucose,Bedside 144 (70-110)
[2025-04-13 05:51] VITALS: PULSE 75; PULSE 78; O2SAT 98
[2025-04-13] MEDS: CEFEPIME HCL 2 GM in 0.9 % SODIUM CHLORIDE 100 ML IV (06:05)
[2025-04-13] MEDS: LEVOTHYROXINE 50MCG (0.05MG) TAB 50 MCG PO (06:05)
[2025-04-13 06:24] LABS: Hematocrit 27.7 % (37.0-47.0); Hemoglobin 8.8 g/dL (12.2-16.2); Immature Granulocytes % 0.8 %; Mean Corpuscular HGB Conc 31.8 g/dL (31.8-35.4); Mean Corpuscular Hemoglobin 27.5 pg (27.0-31.2); Mean Corpuscular Volume 86.6 fl (81-99); Nucleated Red Blood Cells % 0 %; Platelet Count 154 K/mm3 (142-424); Red Blood Count 3.20 M/mm3 (4.20-5.40); Red Cell Distribution Width-SD 54.8 fL; White Blood Count 7.7 K/mm3 (4.8-10.8)
[2025-04-13 06:44] LABS: Alanine Aminotransferase 15 U/L (12-78); Albumin Level 3.3 g/dl (3.5-5.0); Albumin/Globulin Ratio 1.0 (1.1-1.8); Alkaline Phosphatase 155 U/L (38-126); Anion Gap 18.3 mEq/L (5-15); Aspartate Amino Transferase 29 U/L (14-36); Bilirubin,Total 1.0 mg/dl (0.2-1.3); Blood Urea Nitrogen 48 mg/dl (7-17); Calcium 8.8 mg/dl (8.4-10.2); Carbon Dioxide 25 mmol/L (22.0-30.0); Chloride 97 mmol/L (98-107); Creatinine Clearance Estimated 33 mL/min (50-200); Creatinine,Serum 1.40 mg/dl (0.52-1.04); Estimated Glomerular Filt Rate 36 ml/min (>60); GFR (African American) 43 ML/MIN (>60); Globulin 3.2 g/dL (1.3-3.2); Glucose 133 mg/dl (74-100); Potassium 4.3 mmoL/L (3.5-5.1); Sodium 136 mmol/L (136-145); Total Protein,Serum 6.5 g/dl (6.3-8.2)
[2025-04-13 08:00] VITALS: BP 91/60; PULSE 85; RESP 18; TEMP 36.7; O2SAT 99
--- NOTE | 2025-04-13 08:34 | P.PN_ITS ---
Subjective *Date: 04/13/25 *Time: 09:18 Interval history: No acute respiratory events overnight. Patient admits continued improvement in her respiratory symptoms. Pulmonology Exam Inpatient Vital signs and Labs for Last 24 Hours: Temp Pulse Resp BP Pulse Ox O2 Del Method O2 Flow Rate 98.1 F 75 17 120/70 98 Nasal Cannula 1 04/13/25 04:00 04/13/25 05:51 04/13/25 04:00 04/13/25 04:00 04/13/25 05:51 04/13/25 06:50 04/13/25 06:50 Laboratory Results - last 24 hr 04/12/25 16:30: ABG pH 7.44, ABG pCO2 33.3 L, ABG pO2 94.4, ABG HCO3 21.9 L, ABG Total CO2 22.9 L, ABG O2 Saturation 97, ABG Base Excess -2.3 04/12/25 20:44: POC Glucose 293 H 04/13/25 05:15: WBC 7.7 D, RBC 3.20 L, Hgb 8.8 L, Hct 27.7 L, MCV 86.6, MCH 27.5, MCHC 31.8, RDW 17.2, Plt Count 154, MPV 11.1 H, Neut % (Auto) 71.2, Lymph % (Auto) 13.6, [place] % (Auto) 11.3 H, Eos % (Auto) 2.6, Baso % (Auto) 0.5, Neut # (Auto) 5.5, Lymph # (Auto) 1.1, [place] # (Auto) 0.9, Eos # (Auto) 0.2, Baso # (Auto) 0.0, Sodium 136, Potassium 4.3, Chloride 97 L, Carbon Dioxide 25, Anion Gap 18.3 H, BUN 48 H, Creatinine 1.40 H, Estimated Creat Clear 33, Estimated GFR 36 L, Est GFR ( Amer) 43 L, Glucose 133 H D, Calcium 8.8, Total Bilirubin 1.0, AST 29, ALT 15, Alkaline Phosphatase 155 H, Total Protein 6.5, Albumin 3.3 L, Globulin 3.2, Albumin/Globulin Ratio 1.0 L 04/13/25 05:16: POC Glucose 144 H I & O for Labs for Last 24 Hours: Intake & Output 04/10/25 04/11/25 04/12/25 04/13/25 23:59 23:59 23:59 23:59 Intake Total 1060 / 1060 820 / 1270 570 / 570 Output Total 500 / 500 1100 / 1700 1625 / 1825 200 / 200 Balance 560 / 560 -280 / -430 -1055 / -1255 -200 / -200 Weight 155 lb 3.2 oz 166 lb 11.2 oz 162 lb 9.6 oz 161 lb 3.2 oz Microbiology Reports for the Last 24 Hours: Microbiology 04/07/25 21:39 Blood Blood Culture - Final NO GROWTH AFTER 5 DAYS 04/07/25 21:29 Blood Blood Culture - Final NO GROWTH AFTER 5 DAYS 04/09/25 10:40 Pleural Fluid Gram Stain - Final 04/09/25 10:40 Pleural Fluid Body Fluid Culture - Preliminary NO GROWTH AFTER 72 HOURS 04/08/25 09:50 Sputum - Expectorated Sputum Gram Stain - Final 04/08/25 09:50 Sputum - Expectorated Sputum Sputum Culture - Final Yeast Assessment and Plan *Assessment and plan (1) Hypoxic respiratory failure: Status: Acute Category: Medical Code(s): J96.91 - Respiratory failure, unspecified with hypoxia (2) Pleural effusion, bilateral: Status: Acute Category: Medical Code(s): J90 - Pleural effusion, not elsewhere classified (3) LLL pneumonia: Status: Acute Category: Medical Code(s): J18.9 - Pneumonia, unspecified organism (4) Pneumonia: Status: Acute Category: Medical Code(s): J18.9 - Pneumonia, unspecified organism Plan Ms. Mallory is a 89-year-old female recently seen in the hospital when admitted for A-fib RVR pneumonia heart failure exacerbation discharged to [facility] on levofloxacin presented to the hospital again today with worsening respiratory distress pulmonary was called for further evaluation. Blood and sputum cultures from most recent admission no growth. CTA on this admission large left pleural effusion along with adjacent atelectas is. The previously noted left lower lobe consolidative changes again noted. Small right pleural effusion adjacent atelectasis also noted. Spiculated nodule along the right major fissure. The note noted effusions are not apparent on her CT abdomen from her most recent admission, did not see any ascites. The spiculated nodule not clearly visualized on her CT chest from January 2025 owing to large right pleural effusion. Prior history of large-volume paracentesis. CT abdomen from March 2024 did not reported any abnormal liver finding. Currently receiving vancomycin and cefepime for hospital-acquired pneumonia On initial examination moderate respiratory distress. On 1-2 L nasal cannula oxygen supplementation. Decreased breath sounds left lung loredo. Bilateral 3+ lower extremity edema. Status post left-sided thoracentesis, removed 950 cc fluid. Blood-tinged pleural fluid, not concerning for hemothorax at this point of time. Other pleural fluid studies pending. Stain no organisms seen. Chest x-ray postthoracentesis improving effusion, worsening left upper lobe infiltrates concerning for reexpansion pulmonary edema status post diuresis. Follow repeat chest x-ray. CT chest from today reviewed, continue to show predominant left upper lobe groundglass opacities. The previously noted left lower lobe airspace disease improving. She received 1 mg IV Bumex yesterday. Nasal MRSA PCR negative. Blood sputum and pleural fluid cultures no growth so far. Pleural fluid studies likely transudative effusion. Repeat chest x-ray from 04/11/25 improving left upper lobe pulmonary infiltrates Interval update: No acute respiratory vents overnight. Stable oxygen requirements. Venous blood blood gas from yesterday did not show any evidence of/hypercarbic respiratory failure. Sputum culture growing yeast. No need for initiation of antifungals at this point of time. Will closely monitor her clinical status especially in setting of her improving oxygen formation improving airspace disease findings on her repeat CT scan postthoracentesis. Chest x-ray from this morning, continued improvement in the noted airspace disease. Plan: Follow-up with repeat chest x-ray Continue oxygen supplementation only as needed to maintain O2 saturation goal of 90% and above. Wean as tolerated. Continue cefepime, antibiotics can be weaned to levofloxacin to complete a total of 10-day course Continue Xopenex 4 times daily scheduled Continue oxygen supplementation to maintain O2 saturation goal of 90% and above Volume optimization as per primary team and cardiology Management of SUMMERS cirrhosis as per primary team. No ascitic fluid noted on this admission. Previously had large-volume paracentesis. # Thank you for involving pulmonary in this patient care. Will follow the patient in pulmonary clinic 2 weeks post discharge with a chest x-ray PA lateral.
--- NOTE | 2025-04-13 08:36 | XR_ITS ---
FINAL REPORT CLINICAL HISTORY: PNM COMPARISON: 04/12/2025 FINDINGS: There is stable left lower lobe opacity compatible with pneumonia. Small left pleural effusion is identified. The right lung is clear. There is a tiny right pleural effusion. There is no pneumothorax. Mediastinum is unremarkable. Heart size is normal. IMPRESSION: No significant change. Reviewed, Interpreted and Dictated by Alessandro Burrell MD Transcribed by Neda Francisco Authenticated and [facility]
[2025-04-13] MEDS: SODIUM BICARBONATE 650MG TABLET 325 MG PO (09:56)
[2025-04-13] MEDS: SPIRONOLACTONE 25MG TABLET 50 MG PO (09:56)
[2025-04-13] MEDS: APAP/HYDROCODONE 325MG/7.5MG TAB 1 TAB PO ×2 (09:56→14:15)
[2025-04-13] MEDS: SERTRALINE 100MG TABLET 100 MG PO (09:57)
[2025-04-13] MEDS: CLOPIDOGREL 75MG TAB 75 MG PO (09:57)
[2025-04-13] MEDS: BUMETANIDE 1 MG TABLET PO (09:57)
[2025-04-13] MEDS: ARTIFICIAL TEARS SOLN 15ML BOTTLE OP (09:58)
[2025-04-13] MEDS: FLUTICASONE PROP 50MCG NASAL SPRAY 16GM 1 SPRAY NS (09:58)
[2025-04-13] MEDS: INSULIN GLARGINE 100 UNITS/ML 3ML FLEXPEN 15 UNIT SUBCUT (09:59)
[2025-04-13] MEDS: METOPROLOL TARTRATE 50MG TABLET 50 MG PO (10:02)
[2025-04-13 10:40] LABS: Microscopic, Urine URINE MICROSCOPIC (MICROSCOPIC)
[2025-04-13 10:43] LABS: Bilirubin,Urine Negative (Negative); Color,Urine YELLOW (Yellow); Glucose,Urine (UA) Negative (Negative); Ketones,Urine Negative (Negative); Leukocyte Esterase,Urine 1+ (Negative); PH,Urine 6.0 (5.0-8.5); Protein,Urine 1+ (Negative); Specific Gravity, Urine 1.015 (1.005-1.030); Urobilinogen,Urine 0.2 EU/dl (0.2)
[2025-04-13 10:55] LABS: Bacteria,Urine 1+ /lpf; RBC,Urine Occasional #/hpf (0-3); Squamous Epithelial Cell,Urine Occasional #/hpf (0-5); WBC,Urine Occasional #/hpf (0-3)
[2025-04-13 11:16] VITALS: PULSE 84; PULSE 86; O2SAT 95
--- NOTE | 2025-04-13 11:57 | EXP.DC.SUM ---
General Admission date:: 04/07/25 HPI HPI HPI: Patient is a 89-year-old female with past medical history of COPD GERD, diabetes mellitus, CKD, cirrhosis of liver, hypertension hyperlipidemia paroxysmal atrial fibrillation on Xarelto CAD who presents to the hospital due to complaint of shortness of breath. Patient currently lives at [facility] facility. Reportedly patient has been also utilizing oxygen at [facility] facility. Hospital Course Hospital Course Hospital Course: Kareen Mallory is an 89-year-old female who presented from [facility] for worsening shortness of breath. Was just admitted and discharged a week ago with pneumonia secondary to rhinovirus. Imaging in the ER showed complete collapse of left lung with large pleural effusion. On 3 to 4 L oxygen at this time. Family at bedside. Continues to require inpatient management. Pulmonology to evaluate in the morning and discuss thoracentesis. Problems addressed as follows: #Sepsis #Left lower lobe community-acquired pneumonia #COPD exacerbation #Pleural effusion #Weakness ? Presented with increased shortness of breath. Per review of CT had large left-sided pleural effusion with near-total collapse of left lung. ? Pulmonology consulted, s/p thoracentesis with ~950 mL blood-tinged pleural fluid output. No evidence of pleural infection or empyema. ? Pulmonology followed up on CT chest, shows worsening opacities which may actually represent pulmonary edema. - Continue supplemental oxygen as needed for goal sats greater 90%. Stable on 1 to 2 L with improved sensation of dyspnea after thoracentesis. ?Clinically improved with IV cefepime, vancomycin, Bumex diuresis. Pulmonology recommend cefepime for total of 7 days. ? Respiratory culture unremarkable, blood culture and pleural fluid NGTD. ? Extensively discussed with patient and family at bedside regarding patient's clinical decline over the past 6 months requiring multiple hospitalizations for pneumonia, HFpEF/cirrhosis exacerbation. Unfortunately, patient continues to decline. Readmission given multiple comorbidities including CKD, Roberts cirrhosis, CAD with stents. Ultimately, family decided to pursue hospice care at home. Discharged in stable condition with hospice with 4 more days of levofloxacin. #Hospital-acquired delirium ?Waxing and waning in mentation, improved day of discharge. # Acute on chronic HFpEF #A-fib ? Bumex 2 mg daily, continue spironolactone 50 mg daily - BUN elevated at 5500 on admission. Troponins negative x 3 ? Continue metoprolol titrate 25 mg twice daily, Xarelto. #CKD stage III #Uremia ? Creatinine 1.3, GFR 39. Stable. Significant improvement since last admission after weaning diuretics. #ROBERTS cirrhosis? Stable at this time, identified on ultrasound from 02/14/2024 with nodularity of liver. Continue home lactulose. No signs of ascitic fluid. #CAD with stents? Continue Plavix, statin. #Hypothyroidism? Continue home levothyroxine. #Anxiety/depression? Continue home sertraline. Total time spent on discharge: 34 minutes on chart review, counseling, documentation, and direct care with patient. Exam Data for Last 24 hours Vital signs and Labs for Last 24 Hours: Temp Pulse Resp BP Pulse Ox O2 Del Method O2 Flow Rate 98.1 F 86 18 91/60 L 95 Nasal Cannula 1 04/13/25 08:00 04/13/25 11:16 04/13/25 08:00 04/13/25 08:00 04/13/25 11:16 04/13/25 11:16 04/13/25 11:16 Laboratory Results - last 24 hr 04/12/25 16:30: ABG pH 7.44, ABG pCO2 33.3 L, ABG pO2 94.4, ABG HCO3 21.9 L, ABG Total CO2 22.9 L, ABG O2 Saturation 97, ABG Base Excess -2.3 04/12/25 20:44: POC Glucose 293 H 04/13/25 05:15: WBC 7.7 D, RBC 3.20 L, Hgb 8.8 L, Hct 27.7 L, MCV 86.6, MCH 27.5, MCHC 31.8, RDW 17.2, Plt Count 154, MPV 11.1 H, Neut % (Auto) 71.2, Lymph % (Auto) 13.6, [place] % (Auto) 11.3 H, Eos % (Auto) 2.6, Baso % (Auto) 0.5, Neut # (Auto) 5.5, Lymph # (Auto) 1.1, [place] # (Auto) 0.9, Eos # (Auto) 0.2, Baso # (Auto) 0.0, Sodium 136, Potassium 4.3, Chloride 97 L, Carbon Dioxide 25, Anion Gap 18.3 H, BUN 48 H, Creatinine 1.40 H, Estimated Creat Clear 33, Estimated GFR 36 L, Est GFR ( Amer) 43 L, Glucose 133 H D, Calcium 8.8, Total Bilirubin 1.0, AST 29, ALT 15, Alkaline Phosphatase 155 H, Total Protein 6.5, Albumin 3.3 L, Globulin 3.2, Albumin/Globulin Ratio 1.0 L 04/13/25 05:16: POC Glucose 144 H 04/13/25 10:25: Urine Color Yellow, Urine Appearance Clear, Urine pH 6.0, Ur Specific [place] 1.015, Urine Protein 1+ A, Urine Glucose (UA) Negative, Urine Ketones Negative, Urine Blood 1+ A, Urine Nitrate Negative, Urine Bilirubin Negative, Urine Urobilinogen 0.2, Ur Leukocyte Esterase 1+ A, Urine RBC Occasional, Urine WBC Occasional, Ur Squamous Epith Cells Occasional, Urine Bacteria 1+, Urine Yeast 1+ I & O for Last 24 hours: Intake & Output 04/10/25 04/11/25 04/12/25 04/13/25 23:59 23:59 23:59 23:59 Intake Total 1060 / 1060 820 / 1270 570 / 570 340 / 340 Output Total 500 / 500 1100 / 1700 1625 / 1825 500 / 500 Balance 560 / 560 -280 / -430 -1055 / -1255 -160 / -160 Weight 70.398 kg 75.614 kg 73.754 kg 73.119 kg Microbiology Reports for the Last 24 Hours: Microbiology 04/09/25 10:40 Pleural Fluid Gram Stain - Final 04/09/25 10:40 Pleural Fluid Body Fluid Culture - Preliminary NO GROWTH AFTER 4 DAYS 04/07/25 21:39 Blood Blood Culture - Final NO GROWTH AFTER 5 DAYS 04/07/25 21:29 Blood Blood Culture - Final NO GROWTH AFTER 5 DAYS 04/08/25 09:50 Sputum - Expectorated Sputum Gram Stain - Final 04/08/25 09:50 Sputum - Expectorated Sputum Sputum Culture - Final Yeast Constitutional Constitutional: no acute distress *Routine HEENT Exam Head: Present normocephalic Eye: Present EOMI and PERRL ENT: Present mucous membranes moist *Routine Neck Exam Neck: Present supple; Absent lymphadenopathy *Routine Respiratory Exam Respiratory: Present CTA bilaterally *Routine Cardiovascular Exam Cardiovascular: Present RRR *Routine Abdominal Exam Abdominal: Present soft and normoactive bowel sounds; Absent tenderness *Routine Extremities Exam Extremities: Present edema; Absent cyanosis or clubbing *Routine Skin Exam Skin: Present warm; Absent rash *Routine Neurological Exam Neurological: Present alert and oriented X3 Results Data Completed and Pending Labs on day of discharge: Labs from last 24 hours 04/13/25 04/13/25 04/13/25 10:25 05:16 05:15 WBC 7.7 D RBC 3.20 L Hgb 8.8 L Hct 27.7 L MCV 86.6 MCH 27.5 MCHC 31.8 RDW 17.2 Plt Count 154 MPV 11.1 H Neut % (Auto) 71.2 Lymph % (Auto) 13.6 [place] % (Auto) 11.3 H Eos % (Auto) 2.6 Baso % (Auto) 0.5 Neut # (Auto) 5.5 Lymph # (Auto) 1.1 [place] # (Auto) 0.9 Eos # (Auto) 0.2 Baso # (Auto) 0.0 ABG pH ABG pCO2 ABG pO2 ABG HCO3 ABG Total CO2 ABG O2 Saturation ABG Base Excess Sodium 136 Potassium 4.3 Chloride 97 L Carbon Dioxide 25 Anion Gap 18.3 H BUN 48 H Creatinine 1.40 H Estimated Creat Clear 33 Estimated GFR 36 L Est GFR ( Amer) 43 L Glucose 133 H D POC Glucose 144 H Calcium 8.8 Total Bilirubin 1.0 AST 29 ALT 15 Alkaline Phosphatase 155 H Total Protein 6.5 Albumin 3.3 L Globulin 3.2 Albumin/Globulin Ratio 1.0 L Urine Color Yellow Urine Appearance Clear Urine pH 6.0 Ur Specific [place] 1.015 Urine Protein 1+ A Urine Glucose (UA) Negative Urine Ketones Negative Urine Blood 1+ A Urine Nitrate Negative Urine Bilirubin Negative Urine Urobilinogen 0.2 Ur Leukocyte Esterase 1+ A Urine RBC Occasional Urine WBC Occasional Ur Squamous Epith Cells Occasional Urine Bacteria 1+ Urine Yeast 1+ 04/12/25 04/12/25 20:44 16:30 WBC RBC Hgb Hct MCV MCH MCHC RDW Plt Count MPV Neut % (Auto) Lymph % (Auto) [place] % (Auto) Eos % (Auto) Baso % (Auto) Neut # (Auto) Lymph # (Auto) [place] # (Auto) Eos # (Auto) Baso # (Auto) ABG pH 7.44 ABG pCO2 33.3 L ABG pO2 94.4 ABG HCO3 21.9 L ABG Total CO2 22.9 L ABG O2 Saturation 97 ABG Base Excess -2.3 Sodium Potassium Chloride Carbon Dioxide Anion Gap BUN Creatinine Estimated Creat Clear Estimated GFR Est GFR ( Amer) Glucose POC Glucose 293 H Calcium Total Bilirubin AST ALT Alkaline Phosphatase Total Protein Albumin Globulin Albumin/Globulin Ratio Urine Color Urine Appearance Urine pH Ur Specific [place] Urine Protein Urine Glucose (UA) Urine Ketones Urine Blood Urine Nitrate Urine Bilirubin Urine Urobilinogen Ur Leukocyte Esterase Urine RBC Urine WBC Ur Squamous Epith Cells Urine Bacteria Urine Yeast Preliminary micro results at discharge 04/09/25 10:40 Body Fluid Culture - Preliminary Pleural Fluid NO GROWTH AFTER 4 DAYS DS: Diagnosis Discharge Diagnosis (1) Hypoxic respiratory failure: Status: Acute Code(s): J96.91 - Respiratory failure, unspecified with hypoxia (2) Pleural effusion, bilateral: Status: Acute Code(s): J90 - Pleural effusion, not elsewhere classified (3) LLL pneumonia: Status: Acute Code(s): J18.9 - Pneumonia, unspecified organism (4) Pneumonia: Status: Acute Code(s): J18.9 - Pneumonia, unspecified organism Meds Home Medications and Allergies Home Medications ?Medication ?Instructions ?Recorded ?Confirmed ?Type levothyroxine 50 mcg tablet 50 mcg PO DAILY 10/13/24 04/08/25 History mirabegron 25 mg tablet,extended 25 mg PO DAILY 10/13/24 04/08/25 History release 24 hr (Myrbetriq) omeprazole 40 mg capsule,delayed 40 mg PO DAILY 10/13/24 04/08/25 History release rivaroxaban 15 mg tablet (Xarelto) 15 mg PO HS 10/13/24 04/08/25 History sertraline 100 mg tablet 100 mg PO DAILY 10/13/24 04/08/25 History lactulose 20 gram/30 mL oral 10 g (15 mL) PO BID 30 days #900 mL 10/18/24 04/08/25 Rx solution polyethylene glycol 3350 17 17 g PO DAILY #510 grams 10/18/24 04/08/25 Rx gram/dose oral powder (Miralax) sodium bicarbonate 325 mg tablet 325 mg PO BID 30 days #60 tabs 10/18/24 04/08/25 Rx insulin glargine 100 unit/mL (3 15 unit (0.15 mL) SQ BID 60 days 11/14/24 04/08/25 Rx mL) subcutaneous pen (Lantus #18 mL Solostar U-100 Insulin) budesonide 160 mcg-glycopyr 9 2 inh inhalation BID #10.7 grams 01/16/25 04/08/25 Rx mcg-formot 4.8 mcg/actuation HFA inhaler (Breztri Aerosphere) clopidogrel 75 mg tablet 75 mg PO DAILY 01/17/25 04/08/25 History insulin lispro 100 unit/mL 0 sliding scale dose SQ TID 01/17/25 04/08/25 History subcutaneous pen (Humalog KwikPen (U-100) Insulin) lidocaine 4 % topical patch 1 patch topical DAILY 01/17/25 04/08/25 History (Lidocaine Pain Relief) mecobalamin (vitamin B12) 5,000 5,000 mcg PO DAILY 01/17/25 04/08/25 History mcg chewable tablet artificial 1 drp Eye-Left TID 02/27/25 04/08/25 History tears(yxoeoyw-pdwiyvlg-rbbuwtx) 0.1 %-0.3 %-0.2 % eye drops atorvastatin 40 mg tablet 40 mg PO HS 02/27/25 04/08/25 History ferrous gluconate 324 mg (38 mg 324 mg PO BID 02/27/25 04/08/25 History iron) tablet fluticasone propionate 50 1 spray intranasal DAILY 02/27/25 04/08/25 History mcg/actuation nasal spray,suspension guaifenesin 100 mg/5 mL oral 200 mg PO Q6HP PRN Cough 02/27/25 04/08/25 History liquid (Daksha-Tussin) prochlorperazine maleate 5 mg 2.5 mg (1/2 x 5 mg) PO TID PRN 02/27/25 04/08/25 Rx tablet (Compazine) nausea and vomiting #30 tabs levalbuterol HCl 1.25 mg/3 mL 1.25 mg (3 mL) inhalation BID 30 03/30/25 04/08/25 Rx solution for nebulization days #180 mL metoclopramide HCl 5 mg tablet 5 mg PO AC 30 days #90 tabs 03/30/25 04/08/25 Rx metoprolol tartrate 50 mg tablet 50 mg PO BID 30 days #60 tabs 03/30/25 04/08/25 Rx hydrocodone 7.5 mg-acetaminophen 1 tab PO QID pain #120 tabs 04/03/25 04/08/25 Rx 325 mg tablet bumetanide 1 mg tablet 2 mg (2 x 1 mg) PO DAILY 30 days 04/13/25 Rx #60 tabs levofloxacin 750 mg tablet 750 mg PO Q48H 4 days #2 tabs 04/13/25 Rx spironolactone 25 mg tablet 50 mg (2 x 25 mg) PO DAILY 30 days 04/13/25 Rx #60 tabs New Prescriptions to Start Prescriptions: bumetanide Richard Munoz levofloxacin Alexander,Richard spironolactone Richard Munoz Allergies Allergy/AdvReac Type Severity Reaction Status Date / Time methylprednisolone AdvReac Mild Elevated Verified 04/04/25 10:12 glucose Discharge Plan Disposition Patient Disposition: Hospice - Home Condition: Fair Discharge Order Discharge Orders: Discharge Order (Routine); Ordered 04/13/25 Ordered By: Richard Munoz Follow up Plan Follow up with: Connie Bates MD [Physician, Pulmonology] - 04/25/25 1:00 pm Prescriptions/Medication Reconciliation: New spironolactone 25 mg Tablet 50 mg PO DAILY 30 Days Qty: 60 0RF bumetanide 1 mg Tablet 2 mg PO DAILY 30 Days Qty: 60 0RF levofloxacin 750 mg tablet 750 mg PO Q48H 4 Days Qty: 2 0RF Continued atorvastatin 40 mg tablet 40 mg PO HS fluticasone propionate 50 mcg/actuation spray,suspension 1 spray intranasal DAILY Rx Instructions: administer into each nostril artificial tear(aaprm-zjo-gbb) 0.1-0.3-0.2 % drops 1 drp Eye-Left TID ferrous gluconate 324 mg (38 mg iron) tablet 324 mg PO BID guaifenesin [Daksha-Tussin] 100 mg/5 mL liquid 200 mg PO Q6HP PRN (Reason: Cough) prochlorperazine maleate [Compazine] 5 mg tablet 2.5 mg PO TID PRN (Reason: nausea and vomiting) Qty: 30 0RF insulin glargine [Lantus Solostar U-100 Insulin] 100 unit/mL (3 mL) insulin pen 15 unit SQ BID 60 Days Qty: 18 4RF Breztri Aerosphere 160-9-4.8 mcg/actuation HFA aerosol inhaler 2 inh inhalation BID Qty: 10.7 2RF hydrocodone-acetaminophen 7.5-325 mg tablet 1 tab PO QID Qty: 120 0RF sertraline 100 mg tablet 100 mg PO DAILY Patient Comments: TAKE ONE TABLET BY MOUTH EVERY DAY omeprazole 40 mg capsule,delayed release(DR/EC) 40 mg PO DAILY Patient Comments: TAKE ONE CAPSULE BY MOUTH EVERY DAY levothyroxine 50 mcg tablet 50 mcg PO DAILY Xarelto 15 mg tablet 15 mg PO HS Patient Comments: TAKE ONE TABLET BY MOUTH EVERY NIGHT AT BEDTIME --TAKE WITH FOOD-- mirabegron [Myrbetriq] 25 mg tablet extended release 24 hr 25 mg PO DAILY Patient Comments: TAKE ONE TABLET BY MOUTH EVERY DAY FOR BLADDER lactulose 20 gram/30 mL Solution 10 g PO BID 30 Days Qty: 900 0RF polyethylene glycol 3350 [Miralax] 17 gram/dose powder 17 g PO DAILY Qty: 510 0RF sodium bicarbonate 325 mg tablet 325 mg PO BID 30 Days Qty: 60 0RF lidocaine [Lidocaine Pain Relief] 4 % Adhesive Patch,Medicated 1 patch TOPICAL DAILY clopidogrel 75 mg tablet 75 mg PO DAILY insulin lispro [Humalog KwikPen Insulin] 100 unit/mL insulin pen 0 sliding scale dose SQ TID mecobalamin (vitamin B12) 5,000 mcg tablet,chewable 5,000 mcg PO DAILY levalbuterol HCl 1.25 mg/3 mL Solution For Nebulization 1.25 mg inhalation BID 30 Days Qty: 180 0RF metoclopramide HCl 5 mg tablet 5 mg PO AC 30 Days Qty: 90 0RF metoprolol tartrate 50 mg Tablet 50 mg PO BID 30 Days Qty: 60 0RF Problem Reconciliation Problems Reviewed?: Yes Patient Discharge Instructions Patient Instructions: DI for Thoracentesis, DI for Surgical Site Infection, DI for Respiratory Failure, DI for Hypoxia, DI for Pleural Effusion, Stop Light Pneumonia, Stop Light Infection Print Language: Greenlandic Providers Primary Care Provider: Alexy Richardson Admit Provider: Armando Greer Attending Provider: Armando Greer
[2025-04-13] MEDS: humaLOG 100 UNITS/ML 10ML VIAL (SSI) SUBCUT (12:20)
[2025-04-13 16:48] LABS: POC Glucose,Bedside 276 (70-110)
[2025-04-17 12:42] LABS: POC Glucose,Bedside 240 (70-110)
--- NOTE | 2025-04-22 19:09 | EXP.EVENT.NO ---
Date of service: 04/13/2025 [facility] conversation #Sepsis #Left lower lobe community-acquired pneumonia #COPD exacerbation #Pleural effusion #Weakness ? Presented with increased shortness of breath. Per review of CT had large left-sided pleural effusion with near-total collapse of left lung. ? Pulmonology consulted, s/p thoracentesis with ~950 mL blood-tinged pleural fluid output. No evidence of pleural infection or empyema. ? Pulmonology followed up on CT chest, shows worsening opacities which may actually represent pulmonary edema. - Continue supplemental oxygen as needed for goal sats greater 90%. Stable on 1 to 2 L with improved sensation of dyspnea after thoracentesis. ?Clinically improved with IV cefepime, vancomycin, Bumex diuresis. Pulmonology recommend cefepime for total of 7 days. ? Respiratory culture unremarkable, blood culture and pleural fluid NGTD. ? Extensively discussed with patient and family at bedside regarding patient's clinical decline over the past 6 months requiring multiple hospitalizations for pneumonia, HFpEF/cirrhosis exacerbation. Unfortunately, patient continues to decline. Readmission given multiple comorbidities including CKD, Roberts cirrhosis, CAD with stents. Ultimately, family decided to pursue hospice care at home. Discharged in stable condition with hospice with 4 more days of levofloxacin.
== END 2025-04-13 14:43 | disposition hospice, home (50) | DRG 193 ==
LOC: ER 21:42 → 2ND 22:42
PROVIDERS: Internal Medicine; Internal Medicine Pulmonary Disease; Student in an Organized Health Care Education/Training Program; Admitting Provider Internal Medicine Adolescent Medicine; Emergency Provider Student in an Organized Health Care Education/Training Program; PCP Family Medicine; Visit Provider Internal Medicine Adolescent Medicine
DX: J18.9 Pneumonia, unspecified organism (principal); I50.33 Acute on chronic diastolic (congestive) heart failure; J96.01 Acute respiratory failure with hypoxia; J91.8 Pleural effusion in other conditions classified elsewhere; R18.8 Other ascites; J44.0 Chronic obstructive pulmonary disease with (acute) lower respiratory infection; I13.0 Hypertensive heart and chronic kidney disease with heart failure and stage 1 through stage 4 chronic kidney disease, or unspecified chronic kidney disease; J44.1 Chronic obstructive pulmonary disease with (acute) exacerbation; E78.2 Mixed hyperlipidemia; B34.8 Other viral infections of unspecified site; I48.0 Paroxysmal atrial fibrillation; E11.22 Type 2 diabetes mellitus with diabetic chronic kidney disease; N18.30 Chronic kidney disease, stage 3 unspecified; K21.9 Gastro-esophageal reflux disease without esophagitis; I25.10 Atherosclerotic heart disease of native coronary artery without angina pectoris; K75.81 Nonalcoholic steatohepatitis (NASH); F32.A Depression, unspecified; E03.9 Hypothyroidism, unspecified; F41.9 Anxiety disorder, unspecified; R41.0 Disorientation, unspecified; Z95.0 Presence of cardiac pacemaker; Z79.899 Other long term (current) drug therapy; Z79.4 Long term (current) use of insulin; Z79.890 Hormone replacement therapy; Z79.01 Long term (current) use of anticoagulants; Z88.8 Allergy status to other drugs, medicaments and biological substances; Z95.5 Presence of coronary angioplasty implant and graft; Z79.02 Long term (current) use of antithrombotics/antiplatelets
CPT/HCPCS: 32555; 36415; 71045; 71046; 71250; 80048; 80053; 80202; 81001; 82042; 82803; 82945; 82962; 83615; 83735; 83880; 84145; 84484; 85025; 87040; 87070; 87081; 87086; 87205; 87449; 87636; 87899; 89051; 94640; 94761; 97163; 97166; 97530; J0131; J0692; J1939; J2270; J2405; J2543; J2550; J3372; J3475; J7614

== ENCOUNTER 2025-04-14 07:17 | Emergency (ER) | payer MEDICARE, MEDICAID, SELFPAY ==
--- OUTSIDE RECORDS SUMMARY | 2025-04-14 07:23 | XMS_ITS ---
Author Name Auto Generated, Auto Generated Organization [facility] ators Address [address] [place] [address] Phone [phone] Care Team Providers Care Parcel Post Clerk Name Role Phone Hu Miller Unavailable [phone] Jewels Olvera Unavailable Functional Status Mental Status Allergies and Intolerances Encounters Medications Problems No Known Problems Social History Vital Signs Reason for Referral
[2025-04-14 07:24] VITALS: BP 113/57; PULSE 88; RESP 19; TEMP 37.2; O2SAT 99; BMI 24.3
--- OUTSIDE RECORDS SUMMARY | 2025-04-14 07:25 | XMS_ITS | Data Portability ---
Author Organization [facility] SALINA Marcial ADMIN Address [address] [place] [id number] Assessment No assessment recorded. Plan of Treatment Reminders Order Date Submit Date Provider Last Modified By Organization Details Last Modified Time Details Appointments None recorded. Lab cytology, peritoneal fluid [address] (Scheduling), [address] [facility] [address], [place], [address], 4 15:48:33 cell count w/ diff, body fluid [address] (Scheduling), [address] [place] [address] [address], [place], [address], 4 15:48:33 Referral None recorded. Procedures abdominal paracentesi s; with imaging guidance (PROC) - Standing order for paracentesi s. See fluid orders. Standing order for cell ct w/diff with every subsequent paracentesi s. Cytology just with the first. 2023 024 [email or web address] [facility] Scheduling, [address] [facility] [address], [place], [address], 4 14:39:19 Surgeries None recorded. Imaging None recorded. Medication Orders Xifaxan 550 mg tablet 2023 024 [facility], [address] [facility] [address], [place], [id number], 4 14:28:23 Patient TargetsNo targets recorded. Patient Instructions Encounter Date Encounter Id Patient Instructions Last Modified By Organization Details Last Modified Time 06/19/2024 [id number] Follow up as planned with Dr. Beverly. Return to clinic as needed. [email or web address] Not available 06/19/2024 16:53:35 Reason for Referral None Reported. Results Created Date Observation Date Name Description Value Unit Range Abnormal Flag Note LastModifiedBy Organization Detail LastModifiedTime 06/23/20 24 06/23/2024 US, abdom en No observ ation record ed. [email or web address], [place], [id number], 06/23/2024 14:23:48 08/27/20 24 08/27/2024 CT, head + brain , w/o contr ast No observ ation record ed. [place] [id number] [facility] [address], [place], [address], 09/06/2024 16:53:12 08/27/20 24 08/27/2024 CT, cervi rj spine , w/o contr ast No observ ation record ed. [facility] [address], [place], [address], 09/06/2024 16:53:33 08/27/20 24 08/27/2024 XR, chest , 2 view No observ ation record ed. [facility] [address], [place], [address], 09/06/2024 16:54:44 08/27/20 24 08/27/2024 CT, abdom en + pelvi s, w/o contr ast No observ ation record ed. [facility] [address], [place], [address], 09/06/2024 16:54:29 Result Notes None recorded. Medical [...] Available No t Available [employer] [address] [place] USE DIRECTED FOR continuous glucose monitoring (OR [...] Address Organization Details Last Updated DateTime 4 [address].7 4 g 25.6 kg/m2 160.02 cm 97.2 [degF] 96 % 96 % 110 /min 110 /min 133/75 mm[Hg] Tamia Gonzales [place] - [facility] - [place] 4 14:25:40 Social History None recorded. Functional Status None recorded. Mental Status None recorded. Family History Nothing Reported. Medical History No medical history recorded. Gynecological HistoryNo gynecological history recorded. Obstetrics History GPAL:G 0 P 0 0 0 0 Past Encounters Encounter ID Performer Location Encounter Start Date Encounter Closed Date Diagnosis/Indication Diagnosis SNOMED-CT Code Diagnosis ICD10 Code Diagnosis Note [id number] MELLISA YEE NP [facility] [address] [facility] [address] [place] [address] 06/19/2024 14:13:53 06/19/2024 15:23:14 Cirrhosis of liver 65811323 K74.60 # Cirrhosis, decompensa lm by ascites-ci [...] g per day-Avoid alcohol, avoid NSAIDs Ascites 391259525 R18.8 Orders for standing paracentes is placed.Con tinue current diuretics as ordered. I have reservatio ns changing diuretics with kidney function. Hepatic encephalopathy 95116632 K76.82 Start xifaxan as ordered. If not [...] PLUS (MEDICARE REPLACEMENT HMO) [id number] Kareen Mallory [id number] 68 Kareen Mallory Notes Date Note Type [...] earlier this year by a physician at [facility]. The majority of Kareen's health care providers are within [facility]. She says Kareen used alcohol heavily when she was younger, does not drink alcohol now. She was seen in the ED at [facility] on 05/24/[address] [...] is clear/yellow. She does not have a accountant clerk. Her BNP was 4150. Cardiology at [facility] is following. She had a pacemaker placed in 2016, stents placed in October 2022. She is on Xarelto. PT/INR elevated. She denies symptoms of GI bleed, no jaundice or pruritus. Her daughter has noticed cognitive impairment recently, stating Kareen has been more forgetful. She has an appointment with Dr. Beverly at [facility] on 07/25/24. Her PCP recommended she be seen at our clinic today. She has been seen by Dr. Beverly in the past. MELLISA YEE, WALLY [address], [place], [address], [facility] - [place] - [place] 06/19/2024 16:53:55 OBGyn Episode No OBEpisode recorded.
--- OUTSIDE RECORDS SUMMARY | 2025-04-14 07:25 | XMS_ITS | Data Portability ---
Author Organization [facility] CRIS [place] CLOSED Address [address] [place] [address] Care Team Providers Care Lvn Lpn Name Role Phone [facility] Referring Provider [phone] Assessment No assessment recorded. Plan of Treatment Reminders Order Date Submit Date Provider Last Modified By Organization Details Last Modified Time Details Appointments None recorded. Lab urinalysis panel, auto 2023 024 [email or web address] [facility] [address], [facility], [place], [address], 09:37:00 Referral None recorded. Procedures None recorded. Surgeries None recorded. Imaging None recorded. Medication Orders None recorded. Patient TargetsNo targets recorded. Patient Instructions Encounter Date Encounter Id Patient Instructions Last Modified By Organization Details Last Modified Time 03/02/2024 [id number] From the best I can tell Mrs. [...] Clean Catch Not Available [facility] [address] [facility], [place], [address], 03/02/2024 13:52:45 03/02/20 24 03/02/2024 urina lysis panel , auto Unknown Analyte Yellow Not Available [facility] Urology [facility] [address] [place], [address], 03/02/2024 13:52:45 03/02/20 24 03/02/2024 urina lysis panel , auto Unknown Analyte Clear Not Available [facility] U[facility] [address] [place], [address], 03/02/2024 13:52:45 03/02/20 24 03/02/2024 urina lysis panel , auto Unknown Analyte 1.010 Not Available [facility] [address] [place], [address], 03/02/2024 13:52:45 03/02/20 24 03/02/2024 urina lysis panel , auto Unknown Analyte 6.0 Not Available [facility] [address] [facility], [place], [address], 03/02/2024 13:52:45 03/02/20 24 03/02/2024 urina lysis panel , auto Unknown Analyte Negati ve Not Available [facility] [address] [place], [address], 03/02/2024 13:52:45 03/02/20 24 03/02/2024 urina lysis panel , auto Unknown Analyte Negati ve Not Available [facility] [address] [place], [address], 03/02/2024 13:52:45 03/02/20 24 03/02/2024 urina lysis panel , auto Unknown Analyte Negati ve Not Available [facility] [address] [place], [address], 03/02/2024 13:52:45 03/02/20 24 03/02/2024 urina lysis panel , auto Unknown Analyte 250 mg/dl Not Available [facility] [address] [place], [address], 03/02/2024 13:52:45 03/02/20 24 03/02/2024 urina lysis panel , auto Unknown Analyte Negati ve Not Available [facility] [address] [place], [address], 03/02/2024 13:52:45 03/02/20 24 03/02/2024 urina lysis panel , auto Unknown Analyte Normal Not Available [facility] [address] [place], [address], 03/02/2024 13:52:45 03/02/20 24 03/02/2024 urina lysis panel , auto Unknown Analyte Negati ve Not Available [facility] [address] [place], [address], 03/02/2024 13:52:45 03/02/20 24 03/02/2024 urina lysis panel , auto Unknown Analyte Negati ve Not Available [facility] Urol[facility] [address] [place], [address], 03/02/2024 13:52:45 Result Notes None recorded. Medical Equipment None Reported. Allergies Allergen ID Allergen Name Allergen Category Reaction Reaction Severity Criticality Documentation Date Start Date Code Code System Note Provider Name and Address Organization Details Recorded Time 089397 meloxicam medicatio n Not available Not available Not available 03/02/2024 69469 RxNorm Mariana MARCELINA Cotter [facility] 13:34:08 997411 aspirin medicatio n Not available Not available Not available 03/02/2024 1191 RxNorm Mariana Lee [facility] 4 13:34:12 988962 ibuprofen medicatio n Not available Not available Not available 03/02/2024 5640 RxNorm Mariana Lee [facility] 4 13:34:17 Medications Name Sig Start [...] Available No t Available FreeStyle Kai 2 [place] USE DIRECTED FOR continuous glucose monitoring active [...] Updated DateTime 03/02/2024 160.02 cm 25.3 kg/m2 78853.71 g Mariana Lee [facility] 03/02/2024 [...] SNOMED-CT Code Diagnosis ICD10 Code Diagnosis Note [id number] RAND WHITLOCK MD UROLOGY [facility] [address] [place] [place] [address] 03/02/2024 13:12:03 03/02/2024 14:09:22 Dysuria 35187168 R30.0 Health Concerns Section Related Observation LastModified [...] PLUS (MEDICARE REPLACEMENT HMO) [id number] Kareen Mallory [id number] Kareen Mallory 03/08/2024 2 MEDICAID-[facility] CHOICES - FFS/TRADITIONA L Kareen Mallory [id number] Kareen Mallory Notes Date Note Type Note Provider Name and Address Organization Details Recorded Time 03/02/2024 text/html 88 yo new female is here for her h/o of kidney disease, referred by Dr. gutiérrez. RAND WHITLOCK MD [address] [place] [address], [address], [facility] 03/06/2024 09:37:28 OBGyn Episode No OBEpisode recorded.
--- OUTSIDE RECORDS SUMMARY | 2025-04-14 07:25 | XMS_ITS | Clinical Summary ---
Author Organization Healthcare Address [address] [id number] Care Team Providers Care Gem Cutter Name Role Phone Alexy Rivera MD Primary Care Provider [phone] Allergies No known active allergies Medications atorvastatin [...] Continuous Glucose Sensor (FreeStyle Kai 2 Sensor) [facility] [place] USE DIRECTED 01/24/20 [...] Wellness (AWV) 1935 [facility]-Infant/Child/Adol SDOH Screenings 1935 BZE-TIMAI-37 Vaccine (#1) 1942 [facility]- SDOH Screenings 1955 [...] topic Insurance [place] MEDIC[place] Care Teams Gem Cutter Relationship Specialty Start Date End Date Alexy Rivera MD [address] [place] [address] PCP - General 02/14/21
[2025-04-14 07:30] VITALS: BP 110/64; PULSE 98; RESP 16; O2SAT 100
--- NOTE | 2025-04-14 07:41 | HMH.EDGENADL ---
Discharge Plan Disposition Patient Disposition: Home, Self-Care Condition: Good Prescriptions Prescriptions: No Action atorvastatin 40 mg tablet 40 mg PO HS fluticasone propionate 50 mcg/actuation spray,suspension 1 spray intranasal DAILY Rx Instructions: administer into each nostril artificial tear(wcutj-bgj-tjo) 0.1-0.3-0.2 % drops 1 drp Eye-Left TID ferrous gluconate 324 mg (38 mg iron) tablet 324 mg PO BID guaifenesin [Daksha-Tussin] 100 mg/5 mL liquid 200 mg PO Q6HP PRN (Reason: Cough) prochlorperazine maleate [Compazine] 5 mg tablet 2.5 mg PO TID PRN (Reason: nausea and vomiting) Qty: 30 0RF insulin glargine [Lantus Solostar U-100 Insulin] 100 unit/mL (3 mL) insulin pen 15 unit SQ BID 60 Days Qty: 18 4RF Breztri Aerosphere 160-9-4.8 mcg/actuation HFA aerosol inhaler 2 inh inhalation BID Qty: 10.7 2RF hydrocodone-acetaminophen 7.5-325 mg tablet 1 tab PO QID Qty: 120 0RF sertraline 100 mg tablet 100 mg PO DAILY Patient Comments: TAKE ONE TABLET BY MOUTH EVERY DAY omeprazole 40 mg capsule,delayed release(DR/EC) 40 mg PO DAILY Patient Comments: TAKE ONE CAPSULE BY MOUTH EVERY DAY levothyroxine 50 mcg tablet 50 mcg PO DAILY Xarelto 15 mg tablet 15 mg PO HS Patient Comments: TAKE ONE TABLET BY MOUTH EVERY NIGHT AT BEDTIME --TAKE WITH FOOD-- mirabegron [Myrbetriq] 25 mg tablet extended release 24 hr 25 mg PO DAILY Patient Comments: TAKE ONE TABLET BY MOUTH EVERY DAY FOR BLADDER lactulose 20 gram/30 mL Solution 10 g PO BID 30 Days Qty: 900 0RF polyethylene glycol 3350 [Miralax] 17 gram/dose powder 17 g PO DAILY Qty: 510 0RF sodium bicarbonate 325 mg tablet 325 mg PO BID 30 Days Qty: 60 0RF lidocaine [Lidocaine Pain Relief] 4 % Adhesive Patch,Medicated 1 patch TOPICAL DAILY clopidogrel 75 mg tablet 75 mg PO DAILY insulin lispro [Humalog KwikPen Insulin] 100 unit/mL insulin pen 0 sliding scale dose SQ TID mecobalamin (vitamin B12) 5,000 mcg tablet,chewable 5,000 mcg PO DAILY levalbuterol HCl 1.25 mg/3 mL Solution For Nebulization 1.25 mg inhalation BID 30 Days Qty: 180 0RF metoclopramide HCl 5 mg tablet 5 mg PO AC 30 Days Qty: 90 0RF metoprolol tartrate 50 mg Tablet 50 mg PO BID 30 Days Qty: 60 0RF spironolactone 25 mg Tablet 50 mg PO DAILY 30 Days Qty: 60 0RF bumetanide 1 mg Tablet 2 mg PO DAILY 30 Days Qty: 60 0RF levofloxacin 750 mg tablet 750 mg PO Q48H 4 Days Qty: 2 0RF Referrals Follow up/Referrals: Provider,Referral, MD [Primary Care Provider, Medical] - See instructions Activity Restrictions/Add. Instructions Additional Instructions/Restrictions: You were evaluated in the emergency department today. At this time, we feel that you likely have some mild swelling of your face from sleeping on that side, however there is no concern for infection or allergic reaction based on history and exam at this time. Please follow-up closely with your hospice care team. Return to the emergency department for new or worsening symptoms. Clinical Impressions Clinical Impression: Facial swelling Instructions Patient Instructions: DI for Dependent Edema, DI for Peripheral Edema -- Bilateral Print Language Print Language: Australian Discharge ED Provider: Miley Mccallum General Adult HPI General Chief complaint: Skin/Abscess/Foreign Body Stated complaint: Facial swelling Time Seen by Provider: 04/14/25 07:31 Mode of Arrival: EMS Source of Information: Patient, Relative and EMS Description of Symptoms (Recalled from ER Triage Doc. by RN): Patient arrival via EMS from home with concerns for facial swelling. Patient's daughter at bedside states her cheeks may be a bit swollen. No obvious swelling noted upon assessment. Patient denies complaints. EMS reports patient is on Hospice, presents on 4L NC, reported to be at baseline. Respirations even and unlabored. History of Present Illness HPI narrative: This patient is an 89-year-old female with extensive cardiovascular history including CHF for which she is currently on home hospice presenting with concern for possible facial swelling. Patient's arrives by EMS who provides history. They note that they were called to the scene because the patient had facial swelling. The patient had no concerns or complaints. No other concerns or issues noted such as difficulty breathing, rashes, or swelling otherwise. Patient's daughter arrives and states that the patient is home on hospice at her brother's house and her brother had called EMS for the facial swelling, but upon her arrival she does not think that the patient has significant facial swelling. She notes that she actually looks good as far as swelling goes compared to her most recent baseline and discharge from the hospital. Family noted that she did have some swelling of the right side of her face earlier when she first woke up. Patient notes that she was asleep on that side. Related Data Home Medications ?Medication ?Instructions ?Recorded ?Confirmed levothyroxine 50 mcg tablet 50 mcg PO DAILY 10/13/24 04/08/25 mirabegron 25 mg tablet,extended 25 mg PO DAILY 10/13/24 04/08/25 release 24 hr (Myrbetriq) omeprazole 40 mg capsule,delayed 40 mg PO DAILY 10/13/24 04/08/25 release rivaroxaban 15 mg tablet (Xarelto) 15 mg PO HS 10/13/24 04/08/25 sertraline 100 mg tablet 100 mg PO DAILY 10/13/24 04/08/25 clopidogrel 75 mg tablet 75 mg PO DAILY 01/17/25 04/08/25 insulin lispro 100 unit/mL 0 sliding scale dose SQ TID 01/17/25 04/08/25 subcutaneous pen (Humalog KwikPen (U-100) Insulin) lidocaine 4 % topical patch 1 patch topical DAILY 01/17/25 04/08/25 (Lidocaine Pain Relief) mecobalamin (vitamin B12) 5,000 5,000 mcg PO DAILY 01/17/25 04/08/25 mcg chewable tablet artificial 1 drp Eye-Left TID 02/27/25 04/08/25 tears(wsdyzli-gkadidea-lrukfzx) 0.1 %-0.3 %-0.2 % eye drops atorvastatin 40 mg tablet 40 mg PO HS 02/27/25 04/08/25 ferrous gluconate 324 mg (38 mg 324 mg PO BID 02/27/25 04/08/25 iron) tablet fluticasone propionate 50 1 spray intranasal DAILY 02/27/25 04/08/25 mcg/actuation nasal spray,suspension guaifenesin 100 mg/5 mL oral 200 mg PO Q6HP PRN Cough 02/27/25 04/08/25 liquid (Daksha-Tussin) Previous Rx's ?Medication ?Instructions ?Recorded lactulose 20 gram/30 mL oral 10 g (15 mL) PO BID 30 days #900 mL 10/18/24 solution polyethylene glycol 3350 17 17 g PO DAILY #510 grams 10/18/24 gram/dose oral powder (Miralax) sodium bicarbonate 325 mg tablet 325 mg PO BID 30 days #60 tabs 10/18/24 insulin glargine 100 unit/mL (3 15 unit (0.15 mL) SQ BID 60 days 11/14/24 mL) subcutaneous pen (Lantus #18 mL Solostar U-100 Insulin) budesonide 160 mcg-glycopyr 9 2 inh inhalation BID #10.7 grams 01/16/25 mcg-formot 4.8 mcg/actuation HFA inhaler (Breztri Aerosphere) prochlorperazine maleate 5 mg 2.5 mg (1/2 x 5 mg) PO TID PRN 02/27/25 tablet (Compazine) nausea and vomiting #30 tabs levalbuterol HCl 1.25 mg/3 mL 1.25 mg (3 mL) inhalation BID 30 03/30/25 solution for nebulization days #180 mL metoclopramide HCl 5 mg tablet 5 mg PO AC 30 days #90 tabs 03/30/25 metoprolol tartrate 50 mg tablet 50 mg PO BID 30 days #60 tabs 03/30/25 hydrocodone 7.5 mg-acetaminophen 1 tab PO QID pain #120 tabs 04/03/25 325 mg tablet bumetanide 1 mg tablet 2 mg (2 x 1 mg) PO DAILY 30 days 04/13/25 #60 tabs levofloxacin 750 mg tablet 750 mg PO Q48H 4 days #2 tabs 04/13/25 spironolactone 25 mg tablet 50 mg (2 x 25 mg) PO DAILY 30 days 04/13/25 #60 tabs Allergies Allergy/AdvReac Type Severity Reaction Status Date / Time methylprednisolone AdvReac Mild Elevated Verified 04/04/25 10:12 glucose [facility] Disclaimer: The information contained in this section may have been updated after the patient was seen, as this information can be updated by other users. Medical History Pleural effusion, bilateral Pneumonia Acute respiratory failure with hypoxia Bilateral leg edema Acute on chronic heart failure with preserved ejection fraction (HFpEF) COPD (chronic obstructive pulmonary disease) Major depressive disorder with single episode Heart failure Myocardial infarct, old Pacemaker Hypothyroid Fall Chronic Kidney Disease Splenomegaly Cirrhosis of liver Ascites Seasonal allergies Hyperlipemia Hypertension Aneurysm of splenic artery Acute hyperkalemia Arthritis History of gastroesophageal reflux (GERD) Diabetes mellitus, type 2 History of cataract History of left heart catheterization (LHC) Gastritis PAF (paroxysmal atrial fibrillation) DKA (diabetic ketoacidosis) Lactose intolerance 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 Anemia Cardiac pacemaker in situ SSS (sick sinus syndrome) Coronary artery disease Surgical History Hx of cardiac cath Closed intertrochanteric fracture of left hip (~10/2024) History of esophagogastroduodenoscopy (EGD) Hx of tonsillectomy History of colonoscopy History of hysterectomy History of appendectomy History of cholecystectomy Family History Other Family history of cancer Social History Smoking Status: Former smoker second hand exposure: No alcohol intake: never substance use type: denies use current occupational status: disabled Travel in the last 8 weeks?: None household members: family housing: house caffeine: No Have you lived/traveled outside US in past 30 days?: No Contact w/someone who lives/traveled outside US past 30 days?: No Exposure to someone with infectious disease in past 14 days?: No Do you have a fever (greater than 100.4 F or 38 C)?: No Have you tested positive for COVID-19?: No Exposed to someone with COVID-19 in past 14 days?: No Do you have a sore throat?: No Do you have a cough?: No Do you have any weakness?: No Do you have any diarrhea?: No Are you experiencing any unusual bleeding?: No Do you have any muscle aches/pain?: No Do you have any abdominal pain?: No Are you experiencing loss of taste or smell?: No Other Medical History Have you received the Flu Vaccine for this season: No Have you received the Pneumonia Vaccine: No ROS Obtained: Yes All systems reviewed & no additional complaints except as documented Physical Exam General General appearance: alert and in no apparent distress Head Head exam: atraumatic and normocephalic Eye Eye exam: Present normal appearance, PERRL and EOMI ENT ENT exam: Present normal exam, normal oropharynx, mucous membranes moist and normal external ear exam Neck Neck exam: Present normal inspection, full ROM and trachea midline; Absent tenderness Chest Chest inspection: Present normal inspection and symmetric chest wall rise; Absent tenderness Respiratory Respiratory exam: Present normal lung sounds bilaterally; Absent respiratory distress, wheezes, stridor or accessory muscle use Cardiovascular Cardiovascular exam: Present regular rate and normal rhythm Abdominal Exam Abdominal exam: Present soft; Absent distention, tenderness or guarding Extremities Exam Extremities exam: Present full ROM, normal capillary refill and edema (Mild bilateral lower extremity edema that is symmetric); Absent tenderness Back Exam Back exam: Present normal inspection and full ROM; Absent tenderness Neurological Exam Neurological exam: Present alert, oriented X3 and CN II-XII intact; Absent motor sensory deficit Psychiatric Psychiatric exam: Present normal affect and normal mood Skin Skin exam: Present warm and dry Medical Decision Making Medical Records Medical records reviewed: Yes I reviewed the patient's medical records. Screening: Per USPSTF and CDC recommendations, given the prevalence of disease in our region, it is our hospital?s policy to screen for HIV and viral Hepatitis for all patients aged 18 and over and those with ongoing risk factors. Thomas Inquiry Pt receiving controlled substance: No Vital Signs: 04/14/25 07:24 04/14/25 07:30 Temperature 99 F Temperature Source Oral Pulse Rate 98 H Pulse Rate [Left] 88 Respiratory Rate 19 16 Blood Pressure 110/64 Blood Pressure [Right Arm] 113/57 L Blood Pressure Mean 76 Blood Pressure Mean [Right Arm] 75 Blood Pressure Source [Right Arm] Automatic Cuff 02 Sat by Pulse Oximetry 99 100 Oxygen Delivery Method Nasal Cannula Nasal Cannula Oxygen Flow Rate (LPM) 4 4 Lab Data Lab results reviewed: Yes I reviewed the patient's lab results. Medical Decision Narrative: In summary, this patient is a 89-year-old female presenting to the Emergency Department for evaluation of facial swelling. Differential diagnoses considered include but are not limited to allergic reaction, dependent edema from sleeping on that side, cellulitis. Ruling out the most morbid conditions drove assessment. It should be noted patient's history includes extensive cardiac history including advanced heart failure for which she is currently on hospice. This complicates all aspects of care by increasing patient's risk for morbidity. I reviewed patient's past medical records and noted recent admission for acute respiratory failure with hypoxia in the setting of CHF and pneumonia. Patient was discharged home on hospice yesterday. On exam, the patient is well-appearing sitting upright no acute distress with normal vitals on cardiac telemetry. She has some mild puffiness of the right side of her face when compared to the left, but it is not impressive at all. No redness, warmth, or skin changes otherwise. She said that she was asleep on that side, so is likely dependent edema. She has no urticaria, tongue or throat swelling, stridor, wheezing, difficulty breathing, or other concerns. I feel that she does not have any acute life-threatening pathology that requires admission to the hospital or further assessment at this time, as her daughter states that the swelling has essentially gone. Given this, we will discharge her. I do not feel that labs or imaging are indicated as they would not climate change risk assessor. I advised that they notify hospice team and follow-up closely with them. Strict return precautions given Critical Care Critical Care Time Critical Care Time: No
[2025-04-14 07:45] VITALS: PULSE 94; RESP 17; O2SAT 100
--- NOTE | 2025-04-14 07:54 | PC.NURSE ---
EMS notified of need for transportation home.
[2025-04-14 08:00] VITALS: BP 116/64; PULSE 81; RESP 16; O2SAT 100
--- OUTSIDE RECORDS SUMMARY | 2025-04-14 08:24 | XMS_ITS | CCD ---
Author Organization Unknown Care Team Providers Care Director Asset Name Role Phone Unavailable Primary Care Provider Unavailabl e Unavailable Chronic Care Management Unavaila ble Summary Purpose DataExchange Insurance Providers Payer name Policy type / Coverage type Covered constitution party ID Effective Begin Date Effective End Date [facility] [id number] Unknown Unknown Family History Family History data not found Medication Administered No Medication Administered data Reason For Visit No Reason For Visit data Medical Equipment No Medical Equipment data Advance Directives No Advance Directive data
--- OUTSIDE RECORDS SUMMARY | 2025-04-14 08:24 | XMS_ITS | CCD ---
Author Organization Unknown Care Team Providers Care Baller Tender Name Role Phone Unavailable Primary Care Provider Unavailabl e Unavailable Chronic Care Management Unavaila ble Summary Purpose DataExchange Insurance Providers Payer name Policy type / Coverage type Covered libertarian ID Effective Begin Date Effective End Date [facility] [id number] Unknown Unknown Family History Family History data not found Medication Administered No Medication Administered data Reason For Visit No Reason For Visit data Medical Equipment No Medical Equipment data Advance Directives No Advance Directive data
[2025-04-14 08:35] VITALS: BP 118/78; PULSE 79; RESP 19; TEMP 37.2; O2SAT 98
--- NOTE | 2025-04-14 08:35 | PC.NURSE ---
EMS at bedside for transport home.
== END 2025-04-14 08:38 | disposition home or self-care (01) ==
PROVIDERS: Emergency Provider Emergency Medicine
DX: R22.0 Localized swelling, mass and lump, head (principal)
CPT/HCPCS: 99283